=== PATIENT | male | born 1950 | race African-American/Black ===

== ENCOUNTER 2016-03-30 15:48 | Inpatient (IN) | payer MEDICARE, BC ==
[~2016-03-30] VITALS: Ht 175.3 cm; Wt 45.5 kg
[~2016-03-30 15:48] MED LIST: AMLO-145 PO; CLON-429 PO; CLON0.5T4 PO; FURO-110 PO; GABA300C16 PO; IBUP-727 PO; LOSA50TA2 PO; PANT40TA3 PO; QUET25TA26 PO; RISP2TAB93 PO; SULF1TAB7 PO; TAMS-14 PO
[2016-03-30] MEDS ORDERED: SOD CHLORIDE 0.9% 1,000 ML IV STA (15:58)
[2016-03-30 16:58] VITALS: Ht 175.3 cm; Wt 45.5 kg
[2016-03-30] MEDS ORDERED: LORAZEPAM 2 MG INJ IV ONE (17:00)
[2016-03-30 17:07] LABS: HEMATOCRIT 30.4 % (42.0-52.0); HEMOGLOBIN 9.9 g/dl (14.0-18.0); MEAN CORPUSCULAR HEMOGLOBIN 27.6 pg (29.0-33.0); MEAN CORPUSCULAR HGB CONC 32.6 g/dl (32.0-37.0); MEAN CORPUSCULAR VOLUME 84.7 fl (82.0-101.0); MEAN PLATELET VOLUME 8.6 fl (7.4-10.4); PLATELET COUNT 113 10^3/UL (140-440); RED BLOOD COUNT 3.58 10^6/ul (4.70-6.10); RED CELL DISTRIBUTION WIDTH 19.3 % (11.5-14.5); WHITE BLOOD COUNT 6.6 10^3/ul (4.8-10.8)
[2016-03-30 17:13] LABS: ALBUMIN 3.1 g/dl (3.3-4.9); CHLORIDE 97 mmol/L (97-110)
[2016-03-30 17:14] LABS: POTASSIUM 5.1 mmol/L (3.5-5.1); SODIUM 139 mmol/L (135-144)
[2016-03-30 17:15] LABS: INR 1.11; PROTIME 14.3 Sec (12.2-14.2); PT RATIO 1.1
[2016-03-30 17:16] LABS: ALANINE AMINOTRANSFERASE 16 IU/L (13-69); ALBUMIN/GLOBULIN RATIO 0.83; ALKALINE PHOSPHATASE 84 IU/L (42-121); ANION GAP 14 (8-16); ASPARTATE AMINO TRANSFERASE 22 IU/L (15-46); BILIRUBIN,INDIRECT 0.2 mg/dl (0-1.1); BILIRUBIN,TOTAL 0.2 mg/dl (0.2-1.3); BLOOD UREA NITROGEN 24 mg/dl (7-20); CALCIUM 8.9 mg/dl (8.4-10.2); CARBON DIOXIDE 33 mmol/L (21-31); CREATININE 0.42 mg/dl (0.61-1.24); GLUCOSE 74 mg/dl (70-220); TOTAL PROTEIN 6.8 g/dl (6.1-8.1)
[2016-03-30 17:18] LABS: ADD UMIC YES; URINE BILIRUBIN (Dip) NEGATIVE (NEGATIVE); URINE BLOOD (Dip) 1+ (NEGATIVE); URINE COLOR LT. YELLOW (YELLOW); URINE GLUCOSE (Dip) NEGATIVE (NEGATIVE); URINE KETONES (Dip) NEGATIVE (NEGATIVE); URINE LEUKOCYTE ESTERASE (Dip) 3+ (NEGATIVE); URINE NITRITE (Dip) POSITIVE (NEGATIVE); URINE TOTAL PROTEIN (Dip) 1+ (NEGATIVE); URINE UROBILINOGEN (Dip) 4.0 E.U./dL (0.1-1.0)
--- NOTE | 2016-03-30 17:21 | RADRPT ---
PROCEDURE: XR Chest. CLINICAL INDICATION: Abdominal pain. TECHNIQUE: Single frontal view of the chest was obtained COMPARISON: No. FINDINGS: There is atelectasis in the left lower lobe with elevation of the left diaphragm. There is fecal ma terial in the transverse colon which projects to the left heart border. There are infiltrates in th e left hilar area. There is compensatory hyperaeration of the right lung with a tracheostomy tube w ell positioned at T3. The bony elements rarefied with degenerative changes in the thoracic spine. IMPRESSION: 1. There is atelectasis in the lingula and left lower lobe with apparent elevation left diaphragm. Left perihilar infiltrates/atelectasis are also noted. These findings might be associated with a muc ous plug or obstruction due to an obscured mass. Follow-up imaging is recommended to ensure clearin g. 2. Satisfactory positioning of the tracheostomy tube. 3. Osteoarthritis of the thoracic spine. RPTAT:AAJJ Physician Bev Date Time Electronically viewed and signed by Physician Bev on 03/30/2016 17:21 IGOR/
[2016-03-30 17:26] LABS: CONDITION 1; LH ANALYZER COMMENTS 1; SUSPECT 1; UNCORRECTED WBC 7.2 10^3/ul (4.8-10.8)
[2016-03-30 17:29] LABS: TROPONIN-I < 0.012 ng/ml (0.00-0.12)
[2016-03-30 17:34] LABS: BACTERIA,URINE MANY
[2016-03-30 17:36] LABS: SQUAMOUS EPITHELIAL CELL,UR OCCASIONAL
[2016-03-30] MEDS ORDERED: ACET-2047 GTB (17:50)
[2016-03-30] MEDS ORDERED: ACET-141 GTB (17:50)
[2016-03-30] MEDS ORDERED: ASC500 GTB (17:51)
[2016-03-30] MEDS ORDERED: BISA5TAB6 GTB (17:52)
[2016-03-30] MEDS ORDERED: CALC-459 GTB (17:55)
[2016-03-30] MEDS ORDERED: CHLO473M4 MM (17:58)
[2016-03-30] MEDS ORDERED: IPRA3AMP INHALATION (17:59)
[2016-03-30] MEDS ORDERED: CEFEPIME 1GM/50 ML (PMX) 50 ML IVPB ONE (18:00)
[2016-03-30] MEDS ORDERED: LOV30I SC (18:01)
[2016-03-30 18:03] LABS: LYMPHOCYTES # 0.9 10^3/ul (0.8-2.9); MONOCYTE # 0.5 10^3/ul (0.3-0.9); NEUTROPHIL # 5.3 10^3/ul (1.6-7.5)
[2016-03-30] MEDS ORDERED: UDFER GTB (18:03)
[2016-03-30] MEDS ORDERED: FLEETPED PR (18:03)
[2016-03-30 18:04] LABS: ANISOCYTOSIS 2+; HYPOCHROMASIA 1+
[2016-03-30 18:05] LABS: PLATELET ESTIMATE PLT APPEAR ADEQUATE
[2016-03-30] MEDS ORDERED: LACT20SO2 GTB (18:05)
[2016-03-30] MEDS ORDERED: LORA1TAB GTB (18:06)
[2016-03-30] MEDS ORDERED: MULT-105 GTB (18:07)
[2016-03-30] MEDS ORDERED: HYDR-906 GTB (18:09)
[2016-03-30] MEDS ORDERED: AMIN30LI3 GTB (18:10)
[2016-03-30] MEDS ORDERED: PROT946L GTB (18:12)
[2016-03-30] MEDS ORDERED: QUET25TA33 GTB (18:13)
[2016-03-30] MEDS ORDERED: QUET200T27 GTB (18:13)
[2016-03-30] MEDS ORDERED: SENN-53 GTB (18:15)
[2016-03-30] MEDS ORDERED: THIA100T10 GTB (18:15)
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
[2016-03-30 22:25] VITALS: PULSE 79
[2016-03-30] MEDS ORDERED: NA PHOSPHATE/BIPHOS 66.6 ML ENEMA PR PRN (23:30)
[2016-03-30] MEDS ORDERED: HYDROCODONE/APAP (5/325) TAB GTB PRN (23:30)
[2016-03-30] MEDS ORDERED: ACETAMINOPHEN 500 MG TAB PO PRN (23:30)
[2016-03-30] MEDS ORDERED: BISACODYL (EC) 5 MG TAB PO PRN (23:30)
[2016-03-30] MEDS ORDERED: ALBUTEROL/IPRATROPIUM (NEB) 3 ML AMP HHN SCH (23:30)
[2016-03-31] VITALS (13 sets, daily range): BP systolic 91–163; BP diastolic 57–90; PULSE 71–98; RESP 15–25
[2016-03-31] MEDS: CHLORHEXIDINE GLUCONATE 15 ML UD CUP MM SCH ×3 (00:32→21:15)
[2016-03-31] MEDS: FERROUS SULFATE 60 MG/ML 5ML CUP GTB SCH ×3 (00:32→21:15)
[2016-03-31] MEDS: SOD CHLORIDE 0.45% 1,000 ML IV SCH ×2 (00:33→16:10)
[2016-03-31] MEDS: QUETIAPINE 25 MG TAB GTB SCH ×2 (00:33→10:05)
[2016-03-31] MEDS: LORAZEPAM 1 MG TAB GTB SCH ×4 (00:46→17:51)
[2016-03-31] MEDS ORDERED: ALBUTEROL/IPRATROPIUM (NEB) 3 ML AMP HHN PRN (01:30)
[2016-03-31] MEDS: ALBUTEROL/IPRATROPIUM (NEB) 3 ML AMP HHN SCH ×4 (01:48→19:55)
[2016-03-31] MEDS ORDERED: PROTEIN HYDROLYS GTB SCH (09:00)
[2016-03-31] MEDS ORDERED: AMINO ACIDS GTB SCH (09:00)
[2016-03-31] MEDS ORDERED: [UNRECOGNIZED DRUG - OTHER] GTB SCH (09:00)
[2016-03-31] MEDS: LACTULOSE 30ML CUP GTB SCH (10:05)
[2016-03-31] MEDS: ASCORBIC ACID 500 MG TAB GTB SCH (10:05)
[2016-03-31] MEDS: THIAMINE 100 MG TAB GTB SCH (10:05)
[2016-03-31] MEDS: CALCIUM CARBONATE 1.25 GM TAB PO SCH (10:05)
[2016-03-31] MEDS: MULTIVITAMINS/MINERALS TAB PO SCH (10:05)
[2016-03-31] MEDS: ENOXAPARIN 30 MG/0.3 ML SYG SC SCH (10:41)
[2016-03-31] MEDS: CEFEPIME 1GM/50 ML (PMX) 50 ML IVPB SCH (10:47)
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
[2016-03-31] MEDS: ACETAMINOPHEN 325 MG TAB GTB PRN (17:52)
[2016-03-31] MEDS: SENNA TAB GTB SCH (21:15)
[2016-03-31] MEDS: QUETIAPINE 100 MG TAB GTB SCH (21:15)
[2016-04-01] VITALS (12 sets, daily range): BP systolic 83–137; BP diastolic 52–79; PULSE 77–103; RESP 18–24
[2016-04-01] MEDS: LORAZEPAM 1 MG TAB GTB SCH ×4 (00:12→17:50)
[2016-04-01] MEDS: ALBUTEROL/IPRATROPIUM (NEB) 3 ML AMP HHN SCH ×4 (01:28→19:32)
[2016-04-01 06:59] LABS: POTASSIUM 4.1 mmol/L (3.5-5.1)
[2016-04-01 07:02] LABS: CREATININE 0.37 mg/dl (0.61-1.24)
[2016-04-01 07:03] LABS: CALCIUM 8.4 mg/dl (8.4-10.2)
[2016-04-01 07:12] LABS: BASOPHILS % 0.2 % (0.0-2.0); HEMATOCRIT 28.9 % (42.0-52.0); HEMOGLOBIN 9.5 g/dl (14.0-18.0); LYMPHOCYTES # 0.8 10^3/ul (0.8-2.9); LYMPHOCYTES % 12.4 % (15.0-51.0); MEAN CORPUSCULAR HEMOGLOBIN 28.1 pg (29.0-33.0); MEAN CORPUSCULAR HGB CONC 32.9 g/dl (32.0-37.0); MEAN CORPUSCULAR VOLUME 85.5 fl (82.0-101.0); MEAN PLATELET VOLUME 9.3 fl (7.4-10.4); MONOCYTE # 0.7 10^3/ul (0.3-0.9); MONOCYTES % 10.8 % (0.0-11.0); NEUTROPHIL # 5.1 10^3/ul (1.6-7.5); NEUTROPHILS % 76.6 % (39.0-77.0); PLATELET COUNT 243 10^3/UL (140-440); RED BLOOD COUNT 3.38 10^6/ul (4.70-6.10); RED CELL DISTRIBUTION WIDTH 18.5 % (11.5-14.5); UNCORRECTED WBC 6.6 10^3/ul (4.8-10.8); WHITE BLOOD COUNT 6.6 10^3/ul (4.8-10.8)
[2016-04-01 07:23] LABS: CONDITION 1; LH ANALYZER COMMENTS 1
[2016-04-01] MEDS: MULTIVITAMINS/MINERALS TAB PO SCH (09:28)
[2016-04-01] MEDS: LACTULOSE 30ML CUP GTB SCH (09:28)
[2016-04-01] MEDS: QUETIAPINE 25 MG TAB GTB SCH ×2 (09:28→17:50)
[2016-04-01] MEDS: FERROUS SULFATE 60 MG/ML 5ML CUP GTB SCH ×2 (09:28→21:00)
[2016-04-01] MEDS: ASCORBIC ACID 500 MG TAB GTB SCH (09:28)
[2016-04-01] MEDS: CALCIUM CARBONATE 1.25 GM TAB PO SCH (09:28)
[2016-04-01] MEDS: CHLORHEXIDINE GLUCONATE 15 ML UD CUP MM SCH ×2 (09:28→21:00)
[2016-04-01] MEDS: FAMOTIDINE 20 MG TAB PO SCH (09:29)
[2016-04-01] MEDS: THIAMINE 100 MG TAB GTB SCH (09:29)
--- NOTE | 2016-04-01 10:01 | PN ---
Date/Time of Note Date/Time of Note DATE: 04/01/16 TIME: 09:48 Assessment/Plan VTE Prophylaxis VTE Prophylaxis Intervention: LMWH Lines/Catheters IV C[facility]ter Type [facility] Peripheral IV Urinary Cath still in place: No Assessment/Plan Assessment/Plan 1. Urinary tract infection per urinalysis. We will follow up on urine cultures. Obtain blood cultures. Continue the patient on cefepime. Continue IV fluids. 2. Acute encephalopathy secondary to #1. 3. Dehydration. 4. Dislodgement of G-tube, status post insertion of new G-tube. We will restart the feedings, monitor residual. Continue aspiration precautions. 5. Chronic respiratory failure with tracheostomy. Continue tracheostomy care, oxygen and bronchodilators. Continue Lovenox for deep venous thrombosis prophylaxis. Further recommendations based on clinical course. Plan of care discussed with Dr. Colunga. Subjective 24 Hr Interval Summary Free Text/Dictation nad, alert, seems comfortable. dw staff. Eyes: no complaints Respiratory: no complaints Exam/Review of Systems Vital Signs Vitals Vital Signs Date Time Temp Pulse Resp B/P Pulse Ox O2 Delivery O2 Flow Rate FiO2 04/01/16 08:45 98 10.0 60 04/01/16 08:38 93 20 Aerosol T Tube 04/01/16 07:22 98.2 90/52 Intake and Output 03/31/16 03/31/16 04/01/16 15:00 23:00 07:00 Intake Total 900 ml 1100 ml Output Total 200 ml 350 ml Balance 700 ml 750 ml Exam Constitutional: alert, frail Psych: no complaints Eyes: EOMI, PERRL, nl sclera ENMT: nl external ears & nose Neck: non-tender Respiratory: diminished breath sounds Cardiovascular: nl pulses Gastrointestinal: non-tender, soft Musculoskeletal: muscle weakness Neurological: confused Lymph: nontender Results Result Diagram: 04/01/16 0540 04/01/16 0540 Results 24 hrs Laboratory Tests Test 04/01/16 05:40 Anion Gap 12 Basophils # 0.0 Basophils % 0.2 Blood Morphology Comment Blood Urea Nitrogen 19 Calcium Level 8.4 Carbon Dioxide Level 28 Chloride Level 99 Creatinine 0.37 L Eosinophils # 0.0 Eosinophils % 0.0 Glucose Level 165 Hematocrit 28.9 L Hemoglobin 9.5 L Lymphocytes # 0.8 Lymphocytes % 12.4 L Mean Corpuscular Hemoglobin 28.1 L Mean Corpuscular Hemoglobin Concent 32.9 Mean Corpuscular Volume 85.5 Mean Platelet Volume 9.3 Monocytes # 0.7 Monocytes % 10.8 Neutrophils # 5.1 Neutrophils % 76.6 Nucleated Red Blood Cells # 0.0 Nucleated Red Blood Cells % 0.0 Platelet Count 243 # Potassium Level 4.1 Red Blood Count 3.38 L Red Cell Distribution Width 18.5 H Sodium Level 135 White Blood Count 6.6 Medications Medications Current Medications Acetaminophen (Tylenol Tab) 1,000 mg Q8H PRN PO PAIN LEVEL 1-5; Start 03/30/16 at 23:30 Acetaminophen (Tylenol Tab) 650 mg Q6H PRN GTB FEVER >101 Last administered on 03/31/16 17:52; Admin Dose 650 MG; Start 03/30/16 at 23:30 Ascorbic Acid (Vitamin C) 500 mg DAILY GTB Last administered on 03/31/16 10:05 ; Admin Dose 500 MG; Start 03/31/16 at 09:00 Bisacodyl (Dulcolax) 10 mg DAILY PRN PO CONSTIPATION; Start 03/30/16 at 23:30 Chlorhexidine Gluconate (Peridex) 15 ml BID MM Last administered on 03/31/16 21 :15; Admin Dose 15 ML; Start 03/30/16 at 23:30 Enoxaparin Sodium (Lovenox) 30 mg DAILY SC Last administered on 03/31/16 10:41 ; Admin Dose 30 MG; Start 03/31/16 at 09:00 Ferrous Sulfate (Feosol Liquid Cup) 300 mg BID GTB Last administered on 21:15; Admin Dose 300 MG; Start 03/30/16 at 23:30 Acetaminophen/ Hydrocodone Bitart ([place] (5/325)) 3.25 tab Q4 PRN GTB PAIN LEVEL 6-10; Start 03/30/16 at 23:30 Lactulose (Enulose) 20 gm DAILY GTB Last administered on 03/31/16 10:05; Admin Dose 20 GM; Start 03/31/16 at 09:00 Lorazepam (Ativan) 1 mg Q6 GTB Last administered on 04/01/16 05:40; Admin Dose 1 MG; Start 03/31/16 at 00:00 Quetiapine Fumarate (Seroquel) 200 mg HS GTB Last administered on 03/31/16 21: 15; Admin Dose 200 MG; Start 03/31/16 at 21:00 Senna (Senokot) 1 tab QHS GTB Last administered on 03/31/16 21:15; Admin Dose 1 TAB; Start 03/31/16 at 21:00 Sodium Biphosphate/ Sodium Phosphate (Fleet Enema Pediatric) 66.6 ml DAILY PRN [place] CONSTIPATION; Start 03/30/16 at 23:30 Thiamine HCl (Vitamin B1) 100 mg DAILY GTB Last administered on 03/31/16 10:05 ; Admin Dose 100 MG; Start 03/31/16 at 09:00 Calcium Carbonate ([place] Calcium) 1.25 gm DAILY PO Last administered on 03/31/16 10:05; Admin Dose 1.25 GM; Start 03/31/16 at 09:00 Multivitamins/ Minerals 1 tab 1 tab DAILY PO Last administered on 03/31/16 10: 05; Admin Dose 1 TAB; Start 03/31/16 at 09:00 Cefepime HCl 50 ml @ 100 mls/hr DAILY IVPB Last administered on 03/31/16 10:47 ; Admin Dose 100 MLS/HR; Start 03/31/16 at 09:00 Sodium Chloride (1/2 NS) 1,000 ml @ 60 mls/hr [id number] IV Last administered on 03/31/16 16:10; Admin Dose 60 MLS/HR; Start 03/30/16 at 23:30 Albuterol/ Ipratropium (Duoneb) 3 ml Q2H PRN HHN WHEEZING AND SOB; Start at 01:30 Influenza Virus Vaccine (Fluzone) 0.5 ml ONCE ONCE IM* ; Start 04/02/16 at 09:00 ; Stop 04/02/16 at 09:01 Lorazepam (Ativan) 0.5 mg Q6H PRN IV ANXIETY; Start 03/31/16 at 08:00 Famotidine (Pepcid) 20 mg DAILY PO ; Start 04/01/16 at 09:00 Quetiapine Fumarate (Seroquel) 25 mg GTB ; Start 04/01/16 at 09:00 BRENT KENDRICK Apr 01, 2016 09:50
[2016-04-01] MEDS: ENOXAPARIN 30 MG/0.3 ML SYG SC SCH (10:02)
[2016-04-01] MEDS: CEFEPIME 1GM/50 ML (PMX) 50 ML IVPB SCH (10:05)
[2016-04-01] MEDS: ACETAMINOPHEN 325 MG TAB GTB PRN (10:06)
[2016-04-01] MEDS: SOD CHLORIDE 0.45% 1,000 ML IV SCH (10:07)
[2016-04-01] MEDS: SENNA TAB GTB SCH (21:00)
[2016-04-01] MEDS: QUETIAPINE 100 MG TAB GTB SCH (21:00)
[2016-04-02] VITALS (10 sets, daily range): BP systolic 102–194; BP diastolic 67–89; PULSE 86–116; RESP 17–20
[2016-04-02] MEDS: LORAZEPAM 1 MG TAB GTB SCH ×5 (00:13→23:13)
[2016-04-02] MEDS: SOD CHLORIDE 0.45% 1,000 ML IV SCH ×2 (01:30→16:27)
[2016-04-02] MEDS: ALBUTEROL/IPRATROPIUM (NEB) 3 ML AMP HHN SCH ×4 (01:57→20:02)
[2016-04-02] MEDS: LORAZEPAM 2 MG INJ IV PRN (02:46)
[2016-04-02] MEDS ORDERED: INFLUENZA VIRUS VACCINE 0.5 ML (DISPENSING) IM* ONE (09:00)
[2016-04-02] MEDS: FAMOTIDINE 20 MG TAB PO SCH (09:44)
[2016-04-02] MEDS: LACTULOSE 30ML CUP GTB SCH (09:44)
[2016-04-02] MEDS: CHLORHEXIDINE GLUCONATE 15 ML UD CUP MM SCH ×2 (09:44→20:52)
[2016-04-02] MEDS: FERROUS SULFATE 60 MG/ML 5ML CUP GTB SCH ×2 (09:44→20:52)
[2016-04-02] MEDS: MULTIVITAMINS/MINERALS TAB PO SCH (09:45)
[2016-04-02] MEDS: ASCORBIC ACID 500 MG TAB GTB SCH (09:45)
[2016-04-02] MEDS: THIAMINE 100 MG TAB GTB SCH (09:45)
[2016-04-02] MEDS: CEFEPIME 1GM/50 ML (PMX) 50 ML IVPB SCH (09:45)
[2016-04-02] MEDS: CALCIUM CARBONATE 1.25 GM TAB PO SCH (09:45)
[2016-04-02] MEDS: QUETIAPINE 25 MG TAB GTB SCH ×2 (10:00→17:14)
[2016-04-02] MEDS: ENOXAPARIN 30 MG/0.3 ML SYG SC SCH (10:05)
[2016-04-02] MEDS: QUETIAPINE 100 MG TAB GTB SCH ×2 (10:09→20:52)
--- NOTE | 2016-04-02 11:14 | PN ---
Date/Time of Note Date/Time of Note DATE: 04/02/16 TIME: 11:09 Assessment/Plan VTE Prophylaxis VTE Prophylaxis Intervention: SCD's Lines/Catheters IV Catheter Type (from Nrs): Peripheral IV Urinary Cath still in place: Yes Reason Cath still needed: urinary retention Assessment/Plan Chief Complaint/Hosp Course ASSESSMENT AND PLAN: 1. GNR urinary tract infection. Follow up on final urine cultures. Continue the patient on cefepime. Change Rae. If any issues with inserting new Rae arise will ask for urology consult Dr Lauren. 2. Acute encephalopathy secondary to #1, resolved. 3. Dehydration, resolved. 4. Dislodgement of G-tube, status post insertion of new G-tube. We will restart the feedings, monitor residual. Continue aspiration precautions. 5. Chronic respiratory failure with tracheostomy. Continue tracheostomy care, oxygen and bronchodilators. 6. Anemia, check stool for OB. Continue Lovenox for deep venous thrombosis prophylaxis. Further recommendations based on clinical course. Plan of care discussed with Dr. Colunga. Problems: Subjective 24 Hr Interval Summary Free Text/Dictation Patient is comfortable breathing on T-tube with cool aerosol mist via trach, awake, alert, denies pain. Exam/Review of Systems Vital Signs Vitals Vital Signs Date Time Temp Pulse Resp B/P Pulse Ox O2 Delivery O2 Flow Rate FiO2 04/02/16 08:44 105 28 98 Aerosol 12.0 60 04/02/16 07:47 97.9 194/89 Intake and Output 04/01/16 04/01/16 04/02/16 15:00 23:00 07:00 Intake Total 1050 ml 700 ml 700 ml Output Total 250 ml Balance 1050 ml 450 ml 700 ml Exam GENERAL: A well-developed, cachectic male, currently is lethargic but easily arousable, awake, alert to name. HEENT: Head is atraumatic, normocephalic. PERRLA. NECK: Supple. The patient has a tracheostomy at the base of the neck. The patient is currently on tracheostomy to a T-tube with cool aerosol mist. CHEST: The patient's lungs diminished at the bases, scattered rhonchi bilaterally. CARDIOVASCULAR: Normal S1, S2. No murmurs, gallops, clicks, rubs noted. ABDOMEN: Flat, soft, nondistended, nontender. The patient has a G-tube in place. EXTREMITIES: There is no edema, clubbing, cyanosis. Pulses equal bilaterally, 2+. The patient's extremities are contracted. SKIN: The patient has multiple pressure sores present on admission. NEUROLOGIC: The patient is awake, alert and oriented to name and situation. Results Result Diagram: 04/01/1640 04/01/16 0540 Medications Medications Current Medications Acetaminophen (Tylenol Tab) 1,000 mg Q8H PRN PO PAIN LEVEL 1-5; Start 03/30/16 at 23:30 Acetaminophen (Tylenol Tab) 650 mg Q6H PRN GTB FEVER >101 Last administered on 04/01/16 10:06; Admin Dose 650 MG; Start 03/30/16 at 23:30 Ascorbic Acid (Vitamin C) 500 mg DAILY GTB Last administered on 04/02/16 09:45 ; Admin Dose 500 MG; Start 03/31/16 at 09:00 Bisacodyl (Dulcolax) 10 mg DAILY PRN PO CONSTIPATION; Start 03/30/16 at 23:30 Chlorhexidine Gluconate (Peridex) 15 ml BID MM Last administered on 04/02/16 09:44; Admin Dose 15 ML; Start 03/30/16 at 23:30 Enoxaparin Sodium (Lovenox) 30 mg DAILY SC Last administered on 04/02/16 10:05 ; Admin Dose 30 MG; Start 03/31/16 at 09:00 Ferrous Sulfate (Feosol Liquid Cup) 300 mg BID GTB Last administered on 09:44; Admin Dose 300 MG; Start 03/30/16 at 23:30 Acetaminophen/ Hydrocodone Bitart ([place] (5/325)) 3.25 tab Q4 PRN GTB PAIN LEVEL 6-10; Start 03/30/16 at 23:30 Lactulose (Enulose) 20 gm DAILY GTB Last administered on 04/02/16 09:44; Admin Dose 20 GM; Start 03/31/16 at 09:00 Lorazepam (Ativan) 1 mg Q6 GTB Last administered on 04/02/16 05:48; Admin Dose 1 MG; Start 03/31/16 at 00:00 Quetiapine Fumarate (Seroquel) 200 mg HS GTB Last administered on 04/02/16 10: 09; Admin Dose 200 MG; Start 03/31/16 at 21:00 Senna (Senokot) 1 tab QHS GTB Last administered on 04/01/16 21:00; Admin Dose 1 TAB; Start 03/31/16 at 21:00 Sodium Biphosphate/ Sodium Phosphate (Fleet Enema Pediatric) 66.6 ml DAILY PRN [place] CONSTIPATION; Start 03/30/16 at 23:30 Thiamine HCl (Vitamin B1) 100 mg DAILY GTB Last administered on 04/02/16 09:45 ; Admin Dose 100 MG; Start 03/31/16 at 09:00 Calcium Carbonate (Oyster Shell Calcium) 1.25 gm DAILY PO Last administered on 04/02/16 09:45; Admin Dose 1.25 GM; Start 03/31/16 at 09:00 Multivitamins/ Minerals 1 tab 1 tab DAILY PO Last administered on 04/02/16 09: 45; Admin Dose 1 TAB; Start 03/31/16 at 09:00 Cefepime HCl 50 ml @ 100 mls/hr DAILY IVPB Last administered on 04/02/16 09: 45; Admin Dose 100 MLS/HR; Start 03/31/16 at 09:00 Sodium Chloride (1/2 NS) 1,000 ml @ 60 mls/hr [id number] IV Last administered on 04/02/16 01:30; Admin Dose 60 MLS/HR; Start 03/30/16 at 23:30 Albuterol/ Ipratropium (Duoneb) 3 ml Q2H PRN HHN WHEEZING AND SOB; Start at 01:30 Lorazepam (Ativan) 0.5 mg Q6H PRN IV ANXIETY Last administered on 04/02/16 02: 46; Admin Dose 0.5 MG; Start 03/31/16 at 08:00 Famotidine (Pepcid) 20 mg DAILY PO Last administered on 04/02/16 09:44; Admin Dose 20 MG; Start 04/01/16 at 09:00 Quetiapine Fumarate (Seroquel) 25 mg GTB Last administered on 04/02/16 10:00; Admin Dose 25 MG; Start 04/01/16 at 09:00 SHELBY BUNCH Apr 02, 2016 11:14
[2016-04-02] MEDS: SENNA TAB GTB SCH (20:52)
[2016-04-03] VITALS (13 sets, daily range): BP systolic 108–138; BP diastolic 63–85; PULSE 71–120; RESP 15–20
[2016-04-03] MEDS: ALBUTEROL/IPRATROPIUM (NEB) 3 ML AMP HHN SCH ×4 (01:33→20:20)
[2016-04-03] MEDS: LORAZEPAM 1 MG TAB GTB SCH ×3 (05:24→17:18)
[2016-04-03 07:20] LABS: ADD SCAN DIFF NO
[2016-04-03 07:29] LABS: BASOPHILS % 0.6 % (0.0-2.0); EOSINOPHILS # 0.1 10^3/ul (0.0-0.5); EOSINOPHILS % 1.5 % (0.0-7.0); HEMATOCRIT 26.7 % (42.0-52.0); HEMOGLOBIN 8.4 g/dl (14.0-18.0); LYMPHOCYTES # 0.9 10^3/ul (0.8-2.9); LYMPHOCYTES % 23.7 % (15.0-51.0); MEAN CORPUSCULAR HEMOGLOBIN 27.3 pg (29.0-33.0); MEAN CORPUSCULAR HGB CONC 31.5 g/dl (32.0-37.0); MEAN CORPUSCULAR VOLUME 86.9 fl (82.0-101.0); MEAN PLATELET VOLUME 8.9 fl (7.4-10.4); MONOCYTE # 0.4 10^3/ul (0.3-0.9); MONOCYTES % 10.7 % (0.0-11.0); NEUTROPHIL # 2.4 10^3/ul (1.6-7.5); NEUTROPHILS % 63.5 % (39.0-77.0); PLATELET COUNT 207 10^3/UL (140-440); RED BLOOD COUNT 3.07 10^6/ul (4.70-6.10); RED CELL DISTRIBUTION WIDTH 18.8 % (11.5-14.5); WHITE BLOOD COUNT 3.8 10^3/ul (4.8-10.8)
[2016-04-03 07:36] LABS: POTASSIUM 4.4 mmol/L (3.5-5.1)
[2016-04-03 07:38] LABS: CREATININE 0.31 mg/dl (0.61-1.24)
[2016-04-03 07:39] LABS: CALCIUM 8.4 mg/dl (8.4-10.2)
[2016-04-03] MEDS: CALCIUM CARBONATE 1.25 GM TAB PO SCH (08:29)
[2016-04-03] MEDS: FERROUS SULFATE 60 MG/ML 5ML CUP GTB SCH ×2 (08:29→21:29)
[2016-04-03] MEDS: CHLORHEXIDINE GLUCONATE 15 ML UD CUP MM SCH ×2 (08:29→21:29)
[2016-04-03] MEDS: LACTULOSE 30ML CUP GTB SCH (08:29)
[2016-04-03] MEDS: FAMOTIDINE 20 MG TAB PO SCH (08:29)
[2016-04-03] MEDS: ASCORBIC ACID 500 MG TAB GTB SCH (08:29)
[2016-04-03] MEDS: THIAMINE 100 MG TAB GTB SCH (08:29)
[2016-04-03] MEDS: CEFEPIME 1GM/50 ML (PMX) 50 ML IVPB SCH (08:30)
[2016-04-03] MEDS: QUETIAPINE 25 MG TAB GTB SCH ×2 (08:39→17:18)
[2016-04-03] MEDS: ENOXAPARIN 30 MG/0.3 ML SYG SC SCH (08:47)
[2016-04-03] MEDS: MULTIVITAMINS/MINERALS TAB PO SCH (08:51)
[2016-04-03 10:04] LABS: MAGNESIUM 1.8 mg/dl (1.7-2.5)
[2016-04-03 10:48] LABS: THYROID STIMULATING HORMONE 1.52 MIU/L (0.465-4.680)
[2016-04-03] MEDS: SOD CHLORIDE 0.45% 1,000 ML IV SCH (10:50)
--- NOTE | 2016-04-03 12:03 | PN ---
Date/Time of Note Date/Time of Note DATE: 04/03/16 TIME: 12:01 Assessment/Plan VTE Prophylaxis VTE Prophylaxis Intervention: LMWH Lines/Catheters [facility] Peripheral IV Urinary Cath still in place: Yes Assessment/Plan Assessment/Plan 1. Urinary tract infection per urinalysis. We will follow up on urine cultures. Obtain blood cultures. Continue the patient on cefepime. Continue IV fluids. 2. Acute encephalopathy secondary to #1. 3. Dehydration. 4. Dislodgement of G-tube, status post insertion of new G-tube. We will restart the feedings, monitor residual. Continue aspiration precautions. 5. Chronic respiratory failure with tracheostomy. Continue tracheostomy care, oxygen and bronchodilators. 6. Asymptomatic Tachycardia - cardiology consult appreciated- Dr Espitia informed - fu Echo Continue Lovenox for deep venous thrombosis prophylaxis. Further recommendations based on clinical course. Plan of care discussed with Dr. Colunga. Subjective 24 Hr Interval Summary Constitutional: requiring O2 Eyes: no complaints ENT: no complaints Respiratory: no complaints Cardiovascular: no complaints Gastrointestinal: no complaints Genitourinary: no complaints Musculoskeletal: no complaints Skin: no complaints Neurologic: no complaints Endocrine: no complaints Lymphatic: no complaints Psychological: no complaints Immunologic: no complaints Exam/Review of Systems Vital Signs Vitals Vital Signs Date Time Temp Pulse Resp B/P Pulse Ox O2 Delivery O2 Flow Rate FiO2 04/03/16 11:50 97.9 75 18 132/85 100 04/03/16 10:18 Aerosol 8.0 35 Intake and Output 04/02/16 04/02/16 04/03/16 14:59 22:59 06:59 Intake Total 50 ml 700 ml 600 ml Output Total 350 ml 450 ml Balance 50 ml 350 ml 150 ml Exam Constitutional: alert, other Psych: nl mood/affect Eyes: EOMI, PERRL, nl sclera ENMT: nl external ears & nose, other (trach intact) Neck: non-tender Respiratory: clear to auscultation Cardiovascular: nl pulses Gastrointestinal: non-tender, soft Extremities: normal pulses Neurological: other Skin: other Lymph: nontender Results Result Diagram: 04/03/16 0622 04/03/16 0622 Results 24 hrs Laboratory Tests Test 04/03/16 06:22 Anion Gap 8 Basophils # 0.0 Basophils % 0.6 Blood Morphology Comment Blood Urea Nitrogen 12 Calcium Level 8.4 Carbon Dioxide Level 32 H Chloride Level 101 Creatinine 0.31 L Eosinophils # 0.1 Eosinophils % 1.5 Glucose Level 92 Hematocrit 26.7 L Hemoglobin 8.4 L Lymphocytes # 0.9 Lymphocytes % 23.7 Magnesium Level 1.8 Mean Corpuscular Hemoglobin 27.3 L Mean Corpuscular Hemoglobin Concent 31.5 L Mean Corpuscular Volume 86.9 Mean Platelet Volume 8.9 Monocytes # 0.4 Monocytes % 10.7 Neutrophils # 2.4 Neutrophils % 63.5 Nucleated Red Blood Cells # 0.0 Nucleated Red Blood Cells % 0.0 Platelet Count 207 Potassium Level 4.4 Red Blood Count 3.07 L Red Cell Distribution Width 18.8 H Sodium Level 137 Thyroid Stimulating Hormone (TSH) 1.520 White Blood Count 3.8 #L Medications Medications Current Medications Acetaminophen (Tylenol Tab) 1,000 mg Q8H PRN PO PAIN LEVEL 1-5; Start 03/30/16 at 23:30 Acetaminophen (Tylenol Tab) 650 mg Q6H PRN GTB FEVER >101 Last administered on 04/01/16 10:06; Admin Dose 650 MG; Start 03/30/16 at 23:30 Ascorbic Acid (Vitamin C) 500 mg DAILY GTB Last administered on 04/03/16 08:29 ; Admin Dose 500 MG; Start 03/31/16 at 09:00 Bisacodyl (Dulcolax) 10 mg DAILY PRN PO CONSTIPATION; Start 03/30/16 at 23:30 Chlorhexidine Gluconate (Peridex) 15 ml BID MM Last administered on 04/03/16 08:29; Admin Dose 15 ML; Start 03/30/16 at 23:30 Enoxaparin Sodium (Lovenox) 30 mg DAILY SC Last administered on 04/03/16 08:47 ; Admin Dose 30 MG; Start 03/31/16 at 09:00 Ferrous Sulfate (Feosol Liquid Cup) 300 mg BID GTB Last administered on 08:29; Admin Dose 300 MG; Start 03/30/16 at 23:30 Acetaminophen/ Hydrocodone Bitart ([place] (5/325)) 3.25 tab Q4 PRN GTB PAIN LEVEL 6-10; Start 03/30/16 at 23:30 Lactulose (Enulose) 20 gm DAILY GTB Last administered on 04/03/16 08:29; Admin Dose 20 GM; Start 03/31/16 at 09:00 Lorazepam (Ativan) 1 mg Q6 GTB Last administered on 04/03/16 05:24; Admin Dose 1 MG; Start 03/31/16 at 00:00 Quetiapine Fumarate (Seroquel) 200 mg HS GTB Last administered on 04/02/16 20: 52; Admin Dose 200 MG; Start 03/31/16 at 21:00 Senna (Senokot) 1 tab QHS GTB Last administered on 04/02/16 20:52; Admin Dose 1 TAB; Start 03/31/16 at 21:00 Sodium Biphosphate/ Sodium Phosphate (Fleet Enema Pediatric) 66.6 ml DAILY PRN [place] CONSTIPATION; Start 03/30/16 at 23:30 Thiamine HCl (Vitamin B1) 100 mg DAILY GTB Last administered on 04/03/16 08:29 ; Admin Dose 100 MG; Start 03/31/16 at 09:00 Calcium Carbonate (Oyster Shell Calcium) 1.25 gm DAILY PO Last administered on 04/03/16 08:29; Admin Dose 1.25 GM; Start 03/31/16 at 09:00 Multivitamins/ Minerals 1 tab 1 tab DAILY PO Last administered on 04/03/16 08: 51; Admin Dose 1 TAB; Start 03/31/16 at 09:00 Cefepime HCl 50 ml @ 100 mls/hr DAILY IVPB Last administered on 04/03/16 08: 30; Admin Dose 100 MLS/HR; Start 03/31/16 at 09:00 Sodium Chloride (1/2 NS) 1,000 ml @ 60 mls/hr [id number] IV Last administered on 04/02/16 16:27; Admin Dose 60 MLS/HR; Start 03/30/16 at 23:30 Albuterol/ Ipratropium (Duoneb) 3 ml Q2H PRN HHN WHEEZING AND SOB; Start at 01:30 Lorazepam (Ativan) 0.5 mg Q6H PRN IV ANXIETY Last administered on 04/02/16 02: 46; Admin Dose 0.5 MG; Start 03/31/16 at 08:00 Famotidine (Pepcid) 20 mg DAILY PO Last administered on 04/03/16 08:29; Admin Dose 20 MG; Start 04/01/16 at 09:00 Quetiapine Fumarate (Seroquel) 25 mg GTB Last administered on 04/03/16 08:39; Admin Dose 25 MG; Start 04/01/16 at 09:00 BRENT KENDRICK Apr 03, 2016 12:03
[2016-04-03] MEDS: LORAZEPAM 2 MG INJ IV PRN ×2 (14:00→20:08)
[2016-04-03 15:16] LABS: BASOPHILS % 0.2 % (0.0-2.0); EOSINOPHILS # 0.1 10^3/ul (0.0-0.5); EOSINOPHILS % 1.3 % (0.0-7.0); HEMOGLOBIN 10.8 g/dl (14.0-18.0); LYMPHOCYTES # 0.7 10^3/ul (0.8-2.9); LYMPHOCYTES % 16.3 % (15.0-51.0); MEAN CORPUSCULAR HEMOGLOBIN 27.1 pg (29.0-33.0); MEAN CORPUSCULAR HGB CONC 31.7 g/dl (32.0-37.0); MEAN CORPUSCULAR VOLUME 85.4 fl (82.0-101.0); MEAN PLATELET VOLUME 7.8 fl (7.4-10.4); MONOCYTE # 0.4 10^3/ul (0.3-0.9); MONOCYTES % 9.7 % (0.0-11.0); NEUTROPHIL # 3.2 10^3/ul (1.6-7.5); NEUTROPHILS % 72.5 % (39.0-77.0); PLATELET COUNT 264 10^3/UL (140-440); RED BLOOD COUNT 3.98 10^6/ul (4.70-6.10); RED CELL DISTRIBUTION WIDTH 18.8 % (11.5-14.5); UNCORRECTED WBC 4.4 10^3/ul (4.8-10.8); WHITE BLOOD COUNT 4.4 10^3/ul (4.8-10.8)
[2016-04-03 15:36] LABS: CONDITION 1; LH ANALYZER COMMENTS 1
[2016-04-03 15:50] LABS: POTASSIUM 4.8 mmol/L (3.5-5.1)
[2016-04-03 15:52] LABS: CREATININE 0.38 mg/dl (0.61-1.24)
[2016-04-03 15:53] LABS: CALCIUM 9.1 mg/dl (8.4-10.2)
[2016-04-03] MEDS ORDERED: METOPROLOL 25 MG TAB PO SCH (21:00)
[2016-04-03] MEDS: QUETIAPINE 100 MG TAB GTB SCH (21:29)
[2016-04-03] MEDS: SENNA TAB GTB SCH (21:29)
[2016-04-04] VITALS (15 sets, daily range): BP systolic 90–133; BP diastolic 51–69; PULSE 75–110; RESP 15–20
[2016-04-04] MEDS: SOD CHLORIDE 0.45% 1,000 ML IV SCH ×3 (00:52→21:22)
[2016-04-04] MEDS: LORAZEPAM 1 MG TAB GTB SCH ×4 (00:52→17:15)
[2016-04-04] MEDS: ALBUTEROL/IPRATROPIUM (NEB) 3 ML AMP HHN SCH ×4 (01:29→19:45)
[2016-04-04] MEDS: FERROUS SULFATE 60 MG/ML 5ML CUP GTB SCH ×2 (08:59→21:21)
[2016-04-04] MEDS: LACTULOSE 30ML CUP GTB SCH (08:59)
[2016-04-04] MEDS: CHLORHEXIDINE GLUCONATE 15 ML UD CUP MM SCH ×2 (09:00→21:21)
[2016-04-04] MEDS: THIAMINE 100 MG TAB GTB SCH (09:00)
[2016-04-04] MEDS: ASCORBIC ACID 500 MG TAB GTB SCH (09:00)
[2016-04-04] MEDS: CEFEPIME 1GM/50 ML (PMX) 50 ML IVPB SCH (09:00)
[2016-04-04] MEDS: CALCIUM CARBONATE 1.25 GM TAB PO SCH (09:04)
[2016-04-04] MEDS: QUETIAPINE 25 MG TAB GTB SCH ×2 (09:04→17:49)
[2016-04-04] MEDS: MULTIVITAMINS/MINERALS TAB PO SCH (09:06)
[2016-04-04] MEDS: FAMOTIDINE 20 MG TAB PO SCH (09:09)
--- NOTE | 2016-04-04 09:10 | CONS ---
DATE OF ADMISSION: 03/30/2016 DATE OF CONSULTATION: 04/03/2016 REASON FOR CONSULTATION: Wide complex tachycardia. Assess for nonsustained ventricular tachycardia . REQUESTING PHYSICIAN: Vicente Colunga MD HISTORY OF PRESENT ILLNESS: Mr. Ford is a 65-year-old male with history of chronic respiratory fa ilure, status post tracheostomy, dysphagia, status post G-tube, lower extremity paralysis, contracti ons, anxiety, schizoaffective disorder, dementia, hypertension, BPH who initially presented with dis lodgement of the G-tube. Since admit the patient additionally is being evaluated for encephalopathy which is improving, being treated for Gram-negative percy UTI and given IV fluid hydration for dehydr ation. The patient has been monitored on telemetry and today was noted to have a wide complex tachy cardia, regular rate at about 150. At times approximately 10 to 12 beats, self-limited. Given thes e findings, cardiology consult was requested. The patient at this time does not clearly respond to questions pertaining to chest pain or shortness of breath. PAST MEDICAL HISTORY: As above in HPI. MEDICATIONS CURRENTLY IN HOSPITAL: 1. Pepcid 20 mg daily. 2. Seroquel 25 mg p.o. b.i.d. with 200 mg at bedtime. 3. Senna at bedtime. 4. Vitamin C 500 mg daily. 5. Lovenox 30 mg subq daily. 6. Thiamine 100 mg daily. 7. Calcium carbonate 1.25 grams daily. 8. Theragran. 9. Cefepime. 10. Ativan p.r.n. 11. DuoNebs. 12. Tylenol p.r.n. 13. Dulcolax p.r.n. 14. Ferrous sulfate 300 mg b.i.d. 15. Fleet Enema. 16. IV fluid hydration 60 mL/hour. ALLERGIES: CHLORPROMAZINE AND HALDOL. SOCIAL HISTORY: No current tobacco, ETOH or illicit drug use. FAMILY HISTORY: No history of sudden cardiac or early CAD. REVIEW OF SYSTEMS: As above in HPI. CONSTITUTIONAL: No fevers, chills. PULMONARY: Respiratory failure, chronic. GASTROINTESTINAL: Dysphagia, G-tube. GENITOURINARY: No hematuria. MUSCULOSKELETAL: Degenerative joint disease. PSYCHIATRIC: Positive psychiatric history. NEUROLOGIC: Altered mental state. PHYSICAL EXAMINATION: VITAL SIGNS: Temperature 97.9, blood pressure 132/85, pulse 75, respiratory rate 18, saturating 100 %. GENERAL: The patient is alert, awake, appears confused. NECK: Tracheostomy in place. CHEST: Upper airway shows some rhonchorous sounds. HEART: Regular rate and rhythm, normal S1, increased S2, 1/6 systolic murmur, nondisplaced PMI. ABDOMEN: Positive bowel sounds, soft. EXTREMITIES: No pitting edema, contracted, 1+ pulses bilaterally, posterior tibial. LABORATORY DATA: Most recent from today, white count 3.8, hemoglobin 8.4, platelet count 207, sodiu m 137, potassium 4.4, creatinine 0.21, BUN 12, TSH 1.52, INR 1.1. UA positive. IMAGING STUDIES: Chest x-ray from the 03/30/2016 revealing atelectasis, lingular and left lower lob e with apparent elevation of left diaphragm, left perihilar infiltrates. Findings may be associated mucus plug or obstruction due to obscured mass. DJD of the thoracic spine. ELECTROCARDIOGRAM: 03/30/2016: At that time revealed sinus rhythm at 184, normal axis, normal inte rvals, with no significant ST-T abnormalities. IMPRESSION: 1. Wide complex tachycardia. Rule out nonsustained ventricular tachycardia. 2. Abnormal electrocardiogram, assess for acute coronary syndrome. 3. Respiratory failure, chronic. 4. Urinary tract infection. 5. Altered mental state. 6. Anemia. 7. Leukopenia. 8. Dislodgement of gastrostomy tube, status post insertion of new gastrostomy tube. RECOMMENDATIONS: 1. At this time, would maintain the patient on telemetry monitoring to follow rhythm and rate contr ol closely. 2. Would complete a rule out for myocardial infarction to ensure the patient's wide complex tachyca rdia was not in the setting of acute coronary syndrome, concerning for nonsustained ventricular tach ycardia. 3. Initiate patient on low dose beta carl for suppression of further bouts of wide complex tachy cardia. May check a 2D echocardiogram to further assess the patient's ejection fraction, wall motio n, rule any major abnormalities and risk stratify this patient in the setting of wide complex tachyc ardia. 4. Continue the patient's current antibiotics and follow up all culture data and continue to follow the patient's volume status closely and we will additionally check a fasting lipid panel for genera l risk stratification and initiate lipid-lowering medication as necessary. Thank you for allowing me to take part in the care of this patient. I will continue to follow along very closely with you. Further recommendations will be made as the patient progresses through his inpatient hospital clinical course. Dictated By: LILI SORENSEN/DAVID Conf#: [id number] DID#: [id number]
[2016-04-04] MEDS: ENOXAPARIN 30 MG/0.3 ML SYG SC SCH (09:33)
--- NOTE | 2016-04-04 09:44 | RADRPT ---
Vent Rate: 79 bpm RR Interval: 0 msec CA Interval: 140 msec QRS Duration: 90 msec QT Interval: 416 msec QTC Interval: 477 msec P-R-T [place]: 24 - 58 - 79 degrees Normal sinus rhythm Normal ECG Electronically Signed By: Harjinder Simmons [id number]
--- NOTE | 2016-04-04 13:15 | CONS ---
Date/Time of Note Date/Time of Note DATE: 04/04/16 TIME: 13:11 Assessment/Plan Assessment/Plan Chief Complaint/Hosp Course IMPRESSION: 1. Wide complex tachycardia. Rule out nonsustained ventricular tachycardia.- negative troponin x 3/ 2. Abnormal electrocardiogram, assess for acute coronary syndrome. 3. Respiratory failure, chronic. 4. Urinary tract infection. 5. Altered mental state. 6. Anemia. 7. Leukopenia. 8. Dislodgement of gastrostomy tube, status post insertion of new gastrostomy tube. Recc: -Tele -Continue BB -Continue abx's/ F/U cx data Problems: Consultation Date/Type/Reason Admit Date/Time Mar 30, 2016 at 17:54 Initial Consult Date 04/03/2016 Type of Consultation: cardiology Reason for Consultation NSVT Referring Provider: ANNETTA AGUILAR MD Exam/Review of Systems Vital Signs Vitals Vital Signs Date Time Temp Pulse Resp B/P Pulse Ox O2 Delivery O2 Flow Rate FiO2 04/04/16 12:27 79 04/04/16 11:43 97.5 20 90/53 100 04/04/16 08:39 Aerosol 8.0 35 T Tube Intake and Output 04/03/16 04/03/16 04/04/16 15:00 23:00 07:00 Intake Total 1680 ml 1570 ml Output Total 100 ml 1050 ml Balance 1580 ml 520 ml Exam Review of Systems: CONSTITUTIONAL: No fevers, chills. PULMONARY: trached CARDIOVASCULAR: No chest pain/palpitations GASTROINTESTINAL: No nausea/vomiting. GENITOURINARY: No hematuria/dysuria. MUSCULOSKELETAL: No myagias/arthalgias. PSYCHIATRIC: The patient denies depression. NEUROLOGIC: No weakness Constitutional: alert Psych: confusion, no complaints ENMT: other (trached) Neck: jvd (8-9 cm water), supple Respiratory: diminished breath sounds (at bases/B) Cardiovascular: regular rate and rhythm Gastrointestinal: non-tender, soft Musculoskeletal: muscle tone (normal) Extremities: edema (none) Neurological: other (No focal deficits) Results Result Diagram: 04/03/16 1455 04/03/16 1455 Results 24 hrs Laboratory Tests Test 04/03/16 14:55 04/03/16 18:30 04/04/16 00:35 04/04/16 06:10 Anion Gap 12 Basophils # 0.0 Basophils % 0.2 Blood Morphology Comment Blood Urea Nitrogen 13 Calcium Level 9.1 Carbon Dioxide Level 32 H Chloride Level 100 Creatinine 0.38 L Eosinophils # 0.1 Eosinophils % 1.3 Glucose Level 72 Hematocrit 34.0 #L Hemoglobin 10.8 #L Lymphocytes # 0.7 L Lymphocytes % 16.3 Mean Corpuscular Hemoglobin 27.1 L Mean Corpuscular Hemoglobin Concent 31.7 L Mean Corpuscular Volume 85.4 Mean Platelet Volume 7.8 Monocytes # 0.4 Monocytes % 9.7 Neutrophils # 3.2 Neutrophils % 72.5 Nucleated Red Blood Cells # 0.0 Nucleated Red Blood Cells % 0.0 Platelet Count 264 # Potassium Level 4.8 Red Blood Count 3.98 #L Red Cell Distribution Width 18.8 H Sodium Level 139 White Blood Count 4.4 L Troponin I 0.035 0.037 0.012 Medications Medications Current Medications Acetaminophen (Tylenol Tab) 1,000 mg Q8H PRN PO PAIN LEVEL 1-5; Start 03/30/16 at 23:30 Acetaminophen (Tylenol Tab) 650 mg Q6H PRN GTB FEVER >101 Last administered on 04/01/16 10:06; Admin Dose 650 MG; Start 03/30/16 at 23:30 Ascorbic Acid (Vitamin C) 500 mg DAILY GTB Last administered on 04/04/16 09:00 ; Admin Dose 500 MG; Start 03/31/16 at 09:00 Bisacodyl (Dulcolax) 10 mg DAILY PRN PO CONSTIPATION; Start 03/30/16 at 23:30 Chlorhexidine Gluconate (Peridex) 15 ml BID MM Last administered on 04/04/16 09:00; Admin Dose 15 ML; Start 03/30/16 at 23:30 Enoxaparin Sodium (Lovenox) 30 mg DAILY SC Last administered on 04/04/16 09:33 ; Admin Dose 30 MG; Start 03/31/16 at 09:00 Ferrous Sulfate (Feosol Liquid Cup) 300 mg BID GTB Last administered on 08:59; Admin Dose 300 MG; Start 03/30/16 at 23:30 Acetaminophen/ Hydrocodone Bitart ([place] (5/325)) 3.25 tab Q4 PRN GTB PAIN LEVEL 6-10 Last administered on 04/03/16 15:40; Admin Dose 3.25 TAB; Start 03/30 at 23:30 Lactulose (Enulose) 20 gm DAILY GTB Last administered on 04/04/16 08:59; Admin Dose 20 GM; Start 03/31/16 at 09:00 Lorazepam (Ativan) 1 mg Q6 GTB Last administered on 04/04/16 00:52; Admin Dose 1 MG; Start 03/31/16 at 00:00 Quetiapine Fumarate (Seroquel) 200 mg HS GTB Last administered on 04/03/16 21: 29; Admin Dose 200 MG; Start 03/31/16 at 21:00 Senna (Senokot) 1 tab QHS GTB Last administered on 04/03/16 21:29; Admin Dose 1 TAB; Start 03/31/16 at 21:00 Sodium Biphosphate/ Sodium Phosphate (Fleet Enema Pediatric) 66.6 ml DAILY PRN [place] CONSTIPATION; Start 03/30/16 at 23:30 Thiamine HCl (Vitamin B1) 100 mg DAILY GTB Last administered on 04/04/16 09:00 ; Admin Dose 100 MG; Start 03/31/16 at 09:00 Calcium Carbonate (Oyster Shell Calcium) 1.25 gm DAILY PO Last administered on 04/04/16 09:04; Admin Dose 1.25 GM; Start 03/31/16 at 09:00 Multivitamins/ Minerals 1 tab 1 tab DAILY PO Last administered on 04/04/16 09: 06; Admin Dose 1 TAB; Start 03/31/16 at 09:00 Cefepime HCl 50 ml @ 100 mls/hr DAILY IVPB Last administered on 04/04/16 09: 00; Admin Dose 100 MLS/HR; Start 03/31/16 at 09:00 Sodium Chloride (1/2 NS) 1,000 ml @ 60 mls/hr [id number] IV Last administered on 04/04/16 00:52; Admin Dose 60 MLS/HR; Start 03/30/16 at 23:30 Albuterol/ Ipratropium (Duoneb) 3 ml Q2H PRN HHN WHEEZING AND SOB; Start at 01:30 Lorazepam (Ativan) 0.5 mg Q6H PRN IV ANXIETY Last administered on 04/03/16 20: 08; Admin Dose 0.5 MG; Start 03/31/16 at 08:00 Famotidine (Pepcid) 20 mg DAILY PO Last administered on 04/04/16 09:09; Admin Dose 20 MG; Start 04/01/16 at 09:00 Quetiapine Fumarate (Seroquel) 25 mg GTB Last administered on 04/04/16 09:04; Admin Dose 25 MG; Start 04/01/16 at 09:00 Metoprolol Tartrate (Lopressor) 12.5 mg BID PO ; Start 04/04/16 at 21:00 LILI BRADEN Apr 04, 2016 13:15
--- NOTE | 2016-04-04 13:21 | PN ---
Date/Time of Note Date/Time of Note DATE: 04/04/16 TIME: 13:19 Assessment/Plan VTE Prophylaxis VTE Prophylaxis Intervention: SCD's Lines/Catheters IV [facility] (from [facility] Peripheral IV Urinary Cath still in place: Yes Assessment/Plan Assessment/Plan 1. Urinary tract infection per urinalysis. We will follow up on urine cultures. Obtain blood cultures. Continue the patient on cefepime. Continue IV fluids. 2. Acute encephalopathy secondary to #1. 3. Dehydration. 4. Dislodgement of G-tube, status post insertion of new G-tube. We will restart the feedings, monitor residual. Continue aspiration precautions. 5. Chronic respiratory failure with tracheostomy. Continue tracheostomy care, oxygen and bronchodilators. 6. Asymptomatic Tachycardia - cardiology consult appreciated- Dr Espitia informed - fu Echo Continue Lovenox for deep venous thrombosis prophylaxis. Further recommendations based on clinical course. Plan of care discussed with Dr. Colunga. Subjective 24 Hr Interval Summary Free Text/Dictation NAD, Sleeping, calm after ativan given, tolerating diet. no new issues reported by staff. Constitutional: requiring IVF, requiring O2 Exam/Review of Systems Vital Signs Vitals Vital Signs Date Time Temp Pulse Resp B/P Pulse Ox O2 Delivery O2 Flow Rate FiO2 04/04/16 12:27 79 04/04/16 11:43 97.5 20 90/53 100 04/04/16 08:39 Aerosol 8.0 35 T Tube Intake and Output 04/03/16 04/03/16 04/04/16 15:00 23:00 07:00 Intake Total 1680 ml 1570 ml Output Total 100 ml 1050 ml Balance 1580 ml 520 ml Exam Constitutional: alert Psych: no complaints Head: atraumatic Eyes: EOMI, nl sclera ENMT: nl external ears & nose Neck: non-tender Respiratory: diminished breath sounds, other Cardiovascular: nl pulses Gastrointestinal: non-tender, other, soft Musculoskeletal: muscle weakness Extremities: normal pulses Neurological: confused Skin: other Lymph: nontender Results Result Diagram: 04/03/16 1455 04/03/16 1455 Results 24 hrs Laboratory Tests Test 04/03/16 14:55 04/03/16 18:30 04/04/16 00:35 04/04/16 06:10 Anion Gap 12 Basophils # 0.0 Basophils % 0.2 Blood Morphology Comment Blood Urea Nitrogen 13 Calcium Level 9.1 Carbon Dioxide Level 32 H Chloride Level 100 Creatinine 0.38 L Eosinophils # 0.1 Eosinophils % 1.3 Glucose Level 72 Hematocrit 34.0 #L Hemoglobin 10.8 #L Lymphocytes # 0.7 L Lymphocytes % 16.3 Mean Corpuscular Hemoglobin 27.1 L Mean Corpuscular Hemoglobin Concent 31.7 L Mean Corpuscular Volume 85.4 Mean Platelet Volume 7.8 Monocytes # 0.4 Monocytes % 9.7 Neutrophils # 3.2 Neutrophils % 72.5 Nucleated Red Blood Cells # 0.0 Nucleated Red Blood Cells % 0.0 Platelet Count 264 # Potassium Level 4.8 Red Blood Count 3.98 #L Red Cell Distribution Width 18.8 H Sodium Level 139 White Blood Count 4.4 L Troponin I 0.035 0.037 0.012 Medications Medications Current Medications Acetaminophen (Tylenol Tab) 1,000 mg Q8H PRN PO PAIN LEVEL 1-5; Start 03/30/16 at 23:30 Acetaminophen (Tylenol Tab) 650 mg Q6H PRN GTB FEVER >101 Last administered on 04/01/16 10:06; Admin Dose 650 MG; Start 03/30/16 at 23:30 Ascorbic Acid (Vitamin C) 500 mg DAILY GTB Last administered on 04/04/16 09:00 ; Admin Dose 500 MG; Start 03/31/16 at 09:00 Bisacodyl (Dulcolax) 10 mg DAILY PRN PO CONSTIPATION; Start 03/30/16 at 23:30 Chlorhexidine Gluconate (Peridex) 15 ml BID MM Last administered on 04/04/16 09:00; Admin Dose 15 ML; Start 03/30/16 at 23:30 Enoxaparin Sodium (Lovenox) 30 mg DAILY SC Last administered on 04/04/16 09:33 ; Admin Dose 30 MG; Start 03/31/16 at 09:00 Ferrous Sulfate (Feosol Liquid Cup) 300 mg BID GTB Last administered on 08:59; Admin Dose 300 MG; Start 03/30/16 at 23:30 Acetaminophen/ Hydrocodone Bitart ([place] (5/325)) 3.25 tab Q4 PRN GTB PAIN LEVEL 6-10 Last administered on 04/03/16 15:40; Admin Dose 3.25 TAB; Start 03/30 at 23:30 Lactulose (Enulose) 20 gm DAILY GTB Last administered on 04/04/16 08:59; Admin Dose 20 GM; Start 03/31/16 at 09:00 Lorazepam (Ativan) 1 mg Q6 GTB Last administered on 04/04/16 00:52; Admin Dose 1 MG; Start 03/31/16 at 00:00 Quetiapine Fumarate (Seroquel) 200 mg HS GTB Last administered on 04/03/16 21: 29; Admin Dose 200 MG; Start 03/31/16 at 21:00 Senna (Senokot) 1 tab QHS GTB Last administered on 04/03/16 21:29; Admin Dose 1 TAB; Start 03/31/16 at 21:00 Sodium Biphosphate/ Sodium Phosphate (Fleet Enema Pediatric) 66.6 ml DAILY PRN [place] CONSTIPATION; Start 03/30/16 at 23:30 Thiamine HCl (Vitamin B1) 100 mg DAILY GTB Last administered on 04/04/16 09:00 ; Admin Dose 100 MG; Start 03/31/16 at 09:00 Calcium Carbonate (Oyster Shell Calcium) 1.25 gm DAILY PO Last administered on 04/04/16 09:04; Admin Dose 1.25 GM; Start 03/31/16 at 09:00 Multivitamins/ Minerals 1 tab 1 tab DAILY PO Last administered on 04/04/16 09: 06; Admin Dose 1 TAB; Start 03/31/16 at 09:00 Cefepime HCl 50 ml @ 100 mls/hr DAILY IVPB Last administered on 04/04/16 09: 00; Admin Dose 100 MLS/HR; Start 03/31/16 at 09:00 Sodium Chloride (1/2 NS) 1,000 ml @ 60 mls/hr [id number] IV Last administered on 04/04/16 00:52; Admin Dose 60 MLS/HR; Start 03/30/16 at 23:30 Albuterol/ Ipratropium (Duoneb) 3 ml Q2H PRN HHN WHEEZING AND SOB; Start at 01:30 Lorazepam (Ativan) 0.5 mg Q6H PRN IV ANXIETY Last administered on 04/03/16 20: 08; Admin Dose 0.5 MG; Start 03/31/16 at 08:00 Famotidine (Pepcid) 20 mg DAILY PO Last administered on 04/04/16 09:09; Admin Dose 20 MG; Start 04/01/16 at 09:00 Quetiapine Fumarate (Seroquel) 25 mg GTB Last administered on 04/04/16 09:04; Admin Dose 25 MG; Start 04/01/16 at 09:00 Metoprolol Tartrate (Lopressor) 12.5 mg BID PO ; Start 04/04/16 at 21:00 BRENT KENDRICK Apr 04, 2016 13:21
--- NOTE | 2016-04-04 15:32 | RADRPT ---
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 Physician: ANNETTA AGULIAR Quality: Good Procedures: Transthoracic echocardiogram with complete 2D, M-Mode, and doppler examination. Indications: 13 V-Tach. 2D/M Mode Doppler Measurement Value Normal Ranges Measurement Value Normal Ranges LVIDd 2D 3.6 3.5 - 5.6 cm AV Peak Dannie 1.6 m/sec LVIDs 2D 2.5 2.1 - 4.1 cm AV Peak PG 10.0 mmHg FS 2D 32.0 % LVOT Peak Dannie 1.2 m/sec LVPWd 2D 1.5 0.6 - 1.1 cm LVOT Peak PG 6.0 mmHg IVSd 2D 1.5 0.6 - 1.1 cm MV E Peak Dannie 0.6 m/sec IVS/LVPW 2D 1.0 MV A Peak Dannie 0.7 m/sec AoR Diam 2D 3.3 2.0 - 3.7 cm MV E/A 0.8 LA/Ao 2D 1 0 - 1 MV Decel Time 250 msec EDV 2D 47.4 cm3 MV E/A 0.8 ESV 2D 14.9 cm3 LA Dimen 2D 4.7 2.3 - 4.0 cm Findings Left Ventricle: Lower limits of normal systolic function. Mild concentric left ventricular hypertrophy. Ejection fraction is visually estimated at 5055 %. Tissue Doppler/Mitral Doppler indices are consistent with impaired relaxation (Stage I diastolic dysfunction). These segments of the LV are hypokinetic apical septum. Right Ventricle: Normal right ventricular systolic function. Mild enlargement of right ventricle. Left Atrium: There is moderate enlargement of left atrium. Right Atrium: There is mild enlargement of right atrium. Mitral Valve: Mild mitral leaflet calcification. Mild mitral annular calcification. Trace mitral regurgitation. Aortic Valve: Aortic sclerosis without stenosis. Probable trileaflet aortic valve, although not all leaflets are visualized. Tricuspid Valve: Normal appearance and function of the tricuspid valve with trace physiologic regurgitation. Pulmonic Valve: There is trace pulmonic regurgitation. Pericardium: Normal pericardium with no significant pericardial effusion. Aorta: Normal aortic root. IVC: Inferior vena cava with poor respiratory collapse, however, patient on ventilator. Conclusions 1.Lower limits of normal systolic function. Mild concentric left ventricular hypertrophy. Ejection fraction is visually estimated at 50-55 %. Tissue Doppler/Mitral Doppler indices are consistent with impaired relaxation (Stage I diastolic dysfunction). These segments of the LV are hypokinetic apical septum. 2.Normal right ventricular systolic function. Mild enlargement of right ventricle. 3.There is mild enlargement of left atrium. 4.There is mild enlargement of right atrium. 5.Trace mitral regurgitation. 6.Normal appearance and function of the tricuspid valve with trace physiologic regurgitation. 7.There is trace pulmonic regurgitation. Electronically Signed By: Supa Espitia 04-Apr-2016 15:34:16 -0800 [ADDENDUM] Patient Name: AIXA PALOMO Study Date: 04-Apr-2016 [id number]
[2016-04-04] MEDS: QUETIAPINE 100 MG TAB GTB SCH ×2 (17:15→23:17)
[2016-04-04] MEDS: SENNA TAB GTB SCH (21:21)
[2016-04-04] MEDS: LORAZEPAM 2 MG INJ IV PRN (21:21)
[2016-04-04] MEDS: METOPROLOL 25 MG TAB PO SCH (21:22)
[2016-04-05] VITALS (11 sets, daily range): BP systolic 137–198; BP diastolic 77–105; PULSE 70–97; RESP 16–24
[2016-04-05] MEDS: ALBUTEROL/IPRATROPIUM (NEB) 3 ML AMP HHN SCH ×4 (01:03→19:25)
[2016-04-05] MEDS: LORAZEPAM 2 MG INJ IV PRN ×2 (04:40→10:28)
[2016-04-05] MEDS: LORAZEPAM 1 MG TAB GTB SCH ×4 (06:50→17:59)
[2016-04-05] MEDS: FERROUS SULFATE 60 MG/ML 5ML CUP GTB SCH ×2 (08:59→09:00)
[2016-04-05] MEDS: CHLORHEXIDINE GLUCONATE 15 ML UD CUP MM SCH ×2 (08:59→09:00)
[2016-04-05] MEDS: LACTULOSE 30ML CUP GTB SCH ×2 (08:59→09:00)
[2016-04-05] MEDS: THIAMINE 100 MG TAB GTB SCH ×2 (08:59→09:00)
[2016-04-05] MEDS: QUETIAPINE 25 MG TAB GTB SCH ×3 (09:00→16:04)
[2016-04-05] MEDS: MULTIVITAMINS/MINERALS TAB PO SCH (09:00)
[2016-04-05] MEDS: CALCIUM CARBONATE 1.25 GM TAB PO SCH (09:00)
[2016-04-05] MEDS: FAMOTIDINE 20 MG TAB PO SCH (09:00)
[2016-04-05] MEDS: ENOXAPARIN 30 MG/0.3 ML SYG SC SCH ×2 (09:00→09:05)
[2016-04-05] MEDS: METOPROLOL 25 MG TAB PO SCH (09:00)
[2016-04-05] MEDS: ASCORBIC ACID 500 MG TAB GTB SCH (09:00)
[2016-04-05] MEDS: CEFEPIME 1GM/50 ML (PMX) 50 ML IVPB SCH (09:04)
[2016-04-05] MEDS: SOD CHLORIDE 0.45% 1,000 ML IV SCH (11:19)
--- NOTE | 2016-04-05 11:50 | CONS ---
Date/Time of Note Date/Time of Note DATE: 04/05/16 TIME: 11:48 Assessment/Plan Assessment/Plan Chief Complaint/Hosp Course IMPRESSION: 1. Wide complex tachycardia. Rule out nonsustained ventricular tachycardia.- negative troponin x 3/NL EF by echo this admit/no recurrence while on tele 2. Abnormal electrocardiogram, assess for acute coronary syndrome.-negative troponin x 3 3. Respiratory failure, chronic. 4. Urinary tract infection. 5. Altered mental state. 6. Anemia. 7. Leukopenia. 8. Dislodgement of gastrostomy tube, status post insertion of new gastrostomy tube. Recc: -Tele -Continue BB with uptitration ad continue as patient will comply -keep K>4.0 and Mg>2.0 as possible -Continue abx's/ F/U cx data Problems: Consultation Date/Type/Reason Admit Date/Time Mar 30, 2016 at 17:54 Initial Consult Date 04/03/2016 Type of Consultation: cardiology Reason for Consultation [id number] Referring Provider: ANNETTA AGUILAR MD Exam/Review of Systems Vital Signs Vitals Vital Signs Date Time Temp Pulse Resp B/P Pulse Ox O2 Delivery O2 Flow Rate FiO2 04/05/16 09:43 95 04/05/16 08:39 22 97 Aerosol 8.0 35 04/05/16 08:00 97.5 166/77 Intake and Output 04/04/16 04/04/16 04/05/16 15:00 23:00 07:00 Intake Total 50 ml 1890 ml 1060 ml Output Total 1250 ml 900 ml Balance 50 ml 640 ml 160 ml Exam Review of Systems: CONSTITUTIONAL: No fevers, chills. PULMONARY: trached CARDIOVASCULAR: Denies chest pain/palpitations GASTROINTESTINAL: No nausea/vomiting. GENITOURINARY: No hematuria/dysuria. MUSCULOSKELETAL: No myagias/arthalgias. PSYCHIATRIC: The patient denies depression. NEUROLOGIC: Generalized weakness Constitutional: alert, oriented Psych: no complaints Head: normocephalic ENMT: mucosa pink and moist, other (trached) Neck: jvd (9 cm water), supple Respiratory: other (upper airway rhocherous sounds) Cardiovascular: regular rate and rhythm Gastrointestinal: non-tender, soft Musculoskeletal: muscle weakness (generalized) Extremities: edema (none) Neurological: other Results Result Diagram: 04/03/16 1455 04/03/16 1455 Medications Medications Current Medications Acetaminophen (Tylenol Tab) 1,000 mg Q8H PRN PO PAIN LEVEL 1-5; Start 03/30/16 at 23:30 Acetaminophen (Tylenol Tab) 650 mg Q6H PRN GTB FEVER >101 Last administered on 04/01/16 10:06; Admin Dose 650 MG; Start 03/30/16 at 23:30 Ascorbic Acid (Vitamin C) 500 mg DAILY GTB Last administered on 04/04/16 09:00 ; Admin Dose 500 MG; Start 03/31/16 at 09:00 Bisacodyl (Dulcolax) 10 mg DAILY PRN PO CONSTIPATION; Start 03/30/16 at 23:30 Chlorhexidine Gluconate (Peridex) 15 ml BID MM Last administered on 04/04/16 21:21; Admin Dose 15 ML; Start 03/30/16 at 23:30 Enoxaparin Sodium (Lovenox) 30 mg DAILY SC Last administered on 04/04/16 09:33 ; Admin Dose 30 MG; Start 03/31/16 at 09:00 Ferrous Sulfate (Feosol Liquid Cup) 300 mg BID GTB Last administered on 21:21; Admin Dose 300 MG; Start 03/30/16 at 23:30 Acetaminophen/ Hydrocodone Bitart ([place] (5/325)) 3.25 tab Q4 PRN GTB PAIN LEVEL 6-10 Last administered on 04/03/16 15:40; Admin Dose 3.25 TAB; Start 03/30 at 23:30 Lactulose (Enulose) 20 gm DAILY GTB Last administered on 04/04/16 08:59; Admin Dose 20 GM; Start 03/31/16 at 09:00 Lorazepam (Ativan) 1 mg Q6 GTB Last administered on 04/05/16 06:50; Admin Dose 1 MG; Start 03/31/16 at 00:00 Quetiapine Fumarate (Seroquel) 200 mg HS GTB Last administered on 04/04/16 23: 17; Admin Dose 200 MG; Start 03/31/16 at 21:00 Senna (Senokot) 1 tab QHS GTB Last administered on 04/04/16 21:21; Admin Dose 1 TAB; Start 03/31/16 at 21:00 Sodium Biphosphate/ Sodium Phosphate (Fleet Enema Pediatric) 66.6 ml DAILY PRN [place] CONSTIPATION; Start 03/30/16 at 23:30 Thiamine HCl (Vitamin B1) 100 mg DAILY GTB Last administered on 04/04/16 09:00 ; Admin Dose 100 MG; Start 03/31/16 at 09:00 Calcium Carbonate (Oyster Shell Calcium) 1.25 gm DAILY PO Last administered on 04/04/16 09:04; Admin Dose 1.25 GM; Start 03/31/16 at 09:00 Multivitamins/ Minerals 1 tab 1 tab DAILY PO Last administered on 04/04/16 09: 06; Admin Dose 1 TAB; Start 03/31/16 at 09:00 Cefepime HCl 50 ml @ 100 mls/hr DAILY IVPB Last administered on 04/05/16 09: 04; Admin Dose 100 MLS/HR; Start 03/31/16 at 09:00 Sodium Chloride (1/2 NS) 1,000 ml @ 60 mls/hr [id number] IV Last administered on 04/04/16 21:22; Admin Dose 60 MLS/HR; Start 03/30/16 at 23:30 Albuterol/ Ipratropium (Duoneb) 3 ml Q2H PRN HHN WHEEZING AND SOB; Start at 01:30 Lorazepam (Ativan) 0.5 mg Q6H PRN IV ANXIETY Last administered on 04/05/16 10: 28; Admin Dose 0.5 MG; Start 03/31/16 at 08:00 Famotidine (Pepcid) 20 mg DAILY PO Last administered on 04/04/16 09:09; Admin Dose 20 MG; Start 04/01/16 at 09:00 Quetiapine Fumarate (Seroquel) 25 mg GTB Last administered on 04/04/16 17:49; Admin Dose 25 MG; Start 04/01/16 at 09:00 Metoprolol Tartrate (Lopressor) 12.5 mg BID PO Last administered on 04/04/16 21:22; Admin Dose 12.5 MG; Start 04/04/16 at 21:00 LILI BRADEN Apr 05, 2016 11:50
[2016-04-05] MEDS ORDERED: MAGNESIUM SULFATE 1 GM/D5W 100 ML IVPB SCH (13:30)
[2016-04-05] MEDS ORDERED: METOPROLOL 25 MG TAB PO SCH ×2 (16:00→21:00)
--- NOTE | 2016-04-06 10:42 | DS ---
DATE OF ADMISSION: 03/30/2016 DATE OF DISCHARGE: 04/05/2016 FINAL DIAGNOSES: 1. Urinary tract infection, status post treatment. 2. Acute encephalopathy secondary to infection. 3. Dehydration, resolved. 4. Dislodgement of G-tube, status post insertion of G-tube. 5. Chronic respiratory failure with tracheostomy. 6. Anemia. 7. Schizophrenia. BRIEF HISTORY: The patient is a 65-year-old gentleman with chronic respiratory failure with tracheo stomy, bedbound with lower extremity paralysis and contractures, gastrostomy tube, anxiety, schizoaf fective disorder, dementia and hypertension with benign prostatic hyperplasia. The patient was brou ght from [facility] facility for G-tube dislodgement. G-tube was reinserted by ER physician; brittaney montgomery, the patient noted to have a low grade fever and urinalysis was positive for urinary tract in fection. The patient was admitted for further evaluation and management. HOSPITAL COURSE The patient's urine culture grew out proteus. The patient was started on cefepime on admission. The patient also had elevated blood pressure and was evaluated by Dr. Espitia in card iology consultation. The patient was started on beta carl. The patient was receiving G-tube fee ding and tolerated well. Eventually, the patient's condition improved and the patient was discharge d to retirement facility. CONDITION ON DISCHARGE: Hemodynamically stable. ACTIVITY: As patient tolerates. DIET: Continue current G-tube feeding. Monitor residual. DISCHARGE MEDICATIONS: 1. Tylenol p.r.n. for fever and pain. 2. DuoNeb handheld nebulizer q.6h. routine and q.2h. p.r.n. for shortness of breath. 3. Vitamin C 4. Dulcolax p.r.n. for constipation. 5. Calcium carbonate. 6. Peridex swab and suction. 7. Ferrous sulfate. 8. [place] p.r.n. for pain. 9. Lactulose p.r.n. for constipation. 10. Lorazepam 1 mg G-tube q.6h. 11. Lopressor 25 mg p.o. b.i.d. 12. Multivitamin. 13. Seroquel 200 mg G-tube at bedtime. 14. Seroquel 25 mg G-tube b.i.d. 15. Senna p.r.n. 16. Senokot daily at bedtime. 17. Fleet enema p.r.n. for constipation. 18. Thiamine and protein supplement. 19. Keflex 500 mg via G-tube b.i.d. for 3 more days. Monitor postvoid residual. Interdisciplinary plan of care was established for this patient. Plan of care was discussed with Dr Kisha Aguilar. Dictated By: SHELBY BUNCH [employer] for ANNETTA AGUILAR MD SR/NTS Conf#: [id number] DID#: [id number]
== END 2016-04-05 23:35 | DRG 689 ==
LOC: E/R 15:48 → TEL 17:54
PROVIDERS: ADMIT Internal Medicine; ATTEND Internal Medicine
PROC: 3E0F7GC Introduction of Other Therapeutic Substance into Respiratory Tract, Via Natural or Artificial Opening (ICD-10-PCS; principal; 2016-03-30)
DX: N39.0 Urinary tract infection, site not specified (principal); G93.40 Encephalopathy, unspecified; J96.10 Chronic respiratory failure, unspecified whether with hypoxia or hypercapnia; Z93.0 Tracheostomy status; K94.23 Gastrostomy malfunction; F03.90 Unspecified dementia, unspecified severity, without behavioral disturbance, psychotic disturbance, mood disturbance, and anxiety; Z68.1 Body mass index [BMI] 19.9 or less, adult; G83.9 Paralytic syndrome, unspecified; E86.0 Dehydration; D64.9 Anemia, unspecified; F20.9 Schizophrenia, unspecified; I10 Essential (primary) hypertension; N40.0 Benign prostatic hyperplasia without lower urinary tract symptoms
CPT/HCPCS: 71010; 80048; 80053; 81001; 81003; 83690; 83735; 84443; 84484; 85025; 85610; 86850; 86900; 86901; 86920; 87081; 87086; 90686; 93005; 93306; 94640; 94664; J0692; J1650; J2060; J3475; J7030

== ENCOUNTER 2016-04-11 20:52 | Inpatient (IN) | payer MEDICARE, BC ==
[~2016-04-11] VITALS: Ht 175.3 cm; Wt 55.0 kg
[~2016-04-11 20:52] MED LIST changes: +ACET-141 GTB; +ACET-2047 GTB; +AMIN30LI3 GTB; -AMLO-145 PO; +ASC500 GTB; +BISA5TAB6 GTB; +CALC-459 GTB; +CHLO473M4 MM; -CLON-429 PO; -CLON0.5T4 PO; +FLEETPED PR; -FURO-110 PO; -GABA300C16 PO; +HYDR-906 GTB; -IBUP-727 PO; +IPRA3AMP INHALATION; +LACT20SO2 GTB; +LORA1TAB GTB; -LOSA50TA2 PO; +LOV30I SC; +MULT-105 GTB; -PANT40TA3 PO; +PROT946L GTB; +QUET200T27 GTB; -QUET25TA26 PO; +QUET25TA33 GTB; -RISP2TAB93 PO; +SENN-53 GTB; -SULF1TAB7 PO; -TAMS-14 PO; +THIA100T10 GTB; +UDFER GTB
--- NOTE | 2016-04-11 21:32 | RADRPT ---
PROCEDURE: XR Chest. CLINICAL INDICATION: Possible sepsis. TECHNIQUE: Single frontal view of the chest was obtained COMPARISON: Plain film chest dated 03/30/2016. FINDINGS: Further opacification of the left hemithorax, now with near complete opacification. There may be a tiny amount of aeration at the left apex. Nevertheless, aeration of the left apex is decreased over interval. Hyperinflation of the right lung. Cardiomegaly. Elevation of the left hemidiaphragm is again seen. Tracheostomy tube is seen with tip at midline. There is no pleural effusion or pneumothorax. Demineralization limits evaluation of fine osseous detail. Advanced degenerative changes versus seq uela of remote trauma at the left shoulder. IMPRESSION: 1. Near complete opacification of the left lung with hyperinflation of the right lung. 2. Opacification of the left lung is increased over interval RPTAT: [facility] Physician Meño Date Time Electronically viewed and signed by Physician Meño on 04/11/2016 21:32 RS/
[2016-04-11 21:35] LABS: INR 1.21; PROTIME 15.4 Sec (12.2-14.2); PT RATIO 1.2
[2016-04-11 21:36] LABS: PARTIAL THROMBOPLASTIN TIME 38.1 Sec (25.0-35.0)
[2016-04-11 21:37] LABS: ALBUMIN 2.8 g/dl (3.3-4.9); CHLORIDE 90 mmol/L (97-110)
[2016-04-11 21:38] LABS: POTASSIUM 4.2 mmol/L (3.5-5.1); SODIUM 136 mmol/L (135-144)
[2016-04-11 21:39] LABS: BASOPHILS % 0.1 % (0.0-2.0); EOSINOPHILS % 0.1 % (0.0-7.0); HEMATOCRIT 29.9 % (42.0-52.0); HEMOGLOBIN 9.6 g/dl (14.0-18.0); LYMPHOCYTES # 0.6 10^3/ul (0.8-2.9); LYMPHOCYTES % 7.2 % (15.0-51.0); MEAN CORPUSCULAR HEMOGLOBIN 27.3 pg (29.0-33.0); MEAN CORPUSCULAR HGB CONC 32.3 g/dl (32.0-37.0); MEAN CORPUSCULAR VOLUME 84.4 fl (82.0-101.0); MEAN PLATELET VOLUME 9.1 fl (7.4-10.4); MONOCYTE # 0.4 10^3/ul (0.3-0.9); MONOCYTES % 5.8 % (0.0-11.0); NEUTROPHIL # 6.6 10^3/ul (1.6-7.5); NEUTROPHILS % 86.8 % (39.0-77.0); PLATELET COUNT 180 10^3/UL (140-440); RED BLOOD COUNT 3.54 10^6/ul (4.70-6.10); RED CELL DISTRIBUTION WIDTH 17.7 % (11.5-14.5); UNCORRECTED WBC 7.7 10^3/ul (4.8-10.8); WHITE BLOOD COUNT 7.7 10^3/ul (4.8-10.8)
[2016-04-11 21:40] LABS: ALBUMIN/GLOBULIN RATIO 0.87; ASPARTATE AMINO TRANSFERASE 22 IU/L (15-46); BLOOD UREA NITROGEN 21 mg/dl (7-20); CONDITION 1; CREATININE 0.38 mg/dl (0.61-1.24); LH ANALYZER COMMENTS 1
[2016-04-11 21:41] LABS: ALANINE AMINOTRANSFERASE 21 IU/L (13-69); ALKALINE PHOSPHATASE 85 IU/L (42-121); CALCIUM 8.7 mg/dl (8.4-10.2); GLUCOSE 137 mg/dl (70-220)
[2016-04-11 21:48] LABS: ANION GAP 10 (8-16); CARBON DIOXIDE 39 mmol/L (21-31)
[2016-04-11 21:54] LABS: TROPONIN-I < 0.012 ng/ml (0.00-0.12)
[2016-04-11] MEDS ORDERED: SODIUM CHLORIDE 0.9% 1L BAG IV* STA (21:59)
[2016-04-11] MEDS ORDERED: SOD CHLORIDE 0.9% 1,000 ML IV SCH (22:12)
--- NOTE | 2016-04-11 22:12 | ERA ---
ER Documentation Chief Complaint Date/Time DATE: 04/11/16 TIME: 22:06 Chief Complaint sent from snf for low O2 sats; trach to air HPI This is a 65-year-old male who presents to the emergency room after being sent in from his longterm facility for low oxygen saturations. This patient does have a trach which is normally to air however when EMS arrived they stated this patient's oxygen level was 88% on room air. They began to bag this patient and brought the patient to the emergency room for further evaluation. ROS All systems reviewed and are negative except as per history of present illness. Medications Home Meds Reported Medications Thiamine* (Thiamine*) 100 Mg Tablet, 100 MG GTB DAILY, TAB 03/30/16 Sennosides* (Senna Lax*) 8.6 Mg Tablet, 1 TAB GTB QHS for CONSTIPATION, TAB HOLD FOR LBM>2 03/30/16 Quetiapine Fumarate* (Quetiapine Fumarate*) 200 Mg Tablet, 200 MG GTB HS, TAB 03/30/16 Quetiapine Fumarate* (Quetiapine Fumarate*) 25 Mg Tablet, 25 MG GTB BID, TAB 03/30/16 Protein Supplement (Promod) 946 Ml Liquid, 30 ML GTB BID 03/30/16 Amino Acids/Protein Hydrolys (Pro-Stat Profile Liquid) 30 Ml Liquid, 30 ML GTB BID 03/30/16 Hydrocodone/Acetaminophen ([place] 5-325 Tablet) 1 Each Tablet, 1 EACH GTB Q4 Y for PAIN LEVEL 6-10, TAB EVERY DAY SHIFT FOR PRIOR TO WOUND CARE 03/30/16 Multivitamin with Minerals (Multivitamins with Minerals) 1 Each Tablet, 1 EACH GTB DAILY, TAB 03/30/16 Lorazepam* (Lorazepam*) 1 Mg Tablet, 1 MG GTB Q6, #60 TAB 03/30/16 Lactulose* (Lactulose*) 20 Gm/30 Ml Solution, 30 ML GTB DAILY for CONSTIPATION, ML HOLD FOR LBM>2 03/30/16 Sod Phosphate/Sod Biphosphate* (Fleet* Enema Pediatric) 66.6 Ml Soln, 66.6 ML OR DAILY Y for CONSTIPATION, ENEMA 03/30/16 Ferrous Sulfate (Ferrous Sulfate) 300 Mg/5 Ml Liquid, 300 MG GTB BID 03/30/16 Enoxaparin Sodium* (Enoxaparin Sodium*) 30 Mg/0.3 Ml Syringe, 30 MG SC DAILY, SYR 03/30/16 Ipratropium-Albuterol (Ipratropium-Albuterol) 0.5-3 Mg/3 Ml Ampul.neb, 3 ML INHALATION Q2H, #30 VIAL USED Q2H OR Q4H FOR ASTHMA 03/30/16 Chlorhexidine Gluconate (Peridex) 473 Ml Mouthwash, 15 ML MM BID, BOTTLE 03/30/16 Calcium Carbonate (Calcium Carbonate) 500 Mg Tab.chew, 500 MG GTB DAILY, TAB.CHEW 03/30/16 Bisacodyl* (Bisacodyl*) 5 Mg Tablet.dr, 10 MG GTB DAILY Y for CONSTIPATION, TAB 03/30/16 Ascorbic Acid (Vitamin C) 500 Mg Tab, 500 MG GTB DAILY, TAB 03/30/16 Acetaminophen* (Acetaminophen*) 650 Mg Tablet, 650 MG GTB Q6H Y for FEVER >101, #30 TAB 03/30/16 Acetaminophen* (Acetaminophen*) 500 MG Extra Strength Tablet, 1000 MG GTB Q8H Y for PAIN LEVEL 1-5, TAB 03/30/16 Allergies Allergies: Coded Allergies: chlorpromazine (Verified Allergy, Mild, 03/30/16) haloperidol (Verified Allergy, Mild, 03/30/16) PMhx/Soc History of Surgery: No Anesthesia Reaction: No Hx Neurological Disorder: No Hx Respiratory Disorders: Yes (RESPIRATORY FAILURE) Hx Cardiac Disorders: Yes (HTN) Hx Psychiatric Problems: No (SCIZOPRENIA) Hx Miscellaneous Medical Probl: Yes (Schizoaffective disorder, trach, gtube, Bph) Hx Alcohol Use: No Hx Substance Use: No Hx Tobacco Use: Yes Smoking Status: Former smoker Physical Exam Vitals Vital Signs Date Time Temp Pulse Resp B/P Pulse Ox O2 Delivery O2 Flow Rate FiO2 04/11/16 21:00 98.2 99 20 93/63 93 Physical Exam INITIAL VITAL SIGNS: Reviewed by me GENERAL: The patient is a frail-appearing older gentleman, mildly cachectic, mild respiratory distress HEENT: Pupils equal, round, and reactive to light. EOMI. There is no scleral icterus. NECK: Tracheostomy with mild yellow mucus discharge, C-spine is soft and supple , there is no meningismus. There is no cervical lymphadenopathy. LUNGS: Diminished on the left, coarse breath sounds throughout right lung field HEART: Regular rate and rhythm, no murmurs, clicks, rubs or gallops. ABDOMEN: Soft, non-tender, non-distended. There are bowel sounds in all four quadrants. No rebound or guarding. EXTREMITIES: There is no peripheral cyanosis or edema. No focal swelling or erythema. NEUROLOGICAL: The patient moves all four extremities with 5/5 strength. Cranial nerves II - XII are intact. Normal gait. Alert and oriented SKIN: There is no apparent rash or petechiae. HEME/LYMPHATIC: There is no evidence of excessive bruising or lymphedema. PSYCHIATRIC: The patient does not appear anxious or depressed. Result Diagram: 04/11/16210404/11/162104 Results 24 hrs Laboratory Tests Test 04/11/16 21:05 Activated Partial Thromboplast Time 38.1Sec Alanine Aminotransferase (ALT/SGPT) 21IU/L Albumin 2.8g/dl Albumin/Globulin Ratio 0.87 Alkaline Phosphatase 85IU/L Anion Gap 10 Aspartate Amino Transf (AST/SGOT) 22IU/L Basophils # 0.010^3/ul Basophils % 0.1% Blood Morphology Comment Blood Urea Nitrogen 21mg/dl Calcium Level 8.7mg/dl Carbon Dioxide Level 39mmol/L Chloride Level 90mmol/L Creatinine 0.38mg/dl Direct Bilirubin 0.00mg/dl Eosinophils # 0.010^3/ul Eosinophils % 0.1% Globulin 3.20g/dl Glucose Level 137mg/dl Hematocrit 29.9% Hemoglobin 9.6g/dl INR International Normalized Ratio 1.21 Indirect Bilirubin 0.0mg/dl Lactic Acid Level 1.5mmol/L Lymphocytes # 0.610^3/ul Lymphocytes % 7.2% Mean Corpuscular Hemoglobin 27.3pg Mean Corpuscular Hemoglobin Concent 32.3g/dl Mean Corpuscular Volume 84.4fl Mean Platelet Volume 9.1fl Monocytes # 0.410^3/ul Monocytes % 5.8% Neutrophils # 6.610^3/ul Neutrophils % 86.8% Nucleated Red Blood Cells # 0.010^3/ul Nucleated Red Blood Cells % 0.0/100WBC Platelet Count 83285^3/UL Potassium Level 4.2mmol/L Prothrombin Time 15.4Sec Prothrombin Time Ratio 1.2 Red Blood Count 3.5410^6/ul Red Cell Distribution Width 17.7% Sodium Level 136mmol/L Total Bilirubin 0.0mg/dl Total Protein 6.0g/dl Troponin I < 0.012ng/ml White Blood Count 7.710^3/ul Current Medications Medications (Trade) Dose Ordered Sig/Benny Route PRN Reason Start Time Stop Time Status Last Admin Dose Admin Sodium Chloride (NS) 1,710 ml BOLUS OVER 2 HOURS STAT IV* 04/11/16 21:59 04/11/16 22:00 DC Procedures/MDM EKG: Rate/Rhythm: Sinus tachycardia QRS, ST, T-waves: [No changes consistent w/ acute ischemia] Impression: [No evidence of ischemia or arrhythmia] Chest X-ray 1V Interpreted by me: Soft Tissue: Near complete opacification of left lung Bones: No acute abnormalities Mediastinum/Cardiac Silhouette/Lungs: [No acute abnormalities] Chest X-ray 1V Interpreted by me: #2 Soft Tissue: Improved, however near complete opacification of left lung Bones: No acute abnormalities Mediastinum/Cardiac Silhouette/Lungs: [No acute abnormalities] This 65-year-old male presents to the emergency room for evaluation of shortness of breath. When I evaluated him he was tachypnea, tachycardic, and was being assisted with a bag valve mask through his trach. Was not ventilating well. He was placed on a ventilator and did not have good tidal volumes. He did have an 8-0 fenestrated trach which was changed by myself. This patient also had his trach suctioned and after a trach change patient's oxygen saturations 97% on 3 L. Lab work is within normal limits however his x- ray does show more opacification of his left lung than normal. This patient will be placed in for admission at this time under the care of Dr. Mc who is covering Dr. Colunga Critical Care: Excluding all billable procedures Time: 33 minutes Treatments/Evaluations: Emergent and rapid respiratory assessment and management with continuous monitoring. Advanced airway equipment at the ready, while the patient's respiratory symptoms were stabilized, repeat bedside evaluations, tracheostomy change, aggressive fluid administration, coronation of nursing care, lab by interpretation, multiple consultations. Departure Diagnosis: Primary Impression: Acute respiratory failure with hypoxia Additional Impressions: Normocytic anemia Acute prerenal azotemia Condition: Stable LYNDA CHEN DO Apr 11, 2016 22:12
[2016-04-11 22:20] LABS: ADD UMIC YES; URINE BILIRUBIN (Dip) NEGATIVE (NEGATIVE); URINE BLOOD (Dip) 3+ (NEGATIVE); URINE COLOR YELLOW (YELLOW); URINE GLUCOSE (Dip) NEGATIVE (NEGATIVE); URINE KETONES (Dip) NEGATIVE (NEGATIVE); URINE LEUKOCYTE ESTERASE (Dip) 3+ (NEGATIVE); URINE NITRITE (Dip) NEGATIVE (NEGATIVE); URINE TOTAL PROTEIN (Dip) 1+ (NEGATIVE); URINE UROBILINOGEN (Dip) 2.0 E.U./dL (0.1-1.0)
--- NOTE | 2016-04-11 22:25 | RADRPT ---
PROCEDURE: XR Chest. CLINICAL INDICATION: Shortness of breath TECHNIQUE: Single AP portable chest COMPARISON: 04/11/2016 FINDINGS: Slight improved aeration of the left upper lobe with persistent opacification of the left lower lobe and volume loss of the left lung. The right lung is clear. Tracheostomy in place. Chronic elevat ion of left hemidiaphragm. Cardiomegaly. . Delete No pneumothorax. The osseous structures and sof t tissues are unremarkable. IMPRESSION: 1. Slight improved aeration of the left upper lobe otherwise no interval change.. RPTAT:AAJJ Physician Sven Date Time Electronically viewed and signed by Physician Sven on 04/11/2016 22:24 PATRICK/
[2016-04-11] MEDS ORDERED: NA PHOSPHATE/BIPHOS 66.6 ML ENEMA PR PRN (22:30)
[2016-04-11] MEDS ORDERED: HYDROCODONE/APAP (5/325) TAB GTB PRN (22:30)
[2016-04-11] MEDS ORDERED: ACETAMINOPHEN 325 MG TAB PO PRN ×2 (22:30)
[2016-04-11] MEDS ORDERED: NACL 0.9% 3 ML SYG IV SCH (22:30)
[2016-04-11] MEDS ORDERED: ONDANSETRON 4 MG INJ IV PRN (22:30)
[2016-04-11] MEDS ORDERED: BISACODYL (EC) 5 MG TAB PO PRN (22:30)
[2016-04-11 22:47] LABS: BACTERIA,URINE MANY; URINE RBCS 25-50 /HPF (0)
[2016-04-12] MEDS ORDERED: ALBUTEROL/IPRATROPIUM (NEB) 3 ML AMP INH SCH (01:00)
[2016-04-12] MEDS: LORAZEPAM 1 MG TAB GTB SCH ×4 (06:00→20:37)
[2016-04-12] MEDS: LACTULOSE 30ML CUP GTB SCH (09:00)
[2016-04-12] MEDS: MULTIVITAMINS/MINERALS TAB PO SCH (09:00)
[2016-04-12] MEDS ORDERED: AMINO ACIDS GTB SCH (09:00)
[2016-04-12] MEDS: ASCORBIC ACID 500 MG TAB GTB SCH (09:00)
[2016-04-12] MEDS ORDERED: NON-FORMULARY/PATIENT OWN MED (Calcium Carbonate 500 MG) GTB SCH (09:00)
[2016-04-12] MEDS ORDERED: [UNRECOGNIZED DRUG - OTHER] GTB SCH (09:00)
[2016-04-12] MEDS ORDERED: NON-FORMULARY/PATIENT OWN MED (Protein Supplement (Promod) 30 ML) GTB SCH (09:00)
[2016-04-12] MEDS ORDERED: PROTEIN HYDROLYS GTB SCH (09:00)
[2016-04-12] MEDS: THIAMINE 100 MG TAB GTB SCH (10:07)
[2016-04-12] MEDS: QUETIAPINE 25 MG TAB GTB SCH ×2 (10:07→10:11)
[2016-04-12] MEDS: CHLORHEXIDINE GLUCONATE 15 ML UD CUP MM SCH ×2 (10:09→20:37)
[2016-04-12] MEDS: CALCIUM CARBONATE 500 MG CHEW TAB GTB SCH (10:09)
[2016-04-12] MEDS: FERROUS SULFATE 60 MG/ML 5ML CUP GTB SCH ×2 (10:09→20:37)
[2016-04-12] MEDS ORDERED: LORAZEPAM 2 MG INJ ONE (10:33)
[2016-04-12] MEDS ORDERED: LORAZEPAM 2 MG INJ IV ONE ×2 (11:00→15:00)
[2016-04-12] MEDS: FAMOTIDINE 20 MG INJ IV SCH ×2 (13:10→20:37)
[2016-04-12] MEDS: ENOXAPARIN 30 MG/0.3 ML SYG SC SCH (13:11)
[2016-04-12 13:28] LABS: BASOPHILS % 0.1 % (0.0-2.0); HEMATOCRIT 29.3 % (42.0-52.0); HEMOGLOBIN 9.4 g/dl (14.0-18.0); LYMPHOCYTES # 0.4 10^3/ul (0.8-2.9); LYMPHOCYTES % 4.7 % (15.0-51.0); MEAN CORPUSCULAR HEMOGLOBIN 27.3 pg (29.0-33.0); MEAN CORPUSCULAR HGB CONC 32.1 g/dl (32.0-37.0); MEAN CORPUSCULAR VOLUME 85.1 fl (82.0-101.0); MEAN PLATELET VOLUME 8.2 fl (7.4-10.4); MONOCYTE # 0.4 10^3/ul (0.3-0.9); MONOCYTES % 4.6 % (0.0-11.0); NEUTROPHIL # 8.4 10^3/ul (1.6-7.5); NEUTROPHILS % 90.6 % (39.0-77.0); PLATELET COUNT 169 10^3/UL (140-440); RED BLOOD COUNT 3.44 10^6/ul (4.70-6.10); RED CELL DISTRIBUTION WIDTH 18.3 % (11.5-14.5); UNCORRECTED WBC 9.3 10^3/ul (4.8-10.8); WHITE BLOOD COUNT 9.3 10^3/ul (4.8-10.8)
[2016-04-12] MEDS ORDERED: VANCOMYCIN IV PER PHARMACY XX SCH (13:30)
--- NOTE | 2016-04-12 13:30 | CONS ---
Date/Time of Note Date/Time of Note DATE: 04/12/16 TIME: 13:23 Assessment/Plan Assessment/Plan Additional Assessment/Plan Assessment and recommendations; next 1. Patient admitted with hypoxemia due to extensive pneumonia versus atelectasis of left lung possibly from mucous plugging. Next 2. History of paraplegia. Next 3. History of respiratory failure. Patient currently on T-piece. 4. History of hypertension. 5. History of alcohol abuse. 6. History of arthritis. Next Current treatment treatment, add vancomycin to the antibiotic regimen. Once the patient is transferred to ICU he will likely need to have a bronchoscopy performed. Will likely need to be on ventilator for that. Perform deep suctioning through tracheostomy. Consultation Date/Type/Reason Admit Date/Time Date of Consultation: Apr 12, 2016 Type of Consultation: Pulmonary/critical care Reason for Consultation Patient transferred from halfway facility due to hypoxemia. A consultation requested for evaluation of it. History of presenting illness; it is a 62-year-old white male who was transferred over to [facility] from the snf with complaints of hypoxemia going on for the last 1 day. Upon evaluation he had a chest x-ray was done which is showing extensive whiteout of the left lung indicative of extensive pneumonia versus atelectasis of left lung due to mucous plugging. The patient despite being a tracheostomy is able to give somewhat history by himself and is able to talk through. Complains of shortness of breath. Denies any chest pain. Any abdominal pain. Any recent nausea vomiting. Next Past medical history; 1. chronic respiratory failure, status post tracheostomy next 2. History of paraplegia. 3. Status post G-tube placement. 4. History of hypertension. Medications; were reviewed. Next Allergies; chlorpromazine and Haldol. Social history; patient is an ex-smoker. Family history; noncontributory. Patient is single he does not have any children. He is . 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 Review of systems; has any headache, any seizures. Any chest pain. Complains of shortness of breath. Denies any cough. Any sputum production. Any any abdominal pain. Any nausea, vomiting. General examination; elderly male, on T piece via tracheostomy. Appears tachypneic. Social History Smoking Status: Former smoker Exam/Review of Systems Vital Signs Vitals Vital Signs Date Time Temp Pulse Resp B/P Pulse Ox O2 Delivery O2 Flow Rate FiO2 04/12/16 13:00 98.3 97 20 152/74 98 Room Air 04/12/16 10:00 10.0 04/11/16 21:40 100 Exam H EENT examination; supple neck, upper jaw is edentulous. Patient does have fair dentition involving the lower jaw. Pharynx is clear. Tracheostomy in place. Insertion site is clean. Pupils are midsize and reactive to light bilaterally and equally. Extraocular movements are intact. No neck masses. No thyromegaly. No lymphadenopathy. Chest examination; diminished breath sounds left lung. Right lung is clear. S1 -S2 audible, no murmurs. Regular rhythm. Abdomen examination; soft, nondistended. G-tube in place. Bowel sounds audible. Extremity examination; no peripheral edema. Patient does have significant flexion contractures involving both lower extremities. MUSEUM HOST/HOSTESS examination; cranial nerves are intact. Patient has paraplegia. Able to move upper extremities. Results Result Diagram: 04/11/16210404/11/162104 Results 24 hrs Laboratory Tests Test 04/11/16 21:05 04/11/16 21:45 04/11/16 23:15 04/12/16 02:55 Activated Partial Thromboplast Time 38.1 H Alanine Aminotransferase (ALT/SGPT) 21 Albumin 2.8 L Albumin/Globulin Ratio 0.87 Alkaline Phosphatase 85 Anion Gap 10 Aspartate Amino Transf (AST/SGOT) 22 Basophils # 0.0 Basophils % 0.1 Blood Morphology Comment Blood Urea Nitrogen 21 H Calcium Level 8.7 Carbon Dioxide Level 39 H Chloride Level 90 L Creatinine 0.38 L Direct Bilirubin 0.00 Eosinophils # 0.0 Eosinophils % 0.1 Globulin 3.20 Glucose Level 137 Hematocrit 29.9 L Hemoglobin 9.6 L INR International Normalized Ratio 1.21 Indirect Bilirubin 0.0 Lactic Acid Level 1.5 1.1 0.7 Lymphocytes # 0.6 L Lymphocytes % 7.2 L Mean Corpuscular Hemoglobin 27.3 L Mean Corpuscular Hemoglobin Concent 32.3 Mean Corpuscular Volume 84.4 Mean Platelet Volume 9.1 Monocytes # 0.4 Monocytes % 5.8 Neutrophils # 6.6 Neutrophils % 86.8 H Nucleated Red Blood Cells # 0.0 Nucleated Red Blood Cells % 0.0 Platelet Count 180 # Potassium Level 4.2 Prothrombin Time 15.4 H Prothrombin Time Ratio 1.2 Red Blood Count 3.54 L Red Cell Distribution Width 17.7 H Sodium Level 136 Total Bilirubin 0.0 L Total Protein 6.0 L Troponin I < 0.012 White Blood Count 7.7 # Urine Bacteria MANY Urine Bilirubin NEGATIVE Urine Clarity CLOUDY H Urine Color YELLOW Urine Glucose NEGATIVE Urine Hemoglobin 3+ H Urine Ketones NEGATIVE Urine Leukocyte Esterase 3+ H Urine Microscopic RBC 25-50 Urine Microscopic WBC >200 Urine Nitrite NEGATIVE Urine Specific Bolt 1.015 Urine Total Protein 1+ H Urine Urobilinogen 2.0 E.U./dL H Urine pH 8.5 Medications Medications Current Medications Sodium Chloride (NS) 1,000 ml @ 50 mls/hr Q20H IV ; Start 04/11/16 at 22:18 Ondansetron HCl (Zofran Inj) 4 mg Q6H PRN IV NAUSEA AND/OR VOMITING; Start at 22:30 Acetaminophen (Tylenol Tab) 650 mg Q6H PRN PO PAIN LEVEL 1-3 OR FEVER; Start at 22:30 Morphine Sulfate (morphine) 2 mg Q4H PRN IV PAIN LEVEL 7-10; Start 04/11/16 at 22:30 Famotidine (Pepcid Iv) 20 mg Q12 IV Last administered on 04/12/16 13:10; Admin Dose 20 MG; Start 04/12/16 at 09:00 Enoxaparin Sodium (Lovenox) 30 mg DAILY SC Last administered on 04/12/16 13:11 ; Admin Dose 30 MG; Start 04/12/16 at 09:00 Ascorbic Acid (Vitamin C) 500 mg DAILY GTB Last administered on 04/12/16 09:00 ; Admin Dose 500 MG; Start 04/12/16 at 09:00 Bisacodyl (Dulcolax) 10 mg DAILY PRN PO CONSTIPATION; Start 04/11/16 at 22:30 Chlorhexidine Gluconate (Peridex) 15 ml BID MM Last administered on 04/12/16 10:09; Admin Dose 15 ML; Start 04/12/16 at 09:00 Ferrous Sulfate (Feosol Liquid Cup) 300 mg BID GTB Last administered on 10:09; Admin Dose 300 MG; Start 04/12/16 at 09:00 Acetaminophen/ Hydrocodone Bitart ([place] (5/325)) 1 tab Q4 PRN GTB PAIN LEVEL 6 -10; Start 04/11/16 at 22:30 Lactulose (Enulose) 20 gm DAILY GTB ; Start 04/12/16 at 09:00 Lorazepam (Ativan) 1 mg Q6 GTB ; Start 04/12/16 at 00:00 Quetiapine Fumarate (Seroquel) 25 mg BID@ GTB Last administered on 10:11; Admin Dose 25 MG; Start 04/12/16 at 09:00 Quetiapine Fumarate (Seroquel) 200 mg HS GTB ; Start 04/12/16 at 21:00 Senna (Senokot) 1 tab QHS GTB ; Start 04/12/16 at 21:00 Sodium Biphosphate/ Sodium Phosphate (Fleet Enema Pediatric) 66.6 ml DAILY PRN [place] CONSTIPATION; Start 04/11/16 at 22:30 Thiamine HCl (Vitamin B1) 100 mg DAILY GTB Last administered on 04/12/16 10:07 ; Admin Dose 100 MG; Start 04/12/16 at 09:00 Calcium Carbonate (Tums) 500 mg DAILY GTB Last administered on 04/12/16 10:09 ; Admin Dose 500 MG; Start 04/12/16 at 09:00 Multivitamins/ Minerals 1 tab 1 tab DAILY PO Last administered on 04/12/16 09: 00; Admin Dose 1 TAB; Start 04/12/16 at 09:00 Piperacillin Sod/ Tazobactam Sod (Zosyn 3.375gm/ 100 ml (Pmx)) 100 ml @ 200 mls /hr Q8 IVPB ; Start 04/12/16 at 14:00 Metoprolol Tartrate (Lopressor) 12.5 mg BID PO ; Start 04/12/16 at 12:30 Hydralazine HCl (Apresoline) 10 mg Q6H PRN IV SBP>170; Start 04/12/16 at 12:30 KATHERYN LAWTON Apr 12, 2016 13:30
[2016-04-12 13:37] LABS: CONDITION 1; LH ANALYZER COMMENTS 1
[2016-04-12 13:40] LABS: ALBUMIN 2.9 g/dl (3.3-4.9)
[2016-04-12 13:41] LABS: POTASSIUM 4.4 mmol/L (3.5-5.1)
[2016-04-12 13:43] LABS: ALBUMIN/GLOBULIN RATIO 0.85; BILIRUBIN,INDIRECT 0.1 mg/dl (0-1.1); BILIRUBIN,TOTAL 0.1 mg/dl (0.2-1.3); CREATININE 0.38 mg/dl (0.61-1.24); TOTAL PROTEIN 6.3 g/dl (6.1-8.1)
[2016-04-12 13:44] LABS: CALCIUM 8.5 mg/dl (8.4-10.2)
[2016-04-12] MEDS ORDERED: PIPER-TAZO 3.375 GM IV (PMX) 100 ML IVPB SCH (14:00)
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
[2016-04-12] MEDS: VANCOMYCIN 1 GM in NS 250 ML IVPB SCH ×2 (15:22→15:31)
[2016-04-12] MEDS: hydrALAzine 20 MG INJ IV PRN (15:22)
[2016-04-12] MEDS: SOD CHLORIDE 0.9% 1,000 ML IV SCH ×2 (18:18→20:36)
[2016-04-12 18:41] VITALS: TEMP 97.6
[2016-04-12 19:43] VITALS: Ht 175.3 cm; Wt 55.0 kg
[2016-04-12 20:16] VITALS: PULSE 100
[2016-04-12 20:17] VITALS: BP 171/84; RESP 20
[2016-04-12] MEDS: METOPROLOL 25 MG TAB PO SCH ×2 (20:37→20:39)
[2016-04-12] MEDS: QUETIAPINE 100 MG TAB GTB SCH (20:37)
[2016-04-12] MEDS: SENNA TAB GTB SCH (20:38)
[2016-04-12 23:32] VITALS: BP 97/54; RESP 20
[2016-04-13] VITALS (13 sets, daily range): BP systolic 99–215; BP diastolic 58–100; PULSE 57–88; RESP 17–21
[2016-04-13] MEDS: IMIPENEM-CILAST 500MG IV (PMX) 100 ML IVPB SCH ×3 (00:16→12:19)
[2016-04-13] MEDS ORDERED: ALBUTEROL/IPRATROPIUM (NEB) 3 ML AMP ONE (00:47)
[2016-04-13] MEDS: ALBUTEROL/IPRATROPIUM (NEB) 3 ML AMP INH SCH ×4 (01:15→20:00)
[2016-04-13] MEDS: VANCOMYCIN 750 MG in SOD CHLORIDE 0.9% 150 ML IVPB SCH ×2 (04:18→16:45)
[2016-04-13] MEDS: LORAZEPAM 1 MG TAB GTB SCH ×5 (05:04→23:57)
[2016-04-13] MEDS: METOPROLOL 25 MG TAB PO SCH ×2 (09:00→20:18)
[2016-04-13] MEDS: FERROUS SULFATE 60 MG/ML 5ML CUP GTB SCH ×2 (09:13→20:20)
[2016-04-13] MEDS: LACTULOSE 30ML CUP GTB SCH (09:13)
[2016-04-13] MEDS: CHLORHEXIDINE GLUCONATE 15 ML UD CUP MM SCH ×2 (09:13→20:17)
[2016-04-13] MEDS: ASCORBIC ACID 500 MG TAB GTB SCH (09:14)
[2016-04-13] MEDS: MULTIVITAMINS/MINERALS TAB PO SCH (09:14)
[2016-04-13] MEDS: CALCIUM CARBONATE 500 MG CHEW TAB GTB SCH (09:14)
[2016-04-13] MEDS: FAMOTIDINE 20 MG INJ IV SCH ×2 (09:14→20:18)
[2016-04-13] MEDS: THIAMINE 100 MG TAB GTB SCH (09:27)
[2016-04-13] MEDS: QUETIAPINE 25 MG TAB GTB SCH ×2 (09:27→16:48)
[2016-04-13] MEDS: ENOXAPARIN 30 MG/0.3 ML SYG SC SCH (09:41)
--- NOTE | 2016-04-13 10:27 | CONS ---
Date/Time of Note Date/Time of Note DATE: 04/13/16 TIME: 10:24 Assessment/Plan Assessment/Plan Additional Assessment/Plan Assessment and recommendations; 1. Patient with history of chronic respiratory failure maintained on T-piece. 2. Patient admitted with extensive left-sided pneumonia possibly underlying mucous plug. 3. History of alcohol abuse. 4. History of paraplegia. Continue current antibiotics. Obtain follow-up chest x-ray in 24 hours. If the patient has persistent atelectasis then he will need to have a bronchoscopy performed. Consultation Date/Type/Reason Admit Date/Time Apr 11, 2016 at 22:13 Initial Consult Date 04/12/16 Type of Consultation: Pulmonary/critical care 24 HR Interval Summary Free Text/Dictation Patient condition is stable. He is awake, alert and able to talk. General examination; elderly male, currently in no distress awake and alert. On T piece via the colostomy. Exam/Review of Systems Vital Signs Vitals Vital Signs Date Time Temp Pulse Resp B/P Pulse Ox O2 Delivery O2 Flow Rate FiO2 04/13/16 08:27 74 20 98 Aerosol 8.0 35 Aerosol Mask 04/13/16 08:16 97.8 109/68 Exam H EENT examination; supple neck, no JVD. No lymphadenopathy. Tracheostomy in place with clean insertion site. Pupils are midsize and reactive to light. Upper jaw is edentulous. Chest examination; right lung is clear to auscultation with extensive crackles involving the left lung. S1-S2 audible, no murmurs. Regular rhythm. Abdomen examination; soft, nontender. No distention. No organomegaly. G-tube in place. Bowel sounds audible. Extremity examination; no peripheral edema. Patient does have contractures involving lower extremities. 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 Results Result Diagram: 04/12/16 1320 04/12/16 1320 Results 24 hrs Laboratory Tests Test 04/12/16 13:20 Alanine Aminotransferase (ALT/SGPT) 20 Albumin 2.9 L Albumin/Globulin Ratio 0.85 Alkaline Phosphatase 87 Anion Gap 11 Aspartate Amino Transf (AST/SGOT) 21 Basophils # 0.0 Basophils % 0.1 Blood Morphology Comment Blood Urea Nitrogen 16 Calcium Level 8.5 Carbon Dioxide Level 36 H Chloride Level 96 L Creatinine 0.38 L Direct Bilirubin 0.00 Eosinophils # 0.0 Eosinophils % 0.0 Globulin 3.40 H Glucose Level 90 # Hematocrit 29.3 L Hemoglobin 9.4 L Indirect Bilirubin 0.1 Lymphocytes # 0.4 L Lymphocytes % 4.7 L Mean Corpuscular Hemoglobin 27.3 L Mean Corpuscular Hemoglobin Concent 32.1 Mean Corpuscular Volume 85.1 Mean Platelet Volume 8.2 Monocytes # 0.4 Monocytes % 4.6 Neutrophils # 8.4 H Neutrophils % 90.6 H Nucleated Red Blood Cells # 0.0 Nucleated Red Blood Cells % 0.0 Platelet Count 169 Potassium Level 4.4 Red Blood Count 3.44 L Red Cell Distribution Width 18.3 H Sodium Level 139 Total Bilirubin 0.1 L Total Protein 6.3 White Blood Count 9.3 # Medications Medications Current Medications Sodium Chloride (NS) 1,000 ml @ 50 mls/hr Q20H IV Last administered on 20:36; Admin Dose 50 MLS/HR; Start 04/11/16 at 22:18 Ondansetron HCl (Zofran Inj) 4 mg Q6H PRN IV NAUSEA AND/OR VOMITING; Start at 22:30 Acetaminophen (Tylenol Tab) 650 mg Q6H PRN PO PAIN LEVEL 1-3 OR FEVER; Start at 22:30 Morphine Sulfate (morphine) 2 mg Q4H PRN IV PAIN LEVEL 7-10; Start 04/11/16 at 22:30 Famotidine (Pepcid Iv) 20 mg Q12 IV Last administered on 04/13/16 09:14; Admin Dose 20 MG; Start 04/12/16 at 09:00 Enoxaparin Sodium (Lovenox) 30 mg DAILY SC Last administered on 04/13/16 09:41 ; Admin Dose 30 MG; Start 04/12/16 at 09:00 Ascorbic Acid (Vitamin C) 500 mg DAILY GTB Last administered on 04/13/16 09:14 ; Admin Dose 500 MG; Start 04/12/16 at 09:00 Bisacodyl (Dulcolax) 10 mg DAILY PRN PO CONSTIPATION; Start 04/11/16 at 22:30 Chlorhexidine Gluconate (Peridex) 15 ml BID MM Last administered on 04/13/16 09:13; Admin Dose 15 ML; Start 04/12/16 at 09:00 Ferrous Sulfate (Feosol Liquid Cup) 300 mg BID GTB Last administered on 09:13; Admin Dose 300 MG; Start 04/12/16 at 09:00 Acetaminophen/ Hydrocodone Bitart ([place]e (5/325)) 1 tab Q4 PRN GTB PAIN LEVEL 6 -10; Start 04/11/16 at 22:30 Lactulose (Enulose) 20 gm DAILY GTB Last administered on 04/13/16 09:13; Admin Dose 20 GM; Start 04/12/16 at 09:00 Lorazepam (Ativan) 1 mg Q6 GTB Last administered on 04/13/16 05:04; Admin Dose 1 MG; Start 04/12/16 at 00:00 Quetiapine Fumarate (Seroquel) 25 mg BID@ GTB Last administered on 09:27; Admin Dose 25 MG; Start 04/12/16 at 09:00 Quetiapine Fumarate (Seroquel) 200 mg HS GTB Last administered on 04/12/16 20: 37; Admin Dose 200 MG; Start 04/12/16 at 21:00 Senna (Senokot) 1 tab QHS GTB ; Start 04/12/16 at 21:00 Sodium Biphosphate/ Sodium Phosphate (Fleet Enema Pediatric) 66.6 ml DAILY PRN [place] CONSTIPATION; Start 04/11/16 at 22:30 Thiamine HCl (Vitamin B1) 100 mg DAILY GTB Last administered on 04/13/16 09:27 ; Admin Dose 100 MG; Start 04/12/16 at 09:00 Calcium Carbonate (Tums) 500 mg DAILY GTB Last administered on 04/13/16 09:14 ; Admin Dose 500 MG; Start 04/12/16 at 09:00 Multivitamins/ Minerals (Theragran-M) 1 tab DAILY PO Last administered on 09:14; Admin Dose 1 TAB; Start 04/12/16 at 09:00 Metoprolol Tartrate (Lopressor) 12.5 mg BID PO Last administered on 04/12/16 20:37; Admin Dose 12.5 MG; Start 04/12/16 at 12:30 Hydralazine HCl 10 mg 10 mg Q6H PRN IV SBP>170 Last administered on 04/12/16 15:22; Admin Dose 10 MG; Start 04/12/16 at 12:30 Vancomycin HCl 750 mg/Sodium Chloride 150 ml @ 75 mls/hr Q12H IVPB Last administered on 04/13/16 04:18; Admin Dose 75 MLS/HR; Start 04/13/16 at 04:00 Imipenem/ Cilastatin Sodium (Primaxin 500 Mg/ 100 ml (Pmx)) 100 ml @ 100 mls/ hr Q6 IVPB Last administered on 04/13/16 05:04; Admin Dose 100 MLS/HR; Start 04/13/16 at 00:00 KATHERYN LAWTON Apr 13, 2016 10:27
[2016-04-13] MEDS ORDERED: MEROPENEM 500 MG/100 ML (PMX) 100 ML IVPB SCH (13:00)
[2016-04-13] MEDS: SOD CHLORIDE 0.9% 1,000 ML IV SCH (16:51)
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
[2016-04-13 17:53] LABS: BASOPHILS % 0.2 % (0.0-2.0); EOSINOPHILS # 0.1 10^3/ul (0.0-0.5); HEMATOCRIT 28.4 % (42.0-52.0); HEMOGLOBIN 9.1 g/dl (14.0-18.0); LYMPHOCYTES # 0.7 10^3/ul (0.8-2.9); LYMPHOCYTES % 13.4 % (15.0-51.0); MEAN CORPUSCULAR HEMOGLOBIN 26.9 pg (29.0-33.0); MEAN CORPUSCULAR HGB CONC 31.9 g/dl (32.0-37.0); MEAN CORPUSCULAR VOLUME 84.5 fl (82.0-101.0); MEAN PLATELET VOLUME 7.9 fl (7.4-10.4); MONOCYTE # 0.5 10^3/ul (0.3-0.9); MONOCYTES % 9.8 % (0.0-11.0); NEUTROPHIL # 3.7 10^3/ul (1.6-7.5); NEUTROPHILS % 75.6 % (39.0-77.0); PLATELET COUNT 171 10^3/UL (140-440); RED BLOOD COUNT 3.36 10^6/ul (4.70-6.10); RED CELL DISTRIBUTION WIDTH 18.1 % (11.5-14.5); UNCORRECTED WBC 4.9 10^3/ul (4.8-10.8); WHITE BLOOD COUNT 4.9 10^3/ul (4.8-10.8)
[2016-04-13 18:02] LABS: CONDITION 1; LH ANALYZER COMMENTS 1
[2016-04-13 18:07] LABS: POTASSIUM 3.8 mmol/L (3.5-5.1)
[2016-04-13 18:09] LABS: CREATININE 0.37 mg/dl (0.61-1.24)
[2016-04-13 18:10] LABS: CALCIUM 8.3 mg/dl (8.4-10.2)
[2016-04-13] MEDS: LORAZEPAM 2 MG INJ IV PRN (19:00)
--- NOTE | 2016-04-13 19:18 | PN ---
Date/Time of Note Date/Time of Note DATE: 04/13/16 TIME: 19:12 Assessment/Plan VTE Prophylaxis VTE Prophylaxis Intervention: SCD's Lines/Catheters IV Catheter Type (from [place]): Peripheral IV Urinary Cath still in place: No Assessment/Plan Chief Complaint/Hosp Course ASSESSMENT AND PLAN: - Acute hypoxic respiratory failure. Dr. Anderson is following in pulmonology consultation. Continue ventilatory support and bronchodilators. - Possible healthcare-acquired left lower lung pneumonia versus aspiration. Continue antibiotics per ID. Dr. Rojas is following an infection disease consultation. - E. coli ESBL urinary tract infection. Continue meropenem. - Gram-negative rods bacteremia. - Normocytic anemia. - Dysphagia, with G-tube. - History of chronic respiratory failure with tracheostomy. - Benign prostatic hypertrophy. - Schizoaffective disorder. Continue Seroquel and Ativan as needed for agitation. Continue Lovenox for deep venous thrombosis prophylaxis and Pepcid for peptic ulcer disease prophylaxis. Further recommendations based on clinical course. Plan of care discussed with Dr. Colunga. Problems: Subjective 24 Hr Interval Summary Free Text/Dictation Patient continues to have moderate amount of secretions from the trach, awake alert, patient gets agitated at times according to nursing staff. Patient is afebrile. Exam/Review of Systems Vital Signs Vitals Vital Signs Date Time Temp Pulse Resp B/P Pulse Ox O2 Delivery O2 Flow Rate FiO2 04/13/16 16:17 57 04/13/16 15:31 97.5 20 178/90 97 04/13/16 15:26 5.0 35 04/13/16 14:15 Aerosol Aerosol Mask Exam GENERAL: A well-developed, cachectic gentleman, currently is awake, alert, follows immediate commands, otherwise confused. HEENT: Head is atraumatic, normocephalic. Pupils equal, round, reactive to light and accommodation. Oral mucosa is pink and moist. NECK: Supple, with tracheostomy at the base of the neck, with a moderate amount of secretions, no bleeding. LUNGS: Diminished at the bases. Patient has scattered severe rhonchi bilaterally. CARDIOVASCULAR: Normal S1, S2. No murmurs, gallops, clicks, rubs noted. ABDOMEN: Flat, soft, nondistended, nontender. Bowel sounds present. Patient has a G-tube with intact stoma. EXTREMITIES: Contractured. There is no edema, clubbing, cyanosis. Pulses equal bilaterally, 2+. SKIN: There is no rash, petechiae noted. NEUROLOGIC: Patient is awake, alert, and oriented to name and situation Results Result Diagram: 04/13/16 1730 04/13/16 1730 Results 24 hrs Laboratory Tests Test 04/13/16 17:30 Anion Gap 9 Basophils # 0.0 Basophils % 0.2 Blood Morphology Comment Blood Urea Nitrogen 13 Calcium Level 8.3 L Carbon Dioxide Level 36 H Chloride Level 97 Creatinine 0.37 L Eosinophils # 0.1 Eosinophils % 1.0 Glucose Level 85 Hematocrit 28.4 L Hemoglobin 9.1 L Lymphocytes # 0.7 L Lymphocytes % 13.4 L Mean Corpuscular Hemoglobin 26.9 L Mean Corpuscular Hemoglobin Concent 31.9 L Mean Corpuscular Volume 84.5 Mean Platelet Volume 7.9 Monocytes # 0.5 Monocytes % 9.8 Neutrophils # 3.7 Neutrophils % 75.6 Nucleated Red Blood Cells # 0.0 Nucleated Red Blood Cells % 0.0 Platelet Count 171 Potassium Level 3.8 Prealbumin 6.4 L Red Blood Count 3.36 L Red Cell Distribution Width 18.1 H Sodium Level 138 White Blood Count 4.9 # Medications Medications Current Medications Sodium Chloride (NS) 1,000 ml @ 50 mls/hr Q20H IV Last administered on 16:51; Admin Dose 50 MLS/HR; Start 04/11/16 at 22:18 Ondansetron HCl (Zofran Inj) 4 mg Q6H PRN IV NAUSEA AND/OR VOMITING; Start at 22:30 Acetaminophen (Tylenol Tab) 650 mg Q6H PRN PO PAIN LEVEL 1-3 OR FEVER; Start at 22:30 Morphine Sulfate (morphine) 2 mg Q4H PRN IV PAIN LEVEL 7-10; Start 04/11/16 at 22:30 Famotidine (Pepcid Iv) 20 mg Q12 IV Last administered on 04/13/16 09:14; Admin Dose 20 MG; Start 04/12/16 at 09:00 Enoxaparin Sodium (Lovenox) 30 mg DAILY SC Last administered on 04/13/16 09:41 ; Admin Dose 30 MG; Start 04/12/16 at 09:00 Ascorbic Acid (Vitamin C) 500 mg DAILY GTB Last administered on 04/13/16 09:14 ; Admin Dose 500 MG; Start 04/12/16 at 09:00 Bisacodyl (Dulcolax) 10 mg DAILY PRN PO CONSTIPATION; Start 04/11/16 at 22:30 Chlorhexidine Gluconate (Peridex) 15 ml BID MM Last administered on 04/13/16 09:13; Admin Dose 15 ML; Start 04/12/16 at 09:00 Ferrous Sulfate (Feosol Liquid Cup) 300 mg BID GTB Last administered on 09:13; Admin Dose 300 MG; Start 04/12/16 at 09:00 Acetaminophen/ Hydrocodone Bitart ([place] (5/325)) 1 tab Q4 PRN GTB PAIN LEVEL 6 -10; Start 04/11/16 at 22:30 Lactulose (Enulose) 20 gm DAILY GTB Last administered on 04/13/16 09:13; Admin Dose 20 GM; Start 04/12/16 at 09:00 Lorazepam (Ativan) 1 mg Q6 GTB Last administered on 04/13/16 12:10; Admin Dose 1 MG; Start 04/12/16 at 00:00 Quetiapine Fumarate (Seroquel) 25 mg BID@ GTB Last administered on 16:48; Admin Dose 25 MG; Start 04/12/16 at 09:00 Quetiapine Fumarate (Seroquel) 200 mg HS GTB Last administered on 04/12/16 20: 37; Admin Dose 200 MG; Start 04/12/16 at 21:00 Senna (Senokot) 1 tab QHS GTB ; Start 04/12/16 at 21:00 Sodium Biphosphate/ Sodium Phosphate (Fleet Enema Pediatric) 66.6 ml DAILY PRN [place] CONSTIPATION; Start 04/11/16 at 22:30 Thiamine HCl (Vitamin B1) 100 mg DAILY GTB Last administered on 04/13/16 09:27 ; Admin Dose 100 MG; Start 04/12/16 at 09:00 Calcium Carbonate (Tums) 500 mg DAILY GTB Last administered on 04/13/16 09:14 ; Admin Dose 500 MG; Start 04/12/16 at 09:00 Multivitamins/ Minerals (Theragran-M) 1 tab DAILY PO Last administered on 09:14; Admin Dose 1 TAB; Start 04/12/16 at 09:00 Metoprolol Tartrate (Lopressor) 12.5 mg BID PO Last administered on 04/12/16 20:37; Admin Dose 12.5 MG; Start 04/12/16 at 12:30 Hydralazine HCl 10 mg 10 mg Q6H PRN IV SBP>170 Last administered on 04/12/16 15:22; Admin Dose 10 MG; Start 04/12/16 at 12:30 Vancomycin HCl/ Sodium Chloride (Vancocin/NS) 150 ml @ 75 mls/hr Q12H IVPB Last administered on 04/13/16 16:45; Admin Dose 75 MLS/HR; Start 04/13/16 at 04 :00 Miscellaneous Information 1 ONCE ONCE XX ; Start 04/14/16 at 03:00; Stop at 03:01 Ertapenem/Sodium Chloride (Invanz/NS) 100 ml @ 200 mls/hr Q24H IVPB ; Start at 17:00 Lorazepam (Ativan) 1 mg Q6H PRN IV AGITATION/ANXIETY Last administered on 19:00; Admin Dose 1 MG; Start 04/13/16 at 19:00 SHELBY BUNCH Apr 13, 2016 19:18
[2016-04-13] MEDS: QUETIAPINE 100 MG TAB GTB SCH (20:17)
[2016-04-13] MEDS: SENNA TAB GTB SCH (20:18)
[2016-04-13] MEDS: ERTAPENEM SODIUM 1 GM in SOD CHLORIDE 0.9% 100 ML IVPB SCH (20:20)
[2016-04-14] VITALS (15 sets, daily range): BP systolic 93–196; BP diastolic 57–95; PULSE 60–75; RESP 18–22
[2016-04-14] MEDS: ALBUTEROL/IPRATROPIUM (NEB) 3 ML AMP INH SCH ×5 (01:20→20:50)
[2016-04-14 03:35] LABS: BASOPHILS % 0.3 % (0.0-2.0); EOSINOPHILS # 0.1 10^3/ul (0.0-0.5); EOSINOPHILS % 1.8 % (0.0-7.0); HEMATOCRIT 28.9 % (42.0-52.0); HEMOGLOBIN 9.3 g/dl (14.0-18.0); LYMPHOCYTES # 0.7 10^3/ul (0.8-2.9); LYMPHOCYTES % 20.5 % (15.0-51.0); MEAN CORPUSCULAR HEMOGLOBIN 27.2 pg (29.0-33.0); MEAN CORPUSCULAR HGB CONC 32.1 g/dl (32.0-37.0); MEAN CORPUSCULAR VOLUME 84.8 fl (82.0-101.0); MEAN PLATELET VOLUME 7.5 fl (7.4-10.4); MONOCYTE # 0.4 10^3/ul (0.3-0.9); MONOCYTES % 10.1 % (0.0-11.0); NEUTROPHIL # 2.4 10^3/ul (1.6-7.5); NEUTROPHILS % 67.3 % (39.0-77.0); PLATELET COUNT 172 10^3/UL (140-440); RED BLOOD COUNT 3.41 10^6/ul (4.70-6.10); RED CELL DISTRIBUTION WIDTH 18.4 % (11.5-14.5); UNCORRECTED WBC 3.6 10^3/ul (4.8-10.8); WHITE BLOOD COUNT 3.6 10^3/ul (4.8-10.8)
[2016-04-14 03:41] LABS: CONDITION 1; LH ANALYZER COMMENTS 1; POTASSIUM 3.7 mmol/L (3.5-5.1)
[2016-04-14 03:43] LABS: CREATININE 0.36 mg/dl (0.61-1.24)
[2016-04-14 03:44] LABS: CALCIUM 8.3 mg/dl (8.4-10.2)
[2016-04-14] MEDS: VANCOMYCIN 750 MG in SOD CHLORIDE 0.9% 150 ML IVPB SCH (04:16)
[2016-04-14] MEDS: LORAZEPAM 1 MG TAB GTB SCH ×4 (05:47→23:42)
--- NOTE | 2016-04-14 07:32 | RADRPT ---
PROCEDURE: XR Chest. CLINICAL INDICATION: Pneumonia TECHNIQUE: An AP view of the chest was obtained. COMPARISON: Chest x-ray dated 04/11/2016 FINDINGS: A tracheostomy tube is in place. There is prominence of the interstitial markings with bibasilar interstitial opacities and small bi lateral pleural effusions. No pneumothorax is seen. The cardiomediastinal silhouette is mildly e nlarged . Calcifications are seen within the aortic arch. The osseous structures demonstrate senesc ent changes. IMPRESSION: 1. Significant improved aeration of the left lung when compared to the prior examination. Now note d are findings suggestive of pulmonary vascular congestion/interstitial edema. There are small bila teral pleural effusions, increased when compared to the prior examination. 2. Mild cardiomegaly and aortic atherosclerosis. 3. Tracheostomy tube in place. RPTAT: HH .Mar Cummins MD, MD Date Time Electronically viewed and signed by .Mar Cummins MD, on 04/14/2016 07:31 .G/
[2016-04-14] MEDS: CHLORHEXIDINE GLUCONATE 15 ML UD CUP MM SCH ×2 (08:59→21:31)
[2016-04-14] MEDS: LACTULOSE 30ML CUP GTB SCH (08:59)
[2016-04-14] MEDS: FERROUS SULFATE 60 MG/ML 5ML CUP GTB SCH ×2 (08:59→21:29)
[2016-04-14] MEDS: ASCORBIC ACID 500 MG TAB GTB SCH (09:00)
[2016-04-14] MEDS: MULTIVITAMINS/MINERALS TAB PO SCH (09:00)
[2016-04-14] MEDS: METOPROLOL 25 MG TAB PO SCH ×2 (09:00→22:05)
[2016-04-14] MEDS: THIAMINE 100 MG TAB GTB SCH (09:01)
[2016-04-14] MEDS: CALCIUM CARBONATE 500 MG CHEW TAB GTB SCH (09:01)
[2016-04-14] MEDS: QUETIAPINE 25 MG TAB GTB SCH ×2 (09:01→17:52)
[2016-04-14] MEDS: FAMOTIDINE 20 MG INJ IV SCH ×2 (09:01→21:30)
[2016-04-14] MEDS: ENOXAPARIN 30 MG/0.3 ML SYG SC SCH (09:03)
[2016-04-14] MEDS: SOD CHLORIDE 0.9% 1,000 ML IV SCH (10:18)
--- NOTE | 2016-04-14 11:01 | CONS ---
Date/Time of Note Date/Time of Note DATE: 04/14/16 TIME: 10:59 Assessment/Plan Assessment/Plan Additional Assessment/Plan Chest x-ray was reviewed from today which is showing marked improvement in extensive left-sided infiltrate/atelectasis. Assessment recommendations; 1. Patient admitted with extensive left-sided pneumonia as well as atelectasis with marked clinical and neurologic improvement. 2. History of paraplegia. 3. History of alcoholism. Continue current treatment. Consultation Date/Type/Reason Admit Date/Time Apr 11, 2016 at 22:13 Initial Consult Date 04/12/16 Type of Consultation: Pulmonary/critical care 24 HR Interval Summary Free Text/Dictation Patient condition is stable. Denies any shortness of breath. General examination; elderly male, currently in no distress maintained on T piece. Exam/Review of Systems Vital Signs Vitals Vital Signs Date Time Temp Pulse Resp B/P Pulse Ox O2 Delivery O2 Flow Rate FiO2 04/14/16 09:15 100 5.0 28 04/14/16 09:15 66 20 Aerosol T Tube 04/14/16 07:11 97.5 172/90 Intake and Output 04/13/16 04/13/16 04/14/16 15:00 23:00 07:00 Intake Total 680 ml 650 ml Balance 680 ml 650 ml Exam HEENT examination; supple neck, no JVD. No lymphadenopathy. Midline trachea. Tracheostomy in place with clean insertion site. Pupils are midsize and reactive to light. He has only a few remaining teeth present. Chest examination; right lung is clear to auscultation with marked improvement in left-sided breath sounds. S1-S2 audible, no murmurs. Regular rhythm. Abdomen examination; soft, nondistended. No organomegaly. G-tube in place. Bowel sounds audible. Extremity examination; no peripheral edema. Flexion contractions are present in both lower extremities. 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 Results Result Diagram: 04/14/16 0323 04/14/16 0323 Results 24 hrs Laboratory Tests Test 04/13/16 17:30 04/14/16 03:23 Anion Gap 9 10 Basophils # 0.0 0.0 Basophils % 0.2 0.3 Blood Morphology Comment Blood Urea Nitrogen 13 12 Calcium Level 8.3 L 8.3 L Carbon Dioxide Level 36 H 33 H Chloride Level 97 99 Creatinine 0.37 L 0.36 L Eosinophils # 0.1 0.1 Eosinophils % 1.0 1.8 Glucose Level 85 101 Hematocrit 28.4 L 28.9 L Hemoglobin 9.1 L 9.3 L Lymphocytes # 0.7 L 0.7 L Lymphocytes % 13.4 L 20.5 Mean Corpuscular Hemoglobin 26.9 L 27.2 L Mean Corpuscular Hemoglobin Concent 31.9 L 32.1 Mean Corpuscular Volume 84.5 84.8 Mean Platelet Volume 7.9 7.5 Monocytes # 0.5 0.4 Monocytes % 9.8 10.1 Neutrophils # 3.7 2.4 Neutrophils % 75.6 67.3 Nucleated Red Blood Cells # 0.0 0.0 Nucleated Red Blood Cells % 0.0 0.0 Platelet Count 171 172 Potassium Level 3.8 3.7 Prealbumin 6.4 L Red Blood Count 3.36 L 3.41 L Red Cell Distribution Width 18.1 H 18.4 H Sodium Level 138 138 White Blood Count 4.9 # 3.6 #L Vancomycin Level Trough 10.9 Medications Medications Current Medications Sodium Chloride (NS) 1,000 ml @ 50 mls/hr Q20H IV Last administered on 16:51; Admin Dose 50 MLS/HR; Start 04/11/16 at 22:18 Ondansetron HCl (Zofran Inj) 4 mg Q6H PRN IV NAUSEA AND/OR VOMITING; Start at 22:30 Acetaminophen (Tylenol Tab) 650 mg Q6H PRN PO PAIN LEVEL 1-3 OR FEVER; Start at 22:30 Morphine Sulfate (morphine) 2 mg Q4H PRN IV PAIN LEVEL 7-10; Start 04/11/16 at 22:30 Famotidine (Pepcid Iv) 20 mg Q12 IV Last administered on 04/14/16 09:01; Admin Dose 20 MG; Start 04/12/16 at 09:00 Enoxaparin Sodium (Lovenox) 30 mg DAILY SC Last administered on 04/14/16 09:03 ; Admin Dose 30 MG; Start 04/12/16 at 09:00 Ascorbic Acid (Vitamin C) 500 mg DAILY GTB Last administered on 04/14/16 09:00 ; Admin Dose 500 MG; Start 04/12/16 at 09:00 Bisacodyl (Dulcolax) 10 mg DAILY PRN PO CONSTIPATION; Start 04/11/16 at 22:30 Chlorhexidine Gluconate (Peridex) 15 ml BID MM Last administered on 04/14/16 08:59; Admin Dose 15 ML; Start 04/12/16 at 09:00 Ferrous Sulfate (Feosol Liquid Cup) 300 mg BID GTB Last administered on 08:59; Admin Dose 300 MG; Start 04/12/16 at 09:00 Acetaminophen/ Hydrocodone Bitart ([place] (5/325)) 1 tab Q4 PRN GTB PAIN LEVEL 6 -10; Start 04/11/16 at 22:30 Lactulose (Enulose) 20 gm DAILY GTB Last administered on 04/14/16 08:59; Admin Dose 20 GM; Start 04/12/16 at 09:00 Lorazepam (Ativan) 1 mg Q6 GTB Last administered on 04/14/16 05:47; Admin Dose 1 MG; Start 04/12/16 at 00:00 Quetiapine Fumarate (Seroquel) 25 mg BID@ GTB Last administered on 09:01; Admin Dose 25 MG; Start 04/12/16 at 09:00 Quetiapine Fumarate (Seroquel) 200 mg HS GTB Last administered on 04/13/16 20: 17; Admin Dose 200 MG; Start 04/12/16 at 21:00 Senna (Senokot) 1 tab QHS GTB Last administered on 04/13/16 20:18; Admin Dose 1 TAB; Start 04/12/16 at 21:00 Sodium Biphosphate/ Sodium Phosphate (Fleet Enema Pediatric) 66.6 ml DAILY PRN [place] CONSTIPATION; Start 04/11/16 at 22:30 Thiamine HCl (Vitamin B1) 100 mg DAILY GTB Last administered on 04/14/16 09:01 ; Admin Dose 100 MG; Start 04/12/16 at 09:00 Calcium Carbonate (Tums) 500 mg DAILY GTB Last administered on 04/14/16 09:01 ; Admin Dose 500 MG; Start 04/12/16 at 09:00 Multivitamins/ Minerals (Theragran-M) 1 tab DAILY PO Last administered on 09:00; Admin Dose 1 TAB; Start 04/12/16 at 09:00 Metoprolol Tartrate (Lopressor) 12.5 mg BID PO Last administered on 04/14/16 09:00; Admin Dose 12.5 MG; Start 04/12/16 at 12:30 Hydralazine HCl 10 mg 10 mg Q6H PRN IV SBP>170 Last administered on 04/12/16 15:22; Admin Dose 10 MG; Start 04/12/16 at 12:30 Vancomycin HCl 750 mg/Sodium Chloride 150 ml @ 75 mls/hr Q12H IVPB Last administered on 04/14/16 04:16; Admin Dose 75 MLS/HR; Start 04/13/16 at 04:00 Ertapenem/Sodium Chloride (Invanz/NS) 100 ml @ 200 mls/hr Q24H IVPB Last administered on 04/13/16 20:20; Admin Dose 200 MLS/HR; Start 04/13/16 at 17:00 Lorazepam (Ativan) 1 mg Q6H PRN IV AGITATION/ANXIETY Last administered on 19:00; Admin Dose 1 MG; Start 04/13/16 at 19:00 KATHERYN LAWTON Apr 14, 2016 11:01
--- NOTE | 2016-04-14 14:10 | PN ---
Date/Time of Note Date/Time of Note DATE: 04/14/16 TIME: 14:05 Assessment/Plan VTE Prophylaxis VTE Prophylaxis Intervention: SCD's Lines/Catheters IV Catheter Type (from [facility]): Peripheral IV Urinary Cath still in place: Yes Reason Cath still needed: urinary retention Assessment/Plan Chief Complaint/Hosp Course ASSESSMENT AND PLAN: - Acute hypoxic respiratory failure. Dr. Anderson is following in pulmonology consultation. Continue ventilatory support and bronchodilators. - Possible healthcare-acquired left lower lung pneumonia versus aspiration. Continue antibiotics per ID. Dr. Rojas is following an infection disease consultation. - E. coli ESBL urinary tract infection. Continue meropenem. - Sepsis with Ecoli ESBL bacteremia 2 UTI. - Normocytic anemia. - Dysphagia, with G-tube. - History of chronic respiratory failure with tracheostomy. - Benign prostatic hypertrophy. - Schizoaffective disorder. Continue Seroquel and Ativan as needed for agitation. Continue Lovenox for deep venous thrombosis prophylaxis and Pepcid for peptic ulcer disease prophylaxis. Further recommendations based on clinical course. Plan of care discussed with Dr. Colunga. Problems: Subjective 24 Hr Interval Summary Free Text/Dictation Patient is awake alert, remains afebrile, tolerates G-tube feeding well, patient has periods of agitation, pulled out IV per nursing staff. Exam/Review of Systems Vital Signs Vitals Vital Signs Date Time Temp Pulse Resp B/P Pulse Ox O2 Delivery O2 Flow Rate FiO2 04/14/16 11:09 97.9 60 22 178/95 97 04/14/16 09:15 5.0 28 04/14/16 09:15 Aerosol T Tube Intake and Output 04/13/16 04/13/16 04/14/16 15:00 23:00 07:00 Intake Total 680 ml 650 ml Balance 680 ml 650 ml Exam GENERAL: A well-developed, cachectic gentleman, currently is awake, alert, follows immediate commands, otherwise confused. HEENT: Head is atraumatic, normocephalic. LYDIA. NECK: Supple, with tracheostomy at the base of the neck, with a moderate amount of secretions, no bleeding. LUNGS: Diminished at the bases. Patient has scattered severe rhonchi bilaterally. CARDIOVASCULAR: Normal S1, S2. No murmurs, gallops, clicks, rubs noted. ABDOMEN: Flat, soft, nondistended, nontender. Bowel sounds present. Patient has a G-tube with intact stoma. EXTREMITIES: Contractured. There is no edema, clubbing, cyanosis. Pulses equal bilaterally, 2+. SKIN: There is no rash, petechiae noted. NEUROLOGIC: Patient is awake, alert. Results Result Diagram: 04/14/16 0323 04/14/16 0323 Results 24 hrs Laboratory Tests Test 04/13/16 17:30 04/14/16 03:23 Anion Gap 9 10 Basophils # 0.0 0.0 Basophils % 0.2 0.3 Blood Morphology Comment Blood Urea Nitrogen 13 12 Calcium Level 8.3 L 8.3 L Carbon Dioxide Level 36 H 33 H Chloride Level 97 99 Creatinine 0.37 L 0.36 L Eosinophils # 0.1 0.1 Eosinophils % 1.0 1.8 Glucose Level 85 101 Hematocrit 28.4 L 28.9 L Hemoglobin 9.1 L 9.3 L Lymphocytes # 0.7 L 0.7 L Lymphocytes % 13.4 L 20.5 Mean Corpuscular Hemoglobin 26.9 L 27.2 L Mean Corpuscular Hemoglobin Concent 31.9 L 32.1 Mean Corpuscular Volume 84.5 84.8 Mean Platelet Volume 7.9 7.5 Monocytes # 0.5 0.4 Monocytes % 9.8 10.1 Neutrophils # 3.7 2.4 Neutrophils % 75.6 67.3 Nucleated Red Blood Cells # 0.0 0.0 Nucleated Red Blood Cells % 0.0 0.0 Platelet Count 171 172 Potassium Level 3.8 3.7 Prealbumin 6.4 L Red Blood Count 3.36 L 3.41 L Red Cell Distribution Width 18.1 H 18.4 H Sodium Level 138 138 White Blood Count 4.9 # 3.6 #L Vancomycin Level Trough 10.9 Medications Medications Current Medications Sodium Chloride (NS) 1,000 ml @ 50 mls/hr Q20H IV Last administered on t 16:51; Admin Dose 50 MLS/HR; Start 04/11/16 at 22:18 Ondansetron HCl (Zofran Inj) 4 mg Q6H PRN IV NAUSEA AND/OR VOMITING; Start at 22:30 Acetaminophen (Tylenol Tab) 650 mg Q6H PRN PO PAIN LEVEL 1-3 OR FEVER; Start at 22:30 Morphine Sulfate (morphine) 2 mg Q4H PRN IV PAIN LEVEL 7-10; Start 04/11/16 at 22:30 Famotidine (Pepcid Iv) 20 mg Q12 IV Last administered on 04/14/16 09:01; Admin Dose 20 MG; Start 04/12/16 at 09:00 Enoxaparin Sodium (Lovenox) 30 mg DAILY SC Last administered on 04/14/16 09:03 ; Admin Dose 30 MG; Start 04/12/16 at 09:00 Ascorbic Acid (Vitamin C) 500 mg DAILY GTB Last administered on 04/14/16 09:00 ; Admin Dose 500 MG; Start 04/12/16 at 09:00 Bisacodyl (Dulcolax) 10 mg DAILY PRN PO CONSTIPATION; Start 04/11/16 at 22:30 Chlorhexidine Gluconate (Peridex) 15 ml BID MM Last administered on 04/14/16 08:59; Admin Dose 15 ML; Start 04/12/16 at 09:00 Ferrous Sulfate (Feosol Liquid Cup) 300 mg BID GTB Last administered on 08:59; Admin Dose 300 MG; Start 04/12/16 at 09:00 Acetaminophen/ Hydrocodone Bitart ([place] (5/325)) 1 tab Q4 PRN GTB PAIN LEVEL 6 -10; Start 04/11/16 at 22:30 Lactulose (Enulose) 20 gm DAILY GTB Last administered on 04/14/16 08:59; Admin Dose 20 GM; Start 04/12/16 at 09:00 Lorazepam (Ativan) 1 mg Q6 GTB Last administered on 04/14/16 12:29; Admin Dose 1 MG; Start 04/12/16 at 00:00 Quetiapine Fumarate (Seroquel) 25 mg BID@ GTB Last administered on 09:01; Admin Dose 25 MG; Start 04/12/16 at 09:00 Quetiapine Fumarate (Seroquel) 200 mg HS GTB Last administered on 04/13/16 20: 17; Admin Dose 200 MG; Start 04/12/16 at 21:00 Senna (Senokot) 1 tab QHS GTB Last administered on 04/13/16 20:18; Admin Dose 1 TAB; Start 04/12/16 at 21:00 Sodium Biphosphate/ Sodium Phosphate (Fleet Enema Pediatric) 66.6 ml DAILY PRN [place] CONSTIPATION; Start 04/11/16 at 22:30 Thiamine HCl (Vitamin B1) 100 mg DAILY GTB Last administered on 04/14/16 09:01 ; Admin Dose 100 MG; Start 04/12/16 at 09:00 Calcium Carbonate (Tums) 500 mg DAILY GTB Last administered on 04/14/16 09:01 ; Admin Dose 500 MG; Start 04/12/16 at 09:00 Multivitamins/ Minerals (Theragran-M) 1 tab DAILY PO Last administered on 09:00; Admin Dose 1 TAB; Start 04/12/16 at 09:00 Metoprolol Tartrate (Lopressor) 12.5 mg BID PO Last administered on 04/14/16 09:00; Admin Dose 12.5 MG; Start 04/12/16 at 12:30 Hydralazine HCl 10 mg 10 mg Q6H PRN IV SBP>170 Last administered on 04/12/16 15:22; Admin Dose 10 MG; Start 04/12/16 at 12:30 Ertapenem/Sodium Chloride (Invanz/NS) 100 ml @ 200 mls/hr Q24H IVPB Last administered on 04/13/16 20:20; Admin Dose 200 MLS/HR; Start 04/13/16 at 17:00 Lorazepam 1 mg 1 mg Q6H PRN IV AGITATION/ANXIETY Last administered on 19:00; Admin Dose 1 MG; Start 04/13/16 at 19:00 Vancomycin HCl (Vancocin) 250 ml @ 125 mls/hr Q12H IVPB ; Start 04/14/16 at 16: 00 SHELBY BUNCH Apr 14, 2016 14:10
--- NOTE | 2016-04-14 14:32 | PN ---
DATE: 04/14/2016 SUBJECTIVE: No acute events overnight. The patient is awake, lying comfortably in bed. No fevers. LABORATORY DATA: WBC 3.6, no shift, no bands. BUN 12, creatinine 0.36. MICROBIOLOGY: Blood and urine cultures on admission grew E. coli ESBL. Repeat blood cultures negat josey. ANTIMICROBIALS: The patient is on Invanz. INDWELLINGS: Trach, PEG, Rae. PHYSICAL EXAMINATION: GENERAL: Chronically ill-appearing, elderly man who is lying comfortably in bed. HEENT: Head atraumatic, normocephalic. Sclerae anicteric. Buccal mucosa dry. NECK: Supple. Tracheostomy present. CHEST: Rise symmetrical. Breath sounds diminished to bases with scattered crackles. HEART: S1, S2. ABDOMEN: Soft. Bowel sounds present. EXTREMITIES: No cyanosis. ASSESSMENT: 1. Sepsis with Escherichia coli extended-spectrum beta-lactamase bacteremia secondary to #2. 2. Escherichia coli extended-spectrum beta-lactamase urinary tract infection. 3. Healthcare-associated pneumonia. 4. Chronic respiratory failure. 5. History of schizoaffective disorder. 6. Dementia. 7. Benign prostatic hypertrophy. PLAN: The patient remains stable. We will continue him on current antimicrobials. Monitor chest x -ray. Follow pulmonary recommendations. Dictated By: MARK LONG WIRE TWISTING MACHINE OPERATOR for [place] SAMAYOA/DAVID Conf#: [id number] DID#: [id number]
[2016-04-14] MEDS: LORAZEPAM 2 MG INJ IV PRN (14:39)
[2016-04-14] MEDS: SENNA TAB GTB SCH (21:30)
[2016-04-14] MEDS: QUETIAPINE 100 MG TAB GTB SCH (21:59)
[2016-04-14] MEDS: hydrALAzine 20 MG INJ IV PRN (22:04)
[2016-04-14] MEDS: ERTAPENEM SODIUM 1 GM in SOD CHLORIDE 0.9% 100 ML IVPB SCH (22:39)
[2016-04-14] MEDS: VANCOMYCIN 1 GM in NS 250 ML IVPB SCH (23:23)
[2016-04-15] VITALS (14 sets, daily range): BP systolic 100–181; BP diastolic 62–99; PULSE 63–83; RESP 18–20
[2016-04-15] MEDS: ALBUTEROL/IPRATROPIUM (NEB) 3 ML AMP INH SCH ×4 (01:43→19:48)
[2016-04-15] MEDS: VANCOMYCIN 1 GM in NS 250 ML IVPB SCH ×2 (03:58→15:07)
[2016-04-15] MEDS: LORAZEPAM 1 MG TAB GTB SCH ×3 (05:32→17:08)
[2016-04-15] MEDS: SOD CHLORIDE 0.9% 1,000 ML IV SCH ×2 (06:18→22:44)
[2016-04-15] MEDS: METOPROLOL 25 MG TAB PO SCH ×2 (09:00→21:00)
[2016-04-15] MEDS: LACTULOSE 30ML CUP GTB SCH (09:00)
[2016-04-15] MEDS: FERROUS SULFATE 60 MG/ML 5ML CUP GTB SCH ×2 (09:28→21:00)
[2016-04-15] MEDS: CALCIUM CARBONATE 500 MG CHEW TAB GTB SCH (09:29)
[2016-04-15] MEDS: ASCORBIC ACID 500 MG TAB GTB SCH (09:34)
[2016-04-15] MEDS: FAMOTIDINE 20 MG INJ IV SCH ×2 (09:34→22:02)
[2016-04-15] MEDS: CHLORHEXIDINE GLUCONATE 15 ML UD CUP MM SCH ×2 (09:34→22:02)
[2016-04-15] MEDS: THIAMINE 100 MG TAB GTB SCH (09:34)
[2016-04-15] MEDS: MULTIVITAMINS/MINERALS TAB PO SCH (09:40)
[2016-04-15] MEDS: ENOXAPARIN 30 MG/0.3 ML SYG SC SCH (09:40)
[2016-04-15] MEDS: QUETIAPINE 25 MG TAB GTB SCH ×2 (09:40→17:08)
--- NOTE | 2016-04-15 11:54 | CONS ---
Date/Time of Note Date/Time of Note DATE: 04/15/16 TIME: 11:51 Assessment/Plan Assessment/Plan Additional Assessment/Plan Assessment and recommendations; 1. Patient admitted with extensive left-sided pneumonia with marked clinical and radiological improvement. 2. History of paraplegia. 3. History of alcoholism. 4. History of dementia. Continue current treatment. Consultation Date/Type/Reason Admit Date/Time Apr 11, 2016 at 22:13 Initial Consult Date 04/12/16 Type of Consultation: Pulmonary/critical care 24 HR Interval Summary Free Text/Dictation Patient condition is stable. Patient has been transferred out of telemetry unit to the regular medical floor. Awake and alert. Denies any shortness of breath. General examination; elderly male, currently in no distress. Awake and alert. Exam/Review of Systems Vital Signs Vitals Vital Signs Date Time Temp Pulse Resp B/P Pulse Ox O2 Delivery O2 Flow Rate FiO2 04/15/16 10:00 63 18 159/99 100 Trach Collar 04/15/16 08:29 8.0 35 04/15/16 07:30 98.6 Intake and Output 04/14/16 04/14/16 04/15/16 15:00 23:00 07:00 Intake Total 1655 ml Balance 1655 ml Exam H EENT examination; supple neck, no JVD. No lymphadenopathy. Colostomy in place. Attached to T piece. Upper jaw is edentulous. No neck masses. Chest examination; limited decreased breath sounds left lung , right lung is clear to auscultation. S1-S2 audible, no murmurs. Regular rhythm. Abdomen examination soft, nontender. No organomegaly. G-tube in place. Bowel sounds audible. Extremity examination; no peripheral edema. Patient has stable paraplegia. POULTRY PICKER examination; patient is awake but is confused. Which apparently is his baseline mental status. Results Result Diagram: 04/14/16 0323 04/14/16 0323 Medications Medications Current Medications Sodium Chloride (NS) 1,000 ml @ 50 mls/hr Q20H IV Last administered on t 10:18; Admin Dose 50 MLS/HR; Start 04/11/16 at 22:18 Ondansetron HCl (Zofran Inj) 4 mg Q6H PRN IV NAUSEA AND/OR VOMITING; Start at 22:30 Acetaminophen (Tylenol Tab) 650 mg Q6H PRN PO PAIN LEVEL 1-3 OR FEVER; Start at 22:30 Morphine Sulfate (morphine) 2 mg Q4H PRN IV PAIN LEVEL 7-10; Start 04/11/16 at 22:30 Famotidine (Pepcid Iv) 20 mg Q12 IV Last administered on 04/15/16 09:34; Admin Dose 20 MG; Start 04/12/16 at 09:00 Enoxaparin Sodium (Lovenox) 30 mg DAILY SC Last administered on 04/15/16 09:40 ; Admin Dose 30 MG; Start 04/12/16 at 09:00 Ascorbic Acid (Vitamin C) 500 mg DAILY GTB Last administered on 04/15/16 09:34 ; Admin Dose 500 MG; Start 04/12/16 at 09:00 Bisacodyl (Dulcolax) 10 mg DAILY PRN PO CONSTIPATION; Start 04/11/16 at 22:30 Chlorhexidine Gluconate (Peridex) 15 ml BID MM Last administered on 04/15/16 09:34; Admin Dose 15 ML; Start 04/12/16 at 09:00 Ferrous Sulfate (Feosol Liquid Cup) 300 mg BID GTB Last administered on 09:28; Admin Dose 300 MG; Start 04/12/16 at 09:00 Acetaminophen/ Hydrocodone Bitart ([place] (5/325)) 1 tab Q4 PRN GTB PAIN LEVEL 6 -10; Start 04/11/16 at 22:30 Lactulose (Enulose) 20 gm DAILY GTB Last administered on 04/14/16 08:59; Admin Dose 20 GM; Start 04/12/16 at 09:00 Lorazepam (Ativan) 1 mg Q6 GTB Last administered on 04/15/16 05:32; Admin Dose 1 MG; Start 04/12/16 at 00:00 Quetiapine Fumarate (Seroquel) 25 mg BID@ GTB Last administered on 09:40; Admin Dose 25 MG; Start 04/12/16 at 09:00 Quetiapine Fumarate (Seroquel) 200 mg HS GTB Last administered on 04/14/16 21: 59; Admin Dose 200 MG; Start 04/12/16 at 21:00 Senna (Senokot) 1 tab QHS GTB Last administered on 04/14/16 21:30; Admin Dose 1 TAB; Start 04/12/16 at 21:00 Sodium Biphosphate/ Sodium Phosphate (Fleet Enema Pediatric) 66.6 ml DAILY PRN [place] CONSTIPATION; Start 04/11/16 at 22:30 Thiamine HCl (Vitamin B1) 100 mg DAILY GTB Last administered on 04/15/16 09:34 ; Admin Dose 100 MG; Start 04/12/16 at 09:00 Calcium Carbonate (Tums) 500 mg DAILY GTB Last administered on 04/15/16 09:29 ; Admin Dose 500 MG; Start 04/12/16 at 09:00 Multivitamins/ Minerals (Theragran-M) 1 tab DAILY PO Last administered on 09:40; Admin Dose 1 TAB; Start 04/12/16 at 09:00 Metoprolol Tartrate (Lopressor) 12.5 mg BID PO Last administered on 04/14/16 22:05; Admin Dose 12.5 MG; Start 04/12/16 at 12:30 Hydralazine HCl 10 mg 10 mg Q6H PRN IV SBP>170 Last administered on 04/14/16 22:04; Admin Dose 10 MG; Start 04/12/16 at 12:30 Ertapenem/Sodium Chloride (Invanz/NS) 100 ml @ 200 mls/hr Q24H IVPB Last administered on 04/14/16 22:39; Admin Dose 200 MLS/HR; Start 04/13/16 at 17:00 Lorazepam 1 mg 1 mg Q6H PRN IV AGITATION/ANXIETY Last administered on 14:39; Admin Dose 1 MG; Start 04/13/16 at 19:00 Vancomycin HCl (Vancocin) 250 ml @ 125 mls/hr Q12H IVPB Last administered on 03:58; Admin Dose 125 MLS/HR; Start 04/14/16 at 16:00 KATHERYN LAWTON Apr 15, 2016 11:53
--- NOTE | 2016-04-15 13:43 | CONS ---
Date/Time of Note Date/Time of Note DATE: 04/15/16 TIME: 13:41 Assessment/Plan Assessment/Plan Chief Complaint/Hosp Course SUBJECTIVE: No acute events overnight. The patient is awake, lying comfortably in bed. No fevers. MICROBIOLOGY: Blood and urine cultures on admission grew E. coli ESBL. Repeat blood cultures negative. ANTIMICROBIALS: Vanco, Invanz. INDWELLINGS: Trach, PEG, Rae. PHYSICAL EXAMINATION: GENERAL: Chronically ill-appearing, elderly man who is lying comfortably in bed. HEENT: Head atraumatic, normocephalic. Sclerae anicteric. Buccal mucosa dry. NECK: Supple. Tracheostomy present. CHEST: Rise symmetrical. Breath sounds diminished to bases with scattered crackles. HEART: S1, S2. ABDOMEN: Soft. Bowel sounds present. EXTREMITIES: No cyanosis. ASSESSMENT: 1. Sepsis with Escherichia coli extended-spectrum beta-lactamase bacteremia secondary to #2. 2. Escherichia coli extended-spectrum beta-lactamase urinary tract infection. 3. Healthcare-associated pneumonia. 4. Chronic respiratory failure. 5. History of schizoaffective disorder. 6. Dementia. 7. Benign prostatic hypertrophy. PLAN: The patient remains stable. Continue abx, aspiration precautions, follow pulmonary recommendations. Anticipate treating with Invanz for 2 weeks for bacteremia DW staff Problems: Consultation Date/Type/Reason Admit Date/Time Apr 11, 2016 at 22:13 Initial Consult Date 04/12/16 Type of Consultation: ID Exam/Review of Systems Vital Signs Vitals Vital Signs Date Time Temp Pulse Resp B/P Pulse Ox O2 Delivery O2 Flow Rate FiO2 04/15/16 12:00 66 18 145/87 96 Trach Collar 04/15/16 08:29 8.0 35 04/15/16 07:30 98.6 Intake and Output 04/14/16 04/14/16 04/15/16 15:00 23:00 07:00 Intake Total 1655 ml Balance 1655 ml Results Result Diagram: 04/14/16 0323 04/14/16 0323 Medications Medications Current Medications Sodium Chloride (NS) 1,000 ml @ 50 mls/hr Q20H IV Last administered on t 10:18; Admin Dose 50 MLS/HR; Start 04/11/16 at 22:18 Ondansetron HCl (Zofran Inj) 4 mg Q6H PRN IV NAUSEA AND/OR VOMITING; Start at 22:30 Acetaminophen (Tylenol Tab) 650 mg Q6H PRN PO PAIN LEVEL 1-3 OR FEVER; Start at 22:30 Morphine Sulfate (morphine) 2 mg Q4H PRN IV PAIN LEVEL 7-10; Start 04/11/16 at 22:30 Famotidine (Pepcid Iv) 20 mg Q12 IV Last administered on 04/15/16 09:34; Admin Dose 20 MG; Start 04/12/16 at 09:00 Enoxaparin Sodium (Lovenox) 30 mg DAILY SC Last administered on 04/15/16 09:40 ; Admin Dose 30 MG; Start 04/12/16 at 09:00 Ascorbic Acid (Vitamin C) 500 mg DAILY GTB Last administered on 04/15/16 09:34 ; Admin Dose 500 MG; Start 04/12/16 at 09:00 Bisacodyl (Dulcolax) 10 mg DAILY PRN PO CONSTIPATION; Start 04/11/16 at 22:30 Chlorhexidine Gluconate (Peridex) 15 ml BID MM Last administered on 04/15/16 09:34; Admin Dose 15 ML; Start 04/12/16 at 09:00 Ferrous Sulfate (Feosol Liquid Cup) 300 mg BID GTB Last administered on 09:28; Admin Dose 300 MG; Start 04/12/16 at 09:00 Acetaminophen/ Hydrocodone Bitart ([place] (5/325)) 1 tab Q4 PRN GTB PAIN LEVEL 6 -10; Start 04/11/16 at 22:30 Lactulose (Enulose) 20 gm DAILY GTB Last administered on 04/14/16 08:59; Admin Dose 20 GM; Start 04/12/16 at 09:00 Lorazepam (Ativan) 1 mg Q6 GTB Last administered on 04/15/16 12:38; Admin Dose 1 MG; Start 04/12/16 at 00:00 Quetiapine Fumarate (Seroquel) 25 mg BID@ GTB Last administered on 09:40; Admin Dose 25 MG; Start 04/12/16 at 09:00 Quetiapine Fumarate (Seroquel) 200 mg HS GTB Last administered on 04/14/16 21: 59; Admin Dose 200 MG; Start 04/12/16 at 21:00 Senna (Senokot) 1 tab QHS GTB Last administered on 04/14/16 21:30; Admin Dose 1 TAB; Start 04/12/16 at 21:00 Sodium Biphosphate/ Sodium Phosphate (Fleet Enema Pediatric) 66.6 ml DAILY PRN [place] CONSTIPATION; Start 04/11/16 at 22:30 Thiamine HCl (Vitamin B1) 100 mg DAILY GTB Last administered on 04/15/16 09:34 ; Admin Dose 100 MG; Start 04/12/16 at 09:00 Calcium Carbonate (Tums) 500 mg DAILY GTB Last administered on 04/15/16 09:29 ; Admin Dose 500 MG; Start 04/12/16 at 09:00 Multivitamins/ Minerals (Theragran-M) 1 tab DAILY PO Last administered on 09:40; Admin Dose 1 TAB; Start 04/12/16 at 09:00 Metoprolol Tartrate (Lopressor) 12.5 mg BID PO Last administered on 04/14/16 22:05; Admin Dose 12.5 MG; Start 04/12/16 at 12:30 Hydralazine HCl 10 mg 10 mg Q6H PRN IV SBP>170 Last administered on 04/14/16 22:04; Admin Dose 10 MG; Start 04/12/16 at 12:30 Ertapenem/Sodium Chloride (Invanz/NS) 100 ml @ 200 mls/hr Q24H IVPB Last administered on 04/14/16 22:39; Admin Dose 200 MLS/HR; Start 04/13/16 at 17:00 Lorazepam 1 mg 1 mg Q6H PRN IV AGITATION/ANXIETY Last administered on 14:39; Admin Dose 1 MG; Start 04/13/16 at 19:00 Vancomycin HCl (Vancocin) 250 ml @ 125 mls/hr Q12H IVPB Last administered on 03:58; Admin Dose 125 MLS/HR; Start 04/14/16 at 16:00 Miscellaneous Information (*Rx Drug Level Order Reminder*) VANCO TROUGH @ 1, 500 ON... ONCE ONCE XX ; Start 04/16/16 at 15:00; Stop 04/16/16 at 15:01 MARK LONG NP Apr 15, 2016 13:43
[2016-04-15 15:21] LABS: HEMATOCRIT 30.4 % (42.0-52.0); HEMOGLOBIN 9.3 g/dl (14.0-18.0); MEAN CORPUSCULAR HEMOGLOBIN 26.2 pg (29.0-33.0); MEAN CORPUSCULAR HGB CONC 30.6 g/dl (32.0-37.0); MEAN CORPUSCULAR VOLUME 85.6 fl (82.0-101.0); MEAN PLATELET VOLUME 10.3 fl (7.4-10.4); PLATELET COUNT 143 10^3/UL (140-415); RED BLOOD COUNT 3.55 10^6/ul (4.70-6.10); RED CELL DISTRIBUTION WIDTH 16.7 % (11.5-14.5); WHITE BLOOD COUNT 2.3 10^3/ul (4.8-10.8)
[2016-04-15 15:26] LABS: ADD SCAN DIFF NO
[2016-04-15 16:03] LABS: POTASSIUM 3.6 mmol/L (3.5-5.1)
[2016-04-15 16:05] LABS: CREATININE 0.29 mg/dl (0.61-1.24)
[2016-04-15 16:06] LABS: CALCIUM 8.5 mg/dl (8.4-10.2)
[2016-04-15 16:22] LABS: ABNORMAL IP MESSAGE 1
--- NOTE | 2016-04-15 16:58 | PN ---
Date/Time of Note Date/Time of Note DATE: 04/15/16 TIME: 16:58 Assessment/Plan VTE Prophylaxis VTE Prophylaxis Intervention: other Lines/Catheters IV C[facility]ter Type (from [facility] Peripheral IV Urinary Cath still in place: No Assessment/Plan Assessment/Plan - Acute hypoxic respiratory failure. - per Dr. Anderson in pulmonology consultation. Continue ventilatory support and bronchodilators. - Possible healthcare-acquired left lower lung pneumonia versus aspiration. Continue antibiotics per ID. - per Dr. Rojas is following an infection disease consultation. - E. coli ESBL urinary tract infection. Continue meropenem. - Sepsis with Ecoli ESBL bacteremia 2 UTI. - Normocytic anemia. - Dysphagia, with G-tube. - History of chronic respiratory failure with tracheostomy. - Benign prostatic hypertrophy. - Schizoaffective disorder. Continue Seroquel and Ativan as needed for agitation. Continue Lovenox for deep venous thrombosis prophylaxis and Pepcid for peptic ulcer disease prophylaxis. Further recommendations based on clinical course. Plan of care discussed with Dr. Colunga. Subjective 24 Hr Interval Summary Free Text/Dictation aler, follows simple commands, no new issues reported by staff Constitutional: requiring IVF, requiring O2 Eyes: no complaints ENT: no complaints Exam/Review of Systems Vital Signs Vitals Vital Signs Date Time Temp Pulse Resp B/P Pulse Ox O2 Delivery O2 Flow Rate FiO2 04/15/16 14:00 98.4 77 20 142/62 94 04/15/16 13:43 8.0 35 04/15/16 13:43 Aerosol Intake and Output 04/14/16 04/14/16 04/15/16 15:00 23:00 07:00 Intake Total 1655 ml Balance 1655 ml Results Result Diagram: 04/15/16 1500 04/15/16 1500 Results 24 hrs Laboratory Tests Test 04/15/16 15:00 Anion Gap 11 Basophils # 0.0 Basophils % 0.4 Blood Urea Nitrogen 10 Calcium Level 8.5 Carbon Dioxide Level 30 Chloride Level 99 Creatinine 0.29 L Eosinophils # 0.0 Eosinophils % 0.9 Glucose Level 119 Hematocrit 30.4 L Hemoglobin 9.3 L Lymphocytes # Lymphocytes % Mean Corpuscular Hemoglobin 26.2 L Mean Corpuscular Hemoglobin Concent 30.6 L Mean Corpuscular Volume 85.6 Mean Platelet Volume 10.3 # Monocytes # Monocytes % Neutrophils # Neutrophils % Nucleated Red Blood Cells # 0.0 Nucleated Red Blood Cells % 0.0 Platelet Count 143 Potassium Level 3.6 Red Blood Count 3.55 L Red Cell Distribution Width 16.7 H Sodium Level 136 White Blood Count 2.3 #L Medications Medications Current Medications Sodium Chloride (NS) 1,000 ml @ 50 mls/hr Q20H IV Last administered on 10:18; Admin Dose 50 MLS/HR; Start 04/11/16 at 22:18 Ondansetron HCl (Zofran Inj) 4 mg Q6H PRN IV NAUSEA AND/OR VOMITING; Start at 22:30 Acetaminophen (Tylenol Tab) 650 mg Q6H PRN PO PAIN LEVEL 1-3 OR FEVER; Start at 22:30 Morphine Sulfate (morphine) 2 mg Q4H PRN IV PAIN LEVEL 7-10; Start 04/11/16 at 22:30 Famotidine (Pepcid Iv) 20 mg Q12 IV Last administered on 04/15/16 09:34; Admin Dose 20 MG; Start 04/12/16 at 09:00 Enoxaparin Sodium (Lovenox) 30 mg DAILY SC Last administered on 04/15/16 09:40 ; Admin Dose 30 MG; Start 04/12/16 at 09:00 Ascorbic Acid (Vitamin C) 500 mg DAILY GTB Last administered on 04/15/16 09:34 ; Admin Dose 500 MG; Start 04/12/16 at 09:00 Bisacodyl (Dulcolax) 10 mg DAILY PRN PO CONSTIPATION; Start 04/11/16 at 22:30 Chlorhexidine Gluconate (Peridex) 15 ml BID MM Last administered on 04/15/16 09:34; Admin Dose 15 ML; Start 04/12/16 at 09:00 Ferrous Sulfate (Feosol Liquid Cup) 300 mg BID GTB Last administered on 09:28; Admin Dose 300 MG; Start 04/12/16 at 09:00 Acetaminophen/ Hydrocodone Bitart ([place] (5/325)) 1 tab Q4 PRN GTB PAIN LEVEL 6 -10; Start 04/11/16 at 22:30 Lactulose (Enulose) 20 gm DAILY GTB Last administered on 04/14/16 08:59; Admin Dose 20 GM; Start 04/12/16 at 09:00 Lorazepam (Ativan) 1 mg Q6 GTB Last administered on 04/15/16 12:38; Admin Dose 1 MG; Start 04/12/16 at 00:00 Quetiapine Fumarate (Seroquel) 25 mg BID@ GTB Last administered on 09:40; Admin Dose 25 MG; Start 04/12/16 at 09:00 Quetiapine Fumarate (Seroquel) 200 mg HS GTB Last administered on 04/14/16 21: 59; Admin Dose 200 MG; Start 04/12/16 at 21:00 Senna (Senokot) 1 tab QHS GTB Last administered on 04/14/16 21:30; Admin Dose 1 TAB; Start 04/12/16 at 21:00 Sodium Biphosphate/ Sodium Phosphate (Fleet Enema Pediatric) 66.6 ml DAILY PRN [place] CONSTIPATION; Start 04/11/16 at 22:30 Thiamine HCl (Vitamin B1) 100 mg DAILY GTB Last administered on 04/15/16 09:34 ; Admin Dose 100 MG; Start 04/12/16 at 09:00 Calcium Carbonate (Tums) 500 mg DAILY GTB Last administered on 04/15/16 09:29 ; Admin Dose 500 MG; Start 04/12/16 at 09:00 Multivitamins/ Minerals (Theragran-M) 1 tab DAILY PO Last administered on 09:40; Admin Dose 1 TAB; Start 04/12/16 at 09:00 Metoprolol Tartrate (Lopressor) 12.5 mg BID PO Last administered on 04/14/16 22:05; Admin Dose 12.5 MG; Start 04/12/16 at 12:30 Hydralazine HCl 10 mg 10 mg Q6H PRN IV SBP>170 Last administered on 04/14/16 22:04; Admin Dose 10 MG; Start 04/12/16 at 12:30 Ertapenem/Sodium Chloride (Invanz/NS) 100 ml @ 200 mls/hr Q24H IVPB Last administered on 04/14/16 22:39; Admin Dose 200 MLS/HR; Start 04/13/16 at 17:00 Lorazepam 1 mg 1 mg Q6H PRN IV AGITATION/ANXIETY Last administered on 14:39; Admin Dose 1 MG; Start 04/13/16 at 19:00 Vancomycin HCl (Vancocin) 250 ml @ 125 mls/hr Q12H IVPB Last administered on 15:07; Admin Dose 125 MLS/HR; Start 04/14/16 at 16:00 Miscellaneous Information (*Rx Drug Level Order Reminder*) VANCO TROUGH @ 1, 500 ON... ONCE ONCE XX ; Start 04/16/16 at 15:00; Stop 04/16/16 at 15:01 BRENT KENDRICK Apr 15, 2016 16:58
[2016-04-15] MEDS: ERTAPENEM SODIUM 1 GM in SOD CHLORIDE 0.9% 100 ML IVPB SCH (17:08)
[2016-04-15 19:21] LABS: LYMPHOCYTES # 0.5 10^3/ul (0.8-2.9); MONOCYTE # 0.2 10^3/ul (0.3-0.9); NEUTROPHIL # 1.6 10^3/ul (1.6-7.5)
[2016-04-15 20:57] LABS: PLATELET ESTIMATE PLT APPEAR DECREASED
[2016-04-15] MEDS: QUETIAPINE 100 MG TAB GTB SCH (21:00)
[2016-04-15] MEDS: SENNA TAB GTB SCH (21:00)
[2016-04-15] MEDS: hydrALAzine 20 MG INJ IV PRN (22:47)
[2016-04-16] VITALS (14 sets, daily range): BP systolic 123–170; BP diastolic 68–92; PULSE 77–98; RESP 17–20
[2016-04-16] MEDS: ALBUTEROL/IPRATROPIUM (NEB) 3 ML AMP INH SCH ×4 (02:49→20:26)
[2016-04-16] MEDS: VANCOMYCIN 1 GM in NS 250 ML IVPB SCH (03:39)
[2016-04-16] MEDS: LORAZEPAM 1 MG TAB GTB SCH ×5 (06:00→23:58)
[2016-04-16] MEDS: CALCIUM CARBONATE 500 MG CHEW TAB GTB SCH (09:00)
[2016-04-16] MEDS: THIAMINE 100 MG TAB GTB SCH (09:00)
[2016-04-16] MEDS: ASCORBIC ACID 500 MG TAB GTB SCH (09:00)
[2016-04-16] MEDS: FERROUS SULFATE 60 MG/ML 5ML CUP GTB SCH ×2 (09:00→20:54)
[2016-04-16] MEDS: MULTIVITAMINS/MINERALS TAB PO SCH (09:00)
[2016-04-16] MEDS: QUETIAPINE 25 MG TAB GTB SCH ×2 (09:00→17:00)
[2016-04-16] MEDS: FAMOTIDINE 20 MG INJ IV SCH ×2 (09:00→21:01)
[2016-04-16] MEDS: CHLORHEXIDINE GLUCONATE 15 ML UD CUP MM SCH ×2 (09:00→21:00)
[2016-04-16] MEDS: LACTULOSE 30ML CUP GTB SCH (09:00)
[2016-04-16] MEDS: METOPROLOL 25 MG TAB PO SCH ×2 (09:00→20:57)
[2016-04-16] MEDS: ENOXAPARIN 30 MG/0.3 ML SYG SC SCH (09:20)
--- NOTE | 2016-04-16 12:09 | CONS ---
Date/Time of Note Date/Time of Note DATE: 04/16/16 TIME: 12:06 Assessment/Plan Assessment/Plan Additional Assessment/Plan Assessment and recommendations; 1. Patient admitted with severe left-sided pneumonia with marked clinical improvement. 2. 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 3. History of paraplegia. Continue current treatment. Obtain a follow-up chest x-ray. Consultation Date/Type/Reason Admit Date/Time Apr 11, 2016 at 22:13 Initial Consult Date 04/12/16 Type of Consultation: Pulmonary 24 HR Interval Summary Free Text/Dictation Patient condition is stable. Patient however still has to be restrained on account of poor mental status. 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 Next General examination; elderly male, currently in no distress. Awake. And alert Exam/Review of Systems Vital Signs Vitals Vital Signs Date Time Temp Pulse Resp B/P Pulse Ox O2 Delivery O2 Flow Rate FiO2 04/16/16 07:30 98.8 76 18 132/76 96 04/16/16 06:00 Trach Collar 04/16/16 02:49 8.0 35 Intake and Output 04/15/16 04/15/16 04/16/16 15:00 23:00 07:00 Intake Total 1380 ml 750 ml Balance 1380 ml 750 ml Exam H EENT examination; supple neck, no JVD. No lymphadenopathy. Midline trachea. Patient upper jaw is edentulous. Has a few remaining teeth in the lower jaw. Pupils are midsize and reactive to light. Tracheostomy in place with clean insertion site. Chest examination; markedly improved breath sounds involving the left lung. Right lung is clear to auscultation. S1-S2 audible, no murmurs. Regular rhythm. Abdomen examination; soft, nondistended. No organomegaly. Bowel sounds audible. G-tube in place. Extremity examination; no peripheral edema. [employer]MI[employer] AUDITOR examination; patient is stable paraplegia. Results Result Diagram: 04/15/16 1500 04/15/16 1500 Results 24 hrs Laboratory Tests Test 04/15/16 15:00 Anion Gap 11 Basophils # 0.0 Basophils % 0.0 Blood Urea Nitrogen 10 Calcium Level 8.5 Carbon Dioxide Level 30 Chloride Level 99 Creatinine 0.29 L Eosinophils # 0.0 Eosinophils % 0.0 Glucose Level 119 Hematocrit 30.4 L Hemoglobin 9.3 L Lymphocytes # 0.5 L Lymphocytes % 22.0 Mean Corpuscular Hemoglobin 26.2 L Mean Corpuscular Hemoglobin Concent 30.6 L Mean Corpuscular Volume 85.6 Mean Platelet Volume 10.3 # Monocytes # 0.2 L Monocytes % 10.0 Neutrophils # 1.6 Neutrophils % 68.0 Nucleated Red Blood Cells # 0.0 Nucleated Red Blood Cells % 0.0 Platelet Count 143 Platelet Estimate PLT APPEAR DECREASED Potassium Level 3.6 Red Blood Count 3.55 L Red Cell Distribution Width 16.7 H Sodium Level 136 White Blood Count 2.3 #L Medications Medications Current Medications Sodium Chloride (NS) 1,000 ml @ 50 mls/hr Q20H IV Last administered on 22:44; Admin Dose 50 MLS/HR; Start 04/11/16 at 22:18 Ondansetron HCl (Zofran Inj) 4 mg Q6H PRN IV NAUSEA AND/OR VOMITING; Start at 22:30 Acetaminophen (Tylenol Tab) 650 mg Q6H PRN PO PAIN LEVEL 1-3 OR FEVER; Start at 22:30 Morphine Sulfate (morphine) 2 mg Q4H PRN IV PAIN LEVEL 7-10; Start 04/11/16 at 22:30 Famotidine (Pepcid Iv) 20 mg Q12 IV Last administered on 04/15/16 22:02; Admin Dose 20 MG; Start 04/12/16 at 09:00 Enoxaparin Sodium (Lovenox) 30 mg DAILY SC Last administered on 04/16/16 09:20 ; Admin Dose 30 MG; Start 04/12/16 at 09:00 Ascorbic Acid (Vitamin C) 500 mg DAILY GTB Last administered on 04/15/16 09:34 ; Admin Dose 500 MG; Start 04/12/16 at 09:00 Bisacodyl (Dulcolax) 10 mg DAILY PRN PO CONSTIPATION; Start 04/11/16 at 22:30 Chlorhexidine Gluconate (Peridex) 15 ml BID MM Last administered on 04/15/16 22:02; Admin Dose 15 ML; Start 04/12/16 at 09:00 Ferrous Sulfate (Feosol Liquid Cup) 300 mg BID GTB Last administered on 09:28; Admin Dose 300 MG; Start 04/12/16 at 09:00 Acetaminophen/ Hydrocodone Bitart ([place] (5/325)) 1 tab Q4 PRN GTB PAIN LEVEL 6 -10; Start 04/11/16 at 22:30 Lactulose (Enulose) 20 gm DAILY GTB Last administered on 04/14/16 08:59; Admin Dose 20 GM; Start 04/12/16 at 09:00 Lorazepam (Ativan) 1 mg Q6 GTB Last administered on 04/15/16 17:08; Admin Dose 1 MG; Start 04/12/16 at 00:00 Quetiapine Fumarate (Seroquel) 25 mg BID@ GTB Last administered on 17:08; Admin Dose 25 MG; Start 04/12/16 at 09:00 Quetiapine Fumarate (Seroquel) 200 mg HS GTB Last administered on 04/14/16 21: 59; Admin Dose 200 MG; Start 04/12/16 at 21:00 Senna (Senokot) 1 tab QHS GTB Last administered on 04/14/16 21:30; Admin Dose 1 TAB; Start 04/12/16 at 21:00 Sodium Biphosphate/ Sodium Phosphate (Fleet Enema Pediatric) 66.6 ml DAILY PRN [place] CONSTIPATION; Start 04/11/16 at 22:30 Thiamine HCl (Vitamin B1) 100 mg DAILY GTB Last administered on 04/15/16 09:34 ; Admin Dose 100 MG; Start 04/12/16 at 09:00 Calcium Carbonate (Tums) 500 mg DAILY GTB Last administered on 04/15/16 09:29 ; Admin Dose 500 MG; Start 04/12/16 at 09:00 Multivitamins/ Minerals (Theragran-M) 1 tab DAILY PO Last administered on 09:40; Admin Dose 1 TAB; Start 04/12/16 at 09:00 Metoprolol Tartrate (Lopressor) 12.5 mg BID PO Last administered on 04/14/16 22:05; Admin Dose 12.5 MG; Start 04/12/16 at 12:30 Hydralazine HCl 10 mg 10 mg Q6H PRN IV SBP>170 Last administered on 04/15/16 22:47; Admin Dose 10 MG; Start 2/20/17 at 12:30 Ertapenem/Sodium Chloride (Invanz/NS) 100 ml @ 200 mls/hr Q24H IVPB Last administered on 04/15/16 17:08; Admin Dose 200 MLS/HR; Start 04/13/16 at 17:00 Lorazepam 1 mg 1 mg Q6H PRN IV AGITATION/ANXIETY Last administered on 14:39; Admin Dose 1 MG; Start 04/13/16 at 19:00 Vancomycin HCl (Vancocin) 250 ml @ 125 mls/hr Q12H IVPB Last administered on 03:39; Admin Dose 125 MLS/HR; Start 04/14/16 at 16:00 Miscellaneous Information (*Rx Drug Level Order Reminder*) VANCO TROUGH @ 1, 500 ON... ONCE ONCE XX ; Start 04/16/16 at 15:00; Stop 04/16/16 at 15:01 KATHERYN LAWTON Apr 16, 2016 12:09
--- NOTE | 2016-04-16 13:21 | CONS ---
Date/Time of Note Date/Time of Note DATE: 04/16/16 TIME: 13:20 Assessment/Plan Assessment/Plan Chief Complaint/Hosp Course SUBJECTIVE: No acute events overnight. The patient is awake, confused, lying comfortably in bed. No fevers. MICROBIOLOGY: Blood and urine cultures on admission grew E. coli ESBL. Repeat blood cultures negative. ANTIMICROBIALS: Vanco, Invanz. INDWELLINGS: Trach, PEG, Rae. PHYSICAL EXAMINATION: GENERAL: Chronically ill-appearing, elderly man who is lying comfortably in bed. HEENT: Head atraumatic, normocephalic. Sclerae anicteric. Buccal mucosa dry. NECK: Supple. Tracheostomy present. CHEST: Rise symmetrical. Breath sounds diminished to bases with scattered crackles. HEART: S1, S2. ABDOMEN: Soft. Bowel sounds present. EXTREMITIES: No cyanosis. ASSESSMENT: 1. Sepsis with Escherichia coli extended-spectrum beta-lactamase bacteremia secondary to #2. 2. Escherichia coli extended-spectrum beta-lactamase urinary tract infection. 3. Healthcare-associated pneumonia. 4. Chronic respiratory failure. 5. History of schizoaffective disorder. 6. Dementia. 7. Benign prostatic hypertrophy. PLAN: The patient remains stable. Continue abx, aspiration precautions, follow pulmonary recommendations. Anticipate treating with Invanz for 2 weeks for bacteremia DW staff Problems: Consultation Date/Type/Reason Admit Date/Time Apr 11, 2016 at 22:13 Initial Consult Date 04/12/16 Type of Consultation: ID Exam/Review of Systems Vital Signs Vitals Vital Signs Date Time Temp Pulse Resp B/P Pulse Ox O2 Delivery O2 Flow Rate FiO2 04/16/16 08:00 8.0 04/16/16 07:30 98.8 76 18 132/76 96 04/16/16 06:00 Trach Collar 04/16/16 02:49 35 Intake and Output 04/15/16 04/15/16 04/16/16 15:00 23:00 07:00 Intake Total 1380 ml 750 ml Balance 1380 ml 750 ml Results Result Diagram: 04/15/16 1500 04/15/16 1500 Results 24 hrs Laboratory Tests Test 04/15/16 15:00 Anion Gap 11 Basophils # 0.0 Basophils % 0.0 Blood Urea Nitrogen 10 Calcium Level 8.5 Carbon Dioxide Level 30 Chloride Level 99 Creatinine 0.29 L Eosinophils # 0.0 Eosinophils % 0.0 Glucose Level 119 Hematocrit 30.4 L Hemoglobin 9.3 L Lymphocytes # 0.5 L Lymphocytes % 22.0 Mean Corpuscular Hemoglobin 26.2 L Mean Corpuscular Hemoglobin Concent 30.6 L Mean Corpuscular Volume 85.6 Mean Platelet Volume 10.3 # Monocytes # 0.2 L Monocytes % 10.0 Neutrophils # 1.6 Neutrophils % 68.0 Nucleated Red Blood Cells # 0.0 Nucleated Red Blood Cells % 0.0 Platelet Count 143 Platelet Estimate PLT APPEAR DECREASED Potassium Level 3.6 Red Blood Count 3.55 L Red Cell Distribution Width 16.7 H Sodium Level 136 White Blood Count 2.3 #L Medications Medications Current Medications Sodium Chloride (NS) 1,000 ml @ 50 mls/hr Q20H IV Last administered on 22:44; Admin Dose 50 MLS/HR; Start 04/11/16 at 22:18 Ondansetron HCl (Zofran Inj) 4 mg Q6H PRN IV NAUSEA AND/OR VOMITING; Start at 22:30 Acetaminophen (Tylenol Tab) 650 mg Q6H PRN PO PAIN LEVEL 1-3 OR FEVER; Start at 22:30 Morphine Sulfate (morphine) 2 mg Q4H PRN IV PAIN LEVEL 7-10; Start 04/11/16 at 22:30 Famotidine (Pepcid Iv) 20 mg Q12 IV Last administered on 04/15/16 22:02; Admin Dose 20 MG; Start 04/12/16 at 09:00 Enoxaparin Sodium (Lovenox) 30 mg DAILY SC Last administered on 04/16/16 09:20 ; Admin Dose 30 MG; Start 04/12/16 at 09:00 Ascorbic Acid (Vitamin C) 500 mg DAILY GTB Last administered on 04/15/16 09:34 ; Admin Dose 500 MG; Start 04/12/16 at 09:00 Bisacodyl (Dulcolax) 10 mg DAILY PRN PO CONSTIPATION; Start 04/11/16 at 22:30 Chlorhexidine Gluconate (Peridex) 15 ml BID MM Last administered on 04/15/16 22:02; Admin Dose 15 ML; Start 04/12/16 at 09:00 Ferrous Sulfate (Feosol Liquid Cup) 300 mg BID GTB Last administered on 09:28; Admin Dose 300 MG; Start 04/12/16 at 09:00 Acetaminophen/ Hydrocodone Bitart ([place] (5/325)) 1 tab Q4 PRN GTB PAIN LEVEL 6 -10; Start 04/11/16 at 22:30 Lactulose (Enulose) 20 gm DAILY GTB Last administered on 04/14/16 08:59; Admin Dose 20 GM; Start 04/12/16 at 09:00 Lorazepam (Ativan) 1 mg Q6 GTB Last administered on 04/15/16 17:08; Admin Dose 1 MG; Start 04/12/16 at 00:00 Quetiapine Fumarate (Seroquel) 25 mg BID@ GTB Last administered on 17:08; Admin Dose 25 MG; Start 04/12/16 at 09:00 Quetiapine Fumarate (Seroquel) 200 mg HS GTB Last administered on 04/14/16 21: 59; Admin Dose 200 MG; Start 04/12/16 at 21:00 Senna (Senokot) 1 tab QHS GTB Last administered on 04/14/16 21:30; Admin Dose 1 TAB; Start 04/12/16 at 21:00 Sodium Biphosphate/ Sodium Phosphate (Fleet Enema Pediatric) 66.6 ml DAILY PRN [place] CONSTIPATION; Start 04/11/16 at 22:30 Thiamine HCl (Vitamin B1) 100 mg DAILY GTB Last administered on 04/15/16 09:34 ; Admin Dose 100 MG; Start 04/12/16 at 09:00 Calcium Carbonate (Tums) 500 mg DAILY GTB Last administered on 04/15/16 09:29 ; Admin Dose 500 MG; Start 04/12/16 at 09:00 Multivitamins/ Minerals (Theragran-M) 1 tab DAILY PO Last administered on 09:40; Admin Dose 1 TAB; Start 04/12/16 at 09:00 Metoprolol Tartrate (Lopressor) 12.5 mg BID PO Last administered on 04/14/16 22:05; Admin Dose 12.5 MG; Start 04/12/16 at 12:30 Hydralazine HCl 10 mg 10 mg Q6H PRN IV SBP>170 Last administered on 2/23/17at 22:47; Admin Dose 10 MG; Start 04/12/16 at 12:30 Ertapenem/Sodium Chloride (Invanz/NS) 100 ml @ 200 mls/hr Q24H IVPB Last administered on 04/15/16 17:08; Admin Dose 200 MLS/HR; Start 04/13/16 at 17:00 Lorazepam 1 mg 1 mg Q6H PRN IV AGITATION/ANXIETY Last administered on 14:39; Admin Dose 1 MG; Start 04/13/16 at 19:00 Vancomycin HCl (Vancocin) 250 ml @ 125 mls/hr Q12H IVPB Last administered on 03:39; Admin Dose 125 MLS/HR; Start 04/14/16 at 16:00 Miscellaneous Information (*Rx Drug Level Order Reminder*) VANCO TROUGH @ 1, 500 ON... ONCE ONCE XX ; Start 04/16/16 at 15:00; Stop 04/16/16 at 15:01 MARK LONG NP Apr 16, 2016 13:21
[2016-04-16] MEDS: hydrALAzine 20 MG INJ IV PRN (14:15)
[2016-04-16 15:38] LABS: ADD SCAN DIFF NO
[2016-04-16 16:02] LABS: CREATININE 0.4 mg/dl (0.61-1.24)
[2016-04-16 16:03] LABS: CALCIUM 8.8 mg/dl (8.4-10.2)
[2016-04-16 16:04] LABS: HEMOGLOBIN 10.3 g/dl (14.0-18.0); MEAN CORPUSCULAR HEMOGLOBIN 26.3 pg (29.0-33.0); MEAN CORPUSCULAR HGB CONC 31.2 g/dl (32.0-37.0); MEAN CORPUSCULAR VOLUME 84.2 fl (82.0-101.0); PLATELET COUNT 177 10^3/UL (140-415); RED BLOOD COUNT 3.92 10^6/ul (4.70-6.10); RED CELL DISTRIBUTION WIDTH 17.1 % (11.5-14.5); WHITE BLOOD COUNT 2.2 10^3/ul (4.8-10.8)
[2016-04-16 17:31] LABS: ANISOCYTOSIS 1+; HYPOCHROMASIA 1+; LYMPHOCYTES # 0.5 10^3/ul (0.8-2.9); MONOCYTE # 0.2 10^3/ul (0.3-0.9); NEUTROPHIL # 1.5 10^3/ul (1.6-7.5); PLATELET ESTIMATE PLT APPEAR ADEQUATE
[2016-04-16] MEDS: ERTAPENEM SODIUM 1 GM in SOD CHLORIDE 0.9% 100 ML IVPB SCH (17:47)
--- NOTE | 2016-04-16 18:25 | PN ---
Date/Time of Note Date/Time of Note DATE: 04/16/16 TIME: 18:24 Assessment/Plan VTE Prophylaxis VTE Prophylaxis Intervention: SCD's Lines/Catheters IV [facility]): Peripheral IV Central line still needed: Yes Urinary Cath still in place: No Assessment/Plan Chief Complaint/Hosp Course ASSESSMENT AND PLAN: - Acute hypoxic respiratory failure. Dr. Anderson is following in pulmonology consultation. Continue ventilatory support and bronchodilators. - Possible healthcare-acquired left lower lung pneumonia versus aspiration. Continue antibiotics per ID. Dr. Rojas is following an infection disease consultation. - E. coli ESBL urinary tract infection. Continue meropenem. - Sepsis with Ecoli ESBL bacteremia 2 UTI. - Normocytic anemia. - Dysphagia, with G-tube. - History of chronic respiratory failure with tracheostomy. - Benign prostatic hypertrophy. - Schizoaffective disorder. Continue Seroquel and Ativan as needed for agitation. Continue Lovenox for deep venous thrombosis prophylaxis and Pepcid for peptic ulcer disease prophylaxis. Further recommendations based on clinical course. Plan of care discussed with Dr. Colunga. Problems: Subjective 24 Hr Interval Summary Free Text/Dictation Patient was periods of agitation and episode of hypertension, currently stable. Remains afebrile, no nausea vomiting per nursing staff. Exam/Review of Systems Vital Signs Vitals Vital Signs Date Time Temp Pulse Resp B/P Pulse Ox O2 Delivery O2 Flow Rate FiO2 04/16/16 14:34 98.0 80 18 123/75 99 Trach Collar 04/16/16 14:28 8.0 35 Intake and Output 04/15/16 04/15/16 04/16/16 15:00 23:00 07:00 Intake Total 1380 ml 750 ml Balance 1380 ml 750 ml Exam GENERAL: A well-developed, cachectic gentleman, currently is awake, alert, follows immediate commands, otherwise confused. HEENT: Head is atraumatic, normocephalic. LYDIA. NECK: Supple, with tracheostomy at the base of the neck, with a moderate amount of secretions, no bleeding. LUNGS: Diminished at the bases. Patient has scattered severe rhonchi bilaterally. CARDIOVASCULAR: Normal S1, S2. No murmurs, gallops, clicks, rubs noted. ABDOMEN: Flat, soft, nondistended, nontender. Bowel sounds present. Patient has a G-tube with intact stoma. EXTREMITIES: Contractured. There is no edema, clubbing, cyanosis. Pulses equal bilaterally, 2+. SKIN: There is no rash, petechiae noted. NEUROLOGIC: Patient is awake, alert. Results Result Diagram: 04/16/16 1530 04/16/16 1530 Results 24 hrs Laboratory Tests Test 04/16/16 15:30 Anion Gap 14 Anisocytosis 1+ Blood Urea Nitrogen 13 Calcium Level 8.8 Carbon Dioxide Level 29 Chloride Level 101 Creatinine 0.40 L Eosinophils # 0.0 Eosinophils % 2.0 Giant Platelets OCCASIONAL Glucose Level 63 #L Hematocrit 33.0 L Hemoglobin 10.3 L Hypochromasia 1+ Large Platelets FEW Lymphocytes # 0.5 L Lymphocytes % 22.0 Mean Corpuscular Hemoglobin 26.3 L Mean Corpuscular Hemoglobin Concent 31.2 L Mean Corpuscular Volume 84.2 Mean Platelet Volume 10.0 Monocytes # 0.2 L Monocytes % 7.0 Neutrophils # 1.5 L Neutrophils % 69.0 Platelet Count 177 # Platelet Estimate PLT APPEAR ADEQUATE Potassium Level 4.0 Red Blood Count 3.92 L Red Cell Distribution Width 17.1 H Sodium Level 140 Vancomycin Level Trough 21.0 *H White Blood Count 2.2 L Medications Medications Current Medications Sodium Chloride (NS) 1,000 ml @ 50 mls/hr Q20H IV Last administered on 22:44; Admin Dose 50 MLS/HR; Start 04/11/16 at 22:18 Ondansetron HCl (Zofran Inj) 4 mg Q6H PRN IV NAUSEA AND/OR VOMITING; Start at 22:30 Acetaminophen (Tylenol Tab) 650 mg Q6H PRN PO PAIN LEVEL 1-3 OR FEVER; Start at 22:30 Morphine Sulfate (morphine) 2 mg Q4H PRN IV PAIN LEVEL 7-10; Start 04/11/16 at 22:30 Famotidine (Pepcid Iv) 20 mg Q12 IV Last administered on 04/15/16 22:02; Admin Dose 20 MG; Start 04/12/16 at 09:00 Enoxaparin Sodium (Lovenox) 30 mg DAILY SC Last administered on 04/16/16 09:20 ; Admin Dose 30 MG; Start 04/12/16 at 09:00 Ascorbic Acid (Vitamin C) 500 mg DAILY GTB Last administered on 04/15/16 09:34 ; Admin Dose 500 MG; Start 04/12/16 at 09:00 Bisacodyl (Dulcolax) 10 mg DAILY PRN PO CONSTIPATION; Start 04/11/16 at 22:30 Chlorhexidine Gluconate (Peridex) 15 ml BID MM Last administered on 04/15/16 22:02; Admin Dose 15 ML; Start 04/12/16 at 09:00 Ferrous Sulfate (Feosol Liquid Cup) 300 mg BID GTB Last administered on 09:28; Admin Dose 300 MG; Start 04/12/16 at 09:00 Acetaminophen/ Hydrocodone Bitart ([place] (5/325)) 1 tab Q4 PRN GTB PAIN LEVEL 6 -10; Start 04/11/16 at 22:30 Lactulose (Enulose) 20 gm DAILY GTB Last administered on 04/14/16 08:59; Admin Dose 20 GM; Start 04/12/16 at 09:00 Lorazepam (Ativan) 1 mg Q6 GTB Last administered on 04/15/16 17:08; Admin Dose 1 MG; Start 04/12/16 at 00:00 Quetiapine Fumarate (Seroquel) 25 mg BID@ GTB Last administered on 17:08; Admin Dose 25 MG; Start 04/12/16 at 09:00 Quetiapine Fumarate (Seroquel) 200 mg HS GTB Last administered on 04/14/16 21: 59; Admin Dose 200 MG; Start 04/12/16 at 21:00 Senna (Senokot) 1 tab QHS GTB Last administered on 04/14/16 21:30; Admin Dose 1 TAB; Start 04/12/16 at 21:00 Sodium Biphosphate/ Sodium Phosphate (Fleet Enema Pediatric) 66.6 ml DAILY PRN [place] CONSTIPATION; Start 04/11/16 at 22:30 Thiamine HCl (Vitamin B1) 100 mg DAILY GTB Last administered on 04/15/16 09:34 ; Admin Dose 100 MG; Start 04/12/16 at 09:00 Calcium Carbonate (Tums) 500 mg DAILY GTB Last administered on 04/15/16 09:29 ; Admin Dose 500 MG; Start 04/12/16 at 09:00 Multivitamins/ Minerals (Theragran-M) 1 tab DAILY PO Last administered on 09:40; Admin Dose 1 TAB; Start 04/12/16 at 09:00 Metoprolol Tartrate (Lopressor) 12.5 mg BID PO Last administered on 04/14/16 22:05; Admin Dose 12.5 MG; Start 04/12/16 at 12:30 Hydralazine HCl 10 mg 10 mg Q6H PRN IV SBP>170 Last administered on 04/16/16 14:15; Admin Dose 10 MG; Start 04/12/16 at 12:30 Ertapenem/Sodium Chloride (Invanz/NS) 100 ml @ 200 mls/hr Q24H IVPB Last administered on 04/16/16 17:47; Admin Dose 200 MLS/HR; Start 04/13/16 at 17:00 Lorazepam 1 mg 1 mg Q6H PRN IV AGITATION/ANXIETY Last administered on 14:39; Admin Dose 1 MG; Start 04/13/16 at 19:00 Vancomycin HCl/ Sodium Chloride (Vancocin/NS) 150 ml @ 75 mls/hr Q12 IVPB ; Start 04/16/16 at 21:00 SHELBY BUNCH Apr 16, 2016 18:25
[2016-04-16] MEDS: QUETIAPINE 100 MG TAB GTB SCH (20:54)
[2016-04-16] MEDS: SENNA TAB GTB SCH (20:54)
[2016-04-16] MEDS: VANCOMYCIN 750 MG in SOD CHLORIDE 0.9% 150 ML IVPB SCH (21:01)
[2016-04-16] MEDS: SOD CHLORIDE 0.9% 1,000 ML IV SCH (21:35)
[2016-04-17] VITALS (16 sets, daily range): BP systolic 130–189; BP diastolic 70–100; PULSE 76–99; RESP 17–21
[2016-04-17] MEDS: ALBUTEROL/IPRATROPIUM (NEB) 3 ML AMP INH SCH ×4 (02:54→21:38)
[2016-04-17] MEDS: LORAZEPAM 1 MG TAB GTB SCH ×4 (06:00→23:53)
[2016-04-17 06:14] LABS: ADD SCAN DIFF NO
[2016-04-17 06:18] LABS: BASOPHILS % 0.3 % (0.0-2.0); HEMATOCRIT 29.6 % (42.0-52.0); HEMOGLOBIN 9.3 g/dl (14.0-18.0); LYMPHOCYTES # 0.8 10^3/ul (0.8-2.9); LYMPHOCYTES % 24.4 % (15.0-51.0); MEAN CORPUSCULAR HEMOGLOBIN 26.6 pg (29.0-33.0); MEAN CORPUSCULAR HGB CONC 31.4 g/dl (32.0-37.0); MEAN CORPUSCULAR VOLUME 84.6 fl (82.0-101.0); MEAN PLATELET VOLUME 10.1 fl (7.4-10.4); MONOCYTE # 0.3 10^3/ul (0.3-0.9); NEUTROPHIL # 2.3 10^3/ul (1.6-7.5); PLATELET COUNT 201 10^3/UL (140-415); RED CELL DISTRIBUTION WIDTH 17.3 % (11.5-14.5); WHITE BLOOD COUNT 3.4 10^3/ul (4.8-10.8)
[2016-04-17] MEDS: METOPROLOL 25 MG TAB PO SCH ×2 (09:00→21:46)
[2016-04-17] MEDS: CALCIUM CARBONATE 500 MG CHEW TAB GTB SCH (09:00)
[2016-04-17] MEDS: QUETIAPINE 25 MG TAB GTB SCH ×2 (09:00→17:45)
[2016-04-17] MEDS: MULTIVITAMINS/MINERALS TAB PO SCH (09:00)
[2016-04-17] MEDS: LACTULOSE 30ML CUP GTB SCH (09:00)
[2016-04-17] MEDS: FERROUS SULFATE 60 MG/ML 5ML CUP GTB SCH ×2 (09:00→21:45)
[2016-04-17] MEDS: ASCORBIC ACID 500 MG TAB GTB SCH (09:00)
[2016-04-17] MEDS: THIAMINE 100 MG TAB GTB SCH (09:00)
[2016-04-17] MEDS: CHLORHEXIDINE GLUCONATE 15 ML UD CUP MM SCH ×2 (09:05→21:45)
[2016-04-17] MEDS: FAMOTIDINE 20 MG INJ IV SCH ×2 (09:05→22:12)
[2016-04-17] MEDS: ENOXAPARIN 30 MG/0.3 ML SYG SC SCH (09:05)
[2016-04-17] MEDS: VANCOMYCIN 750 MG in SOD CHLORIDE 0.9% 150 ML IVPB SCH (09:09)
[2016-04-17] MEDS: hydrALAzine 20 MG INJ IV PRN (09:10)
--- NOTE | 2016-04-17 09:35 | RADRPT ---
PROCEDURE: XR Chest. CLINICAL INDICATION: Dyspnea TECHNIQUE: Single frontal chest x-ray. COMPARISON: 04/14/2016 FINDINGS: There is borderline cardiomegaly with central pulmonary vascular congestion and interstitial edema. Hazy opacities in the lung bases likely reflecting combination of pleural effusions atelectasis. T racheostomy is in place. There is no pneumothorax. Old fracture deformity of the left proximal hum erus and glenoid are identified. IMPRESSION: 1. Borderline cardiomegaly with central pulmonary congestion and mild interstitial edema. 2. Hazy opacities in the lung bases likely reflecting combination of pleural effusions and associat ed atelectasis. 3. Slight interval improvement of aeration in the left lower lung. 4. Tracheostomy is in place. RPTAT: EE .Kaylie Valles MD, Date Time Electronically viewed and signed by .Kaylie Valles MD, on 04/17/2016 09:35 .O/
[2016-04-17 09:46] LABS: CREATININE 0.56 mg/dl (0.61-1.24)
[2016-04-17 09:47] LABS: CALCIUM 8.8 mg/dl (8.4-10.2)
[2016-04-17 10:05] LABS: ANISOCYTOSIS 1+; HYPOCHROMASIA 1+
[2016-04-17 10:06] LABS: OVALOCYTES OCCASIONAL; POIKILOCYTOSIS 1+; TARGET CELLS OCCASIONAL
[2016-04-17] MEDS: DEXTROSE 5%-0.9% NACL 1,000 ML IV SCH (11:48)
--- NOTE | 2016-04-17 11:48 | CONS ---
Date/Time of Note Date/Time of Note DATE: 04/17/16 TIME: 11:45 Assessment/Plan Assessment/Plan Additional Assessment/Plan Chest x-ray was reviewed from today which is showing bibasilar atelectatic changes. There is continued improvement in aeration of the left lung. Assessment and recommendations; 1. Patient admitted with severe left-sided pneumonia with significant radiological improvement. 2. History of paraplegia. 3. History of respiratory failure patient maintain on T-piece. 4. Severe alcoholic encephalopathy. Continue current treatment. Consultation Date/Type/Reason Admit Date/Time Apr 11, 2016 at 22:13 Initial Consult Date 04/12/16 Type of Consultation: Pulmonary 24 HR Interval Summary Free Text/Dictation Patient condition is stable. Continues to exhibit poor mental status with agitation requiring restraints. Denies any shortness of breath, cough,. General examination; elderly male, currently in no distress on T piece via tracheostomy. Exam/Review of Systems Vital Signs Vitals Vital Signs Date Time Temp Pulse Resp B/P Pulse Ox O2 Delivery O2 Flow Rate FiO2 04/17/16 10:00 98.6 82 20 186/87 96 04/17/16 08:29 Aerosol 8.0 35 T Tube Intake and Output 04/16/16 04/16/16 04/17/16 15:00 23:00 07:00 Intake Total 0 ml 650 ml Output Total 350 ml 600 ml Balance -350 ml 50 ml Exam HEENT examination; supple neck, no JVD. No lymphadenopathy. Midline trachea. Pharynx is clear. Patient has only a few remaining teeth. Tracheostomy in place with clean insertion site. Attached to a T piece. Chest examination; diminished breath on lung bases bilaterally. Upper lobes are clear. S1-S2 audible, no murmurs. Regular rhythm. Abdomen examination; soft, nontender, nondistended. No organomegaly. G-tube in place. Bowel sounds audible. Extremity examination; no peripheral edema. [employer] examination; patient is awake and alert remains confused. Patient has stable paraplegia. Results Result Diagram: 04/17/16 0550 04/17/16 0550 Results 24 hrs Laboratory Tests Test 04/16/16 15:30 04/17/16 05:50 Anion Gap 14 18 H Anisocytosis 1+ 1+ Blood Urea Nitrogen 13 19 Calcium Level 8.8 8.8 Carbon Dioxide Level 29 25 Chloride Level 101 103 Creatinine 0.40 L 0.56 L Eosinophils # 0.0 0.0 Eosinophils % 2.0 0.0 Giant Platelets OCCASIONAL Glucose Level 63 #L 62 L Hematocrit 33.0 L 29.6 L Hemoglobin 10.3 L 9.3 L Hypochromasia 1+ 1+ Large Platelets FEW Lymphocytes # 0.5 L 0.8 Lymphocytes % 22.0 24.4 Mean Corpuscular Hemoglobin 26.3 L 26.6 L Mean Corpuscular Hemoglobin Concent 31.2 L 31.4 L Mean Corpuscular Volume 84.2 84.6 Mean Platelet Volume 10.0 10.1 Monocytes # 0.2 L 0.3 Monocytes % 7.0 9.0 Neutrophils # 1.5 L 2.3 Neutrophils % 69.0 66.0 Platelet Count 177 # 201 Platelet Estimate PLT APPEAR ADEQUATE Potassium Level 4.0 4.0 Red Blood Count 3.92 L 3.50 L Red Cell Distribution Width 17.1 H 17.3 H Sodium Level 140 142 Vancomycin Level Trough 21.0 *H White Blood Count 2.2 L 3.4 #L Basophils # 0.0 Basophils % 0.3 Nucleated Red Blood Cells # 0.0 Nucleated Red Blood Cells % 0.0 Ovalocytes OCCASIONAL Poikilocytosis 1+ Target Cells OCCASIONAL Medications Medications Current Medications Ondansetron HCl (Zofran Inj) 4 mg Q6H PRN IV NAUSEA AND/OR VOMITING; Start at 22:30 Acetaminophen (Tylenol Tab) 650 mg Q6H PRN PO PAIN LEVEL 1-3 OR FEVER; Start at 22:30 Morphine Sulfate (morphine) 2 mg Q4H PRN IV PAIN LEVEL 7-10; Start 04/11/16 at 22:30 Famotidine (Pepcid Iv) 20 mg Q12 IV Last administered on 04/17/16 09:05; Admin Dose 20 MG; Start 04/12/16 at 09:00 Enoxaparin Sodium (Lovenox) 30 mg DAILY SC Last administered on 04/17/16 09:05 ; Admin Dose 30 MG; Start 04/12/16 at 09:00 Ascorbic Acid (Vitamin C) 500 mg DAILY GTB Last administered on 04/15/16 09:34 ; Admin Dose 500 MG; Start 04/12/16 at 09:00 Bisacodyl (Dulcolax) 10 mg DAILY PRN PO CONSTIPATION; Start 04/11/16 at 22:30 Chlorhexidine Gluconate (Peridex) 15 ml BID MM Last administered on 04/17/16 09:05; Admin Dose 15 ML; Start 04/12/16 at 09:00 Ferrous Sulfate (Feosol Liquid Cup) 300 mg BID GTB Last administered on 09:28; Admin Dose 300 MG; Start 04/12/16 at 09:00 Acetaminophen/ Hydrocodone Bitart ([place] (5/325)) 1 tab Q4 PRN GTB PAIN LEVEL 6 -10; Start 04/11/16 at 22:30 Lactulose (Enulose) 20 gm DAILY GTB Last administered on 04/14/16 08:59; Admin Dose 20 GM; Start 04/12/16 at 09:00 Lorazepam (Ativan) 1 mg Q6 GTB Last administered on 04/15/16 17:08; Admin Dose 1 MG; Start 04/12/16 at 00:00 Quetiapine Fumarate (Seroquel) 25 mg BID@ GTB Last administered on 17:08; Admin Dose 25 MG; Start 04/12/16 at 09:00 Quetiapine Fumarate (Seroquel) 200 mg HS GTB Last administered on 04/14/16 21: 59; Admin Dose 200 MG; Start 04/12/16 at 21:00 Senna (Senokot) 1 tab QHS GTB Last administered on 04/14/16 21:30; Admin Dose 1 TAB; Start 04/12/16 at 21:00 Sodium Biphosphate/ Sodium Phosphate (Fleet Enema Pediatric) 66.6 ml DAILY PRN [place] CONSTIPATION; Start 04/11/16 at 22:30 Thiamine HCl (Vitamin B1) 100 mg DAILY GTB Last administered on 04/15/16 09:34 ; Admin Dose 100 MG; Start 04/12/16 at 09:00 Calcium Carbonate (Tums) 500 mg DAILY GTB Last administered on 04/15/16 09:29 ; Admin Dose 500 MG; Start 04/12/16 at 09:00 Multivitamins/ Minerals (Theragran-M) 1 tab DAILY PO Last administered on 09:40; Admin Dose 1 TAB; Start 04/12/16 at 09:00 Metoprolol Tartrate (Lopressor) 12.5 mg BID PO Last administered on 04/14/16 22:05; Admin Dose 12.5 MG; Start 04/12/16 at 12:30 Hydralazine HCl 10 mg 10 mg Q6H PRN IV SBP>170 Last administered on 04/17/16 09:10; Admin Dose 10 MG; Start 04/12/16 at 12:30 Ertapenem/Sodium Chloride (Invanz/NS) 100 ml @ 200 mls/hr Q24H IVPB Last administered on 04/16/16 17:47; Admin Dose 200 MLS/HR; Start 04/13/16 at 17:00 Lorazepam 1 mg 1 mg Q6H PRN IV AGITATION/ANXIETY Last administered on 14:39; Admin Dose 1 MG; Start 04/13/16 at 19:00 Dextrose/Sodium Chloride 1,000 ml @ 75 mls/hr [id number] IV ; Start 04/17/16 at 11 :30 Vancomycin HCl (Vancocin) 250 ml @ 125 mls/hr Q24H IVPB ; Start 04/17/16 at 21: 00 KATHERYN LAWTON Apr 17, 2016 11:48
[2016-04-17] MEDS ORDERED: hydrALAzine 20 MG INJ IV ONE (12:30)
[2016-04-17] MEDS ORDERED: BARIUM SULFATE 135 ML (E-Z HD) PO ONE (12:43)
[2016-04-17] MEDS ORDERED: BARIUM SULFATE 454 GM TUBE (E-Z PASTE) PO ONE (12:44)
--- NOTE | 2016-04-17 14:27 | CONS ---
Date/Time of Note Date/Time of Note DATE: 04/17/16 TIME: 14:27 Assessment/Plan Assessment/Plan Chief Complaint/Hosp Course ID PROGRESS NOTE CURRENT ABX=> Vanco IV + Invanz = DAY #6 24H INTERVAL SUMMARY * Afebrile, VSS, NAD, looks comfortable * Swallow eval noted: There was evidence of penetration with the thinner liquids. No gross aspiration was identified. PHYSICAL EXAMINATION: GENERAL: VSS, NAD HEENT: Unremarkable -- NECK: Supple, trach(+) CHEST: Rise symmetrical, without dyspnea on observation HEART: Pulse RRR ABDOMEN: Soft, benign EXTREMITIES: Warm ID ASSESSMENT 65 yo M admit with PMHx dementia + schizoaffective Dx, trach, peg admit with: 1. Sepsis with Escherichia coli extended-spectrum beta-lactamase bacteremia secondary to #2. 2. Escherichia coli extended-spectrum beta-lactamase urinary tract infection. 3. Healthcare-associated pneumonia = Aspiration Pneumonitis * Swallow Eval: (+)Silent aspiration w/thin liquids (+)backflow into sinuses/ NO Gross Aspiration. 4. Chronic respiratory failure. 5. Benign prostatic hypertrophy. (-)MRSA NARES INVASIVES: PIV ABX ALLERGY: None to ABX known CURRENT ABX: TOTAL ABX DAY #6 => Vanco IV + Invanz ID RECOMMENDATIONS 1.DC Vanco IV 2. Continue Invanz total course # 6 / 14 days to cover concern bacteremia 3. Aspiration precautions = Thickened liquids & follow Speech Tx recommendations 4. Back to SNF on ABX when cleared by primary provider . Problems: Consultation Date/Type/Reason Admit Date/Time Apr 11, 2016 at 22:13 Initial Consult Date 04/12/16 Type of Consultation: ID Exam/Review of Systems Vital Signs Vitals Vital Signs Date Time Temp Pulse Resp B/P Pulse Ox O2 Delivery O2 Flow Rate FiO2 04/17/16 13:00 158/75 04/17/16 12:00 95 18 97 Trach Collar 04/17/16 10:00 98.6 04/17/16 08:29 8.0 35 Intake and Output 04/16/16 04/16/16 04/17/16 15:00 23:00 07:00 Intake Total 0 ml 650 ml Output Total 350 ml 600 ml Balance -350 ml 50 ml Results Result Diagram: 04/17/16 0550 04/17/16 0550 Results 24 hrs Laboratory Tests Test 04/16/16 15:30 04/17/16 05:50 Anion Gap 14 18 H Anisocytosis 1+ 1+ Blood Urea Nitrogen 13 19 Calcium Level 8.8 8.8 Carbon Dioxide Level 29 25 Chloride Level 101 103 Creatinine 0.40 L 0.56 L Eosinophils # 0.0 0.0 Eosinophils % 2.0 0.0 Giant Platelets OCCASIONAL Glucose Level 63 #L 62 L Hematocrit 33.0 L 29.6 L Hemoglobin 10.3 L 9.3 L Hypochromasia 1+ 1+ Large Platelets FEW Lymphocytes # 0.5 L 0.8 Lymphocytes % 22.0 24.4 Mean Corpuscular Hemoglobin 26.3 L 26.6 L Mean Corpuscular Hemoglobin Concent 31.2 L 31.4 L Mean Corpuscular Volume 84.2 84.6 Mean Platelet Volume 10.0 10.1 Monocytes # 0.2 L 0.3 Monocytes % 7.0 9.0 Neutrophils # 1.5 L 2.3 Neutrophils % 69.0 66.0 Platelet Count 177 # 201 Platelet Estimate PLT APPEAR ADEQUATE Potassium Level 4.0 4.0 Red Blood Count 3.92 L 3.50 L Red Cell Distribution Width 17.1 H 17.3 H Sodium Level 140 142 Vancomycin Level Trough 21.0 *H White Blood Count 2.2 L 3.4 #L Basophils # 0.0 Basophils % 0.3 Nucleated Red Blood Cells # 0.0 Nucleated Red Blood Cells % 0.0 Ovalocytes OCCASIONAL Poikilocytosis 1+ Target Cells OCCASIONAL Medications Medications Current Medications Ondansetron HCl (Zofran Inj) 4 mg Q6H PRN IV NAUSEA AND/OR VOMITING; Start at 22:30 Acetaminophen (Tylenol Tab) 650 mg Q6H PRN PO PAIN LEVEL 1-3 OR FEVER; Start at 22:30 Morphine Sulfate (morphine) 2 mg Q4H PRN IV PAIN LEVEL 7-10; Start 04/11/16 at 22:30 Famotidine (Pepcid Iv) 20 mg Q12 IV Last administered on 04/17/16 09:05; Admin Dose 20 MG; Start 04/12/16 at 09:00 Enoxaparin Sodium (Lovenox) 30 mg DAILY SC Last administered on 04/17/16 09:05 ; Admin Dose 30 MG; Start 04/12/16 at 09:00 Ascorbic Acid (Vitamin C) 500 mg DAILY GTB Last administered on 04/15/16 09:34 ; Admin Dose 500 MG; Start 04/12/16 at 09:00 Bisacodyl (Dulcolax) 10 mg DAILY PRN PO CONSTIPATION; Start 04/11/16 at 22:30 Chlorhexidine Gluconate (Peridex) 15 ml BID MM Last administered on 04/17/16 09:05; Admin Dose 15 ML; Start 04/12/16 at 09:00 Ferrous Sulfate (Feosol Liquid Cup) 300 mg BID GTB Last administered on 09:28; Admin Dose 300 MG; Start 04/12/16 at 09:00 Acetaminophen/ Hydrocodone Bitart ([place] (5/325)) 1 tab Q4 PRN GTB PAIN LEVEL 6 -10; Start 04/11/16 at 22:30 Lactulose (Enulose) 20 gm DAILY GTB Last administered on 04/14/16 08:59; Admin Dose 20 GM; Start 04/12/16 at 09:00 Lorazepam (Ativan) 1 mg Q6 GTB Last administered on 04/15/16 17:08; Admin Dose 1 MG; Start 04/12/16 at 00:00 Quetiapine Fumarate (Seroquel) 25 mg BID@ GTB Last administered on 17:08; Admin Dose 25 MG; Start 04/12/16 at 09:00 Quetiapine Fumarate (Seroquel) 200 mg HS GTB Last administered on 04/14/16 21: 59; Admin Dose 200 MG; Start 04/12/16 at 21:00 Senna (Senokot) 1 tab QHS GTB Last administered on 04/14/16 21:30; Admin Dose 1 TAB; Start 04/12/16 at 21:00 Sodium Biphosphate/ Sodium Phosphate (Fleet Enema Pediatric) 66.6 ml DAILY PRN [place] CONSTIPATION; Start 04/11/16 at 22:30 Thiamine HCl (Vitamin B1) 100 mg DAILY GTB Last administered on 04/15/16 09:34 ; Admin Dose 100 MG; Start 04/12/16 at 09:00 Calcium Carbonate (Tums) 500 mg DAILY GTB Last administered on 04/15/16 09:29 ; Admin Dose 500 MG; Start 04/12/16 at 09:00 Multivitamins/ Minerals (Theragran-M) 1 tab DAILY PO Last administered on 09:40; Admin Dose 1 TAB; Start 04/12/16 at 09:00 Metoprolol Tartrate (Lopressor) 12.5 mg BID PO Last administered on 04/14/16 22:05; Admin Dose 12.5 MG; Start 04/12/16 at 12:30 Hydralazine HCl 10 mg 10 mg Q6H PRN IV SBP>170 Last administered on 04/17/16 09:10; Admin Dose 10 MG; Start 04/12/16 at 12:30 Ertapenem/Sodium Chloride (Invanz/NS) 100 ml @ 200 mls/hr Q24H IVPB Last administered on 04/16/16 17:47; Admin Dose 200 MLS/HR; Start 04/13/16 at 17:00 Lorazepam 1 mg 1 mg Q6H PRN IV AGITATION/ANXIETY Last administered on 14:39; Admin Dose 1 MG; Start 04/13/16 at 19:00 Dextrose/Sodium Chloride 1,000 ml @ 75 mls/hr [id number] IV Last administered on 04/17/16 11:48; Admin Dose 75 MLS/HR; Start 04/17/16 at 11:30 Vancomycin HCl (Vancocin) 250 ml @ 125 mls/hr Q24H IVPB ; Start 04/17/16 at 21: 00 CARRIE OLSEN NP Apr 17, 2016 14:27
--- NOTE | 2016-04-17 14:51 | RADRPT ---
PROCEDURE: Barium swallow with speech pathology present CLINICAL INDICATION: Difficulty swallowing, aspiration TECHNIQUE: 2.2 minutes of fluoroscopy time was utilized for barium swallow with thin liquids, thick liquids, nectar and food products. COMPARISON: None FINDINGS: Successful barium swallow was performed with speech pathology present. Please refer to the speech p athology report for full details. There was evidence of penetration with the thinner liquids. No gross aspiration was identified. IMPRESSION: Successful barium swallow with speech pathology present. 2.2 minutes of fluoroscopy time used. For full details, please refer to speech pathology report. RPTAT: EE .Catherine Francois MD, MD Date Time Electronically viewed and signed by .Catherine Francois MD, on 04/17/2016 14:51 .F/
--- NOTE | 2016-04-17 16:05 | PN ---
Date/Time of Note Date/Time of Note DATE: 04/17/16 TIME: 16:00 Assessment/Plan VTE Prophylaxis VTE Prophylaxis Intervention: LMWH Lines/Catheters IV C[facility]ter Type (from [facility] Peripheral IV Urinary Cath still in place: No Assessment/Plan Assessment/Plan - Acute hypoxic respiratory failure. - Dr. Anderson in pulmonology consultation. Continue ventilatory support and bronchodilators. - Possible healthcare-acquired left lower lung pneumonia versus aspiration. Continue antibiotics per ID. - per Dr. Rojas in infection disease consultation. - E. coli ESBL urinary tract infection. Continue meropenem. - Sepsis with Ecoli ESBL bacteremia 2 UTI. - Normocytic anemia. - Dysphagia, with G-tube. - History of chronic respiratory failure with tracheostomy. - Benign prostatic hypertrophy. - Schizoaffective disorder. Continue Seroquel and Ativan as needed for agitation. Continue Lovenox for deep venous thrombosis prophylaxis and Pepcid for peptic ulcer disease prophylaxis. Further recommendations based on clinical course. Plan of care discussed with Dr. Colunga. Subjective 24 Hr Interval Summary Free Text/Dictation NAD, denies pain, passed swallow eval-started on puree, thick nectar diet. dw staff. Constitutional: requiring IVF, requiring O2 Exam/Review of Systems Vital Signs Vitals Vital Signs Date Time Temp Pulse Resp B/P Pulse Ox O2 Delivery O2 Flow Rate FiO2 04/17/16 15:00 8.0 04/17/16 14:42 94 20 98 Aerosol 35 04/17/16 14:00 161/86 04/17/16 10:00 98.6 Intake and Output 04/16/16 04/16/16 04/17/16 15:00 23:00 07:00 Intake Total 0 ml 650 ml Output Total 350 ml 600 ml Balance -350 ml 50 ml Exam Constitutional: alert, frail Psych: nl mood/affect Eyes: EOMI, PERRL, nl sclera ENMT: nl external ears & nose Respiratory: diminished breath sounds, other (trach intact) Cardiovascular: nl pulses Gastrointestinal: non-tender, soft Musculoskeletal: muscle weakness Neurological: other (alert, responsive to name) Lymph: nontender Results Result Diagram: 04/17/16 0550 04/17/16 0550 Results 24 hrs Laboratory Tests Test 04/17/16 05:50 Anion Gap 18 H Anisocytosis 1+ Basophils # 0.0 Basophils % 0.3 Blood Urea Nitrogen 19 Calcium Level 8.8 Carbon Dioxide Level 25 Chloride Level 103 Creatinine 0.56 L Eosinophils # 0.0 Eosinophils % 0.0 Glucose Level 62 L Hematocrit 29.6 L Hemoglobin 9.3 L Hypochromasia 1+ Lymphocytes # 0.8 Lymphocytes % 24.4 Mean Corpuscular Hemoglobin 26.6 L Mean Corpuscular Hemoglobin Concent 31.4 L Mean Corpuscular Volume 84.6 Mean Platelet Volume 10.1 Monocytes # 0.3 Monocytes % 9.0 Neutrophils # 2.3 Neutrophils % 66.0 Nucleated Red Blood Cells # 0.0 Nucleated Red Blood Cells % 0.0 Ovalocytes OCCASIONAL Platelet Count 201 Poikilocytosis 1+ Potassium Level 4.0 Red Blood Count 3.50 L Red Cell Distribution Width 17.3 H Sodium Level 142 Target Cells OCCASIONAL White Blood Count 3.4 #L Medications Medications Current Medications Ondansetron HCl (Zofran Inj) 4 mg Q6H PRN IV NAUSEA AND/OR VOMITING; Start at 22:30 Acetaminophen (Tylenol Tab) 650 mg Q6H PRN PO PAIN LEVEL 1-3 OR FEVER; Start at 22:30 Morphine Sulfate (morphine) 2 mg Q4H PRN IV PAIN LEVEL 7-10; Start 04/11/16 at 22:30 Famotidine (Pepcid Iv) 20 mg Q12 IV Last administered on 04/17/16 09:05; Admin Dose 20 MG; Start 04/12/16 at 09:00 Enoxaparin Sodium (Lovenox) 30 mg DAILY SC Last administered on 04/17/16 09:05 ; Admin Dose 30 MG; Start 04/12/16 at 09:00 Ascorbic Acid (Vitamin C) 500 mg DAILY GTB Last administered on 04/15/16 09:34 ; Admin Dose 500 MG; Start 04/12/16 at 09:00 Bisacodyl (Dulcolax) 10 mg DAILY PRN PO CONSTIPATION; Start 04/11/16 at 22:30 Chlorhexidine Gluconate (Peridex) 15 ml BID MM Last administered on 04/17/16 09:05; Admin Dose 15 ML; Start 04/12/16 at 09:00 Ferrous Sulfate (Feosol Liquid Cup) 300 mg BID GTB Last administered on 09:28; Admin Dose 300 MG; Start 04/12/16 at 09:00 Acetaminophen/ Hydrocodone Bitart ([place] (5/325)) 1 tab Q4 PRN GTB PAIN LEVEL 6 -10; Start 04/11/16 at 22:30 Lactulose (Enulose) 20 gm DAILY GTB Last administered on 04/14/16 08:59; Admin Dose 20 GM; Start 04/12/16 at 09:00 Lorazepam (Ativan) 1 mg Q6 GTB Last administered on 04/15/16 17:08; Admin Dose 1 MG; Start 04/12/16 at 00:00 Quetiapine Fumarate (Seroquel) 25 mg BID@ GTB Last administered on 17:08; Admin Dose 25 MG; Start 04/12/16 at 09:00 Quetiapine Fumarate (Seroquel) 200 mg HS GTB Last administered on 04/14/16 21: 59; Admin Dose 200 MG; Start 04/12/16 at 21:00 Senna (Senokot) 1 tab QHS GTB Last administered on 04/14/16 21:30; Admin Dose 1 TAB; Start 04/12/16 at 21:00 Sodium Biphosphate/ Sodium Phosphate (Fleet Enema Pediatric) 66.6 ml DAILY PRN [place] CONSTIPATION; Start 04/11/16 at 22:30 Thiamine HCl (Vitamin B1) 100 mg DAILY GTB Last administered on 04/15/16 09:34 ; Admin Dose 100 MG; Start 04/12/16 at 09:00 Calcium Carbonate (Tums) 500 mg DAILY GTB Last administered on 04/15/16 09:29 ; Admin Dose 500 MG; Start 04/12/16 at 09:00 Multivitamins/ Minerals (Theragran-M) 1 tab DAILY PO Last administered on 09:40; Admin Dose 1 TAB; Start 04/12/16 at 09:00 Metoprolol Tartrate (Lopressor) 12.5 mg BID PO Last administered on 04/14/16 22:05; Admin Dose 12.5 MG; Start 04/12/16 at 12:30 Hydralazine HCl 10 mg 10 mg Q6H PRN IV SBP>170 Last administered on 04/17/16 09:10; Admin Dose 10 MG; Start 04/12/16 at 12:30 Ertapenem/Sodium Chloride (Invanz/NS) 100 ml @ 200 mls/hr Q24H IVPB Last administered on 04/16/16 17:47; Admin Dose 200 MLS/HR; Start 04/13/16 at 17:00 Lorazepam 1 mg 1 mg Q6H PRN IV AGITATION/ANXIETY Last administered on 14:39; Admin Dose 1 MG; Start 04/13/16 at 19:00 Dextrose/Sodium Chloride 1,000 ml @ 75 mls/hr [id number] IV Last administered on 04/17/16 11:48; Admin Dose 75 MLS/HR; Start 04/17/16 at 11:30 Vancomycin HCl (Vancocin) 250 ml @ 125 mls/hr Q24H IVPB ; Start 04/17/16 at 21: 00 BRENT KENDRICK Apr 17, 2016 16:05
[2016-04-17] MEDS: ERTAPENEM SODIUM 1 GM in SOD CHLORIDE 0.9% 100 ML IVPB SCH (17:46)
[2016-04-17] MEDS ORDERED: VANCOMYCIN 1 GM in NS 250 ML IVPB SCH (21:00)
[2016-04-17] MEDS: QUETIAPINE 100 MG TAB GTB SCH (21:45)
[2016-04-17] MEDS: SENNA TAB GTB SCH (21:45)
[2016-04-18] VITALS (15 sets, daily range): BP systolic 132–196; BP diastolic 70–97; PULSE 56–90; RESP 16–20
[2016-04-18] MEDS: DEXTROSE 5%-0.9% NACL 1,000 ML IV SCH ×3 (00:50→23:34)
[2016-04-18] MEDS: ALBUTEROL/IPRATROPIUM (NEB) 3 ML AMP INH SCH ×4 (03:08→20:00)
[2016-04-18] MEDS: LORAZEPAM 2 MG INJ IV PRN (05:16)
[2016-04-18] MEDS: LORAZEPAM 1 MG TAB GTB SCH ×4 (05:23→23:38)
[2016-04-18] MEDS: FERROUS SULFATE 60 MG/ML 5ML CUP GTB SCH ×2 (10:52→20:07)
[2016-04-18] MEDS: LACTULOSE 30ML CUP GTB SCH (10:52)
[2016-04-18] MEDS: CALCIUM CARBONATE 500 MG CHEW TAB GTB SCH (10:53)
[2016-04-18] MEDS: THIAMINE 100 MG TAB GTB SCH (10:53)
[2016-04-18] MEDS: CHLORHEXIDINE GLUCONATE 15 ML UD CUP MM SCH ×2 (10:53→20:08)
[2016-04-18] MEDS: ASCORBIC ACID 500 MG TAB GTB SCH (10:53)
[2016-04-18] MEDS: FAMOTIDINE 20 MG INJ IV SCH ×2 (10:53→20:07)
[2016-04-18] MEDS: METOPROLOL 25 MG TAB PO SCH ×2 (10:54→20:08)
[2016-04-18] MEDS: ENOXAPARIN 30 MG/0.3 ML SYG SC SCH (10:56)
[2016-04-18] MEDS: QUETIAPINE 25 MG TAB GTB SCH ×2 (11:04→17:36)
[2016-04-18] MEDS: MULTIVITAMINS/MINERALS TAB PO SCH (11:04)
[2016-04-18 11:35] LABS: ADD SCAN DIFF NO
[2016-04-18 11:39] LABS: BASOPHILS % 0.5 % (0.0-2.0); EOSINOPHILS % 0.7 % (0.0-7.0); HEMATOCRIT 28.9 % (42.0-52.0); HEMOGLOBIN 8.8 g/dl (14.0-18.0); LYMPHOCYTES # 1.3 10^3/ul (0.8-2.9); LYMPHOCYTES % 29.1 % (15.0-51.0); MEAN CORPUSCULAR HEMOGLOBIN 26.1 pg (29.0-33.0); MEAN CORPUSCULAR HGB CONC 30.4 g/dl (32.0-37.0); MEAN CORPUSCULAR VOLUME 85.8 fl (82.0-101.0); MEAN PLATELET VOLUME 11.5 fl (7.4-10.4); MONOCYTE # 0.6 10^3/ul (0.3-0.9); MONOCYTES % 13.5 % (0.0-11.0); NEUTROPHIL # 2.4 10^3/ul (1.6-7.5); PLATELET COUNT 214 10^3/UL (140-415); RED BLOOD COUNT 3.37 10^6/ul (4.70-6.10); WHITE BLOOD COUNT 4.4 10^3/ul (4.8-10.8)
[2016-04-18 11:54] LABS: CREATININE 0.55 mg/dl (0.61-1.24)
[2016-04-18 11:55] LABS: CALCIUM 8.5 mg/dl (8.4-10.2)
--- NOTE | 2016-04-18 12:20 | CONS ---
Date/Time of Note Date/Time of Note DATE: 04/18/16 TIME: 12:18 Assessment/Plan Assessment/Plan Additional Assessment/Plan Assessment and recommendations; 1. Patient admitted with severe left-sided pneumonia with marked clinical and radiological improvement. 2. Mild hypokalemia. 3. History of alcoholic encephalopathy. Continue current treatment. Replace potassium. Consultation Date/Type/Reason Admit Date/Time Apr 11, 2016 at 22:13 Initial Consult Date 04/12/16 Type of Consultation: Pulmonary 24 HR Interval Summary Free Text/Dictation Condition stable. Still exhibiting alcoholic encephalopathy . Patient however is more alert and trying to talk. General examination; elderly male, currently in no distress. Awake and alert. Exam/Review of Systems Vital Signs Vitals Vital Signs Date Time Temp Pulse Resp B/P Pulse Ox O2 Delivery O2 Flow Rate FiO2 04/18/16 08:53 98.4 62 20 172/79 95 04/18/16 06:18 Trach Collar 04/18/16 03:21 8.0 35 Intake and Output 04/17/16 04/17/16 04/18/16 15:00 23:00 07:00 Intake Total 450 ml 895 ml 1085 ml Output Total 800 ml 400 ml Balance 450 ml 95 ml 685 ml Exam HEENT examination; supple neck, no JVD. No lymphadenopathy. Midline trachea. Tracheostomy in place. Insertion site is clean. Patient upper jaw is edentulous. Nipples are midsize and reactive to light. Chest examination; diminished but clear breath sounds bilaterally. S1-S2 audible, no murmurs. Regular rhythm. Abdomen examination; soft, nontender. No organomegaly. Bowel sounds audible. Extremity examination; no peripheral edema. Patient does have severe muscle wasting involving all 4 extremities. 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 Results Result Diagram: 04/18/16 1115 04/18/16 1115 Results 24 hrs Laboratory Tests Test 04/18/16 11:15 Anion Gap 10 # Basophils # 0.0 Basophils % 0.5 Blood Urea Nitrogen 14 Calcium Level 8.5 Carbon Dioxide Level 32 H Chloride Level 102 Creatinine 0.55 L Eosinophils # 0.0 Eosinophils % 0.7 Glucose Level 105 # Hematocrit 28.9 L Hemoglobin 8.8 L Lymphocytes # 1.3 Lymphocytes % 29.1 Mean Corpuscular Hemoglobin 26.1 L Mean Corpuscular Hemoglobin Concent 30.4 L Mean Corpuscular Volume 85.8 Mean Platelet Volume 11.5 H Monocytes # 0.6 Monocytes % 13.5 H Neutrophils # 2.4 Neutrophils % 56.0 Nucleated Red Blood Cells # 0.0 Nucleated Red Blood Cells % 0.0 Platelet Count 214 Potassium Level 3.0 L Red Blood Count 3.37 L Red Cell Distribution Width 18.0 H Sodium Level 141 White Blood Count 4.4 #L Medications Medications Current Medications Ondansetron HCl (Zofran Inj) 4 mg Q6H PRN IV NAUSEA AND/OR VOMITING; Start at 22:30 Acetaminophen (Tylenol Tab) 650 mg Q6H PRN PO PAIN LEVEL 1-3 OR FEVER; Start at 22:30 Morphine Sulfate (morphine) 2 mg Q4H PRN IV PAIN LEVEL 7-10; Start 04/11/16 at 22:30 Famotidine (Pepcid Iv) 20 mg Q12 IV Last administered on 04/18/16 10:53; Admin Dose 20 MG; Start 04/12/16 at 09:00 Enoxaparin Sodium (Lovenox) 30 mg DAILY SC Last administered on 04/18/16 10:56 ; Admin Dose 30 MG; Start 04/12/16 at 09:00 Ascorbic Acid (Vitamin C) 500 mg DAILY GTB Last administered on 04/18/16 10:53 ; Admin Dose 500 MG; Start 04/12/16 at 09:00 Bisacodyl (Dulcolax) 10 mg DAILY PRN PO CONSTIPATION; Start 04/11/16 at 22:30 Chlorhexidine Gluconate (Peridex) 15 ml BID MM Last administered on 04/18/16 10:53; Admin Dose 15 ML; Start 04/12/16 at 09:00 Ferrous Sulfate (Feosol Liquid Cup) 300 mg BID GTB Last administered on 10:52; Admin Dose 300 MG; Start 04/12/16 at 09:00 Acetaminophen/ Hydrocodone Bitart ([place] (5/325)) 1 tab Q4 PRN GTB PAIN LEVEL 6 -10; Start 04/11/16 at 22:30 Lactulose (Enulose) 20 gm DAILY GTB Last administered on 04/18/16 10:52; Admin Dose 20 GM; Start 04/12/16 at 09:00 Lorazepam (Ativan) 1 mg Q6 GTB Last administered on 04/17/16 23:53; Admin Dose 1 MG; Start 04/12/16 at 00:00 Quetiapine Fumarate (Seroquel) 25 mg BID@,17 GTB Last administered on 11:04; Admin Dose 25 MG; Start 04/12/16 at 09:00 Quetiapine Fumarate (Seroquel) 200 mg HS GTB Last administered on 04/17/16 21: 45; Admin Dose 200 MG; Start 04/12/16 at 21:00 Senna (Senokot) 1 tab QHS GTB Last administered on 04/17/16 21:45; Admin Dose 1 TAB; Start 04/12/16 at 21:00 Sodium Biphosphate/ Sodium Phosphate (Fleet Enema Pediatric) 66.6 ml DAILY PRN [place] CONSTIPATION; Start 04/11/16 at 22:30 Thiamine HCl (Vitamin B1) 100 mg DAILY GTB Last administered on 04/18/16 10:53 ; Admin Dose 100 MG; Start 04/12/16 at 09:00 Calcium Carbonate (Tums) 500 mg DAILY GTB Last administered on 04/18/16 10:53 ; Admin Dose 500 MG; Start 04/12/16 at 09:00 Multivitamins/ Minerals (Theragran-M) 1 tab DAILY PO Last administered on 11:04; Admin Dose 1 TAB; Start 04/12/16 at 09:00 Metoprolol Tartrate (Lopressor) 12.5 mg BID PO Last administered on 04/18/16 10:54; Admin Dose 12.5 MG; Start 04/12/16 at 12:30 Hydralazine HCl 10 mg 10 mg Q6H PRN IV SBP>170 Last administered on 04/17/16 09:10; Admin Dose 10 MG; Start 04/12/16 at 12:30 Ertapenem/Sodium Chloride (Invanz/NS) 100 ml @ 200 mls/hr Q24H IVPB Last administered on 04/17/16 17:46; Admin Dose 200 MLS/HR; Start 04/13/16 at 17:00 Lorazepam 1 mg 1 mg Q6H PRN IV AGITATION/ANXIETY Last administered on 05:16; Admin Dose 1 MG; Start 04/13/16 at 19:00 Dextrose/Sodium Chloride (D5-NS) 1,000 ml @ 75 mls/hr [id number] IV Last administered on 04/18/16 05:18; Admin Dose 75 MLS/HR; Start 04/17/16 at 11:30 KATHERYN LAWTON Apr 18, 2016 12:20
[2016-04-18] MEDS ORDERED: POTASSIUM CHLORIDE 250 ML IVPB ONE (12:30)
[2016-04-18] MEDS ORDERED: POTASSIUM CHLORIDE 250 ML IVPB SCH (13:30)
[2016-04-18] MEDS: ERTAPENEM SODIUM 1 GM in SOD CHLORIDE 0.9% 100 ML IVPB SCH (17:36)
--- NOTE | 2016-04-18 18:09 | CONS ---
Date/Time of Note Date/Time of Note DATE: 04/18/16 TIME: 18:07 Assessment/Plan Assessment/Plan Chief Complaint/Hosp Course ID PROGRESS NOTE CURRENT ABX=> Invanz = DAY #7 s/p Vanco IV #6 24H INTERVAL SUMMARY * Clinically stable w/slow improvement per notes - refused blood draw in am, subsequently consented later this am * Lethargy on and off -- overall more alert - Afebrile, VSS, NAD, looks comfortable * Swallow eval noted: There was evidence of penetration with the thinner liquids. No gross aspiration was identified. PHYSICAL EXAMINATION: GENERAL: VSS, NAD HEENT: Unremarkable -- NECK: Supple, trach(+) CHEST: Rise symmetrical, without dyspnea on observation HEART: Pulse RRR ABDOMEN: Soft, benign EXTREMITIES: Warm ID ASSESSMENT 65 yo M admit with PMHx dementia + schizoaffective Dx, trach, peg admit with: 1. Sepsis with Escherichia coli extended-spectrum beta-lactamase bacteremia secondary to #2. 2. Escherichia coli extended-spectrum beta-lactamase urinary tract infection. 3. Healthcare-associated pneumonia = Aspiration Pneumonitis * Swallow Eval: (+)Silent aspiration w/thin liquids (+)backflow into sinuses/ NO Gross Aspiration. 4. Chronic respiratory failure. 5. Benign prostatic hypertrophy. (-)MRSA NARES INVASIVES: PIV ABX ALLERGY: None to ABX known CURRENT ABX: TOTAL ABX DAY #7 Invanz s/p => Vanco IV #6 ID RECOMMENDATIONS 1.Continue Invanz total course # 7 / 14 days to cover concern bacteremia 2. Aspiration precautions = Thickened liquids & follow Speech Tx recommendations 3. Back to SNF on ABX when cleared by primary provider . . Problems: Consultation Date/Type/Reason Admit Date/Time Apr 11, 2016 at 22:13 Initial Consult Date 04/12/16 Type of Consultation: ID Exam/Review of Systems Vital Signs Vitals Vital Signs Date Time Temp Pulse Resp B/P Pulse Ox O2 Delivery O2 Flow Rate FiO2 04/18/16 14:32 90 20 98 Aerosol 8.0 35 04/18/16 12:00 98.2 166/83 Intake and Output 04/17/16 04/17/16 04/18/16 14:59 22:59 06:59 Intake Total 450 ml 895 ml 1085 ml Output Total 800 ml 400 ml Balance 450 ml 95 ml 685 ml Results Result Diagram: 04/18/16 1115 04/18/16 1115 Results 24 hrs Laboratory Tests Test 04/18/16 11:15 Anion Gap 10 # Basophils # 0.0 Basophils % 0.5 Blood Urea Nitrogen 14 Calcium Level 8.5 Carbon Dioxide Level 32 H Chloride Level 102 Creatinine 0.55 L Eosinophils # 0.0 Eosinophils % 0.7 Glucose Level 105 # Hematocrit 28.9 L Hemoglobin 8.8 L Lymphocytes # 1.3 Lymphocytes % 29.1 Mean Corpuscular Hemoglobin 26.1 L Mean Corpuscular Hemoglobin Concent 30.4 L Mean Corpuscular Volume 85.8 Mean Platelet Volume 11.5 H Monocytes # 0.6 Monocytes % 13.5 H Neutrophils # 2.4 Neutrophils % 56.0 Nucleated Red Blood Cells # 0.0 Nucleated Red Blood Cells % 0.0 Platelet Count 214 Potassium Level 3.0 L Red Blood Count 3.37 L Red Cell Distribution Width 18.0 H Sodium Level 141 White Blood Count 4.4 #L Medications Medications Current Medications Ondansetron HCl (Zofran Inj) 4 mg Q6H PRN IV NAUSEA AND/OR VOMITING; Start at 22:30 Acetaminophen (Tylenol Tab) 650 mg Q6H PRN PO PAIN LEVEL 1-3 OR FEVER; Start at 22:30 Morphine Sulfate (morphine) 2 mg Q4H PRN IV PAIN LEVEL 7-10; Start 04/11/16 at 22:30 Famotidine (Pepcid Iv) 20 mg Q12 IV Last administered on 04/18/16 10:53; Admin Dose 20 MG; Start 04/12/16 at 09:00 Enoxaparin Sodium (Lovenox) 30 mg DAILY SC Last administered on 04/18/16 10:56 ; Admin Dose 30 MG; Start 04/12/16 at 09:00 Ascorbic Acid (Vitamin C) 500 mg DAILY GTB Last administered on 04/18/16 10:53 ; Admin Dose 500 MG; Start 04/12/16 at 09:00 Bisacodyl (Dulcolax) 10 mg DAILY PRN PO CONSTIPATION; Start 04/11/16 at 22:30 Chlorhexidine Gluconate (Peridex) 15 ml BID MM Last administered on 04/18/16 10:53; Admin Dose 15 ML; Start 04/12/16 at 09:00 Ferrous Sulfate (Feosol Liquid Cup) 300 mg BID GTB Last administered on 10:52; Admin Dose 300 MG; Start 04/12/16 at 09:00 Acetaminophen/ Hydrocodone Bitart ([place] (5/325)) 1 tab Q4 PRN GTB PAIN LEVEL 6 -10; Start 04/11/16 at 22:30 Lactulose (Enulose) 20 gm DAILY GTB Last administered on 04/18/16 10:52; Admin Dose 20 GM; Start 04/12/16 at 09:00 Lorazepam (Ativan) 1 mg Q6 GTB Last administered on 04/18/16 17:37; Admin Dose 1 MG; Start 04/12/16 at 00:00 Quetiapine Fumarate (Seroquel) 25 mg BID@ GTB Last administered on 17:36; Admin Dose 25 MG; Start 04/12/16 at 09:00 Quetiapine Fumarate (Seroquel) 200 mg HS GTB Last administered on 04/17/16 21: 45; Admin Dose 200 MG; Start 04/12/16 at 21:00 Senna (Senokot) 1 tab QHS GTB Last administered on 04/17/16 21:45; Admin Dose 1 TAB; Start 04/12/16 at 21:00 Sodium Biphosphate/ Sodium Phosphate (Fleet Enema Pediatric) 66.6 ml DAILY PRN [place] CONSTIPATION; Start 04/11/16 at 22:30 Thiamine HCl (Vitamin B1) 100 mg DAILY GTB Last administered on 04/18/16 10:53 ; Admin Dose 100 MG; Start 04/12/16 at 09:00 Calcium Carbonate (Tums) 500 mg DAILY GTB Last administered on 04/18/16 10:53 ; Admin Dose 500 MG; Start 04/12/16 at 09:00 Multivitamins/ Minerals (Theragran-M) 1 tab DAILY PO Last administered on 11:04; Admin Dose 1 TAB; Start 04/12/16 at 09:00 Metoprolol Tartrate (Lopressor) 12.5 mg BID PO Last administered on 04/18/16 10:54; Admin Dose 12.5 MG; Start 04/12/16 at 12:30 Hydralazine HCl 10 mg 10 mg Q6H PRN IV SBP>170 Last administered on 04/17/16 09:10; Admin Dose 10 MG; Start 04/12/16 at 12:30 Ertapenem/Sodium Chloride (Invanz/NS) 100 ml @ 200 mls/hr Q24H IVPB Last administered on 04/18/16 17:36; Admin Dose 200 MLS/HR; Start 04/13/16 at 17:00 Lorazepam 1 mg 1 mg Q6H PRN IV AGITATION/ANXIETY Last administered on 05:16; Admin Dose 1 MG; Start 04/13/16 at 19:00 Dextrose/Sodium Chloride (D5-NS) 1,000 ml @ 75 mls/hr [id number] IV Last administered on 04/18/16 05:18; Admin Dose 75 MLS/HR; Start 04/17/16 at 11:30 CARRIE OLSEN NP Apr 18, 2016 18:09
--- NOTE | 2016-04-18 18:50 | PN ---
Date/Time of Note Date/Time of Note DATE: 04/18/16 TIME: 18:50 Assessment/Plan VTE Prophylaxis VTE Prophylaxis Intervention: LMWH, other Lines/Catheters [facility] Peripheral IV Urinary Cath still in place: No Assessment/Plan Assessment/Plan - Acute hypoxic respiratory failure. - Dr. Anderson in pulmonology consultation. Continue ventilatory support and bronchodilators. - Possible healthcare-acquired left lower lung pneumonia versus aspiration. Continue antibiotics per ID. - per Dr. Rojas in infection disease consultation. - E. coli ESBL urinary tract infection. Continue meropenem. - Sepsis with Ecoli ESBL bacteremia 2 UTI. - Normocytic anemia. - Dysphagia, with G-tube. - History of chronic respiratory failure with tracheostomy. - Benign prostatic hypertrophy. - Schizoaffective disorder. Continue Seroquel and Ativan as needed for agitation. Continue Lovenox for deep venous thrombosis prophylaxis and Pepcid for peptic ulcer disease prophylaxis. Further recommendations based on clinical course. Plan of care discussed with Dr. Colunga. Subjective 24 Hr Interval Summary Free Text/Dictation nad, alert, follows simple commands, no new issues reported by staff. dw staff, Constitutional: requiring IVF, requiring O2 Eyes: no complaints ENT: no complaints Respiratory: no complaints Cardiovascular: no complaints Gastrointestinal: no complaints Exam/Review of Systems Vital Signs Vitals Vital Signs Date Time Temp Pulse Resp B/P Pulse Ox O2 Delivery O2 Flow Rate FiO2 04/18/16 14:32 90 20 98 Aerosol 8.0 35 04/18/16 12:00 98.2 166/83 Intake and Output 04/17/16 04/17/16 04/18/16 15:00 23:00 07:00 Intake Total 450 ml 895 ml 1085 ml Output Total 800 ml 400 ml Balance 450 ml 95 ml 685 ml Exam Constitutional: alert, well developed Psych: no complaints Head: atraumatic Eyes: EOMI ENMT: nl external ears & nose Neck: non-tender Respiratory: diminished breath sounds, other (trach tube intact) Cardiovascular: nl pulses Gastrointestinal: non-tender, other (gt intact), soft Musculoskeletal: muscle weakness Extremities: normal pulses Neurological: other (alert, follows simple commands) Skin: nl turgor Lymph: nontender Results Result Diagram: 04/18/16 1115 04/18/16 1115 Results 24 hrs Laboratory Tests Test 04/18/16 11:15 Anion Gap 10 # Basophils # 0.0 Basophils % 0.5 Blood Urea Nitrogen 14 Calcium Level 8.5 Carbon Dioxide Level 32 H Chloride Level 102 Creatinine 0.55 L Eosinophils # 0.0 Eosinophils % 0.7 Glucose Level 105 # Hematocrit 28.9 L Hemoglobin 8.8 L Lymphocytes # 1.3 Lymphocytes % 29.1 Mean Corpuscular Hemoglobin 26.1 L Mean Corpuscular Hemoglobin Concent 30.4 L Mean Corpuscular Volume 85.8 Mean Platelet Volume 11.5 H Monocytes # 0.6 Monocytes % 13.5 H Neutrophils # 2.4 Neutrophils % 56.0 Nucleated Red Blood Cells # 0.0 Nucleated Red Blood Cells % 0.0 Platelet Count 214 Potassium Level 3.0 L Red Blood Count 3.37 L Red Cell Distribution Width 18.0 H Sodium Level 141 White Blood Count 4.4 #L Medications Medications Current Medications Ondansetron HCl (Zofran Inj) 4 mg Q6H PRN IV NAUSEA AND/OR VOMITING; Start at 22:30 Acetaminophen (Tylenol Tab) 650 mg Q6H PRN PO PAIN LEVEL 1-3 OR FEVER; Start at 22:30 Morphine Sulfate (morphine) 2 mg Q4H PRN IV PAIN LEVEL 7-10; Start 04/11/16 at 22:30 Famotidine (Pepcid Iv) 20 mg Q12 IV Last administered on 04/18/16 10:53; Admin Dose 20 MG; Start 04/12/16 at 09:00 Enoxaparin Sodium (Lovenox) 30 mg DAILY SC Last administered on 04/18/16 10:56 ; Admin Dose 30 MG; Start 04/12/16 at 09:00 Ascorbic Acid (Vitamin C) 500 mg DAILY GTB Last administered on 04/18/16 10:53 ; Admin Dose 500 MG; Start 04/12/16 at 09:00 Bisacodyl (Dulcolax) 10 mg DAILY PRN PO CONSTIPATION; Start 04/11/16 at 22:30 Chlorhexidine Gluconate (Peridex) 15 ml BID MM Last administered on 04/18/16 10:53; Admin Dose 15 ML; Start 04/12/16 at 09:00 Ferrous Sulfate (Feosol Liquid Cup) 300 mg BID GTB Last administered on 10:52; Admin Dose 300 MG; Start 04/12/16 at 09:00 Acetaminophen/ Hydrocodone Bitart ([place] (5/325)) 1 tab Q4 PRN GTB PAIN LEVEL 6 -10; Start 04/11/16 at 22:30 Lactulose (Enulose) 20 gm DAILY GTB Last administered on 04/18/16 10:52; Admin Dose 20 GM; Start 04/12/16 at 09:00 Lorazepam (Ativan) 1 mg Q6 GTB Last administered on 04/18/16 17:37; Admin Dose 1 MG; Start 04/12/16 at 00:00 Quetiapine Fumarate (Seroquel) 25 mg BID@ GTB Last administered on 17:36; Admin Dose 25 MG; Start 04/12/16 at 09:00 Quetiapine Fumarate (Seroquel) 200 mg HS GTB Last administered on 04/17/16 21: 45; Admin Dose 200 MG; Start 04/12/16 at 21:00 Senna (Senokot) 1 tab QHS GTB Last administered on 04/17/16 21:45; Admin Dose 1 TAB; Start 04/12/16 at 21:00 Sodium Biphosphate/ Sodium Phosphate (Fleet Enema Pediatric) 66.6 ml DAILY PRN [place] CONSTIPATION; Start 04/11/16 at 22:30 Thiamine HCl (Vitamin B1) 100 mg DAILY GTB Last administered on 04/18/16 10:53 ; Admin Dose 100 MG; Start 04/12/16 at 09:00 Calcium Carbonate (Tums) 500 mg DAILY GTB Last administered on 04/18/16 10:53 ; Admin Dose 500 MG; Start 04/12/16 at 09:00 Multivitamins/ Minerals (Theragran-M) 1 tab DAILY PO Last administered on 11:04; Admin Dose 1 TAB; Start 04/12/16 at 09:00 Metoprolol Tartrate (Lopressor) 12.5 mg BID PO Last administered on 04/18/16 10:54; Admin Dose 12.5 MG; Start 04/12/16 at 12:30 Hydralazine HCl 10 mg 10 mg Q6H PRN IV SBP>170 Last administered on 04/17/16 09:10; Admin Dose 10 MG; Start 04/12/16 at 12:30 Ertapenem/Sodium Chloride (Invanz/NS) 100 ml @ 200 mls/hr Q24H IVPB Last administered on 04/18/16 17:36; Admin Dose 200 MLS/HR; Start 04/13/16 at 17:00 Lorazepam 1 mg 1 mg Q6H PRN IV AGITATION/ANXIETY Last administered on 05:16; Admin Dose 1 MG; Start 04/13/16 at 19:00 Dextrose/Sodium Chloride (D5-NS) 1,000 ml @ 75 mls/hr [id number] IV Last administered on 04/18/16 05:18; Admin Dose 75 MLS/HR; Start 04/17/16 at 11:30 BRENT KENDRICK Apr 18, 2016 18:50
[2016-04-18] MEDS: QUETIAPINE 100 MG TAB GTB SCH (20:07)
[2016-04-18] MEDS: SENNA TAB GTB SCH (20:07)
[2016-04-19] VITALS (16 sets, daily range): BP systolic 137–193; BP diastolic 68–86; PULSE 60–95; RESP 18–19
[2016-04-19] MEDS: ALBUTEROL/IPRATROPIUM (NEB) 3 ML AMP INH SCH ×3 (01:41→20:51)
[2016-04-19] MEDS: hydrALAzine 20 MG INJ IV PRN ×2 (04:56→22:46)
[2016-04-19] MEDS: LORAZEPAM 1 MG TAB GTB SCH ×3 (05:20→18:23)
[2016-04-19] MEDS: CALCIUM CARBONATE 500 MG CHEW TAB GTB SCH (10:15)
[2016-04-19] MEDS: FAMOTIDINE 20 MG INJ IV SCH (10:15)
[2016-04-19] MEDS: MULTIVITAMINS/MINERALS TAB PO SCH (10:15)
[2016-04-19] MEDS: THIAMINE 100 MG TAB GTB SCH (10:15)
[2016-04-19] MEDS: FERROUS SULFATE 60 MG/ML 5ML CUP GTB SCH ×2 (10:15→22:43)
[2016-04-19] MEDS: LACTULOSE 30ML CUP GTB SCH (10:15)
[2016-04-19] MEDS: ASCORBIC ACID 500 MG TAB GTB SCH (10:16)
[2016-04-19] MEDS: METOPROLOL 25 MG TAB PO SCH ×2 (10:16→22:44)
[2016-04-19] MEDS: CHLORHEXIDINE GLUCONATE 15 ML UD CUP MM SCH ×2 (10:16→22:44)
[2016-04-19] MEDS: ENOXAPARIN 30 MG/0.3 ML SYG SC SCH (10:18)
[2016-04-19] MEDS: QUETIAPINE 25 MG TAB GTB SCH ×2 (10:21→18:23)
--- NOTE | 2016-04-19 12:49 | PN ---
Date/Time of Note Date/Time of Note DATE: 04/19/16 TIME: 12:46 Assessment/Plan VTE Prophylaxis VTE Prophylaxis Intervention: SCD's Lines/Catheters [facility] Peripheral IV Urinary Cath still in place: No Assessment/Plan Chief Complaint/Hosp Course ASSESSMENT AND PLAN: - Acute hypoxic respiratory failure. Dr. Anderson is following in pulmonology consultation. Continue ventilatory support and bronchodilators. - Possible healthcare-acquired left lower lung pneumonia versus aspiration. Continue antibiotics per ID. Dr. Rojas is following an infection disease consultation. - E. coli ESBL urinary tract infection. Continue Ertapenem. - Sepsis with Ecoli ESBL bacteremia 2 UTI. - Normocytic anemia. - Dysphagia, with G-tube. - History of chronic respiratory failure with tracheostomy. - Benign prostatic hypertrophy. - Schizoaffective disorder. Continue Seroquel and Ativan as needed for agitation. Continue Lovenox for deep venous thrombosis prophylaxis and Pepcid for peptic ulcer disease prophylaxis. Further recommendations based on clinical course. Plan of care discussed with Dr. Colunga. Problems: Subjective 24 Hr Interval Summary Free Text/Dictation Patient remains afebrile, tolerates Gt feeding well. Exam/Review of Systems Vital Signs Vitals Vital Signs Date Time Temp Pulse Resp B/P Pulse Ox O2 Delivery O2 Flow Rate FiO2 04/19/16 12:00 97.8 18 152/85 99 Trach Collar 04/19/16 11:33 8.0 35 04/19/16 10:00 70 Intake and Output 04/18/16 04/18/16 04/19/16 15:00 23:00 07:00 Intake Total 1505 ml 1230 ml Balance 1505 ml 1230 ml Exam GENERAL: A well-developed, cachectic gentleman, currently is awake, alert, follows immediate commands, otherwise confused. HEENT: Head is atraumatic, normocephalic. LYDIA. NECK: Supple, with tracheostomy at the base of the neck, with a moderate amount of secretions, no bleeding. LUNGS: Diminished at the bases. Patient has scattered severe rhonchi bilaterally. CARDIOVASCULAR: Normal S1, S2. No murmurs, gallops, clicks, rubs noted. ABDOMEN: Flat, soft, nondistended, nontender. Bowel sounds present. Patient has a G-tube with intact stoma. EXTREMITIES: Contractured. There is no edema, clubbing, cyanosis. Pulses equal bilaterally, 2+. SKIN: There is no rash, petechiae noted. NEUROLOGIC: Patient is awake, alert. Results Result Diagram: 04/18/16 1115 04/18/16 1115 Medications Medications Current Medications Ondansetron HCl (Zofran Inj) 4 mg Q6H PRN IV NAUSEA AND/OR VOMITING; Start at 22:30 Acetaminophen (Tylenol Tab) 650 mg Q6H PRN PO PAIN LEVEL 1-3 OR FEVER; Start at 22:30 Morphine Sulfate (morphine) 2 mg Q4H PRN IV PAIN LEVEL 7-10; Start 04/11/16 at 22:30 Famotidine (Pepcid Iv) 20 mg Q12 IV Last administered on 04/19/16 10:15; Admin Dose 20 MG; Start 04/12/16 at 09:00 Enoxaparin Sodium (Lovenox) 30 mg DAILY SC Last administered on 04/19/16 10:18 ; Admin Dose 30 MG; Start 04/12/16 at 09:00 Ascorbic Acid (Vitamin C) 500 mg DAILY GTB Last administered on 04/19/16 10:16 ; Admin Dose 500 MG; Start 04/12/16 at 09:00 Bisacodyl (Dulcolax) 10 mg DAILY PRN PO CONSTIPATION; Start 04/11/16 at 22:30 Chlorhexidine Gluconate (Peridex) 15 ml BID MM Last administered on 04/19/16 10:16; Admin Dose 15 ML; Start 04/12/16 at 09:00 Ferrous Sulfate (Feosol Liquid Cup) 300 mg BID GTB Last administered on 10:15; Admin Dose 300 MG; Start 04/12/16 at 09:00 Acetaminophen/ Hydrocodone Bitart ([place] (5/325)) 1 tab Q4 PRN GTB PAIN LEVEL 6 -10; Start 04/11/16 at 22:30 Lactulose (Enulose) 20 gm DAILY GTB Last administered on 04/19/16 10:15; Admin Dose 20 GM; Start 04/12/16 at 09:00 Lorazepam (Ativan) 1 mg Q6 GTB Last administered on 04/19/16 05:20; Admin Dose 1 MG; Start 04/12/16 at 00:00 Quetiapine Fumarate (Seroquel) 25 mg BID@ GTB Last administered on 10:21; Admin Dose 25 MG; Start 04/12/16 at 09:00 Quetiapine Fumarate (Seroquel) 200 mg HS GTB Last administered on 04/18/16 20: 07; Admin Dose 200 MG; Start 04/12/16 at 21:00 Senna (Senokot) 1 tab QHS GTB Last administered on 04/18/16 20:07; Admin Dose 1 TAB; Start 04/12/16 at 21:00 Sodium Biphosphate/ Sodium Phosphate (Fleet Enema Pediatric) 66.6 ml DAILY PRN [place] CONSTIPATION; Start 04/11/16 at 22:30 Thiamine HCl (Vitamin B1) 100 mg DAILY GTB Last administered on 04/19/16 10:15 ; Admin Dose 100 MG; Start 04/12/16 at 09:00 Calcium Carbonate (Tums) 500 mg DAILY GTB Last administered on 04/19/16 10:15 ; Admin Dose 500 MG; Start 04/12/16 at 09:00 Multivitamins/ Minerals (Theragran-M) 1 tab DAILY PO Last administered on 10:15; Admin Dose 1 TAB; Start 04/12/16 at 09:00 Metoprolol Tartrate (Lopressor) 12.5 mg BID PO Last administered on 04/19/16 10:16; Admin Dose 12.5 MG; Start 04/12/16 at 12:30 Hydralazine HCl 10 mg 10 mg Q6H PRN IV SBP>170 Last administered on 04/19/16 04:56; Admin Dose 10 MG; Start 04/12/16 at 12:30 Ertapenem/Sodium Chloride (Invanz/NS) 100 ml @ 200 mls/hr Q24H IVPB Last administered on 04/18/16 17:36; Admin Dose 200 MLS/HR; Start 04/13/16 at 17:00 Lorazepam 1 mg 1 mg Q6H PRN IV AGITATION/ANXIETY Last administered on 05:16; Admin Dose 1 MG; Start 04/13/16 at 19:00 Dextrose/Sodium Chloride (D5-NS) 1,000 ml @ 75 mls/hr [id number] IV Last administered on 04/18/16t 23:34; Admin Dose 75 MLS/HR; Start 04/17/16 at 11:30 SHELBY BUNCH Apr 19, 2016 12:49
--- NOTE | 2016-04-19 12:57 | CONS ---
Date/Time of Note Date/Time of Note DATE: 04/19/16 TIME: 12:55 Assessment/Plan Assessment/Plan Additional Assessment/Plan Assessment and recommendations; next 1. Patient admitted with severe left-sided pneumonia with significant clinical and radiological improvement. 2. Gram-negative bacteremia. Patient currently on appropriate antibiotic regimen. 3. Alcoholic encephalopathy. 4. History of paraplegia. Continue current treatment. Consultation Date/Type/Reason Admit Date/Time Apr 11, 2016 at 22:13 Initial Consult Date 04/12/16 Type of Consultation: Pulmonary 24 HR Interval Summary Free Text/Dictation Patient condition stable. Still has to be restrained on account of episodes of agitation. Patient is awake, alert. Able to talk, the patient appears confused which is his underlying mental status on account of alcoholic encephalopathy. General examination; elderly male currently in no distress awake and alert. Exam/Review of Systems Vital Signs Vitals Vital Signs Date Time Temp Pulse Resp B/P Pulse Ox O2 Delivery O2 Flow Rate FiO2 04/19/16 12:00 97.8 18 152/85 99 Trach Collar 04/19/16 11:33 8.0 35 04/19/16 10:00 70 Intake and Output 04/18/16 04/18/16 04/19/16 15:00 23:00 07:00 Intake Total 1505 ml 1230 ml Balance 1505 ml 1230 ml Exam HEENT examination; supple neck, no JVD. No lymphadenopathy. Midline trachea. Patient has only a few remaining teeth in the lower jaw. Upper jaw is edentulous. Pupils are midsize and reactive to light. Tracheostomy in place with clean insertion site. Chest examination; diminished but clear breath sounds bilaterally. S1-S2 audible, no murmurs. Regular rhythm. Abdomen examination; soft, G-tube in place. Bowel sounds audible. Abdomen is scaphoid. No organomegaly. Nontender. Extremity examination; no peripheral edema. PHARMACY SALESPERSON examination; patient is stable paraplegia. Results Result Diagram: 04/18/16 1115 04/18/16 1115 Medications Medications Current Medications Ondansetron HCl (Zofran Inj) 4 mg Q6H PRN IV NAUSEA AND/OR VOMITING; Start at 22:30 Acetaminophen (Tylenol Tab) 650 mg Q6H PRN PO PAIN LEVEL 1-3 OR FEVER; Start at 22:30 Morphine Sulfate (morphine) 2 mg Q4H PRN IV PAIN LEVEL 7-10; Start 04/11/16 at 22:30 Famotidine (Pepcid Iv) 20 mg Q12 IV Last administered on 04/19/16 10:15; Admin Dose 20 MG; Start 04/12/16 at 09:00 Enoxaparin Sodium (Lovenox) 30 mg DAILY SC Last administered on 04/19/16 10:18 ; Admin Dose 30 MG; Start 04/12/16 at 09:00 Ascorbic Acid (Vitamin C) 500 mg DAILY GTB Last administered on 04/19/16 10:16 ; Admin Dose 500 MG; Start 04/12/16 at 09:00 Bisacodyl (Dulcolax) 10 mg DAILY PRN PO CONSTIPATION; Start 04/11/16 at 22:30 Chlorhexidine Gluconate (Peridex) 15 ml BID MM Last administered on 04/19/16 10:16; Admin Dose 15 ML; Start 04/12/16 at 09:00 Ferrous Sulfate (Feosol Liquid Cup) 300 mg BID GTB Last administered on 10:15; Admin Dose 300 MG; Start 04/12/16 at 09:00 Acetaminophen/ Hydrocodone Bitart ([place] (5/325)) 1 tab Q4 PRN GTB PAIN LEVEL 6 -10; Start 04/11/16 at 22:30 Lactulose (Enulose) 20 gm DAILY GTB Last administered on 04/19/16 10:15; Admin Dose 20 GM; Start 04/12/16 at 09:00 Lorazepam (Ativan) 1 mg Q6 GTB Last administered on 04/19/16 12:51; Admin Dose 1 MG; Start 04/12/16 at 00:00 Quetiapine Fumarate (Seroquel) 25 mg BID@ GTB Last administered on 10:21; Admin Dose 25 MG; Start 04/12/16 at 09:00 Quetiapine Fumarate (Seroquel) 200 mg HS GTB Last administered on 04/18/16 20: 07; Admin Dose 200 MG; Start 04/12/16 at 21:00 Senna (Senokot) 1 tab QHS GTB Last administered on 04/18/16 20:07; Admin Dose 1 TAB; Start 04/12/16 at 21:00 Sodium Biphosphate/ Sodium Phosphate (Fleet Enema Pediatric) 66.6 ml DAILY PRN [place] CONSTIPATION; Start 04/11/16 at 22:30 Thiamine HCl (Vitamin B1) 100 mg DAILY GTB Last administered on 04/19/16 10:15 ; Admin Dose 100 MG; Start 04/12/16 at 09:00 Calcium Carbonate (Tums) 500 mg DAILY GTB Last administered on 04/19/16 10:15 ; Admin Dose 500 MG; Start 04/12/16 at 09:00 Multivitamins/ Minerals (Theragran-M) 1 tab DAILY PO Last administered on 10:15; Admin Dose 1 TAB; Start 04/12/16 at 09:00 Metoprolol Tartrate (Lopressor) 12.5 mg BID PO Last administered on 04/19/16 10:16; Admin Dose 12.5 MG; Start 04/12/16 at 12:30 Hydralazine HCl 10 mg 10 mg Q6H PRN IV SBP>170 Last administered on 04/19/16 04:56; Admin Dose 10 MG; Start 04/12/16 at 12:30 Ertapenem/Sodium Chloride (Invanz/NS) 100 ml @ 200 mls/hr Q24H IVPB Last administered on 04/18/16 17:36; Admin Dose 200 MLS/HR; Start 04/13/16 at 17:00 Lorazepam 1 mg 1 mg Q6H PRN IV AGITATION/ANXIETY Last administered on 05:16; Admin Dose 1 MG; Start 04/13/16 at 19:00 Dextrose/Sodium Chloride (D5-NS) 1,000 ml @ 75 mls/hr [id number] IV Last administered on 04/18/16 23:34; Admin Dose 75 MLS/HR; Start 04/17/16 at 11:30 KATHERYN LAWTON Apr 19, 2016 12:57
--- NOTE | 2016-04-19 13:45 | CONS ---
Date/Time of Note Date/Time of Note DATE: 04/19/16 TIME: 13:44 Assessment/Plan Assessment/Plan Chief Complaint/Hosp Course SUBJECTIVE: No acute events overnight. The patient is awake, confused, lying comfortably in bed. No fevers. MICROBIOLOGY: Blood and urine cultures on admission grew E. coli ESBL. Repeat blood cultures negative. ANTIMICROBIALS: Vanco, Invanz. INDWELLINGS: Trach, PEG, Rae. PHYSICAL EXAMINATION: GENERAL: Chronically ill-appearing, elderly man who is lying comfortably in bed. HEENT: Head atraumatic, normocephalic. Sclerae anicteric. Buccal mucosa dry. NECK: Supple. Tracheostomy present. CHEST: Rise symmetrical. Breath sounds diminished to bases with scattered crackles. HEART: S1, S2. ABDOMEN: Soft. Bowel sounds present. EXTREMITIES: No cyanosis. ASSESSMENT: 1. Sepsis with Escherichia coli extended-spectrum beta-lactamase bacteremia secondary to #2. 2. Escherichia coli extended-spectrum beta-lactamase urinary tract infection. 3. Healthcare-associated pneumonia. 4. Chronic respiratory failure. 5. History of schizoaffective disorder. 6. Dementia. 7. Benign prostatic hypertrophy. PLAN: The patient remains stable. Continue abx. Anticipate treating with Invanz for 7 more days for bacteremia DW staff Problems: Consultation Date/Type/Reason Admit Date/Time Apr 11, 2016 at 22:13 Initial Consult Date 04/12/16 Type of Consultation: id Exam/Review of Systems Vital Signs Vitals Vital Signs Date Time Temp Pulse Resp B/P Pulse Ox O2 Delivery O2 Flow Rate FiO2 04/19/16 12:00 97.8 18 152/85 99 Trach Collar 04/19/16 11:33 8.0 35 04/19/16 10:00 70 Intake and Output 04/18/16 04/18/16 04/19/16 15:00 23:00 07:00 Intake Total 1505 ml 1230 ml Balance 1505 ml 1230 ml Results Result Diagram: 04/18/16 1115 04/18/16 1115 Medications Medications Current Medications Ondansetron HCl (Zofran Inj) 4 mg Q6H PRN IV NAUSEA AND/OR VOMITING; Start at 22:30 Acetaminophen (Tylenol Tab) 650 mg Q6H PRN PO PAIN LEVEL 1-3 OR FEVER; Start at 22:30 Morphine Sulfate (morphine) 2 mg Q4H PRN IV PAIN LEVEL 7-10; Start 04/11/16 at 22:30 Famotidine (Pepcid Iv) 20 mg Q12 IV Last administered on 04/19/16 10:15; Admin Dose 20 MG; Start 04/12/16 at 09:00 Enoxaparin Sodium (Lovenox) 30 mg DAILY SC Last administered on 04/19/16 10:18 ; Admin Dose 30 MG; Start 04/12/16 at 09:00 Ascorbic Acid (Vitamin C) 500 mg DAILY GTB Last administered on 04/19/16 10:16 ; Admin Dose 500 MG; Start 04/12/16 at 09:00 Bisacodyl (Dulcolax) 10 mg DAILY PRN PO CONSTIPATION; Start 04/11/16 at 22:30 Chlorhexidine Gluconate (Peridex) 15 ml BID MM Last administered on 04/19/16 10:16; Admin Dose 15 ML; Start 04/12/16 at 09:00 Ferrous Sulfate (Feosol Liquid Cup) 300 mg BID GTB Last administered on 10:15; Admin Dose 300 MG; Start 04/12/16 at 09:00 Acetaminophen/ Hydrocodone Bitart ([place] (5/325)) 1 tab Q4 PRN GTB PAIN LEVEL 6 -10; Start 04/11/16 at 22:30 Lactulose (Enulose) 20 gm DAILY GTB Last administered on 04/19/16 10:15; Admin Dose 20 GM; Start 04/12/16 at 09:00 Lorazepam (Ativan) 1 mg Q6 GTB Last administered on 04/19/16 12:51; Admin Dose 1 MG; Start 04/12/16 at 00:00 Quetiapine Fumarate (Seroquel) 25 mg BID@ GTB Last administered on 10:21; Admin Dose 25 MG; Start 04/12/16 at 09:00 Quetiapine Fumarate (Seroquel) 200 mg HS GTB Last administered on 04/18/16 20: 07; Admin Dose 200 MG; Start 04/12/16 at 21:00 Senna (Senokot) 1 tab QHS GTB Last administered on 04/18/16 20:07; Admin Dose 1 TAB; Start 04/12/16 at 21:00 Sodium Biphosphate/ Sodium Phosphate (Fleet Enema Pediatric) 66.6 ml DAILY PRN [place] CONSTIPATION; Start 04/11/16 at 22:30 Thiamine HCl (Vitamin B1) 100 mg DAILY GTB Last administered on 04/19/16 10:15 ; Admin Dose 100 MG; Start 04/12/16 at 09:00 Calcium Carbonate (Tums) 500 mg DAILY GTB Last administered on 04/19/16 10:15 ; Admin Dose 500 MG; Start 04/12/16 at 09:00 Multivitamins/ Minerals (Theragran-M) 1 tab DAILY PO Last administered on 10:15; Admin Dose 1 TAB; Start 04/12/16 at 09:00 Metoprolol Tartrate (Lopressor) 12.5 mg BID PO Last administered on 04/19/16 10:16; Admin Dose 12.5 MG; Start 04/12/16 at 12:30 Hydralazine HCl 10 mg 10 mg Q6H PRN IV SBP>170 Last administered on 04/19/16 04:56; Admin Dose 10 MG; Start 04/12/16 at 12:30 Ertapenem/Sodium Chloride (Invanz/NS) 100 ml @ 200 mls/hr Q24H IVPB Last administered on 04/18/16 17:36; Admin Dose 200 MLS/HR; Start 04/13/16 at 17:00 Lorazepam 1 mg 1 mg Q6H PRN IV AGITATION/ANXIETY Last administered on 05:16; Admin Dose 1 MG; Start 04/13/16 at 19:00 Dextrose/Sodium Chloride (D5-NS) 1,000 ml @ 75 mls/hr [id number] IV Last administered on 04/18/16 23:34; Admin Dose 75 MLS/HR; Start 04/17/16 at 11:30 MARK LONG NP Apr 19, 2016 13:45
[2016-04-19] MEDS: DEXTROSE 5%-0.9% NACL 1,000 ML IV SCH (14:40)
[2016-04-19] MEDS: ERTAPENEM SODIUM 1 GM in SOD CHLORIDE 0.9% 100 ML IVPB SCH (18:23)
[2016-04-19] MEDS: FAMOTIDINE 20 MG TAB GTB SCH (22:43)
[2016-04-19] MEDS: SENNA TAB GTB SCH (22:43)
[2016-04-19] MEDS: QUETIAPINE 100 MG TAB GTB SCH (22:43)
[2016-04-20] VITALS (14 sets, daily range): BP systolic 108–202; BP diastolic 67–112; PULSE 61–89; RESP 16–20
[2016-04-20] MEDS: LORAZEPAM 1 MG TAB GTB SCH ×5 (00:17→23:49)
[2016-04-20] MEDS: ALBUTEROL/IPRATROPIUM (NEB) 3 ML AMP INH SCH ×4 (02:02→20:40)
[2016-04-20 05:47] LABS: ADD SCAN DIFF NO
[2016-04-20 05:53] LABS: BASOPHILS % 0.2 % (0.0-2.0); EOSINOPHILS # 0.1 10^3/ul (0.0-0.5); HEMATOCRIT 29.5 % (42.0-52.0); HEMOGLOBIN 8.8 g/dl (14.0-18.0); LYMPHOCYTES # 1.1 10^3/ul (0.8-2.9); LYMPHOCYTES % 27.5 % (15.0-51.0); MEAN CORPUSCULAR HEMOGLOBIN 26.3 pg (29.0-33.0); MEAN CORPUSCULAR HGB CONC 29.8 g/dl (32.0-37.0); MEAN CORPUSCULAR VOLUME 88.3 fl (82.0-101.0); MEAN PLATELET VOLUME 10.4 fl (7.4-10.4); MONOCYTE # 0.5 10^3/ul (0.3-0.9); MONOCYTES % 11.4 % (0.0-11.0); NEUTROPHIL # 2.4 10^3/ul (1.6-7.5); NEUTROPHILS % 58.7 % (39.0-77.0); PLATELET COUNT 173 10^3/UL (140-415); RED BLOOD COUNT 3.34 10^6/ul (4.70-6.10); RED CELL DISTRIBUTION WIDTH 18.1 % (11.5-14.5)
[2016-04-20 06:13] LABS: POTASSIUM 4.3 mmol/L (3.5-5.1)
[2016-04-20 06:16] LABS: CREATININE 0.48 mg/dl (0.61-1.24)
[2016-04-20 06:17] LABS: CALCIUM 8.3 mg/dl (8.4-10.2)
[2016-04-20] MEDS: DEXTROSE 5%-0.9% NACL 1,000 ML IV SCH ×2 (06:24→19:30)
[2016-04-20] MEDS: LACTULOSE 30ML CUP GTB SCH (09:37)
[2016-04-20] MEDS: CHLORHEXIDINE GLUCONATE 15 ML UD CUP MM SCH ×2 (09:37→20:52)
[2016-04-20] MEDS: MULTIVITAMINS/MINERALS TAB PO SCH (09:37)
[2016-04-20] MEDS: FAMOTIDINE 20 MG TAB GTB SCH ×2 (09:37→20:52)
[2016-04-20] MEDS: ASCORBIC ACID 500 MG TAB GTB SCH (09:37)
[2016-04-20] MEDS: FERROUS SULFATE 60 MG/ML 5ML CUP GTB SCH ×2 (09:37→20:52)
[2016-04-20] MEDS: THIAMINE 100 MG TAB GTB SCH (09:37)
[2016-04-20] MEDS: CALCIUM CARBONATE 500 MG CHEW TAB GTB SCH (09:37)
[2016-04-20] MEDS: METOPROLOL 25 MG TAB PO SCH ×2 (09:38→20:53)
[2016-04-20] MEDS: ENOXAPARIN 30 MG/0.3 ML SYG SC SCH (09:39)
[2016-04-20] MEDS: QUETIAPINE 25 MG TAB GTB SCH ×2 (10:59→17:00)
--- NOTE | 2016-04-20 12:48 | CONS ---
Date/Time of Note Date/Time of Note DATE: 04/20/16 TIME: 12:48 Assessment/Plan Assessment/Plan Chief Complaint/Hosp Course SUBJECTIVE: No acute events overnight. The patient is awake, confused, lying comfortably in bed. No fevers. MICROBIOLOGY: Blood and urine cultures on admission grew E. coli ESBL. Repeat blood cultures negative. ANTIMICROBIALS: Vanco, Invanz. INDWELLINGS: Trach, PEG, Rae. PHYSICAL EXAMINATION: GENERAL: Chronically ill-appearing, elderly man who is lying comfortably in bed. HEENT: Head atraumatic, normocephalic. Sclerae anicteric. Buccal mucosa dry. NECK: Supple. Tracheostomy present. CHEST: Rise symmetrical. Breath sounds diminished to bases with scattered crackles. HEART: S1, S2. ABDOMEN: Soft. Bowel sounds present. EXTREMITIES: No cyanosis. ASSESSMENT: 1. Sepsis with Escherichia coli extended-spectrum beta-lactamase bacteremia secondary to #2. 2. Escherichia coli extended-spectrum beta-lactamase urinary tract infection. 3. Healthcare-associated pneumonia. 4. Chronic respiratory failure. 5. History of schizoaffective disorder. 6. Dementia. 7. Benign prostatic hypertrophy. PLAN: The patient remains stable. Continue abx. Anticipate treating with Invanz for 6 more days for bacteremia DW staff Problems: Consultation Date/Type/Reason Admit Date/Time Apr 11, 2016 at 22:13 Initial Consult Date 04/12/16 Type of Consultation: id Exam/Review of Systems Vital Signs Vitals Vital Signs Date Time Temp Pulse Resp B/P Pulse Ox O2 Delivery O2 Flow Rate FiO2 04/20/16 10:00 97.9 61 18 145/75 99 Trach Collar 04/20/16 08:01 8.0 35 Intake and Output 04/19/16 04/19/16 04/20/16 15:00 23:00 07:00 Intake Total 1060 ml 1000 ml Balance 1060 ml 1000 ml Results Result Diagram: 04/20/16 0520 04/20/16 0520 Results 24 hrs Laboratory Tests Test 04/20/16 05:20 Anion Gap 10 Basophils # 0.0 Basophils % 0.2 Blood Urea Nitrogen 10 Calcium Level 8.3 L Carbon Dioxide Level 30 Chloride Level 102 Creatinine 0.48 L Eosinophils # 0.1 Eosinophils % 2.0 Glucose Level 87 Hematocrit 29.5 L Hemoglobin 8.8 L Lymphocytes # 1.1 Lymphocytes % 27.5 Mean Corpuscular Hemoglobin 26.3 L Mean Corpuscular Hemoglobin Concent 29.8 L Mean Corpuscular Volume 88.3 Mean Platelet Volume 10.4 Monocytes # 0.5 Monocytes % 11.4 H Neutrophils # 2.4 Neutrophils % 58.7 Nucleated Red Blood Cells # 0.0 Nucleated Red Blood Cells % 0.0 Platelet Count 173 Potassium Level 4.3 Red Blood Count 3.34 L Red Cell Distribution Width 18.1 H Sodium Level 138 White Blood Count 4.0 L Medications Medications Current Medications Ondansetron HCl (Zofran Inj) 4 mg Q6H PRN IV NAUSEA AND/OR VOMITING; Start at 22:30 Acetaminophen (Tylenol Tab) 650 mg Q6H PRN PO PAIN LEVEL 1-3 OR FEVER; Start at 22:30 Morphine Sulfate (morphine) 2 mg Q4H PRN IV PAIN LEVEL 7-10; Start 04/11/16 at 22:30 Enoxaparin Sodium (Lovenox) 30 mg DAILY SC Last administered on 04/20/16 09:39 ; Admin Dose 30 MG; Start 04/12/16 at 09:00 Ascorbic Acid (Vitamin C) 500 mg DAILY GTB Last administered on 04/20/16 09:37 ; Admin Dose 500 MG; Start 04/12/16 at 09:00 Bisacodyl (Dulcolax) 10 mg DAILY PRN PO CONSTIPATION; Start 04/11/16 at 22:30 Chlorhexidine Gluconate (Peridex) 15 ml BID MM Last administered on 04/20/16 09:37; Admin Dose 15 ML; Start 04/12/16 at 09:00 Ferrous Sulfate (Feosol Liquid Cup) 300 mg BID GTB Last administered on 09:37; Admin Dose 300 MG; Start 04/12/16 at 09:00 Acetaminophen/ Hydrocodone Bitart ([place] (5/325)) 1 tab Q4 PRN GTB PAIN LEVEL 6 -10; Start 04/11/16 at 22:30 Lactulose (Enulose) 20 gm DAILY GTB Last administered on 04/20/16 09:37; Admin Dose 20 GM; Start 04/12/16 at 09:00 Lorazepam (Ativan) 1 mg Q6 GTB Last administered on 04/20/16 12:11; Admin Dose 1 MG; Start 04/12/16 at 00:00 Quetiapine Fumarate (Seroquel) 25 mg BID@ GTB Last administered on 10:59; Admin Dose 25 MG; Start 04/12/16 at 09:00 Quetiapine Fumarate (Seroquel) 200 mg HS GTB Last administered on 04/19/16 22: 43; Admin Dose 200 MG; Start 04/12/16 at 21:00 Senna (Senokot) 1 tab QHS GTB Last administered on 04/19/16 22:43; Admin Dose 1 TAB; Start 04/12/16 at 21:00 Sodium Biphosphate/ Sodium Phosphate (Fleet Enema Pediatric) 66.6 ml DAILY PRN [place] CONSTIPATION; Start 04/11/16 at 22:30 Thiamine HCl (Vitamin B1) 100 mg DAILY GTB Last administered on 04/20/16 09:37 ; Admin Dose 100 MG; Start 04/12/16 at 09:00 Calcium Carbonate (Tums) 500 mg DAILY GTB Last administered on 04/20/16 09:37 ; Admin Dose 500 MG; Start 04/12/16 at 09:00 Multivitamins/ Minerals (Theragran-M) 1 tab DAILY PO Last administered on 09:37; Admin Dose 1 TAB; Start 04/12/16 at 09:00 Metoprolol Tartrate (Lopressor) 12.5 mg BID PO Last administered on 04/20/16 09:38; Admin Dose 12.5 MG; Start 04/12/16 at 12:30 Hydralazine HCl 10 mg 10 mg Q6H PRN IV SBP>170 Last administered on 04/19/16 22:46; Admin Dose 10 MG; Start 04/12/16 at 12:30 Ertapenem/Sodium Chloride (Invanz/NS) 100 ml @ 200 mls/hr Q24H IVPB Last administered on 04/19/16 18:23; Admin Dose 200 MLS/HR; Start 04/13/16 at 17:00 Lorazepam 1 mg 1 mg Q6H PRN IV AGITATION/ANXIETY Last administered on 05:16; Admin Dose 1 MG; Start 04/13/16 at 19:00 Dextrose/Sodium Chloride (D5-NS) 1,000 ml @ 75 mls/hr [id number] IV Last administered on 04/20/16 06:24; Admin Dose 75 MLS/HR; Start 04/17/16 at 11:30 Famotidine (Pepcid) 20 mg Q12 GTB Last administered on 04/20/16 09:37; Admin Dose 20 MG; Start 04/19/16 at 21:00 MARK LONG NP Apr 20, 2016 12:48
--- NOTE | 2016-04-20 14:17 | CONS ---
Date/Time of Note Date/Time of Note DATE: 04/20/16 TIME: 14:15 Assessment/Plan Assessment/Plan Additional Assessment/Plan Assessment recommendations; next 1. Patient admitted with left-sided pneumonia with marked clinical and radiological improvement. 2. Gram-negative bacteremia. Patient currently on appropriate antibiotic regimen. 3. History of paraplegia. 4. History of alcoholic encephalopathy. Continue current treatment for now. Consultation Date/Type/Reason Admit Date/Time Apr 11, 2016 at 22:13 Initial Consult Date 04/12/16 Type of Consultation: Pulmonary 24 HR Interval Summary Free Text/Dictation Patient condition remains stable. Exhibiting episodes of confusion due to alcoholic encephalopathy. Has remained hemodynamically stable. General examination; elderly male, currently in no distress. On tracheal T- piece. Exam/Review of Systems Vital Signs Vitals Vital Signs Date Time Temp Pulse Resp B/P Pulse Ox O2 Delivery O2 Flow Rate FiO2 04/20/16 13:48 69 20 100 Aerosol 8.0 35 T Tube 04/20/16 10:00 97.9 145/75 Intake and Output 04/19/16 04/19/16 04/20/16 15:00 23:00 07:00 Intake Total 1060 ml 1000 ml Balance 1060 ml 1000 ml Exam H EENT examination; supple neck, tracheostomy in place. Insertion site is clean. No neck masses. No thyromegaly. Patient upper jaw is edentulous with a few remaining teeth in the lower jaw. Pupils are midsize and reactive to light bilaterally. Chest examination; diminished but clear breath sounds bilaterally. S1-S2 audible, no murmurs. Regular rhythm. Abdomen examination; scaphoid, G-tube in place. Nontender. No organomegaly. Extremity examination; no edema. IDEA WORKER examination patient still remains confused off and on has stable paraplegia. Results Result Diagram: 04/20/16 0520 04/20/16 0520 Results 24 hrs Laboratory Tests Test 04/20/16 05:20 Anion Gap 10 Basophils # 0.0 Basophils % 0.2 Blood Urea Nitrogen 10 Calcium Level 8.3 L Carbon Dioxide Level 30 Chloride Level 102 Creatinine 0.48 L Eosinophils # 0.1 Eosinophils % 2.0 Glucose Level 87 Hematocrit 29.5 L Hemoglobin 8.8 L Lymphocytes # 1.1 Lymphocytes % 27.5 Mean Corpuscular Hemoglobin 26.3 L Mean Corpuscular Hemoglobin Concent 29.8 L Mean Corpuscular Volume 88.3 Mean Platelet Volume 10.4 Monocytes # 0.5 Monocytes % 11.4 H Neutrophils # 2.4 Neutrophils % 58.7 Nucleated Red Blood Cells # 0.0 Nucleated Red Blood Cells % 0.0 Platelet Count 173 Potassium Level 4.3 Red Blood Count 3.34 L Red Cell Distribution Width 18.1 H Sodium Level 138 White Blood Count 4.0 L Medications Medications Current Medications Ondansetron HCl (Zofran Inj) 4 mg Q6H PRN IV NAUSEA AND/OR VOMITING; Start at 22:30 Acetaminophen (Tylenol Tab) 650 mg Q6H PRN PO PAIN LEVEL 1-3 OR FEVER; Start at 22:30 Morphine Sulfate (morphine) 2 mg Q4H PRN IV PAIN LEVEL 7-10; Start 04/11/16 at 22:30 Enoxaparin Sodium (Lovenox) 30 mg DAILY SC Last administered on 04/20/16 09:39 ; Admin Dose 30 MG; Start 04/12/16 at 09:00 Ascorbic Acid (Vitamin C) 500 mg DAILY GTB Last administered on 04/20/16 09:37 ; Admin Dose 500 MG; Start 04/12/16 at 09:00 Bisacodyl (Dulcolax) 10 mg DAILY PRN PO CONSTIPATION; Start 04/11/16 at 22:30 Chlorhexidine Gluconate (Peridex) 15 ml BID MM Last administered on 04/20/16 09:37; Admin Dose 15 ML; Start 04/12/16 at 09:00 Ferrous Sulfate (Feosol Liquid Cup) 300 mg BID GTB Last administered on 09:37; Admin Dose 300 MG; Start 04/12/16 at 09:00 Acetaminophen/ Hydrocodone Bitart ([place] (5/325)) 1 tab Q4 PRN GTB PAIN LEVEL 6 -10; Start 04/11/16 at 22:30 Lactulose (Enulose) 20 gm DAILY GTB Last administered on 04/20/16 09:37; Admin Dose 20 GM; Start 04/12/16 at 09:00 Lorazepam (Ativan) 1 mg Q6 GTB Last administered on 04/20/16 12:11; Admin Dose 1 MG; Start 04/12/16 at 00:00 Quetiapine Fumarate (Seroquel) 25 mg BID@ GTB Last administered on 10:59; Admin Dose 25 MG; Start 04/12/16 at 09:00 Quetiapine Fumarate (Seroquel) 200 mg HS GTB Last administered on 04/19/16 22: 43; Admin Dose 200 MG; Start 04/12/16 at 21:00 Senna (Senokot) 1 tab QHS GTB Last administered on 04/19/16 22:43; Admin Dose 1 TAB; Start 04/12/16 at 21:00 Sodium Biphosphate/ Sodium Phosphate (Fleet Enema Pediatric) 66.6 ml DAILY PRN [place] CONSTIPATION; Start 04/11/16 at 22:30 Thiamine HCl (Vitamin B1) 100 mg DAILY GTB Last administered on 04/20/16 09:37 ; Admin Dose 100 MG; Start 04/12/16 at 09:00 Calcium Carbonate (Tums) 500 mg DAILY GTB Last administered on 04/20/16 09:37 ; Admin Dose 500 MG; Start 04/12/16 at 09:00 Multivitamins/ Minerals (Theragran-M) 1 tab DAILY PO Last administered on 09:37; Admin Dose 1 TAB; Start 04/12/16 at 09:00 Metoprolol Tartrate (Lopressor) 12.5 mg BID PO Last administered on 04/20/16 09:38; Admin Dose 12.5 MG; Start 04/12/16 at 12:30 Hydralazine HCl 10 mg 10 mg Q6H PRN IV SBP>170 Last administered on 04/19/16 22:46; Admin Dose 10 MG; Start 04/12/16 at 12:30 Ertapenem/Sodium Chloride (Invanz/NS) 100 ml @ 200 mls/hr Q24H IVPB Last administered on 04/19/16 18:23; Admin Dose 200 MLS/HR; Start 04/13/16 at 17:00 Lorazepam 1 mg 1 mg Q6H PRN IV AGITATION/ANXIETY Last administered on 05:16; Admin Dose 1 MG; Start 04/13/16 at 19:00 Dextrose/Sodium Chloride (D5-NS) 1,000 ml @ 75 mls/hr [id number] IV Last administered on 04/20/16 06:24; Admin Dose 75 MLS/HR; Start 04/17/16 at 11:30 Famotidine (Pepcid) 20 mg Q12 GTB Last administered on 04/20/16 09:37; Admin Dose 20 MG; Start 04/19/16 at 21:00 KATHERYN LAWTON Apr 20, 2016 14:17
[2016-04-20] MEDS: ERTAPENEM SODIUM 1 GM in SOD CHLORIDE 0.9% 100 ML IVPB SCH (17:00)
--- NOTE | 2016-04-20 19:04 | PN ---
Date/Time of Note Date/Time of Note DATE: 04/20/16 TIME: 19:02 Assessment/Plan VTE Prophylaxis VTE Prophylaxis Intervention: SCD's Lines/Catheters IV [facility]ter Type (from [facility]): Peripheral IV Urinary Cath still in place: No Assessment/Plan Chief Complaint/Hosp Course ASSESSMENT AND PLAN: - Acute hypoxic respiratory failure. Dr. Anderson is following in pulmonology consultation. Continue ventilatory support and bronchodilators. - Possible healthcare-acquired left lower lung pneumonia versus aspiration. Continue antibiotics per ID. Dr. Rojas is following an infection disease consultation. - E. coli ESBL urinary tract infection. Continue Ertapenem. - Sepsis with Ecoli ESBL bacteremia 2 UTI. - Normocytic anemia. - Dysphagia, with G-tube. - History of chronic respiratory failure with tracheostomy. - Benign prostatic hypertrophy. - Schizoaffective disorder. Continue Seroquel and Ativan as needed for agitation. Continue Lovenox for deep venous thrombosis prophylaxis and Pepcid for peptic ulcer disease prophylaxis. Further recommendations based on clinical course. Plan of care discussed with Dr. Colunga. Problems: Subjective 24 Hr Interval Summary Free Text/Dictation Patient remains afebrile, comfortable on T-tube. Patient discontinue IV, will start PICC line if unable to reinsert IV. Exam/Review of Systems Vital Signs Vitals Vital Signs Date Time Temp Pulse Resp B/P Pulse Ox O2 Delivery O2 Flow Rate FiO2 04/20/16 16:44 76 22 98 Aerosol 5.0 28 T Tube 04/20/16 16:00 98.0 155/70 Intake and Output 04/19/16 04/19/16 04/20/16 15:00 23:00 07:00 Intake Total 1060 ml 1000 ml Balance 1060 ml 1000 ml Exam GENERAL: A well-developed, cachectic gentleman, currently is awake, alert, follows immediate commands, otherwise confused. HEENT: Head is atraumatic, normocephalic. LYDIA. NECK: Supple, with tracheostomy at the base of the neck, with a moderate amount of secretions, no bleeding. LUNGS: Diminished at the bases. Patient has scattered severe rhonchi bilaterally. CARDIOVASCULAR: Normal S1, S2. No murmurs, gallops, clicks, rubs noted. ABDOMEN: Flat, soft, nondistended, nontender. Bowel sounds present. Patient has a G-tube with intact stoma. EXTREMITIES: Contractured. There is no edema, clubbing, cyanosis. Pulses equal bilaterally, 2+. SKIN: There is no rash, petechiae noted. NEUROLOGIC: Patient is awake, alert. Results Result Diagram: 04/20/16 0520 04/20/16 0520 Results 24 hrs Laboratory Tests Test 04/20/16 05:20 Anion Gap 10 Basophils # 0.0 Basophils % 0.2 Blood Urea Nitrogen 10 Calcium Level 8.3 L Carbon Dioxide Level 30 Chloride Level 102 Creatinine 0.48 L Eosinophils # 0.1 Eosinophils % 2.0 Glucose Level 87 Hematocrit 29.5 L Hemoglobin 8.8 L Lymphocytes # 1.1 Lymphocytes % 27.5 Mean Corpuscular Hemoglobin 26.3 L Mean Corpuscular Hemoglobin Concent 29.8 L Mean Corpuscular Volume 88.3 Mean Platelet Volume 10.4 Monocytes # 0.5 Monocytes % 11.4 H Neutrophils # 2.4 Neutrophils % 58.7 Nucleated Red Blood Cells # 0.0 Nucleated Red Blood Cells % 0.0 Platelet Count 173 Potassium Level 4.3 Red Blood Count 3.34 L Red Cell Distribution Width 18.1 H Sodium Level 138 White Blood Count 4.0 L Medications Medications Current Medications Ondansetron HCl (Zofran Inj) 4 mg Q6H PRN IV NAUSEA AND/OR VOMITING; Start at 22:30 Acetaminophen (Tylenol Tab) 650 mg Q6H PRN PO PAIN LEVEL 1-3 OR FEVER; Start at 22:30 Morphine Sulfate (morphine) 2 mg Q4H PRN IV PAIN LEVEL 7-10; Start 04/11/16 at 22:30 Enoxaparin Sodium (Lovenox) 30 mg DAILY SC Last administered on 04/20/16 09:39 ; Admin Dose 30 MG; Start 04/12/16 at 09:00 Ascorbic Acid (Vitamin C) 500 mg DAILY GTB Last administered on 04/20/16 09:37 ; Admin Dose 500 MG; Start 04/12/16 at 09:00 Bisacodyl (Dulcolax) 10 mg DAILY PRN PO CONSTIPATION; Start 04/11/16 at 22:30 Chlorhexidine Gluconate (Peridex) 15 ml BID MM Last administered on 04/20/16 09:37; Admin Dose 15 ML; Start 04/12/16 at 09:00 Ferrous Sulfate (Feosol Liquid Cup) 300 mg BID GTB Last administered on 09:37; Admin Dose 300 MG; Start 04/12/16 at 09:00 Acetaminophen/ Hydrocodone Bitart ([place] (5/325)) 1 tab Q4 PRN GTB PAIN LEVEL 6 -10; Start 04/11/16 at 22:30 Lactulose (Enulose) 20 gm DAILY GTB Last administered on 04/20/16 09:37; Admin Dose 20 GM; Start 04/12/16 at 09:00 Lorazepam (Ativan) 1 mg Q6 GTB Last administered on 04/20/16 12:11; Admin Dose 1 MG; Start 04/12/16 at 00:00 Quetiapine Fumarate (Seroquel) 25 mg BID@ GTB Last administered on 10:59; Admin Dose 25 MG; Start 04/12/16 at 09:00 Quetiapine Fumarate (Seroquel) 200 mg HS GTB Last administered on 04/19/16 22: 43; Admin Dose 200 MG; Start 04/12/16 at 21:00 Senna (Senokot) 1 tab QHS GTB Last administered on 04/19/16 22:43; Admin Dose 1 TAB; Start 04/12/16 at 21:00 Sodium Biphosphate/ Sodium Phosphate (Fleet Enema Pediatric) 66.6 ml DAILY PRN [place] CONSTIPATION; Start 04/11/16 at 22:30 Thiamine HCl (Vitamin B1) 100 mg DAILY GTB Last administered on 04/20/16 09:37 ; Admin Dose 100 MG; Start 04/12/16 at 09:00 Calcium Carbonate (Tums) 500 mg DAILY GTB Last administered on 04/20/16 09:37 ; Admin Dose 500 MG; Start 04/12/16 at 09:00 Multivitamins/ Minerals (Theragran-M) 1 tab DAILY PO Last administered on 09:37; Admin Dose 1 TAB; Start 04/12/16 at 09:00 Metoprolol Tartrate (Lopressor) 12.5 mg BID PO Last administered on 04/20/16 09:38; Admin Dose 12.5 MG; Start 04/12/16 at 12:30 Hydralazine HCl 10 mg 10 mg Q6H PRN IV SBP>170 Last administered on 04/19/16 22:46; Admin Dose 10 MG; Start 04/12/16 at 12:30 Ertapenem/Sodium Chloride (Invanz/NS) 100 ml @ 200 mls/hr Q24H IVPB Last administered on 04/19/16 18:23; Admin Dose 200 MLS/HR; Start 04/13/16 at 17:00 Lorazepam 1 mg 1 mg Q6H PRN IV AGITATION/ANXIETY Last administered on 05:16; Admin Dose 1 MG; Start 04/13/16 at 19:00 Dextrose/Sodium Chloride (D5-NS) 1,000 ml @ 75 mls/hr [id number] IV Last administered on 04/20/16 06:24; Admin Dose 75 MLS/HR; Start 04/17/16 at 11:30 Famotidine (Pepcid) 20 mg Q12 GTB Last administered on 04/20/16 09:37; Admin Dose 20 MG; Start 04/19/16 at 21:00 SHELBY BUNCH Apr 20, 2016 19:03
[2016-04-20] MEDS: QUETIAPINE 100 MG TAB GTB SCH (20:52)
[2016-04-20] MEDS: SENNA TAB GTB SCH (20:52)
[2016-04-21] VITALS (14 sets, daily range): BP systolic 120–211; BP diastolic 66–120; PULSE 80–145; RESP 16–21
[2016-04-21] MEDS: ALBUTEROL/IPRATROPIUM (NEB) 3 ML AMP INH SCH ×4 (02:36→19:43)
[2016-04-21] MEDS ORDERED: hydrALAzine 20 MG INJ IM ONE (04:00)
[2016-04-21] MEDS: LORAZEPAM 1 MG TAB GTB SCH ×4 (06:37→23:24)
[2016-04-21] MEDS: ENOXAPARIN 30 MG/0.3 ML SYG SC SCH (09:00)
[2016-04-21] MEDS: CHLORHEXIDINE GLUCONATE 15 ML UD CUP MM SCH ×2 (09:12→20:25)
[2016-04-21] MEDS: ASCORBIC ACID 500 MG TAB GTB SCH (09:12)
[2016-04-21] MEDS: FERROUS SULFATE 60 MG/ML 5ML CUP GTB SCH ×2 (09:12→20:23)
[2016-04-21] MEDS: LACTULOSE 30ML CUP GTB SCH (09:12)
[2016-04-21] MEDS: METOPROLOL 25 MG TAB PO SCH ×2 (09:12→20:25)
[2016-04-21] MEDS: CALCIUM CARBONATE 500 MG CHEW TAB GTB SCH (09:12)
[2016-04-21] MEDS: THIAMINE 100 MG TAB GTB SCH (09:12)
[2016-04-21] MEDS: FAMOTIDINE 20 MG TAB GTB SCH ×2 (09:12→20:24)
[2016-04-21] MEDS: MULTIVITAMINS/MINERALS TAB PO SCH (09:12)
[2016-04-21] MEDS: QUETIAPINE 25 MG TAB GTB SCH ×2 (09:15→16:25)
--- NOTE | 2016-04-21 11:27 | PN ---
DATE: 04/21/2016 SUBJECTIVE: Mr. Ford remains stable, states his breathing has improved, continues to remain in res traints because of significant agitation and risk to himself. PHYSICAL EXAMINATION: VITAL SIGNS: Temperature 98, pulse is 88, blood pressure 146/80, O2 saturation 98% on cool aerosol. NECK: Trach site clean and intact. CARDIAC: S1, S2, no added sounds or murmurs. CHEST: Diminished air entry bilaterally. No rales or wheezes. ABDOMEN: Soft, nontender. No guarding or rebound. EXTREMITIES: No cyanosis, clubbing or edema. NEUROLOGIC: Grossly intact. No focal deficits. LABORATORY DATA: White count ____, hemoglobin 8.8, platelets of 173. BUN 10, creatinine 0.48. IMAGING: Chest x-ray was reviewed, shows mild cardiomegaly, small pleural effusions. IMPRESSION AND PLAN: 1. Chronic respiratory failure with tracheostomy. 2. Gram-negative bacteremia. 3. Left lower lobe pneumonia. 4. History of paraplegia. 5. History of psychiatric disorder. 6. History of dysphagia. The patient will require: 1. Continued aspiration precautions. 2. Continue antibiotics. 3. Continue supplemental O2. 4. Tracheostomy care. 5. DVT and GI prophylaxis. Dictated By: MARISOL STEVENS/DAVID Conf#: [id number] DID#: [id number]
[2016-04-21] MEDS ORDERED: LIDOCAINE 1% (MDV) 20 ML INJ SC ONE (12:30)
--- NOTE | 2016-04-21 13:45 | CONS ---
Date/Time of Note Date/Time of Note DATE: 04/21/16 TIME: 13:28 Assessment/Plan Assessment/Plan Chief Complaint/Hosp Course 65 up male with acute hypoxic respiratory failure being admitted for sepsis secondary to ESBL bacteremia. Pt has a worsening normocytic anemia that is likely secondary to his underlying sepsis and antibiotic use. Need to rule out other causes including bone marrow dysfunction, hemolysis, iron deficiency anemia, Vit B12/ Folate deficiency monoclonal gammopathy or low erythropoietin level. -will f/u the following tests: iron studies, ferritin, Vit B12, Folate, Retic count, LDH, haptoglobin, SPEP, erythropoietin level -would transfuse if Hg < 8 -continue treatment of underlying sepsis with current antibiotics -further recommendations will be based on results of above tests Approximately 40 min were spent at patient's bedside and in coordination of his care Problems: Consultation Date/Type/Reason Admit Date/Time Apr 11, 2016 at 22:13 Date of Consultation: Apr 21, 2016 Type of Consultation: Hematology Reason for Consultation anemia Referring Provider: ANNETTA AGUILAR MD Hx of Present Illness 65-year-old gentleman who is a resident of a [facility]dc facility who was transferred to [facility] with low oxygen saturation. Pt has multiple medical problems , including lower extremity paralysis and contractures, gastrostomy tube, schizoaffective disorder, dementia, hypertension, BPH, and history of acute respiratory failure with tracheostomy. A Chest x-ray revealed near complete opacification of the left lung with hyperinflation of the right lung. He is currently being treated for Escherichia coli extended-spectrum beta-lactamase bacteremia, Escherichia coli extended-spectrum beta-lactamase urinary tract infection and healthcare-associated pneumonia and is currently being treated with Ertapenem. Since admission, patient Hg has been stable between 9 and 10 but in the last 2 days it has dropped to 8.8, hence the reason for this consultation. Currently patient states his breathing has improved. Constitutional: requiring IVF, requiring O2 Eyes: no complaints ENT: no complaints Respiratory: shortness of breath Cardiovascular: no complaints Gastrointestinal: no complaints Genitourinary: no complaints Musculoskeletal: no complaints Skin: no complaints Psychological: nl mood/affect Past Medical History lower extremity paralysis and contractures gastrostomy tube schizoaffective disorder dementia hypertension BPH history of acute respiratory failure with tracheostomy recent urinary tract infection Family History Significant Family History: no pertinent family hx Social History Alcohol Use: none Smoking Status: Former smoker Drug Use: none Exam/Review of Systems Vital Signs Vitals Vital Signs Date Time Temp Pulse Resp B/P Pulse Ox O2 Delivery O2 Flow Rate FiO2 04/21/16 10:00 98.2 145 20 145/80 99 Trach Collar 04/21/16 07:35 8.0 35 Intake and Output 04/20/16 04/20/16 04/21/16 15:00 23:00 07:00 Intake Total 240 ml 960 ml 240 ml Balance 240 ml 960 ml 240 ml Exam Constitutional: alert, non-verbal, oriented Psych: anxiety, other (agitated) Eyes: nl conjunctiva ENMT: nl external ears & nose, nl lips & teeth Neck: non-tender, other (trach in place), supple Respiratory: clear to auscultation, normal air movement Cardiovascular: nl pulses, regular rate and rhythm Gastrointestinal: soft Musculoskeletal: nl extremities to inspection, nl gait and stance Extremities: normal pulses Results Result Diagram: 04/20/1651904/20/16 0520 Medications Medications Current Medications Ondansetron HCl (Zofran Inj) 4 mg Q6H PRN IV NAUSEA AND/OR VOMITING; Start at 22:30 Acetaminophen (Tylenol Tab) 650 mg Q6H PRN PO PAIN LEVEL 1-3 OR FEVER; Start at 22:30 Morphine Sulfate (morphine) 2 mg Q4H PRN IV PAIN LEVEL 7-10; Start 04/11/16 at 22:30 Enoxaparin Sodium (Lovenox) 30 mg DAILY SC Last administered on 04/20/16 09:39 ; Admin Dose 30 MG; Start 04/12/16 at 09:00 Ascorbic Acid (Vitamin C) 500 mg DAILY GTB Last administered on 04/21/16 09:12 ; Admin Dose 500 MG; Start 04/12/16 at 09:00 Bisacodyl (Dulcolax) 10 mg DAILY PRN PO CONSTIPATION; Start 04/11/16 at 22:30 Chlorhexidine Gluconate (Peridex) 15 ml BID MM Last administered on 04/21/16 09 :12; Admin Dose 15 ML; Start 04/12/16 at 09:00 Ferrous Sulfate (Feosol Liquid Cup) 300 mg BID GTB Last administered on 09:12; Admin Dose 300 MG; Start 04/12/16 at 09:00 Acetaminophen/ Hydrocodone Bitart ([place] (5/325)) 1 tab Q4 PRN GTB PAIN LEVEL 6 -10; Start 04/11/16 at 22:30 Lactulose (Enulose) 20 gm DAILY GTB Last administered on 04/21/16 09:12; Admin Dose 20 GM; Start 04/12/16 at 09:00 Lorazepam (Ativan) 1 mg Q6 GTB Last administered on 04/21/16 12:27; Admin Dose 1 MG; Start 04/12/16 at 00:00 Quetiapine Fumarate (Seroquel) 25 mg BID@ GTB Last administered on 09:15; Admin Dose 25 MG; Start 04/12/16 at 09:00 Quetiapine Fumarate (Seroquel) 200 mg HS GTB Last administered on 04/19/16 22: 43; Admin Dose 200 MG; Start 04/12/16 at 21:00 Senna (Senokot) 1 tab QHS GTB Last administered on 04/19/16 22:43; Admin Dose 1 TAB; Start 04/12/16 at 21:00 Sodium Biphosphate/ Sodium Phosphate (Fleet Enema Pediatric) 66.6 ml DAILY PRN [place] CONSTIPATION; Start 04/11/16 at 22:30 Thiamine HCl (Vitamin B1) 100 mg DAILY GTB Last administered on 04/21/16 09:12 ; Admin Dose 100 MG; Start 04/12/16 at 09:00 Calcium Carbonate (Tums) 500 mg DAILY GTB Last administered on 04/21/16 09:12; Admin Dose 500 MG; Start 04/12/16 at 09:00 Multivitamins/ Minerals (Theragran-M) 1 tab DAILY PO Last administered on 09:12; Admin Dose 1 TAB; Start 04/12/16 at 09:00 Metoprolol Tartrate (Lopressor) 12.5 mg BID PO Last administered on 04/21/16 09 :12; Admin Dose 12.5 MG; Start 04/12/16 at 12:30 Hydralazine HCl 10 mg 10 mg Q6H PRN IV SBP>170 Last administered on 04/19/16 22:46; Admin Dose 10 MG; Start 04/12/16 at 12:30 Ertapenem/Sodium Chloride (Invanz/NS) 100 ml @ 200 mls/hr Q24H IVPB Last administered on 04/19/16 18:23; Admin Dose 200 MLS/HR; Start 04/13/16 at 17:00 Lorazepam 1 mg 1 mg Q6H PRN IV AGITATION/ANXIETY Last administered on 05:16; Admin Dose 1 MG; Start 04/13/16 at 19:00 Dextrose/Sodium Chloride (D5-NS) 1,000 ml @ 75 mls/hr [id number] IV Last administered on 04/20/16 06:24; Admin Dose 75 MLS/HR; Start 04/17/16 at 11:30 Famotidine (Pepcid) 20 mg Q12 GTB Last administered on 04/21/16 09:12; Admin Dose 20 MG; Start 04/19/16 at 21:00 JESI MONTEMAYOR M.D. Apr 21, 2016 13:40
--- NOTE | 2016-04-21 14:32 | RADRPT ---
PROCEDURE: US guidance for PICC line CLINICAL INDICATION: PICC line placement TECHNIQUE: Multiple real-time images were acquired of the patient's arm utilizing a high resolutio n transducer. This was performed by the PICC line nurse for venous access. COMPARISON: None FINDINGS: Ultrasound guidance for PICC line placement. IMPRESSION: Ultrasound guidance for PICC line placement. RPTAT: AA .Augustin Van MD, MD Date Time Electronically viewed and signed by .Augustin Van MD, on 04/21/2016 14:32 .S/
--- NOTE | 2016-04-21 14:40 | RADRPT ---
PROCEDURE: XR Chest. CLINICAL INDICATION: Check PICC line position. TECHNIQUE: Single frontal view. COMPARISON: 04/17/2016. FINDINGS: There is a left arm PICC line with the tip in the lower superior vena cava. The tracheostomy tube r emains in satisfactory position. There is air space disease bilaterally in the mid and lower lung z ones consistent with pulmonary edema, worse than seen previously. There is elevation of the left he midiaphragm. The heart is mildly enlarged. There are bilateral pleural effusions. There is no pneumothorax. There is chronic deformity of the left shoulder. IMPRESSION: 1. Satisfactory position of left arm PICC line. 2. Worsening pulmonary edema. 3. No other change from 04/17/2016. RPTAT: QQ .Tyler Paula MD, Date Time Electronically viewed and signed by .Tyler Paula MD, MD on 04/21/2016 14:40 .R/
--- NOTE | 2016-04-21 15:24 | CONS ---
Date/Time of Note Date/Time of Note DATE: 04/21/16 TIME: 15:23 Assessment/Plan Assessment/Plan Chief Complaint/Hosp Course SUBJECTIVE: No acute events overnight. The patient is awake, confused, lying comfortably in bed. No fevers. MICROBIOLOGY: Blood and urine cultures on admission grew E. coli ESBL. Repeat blood cultures negative. ANTIMICROBIALS: Vanco, Invanz. INDWELLINGS: Trach, PEG, Rae. PHYSICAL EXAMINATION: GENERAL: Chronically ill-appearing, elderly man who is lying comfortably in bed. HEENT: Head atraumatic, normocephalic. Sclerae anicteric. Buccal mucosa dry. NECK: Supple. Tracheostomy present. CHEST: Rise symmetrical. Breath sounds diminished to bases with scattered crackles. HEART: S1, S2. ABDOMEN: Soft. Bowel sounds present. EXTREMITIES: No cyanosis. ASSESSMENT: 1. Sepsis with Escherichia coli extended-spectrum beta-lactamase bacteremia secondary to #2. 2. Escherichia coli extended-spectrum beta-lactamase urinary tract infection. 3. Healthcare-associated pneumonia. 4. Chronic respiratory failure. 5. History of schizoaffective disorder. 6. Dementia. 7. Benign prostatic hypertrophy. PLAN: The patient remains stable. Continue Invanz for 5 more days for bacteremia, scheduled for PICC 2 to no IV access DW staff Problems: Consultation Date/Type/Reason Admit Date/Time Apr 11, 2016 at 22:13 Initial Consult Date 04/12/16 Type of Consultation: id Referring Provider: ANNETTA AGUILAR MD Exam/Review of Systems Vital Signs Vitals Vital Signs Date Time Temp Pulse Resp B/P Pulse Ox O2 Delivery O2 Flow Rate FiO2 04/21/16 13:57 8.0 04/21/16 12:00 98.3 80 20 135/80 99 Trach Collar 04/21/16 07:35 35 Intake and Output 04/20/16 04/20/16 04/21/16 15:00 23:00 07:00 Intake Total 240 ml 960 ml 240 ml Balance 240 ml 960 ml 240 ml Results Result Diagram: 04/20/16 0520 04/20/16 0520 Medications Medications Current Medications Ondansetron HCl (Zofran Inj) 4 mg Q6H PRN IV NAUSEA AND/OR VOMITING; Start at 22:30 Acetaminophen (Tylenol Tab) 650 mg Q6H PRN PO PAIN LEVEL 1-3 OR FEVER; Start at 22:30 Morphine Sulfate (morphine) 2 mg Q4H PRN IV PAIN LEVEL 7-10; Start 04/11/16 at 22:30 Enoxaparin Sodium (Lovenox) 30 mg DAILY SC Last administered on 04/20/16 09:39 ; Admin Dose 30 MG; Start 04/12/16 at 09:00 Ascorbic Acid (Vitamin C) 500 mg DAILY GTB Last administered on 04/21/16 09:12 ; Admin Dose 500 MG; Start 04/12/16 at 09:00 Bisacodyl (Dulcolax) 10 mg DAILY PRN PO CONSTIPATION; Start 04/11/16 at 22:30 Chlorhexidine Gluconate (Peridex) 15 ml BID MM Last administered on 04/21/16 09 :12; Admin Dose 15 ML; Start 04/12/16 at 09:00 Ferrous Sulfate (Feosol Liquid Cup) 300 mg BID GTB Last administered on 09:12; Admin Dose 300 MG; Start 04/12/16 at 09:00 Acetaminophen/ Hydrocodone Bitart ([place] (5/325)) 1 tab Q4 PRN GTB PAIN LEVEL 6 -10; Start 04/11/16 at 22:30 Lactulose (Enulose) 20 gm DAILY GTB Last administered on 04/21/16 09:12; Admin Dose 20 GM; Start 04/12/16 at 09:00 Lorazepam (Ativan) 1 mg Q6 GTB Last administered on 04/21/16 12:27; Admin Dose 1 MG; Start 04/12/16 at 00:00 Quetiapine Fumarate (Seroquel) 25 mg BID@ GTB Last administered on 09:15; Admin Dose 25 MG; Start 04/12/16 at 09:00 Quetiapine Fumarate (Seroquel) 200 mg HS GTB Last administered on 04/19/16 22: 43; Admin Dose 200 MG; Start 04/12/16 at 21:00 Senna (Senokot) 1 tab QHS GTB Last administered on 04/19/16 22:43; Admin Dose 1 TAB; Start 04/12/16 at 21:00 Sodium Biphosphate/ Sodium Phosphate (Fleet Enema Pediatric) 66.6 ml DAILY PRN [place] CONSTIPATION; Start 04/11/16 at 22:30 Thiamine HCl (Vitamin B1) 100 mg DAILY GTB Last administered on 04/21/16 09:12 ; Admin Dose 100 MG; Start 04/12/16 at 09:00 Calcium Carbonate (Tums) 500 mg DAILY GTB Last administered on 04/21/16 09:12; Admin Dose 500 MG; Start 04/12/16 at 09:00 Multivitamins/ Minerals (Theragran-M) 1 tab DAILY PO Last administered on 09:12; Admin Dose 1 TAB; Start 04/12/16 at 09:00 Metoprolol Tartrate (Lopressor) 12.5 mg BID PO Last administered on 04/21/16 09 :12; Admin Dose 12.5 MG; Start 04/12/16 at 12:30 Hydralazine HCl 10 mg 10 mg Q6H PRN IV SBP>170 Last administered on 04/19/16 22:46; Admin Dose 10 MG; Start 04/12/16 at 12:30 Ertapenem/Sodium Chloride (Invanz/NS) 100 ml @ 200 mls/hr Q24H IVPB Last administered on 04/19/16 18:23; Admin Dose 200 MLS/HR; Start 04/13/16 at 17:00 Lorazepam 1 mg 1 mg Q6H PRN IV AGITATION/ANXIETY Last administered on 05:16; Admin Dose 1 MG; Start 04/13/16 at 19:00 Dextrose/Sodium Chloride (D5-NS) 1,000 ml @ 75 mls/hr [id number] IV Last administered on 04/20/16 06:24; Admin Dose 75 MLS/HR; Start 04/17/16 at 11:30 Famotidine (Pepcid) 20 mg Q12 GTB Last administered on 04/21/16 09:12; Admin Dose 20 MG; Start 04/19/16 at 21:00 MARK LONG NP Apr 21, 2016 15:24
[2016-04-21 16:00] LABS: ADD SCAN DIFF NO
[2016-04-21 16:04] LABS: BASOPHIL # 0.1 10^3/ul (0.0-0.1); BASOPHILS % 1.2 % (0.0-2.0); HEMOGLOBIN 8.6 g/dl (14.0-18.0); LYMPHOCYTES # 0.8 10^3/ul (0.8-2.9); LYMPHOCYTES % 20.2 % (15.0-51.0); MEAN CORPUSCULAR HEMOGLOBIN 26.3 pg (29.0-33.0); MEAN CORPUSCULAR HGB CONC 30.7 g/dl (32.0-37.0); MEAN CORPUSCULAR VOLUME 85.6 fl (82.0-101.0); MEAN PLATELET VOLUME 10.1 fl (7.4-10.4); MONOCYTE # 0.5 10^3/ul (0.3-0.9); MONOCYTES % 12.1 % (0.0-11.0); NEUTROPHIL # 2.6 10^3/ul (1.6-7.5); NEUTROPHILS % 65.3 % (39.0-77.0); PLATELET COUNT 228 10^3/UL (140-415); RED BLOOD COUNT 3.27 10^6/ul (4.70-6.10); RETICULOCYTE COUNT % 0.8 % (0.5-1.5); WHITE BLOOD COUNT 4.1 10^3/ul (4.8-10.8)
[2016-04-21 16:17] LABS: IRON 15 ug/dl (35-150)
[2016-04-21 16:20] LABS: POTASSIUM 4.1 mmol/L (3.5-5.1)
[2016-04-21 16:23] LABS: CALCIUM 8.4 mg/dl (8.4-10.2); CREATININE 0.54 mg/dl (0.61-1.24)
[2016-04-21] MEDS: DEXTROSE 5%-0.9% NACL 1,000 ML IV SCH ×2 (16:25→22:10)
[2016-04-21 16:27] LABS: TOTAL IRON BINDING CAPACITY 187 ug/dl (241-421)
[2016-04-21] MEDS: ERTAPENEM SODIUM 1 GM in SOD CHLORIDE 0.9% 100 ML IVPB SCH (16:28)
[2016-04-21 16:55] LABS: FERRITIN 87.8 ng/ml (11.1-264.0)
--- NOTE | 2016-04-21 19:25 | PN ---
Date/Time of Note Date/Time of Note DATE: 04/21/16 TIME: 19:24 Assessment/Plan VTE Prophylaxis VTE Prophylaxis Intervention: SCD's Lines/Catheters IV C[facility]ter Type (from [facility]): PICC Line Central line still needed: Yes Urinary Cath still in place: No Assessment/Plan Chief Complaint/Hosp Course ASSESSMENT AND PLAN: - Acute hypoxic respiratory failure. Dr. Anderson is following in pulmonology consultation. Continue ventilatory support and bronchodilators. - Possible healthcare-acquired left lower lung pneumonia versus aspiration. Continue antibiotics per ID. Dr. Rojas is following an infection disease consultation. - E. coli ESBL urinary tract infection. Continue Ertapenem. - Sepsis with Ecoli ESBL bacteremia 2 UTI. - Normocytic anemia. Dr Gaona is following in hematology consultation. - Dysphagia, with G-tube. - History of chronic respiratory failure with tracheostomy. - Benign prostatic hypertrophy. - Schizoaffective disorder. Continue Seroquel and Ativan as needed for agitation. Continue Lovenox for deep venous thrombosis prophylaxis and Pepcid for peptic ulcer disease prophylaxis. Further recommendations based on clinical course. Plan of care discussed with Dr. Colunga. Problems: Subjective 24 Hr Interval Summary Free Text/Dictation Patient remains afebrile, no nausea vomiting reported per RN. Exam/Review of Systems Vital Signs Vitals Vital Signs Date Time Temp Pulse Resp B/P Pulse Ox O2 Delivery O2 Flow Rate FiO2 04/21/16 18:00 98.1 20 156/85 99 Trach Collar 04/21/16 17:28 8.0 35 04/21/16 16:00 90 Intake and Output 04/20/16 04/20/16 04/21/16 15:00 23:00 07:00 Intake Total 240 ml 960 ml 240 ml Balance 240 ml 960 ml 240 ml Exam GENERAL: A well-developed, cachectic gentleman, currently is awake, alert, follows immediate commands, otherwise confused. HEENT: Head is atraumatic, normocephalic. LYDIA. NECK: Supple, with tracheostomy at the base of the neck, with a moderate amount of secretions, no bleeding. LUNGS: Diminished at the bases. Patient has scattered severe rhonchi bilaterally. CARDIOVASCULAR: Normal S1, S2. No murmurs, gallops, clicks, rubs noted. ABDOMEN: Flat, soft, nondistended, nontender. Bowel sounds present. Patient has a G-tube with intact stoma. EXTREMITIES: Contractured. There is no edema, clubbing, cyanosis. Pulses equal bilaterally, 2+. SKIN: There is no rash, petechiae noted. NEUROLOGIC: Patient is awake, alert. Results Result Diagram: 04/21/16 1516 04/21/16 1516 Results 24 hrs Laboratory Tests Test 04/21/16 15:16 Absolute Reticulocyte Count 0.026 Anion Gap 11 Basophils # 0.1 Basophils % 1.2 Blood Urea Nitrogen 10 Calcium Level 8.4 Carbon Dioxide Level 34 H Chloride Level 98 Creatinine 0.54 L Eosinophils # 0.0 Eosinophils % 1.0 Erythrocyte Sedimentation Rate 25 H Ferritin 87.8 Glucose Level 104 Hematocrit 28.0 L Hemoglobin 8.6 L Iron Level 15 L Lactate Dehydrogenase 427 Lymphocytes # 0.8 Lymphocytes % 20.2 Mean Corpuscular Hemoglobin 26.3 L Mean Corpuscular Hemoglobin Concent 30.7 L Mean Corpuscular Volume 85.6 Mean Platelet Volume 10.1 Monocytes # 0.5 Monocytes % 12.1 H Neutrophils # 2.6 Neutrophils % 65.3 Nucleated Red Blood Cells # 0.0 Nucleated Red Blood Cells % 0.0 Percent Iron Saturation 8 L Percent Reticulocyte Count 0.8 Platelet Count 228 # Potassium Level 4.1 Red Blood Count 3.27 L Red Cell Distribution Width 18.0 H Sodium Level 139 Total Iron Binding Capacity 187 L Vitamin B12 Level > 1000 H White Blood Count 4.1 L Medications Medications Current Medications Ondansetron HCl (Zofran Inj) 4 mg Q6H PRN IV NAUSEA AND/OR VOMITING; Start at 22:30 Acetaminophen (Tylenol Tab) 650 mg Q6H PRN PO PAIN LEVEL 1-3 OR FEVER; Start at 22:30 Morphine Sulfate (morphine) 2 mg Q4H PRN IV PAIN LEVEL 7-10; Start 04/11/16 at 22:30 Enoxaparin Sodium (Lovenox) 30 mg DAILY SC Last administered on 04/20/16 09:39 ; Admin Dose 30 MG; Start 04/12/16 at 09:00 Ascorbic Acid (Vitamin C) 500 mg DAILY GTB Last administered on 04/21/16 09:12 ; Admin Dose 500 MG; Start 04/12/16 at 09:00 Bisacodyl (Dulcolax) 10 mg DAILY PRN PO CONSTIPATION; Start 04/11/16 at 22:30 Chlorhexidine Gluconate (Peridex) 15 ml BID MM Last administered on 04/21/16 09 :12; Admin Dose 15 ML; Start 04/12/16 at 09:00 Ferrous Sulfate (Feosol Liquid Cup) 300 mg BID GTB Last administered on 09:12; Admin Dose 300 MG; Start 04/12/16 at 09:00 Acetaminophen/ Hydrocodone Bitart ([place] (5/325)) 1 tab Q4 PRN GTB PAIN LEVEL 6 -10; Start 04/11/16 at 22:30 Lactulose (Enulose) 20 gm DAILY GTB Last administered on 04/21/16 09:12; Admin Dose 20 GM; Start 04/12/16 at 09:00 Lorazepam (Ativan) 1 mg Q6 GTB Last administered on 04/21/16 16:27; Admin Dose 1 MG; Start 04/12/16 at 00:00 Quetiapine Fumarate (Seroquel) 25 mg BID@ GTB Last administered on 16:25; Admin Dose 25 MG; Start 04/12/16 at 09:00 Quetiapine Fumarate (Seroquel) 200 mg HS GTB Last administered on 04/19/16 22: 43; Admin Dose 200 MG; Start 04/12/16 at 21:00 Senna (Senokot) 1 tab QHS GTB Last administered on 04/19/16 22:43; Admin Dose 1 TAB; Start 04/12/16 at 21:00 Sodium Biphosphate/ Sodium Phosphate (Fleet Enema Pediatric) 66.6 ml DAILY PRN [place] CONSTIPATION; Start 04/11/16 at 22:30 Thiamine HCl (Vitamin B1) 100 mg DAILY GTB Last administered on 04/21/16 09:12 ; Admin Dose 100 MG; Start 04/12/16 at 09:00 Calcium Carbonate (Tums) 500 mg DAILY GTB Last administered on 04/21/16 09:12; Admin Dose 500 MG; Start 04/12/16 at 09:00 Multivitamins/ Minerals (Theragran-M) 1 tab DAILY PO Last administered on 09:12; Admin Dose 1 TAB; Start 04/12/16 at 09:00 Metoprolol Tartrate (Lopressor) 12.5 mg BID PO Last administered on 04/21/16 09 :12; Admin Dose 12.5 MG; Start 04/12/16 at 12:30 Hydralazine HCl 10 mg 10 mg Q6H PRN IV SBP>170 Last administered on 04/19/16 22:46; Admin Dose 10 MG; Start 04/12/16 at 12:30 Ertapenem/Sodium Chloride (Invanz/NS) 100 ml @ 200 mls/hr Q24H IVPB Last administered on 04/21/16 16:28; Admin Dose 200 MLS/HR; Start 04/13/16 at 17:00 Lorazepam 1 mg 1 mg Q6H PRN IV AGITATION/ANXIETY Last administered on 05:16; Admin Dose 1 MG; Start 04/13/16 at 19:00 Dextrose/Sodium Chloride (D5-NS) 1,000 ml @ 75 mls/hr [id number] IV Last administered on 04/21/16 16:25; Admin Dose 75 MLS/HR; Start 04/17/16 at 11:30 Famotidine (Pepcid) 20 mg Q12 GTB Last administered on 04/21/16 09:12; Admin Dose 20 MG; Start 04/19/16 at 21:00 SHELBY BUNCH Apr 21, 2016 19:25
[2016-04-21] MEDS: SENNA TAB GTB SCH (20:24)
[2016-04-21] MEDS: QUETIAPINE 100 MG TAB GTB SCH (20:27)
[2016-04-22] VITALS (11 sets, daily range): BP systolic 128–197; BP diastolic 54–109; PULSE 20–90; RESP 18–20
[2016-04-22] MEDS: ALBUTEROL/IPRATROPIUM (NEB) 3 ML AMP INH SCH ×4 (01:15→20:16)
[2016-04-22 05:06] LABS: ADD SCAN DIFF NO
[2016-04-22] MEDS: LORAZEPAM 1 MG TAB GTB SCH ×3 (05:22→18:00)
[2016-04-22 05:23] LABS: CREATININE 0.58 mg/dl (0.61-1.24)
[2016-04-22 05:36] LABS: BASOPHILS % 0.2 % (0.0-2.0); EOSINOPHILS % 0.7 % (0.0-7.0); HEMATOCRIT 25.1 % (42.0-52.0); HEMOGLOBIN 7.6 g/dl (14.0-18.0); LYMPHOCYTES # 1.2 10^3/ul (0.8-2.9); LYMPHOCYTES % 26.6 % (15.0-51.0); MEAN CORPUSCULAR HEMOGLOBIN 26.5 pg (29.0-33.0); MEAN CORPUSCULAR HGB CONC 30.3 g/dl (32.0-37.0); MEAN CORPUSCULAR VOLUME 87.5 fl (82.0-101.0); MEAN PLATELET VOLUME 10.7 fl (7.4-10.4); MONOCYTE # 0.7 10^3/ul (0.3-0.9); MONOCYTES % 16.4 % (0.0-11.0); NEUTROPHIL # 2.4 10^3/ul (1.6-7.5); NEUTROPHILS % 55.9 % (39.0-77.0); PLATELET COUNT 188 10^3/UL (140-415); RED BLOOD COUNT 2.87 10^6/ul (4.70-6.10); RED CELL DISTRIBUTION WIDTH 18.2 % (11.5-14.5); WHITE BLOOD COUNT 4.3 10^3/ul (4.8-10.8)
[2016-04-22 06:02] LABS: PROTEIN, TOTAL 5.5 g/dL (6.1-8.1)
[2016-04-22] MEDS: CHLORHEXIDINE GLUCONATE 15 ML UD CUP MM SCH ×2 (09:17→20:43)
[2016-04-22] MEDS: LACTULOSE 30ML CUP GTB SCH (09:17)
[2016-04-22] MEDS: FERROUS SULFATE 60 MG/ML 5ML CUP GTB SCH ×2 (09:17→20:43)
[2016-04-22] MEDS: MULTIVITAMINS/MINERALS TAB PO SCH (09:18)
[2016-04-22] MEDS: FAMOTIDINE 20 MG TAB GTB SCH ×2 (09:18→21:09)
[2016-04-22] MEDS: METOPROLOL 25 MG TAB PO SCH ×2 (09:18→20:45)
[2016-04-22] MEDS: ASCORBIC ACID 500 MG TAB GTB SCH (09:18)
[2016-04-22] MEDS: THIAMINE 100 MG TAB GTB SCH (09:18)
[2016-04-22] MEDS: CALCIUM CARBONATE 500 MG CHEW TAB GTB SCH (09:18)
[2016-04-22] MEDS: ENOXAPARIN 30 MG/0.3 ML SYG SC SCH (09:20)
[2016-04-22] MEDS: QUETIAPINE 25 MG TAB GTB SCH ×2 (09:22→18:00)
[2016-04-22] MEDS: morphine 2 MG INJ IV PRN (09:23)
[2016-04-22] MEDS: SOD FERRIC GLUC COMPLX 125 MG in SOD CHLORIDE 0.9% 100 ML IVPB SCH (10:55)
--- NOTE | 2016-04-22 11:44 | PN ---
Date/Time of Note Date/Time of Note DATE: 04/22/16 TIME: 11:42 Assessment/Plan VTE Prophylaxis VTE Prophylaxis Intervention: LMWH Lines/Catheters IV C[facility]ter Type (from [facility]): PICC Line Central line still needed: Yes Urinary Cath still in place: No Assessment/Plan Assessment/Plan - Acute hypoxic respiratory failure. on Vent now - per Dr. Anderson in pulmonology consultation. - Continue ventilatory support and bronchodilators. - Possible healthcare-acquired left lower lung pneumonia versus aspiration. - Continue antibiotics per ID. - Dr. Rojas is following an infection disease consultation. - E. coli ESBL urinary tract infection. Continue Ertapenem. - Sepsis with Ecoli ESBL bacteremia 2 UTI. - Normocytic anemia. - Dr Gaona is following in hematology consultation. - monitor H/H, bleeding - Dysphagia, with G-tube. - aspiration precautions - History of chronic respiratory failure with tracheostomy. - Benign prostatic hypertrophy. - Schizoaffective disorder. Continue Seroquel and Ativan as needed for agitation. - Lovenox for deep venous thrombosis prophylaxis- - Pepcid for peptic ulcer disease prophylaxis. Further recommendations based on clinical course. Plan of care discussed with Dr. Colunga. Subjective 24 Hr Interval Summary Free Text/Dictation NAD. awake, alert, afebrile, no acute issues reported, staff. Constitutional: requiring IVF Respiratory: shortness of breath Cardiovascular: no complaints Gastrointestinal: no complaints Musculoskeletal: restricted range of motion Exam/Review of Systems Vital Signs Vitals Vital Signs Date Time Temp Pulse Resp B/P Pulse Ox O2 Delivery O2 Flow Rate FiO2 04/22/16 10:00 97.9 81 18 128/84 Trach Collar 04/22/16 09:22 8.0 04/22/16 08:40 96 35 Intake and Output 04/21/16 04/21/16 04/22/16 15:00 23:00 07:00 Intake Total 1025 ml 850 ml Balance 1025 ml 850 ml Exam Constitutional: alert Psych: no complaints Eyes: EOMI, nl sclera ENMT: nl external ears & nose Neck: non-tender Respiratory: diminished breath sounds, other (trach intact) Cardiovascular: nl pulses Gastrointestinal: non-tender, other (GT intact), soft Musculoskeletal: muscle weakness, other (BUE. BLE contractures- Cont PT) Extremities: normal pulses Neurological: other (aawke. alert, follows simple commands) Skin: other Results Result Diagram: 04/22/16 0415 04/22/16 0415 Results 24 hrs Laboratory Tests Test 04/21/16 15:16 04/22/16 04:15 Absolute Reticulocyte Count 0.026 Albumin (PEP) Pending [id number] Pending [id number] Pending Anion Gap 11 10 Basophils # 0.1 0.0 Basophils % 1.2 0.2 Beta Globulins Pending Blood Urea Nitrogen 10 13 Calcium Level 8.4 8.0 L Carbon Dioxide Level 34 H 34 H Chloride Level 98 100 Creatinine 0.54 L 0.58 L Eosinophils # 0.0 0.0 Eosinophils % 1.0 0.7 Erythrocyte Sedimentation Rate 25 H Ferritin 87.8 Gamma Globulins Pending Glucose Level 104 88 Haptoglobin Pending Hematocrit 28.0 L 25.1 L Hemoglobin 8.6 L 7.6 L Iron Level 15 L Lactate Dehydrogenase 427 Lymphocytes # 0.8 1.2 Lymphocytes % 20.2 26.6 Mean Corpuscular Hemoglobin 26.3 L 26.5 L Mean Corpuscular Hemoglobin Concent 30.7 L 30.3 L Mean Corpuscular Volume 85.6 87.5 Mean Platelet Volume 10.1 10.7 H Monocytes # 0.5 0.7 Monocytes % 12.1 H 16.4 H Neutrophils # 2.6 2.4 Neutrophils % 65.3 55.9 Nucleated Red Blood Cells # 0.0 0.0 Nucleated Red Blood Cells % 0.0 0.0 Percent Iron Saturation 8 L Percent Reticulocyte Count 0.8 Platelet Count 228 # 188 Potassium Level 4.1 4.0 Protein Electrophoresis Interpret Pending Red Blood Count 3.27 L 2.87 L Red Cell Distribution Width 18.0 H 18.2 H Sodium Level 139 140 Total Iron Binding Capacity 187 L Total Protein (PEP) 5.5 L Vitamin B12 Level > 1000 H White Blood Count 4.1 L 4.3 L Medications Medications Current Medications Ondansetron HCl (Zofran Inj) 4 mg Q6H PRN IV NAUSEA AND/OR VOMITING; Start at 22:30 Acetaminophen (Tylenol Tab) 650 mg Q6H PRN PO PAIN LEVEL 1-3 OR FEVER; Start at 22:30 Morphine Sulfate (morphine) 2 mg Q4H PRN IV PAIN LEVEL 7-10 Last administered on 04/22/16 09:23; Admin Dose 2 MG; Start 04/11/16 at 22:30 Enoxaparin Sodium (Lovenox) 30 mg DAILY SC Last administered on 04/22/16 09:20 ; Admin Dose 30 MG; Start 04/12/16 at 09:00 Ascorbic Acid (Vitamin C) 500 mg DAILY GTB Last administered on 04/22/16 09:18 ; Admin Dose 500 MG; Start 04/12/16 at 09:00 Bisacodyl (Dulcolax) 10 mg DAILY PRN PO CONSTIPATION; Start 04/11/16 at 22:30 Chlorhexidine Gluconate (Peridex) 15 ml BID MM Last administered on 04/22/16 09 :17; Admin Dose 15 ML; Start 04/12/16 at 09:00 Ferrous Sulfate (Feosol Liquid Cup) 300 mg BID GTB Last administered on 09:17; Admin Dose 300 MG; Start 04/12/16 at 09:00 Acetaminophen/ Hydrocodone Bitart ([place] (5/325)) 1 tab Q4 PRN GTB PAIN LEVEL 6 -10; Start 04/11/16 at 22:30 Lactulose (Enulose) 20 gm DAILY GTB Last administered on 04/22/16 09:17; Admin Dose 20 GM; Start 04/12/16 at 09:00 Lorazepam (Ativan) 1 mg Q6 GTB Last administered on 04/22/16 05:22; Admin Dose 1 MG; Start 04/12/16 at 00:00 Quetiapine Fumarate (Seroquel) 25 mg BID@ GTB Last administered on 09:22; Admin Dose 25 MG; Start 04/12/16 at 09:00 Quetiapine Fumarate (Seroquel) 200 mg HS GTB Last administered on 04/21/16 20: 27; Admin Dose 200 MG; Start 04/12/16 at 21:00 Senna (Senokot) 1 tab QHS GTB Last administered on 04/21/16 20:24; Admin Dose 1 TAB; Start 04/12/16 at 21:00 Sodium Biphosphate/ Sodium Phosphate (Fleet Enema Pediatric) 66.6 ml DAILY PRN [place] CONSTIPATION; Start 04/11/16 at 22:30 Thiamine HCl (Vitamin B1) 100 mg DAILY GTB Last administered on 04/22/16 09:18 ; Admin Dose 100 MG; Start 04/12/16 at 09:00 Calcium Carbonate (Tums) 500 mg DAILY GTB Last administered on 04/22/16 09:18; Admin Dose 500 MG; Start 04/12/16 at 09:00 Multivitamins/ Minerals (Theragran-M) 1 tab DAILY PO Last administered on 09:18; Admin Dose 1 TAB; Start 04/12/16 at 09:00 Metoprolol Tartrate (Lopressor) 12.5 mg BID PO Last administered on 04/22/16 09 :18; Admin Dose 12.5 MG; Start 04/12/16 at 12:30 Hydralazine HCl 10 mg 10 mg Q6H PRN IV SBP>170 Last administered on 04/19/16 22:46; Admin Dose 10 MG; Start 04/12/16 at 12:30 Ertapenem/Sodium Chloride (Invanz/NS) 100 ml @ 200 mls/hr Q24H IVPB Last administered on 04/21/16 16:28; Admin Dose 200 MLS/HR; Start 04/13/16 at 17:00 Lorazepam 1 mg 1 mg Q6H PRN IV AGITATION/ANXIETY Last administered on 05:16; Admin Dose 1 MG; Start 04/13/16 at 19:00 Dextrose/Sodium Chloride (D5-NS) 1,000 ml @ 75 mls/hr [id number] IV Last administered on 04/21/16 16:25; Admin Dose 75 MLS/HR; Start 04/17/16 at 11:30 Famotidine 20 mg 20 mg Q12 GTB Last administered on 04/22/16 09:18; Admin Dose 20 MG; Start 04/19/16 at 21:00 Ferric Sodium Gluconate Complex/ Sodium Chloride (Ferrlecit/NS) 110 ml @ 110 mls/hr Q24H IVPB Last administered on 04/22/16 10:55; Admin Dose 110 MLS/HR; Start 04/22/16 at 10:30; Stop 04/26/16 at 11:29 BRENT KENDRICK Apr 22, 2016 11:44
[2016-04-22] MEDS: DEXTROSE 5%-0.9% NACL 1,000 ML IV SCH (11:53)
--- NOTE | 2016-04-22 12:04 | CONS ---
Date/Time of Note Date/Time of Note DATE: 04/22/16 TIME: 12:03 Assessment/Plan Assessment/Plan Chief Complaint/Hosp Course SUBJECTIVE: No acute events overnight. The patient is awake, confused, lying comfortably in bed. No fevers. MICROBIOLOGY: Blood and urine cultures on admission grew E. coli ESBL. Repeat blood cultures negative. ANTIMICROBIALS: Invanz. INDWELLINGS: Trach, PEG, Rae, PICC PHYSICAL EXAMINATION: GENERAL: Chronically ill-appearing, elderly man who is lying comfortably in bed. HEENT: Head atraumatic, normocephalic. Sclerae anicteric. Buccal mucosa dry. NECK: Supple. Tracheostomy present. CHEST: Rise symmetrical. Breath sounds diminished to bases with scattered crackles. HEART: S1, S2. ABDOMEN: Soft. Bowel sounds present. EXTREMITIES: No cyanosis. ASSESSMENT: 1. S/p sepsis with Escherichia coli extended-spectrum beta-lactamase bacteremia secondary to #2. 2. Escherichia coli extended-spectrum beta-lactamase urinary tract infection. 3. Healthcare-associated pneumonia. 4. Chronic respiratory failure. 5. History of schizoaffective disorder. 6. Dementia. 7. Benign prostatic hypertrophy. PLAN: The patient remains stable. Continue Invanz for 4 more days for bacteremia DW staff Problems: Consultation Date/Type/Reason Admit Date/Time Apr 11, 2016 at 22:13 Initial Consult Date 04/12/16 Type of Consultation: id Referring Provider: ANNETTA AGUILAR MD Exam/Review of Systems Vital Signs Vitals Vital Signs Date Time Temp Pulse Resp B/P Pulse Ox O2 Delivery O2 Flow Rate FiO2 04/22/16 10:00 97.9 81 18 128/84 Trach Collar 04/22/16 09:22 8.0 04/22/16 08:40 96 35 Intake and Output 04/21/16 04/21/16 04/22/16 15:00 23:00 07:00 Intake Total 1025 ml 850 ml Balance 1025 ml 850 ml Results Result Diagram: 04/22/16 0415 04/22/16 0415 Results 24 hrs Laboratory Tests Test 04/21/16 15:16 04/21/16 23:30 04/22/16 04:15 Absolute Reticulocyte Count 0.026 Albumin (PEP) Pending [id number] Pending [id number] Pending Anion Gap 11 10 Basophils # 0.1 0.0 Basophils % 1.2 0.2 Beta Globulins Pending Blood Urea Nitrogen 10 13 Calcium Level 8.4 8.0 L Carbon Dioxide Level 34 H 34 H Chloride Level 98 100 Creatinine 0.54 L 0.58 L Eosinophils # 0.0 0.0 Eosinophils % 1.0 0.7 Erythrocyte Sedimentation Rate 25 H Ferritin 87.8 Gamma Globulins Pending Glucose Level 104 88 Haptoglobin Pending Hematocrit 28.0 L 25.1 L Hemoglobin 8.6 L 7.6 L Iron Level 15 L Lactate Dehydrogenase 427 Lymphocytes # 0.8 1.2 Lymphocytes % 20.2 26.6 Mean Corpuscular Hemoglobin 26.3 L 26.5 L Mean Corpuscular Hemoglobin Concent 30.7 L 30.3 L Mean Corpuscular Volume 85.6 87.5 Mean Platelet Volume 10.1 10.7 H Monocytes # 0.5 0.7 Monocytes % 12.1 H 16.4 H Neutrophils # 2.6 2.4 Neutrophils % 65.3 55.9 Nucleated Red Blood Cells # 0.0 0.0 Nucleated Red Blood Cells % 0.0 0.0 Percent Iron Saturation 8 L Percent Reticulocyte Count 0.8 Platelet Count 228 # 188 Potassium Level 4.1 4.0 Protein Electrophoresis Interpret Pending Red Blood Count 3.27 L 2.87 L Red Cell Distribution Width 18.0 H 18.2 H Sodium Level 139 140 Total Iron Binding Capacity 187 L Total Protein (PEP) 5.5 L Vitamin B12 Level > 1000 H White Blood Count 4.1 L 4.3 L Stool Occult Blood NEGATIVE Medications Medications Current Medications Ondansetron HCl (Zofran Inj) 4 mg Q6H PRN IV NAUSEA AND/OR VOMITING; Start at 22:30 Acetaminophen (Tylenol Tab) 650 mg Q6H PRN PO PAIN LEVEL 1-3 OR FEVER; Start at 22:30 Morphine Sulfate (morphine) 2 mg Q4H PRN IV PAIN LEVEL 7-10 Last administered on 04/22/16 09:23; Admin Dose 2 MG; Start 04/11/16 at 22:30 Ascorbic Acid (Vitamin C) 500 mg DAILY GTB Last administered on 04/22/16 09:18 ; Admin Dose 500 MG; Start 04/12/16 at 09:00 Bisacodyl (Dulcolax) 10 mg DAILY PRN PO CONSTIPATION; Start 04/11/16 at 22:30 Chlorhexidine Gluconate (Peridex) 15 ml BID MM Last administered on 04/22/16 09 :17; Admin Dose 15 ML; Start 04/12/16 at 09:00 Ferrous Sulfate (Feosol Liquid Cup) 300 mg BID GTB Last administered on 09:17; Admin Dose 300 MG; Start 04/12/16 at 09:00 Acetaminophen/ Hydrocodone Bitart ([place] (5/325)) 1 tab Q4 PRN GTB PAIN LEVEL 6 -10; Start 04/11/16 at 22:30 Lactulose (Enulose) 20 gm DAILY GTB Last administered on 04/22/16 09:17; Admin Dose 20 GM; Start 04/12/16 at 09:00 Lorazepam (Ativan) 1 mg Q6 GTB Last administered on 04/22/16 11:49; Admin Dose 1 MG; Start 04/12/16 at 00:00 Quetiapine Fumarate (Seroquel) 25 mg BID@ GTB Last administered on 09:22; Admin Dose 25 MG; Start 04/12/16 at 09:00 Quetiapine Fumarate (Seroquel) 200 mg HS GTB Last administered on 04/21/16 20: 27; Admin Dose 200 MG; Start 04/12/16 at 21:00 Senna (Senokot) 1 tab QHS GTB Last administered on 04/21/16 20:24; Admin Dose 1 TAB; Start 04/12/16 at 21:00 Sodium Biphosphate/ Sodium Phosphate (Fleet Enema Pediatric) 66.[address] CONSTIPATION; Start 04/11/16 at 22:30 Thiamine HCl (Vitamin B1) 100 mg DAILY GTB Last administered on 04/22/16 09:18 ; Admin Dose 100 MG; Start 04/12/16 at 09:00 Calcium Carbonate (Tums) 500 mg DAILY GTB Last administered on 04/22/16 09:18; Admin Dose 500 MG; Start 04/12/16 at 09:00 Multivitamins/ Minerals (Theragran-M) 1 tab DAILY PO Last administered on 09:18; Admin Dose 1 TAB; Start 04/12/16 at 09:00 Metoprolol Tartrate (Lopressor) 12.5 mg BID PO Last administered on 04/22/16 09 :18; Admin Dose 12.5 MG; Start 04/12/16 at 12:30 Hydralazine HCl 10 mg 10 mg Q6H PRN IV SBP>170 Last administered on 04/19/16 22:46; Admin Dose 10 MG; Start 04/12/16 at 12:30 Ertapenem/Sodium Chloride (Invanz/NS) 100 ml @ 200 mls/hr Q24H IVPB Last administered on 04/21/16 16:28; Admin Dose 200 MLS/HR; Start 04/13/16 at 17:00 Lorazepam 1 mg 1 mg Q6H PRN IV AGITATION/ANXIETY Last administered on 05:16; Admin Dose 1 MG; Start 04/13/16 at 19:00 Dextrose/Sodium Chloride (D5-NS) 1,000 ml @ 75 mls/hr [id number] IV Last administered on 04/22/16 11:53; Admin Dose 75 MLS/HR; Start 04/17/16 at 11:30 Famotidine 20 mg 20 mg Q12 GTB Last administered on 04/22/16 09:18; Admin Dose 20 MG; Start 04/19/16 at 21:00 Ferric Sodium Gluconate Complex/ Sodium Chloride (Ferrlecit/NS) 110 ml @ 110 mls/hr Q24H IVPB Last administered on 04/22/16 10:55; Admin Dose 110 MLS/HR; Start 04/22/16 at 10:30; Stop 04/26/16 at 11:29 MARK LONG NP Apr 22, 2016 12:04
--- NOTE | 2016-04-22 12:58 | CONS ---
Date/Time of Note Date/Time of Note DATE: 04/22/16 TIME: 12:51 Assessment/Plan Assessment/Plan Chief Complaint/Hosp Course 65 up male with acute hypoxic respiratory failure being admitted for sepsis secondary to ESBL bacteremia. Pt has a worsening normocytic anemia that is likely secondary to his underlying sepsis and antibiotic use. Anemia panel does also reveal evidence of anemia of chronic inflammation as well as iron deficiency. No evidence of Vit b12 nor folate deficiency. Low retic count does indicate the bone marrow is not appropriately responding likely from the overlying sepsis. Normal LDH makes hemolysis unlikely -will f/u the following tests: haptoglobin, SPEP, erythropoietin level -given Hg is less than 8 will give 1 unit of PRBC today -continue treatment of underlying sepsis with current antibiotics -IV iron started, Ferrlecit for 5 days Approximately 40 min were spent at patient's bedside and in coordination of his care Problems: Consultation Date/Type/Reason Admit Date/Time Apr 11, 2016 at 22:13 Initial Consult Date 04/21/16 Type of Consultation: Hematology Reason for Consultation anemia Referring Provider: ANNETTA AGUILAR MD 24 HR Interval Summary Free Text/Dictation patient continues on antibiotics. no bleeding. Hg did drop Exam/Review of Systems Vital Signs Vitals Vital Signs Date Time Temp Pulse Resp B/P Pulse Ox O2 Delivery O2 Flow Rate FiO2 04/22/16 12:02 97.3 69 151/99 99 Trach Collar 04/22/16 10:00 18 04/22/16 09:22 8.0 04/22/16 08:40 35 Intake and Output 04/21/16 04/21/16 04/22/16 15:00 23:00 07:00 Intake Total 1025 ml 850 ml Balance 1025 ml 850 ml Exam Constitutional: non-verbal Psych: anxiety, confusion Head: normocephalic Eyes: nl conjunctiva ENMT: nl external ears & nose Neck: other (trach in place) Respiratory: clear to auscultation, normal air movement Cardiovascular: nl pulses, regular rate and rhythm Gastrointestinal: soft Musculoskeletal: nl extremities to inspection, nl gait and stance Extremities: normal pulses Results Result Diagram: 04/22/16 0415 04/22/16 0415 Results 24 hrs Laboratory Tests Test 04/21/16 15:16 04/21/16 23:30 04/22/16 04:15 Absolute Reticulocyte Count 0.026 Albumin (PEP) Pending [id number] Pending [id number] Pending Anion Gap 11 10 Basophils # 0.1 0.0 Basophils % 1.2 0.2 Beta Globulins Pending Blood Urea Nitrogen 10 13 Calcium Level 8.4 8.0 L Carbon Dioxide Level 34 H 34 H Chloride Level 98 100 Creatinine 0.54 L 0.58 L Eosinophils # 0.0 0.0 Eosinophils % 1.0 0.7 Erythrocyte Sedimentation Rate 25 H Ferritin 87.8 Gamma Globulins Pending Glucose Level 104 88 Haptoglobin Pending Hematocrit 28.0 L 25.1 L Hemoglobin 8.6 L 7.6 L Iron Level 15 L Lactate Dehydrogenase 427 Lymphocytes # 0.8 1.2 Lymphocytes % 20.2 26.6 Mean Corpuscular Hemoglobin 26.3 L 26.5 L Mean Corpuscular Hemoglobin Concent 30.7 L 30.3 L Mean Corpuscular Volume 85.6 87.5 Mean Platelet Volume 10.1 10.7 H Monocytes # 0.5 0.7 Monocytes % 12.1 H 16.4 H Neutrophils # 2.6 2.4 Neutrophils % 65.3 55.9 Nucleated Red Blood Cells # 0.0 0.0 Nucleated Red Blood Cells % 0.0 0.0 Percent Iron Saturation 8 L Percent Reticulocyte Count 0.8 Platelet Count 228 # 188 Potassium Level 4.1 4.0 Protein Electrophoresis Interpret Pending Red Blood Count 3.27 L 2.87 L Red Cell Distribution Width 18.0 H 18.2 H Sodium Level 139 140 Total Iron Binding Capacity 187 L Total Protein (PEP) 5.5 L Vitamin B12 Level > 1000 H White Blood Count 4.1 L 4.3 L Stool Occult Blood NEGATIVE Medications Medications Current Medications Ondansetron HCl (Zofran Inj) 4 mg Q6H PRN IV NAUSEA AND/OR VOMITING; Start at 22:30 Acetaminophen (Tylenol Tab) 650 mg Q6H PRN PO PAIN LEVEL 1-3 OR FEVER; Start at 22:30 Morphine Sulfate (morphine) 2 mg Q4H PRN IV PAIN LEVEL 7-10 Last administered on 04/22/16 09:23; Admin Dose 2 MG; Start 04/11/16 at 22:30 Ascorbic Acid (Vitamin C) 500 mg DAILY GTB Last administered on 04/22/16 09:18 ; Admin Dose 500 MG; Start 04/12/16 at 09:00 Bisacodyl (Dulcolax) 10 mg DAILY PRN PO CONSTIPATION; Start 04/11/16 at 22:30 Chlorhexidine Gluconate (Peridex) 15 ml BID MM Last administered on 04/22/16 09 :17; Admin Dose 15 ML; Start 04/12/16 at 09:00 Ferrous Sulfate (Feosol Liquid Cup) 300 mg BID GTB Last administered on 09:17; Admin Dose 300 MG; Start 04/12/16 at 09:00 Acetaminophen/ Hydrocodone Bitart ([place] (5/325)) 1 tab Q4 PRN GTB PAIN LEVEL 6 -10; Start 04/11/16 at 22:30 Lactulose (Enulose) 20 gm DAILY GTB Last administered on 04/22/16 09:17; Admin Dose 20 GM; Start 04/12/16 at 09:00 Lorazepam (Ativan) 1 mg Q6 GTB Last administered on 04/22/16 11:49; Admin Dose 1 MG; Start 04/12/16 at 00:00 Quetiapine Fumarate (Seroquel) 25 mg BID@ GTB Last administered on 09:22; Admin Dose 25 MG; Start 04/12/16 at 09:00 Quetiapine Fumarate (Seroquel) 200 mg HS GTB Last administered on 04/21/16 20: 27; Admin Dose 200 MG; Start 04/12/16 at 21:00 Senna (Senokot) 1 tab QHS GTB Last administered on 04/21/16 20:24; Admin Dose 1 TAB; Start 04/12/16 at 21:00 Sodium Biphosphate/ Sodium Phosphate (Fleet Enema Pediatric) 66.6 ml DAILY PRN [place] CONSTIPATION; Start 04/11/16 at 22:30 Thiamine HCl (Vitamin B1) 100 mg DAILY GTB Last administered on 04/22/16 09:18 ; Admin Dose 100 MG; Start 04/12/16 at 09:00 Calcium Carbonate (Tums) 500 mg DAILY GTB Last administered on 04/22/16 09:18; Admin Dose 500 MG; Start 04/12/16 at 09:00 Multivitamins/ Minerals (Theragran-M) 1 tab DAILY PO Last administered on 09:18; Admin Dose 1 TAB; Start 04/12/16 at 09:00 Metoprolol Tartrate (Lopressor) 12.5 mg BID PO Last administered on 04/22/16 09 :18; Admin Dose 12.5 MG; Start 04/12/16 at 12:30 Hydralazine HCl 10 mg 10 mg Q6H PRN IV SBP>170 Last administered on 04/19/16 22:46; Admin Dose 10 MG; Start 04/12/16 at 12:30 Ertapenem/Sodium Chloride (Invanz/NS) 100 ml @ 200 mls/hr Q24H IVPB Last administered on 04/21/16 16:28; Admin Dose 200 MLS/HR; Start 04/13/16 at 17:00 Lorazepam 1 mg 1 mg Q6H PRN IV AGITATION/ANXIETY Last administered on 05:16; Admin Dose 1 MG; Start 04/13/16 at 19:00 Dextrose/Sodium Chloride (D5-NS) 1,000 ml @ 75 mls/hr [id number] IV Last administered on 04/22/16 11:53; Admin Dose 75 MLS/HR; Start 04/17/16 at 11:30 Famotidine 20 mg 20 mg Q12 GTB Last administered on 04/22/16 09:18; Admin Dose 20 MG; Start 04/19/16 at 21:00 Ferric Sodium Gluconate Complex/ Sodium Chloride (Ferrlecit/NS) 110 ml @ 110 mls/hr Q24H IVPB Last administered on 04/22/16 10:55; Admin Dose 110 MLS/HR; Start 04/22/16 at 10:30; Stop 04/26/16 at 11:29 JESI MONTEMAYOR M.D. Apr 22, 2016 12:58
--- NOTE | 2016-04-22 13:34 | PN ---
DATE: 04/22/2016 PHYSICAL EXAMINATION: VITAL SIGNS: Mr. Ford is stable this morning. Temperature 97, pulse 69, blood pressure 151/99, O2 saturation 96% on 8 liters via tracheostomy. NECK: Trach site clean and intact. CARDIAC: S1, S2, no added sounds or murmurs. CHEST: Diminished air entry bilaterally. ABDOMEN: Soft, nontender. No guarding or rebound. EXTREMITIES: No cyanosis, clubbing, edema. NEUROLOGIC: Generalized weakness. LABORATORY DATA: White count 4.3, hemoglobin 7.6, platelets of 188, BUN 13, creatinine 0.58. IMPRESSION AND PLAN: 1. Chronic respiratory failure, tracheostomy stable. 2. Status post ____ bacteria. 3. Left lower lobe pneumonia. 4. Paraplegia. PLAN: 1. Continue antibiotics per ID post-PICC line placement. 2. Continue aspiration precautions. 3. Supplemental O2. 4. Bronchodilators. 5. Discharge planning okay from pulmonary standpoint after transfusion of 1 unit packed red blood cells. Dictated By: MARISOL STEVENS/DAVID Conf#: [id number] DID#: [id number]
[2016-04-22 17:25] LABS: ALBUMIN 2.5 g/dL (3.8-4.8)
[2016-04-22] MEDS ORDERED: SOD CHLORIDE 0.9% 100 ML ONE (17:58)
[2016-04-22] MEDS: ERTAPENEM SODIUM 1 GM in SOD CHLORIDE 0.9% 100 ML IVPB SCH (18:00)
[2016-04-22] MEDS: SENNA TAB GTB SCH (20:43)
[2016-04-22] MEDS: QUETIAPINE 100 MG TAB GTB SCH (20:43)
[2016-04-23] MEDS: LORAZEPAM 0.5 MG TAB GTB SCH ×6 (00:53→18:00)
[2016-04-23] MEDS: ALBUTEROL/IPRATROPIUM (NEB) 3 ML AMP INH SCH ×4 (01:38→19:46)
[2016-04-23] MEDS: DEXTROSE 5%-0.9% NACL 1,000 ML IV SCH ×3 (02:05→16:42)
[2016-04-23 05:58] LABS: ADD SCAN DIFF NO
[2016-04-23 06:01] LABS: BASOPHILS % 0.4 % (0.0-2.0); EOSINOPHILS # 0.1 10^3/ul (0.0-0.5); EOSINOPHILS % 2.3 % (0.0-7.0); HEMATOCRIT 26.2 % (42.0-52.0); HEMOGLOBIN 7.8 g/dl (14.0-18.0); LYMPHOCYTES % 21.3 % (15.0-51.0); MEAN CORPUSCULAR HEMOGLOBIN 26.6 pg (29.0-33.0); MEAN CORPUSCULAR HGB CONC 29.8 g/dl (32.0-37.0); MEAN CORPUSCULAR VOLUME 89.4 fl (82.0-101.0); MEAN PLATELET VOLUME 10.9 fl (7.4-10.4); MONOCYTE # 0.7 10^3/ul (0.3-0.9); NEUTROPHILS % 61.6 % (39.0-77.0); PLATELET COUNT 189 10^3/UL (140-415); RED BLOOD COUNT 2.93 10^6/ul (4.70-6.10); RED CELL DISTRIBUTION WIDTH 18.3 % (11.5-14.5); WHITE BLOOD COUNT 4.8 10^3/ul (4.8-10.8)
[2016-04-23 06:52] LABS: POTASSIUM 3.9 mmol/L (3.5-5.1)
[2016-04-23 06:55] LABS: CREATININE 0.53 mg/dl (0.61-1.24)
[2016-04-23 06:56] LABS: CALCIUM 8.2 mg/dl (8.4-10.2)
[2016-04-23 07:20] VITALS: BP 116/64; RESP 20
[2016-04-23] MEDS: CHLORHEXIDINE GLUCONATE 15 ML UD CUP MM SCH ×2 (10:19→20:38)
[2016-04-23] MEDS: FERROUS SULFATE 60 MG/ML 5ML CUP GTB SCH ×2 (10:19→20:38)
[2016-04-23] MEDS: THIAMINE 100 MG TAB GTB SCH (10:19)
[2016-04-23] MEDS: LACTULOSE 30ML CUP GTB SCH (10:19)
[2016-04-23] MEDS: MULTIVITAMINS/MINERALS TAB PO SCH (10:19)
[2016-04-23] MEDS: ASCORBIC ACID 500 MG TAB GTB SCH (10:20)
[2016-04-23] MEDS: METOPROLOL 25 MG TAB PO SCH ×2 (10:20→20:39)
[2016-04-23] MEDS: CALCIUM CARBONATE 500 MG CHEW TAB GTB SCH (10:20)
[2016-04-23] MEDS: FAMOTIDINE 20 MG TAB GTB SCH ×2 (10:20→20:38)
[2016-04-23] MEDS: QUETIAPINE 25 MG TAB GTB SCH ×3 (10:21→17:40)
[2016-04-23] MEDS: SOD FERRIC GLUC COMPLX 125 MG in SOD CHLORIDE 0.9% 100 ML IVPB SCH (10:21)
--- NOTE | 2016-04-23 10:38 | PN ---
DATE: 04/23/2016 SUBJECTIVE: Mariama Frod remains stable this morning. No new events. PHYSICAL EXAMINATION: VITAL SIGNS: Temperature 98, pulse 70, blood pressure 116/64, O2 saturation 96% on 35% cool aerosol . NECK: Trach site clean and intact. CARDIAC: S1, S2, no added sounds or murmurs. CHEST: Diminished air entry bilaterally. No rales or wheezes. ABDOMEN: Soft, nontender. No guarding or rebound. EXTREMITIES: No cyanosis, clubbing. No edema. NEUROLOGIC: Generalized weakness. LABORATORY DATA: White count 4.8, hemoglobin 7.8, platelets within normal limits. Chemistry within normal limits. IMPRESSION AND PLAN: 1. Chronic respiratory failure, currently stable. 2. Anemia. The patient currently declining transfusion. 3. Status post left lower lobe pneumonia. 4. History of paraplegia. PLAN: 1. Transfuse packed red blood cells if patient agreeable. 2. Speech therapy evaluation for PMV trials. 3. Consider transfer back to nursing home facility again. Dictated By: MARISOL STEVENS/DAVID Conf#: [id number] DID#: [id number]
--- NOTE | 2016-04-23 11:11 | CONS ---
Date/Time of Note Date/Time of Note DATE: 04/23/16 TIME: 11:10 Assessment/Plan Assessment/Plan Chief Complaint/Hosp Course SUBJECTIVE: No acute events overnight. Lying comfortably in bed. No fevers. MICROBIOLOGY: Blood and urine cultures on admission grew E. coli ESBL. Repeat blood cultures negative. ANTIMICROBIALS: Invanz. INDWELLINGS: Trach, PEG, Rae, PICC PHYSICAL EXAMINATION: GENERAL: Chronically ill-appearing, elderly man who is lying comfortably in bed. HEENT: Head atraumatic, normocephalic. Sclerae anicteric. Buccal mucosa dry. NECK: Supple. Tracheostomy present. CHEST: Rise symmetrical. Breath sounds diminished to bases with scattered crackles. HEART: S1, S2. ABDOMEN: Soft. Bowel sounds present. EXTREMITIES: No cyanosis. ASSESSMENT: 1. S/p sepsis with Escherichia coli extended-spectrum beta-lactamase bacteremia secondary to #2. 2. Escherichia coli extended-spectrum beta-lactamase urinary tract infection. 3. Healthcare-associated pneumonia. 4. Chronic respiratory failure. 5. History of schizoaffective disorder. 6. Dementia. 7. Benign prostatic hypertrophy. PLAN: Clinically unchanged. Continue Invanz for 3 more days for bacteremia, hematology/pulmonary rec-s noted, bld products prn [facility] staff Problems: Consultation Date/Type/Reason Admit Date/Time Apr 11, 2016 at 22:13 Initial Consult Date 04/12/16 Type of Consultation: id Referring Provider: ANNETTA AGUILAR MD Exam/Review of Systems Vital Signs Vitals Vital Signs Date Time Temp Pulse Resp B/P Pulse Ox O2 Delivery O2 Flow Rate FiO2 04/23/16 08:09 70 18 98 Aerosol 8.0 35 T Tube 04/23/16 07:20 97.6 116/64 Intake and Output 04/22/16 04/22/16 04/23/16 15:00 23:00 07:00 Intake Total 810 ml 1220 ml 1585 ml Balance 810 ml 1220 ml 1585 ml Results Result Diagram: 04/23/16 0530 04/23/16 0530 Results 24 hrs Laboratory Tests Test 04/23/16 05:30 Anion Gap 8 Basophils # 0.0 Basophils % 0.4 Blood Urea Nitrogen 11 Calcium Level 8.2 L Carbon Dioxide Level 35 H Chloride Level 98 Creatinine 0.53 L Eosinophils # 0.1 Eosinophils % 2.3 Glucose Level 110 Hematocrit 26.2 L Hemoglobin 7.8 L Lymphocytes # 1.0 Lymphocytes % 21.3 Mean Corpuscular Hemoglobin 26.6 L Mean Corpuscular Hemoglobin Concent 29.8 L Mean Corpuscular Volume 89.4 Mean Platelet Volume 10.9 H Monocytes # 0.7 Monocytes % 14.0 H Neutrophils # 3.0 Neutrophils % 61.6 Nucleated Red Blood Cells # 0.0 Nucleated Red Blood Cells % 0.0 Platelet Count 189 Potassium Level 3.9 Red Blood Count 2.93 L Red Cell Distribution Width 18.3 H Sodium Level 137 White Blood Count 4.8 Medications Medications Current Medications Ondansetron HCl (Zofran Inj) 4 mg Q6H PRN IV NAUSEA AND/OR VOMITING; Start at 22:30 Acetaminophen (Tylenol Tab) 650 mg Q6H PRN PO PAIN LEVEL 1-3 OR FEVER; Start at 22:30 Morphine Sulfate (morphine) 2 mg Q4H PRN IV PAIN LEVEL 7-10 Last administered on 04/22/16 09:23; Admin Dose 2 MG; Start 04/11/16 at 22:30 Ascorbic Acid (Vitamin C) 500 mg DAILY GTB Last administered on 04/23/16 10:20 ; Admin Dose 500 MG; Start 04/12/16 at 09:00 Bisacodyl (Dulcolax) 10 mg DAILY PRN PO CONSTIPATION; Start 04/11/16 at 22:30 Chlorhexidine Gluconate (Peridex) 15 ml BID MM Last administered on 04/23/16 10 :19; Admin Dose 15 ML; Start 04/12/16 at 09:00 Ferrous Sulfate (Feosol Liquid Cup) 300 mg BID GTB Last administered on 10:19; Admin Dose 300 MG; Start 04/12/16 at 09:00 Acetaminophen/ Hydrocodone Bitart ([place] (5/325)) 1 tab Q4 PRN GTB PAIN LEVEL 6 -10; Start 04/11/16 at 22:30 Lactulose (Enulose) 20 gm DAILY GTB Last administered on 04/23/16 10:19; Admin Dose 20 GM; Start 04/12/16 at 09:00 Quetiapine Fumarate (Seroquel) 25 mg BID@ GTB Last administered on 10:21; Admin Dose 25 MG; Start 04/12/16 at 09:00 Quetiapine Fumarate (Seroquel) 200 mg HS GTB Last administered on 04/22/16 20: 43; Admin Dose 200 MG; Start 04/12/16 at 21:00 Senna (Senokot) 1 tab QHS GTB Last administered on 04/22/16 20:43; Admin Dose 1 TAB; Start 04/12/16 at 21:00 Sodium Biphosphate/ Sodium Phosphate (Fleet Enema Pediatric) 66.6 ml DAILY PRN [place] CONSTIPATION; Start 04/11/16 at 22:30 Thiamine HCl (Vitamin B1) 100 mg DAILY GTB Last administered on 04/23/16 10:19 ; Admin Dose 100 MG; Start 04/12/16 at 09:00 Calcium Carbonate (Tums) 500 mg DAILY GTB Last administered on 04/23/16 10:20; Admin Dose 500 MG; Start 04/12/16 at 09:00 Multivitamins/ Minerals (Theragran-M) 1 tab DAILY PO Last administered on 10:19; Admin Dose 1 TAB; Start 04/12/16 at 09:00 Metoprolol Tartrate (Lopressor) 12.5 mg BID PO Last administered on 04/23/16 10 :20; Admin Dose 12.5 MG; Start 04/12/16 at 12:30 Hydralazine HCl 10 mg 10 mg Q6H PRN IV SBP>170 Last administered on 04/19/16 22:46; Admin Dose 10 MG; Start 04/12/16 at 12:30 Ertapenem/Sodium Chloride (Invanz/NS) 100 ml @ 200 mls/hr Q24H IVPB Last administered on 04/22/16 18:00; Admin Dose 200 MLS/HR; Start 04/13/16 at 17:00 Lorazepam 1 mg 1 mg Q6H PRN IV AGITATION/ANXIETY Last administered on 05:16; Admin Dose 1 MG; Start 04/13/16 at 19:00 Dextrose/Sodium Chloride (D5-NS) 1,000 ml @ 75 mls/hr [id number] IV Last administered on 04/23/16 02:05; Admin Dose 75 MLS/HR; Start 04/17/16 at 11:30 Famotidine 20 mg 20 mg Q12 GTB Last administered on 04/23/16 10:20; Admin Dose 20 MG; Start 04/19/16 at 21:00 Ferric Sodium Gluconate Complex/ Sodium Chloride (Ferrlecit/NS) 110 ml @ 110 mls/hr Q24H IVPB Last administered on 04/23/16 10:21; Admin Dose 110 MLS/HR; Start 04/22/16 at 10:30; Stop 04/26/16 at 11:29 Lorazepam (Ativan) 1 mg Q6 GTB Last administered on 04/23/16 05:58; Admin Dose 1 MG; Start 04/23/16 at 00:00 MARK LONG NP Apr 23, 2016 11:11
--- NOTE | 2016-04-23 12:12 | CONS ---
Date/Time of Note Date/Time of Note DATE: 04/23/16 TIME: 12:08 Assessment/Plan Assessment/Plan Chief Complaint/Hosp Course 65 up male with acute hypoxic respiratory failure being admitted for sepsis secondary to ESBL bacteremia. Pt has a worsening normocytic anemia that is likely secondary to his underlying sepsis and antibiotic use. Anemia panel does also reveal evidence of anemia of chronic inflammation as well as iron deficiency. No evidence of Vit b12 nor folate deficiency. Low retic count does indicate the bone marrow is not appropriately responding likely from the overlying sepsis. Normal LDH and haptoglobin makes hemolysis unlikely -will f/u erythropoietin level as this will help us determine if patient would benefit from procrit -given Hg is less than 8 will 1 unit of PRBC ordered but patient refused -continue treatment of underlying sepsis with current antibiotics -IV iron started, Ferrlecit for 5 days total Approximately 40 min were spent at patient's bedside and in coordination of his care Problems: Consultation Date/Type/Reason Admit Date/Time Apr 11, 2016 at 22:13 Initial Consult Date 04/21/16 Type of Consultation: Hematology Reason for Consultation anemia Referring Provider: ANNETTA AGUILAR MD 24 HR Interval Summary Free Text/Dictation patient refuse PRBC transfusion Exam/Review of Systems Vital Signs Vitals Vital Signs Date Time Temp Pulse Resp B/P Pulse Ox O2 Delivery O2 Flow Rate FiO2 04/23/16 08:09 70 18 98 Aerosol 8.0 35 T Tube 04/23/16 07:20 97.6 116/64 Intake and Output 04/22/16 04/22/16 04/23/16 15:00 23:00 07:00 Intake Total 810 ml 1220 ml 1585 ml Balance 810 ml 1220 ml 1585 ml Exam Constitutional: alert, oriented Head: atraumatic, normocephalic ENMT: nl external ears & nose Neck: other (trach in place) Respiratory: clear to auscultation, normal air movement Cardiovascular: regular rate and rhythm Gastrointestinal: soft Musculoskeletal: nl extremities to inspection, nl gait and stance Extremities: normal pulses Results Result Diagram: 04/23/16 0530 04/23/16 0530 Results 24 hrs Laboratory Tests Test 04/23/16 05:30 Anion Gap 8 Basophils # 0.0 Basophils % 0.4 Blood Urea Nitrogen 11 Calcium Level 8.2 L Carbon Dioxide Level 35 H Chloride Level 98 Creatinine 0.53 L Eosinophils # 0.1 Eosinophils % 2.3 Glucose Level 110 Hematocrit 26.2 L Hemoglobin 7.8 L Lymphocytes # 1.0 Lymphocytes % 21.3 Mean Corpuscular Hemoglobin 26.6 L Mean Corpuscular Hemoglobin Concent 29.8 L Mean Corpuscular Volume 89.4 Mean Platelet Volume 10.9 H Monocytes # 0.7 Monocytes % 14.0 H Neutrophils # 3.0 Neutrophils % 61.6 Nucleated Red Blood Cells # 0.0 Nucleated Red Blood Cells % 0.0 Platelet Count 189 Potassium Level 3.9 Red Blood Count 2.93 L Red Cell Distribution Width 18.3 H Sodium Level 137 White Blood Count 4.8 Medications Medications Current Medications Ondansetron HCl (Zofran Inj) 4 mg Q6H PRN IV NAUSEA AND/OR VOMITING; Start at 22:30 Acetaminophen (Tylenol Tab) 650 mg Q6H PRN PO PAIN LEVEL 1-3 OR FEVER; Start at 22:30 Morphine Sulfate (morphine) 2 mg Q4H PRN IV PAIN LEVEL 7-10 Last administered on 04/22/16 09:23; Admin Dose 2 MG; Start 04/11/16 at 22:30 Ascorbic Acid (Vitamin C) 500 mg DAILY GTB Last administered on 04/23/16 10:20 ; Admin Dose 500 MG; Start 04/12/16 at 09:00 Bisacodyl (Dulcolax) 10 mg DAILY PRN PO CONSTIPATION; Start 04/11/16 at 22:30 Chlorhexidine Gluconate (Peridex) 15 ml BID MM Last administered on 04/23/16 10 :19; Admin Dose 15 ML; Start 04/12/16 at 09:00 Ferrous Sulfate (Feosol Liquid Cup) 300 mg BID GTB Last administered on 10:19; Admin Dose 300 MG; Start 04/12/16 at 09:00 Acetaminophen/ Hydrocodone Bitart ([place] (5/325)) 1 tab Q4 PRN GTB PAIN LEVEL 6 -10; Start 04/11/16 at 22:30 Lactulose (Enulose) 20 gm DAILY GTB Last administered on 04/23/16 10:19; Admin Dose 20 GM; Start 04/12/16 at 09:00 Quetiapine Fumarate (Seroquel) 25 mg BID@09,17 GTB Last administered on 10:21; Admin Dose 25 MG; Start 04/12/16 at 09:00 Quetiapine Fumarate (Seroquel) 200 mg HS GTB Last administered on 04/22/16 20: 43; Admin Dose 200 MG; Start 04/12/16 at 21:00 Senna (Senokot) 1 tab QHS GTB Last administered on 04/22/16 20:43; Admin Dose 1 TAB; Start 04/12/16 at 21:00 Sodium Biphosphate/ Sodium Phosphate (Fleet Enema Pediatric) 66.6 ml DAILY PRN [place] CONSTIPATION; Start 04/11/16 at 22:30 Thiamine HCl (Vitamin B1) 100 mg DAILY GTB Last administered on 04/23/16 10:19 ; Admin Dose 100 MG; Start 04/12/16 at 09:00 Calcium Carbonate (Tums) 500 mg DAILY GTB Last administered on 04/23/16 10:20; Admin Dose 500 MG; Start 04/12/16 at 09:00 Multivitamins/ Minerals (Theragran-M) 1 tab DAILY PO Last administered on 10:19; Admin Dose 1 TAB; Start 04/12/16 at 09:00 Metoprolol Tartrate (Lopressor) 12.5 mg BID PO Last administered on 04/23/16 10 :20; Admin Dose 12.5 MG; Start 04/12/16 at 12:30 Hydralazine HCl 10 mg 10 mg Q6H PRN IV SBP>170 Last administered on 04/19/16 22:46; Admin Dose 10 MG; Start 04/12/16 at 12:30 Ertapenem/Sodium Chloride (Invanz/NS) 100 ml @ 200 mls/hr Q24H IVPB Last administered on 04/22/16 18:00; Admin Dose 200 MLS/HR; Start 04/13/16 at 17:00 Lorazepam 1 mg 1 mg Q6H PRN IV AGITATION/ANXIETY Last administered on 05:16; Admin Dose 1 MG; Start 04/13/16 at 19:00 Dextrose/Sodium Chloride (D5-NS) 1,000 ml @ 75 mls/hr [id number] IV Last administered on 04/23/16 02:05; Admin Dose 75 MLS/HR; Start 04/17/16 at 11:30 Famotidine 20 mg 20 mg Q12 GTB Last administered on 04/23/16 10:20; Admin Dose 20 MG; Start 04/19/16 at 21:00 Ferric Sodium Gluconate Complex/ Sodium Chloride (Ferrlecit/NS) 110 ml @ 110 mls/hr Q24H IVPB Last administered on 04/23/16 10:21; Admin Dose 110 MLS/HR; Start 04/22/16 at 10:30; Stop 04/26/16 at 11:29 Lorazepam (Ativan) 1 mg Q6 GTB Last administered on 04/23/16 05:58; Admin Dose 1 MG; Start 04/23/16 at 00:00 JESI MONTEMAYOR M.D. Apr 23, 2016 12:11
[2016-04-23] MEDS: ONDANSETRON 4 MG INJ IV PRN (12:31)
[2016-04-23] MEDS: ERTAPENEM SODIUM 1 GM in SOD CHLORIDE 0.9% 100 ML IVPB SCH (17:40)
--- NOTE | 2016-04-23 18:06 | PN ---
Date/Time of Note Date/Time of Note DATE: 04/23/16 TIME: 18:03 Assessment/Plan VTE Prophylaxis VTE Prophylaxis Intervention: SCD's Lines/Catheters IV Catheter Type (from [facility]): PICC Line Central line still needed: Yes Urinary Cath still in place: No Assessment/Plan Chief Complaint/Hosp Course ASSESSMENT AND PLAN: - Acute hypoxic respiratory failure. Dr. Anderson is following in pulmonology consultation. Continue ventilatory support and bronchodilators. - Possible healthcare-acquired left lower lung pneumonia versus aspiration. Continue antibiotics per ID. Dr. Rojas is following an infection disease consultation. - E. coli ESBL urinary tract infection. Continue Ertapenem. - Sepsis with Ecoli ESBL bacteremia 2 UTI. - Normocytic anemia. Dr Gaona is following in hematology consultation. - Dysphagia, with G-tube. - History of chronic respiratory failure with tracheostomy. - Benign prostatic hypertrophy. - Schizoaffective disorder. Continue Seroquel and Ativan as needed for agitation. Continue Lovenox for deep venous thrombosis prophylaxis and Pepcid for peptic ulcer disease prophylaxis. Further recommendations based on clinical course. Plan of care discussed with Dr. Colunga. Problems: Subjective 24 Hr Interval Summary Free Text/Dictation Patient is comfortable on cool aerosol mist via tracheostomy, refused blood transfusion, tolerates G-tube feeding well. Exam/Review of Systems Vital Signs Vitals Vital Signs Date Time Temp Pulse Resp B/P Pulse Ox O2 Delivery O2 Flow Rate FiO2 04/23/16 13:37 77 18 99 Aerosol 8.0 35 T Tube 04/23/16 07:20 97.6 116/64 Intake and Output 04/22/16 04/22/16 04/23/16 14:59 22:59 06:59 Intake Total 810 ml 1220 ml 1585 ml Balance 810 ml 1220 ml 1585 ml Exam GENERAL: A well-developed, cachectic gentleman, currently is awake, alert, follows immediate commands, otherwise confused. HEENT: Head is atraumatic, normocephalic. LYDIA. NECK: Supple, with tracheostomy at the base of the neck, with a moderate amount of secretions, no bleeding. LUNGS: Diminished at the bases. Patient has scattered severe rhonchi bilaterally. CARDIOVASCULAR: Normal S1, S2. No murmurs, gallops, clicks, rubs noted. ABDOMEN: Flat, soft, nondistended, nontender. Bowel sounds present. Patient has a G-tube with intact stoma. EXTREMITIES: Contractured. There is no edema, clubbing, cyanosis. Pulses equal bilaterally, 2+. SKIN: There is no rash, petechiae noted. NEUROLOGIC: Patient is awake, alert. Results Result Diagram: 04/23/16 0530 04/23/16 0530 Results 24 hrs Laboratory Tests Test 04/23/16 05:30 Anion Gap 8 Basophils # 0.0 Basophils % 0.4 Blood Urea Nitrogen 11 Calcium Level 8.2 L Carbon Dioxide Level 35 H Chloride Level 98 Creatinine 0.53 L Eosinophils # 0.1 Eosinophils % 2.3 Glucose Level 110 Hematocrit 26.2 L Hemoglobin 7.8 L Lymphocytes # 1.0 Lymphocytes % 21.3 Mean Corpuscular Hemoglobin 26.6 L Mean Corpuscular Hemoglobin Concent 29.8 L Mean Corpuscular Volume 89.4 Mean Platelet Volume 10.9 H Monocytes # 0.7 Monocytes % 14.0 H Neutrophils # 3.0 Neutrophils % 61.6 Nucleated Red Blood Cells # 0.0 Nucleated Red Blood Cells % 0.0 Platelet Count 189 Potassium Level 3.9 Red Blood Count 2.93 L Red Cell Distribution Width 18.3 H Sodium Level 137 White Blood Count 4.8 Medications Medications Current Medications Ondansetron HCl (Zofran Inj) 4 mg Q6H PRN IV NAUSEA AND/OR VOMITING Last administered on 04/23/16 12:31; Admin Dose 4 MG; Start 04/11/16 at 22:30 Acetaminophen (Tylenol Tab) 650 mg Q6H PRN PO PAIN LEVEL 1-3 OR FEVER; Start at 22:30 Morphine Sulfate (morphine) 2 mg Q4H PRN IV PAIN LEVEL 7-10 Last administered on 04/22/16 09:23; Admin Dose 2 MG; Start 04/11/16 at 22:30 Ascorbic Acid (Vitamin C) 500 mg DAILY GTB Last administered on 04/23/16 10:20 ; Admin Dose 500 MG; Start 04/12/16 at 09:00 Bisacodyl (Dulcolax) 10 mg DAILY PRN PO CONSTIPATION; Start 04/11/16 at 22:30 Chlorhexidine Gluconate (Peridex) 15 ml BID MM Last administered on 04/23/16 10 :19; Admin Dose 15 ML; Start 04/12/16 at 09:00 Ferrous Sulfate (Feosol Liquid Cup) 300 mg BID GTB Last administered on 10:19; Admin Dose 300 MG; Start 04/12/16 at 09:00 Acetaminophen/ Hydrocodone Bitart ([place] (5/325)) 1 tab Q4 PRN GTB PAIN LEVEL 6 -10; Start 04/11/16 at 22:30 Lactulose (Enulose) 20 gm DAILY GTB Last administered on 04/23/16 10:19; Admin Dose 20 GM; Start 04/12/16 at 09:00 Quetiapine Fumarate (Seroquel) 25 mg BID@ GTB Last administered on 17:40; Admin Dose 25 MG; Start 04/12/16 at 09:00 Quetiapine Fumarate (Seroquel) 200 mg HS GTB Last administered on 04/22/16 20: 43; Admin Dose 200 MG; Start 04/12/16 at 21:00 Senna (Senokot) 1 tab QHS GTB Last administered on 04/22/16 20:43; Admin Dose 1 TAB; Start 04/12/16 at 21:00 Sodium Biphosphate/ Sodium Phosphate (Fleet Enema Pediatric) 66.6 ml DAILY PRN [place] CONSTIPATION; Start 04/11/16 at 22:30 Thiamine HCl (Vitamin B1) 100 mg DAILY GTB Last administered on 04/23/16 10:19 ; Admin Dose 100 MG; Start 04/12/16 at 09:00 Calcium Carbonate (Tums) 500 mg DAILY GTB Last administered on 04/23/16 10:20; Admin Dose 500 MG; Start 04/12/16 at 09:00 Multivitamins/ Minerals (Theragran-M) 1 tab DAILY PO Last administered on 10:19; Admin Dose 1 TAB; Start 04/12/16 at 09:00 Metoprolol Tartrate (Lopressor) 12.5 mg BID PO Last administered on 04/23/16 10 :20; Admin Dose 12.5 MG; Start 04/12/16 at 12:30 Hydralazine HCl 10 mg 10 mg Q6H PRN IV SBP>170 Last administered on 04/19/16 22:46; Admin Dose 10 MG; Start 04/12/16 at 12:30 Ertapenem/Sodium Chloride (Invanz/NS) 100 ml @ 200 mls/hr Q24H IVPB Last administered on 04/23/16 17:40; Admin Dose 200 MLS/HR; Start 04/13/16 at 17:00 Lorazepam 1 mg 1 mg Q6H PRN IV AGITATION/ANXIETY Last administered on 05:16; Admin Dose 1 MG; Start 04/13/16 at 19:00 Dextrose/Sodium Chloride (D5-NS) 1,000 ml @ 75 mls/hr [id number] IV Last administered on 04/23/16 16:42; Admin Dose 75 MLS/HR; Start 04/17/16 at 11:30 Famotidine 20 mg 20 mg Q12 GTB Last administered on 04/23/16 10:20; Admin Dose 20 MG; Start 04/19/16 at 21:00 Ferric Sodium Gluconate Complex/ Sodium Chloride (Ferrlecit/NS) 110 ml @ 110 mls/hr Q24H IVPB Last administered on 04/23/16 10:21; Admin Dose 110 MLS/HR; Start 04/22/16 at 10:30; Stop 04/26/16 at 11:29 Lorazepam (Ativan) 1 mg Q6 GTB Last administered on 04/23/16 17:40; Admin Dose 1 MG; Start 04/23/16 at 00:00 SHELBY BUNCH Apr 23, 2016 18:06
[2016-04-23] MEDS: LORAZEPAM 2 MG INJ IV PRN (18:16)
[2016-04-23] MEDS: QUETIAPINE 100 MG TAB GTB SCH (20:39)
[2016-04-23] MEDS: SENNA TAB GTB SCH (20:39)
[2016-04-23 20:42] VITALS: BP 141/79; RESP 18
[2016-04-24] VITALS (7 sets, daily range): BP systolic 98–210; BP diastolic 61–102; PULSE 89–107; RESP 16–20
[2016-04-24] MEDS: ALBUTEROL/IPRATROPIUM (NEB) 3 ML AMP INH SCH ×4 (02:02→20:00)
[2016-04-24] MEDS: DEXTROSE 5%-0.9% NACL 1,000 ML IV SCH ×2 (04:43→09:42)
[2016-04-24] MEDS: LORAZEPAM 0.5 MG TAB GTB SCH ×4 (05:07→17:53)
[2016-04-24] MEDS: METOPROLOL 25 MG TAB PO SCH ×2 (09:00→21:09)
[2016-04-24] MEDS: LACTULOSE 30ML CUP GTB SCH (09:12)
[2016-04-24] MEDS: FERROUS SULFATE 60 MG/ML 5ML CUP GTB SCH ×2 (09:14→21:08)
[2016-04-24] MEDS: ASCORBIC ACID 500 MG TAB GTB SCH (09:15)
[2016-04-24] MEDS: THIAMINE 100 MG TAB GTB SCH (09:15)
[2016-04-24] MEDS: CALCIUM CARBONATE 500 MG CHEW TAB GTB SCH (09:15)
[2016-04-24] MEDS: FAMOTIDINE 20 MG TAB GTB SCH ×2 (09:15→21:25)
[2016-04-24] MEDS: CHLORHEXIDINE GLUCONATE 15 ML UD CUP MM SCH ×2 (09:16→21:09)
[2016-04-24] MEDS: QUETIAPINE 25 MG TAB GTB SCH ×2 (09:19→17:52)
[2016-04-24] MEDS: MULTIVITAMINS/MINERALS TAB PO SCH (09:19)
[2016-04-24] MEDS: SOD FERRIC GLUC COMPLX 125 MG in SOD CHLORIDE 0.9% 100 ML IVPB SCH (09:31)
[2016-04-24 10:53] LABS: ADD SCAN DIFF NO
[2016-04-24 10:58] LABS: BASOPHILS % 0.4 % (0.0-2.0); EOSINOPHILS # 0.1 10^3/ul (0.0-0.5); EOSINOPHILS % 4.9 % (0.0-7.0); HEMATOCRIT 24.9 % (42.0-52.0); HEMOGLOBIN 7.4 g/dl (14.0-18.0); LYMPHOCYTES # 0.9 10^3/ul (0.8-2.9); MEAN CORPUSCULAR HEMOGLOBIN 27.1 pg (29.0-33.0); MEAN CORPUSCULAR HGB CONC 29.7 g/dl (32.0-37.0); MEAN CORPUSCULAR VOLUME 91.2 fl (82.0-101.0); MEAN PLATELET VOLUME 10.3 fl (7.4-10.4); MONOCYTE # 0.4 10^3/ul (0.3-0.9); NEUTROPHIL # 1.2 10^3/ul (1.6-7.5); NEUTROPHILS % 46.3 % (39.0-77.0); PLATELET COUNT 155 10^3/UL (140-415); RED BLOOD COUNT 2.73 10^6/ul (4.70-6.10); WHITE BLOOD COUNT 2.7 10^3/ul (4.8-10.8)
[2016-04-24 11:07] LABS: CREATININE 0.35 mg/dl (0.61-1.24)
[2016-04-24 11:08] LABS: CALCIUM 6.8 mg/dl (8.4-10.2)
--- NOTE | 2016-04-24 11:43 | PN ---
Date/Time of Note Date/Time of Note DATE: 04/24/16 TIME: 11:42 Assessment/Plan VTE Prophylaxis VTE Prophylaxis Intervention: other Lines/Catheters IV C[facility]ter Type (from [facility]): PICC Line Central line still needed: Yes Urinary Cath still in place: No Assessment/Plan Chief Complaint/Hosp Course - Acute hypoxic respiratory failure. Dr. Anderson is following in pulmonology consultation. Continue ventilatory support and bronchodilators. - Possible healthcare-acquired left lower lung pneumonia versus aspiration. Continue antibiotics per ID. Dr. Rojas is following an infection disease consultation. - E. coli ESBL urinary tract infection. Continue Ertapenem. - Sepsis with Ecoli ESBL bacteremia 2 UTI. - Normocytic anemia. Dr Gaona is following in hematology consultation. - Dysphagia, with G-tube. - History of chronic respiratory failure with tracheostomy. - Benign prostatic hypertrophy. - Schizoaffective disorder. Continue Seroquel and Ativan as needed for agitation. Problems: Subjective 24 Hr Interval Summary Free Text/Dictation Patient has no complaints Exam/Review of Systems Vital Signs Vitals Vital Signs Date Time Temp Pulse Resp B/P Pulse Ox O2 Delivery O2 Flow Rate FiO2 04/24/16 08:23 64 18 98 Aerosol 8.0 35 04/24/16 08:05 98.4 98/61 Intake and Output 04/23/16 04/23/16 04/24/16 15:00 23:00 07:00 Intake Total 110 ml 1375 ml 1955 ml Balance 110 ml 1375 ml 1955 ml Exam Constitutional: well developed Head: atraumatic, normocephalic Neck: supple Respiratory: clear to auscultation Cardiovascular: regular rate and rhythm Gastrointestinal: non-tender, soft Results Result Diagram: 04/24/16 1026 04/24/16 1026 Results 24 hrs Laboratory Tests Test 04/24/16 10:26 Anion Gap 9 Basophils # 0.0 Basophils % 0.4 Blood Urea Nitrogen 7 Calcium Level 6.8 L Carbon Dioxide Level 30 Chloride Level 103 Creatinine 0.35 L Eosinophils # 0.1 Eosinophils % 4.9 Glucose Level 93 Hematocrit 24.9 L Hemoglobin 7.4 L Lymphocytes # 0.9 Lymphocytes % 34.0 Mean Corpuscular Hemoglobin 27.1 L Mean Corpuscular Hemoglobin Concent 29.7 L Mean Corpuscular Volume 91.2 Mean Platelet Volume 10.3 Monocytes # 0.4 Monocytes % 14.0 H Neutrophils # 1.2 L Neutrophils % 46.3 Nucleated Red Blood Cells # 0.0 Nucleated Red Blood Cells % 0.0 Platelet Count 155 Potassium Level 3.0 L Red Blood Count 2.73 L Red Cell Distribution Width 18.0 H Sodium Level 139 White Blood Count 2.7 #L Medications Medications Current Medications Ondansetron HCl (Zofran Inj) 4 mg Q6H PRN IV NAUSEA AND/OR VOMITING Last administered on 04/23/16 12:31; Admin Dose 4 MG; Start 04/11/16 at 22:30 Acetaminophen (Tylenol Tab) 650 mg Q6H PRN PO PAIN LEVEL 1-3 OR FEVER; Start at 22:30 Morphine Sulfate (morphine) 2 mg Q4H PRN IV PAIN LEVEL 7-10 Last administered on 04/22/16 09:23; Admin Dose 2 MG; Start 04/11/16 at 22:30 Ascorbic Acid (Vitamin C) 500 mg DAILY GTB Last administered on 04/24/16 09:15 ; Admin Dose 500 MG; Start 04/12/16 at 09:00 Bisacodyl (Dulcolax) 10 mg DAILY PRN PO CONSTIPATION; Start 04/11/16 at 22:30 Chlorhexidine Gluconate (Peridex) 15 ml BID MM Last administered on 04/24/16 09 :16; Admin Dose 15 ML; Start 04/12/16 at 09:00 Ferrous Sulfate (Feosol Liquid Cup) 300 mg BID GTB Last administered on 09:14; Admin Dose 300 MG; Start 04/12/16 at 09:00 Acetaminophen/ Hydrocodone Bitart ([place] (5/325)) 1 tab Q4 PRN GTB PAIN LEVEL 6 -10; Start 04/11/16 at 22:30 Lactulose (Enulose) 20 gm DAILY GTB Last administered on 04/24/16 09:12; Admin Dose 20 GM; Start 04/12/16 at 09:00 Quetiapine Fumarate (Seroquel) 25 mg BID@ GTB Last administered on 09:19; Admin Dose 25 MG; Start 04/12/16 at 09:00 Quetiapine Fumarate (Seroquel) 200 mg HS GTB Last administered on 04/23/16 20: 39; Admin Dose 200 MG; Start 04/12/16 at 21:00 Senna (Senokot) 1 tab QHS GTB Last administered on 04/23/16 20:39; Admin Dose 1 TAB; Start 04/12/16 at 21:00 Sodium Biphosphate/ Sodium Phosphate (Fleet Enema Pediatric) 66.6 ml DAILY PRN [place] CONSTIPATION; Start 04/11/16 at 22:30 Thiamine HCl (Vitamin B1) 100 mg DAILY GTB Last administered on 04/24/16 09:15 ; Admin Dose 100 MG; Start 04/12/16 at 09:00 Calcium Carbonate (Tums) 500 mg DAILY GTB Last administered on 04/24/16 09:15; Admin Dose 500 MG; Start 04/12/16 at 09:00 Multivitamins/ Minerals (Theragran-M) 1 tab DAILY PO Last administered on 09:19; Admin Dose 1 TAB; Start 04/12/16 at 09:00 Metoprolol Tartrate (Lopressor) 12.5 mg BID PO Last administered on 04/23/16 20 :39; Admin Dose 12.5 MG; Start 04/12/16 at 12:30 Hydralazine HCl 10 mg 10 mg Q6H PRN IV SBP>170 Last administered on 04/19/16 22:46; Admin Dose 10 MG; Start 04/12/16 at 12:30 Ertapenem/Sodium Chloride (Invanz/NS) 100 ml @ 200 mls/hr Q24H IVPB Last administered on 04/23/16 17:40; Admin Dose 200 MLS/HR; Start 04/13/16 at 17:00 Lorazepam 1 mg 1 mg Q6H PRN IV AGITATION/ANXIETY Last administered on 04/23/16 18:16; Admin Dose 1 MG; Start 04/13/16 at 19:00 Dextrose/Sodium Chloride (D5-NS) 1,000 ml @ 75 mls/hr [id number] IV Last administered on 04/24/16 09:42; Admin Dose 75 MLS/HR; Start 04/17/16 at 11:30 Famotidine 20 mg 20 mg Q12 GTB Last administered on 04/24/16 09:15; Admin Dose 20 MG; Start 04/19/16 at 21:00 Ferric Sodium Gluconate Complex/ Sodium Chloride (Ferrlecit/NS) 110 ml @ 110 mls/hr Q24H IVPB Last administered on 04/24/16 09:31; Admin Dose 110 MLS/HR; Start 04/22/16 at 10:30; Stop 04/26/16 at 11:29 Lorazepam (Ativan) 1 mg Q6 GTB Last administered on 04/23/16 05:58; Admin Dose 1 MG; Start 04/23/16 at 00:00 NEELAM RIBERA Apr 24, 2016 11:43
[2016-04-24] MEDS ORDERED: D5-NS + KCL 40 MEQ 1,000 ML IV SCH (12:00)
[2016-04-24] MEDS: D5-NS + KCL 40 MEQ 1,000 ML IV SCH (14:30)
--- NOTE | 2016-04-24 17:09 | CONS ---
Date/Time of Note Date/Time of Note DATE: 04/24/16 TIME: 17:08 Consult Date/Type/Reason Admit Date/Time Apr 11, 2016 at 22:13 Initial Consult Date 04/21/16 Type of Consultation: Pulm Ordering Provider: ANNETTA AGUILAR MD Subjective Remains on trach collar. No events. Objective Vital Signs Date Time Temp Pulse Resp B/P Pulse Ox O2 Delivery O2 Flow Rate FiO2 04/24/16 16:56 8.0 35 04/24/16 14:56 74 22 94 Aerosol 04/24/16 08:05 98.4 98/61 Intake and Output 04/23/16 04/23/16 04/24/16 15:00 23:00 07:00 Intake Total 110 ml 1375 ml 1955 ml Balance 110 ml 1375 ml 1955 ml HEENT: Neck supple; no JVD; no LAD CVS: RRR, S1 and S2 CHEST: Decreaaed BS at bases ABD: Soft, NT, + BS EXT: No c/c/e Results/Medications Result Diagram: 04/24/16 1026 04/24/16 1026 Results 24 hrs Laboratory Tests Test 04/24/16 10:26 Anion Gap 9 Basophils # 0.0 Basophils % 0.4 Blood Urea Nitrogen 7 Calcium Level 6.8 L Carbon Dioxide Level 30 Chloride Level 103 Creatinine 0.35 L Eosinophils # 0.1 Eosinophils % 4.9 Glucose Level 93 Hematocrit 24.9 L Hemoglobin 7.4 L Lymphocytes # 0.9 Lymphocytes % 34.0 Mean Corpuscular Hemoglobin 27.1 L Mean Corpuscular Hemoglobin Concent 29.7 L Mean Corpuscular Volume 91.2 Mean Platelet Volume 10.3 Monocytes # 0.4 Monocytes % 14.0 H Neutrophils # 1.2 L Neutrophils % 46.3 Nucleated Red Blood Cells # 0.0 Nucleated Red Blood Cells % 0.0 Platelet Count 155 Potassium Level 3.0 L Red Blood Count 2.73 L Red Cell Distribution Width 18.0 H Sodium Level 139 White Blood Count 2.7 #L Medications Current Medications Ondansetron HCl (Zofran Inj) 4 mg Q6H PRN IV NAUSEA AND/OR VOMITING Last administered on 04/23/16t 12:31; Admin Dose 4 MG; Start 04/11/16 at 22:30 Acetaminophen (Tylenol Tab) 650 mg Q6H PRN PO PAIN LEVEL 1-3 OR FEVER; Start at 22:30 Morphine Sulfate (morphine) 2 mg Q4H PRN IV PAIN LEVEL 7-10 Last administered on 04/22/16 09:23; Admin Dose 2 MG; Start 04/11/16 at 22:30 Ascorbic Acid (Vitamin C) 500 mg DAILY GTB Last administered on 04/24/16 09:15 ; Admin Dose 500 MG; Start 04/12/16 at 09:00 Bisacodyl (Dulcolax) 10 mg DAILY PRN PO CONSTIPATION; Start 04/11/16 at 22:30 Chlorhexidine Gluconate (Peridex) 15 ml BID MM Last administered on 04/24/16 09 :16; Admin Dose 15 ML; Start 04/12/16 at 09:00 Ferrous Sulfate (Feosol Liquid Cup) 300 mg BID GTB Last administered on 09:14; Admin Dose 300 MG; Start 04/12/16 at 09:00 Acetaminophen/ Hydrocodone Bitart ([place] (5/325)) 1 tab Q4 PRN GTB PAIN LEVEL 6 -10; Start 04/11/16 at 22:30 Lactulose (Enulose) 20 gm DAILY GTB Last administered on 04/24/16 09:12; Admin Dose 20 GM; Start 04/12/16 at 09:00 Quetiapine Fumarate (Seroquel) 25 mg BID@ GTB Last administered on 09:19; Admin Dose 25 MG; Start 04/12/16 at 09:00 Quetiapine Fumarate (Seroquel) 200 mg HS GTB Last administered on 04/23/16 20: 39; Admin Dose 200 MG; Start 04/12/16 at 21:00 Senna (Senokot) 1 tab QHS GTB Last administered on 04/23/16 20:39; Admin Dose 1 TAB; Start 04/12/16 at 21:00 Sodium Biphosphate/ Sodium Phosphate (Fleet Enema Pediatric) 66.6 ml DAILY PRN [place] CONSTIPATION; Start 04/11/16 at 22:30 Thiamine HCl (Vitamin B1) 100 mg DAILY GTB Last administered on 04/24/16 09:15 ; Admin Dose 100 MG; Start 04/12/16 at 09:00 Calcium Carbonate (Tums) 500 mg DAILY GTB Last administered on 04/24/16 09:15; Admin Dose 500 MG; Start 04/12/16 at 09:00 Multivitamins/ Minerals (Theragran-M) 1 tab DAILY PO Last administered on 09:19; Admin Dose 1 TAB; Start 04/12/16 at 09:00 Metoprolol Tartrate (Lopressor) 12.5 mg BID PO Last administered on 04/23/16 20 :39; Admin Dose 12.5 MG; Start 04/12/16 at 12:30 Hydralazine HCl 10 mg 10 mg Q6H PRN IV SBP>170 Last administered on 04/19/16 22:46; Admin Dose 10 MG; Start 04/12/16 at 12:30 Ertapenem/Sodium Chloride (Invanz/NS) 100 ml @ 200 mls/hr Q24H IVPB Last administered on 04/23/16 17:40; Admin Dose 200 MLS/HR; Start 04/13/16 at 17:00 Lorazepam (Ativan) 1 mg Q6H PRN IV AGITATION/ANXIETY Last administered on 18:16; Admin Dose 1 MG; Start 04/13/16 at 19:00 Famotidine 20 mg 20 mg Q12 GTB Last administered on 04/24/16 09:15; Admin Dose 20 MG; Start 04/19/16 at 21:00 Ferric Sodium Gluconate Complex/ Sodium Chloride (Ferrlecit/NS) 110 ml @ 110 mls/hr Q24H IVPB Last administered on 04/24/16 09:31; Admin Dose 110 MLS/HR; Start 04/22/16 at 10:30; Stop 04/26/16 at 11:29 Lorazepam 1 mg 1 mg Q6 GTB Last administered on 04/23/16 05:58; Admin Dose 1 MG ; Start 04/23/16 at 00:00 Potassium Chloride/Dextrose/ Sod Cl (D5-NS + KCl 40 Meq) 1,000 ml @ 75 mls/hr [id number] IV Last administered on 04/24/16 14:30; Admin Dose 75 MLS/HR; Start 04/24/16 at 12:54 Assessment/Plan Additional Assessment/Plan IMPRESSION: 1. Chronic respiratory failure s/p trach 2. Anemia 3. Status post left lower lobe pneumonia. 4. History of paraplegia. PLAN: 1. BD's/CPT 2. Speech therapy evaluation for PMV trials. 3. Am CXR JOSE CRUZ CIFUENTES MD Apr 24, 2016 17:09
[2016-04-24] MEDS: ERTAPENEM SODIUM 1 GM in SOD CHLORIDE 0.9% 100 ML IVPB SCH (17:53)
[2016-04-24] MEDS: hydrALAzine 20 MG INJ IV PRN (19:21)
[2016-04-24] MEDS: LORAZEPAM 2 MG INJ IV PRN (20:58)
[2016-04-24] MEDS: ONDANSETRON 4 MG INJ IV PRN (21:00)
[2016-04-24] MEDS: QUETIAPINE 100 MG TAB GTB SCH (21:08)
[2016-04-24] MEDS: SENNA TAB GTB SCH (21:09)
[2016-04-25] VITALS (11 sets, daily range): BP systolic 134–175; BP diastolic 72–96; PULSE 66–97; RESP 17–18
[2016-04-25] MEDS: ALBUTEROL/IPRATROPIUM (NEB) 3 ML AMP INH SCH ×6 (01:25→20:07)
[2016-04-25] MEDS: LORAZEPAM 0.5 MG TAB GTB SCH ×4 (05:31→17:08)
[2016-04-25] MEDS: D5-NS + KCL 40 MEQ 1,000 ML IV SCH (07:39)
--- NOTE | 2016-04-25 10:03 | RADRPT ---
PROCEDURE: XR Chest. CLINICAL INDICATION: Shortness of breath. TECHNIQUE: Single frontal view. COMPARISON: 04/21/2016. FINDINGS: The tracheostomy tube and left arm PICC line are in satisfactory position. There is consolidation t hroughout the right mid and lower lung zones, worse than seen previously. There is complete opacifi cation of the left hemithorax, new when compared with the prior study. There is elevation of the le ft hemidiaphragm. The heart size is indeterminate. There are bilateral pleural effusions. There is no pneumothorax. There is chronic deformity of the left shoulder. IMPRESSION: 1. Tracheostomy tube and left arm PICC line in satisfactory position. 2. Worse appearance of the right mid and lower lung zones. 3. Complete opacification of the left hemithorax, new when compared with the prior study. 4. Bilateral pleural effusions. 5. Chronic deformity of the left shoulder. RPTAT: QQ .Tyler Paula MD, MD Date Time Electronically viewed and signed by .Tyler Paula MD, MD on 04/25/2016 10:03 .R/
[2016-04-25] MEDS: hydrALAzine 20 MG INJ IV PRN ×3 (10:08→21:57)
[2016-04-25] MEDS: SOD FERRIC GLUC COMPLX 125 MG in SOD CHLORIDE 0.9% 100 ML IVPB SCH ×2 (10:30→12:55)
[2016-04-25] MEDS: FERROUS SULFATE 60 MG/ML 5ML CUP GTB SCH ×2 (11:04→21:00)
[2016-04-25] MEDS: LACTULOSE 30ML CUP GTB SCH (11:04)
[2016-04-25] MEDS: QUETIAPINE 25 MG TAB GTB SCH ×2 (11:05→16:53)
[2016-04-25] MEDS: FAMOTIDINE 20 MG TAB GTB SCH ×2 (11:05→21:00)
[2016-04-25] MEDS: ASCORBIC ACID 500 MG TAB GTB SCH (11:05)
[2016-04-25] MEDS: CALCIUM CARBONATE 500 MG CHEW TAB GTB SCH (11:05)
[2016-04-25] MEDS: THIAMINE 100 MG TAB GTB SCH (11:05)
[2016-04-25] MEDS: CHLORHEXIDINE GLUCONATE 15 ML UD CUP MM SCH ×2 (11:05→21:57)
[2016-04-25] MEDS: MULTIVITAMINS/MINERALS TAB PO SCH (11:06)
[2016-04-25] MEDS: METOPROLOL 25 MG TAB PO SCH ×2 (11:06→21:00)
[2016-04-25] MEDS: LORAZEPAM 2 MG INJ IV PRN ×3 (11:37→21:57)
[2016-04-25] MEDS: morphine 2 MG INJ IV PRN ×2 (12:56→17:04)
--- NOTE | 2016-04-25 13:06 | PN ---
Date/Time of Note Date/Time of Note DATE: 04/25/16 TIME: 13:06 Assessment/Plan VTE Prophylaxis VTE Prophylaxis Intervention: other Lines/Catheters IV Catheter Type (from [facility]): PICC Line Central line still needed: Yes Urinary Cath still in place: No Assessment/Plan Chief Complaint/Hosp Course - Acute hypoxic respiratory failure. Dr. Anderson is following in pulmonology consultation. Continue ventilatory support and bronchodilators. - Possible healthcare-acquired left lower lung pneumonia versus aspiration. Continue antibiotics per ID. Dr. Rojas is following an infection disease consultation. - E. coli ESBL urinary tract infection. Continue Ertapenem. - Sepsis with Ecoli ESBL bacteremia 2 UTI. - Normocytic anemia. Dr Gaona is following in hematology consultation. - Dysphagia, with G-tube. - History of chronic respiratory failure with tracheostomy. - Benign prostatic hypertrophy. - Schizoaffective disorder. Continue Seroquel and Ativan as needed for agitation. Problems: Subjective 24 Hr Interval Summary Free Text/Dictation Patient opens eye but nonverbal because of trach Exam/Review of Systems Vital Signs Vitals Vital Signs Date Time Temp Pulse Resp B/P Pulse Ox O2 Delivery O2 Flow Rate FiO2 04/25/16 12:00 96 28 94 Aerosol 10.0 40 T Tube 04/25/16 08:05 96.7 171/87 Intake and Output 04/24/16 04/24/16 04/25/16 15:00 23:00 07:00 Intake Total 625 ml 1165 ml 600 ml Balance 625 ml 1165 ml 600 ml Exam Constitutional: well developed Head: atraumatic, normocephalic Neck: supple Respiratory: diminished breath sounds Cardiovascular: regular rate and rhythm Gastrointestinal: non-tender, soft Results Result Diagram: 04/24/16 1026 04/24/16 1026 Medications Medications Current Medications Ondansetron HCl (Zofran Inj) 4 mg Q6H PRN IV NAUSEA AND/OR VOMITING Last administered on 04/24/16 21:00; Admin Dose 4 MG; Start 04/11/16 at 22:30 Acetaminophen (Tylenol Tab) 650 mg Q6H PRN PO PAIN LEVEL 1-3 OR FEVER; Start at 22:30 Morphine Sulfate (morphine) 2 mg Q4H PRN IV PAIN LEVEL 7-10 Last administered on 04/25/16 12:56; Admin Dose 2 MG; Start 04/11/16 at 22:30 Ascorbic Acid (Vitamin C) 500 mg DAILY GTB Last administered on 04/24/16 09:15 ; Admin Dose 500 MG; Start 04/12/16 at 09:00 Bisacodyl (Dulcolax) 10 mg DAILY PRN PO CONSTIPATION; Start 04/11/16 at 22:30 Chlorhexidine Gluconate (Peridex) 15 ml BID MM Last administered on 04/24/16 21 :09; Admin Dose 15 ML; Start 04/12/16 at 09:00 Ferrous Sulfate (Feosol Liquid Cup) 300 mg BID GTB Last administered on 21:08; Admin Dose 300 MG; Start 04/12/16 at 09:00 Acetaminophen/ Hydrocodone Bitart ([place] (5/325)) 1 tab Q4 PRN GTB PAIN LEVEL 6 -10; Start 04/11/16 at 22:30 Lactulose (Enulose) 20 gm DAILY GTB Last administered on 04/24/16 09:12; Admin Dose 20 GM; Start 04/12/16 at 09:00 Quetiapine Fumarate (Seroquel) 25 mg BID@ GTB Last administered on 17:52; Admin Dose 25 MG; Start 04/12/16 at 09:00 Quetiapine Fumarate (Seroquel) 200 mg HS GTB Last administered on 04/24/16 21: 08; Admin Dose 200 MG; Start 04/12/16 at 21:00 Senna (Senokot) 1 tab QHS GTB Last administered on 04/24/16 21:09; Admin Dose 1 TAB; Start 04/12/16 at 21:00 Sodium Biphosphate/ Sodium Phosphate (Fleet Enema Pediatric) 66.6 ml DAILY PRN [place] CONSTIPATION; Start 04/11/16 at 22:30 Thiamine HCl (Vitamin B1) 100 mg DAILY GTB Last administered on 04/24/16 09:15 ; Admin Dose 100 MG; Start 04/12/16 at 09:00 Calcium Carbonate (Tums) 500 mg DAILY GTB Last administered on 04/24/16 09:15; Admin Dose 500 MG; Start 04/12/16 at 09:00 Multivitamins/ Minerals (Theragran-M) 1 tab DAILY PO Last administered on 09:19; Admin Dose 1 TAB; Start 04/12/16 at 09:00 Metoprolol Tartrate (Lopressor) 12.5 mg BID PO Last administered on 04/24/16 21 :09; Admin Dose 12.5 MG; Start 04/12/16 at 12:30 Hydralazine HCl 10 mg 10 mg Q6H PRN IV SBP>170 Last administered on 04/25/16 10 :08; Admin Dose 10 MG; Start 04/12/16 at 12:30 Ertapenem/Sodium Chloride (Invanz/NS) 100 ml @ 200 mls/hr Q24H IVPB Last administered on 04/24/16 17:53; Admin Dose 200 MLS/HR; Start 04/13/16 at 17:00 Famotidine 20 mg 20 mg Q12 GTB Last administered on 04/24/16 21:25; Admin Dose 20 MG; Start 04/19/16 at 21:00 Ferric Sodium Gluconate Complex/ Sodium Chloride (Ferrlecit/NS) 110 ml @ 110 mls/hr Q24H IVPB Last administered on 04/25/16 12:55; Admin Dose 110 MLS/HR; Start 04/22/16 at 10:30; Stop 04/26/16 at 11:29 Lorazepam 1 mg 1 mg Q6 GTB Last administered on 04/25/16 05:31; Admin Dose 1 MG ; Start 04/23/16 at 00:00 Potassium Chloride/Dextrose/ Sod Cl (D5-NS + KCl 40 Meq) 1,000 ml @ 75 mls/hr [id number] IV Last administered on 04/24/16 14:30; Admin Dose 75 MLS/HR; Start 04/24/16 at 12:54 Lorazepam (Ativan) 1 mg Q4 PRN IV AGITATION/ANXIETY Last administered on 11:37; Admin Dose 1 MG; Start 04/24/16 at 21:00 Clonidine (Catapres) 0.1 mg Q6H PRN PO ELEVATED BLOOD PRESSURE; Start 04/24/16 at 23:30 NEELAM RIBERA 5, 2017 13:06
[2016-04-25 13:17] LABS: ADD SCAN DIFF NO
[2016-04-25 13:27] LABS: BASOPHILS % 0.4 % (0.0-2.0); EOSINOPHILS # 0.1 10^3/ul (0.0-0.5); EOSINOPHILS % 1.7 % (0.0-7.0); HEMATOCRIT 33.7 % (42.0-52.0); HEMOGLOBIN 10.3 g/dl (14.0-18.0); LYMPHOCYTES # 0.7 10^3/ul (0.8-2.9); MEAN CORPUSCULAR HEMOGLOBIN 27.2 pg (29.0-33.0); MEAN CORPUSCULAR HGB CONC 30.6 g/dl (32.0-37.0); MEAN CORPUSCULAR VOLUME 89.2 fl (82.0-101.0); MEAN PLATELET VOLUME 9.4 fl (7.4-10.4); MONOCYTE # 0.3 10^3/ul (0.3-0.9); MONOCYTES % 6.5 % (0.0-11.0); NEUTROPHIL # 3.7 10^3/ul (1.6-7.5); NEUTROPHILS % 76.6 % (39.0-77.0); PLATELET COUNT 180 10^3/UL (140-415); RED BLOOD COUNT 3.78 10^6/ul (4.70-6.10); RED CELL DISTRIBUTION WIDTH 17.2 % (11.5-14.5); WHITE BLOOD COUNT 4.8 10^3/ul (4.8-10.8)
[2016-04-25 13:29] LABS: ALBUMIN 2.5 g/dl (3.3-4.9); POTASSIUM 4.5 mmol/L (3.5-5.1)
[2016-04-25 13:31] LABS: CREATININE 0.42 mg/dl (0.61-1.24)
[2016-04-25 13:32] LABS: ALBUMIN/GLOBULIN RATIO 0.78; BILIRUBIN,INDIRECT 0.1 mg/dl (0-1.1); BILIRUBIN,TOTAL 0.1 mg/dl (0.2-1.3); CALCIUM 8.7 mg/dl (8.4-10.2); TOTAL PROTEIN 5.7 g/dl (6.1-8.1)
--- NOTE | 2016-04-25 15:01 | CONS ---
Date/Time of Note Date/Time of Note DATE: 04/25/16 TIME: 14:56 Consult Date/Type/Reason Admit Date/Time Apr 11, 2016 at 22:13 Initial Consult Date 04/21/16 Type of Consultation: Pulm Ordering Provider: ANNETTA AGUILAR MD Subjective Worsening dyspnea noted. CXR with complete left hemithorax opacification without mediastinal shift, c/w atelectasis (+/- component of pleural effusion) Objective Vital Signs Date Time Temp Pulse Resp B/P Pulse Ox O2 Delivery O2 Flow Rate FiO2 04/25/16 12:00 96 28 94 Aerosol 10.0 40 T Tube 04/25/16 10:00 157/75 04/25/16 08:05 96.7 Intake and Output 04/24/16 04/24/16 04/25/16 15:00 23:00 07:00 Intake Total 625 ml 1165 ml 600 ml Balance 625 ml 1165 ml 600 ml HEENT: Neck supple; no JVD; no LAD CVS: RRR, S1 and S2 CHEST: Absent left sided BS ABD: Soft, NT, + BS EXT: No c/c/e Results/Medications Result Diagram: 04/25/16 1310 04/25/16 1310 Results 24 hrs Laboratory Tests Test 04/25/16 13:10 Alanine Aminotransferase (ALT/SGPT) 23 Albumin 2.5 L Albumin/Globulin Ratio 0.78 Alkaline Phosphatase 82 Anion Gap 10 Aspartate Amino Transf (AST/SGOT) 16 Basophils # 0.0 Basophils % 0.4 Blood Urea Nitrogen 8 Calcium Level 8.7 Carbon Dioxide Level 35 H Chloride Level 97 Creatinine 0.42 L Direct Bilirubin 0.00 Eosinophils # 0.1 Eosinophils % 1.7 Globulin 3.20 Glucose Level 85 Hematocrit 33.7 #L Hemoglobin 10.3 #L Indirect Bilirubin 0.1 Lymphocytes # 0.7 L Lymphocytes % 14.0 L Mean Corpuscular Hemoglobin 27.2 L Mean Corpuscular Hemoglobin Concent 30.6 L Mean Corpuscular Volume 89.2 Mean Platelet Volume 9.4 Monocytes # 0.3 Monocytes % 6.5 Neutrophils # 3.7 Neutrophils % 76.6 Nucleated Red Blood Cells # 0.0 Nucleated Red Blood Cells % 0.0 Platelet Count 180 Potassium Level 4.5 Red Blood Count 3.78 #L Red Cell Distribution Width 17.2 H Sodium Level 137 Total Bilirubin 0.1 L Total Protein 5.7 L White Blood Count 4.8 # Medications Current Medications Ondansetron HCl (Zofran Inj) 4 mg Q6H PRN IV NAUSEA AND/OR VOMITING Last administered on 04/24/16 21:00; Admin Dose 4 MG; Start 04/11/16 at 22:30 Acetaminophen (Tylenol Tab) 650 mg Q6H PRN PO PAIN LEVEL 1-3 OR FEVER; Start at 22:30 Morphine Sulfate (morphine) 2 mg Q4H PRN IV PAIN LEVEL 7-10 Last administered on 04/25/16 12:56; Admin Dose 2 MG; Start 04/11/16 at 22:30 Ascorbic Acid (Vitamin C) 500 mg DAILY GTB Last administered on 04/24/16 09:15 ; Admin Dose 500 MG; Start 04/12/16 at 09:00 Bisacodyl (Dulcolax) 10 mg DAILY PRN PO CONSTIPATION; Start 04/11/16 at 22:30 Chlorhexidine Gluconate (Peridex) 15 ml BID MM Last administered on 04/24/16 21 :09; Admin Dose 15 ML; Start 04/12/16 at 09:00 Ferrous Sulfate (Feosol Liquid Cup) 300 mg BID GTB Last administered on 21:08; Admin Dose 300 MG; Start 04/12/16 at 09:00 Acetaminophen/ Hydrocodone Bitart ([place] (5/325)) 1 tab Q4 PRN GTB PAIN LEVEL 6 -10; Start 04/11/16 at 22:30 Lactulose (Enulose) 20 gm DAILY GTB Last administered on 04/24/16 09:12; Admin Dose 20 GM; Start 04/12/16 at 09:00 Quetiapine Fumarate (Seroquel) 25 mg BID@ GTB Last administered on 17:52; Admin Dose 25 MG; Start 04/12/16 at 09:00 Quetiapine Fumarate (Seroquel) 200 mg HS GTB Last administered on 04/24/16 21: 08; Admin Dose 200 MG; Start 04/12/16 at 21:00 Senna (Senokot) 1 tab QHS GTB Last administered on 04/24/16 21:09; Admin Dose 1 TAB; Start 04/12/16 at 21:00 Sodium Biphosphate/ Sodium Phosphate (Fleet Enema Pediatric) 66.6 ml DAILY PRN [place] CONSTIPATION; Start 04/11/16 at 22:30 Thiamine HCl (Vitamin B1) 100 mg DAILY GTB Last administered on 04/24/16 09:15 ; Admin Dose 100 MG; Start 04/12/16 at 09:00 Calcium Carbonate (Tums) 500 mg DAILY GTB Last administered on 04/24/16 09:15; Admin Dose 500 MG; Start 04/12/16 at 09:00 Multivitamins/ Minerals (Theragran-M) 1 tab DAILY PO Last administered on 09:19; Admin Dose 1 TAB; Start 04/12/16 at 09:00 Metoprolol Tartrate (Lopressor) 12.5 mg BID PO Last administered on 04/24/16 21 :09; Admin Dose 12.5 MG; Start 04/12/16 at 12:30 Hydralazine HCl 10 mg 10 mg Q6H PRN IV SBP>170 Last administered on 04/25/16 10 :08; Admin Dose 10 MG; Start 04/12/16 at 12:30 Ertapenem/Sodium Chloride (Invanz/NS) 100 ml @ 200 mls/hr Q24H IVPB Last administered on 04/24/16 17:53; Admin Dose 200 MLS/HR; Start 04/13/16 at 17:00 Famotidine 20 mg 20 mg Q12 GTB Last administered on 04/24/16 21:25; Admin Dose 20 MG; Start 04/19/16 at 21:00 Ferric Sodium Gluconate Complex/ Sodium Chloride (Ferrlecit/NS) 110 ml @ 110 mls/hr Q24H IVPB Last administered on 04/25/16 12:55; Admin Dose 110 MLS/HR; Start 04/22/16 at 10:30; Stop 04/26/16 at 11:29 Lorazepam 1 mg 1 mg Q6 GTB Last administered on 04/25/16 05:31; Admin Dose 1 MG ; Start 04/23/16 at 00:00 Potassium Chloride/Dextrose/ Sod Cl (D5-NS + KCl 40 Meq) 1,000 ml @ 75 mls/hr [id number] IV Last administered on 04/24/16 14:30; Admin Dose 75 MLS/HR; Start 04/24/16 at 12:54 Lorazepam (Ativan) 1 mg Q4 PRN IV AGITATION/ANXIETY Last administered on 11:37; Admin Dose 1 MG; Start 04/24/16 at 21:00 Clonidine (Catapres) 0.1 mg Q6H PRN PO ELEVATED BLOOD PRESSURE; Start 04/24/16 at 23:30 Assessment/Plan Additional Assessment/Plan IMPRESSION: 1. Chronic respiratory failure s/p trach 2. Complete left hemithorax opacification without mediastinal shift, c/w atelectasis (+/- component of pleural effusion) 3. Quadraplegia RECS: 1. Aggressive CPT suctioning/BD's q4 2. Am CXR 3. Diuresis JOSE CRUZ CIFUENTES MD Apr 25, 2016 15:00
[2016-04-25] MEDS: FUROSEMIDE 20 MG INJ IV SCH (15:34)
[2016-04-25] MEDS: ERTAPENEM SODIUM 1 GM in SOD CHLORIDE 0.9% 100 ML IVPB SCH (16:58)
[2016-04-25] MEDS: SENNA TAB GTB SCH (21:00)
[2016-04-25] MEDS: QUETIAPINE 100 MG TAB GTB SCH (21:00)
[2016-04-26] MEDS: ALBUTEROL/IPRATROPIUM (NEB) 3 ML AMP INH SCH ×6 (00:04→20:33)
[2016-04-26] MEDS: LORAZEPAM 2 MG INJ IV PRN ×4 (02:47→20:04)
[2016-04-26 05:17] LABS: ADD SCAN DIFF NO
[2016-04-26] MEDS: LORAZEPAM 0.5 MG TAB GTB SCH ×5 (05:31→23:19)
[2016-04-26 05:34] LABS: POTASSIUM 3.9 mmol/L (3.5-5.1)
[2016-04-26 05:36] LABS: CREATININE 0.38 mg/dl (0.61-1.24)
[2016-04-26 05:37] LABS: CALCIUM 8.8 mg/dl (8.4-10.2)
[2016-04-26 05:41] LABS: BASOPHILS % 0.9 % (0.0-2.0); EOSINOPHILS # 0.1 10^3/ul (0.0-0.5); EOSINOPHILS % 1.2 % (0.0-7.0); HEMATOCRIT 32.2 % (42.0-52.0); LYMPHOCYTES # 0.8 10^3/ul (0.8-2.9); LYMPHOCYTES % 19.5 % (15.0-51.0); MEAN CORPUSCULAR HEMOGLOBIN 27.4 pg (29.0-33.0); MEAN CORPUSCULAR HGB CONC 31.1 g/dl (32.0-37.0); MEAN CORPUSCULAR VOLUME 88.2 fl (82.0-101.0); MEAN PLATELET VOLUME 10.6 fl (7.4-10.4); MONOCYTE # 0.5 10^3/ul (0.3-0.9); MONOCYTES % 11.4 % (0.0-11.0); NEUTROPHIL # 2.9 10^3/ul (1.6-7.5); NEUTROPHILS % 66.8 % (39.0-77.0); PLATELET COUNT 194 10^3/UL (140-415); RED BLOOD COUNT 3.65 10^6/ul (4.70-6.10); RED CELL DISTRIBUTION WIDTH 17.2 % (11.5-14.5); WHITE BLOOD COUNT 4.3 10^3/ul (4.8-10.8)
[2016-04-26] MEDS: THIAMINE 100 MG TAB GTB SCH (08:29)
[2016-04-26] MEDS: QUETIAPINE 25 MG TAB GTB SCH ×2 (08:29→17:00)
[2016-04-26] MEDS: FAMOTIDINE 20 MG TAB GTB SCH ×2 (08:29→20:06)
[2016-04-26] MEDS: FERROUS SULFATE 60 MG/ML 5ML CUP GTB SCH ×2 (08:29→20:05)
[2016-04-26] MEDS: LACTULOSE 30ML CUP GTB SCH (08:29)
[2016-04-26] MEDS: CALCIUM CARBONATE 500 MG CHEW TAB GTB SCH (08:29)
[2016-04-26] MEDS: METOPROLOL 25 MG TAB PO SCH ×2 (08:30→20:06)
[2016-04-26] MEDS: ASCORBIC ACID 500 MG TAB GTB SCH (08:30)
[2016-04-26] MEDS: CHLORHEXIDINE GLUCONATE 15 ML UD CUP MM SCH ×2 (08:30→20:07)
[2016-04-26] MEDS: MULTIVITAMINS/MINERALS TAB PO SCH (08:31)
[2016-04-26 08:59] VITALS: BP 135/89; RESP 20
--- NOTE | 2016-04-26 09:08 | RADRPT ---
PROCEDURE: XR, Chest. CLINICAL INDICATION: Follow up for respiratory distress. TECHNIQUE: AP chest. COMPARISON: Chest, 04/25/2016. FINDINGS: The heart remains enlarged with pulmonary venous congestion/interstitial pulmonary edema. There has been re-expansion of the left upper lobe collapse. There is large right pleural effusion with comp ressive atelectasis of the right lower lobe, unchanged. There is mild left pleural effusion. There is chronic elevation of the left hemidiaphragm. The left PICC line and tracheostomy tube remain in good position. IMPRESSION: 1. Cardiomegaly with pulmonary venous congestion/interstitial pulmonary edema. 2. Re-expansion of the left upper lobe collapse. 3. Large right pleural effusion with compressive atelectasis of the right lower lobe, unchanged. 4. Chronic elevation of the left hemidiaphragm. Mild left pleural effusion. RPTAT: GG .Aiden Ordaz MD, Date Time Electronically viewed and signed by .Aiden Ordaz MD, on 04/26/2016 09:07 .Y/
[2016-04-26] MEDS: FUROSEMIDE 20 MG INJ IV SCH (09:16)
[2016-04-26] MEDS: SOD FERRIC GLUC COMPLX 125 MG in SOD CHLORIDE 0.9% 100 ML IVPB SCH (10:33)
[2016-04-26] MEDS: DEXTROSE 5%-0.45% NACL 1,000 ML IV SCH (11:45)
--- NOTE | 2016-04-26 13:30 | CONS ---
Date/Time of Note Date/Time of Note DATE: 04/26/16 TIME: 13:26 Assessment/Plan Assessment/Plan Chief Complaint/Hosp Course 65 up male with acute hypoxic respiratory failure being admitted for sepsis secondary to ESBL bacteremia. Pt has a worsening normocytic anemia that is likely secondary to his underlying sepsis and antibiotic use. Anemia panel does also reveal evidence of anemia of chronic inflammation as well as iron deficiency. No evidence of Vit b12 nor folate deficiency. Low retic count does indicate the bone marrow is not appropriately responding likely from the overlying sepsis. Normal LDH and haptoglobin makes hemolysis unlikely. Anemia is likely -Hg has responded to blood transfusion. will continue to monitor Hg -continue treatment of underlying sepsis and pneumonia. continue ertapenem. -s/p 5 days of V iron. now on po iron Approximately 40 min were spent at patient's bedside and in coordination of his care Problems: Consultation Date/Type/Reason Admit Date/Time Apr 11, 2016 at 22:13 Initial Consult Date 04/21/16 Type of Consultation: Hematology Reason for Consultation anemia Referring Provider: ANNETTA AGUILAR MD 24 HR Interval Summary Free Text/Dictation pt's breathing remains stable. received 1 unit of PRBCs yesterday. continues on Ertapenem Exam/Review of Systems Vital Signs Vitals Vital Signs Date Time Temp Pulse Resp B/P Pulse Ox O2 Delivery O2 Flow Rate FiO2 04/26/16 08:59 98.4 95 20 135/89 95 04/26/16 08:52 Aerosol 10.0 40 T Tube Intake and Output 04/25/16 04/25/16 04/26/16 15:00 23:00 07:00 Intake Total 260 ml 0 ml Balance 260 ml 0 ml Exam Constitutional: alert, oriented Psych: no complaints Head: atraumatic, normocephalic Eyes: nl conjunctiva ENMT: nl external ears & nose Neck: other (trach in place) Respiratory: crackles/rales, diminished breath sounds Cardiovascular: regular rate and rhythm Gastrointestinal: soft Musculoskeletal: nl extremities to inspection Extremities: normal pulses Results Result Diagram: 04/26/16 0420 04/26/16 0420 Results 24 hrs Laboratory Tests Test 04/26/16 04:20 Anion Gap 9 Basophils # 0.0 Basophils % 0.9 Blood Urea Nitrogen 9 Calcium Level 8.8 Carbon Dioxide Level 39 H Chloride Level 94 L Creatinine 0.38 L Eosinophils # 0.1 Eosinophils % 1.2 Glucose Level 77 Hematocrit 32.2 L Hemoglobin 10.0 L Lymphocytes # 0.8 Lymphocytes % 19.5 Mean Corpuscular Hemoglobin 27.4 L Mean Corpuscular Hemoglobin Concent 31.1 L Mean Corpuscular Volume 88.2 Mean Platelet Volume 10.6 H Monocytes # 0.5 Monocytes % 11.4 H Neutrophils # 2.9 Neutrophils % 66.8 Nucleated Red Blood Cells # 0.0 Nucleated Red Blood Cells % 0.0 Platelet Count 194 Potassium Level 3.9 Red Blood Count 3.65 L Red Cell Distribution Width 17.2 H Sodium Level 138 White Blood Count 4.3 L Medications Medications Current Medications Ondansetron HCl (Zofran Inj) 4 mg Q6H PRN IV NAUSEA AND/OR VOMITING Last administered on 04/24/16 21:00; Admin Dose 4 MG; Start 04/11/16 at 22:30 Acetaminophen (Tylenol Tab) 650 mg Q6H PRN PO PAIN LEVEL 1-3 OR FEVER; Start at 22:30 Morphine Sulfate (morphine) 2 mg Q4H PRN IV PAIN LEVEL 7-10 Last administered on 04/25/16 17:04; Admin Dose 2 MG; Start 04/11/16 at 22:30 Ascorbic Acid (Vitamin C) 500 mg DAILY GTB Last administered on 04/24/16 09:15 ; Admin Dose 500 MG; Start 04/12/16 at 09:00 Bisacodyl (Dulcolax) 10 mg DAILY PRN PO CONSTIPATION; Start 04/11/16 at 22:30 Chlorhexidine Gluconate (Peridex) 15 ml BID MM Last administered on 04/25/16 21 :57; Admin Dose 15 ML; Start 04/12/16 at 09:00 Ferrous Sulfate (Feosol Liquid Cup) 300 mg BID GTB Last administered on 21:08; Admin Dose 300 MG; Start 04/12/16 at 09:00 Acetaminophen/ Hydrocodone Bitart ([place] (5/325)) 1 tab Q4 PRN GTB PAIN LEVEL 6 -10; Start 04/11/16 at 22:30 Lactulose (Enulose) 20 gm DAILY GTB Last administered on 04/24/16 09:12; Admin Dose 20 GM; Start 04/12/16 at 09:00 Quetiapine Fumarate (Seroquel) 25 mg BID@ GTB Last administered on 17:52; Admin Dose 25 MG; Start 04/12/16 at 09:00 Quetiapine Fumarate (Seroquel) 200 mg HS GTB Last administered on 04/24/16 21: 08; Admin Dose 200 MG; Start 04/12/16 at 21:00 Senna (Senokot) 1 tab QHS GTB Last administered on 04/24/16 21:09; Admin Dose 1 TAB; Start 04/12/16 at 21:00 Sodium Biphosphate/ Sodium Phosphate (Fleet Enema Pediatric) 66.6 ml DAILY PRN [place] CONSTIPATION; Start 04/11/16 at 22:30 Thiamine HCl (Vitamin B1) 100 mg DAILY GTB Last administered on 04/24/16 09:15 ; Admin Dose 100 MG; Start 04/12/16 at 09:00 Calcium Carbonate (Tums) 500 mg DAILY GTB Last administered on 04/24/16 09:15; Admin Dose 500 MG; Start 04/12/16 at 09:00 Multivitamins/ Minerals (Theragran-M) 1 tab DAILY PO Last administered on 09:19; Admin Dose 1 TAB; Start 04/12/16 at 09:00 Metoprolol Tartrate (Lopressor) 12.5 mg BID PO Last administered on 04/24/16 21 :09; Admin Dose 12.5 MG; Start 04/12/16 at 12:30 Hydralazine HCl 10 mg 10 mg Q6H PRN IV SBP>170 Last administered on 04/25/16 21 :57; Admin Dose 10 MG; Start 04/12/16 at 12:30 Ertapenem/Sodium Chloride (Invanz/NS) 100 ml @ 200 mls/hr Q24H IVPB Last administered on 04/25/16 16:58; Admin Dose 200 MLS/HR; Start 04/13/16 at 17:00 Famotidine (Pepcid) 20 mg Q12 GTB Last administered on 04/24/16 21:25; Admin Dose 20 MG; Start 04/19/16 at 21:00 Lorazepam (Ativan) 1 mg Q6 GTB Last administered on 04/25/16 05:31; Admin Dose 1 MG; Start 04/23/16 at 00:00 Lorazepam (Ativan) 1 mg Q4 PRN IV AGITATION/ANXIETY Last administered on 09:16; Admin Dose 1 MG; Start 04/24/16 at 21:00 Clonidine (Catapres) 0.1 mg Q6H PRN PO ELEVATED BLOOD PRESSURE; Start 04/24/16 at 23:30 Furosemide 20 mg 20 mg DAILY IV Last administered on 04/26/16 09:16; Admin Dose 20 MG; Start 04/25/16 at 15:30 Dextrose/Sodium Chloride (D5-1/2ns) 1,000 ml @ 60 mls/hr [id number] IV Last administered on 04/26/16 11:45; Admin Dose 60 MLS/HR; Start 04/26/16 at 11:30 JESI MONTEMAYOR M.D. Apr 26, 2016 13:30
--- NOTE | 2016-04-26 16:53 | PN ---
DATE: 04/26/2016 SUBJECTIVE: The patient, Mr. Ford, remains relatively stable, still somewhat agitated and intermit tently confused. PHYSICAL EXAMINATION: Confused. VITAL SIGNS: Temperature 98, pulse 95, blood pressure 135/89, O2 saturation 96% on 40% FIO2. NECK: Supple, no JVD or lymphadenopathy. CARDIAC: S1, S2, no added sounds or murmurs. CHEST: Diminished air entry bilaterally. ABDOMEN: Soft, nontender. No guarding or rebound. EXTREMITIES: No cyanosis, clubbing, edema. NEUROLOGIC: Generalized weakness. LABORATORY DATA: White count 4.3, hemoglobin 10, platelets of 194. BUN 9, creatinine 0.38. IMPRESSION AND PLAN: 1. Bilateral pleural effusions. 2. Healthcare-associated pneumonia. 3. Chronic respiratory failure with tracheostomy. 4. Underlying psychiatric disorder. Patient will require: 1. Thoracentesis with pleural fluid studies of the right lung and then followed by thoracentesis of left lung. 2. Antibiotics. 3. Vent support. 4. DVT and GI prophylaxis. Dictated By: MARISOL STEVENS/DAVID Conf#: [id number] DID#: [id number]
[2016-04-26] MEDS: ERTAPENEM SODIUM 1 GM in SOD CHLORIDE 0.9% 100 ML IVPB SCH (18:14)
--- NOTE | 2016-04-26 18:15 | PN ---
Date/Time of Note Date/Time of Note DATE: 04/26/16 TIME: 18:13 Assessment/Plan VTE Prophylaxis VTE Prophylaxis Intervention: SCD's Lines/Catheters IV C[facility] Type [facility] PICC Line Central line still needed: Yes Urinary Cath still in place: No Assessment/Plan Chief Complaint/Hosp Course ASSESSMENT AND PLAN: - Bilateral pleural effusions, pending thoracentesis. - Acute hypoxic respiratory failure. Dr. Anderson is following in pulmonology consultation. Continue ventilatory support and bronchodilators. - Possible healthcare-acquired left lower lung pneumonia versus aspiration. Continue antibiotics per ID. Dr. Rojas is following an infection disease consultation. - E. coli ESBL urinary tract infection. Continue Ertapenem. - Sepsis with Ecoli ESBL bacteremia 2 UTI. - Normocytic anemia. Dr Gaona is following in hematology consultation. - Dysphagia, with G-tube. - History of chronic respiratory failure with tracheostomy. - Benign prostatic hypertrophy. - Schizoaffective disorder. Continue Seroquel and Ativan as needed for agitation. Continue Lovenox for deep venous thrombosis prophylaxis and Pepcid for peptic ulcer disease prophylaxis. Further recommendations based on clinical course. Plan of care discussed with Dr. Colunga. Problems: Subjective 24 Hr Interval Summary Free Text/Dictation Patient is awake alert, afebrile, with bilateral pleural effusions requires higher level of oxygen. Exam/Review of Systems Vital Signs Vitals Vital Signs Date Time Temp Pulse Resp B/P Pulse Ox O2 Delivery O2 Flow Rate FiO2 04/26/16 17:54 94 10.0 40 04/26/16 17:54 84 22 Aerosol T Tube 04/26/16 08:59 98.4 135/89 Intake and Output 04/25/16 04/25/16 04/26/16 15:00 23:00 07:00 Intake Total 260 ml 0 ml Balance 260 ml 0 ml Exam GENERAL: A well-developed, cachectic gentleman, currently is awake, alert, follows immediate commands, otherwise confused. HEENT: Head is atraumatic, normocephalic. LYDIA. NECK: Supple, with tracheostomy at the base of the neck, with a moderate amount of secretions, no bleeding. LUNGS: Diminished at the bases. Patient has scattered severe rhonchi bilaterally. CARDIOVASCULAR: Normal S1, S2. No murmurs, gallops, clicks, rubs noted. ABDOMEN: Flat, soft, nondistended, nontender. Bowel sounds present. Patient has a G-tube with intact stoma. EXTREMITIES: Contractured. There is no edema, clubbing, cyanosis. Pulses equal bilaterally, 2+. SKIN: There is no rash, petechiae noted. NEUROLOGIC: Patient is awake, alert. Results Result Diagram: 04/26/16 0420 04/26/16 0420 Results 24 hrs Laboratory Tests Test 04/26/16 04:20 Anion Gap 9 Basophils # 0.0 Basophils % 0.9 Blood Urea Nitrogen 9 Calcium Level 8.8 Carbon Dioxide Level 39 H Chloride Level 94 L Creatinine 0.38 L Eosinophils # 0.1 Eosinophils % 1.2 Glucose Level 77 Hematocrit 32.2 L Hemoglobin 10.0 L Lymphocytes # 0.8 Lymphocytes % 19.5 Mean Corpuscular Hemoglobin 27.4 L Mean Corpuscular Hemoglobin Concent 31.1 L Mean Corpuscular Volume 88.2 Mean Platelet Volume 10.6 H Monocytes # 0.5 Monocytes % 11.4 H Neutrophils # 2.9 Neutrophils % 66.8 Nucleated Red Blood Cells # 0.0 Nucleated Red Blood Cells % 0.0 Platelet Count 194 Potassium Level 3.9 Red Blood Count 3.65 L Red Cell Distribution Width 17.2 H Sodium Level 138 White Blood Count 4.3 L Medications Medications Current Medications Ondansetron HCl (Zofran Inj) 4 mg Q6H PRN IV NAUSEA AND/OR VOMITING Last administered on 04/24/16 21:00; Admin Dose 4 MG; Start 04/11/16 at 22:30 Acetaminophen (Tylenol Tab) 650 mg Q6H PRN PO PAIN LEVEL 1-3 OR FEVER; Start at 22:30 Morphine Sulfate (morphine) 2 mg Q4H PRN IV PAIN LEVEL 7-10 Last administered on 04/25/16 17:04; Admin Dose 2 MG; Start 04/11/16 at 22:30 Ascorbic Acid (Vitamin C) 500 mg DAILY GTB Last administered on 04/24/16 09:15 ; Admin Dose 500 MG; Start 04/12/16 at 09:00 Bisacodyl (Dulcolax) 10 mg DAILY PRN PO CONSTIPATION; Start 04/11/16 at 22:30 Chlorhexidine Gluconate (Peridex) 15 ml BID MM Last administered on 04/25/16 21 :57; Admin Dose 15 ML; Start 04/12/16 at 09:00 Ferrous Sulfate (Feosol Liquid Cup) 300 mg BID GTB Last administered on 21:08; Admin Dose 300 MG; Start 04/12/16 at 09:00 Acetaminophen/ Hydrocodone Bitart ([place] (5/325)) 1 tab Q4 PRN GTB PAIN LEVEL 6 -10; Start 04/11/16 at 22:30 Lactulose (Enulose) 20 gm DAILY GTB Last administered on 04/24/16 09:12; Admin Dose 20 GM; Start 04/12/16 at 09:00 Quetiapine Fumarate (Seroquel) 25 mg BID@ GTB Last administered on 17:52; Admin Dose 25 MG; Start 04/12/16 at 09:00 Quetiapine Fumarate (Seroquel) 200 mg HS GTB Last administered on 04/24/16 21: 08; Admin Dose 200 MG; Start 04/12/16 at 21:00 Senna (Senokot) 1 tab QHS GTB Last administered on 04/24/16 21:09; Admin Dose 1 TAB; Start 04/12/16 at 21:00 Sodium Biphosphate/ Sodium Phosphate (Fleet Enema Pediatric) 66.6 ml DAILY PRN [place] CONSTIPATION; Start 04/11/16 at 22:30 Thiamine HCl (Vitamin B1) 100 mg DAILY GTB Last administered on 04/24/16 09:15 ; Admin Dose 100 MG; Start 04/12/16 at 09:00 Calcium Carbonate (Tums) 500 mg DAILY GTB Last administered on 04/24/16 09:15; Admin Dose 500 MG; Start 04/12/16 at 09:00 Multivitamins/ Minerals (Theragran-M) 1 tab DAILY PO Last administered on 09:19; Admin Dose 1 TAB; Start 04/12/16 at 09:00 Metoprolol Tartrate (Lopressor) 12.5 mg BID PO Last administered on 04/24/16 21 :09; Admin Dose 12.5 MG; Start 04/12/16 at 12:30 Hydralazine HCl 10 mg 10 mg Q6H PRN IV SBP>170 Last administered on 04/25/16 21 :57; Admin Dose 10 MG; Start 04/12/16 at 12:30 Ertapenem/Sodium Chloride (Invanz/NS) 100 ml @ 200 mls/hr Q24H IVPB Last administered on 04/25/16 16:58; Admin Dose 200 MLS/HR; Start 04/13/16 at 17:00 Famotidine (Pepcid) 20 mg Q12 GTB Last administered on 04/24/16 21:25; Admin Dose 20 MG; Start 04/19/16 at 21:00 Lorazepam (Ativan) 1 mg Q6 GTB Last administered on 04/25/16 05:31; Admin Dose 1 MG; Start 04/23/16 at 00:00 Lorazepam (Ativan) 1 mg Q4 PRN IV AGITATION/ANXIETY Last administered on 14:55; Admin Dose 1 MG; Start 04/24/16 at 21:00 Clonidine (Catapres) 0.1 mg Q6H PRN PO ELEVATED BLOOD PRESSURE; Start 04/24/16 at 23:30 Furosemide 20 mg 20 mg DAILY IV Last administered on 04/26/16 09:16; Admin Dose 20 MG; Start 04/25/16 at 15:30 Dextrose/Sodium Chloride (D5-1/2ns) 1,000 ml @ 60 mls/hr [id number] IV Last administered on 04/26/16 11:45; Admin Dose 60 MLS/HR; Start 04/26/16 at 11:30 SHELBY BUNCH Apr 26, 2016 18:15
[2016-04-26 20:05] VITALS: BP 174/91; RESP 18
[2016-04-26] MEDS: SENNA TAB GTB SCH (20:06)
[2016-04-26] MEDS: QUETIAPINE 100 MG TAB GTB SCH (20:06)
[2016-04-26] MEDS: hydrALAzine 20 MG INJ IV PRN (20:28)
[2016-04-26 22:15] VITALS: BP 153/87
[2016-04-27] MEDS: ALBUTEROL/IPRATROPIUM (NEB) 3 ML AMP INH SCH ×5 (00:26→16:19)
[2016-04-27] MEDS: DEXTROSE 5%-0.45% NACL 1,000 ML IV SCH ×2 (03:33→20:08)
[2016-04-27] MEDS: LORAZEPAM 0.5 MG TAB GTB SCH ×3 (05:13→17:14)
[2016-04-27 07:49] VITALS: BP 173/91; RESP 18
[2016-04-27 08:00] VITALS: BP 173/91
[2016-04-27 08:30] VITALS: BP 139/68
[2016-04-27] MEDS: hydrALAzine 20 MG INJ IV PRN (08:38)
[2016-04-27] MEDS: LACTULOSE 30ML CUP GTB SCH (08:38)
[2016-04-27] MEDS: FERROUS SULFATE 60 MG/ML 5ML CUP GTB SCH ×2 (08:38→21:00)
[2016-04-27] MEDS: FUROSEMIDE 20 MG INJ IV SCH (08:38)
[2016-04-27] MEDS: CALCIUM CARBONATE 500 MG CHEW TAB GTB SCH (08:39)
[2016-04-27] MEDS: FAMOTIDINE 20 MG TAB GTB SCH ×2 (08:39→21:00)
[2016-04-27] MEDS: CHLORHEXIDINE GLUCONATE 15 ML UD CUP MM SCH ×2 (08:39→23:09)
[2016-04-27] MEDS: QUETIAPINE 25 MG TAB GTB SCH ×2 (08:39→17:00)
[2016-04-27] MEDS: ASCORBIC ACID 500 MG TAB GTB SCH (08:39)
[2016-04-27] MEDS: MULTIVITAMINS/MINERALS TAB PO SCH (08:39)
[2016-04-27] MEDS: METOPROLOL 25 MG TAB PO SCH ×2 (08:39→21:00)
[2016-04-27] MEDS: THIAMINE 100 MG TAB GTB SCH (09:00)
--- NOTE | 2016-04-27 09:20 | RADRPT ---
PROCEDURE: Chest Radiograph. CLINICAL INDICATION: Pneumonia. CHF. TECHNIQUE: Single frontal chest radiograph. COMPARISON: Chest radiograph 04/26/2016 FINDINGS: A tracheostomy tube and left upper extremity PICC remain in place. There is persistent moderate card iomegaly and moderate central vascular congestion. There are slightly decreased interstitial and ai rspace opacities throughout the bilateral lung valdivia consistent with slightly improving pulmonary e kell. Dense bibasilar opacifications likely related to pleural effusions with adjacent atelectasis/i nfiltrate. There is slight improved aeration of the lung bases.. The bones are intact. IMPRESSION: 1. Slight improved aeration of the bilateral lung valdivia likely related to improving pulmonary suzanne a. 2. Otherwise stable radiographic appearance of the chest compared to 04/26/2016. RPTAT: KK .Dedrick Casarez MD, Date Time Electronically viewed and signed by .Dedrick Casarez MD, on 04/27/2016 09:20 .B/
[2016-04-27] MEDS ORDERED: LIDOCAINE 1% (MPF) 5 ML VIAL ONE (09:45)
--- NOTE | 2016-04-27 10:43 | RADRPT ---
PROCEDURE: US guided right thoracentesis. CLINICAL INDICATION: Shortness of breath. Right pleural effusion. TECHNIQUE: Prior to the procedure, informed consent was obtained. The risks, benefits, and alternatives were e xplained to the patient or the patient's family, including but not limited to bleeding, infection, p ain, visceral or vascular damage, shock, pneumothorax, chest tube placement, air embolism, and . The patient or the patient's family understood the risks and the alternatives and wished to proce ed with the study. Informed written consent was obtained. A procedural pause was performed. The patient's name, date of , and procedure to be performed were verified. Ultrasound of the right hemithorax was performed in the axial and sagittal planes. A right pleural e ffusion is noted. Utilizing ultrasound guidance, optimal location for entry to the pleural cavity wa s ascertained. The overlying skin was prepped and draped in the usual sterile fashion. Approximate ly 10 ml of 1% Xylocaine was injected locally for pain control. Using ultrasound guidance, a 5-Fren ch Yueh catheter was introduced into the right pleural space without difficulty. Fluid was aspirated . COMPARISON: None. FINDINGS: Initial ultrasound demonstrates fluid in the right pleural space. Approximately 0.350 liters of ser ous fluid was aspirated and sent to the laboratory. IMPRESSION: 1. Satisfactory ultrasound-guided right thoracentesis. RPTAT: QQ .Tyler Paula MD, Date Time Electronically viewed and signed by .Tyler Paula MD, on 04/27/2016 10:43 .R/
--- NOTE | 2016-04-27 10:44 | RADRPT ---
PROCEDURE: XR Chest. CLINICAL INDICATION: Status post thoracentesis. TECHNIQUE: Single frontal view of the chest was obtained COMPARISON: Chest x-ray 04/27/2016 06:56 a.m. FINDINGS: The soft tissues are normal. There are degenerative osteophytes in the thoracic spine. The heart i s enlarged. The cardiomediastinal silhouette, pulmonary vasculature and hilar structures are normal . There is a left-sided aorta. The perihilar interstitial pulmonary edema seen on the prior study holden s improved. There are infiltrates in the lingula and left lower lobe with bibasilar atelectasis. T he pulmonary vasculature is equilibrated. The costophrenic angles are normal. There is fecal mate rial in the splenic flexure. IMPRESSION: 1. Asymmetric interstitial pulmonary edema which has improved as compared to 04/27/2016. 2. Bibasilar atelectasis with elevation of the diaphragms. 3. Cardiomegaly. 4. Satisfactory position of the tracheostomy tube at T3-4. 5. 3 mm calcified granuloma in the right upper lobe. 6. There is a large amount of fecal material in the splenic flexure. RPTAT:AAJJ Physician Bev Date Time Electronically viewed and signed by Physician Bev on 04/27/2016 10:44 IGOR/
[2016-04-27 11:37] LABS: FLUID GLUCOSE 81 mg/dl; FLUID TYPE THORACENTESIS FLUID
[2016-04-27 11:38] LABS: FLUID TOTAL PROTEIN < 2.0 g/dl
[2016-04-27 11:49] LABS: FLUID APPEARANCE HAZY; FLUID TYPE THORACENTHESIS
[2016-04-27 11:50] LABS: FLUID LYMPHOCYTES 74 %; FLUID MONOCYTES 14 %; FLUID NEUTROPHILS 10 %; FLUID RBC EST 2+; FLUID WBC'S 50 /cmm
[2016-04-27 11:51] LABS: FLUID BASOPHIL 0 %; FLUID EOSINOPHIL 2 %
[2016-04-27] MEDS: LORAZEPAM 2 MG INJ IV PRN (18:15)
--- NOTE | 2016-04-27 18:48 | PN ---
DATE: 04/27/2016 SUBJECTIVE: Patient Logan remains stable, status post thoracentesis of right lung today with 0.35 l iters removed. He remains stable with no evidence of respiratory distress. Still has moderate left pleural effusion also. OBJECTIVE: Vital signs remain within normal limits. IMPRESSION AND PLAN: Bilateral pleural effusions status post thoracentesis, right lung. Pending th oracentesis, left lung. Continue supplemental O2. Continue aspiration precautions. Anticipate dis charge after thoracentesis. Dictated By: MARISOL EDDY MD SV/NTS Conf#: [id number] DID#: [id number] CC: NEELAM RIBERA MD;*EndCC*
[2016-04-27] MEDS: ALBUTEROL/IPRATROPIUM (NEB) 3 ML AMP HHN SCH (19:12)
--- NOTE | 2016-04-27 19:32 | PN ---
Date/Time of Note Date/Time of Note DATE: 04/27/16 TIME: 19:30 Assessment/Plan VTE Prophylaxis VTE Prophylaxis Intervention: SCD's Lines/Catheters IV Catheter Type (from [facility]): PICC Line Central line still needed: Yes Urinary Cath still in place: No Assessment/Plan Chief Complaint/Hosp Course ASSESSMENT AND PLAN: - Bilateral pleural effusions, status post right sided thoracentesis, pending thoracentesis of the left side. - Acute hypoxic respiratory failure. Dr. Anderson is following in pulmonology consultation. Continue ventilatory support and bronchodilators. - Possible healthcare-acquired left lower lung pneumonia versus aspiration. Continue antibiotics per ID. Dr. Rojas is following an infection disease consultation. - E. coli ESBL urinary tract infection. Continue Ertapenem. - Sepsis with Ecoli ESBL bacteremia 2 UTI. - Normocytic anemia. Dr Gaona is following in hematology consultation. - Dysphagia, with G-tube. Status post G-tube removal by patient. Patient passed swallow eval and was started on pured diet. Will reevaluate patient for swallow. - History of chronic respiratory failure with tracheostomy. - Benign prostatic hypertrophy. - Schizoaffective disorder. Continue Seroquel and Ativan as needed for agitation. Continue Lovenox for deep venous thrombosis prophylaxis and Pepcid for peptic ulcer disease prophylaxis. Further recommendations based on clinical course. Plan of care discussed with Dr. Colunga. Problems: Subjective 24 Hr Interval Summary Free Text/Dictation Patient is awake alert, status post right chest thoracentesis, pain is well controlled. Exam/Review of Systems Vital Signs Vitals Vital Signs Date Time Temp Pulse Resp B/P Pulse Ox O2 Delivery O2 Flow Rate FiO2 04/27/16 19:21 99 8.0 35 04/27/16 19:12 104 24 Aerosol T Tube 04/27/16 08:30 139/68 04/27/16 08:00 99.2 Intake and Output 04/26/16 04/26/16 04/27/16 15:00 23:00 07:00 Intake Total 110 ml 460 ml 760 ml Output Total 3700 ml 1500 ml Balance 110 ml -3240 ml -740 ml Exam GENERAL: A well-developed, cachectic gentleman, currently is awake, alert, follows immediate commands, otherwise confused. HEENT: Head is atraumatic, normocephalic. LYDIA. NECK: Supple, with tracheostomy at the base of the neck, with a moderate amount of secretions, no bleeding. LUNGS: Diminished at the bases. Patient has scattered severe rhonchi bilaterally. CARDIOVASCULAR: Normal S1, S2. No murmurs, gallops, clicks, rubs noted. ABDOMEN: Flat, soft, nondistended, nontender. Bowel sounds present. Patient has a G-tube with intact stoma. EXTREMITIES: Contractured. There is no edema, clubbing, cyanosis. Pulses equal bilaterally, 2+. SKIN: There is no rash, petechiae noted. NEUROLOGIC: Patient is awake, alert. Results Result Diagram: 04/26/16 04204/26/16419 Results 24 hrs Laboratory Tests Test 04/27/16 09:40 Body Fluid Appearance HAZY Body Fluid Basophils % 0 Body Fluid Color YELLOW Body Fluid Eosinophils % 2 Body Fluid Glucose 81 Body Fluid Lactate Dehydrogenase Body Fluid Lymphocytes (%) 74 Body Fluid Monocytes % 14 Body Fluid Neutrophils % 10 Body Fluid Other Cells (%) Body Fluid RBC 2+ Body Fluid Total Protein < 2.0 Body Fluid Type THORACENTESIS FLUID Body Fluid Volume 350.0 Body Fluid WBC 50 Medications Medications Current Medications Ondansetron HCl (Zofran Inj) 4 mg Q6H PRN IV NAUSEA AND/OR VOMITING Last administered on 04/24/16 21:00; Admin Dose 4 MG; Start 04/11/16 at 22:30 Acetaminophen (Tylenol Tab) 650 mg Q6H PRN PO PAIN LEVEL 1-3 OR FEVER; Start at 22:30 Morphine Sulfate (morphine) 2 mg Q4H PRN IV PAIN LEVEL 7-10 Last administered on 04/25/16 17:04; Admin Dose 2 MG; Start 04/11/16 at 22:30 Ascorbic Acid (Vitamin C) 500 mg DAILY GTB Last administered on 04/24/16 09:15 ; Admin Dose 500 MG; Start 04/12/16 at 09:00 Bisacodyl (Dulcolax) 10 mg DAILY PRN PO CONSTIPATION; Start 04/11/16 at 22:30 Chlorhexidine Gluconate (Peridex) 15 ml BID MM Last administered on 04/25/16 21 :57; Admin Dose 15 ML; Start 04/12/16 at 09:00 Ferrous Sulfate (Feosol Liquid Cup) 300 mg BID GTB Last administered on 21:08; Admin Dose 300 MG; Start 04/12/16 at 09:00 Acetaminophen/ Hydrocodone Bitart ([place] (5/325)) 1 tab Q4 PRN GTB PAIN LEVEL 6 -10; Start 04/11/16 at 22:30 Lactulose (Enulose) 20 gm DAILY GTB Last administered on 04/24/16 09:12; Admin Dose 20 GM; Start 04/12/16 at 09:00 Quetiapine Fumarate (Seroquel) 25 mg BID@ GTB Last administered on 17:52; Admin Dose 25 MG; Start 04/12/16 at 09:00 Quetiapine Fumarate (Seroquel) 200 mg HS GTB Last administered on 04/24/16 21: 08; Admin Dose 200 MG; Start 04/12/16 at 21:00 Senna (Senokot) 1 tab QHS GTB Last administered on 04/24/16 21:09; Admin Dose 1 TAB; Start 04/12/16 at 21:00 Sodium Biphosphate/ Sodium Phosphate (Fleet Enema Pediatric) 66.6 ml DAILY PRN [place] CONSTIPATION; Start 04/11/16 at 22:30 Thiamine HCl (Vitamin B1) 100 mg DAILY GTB Last administered on 04/24/16 09:15 ; Admin Dose 100 MG; Start 04/12/16 at 09:00 Calcium Carbonate (Tums) 500 mg DAILY GTB Last administered on 04/24/16 09:15; Admin Dose 500 MG; Start 04/12/16 at 09:00 Multivitamins/ Minerals (Theragran-M) 1 tab DAILY PO Last administered on 09:19; Admin Dose 1 TAB; Start 04/12/16 at 09:00 Metoprolol Tartrate (Lopressor) 12.5 mg BID PO Last administered on 04/24/16 21 :09; Admin Dose 12.5 MG; Start 04/12/16 at 12:30 Hydralazine HCl (Apresoline) 10 mg Q6H PRN IV SBP>170 Last administered on 08:38; Admin Dose 10 MG; Start 04/12/16 at 12:30 Famotidine (Pepcid) 20 mg Q12 GTB Last administered on 04/24/16 21:25; Admin Dose 20 MG; Start 04/19/16 at 21:00 Lorazepam (Ativan) 1 mg Q6 GTB Last administered on 04/25/16 05:31; Admin Dose 1 MG; Start 04/23/16 at 00:00 Lorazepam (Ativan) 1 mg Q4 PRN IV AGITATION/ANXIETY Last administered on 18:15; Admin Dose 1 MG; Start 04/24/16 at 21:00 Clonidine (Catapres) 0.1 mg Q6H PRN PO ELEVATED BLOOD PRESSURE; Start 04/24/16 at 23:30 Furosemide 20 mg 20 mg DAILY IV Last administered on 04/27/16 08:38; Admin Dose 20 MG; Start 04/25/16 at 15:30 Dextrose/Sodium Chloride (D5-1/2ns) 1,000 ml @ 60 mls/hr [id number] IV Last administered on 04/27/16 03:33; Admin Dose 60 MLS/HR; Start 04/26/16 at 11:30 SHELBY BUNCH Apr 27, 2016 19:32
[2016-04-27] MEDS: morphine 2 MG INJ IV PRN (20:02)
[2016-04-27] MEDS ORDERED: SOD CHLORIDE 0.9% 1,000 ML IV ONE (21:00)
[2016-04-27] MEDS: QUETIAPINE 100 MG TAB GTB SCH (21:00)
[2016-04-27] MEDS: SENNA TAB GTB SCH (21:00)
[2016-04-27 21:19] VITALS: PULSE 165
[2016-04-27 21:30] VITALS: BP 105/58
[2016-04-27] MEDS ORDERED: DILTIAZEM-D5W 125MG/125ML DRIP 125 ML IV SCH (22:00)
[2016-04-27 23:35] VITALS: PULSE 111
--- NOTE | 2016-04-27 23:37 | EN ---
Date/Time of Note Date/Time of Note DATE: 04/27/16 TIME: 23:31 ER Progress Note RAPID RESPONSE: Earlier this evening I was called to evaluate patient. He was found by RN to be hypotensive. He was placed in Trendelenburg and was in that position when I arrived. Patient is trached and on a ventilation for chronic respiratory failure. He was alert and able to communicate some. No chest pain. No nausea. Says he "can't breathe". His lungs were clear and heart regular. Rate of his IV was increased to a bolus, and his pressure started to climb to 87/51. The rest of his vitals were unremarkable. His RN spoke with his PCP and the patient will be transferred to Telemetry for closer monitoring. THUAN URBAN DO Apr 27, 2016 23:37
[2016-04-28] VITALS (13 sets, daily range): BP systolic 96–150; BP diastolic 67–92; PULSE 73–150; RESP 18–22
[2016-04-28] MEDS: morphine 2 MG INJ IV PRN (01:30)
[2016-04-28] MEDS: ALBUTEROL/IPRATROPIUM (NEB) 3 ML AMP HHN SCH ×4 (02:42→20:18)
[2016-04-28] MEDS: LORAZEPAM 0.5 MG TAB GTB SCH ×4 (05:38→17:28)
[2016-04-28 07:24] LABS: ADD SCAN DIFF NO
[2016-04-28 07:40] LABS: CREATININE 0.67 mg/dl (0.61-1.24); POTASSIUM 2.8 mmol/L (3.5-5.1)
[2016-04-28 07:41] LABS: CALCIUM 8.2 mg/dl (8.4-10.2)
[2016-04-28 07:56] LABS: BASOPHILS % 0.8 % (0.0-2.0); EOSINOPHILS % 0.2 % (0.0-7.0); HEMATOCRIT 30.4 % (42.0-52.0); HEMOGLOBIN 9.6 g/dl (14.0-18.0); LYMPHOCYTES # 1.2 10^3/ul (0.8-2.9); LYMPHOCYTES % 24.8 % (15.0-51.0); MEAN CORPUSCULAR HEMOGLOBIN 27.7 pg (29.0-33.0); MEAN CORPUSCULAR HGB CONC 31.6 g/dl (32.0-37.0); MEAN CORPUSCULAR VOLUME 87.9 fl (82.0-101.0); MEAN PLATELET VOLUME 10.5 fl (7.4-10.4); MONOCYTE # 0.6 10^3/ul (0.3-0.9); MONOCYTES % 12.6 % (0.0-11.0); NEUTROPHIL # 3.1 10^3/ul (1.6-7.5); NEUTROPHILS % 61.2 % (39.0-77.0); PLATELET COUNT 183 10^3/UL (140-415); RED BLOOD COUNT 3.46 10^6/ul (4.70-6.10); RED CELL DISTRIBUTION WIDTH 17.2 % (11.5-14.5)
[2016-04-28] MEDS: CALCIUM CARBONATE 500 MG CHEW TAB GTB SCH (09:00)
[2016-04-28] MEDS: MULTIVITAMINS/MINERALS TAB PO SCH (09:00)
[2016-04-28] MEDS: ASCORBIC ACID 500 MG TAB GTB SCH (09:00)
[2016-04-28] MEDS: FERROUS SULFATE 60 MG/ML 5ML CUP GTB SCH ×2 (09:00→21:06)
[2016-04-28] MEDS: FAMOTIDINE 20 MG TAB GTB SCH ×2 (09:00→21:06)
[2016-04-28] MEDS: QUETIAPINE 25 MG TAB GTB SCH ×2 (09:00→17:28)
[2016-04-28] MEDS: METOPROLOL 25 MG TAB PO SCH ×2 (09:00→21:10)
[2016-04-28] MEDS: LACTULOSE 30ML CUP GTB SCH (09:00)
[2016-04-28] MEDS: THIAMINE 100 MG TAB GTB SCH (09:00)
[2016-04-28] MEDS: FUROSEMIDE 20 MG INJ IV SCH (10:06)
[2016-04-28] MEDS: CHLORHEXIDINE GLUCONATE 15 ML UD CUP MM SCH ×2 (10:06→21:05)
[2016-04-28] MEDS: POTASSIUM CHLORIDE 250 ML IVPB SCH ×2 (10:27→12:30)
[2016-04-28] MEDS ORDERED: METOPROLOL 5 MG INJ IV ONE (11:00)
[2016-04-28] MEDS ORDERED: METOPROLOL 5 MG INJ IV PRN (13:30)
[2016-04-28] MEDS: DEXTROSE 5%-0.45% NACL 1,000 ML IV SCH (13:30)
--- NOTE | 2016-04-28 13:49 | CONS ---
Date/Time of Note Date/Time of Note DATE: 04/28/16 TIME: 13:47 Assessment/Plan Assessment/Plan Additional Assessment/Plan Recommendations; 1. Patient admitted for left lower lobe pneumonia from atelectasis with significant clinical improvement. Off antibiotics now. 2. History of paraplegia. 3. History of alcoholic encephalopathy. 4. Gram-negative bacteremia. Continue current treatment. Will obtain a follow-up chest x-ray. Consultation Date/Type/Reason Admit Date/Time Apr 11, 2016 at 22:13 Initial Consult Date 04/12/16 Type of Consultation: Pulmonary Reason for Consultation Patient condition stable. Remains awake and alert. Denies any shortness of breath. Has remained hemodynamically stable. General exam; elderly male, currently in no distress awake. Referring Provider: ANNETTA AGUILAR MD Exam/Review of Systems Vital Signs Vitals Vital Signs Date Time Temp Pulse Resp B/P Pulse Ox O2 Delivery O2 Flow Rate FiO2 04/28/16 12:32 75 04/28/16 11:33 97.6 18 123/82 98 04/28/16 08:42 Aerosol 8.0 35 T Tube Intake and Output 04/27/16 04/27/16 04/28/16 15:00 23:00 07:00 Intake Total 620 ml 450 ml Output Total 2000 ml 500 ml Balance -1380 ml -50 ml Exam HEENT examination; supple neck, no JVD. No lymphadenopathy. Midline trachea. Tracheostomy in place. With clean insertion site. Patient has few remaining teeth. Chest examination minimally decreased breath sounds left lower lobe otherwise clear. S1-S2 audible, no murmurs. Regular rhythm. Abdomen examination; soft, nontender. No organomegaly. G-tube in place. Bowel sounds audible. Extremity examination; no peripheral edema. Next BLADE GROOVER examination; patient has stable paraplegia. Results Result Diagram: 04/28/16 0650 04/28/16 0650 Results 24 hrs Laboratory Tests Test 04/27/16 20:23 04/28/16 06:50 Bedside Glucose 98 Anion Gap 9 Basophils # 0.0 Basophils % 0.8 Blood Urea Nitrogen 15 Calcium Level 8.2 L Carbon Dioxide Level 39 H Chloride Level 92 L Creatinine 0.67 Eosinophils # 0.0 Eosinophils % 0.2 Glucose Level 84 Hematocrit 30.4 L Hemoglobin 9.6 L Lymphocytes # 1.2 Lymphocytes % 24.8 Mean Corpuscular Hemoglobin 27.7 L Mean Corpuscular Hemoglobin Concent 31.6 L Mean Corpuscular Volume 87.9 Mean Platelet Volume 10.5 H Monocytes # 0.6 Monocytes % 12.6 H Neutrophils # 3.1 Neutrophils % 61.2 Nucleated Red Blood Cells # 0.0 Nucleated Red Blood Cells % 0.0 Platelet Count 183 Potassium Level 2.8 *L Red Blood Count 3.46 L Red Cell Distribution Width 17.2 H Sodium Level 137 White Blood Count 5.0 Medications Medications Current Medications Ondansetron HCl (Zofran Inj) 4 mg Q6H PRN IV NAUSEA AND/OR VOMITING Last administered on 04/24/16 21:00; Admin Dose 4 MG; Start 04/11/16 at 22:30 Acetaminophen (Tylenol Tab) 650 mg Q6H PRN PO PAIN LEVEL 1-3 OR FEVER; Start at 22:30 Morphine Sulfate (morphine) 2 mg Q4H PRN IV PAIN LEVEL 7-10 Last administered on 04/28/16 01:30; Admin Dose 2 MG; Start 04/11/16 at 22:30 Ascorbic Acid (Vitamin C) 500 mg DAILY GTB Last administered on 04/24/16 09:15 ; Admin Dose 500 MG; Start 04/12/16 at 09:00 Bisacodyl (Dulcolax) 10 mg DAILY PRN PO CONSTIPATION; Start 04/11/16 at 22:30 Chlorhexidine Gluconate (Peridex) 15 ml BID MM Last administered on 04/28/16 10 :06; Admin Dose 15 ML; Start 04/12/16 at 09:00 Ferrous Sulfate (Feosol Liquid Cup) 300 mg BID GTB Last administered on 21:08; Admin Dose 300 MG; Start 04/12/16 at 09:00 Acetaminophen/ Hydrocodone Bitart ([place] (5/325)) 1 tab Q4 PRN GTB PAIN LEVEL 6 -10; Start 04/11/16 at 22:30 Lactulose (Enulose) 20 gm DAILY GTB Last administered on 04/24/16 09:12; Admin Dose 20 GM; Start 04/12/16 at 09:00 Quetiapine Fumarate (Seroquel) 25 mg BID@ GTB Last administered on 17:52; Admin Dose 25 MG; Start 04/12/16 at 09:00 Quetiapine Fumarate (Seroquel) 200 mg HS GTB Last administered on 04/24/16 21: 08; Admin Dose 200 MG; Start 04/12/16 at 21:00 Senna (Senokot) 1 tab QHS GTB Last administered on 04/24/16 21:09; Admin Dose 1 TAB; Start 04/12/16 at 21:00 Sodium Biphosphate/ Sodium Phosphate (Fleet Enema Pediatric) 66.6 ml DAILY PRN [place] CONSTIPATION; Start 04/11/16 at 22:30 Thiamine HCl (Vitamin B1) 100 mg DAILY GTB Last administered on 04/24/16 09:15 ; Admin Dose 100 MG; Start 04/12/16 at 09:00 Calcium Carbonate (Tums) 500 mg DAILY GTB Last administered on 04/24/16 09:15; Admin Dose 500 MG; Start 04/12/16 at 09:00 Multivitamins/ Minerals (Theragran-M) 1 tab DAILY PO Last administered on 09:19; Admin Dose 1 TAB; Start 04/12/16 at 09:00 Metoprolol Tartrate (Lopressor) 12.5 mg BID PO Last administered on 04/24/16 21 :09; Admin Dose 12.5 MG; Start 04/12/16 at 12:30 Hydralazine HCl (Apresoline) 10 mg Q6H PRN IV SBP>170 Last administered on 08:38; Admin Dose 10 MG; Start 04/12/16 at 12:30 Famotidine (Pepcid) 20 mg Q12 GTB Last administered on 04/24/16 21:25; Admin Dose 20 MG; Start 04/19/16 at 21:00 Lorazepam (Ativan) 1 mg Q6 GTB Last administered on 04/28/16 12:59; Admin Dose 1 MG; Start 04/23/16 at 00:00 Lorazepam (Ativan) 1 mg Q4 PRN IV AGITATION/ANXIETY Last administered on 18:15; Admin Dose 1 MG; Start 04/24/16 at 21:00 Clonidine (Catapres) 0.1 mg Q6H PRN PO ELEVATED BLOOD PRESSURE; Start 04/24/16 at 23:30 Furosemide 20 mg 20 mg DAILY IV Last administered on 04/28/16 10:06; Admin Dose 20 MG; Start 04/25/16 at 15:30 Dextrose/Sodium Chloride 1,000 ml @ 60 mls/hr [id number] IV Last administered on 04/27/16 20:08; Admin Dose 60 MLS/HR; Start 04/26/16 at 11:30 Diltiazem HCl 125 ml @ 5 mls/hr TITRATE IV Last administered on 04/27/16 22:28 ; Admin Dose 5 MLS/HR; Start 04/27/16 at 22:00 Potassium Chloride (KCl 40 MEQ/250 ML NS) 250 ml @ 62.5 mls/hr Q4H IVPB Last administered on 04/28/16 10:27; Admin Dose 62.5 MLS/HR; Start 04/28/16 at 08:30; Stop 04/28/16 at 16:29 Metoprolol Tartrate (Lopressor) 5 mg Q4H PRN IV PRN HR>110 Hold SBP<100; Start 04/28/16 at 13:30 KATHERYN LAWTON Apr 28, 2016 13:49
--- NOTE | 2016-04-28 14:06 | CONS ---
DATE OF ADMISSION: 04/11/2016 DATE OF CONSULTATION: 04/28/2016 REASON FOR CONSULTATION: Chest pain, assess for wide complex tachycardia, rule out NSVT. REQUESTING PHYSICIAN: Annetta Colunga MD HISTORY OF PRESENT ILLNESS: Mr. Ford is a 65-year-old male with a history of chronic respiratory f ailure, status post tracheostomy, dysphagia, status post G-tube, lower extremity paralysis contracti ons, anxiety, schizoaffective disorder, dementia, hypertension, BPH, recent admit for dislodgment of G-tube which was replaced, preserved EF by echo 04/04/2016, who represents with respiratory distres s. Initially upon arrival on 04/11/2016, temperature 98.2, blood pressure 93/63, pulse 90, respirat ory rate 20, saturating 92%. The patient's labs notable for white count 7.7, hemoglobin 9.6, platel et count 180. Sodium of 136, potassium 4.2, creatinine 0.3, BUN 21. Troponin negative. INR 1.21. The patient underwent chest x-ray revealing near complete opacification of left lung with hyperinfl ation of the right lung. The patient was admitted, placed on telemetry where he has remained since that time. By telemetry today, the patient was noted to have a possible wide complex tachycardia an d cardiology consult requested. The patient at this time denies chest pain, states he has mild shor tness of breath. PAST MEDICAL HISTORY: As above in HPI. MEDICATIONS CURRENTLY IN HOSPITAL: 1. Potassium chloride. 2. Lasix 20 mg IV daily. 3. Clonidine. 4. Ativan. 5. Pepcid 20 mg q.12h. 6. Seroquel. 7. Metoprolol 12.5 mg p.o. b.i.d. nothing by mouth at this time. 8. Lactulose p.r.n. 9. Seroquel 25 mg b.i.d. 10. Thiamine 100 mg daily. 11. Calcium carbonate. 12. Multivitamin with minerals. 13. Zofran p.r.n. 14. Morphine. 15. Diltiazem drip. ALLERGIES: 1. CHLORPROMAZINE. 2. HALDOL. SOCIAL HISTORY: No tobacco, ETOH or illicit drug use. FAMILY HISTORY: No history of sudden cardiac or early CAD. REVIEW OF SYSTEMS: As above in HPI. CONSTITUTIONAL: No fevers, chills. PULMONARY: Chronic respiratory failure, status post tracheostomy. GASTROINTESTINAL: Dysphagia, status post G-tube. GENITOURINARY: No hematuria. MUSCULOSKELETAL: Degenerative joint disease. PSYCHIATRIC: Positive psychiatric history. NEUROLOGIC: No documented history of CVA. ENDOCRINE: No documented history of diabetes mellitus. PHYSICAL EXAMINATION: VITAL SIGNS: Temperature 97.6, blood pressure 123/82, pulse 74, respiratory rate 18, saturating 98% . GENERAL: The patient is alert, awake, somewhat anxious. NECK: Tracheostomy in place. CHEST: Upper airway sounds, rhonchorous sounds. HEART: Regular rate and rhythm. Normal S1, increased S2, I/ systolic murmur, nondisplaced PMI. ABDOMEN: Positive bowel sounds, soft. EXTREMITIES: No pitting edema. Contracted, 1+ pulses bilaterally, posterior tibial. LABORATORY DATA: As above in HPI, with most recent from today, sodium 137, potassium 2.8, creatinin e 0.67, BUN of 15. White blood cell count 3.6, hemoglobin 9.3, platelet count of 172. UA positive from 04/11/2016. IMAGING STUDIES: Chest x-ray most recent from 04/27/2016 revealing asymmetric ____ pulmonary edema. Shows improved bibasilar atelectasis. Large amount of fecal material in the splenic flexure. IMPRESSION: 1. Wide complex tachycardia, cardiac arrhythmia. Rule out nonsustained ventricular tachycardia. 2. Abnormal electrocardiogram, assess for acute coronary syndrome. 3. Congestive heart failure by chest x-ray, diastolic by most recent echo acute on chronic. 4. Hypertension with episodes of borderline hypotension requiring IV fluid bolus now improved. 5. Respiratory failure, chronic, status post tracheostomy. 6. Dysphagia, status post G-tube. 7. Psychiatric disorder. 8. Urinary tract infection. 9. Hypokalemia. 10. Anemia. 11. Leukopenia. RECOMMENDATIONS: 1. At this time, would repeat the patient's potassium as you are doing and maintain patient on low- dose beta carl as tolerated and able to take and I agree with using p.r.n. IV push beta carl a s necessary for recurrent bouts of wide complex tachycardia. We will additionally complete the patie nt's rule out for myocardial infarction to ensure the patient's wide complex tachycardia is not due to possible cardiac ischemia or acute coronary syndrome and will check the patient's magnesium in ad dition to potassium to ensure that the patient does not require magnesium repletion lending to wide complex tachyarrhythmia or possible nonsustained ventricular tachycardia. 2. Patient undergoing a swallow eval at this time and we will follow the patient's volume status cl osely with ongoing treatment of psychiatric illness. Thank you for allowing me to take part in the care of this patient. I will continue to follow very closely with you with further recommendations to be made as the patient progresses through his [facility] clinical course. Dictated By: LILI SORENSEN/DAVID Conf#: [id number] DID#: [id number] CC: ANNETTA COLUNGA MD;*End*
[2016-04-28 16:40] LABS: MAGNESIUM 1.5 mg/dl (1.7-2.5)
[2016-04-28] MEDS ORDERED: POTASSIUM CHLORIDE 250 ML IVPB SCH (17:30)
--- NOTE | 2016-04-28 18:38 | PN ---
Date/Time of Note Date/Time of Note DATE: 04/28/16 TIME: 18:33 Assessment/Plan VTE Prophylaxis VTE Prophylaxis Intervention: SCD's Lines/Catheters IV Catheter Type (from [place]): PICC Line Central line still needed: Yes Urinary Cath still in place: No Assessment/Plan Chief Complaint/Hosp Course ASSESSMENT AND PLAN: - Atrial fibrillation with rapid ventricular response. Dr. Espitia is following patient in cardiology consultation. Continue metoprolol. Continue telemetry monitoring. - Bilateral pleural effusions, status post right sided thoracentesis, pending thoracentesis of the left side. - Acute hypoxic respiratory failure. Dr. Anderson is following in pulmonology consultation. Continue ventilatory support and bronchodilators. - Possible healthcare-acquired left lower lung pneumonia versus aspiration. Continue antibiotics per ID. Dr. Rojas is following an infection disease consultation. - E. coli ESBL urinary tract infection, status post treatment. - Sepsis with Ecoli ESBL bacteremia 2 UTI, resolved. - Normocytic anemia. Dr Gaona is following in hematology consultation. - Dysphagia, with G-tube. Status post G-tube removal by patient. Patient passed swallow eval and was started on pured diet. Patient tolerates pured diet well. - History of chronic respiratory failure with tracheostomy. - Benign prostatic hypertrophy. - Schizoaffective disorder. Continue Seroquel and Ativan as needed for agitation. -Hypo-kalemia, potassium replaced, continue to monitor electrolytes. Continue Lovenox for deep venous thrombosis prophylaxis and Pepcid for peptic ulcer disease prophylaxis. Further recommendations based on clinical course. Plan of care discussed with Dr. Colunga. Problems: Subjective 24 Hr Interval Summary Free Text/Dictation Patient had episode of atrial fibrillation with rapid ventricular response and was transferred to telemetry converted to to sinus rhythm overnight, nurse called me in the morning that patient back to A. fib with rapid ventricular response at 145 rate, converted to sinus rhythm after IV metoprolol. Patient is awake alert denies any chest pain. Currently in sinus rhythm at a rate of 70. Potassium was replaced. Exam/Review of Systems Vital Signs Vitals Vital Signs Date Time Temp Pulse Resp B/P Pulse Ox O2 Delivery O2 Flow Rate FiO2 04/28/16 16:56 73 04/28/16 16:14 8.0 35 04/28/16 15:25 97.8 20 146/92 100 04/28/16 14:30 Aerosol T Tube Intake and Output 04/27/16 04/27/16 04/28/16 15:00 23:00 07:00 Intake Total 620 ml 450 ml Output Total 2000 ml 500 ml Balance -1380 ml -50 ml Exam GENERAL: A well-developed, cachectic gentleman, currently is awake, alert, follows immediate commands, otherwise confused. HEENT: Head is atraumatic, normocephalic. LYDIA. NECK: Supple, with tracheostomy at the base of the neck, with a moderate amount of secretions, no bleeding. LUNGS: Diminished at the bases. Patient has scattered severe rhonchi bilaterally. CARDIOVASCULAR: Normal S1, S2. No murmurs, gallops, clicks, rubs noted. ABDOMEN: Flat, soft, nondistended, nontender. Bowel sounds present. Patient has a G-tube with intact stoma. EXTREMITIES: Contractured. There is no edema, clubbing, cyanosis. Pulses equal bilaterally, 2+. SKIN: There is no rash, petechiae noted. NEUROLOGIC: Patient is awake, alert. Results Result Diagram: 04/28/16 0650 04/28/16 0650 Results 24 hrs Laboratory Tests Test 04/27/16 20:23 04/28/16 06:50 04/28/16 16:15 Bedside Glucose 98 Anion Gap 9 Basophils # 0.0 Basophils % 0.8 Blood Urea Nitrogen 15 Calcium Level 8.2 L Carbon Dioxide Level 39 H Chloride Level 92 L Creatinine 0.67 Eosinophils # 0.0 Eosinophils % 0.2 Glucose Level 84 Hematocrit 30.4 L Hemoglobin 9.6 L Lymphocytes # 1.2 Lymphocytes % 24.8 Mean Corpuscular Hemoglobin 27.7 L Mean Corpuscular Hemoglobin Concent 31.6 L Mean Corpuscular Volume 87.9 Mean Platelet Volume 10.5 H Monocytes # 0.6 Monocytes % 12.6 H Neutrophils # 3.1 Neutrophils % 61.2 Nucleated Red Blood Cells # 0.0 Nucleated Red Blood Cells % 0.0 Platelet Count 183 Potassium Level 2.8 *L Red Blood Count 3.46 L Red Cell Distribution Width 17.2 H Sodium Level 137 White Blood Count 5.0 B-Type Natriuretic Peptide 2310 H Magnesium Level 1.5 L Thyroid Stimulating Hormone (TSH) 3.000 Medications Medications Current Medications Ondansetron HCl (Zofran Inj) 4 mg Q6H PRN IV NAUSEA AND/OR VOMITING Last administered on 04/24/16 21:00; Admin Dose 4 MG; Start 04/11/16 at 22:30 Acetaminophen (Tylenol Tab) 650 mg Q6H PRN PO PAIN LEVEL 1-3 OR FEVER; Start at 22:30 Morphine Sulfate (morphine) 2 mg Q4H PRN IV PAIN LEVEL 7-10 Last administered on 04/28/16 01:30; Admin Dose 2 MG; Start 04/11/16 at 22:30 Ascorbic Acid (Vitamin C) 500 mg DAILY GTB Last administered on 04/24/16 09:15 ; Admin Dose 500 MG; Start 04/12/16 at 09:00 Bisacodyl (Dulcolax) 10 mg DAILY PRN PO CONSTIPATION; Start 04/11/16 at 22:30 Chlorhexidine Gluconate (Peridex) 15 ml BID MM Last administered on 04/28/16 10 :06; Admin Dose 15 ML; Start 04/12/16 at 09:00 Ferrous Sulfate (Feosol Liquid Cup) 300 mg BID GTB Last administered on 21:08; Admin Dose 300 MG; Start 04/12/16 at 09:00 Acetaminophen/ Hydrocodone Bitart ([place] (5/325)) 1 tab Q4 PRN GTB PAIN LEVEL 6 -10; Start 04/11/16 at 22:30 Lactulose (Enulose) 20 gm DAILY GTB Last administered on 04/24/16 09:12; Admin Dose 20 GM; Start 04/12/16 at 09:00 Quetiapine Fumarate (Seroquel) 25 mg BID@ GTB Last administered on 17:28; Admin Dose 25 MG; Start 04/12/16 at 09:00 Quetiapine Fumarate (Seroquel) 200 mg HS GTB Last administered on 04/24/16 21: 08; Admin Dose 200 MG; Start 04/12/16 at 21:00 Senna (Senokot) 1 tab QHS GTB Last administered on 04/24/16 21:09; Admin Dose 1 TAB; Start 04/12/16 at 21:00 Sodium Biphosphate/ Sodium Phosphate (Fleet Enema Pediatric) 66.6 ml DAILY PRN [place] CONSTIPATION; Start 04/11/16 at 22:30 Thiamine HCl (Vitamin B1) 100 mg DAILY GTB Last administered on 04/24/16 09:15 ; Admin Dose 100 MG; Start 04/12/16 at 09:00 Calcium Carbonate (Tums) 500 mg DAILY GTB Last administered on 04/24/16 09:15; Admin Dose 500 MG; Start 04/12/16 at 09:00 Multivitamins/ Minerals (Theragran-M) 1 tab DAILY PO Last administered on 09:19; Admin Dose 1 TAB; Start 04/12/16 at 09:00 Metoprolol Tartrate (Lopressor) 12.5 mg BID PO Last administered on 04/24/16 21 :09; Admin Dose 12.5 MG; Start 04/12/16 at 12:30 Hydralazine HCl (Apresoline) 10 mg Q6H PRN IV SBP>170 Last administered on 08:38; Admin Dose 10 MG; Start 04/12/16 at 12:30 Famotidine (Pepcid) 20 mg Q12 GTB Last administered on 04/24/16 21:25; Admin Dose 20 MG; Start 04/19/16 at 21:00 Lorazepam (Ativan) 1 mg Q6 GTB Last administered on 04/28/16 17:28; Admin Dose 1 MG; Start 04/23/16 at 00:00 Lorazepam (Ativan) 1 mg Q4 PRN IV AGITATION/ANXIETY Last administered on 18:15; Admin Dose 1 MG; Start 04/24/16 at 21:00 Clonidine (Catapres) 0.1 mg Q6H PRN PO ELEVATED BLOOD PRESSURE; Start 04/24/16 at 23:30 Furosemide 20 mg 20 mg DAILY IV Last administered on 04/28/16 10:06; Admin Dose 20 MG; Start 04/25/16 at 15:30 Dextrose/Sodium Chloride 1,000 ml @ 60 mls/hr [id number] IV Last administered on 04/27/16 20:08; Admin Dose 60 MLS/HR; Start 04/26/16 at 11:30 Diltiazem HCl (Cardizem-D5W 125 Mg/125 ml Drip) 125 ml @ 5 mls/hr TITRATE IV Last administered on 04/27/16 22:28; Admin Dose 5 MLS/HR; Start 04/27/16 at 22:00 Metoprolol Tartrate 5 mg 5 mg Q4H PRN IV PRN HR>110 Hold SBP<100; Start at 13:30 Potassium Chloride (KCl 40 MEQ/250 ML NS) 250 ml @ 60 mls/hr 1730 IVPB Last administered on 04/28/16 18:09; Admin Dose 60 MLS/HR; Start 04/28/16 at 17:30; Stop 04/28/16 at 21:30 SHELBY BUNCH Apr 28, 2016 18:37
[2016-04-28 18:50] LABS: CK-MB 11.4 ng/ml (0.0-2.4)
[2016-04-28 19:17] LABS: TROPONIN-I 5.83 ng/ml (0.00-0.12)
[2016-04-28] MEDS: QUETIAPINE 100 MG TAB GTB SCH (21:06)
[2016-04-28] MEDS: SENNA TAB GTB SCH (21:06)
[2016-04-29] VITALS (14 sets, daily range): BP systolic 99–159; BP diastolic 62–103; PULSE 49–85; RESP 16–20
[2016-04-29] MEDS: LORAZEPAM 2 MG INJ IV PRN (00:32)
[2016-04-29] MEDS: ALBUTEROL/IPRATROPIUM (NEB) 3 ML AMP HHN SCH ×4 (01:33→20:45)
[2016-04-29 03:27] LABS: CK-MB 8.6 ng/ml (0.0-2.4); TROPONIN-I 5.95 ng/ml (0.00-0.12)
[2016-04-29] MEDS: LORAZEPAM 0.5 MG TAB GTB SCH ×5 (05:29→23:55)
[2016-04-29] MEDS: DEXTROSE 5%-0.45% NACL 1,000 ML IV SCH ×2 (05:49→22:44)
--- NOTE | 2016-04-29 06:57 | RADRPT ---
PROCEDURE: XR Chest. CLINICAL INDICATION: pneumonia TECHNIQUE: Portable single view of the chest COMPARISON: 04/27 FINDINGS: Tracheostomy tube remains in place. Cardiomegaly. Left lung infiltrate is similar to prior while t here has been increase in alveolar infiltrate or edema in the right mid to lower lung zone. Pulmona ry vascular congestion and reduced lung volumes again seen. IMPRESSION: Increasing right lung infiltrate or edema. RPTAT: [facility] Rachelle Kuhn Physician Date Time Electronically viewed and signed by Rachelle Kuhn, Physician on 04/29/2016 06:56 LE/
[2016-04-29 08:02] LABS: ADD SCAN DIFF NO
[2016-04-29 08:04] LABS: BASOPHILS % 0.7 % (0.0-2.0); EOSINOPHILS # 0.1 10^3/ul (0.0-0.5); EOSINOPHILS % 2.5 % (0.0-7.0); HEMATOCRIT 32.1 % (42.0-52.0); HEMOGLOBIN 9.6 g/dl (14.0-18.0); LYMPHOCYTES # 1.2 10^3/ul (0.8-2.9); LYMPHOCYTES % 43.3 % (15.0-51.0); MEAN CORPUSCULAR HEMOGLOBIN 27.7 pg (29.0-33.0); MEAN CORPUSCULAR HGB CONC 29.9 g/dl (32.0-37.0); MEAN CORPUSCULAR VOLUME 92.8 fl (82.0-101.0); MEAN PLATELET VOLUME 10.2 fl (7.4-10.4); MONOCYTE # 0.4 10^3/ul (0.3-0.9); MONOCYTES % 12.8 % (0.0-11.0); NEUTROPHIL # 1.1 10^3/ul (1.6-7.5); NEUTROPHILS % 40.3 % (39.0-77.0); PLATELET COUNT 120 10^3/UL (140-415); RED BLOOD COUNT 3.46 10^6/ul (4.70-6.10); RED CELL DISTRIBUTION WIDTH 17.3 % (11.5-14.5); WHITE BLOOD COUNT 2.8 10^3/ul (4.8-10.8)
[2016-04-29 08:29] LABS: POTASSIUM 4.7 mmol/L (3.5-5.1)
[2016-04-29 08:32] LABS: CREATININE 0.43 mg/dl (0.61-1.24)
[2016-04-29 08:33] LABS: CALCIUM 8.4 mg/dl (8.4-10.2); MAGNESIUM 1.6 mg/dl (1.7-2.5)
[2016-04-29] MEDS: THIAMINE 100 MG TAB GTB SCH (09:00)
[2016-04-29] MEDS: FAMOTIDINE 20 MG TAB GTB SCH ×2 (09:00→21:23)
[2016-04-29] MEDS: CHLORHEXIDINE GLUCONATE 15 ML UD CUP MM SCH ×2 (09:00→21:24)
[2016-04-29] MEDS: FERROUS SULFATE 60 MG/ML 5ML CUP GTB SCH ×2 (09:00→21:23)
[2016-04-29] MEDS: MULTIVITAMINS/MINERALS TAB PO SCH (09:00)
[2016-04-29] MEDS: LACTULOSE 30ML CUP GTB SCH (09:00)
[2016-04-29] MEDS: ASCORBIC ACID 500 MG TAB GTB SCH (09:00)
[2016-04-29] MEDS: FUROSEMIDE 20 MG INJ IV SCH (09:01)
[2016-04-29] MEDS: CALCIUM CARBONATE 500 MG CHEW TAB GTB SCH (09:01)
[2016-04-29] MEDS: METOPROLOL 25 MG TAB PO SCH ×2 (09:01→21:29)
[2016-04-29 09:26] LABS: CHOL/HDL RATIO 2.5 RATIO
[2016-04-29] MEDS: QUETIAPINE 25 MG TAB GTB SCH ×2 (09:48→16:57)
--- NOTE | 2016-04-29 11:39 | CONS ---
Date/Time of Note Date/Time of Note DATE: 04/29/16 TIME: 11:36 Assessment/Plan Assessment/Plan Additional Assessment/Plan Chest x-ray was reviewed from today which is showing bilateral pleural effusions and changes of congestive heart failure. Assessment recommendations; 1. Patient admitted for extensive left-sided pneumonia due to underlying mucous plug with interval resolution however chest x-ray from today showing increasing bilateral pleural effusions which are consistent with congestive heart failure pattern. 2. History of alcoholism with alcoholic encephalopathy. 3. History of paraplegia. Continue current treatment. Add Lasix 40 mg IV daily. Will obtain follow-up chest x-ray in 48 hours. Consultation Date/Type/Reason Admit Date/Time Apr 11, 2016 at 22:13 Initial Consult Date 04/12/16 Type of Consultation: Pulmonary Referring Provider: ANNETTA AGUILAR MD 24 HR Interval Summary Free Text/Dictation Patient condition remained stable. Still exhibiting effects of alcoholic encephalopathy. However it is quite awake and alert. General exam; elderly male, currently in no distress. Restrained by soft wrist restraints. Exam/Review of Systems Vital Signs Vitals Vital Signs Date Time Temp Pulse Resp B/P Pulse Ox O2 Delivery O2 Flow Rate FiO2 04/29/16 08:33 68 20 98 Aerosol 8.0 35 T Tube 04/29/16 07:37 97.0 132/83 Intake and Output 04/28/16 04/28/16 04/29/16 15:00 23:00 07:00 Intake Total 320 ml 1130 ml Output Total 600 ml 800 ml Balance -280 ml 330 ml Exam HEENT examination; supple neck, positive JVD. No lymphadenopathy. Midline trachea. Pharynx is clear. Patient has a few remaining teeth. Pupils are midsize and reactive to light. Chest examination; diminished breath the lung bases bilaterally. S1-S2 audible , no murmurs. Regular rhythm. There is a tracheostomy in place. Abdomen examination; soft, nondistended. No organomegaly. G-tube in place. Extremity examination; no peripheral edema. [employer] examination; patient is stable paraplegia. Results Result Diagram: 04/29/16 0655 04/29/16 0655 Results 24 hrs Laboratory Tests Test 04/28/16 16:15 04/28/16 18:15 04/29/16 02:00 04/29/16 06:55 B-Type Natriuretic Peptide 2310 H Magnesium Level 1.5 L 1.6 L Thyroid Stimulating Hormone (TSH) 3.000 Creatine Kinase 173 128 Creatine Kinase Index 6.6 6.7 Creatinine Kinase MB (Mass) 11.40 H 8.60 H Troponin I 5.830 *H 5.950 *H Anion Gap 9 Basophils # 0.0 Basophils % 0.7 Blood Urea Nitrogen 15 Calcium Level 8.4 Carbon Dioxide Level 36 H Chloride Level 97 Cholesterol Level 88 L Cholesterol/HDL Ratio 2.5 Creatinine 0.43 L Eosinophils # 0.1 Eosinophils % 2.5 Glucose Level 80 HDL Cholesterol 34 Hematocrit 32.1 L Hemoglobin 9.6 L LDL Cholesterol, Calculated 47 Lymphocytes # 1.2 Lymphocytes % 43.3 Mean Corpuscular Hemoglobin 27.7 L Mean Corpuscular Hemoglobin Concent 29.9 L Mean Corpuscular Volume 92.8 Mean Platelet Volume 10.2 Monocytes # 0.4 Monocytes % 12.8 H Neutrophils # 1.1 L Neutrophils % 40.3 Nucleated Red Blood Cells # 0.0 Nucleated Red Blood Cells % 0.0 Platelet Count 120 #L Potassium Level 4.7 Red Blood Count 3.46 L Red Cell Distribution Width 17.3 H Sodium Level 137 Triglycerides Level 34 White Blood Count 2.8 #L Medications Medications Current Medications Ondansetron HCl (Zofran Inj) 4 mg Q6H PRN IV NAUSEA AND/OR VOMITING Last administered on 04/24/16 21:00; Admin Dose 4 MG; Start 04/11/16 at 22:30 Acetaminophen (Tylenol Tab) 650 mg Q6H PRN PO PAIN LEVEL 1-3 OR FEVER; Start at 22:30 Morphine Sulfate (morphine) 2 mg Q4H PRN IV PAIN LEVEL 7-10 Last administered on 04/28/16 01:30; Admin Dose 2 MG; Start 04/11/16 at 22:30 Ascorbic Acid (Vitamin C) 500 mg DAILY GTB Last administered on 04/29/16 09:00 ; Admin Dose 500 MG; Start 04/12/16 at 09:00 Bisacodyl (Dulcolax) 10 mg DAILY PRN PO CONSTIPATION; Start 04/11/16 at 22:30 Chlorhexidine Gluconate (Peridex) 15 ml BID MM Last administered on 04/29/16 09 :00; Admin Dose 15 ML; Start 04/12/16 at 09:00 Ferrous Sulfate (Feosol Liquid Cup) 300 mg BID GTB Last administered on 09:00; Admin Dose 300 MG; Start 04/12/16 at 09:00 Acetaminophen/ Hydrocodone Bitart ([place] (5/325)) 1 tab Q4 PRN GTB PAIN LEVEL 6 -10; Start 04/11/16 at 22:30 Lactulose (Enulose) 20 gm DAILY GTB Last administered on 04/29/16 09:00; Admin Dose 20 GM; Start 04/12/16 at 09:00 Quetiapine Fumarate (Seroquel) 25 mg BID@ GTB Last administered on 09:48; Admin Dose 25 MG; Start 04/12/16 at 09:00 Quetiapine Fumarate (Seroquel) 200 mg HS GTB Last administered on 04/28/16 21: 06; Admin Dose 200 MG; Start 04/12/16 at 21:00 Senna (Senokot) 1 tab QHS GTB Last administered on 04/28/16 21:06; Admin Dose 1 TAB; Start 04/12/16 at 21:00 Sodium Biphosphate/ Sodium Phosphate (Fleet Enema Pediatric) 66.6 ml DAILY PRN MD CONSTIPATION; Start 04/11/16 at 22:30 Thiamine HCl (Vitamin B1) 100 mg DAILY GTB Last administered on 04/29/16 09:00 ; Admin Dose 100 MG; Start 04/12/16 at 09:00 Calcium Carbonate (Tums) 500 mg DAILY GTB Last administered on 04/29/16 09:01; Admin Dose 500 MG; Start 04/12/16 at 09:00 Multivitamins/ Minerals (Theragran-M) 1 tab DAILY PO Last administered on 09:00; Admin Dose 1 TAB; Start 04/12/16 at 09:00 Metoprolol Tartrate (Lopressor) 12.5 mg BID PO Last administered on 04/29/16 09 :01; Admin Dose 12.5 MG; Start 04/12/16 at 12:30 Hydralazine HCl (Apresoline) 10 mg Q6H PRN IV SBP>170 Last administered on 08:38; Admin Dose 10 MG; Start 04/12/16 at 12:30 Famotidine (Pepcid) 20 mg Q12 GTB Last administered on 04/29/16 09:00; Admin Dose 20 MG; Start 04/19/16 at 21:00 Lorazepam (Ativan) 1 mg Q6 GTB Last administered on 04/28/16 17:28; Admin Dose 1 MG; Start 04/23/16 at 00:00 Lorazepam (Ativan) 1 mg Q4 PRN IV AGITATION/ANXIETY Last administered on 00:32; Admin Dose 1 MG; Start 04/24/16 at 21:00 Clonidine (Catapres) 0.1 mg Q6H PRN PO ELEVATED BLOOD PRESSURE; Start 04/24/16 at 23:30 Furosemide 20 mg 20 mg DAILY IV Last administered on 04/29/16 09:01; Admin Dose 20 MG; Start 04/25/16 at 15:30 Dextrose/Sodium Chloride 1,000 ml @ 60 mls/hr [id number] IV Last administered on 04/29/16 05:49; Admin Dose 60 MLS/HR; Start 04/26/16 at 11:30 Diltiazem HCl (Cardizem-D5W 125 Mg/125 ml Drip) 125 ml @ 5 mls/hr TITRATE IV Last administered on 04/27/16 22:28; Admin Dose 5 MLS/HR; Start 04/27/16 at 22:00 Metoprolol Tartrate (Lopressor) 5 mg Q4H PRN IV PRN HR>110 Hold SBP<100; Start 04/28/16 at 13:30 Enoxaparin Sodium (Lovenox) 55 mg Q12 SC ; Start 04/29/16 at 21:00 KATHERYN LAWTON Apr 29, 2016 11:38
[2016-04-29] MEDS ORDERED: FUROSEMIDE 20 MG INJ IV SCH (12:00)
[2016-04-29] MEDS ORDERED: FUROSEMIDE 40 MG INJ IV SCH (12:00)
--- NOTE | 2016-04-29 13:11 | CONS ---
Date/Time of Note Date/Time of Note DATE: 04/29/16 TIME: 13:04 Assessment/Plan Assessment/Plan Chief Complaint/Hosp Course IMPRESSION: 1. Wide complex tachycardia, cardiac arrhythmia. Rule out nonsustained ventricular tachycardia.-likely c/w abberant AF 2. Abnormal electrocardiogram, assess for acute coronary syndrome. 3. Congestive heart failure by chest x-ray, diastolic by most recent echo acute on chronic. 4. Hypertension with episodes of borderline hypotension requiring IV fluid bolus now improved. 5. Respiratory failure, chronic, status post tracheostomy. 6. Dysphagia, status post G-tube. 7. Psychiatric disorder. 8. Urinary tract infection. 9. Hypokalemia-improved 10. Anemia. 11. Leukopenia. 12.Nstemi-no current chest pain Recc: -Tele -Continue BB with slight increase -start asa given nstemi and continue lovenox -Continue lasix diuresis -Trend cardiac enzymes -Consider [facility] and will discuss with patient Problems: Consultation Date/Type/Reason Admit Date/Time Apr 11, 2016 at 22:13 Initial Consult Date 04/21/16 Type of Consultation: Cardiology Reason for Consultation WCT/Nstemi Referring Provider: ANNETTA AGUILAR MD Exam/Review of Systems Vital Signs Vitals Vital Signs Date Time Temp Pulse Resp B/P Pulse Ox O2 Delivery O2 Flow Rate FiO2 04/29/16 12:30 73 04/29/16 11:43 99.0 20 141/62 99 04/29/16 08:33 Aerosol 8.0 35 T Tube Intake and Output 04/28/16 04/28/16 04/29/16 15:00 23:00 07:00 Intake Total 320 ml 1130 ml Output Total 600 ml 800 ml Balance -280 ml 330 ml Exam Review of Systems: CONSTITUTIONAL: No fevers, chills. PULMONARY: trached CARDIOVASCULAR: No chest pain/palpitations GASTROINTESTINAL: No nausea/vomiting. GENITOURINARY: No hematuria/dysuria. MUSCULOSKELETAL: No myagias/arthalgias. PSYCHIATRIC: The patient denies depression. NEUROLOGIC: No weakness Constitutional: alert Psych: no complaints Head: normocephalic ENMT: mucosa pink and moist Neck: jvd (9cm water), supple Respiratory: other (upper airway rhocherous sounds) Cardiovascular: regular rate and rhythm Gastrointestinal: non-tender, soft Musculoskeletal: muscle weakness (generalized) Extremities: edema (none) Neurological: other (No focal deficits) Results Result Diagram: 04/29/16 0655 04/29/16 0655 Results 24 hrs Laboratory Tests Test 04/28/16 16:15 04/28/16 18:15 04/29/16 02:00 04/29/16 06:55 B-Type Natriuretic Peptide 2310 H Magnesium Level 1.5 L 1.6 L Thyroid Stimulating Hormone (TSH) 3.000 Creatine Kinase 173 128 Creatine Kinase Index 6.6 6.7 Creatinine Kinase MB (Mass) 11.40 H 8.60 H Troponin I 5.830 *H 5.950 *H Anion Gap 9 Basophils # 0.0 Basophils % 0.7 Blood Urea Nitrogen 15 Calcium Level 8.4 Carbon Dioxide Level 36 H Chloride Level 97 Cholesterol Level 88 L Cholesterol/HDL Ratio 2.5 Creatinine 0.43 L Eosinophils # 0.1 Eosinophils % 2.5 Glucose Level 80 HDL Cholesterol 34 Hematocrit 32.1 L Hemoglobin 9.6 L LDL Cholesterol, Calculated 47 Lymphocytes # 1.2 Lymphocytes % 43.3 Mean Corpuscular Hemoglobin 27.7 L Mean Corpuscular Hemoglobin Concent 29.9 L Mean Corpuscular Volume 92.8 Mean Platelet Volume 10.2 Monocytes # 0.4 Monocytes % 12.8 H Neutrophils # 1.1 L Neutrophils % 40.3 Nucleated Red Blood Cells # 0.0 Nucleated Red Blood Cells % 0.0 Platelet Count 120 #L Potassium Level 4.7 Red Blood Count 3.46 L Red Cell Distribution Width 17.3 H Sodium Level 137 Triglycerides Level 34 White Blood Count 2.8 #L Medications Medications Current Medications Ondansetron HCl (Zofran Inj) 4 mg Q6H PRN IV NAUSEA AND/OR VOMITING Last administered on 04/24/16 21:00; Admin Dose 4 MG; Start 04/11/16 at 22:30 Acetaminophen (Tylenol Tab) 650 mg Q6H PRN PO PAIN LEVEL 1-3 OR FEVER; Start at 22:30 Morphine Sulfate (morphine) 2 mg Q4H PRN IV PAIN LEVEL 7-10 Last administered on 04/28/16 01:30; Admin Dose 2 MG; Start 04/11/16 at 22:30 Ascorbic Acid (Vitamin C) 500 mg DAILY GTB Last administered on 04/29/16 09:00 ; Admin Dose 500 MG; Start 04/12/16 at 09:00 Bisacodyl (Dulcolax) 10 mg DAILY PRN PO CONSTIPATION; Start 04/11/16 at 22:30 Chlorhexidine Gluconate (Peridex) 15 ml BID MM Last administered on 04/29/16 09 :00; Admin Dose 15 ML; Start 04/12/16 at 09:00 Ferrous Sulfate (Feosol Liquid Cup) 300 mg BID GTB Last administered on 09:00; Admin Dose 300 MG; Start 04/12/16 at 09:00 Acetaminophen/ Hydrocodone Bitart ([place] (5/325)) 1 tab Q4 PRN GTB PAIN LEVEL 6 -10; Start 04/11/16 at 22:30 Lactulose (Enulose) 20 gm DAILY GTB Last administered on 04/29/16 09:00; Admin Dose 20 GM; Start 04/12/16 at 09:00 Quetiapine Fumarate (Seroquel) 25 mg BID@ GTB Last administered on 09:48; Admin Dose 25 MG; Start 04/12/16 at 09:00 Quetiapine Fumarate (Seroquel) 200 mg HS GTB Last administered on 04/28/16 21: 06; Admin Dose 200 MG; Start 04/12/16 at 21:00 Senna (Senokot) 1 tab QHS GTB Last administered on 04/28/16 21:06; Admin Dose 1 TAB; Start 04/12/16 at 21:00 Sodium Biphosphate/ Sodium Phosphate (Fleet Enema Pediatric) 66.6 ml DAILY PRN [place] CONSTIPATION; Start 04/11/16 at 22:30 Thiamine HCl (Vitamin B1) 100 mg DAILY GTB Last administered on 04/29/16 09:00 ; Admin Dose 100 MG; Start 04/12/16 at 09:00 Calcium Carbonate (Tums) 500 mg DAILY GTB Last administered on 04/29/16 09:01; Admin Dose 500 MG; Start 04/12/16 at 09:00 Multivitamins/ Minerals (Theragran-M) 1 tab DAILY PO Last administered on 09:00; Admin Dose 1 TAB; Start 04/12/16 at 09:00 Metoprolol Tartrate (Lopressor) 12.5 mg BID PO Last administered on 04/29/16 09 :01; Admin Dose 12.5 MG; Start 04/12/16 at 12:30 Hydralazine HCl (Apresoline) 10 mg Q6H PRN IV SBP>170 Last administered on 08:38; Admin Dose 10 MG; Start 04/12/16 at 12:30 Famotidine (Pepcid) 20 mg Q12 GTB Last administered on 04/29/16 09:00; Admin Dose 20 MG; Start 04/19/16 at 21:00 Lorazepam (Ativan) 1 mg Q6 GTB Last administered on 04/29/16 12:13; Admin Dose 1 MG; Start 04/23/16 at 00:00 Lorazepam (Ativan) 1 mg Q4 PRN IV AGITATION/ANXIETY Last administered on 00:32; Admin Dose 1 MG; Start 04/24/16 at 21:00 Clonidine 0.1 mg 0.1 mg Q6H PRN PO ELEVATED BLOOD PRESSURE; Start 04/24/16 at 23 :30 Dextrose/Sodium Chloride 1,000 ml @ 60 mls/hr [id number] IV Last administered on 04/29/16 05:49; Admin Dose 60 MLS/HR; Start 04/26/16 at 11:30 Diltiazem HCl (Cardizem-D5W 125 Mg/125 ml Drip) 125 ml @ 5 mls/hr TITRATE IV Last administered on 04/27/16 22:28; Admin Dose 5 MLS/HR; Start 04/27/16 at 22:00 Metoprolol Tartrate (Lopressor) 5 mg Q4H PRN IV PRN HR>110 Hold SBP<100; Start 04/28/16 at 13:30 Enoxaparin Sodium (Lovenox) 55 mg Q12 SC ; Start 04/29/16 at 21:00 Furosemide (Lasix) 20 mg ONCE IV Last administered on 04/29/16 12:13; Admin Dose 20 MG; Start 04/29/16 at 12:00; Stop 04/29/16 at 23:00 Furosemide (Lasix) 40 mg DAILY IV ; Start 04/30/16 at 09:00 LILI BRADEN Apr 29, 2016 13:11
[2016-04-29 15:49] LABS: CK-MB 7.84 ng/ml (0.0-2.4)
[2016-04-29 15:53] LABS: TROPONIN-I 5.19 ng/ml (0.00-0.12)
--- NOTE | 2016-04-29 16:01 | PN ---
Date/Time of Note Date/Time of Note DATE: 04/29/16 TIME: 16:00 Assessment/Plan VTE Prophylaxis VTE Prophylaxis Intervention: other Lines/Catheters IV C[facility]ter Type (from [facility] PICC Line Central line still needed: Yes Urinary Cath still in place: Yes Reason Cath still needed: urinary retention Assessment/Plan Assessment/Plan - Atrial fibrillation with rapid ventricular response. - per Dr. Espitia in cardiology consultation. Continue metoprolol. Continue telemetry monitoring. - Bilateral pleural effusions, status post right sided thoracentesis, pending thoracentesis of the left side. - Acute hypoxic respiratory failure. on Vent now - per Dr. Anderson in pulmonology consultation. - Continue ventilatory support and bronchodilators. - Possible healthcare-acquired left lower lung pneumonia versus aspiration. - Continue antibiotics per ID. - Dr. Rojas is following an infection disease consultation. - E. coli ESBL urinary tract infection. Continue Ertapenem. - Sepsis with Ecoli ESBL bacteremia 2 UTI. - Normocytic anemia. - Dr Gaona is following in hematology consultation. - monitor H/H, bleeding - Dysphagia, with G-tube. - aspiration precautions - History of chronic respiratory failure with tracheostomy. - Benign prostatic hypertrophy. - Schizoaffective disorder. Continue Seroquel and Ativan as needed for agitation. - Lovenox for deep venous thrombosis prophylaxis- - Pepcid for peptic ulcer disease prophylaxis. Further recommendations based on clinical course. Plan of care discussed with Dr. Colunga. Subjective 24 Hr Interval Summary Constitutional: requiring O2 Respiratory: shortness of breath Exam/Review of Systems Vital Signs Vitals Vital Signs Date Time Temp Pulse Resp B/P Pulse Ox O2 Delivery O2 Flow Rate FiO2 04/29/16 15:42 98.0 73 18 137/85 98 04/29/16 13:17 6.0 04/29/16 08:33 Aerosol 35 T Tube Intake and Output 04/28/16 04/28/16 04/29/16 15:00 23:00 07:00 Intake Total 320 ml 1130 ml Output Total 600 ml 800 ml Balance -280 ml 330 ml Exam Constitutional: alert, frail, oriented (x1 to name ) Psych: nl mood/affect Head: atraumatic Eyes: EOMI, nl sclera ENMT: nl external ears & nose Neck: non-tender Respiratory: diminished breath sounds, other (trach intact) Cardiovascular: nl pulses Gastrointestinal: other, soft Musculoskeletal: muscle weakness (BUE. BLE contractures- Cont PT), other Extremities: normal pulses Neurological: other Skin: other Lymph: nontender Results Result Diagram: 04/29/16 0655 04/29/16 0655 Results 24 hrs Laboratory Tests Test 04/28/16 16:15 04/28/16 18:15 04/29/16 02:00 04/29/16 06:55 B-Type Natriuretic Peptide 2310 H Magnesium Level 1.5 L 1.6 L Thyroid Stimulating Hormone (TSH) 3.000 Creatine Kinase 173 128 Creatine Kinase Index 6.6 6.7 Creatinine Kinase MB (Mass) 11.40 H 8.60 H Troponin I 5.830 *H 5.950 *H Anion Gap 9 Basophils # 0.0 Basophils % 0.7 Blood Urea Nitrogen 15 Calcium Level 8.4 Carbon Dioxide Level 36 H Chloride Level 97 Cholesterol Level 88 L Cholesterol/HDL Ratio 2.5 Creatinine 0.43 L Eosinophils # 0.1 Eosinophils % 2.5 Glucose Level 80 HDL Cholesterol 34 Hematocrit 32.1 L Hemoglobin 9.6 L LDL Cholesterol, Calculated 47 Lymphocytes # 1.2 Lymphocytes % 43.3 Mean Corpuscular Hemoglobin 27.7 L Mean Corpuscular Hemoglobin Concent 29.9 L Mean Corpuscular Volume 92.8 Mean Platelet Volume 10.2 Monocytes # 0.4 Monocytes % 12.8 H Neutrophils # 1.1 L Neutrophils % 40.3 Nucleated Red Blood Cells # 0.0 Nucleated Red Blood Cells % 0.0 Platelet Count 120 #L Potassium Level 4.7 Red Blood Count 3.46 L Red Cell Distribution Width 17.3 H Sodium Level 137 Triglycerides Level 34 White Blood Count 2.8 #L Test 04/29/16 15:00 Creatine Kinase 88 Creatine Kinase Index 8.9 Creatinine Kinase MB (Mass) 7.84 H Troponin I 5.190 *H Medications Medications Current Medications Ondansetron HCl (Zofran Inj) 4 mg Q6H PRN IV NAUSEA AND/OR VOMITING Last administered on 04/24/16 21:00; Admin Dose 4 MG; Start 04/11/16 at 22:30 Acetaminophen (Tylenol Tab) 650 mg Q6H PRN PO PAIN LEVEL 1-3 OR FEVER; Start at 22:30 Morphine Sulfate (morphine) 2 mg Q4H PRN IV PAIN LEVEL 7-10 Last administered on 04/28/16 01:30; Admin Dose 2 MG; Start 04/11/16 at 22:30 Ascorbic Acid (Vitamin C) 500 mg DAILY GTB Last administered on 04/29/16 09:00 ; Admin Dose 500 MG; Start 04/12/16 at 09:00 Bisacodyl (Dulcolax) 10 mg DAILY PRN PO CONSTIPATION; Start 04/11/16 at 22:30 Chlorhexidine Gluconate (Peridex) 15 ml BID MM Last administered on 04/29/16 09 :00; Admin Dose 15 ML; Start 04/12/16 at 09:00 Ferrous Sulfate (Feosol Liquid Cup) 300 mg BID GTB Last administered on 09:00; Admin Dose 300 MG; Start 04/12/16 at 09:00 Acetaminophen/ Hydrocodone Bitart ([place] (5/325)) 1 tab Q4 PRN GTB PAIN LEVEL 6 -10; Start 04/11/16 at 22:30 Lactulose (Enulose) 20 gm DAILY GTB Last administered on 04/29/16 09:00; Admin Dose 20 GM; Start 04/12/16 at 09:00 Quetiapine Fumarate (Seroquel) 25 mg BID@ GTB Last administered on 09:48; Admin Dose 25 MG; Start 04/12/16 at 09:00 Quetiapine Fumarate (Seroquel) 200 mg HS GTB Last administered on 04/28/16 21: 06; Admin Dose 200 MG; Start 04/12/16 at 21:00 Senna (Senokot) 1 tab QHS GTB Last administered on 04/28/16 21:06; Admin Dose 1 TAB; Start 04/12/16 at 21:00 Sodium Biphosphate/ Sodium Phosphate (Fleet Enema Pediatric) 66.6 ml DAILY PRN [place] CONSTIPATION; Start 04/11/16 at 22:30 Thiamine HCl (Vitamin B1) 100 mg DAILY GTB Last administered on 04/29/16 09:00 ; Admin Dose 100 MG; Start 04/12/16 at 09:00 Calcium Carbonate (Tums) 500 mg DAILY GTB Last administered on 04/29/16 09:01; Admin Dose 500 MG; Start 04/12/16 at 09:00 Multivitamins/ Minerals (Theragran-M) 1 tab DAILY PO Last administered on 09:00; Admin Dose 1 TAB; Start 04/12/16 at 09:00 Hydralazine HCl (Apresoline) 10 mg Q6H PRN IV SBP>170 Last administered on 08:38; Admin Dose 10 MG; Start 04/12/16 at 12:30 Famotidine (Pepcid) 20 mg Q12 GTB Last administered on 04/29/16 09:00; Admin Dose 20 MG; Start 04/19/16 at 21:00 Lorazepam (Ativan) 1 mg Q6 GTB Last administered on 04/29/16 12:13; Admin Dose 1 MG; Start 04/23/16 at 00:00 Lorazepam (Ativan) 1 mg Q4 PRN IV AGITATION/ANXIETY Last administered on 00:32; Admin Dose 1 MG; Start 04/24/16 at 21:00 Clonidine 0.1 mg 0.1 mg Q6H PRN PO ELEVATED BLOOD PRESSURE; Start 04/24/16 at 23 :30 Dextrose/Sodium Chloride 1,000 ml @ 60 mls/hr [id number] IV Last administered on 04/29/16 05:49; Admin Dose 60 MLS/HR; Start 04/26/16 at 11:30 Diltiazem HCl (Cardizem-D5W 125 Mg/125 ml Drip) 125 ml @ 5 mls/hr TITRATE IV Last administered on 04/27/16 22:28; Admin Dose 5 MLS/HR; Start 04/27/16 at 22:00 Metoprolol Tartrate (Lopressor) 5 mg Q4H PRN IV PRN HR>110 Hold SBP<100; Start 04/28/16 at 13:30 Enoxaparin Sodium (Lovenox) 55 mg Q12 SC ; Start 04/29/16 at 21:00 Furosemide (Lasix) 20 mg ONCE IV Last administered on 04/29/16 12:13; Admin Dose 20 MG; Start 04/29/16 at 12:00; Stop 04/29/16 at 23:00 Furosemide (Lasix) 40 mg DAILY IV ; Start 04/30/16 at 09:00 Metoprolol Tartrate (Lopressor) 25 mg BID PO ; Start 04/29/16 at 21:00 BRENT KENDRICK Apr 29, 2016 16:01
[2016-04-29] MEDS: QUETIAPINE 100 MG TAB GTB SCH (21:23)
[2016-04-29] MEDS: SENNA TAB GTB SCH (21:23)
[2016-04-29] MEDS: ENOXAPARIN 100 MG/ML SYG SC SCH (21:27)
[2016-04-30] VITALS (13 sets, daily range): BP systolic 101–166; BP diastolic 67–96; PULSE 44–62; RESP 17–22
[2016-04-30] MEDS: ALBUTEROL/IPRATROPIUM (NEB) 3 ML AMP HHN SCH ×4 (01:35→20:44)
[2016-04-30] MEDS: LORAZEPAM 0.5 MG TAB GTB SCH ×3 (06:00→18:01)
[2016-04-30 06:54] LABS: ADD SCAN DIFF NO
[2016-04-30 07:01] LABS: ABNORMAL IP MESSAGE 1; BASOPHILS % 0.9 % (0.0-2.0); EOSINOPHILS # 0.1 10^3/ul (0.0-0.5); EOSINOPHILS % 4.6 % (0.0-7.0); HEMOGLOBIN 9.4 g/dl (14.0-18.0); LYMPHOCYTES # 0.8 10^3/ul (0.8-2.9); LYMPHOCYTES % 38.5 % (15.0-51.0); MEAN CORPUSCULAR HEMOGLOBIN 27.3 pg (29.0-33.0); MEAN CORPUSCULAR HGB CONC 30.3 g/dl (32.0-37.0); MEAN CORPUSCULAR VOLUME 90.1 fl (82.0-101.0); MONOCYTE # 0.3 10^3/ul (0.3-0.9); MONOCYTES % 11.5 % (0.0-11.0); NEUTROPHILS % 44.5 % (39.0-77.0); PLATELET COUNT 122 10^3/UL (140-415); RED BLOOD COUNT 3.44 10^6/ul (4.70-6.10); RED CELL DISTRIBUTION WIDTH 16.6 % (11.5-14.5); WHITE BLOOD COUNT 2.2 10^3/ul (4.8-10.8)
[2016-04-30 07:20] LABS: POTASSIUM 3.3 mmol/L (3.5-5.1)
[2016-04-30 07:22] LABS: CREATININE 0.38 mg/dl (0.61-1.24)
[2016-04-30 07:24] LABS: CALCIUM 8.1 mg/dl (8.4-10.2)
[2016-04-30 07:27] LABS: TROPONIN-I 3.09 ng/ml (0.00-0.12)
[2016-04-30] MEDS: CHLORHEXIDINE GLUCONATE 15 ML UD CUP MM SCH ×2 (08:14→21:28)
[2016-04-30] MEDS: LACTULOSE 30ML CUP GTB SCH (08:14)
[2016-04-30] MEDS: THIAMINE 100 MG TAB GTB SCH (08:15)
[2016-04-30] MEDS: FAMOTIDINE 20 MG TAB GTB SCH ×2 (08:15→21:29)
[2016-04-30] MEDS: CALCIUM CARBONATE 500 MG CHEW TAB GTB SCH (08:15)
[2016-04-30] MEDS: FERROUS SULFATE 60 MG/ML 5ML CUP GTB SCH ×2 (08:15→21:28)
[2016-04-30] MEDS: MULTIVITAMINS/MINERALS TAB PO SCH (08:15)
[2016-04-30] MEDS: ASCORBIC ACID 500 MG TAB GTB SCH (08:15)
[2016-04-30] MEDS: FUROSEMIDE 40 MG INJ IV SCH (08:16)
[2016-04-30] MEDS: ENOXAPARIN 100 MG/ML SYG SC SCH ×2 (08:17→21:40)
[2016-04-30] MEDS: METOPROLOL 25 MG TAB PO SCH (08:17)
[2016-04-30] MEDS: QUETIAPINE 25 MG TAB GTB SCH ×2 (08:40→18:05)
[2016-04-30] MEDS ORDERED: FUROSEMIDE 40 MG INJ IV SCH (09:00)
--- NOTE | 2016-04-30 11:20 | CONS ---
Date/Time of Note Date/Time of Note DATE: 04/30/16 TIME: 11:15 Assessment/Plan Assessment/Plan Chief Complaint/Hosp Course 65 up male with acute hypoxic respiratory failure being admitted for sepsis secondary to ESBL bacteremia. Pt had a worsening normocytic anemia that was likely secondary to his underlying sepsis and antibiotic use. Anemia panel does also reveal evidence of anemia of chronic inflammation as well as iron deficiency. No evidence of Vit b12 nor folate deficiency. Low retic count does indicate the bone marrow is not appropriately responding likely from the overlying sepsis. Normal LDH and haptoglobin makes hemolysis unlikely. Pt is now off antibiotic and Hg has remained stable -continue to monitor Hg -continue treatment of underlying CHF -s/p 5 days of V iron. now on po iron Approximately 40 min were spent at patient's bedside and in coordination of his care Approximately 40 min were spent at patient's bedside and in coordination of his care Problems: Consultation Date/Type/Reason Admit Date/Time Apr 11, 2016 at 22:13 Initial Consult Date 04/21/16 Type of Consultation: Hematology Reason for Consultation anemia Referring Provider: ANNETTA AGUILAR MD 24 HR Interval Summary Free Text/Dictation no acute overnight events. no bleeding. remains on antibiotic and diuretics Exam/Review of Systems Vital Signs Vitals Vital Signs Date Time Temp Pulse Resp B/P Pulse Ox O2 Delivery O2 Flow Rate FiO2 04/30/16 11:08 98.7 46 18 154/93 97 04/30/16 08:30 8.0 04/30/16 07:42 35 04/30/16 01:39 Aerosol Intake and Output 04/29/16 04/29/16 04/30/16 15:00 23:00 07:00 Intake Total 920 ml Output Total 3000 ml 1001 ml Balance -3000 ml -81 ml Exam Constitutional: alert, oriented Head: atraumatic Eyes: nl conjunctiva ENMT: other (trach in place) Respiratory: crackles/rales Cardiovascular: regular rate and rhythm Gastrointestinal: soft Musculoskeletal: nl extremities to inspection, nl gait and stance Results Result Diagram: 04/30/16 0600 04/30/16 0600 Results 24 hrs Laboratory Tests Test 04/29/16 15:00 04/30/16 06:00 04/30/16 06:15 Creatine Kinase 88 62 Creatine Kinase Index 8.9 11.3 Creatinine Kinase MB (Mass) 7.84 H 7.00 H Troponin I 5.190 *H 3.090 *H Anion Gap 8 Basophils # 0.0 Basophils % 0.9 Blood Urea Nitrogen 12 Calcium Level 8.1 L Carbon Dioxide Level 38 H Chloride Level 94 L Creatinine 0.38 L Eosinophils # 0.1 Eosinophils % 4.6 Glucose Level 99 Hematocrit 31.0 L Hemoglobin 9.4 L Lymphocytes # 0.8 Lymphocytes % 38.5 Mean Corpuscular Hemoglobin 27.3 L Mean Corpuscular Hemoglobin Concent 30.3 L Mean Corpuscular Volume 90.1 Mean Platelet Volume 10.0 Monocytes # 0.3 Monocytes % 11.5 H Neutrophils # 1.0 L Neutrophils % 44.5 Nucleated Red Blood Cells # 0.0 Nucleated Red Blood Cells % 0.0 Platelet Count 122 L Potassium Level 3.3 L Red Blood Count 3.44 L Red Cell Distribution Width 16.6 H Sodium Level 137 White Blood Count 2.2 #L Medications Medications Current Medications Ondansetron HCl (Zofran Inj) 4 mg Q6H PRN IV NAUSEA AND/OR VOMITING Last administered on 04/24/16 21:00; Admin Dose 4 MG; Start 04/11/16 at 22:30 Acetaminophen (Tylenol Tab) 650 mg Q6H PRN PO PAIN LEVEL 1-3 OR FEVER; Start at 22:30 Morphine Sulfate (morphine) 2 mg Q4H PRN IV PAIN LEVEL 7-10 Last administered on 04/28/16 01:30; Admin Dose 2 MG; Start 04/11/16 at 22:30 Ascorbic Acid (Vitamin C) 500 mg DAILY GTB Last administered on 04/30/16 08:15 ; Admin Dose 500 MG; Start 04/12/16 at 09:00 Bisacodyl (Dulcolax) 10 mg DAILY PRN PO CONSTIPATION; Start 04/11/16 at 22:30 Chlorhexidine Gluconate (Peridex) 15 ml BID MM Last administered on 04/30/16 08:14; Admin Dose 15 ML; Start 04/12/16 at 09:00 Ferrous Sulfate (Feosol Liquid Cup) 300 mg BID GTB Last administered on 08:15; Admin Dose 300 MG; Start 04/12/16 at 09:00 Acetaminophen/ Hydrocodone Bitart ([place] (5/325)) 1 tab Q4 PRN GTB PAIN LEVEL 6 -10; Start 04/11/16 at 22:30 Lactulose (Enulose) 20 gm DAILY GTB Last administered on 04/30/16 08:14; Admin Dose 20 GM; Start 04/12/16 at 09:00 Quetiapine Fumarate (Seroquel) 25 mg BID@ GTB Last administered on 08:40; Admin Dose 25 MG; Start 04/12/16 at 09:00 Quetiapine Fumarate (Seroquel) 200 mg HS GTB Last administered on 04/29/16 21: 23; Admin Dose 200 MG; Start 04/12/16 at 21:00 Senna (Senokot) 1 tab QHS GTB Last administered on 04/29/16 21:23; Admin Dose 1 TAB; Start 04/12/16 at 21:00 Sodium Biphosphate/ Sodium Phosphate (Fleet Enema Pediatric) 66.6 ml DAILY PRN [place] CONSTIPATION; Start 04/11/16 at 22:30 Thiamine HCl (Vitamin B1) 100 mg DAILY GTB Last administered on 04/30/16 08:15 ; Admin Dose 100 MG; Start 04/12/16 at 09:00 Calcium Carbonate (Tums) 500 mg DAILY GTB Last administered on 04/30/16 08:15 ; Admin Dose 500 MG; Start 04/12/16 at 09:00 Multivitamins/ Minerals (Theragran-M) 1 tab DAILY PO Last administered on 08:15; Admin Dose 1 TAB; Start 04/12/16 at 09:00 Hydralazine HCl (Apresoline) 10 mg Q6H PRN IV SBP>170 Last administered on 08:38; Admin Dose 10 MG; Start 04/12/16 at 12:30 Famotidine (Pepcid) 20 mg Q12 GTB Last administered on 04/30/16 08:15; Admin Dose 20 MG; Start 04/19/16 at 21:00 Lorazepam (Ativan) 1 mg Q6 GTB Last administered on 04/29/16 23:55; Admin Dose 1 MG; Start 04/23/16 at 00:00 Lorazepam (Ativan) 1 mg Q4 PRN IV AGITATION/ANXIETY Last administered on 00:32; Admin Dose 1 MG; Start 04/24/16 at 21:00 Clonidine 0.1 mg 0.1 mg Q6H PRN PO ELEVATED BLOOD PRESSURE; Start 04/24/16 at 23 :30 Dextrose/Sodium Chloride 1,000 ml @ 60 mls/hr [id number] IV Last administered on 04/29/16 22:44; Admin Dose 60 MLS/HR; Start 04/26/16 at 11:30 Diltiazem HCl (Cardizem-D5W 125 Mg/125 ml Drip) 125 ml @ 5 mls/hr TITRATE IV Last administered on 04/27/16 22:28; Admin Dose 5 MLS/HR; Start 04/27/16 at 22:00 Metoprolol Tartrate (Lopressor) 5 mg Q4H PRN IV PRN HR>110 Hold SBP<100; Start 04/28/16 at 13:30 Enoxaparin Sodium (Lovenox) 55 mg Q12 SC Last administered on 04/30/16 08:17; Admin Dose 55 MG; Start 04/29/16 at 21:00 Furosemide (Lasix) 40 mg DAILY IV Last administered on 04/30/16 08:16; Admin Dose 40 MG; Start 04/30/16 at 09:00 Metoprolol Tartrate (Lopressor) 25 mg BID PO Last administered on 04/29/16 21: 29; Admin Dose 25 MG; Start 04/29/16 at 21:00 JSEI MONTEMAYOR M.D. Apr 30, 2016 11:20
--- NOTE | 2016-04-30 12:10 | CONS ---
Date/Time of Note Date/Time of Note DATE: 04/30/16 TIME: 12:06 Assessment/Plan Assessment/Plan Chief Complaint/Hosp Course IMPRESSION: 1. Wide complex tachycardia, cardiac arrhythmia. Rule out nonsustained ventricular tachycardia.-likely c/w abberant AF 2. Abnormal electrocardiogram, assess for acute coronary syndrome. 3. Congestive heart failure by chest x-ray, diastolic by most recent echo acute on chronic. 4. Hypertension with episodes of borderline hypotension requiring IV fluid bolus now improved. 5. Respiratory failure, chronic, status post tracheostomy. 6. Dysphagia, status post G-tube. 7. Psychiatric disorder. 8. Urinary tract infection. 9. Hypokalemia-improved 10. Anemia. 11. Leukopenia. 12.Nstemi-no current chest pain/decreasing enzymes 14. Bradycardia Recc: -Tele -Hold BB given bradycardia -start asa given nstemi and continue lovenox -Continue lasix diuresis -Trend cardiac enzymes which are downtrending -C discussed with patient but patient does not have clear understanding and would like to wait Problems: Consultation Date/Type/Reason Admit Date/Time Apr 11, 2016 at 22:13 Initial Consult Date 04/21/16 Type of Consultation: Cardiology Reason for Consultation Nstemi/WCT Referring Provider: ANNETTA AGUILAR MD Exam/Review of Systems Vital Signs Vitals Vital Signs Date Time Temp Pulse Resp B/P Pulse Ox O2 Delivery O2 Flow Rate FiO2 04/30/16 11:08 98.7 46 18 154/93 97 04/30/16 08:30 8.0 04/30/16 07:42 35 04/30/16 01:39 Aerosol Intake and Output 04/29/16 04/29/16 04/30/16 15:00 23:00 07:00 Intake Total 920 ml Output Total 3000 ml 1001 ml Balance -3000 ml -81 ml Exam Review of Systems: CONSTITUTIONAL: No fevers, chills. PULMONARY: No sob CARDIOVASCULAR: No chest pain/palpitations GASTROINTESTINAL: No nausea/vomiting. GENITOURINARY: No hematuria/dysuria. MUSCULOSKELETAL: No myagias/arthalgias. PSYCHIATRIC: The patient denies depression. NEUROLOGIC: lethargic Psych: no complaints Head: normocephalic ENMT: mucosa pink and moist Neck: jvd (9 cm water), other (trached), supple Respiratory: diminished breath sounds (at bases/B) Cardiovascular: regular rate and rhythm Gastrointestinal: non-tender, soft Musculoskeletal: muscle tone (normal) Extremities: edema (none) Neurological: other (No focal deficits) Results Result Diagram: 04/30/16 0600 04/30/16 0600 Results 24 hrs Laboratory Tests Test 04/29/16 15:00 04/30/16 06:00 04/30/16 06:15 Creatine Kinase 88 62 Creatine Kinase Index 8.9 11.3 Creatinine Kinase MB (Mass) 7.84 H 7.00 H Troponin I 5.190 *H 3.090 *H Anion Gap 8 Basophils # 0.0 Basophils % 0.9 Blood Urea Nitrogen 12 Calcium Level 8.1 L Carbon Dioxide Level 38 H Chloride Level 94 L Creatinine 0.38 L Eosinophils # 0.1 Eosinophils % 4.6 Glucose Level 99 Hematocrit 31.0 L Hemoglobin 9.4 L Lymphocytes # 0.8 Lymphocytes % 38.5 Mean Corpuscular Hemoglobin 27.3 L Mean Corpuscular Hemoglobin Concent 30.3 L Mean Corpuscular Volume 90.1 Mean Platelet Volume 10.0 Monocytes # 0.3 Monocytes % 11.5 H Neutrophils # 1.0 L Neutrophils % 44.5 Nucleated Red Blood Cells # 0.0 Nucleated Red Blood Cells % 0.0 Platelet Count 122 L Potassium Level 3.3 L Red Blood Count 3.44 L Red Cell Distribution Width 16.6 H Sodium Level 137 White Blood Count 2.2 #L Medications Medications Current Medications Ondansetron HCl (Zofran Inj) 4 mg Q6H PRN IV NAUSEA AND/OR VOMITING Last administered on 04/24/16 21:00; Admin Dose 4 MG; Start 04/11/16 at 22:30 Acetaminophen (Tylenol Tab) 650 mg Q6H PRN PO PAIN LEVEL 1-3 OR FEVER; Start at 22:30 Morphine Sulfate (morphine) 2 mg Q4H PRN IV PAIN LEVEL 7-10 Last administered on 04/28/16 01:30; Admin Dose 2 MG; Start 04/11/16 at 22:30 Ascorbic Acid (Vitamin C) 500 mg DAILY GTB Last administered on 04/30/16 08:15 ; Admin Dose 500 MG; Start 04/12/16 at 09:00 Bisacodyl (Dulcolax) 10 mg DAILY PRN PO CONSTIPATION; Start 04/11/16 at 22:30 Chlorhexidine Gluconate (Peridex) 15 ml BID MM Last administered on 04/30/16 08:14; Admin Dose 15 ML; Start 04/12/16 at 09:00 Ferrous Sulfate (Feosol Liquid Cup) 300 mg BID GTB Last administered on 08:15; Admin Dose 300 MG; Start 04/12/16 at 09:00 Acetaminophen/ Hydrocodone Bitart ([place] (5/325)) 1 tab Q4 PRN GTB PAIN LEVEL 6 -10; Start 04/11/16 at 22:30 Lactulose (Enulose) 20 gm DAILY GTB Last administered on 04/30/16 08:14; Admin Dose 20 GM; Start 04/12/16 at 09:00 Quetiapine Fumarate (Seroquel) 25 mg BID@ GTB Last administered on 08:40; Admin Dose 25 MG; Start 04/12/16 at 09:00 Quetiapine Fumarate (Seroquel) 200 mg HS GTB Last administered on 04/29/16 21: 23; Admin Dose 200 MG; Start 04/12/16 at 21:00 Senna (Senokot) 1 tab QHS GTB Last administered on 04/29/16 21:23; Admin Dose 1 TAB; Start 04/12/16 at 21:00 Sodium Biphosphate/ Sodium Phosphate (Fleet Enema Pediatric) 66.6 ml DAILY PRN [place] CONSTIPATION; Start 04/11/16 at 22:30 Thiamine HCl (Vitamin B1) 100 mg DAILY GTB Last administered on 04/30/16 08:15 ; Admin Dose 100 MG; Start 04/12/16 at 09:00 Calcium Carbonate (Tums) 500 mg DAILY GTB Last administered on 04/30/16 08:15 ; Admin Dose 500 MG; Start 04/12/16 at 09:00 Multivitamins/ Minerals (Theragran-M) 1 tab DAILY PO Last administered on 08:15; Admin Dose 1 TAB; Start 04/12/16 at 09:00 Hydralazine HCl (Apresoline) 10 mg Q6H PRN IV SBP>170 Last administered on 08:38; Admin Dose 10 MG; Start 04/12/16 at 12:30 Famotidine (Pepcid) 20 mg Q12 GTB Last administered on 04/30/16 08:15; Admin Dose 20 MG; Start 04/19/16 at 21:00 Lorazepam (Ativan) 1 mg Q6 GTB Last administered on 04/29/16 23:55; Admin Dose 1 MG; Start 04/23/16 at 00:00 Lorazepam (Ativan) 1 mg Q4 PRN IV AGITATION/ANXIETY Last administered on 00:32; Admin Dose 1 MG; Start 04/24/16 at 21:00 Clonidine 0.1 mg 0.1 mg Q6H PRN PO ELEVATED BLOOD PRESSURE; Start 04/24/16 at 23 :30 Dextrose/Sodium Chloride 1,000 ml @ 60 mls/hr [id number] IV Last administered on 04/29/16 22:44; Admin Dose 60 MLS/HR; Start 04/26/16 at 11:30 Diltiazem HCl (Cardizem-D5W 125 Mg/125 ml Drip) 125 ml @ 5 mls/hr TITRATE IV Last administered on 04/27/16 22:28; Admin Dose 5 MLS/HR; Start 04/27/16 at 22:00 Metoprolol Tartrate (Lopressor) 5 mg Q4H PRN IV PRN HR>110 Hold SBP<100; Start 04/28/16 at 13:30 Enoxaparin Sodium (Lovenox) 55 mg Q12 SC Last administered on 04/30/16 08:17; Admin Dose 55 MG; Start 04/29/16 at 21:00 Furosemide (Lasix) 40 mg DAILY IV Last administered on 04/30/16 08:16; Admin Dose 40 MG; Start 04/30/16 at 09:00 Metoprolol Tartrate (Lopressor) 25 mg BID PO Last administered on 04/29/16 21: 29; Admin Dose 25 MG; Start 04/29/16 at 21:00 LILI BRADEN Apr 30, 2016 12:10
--- NOTE | 2016-04-30 12:18 | CONS ---
Date/Time of Note Date/Time of Note DATE: 04/30/16 TIME: 12:13 Assessment/Plan Assessment/Plan Additional Assessment/Plan Assessment and recommendations; 1. Patient admitted for left-sided pneumonia due to mucous plugging with interval improvement. 2. Development of congestive heart failure with bilateral pleural effusions. Started on intravenous Lasix yesterday. 3. History of paraplegia. 4. History of respiratory failure patient currently maintained on tracheostomy. 5. History of dysphagia. Status post G-tube placement. 6. Alcoholic encephalopathy. Continue current treatment. We will plan on follow-up chest x-ray in 48 hours. Consultation Date/Type/Reason Admit Date/Time Apr 11, 2016 at 22:13 Initial Consult Date 04/12/16 Type of Consultation: Pulmonary Referring Provider: ANNETTA AGUILAR MD 24 HR Interval Summary Free Text/Dictation Patient condition stable. Has remained hemodynamically stable. Next General exam; elderly male, currently in no distress. Awake and alert. Patient still has soft restraints applied going to long-standing history of alcoholic encephalopathy with episodes of agitation. Exam/Review of Systems Vital Signs Vitals Vital Signs Date Time Temp Pulse Resp B/P Pulse Ox O2 Delivery O2 Flow Rate FiO2 04/30/16 11:08 98.7 46 18 154/93 97 04/30/16 08:30 8.0 04/30/16 07:42 35 04/30/16 01:39 Aerosol Intake and Output 04/29/16 04/29/16 04/30/16 15:00 23:00 07:00 Intake Total 920 ml Output Total 3000 ml 1001 ml Balance -3000 ml -81 ml Exam H EENT examination; supple neck, no JVD. No lymphadenopathy. Midline trachea. No thyromegaly. Patient is mostly edentulous has few remaining teeth in the lower jaw. Tracheostomy in place. Incision site is clean. Attached to T piece. Next Chest examination; diminished breath sounds in lung bases bilaterally, upper lobes are clear. S1-S2 audible, no murmurs. Regular rhythm. Abdomen examination; soft, nondistended. G-tube in place. Bowel sounds audible. Next Extremity exam is; no peripheral edema. 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 Results Result Diagram: 04/30/16 0600 04/30/16 0600 Results 24 hrs Laboratory Tests Test 04/29/16 15:00 04/30/16 06:00 04/30/16 06:15 Creatine Kinase 88 62 Creatine Kinase Index 8.9 11.3 Creatinine Kinase MB (Mass) 7.84 H 7.00 H Troponin I 5.190 *H 3.090 *H Anion Gap 8 Basophils # 0.0 Basophils % 0.9 Blood Urea Nitrogen 12 Calcium Level 8.1 L Carbon Dioxide Level 38 H Chloride Level 94 L Creatinine 0.38 L Eosinophils # 0.1 Eosinophils % 4.6 Glucose Level 99 Hematocrit 31.0 L Hemoglobin 9.4 L Lymphocytes # 0.8 Lymphocytes % 38.5 Mean Corpuscular Hemoglobin 27.3 L Mean Corpuscular Hemoglobin Concent 30.3 L Mean Corpuscular Volume 90.1 Mean Platelet Volume 10.0 Monocytes # 0.3 Monocytes % 11.5 H Neutrophils # 1.0 L Neutrophils % 44.5 Nucleated Red Blood Cells # 0.0 Nucleated Red Blood Cells % 0.0 Platelet Count 122 L Potassium Level 3.3 L Red Blood Count 3.44 L Red Cell Distribution Width 16.6 H Sodium Level 137 White Blood Count 2.2 #L Medications Medications Current Medications Ondansetron HCl (Zofran Inj) 4 mg Q6H PRN IV NAUSEA AND/OR VOMITING Last administered on 04/24/16 21:00; Admin Dose 4 MG; Start 04/11/16 at 22:30 Acetaminophen (Tylenol Tab) 650 mg Q6H PRN PO PAIN LEVEL 1-3 OR FEVER; Start at 22:30 Morphine Sulfate (morphine) 2 mg Q4H PRN IV PAIN LEVEL 7-10 Last administered on 04/28/16 01:30; Admin Dose 2 MG; Start 04/11/16 at 22:30 Ascorbic Acid (Vitamin C) 500 mg DAILY GTB Last administered on 04/30/16 08:15 ; Admin Dose 500 MG; Start 04/12/16 at 09:00 Bisacodyl (Dulcolax) 10 mg DAILY PRN PO CONSTIPATION; Start 04/11/16 at 22:30 Chlorhexidine Gluconate (Peridex) 15 ml BID MM Last administered on 04/30/16 08:14; Admin Dose 15 ML; Start 04/12/16 at 09:00 Ferrous Sulfate (Feosol Liquid Cup) 300 mg BID GTB Last administered on 08:15; Admin Dose 300 MG; Start 04/12/16 at 09:00 Acetaminophen/ Hydrocodone Bitart ([place] (5/325)) 1 tab Q4 PRN GTB PAIN LEVEL 6 -10; Start 04/11/16 at 22:30 Lactulose (Enulose) 20 gm DAILY GTB Last administered on 04/30/16 08:14; Admin Dose 20 GM; Start 04/12/16 at 09:00 Quetiapine Fumarate (Seroquel) 25 mg BID@ GTB Last administered on 08:40; Admin Dose 25 MG; Start 04/12/16 at 09:00 Quetiapine Fumarate (Seroquel) 200 mg HS GTB Last administered on 04/29/16 21: 23; Admin Dose 200 MG; Start 04/12/16 at 21:00 Senna (Senokot) 1 tab QHS GTB Last administered on 04/29/16 21:23; Admin Dose 1 TAB; Start 04/12/16 at 21:00 Sodium Biphosphate/ Sodium Phosphate (Fleet Enema Pediatric) 66.6 ml DAILY PRN [place] CONSTIPATION; Start 04/11/16 at 22:30 Thiamine HCl (Vitamin B1) 100 mg DAILY GTB Last administered on 04/30/16 08:15 ; Admin Dose 100 MG; Start 04/12/16 at 09:00 Calcium Carbonate (Tums) 500 mg DAILY GTB Last administered on 04/30/16 08:15 ; Admin Dose 500 MG; Start 04/12/16 at 09:00 Multivitamins/ Minerals (Theragran-M) 1 tab DAILY PO Last administered on 08:15; Admin Dose 1 TAB; Start 04/12/16 at 09:00 Hydralazine HCl (Apresoline) 10 mg Q6H PRN IV SBP>170 Last administered on 08:38; Admin Dose 10 MG; Start 04/12/16 at 12:30 Famotidine (Pepcid) 20 mg Q12 GTB Last administered on 04/30/16 08:15; Admin Dose 20 MG; Start 04/19/16 at 21:00 Lorazepam (Ativan) 1 mg Q6 GTB Last administered on 04/29/16 23:55; Admin Dose 1 MG; Start 04/23/16 at 00:00 Lorazepam (Ativan) 1 mg Q4 PRN IV AGITATION/ANXIETY Last administered on 00:32; Admin Dose 1 MG; Start 04/24/16 at 21:00 Clonidine 0.1 mg 0.1 mg Q6H PRN PO ELEVATED BLOOD PRESSURE; Start 04/24/16 at 23 :30 Dextrose/Sodium Chloride 1,000 ml @ 60 mls/hr [id number] IV Last administered on 04/29/16 22:44; Admin Dose 60 MLS/HR; Start 04/26/16 at 11:30 Diltiazem HCl (Cardizem-D5W 125 Mg/125 ml Drip) 125 ml @ 5 mls/hr TITRATE IV Last administered on 04/27/16 22:28; Admin Dose 5 MLS/HR; Start 04/27/16 at 22:00 Metoprolol Tartrate (Lopressor) 5 mg Q4H PRN IV PRN HR>110 Hold SBP<100; Start 04/28/16 at 13:30 Enoxaparin Sodium (Lovenox) 55 mg Q12 SC Last administered on 04/30/16 08:17; Admin Dose 55 MG; Start 04/29/16 at 21:00 Furosemide (Lasix) 40 mg DAILY IV Last administered on 04/30/16 08:16; Admin Dose 40 MG; Start 04/30/16 at 09:00 Metoprolol Tartrate (Lopressor) 25 mg BID PO Last administered on 04/29/16 21: 29; Admin Dose 25 MG; Start 04/29/16 at 21:00; Status Future Hold Aspirin (Ecotrin) 325 mg ONCE ONCE PO ; Start 04/30/16 at 12:30; Stop 04/30/16 at 12:31; Status KATHERYN OLIVERA Apr 30, 2016 12:18
[2016-04-30] MEDS ORDERED: POTASSIUM CHLORIDE 250 ML IVPB ONE (12:30)
[2016-04-30] MEDS ORDERED: ASPIRIN (EC) 325 MG TAB PO ONE (12:30)
--- NOTE | 2016-04-30 15:06 | PN ---
Date/Time of Note Date/Time of Note DATE: 04/30/16 TIME: 14:58 Assessment/Plan VTE Prophylaxis VTE Prophylaxis Intervention: SCD's Lines/Catheters IV Catheter Type (from [facility]): PICC Line Central line still needed: Yes Urinary Cath still in place: Yes Reason Cath still needed: urinary retention Assessment/Plan Chief Complaint/Hosp Course ASSESSMENT AND PLAN: - NSTEMI, continue aspirin and Lovenox. Dr. Espitia is following patient in cardiology consultation. - Atrial fibrillation with rapid ventricular response. Continue metoprolol. Continue telemetry monitoring. - Bilateral pleural effusions, status post right sided thoracentesis, pending thoracentesis of the left side. - Acute hypoxic respiratory failure. Dr. Anderson is following in pulmonology consultation. Continue ventilatory support and bronchodilators. - Possible healthcare-acquired left lower lung pneumonia versus aspiration. Continue antibiotics per ID. Dr. Rojas is following an infection disease consultation. - E. coli ESBL urinary tract infection, status post treatment. - Sepsis with Ecoli ESBL bacteremia 2 UTI, resolved. - Normocytic anemia. Dr Gaona is following in hematology consultation. - Dysphagia, with G-tube. Status post G-tube removal by patient. Patient passed swallow eval and was started on pured diet. Patient tolerates pured diet well. - History of chronic respiratory failure with tracheostomy. - Benign prostatic hypertrophy. - Schizoaffective disorder. Continue Seroquel and Ativan as needed for agitation. Continue Lovenox for deep venous thrombosis prophylaxis and Pepcid for peptic ulcer disease prophylaxis. Further recommendations based on clinical course. Plan of care discussed with Dr. Colunga. Problems: Subjective 24 Hr Interval Summary Free Text/Dictation Patient is awake alert breathing comfortably on trach with via T-tube with cool aerosol mist at 35%, patient denies chest pain. Exam/Review of Systems Vital Signs Vitals Vital Signs Date Time Temp Pulse Resp B/P Pulse Ox O2 Delivery O2 Flow Rate FiO2 04/30/16 14:13 8.0 35 04/30/16 14:13 72 18 96 Aerosol 04/30/16 11:08 98.7 154/93 Intake and Output 04/29/16 04/29/16 04/30/16 15:00 23:00 07:00 Intake Total 920 ml Output Total 3000 ml 1001 ml Balance -3000 ml -81 ml Exam GENERAL: A well-developed, cachectic gentleman, currently is awake, alert, follows immediate commands, otherwise confused. HEENT: Head is atraumatic, normocephalic. LYDIA. NECK: Supple, with tracheostomy at the base of the neck, with a moderate amount of secretions, no bleeding. LUNGS: Diminished at the bases. Patient has scattered severe rhonchi bilaterally. CARDIOVASCULAR: Normal S1, S2. No murmurs, gallops, clicks, rubs noted. ABDOMEN: Flat, soft, nondistended, nontender. Bowel sounds present. Patient has a G-tube with intact stoma. EXTREMITIES: Contractured. There is no edema, clubbing, cyanosis. Pulses equal bilaterally, 2+. SKIN: There is no rash, petechiae noted. NEUROLOGIC: Patient is awake, alert. Results Result Diagram: 04/30/16 0600 04/30/16 0600 Results 24 hrs Laboratory Tests Test 04/29/16 15:00 04/30/16 06:00 04/30/16 06:15 Creatine Kinase 88 62 Creatine Kinase Index 8.9 11.3 Creatinine Kinase MB (Mass) 7.84 H 7.00 H Troponin I 5.190 *H 3.090 *H Anion Gap 8 Basophils # 0.0 Basophils % 0.9 Blood Urea Nitrogen 12 Calcium Level 8.1 L Carbon Dioxide Level 38 H Chloride Level 94 L Creatinine 0.38 L Eosinophils # 0.1 Eosinophils % 4.6 Glucose Level 99 Hematocrit 31.0 L Hemoglobin 9.4 L Lymphocytes # 0.8 Lymphocytes % 38.5 Mean Corpuscular Hemoglobin 27.3 L Mean Corpuscular Hemoglobin Concent 30.3 L Mean Corpuscular Volume 90.1 Mean Platelet Volume 10.0 Monocytes # 0.3 Monocytes % 11.5 H Neutrophils # 1.0 L Neutrophils % 44.5 Nucleated Red Blood Cells # 0.0 Nucleated Red Blood Cells % 0.0 Platelet Count 122 L Potassium Level 3.3 L Red Blood Count 3.44 L Red Cell Distribution Width 16.6 H Sodium Level 137 White Blood Count 2.2 #L Medications Medications Current Medications Ondansetron HCl (Zofran Inj) 4 mg Q6H PRN IV NAUSEA AND/OR VOMITING Last administered on 04/24/16t 21:00; Admin Dose 4 MG; Start 04/11/16 at 22:30 Acetaminophen (Tylenol Tab) 650 mg Q6H PRN PO PAIN LEVEL 1-3 OR FEVER; Start at 22:30 Morphine Sulfate (morphine) 2 mg Q4H PRN IV PAIN LEVEL 7-10 Last administered on 04/28/16 01:30; Admin Dose 2 MG; Start 04/11/16 at 22:30 Ascorbic Acid (Vitamin C) 500 mg DAILY GTB Last administered on 04/30/16 08:15 ; Admin Dose 500 MG; Start 04/12/16 at 09:00 Bisacodyl (Dulcolax) 10 mg DAILY PRN PO CONSTIPATION; Start 04/11/16 at 22:30 Chlorhexidine Gluconate (Peridex) 15 ml BID MM Last administered on 04/30/16 08:14; Admin Dose 15 ML; Start 04/12/16 at 09:00 Ferrous Sulfate (Feosol Liquid Cup) 300 mg BID GTB Last administered on 08:15; Admin Dose 300 MG; Start 04/12/16 at 09:00 Acetaminophen/ Hydrocodone Bitart ([place] (5/325)) 1 tab Q4 PRN GTB PAIN LEVEL 6 -10; Start 04/11/16 at 22:30 Lactulose (Enulose) 20 gm DAILY GTB Last administered on 04/30/16 08:14; Admin Dose 20 GM; Start 04/12/16 at 09:00 Quetiapine Fumarate (Seroquel) 25 mg BID@ GTB Last administered on 08:40; Admin Dose 25 MG; Start 04/12/16 at 09:00 Quetiapine Fumarate (Seroquel) 200 mg HS GTB Last administered on 04/29/16 21: 23; Admin Dose 200 MG; Start 04/12/16 at 21:00 Senna (Senokot) 1 tab QHS GTB Last administered on 04/29/16 21:23; Admin Dose 1 TAB; Start 04/12/16 at 21:00 Sodium Biphosphate/ Sodium Phosphate (Fleet Enema Pediatric) 66.6 ml DAILY PRN [place] CONSTIPATION; Start 04/11/16 at 22:30 Thiamine HCl (Vitamin B1) 100 mg DAILY GTB Last administered on 04/30/16 08:15 ; Admin Dose 100 MG; Start 04/12/16 at 09:00 Calcium Carbonate (Tums) 500 mg DAILY GTB Last administered on 04/30/16 08:15 ; Admin Dose 500 MG; Start 04/12/16 at 09:00 Multivitamins/ Minerals (Theragran-M) 1 tab DAILY PO Last administered on 08:15; Admin Dose 1 TAB; Start 04/12/16 at 09:00 Hydralazine HCl (Apresoline) 10 mg Q6H PRN IV SBP>170 Last administered on 08:38; Admin Dose 10 MG; Start 04/12/16 at 12:30 Famotidine (Pepcid) 20 mg Q12 GTB Last administered on 04/30/16 08:15; Admin Dose 20 MG; Start 04/19/16 at 21:00 Lorazepam (Ativan) 1 mg Q6 GTB Last administered on 04/30/16 13:06; Admin Dose 1 MG; Start 04/23/16 at 00:00 Lorazepam (Ativan) 1 mg Q4 PRN IV AGITATION/ANXIETY Last administered on 00:32; Admin Dose 1 MG; Start 04/24/16 at 21:00 Clonidine 0.1 mg 0.1 mg Q6H PRN PO ELEVATED BLOOD PRESSURE; Start 04/24/16 at 23 :30 Dextrose/Sodium Chloride 1,000 ml @ 60 mls/hr [id number] IV Last administered on 04/29/16 22:44; Admin Dose 60 MLS/HR; Start 04/26/16 at 11:30 Diltiazem HCl (Cardizem-D5W 125 Mg/125 ml Drip) 125 ml @ 5 mls/hr TITRATE IV Last administered on 04/27/16 22:28; Admin Dose 5 MLS/HR; Start 04/27/16 at 22:00 Metoprolol Tartrate (Lopressor) 5 mg Q4H PRN IV PRN HR>110 Hold SBP<100; Start 04/28/16 at 13:30 Enoxaparin Sodium (Lovenox) 55 mg Q12 SC Last administered on 04/30/16 08:17; Admin Dose 55 MG; Start 04/29/16 at 21:00 Furosemide (Lasix) 40 mg DAILY IV Last administered on 04/30/16 08:16; Admin Dose 40 MG; Start 04/30/16 at 09:00 Metoprolol Tartrate 25 mg 25 mg BID PO Last administered on 04/29/16 21:29; Admin Dose 25 MG; Start 04/29/16 at 21:00; Status Future Hold Potassium Chloride (KCl 40 MEQ/250 ML NS) 250 ml @ 62.5 mls/hr ONCE ONCE IVPB ; Start 04/30/16 at 12:30; Stop 04/30/16 at 16:29 SHELBY BUNCH Apr 30, 2016 15:06
[2016-04-30] MEDS: DEXTROSE 5%-0.45% NACL 1,000 ML IV SCH (15:52)
[2016-04-30] MEDS: SENNA TAB GTB SCH (21:29)
[2016-04-30] MEDS: QUETIAPINE 100 MG TAB GTB SCH (21:29)
[2016-05-01] VITALS (12 sets, daily range): BP systolic 115–164; BP diastolic 75–92; PULSE 55–71; RESP 18–23
[2016-05-01] MEDS: ALBUTEROL/IPRATROPIUM (NEB) 3 ML AMP HHN SCH ×4 (01:51→22:00)
[2016-05-01 06:13] LABS: ADD SCAN DIFF NO
[2016-05-01 06:28] LABS: BASOPHILS % 0.3 % (0.0-2.0); EOSINOPHILS % 1.4 % (0.0-7.0); HEMATOCRIT 29.4 % (42.0-52.0); HEMOGLOBIN 9.1 g/dl (14.0-18.0); LYMPHOCYTES # 0.7 10^3/ul (0.8-2.9); LYMPHOCYTES % 23.5 % (15.0-51.0); MEAN CORPUSCULAR VOLUME 90.5 fl (82.0-101.0); MEAN PLATELET VOLUME 11.6 fl (7.4-10.4); MONOCYTE # 0.3 10^3/ul (0.3-0.9); MONOCYTES % 8.7 % (0.0-11.0); NEUTROPHIL # 1.9 10^3/ul (1.6-7.5); NEUTROPHILS % 66.1 % (39.0-77.0); PLATELET COUNT 156 10^3/UL (140-415); RED BLOOD COUNT 3.25 10^6/ul (4.70-6.10); RED CELL DISTRIBUTION WIDTH 16.6 % (11.5-14.5); WHITE BLOOD COUNT 2.9 10^3/ul (4.8-10.8)
[2016-05-01 06:29] LABS: POTASSIUM 3.8 mmol/L (3.5-5.1)
[2016-05-01 06:31] LABS: CREATININE 0.46 mg/dl (0.61-1.24)
[2016-05-01 06:32] LABS: CALCIUM 8.1 mg/dl (8.4-10.2)
[2016-05-01] MEDS: LORAZEPAM 0.5 MG TAB GTB SCH ×4 (06:35→17:21)
[2016-05-01 06:54] LABS: CK-MB 5.82 ng/ml (0.0-2.4); TROPONIN-I 2.43 ng/ml (0.00-0.12)
[2016-05-01] MEDS: DEXTROSE 5%-0.45% NACL 1,000 ML IV SCH ×2 (08:10→12:52)
[2016-05-01] MEDS: MULTIVITAMINS/MINERALS TAB PO SCH (09:32)
[2016-05-01] MEDS: FAMOTIDINE 20 MG TAB GTB SCH ×2 (09:32→21:35)
[2016-05-01] MEDS: CALCIUM CARBONATE 500 MG CHEW TAB GTB SCH (09:32)
[2016-05-01] MEDS: CHLORHEXIDINE GLUCONATE 15 ML UD CUP MM SCH ×2 (09:32→21:38)
[2016-05-01] MEDS: THIAMINE 100 MG TAB GTB SCH (09:32)
[2016-05-01] MEDS: LACTULOSE 30ML CUP GTB SCH (09:32)
[2016-05-01] MEDS: ASCORBIC ACID 500 MG TAB GTB SCH (09:32)
[2016-05-01] MEDS: FERROUS SULFATE 60 MG/ML 5ML CUP GTB SCH ×2 (09:32→21:34)
[2016-05-01] MEDS: FUROSEMIDE 40 MG INJ IV SCH (09:33)
[2016-05-01] MEDS: ENOXAPARIN 100 MG/ML SYG SC SCH ×2 (09:34→21:45)
[2016-05-01] MEDS: QUETIAPINE 25 MG TAB GTB SCH ×2 (09:39→17:21)
--- NOTE | 2016-05-01 12:35 | CONS ---
Date/Time of Note Date/Time of Note DATE: 05/01/16 TIME: 12:33 Assessment/Plan Assessment/Plan Additional Assessment/Plan Assessment and recommendations; 1. Patient admitted for severe left-sided pneumonia due to underlying mucous plug with marked clinical improvement. 2. Advanced alcoholic encephalopathy. 3. History of paraplegia. 4. Status post tracheostomy and G-tube placement. Patient maintained on T- piece. 5. Congestive heart failure. Bilateral pleural effusions. Patient started on Lasix intravenously. Continue current treatment. Obtain follow-up chest x-ray tomorrow morning. Consultation Date/Type/Reason Admit Date/Time Apr 11, 2016 at 22:13 Initial Consult Date 04/12/16 Type of Consultation: Pulmonary Referring Provider: ANNETTA AGUILAR MD 24 HR Interval Summary Free Text/Dictation Patient condition stable. Still exhibiting signs of alcoholic encephalopathy. Patient has to be soft wrist restrainted. General exam; middle-aged man, currently in no distress. Awake and alert. Exam/Review of Systems Vital Signs Vitals Vital Signs Date Time Temp Pulse Resp B/P Pulse Ox O2 Delivery O2 Flow Rate FiO2 05/01/16 11:48 97.8 65 18 136/86 99 05/01/16 08:32 8.0 35 05/01/16 08:32 Aerosol T Tube Intake and Output 04/30/16 04/30/16 05/01/16 15:00 23:00 07:00 Intake Total 600 ml 175 ml Output Total 1000 ml 200 ml Balance -400 ml -25 ml Exam HEENT exam; supple neck, positive JVD. No lymphadenopathy. Midline trachea. Pharynx is clear. Patient a few remaining teeth. No thyromegaly. Chest examination; diminished breath on lung bases bilaterally. Upper lobes are clear to auscultation. S1-S2 audible, no murmurs. Regular rhythm. Abdomen examination; soft, G-tube in place. Nondistended. No organomegaly. Bowel sounds audible. Extremity examination; no peripheral edema. 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 Results Result Diagram: 05/01/16 0542 05/01/16 0542 Results 24 hrs Laboratory Tests Test 05/01/16 05:42 Anion Gap 8 Basophils # 0.0 Basophils % 0.3 Blood Urea Nitrogen 15 Calcium Level 8.1 L Carbon Dioxide Level 40 H Chloride Level 94 L Creatine Kinase 33 Creatine Kinase Index 17.6 Creatinine 0.46 L Creatinine Kinase MB (Mass) 5.82 H Eosinophils # 0.0 Eosinophils % 1.4 Glucose Level 95 Hematocrit 29.4 L Hemoglobin 9.1 L Lymphocytes # 0.7 L Lymphocytes % 23.5 Mean Corpuscular Hemoglobin 28.0 L Mean Corpuscular Hemoglobin Concent 31.0 L Mean Corpuscular Volume 90.5 Mean Platelet Volume 11.6 H Monocytes # 0.3 Monocytes % 8.7 Neutrophils # 1.9 Neutrophils % 66.1 Nucleated Red Blood Cells # 0.0 Nucleated Red Blood Cells % 0.0 Platelet Count 156 # Potassium Level 3.8 Red Blood Count 3.25 L Red Cell Distribution Width 16.6 H Sodium Level 138 Troponin I 2.430 *H White Blood Count 2.9 #L Medications Medications Current Medications Ondansetron HCl (Zofran Inj) 4 mg Q6H PRN IV NAUSEA AND/OR VOMITING Last administered on 04/24/16 21:00; Admin Dose 4 MG; Start 04/11/16 at 22:30 Acetaminophen (Tylenol Tab) 650 mg Q6H PRN PO PAIN LEVEL 1-3 OR FEVER; Start at 22:30 Morphine Sulfate (morphine) 2 mg Q4H PRN IV PAIN LEVEL 7-10 Last administered on 04/28/16 01:30; Admin Dose 2 MG; Start 04/11/16 at 22:30 Ascorbic Acid (Vitamin C) 500 mg DAILY GTB Last administered on 05/01/16 09:32 ; Admin Dose 500 MG; Start 04/12/16 at 09:00 Bisacodyl (Dulcolax) 10 mg DAILY PRN PO CONSTIPATION; Start 04/11/16 at 22:30 Chlorhexidine Gluconate (Peridex) 15 ml BID MM Last administered on 05/01/16 09:32; Admin Dose 15 ML; Start 04/12/16 at 09:00 Ferrous Sulfate (Feosol Liquid Cup) 300 mg BID GTB Last administered on 09:32; Admin Dose 300 MG; Start 04/12/16 at 09:00 Acetaminophen/ Hydrocodone Bitart ([place] (5/325)) 1 tab Q4 PRN GTB PAIN LEVEL 6 -10; Start 04/11/16 at 22:30 Lactulose (Enulose) 20 gm DAILY GTB Last administered on 05/01/16 09:32; Admin Dose 20 GM; Start 04/12/16 at 09:00 Quetiapine Fumarate (Seroquel) 25 mg BID@ GTB Last administered on 09:39; Admin Dose 25 MG; Start 04/12/16 at 09:00 Quetiapine Fumarate (Seroquel) 200 mg HS GTB Last administered on 04/30/16 21: 29; Admin Dose 200 MG; Start 04/12/16 at 21:00 Senna (Senokot) 1 tab QHS GTB Last administered on 04/30/16 21:29; Admin Dose 1 TAB; Start 04/12/16 at 21:00 Sodium Biphosphate/ Sodium Phosphate (Fleet Enema Pediatric) 66.6 ml DAILY PRN [place] CONSTIPATION; Start 04/11/16 at 22:30 Thiamine HCl (Vitamin B1) 100 mg DAILY GTB Last administered on 05/01/16 09:32 ; Admin Dose 100 MG; Start 04/12/16 at 09:00 Calcium Carbonate (Tums) 500 mg DAILY GTB Last administered on 05/01/16 09:32 ; Admin Dose 500 MG; Start 04/12/16 at 09:00 Multivitamins/ Minerals (Theragran-M) 1 tab DAILY PO Last administered on 09:32; Admin Dose 1 TAB; Start 04/12/16 at 09:00 Hydralazine HCl (Apresoline) 10 mg Q6H PRN IV SBP>170 Last administered on 08:38; Admin Dose 10 MG; Start 04/12/16 at 12:30 Famotidine (Pepcid) 20 mg Q12 GTB Last administered on 05/01/16 09:32; Admin Dose 20 MG; Start 04/19/16 at 21:00 Lorazepam (Ativan) 1 mg Q6 GTB Last administered on 05/01/16 06:35; Admin Dose 1 MG; Start 04/23/16 at 00:00 Lorazepam (Ativan) 1 mg Q4 PRN IV AGITATION/ANXIETY Last administered on 00:32; Admin Dose 1 MG; Start 04/24/16 at 21:00 Clonidine 0.1 mg 0.1 mg Q6H PRN PO ELEVATED BLOOD PRESSURE; Start 04/24/16 at 23 :30 Dextrose/Sodium Chloride 1,000 ml @ 60 mls/hr [id number] IV Last administered on 04/30/16 15:52; Admin Dose 60 MLS/HR; Start 04/26/16 at 11:30 Diltiazem HCl (Cardizem-D5W 125 Mg/125 ml Drip) 125 ml @ 5 mls/hr TITRATE IV Last administered on 04/27/16 22:28; Admin Dose 5 MLS/HR; Start 04/27/16 at 22:00 Metoprolol Tartrate (Lopressor) 5 mg Q4H PRN IV PRN HR>110 Hold SBP<100; Start 04/28/16 at 13:30 Enoxaparin Sodium (Lovenox) 55 mg Q12 SC Last administered on 05/01/16 09:34; Admin Dose 55 MG; Start 04/29/16 at 21:00 Furosemide (Lasix) 40 mg DAILY IV Last administered on 05/01/16 09:33; Admin Dose 40 MG; Start 04/30/16 at 09:00 Metoprolol Tartrate (Lopressor) 25 mg BID PO Last administered on 04/29/16 21: 29; Admin Dose 25 MG; Start 04/29/16 at 21:00; Status Future Hold KATHERYN LAWTON May 01, 2016 12:35
--- NOTE | 2016-05-01 13:34 | PN ---
Date/Time of Note Date/Time of Note DATE: 05/01/16 TIME: 13:32 Assessment/Plan VTE Prophylaxis VTE Prophylaxis Intervention: LMWH Lines/Catheters IV [facility] (from [facility] PICC Line Central line still needed: Yes Urinary Cath still in place: Yes Reason Cath still needed: urinary retention Assessment/Plan Assessment/Plan - NSTEMI, continue aspirin and Lovenox. - per Dr. Espitia is in cardiology consultation. - Atrial fibrillation with rapid ventricular response. - per Dr. Espitia in cardiology consultation. Continue metoprolol. Continue telemetry monitoring. - Bilateral pleural effusions, status post right sided thoracentesis, pending thoracentesis of the left side. - Acute hypoxic respiratory failure. on Vent now - per Dr. Anderson in pulmonology consultation. - Continue ventilatory support and bronchodilators. - Possible healthcare-acquired left lower lung pneumonia versus aspiration. - Continue antibiotics per ID. - Dr. Rojas is following an infection disease consultation. - E. coli ESBL urinary tract infection. Continue Ertapenem. - Sepsis with Ecoli ESBL bacteremia 2 UTI. - Normocytic anemia. - Dr Gaona is following in hematology consultation. - monitor H/H, bleeding - Dysphagia, with G-tube. - aspiration precautions - History of chronic respiratory failure with tracheostomy. - Benign prostatic hypertrophy. - Schizoaffective disorder. Continue Seroquel and Ativan as needed for agitation. - Lovenox for deep venous thrombosis prophylaxis- - Pepcid for peptic ulcer disease prophylaxis. Further recommendations based on clinical course. Plan of care discussed with Dr. Colunga. Subjective 24 Hr Interval Summary Constitutional: requiring IVF, requiring O2 ENT: no complaints Respiratory: shortness of breath Cardiovascular: no complaints Gastrointestinal: no complaints Genitourinary: no complaints Musculoskeletal: no complaints Skin: no complaints Neurologic: no complaints Endocrine: no complaints Psychological: no complaints Immunologic: no complaints Exam/Review of Systems Vital Signs Vitals Vital Signs Date Time Temp Pulse Resp B/P Pulse Ox O2 Delivery O2 Flow Rate FiO2 05/01/16 13:21 96 8.0 35 05/01/16 13:21 60 20 Aerosol Mask 05/01/16 11:48 97.8 136/86 Intake and Output 04/30/16 04/30/16 05/01/16 15:00 23:00 07:00 Intake Total 600 ml 175 ml Output Total 1000 ml 200 ml Balance -400 ml -25 ml Exam Constitutional: alert, oriented (x1 name only) Eyes: nl sclera ENMT: nl external ears & nose Neck: non-tender Respiratory: diminished breath sounds Cardiovascular: nl pulses Gastrointestinal: non-tender, soft Musculoskeletal: muscle weakness (BUE. BLE contractures- Cont PT), other (BUE/ BLE contractures.) Extremities: other (contractures BUE, BLE) Neurological: other (alert, awake, follows simple commands) Skin: other Lymph: nontender Results Result Diagram: 05/01/1654105/01/16541 Results 24 hrs Laboratory Tests Test 05/01/16 05:42 Anion Gap 8 Basophils # 0.0 Basophils % 0.3 Blood Urea Nitrogen 15 Calcium Level 8.1 L Carbon Dioxide Level 40 H Chloride Level 94 L Creatine Kinase 33 Creatine Kinase Index 17.6 Creatinine 0.46 L Creatinine Kinase MB (Mass) 5.82 H Eosinophils # 0.0 Eosinophils % 1.4 Glucose Level 95 Hematocrit 29.4 L Hemoglobin 9.1 L Lymphocytes # 0.7 L Lymphocytes % 23.5 Mean Corpuscular Hemoglobin 28.0 L Mean Corpuscular Hemoglobin Concent 31.0 L Mean Corpuscular Volume 90.5 Mean Platelet Volume 11.6 H Monocytes # 0.3 Monocytes % 8.7 Neutrophils # 1.9 Neutrophils % 66.1 Nucleated Red Blood Cells # 0.0 Nucleated Red Blood Cells % 0.0 Platelet Count 156 # Potassium Level 3.8 Red Blood Count 3.25 L Red Cell Distribution Width 16.6 H Sodium Level 138 Troponin I 2.430 *H White Blood Count 2.9 #L Medications Medications Current Medications Ondansetron HCl (Zofran Inj) 4 mg Q6H PRN IV NAUSEA AND/OR VOMITING Last administered on 04/24/16 21:00; Admin Dose 4 MG; Start 04/11/16 at 22:30 Acetaminophen (Tylenol Tab) 650 mg Q6H PRN PO PAIN LEVEL 1-3 OR FEVER; Start at 22:30 Morphine Sulfate (morphine) 2 mg Q4H PRN IV PAIN LEVEL 7-10 Last administered on 04/28/16 01:30; Admin Dose 2 MG; Start 04/11/16 at 22:30 Ascorbic Acid (Vitamin C) 500 mg DAILY GTB Last administered on 05/01/16 09:32 ; Admin Dose 500 MG; Start 04/12/16 at 09:00 Bisacodyl (Dulcolax) 10 mg DAILY PRN PO CONSTIPATION; Start 04/11/16 at 22:30 Chlorhexidine Gluconate (Peridex) 15 ml BID MM Last administered on 05/01/16 09:32; Admin Dose 15 ML; Start 04/12/16 at 09:00 Ferrous Sulfate (Feosol Liquid Cup) 300 mg BID GTB Last administered on 09:32; Admin Dose 300 MG; Start 04/12/16 at 09:00 Acetaminophen/ Hydrocodone Bitart ([place] (5/325)) 1 tab Q4 PRN GTB PAIN LEVEL 6 -10; Start 04/11/16 at 22:30 Lactulose (Enulose) 20 gm DAILY GTB Last administered on 05/01/16 09:32; Admin Dose 20 GM; Start 04/12/16 at 09:00 Quetiapine Fumarate (Seroquel) 25 mg BID@ GTB Last administered on 09:39; Admin Dose 25 MG; Start 04/12/16 at 09:00 Quetiapine Fumarate (Seroquel) 200 mg HS GTB Last administered on 04/30/16 21: 29; Admin Dose 200 MG; Start 04/12/16 at 21:00 Senna (Senokot) 1 tab QHS GTB Last administered on 04/30/16 21:29; Admin Dose 1 TAB; Start 04/12/16 at 21:00 Sodium Biphosphate/ Sodium Phosphate (Fleet Enema Pediatric) 66.6 ml DAILY PRN [place] CONSTIPATION; Start 04/11/16 at 22:30 Thiamine HCl (Vitamin B1) 100 mg DAILY GTB Last administered on 05/01/16 09:32 ; Admin Dose 100 MG; Start 04/12/16 at 09:00 Calcium Carbonate (Tums) 500 mg DAILY GTB Last administered on 05/01/16 09:32 ; Admin Dose 500 MG; Start 04/12/16 at 09:00 Multivitamins/ Minerals (Theragran-M) 1 tab DAILY PO Last administered on 09:32; Admin Dose 1 TAB; Start 04/12/16 at 09:00 Hydralazine HCl (Apresoline) 10 mg Q6H PRN IV SBP>170 Last administered on 08:38; Admin Dose 10 MG; Start 04/12/16 at 12:30 Famotidine (Pepcid) 20 mg Q12 GTB Last administered on 05/01/16 09:32; Admin Dose 20 MG; Start 04/19/16 at 21:00 Lorazepam (Ativan) 1 mg Q6 GTB Last administered on 05/01/16 12:48; Admin Dose 1 MG; Start 04/23/16 at 00:00 Lorazepam (Ativan) 1 mg Q4 PRN IV AGITATION/ANXIETY Last administered on 00:32; Admin Dose 1 MG; Start 04/24/16 at 21:00 Clonidine 0.1 mg 0.1 mg Q6H PRN PO ELEVATED BLOOD PRESSURE; Start 04/24/16 at 23 :30 Dextrose/Sodium Chloride 1,000 ml @ 60 mls/hr [id number] IV Last administered on 05/01/16 12:52; Admin Dose 60 MLS/HR; Start 04/26/16 at 11:30 Diltiazem HCl (Cardizem-D5W 125 Mg/125 ml Drip) 125 ml @ 5 mls/hr TITRATE IV Last administered on 04/27/16 22:28; Admin Dose 5 MLS/HR; Start 04/27/16 at 22:00 Metoprolol Tartrate (Lopressor) 5 mg Q4H PRN IV PRN HR>110 Hold SBP<100; Start 04/28/16 at 13:30 Enoxaparin Sodium (Lovenox) 55 mg Q12 SC Last administered on 05/01/16 09:34; Admin Dose 55 MG; Start 04/29/16 at 21:00 Furosemide (Lasix) 40 mg DAILY IV Last administered on 05/01/16 09:33; Admin Dose 40 MG; Start 04/30/16 at 09:00 Metoprolol Tartrate (Lopressor) 25 mg BID PO Last administered on 04/29/16 21: 29; Admin Dose 25 MG; Start 04/29/16 at 21:00; Status Future Hold BRENT KENDRICK May 01, 2016 13:34
--- NOTE | 2016-05-01 14:40 | CONS ---
Date/Time of Note Date/Time of Note DATE: 05/01/16 TIME: 14:37 Assessment/Plan Assessment/Plan Chief Complaint/Hosp Course IMPRESSION: 1. Wide complex tachycardia, cardiac arrhythmia. Rule out nonsustained ventricular tachycardia.-likely c/w abberant AF 2. Abnormal electrocardiogram, assess for acute coronary syndrome. 3. Congestive heart failure by chest x-ray, diastolic by most recent echo acute on chronic. 4. Hypertension with episodes of borderline hypotension requiring IV fluid bolus now improved. 5. Respiratory failure, chronic, status post tracheostomy. 6. Dysphagia, status post G-tube. 7. Psychiatric disorder. 8. Urinary tract infection. 9. Hypokalemia-improved 10. Anemia. 11. Leukopenia. 12.Nstemi-no current chest pain/decreasing enzymes 14. Bradycardia Recc: -Tele -Hold BB given bradycardia -Continue lovenox/asa medaical therapy for nstemi with cvurrently decreasing cardiac enzymes -Hold lasix and check CXR -Trend cardiac enzymes which are downtrending -[facility] discussed with patient but patient does not have clear understanding and would like to wait Problems: Consultation Date/Type/Reason Admit Date/Time Apr 11, 2016 at 22:13 Initial Consult Date 04/21/16 Type of Consultation: Cardiology Reason for Consultation NSVT/Nstemi Referring Provider: ANNETTA AGUILAR MD Exam/Review of Systems Vital Signs Vitals Vital Signs Date Time Temp Pulse Resp B/P Pulse Ox O2 Delivery O2 Flow Rate FiO2 05/01/16 13:21 96 8.0 35 05/01/16 13:21 60 20 Aerosol Mask 05/01/16 11:48 97.8 136/86 Intake and Output 04/30/16 04/30/16 05/01/16 15:00 23:00 07:00 Intake Total 600 ml 175 ml Output Total 1000 ml 200 ml Balance -400 ml -25 ml Exam Review of Systems: CONSTITUTIONAL: No fevers, chills. PULMONARY: trached CARDIOVASCULAR: No chest pain/palpitations GASTROINTESTINAL: No nausea/vomiting. GENITOURINARY: No hematuria/dysuria. MUSCULOSKELETAL: No myagias/arthalgias. PSYCHIATRIC: The patient denies depression. NEUROLOGIC: generalized weakness Constitutional: alert Psych: no complaints Head: normocephalic Neck: other (trach in place) Respiratory: diminished breath sounds (at bases/B) Cardiovascular: regular rate and rhythm Gastrointestinal: non-tender, soft Musculoskeletal: muscle tone (normal) Extremities: edema (none), other (contracted) Neurological: other (Nofocal deficits) Results Result Diagram: 05/01/16 0542 05/01/16 0542 Results 24 hrs Laboratory Tests Test 05/01/16 05:42 Anion Gap 8 Basophils # 0.0 Basophils % 0.3 Blood Urea Nitrogen 15 Calcium Level 8.1 L Carbon Dioxide Level 40 H Chloride Level 94 L Creatine Kinase 33 Creatine Kinase Index 17.6 Creatinine 0.46 L Creatinine Kinase MB (Mass) 5.82 H Eosinophils # 0.0 Eosinophils % 1.4 Glucose Level 95 Hematocrit 29.4 L Hemoglobin 9.1 L Lymphocytes # 0.7 L Lymphocytes % 23.5 Mean Corpuscular Hemoglobin 28.0 L Mean Corpuscular Hemoglobin Concent 31.0 L Mean Corpuscular Volume 90.5 Mean Platelet Volume 11.6 H Monocytes # 0.3 Monocytes % 8.7 Neutrophils # 1.9 Neutrophils % 66.1 Nucleated Red Blood Cells # 0.0 Nucleated Red Blood Cells % 0.0 Platelet Count 156 # Potassium Level 3.8 Red Blood Count 3.25 L Red Cell Distribution Width 16.6 H Sodium Level 138 Troponin I 2.430 *H White Blood Count 2.9 #L Medications Medications Current Medications Ondansetron HCl (Zofran Inj) 4 mg Q6H PRN IV NAUSEA AND/OR VOMITING Last administered on 04/24/16 21:00; Admin Dose 4 MG; Start 04/11/16 at 22:30 Acetaminophen (Tylenol Tab) 650 mg Q6H PRN PO PAIN LEVEL 1-3 OR FEVER; Start at 22:30 Morphine Sulfate (morphine) 2 mg Q4H PRN IV PAIN LEVEL 7-10 Last administered on 04/28/16 01:30; Admin Dose 2 MG; Start 04/11/16 at 22:30 Ascorbic Acid (Vitamin C) 500 mg DAILY GTB Last administered on 05/01/16 09:32 ; Admin Dose 500 MG; Start 04/12/16 at 09:00 Bisacodyl (Dulcolax) 10 mg DAILY PRN PO CONSTIPATION; Start 04/11/16 at 22:30 Chlorhexidine Gluconate (Peridex) 15 ml BID MM Last administered on 05/01/16 09:32; Admin Dose 15 ML; Start 04/12/16 at 09:00 Ferrous Sulfate (Feosol Liquid Cup) 300 mg BID GTB Last administered on 09:32; Admin Dose 300 MG; Start 04/12/16 at 09:00 Acetaminophen/ Hydrocodone Bitart ([place] (5/325)) 1 tab Q4 PRN GTB PAIN LEVEL 6 -10; Start 04/11/16 at 22:30 Lactulose (Enulose) 20 gm DAILY GTB Last administered on 05/01/16 09:32; Admin Dose 20 GM; Start 04/12/16 at 09:00 Quetiapine Fumarate (Seroquel) 25 mg BID@ GTB Last administered on 09:39; Admin Dose 25 MG; Start 04/12/16 at 09:00 Quetiapine Fumarate (Seroquel) 200 mg HS GTB Last administered on 04/30/16 21: 29; Admin Dose 200 MG; Start 04/12/16 at 21:00 Senna (Senokot) 1 tab QHS GTB Last administered on 04/30/16 21:29; Admin Dose 1 TAB; Start 04/12/16 at 21:00 Sodium Biphosphate/ Sodium Phosphate (Fleet Enema Pediatric) 66.6 ml DAILY PRN [place] CONSTIPATION; Start 04/11/16 at 22:30 Thiamine HCl (Vitamin B1) 100 mg DAILY GTB Last administered on 05/01/16 09:32 ; Admin Dose 100 MG; Start 04/12/16 at 09:00 Calcium Carbonate (Tums) 500 mg DAILY GTB Last administered on 05/01/16 09:32 ; Admin Dose 500 MG; Start 04/12/16 at 09:00 Multivitamins/ Minerals (Theragran-M) 1 tab DAILY PO Last administered on 09:32; Admin Dose 1 TAB; Start 04/12/16 at 09:00 Hydralazine HCl (Apresoline) 10 mg Q6H PRN IV SBP>170 Last administered on 08:38; Admin Dose 10 MG; Start 04/12/16 at 12:30 Famotidine (Pepcid) 20 mg Q12 GTB Last administered on 05/01/16 09:32; Admin Dose 20 MG; Start 04/19/16 at 21:00 Lorazepam (Ativan) 1 mg Q6 GTB Last administered on 05/01/16 12:48; Admin Dose 1 MG; Start 04/23/16 at 00:00 Lorazepam (Ativan) 1 mg Q4 PRN IV AGITATION/ANXIETY Last administered on 00:32; Admin Dose 1 MG; Start 04/24/16 at 21:00 Clonidine 0.1 mg 0.1 mg Q6H PRN PO ELEVATED BLOOD PRESSURE; Start 04/24/16 at 23 :30 Dextrose/Sodium Chloride 1,000 ml @ 60 mls/hr [id number] IV Last administered on 05/01/16 12:52; Admin Dose 60 MLS/HR; Start 04/26/16 at 11:30 Diltiazem HCl (Cardizem-D5W 125 Mg/125 ml Drip) 125 ml @ 5 mls/hr TITRATE IV Last administered on 04/27/16 22:28; Admin Dose 5 MLS/HR; Start 04/27/16 at 22:00 Metoprolol Tartrate (Lopressor) 5 mg Q4H PRN IV PRN HR>110 Hold SBP<100; Start 04/28/16 at 13:30 Enoxaparin Sodium (Lovenox) 55 mg Q12 SC Last administered on 05/01/16 09:34; Admin Dose 55 MG; Start 04/29/16 at 21:00 Furosemide (Lasix) 40 mg DAILY IV Last administered on 05/01/16 09:33; Admin Dose 40 MG; Start 04/30/16 at 09:00 Metoprolol Tartrate (Lopressor) 25 mg BID PO Last administered on 04/29/16 21: 29; Admin Dose 25 MG; Start 04/29/16 at 21:00; Status Future Hold LILI BRADEN May 01, 2016 14:40
[2016-05-01] MEDS: QUETIAPINE 100 MG TAB GTB SCH (21:34)
[2016-05-01] MEDS: SENNA TAB GTB SCH (21:35)
[2016-05-01] MEDS: LORAZEPAM 2 MG INJ IV PRN (21:52)
[2016-05-02] VITALS (33 sets, daily range): BP systolic 111–168; BP diastolic 68–110; PULSE 45–88; RESP 12–20
[2016-05-02] MEDS: ALBUTEROL/IPRATROPIUM (NEB) 3 ML AMP HHN SCH ×4 (01:41→20:00)
[2016-05-02 05:58] LABS: ADD SCAN DIFF NO
[2016-05-02] MEDS: LORAZEPAM 1 MG TAB GTB SCH ×5 (06:00→23:23)
[2016-05-02 06:10] LABS: BASOPHILS % 0.5 % (0.0-2.0); EOSINOPHILS % 1.4 % (0.0-7.0); HEMATOCRIT 32.3 % (42.0-52.0); HEMOGLOBIN 9.7 g/dl (14.0-18.0); LYMPHOCYTES # 0.6 10^3/ul (0.8-2.9); LYMPHOCYTES % 28.6 % (15.0-51.0); MEAN CORPUSCULAR HEMOGLOBIN 27.2 pg (29.0-33.0); MEAN CORPUSCULAR VOLUME 90.7 fl (82.0-101.0); MEAN PLATELET VOLUME 9.9 fl (7.4-10.4); MONOCYTE # 0.2 10^3/ul (0.3-0.9); MONOCYTES % 9.5 % (0.0-11.0); NEUTROPHIL # 1.3 10^3/ul (1.6-7.5); NEUTROPHILS % 59.5 % (39.0-77.0); PLATELET COUNT 104 10^3/UL (140-415); RED BLOOD COUNT 3.56 10^6/ul (4.70-6.10); RED CELL DISTRIBUTION WIDTH 16.8 % (11.5-14.5); WHITE BLOOD COUNT 2.2 10^3/ul (4.8-10.8)
[2016-05-02 06:24] LABS: POTASSIUM 3.7 mmol/L (3.5-5.1)
[2016-05-02 06:26] LABS: CREATININE 0.43 mg/dl (0.61-1.24)
[2016-05-02 06:27] LABS: CALCIUM 7.9 mg/dl (8.4-10.2)
[2016-05-02] MEDS: DEXTROSE 5%-0.45% NACL 1,000 ML IV SCH (06:35)
[2016-05-02] MEDS: LORAZEPAM 2 MG INJ IV PRN ×3 (06:35→22:31)
[2016-05-02] MEDS: CHLORHEXIDINE GLUCONATE 15 ML UD CUP MM SCH ×2 (10:08→20:46)
[2016-05-02] MEDS: FERROUS SULFATE 60 MG/ML 5ML CUP GTB SCH ×2 (10:08→20:45)
[2016-05-02] MEDS: LACTULOSE 30ML CUP GTB SCH (10:08)
[2016-05-02] MEDS: THIAMINE 100 MG TAB GTB SCH (10:09)
[2016-05-02] MEDS: FAMOTIDINE 20 MG TAB GTB SCH ×2 (10:09→20:45)
[2016-05-02] MEDS: CALCIUM CARBONATE 500 MG CHEW TAB GTB SCH (10:09)
[2016-05-02] MEDS: ASCORBIC ACID 500 MG TAB GTB SCH (10:09)
[2016-05-02] MEDS: MULTIVITAMINS/MINERALS TAB PO SCH (10:09)
[2016-05-02] MEDS: ENOXAPARIN 100 MG/ML SYG SC SCH (10:12)
[2016-05-02] MEDS: QUETIAPINE 25 MG TAB GTB SCH ×2 (10:15→17:00)
--- NOTE | 2016-05-02 11:39 | RADRPT ---
PROCEDURE: XR Chest. CLINICAL INDICATION: Shortness of breath. TECHNIQUE: Single frontal view. COMPARISON: 04/29/2016. FINDINGS: The tracheostomy tube and left arm PICC line remain in satisfactory position. There is air space di sease bilaterally in the mid and lower lung zones with left worse than right, unchanged. The heart is enlarged. There is calcification in the aorta consistent with atherosclerosis. There is a small right pleural effusion and moderate left pleural effusion, larger than seen previou sly. There is no pneumothorax. IMPRESSION: 1. Larger left pleural effusion. 2. No other change from 04/29/2016. RPTAT: QQ .Tyler Paula MD, MD Date Time Electronically viewed and signed by .Tyler Paula MD, MD on 05/02/2016 11:39 .R/
--- NOTE | 2016-05-02 14:04 | CONS ---
Date/Time of Note Date/Time of Note DATE: 05/02/16 TIME: 14:00 Assessment/Plan Assessment/Plan Chief Complaint/Hosp Course IMPRESSION: 1. Wide complex tachycardia, cardiac arrhythmia. Rule out nonsustained ventricular tachycardia.-likely c/w abberant AF-no recurrence 2. Abnormal electrocardiogram, assess for acute coronary syndrome. 3. Congestive heart failure by chest x-ray, diastolic by most recent echo acute on chronic. 4. Hypertension with episodes of borderline hypotension requiring IV fluid bolus now improved. 5. Respiratory failure, chronic, status post tracheostomy. 6. Dysphagia, status post G-tube. 7. Psychiatric disorder. 8. Urinary tract infection. 9. Hypokalemia-improved 10. Anemia. 11. Leukopenia. 12.Nstemi-no current chest pain/decreasing enzymes 14. Bradycardia-improved with holding BB Recc: -Tele -Continue to hold BB given bradycardia -Continue lovenox/asa medical therapy for nstemi with cvurrently decreasing cardiac enzymes -Trend cardiac enzymes which are downtrending -resume daily alsix diuresis/? need for thoracentesis given Large L pleural effusion -[facility] discussed with patient but patient does not have clear understanding and would like to wait Problems: Consultation Date/Type/Reason Admit Date/Time Apr 11, 2016 at 22:13 Initial Consult Date 04/21/16 Type of Consultation: Cardiology Reason for Consultation Nstemi Referring Provider: ANNETTA AGUILAR MD Exam/Review of Systems Vital Signs Vitals Vital Signs Date Time Temp Pulse Resp B/P Pulse Ox O2 Delivery O2 Flow Rate FiO2 05/02/16 13:11 69 20 8.0 35 05/02/16 11:19 98.0 138/93 97 05/01/16 13:21 Aerosol Mask Intake and Output 05/01/16 05/01/16 05/02/16 15:00 23:00 07:00 Intake Total 740 ml 200 ml Output Total 2100 ml 700 ml Balance -1360 ml -500 ml Exam Review of Systems: CONSTITUTIONAL: No fevers, chills. PULMONARY: mild sob CARDIOVASCULAR: No chest pain/palpitations GASTROINTESTINAL: No nausea/vomiting. GENITOURINARY: No hematuria/dysuria. MUSCULOSKELETAL: No myagias/arthalgias. PSYCHIATRIC: The patient denies depression. NEUROLOGIC: No weakness Constitutional: alert Psych: no complaints Head: normocephalic ENMT: mucosa pink and moist Neck: jvd, supple Respiratory: diminished breath sounds Cardiovascular: regular rate and rhythm Gastrointestinal: non-tender, soft Musculoskeletal: muscle weakness (generalized) Extremities: edema (none) Neurological: other (No focal deficits) Results Result Diagram: 05/02/16 0530 05/02/16 0530 Results 24 hrs Laboratory Tests Test 05/02/16 05:30 05/02/16 11:14 Anion Gap 12 Basophils # 0.0 Basophils % 0.5 Blood Urea Nitrogen 14 Calcium Level 7.9 L Carbon Dioxide Level 38 H Chloride Level 93 L Creatinine 0.43 L Eosinophils # 0.0 Eosinophils % 1.4 Glucose Level 80 Hematocrit 32.3 L Hemoglobin 9.7 L Lymphocytes # 0.6 L Lymphocytes % 28.6 Mean Corpuscular Hemoglobin 27.2 L Mean Corpuscular Hemoglobin Concent 30.0 L Mean Corpuscular Volume 90.7 Mean Platelet Volume 9.9 Monocytes # 0.2 L Monocytes % 9.5 Neutrophils # 1.3 L Neutrophils % 59.5 Nucleated Red Blood Cells # 0.0 Nucleated Red Blood Cells % 0.0 Platelet Count 104 #L Potassium Level 3.7 Red Blood Count 3.56 L Red Cell Distribution Width 16.8 H Sodium Level 139 White Blood Count 2.2 #L Lab Scanned Report REFERENCE LAB Medications Medications Current Medications Ondansetron HCl (Zofran Inj) 4 mg Q6H PRN IV NAUSEA AND/OR VOMITING Last administered on 04/24/16 21:00; Admin Dose 4 MG; Start 04/11/16 at 22:30 Acetaminophen (Tylenol Tab) 650 mg Q6H PRN PO PAIN LEVEL 1-3 OR FEVER; Start at 22:30 Morphine Sulfate (morphine) 2 mg Q4H PRN IV PAIN LEVEL 7-10 Last administered on 04/28/16 01:30; Admin Dose 2 MG; Start 04/11/16 at 22:30 Ascorbic Acid (Vitamin C) 500 mg DAILY GTB Last administered on 05/02/16 10:09 ; Admin Dose 500 MG; Start 04/12/16 at 09:00 Bisacodyl (Dulcolax) 10 mg DAILY PRN PO CONSTIPATION; Start 04/11/16 at 22:30 Chlorhexidine Gluconate (Peridex) 15 ml BID MM Last administered on 05/02/16 10:08; Admin Dose 15 ML; Start 04/12/16 at 09:00 Ferrous Sulfate (Feosol Liquid Cup) 300 mg BID GTB Last administered on 10:08; Admin Dose 300 MG; Start 04/12/16 at 09:00 Acetaminophen/ Hydrocodone Bitart ([place] (5/325)) 1 tab Q4 PRN GTB PAIN LEVEL 6 -10; Start 04/11/16 at 22:30 Lactulose (Enulose) 20 gm DAILY GTB Last administered on 05/02/16 10:08; Admin Dose 20 GM; Start 04/12/16 at 09:00 Quetiapine Fumarate (Seroquel) 25 mg BID@ GTB Last administered on 10:15; Admin Dose 25 MG; Start 04/12/16 at 09:00 Quetiapine Fumarate (Seroquel) 200 mg HS GTB Last administered on 05/01/16 21: 34; Admin Dose 200 MG; Start 04/12/16 at 21:00 Senna (Senokot) 1 tab QHS GTB Last administered on 05/01/16 21:35; Admin Dose 1 TAB; Start 04/12/16 at 21:00 Sodium Biphosphate/ Sodium Phosphate (Fleet Enema Pediatric) 66.6 ml DAILY PRN [place] CONSTIPATION; Start 04/11/16 at 22:30 Thiamine HCl (Vitamin B1) 100 mg DAILY GTB Last administered on 05/02/16 10:09 ; Admin Dose 100 MG; Start 04/12/16 at 09:00 Calcium Carbonate (Tums) 500 mg DAILY GTB Last administered on 05/02/16 10:09 ; Admin Dose 500 MG; Start 04/12/16 at 09:00 Multivitamins/ Minerals (Theragran-M) 1 tab DAILY PO Last administered on 10:09; Admin Dose 1 TAB; Start 04/12/16 at 09:00 Hydralazine HCl (Apresoline) 10 mg Q6H PRN IV SBP>170 Last administered on 08:38; Admin Dose 10 MG; Start 04/12/16 at 12:30 Famotidine (Pepcid) 20 mg Q12 GTB Last administered on 05/02/16 10:09; Admin Dose 20 MG; Start 04/19/16 at 21:00 Lorazepam (Ativan) 1 mg Q4 PRN IV AGITATION/ANXIETY Last administered on 06:35; Admin Dose 1 MG; Start 04/24/16 at 21:00 Clonidine 0.1 mg 0.1 mg Q6H PRN PO ELEVATED BLOOD PRESSURE; Start 04/24/16 at 23 :30 Dextrose/Sodium Chloride 1,000 ml @ 60 mls/hr [id number] IV Last administered on 05/02/16 06:35; Admin Dose 60 MLS/HR; Start 04/26/16 at 11:30 Diltiazem HCl (Cardizem-D5W 125 Mg/125 ml Drip) 125 ml @ 5 mls/hr TITRATE IV Last administered on 04/27/16 22:28; Admin Dose 5 MLS/HR; Start 04/27/16 at 22:00 Metoprolol Tartrate (Lopressor) 5 mg Q4H PRN IV PRN HR>110 Hold SBP<100; Start 04/28/16 at 13:30 Enoxaparin Sodium (Lovenox) 55 mg Q12 SC Last administered on 05/02/16 10:12; Admin Dose 55 MG; Start 04/29/16 at 21:00 Furosemide (Lasix) 40 mg DAILY IV Last administered on 05/01/16 09:33; Admin Dose 40 MG; Start 04/30/16 at 09:00; Status Future Hold Metoprolol Tartrate (Lopressor) 25 mg BID PO Last administered on 04/29/16 21: 29; Admin Dose 25 MG; Start 04/29/16 at 21:00; Status Future Hold Lorazepam (Ativan) 1 mg Q6 GTB Last administered on 05/02/16 12:59; Admin Dose 1 MG; Start 05/02/16 at 00:00 LILI BRADEN May 02, 2016 14:04
[2016-05-02] MEDS: ASPIRIN 81 MG TAB PO SCH (14:30)
--- NOTE | 2016-05-02 15:03 | PN ---
Date/Time of Note Date/Time of Note DATE: 05/02/16 TIME: 15:01 Assessment/Plan VTE Prophylaxis VTE Prophylaxis Intervention: LMWH Lines/Catheters IV [facility]ter Type (from [facility]): PICC Line Central line still needed: Yes Urinary Cath still in place: Yes Reason Cath still needed: urinary retention Assessment/Plan Assessment/Plan - NSTEMI, continue aspirin and Lovenox. - per Dr. Espitia is in cardiology consultation. - Atrial fibrillation with rapid ventricular response. - per Dr. Espitia in cardiology consultation. Continue metoprolol. Continue telemetry monitoring. - Bilateral pleural effusions, status post right sided thoracentesis, pending thoracentesis of the left side. - Acute hypoxic respiratory failure. on Vent now - per Dr. Anderson in pulmonology consultation. - Continue ventilatory support and bronchodilators. - Possible healthcare-acquired left lower lung pneumonia versus aspiration. - Continue antibiotics per ID. - Dr. Rojas is following an infection disease consultation. - E. coli ESBL urinary tract infection. Continue Ertapenem. - Sepsis with Ecoli ESBL bacteremia 2 UTI. - Normocytic anemia. - Dr Gaona is following in hematology consultation. - monitor H/H, bleeding - Dysphagia, with G-tube. - aspiration precautions - History of chronic respiratory failure with tracheostomy. - Benign prostatic hypertrophy. - Schizoaffective disorder. Continue Seroquel and Ativan as needed for agitation. - Lovenox for deep venous thrombosis prophylaxis- - Pepcid for peptic ulcer disease prophylaxis. Further recommendations based on clinical course. Plan of care discussed with Dr. Colunga. Subjective 24 Hr Interval Summary Constitutional: requiring O2 Respiratory: shortness of breath Cardiovascular: no complaints Gastrointestinal: no complaints Exam/Review of Systems Vital Signs Vitals Vital Signs Date Time Temp Pulse Resp B/P Pulse Ox O2 Delivery O2 Flow Rate FiO2 05/02/16 13:11 69 20 8.0 35 05/02/16 11:19 98.0 138/93 97 05/01/16 13:21 Aerosol Mask Intake and Output 05/01/16 05/01/16 05/02/16 15:00 23:00 07:00 Intake Total 740 ml 200 ml Output Total 2100 ml 700 ml Balance -1360 ml -500 ml Exam Constitutional: alert Psych: no complaints Head: atraumatic Eyes: EOMI ENMT: nl external ears & nose Respiratory: clear to auscultation, other (trach intact) Cardiovascular: nl pulses Gastrointestinal: non-tender, other (gt intact), soft Musculoskeletal: muscle weakness (BUE. BLE contractures- Cont PT) Skin: other Lymph: nontender Results Result Diagram: 05/02/16 0530 05/02/16 0530 Results 24 hrs Laboratory Tests Test 05/02/16 05:30 05/02/16 11:14 Anion Gap 12 Basophils # 0.0 Basophils % 0.5 Blood Urea Nitrogen 14 Calcium Level 7.9 L Carbon Dioxide Level 38 H Chloride Level 93 L Creatinine 0.43 L Eosinophils # 0.0 Eosinophils % 1.4 Glucose Level 80 Hematocrit 32.3 L Hemoglobin 9.7 L Lymphocytes # 0.6 L Lymphocytes % 28.6 Mean Corpuscular Hemoglobin 27.2 L Mean Corpuscular Hemoglobin Concent 30.0 L Mean Corpuscular Volume 90.7 Mean Platelet Volume 9.9 Monocytes # 0.2 L Monocytes % 9.5 Neutrophils # 1.3 L Neutrophils % 59.5 Nucleated Red Blood Cells # 0.0 Nucleated Red Blood Cells % 0.0 Platelet Count 104 #L Potassium Level 3.7 Red Blood Count 3.56 L Red Cell Distribution Width 16.8 H Sodium Level 139 White Blood Count 2.2 #L Lab Scanned Report REFERENCE LAB Medications Medications Current Medications Ondansetron HCl (Zofran Inj) 4 mg Q6H PRN IV NAUSEA AND/OR VOMITING Last administered on 04/24/16 21:00; Admin Dose 4 MG; Start 04/11/16 at 22:30 Acetaminophen (Tylenol Tab) 650 mg Q6H PRN PO PAIN LEVEL 1-3 OR FEVER; Start at 22:30 Morphine Sulfate (morphine) 2 mg Q4H PRN IV PAIN LEVEL 7-10 Last administered on 04/28/16 01:30; Admin Dose 2 MG; Start 04/11/16 at 22:30 Ascorbic Acid (Vitamin C) 500 mg DAILY GTB Last administered on 05/02/16 10:09 ; Admin Dose 500 MG; Start 04/12/16 at 09:00 Bisacodyl (Dulcolax) 10 mg DAILY PRN PO CONSTIPATION; Start 04/11/16 at 22:30 Chlorhexidine Gluconate (Peridex) 15 ml BID MM Last administered on 05/02/16 10:08; Admin Dose 15 ML; Start 04/12/16 at 09:00 Ferrous Sulfate (Feosol Liquid Cup) 300 mg BID GTB Last administered on 10:08; Admin Dose 300 MG; Start 04/12/16 at 09:00 Acetaminophen/ Hydrocodone Bitart ([place] (5/325)) 1 tab Q4 PRN GTB PAIN LEVEL 6 -10; Start 04/11/16 at 22:30 Lactulose (Enulose) 20 gm DAILY GTB Last administered on 05/02/16 10:08; Admin Dose 20 GM; Start 04/12/16 at 09:00 Quetiapine Fumarate (Seroquel) 25 mg BID@ GTB Last administered on 10:15; Admin Dose 25 MG; Start 04/12/16 at 09:00 Quetiapine Fumarate (Seroquel) 200 mg HS GTB Last administered on 05/01/16 21: 34; Admin Dose 200 MG; Start 04/12/16 at 21:00 Senna (Senokot) 1 tab QHS GTB Last administered on 05/01/16 21:35; Admin Dose 1 TAB; Start 04/12/16 at 21:00 Sodium Biphosphate/ Sodium Phosphate (Fleet Enema Pediatric) 66.6 ml DAILY PRN [place] CONSTIPATION; Start 04/11/16 at 22:30 Thiamine HCl (Vitamin B1) 100 mg DAILY GTB Last administered on 05/02/16 10:09 ; Admin Dose 100 MG; Start 04/12/16 at 09:00 Calcium Carbonate (Tums) 500 mg DAILY GTB Last administered on 05/02/16 10:09 ; Admin Dose 500 MG; Start 04/12/16 at 09:00 Multivitamins/ Minerals (Theragran-M) 1 tab DAILY PO Last administered on 10:09; Admin Dose 1 TAB; Start 04/12/16 at 09:00 Hydralazine HCl (Apresoline) 10 mg Q6H PRN IV SBP>170 Last administered on 08:38; Admin Dose 10 MG; Start 04/12/16 at 12:30 Famotidine (Pepcid) 20 mg Q12 GTB Last administered on 05/02/16 10:09; Admin Dose 20 MG; Start 04/19/16 at 21:00 Lorazepam (Ativan) 1 mg Q4 PRN IV AGITATION/ANXIETY Last administered on 06:35; Admin Dose 1 MG; Start 04/24/16 at 21:00 Clonidine 0.1 mg 0.1 mg Q6H PRN PO ELEVATED BLOOD PRESSURE; Start 04/24/16 at 23 :30 Dextrose/Sodium Chloride 1,000 ml @ 60 mls/hr [id number] IV Last administered on 05/02/16 06:35; Admin Dose 60 MLS/HR; Start 04/26/16 at 11:30 Diltiazem HCl (Cardizem-D5W 125 Mg/125 ml Drip) 125 ml @ 5 mls/hr TITRATE IV Last administered on 04/27/16 22:28; Admin Dose 5 MLS/HR; Start 04/27/16 at 22:00 Metoprolol Tartrate (Lopressor) 5 mg Q4H PRN IV PRN HR>110 Hold SBP<100; Start 04/28/16 at 13:30 Enoxaparin Sodium (Lovenox) 55 mg Q12 SC Last administered on 05/02/16 10:12; Admin Dose 55 MG; Start 04/29/16 at 21:00 Furosemide (Lasix) 40 mg DAILY IV Last administered on 05/01/16 09:33; Admin Dose 40 MG; Start 04/30/16 at 09:00; Status Future Hold Metoprolol Tartrate (Lopressor) 25 mg BID PO Last administered on 04/29/16 21: 29; Admin Dose 25 MG; Start 04/29/16 at 21:00; Status Future Hold Lorazepam (Ativan) 1 mg Q6 GTB Last administered on 05/02/16 12:59; Admin Dose 1 MG; Start 05/02/16 at 00:00 Aspirin (Aspirin) 81 mg DAILY PO ; Start 05/02/16 at 14:30 Furosemide (Lasix) 20 mg DAILY IV ; Start 05/03/16 at 09:00 BRENT KENDRICK May 02, 2016 15:02
[2016-05-02 16:06] LABS: ADD SCAN DIFF NO
[2016-05-02 16:20] LABS: BASOPHILS % 0.4 % (0.0-2.0); EOSINOPHILS % 0.8 % (0.0-7.0); HEMATOCRIT 30.5 % (42.0-52.0); HEMOGLOBIN 9.4 g/dl (14.0-18.0); LYMPHOCYTES # 0.7 10^3/ul (0.8-2.9); LYMPHOCYTES % 27.6 % (15.0-51.0); MEAN CORPUSCULAR HEMOGLOBIN 28.1 pg (29.0-33.0); MEAN CORPUSCULAR HGB CONC 30.8 g/dl (32.0-37.0); MEAN PLATELET VOLUME 10.4 fl (7.4-10.4); MONOCYTE # 0.2 10^3/ul (0.3-0.9); MONOCYTES % 7.6 % (0.0-11.0); NEUTROPHIL # 1.6 10^3/ul (1.6-7.5); NEUTROPHILS % 63.6 % (39.0-77.0); PLATELET COUNT 102 10^3/UL (140-415); RED BLOOD COUNT 3.35 10^6/ul (4.70-6.10); RED CELL DISTRIBUTION WIDTH 16.6 % (11.5-14.5); WHITE BLOOD COUNT 2.5 10^3/ul (4.8-10.8)
[2016-05-02 16:21] LABS: INR 1.29; PROTIME 16.2 Sec (12.2-14.2); PT RATIO 1.3
[2016-05-02 16:41] LABS: AADO2 Arterial 160.7 mmHg (7.0-24.0); Allen Test ACCEPTAB; Arterial Base Excess 14.3 mmol/L (-3.0-3); Arterial COHb 0.3 % (0.0-3.0); Arterial Fraction of Oxyhgb 94.5 % (93.0-99.0); Arterial HCO3 44.8 mmol/L (22.0-26.0); Arterial MetHb 0.2 % (0.0-1.5); Arterial Total Hemglobin 10.9 g/dl (12.0-18.0); MODE TRACH COLLAR
--- NOTE | 2016-05-02 16:44 | RADRPT ---
PROCEDURE: XR Chest. CLINICAL INDICATION: Pleural effusion. TECHNIQUE: Chest x-ray, single view. COMPARISON: 05/02/2016. FINDINGS: The cardiac silhouette is magnified and unchanged in size. Markedly low lung volumes are present. The diaphragm is obscured suggesting the presence of pleural effusion, atelectasis and / or airspace disease. slight decrease in left pleural effusion is observed. A tracheostomy tube is in place. Chronic deformity of the left shoulder is present. IMPRESSION: Markedly low lung volumes with obscuration of the diaphragm suggesting pleural effusion, atelectasis and / or airspace disease. RPTAT: QQ .Kelly Deshpande MD, MD Date Time Electronically viewed and signed by .Kelly Deshpande MD, on 05/02/2016 16:44 .T/
[2016-05-02] MEDS: SENNA TAB GTB SCH (20:45)
[2016-05-02] MEDS: QUETIAPINE 100 MG TAB GTB SCH (20:45)
[2016-05-02] MEDS: hydrALAzine 20 MG INJ IV PRN (21:48)
[2016-05-02] MEDS: morphine 2 MG INJ IV PRN (21:49)
[2016-05-03] VITALS (42 sets, daily range): BP systolic 109–165; BP diastolic 71–115; PULSE 56–104; RESP 12–26
[2016-05-03] MEDS: ALBUTEROL HFA 8 GM INHALER INH SCH ×4 (01:09→20:08)
[2016-05-03] MEDS: IPRATROPIUM (HFA) 12.9 GM INHALER INH SCH ×4 (01:09→20:08)
[2016-05-03] MEDS: LORAZEPAM 2 MG INJ IV PRN ×3 (02:17→13:55)
[2016-05-03] MEDS: DEXTROSE 5%-0.45% NACL 1,000 ML IV SCH (02:17)
[2016-05-03 04:42] LABS: ADD SCAN DIFF NO
[2016-05-03 04:52] LABS: BASOPHILS % 0.2 % (0.0-2.0); EOSINOPHILS % 0.2 % (0.0-7.0); HEMATOCRIT 29.9 % (42.0-52.0); LYMPHOCYTES # 0.6 10^3/ul (0.8-2.9); LYMPHOCYTES % 12.9 % (15.0-51.0); MEAN CORPUSCULAR HGB CONC 30.1 g/dl (32.0-37.0); MEAN CORPUSCULAR VOLUME 89.8 fl (82.0-101.0); MEAN PLATELET VOLUME 10.9 fl (7.4-10.4); MONOCYTE # 0.3 10^3/ul (0.3-0.9); MONOCYTES % 5.2 % (0.0-11.0); NEUTROPHIL # 3.9 10^3/ul (1.6-7.5); NEUTROPHILS % 81.3 % (39.0-77.0); PLATELET COUNT 118 10^3/UL (140-415); RED BLOOD COUNT 3.33 10^6/ul (4.70-6.10); RED CELL DISTRIBUTION WIDTH 17.2 % (11.5-14.5); WHITE BLOOD COUNT 4.8 10^3/ul (4.8-10.8)
[2016-05-03 05:09] LABS: POTASSIUM 3.9 mmol/L (3.5-5.1)
[2016-05-03 05:11] LABS: CREATININE 0.43 mg/dl (0.61-1.24)
[2016-05-03 05:12] LABS: CALCIUM 8.2 mg/dl (8.4-10.2)
[2016-05-03] MEDS: LORAZEPAM 1 MG TAB GTB SCH ×3 (05:27→18:00)
[2016-05-03 05:39] LABS: CK-MB 3.49 ng/ml (0.0-2.4); TROPONIN-I 1.58 ng/ml (0.00-0.12)
[2016-05-03] MEDS: ASPIRIN 81 MG TAB PO SCH (09:00)
[2016-05-03] MEDS: ASCORBIC ACID 500 MG TAB GTB SCH (09:00)
[2016-05-03] MEDS: CALCIUM CARBONATE 500 MG CHEW TAB GTB SCH (09:00)
[2016-05-03] MEDS: FAMOTIDINE 20 MG TAB GTB SCH ×2 (09:00→21:00)
[2016-05-03] MEDS: CHLORHEXIDINE GLUCONATE 15 ML UD CUP MM SCH ×2 (09:00→21:58)
[2016-05-03] MEDS: QUETIAPINE 25 MG TAB GTB SCH ×2 (09:00→17:00)
[2016-05-03] MEDS: LACTULOSE 30ML CUP GTB SCH (09:00)
[2016-05-03] MEDS: THIAMINE 100 MG TAB GTB SCH (09:00)
[2016-05-03] MEDS: FUROSEMIDE 20 MG INJ IV SCH (09:00)
[2016-05-03] MEDS: MULTIVITAMINS/MINERALS TAB PO SCH (09:00)
[2016-05-03] MEDS: FERROUS SULFATE 60 MG/ML 5ML CUP GTB SCH ×2 (09:00→21:00)
--- NOTE | 2016-05-03 09:47 | CONS ---
Date/Time of Note Date/Time of Note DATE: 05/03/16 TIME: 09:44 Assessment/Plan Assessment/Plan Chief Complaint/Hosp Course 65 up male with acute hypoxic respiratory failure being admitted for sepsis secondary to ESBL bacteremia. Pt had a worsening normocytic anemia that was likely secondary to his underlying sepsis and antibiotic use. Anemia panel does also reveal evidence of anemia of chronic inflammation as well as iron deficiency. No evidence of Vit b12 nor folate deficiency. Low retic count does indicate the bone marrow is not appropriately responding likely from the overlying sepsis. Normal LDH and haptoglobin makes hemolysis unlikely. Pt is now off antibiotic and Hg has remained stable. Pt now has a bleeding trach site. PTT found to be elevated to 85. SQ Vitamin K 10mg given -recheck PTT at this time -continue to monitor Hg -continue treatment of underlying CHF -s/p 5 days of V iron. now on po iron Approximately 40 min were spent at patient's bedside and in coordination of his care Problems: Consultation Date/Type/Reason Admit Date/Time Apr 11, 2016 at 22:13 Initial Consult Date 04/21/16 Type of Consultation: Hematology Reason for Consultation anemia Referring Provider: ANNETTA AGUILAR MD 24 HR Interval Summary Free Text/Dictation patient was transferred to ICU after SCHEDULING ASSISTANT called. Pt pulled trach. now bleeding from trach site which has been changed multiple times Exam/Review of Systems Vital Signs Vitals Vital Signs Date Time Temp Pulse Resp B/P Pulse Ox O2 Delivery O2 Flow Rate FiO2 05/03/16 08:00 85 05/03/16 05:30 19 109/96 99 Mechanical Ventilator 05/03/16 05:05 40 05/03/16 04:00 97.7 05/02/16 16:20 10.0 Intake and Output 05/02/16 05/02/16 05/03/16 15:00 23:00 07:00 Intake Total 0 ml Output Total 500 ml Balance -500 ml Exam Constitutional: alert, oriented Psych: no complaints Head: normocephalic Eyes: nl conjunctiva ENMT: nl external ears & nose Neck: other (trach in place) Respiratory: clear to auscultation, normal air movement Cardiovascular: regular rate and rhythm Gastrointestinal: soft Musculoskeletal: nl extremities to inspection, nl gait and stance Extremities: normal pulses Results Result Diagram: 05/03/16 0345 05/03/16 0345 Results 24 hrs Laboratory Tests Test 05/02/16 11:14 05/02/16 15:21 05/02/16 15:40 05/03/16 03:45 Lab Scanned Report REFERENCE LAB Arterial Blood HCO3 44.8 *H Arterial Blood Base Excess 14.3 H Arterial Blood Oxygen Saturation 95.0 Vishal Test ACCEPTAB Arterial Blood Gas Puncture Site Right Radial Arterial Blood Carboxyhemoglobin 0.3 Arterial Blood Date Drawn 05/02/2016 3:33:00 PM Arterial Blood Methemoglobin 0.2 Arterial Blood pCO2 (Temp correct) 99.7 *H Arterial Blood pH (Temp corrected) 7.270 *L Arterial Blood pO2 (Temp corrected) 83.6 Blood Gas A-a O2 Differential 160.7 H Blood Gas Critical Value Read Back UNI,BLUEPRINTING MACHINE OPERATOR Blood Gas Modality TRACH [facility] Blood Gas Notified Time 05/02/2016 3:45:00 PM Blood Gas Notified Whom DHOLT Blood Gas Specimen Source Blood arterial Blood Gas Temperature 37.0 FiO2 50.0 Oxyhemoglobin Percent 94.5 Total Hemoglobin 10.9 L Activated Partial Thromboplast Time 85.0 *H Basophils # 0.0 0.0 Basophils % 0.4 0.2 Eosinophils # 0.0 0.0 Eosinophils % 0.8 0.2 Hematocrit 30.5 L 29.9 L Hemoglobin 9.4 L 9.0 L INR International Normalized Ratio 1.29 Lymphocytes # 0.7 L 0.6 L Lymphocytes % 27.6 12.9 L Mean Corpuscular Hemoglobin 28.1 L 27.0 L Mean Corpuscular Hemoglobin Concent 30.8 L 30.1 L Mean Corpuscular Volume 91.0 89.8 Mean Platelet Volume 10.4 10.9 H Monocytes # 0.2 L 0.3 Monocytes % 7.6 5.2 Neutrophils # 1.6 3.9 Neutrophils % 63.6 81.3 H Nucleated Red Blood Cells # 0.0 0.0 Nucleated Red Blood Cells % 0.0 0.0 Platelet Count 102 L 118 L Prothrombin Time 16.2 H Prothrombin Time Ratio 1.3 Red Blood Count 3.35 L 3.33 L Red Cell Distribution Width 16.6 H 17.2 H White Blood Count 2.5 L 4.8 # Anion Gap 9 Blood Urea Nitrogen 12 Calcium Level 8.2 L Carbon Dioxide Level 41 *H Chloride Level 93 L Creatine Kinase 27 Creatine Kinase Index 12.9 Creatinine 0.43 L Creatinine Kinase MB (Mass) 3.49 H Glucose Level 59 #L Potassium Level 3.9 Sodium Level 139 Troponin I 1.580 *H Test 05/03/16 05:20 Bedside Glucose 80 Medications Medications Current Medications Ondansetron HCl (Zofran Inj) 4 mg Q6H PRN IV NAUSEA AND/OR VOMITING Last administered on 04/24/16 21:00; Admin Dose 4 MG; Start 04/11/16 at 22:30 Acetaminophen (Tylenol Tab) 650 mg Q6H PRN PO PAIN LEVEL 1-3 OR FEVER; Start at 22:30 Morphine Sulfate (morphine) 2 mg Q4H PRN IV PAIN LEVEL 7-10 Last administered on 05/02/16 21:49; Admin Dose 2 MG; Start 04/11/16 at 22:30 Ascorbic Acid (Vitamin C) 500 mg DAILY GTB Last administered on 05/02/16 10:09 ; Admin Dose 500 MG; Start 04/12/16 at 09:00 Bisacodyl (Dulcolax) 10 mg DAILY PRN PO CONSTIPATION; Start 04/11/16 at 22:30 Chlorhexidine Gluconate (Peridex) 15 ml BID MM Last administered on 05/02/16 10:08; Admin Dose 15 ML; Start 04/12/16 at 09:00 Ferrous Sulfate (Feosol Liquid Cup) 300 mg BID GTB Last administered on 10:08; Admin Dose 300 MG; Start 04/12/16 at 09:00 Acetaminophen/ Hydrocodone Bitart ([place] (5/325)) 1 tab Q4 PRN GTB PAIN LEVEL 6 -10; Start 04/11/16 at 22:30 Lactulose (Enulose) 20 gm DAILY GTB Last administered on 05/02/16 10:08; Admin Dose 20 GM; Start 04/12/16 at 09:00 Quetiapine Fumarate (Seroquel) 25 mg BID@ GTB Last administered on 10:15; Admin Dose 25 MG; Start 04/12/16 at 09:00 Quetiapine Fumarate (Seroquel) 200 mg HS GTB Last administered on 05/01/16 21: 34; Admin Dose 200 MG; Start 04/12/16 at 21:00 Senna (Senokot) 1 tab QHS GTB Last administered on 05/01/16 21:35; Admin Dose 1 TAB; Start 04/12/16 at 21:00 Sodium Biphosphate/ Sodium Phosphate (Fleet Enema Pediatric) 66.6 ml DAILY PRN ME CONSTIPATION; Start 04/11/16 at 22:30 Thiamine HCl (Vitamin B1) 100 mg DAILY GTB Last administered on 05/02/16 10:09 ; Admin Dose 100 MG; Start 04/12/16 at 09:00 Calcium Carbonate (Tums) 500 mg DAILY GTB Last administered on 05/02/16 10:09 ; Admin Dose 500 MG; Start 04/12/16 at 09:00 Multivitamins/ Minerals (Theragran-M) 1 tab DAILY PO Last administered on 10:09; Admin Dose 1 TAB; Start 04/12/16 at 09:00 Hydralazine HCl (Apresoline) 10 mg Q6H PRN IV SBP>170 Last administered on 05/02 21:48; Admin Dose 10 MG; Start 04/12/16 at 12:30 Famotidine (Pepcid) 20 mg Q12 GTB Last administered on 05/02/16 10:09; Admin Dose 20 MG; Start 04/19/16 at 21:00 Lorazepam (Ativan) 1 mg Q4 PRN IV AGITATION/ANXIETY Last administered on 06:31; Admin Dose 1 MG; Start 04/24/16 at 21:00 Clonidine 0.1 mg 0.1 mg Q6H PRN PO ELEVATED BLOOD PRESSURE; Start 04/24/16 at 23 :30 Dextrose/Sodium Chloride 1,000 ml @ 60 mls/hr [id number] IV Last administered on 05/03/16 02:17; Admin Dose 60 MLS/HR; Start 04/26/16 at 11:30 Diltiazem HCl (Cardizem-D5W 125 Mg/125 ml Drip) 125 ml @ 5 mls/hr TITRATE IV Last administered on 04/27/16 22:28; Admin Dose 5 MLS/HR; Start 04/27/16 at 22:00 Metoprolol Tartrate (Lopressor) 5 mg Q4H PRN IV PRN HR>110 Hold SBP<100; Start 04/28/16 at 13:30 Furosemide (Lasix) 40 mg DAILY IV Last administered on 05/01/16 09:33; Admin Dose 40 MG; Start 04/30/16 at 09:00; Status Future Hold Metoprolol Tartrate (Lopressor) 25 mg BID PO Last administered on 04/29/16 21: 29; Admin Dose 25 MG; Start 04/29/16 at 21:00; Status Future Hold Lorazepam (Ativan) 1 mg Q6 GTB Last administered on 05/02/16 12:59; Admin Dose 1 MG; Start 05/02/16 at 00:00 Aspirin (Aspirin) 81 mg DAILY PO ; Start 05/02/16 at 14:30 Furosemide 20 mg 20 mg DAILY IV ; Start 05/03/16 at 09:00 Cefepime HCl (Maxipime 1gm/50 ml (Pmx)) 50 ml @ 100 mls/hr Q12 IVPB ; Start at 10:00 JESI MONTEMAYOR M.D. May 03, 2016 09:47
--- NOTE | 2016-05-03 09:48 | CONS ---
Date/Time of Note Date/Time of Note DATE: 05/03/16 TIME: 09:44 Assessment/Plan Assessment/Plan Additional Assessment/Plan Ventilator settings; AC of 12, tidal volume 450, PEEP of 5, 40% FiO2. Chest x-ray was reviewed from yesterday which were diffuse bilateral lower lobe infiltrative changes. Next Assessment recommendations; 1. Patient initially admitted with left lower lobe pneumonia with marked interval improvement however the patient decompensated yesterday with acute CO2 narcosis. Requiring invasive mechanical ventilation. Next 2. History of alcoholic encephalopathy. Next 3. History of tracheostomy and G-tube placement. 4. History of paraplegia. Next 5. Elevated pro time i likely on account of underlying cirrhosis of liver. 6. Tracheal bleed. Patient already received FFP.. Add vancomycin and cefepime. Give subcutaneous vitamin K 10 mg 1. We will obtain an ENT consult. Continue current supportive measures. Overall prognosis remains very poor. Consultation Date/Type/Reason Admit Date/Time Apr 11, 2016 at 22:13 Initial Consult Date 04/12/16 Type of Consultation: Pulmonary/critical care Referring Provider: ANNETTA AGUILAR MD 24 HR Interval Summary Free Text/Dictation Patient condition is tenuous at best. Patient was offered to ICU after he became lethargic ABG was done on the floor that showed severe acute respiratory acidosis. Patient was hooked to mechanical ventilator via tracheostomy. Patient is awake. Currently in no distress. Exam/Review of Systems Vital Signs Vitals Vital Signs Date Time Temp Pulse Resp B/P Pulse Ox O2 Delivery O2 Flow Rate FiO2 05/03/16 08:00 85 05/03/16 05:30 19 109/96 99 Mechanical Ventilator 05/03/16 05:05 40 05/03/16 04:00 97.7 05/02/16 16:20 10.0 Intake and Output 05/02/16 05/02/16 05/03/16 14:59 22:59 06:59 Intake Total 0 ml Output Total 500 ml Balance -500 ml Exam H EENT exam is; supple neck, patient is having mikal tracheal bleed. Mostly edentulous. No neck masses. Supple neck. Tracheostomy in place. Chest examination: Diminished breath on lung bases bilaterally. With crackles. Upper lobes are clear. S1-S2 audible, no murmurs. Regular rhythm. Abdomen examination of Evelio soft, scaphoid. G-tube in place. Bowel sounds audible. Extremity exam is; no peripheral edema. FOURDRINIER MACHINE TENDER examination patient is stable paraplegia. Results Result Diagram: 05/03/16 0345 05/03/16 0345 Results 24 hrs Laboratory Tests Test 05/02/16 11:14 05/02/16 15:21 05/02/16 15:40 05/03/16 03:45 Lab Scanned Report REFERENCE LAB Arterial Blood HCO3 44.8 *H Arterial Blood Base Excess 14.3 H Arterial Blood Oxygen Saturation 95.0 Vishal Test ACCEPTAB Arterial Blood Gas Puncture Site Right Radial Arterial Blood Carboxyhemoglobin 0.3 Arterial Blood Date Drawn 05/02/2016 3:33:00 PM Arterial Blood Methemoglobin 0.2 Arterial Blood pCO2 (Temp correct) 99.7 *H Arterial Blood pH (Temp corrected) 7.270 *L Arterial Blood pO2 (Temp corrected) 83.6 Blood Gas A-a O2 Differential 160.7 H Blood Gas Critical Value Read Back UNI,MUD ANALYSIS WELL LOGGING OPERATOR Blood Gas Modality TRACH COLLAR Blood Gas Notified Time 05/02/2016 3:45:00 PM Blood Gas Notified Whom DHOLT Blood Gas Specimen Source Blood arterial Blood Gas Temperature 37.0 FiO2 50.0 Oxyhemoglobin Percent 94.5 Total Hemoglobin 10.9 L Activated Partial Thromboplast Time 85.0 *H Basophils # 0.0 0.0 Basophils % 0.4 0.2 Eosinophils # 0.0 0.0 Eosinophils % 0.8 0.2 Hematocrit 30.5 L 29.9 L Hemoglobin 9.4 L 9.0 L INR International Normalized Ratio 1.29 Lymphocytes # 0.7 L 0.6 L Lymphocytes % 27.6 12.9 L Mean Corpuscular Hemoglobin 28.1 L 27.0 L Mean Corpuscular Hemoglobin Concent 30.8 L 30.1 L Mean Corpuscular Volume 91.0 89.8 Mean Platelet Volume 10.4 10.9 H Monocytes # 0.2 L 0.3 Monocytes % 7.6 5.2 Neutrophils # 1.6 3.9 Neutrophils % 63.6 81.3 H Nucleated Red Blood Cells # 0.0 0.0 Nucleated Red Blood Cells % 0.0 0.0 Platelet Count 102 L 118 L Prothrombin Time 16.2 H Prothrombin Time Ratio 1.3 Red Blood Count 3.35 L 3.33 L Red Cell Distribution Width 16.6 H 17.2 H White Blood Count 2.5 L 4.8 # Anion Gap 9 Blood Urea Nitrogen 12 Calcium Level 8.2 L Carbon Dioxide Level 41 *H Chloride Level 93 L Creatine Kinase 27 Creatine Kinase Index 12.9 Creatinine 0.43 L Creatinine Kinase MB (Mass) 3.49 H Glucose Level 59 #L Potassium Level 3.9 Sodium Level 139 Troponin I 1.580 *H Test 05/03/16 05:20 Bedside Glucose 80 Medications Medications Current Medications Ondansetron HCl (Zofran Inj) 4 mg Q6H PRN IV NAUSEA AND/OR VOMITING Last administered on 04/24/16 21:00; Admin Dose 4 MG; Start 04/11/16 at 22:30 Acetaminophen (Tylenol Tab) 650 mg Q6H PRN PO PAIN LEVEL 1-3 OR FEVER; Start at 22:30 Morphine Sulfate (morphine) 2 mg Q4H PRN IV PAIN LEVEL 7-10 Last administered on 05/02/16 21:49; Admin Dose 2 MG; Start 04/11/16 at 22:30 Ascorbic Acid (Vitamin C) 500 mg DAILY GTB Last administered on 05/02/16 10:09 ; Admin Dose 500 MG; Start 04/12/16 at 09:00 Bisacodyl (Dulcolax) 10 mg DAILY PRN PO CONSTIPATION; Start 04/11/16 at 22:30 Chlorhexidine Gluconate (Peridex) 15 ml BID MM Last administered on 05/02/16 10:08; Admin Dose 15 ML; Start 04/12/16 at 09:00 Ferrous Sulfate (Feosol Liquid Cup) 300 mg BID GTB Last administered on 10:08; Admin Dose 300 MG; Start 04/12/16 at 09:00 Acetaminophen/ Hydrocodone Bitart ([place] (5/325)) 1 tab Q4 PRN GTB PAIN LEVEL 6 -10; Start 04/11/16 at 22:30 Lactulose (Enulose) 20 gm DAILY GTB Last administered on 05/02/16 10:08; Admin Dose 20 GM; Start 04/12/16 at 09:00 Quetiapine Fumarate (Seroquel) 25 mg BID@ GTB Last administered on 10:15; Admin Dose 25 MG; Start 04/12/16 at 09:00 Quetiapine Fumarate (Seroquel) 200 mg HS GTB Last administered on 05/01/16 21: 34; Admin Dose 200 MG; Start 04/12/16 at 21:00 Senna (Senokot) 1 tab QHS GTB Last administered on 05/01/16 21:35; Admin Dose 1 TAB; Start 04/12/16 at 21:00 Sodium Biphosphate/ Sodium Phosphate (Fleet Enema Pediatric) 66.6 ml DAILY PRN [place] CONSTIPATION; Start 04/11/16 at 22:30 Thiamine HCl (Vitamin B1) 100 mg DAILY GTB Last administered on 05/02/16 10:09 ; Admin Dose 100 MG; Start 04/12/16 at 09:00 Calcium Carbonate (Tums) 500 mg DAILY GTB Last administered on 05/02/16 10:09 ; Admin Dose 500 MG; Start 04/12/16 at 09:00 Multivitamins/ Minerals (Theragran-M) 1 tab DAILY PO Last administered on 10:09; Admin Dose 1 TAB; Start 04/12/16 at 09:00 Hydralazine HCl (Apresoline) 10 mg Q6H PRN IV SBP>170 Last administered on 05/02 21:48; Admin Dose 10 MG; Start 04/12/16 at 12:30 Famotidine (Pepcid) 20 mg Q12 GTB Last administered on 05/02/16 10:09; Admin Dose 20 MG; Start 04/19/16 at 21:00 Lorazepam (Ativan) 1 mg Q4 PRN IV AGITATION/ANXIETY Last administered on 06:31; Admin Dose 1 MG; Start 04/24/16 at 21:00 Clonidine 0.1 mg 0.1 mg Q6H PRN PO ELEVATED BLOOD PRESSURE; Start 04/24/16 at 23 :30 Dextrose/Sodium Chloride 1,000 ml @ 60 mls/hr [id number] IV Last administered on 05/03/16 02:17; Admin Dose 60 MLS/HR; Start 04/26/16 at 11:30 Diltiazem HCl (Cardizem-D5W 125 Mg/125 ml Drip) 125 ml @ 5 mls/hr TITRATE IV Last administered on 04/27/16 22:28; Admin Dose 5 MLS/HR; Start 04/27/16 at 22:00 Metoprolol Tartrate (Lopressor) 5 mg Q4H PRN IV PRN HR>110 Hold SBP<100; Start 04/28/16 at 13:30 Furosemide (Lasix) 40 mg DAILY IV Last administered on 05/01/16 09:33; Admin Dose 40 MG; Start 04/30/16 at 09:00; Status Future Hold Metoprolol Tartrate (Lopressor) 25 mg BID PO Last administered on 04/29/16 21: 29; Admin Dose 25 MG; Start 04/29/16 at 21:00; Status Future Hold Lorazepam (Ativan) 1 mg Q6 GTB Last administered on 05/02/16 12:59; Admin Dose 1 MG; Start 05/02/16 at 00:00 Aspirin (Aspirin) 81 mg DAILY PO ; Start 05/02/16 at 14:30 Furosemide 20 mg 20 mg DAILY IV ; Start 05/03/16 at 09:00 Cefepime HCl (Maxipime 1gm/50 ml (Pmx)) 50 ml @ 100 mls/hr Q12 IVPB ; Start at 10:00; Status KATHERYN OLIVERA May 03, 2016 09:47
[2016-05-03] MEDS ORDERED: PHYTONADIONE 10 MG/ML INJ SC ONE (10:00)
[2016-05-03] MEDS ORDERED: VANCOMYCIN IV PER PHARMACY XX SCH (10:00)
[2016-05-03] MEDS: CEFEPIME 1GM/50 ML (PMX) 50 ML IVPB SCH ×2 (10:31→21:58)
[2016-05-03] MEDS ORDERED: VANCOMYCIN 1.25 GM in SOD CHLORIDE 0.9% 250 ML IVPB SCH (11:00)
--- NOTE | 2016-05-03 11:24 | PN ---
DATE: 05/03/2016 SUBJECTIVE: Patient is lying comfortably in bed. He has bleeding from his tracheostomy. He is in no distress. No fevers. VITAL SIGNS: Temperature 97.9, pulse 84, respirations 13, blood pressure 119/80, saturation 99% on vent. LABORATORY: WBC 4.8, H and H 9 and 29.9, platelets 118, neutrophils 81.3, BUN 12, creatinine 0.43. INDWELLINGS: Trach, PEG, PICC line placed on 04/21/2016. ANTIMICROBIALS: The patient is on: 1. Cefepime. 2. Vancomycin restarted today. PHYSICAL EXAMINATION: GENERAL: Fragile, elderly man who is lying comfortably in bed. HEENT: Head atraumatic, normocephalic. Sclerae anicteric. Buccal mucosa dry. NECK: Supple. Tracheostomy present. CHEST: Rise symmetrical. Breath sounds with scattered rhonchi. HEART: S1, S2. ABDOMEN: Soft. Bowel tones present. EXTREMITIES: Without cyanosis. ASSESSMENT: 1. Tracheal bleeding, pending ENT evaluation. 2. Healthcare-associated pneumonia. 3. Status post Escherichia coli extended-spectrum beta-lactamase urinary tract infection with bacte remia. 4. Chronic respiratory failure. 5. Benign prostatic hypertrophy. 6. History of schizoaffective disorder. PLAN: The patient remains hemodynamically stable on appropriate antimicrobials for healthcare-assoc iated pneumonia. He is being followed by pulmonary. He is being followed by cardiology and hematol ogy, pending ENT evaluation. Monitor H and H and transfuse p.r.n. Dictated By: MARK LONG CLEANER for ORLANDO SAMAYOA/DAVID Conf#: [id number] DID#: [id number]
--- NOTE | 2016-05-03 14:15 | CONS ---
Date/Time of Note Date/Time of Note DATE: 05/03/16 TIME: 14:10 Assessment/Plan Assessment/Plan Chief Complaint/Hosp Course IMPRESSION: 1. Wide complex tachycardia, cardiac arrhythmia. Rule out nonsustained ventricular tachycardia.-likely c/w abberant AF-no recurrence 2. Abnormal electrocardiogram, assess for acute coronary syndrome. 3. Congestive heart failure by chest x-ray, diastolic by most recent echo acute on chronic. 4. Hypertension with episodes of borderline hypotension requiring IV fluid bolus now improved. 5. Respiratory failure, chronic, status post tracheostomy with desat now transferred to ICU 6. Dysphagia, status post G-tube. 7. Psychiatric disorder. 8. Urinary tract infection. 9. Hypokalemia-improved 10. Anemia. 11. Leukopenia. 12.Nstemi-no current chest pain/decreasing enzymes 14. Bradycardia-improved with holding BB Recc: -Tele -Continue to hold BB given prior bradycardia -Continue lovenox/asa medical therapy for nstemi with currently decreasing cardiac enzymes -Trend cardiac enzymes which are downtrending -Continue daily alsix diuresis? need for thoracentesis given Large L pleural effusion -[facility] discussed with patient but patient does not have clear understanding and would like to wait -Follow O2 sats closely on vent now Problems: Consultation Date/Type/Reason Admit Date/Time Apr 11, 2016 at 22:13 Initial Consult Date 04/21/16 Type of Consultation: Cardiology Reason for Consultation NSVT/NSTEMI Referring Provider: ANNETTA AGUILAR MD Exam/Review of Systems Vital Signs Vitals Vital Signs Date Time Temp Pulse Resp B/P Pulse Ox O2 Delivery O2 Flow Rate FiO2 05/03/16 13:00 76 12 134/90 100 Mechanical Ventilator 05/03/16 12:00 98.0 05/03/16 12:00 40 05/02/16 16:20 10.0 Intake and Output 05/02/16 05/02/16 05/03/16 15:00 23:00 07:00 Intake Total 0 ml Output Total 500 ml Balance -500 ml Exam Review of Systems: CONSTITUTIONAL: No fevers, chills. PULMONARY: mild sob CARDIOVASCULAR: No chest pain/palpitations GASTROINTESTINAL: No nausea/vomiting. GENITOURINARY: No hematuria/dysuria. MUSCULOSKELETAL: No myagias/arthalgias. PSYCHIATRIC: The patient denies depression. NEUROLOGIC: No weakness Constitutional: alert, oriented Psych: no complaints Head: normocephalic ENMT: mucosa pink and moist Respiratory: diminished breath sounds Cardiovascular: regular rate and rhythm Gastrointestinal: non-tender, soft Musculoskeletal: muscle tone Extremities: edema (none) Neurological: other (No focal deficits) Results Result Diagram: 05/03/16 0345 05/03/16 0345 Results 24 hrs Laboratory Tests Test 05/02/16 15:21 05/02/16 15:40 05/03/16 03:45 05/03/16 05:20 Arterial Blood HCO3 44.8 *H Arterial Blood Base Excess 14.3 H Arterial Blood Oxygen Saturation 95.0 Vishal Test ACCEPTAB Arterial Blood Gas Puncture Site Right Radial Arterial Blood Carboxyhemoglobin 0.3 Arterial Blood Date Drawn 05/02/2016 3:33:00 PM Arterial Blood Methemoglobin 0.2 Arterial Blood pCO2 (Temp correct) 99.7 *H Arterial Blood pH (Temp corrected) 7.270 *L Arterial Blood pO2 (Temp corrected) 83.6 Blood Gas A-a O2 Differential 160.7 H Blood Gas Critical Value Read Back UNI,FACULTY NEUROPSYCHOLOGIST Blood Gas Modality [facility] Blood Gas Notified Time 05/02/2016 3:45:00 PM Blood Gas Notified Whom DHOLT Blood Gas Specimen Source Blood arterial Blood Gas Temperature 37.0 FiO2 50.0 Oxyhemoglobin Percent 94.5 Total Hemoglobin 10.9 L Activated Partial Thromboplast Time 85.0 *H Basophils # 0.0 0.0 Basophils % 0.4 0.2 Eosinophils # 0.0 0.0 Eosinophils % 0.8 0.2 Hematocrit 30.5 L 29.9 L Hemoglobin 9.4 L 9.0 L INR International Normalized Ratio 1.29 Lymphocytes # 0.7 L 0.6 L Lymphocytes % 27.6 12.9 L Mean Corpuscular Hemoglobin 28.1 L 27.0 L Mean Corpuscular Hemoglobin Concent 30.8 L 30.1 L Mean Corpuscular Volume 91.0 89.8 Mean Platelet Volume 10.4 10.9 H Monocytes # 0.2 L 0.3 Monocytes % 7.6 5.2 Neutrophils # 1.6 3.9 Neutrophils % 63.6 81.3 H Nucleated Red Blood Cells # 0.0 0.0 Nucleated Red Blood Cells % 0.0 0.0 Platelet Count 102 L 118 L Prothrombin Time 16.2 H Prothrombin Time Ratio 1.3 Red Blood Count 3.35 L 3.33 L Red Cell Distribution Width 16.6 H 17.2 H White Blood Count 2.5 L 4.8 # Anion Gap 9 Blood Urea Nitrogen 12 Calcium Level 8.2 L Carbon Dioxide Level 41 *H Chloride Level 93 L Creatine Kinase 27 Creatine Kinase Index 12.9 Creatinine 0.43 L Creatinine Kinase MB (Mass) 3.49 H Glucose Level 59 #L Potassium Level 3.9 Sodium Level 139 Troponin I 1.580 *H Bedside Glucose 80 Medications Medications Current Medications Ondansetron HCl (Zofran Inj) 4 mg Q6H PRN IV NAUSEA AND/OR VOMITING Last administered on 04/24/16 21:00; Admin Dose 4 MG; Start 04/11/16 at 22:30 Acetaminophen (Tylenol Tab) 650 mg Q6H PRN PO PAIN LEVEL 1-3 OR FEVER; Start at 22:30 Morphine Sulfate (morphine) 2 mg Q4H PRN IV PAIN LEVEL 7-10 Last administered on 05/02/16 21:49; Admin Dose 2 MG; Start 04/11/16 at 22:30 Ascorbic Acid (Vitamin C) 500 mg DAILY GTB Last administered on 05/02/16 10:09 ; Admin Dose 500 MG; Start 04/12/16 at 09:00 Bisacodyl (Dulcolax) 10 mg DAILY PRN PO CONSTIPATION; Start 04/11/16 at 22:30 Chlorhexidine Gluconate (Peridex) 15 ml BID MM Last administered on 05/03/16 09:00; Admin Dose 15 ML; Start 04/12/16 at 09:00 Ferrous Sulfate (Feosol Liquid Cup) 300 mg BID GTB Last administered on 10:08; Admin Dose 300 MG; Start 04/12/16 at 09:00 Acetaminophen/ Hydrocodone Bitart ([place] (5/325)) 1 tab Q4 PRN GTB PAIN LEVEL 6 -10; Start 04/11/16 at 22:30 Lactulose (Enulose) 20 gm DAILY GTB Last administered on 05/02/16 10:08; Admin Dose 20 GM; Start 04/12/16 at 09:00 Quetiapine Fumarate (Seroquel) 25 mg BID@09,17 GTB Last administered on 10:15; Admin Dose 25 MG; Start 04/12/16 at 09:00 Quetiapine Fumarate (Seroquel) 200 mg HS GTB Last administered on 05/01/16 21: 34; Admin Dose 200 MG; Start 04/12/16 at 21:00 Senna (Senokot) 1 tab QHS GTB Last administered on 05/01/16 21:35; Admin Dose 1 TAB; Start 04/12/16 at 21:00 Sodium Biphosphate/ Sodium Phosphate (Fleet Enema Pediatric) 66.6 ml DAILY PRN [place] CONSTIPATION; Start 04/11/16 at 22:30 Thiamine HCl (Vitamin B1) 100 mg DAILY GTB Last administered on 05/02/16 10:09 ; Admin Dose 100 MG; Start 04/12/16 at 09:00 Calcium Carbonate (Tums) 500 mg DAILY GTB Last administered on 05/02/16 10:09 ; Admin Dose 500 MG; Start 04/12/16 at 09:00 Multivitamins/ Minerals (Theragran-M) 1 tab DAILY PO Last administered on 10:09; Admin Dose 1 TAB; Start 04/12/16 at 09:00 Hydralazine HCl (Apresoline) 10 mg Q6H PRN IV SBP>170 Last administered on 05/02 21:48; Admin Dose 10 MG; Start 04/12/16 at 12:30 Famotidine (Pepcid) 20 mg Q12 GTB Last administered on 05/02/16 10:09; Admin Dose 20 MG; Start 04/19/16 at 21:00 Lorazepam (Ativan) 1 mg Q4 PRN IV AGITATION/ANXIETY Last administered on 13:55; Admin Dose 1 MG; Start 04/24/16 at 21:00 Clonidine 0.1 mg 0.1 mg Q6H PRN PO ELEVATED BLOOD PRESSURE; Start 04/24/16 at 23 :30 Dextrose/Sodium Chloride 1,000 ml @ 60 mls/hr [id number] IV Last administered on 05/03/16 02:17; Admin Dose 60 MLS/HR; Start 04/26/16 at 11:30 Diltiazem HCl (Cardizem-D5W 125 Mg/125 ml Drip) 125 ml @ 5 mls/hr TITRATE IV Last administered on 04/27/16 22:28; Admin Dose 5 MLS/HR; Start 04/27/16 at 22:00 Metoprolol Tartrate (Lopressor) 5 mg Q4H PRN IV PRN HR>110 Hold SBP<100; Start 04/28/16 at 13:30 Furosemide (Lasix) 40 mg DAILY IV Last administered on 05/01/16 09:33; Admin Dose 40 MG; Start 04/30/16 at 09:00; Status Future Hold Metoprolol Tartrate (Lopressor) 25 mg BID PO Last administered on 04/29/16 21: 29; Admin Dose 25 MG; Start 04/29/16 at 21:00; Status Future Hold Lorazepam (Ativan) 1 mg Q6 GTB Last administered on 05/02/16 12:59; Admin Dose 1 MG; Start 05/02/16 at 00:00 Aspirin (Aspirin) 81 mg DAILY PO ; Start 05/02/16 at 14:30 Furosemide 20 mg 20 mg DAILY IV Last administered on 05/03/16 09:00; Admin Dose 20 MG; Start 05/03/16 at 09:00 Cefepime HCl 50 ml @ 100 mls/hr Q12 IVPB Last administered on 05/03/16 10:31 ; Admin Dose 100 MLS/HR; Start 05/03/16 at 10:00 Vancomycin HCl 1.25 gm/Sodium Chloride 250 ml @ 83.333 mls/ hr 11 IVPB Last administered on 05/03/16 11:25; Admin Dose 83.333 MLS/HR; Start 05/03/16 at 11: 00; Stop 05/03/16 at 22:00 Vancomycin HCl/ Sodium Chloride (Vancocin/NS) 150 ml @ 75 mls/hr Q12H IVPB ; Start 05/03/16 at 23:00 LILI BRADEN 13, 2017 14:14
[2016-05-03] MEDS ORDERED: PROPOFOL 100 ML ONE (16:38)
[2016-05-03] MEDS: PROPOFOL 100 ML IV SCH (16:57)
--- NOTE | 2016-05-03 18:08 | PN ---
Date/Time of Note Date/Time of Note DATE: 05/03/16 TIME: 18:03 Assessment/Plan VTE Prophylaxis VTE Prophylaxis Intervention: SCD's Lines/Catheters IV Catheter Type (from [facility]): PICC Line Central line still needed: Yes Urinary Cath still in place: Yes Reason Cath still needed: urinary retention Assessment/Plan Chief Complaint/Hosp Course ASSESSMENT AND PLAN: -Bleeding from tracheostomy site, pending ENT consult. -Pancytopenia. Dr Gaona is following in hematology consultation. -Coagulopathy, status post vitamin K, Lovenox is held - NSTEMI, continue aspirin and Lovenox. Dr. Espitia is following patient in cardiology consultation. - Atrial fibrillation with rapid ventricular response. Continue metoprolol. Continue telemetry monitoring. - Bilateral pleural effusions, status post right sided thoracentesis, pending thoracentesis of the left side. - Acute hypoxic respiratory failure. Dr. Anderson is following in pulmonology consultation. Continue ventilatory support and bronchodilators. - Possible healthcare-acquired left lower lung pneumonia versus aspiration. Continue antibiotics per ID. Dr. Rojas is following an infection disease consultation. - E. coli ESBL urinary tract infection, status post treatment. - Sepsis with Ecoli ESBL bacteremia 2 UTI, resolved. - Dysphagia, with G-tube. Status post G-tube removal by patient. Patient passed swallow eval and was started on pured diet. Patient tolerates pured diet well. - History of chronic respiratory failure with tracheostomy. - Benign prostatic hypertrophy. - Schizoaffective disorder. Continue Seroquel and Ativan as needed for agitation. Continue Lovenox for deep venous thrombosis prophylaxis and Pepcid for peptic ulcer disease prophylaxis. Further recommendations based on clinical course. Plan of care discussed with Dr. Colunga. Problems: Subjective 24 Hr Interval Summary Free Text/Dictation Patient was transferred to ICU due to bleeding from tracheostomy site, continues to be on ventilator support. Exam/Review of Systems Vital Signs Vitals Vital Signs Date Time Temp Pulse Resp B/P Pulse Ox O2 Delivery O2 Flow Rate FiO2 05/03/16 17:38 66 12 98 40 05/03/16 16:00 97.8 136/113 Mechanical Ventilator 05/02/16 16:20 10.0 Intake and Output 05/02/16 05/02/16 05/03/16 15:00 23:00 07:00 Intake Total 0 ml Output Total 500 ml Balance -500 ml Exam GENERAL: A well-developed, cachectic gentleman, currently is awake, alert, follows immediate commands, otherwise confused. HEENT: Head is atraumatic, normocephalic. LYDIA. NECK: Supple, with tracheostomy at the base of the neck, with bloody secretions. LUNGS: Diminished at the bases. Patient has scattered severe rhonchi bilaterally. CARDIOVASCULAR: Normal S1, S2. No murmurs, gallops, clicks, rubs noted. ABDOMEN: Flat, soft, nondistended, nontender. Bowel sounds present. Patient has a G-tube with intact stoma. EXTREMITIES: Contractured. There is no edema, clubbing, cyanosis. Pulses equal bilaterally, 2+. SKIN: There is no rash, petechiae noted. NEUROLOGIC: Patient is awake, alert. Results Result Diagram: 05/03/16 0345 05/03/16 0345 Results 24 hrs Laboratory Tests Test 05/03/16 03:45 05/03/16 05:20 05/03/16 14:10 Anion Gap 9 Basophils # 0.0 Basophils % 0.2 Blood Urea Nitrogen 12 Calcium Level 8.2 L Carbon Dioxide Level 41 *H Chloride Level 93 L Creatine Kinase 27 Creatine Kinase Index 12.9 Creatinine 0.43 L Creatinine Kinase MB (Mass) 3.49 H Eosinophils # 0.0 Eosinophils % 0.2 Glucose Level 59 #L Hematocrit 29.9 L Hemoglobin 9.0 L Lymphocytes # 0.6 L Lymphocytes % 12.9 L Mean Corpuscular Hemoglobin 27.0 L Mean Corpuscular Hemoglobin Concent 30.1 L Mean Corpuscular Volume 89.8 Mean Platelet Volume 10.9 H Monocytes # 0.3 Monocytes % 5.2 Neutrophils # 3.9 Neutrophils % 81.3 H Nucleated Red Blood Cells # 0.0 Nucleated Red Blood Cells % 0.0 Platelet Count 118 L Potassium Level 3.9 Red Blood Count 3.33 L Red Cell Distribution Width 17.2 H Sodium Level 139 Troponin I 1.580 *H White Blood Count 4.8 # Bedside Glucose 80 Activated Partial Thromboplast Time 58.1 H Medications Medications Current Medications Ondansetron HCl (Zofran Inj) 4 mg Q6H PRN IV NAUSEA AND/OR VOMITING Last administered on 04/24/16 21:00; Admin Dose 4 MG; Start 04/11/16 at 22:30 Acetaminophen (Tylenol Tab) 650 mg Q6H PRN PO PAIN LEVEL 1-3 OR FEVER; Start at 22:30 Morphine Sulfate (morphine) 2 mg Q4H PRN IV PAIN LEVEL 7-10 Last administered on 05/02/16 21:49; Admin Dose 2 MG; Start 04/11/16 at 22:30 Ascorbic Acid (Vitamin C) 500 mg DAILY GTB Last administered on 05/02/16 10:09 ; Admin Dose 500 MG; Start 04/12/16 at 09:00 Bisacodyl (Dulcolax) 10 mg DAILY PRN PO CONSTIPATION; Start 04/11/16 at 22:30 Chlorhexidine Gluconate (Peridex) 15 ml BID MM Last administered on 05/03/16 09:00; Admin Dose 15 ML; Start 04/12/16 at 09:00 Ferrous Sulfate (Feosol Liquid Cup) 300 mg BID GTB Last administered on 10:08; Admin Dose 300 MG; Start 04/12/16 at 09:00 Acetaminophen/ Hydrocodone Bitart ([place] (5/325)) 1 tab Q4 PRN GTB PAIN LEVEL 6 -10; Start 04/11/16 at 22:30 Lactulose (Enulose) 20 gm DAILY GTB Last administered on 05/02/16 10:08; Admin Dose 20 GM; Start 04/12/16 at 09:00 Quetiapine Fumarate (Seroquel) 25 mg BID@ GTB Last administered on 10:15; Admin Dose 25 MG; Start 04/12/16 at 09:00 Quetiapine Fumarate (Seroquel) 200 mg HS GTB Last administered on 05/01/16 21: 34; Admin Dose 200 MG; Start 04/12/16 at 21:00 Senna (Senokot) 1 tab QHS GTB Last administered on 05/01/16 21:35; Admin Dose 1 TAB; Start 04/12/16 at 21:00 Sodium Biphosphate/ Sodium Phosphate (Fleet Enema Pediatric) 66.6 ml DAILY PRN [place] CONSTIPATION; Start 04/11/16 at 22:30 Thiamine HCl (Vitamin B1) 100 mg DAILY GTB Last administered on 05/02/16 10:09 ; Admin Dose 100 MG; Start 04/12/16 at 09:00 Calcium Carbonate (Tums) 500 mg DAILY GTB Last administered on 05/02/16 10:09 ; Admin Dose 500 MG; Start 04/12/16 at 09:00 Multivitamins/ Minerals (Theragran-M) 1 tab DAILY PO Last administered on 10:09; Admin Dose 1 TAB; Start 04/12/16 at 09:00 Hydralazine HCl (Apresoline) 10 mg Q6H PRN IV SBP>170 Last administered on 05/02 21:48; Admin Dose 10 MG; Start 04/12/16 at 12:30 Famotidine (Pepcid) 20 mg Q12 GTB Last administered on 05/02/16 10:09; Admin Dose 20 MG; Start 04/19/16 at 21:00 Lorazepam (Ativan) 1 mg Q4 PRN IV AGITATION/ANXIETY Last administered on 13:55; Admin Dose 1 MG; Start 04/24/16 at 21:00 Clonidine 0.1 mg 0.1 mg Q6H PRN PO ELEVATED BLOOD PRESSURE; Start 04/24/16 at 23 :30 Dextrose/Sodium Chloride 1,000 ml @ 60 mls/hr [id number] IV Last administered on 05/03/16 02:17; Admin Dose 60 MLS/HR; Start 04/26/16 at 11:30 Diltiazem HCl (Cardizem-D5W 125 Mg/125 ml Drip) 125 ml @ 5 mls/hr TITRATE IV Last administered on 04/27/16 22:28; Admin Dose 5 MLS/HR; Start 04/27/16 at 22:00 Metoprolol Tartrate (Lopressor) 5 mg Q4H PRN IV PRN HR>110 Hold SBP<100; Start 04/28/16 at 13:30 Furosemide (Lasix) 40 mg DAILY IV Last administered on 05/01/16 09:33; Admin Dose 40 MG; Start 04/30/16 at 09:00; Status Future Hold Metoprolol Tartrate (Lopressor) 25 mg BID PO Last administered on 04/29/16 21: 29; Admin Dose 25 MG; Start 04/29/16 at 21:00; Status Future Hold Lorazepam (Ativan) 1 mg Q6 GTB Last administered on 05/02/16 12:59; Admin Dose 1 MG; Start 05/02/16 at 00:00 Aspirin (Aspirin) 81 mg DAILY PO ; Start 05/02/16 at 14:30 Furosemide 20 mg 20 mg DAILY IV Last administered on 05/03/16 09:00; Admin Dose 20 MG; Start 05/03/16 at 09:00 Cefepime HCl 50 ml @ 100 mls/hr Q12 IVPB Last administered on 05/03/16 10:31 ; Admin Dose 100 MLS/HR; Start 05/03/16 at 10:00 Vancomycin HCl 750 mg/Sodium Chloride 150 ml @ 75 mls/hr Q12H IVPB ; Start at 23:00 Propofol (Diprivan) 100 ml @ 1.65 mls/hr Q12H IV Last administered on 16:57; Admin Dose 1.65 MLS/HR; Start 05/03/16 at 17:00 SHELBY BUNCH May 03, 2016 18:08
[2016-05-03] MEDS: QUETIAPINE 100 MG TAB GTB SCH (21:00)
[2016-05-03] MEDS: SENNA TAB GTB SCH (21:00)
[2016-05-03] MEDS: VANCOMYCIN 750 MG in SOD CHLORIDE 0.9% 150 ML IVPB SCH (23:50)
[2016-05-04] VITALS (67 sets, daily range): BP systolic 113–198; BP diastolic 68–122; PULSE 43–84; RESP 11–22
[2016-05-04] MEDS: IPRATROPIUM (HFA) 12.9 GM INHALER INH SCH ×4 (01:17→19:47)
[2016-05-04] MEDS: ALBUTEROL HFA 8 GM INHALER INH SCH ×4 (01:17→19:47)
[2016-05-04] MEDS: DEXTROSE 5%-0.45% NACL 1,000 ML IV SCH ×4 (02:50→20:02)
[2016-05-04] MEDS: morphine 2 MG INJ IV PRN (03:01)
[2016-05-04] MEDS: PROPOFOL 100 ML IV SCH (03:55)
[2016-05-04] MEDS: LORAZEPAM 1 MG TAB GTB SCH ×4 (05:41→18:00)
[2016-05-04 05:50] LABS: ADD SCAN DIFF NO
[2016-05-04 06:05] LABS: POTASSIUM 3.3 mmol/L (3.5-5.1)
[2016-05-04 06:08] LABS: CREATININE 0.51 mg/dl (0.61-1.24)
[2016-05-04 06:09] LABS: CALCIUM 8.2 mg/dl (8.4-10.2)
[2016-05-04 06:12] LABS: BASOPHILS % 0.4 % (0.0-2.0); EOSINOPHILS # 0.1 10^3/ul (0.0-0.5); EOSINOPHILS % 1.2 % (0.0-7.0); HEMATOCRIT 26.7 % (42.0-52.0); HEMOGLOBIN 8.5 g/dl (14.0-18.0); LYMPHOCYTES # 1.2 10^3/ul (0.8-2.9); LYMPHOCYTES % 22.5 % (15.0-51.0); MEAN CORPUSCULAR HEMOGLOBIN 28.2 pg (29.0-33.0); MEAN CORPUSCULAR HGB CONC 31.8 g/dl (32.0-37.0); MEAN CORPUSCULAR VOLUME 88.7 fl (82.0-101.0); MEAN PLATELET VOLUME 11.5 fl (7.4-10.4); MONOCYTE # 0.4 10^3/ul (0.3-0.9); MONOCYTES % 7.7 % (0.0-11.0); NEUTROPHIL # 3.5 10^3/ul (1.6-7.5); PLATELET COUNT 105 10^3/UL (140-415); RED BLOOD COUNT 3.01 10^6/ul (4.70-6.10); RED CELL DISTRIBUTION WIDTH 17.7 % (11.5-14.5); WHITE BLOOD COUNT 5.2 10^3/ul (4.8-10.8)
[2016-05-04] MEDS: hydrALAzine 20 MG INJ IV PRN ×2 (06:21→17:44)
--- NOTE | 2016-05-04 07:38 | CONS ---
Date/Time of Note Date/Time of Note DATE: 05/04/16 TIME: 07:34 Assessment/Plan Assessment/Plan Additional Assessment/Plan Ventilator settings; AC of 14, tidal volume 450, PEEP of 5, 40% FiO2. Next Assessment recommendations; 1. Patient admitted for left lower lobe pneumonia with interval improvement however now has recurrent bilateral pneumonia possibly aspiration causing respiratory failure. 2. Severe hypoventilation, not requiring ventilator support. 3. Prior history of tracheostomy. 4. History of paraplegia. 5. CHF. 6. Alcoholic encephalopathy. 7. Continued requirement for restraints. Continue current ventilator settings. Will obtain a chest x-ray. Continue current antibiotics. Patient is on Lasix daily. Pass an NG tube and start tube feeding. Patient likely would need to have a G-tube placed. Meanwhile I would recommend stopping propofol and switching the patient to Versed for sedation as well as starting Librium 10 mg 3 times daily. The chest x-ray is done I will review and make further recommendations. Prognosis is guarded. Consultation Date/Type/Reason Admit Date/Time Apr 11, 2016 at 22:13 Initial Consult Date 04/12/16 Type of Consultation: Pulmonary/critical care Referring Provider: ANNETTA AGUILAR MD 24 HR Interval Summary Free Text/Dictation Patient condition remains critical. Not requiring full ventilator support due to hypercapnic respiratory failure. Patient is currently sedated with propofol drip. Requiring soft restraints because of agitation which has been an ongoing issue since admission owing to long-term alcoholic encephalopathy. General exam; elderly male, on ventilator via tracheostomy currently sedated. No distress noted. Exam/Review of Systems Vital Signs Vitals Vital Signs Date Time Temp Pulse Resp B/P Pulse Ox O2 Delivery O2 Flow Rate FiO2 05/04/16 05:31 45 12 100 40 05/04/16 04:11 97.1 05/04/16 04:00 161/108 05/03/16 22:00 Mechanical Ventilator 05/02/16 16:20 10.0 Intake and Output 05/03/16 05/03/16 05/04/16 15:00 23:00 07:00 Intake Total 300.00 ml 724.95 ml 0 ml Output Total 1505 ml 310 ml Balance 300.00 ml -780.05 ml -310 ml Exam H EENT examination; supple neck, no JVD. No lymphadenopathy. Midline trachea. Tracheostomy in place. No further tracheal bleed noted. Patient has few remaining teeth. Pupils are midsize and reactive to light. Chest examination a micro diminished breath on lung bases bilaterally upper lobes are clear. S1-S2 audible, no murmurs. Regular rhythm. Abdomen examination of Evelio scaphoid, no organomegaly. Bowel sounds audible. Extremity exam; no peripheral edema. [employer] examination; patient is sedated. Results Result Diagram: 05/04/16 0500 05/04/16 0500 Results 24 hrs Laboratory Tests Test 05/03/16 14:10 05/03/16 21:48 05/04/16 05:00 05/04/16 06:00 Activated Partial Thromboplast Time 58.1 H 56.9 H Bedside Glucose 80 Anion Gap 8 Basophils # 0.0 Basophils % 0.4 Blood Urea Nitrogen 12 Calcium Level 8.2 L Carbon Dioxide Level 39 H Chloride Level 94 L Creatinine 0.51 L Eosinophils # 0.1 Eosinophils % 1.2 Glucose Level 70 Hematocrit 26.7 L Hemoglobin 8.5 L Lymphocytes # 1.2 Lymphocytes % 22.5 Mean Corpuscular Hemoglobin 28.2 L Mean Corpuscular Hemoglobin Concent 31.8 L Mean Corpuscular Volume 88.7 Mean Platelet Volume 11.5 H Monocytes # 0.4 Monocytes % 7.7 Neutrophils # 3.5 Neutrophils % 68.0 Nucleated Red Blood Cells # 0.0 Nucleated Red Blood Cells % 0.0 Platelet Count 105 L Potassium Level 3.3 L Red Blood Count 3.01 L Red Cell Distribution Width 17.7 H Sodium Level 138 White Blood Count 5.2 Medications Medications Current Medications Ondansetron HCl (Zofran Inj) 4 mg Q6H PRN IV NAUSEA AND/OR VOMITING Last administered on 04/24/16 21:00; Admin Dose 4 MG; Start 04/11/16 at 22:30 Acetaminophen (Tylenol Tab) 650 mg Q6H PRN PO PAIN LEVEL 1-3 OR FEVER; Start at 22:30 Morphine Sulfate (morphine) 2 mg Q4H PRN IV PAIN LEVEL 7-10 Last administered on 05/04/16 03:01; Admin Dose 2 MG; Start 04/11/16 at 22:30 Ascorbic Acid (Vitamin C) 500 mg DAILY GTB Last administered on 05/02/16 10:09 ; Admin Dose 500 MG; Start 04/12/16 at 09:00 Bisacodyl (Dulcolax) 10 mg DAILY PRN PO CONSTIPATION; Start 04/11/16 at 22:30 Chlorhexidine Gluconate (Peridex) 15 ml BID MM Last administered on 05/03/16 21:58; Admin Dose 15 ML; Start 04/12/16 at 09:00 Ferrous Sulfate (Feosol Liquid Cup) 300 mg BID GTB Last administered on 10:08; Admin Dose 300 MG; Start 04/12/16 at 09:00 Acetaminophen/ Hydrocodone Bitart ([place] (5/325)) 1 tab Q4 PRN GTB PAIN LEVEL 6 -10; Start 04/11/16 at 22:30 Lactulose (Enulose) 20 gm DAILY GTB Last administered on 05/02/16 10:08; Admin Dose 20 GM; Start 04/12/16 at 09:00 Quetiapine Fumarate (Seroquel) 25 mg BID@ GTB Last administered on 10:15; Admin Dose 25 MG; Start 04/12/16 at 09:00 Quetiapine Fumarate (Seroquel) 200 mg HS GTB Last administered on 05/01/16 21: 34; Admin Dose 200 MG; Start 04/12/16 at 21:00 Senna (Senokot) 1 tab QHS GTB Last administered on 05/01/16 21:35; Admin Dose 1 TAB; Start 04/12/16 at 21:00 Sodium Biphosphate/ Sodium Phosphate (Fleet Enema Pediatric) 66.6 ml DAILY PRN [place] CONSTIPATION; Start 04/11/16 at 22:30 Thiamine HCl (Vitamin B1) 100 mg DAILY GTB Last administered on 05/02/16 10:09 ; Admin Dose 100 MG; Start 04/12/16 at 09:00 Calcium Carbonate (Tums) 500 mg DAILY GTB Last administered on 05/02/16 10:09 ; Admin Dose 500 MG; Start 04/12/16 at 09:00 Multivitamins/ Minerals (Theragran-M) 1 tab DAILY PO Last administered on 10:09; Admin Dose 1 TAB; Start 04/12/16 at 09:00 Hydralazine HCl (Apresoline) 10 mg Q6H PRN IV SBP >160 Last administered on 06:21; Admin Dose 10 MG; Start 04/12/16 at 12:30 Famotidine (Pepcid) 20 mg Q12 GTB Last administered on 05/02/16 10:09; Admin Dose 20 MG; Start 04/19/16 at 21:00 Lorazepam (Ativan) 1 mg Q4 PRN IV AGITATION/ANXIETY Last administered on 13:55; Admin Dose 1 MG; Start 04/24/16 at 21:00 Clonidine 0.1 mg 0.1 mg Q6H PRN PO ELEVATED BLOOD PRESSURE; Start 04/24/16 at 23 :30 Dextrose/Sodium Chloride 1,000 ml @ 60 mls/hr [id number] IV Last administered on 05/04/16 02:50; Admin Dose 60 MLS/HR; Start 04/26/16 at 11:30 Diltiazem HCl (Cardizem-D5W 125 Mg/125 ml Drip) 125 ml @ 5 mls/hr TITRATE IV Last administered on 04/27/16 22:28; Admin Dose 5 MLS/HR; Start 04/27/16 at 22:00 Metoprolol Tartrate (Lopressor) 5 mg Q4H PRN IV PRN HR>110 Hold SBP<100; Start 04/28/16 at 13:30 Furosemide (Lasix) 40 mg DAILY IV Last administered on 05/01/16 09:33; Admin Dose 40 MG; Start 04/30/16 at 09:00; Status Future Hold Metoprolol Tartrate (Lopressor) 25 mg BID PO Last administered on 04/29/16 21: 29; Admin Dose 25 MG; Start 04/29/16 at 21:00; Status Future Hold Lorazepam (Ativan) 1 mg Q6 GTB Last administered on 05/02/16 12:59; Admin Dose 1 MG; Start 05/02/16 at 00:00 Aspirin (Aspirin) 81 mg DAILY PO ; Start 05/02/16 at 14:30 Furosemide 20 mg 20 mg DAILY IV Last administered on 05/03/16 09:00; Admin Dose 20 MG; Start 05/03/16 at 09:00 Cefepime HCl 50 ml @ 100 mls/hr Q12 IVPB Last administered on 05/03/16 21:58 ; Admin Dose 100 MLS/HR; Start 05/03/16 at 10:00 Vancomycin HCl/ Sodium Chloride (Vancocin/NS) 150 ml @ 75 mls/hr Q12H IVPB Last administered on 05/03/16 23:50; Admin Dose 75 MLS/HR; Start 05/03/16 at 23 :00 Chlordiazepoxide (Librium) 10 mg TID PO ; Start 05/04/16 at 09:00; Status KAHTERYN OLIVERA May 04, 2016 07:38
[2016-05-04] MEDS ORDERED: POTASSIUM CHLORIDE 250 ML IVPB ONE (08:00)
[2016-05-04 08:25] LABS: AADO2 Arterial 107.7 mmHg (7.0-24.0); Allen Test ACCEPTAB; Arterial Base Excess 11.6 mmol/L (-3.0-3); Arterial COHb 0.3 % (0.0-3.0); Arterial Fraction of Oxyhgb 97.2 % (93.0-99.0); Arterial HCO3 37.8 mmol/L (22.0-26.0); Arterial MetHb 0.3 % (0.0-1.5); Arterial Total Hemglobin 9.6 g/dl (12.0-18.0); MODE VENT - AC
[2016-05-04] MEDS: QUETIAPINE 25 MG TAB GTB SCH ×2 (09:00→17:22)
--- NOTE | 2016-05-04 10:01 | RADRPT ---
PROCEDURE: XR Chest. CLINICAL INDICATION: Shortness of breath. TECHNIQUE: Single frontal view. COMPARISON: 05/02/2016. FINDINGS: The tracheostomy tube is in satisfactory position. The left arm PICC line is kinked in the mid supe rior vena cava and should be repositioned. There is bilateral pulmonary air space disease consisten t with pulmonary edema, unchanged. The heart is enlarged. There are moderate bilateral pleural effusions. There is no pneumothorax. IMPRESSION: 1. The left arm PICC line should be repositioned. 2. No other change from 05/02/2016. RPTAT: QQ .Tyler Paula MD, MD Date Time Electronically viewed and signed by .Tyler Paula MD, MD on 05/04/2016 10:01 .R/
[2016-05-04] MEDS ORDERED: LIDOCAINE 1% (MDV) 20 ML INJ SC ONE (11:00)
--- NOTE | 2016-05-04 12:12 | PN ---
Date/Time of Note Date/Time of Note DATE: 05/04/16 TIME: 12:05 Assessment/Plan VTE Prophylaxis VTE Prophylaxis Intervention: SCD's Lines/Catheters IV [facility]from [facility] PICC Line Central line still needed: Yes Urinary Cath still in place: Yes Reason Cath still needed: urinary retention Assessment/Plan Chief Complaint/Hosp Course ASSESSMENT AND PLAN: -Bleeding from tracheostomy site, resolving, pending ENT consult. Dr. Brooks group called today, I spoke with Charu from the office, aware of the ENT consult pending. -Pancytopenia. Dr Gaona is following in hematology consultation. -Coagulopathy, status post vitamin K, Lovenox is held - NSTEMI, continue aspirin and Lovenox. Dr. Espitia is following patient in cardiology consultation. - Atrial fibrillation with rapid ventricular response. Continue metoprolol. Continue telemetry monitoring. - Bilateral pleural effusions, status post right sided thoracentesis, pending thoracentesis of the left side. - Acute hypoxic respiratory failure. Dr. Anderson is following in pulmonology consultation. Continue ventilatory support and bronchodilators. - Possible healthcare-acquired left lower lung pneumonia versus aspiration. Continue antibiotics per ID. Dr. Rojas is following an infection disease consultation. - E. coli ESBL urinary tract infection, status post treatment. - Sepsis with Ecoli ESBL bacteremia 2 UTI, resolved. - Dysphagia, with G-tube. Status post G-tube removal by patient. Patient passed swallow eval and was started on pured diet. Patient tolerates pured diet well. - History of chronic respiratory failure with tracheostomy. - Benign prostatic hypertrophy. - Schizoaffective disorder. Continue Seroquel and Ativan as needed for agitation. Continue Lovenox for deep venous thrombosis prophylaxis and Pepcid for peptic ulcer disease prophylaxis. Further recommendations based on clinical course. Plan of care discussed with Dr. Colunga. Problems: Subjective 24 Hr Interval Summary Free Text/Dictation Patient continues on ventilatory support, tracheal bleeding resolving per nursing staff, patient is sedated. No fever nausea vomiting per RN. Exam/Review of Systems Vital Signs Vitals Vital Signs Date Time Temp Pulse Resp B/P Pulse Ox O2 Delivery O2 Flow Rate FiO2 05/04/16 09:21 55 13 98 40 05/04/16 06:45 136/81 05/04/16 04:30 Mechanical Ventilator 05/04/16 04:11 97.1 05/02/16 16:20 10.0 Intake and Output 05/03/16 05/03/16 05/04/16 15:00 23:00 07:00 Intake Total 300.00 ml 724.95 ml 0 ml Output Total 1505 ml 370 ml Balance 300.00 ml -780.05 ml -370 ml Exam GENERAL: A well-developed, cachectic gentleman, currently is awake, alert, follows immediate commands, otherwise confused. HEENT: Head is atraumatic, normocephalic. LYDIA. NECK: Supple, with tracheostomy at the base of the neck. LUNGS: Diminished at the bases. Patient has scattered severe rhonchi bilaterally. CARDIOVASCULAR: Normal S1, S2. No murmurs, gallops, clicks, rubs noted. ABDOMEN: Flat, soft, nondistended, nontender. Bowel sounds present. Patient has a G-tube with intact stoma. EXTREMITIES: Contractured. There is no edema, clubbing, cyanosis. Pulses equal bilaterally, 2+. SKIN: There is no rash, petechiae noted. NEUROLOGIC: Patient is awake, alert. Results Result Diagram: 05/04/16 0500 05/04/16 0500 Results 24 hrs Laboratory Tests Test 05/03/16 14:10 05/03/16 21:48 05/04/16 05:00 05/04/16 06:00 Activated Partial Thromboplast Time 58.1 H 56.9 H Bedside Glucose 80 Anion Gap 8 Basophils # 0.0 Basophils % 0.4 Blood Urea Nitrogen 12 Calcium Level 8.2 L Carbon Dioxide Level 39 H Chloride Level 94 L Creatinine 0.51 L Eosinophils # 0.1 Eosinophils % 1.2 Glucose Level 70 Hematocrit 26.7 L Hemoglobin 8.5 L Lymphocytes # 1.2 Lymphocytes % 22.5 Mean Corpuscular Hemoglobin 28.2 L Mean Corpuscular Hemoglobin Concent 31.8 L Mean Corpuscular Volume 88.7 Mean Platelet Volume 11.5 H Monocytes # 0.4 Monocytes % 7.7 Neutrophils # 3.5 Neutrophils % 68.0 Nucleated Red Blood Cells # 0.0 Nucleated Red Blood Cells % 0.0 Platelet Count 105 L Potassium Level 3.3 L Red Blood Count 3.01 L Red Cell Distribution Width 17.7 H Sodium Level 138 White Blood Count 5.2 Test 05/04/16 08:00 Arterial Blood HCO3 37.8 H Arterial Blood Base Excess 11.6 H Arterial Blood Oxygen Saturation 97.8 Vishal Test ACCEPTAB Arterial Blood Gas Puncture Site Right Radial Arterial Blood Carboxyhemoglobin 0.3 Arterial Blood Date Drawn 05/04/2016 7:50:12 AM Arterial Blood Methemoglobin 0.3 Arterial Blood pCO2 (Temp correct) 60.2 H Arterial Blood pH (Temp corrected) 7.416 Arterial Blood pO2 (Temp corrected) 108.3 H Blood Gas A-a O2 Differential 107.7 H Blood Gas Actual Respiration Rate 17 Blood Gas Low PEEP Setting 5.0 Blood Gas Modality VENT - AC Blood Gas Notified Time 05/04/2016 8:24:59 AM Blood Gas Notified Whom JLD Blood Gas Respiration Rate 12.0 Blood Gas Specimen Source Blood arterial Blood Gas Temperature 37.0 Blood Gas Tidal Volume 450.0 FiO2 40.0 Oxyhemoglobin Percent 97.2 Total Hemoglobin 9.6 L Medications Medications Current Medications Ondansetron HCl (Zofran Inj) 4 mg Q6H PRN IV NAUSEA AND/OR VOMITING Last administered on 04/24/16 21:00; Admin Dose 4 MG; Start 04/11/16 at 22:30 Acetaminophen (Tylenol Tab) 650 mg Q6H PRN PO PAIN LEVEL 1-3 OR FEVER; Start at 22:30 Morphine Sulfate (morphine) 2 mg Q4H PRN IV PAIN LEVEL 7-10 Last administered on 05/04/16 03:01; Admin Dose 2 MG; Start 04/11/16 at 22:30 Ascorbic Acid (Vitamin C) 500 mg DAILY GTB Last administered on 05/02/16 10:09 ; Admin Dose 500 MG; Start 04/12/16 at 09:00 Bisacodyl (Dulcolax) 10 mg DAILY PRN PO CONSTIPATION; Start 04/11/16 at 22:30 Chlorhexidine Gluconate (Peridex) 15 ml BID MM Last administered on 05/03/16 21:58; Admin Dose 15 ML; Start 04/12/16 at 09:00 Ferrous Sulfate (Feosol Liquid Cup) 300 mg BID GTB Last administered on 10:08; Admin Dose 300 MG; Start 04/12/16 at 09:00 Acetaminophen/ Hydrocodone Bitart ([place] (5/325)) 1 tab Q4 PRN GTB PAIN LEVEL 6 -10; Start 04/11/16 at 22:30 Lactulose (Enulose) 20 gm DAILY GTB Last administered on 05/02/16 10:08; Admin Dose 20 GM; Start 04/12/16 at 09:00 Quetiapine Fumarate (Seroquel) 25 mg BID@ GTB Last administered on 10:15; Admin Dose 25 MG; Start 04/12/16 at 09:00 Quetiapine Fumarate (Seroquel) 200 mg HS GTB Last administered on 05/01/16 21: 34; Admin Dose 200 MG; Start 04/12/16 at 21:00 Senna (Senokot) 1 tab QHS GTB Last administered on 05/01/16 21:35; Admin Dose 1 TAB; Start 04/12/16 at 21:00 Sodium Biphosphate/ Sodium Phosphate (Fleet Enema Pediatric) 66.6 ml DAILY PRN [place] CONSTIPATION; Start 04/11/16 at 22:30 Thiamine HCl (Vitamin B1) 100 mg DAILY GTB Last administered on 05/02/16 10:09 ; Admin Dose 100 MG; Start 04/12/16 at 09:00 Calcium Carbonate (Tums) 500 mg DAILY GTB Last administered on 05/02/16 10:09 ; Admin Dose 500 MG; Start 04/12/16 at 09:00 Multivitamins/ Minerals (Theragran-M) 1 tab DAILY PO Last administered on 10:09; Admin Dose 1 TAB; Start 04/12/16 at 09:00 Hydralazine HCl (Apresoline) 10 mg Q6H PRN IV SBP >160 Last administered on 06:21; Admin Dose 10 MG; Start 04/12/16 at 12:30 Famotidine (Pepcid) 20 mg Q12 GTB Last administered on 05/02/16 10:09; Admin Dose 20 MG; Start 04/19/16 at 21:00 Lorazepam (Ativan) 1 mg Q4 PRN IV AGITATION/ANXIETY Last administered on 13:55; Admin Dose 1 MG; Start 04/24/16 at 21:00 Clonidine 0.1 mg 0.1 mg Q6H PRN PO ELEVATED BLOOD PRESSURE; Start 04/24/16 at 23 :30 Dextrose/Sodium Chloride 1,000 ml @ 60 mls/hr [id number] IV Last administered on 05/04/16 02:50; Admin Dose 60 MLS/HR; Start 04/26/16 at 11:30 Diltiazem HCl (Cardizem-D5W 125 Mg/125 ml Drip) 125 ml @ 5 mls/hr TITRATE IV Last administered on 04/27/16 22:28; Admin Dose 5 MLS/HR; Start 04/27/16 at 22:00 Metoprolol Tartrate (Lopressor) 5 mg Q4H PRN IV PRN HR>110 Hold SBP<100; Start 04/28/16 at 13:30 Furosemide (Lasix) 40 mg DAILY IV Last administered on 05/01/16 09:33; Admin Dose 40 MG; Start 04/30/16 at 09:00; Status Future Hold Metoprolol Tartrate (Lopressor) 25 mg BID PO Last administered on 04/29/16 21: 29; Admin Dose 25 MG; Start 04/29/16 at 21:00; Status Future Hold Lorazepam (Ativan) 1 mg Q6 GTB Last administered on 05/02/16 12:59; Admin Dose 1 MG; Start 05/02/16 at 00:00 Aspirin (Aspirin) 81 mg DAILY PO ; Start 05/02/16 at 14:30 Furosemide 20 mg 20 mg DAILY IV Last administered on 05/03/16 09:00; Admin Dose 20 MG; Start 05/03/16 at 09:00 Cefepime HCl 50 ml @ 100 mls/hr Q12 IVPB Last administered on 05/03/16 21:58 ; Admin Dose 100 MLS/HR; Start 05/03/16 at 10:00 Vancomycin HCl/ Sodium Chloride (Vancocin/NS) 150 ml @ 75 mls/hr Q12H IVPB Last administered on 05/03/16 23:50; Admin Dose 75 MLS/HR; Start 05/03/16 at 23 :00 Chlordiazepoxide (Librium) 10 mg TID PO ; Start 05/04/16 at 09:00 Miscellaneous Information 1 ONCE ONCE XX ; Start 05/04/16 at 22:00; Stop at 22:01 Midazolam HCl (Versed) 50 ml @ 1 mls/hr TITRATE IV ; Start 05/04/16 at 11:00 SHELBY BUNCH May 04, 2016 12:12
--- NOTE | 2016-05-04 12:23 | CONS ---
Date/Time of Note Date/Time of Note DATE: 05/04/16 TIME: 12:20 Assessment/Plan Assessment/Plan Additional Assessment/Plan 1. Wide complex tachycardia, cardiac arrhythmia. Rule out nonsustained ventricular tachycardia.-likely c/w abberant AF-no recurrence - IN SINUS NOW, h/ o CURT in the past 2. Abnormal electrocardiogram, assess for acute coronary syndrome. 3. Congestive heart failure by chest x-ray, diastolic by most recent echo acute on chronic- CXR with congestion, con't gentle diuresis. 4. Hypertension with episodes of borderline hypotension requiring IV fluid bolus now improved. s/p BUSINESS ANALYSIS ANALYST - will adjus therapy as needed. 5. Respiratory failure, chronic, status post tracheostomy with desat now transferred to ICU 6. Dysphagia, status post G-tube- good fxn. 7. Psychiatric disorder. 8. Urinary tract infection- on anti-bx, con't med rx. 9. Hypokalemia-improved 10. Anemia. 11. Leukopenia. 12.Nstemi-no current chest pain/decreasing enzymes 14. Bradycardia-improved with holding BB - no class I indication for pacer ( especially given chronic debilitated state) Consultation Date/Type/Reason Admit Date/Time Apr 11, 2016 at 22:13 Initial Consult Date 04/21/16 Type of Consultation: Pulmonary/critical care Referring Provider: ANNETTA AGUILAR MD 24 HR Interval Summary Free Text/Dictation s/p BUSINESS ANALYSIS ANALYST today on am - likely mucous plug - better now - in ICU. CXR with pulm congestion - on IV lasix now - will follow with gentle diuresis. ROS: No fever, no chills, no nausea, no vomiting, no diarrhea/constipation No recent weight changes No chest pain, no PND, no orthopnea No dizziness, blurred vision No thirst, no heat or cold intolerance (per nurse) Exam/Review of Systems Vital Signs Vitals Vital Signs Date Time Temp Pulse Resp B/P Pulse Ox O2 Delivery O2 Flow Rate FiO2 05/04/16 09:21 55 13 98 40 05/04/16 06:45 136/81 05/04/16 04:30 Mechanical Ventilator 05/04/16 04:11 97.1 05/02/16 16:20 10.0 Intake and Output 05/03/16 05/03/16 05/04/16 15:00 23:00 07:00 Intake Total 300.00 ml 724.95 ml 0 ml Output Total 1505 ml 370 ml Balance 300.00 ml -780.05 ml -370 ml Exam General: WN/WD/NAD, AOx 0 HEENT: Unicetric/atraumatic/EOMI (does not follow commands) NECK: JVD elevated, no thyromegaly, trach Lymph: no lymphadenopathy HEART: regular with no S3, II/ systolic murmur at apex LUNGS: Coarse sounds ABD: soft, NT, ND, +BS, pEG : Intact Neuro: non focal SKIN: chronic changes EXT: trace edema Results Result Diagram: 05/04/16 0500 05/04/16 0500 Results 24 hrs Laboratory Tests Test 05/03/16 14:10 05/03/16 21:48 05/04/16 05:00 05/04/16 06:00 Activated Partial Thromboplast Time 58.1 H 56.9 H Bedside Glucose 80 Anion Gap 8 Basophils # 0.0 Basophils % 0.4 Blood Urea Nitrogen 12 Calcium Level 8.2 L Carbon Dioxide Level 39 H Chloride Level 94 L Creatinine 0.51 L Eosinophils # 0.1 Eosinophils % 1.2 Glucose Level 70 Hematocrit 26.7 L Hemoglobin 8.5 L Lymphocytes # 1.2 Lymphocytes % 22.5 Mean Corpuscular Hemoglobin 28.2 L Mean Corpuscular Hemoglobin Concent 31.8 L Mean Corpuscular Volume 88.7 Mean Platelet Volume 11.5 H Monocytes # 0.4 Monocytes % 7.7 Neutrophils # 3.5 Neutrophils % 68.0 Nucleated Red Blood Cells # 0.0 Nucleated Red Blood Cells % 0.0 Platelet Count 105 L Potassium Level 3.3 L Red Blood Count 3.01 L Red Cell Distribution Width 17.7 H Sodium Level 138 White Blood Count 5.2 Test 05/04/16 08:00 Arterial Blood HCO3 37.8 H Arterial Blood Base Excess 11.6 H Arterial Blood Oxygen Saturation 97.8 Vishal Test ACCEPTAB Arterial Blood Gas Puncture Site Right Radial Arterial Blood Carboxyhemoglobin 0.3 Arterial Blood Date Drawn 05/04/2016 7:50:12 AM Arterial Blood Methemoglobin 0.3 Arterial Blood pCO2 (Temp correct) 60.2 H Arterial Blood pH (Temp corrected) 7.416 Arterial Blood pO2 (Temp corrected) 108.3 H Blood Gas A-a O2 Differential 107.7 H Blood Gas Actual Respiration Rate 17 Blood Gas Low PEEP Setting 5.0 Blood Gas Modality VENT - AC Blood Gas Notified Time 05/04/2016 8:24:59 AM Blood Gas Notified Whom JLD Blood Gas Respiration Rate 12.0 Blood Gas Specimen Source Blood arterial Blood Gas Temperature 37.0 Blood Gas Tidal Volume 450.0 FiO2 40.0 Oxyhemoglobin Percent 97.2 Total Hemoglobin 9.6 L Medications Medications Current Medications Ondansetron HCl (Zofran Inj) 4 mg Q6H PRN IV NAUSEA AND/OR VOMITING Last administered on 04/24/16 21:00; Admin Dose 4 MG; Start 04/11/16 at 22:30 Acetaminophen (Tylenol Tab) 650 mg Q6H PRN PO PAIN LEVEL 1-3 OR FEVER; Start at 22:30 Morphine Sulfate (morphine) 2 mg Q4H PRN IV PAIN LEVEL 7-10 Last administered on 05/04/16 03:01; Admin Dose 2 MG; Start 04/11/16 at 22:30 Ascorbic Acid (Vitamin C) 500 mg DAILY GTB Last administered on 05/02/16 10:09 ; Admin Dose 500 MG; Start 04/12/16 at 09:00 Bisacodyl (Dulcolax) 10 mg DAILY PRN PO CONSTIPATION; Start 04/11/16 at 22:30 Chlorhexidine Gluconate (Peridex) 15 ml BID MM Last administered on 05/03/16 21:58; Admin Dose 15 ML; Start 04/12/16 at 09:00 Ferrous Sulfate (Feosol Liquid Cup) 300 mg BID GTB Last administered on 10:08; Admin Dose 300 MG; Start 04/12/16 at 09:00 Acetaminophen/ Hydrocodone Bitart ([place] (5/325)) 1 tab Q4 PRN GTB PAIN LEVEL 6 -10; Start 04/11/16 at 22:30 Lactulose (Enulose) 20 gm DAILY GTB Last administered on 05/02/16 10:08; Admin Dose 20 GM; Start 04/12/16 at 09:00 Quetiapine Fumarate (Seroquel) 25 mg BID@ GTB Last administered on 10:15; Admin Dose 25 MG; Start 04/12/16 at 09:00 Quetiapine Fumarate (Seroquel) 200 mg HS GTB Last administered on 05/01/16 21: 34; Admin Dose 200 MG; Start 04/12/16 at 21:00 Senna (Senokot) 1 tab QHS GTB Last administered on 05/01/16 21:35; Admin Dose 1 TAB; Start 04/12/16 at 21:00 Sodium Biphosphate/ Sodium Phosphate (Fleet Enema Pediatric) 66.6 ml DAILY PRN [place] CONSTIPATION; Start 04/11/16 at 22:30 Thiamine HCl (Vitamin B1) 100 mg DAILY GTB Last administered on 05/02/16 10:09 ; Admin Dose 100 MG; Start 04/12/16 at 09:00 Calcium Carbonate (Tums) 500 mg DAILY GTB Last administered on 05/02/16 10:09 ; Admin Dose 500 MG; Start 04/12/16 at 09:00 Multivitamins/ Minerals (Theragran-M) 1 tab DAILY PO Last administered on 10:09; Admin Dose 1 TAB; Start 04/12/16 at 09:00 Hydralazine HCl (Apresoline) 10 mg Q6H PRN IV SBP >160 Last administered on 06:21; Admin Dose 10 MG; Start 04/12/16 at 12:30 Famotidine (Pepcid) 20 mg Q12 GTB Last administered on 05/02/16 10:09; Admin Dose 20 MG; Start 04/19/16 at 21:00 Lorazepam (Ativan) 1 mg Q4 PRN IV AGITATION/ANXIETY Last administered on 13:55; Admin Dose 1 MG; Start 04/24/16 at 21:00 Clonidine 0.1 mg 0.1 mg Q6H PRN PO ELEVATED BLOOD PRESSURE; Start 04/24/16 at 23 :30 Dextrose/Sodium Chloride 1,000 ml @ 60 mls/hr [id number] IV Last administered on 05/04/16 02:50; Admin Dose 60 MLS/HR; Start 04/26/16 at 11:30 Diltiazem HCl (Cardizem-D5W 125 Mg/125 ml Drip) 125 ml @ 5 mls/hr TITRATE IV Last administered on 04/27/16 22:28; Admin Dose 5 MLS/HR; Start 04/27/16 at 22:00 Metoprolol Tartrate (Lopressor) 5 mg Q4H PRN IV PRN HR>110 Hold SBP<100; Start 04/28/16 at 13:30 Furosemide (Lasix) 40 mg DAILY IV Last administered on 05/01/16 09:33; Admin Dose 40 MG; Start 04/30/16 at 09:00; Status Future Hold Metoprolol Tartrate (Lopressor) 25 mg BID PO Last administered on 04/29/16 21: 29; Admin Dose 25 MG; Start 04/29/16 at 21:00; Status Future Hold Lorazepam (Ativan) 1 mg Q6 GTB Last administered on 05/02/16 12:59; Admin Dose 1 MG; Start 05/02/16 at 00:00 Aspirin (Aspirin) 81 mg DAILY PO ; Start 05/02/16 at 14:30 Furosemide 20 mg 20 mg DAILY IV Last administered on 05/03/16 09:00; Admin Dose 20 MG; Start 05/03/16 at 09:00 Cefepime HCl 50 ml @ 100 mls/hr Q12 IVPB Last administered on 05/03/16 21:58 ; Admin Dose 100 MLS/HR; Start 05/03/16 at 10:00 Vancomycin HCl/ Sodium Chloride (Vancocin/NS) 150 ml @ 75 mls/hr Q12H IVPB Last administered on 05/03/16 23:50; Admin Dose 75 MLS/HR; Start 05/03/16 at 23 :00 Chlordiazepoxide (Librium) 10 mg TID PO ; Start 05/04/16 at 09:00 Miscellaneous Information 1 ONCE ONCE XX ; Start 05/04/16 at 22:00; Stop at 22:01 Midazolam HCl (Versed) 50 ml @ 1 mls/hr TITRATE IV ; Start 05/04/16 at 11:00 MOSHE GARCÍA MD May 04, 2016 12:23
[2016-05-04] MEDS: FERROUS SULFATE 60 MG/ML 5ML CUP GTB SCH ×2 (12:26→22:00)
[2016-05-04] MEDS: LACTULOSE 30ML CUP GTB SCH (12:26)
[2016-05-04] MEDS: FAMOTIDINE 20 MG TAB GTB SCH ×2 (12:41→22:00)
[2016-05-04] MEDS: FUROSEMIDE 20 MG INJ IV SCH (12:42)
[2016-05-04] MEDS: THIAMINE 100 MG TAB GTB SCH (12:42)
[2016-05-04] MEDS: ASCORBIC ACID 500 MG TAB GTB SCH (12:42)
[2016-05-04] MEDS: CALCIUM CARBONATE 500 MG CHEW TAB GTB SCH (12:42)
[2016-05-04] MEDS: CEFEPIME 1GM/50 ML (PMX) 50 ML IVPB SCH ×3 (12:43→20:28)
[2016-05-04] MEDS: ASPIRIN 81 MG TAB PO SCH (12:43)
[2016-05-04] MEDS: CHLORHEXIDINE GLUCONATE 15 ML UD CUP MM SCH ×2 (12:43→20:29)
[2016-05-04] MEDS: CHLORDIAZEPOXIDE 5 MG CAP PO SCH ×3 (12:44→22:00)
[2016-05-04] MEDS: MULTIVITAMINS/MINERALS TAB PO SCH (12:44)
--- NOTE | 2016-05-04 14:48 | PN ---
DATE: 05/04/2016 SUBJECTIVE: No acute changes. The patient is awake, looks comfortable. Bleeding from the tracheos neil resolved. WBC today 5.2, no shift, no bands, H and H 8.5 and 26.7. BUN 12, creatinine 0.51. VITAL SIGNS: Temperature 97.1, pulse 60, respirations 14, blood pressure 136/81, saturation 98 on 4 0 FIO2. INDWELLINGS: Trach, PEG, left upper extremity PICC line, Rae. ANTIMICROBIALS: 1. Vancomycin. 2. Cefepime. PHYSICAL EXAMINATION: GENERAL: Chronically ill-appearing elderly man who is lying comfortably in bed. HEENT: Head atraumatic, normocephalic. Sclerae anicteric. Buccal mucosa dry. NECK: Supple. Tracheostomy present. CHEST: Rise symmetrical. Breath sounds diminished to bases. HEART: S1, S2. ABDOMEN: Soft. Bowel tones present. EXTREMITIES: Without cyanosis. ASSESSMENT: 1. Status post endotracheal bleeding. 2. Healthcare-associated pneumonia, recurrent. 3. Status post Escherichia coli extended-spectrum beta-lactamase urinary tract infection with bacte remia. 4. History of schizoaffective disorder. 5. Benign prostatic hypertrophy. PLAN: The patient remains stable. Continue present care, antibiotics. Follow chest x-ray. Pulmon trish, cardiology recommendations. Pending ENT evaluation. Dictated By: MARK LONG SWISS TYPE SCREW MACHINE OPERATOR for [place] SAMAYOA/DAVID Conf#: [id number] DID#: [id number]
--- NOTE | 2016-05-04 14:57 | RADRPT ---
PROCEDURE: XR Chest. CLINICAL INDICATION: Check PICC line position. TECHNIQUE: Single frontal view. COMPARISON: Prior study done earlier the same day which demonstrated the PICC line tip in the supe rior vena cava. FINDINGS: There is a left arm PICC line with the tip in the lower superior vena cava. The tracheostomy tube a nd nasogastric tube remain in satisfactory position. There is bilateral air space disease consisten t with pulmonary edema, unchanged. The heart is enlarged. There are moderate bilateral pleural effusions. There is no pneumothorax. There are severe degenerative changes of the left glenohumeral joint. IMPRESSION: 1. Satisfactory position of left arm PICC line. 2. No other change from the prior study done earlier the same day. RPTAT: QQ .Tyler Paula MD, Date Time Electronically viewed and signed by .Tyler Paula MD, on 05/04/2016 14:57 .R/
[2016-05-04] MEDS: VANCOMYCIN 750 MG in SOD CHLORIDE 0.9% 150 ML IVPB SCH (17:46)
[2016-05-04] MEDS: MIDAZOLAM (DRIP) 50 mg/50 mL 50 ML IV SCH (20:53)
[2016-05-04] MEDS: QUETIAPINE 100 MG TAB GTB SCH (22:00)
[2016-05-04] MEDS: SENNA TAB GTB SCH (22:00)
[2016-05-05] VITALS (56 sets, daily range): BP systolic 75–173; BP diastolic 52–122; PULSE 53–79; RESP 12–27
--- NOTE | 2016-05-05 00:24 | RADRPT ---
PROCEDURE: Portable chest x-ray. CLINICAL INDICATION: Nasogastric tube placement. TECHNIQUE: Portable AP view of the chest. COMPARISON: 05/04/2016 at 02:14 p.m.. FINDINGS: A nasogastric tube terminates in the stomach. There is a tracheostomy tube in place. A left upper e xtremity PICC terminates in the superior cavoatrial junction. There is vascular congestion and pulmo nary edema, not significantly changed. Bilateral pleural effusions are not significantly changed. Th e cardiac silhouette is magnified. There is no pneumothorax. IMPRESSION: 1. Nasogastric tube tip in the stomach. 2. Vascular congestion, pulmonary edema, and bilateral pleural effusions, not significantly changed . RPTAT: HTAR .Juan Francisco Henao MD, Date Time Electronically viewed and signed by .Juan Francisco Henao MD, on 05/05/2016 00:23 .R/
[2016-05-05] MEDS: hydrALAzine 20 MG INJ IV PRN (00:49)
[2016-05-05] MEDS: LORAZEPAM 1 MG TAB GTB SCH ×4 (01:01→18:55)
[2016-05-05] MEDS: IPRATROPIUM (HFA) 12.9 GM INHALER INH SCH ×4 (01:27→19:26)
[2016-05-05] MEDS: ALBUTEROL HFA 8 GM INHALER INH SCH ×4 (01:27→19:26)
[2016-05-05] MEDS: MIDAZOLAM (DRIP) 50 mg/50 mL 50 ML IV SCH ×3 (01:59→14:22)
[2016-05-05 04:44] LABS: ADD SCAN DIFF NO
[2016-05-05 04:49] LABS: BASOPHILS % 0.4 % (0.0-2.0); EOSINOPHILS % 0.9 % (0.0-7.0); HEMATOCRIT 31.6 % (42.0-52.0); LYMPHOCYTES # 0.7 10^3/ul (0.8-2.9); LYMPHOCYTES % 15.1 % (15.0-51.0); MEAN CORPUSCULAR HEMOGLOBIN 27.6 pg (29.0-33.0); MEAN CORPUSCULAR HGB CONC 31.6 g/dl (32.0-37.0); MEAN CORPUSCULAR VOLUME 87.3 fl (82.0-101.0); MONOCYTE # 0.4 10^3/ul (0.3-0.9); MONOCYTES % 7.8 % (0.0-11.0); NEUTROPHIL # 3.4 10^3/ul (1.6-7.5); NEUTROPHILS % 75.6 % (39.0-77.0); PLATELET COUNT 107 10^3/UL (140-415); RED BLOOD COUNT 3.62 10^6/ul (4.70-6.10); RED CELL DISTRIBUTION WIDTH 17.2 % (11.5-14.5); WHITE BLOOD COUNT 4.5 10^3/ul (4.8-10.8)
[2016-05-05 05:28] LABS: POTASSIUM 3.3 mmol/L (3.5-5.1)
[2016-05-05 05:31] LABS: CALCIUM 8.6 mg/dl (8.4-10.2); CREATININE 0.42 mg/dl (0.61-1.24)
[2016-05-05] MEDS: VANCOMYCIN 750 MG in SOD CHLORIDE 0.9% 150 ML IVPB SCH ×2 (05:44→18:00)
[2016-05-05] MEDS: THIAMINE 100 MG TAB GTB SCH (09:37)
[2016-05-05] MEDS: FERROUS SULFATE 60 MG/ML 5ML CUP GTB SCH ×2 (09:37→21:20)
[2016-05-05] MEDS: LACTULOSE 30ML CUP GTB SCH (09:37)
[2016-05-05] MEDS: MULTIVITAMINS/MINERALS TAB PO SCH (09:37)
[2016-05-05] MEDS: ASPIRIN 81 MG TAB PO SCH (09:37)
[2016-05-05] MEDS: ASCORBIC ACID 500 MG TAB GTB SCH (09:37)
[2016-05-05] MEDS: CHLORHEXIDINE GLUCONATE 15 ML UD CUP MM SCH ×2 (09:37→21:20)
[2016-05-05] MEDS: FAMOTIDINE 20 MG TAB GTB SCH ×2 (09:37→21:21)
[2016-05-05] MEDS: FUROSEMIDE 20 MG INJ IV SCH (09:38)
[2016-05-05] MEDS: CHLORDIAZEPOXIDE 5 MG CAP PO SCH ×3 (09:50→21:21)
[2016-05-05] MEDS: CEFEPIME 1GM/50 ML (PMX) 50 ML IVPB SCH ×2 (09:50→21:18)
[2016-05-05] MEDS: CALCIUM CARBONATE 500 MG CHEW TAB GTB SCH (09:53)
[2016-05-05] MEDS: QUETIAPINE 25 MG TAB GTB SCH ×2 (10:00→17:00)
[2016-05-05] MEDS: LORAZEPAM 2 MG INJ IV PRN (10:00)
[2016-05-05] MEDS ORDERED: POTASSIUM CHLORIDE (SR) 20 MEQ TAB PO STA (12:03)
[2016-05-05] MEDS: DEXTROSE 5%-0.45% NACL 1,000 ML IV SCH ×2 (12:10→17:00)
--- NOTE | 2016-05-05 12:13 | CONS ---
Date/Time of Note Date/Time of Note DATE: 05/05/16 TIME: 12:09 Assessment/Plan Assessment/Plan Chief Complaint/Hosp Course 65 up male with acute hypoxic respiratory failure being admitted for sepsis secondary to ESBL bacteremia. Pt had a worsening normocytic anemia that was likely secondary to his underlying sepsis and antibiotic use. Pt is now off antibiotic and Hg has remained stable. PT had a bleeding trach site and found with and elevated PTT to 85. Pt was given SQ Vitamin K. He is no longer bleeding and PTT has decreased to 50's -continue to monitor Hg -continue treatment of underlying CHF -s/p 5 days of V iron. now on po iron -continue antibiotics. pt now on vanc and cefepime Approximately 40 min were spent at patient's bedside and in coordination of his care Problems: Consultation Date/Type/Reason Admit Date/Time Apr 11, 2016 at 22:13 Initial Consult Date 04/21/16 Type of Consultation: Hematology Reason for Consultation anemia Referring Provider: ANNETTA AGUILAR MD 24 HR Interval Summary Free Text/Dictation no longer bleeding from trach site. trying to wean off versed Exam/Review of Systems Vital Signs Vitals Vital Signs Date Time Temp Pulse Resp B/P Pulse Ox O2 Delivery O2 Flow Rate FiO2 05/05/16 11:30 75 12 80/59 100 Mechanical Ventilator 05/05/16 08:30 97.8 05/05/16 05:10 40 05/02/16 16:20 10.0 Intake and Output 05/04/16 05/04/16 05/05/16 15:00 23:00 07:00 Intake Total 388 ml 579 ml Output Total 2340 ml 210 ml Balance -1952 ml 369 ml Exam Constitutional: alert, oriented Psych: anxiety, depression Head: normocephalic Eyes: nl conjunctiva ENMT: nl external ears & nose Neck: other (trach in place) Respiratory: clear to auscultation, normal air movement Cardiovascular: regular rate and rhythm Gastrointestinal: soft Results Result Diagram: 05/05/16 0415 05/05/16 0415 Results 24 hrs Laboratory Tests Test 05/05/16 04:15 Activated Partial Thromboplast Time 51.2 H Anion Gap 7 L Basophils # 0.0 Basophils % 0.4 Blood Urea Nitrogen 10 Calcium Level 8.6 Carbon Dioxide Level 38 H Chloride Level 96 L Creatinine 0.42 L Eosinophils # 0.0 Eosinophils % 0.9 Glucose Level 90 Hematocrit 31.6 L Hemoglobin 10.0 L Lymphocytes # 0.7 L Lymphocytes % 15.1 Mean Corpuscular Hemoglobin 27.6 L Mean Corpuscular Hemoglobin Concent 31.6 L Mean Corpuscular Volume 87.3 Mean Platelet Volume 11.0 H Monocytes # 0.4 Monocytes % 7.8 Neutrophils # 3.4 Neutrophils % 75.6 Nucleated Red Blood Cells # 0.0 Nucleated Red Blood Cells % 0.0 Platelet Count 107 L Potassium Level 3.3 L Red Blood Count 3.62 #L Red Cell Distribution Width 17.2 H Sodium Level 138 White Blood Count 4.5 L Medications Medications Current Medications Ondansetron HCl (Zofran Inj) 4 mg Q6H PRN IV NAUSEA AND/OR VOMITING Last administered on 04/24/16 21:00; Admin Dose 4 MG; Start 04/11/16 at 22:30 Acetaminophen (Tylenol Tab) 650 mg Q6H PRN PO PAIN LEVEL 1-3 OR FEVER; Start at 22:30 Morphine Sulfate (morphine) 2 mg Q4H PRN IV PAIN LEVEL 7-10 Last administered on 05/04/16 03:01; Admin Dose 2 MG; Start 04/11/16 at 22:30 Ascorbic Acid (Vitamin C) 500 mg DAILY GTB Last administered on 05/05/16 09:37 ; Admin Dose 500 MG; Start 04/12/16 at 09:00 Bisacodyl (Dulcolax) 10 mg DAILY PRN PO CONSTIPATION; Start 04/11/16 at 22:30 Chlorhexidine Gluconate (Peridex) 15 ml BID MM Last administered on 05/05/16 09:37; Admin Dose 15 ML; Start 04/12/16 at 09:00 Ferrous Sulfate (Feosol Liquid Cup) 300 mg BID GTB Last administered on 09:37; Admin Dose 300 MG; Start 04/12/16 at 09:00 Acetaminophen/ Hydrocodone Bitart ([place] (5/325)) 1 tab Q4 PRN GTB PAIN LEVEL 6 -10; Start 04/11/16 at 22:30 Lactulose (Enulose) 20 gm DAILY GTB Last administered on 05/05/16 09:37; Admin Dose 20 GM; Start 04/12/16 at 09:00 Quetiapine Fumarate (Seroquel) 25 mg BID@ GTB Last administered on 10:00; Admin Dose 25 MG; Start 04/12/16 at 09:00 Quetiapine Fumarate (Seroquel) 200 mg HS GTB Last administered on 05/01/16 21: 34; Admin Dose 200 MG; Start 04/12/16 at 21:00 Senna (Senokot) 1 tab QHS GTB Last administered on 05/01/16 21:35; Admin Dose 1 TAB; Start 04/12/16 at 21:00 Sodium Biphosphate/ Sodium Phosphate (Fleet Enema Pediatric) 66.6 ml DAILY PRN [place] CONSTIPATION; Start 04/11/16 at 22:30 Thiamine HCl (Vitamin B1) 100 mg DAILY GTB Last administered on 05/05/16 09:37 ; Admin Dose 100 MG; Start 04/12/16 at 09:00 Calcium Carbonate (Tums) 500 mg DAILY GTB Last administered on 05/05/16 09:53 ; Admin Dose 500 MG; Start 04/12/16 at 09:00 Multivitamins/ Minerals (Theragran-M) 1 tab DAILY PO Last administered on 09:37; Admin Dose 1 TAB; Start 04/12/16 at 09:00 Hydralazine HCl (Apresoline) 10 mg Q6H PRN IV SBP >160 Last administered on 00:49; Admin Dose 10 MG; Start 04/12/16 at 12:30 Famotidine (Pepcid) 20 mg Q12 GTB Last administered on 05/05/16 09:37; Admin Dose 20 MG; Start 04/19/16 at 21:00 Lorazepam (Ativan) 1 mg Q4 PRN IV AGITATION/ANXIETY Last administered on 10:00; Admin Dose 1 MG; Start 04/24/16 at 21:00 Clonidine 0.1 mg 0.1 mg Q6H PRN PO ELEVATED BLOOD PRESSURE; Start 04/24/16 at 23 :30 Dextrose/Sodium Chloride 1,000 ml @ 60 mls/hr [id number] IV Last administered on 05/04/16 20:02; Admin Dose 60 MLS/HR; Start 04/26/16 at 11:30 Diltiazem HCl (Cardizem-D5W 125 Mg/125 ml Drip) 125 ml @ 5 mls/hr TITRATE IV Last administered on 04/27/16 22:28; Admin Dose 5 MLS/HR; Start 04/27/16 at 22:00 Metoprolol Tartrate (Lopressor) 5 mg Q4H PRN IV PRN HR>110 Hold SBP<100; Start 04/28/16 at 13:30 Furosemide (Lasix) 40 mg DAILY IV Last administered on 05/01/16 09:33; Admin Dose 40 MG; Start 04/30/16 at 09:00; Status Future Hold Metoprolol Tartrate (Lopressor) 25 mg BID PO Last administered on 04/29/16 21: 29; Admin Dose 25 MG; Start 04/29/16 at 21:00; Status Future Hold Lorazepam (Ativan) 1 mg Q6 GTB Last administered on 05/05/16 05:44; Admin Dose 1 MG; Start 05/02/16 at 00:00 Aspirin (Aspirin) 81 mg DAILY PO Last administered on 05/05/16 09:37; Admin Dose 81 MG; Start 05/02/16 at 14:30 Furosemide 20 mg 20 mg DAILY IV Last administered on 05/05/16 09:38; Admin Dose 20 MG; Start 05/03/16 at 09:00 Cefepime HCl (Maxipime 1gm/50 ml (Pmx)) 50 ml @ 100 mls/hr Q12 IVPB Last administered on 05/05/16 09:50; Admin Dose 100 MLS/HR; Start 05/03/16 at 10:00 Chlordiazepoxide 10 mg 10 mg TID PO Last administered on 05/05/16 09:50; Admin Dose 10 MG; Start 05/04/16 at 09:00 Midazolam HCl 50 ml @ 1 mls/hr TITRATE IV Last administered on 05/05/16 07:39 ; Admin Dose 10 MLS/HR; Start 05/04/16 at 11:00 Vancomycin HCl/ Sodium Chloride (Vancocin/NS) 150 ml @ 75 mls/hr Q12H IVPB Last administered on 05/05/16 05:44; Admin Dose 75 MLS/HR; Start 05/05/16 at 05 :00 JESI MONTEMAYOR M.D. May 05, 2016 12:12
--- NOTE | 2016-05-05 12:14 | CONS ---
Date/Time of Note Date/Time of Note DATE: 05/05/16 TIME: 12:13 Assessment/Plan Assessment/Plan Chief Complaint/Hosp Course SUBJECTIVE: No acute changes. The patient is awake, looks comfortable. INDWELLINGS: Trach, NGT, left upper extremity PICC line, Rae. ANTIMICROBIALS: 1. Vancomycin. 2. Cefepime. PHYSICAL EXAMINATION: GENERAL: Chronically ill-appearing elderly man who is lying comfortably in bed. HEENT: Head atraumatic, normocephalic. Sclerae anicteric. Buccal mucosa dry. NECK: Supple. Tracheostomy present. CHEST: Rise symmetrical. Breath sounds diminished to bases. HEART: S1, S2. ABDOMEN: Soft. Bowel tones present. EXTREMITIES: Without cyanosis. ASSESSMENT: 1. Status post endotracheal bleeding. 2. Healthcare-associated pneumonia, recurrent. 3. Status post Escherichia coli extended-spectrum beta-lactamase urinary tract infection with bacteremia. 4. History of schizoaffective disorder. 5. Benign prostatic hypertrophy. PLAN: The patient remains stable. Continue present care, antibiotics. Follow chest x-ray. Pulmonary, cardiology recommendations. DW staff Problems: Consultation Date/Type/Reason Admit Date/Time Apr 11, 2016 at 22:13 Initial Consult Date 04/12/16 Type of Consultation: ID Referring Provider: ANNETTA AGUILAR MD Exam/Review of Systems Vital Signs Vitals Vital Signs Date Time Temp Pulse Resp B/P Pulse Ox O2 Delivery O2 Flow Rate FiO2 05/05/16 11:30 75 12 80/59 100 Mechanical Ventilator 05/05/16 08:30 97.8 05/05/16 05:10 40 05/02/16 16:20 10.0 Intake and Output 05/04/16 05/04/16 05/05/16 15:00 23:00 07:00 Intake Total 388 ml 579 ml Output Total 2340 ml 210 ml Balance -1952 ml 369 ml Results Result Diagram: 05/05/16 0415 05/05/16 0415 Results 24 hrs Laboratory Tests Test 05/05/16 04:15 Activated Partial Thromboplast Time 51.2 H Anion Gap 7 L Basophils # 0.0 Basophils % 0.4 Blood Urea Nitrogen 10 Calcium Level 8.6 Carbon Dioxide Level 38 H Chloride Level 96 L Creatinine 0.42 L Eosinophils # 0.0 Eosinophils % 0.9 Glucose Level 90 Hematocrit 31.6 L Hemoglobin 10.0 L Lymphocytes # 0.7 L Lymphocytes % 15.1 Mean Corpuscular Hemoglobin 27.6 L Mean Corpuscular Hemoglobin Concent 31.6 L Mean Corpuscular Volume 87.3 Mean Platelet Volume 11.0 H Monocytes # 0.4 Monocytes % 7.8 Neutrophils # 3.4 Neutrophils % 75.6 Nucleated Red Blood Cells # 0.0 Nucleated Red Blood Cells % 0.0 Platelet Count 107 L Potassium Level 3.3 L Red Blood Count 3.62 #L Red Cell Distribution Width 17.2 H Sodium Level 138 White Blood Count 4.5 L Medications Medications Current Medications Ondansetron HCl (Zofran Inj) 4 mg Q6H PRN IV NAUSEA AND/OR VOMITING Last administered on 04/24/16 21:00; Admin Dose 4 MG; Start 04/11/16 at 22:30 Acetaminophen (Tylenol Tab) 650 mg Q6H PRN PO PAIN LEVEL 1-3 OR FEVER; Start at 22:30 Morphine Sulfate (morphine) 2 mg Q4H PRN IV PAIN LEVEL 7-10 Last administered on 05/04/16 03:01; Admin Dose 2 MG; Start 04/11/16 at 22:30 Ascorbic Acid (Vitamin C) 500 mg DAILY GTB Last administered on 05/05/16 09:37 ; Admin Dose 500 MG; Start 04/12/16 at 09:00 Bisacodyl (Dulcolax) 10 mg DAILY PRN PO CONSTIPATION; Start 04/11/16 at 22:30 Chlorhexidine Gluconate (Peridex) 15 ml BID MM Last administered on 05/05/16 09:37; Admin Dose 15 ML; Start 04/12/16 at 09:00 Ferrous Sulfate (Feosol Liquid Cup) 300 mg BID GTB Last administered on 09:37; Admin Dose 300 MG; Start 04/12/16 at 09:00 Acetaminophen/ Hydrocodone Bitart ([place] (5/325)) 1 tab Q4 PRN GTB PAIN LEVEL 6 -10; Start 04/11/16 at 22:30 Lactulose (Enulose) 20 gm DAILY GTB Last administered on 05/05/16 09:37; Admin Dose 20 GM; Start 04/12/16 at 09:00 Quetiapine Fumarate (Seroquel) 25 mg BID@ GTB Last administered on 10:00; Admin Dose 25 MG; Start 04/12/16 at 09:00 Quetiapine Fumarate (Seroquel) 200 mg HS GTB Last administered on 05/01/16 21: 34; Admin Dose 200 MG; Start 04/12/16 at 21:00 Senna (Senokot) 1 tab QHS GTB Last administered on 05/01/16 21:35; Admin Dose 1 TAB; Start 04/12/16 at 21:00 Sodium Biphosphate/ Sodium Phosphate (Fleet Enema Pediatric) 66.6 ml DAILY PRN [place] CONSTIPATION; Start 04/11/16 at 22:30 Thiamine HCl (Vitamin B1) 100 mg DAILY GTB Last administered on 05/05/16 09:37 ; Admin Dose 100 MG; Start 04/12/16 at 09:00 Calcium Carbonate (Tums) 500 mg DAILY GTB Last administered on 05/05/16 09:53 ; Admin Dose 500 MG; Start 04/12/16 at 09:00 Multivitamins/ Minerals (Theragran-M) 1 tab DAILY PO Last administered on 09:37; Admin Dose 1 TAB; Start 04/12/16 at 09:00 Hydralazine HCl (Apresoline) 10 mg Q6H PRN IV SBP >160 Last administered on 00:49; Admin Dose 10 MG; Start 04/12/16 at 12:30 Famotidine (Pepcid) 20 mg Q12 GTB Last administered on 05/05/16 09:37; Admin Dose 20 MG; Start 04/19/16 at 21:00 Lorazepam (Ativan) 1 mg Q4 PRN IV AGITATION/ANXIETY Last administered on 10:00; Admin Dose 1 MG; Start 04/24/16 at 21:00 Clonidine 0.1 mg 0.1 mg Q6H PRN PO ELEVATED BLOOD PRESSURE; Start 04/24/16 at 23 :30 Dextrose/Sodium Chloride 1,000 ml @ 60 mls/hr [id number] IV Last administered on 05/04/16 20:02; Admin Dose 60 MLS/HR; Start 04/26/16 at 11:30 Diltiazem HCl (Cardizem-D5W 125 Mg/125 ml Drip) 125 ml @ 5 mls/hr TITRATE IV Last administered on 04/27/16 22:28; Admin Dose 5 MLS/HR; Start 04/27/16 at 22:00 Metoprolol Tartrate (Lopressor) 5 mg Q4H PRN IV PRN HR>110 Hold SBP<100; Start 04/28/16 at 13:30 Furosemide (Lasix) 40 mg DAILY IV Last administered on 05/01/16 09:33; Admin Dose 40 MG; Start 04/30/16 at 09:00; Status Future Hold Metoprolol Tartrate (Lopressor) 25 mg BID PO Last administered on 04/29/16 21: 29; Admin Dose 25 MG; Start 04/29/16 at 21:00; Status Future Hold Lorazepam (Ativan) 1 mg Q6 GTB Last administered on 05/05/16 05:44; Admin Dose 1 MG; Start 05/02/16 at 00:00 Aspirin (Aspirin) 81 mg DAILY PO Last administered on 05/05/16 09:37; Admin Dose 81 MG; Start 05/02/16 at 14:30 Furosemide 20 mg 20 mg DAILY IV Last administered on 05/05/16 09:38; Admin Dose 20 MG; Start 05/03/16 at 09:00 Cefepime HCl (Maxipime 1gm/50 ml (Pmx)) 50 ml @ 100 mls/hr Q12 IVPB Last administered on 05/05/16 09:50; Admin Dose 100 MLS/HR; Start 05/03/16 at 10:00 Chlordiazepoxide 10 mg 10 mg TID PO Last administered on 05/05/16 09:50; Admin Dose 10 MG; Start 05/04/16 at 09:00 Midazolam HCl 50 ml @ 1 mls/hr TITRATE IV Last administered on 05/05/16 07:39 ; Admin Dose 10 MLS/HR; Start 05/04/16 at 11:00 Vancomycin HCl/ Sodium Chloride (Vancocin/NS) 150 ml @ 75 mls/hr Q12H IVPB Last administered on 05/05/16 05:44; Admin Dose 75 MLS/HR; Start 05/05/16 at 05 :00 MARK LONG NP May 05, 2016 12:13
--- NOTE | 2016-05-05 13:40 | CONS ---
Date/Time of Note Date/Time of Note DATE: 05/05/16 TIME: 13:35 Assessment/Plan Assessment/Plan Chief Complaint/Hosp Course IMPRESSION: 1. Wide complex tachycardia, cardiac arrhythmia. Rule out nonsustained ventricular tachycardia.-likely c/w abberant AF-no recurrence 2. Abnormal electrocardiogram, assess for acute coronary syndrome. 3. Congestive heart failure by chest x-ray, diastolic by most recent echo acute on chronic. 4. Hypertension with current borderline HOtn s/p IVP hydralazine 5. Respiratory failure, chronic, status post tracheostomy with desat now transferred to ICU 6. Dysphagia, status post G-tube. 7. Psychiatric disorder. 8. Urinary tract infection. 9. Hypokalemia-improved 10. Anemia. 11. Leukopenia. 12.Nstemi-no current chest pain/decreasing enzymes 14. Bradycardia-improved with holding BB Recc: -Tele -Continue to hold BB given prior bradycardia -Continue asa medical therapy for nstemi with currently decreasing cardiac enzymes -Trend cardiac enzymes which are downtrending -Continue daily lasix diuresis but increase dose to improve diuresis -[facility] discussed with patient but patient does not have clear understanding and would like to wait -LOvenox held due top trach site bleeding Problems: Consultation Date/Type/Reason Admit Date/Time Apr 11, 2016 at 22:13 Initial Consult Date 04/21/16 Type of Consultation: Cardiology Reason for Consultation Nstemi Referring Provider: ANNETTA AGUILAR MD Exam/Review of Systems Vital Signs Vitals Vital Signs Date Time Temp Pulse Resp B/P Pulse Ox O2 Delivery O2 Flow Rate FiO2 05/05/16 11:55 73 13 100 40 05/05/16 11:30 80/59 Mechanical Ventilator 05/05/16 08:30 97.8 05/02/16 16:20 10.0 Intake and Output 05/04/16 05/04/16 05/05/16 15:00 23:00 07:00 Intake Total 388 ml 579 ml Output Total 2340 ml 210 ml Balance -1952 ml 369 ml Exam Review of Systems: CONSTITUTIONAL: No fevers, chills. PULMONARY: trached CARDIOVASCULAR: No chest pain/palpitations GASTROINTESTINAL: No nausea/vomiting. GENITOURINARY: No hematuria/dysuria. MUSCULOSKELETAL: No myagias/arthalgias. PSYCHIATRIC: The patient denies depression. NEUROLOGIC: confused/sedated Constitutional: other (sleeping) Psych: no complaints ENMT: other (trached) Neck: jvd (9 cm water) Respiratory: diminished breath sounds Cardiovascular: regular rate and rhythm Gastrointestinal: soft Musculoskeletal: muscle tone (normal) Extremities: edema (none) Neurological: other (No focal deficits/contracted) Results Result Diagram: 05/05/16 0415 05/05/16 0415 Results 24 hrs Laboratory Tests Test 05/05/16 04:15 Activated Partial Thromboplast Time 51.2 H Anion Gap 7 L Basophils # 0.0 Basophils % 0.4 Blood Urea Nitrogen 10 Calcium Level 8.6 Carbon Dioxide Level 38 H Chloride Level 96 L Creatinine 0.42 L Eosinophils # 0.0 Eosinophils % 0.9 Glucose Level 90 Hematocrit 31.6 L Hemoglobin 10.0 L Lymphocytes # 0.7 L Lymphocytes % 15.1 Mean Corpuscular Hemoglobin 27.6 L Mean Corpuscular Hemoglobin Concent 31.6 L Mean Corpuscular Volume 87.3 Mean Platelet Volume 11.0 H Monocytes # 0.4 Monocytes % 7.8 Neutrophils # 3.4 Neutrophils % 75.6 Nucleated Red Blood Cells # 0.0 Nucleated Red Blood Cells % 0.0 Platelet Count 107 L Potassium Level 3.3 L Red Blood Count 3.62 #L Red Cell Distribution Width 17.2 H Sodium Level 138 White Blood Count 4.5 L Medications Medications Current Medications Ondansetron HCl (Zofran Inj) 4 mg Q6H PRN IV NAUSEA AND/OR VOMITING Last administered on 04/24/16 21:00; Admin Dose 4 MG; Start 04/11/16 at 22:30 Acetaminophen (Tylenol Tab) 650 mg Q6H PRN PO PAIN LEVEL 1-3 OR FEVER; Start at 22:30 Morphine Sulfate (morphine) 2 mg Q4H PRN IV PAIN LEVEL 7-10 Last administered on 05/04/16 03:01; Admin Dose 2 MG; Start 04/11/16 at 22:30 Ascorbic Acid (Vitamin C) 500 mg DAILY GTB Last administered on 05/05/16 09:37 ; Admin Dose 500 MG; Start 04/12/16 at 09:00 Bisacodyl (Dulcolax) 10 mg DAILY PRN PO CONSTIPATION; Start 04/11/16 at 22:30 Chlorhexidine Gluconate (Peridex) 15 ml BID MM Last administered on 05/05/16 09:37; Admin Dose 15 ML; Start 04/12/16 at 09:00 Ferrous Sulfate (Feosol Liquid Cup) 300 mg BID GTB Last administered on 09:37; Admin Dose 300 MG; Start 04/12/16 at 09:00 Acetaminophen/ Hydrocodone Bitart ([place] (5/325)) 1 tab Q4 PRN GTB PAIN LEVEL 6 -10; Start 04/11/16 at 22:30 Lactulose (Enulose) 20 gm DAILY GTB Last administered on 05/05/16 09:37; Admin Dose 20 GM; Start 04/12/16 at 09:00 Quetiapine Fumarate (Seroquel) 25 mg BID@ GTB Last administered on 10:00; Admin Dose 25 MG; Start 04/12/16 at 09:00 Quetiapine Fumarate (Seroquel) 200 mg HS GTB Last administered on 05/01/16 21: 34; Admin Dose 200 MG; Start 04/12/16 at 21:00 Senna (Senokot) 1 tab QHS GTB Last administered on 05/01/16 21:35; Admin Dose 1 TAB; Start 04/12/16 at 21:00 Sodium Biphosphate/ Sodium Phosphate (Fleet Enema Pediatric) 66.6 ml DAILY PRN [place] CONSTIPATION; Start 04/11/16 at 22:30 Thiamine HCl (Vitamin B1) 100 mg DAILY GTB Last administered on 05/05/16 09:37 ; Admin Dose 100 MG; Start 04/12/16 at 09:00 Calcium Carbonate (Tums) 500 mg DAILY GTB Last administered on 05/05/16 09:53 ; Admin Dose 500 MG; Start 04/12/16 at 09:00 Multivitamins/ Minerals (Theragran-M) 1 tab DAILY PO Last administered on 09:37; Admin Dose 1 TAB; Start 04/12/16 at 09:00 Hydralazine HCl (Apresoline) 10 mg Q6H PRN IV SBP >160 Last administered on 00:49; Admin Dose 10 MG; Start 04/12/16 at 12:30 Famotidine (Pepcid) 20 mg Q12 GTB Last administered on 05/05/16 09:37; Admin Dose 20 MG; Start 04/19/16 at 21:00 Lorazepam (Ativan) 1 mg Q4 PRN IV AGITATION/ANXIETY Last administered on 10:00; Admin Dose 1 MG; Start 04/24/16 at 21:00 Clonidine 0.1 mg 0.1 mg Q6H PRN PO ELEVATED BLOOD PRESSURE; Start 04/24/16 at 23 :30 Dextrose/Sodium Chloride 1,000 ml @ 60 mls/hr [id number] IV Last administered on 05/04/16 20:02; Admin Dose 60 MLS/HR; Start 04/26/16 at 11:30 Diltiazem HCl (Cardizem-D5W 125 Mg/125 ml Drip) 125 ml @ 5 mls/hr TITRATE IV Last administered on 04/27/16 22:28; Admin Dose 5 MLS/HR; Start 04/27/16 at 22:00 Metoprolol Tartrate (Lopressor) 5 mg Q4H PRN IV PRN HR>110 Hold SBP<100; Start 04/28/16 at 13:30 Furosemide (Lasix) 40 mg DAILY IV Last administered on 05/01/16 09:33; Admin Dose 40 MG; Start 04/30/16 at 09:00; Status Future Hold Metoprolol Tartrate (Lopressor) 25 mg BID PO Last administered on 04/29/16 21: 29; Admin Dose 25 MG; Start 04/29/16 at 21:00; Status Future Hold Lorazepam (Ativan) 1 mg Q6 GTB Last administered on 05/05/16 12:29; Admin Dose 1 MG; Start 05/02/16 at 00:00 Aspirin (Aspirin) 81 mg DAILY PO Last administered on 05/05/16 09:37; Admin Dose 81 MG; Start 05/02/16 at 14:30 Furosemide 20 mg 20 mg DAILY IV Last administered on 05/05/16 09:38; Admin Dose 20 MG; Start 05/03/16 at 09:00 Cefepime HCl (Maxipime 1gm/50 ml (Pmx)) 50 ml @ 100 mls/hr Q12 IVPB Last administered on 05/05/16 09:50; Admin Dose 100 MLS/HR; Start 05/03/16 at 10:00 Chlordiazepoxide 10 mg 10 mg TID PO Last administered on 05/05/16 09:50; Admin Dose 10 MG; Start 05/04/16 at 09:00 Midazolam HCl 50 ml @ 1 mls/hr TITRATE IV Last administered on 05/05/16 07:39 ; Admin Dose 10 MLS/HR; Start 05/04/16 at 11:00 Vancomycin HCl/ Sodium Chloride (Vancocin/NS) 150 ml @ 75 mls/hr Q12H IVPB Last administered on 05/05/16 05:44; Admin Dose 75 MLS/HR; Start 05/05/16 at 05 :00 LILI BRADEN May 05, 2016 13:40
--- NOTE | 2016-05-05 14:34 | CONS ---
Date/Time of Note Date/Time of Note DATE: 05/05/16 TIME: 14:32 Consultation Date/Type/Reason Admit Date/Time Apr 11, 2016 at 22:13 Initial Consult Date 04/12/16 Type of Consultation: Pulmonary/critical care Referring Provider: ANNETTA AGUILAR MD 24 HR Interval Summary Free Text/Dictation Patient condition remains stable. Is awake and alert. Still has to be restrained on account of history of chronic alcoholic encephalopathy causing frequent agitation patient tries to pull various lines and catheters. Abdomen exam; elderly male, currently in no distress. Awake and alert. On ventilator via tracheostomy. Exam/Review of Systems Vital Signs Vitals Vital Signs Date Time Temp Pulse Resp B/P Pulse Ox O2 Delivery O2 Flow Rate FiO2 05/05/16 11:55 73 13 100 40 05/05/16 11:30 80/59 Mechanical Ventilator 05/05/16 08:30 97.8 05/02/16 16:20 10.0 Intake and Output 05/04/16 05/04/16 05/05/16 15:00 23:00 07:00 Intake Total 388 ml 579 ml Output Total 2340 ml 210 ml Balance -1952 ml 369 ml Exam H EENT examination: Supple neck, positive JVD. No lymphadenopathy. Midline trachea. No thyromegaly. Patient has edentulous upper jaw. Pupils are midsize reactive to light bilaterally. Tracheostomy in place with clean insertion site. Chest examination; diminished breath on lung bases bilaterally. S1-S2 audible, no murmurs. Regular rhythm. Abdomen examination; soft, nondistended. No organomegaly. Bowel is audible. Extremity examination; no peripheral edema. Next [employer] examination; patient is awake alert has stable paraplegia. Results Result Diagram: 05/05/16 0415 05/05/16 0415 Results 24 hrs Laboratory Tests Test 05/05/16 04:15 Activated Partial Thromboplast Time 51.2 H Anion Gap 7 L Basophils # 0.0 Basophils % 0.4 Blood Urea Nitrogen 10 Calcium Level 8.6 Carbon Dioxide Level 38 H Chloride Level 96 L Creatinine 0.42 L Eosinophils # 0.0 Eosinophils % 0.9 Glucose Level 90 Hematocrit 31.6 L Hemoglobin 10.0 L Lymphocytes # 0.7 L Lymphocytes % 15.1 Mean Corpuscular Hemoglobin 27.6 L Mean Corpuscular Hemoglobin Concent 31.6 L Mean Corpuscular Volume 87.3 Mean Platelet Volume 11.0 H Monocytes # 0.4 Monocytes % 7.8 Neutrophils # 3.4 Neutrophils % 75.6 Nucleated Red Blood Cells # 0.0 Nucleated Red Blood Cells % 0.0 Platelet Count 107 L Potassium Level 3.3 L Red Blood Count 3.62 #L Red Cell Distribution Width 17.2 H Sodium Level 138 White Blood Count 4.5 L Medications Medications Current Medications Ondansetron HCl (Zofran Inj) 4 mg Q6H PRN IV NAUSEA AND/OR VOMITING Last administered on 04/24/16 21:00; Admin Dose 4 MG; Start 04/11/16 at 22:30 Acetaminophen (Tylenol Tab) 650 mg Q6H PRN PO PAIN LEVEL 1-3 OR FEVER; Start at 22:30 Morphine Sulfate (morphine) 2 mg Q4H PRN IV PAIN LEVEL 7-10 Last administered on 05/04/16 03:01; Admin Dose 2 MG; Start 04/11/16 at 22:30 Ascorbic Acid (Vitamin C) 500 mg DAILY GTB Last administered on 05/05/16 09:37 ; Admin Dose 500 MG; Start 04/12/16 at 09:00 Bisacodyl (Dulcolax) 10 mg DAILY PRN PO CONSTIPATION; Start 04/11/16 at 22:30 Chlorhexidine Gluconate (Peridex) 15 ml BID MM Last administered on 05/05/16 09:37; Admin Dose 15 ML; Start 04/12/16 at 09:00 Ferrous Sulfate (Feosol Liquid Cup) 300 mg BID GTB Last administered on 09:37; Admin Dose 300 MG; Start 04/12/16 at 09:00 Acetaminophen/ Hydrocodone Bitart ([place] (5/325)) 1 tab Q4 PRN GTB PAIN LEVEL 6 -10; Start 04/11/16 at 22:30 Lactulose (Enulose) 20 gm DAILY GTB Last administered on 05/05/16 09:37; Admin Dose 20 GM; Start 04/12/16 at 09:00 Quetiapine Fumarate (Seroquel) 25 mg BID@ GTB Last administered on 10:00; Admin Dose 25 MG; Start 04/12/16 at 09:00 Quetiapine Fumarate (Seroquel) 200 mg HS GTB Last administered on 05/01/16 21: 34; Admin Dose 200 MG; Start 04/12/16 at 21:00 Senna (Senokot) 1 tab QHS GTB Last administered on 05/01/16 21:35; Admin Dose 1 TAB; Start 04/12/16 at 21:00 Sodium Biphosphate/ Sodium Phosphate (Fleet Enema Pediatric) 66.6 ml DAILY PRN [place] CONSTIPATION; Start 04/11/16 at 22:30 Thiamine HCl (Vitamin B1) 100 mg DAILY GTB Last administered on 05/05/16 09:37 ; Admin Dose 100 MG; Start 04/12/16 at 09:00 Calcium Carbonate (Tums) 500 mg DAILY GTB Last administered on 05/05/16 09:53 ; Admin Dose 500 MG; Start 04/12/16 at 09:00 Multivitamins/ Minerals (Theragran-M) 1 tab DAILY PO Last administered on 09:37; Admin Dose 1 TAB; Start 04/12/16 at 09:00 Hydralazine HCl (Apresoline) 10 mg Q6H PRN IV SBP >160 Last administered on 00:49; Admin Dose 10 MG; Start 04/12/16 at 12:30 Famotidine (Pepcid) 20 mg Q12 GTB Last administered on 05/05/16 09:37; Admin Dose 20 MG; Start 04/19/16 at 21:00 Lorazepam (Ativan) 1 mg Q4 PRN IV AGITATION/ANXIETY Last administered on 10:00; Admin Dose 1 MG; Start 04/24/16 at 21:00 Clonidine 0.1 mg 0.1 mg Q6H PRN PO ELEVATED BLOOD PRESSURE; Start 04/24/16 at 23 :30 Dextrose/Sodium Chloride 1,000 ml @ 60 mls/hr [id number] IV Last administered on 05/04/16 20:02; Admin Dose 60 MLS/HR; Start 04/26/16 at 11:30 Diltiazem HCl (Cardizem-D5W 125 Mg/125 ml Drip) 125 ml @ 5 mls/hr TITRATE IV Last administered on 04/27/16 22:28; Admin Dose 5 MLS/HR; Start 04/27/16 at 22:00 Metoprolol Tartrate (Lopressor) 5 mg Q4H PRN IV PRN HR>110 Hold SBP<100; Start 04/28/16 at 13:30 Furosemide (Lasix) 40 mg DAILY IV Last administered on 05/01/16 09:33; Admin Dose 40 MG; Start 04/30/16 at 09:00; Status Future Hold Metoprolol Tartrate (Lopressor) 25 mg BID PO Last administered on 04/29/16 21: 29; Admin Dose 25 MG; Start 04/29/16 at 21:00; Status Future Hold Lorazepam (Ativan) 1 mg Q6 GTB Last administered on 05/05/16 12:29; Admin Dose 1 MG; Start 05/02/16 at 00:00 Aspirin (Aspirin) 81 mg DAILY PO Last administered on 05/05/16 09:37; Admin Dose 81 MG; Start 05/02/16 at 14:30 Furosemide 20 mg 20 mg DAILY IV Last administered on 05/05/16 09:38; Admin Dose 20 MG; Start 05/03/16 at 09:00 Cefepime HCl (Maxipime 1gm/50 ml (Pmx)) 50 ml @ 100 mls/hr Q12 IVPB Last administered on 05/05/16 09:50; Admin Dose 100 MLS/HR; Start 05/03/16 at 10:00 Chlordiazepoxide 10 mg 10 mg TID PO Last administered on 05/05/16 14:22; Admin Dose 10 MG; Start 05/04/16 at 09:00 Midazolam HCl 50 ml @ 1 mls/hr TITRATE IV Last administered on 05/05/16 14:22 ; Admin Dose 8 MLS/HR; Start 05/04/16 at 11:00 Vancomycin HCl/ Sodium Chloride (Vancocin/NS) 150 ml @ 75 mls/hr Q12H IVPB Last administered on 05/05/16 05:44; Admin Dose 75 MLS/HR; Start 05/05/16 at 05 :00 KATHERYN LAWTON 15, 2017 14:34
--- NOTE | 2016-05-05 14:35 | CONS ---
Date/Time of Note Date/Time of Note DATE: 05/05/16 TIME: 14:34 Assessment/Plan Assessment/Plan Additional Assessment/Plan Ventilator settings; AC of 12, tidal volume 450, PEEP of 5, 40% FiO2. Next Assessment recommendations; next 1. Patient with chronic respiratory failure admitted for extensive left-sided pneumonia patient did well but then developed bilateral pneumonia causing respiratory failure with severe hypercapnia now currently requiring full ventilator support. 2. CHF. 3. History of paraplegia. 4. History of tracheostomy. 5. History of alcoholic encephalopathy. Continue current treatment. Will obtain a follow-up chest x-ray. Prognosis remains poor. Consultation Date/Type/Reason Admit Date/Time Apr 11, 2016 at 22:13 Initial Consult Date 04/12/16 Type of Consultation: Pulmonary/critical care Referring Provider: ANNETTA AGUILAR MD Exam/Review of Systems Vital Signs Vitals Vital Signs Date Time Temp Pulse Resp B/P Pulse Ox O2 Delivery O2 Flow Rate FiO2 05/05/16 11:55 73 13 100 40 05/05/16 11:30 80/59 Mechanical Ventilator 05/05/16 08:30 97.8 05/02/16 16:20 10.0 Intake and Output 05/04/16 05/04/16 05/05/16 15:00 23:00 07:00 Intake Total 388 ml 579 ml Output Total 2340 ml 210 ml Balance -1952 ml 369 ml Results Result Diagram: 05/05/16 0415 05/05/16 0415 Results 24 hrs Laboratory Tests Test 05/05/16 04:15 Activated Partial Thromboplast Time 51.2 H Anion Gap 7 L Basophils # 0.0 Basophils % 0.4 Blood Urea Nitrogen 10 Calcium Level 8.6 Carbon Dioxide Level 38 H Chloride Level 96 L Creatinine 0.42 L Eosinophils # 0.0 Eosinophils % 0.9 Glucose Level 90 Hematocrit 31.6 L Hemoglobin 10.0 L Lymphocytes # 0.7 L Lymphocytes % 15.1 Mean Corpuscular Hemoglobin 27.6 L Mean Corpuscular Hemoglobin Concent 31.6 L Mean Corpuscular Volume 87.3 Mean Platelet Volume 11.0 H Monocytes # 0.4 Monocytes % 7.8 Neutrophils # 3.4 Neutrophils % 75.6 Nucleated Red Blood Cells # 0.0 Nucleated Red Blood Cells % 0.0 Platelet Count 107 L Potassium Level 3.3 L Red Blood Count 3.62 #L Red Cell Distribution Width 17.2 H Sodium Level 138 White Blood Count 4.5 L Medications Medications Current Medications Ondansetron HCl (Zofran Inj) 4 mg Q6H PRN IV NAUSEA AND/OR VOMITING Last administered on 04/24/16 21:00; Admin Dose 4 MG; Start 04/11/16 at 22:30 Acetaminophen (Tylenol Tab) 650 mg Q6H PRN PO PAIN LEVEL 1-3 OR FEVER; Start at 22:30 Morphine Sulfate (morphine) 2 mg Q4H PRN IV PAIN LEVEL 7-10 Last administered on 05/04/16 03:01; Admin Dose 2 MG; Start 04/11/16 at 22:30 Ascorbic Acid (Vitamin C) 500 mg DAILY GTB Last administered on 05/05/16 09:37 ; Admin Dose 500 MG; Start 04/12/16 at 09:00 Bisacodyl (Dulcolax) 10 mg DAILY PRN PO CONSTIPATION; Start 04/11/16 at 22:30 Chlorhexidine Gluconate (Peridex) 15 ml BID MM Last administered on 05/05/16 09:37; Admin Dose 15 ML; Start 04/12/16 at 09:00 Ferrous Sulfate (Feosol Liquid Cup) 300 mg BID GTB Last administered on 09:37; Admin Dose 300 MG; Start 04/12/16 at 09:00 Acetaminophen/ Hydrocodone Bitart ([place] (5/325)) 1 tab Q4 PRN GTB PAIN LEVEL 6 -10; Start 04/11/16 at 22:30 Lactulose (Enulose) 20 gm DAILY GTB Last administered on 05/05/16 09:37; Admin Dose 20 GM; Start 04/12/16 at 09:00 Quetiapine Fumarate (Seroquel) 25 mg BID@ GTB Last administered on 10:00; Admin Dose 25 MG; Start 04/12/16 at 09:00 Quetiapine Fumarate (Seroquel) 200 mg HS GTB Last administered on 05/01/16 21: 34; Admin Dose 200 MG; Start 04/12/16 at 21:00 Senna (Senokot) 1 tab QHS GTB Last administered on 05/01/16 21:35; Admin Dose 1 TAB; Start 04/12/16 at 21:00 Sodium Biphosphate/ Sodium Phosphate (Fleet Enema Pediatric) 66.6 ml DAILY PRN [place] CONSTIPATION; Start 04/11/16 at 22:30 Thiamine HCl (Vitamin B1) 100 mg DAILY GTB Last administered on 05/05/16 09:37 ; Admin Dose 100 MG; Start 04/12/16 at 09:00 Calcium Carbonate (Tums) 500 mg DAILY GTB Last administered on 05/05/16 09:53 ; Admin Dose 500 MG; Start 04/12/16 at 09:00 Multivitamins/ Minerals (Theragran-M) 1 tab DAILY PO Last administered on 09:37; Admin Dose 1 TAB; Start 04/12/16 at 09:00 Hydralazine HCl (Apresoline) 10 mg Q6H PRN IV SBP >160 Last administered on 00:49; Admin Dose 10 MG; Start 04/12/16 at 12:30 Famotidine (Pepcid) 20 mg Q12 GTB Last administered on 05/05/16 09:37; Admin Dose 20 MG; Start 04/19/16 at 21:00 Lorazepam (Ativan) 1 mg Q4 PRN IV AGITATION/ANXIETY Last administered on 10:00; Admin Dose 1 MG; Start 04/24/16 at 21:00 Clonidine 0.1 mg 0.1 mg Q6H PRN PO ELEVATED BLOOD PRESSURE; Start 04/24/16 at 23 :30 Dextrose/Sodium Chloride 1,000 ml @ 60 mls/hr [id number] IV Last administered on 05/04/16 20:02; Admin Dose 60 MLS/HR; Start 04/26/16 at 11:30 Diltiazem HCl (Cardizem-D5W 125 Mg/125 ml Drip) 125 ml @ 5 mls/hr TITRATE IV Last administered on 04/27/16 22:28; Admin Dose 5 MLS/HR; Start 04/27/16 at 22:00 Metoprolol Tartrate (Lopressor) 5 mg Q4H PRN IV PRN HR>110 Hold SBP<100; Start 04/28/16 at 13:30 Furosemide (Lasix) 40 mg DAILY IV Last administered on 05/01/16 09:33; Admin Dose 40 MG; Start 04/30/16 at 09:00; Status Future Hold Metoprolol Tartrate (Lopressor) 25 mg BID PO Last administered on 04/29/16 21: 29; Admin Dose 25 MG; Start 04/29/16 at 21:00; Status Future Hold Lorazepam (Ativan) 1 mg Q6 GTB Last administered on 05/05/16 12:29; Admin Dose 1 MG; Start 05/02/16 at 00:00 Aspirin (Aspirin) 81 mg DAILY PO Last administered on 05/05/16 09:37; Admin Dose 81 MG; Start 05/02/16 at 14:30 Furosemide 20 mg 20 mg DAILY IV Last administered on 05/05/16 09:38; Admin Dose 20 MG; Start 05/03/16 at 09:00 Cefepime HCl (Maxipime 1gm/50 ml (Pmx)) 50 ml @ 100 mls/hr Q12 IVPB Last administered on 05/05/16 09:50; Admin Dose 100 MLS/HR; Start 05/03/16 at 10:00 Chlordiazepoxide 10 mg 10 mg TID PO Last administered on 05/05/16 14:22; Admin Dose 10 MG; Start 05/04/16 at 09:00 Midazolam HCl 50 ml @ 1 mls/hr TITRATE IV Last administered on 05/05/16 14:22 ; Admin Dose 8 MLS/HR; Start 05/04/16 at 11:00 Vancomycin HCl/ Sodium Chloride (Vancocin/NS) 150 ml @ 75 mls/hr Q12H IVPB Last administered on 05/05/16 05:44; Admin Dose 75 MLS/HR; Start 05/05/16 at 05 :00 KATHERYN LAWTON 15, 2017 14:35
--- NOTE | 2016-05-05 14:42 | PN ---
Date/Time of Note Date/Time of Note DATE: 05/05/16 TIME: 14:40 Assessment/Plan VTE Prophylaxis VTE Prophylaxis Intervention: SCD's Lines/Catheters [facility] PICC Line Central line still needed: Yes Urinary Cath still in place: No Assessment/Plan Chief Complaint/Hosp Course ASSESSMENT AND PLAN: -Bleeding from tracheostomy site, resolving, pending ENT consult. Dr. Cecilia esquivel is aware. -Pancytopenia. Dr Gaona is following in hematology consultation. -Coagulopathy, status post vitamin K, Lovenox is held - NSTEMI, continue aspirin and Lovenox. Dr. Espitia is following patient in cardiology consultation. - Atrial fibrillation with rapid ventricular response. Continue metoprolol. Continue telemetry monitoring. - Bilateral pleural effusions, status post right sided thoracentesis, pending thoracentesis of the left side. - Acute hypoxic respiratory failure. Dr. Anderson is following in pulmonology consultation. Continue ventilatory support and bronchodilators. - Possible healthcare-acquired left lower lung pneumonia versus aspiration. Continue antibiotics per ID. Dr. Rojas is following an infection disease consultation. - E. coli ESBL urinary tract infection, status post treatment. - Sepsis with Ecoli ESBL bacteremia 2 UTI, resolved. - Dysphagia, with G-tube. Status post G-tube removal by patient. Patient passed swallow eval and was started on pured diet. Patient tolerates pured diet well. - History of chronic respiratory failure with tracheostomy. - Benign prostatic hypertrophy. - Schizoaffective disorder. Continue Seroquel and Ativan as needed for agitation. Continue Lovenox for deep venous thrombosis prophylaxis and Pepcid for peptic ulcer disease prophylaxis. Further recommendations based on clinical course. Plan of care discussed with Dr. Colunga. Problems: Subjective 24 Hr Interval Summary Free Text/Dictation Patient is currently on vent support via tracheostomy, sedated on Versed drip, tracheostomy site and bleeding decreased. Exam/Review of Systems Vital Signs Vitals Vital Signs Date Time Temp Pulse Resp B/P Pulse Ox O2 Delivery O2 Flow Rate FiO2 05/05/16 11:55 73 13 100 40 05/05/16 11:30 80/59 Mechanical Ventilator 05/05/16 08:30 97.8 05/02/16 16:20 10.0 Intake and Output 05/04/16 05/04/16 05/05/16 15:00 23:00 07:00 Intake Total 388 ml 579 ml Output Total 2340 ml 210 ml Balance -1952 ml 369 ml Exam GENERAL: A well-developed, cachectic gentleman, sedated HEENT: Head is atraumatic, normocephalic. LYDIA. NECK: Supple, with tracheostomy at the base of the neck. LUNGS: Diminished at the bases. Patient has scattered severe rhonchi bilaterally. CARDIOVASCULAR: Normal S1, S2. No murmurs, gallops, clicks, rubs noted. ABDOMEN: Flat, soft, nondistended, nontender. Bowel sounds present. Patient has a G-tube with intact stoma. EXTREMITIES: Contractured. There is no edema, clubbing, cyanosis. Pulses equal bilaterally, 2+. SKIN: There is no rash, petechiae noted. NEUROLOGIC: Sedated Results Result Diagram: 05/05/16 0415 05/05/16 0415 Results 24 hrs Laboratory Tests Test 05/05/16 04:15 Activated Partial Thromboplast Time 51.2 H Anion Gap 7 L Basophils # 0.0 Basophils % 0.4 Blood Urea Nitrogen 10 Calcium Level 8.6 Carbon Dioxide Level 38 H Chloride Level 96 L Creatinine 0.42 L Eosinophils # 0.0 Eosinophils % 0.9 Glucose Level 90 Hematocrit 31.6 L Hemoglobin 10.0 L Lymphocytes # 0.7 L Lymphocytes % 15.1 Mean Corpuscular Hemoglobin 27.6 L Mean Corpuscular Hemoglobin Concent 31.6 L Mean Corpuscular Volume 87.3 Mean Platelet Volume 11.0 H Monocytes # 0.4 Monocytes % 7.8 Neutrophils # 3.4 Neutrophils % 75.6 Nucleated Red Blood Cells # 0.0 Nucleated Red Blood Cells % 0.0 Platelet Count 107 L Potassium Level 3.3 L Red Blood Count 3.62 #L Red Cell Distribution Width 17.2 H Sodium Level 138 White Blood Count 4.5 L Medications Medications Current Medications Ondansetron HCl (Zofran Inj) 4 mg Q6H PRN IV NAUSEA AND/OR VOMITING Last administered on 04/24/16 21:00; Admin Dose 4 MG; Start 04/11/16 at 22:30 Acetaminophen (Tylenol Tab) 650 mg Q6H PRN PO PAIN LEVEL 1-3 OR FEVER; Start at 22:30 Morphine Sulfate (morphine) 2 mg Q4H PRN IV PAIN LEVEL 7-10 Last administered on 05/04/16 03:01; Admin Dose 2 MG; Start 04/11/16 at 22:30 Ascorbic Acid (Vitamin C) 500 mg DAILY GTB Last administered on 05/05/16 09:37 ; Admin Dose 500 MG; Start 04/12/16 at 09:00 Bisacodyl (Dulcolax) 10 mg DAILY PRN PO CONSTIPATION; Start 04/11/16 at 22:30 Chlorhexidine Gluconate (Peridex) 15 ml BID MM Last administered on 05/05/16 09:37; Admin Dose 15 ML; Start 04/12/16 at 09:00 Ferrous Sulfate (Feosol Liquid Cup) 300 mg BID GTB Last administered on 09:37; Admin Dose 300 MG; Start 04/12/16 at 09:00 Acetaminophen/ Hydrocodone Bitart ([place] (5/325)) 1 tab Q4 PRN GTB PAIN LEVEL 6 -10; Start 04/11/16 at 22:30 Lactulose (Enulose) 20 gm DAILY GTB Last administered on 05/05/16 09:37; Admin Dose 20 GM; Start 04/12/16 at 09:00 Quetiapine Fumarate (Seroquel) 25 mg BID@ GTB Last administered on 10:00; Admin Dose 25 MG; Start 04/12/16 at 09:00 Quetiapine Fumarate (Seroquel) 200 mg HS GTB Last administered on 05/01/16 21: 34; Admin Dose 200 MG; Start 04/12/16 at 21:00 Senna (Senokot) 1 tab QHS GTB Last administered on 05/01/16 21:35; Admin Dose 1 TAB; Start 04/12/16 at 21:00 Sodium Biphosphate/ Sodium Phosphate (Fleet Enema Pediatric) 66.6 ml DAILY PRN [place] CONSTIPATION; Start 04/11/16 at 22:30 Thiamine HCl (Vitamin B1) 100 mg DAILY GTB Last administered on 05/05/16 09:37 ; Admin Dose 100 MG; Start 04/12/16 at 09:00 Calcium Carbonate (Tums) 500 mg DAILY GTB Last administered on 05/05/16 09:53 ; Admin Dose 500 MG; Start 04/12/16 at 09:00 Multivitamins/ Minerals (Theragran-M) 1 tab DAILY PO Last administered on 09:37; Admin Dose 1 TAB; Start 04/12/16 at 09:00 Hydralazine HCl (Apresoline) 10 mg Q6H PRN IV SBP >160 Last administered on 00:49; Admin Dose 10 MG; Start 04/12/16 at 12:30 Famotidine (Pepcid) 20 mg Q12 GTB Last administered on 05/05/16 09:37; Admin Dose 20 MG; Start 04/19/16 at 21:00 Lorazepam (Ativan) 1 mg Q4 PRN IV AGITATION/ANXIETY Last administered on 10:00; Admin Dose 1 MG; Start 04/24/16 at 21:00 Clonidine 0.1 mg 0.1 mg Q6H PRN PO ELEVATED BLOOD PRESSURE; Start 04/24/16 at 23 :30 Dextrose/Sodium Chloride 1,000 ml @ 60 mls/hr [id number] IV Last administered on 05/04/16 20:02; Admin Dose 60 MLS/HR; Start 04/26/16 at 11:30 Diltiazem HCl (Cardizem-D5W 125 Mg/125 ml Drip) 125 ml @ 5 mls/hr TITRATE IV Last administered on 04/27/16 22:28; Admin Dose 5 MLS/HR; Start 04/27/16 at 22:00 Metoprolol Tartrate (Lopressor) 5 mg Q4H PRN IV PRN HR>110 Hold SBP<100; Start 04/28/16 at 13:30 Furosemide (Lasix) 40 mg DAILY IV Last administered on 05/01/16 09:33; Admin Dose 40 MG; Start 04/30/16 at 09:00; Status Future Hold Metoprolol Tartrate (Lopressor) 25 mg BID PO Last administered on 04/29/16 21: 29; Admin Dose 25 MG; Start 04/29/16 at 21:00; Status Future Hold Lorazepam (Ativan) 1 mg Q6 GTB Last administered on 05/05/16 12:29; Admin Dose 1 MG; Start 05/02/16 at 00:00 Aspirin (Aspirin) 81 mg DAILY PO Last administered on 05/05/16 09:37; Admin Dose 81 MG; Start 05/02/16 at 14:30 Furosemide 20 mg 20 mg DAILY IV Last administered on 05/05/16 09:38; Admin Dose 20 MG; Start 05/03/16 at 09:00 Cefepime HCl (Maxipime 1gm/50 ml (Pmx)) 50 ml @ 100 mls/hr Q12 IVPB Last administered on 05/05/16 09:50; Admin Dose 100 MLS/HR; Start 05/03/16 at 10:00 Chlordiazepoxide 10 mg 10 mg TID PO Last administered on 05/05/16 14:22; Admin Dose 10 MG; Start 05/04/16 at 09:00 Midazolam HCl 50 ml @ 1 mls/hr TITRATE IV Last administered on 05/05/16 14:22 ; Admin Dose 8 MLS/HR; Start 05/04/16 at 11:00 Vancomycin HCl/ Sodium Chloride (Vancocin/NS) 150 ml @ 75 mls/hr Q12H IVPB Last administered on 05/05/16 05:44; Admin Dose 75 MLS/HR; Start 05/05/16 at 05 :00 SHELBY BUNCH May 05, 2016 14:42
--- NOTE | 2016-05-05 15:30 | RADRPT ---
PROCEDURE: XR Chest. CLINICAL INDICATION: Shortness of breath. TECHNIQUE: Single frontal view. COMPARISON: 05/04/2016. FINDINGS: The tracheostomy tube and nasogastric tube remain in satisfactory position. The left arm PICC line tip is in the cavoatrial junction region. Pulmonary edema is unchanged. The heart is mildly enlarged. There are moderate bilateral pleural effusions. There is no pneumothorax. IMPRESSION: 1. No change from 05/04/2016. RPTAT: QQ .Tyler Paula MD, Date Time Electronically viewed and signed by .Tyler Paula MD, MD on 05/05/2016 15:30 .R/
--- NOTE | 2016-05-05 19:06 | RADRPT ---
Vent Rate: 108 bpm RR Interval: 0 msec ME Interval: 152 msec QRS Duration: 90 msec QT Interval: 334 msec QTC Interval: 447 msec P-R-T Pollock: 40 - 74 - 83 degrees Sinus tachycardia Otherwise normal ECG Electronically Signed By: Jayden Carrion [id number]
[2016-05-05] MEDS: QUETIAPINE 100 MG TAB GTB SCH (21:20)
[2016-05-05] MEDS: SENNA TAB GTB SCH (21:20)
[2016-05-06] VITALS (39 sets, daily range): BP systolic 85–191; BP diastolic 63–107; PULSE 45–80; RESP 11–23
[2016-05-06] MEDS: IPRATROPIUM (HFA) 12.9 GM INHALER INH SCH ×4 (01:10→19:52)
[2016-05-06] MEDS: ALBUTEROL HFA 8 GM INHALER INH SCH ×4 (01:10→19:52)
[2016-05-06 05:17] LABS: ADD SCAN DIFF NO
[2016-05-06 05:25] LABS: ABNORMAL IP MESSAGE 1; BASOPHILS % 0.3 % (0.0-2.0); EOSINOPHILS # 0.1 10^3/ul (0.0-0.5); EOSINOPHILS % 1.7 % (0.0-7.0); HEMATOCRIT 28.5 % (42.0-52.0); HEMOGLOBIN 8.9 g/dl (14.0-18.0); LYMPHOCYTES # 0.8 10^3/ul (0.8-2.9); LYMPHOCYTES % 23.5 % (15.0-51.0); MEAN CORPUSCULAR HEMOGLOBIN 27.6 pg (29.0-33.0); MEAN CORPUSCULAR HGB CONC 31.2 g/dl (32.0-37.0); MEAN CORPUSCULAR VOLUME 88.5 fl (82.0-101.0); MEAN PLATELET VOLUME 10.8 fl (7.4-10.4); MONOCYTE # 0.3 10^3/ul (0.3-0.9); MONOCYTES % 8.9 % (0.0-11.0); NEUTROPHIL # 2.3 10^3/ul (1.6-7.5); NEUTROPHILS % 65.3 % (39.0-77.0); PLATELET COUNT 89 10^3/UL (140-415); RED BLOOD COUNT 3.22 10^6/ul (4.70-6.10); RED CELL DISTRIBUTION WIDTH 17.7 % (11.5-14.5); WHITE BLOOD COUNT 3.6 10^3/ul (4.8-10.8)
[2016-05-06 05:56] LABS: POTASSIUM 3.6 mmol/L (3.5-5.1)
[2016-05-06 05:59] LABS: CREATININE 0.48 mg/dl (0.61-1.24)
[2016-05-06 06:00] LABS: CALCIUM 8.3 mg/dl (8.4-10.2)
[2016-05-06] MEDS: LORAZEPAM 1 MG TAB GTB SCH ×5 (06:00→22:28)
[2016-05-06] MEDS: VANCOMYCIN 750 MG in SOD CHLORIDE 0.9% 150 ML IVPB SCH (06:36)
--- NOTE | 2016-05-06 08:32 | CONS ---
Date/Time of Note Date/Time of Note DATE: 05/06/16 TIME: 08:29 Assessment/Plan Assessment/Plan Additional Assessment/Plan Ventilator settings; AC of 12, tidal volume 450, PEEP of 5, 40% FiO2. Chest x-ray was reviewed from yesterday afternoon which is showing improvement in bibasilar pneumonia. Next Assessment and recommendations; 1. Patient admitted for a left-sided pneumonia with interval improvement but then developed bilateral pneumonia possibly from aspiration. 2. History of chronic respiratory failure patient was maintained on tracheostomy but then decompensated with hypercapnic respiratory failure now requiring invasive mechanical ventilation. 3. History of alcoholic encephalopathy. 4. History of hypertension. Continue supportive care. Patient will need to have a G-tube placed. Overall prognosis remains guarded. Consultation Date/Type/Reason Admit Date/Time Apr 11, 2016 at 22:13 Initial Consult Date 04/12/16 Type of Consultation: Pulmonary/critical care Referring Provider: ANNETTA AGUILAR MD 24 HR Interval Summary Free Text/Dictation Patient condition remains stable. Remains awake. Remains ventilator dependent. Patient has remained hemodynamically stable. No untoward events reported. General exam; elderly male, on ventilator via tracheostomy currently in no distress. Exam/Review of Systems Vital Signs Vitals Vital Signs Date Time Temp Pulse Resp B/P Pulse Ox O2 Delivery O2 Flow Rate FiO2 05/06/16 06:00 54 12 144/86 100 05/06/16 05:26 35 05/06/16 04:00 97.3 05/05/16 19:00 Mechanical Ventilator 05/02/16 16:20 10.0 Intake and Output 05/05/16 05/05/16 05/06/16 15:00 23:00 07:00 Intake Total 462 ml 1503 ml 220 ml Output Total 500 ml 465 ml 625 ml Balance -38 ml 1038 ml -405 ml Exam HEENT exam; supple neck, positive JVD. No lymphadenopathy. Tracheostomy in place with clean insertion site. Patient upper jaw is edentulous. Pupils are midsize reactive to light. Next Chest examination; diminished breath on lung bases, upper lobes are clear. S1- S2 audible, no murmurs. Regular rhythm. Abdomen examination; soft, no organomegaly bowel sounds audible. Extremity examination; no peripheral edema. [employer] examination patient is stable paraplegia. Results Result Diagram: 05/06/16 0445 05/06/16 0445 Results 24 hrs Laboratory Tests Test 05/06/16 04:45 Anion Gap 7 L Basophils # 0.0 Basophils % 0.3 Blood Urea Nitrogen 10 Calcium Level 8.3 L Carbon Dioxide Level 39 H Chloride Level 98 Creatinine 0.48 L Eosinophils # 0.1 Eosinophils % 1.7 Glucose Level 80 Hematocrit 28.5 L Hemoglobin 8.9 L Lymphocytes # 0.8 Lymphocytes % 23.5 Mean Corpuscular Hemoglobin 27.6 L Mean Corpuscular Hemoglobin Concent 31.2 L Mean Corpuscular Volume 88.5 Mean Platelet Volume 10.8 H Monocytes # 0.3 Monocytes % 8.9 Neutrophils # 2.3 Neutrophils % 65.3 Nucleated Red Blood Cells # 0.0 Nucleated Red Blood Cells % 0.0 Platelet Count 89 L Potassium Level 3.6 Red Blood Count 3.22 L Red Cell Distribution Width 17.7 H Sodium Level 140 Vancomycin Level Trough 17.4 White Blood Count 3.6 L Medications Medications Current Medications Ondansetron HCl (Zofran Inj) 4 mg Q6H PRN IV NAUSEA AND/OR VOMITING Last administered on 04/24/16 21:00; Admin Dose 4 MG; Start 04/11/16 at 22:30 Acetaminophen (Tylenol Tab) 650 mg Q6H PRN PO PAIN LEVEL 1-3 OR FEVER; Start at 22:30 Morphine Sulfate (morphine) 2 mg Q4H PRN IV PAIN LEVEL 7-10 Last administered on 05/04/16 03:01; Admin Dose 2 MG; Start 04/11/16 at 22:30 Ascorbic Acid (Vitamin C) 500 mg DAILY GTB Last administered on 05/05/16 09:37 ; Admin Dose 500 MG; Start 04/12/16 at 09:00 Bisacodyl (Dulcolax) 10 mg DAILY PRN PO CONSTIPATION; Start 04/11/16 at 22:30 Chlorhexidine Gluconate (Peridex) 15 ml BID MM Last administered on 05/05/16 21:20; Admin Dose 15 ML; Start 04/12/16 at 09:00 Ferrous Sulfate (Feosol Liquid Cup) 300 mg BID GTB Last administered on 21:20; Admin Dose 300 MG; Start 04/12/16 at 09:00 Acetaminophen/ Hydrocodone Bitart ([place] (5/325)) 1 tab Q4 PRN GTB PAIN LEVEL 6 -10; Start 04/11/16 at 22:30 Lactulose (Enulose) 20 gm DAILY GTB Last administered on 05/05/16 09:37; Admin Dose 20 GM; Start 04/12/16 at 09:00 Quetiapine Fumarate (Seroquel) 25 mg BID@ GTB Last administered on 10:00; Admin Dose 25 MG; Start 04/12/16 at 09:00 Quetiapine Fumarate (Seroquel) 200 mg HS GTB Last administered on 05/05/16 21: 20; Admin Dose 200 MG; Start 04/12/16 at 21:00 Senna (Senokot) 1 tab QHS GTB Last administered on 05/05/16 21:20; Admin Dose 1 TAB; Start 04/12/16 at 21:00 Sodium Biphosphate/ Sodium Phosphate (Fleet Enema Pediatric) 66.6 ml DAILY PRN [place] CONSTIPATION; Start 04/11/16 at 22:30 Thiamine HCl (Vitamin B1) 100 mg DAILY GTB Last administered on 05/05/16 09:37 ; Admin Dose 100 MG; Start 04/12/16 at 09:00 Calcium Carbonate (Tums) 500 mg DAILY GTB Last administered on 05/05/16 09:53 ; Admin Dose 500 MG; Start 04/12/16 at 09:00 Multivitamins/ Minerals (Theragran-M) 1 tab DAILY PO Last administered on 09:37; Admin Dose 1 TAB; Start 04/12/16 at 09:00 Hydralazine HCl (Apresoline) 10 mg Q6H PRN IV SBP >160 Last administered on 00:49; Admin Dose 10 MG; Start 04/12/16 at 12:30 Famotidine (Pepcid) 20 mg Q12 GTB Last administered on 05/05/16 21:21; Admin Dose 20 MG; Start 04/19/16 at 21:00 Lorazepam (Ativan) 1 mg Q4 PRN IV AGITATION/ANXIETY Last administered on 10:00; Admin Dose 1 MG; Start 04/24/16 at 21:00 Clonidine 0.1 mg 0.1 mg Q6H PRN PO ELEVATED BLOOD PRESSURE; Start 04/24/16 at 23 :30 Dextrose/Sodium Chloride 1,000 ml @ 60 mls/hr [id number] IV Last administered on 05/05/16 17:00; Admin Dose 60 MLS/HR; Start 04/26/16 at 11:30 Diltiazem HCl (Cardizem-D5W 125 Mg/125 ml Drip) 125 ml @ 5 mls/hr TITRATE IV Last administered on 04/27/16 22:28; Admin Dose 5 MLS/HR; Start 04/27/16 at 22:00 Metoprolol Tartrate (Lopressor) 5 mg Q4H PRN IV PRN HR>110 Hold SBP<100; Start 04/28/16 at 13:30 Furosemide (Lasix) 40 mg DAILY IV Last administered on 05/01/16 09:33; Admin Dose 40 MG; Start 04/30/16 at 09:00; Status Future Hold Metoprolol Tartrate (Lopressor) 25 mg BID PO Last administered on 04/29/16 21: 29; Admin Dose 25 MG; Start 04/29/16 at 21:00; Status Future Hold Lorazepam (Ativan) 1 mg Q6 GTB Last administered on 05/05/16 18:55; Admin Dose 1 MG; Start 05/02/16 at 00:00 Aspirin (Aspirin) 81 mg DAILY PO Last administered on 05/05/16 09:37; Admin Dose 81 MG; Start 05/02/16 at 14:30 Furosemide 20 mg 20 mg DAILY IV Last administered on 05/05/16 09:38; Admin Dose 20 MG; Start 05/03/16 at 09:00 Cefepime HCl (Maxipime 1gm/50 ml (Pmx)) 50 ml @ 100 mls/hr Q12 IVPB Last administered on 05/05/16 21:18; Admin Dose 100 MLS/HR; Start 05/03/16 at 10:00 Chlordiazepoxide 10 mg 10 mg TID PO Last administered on 05/05/16 21:21; Admin Dose 10 MG; Start 05/04/16 at 09:00 Midazolam HCl 50 ml @ 1 mls/hr TITRATE IV Last administered on 05/05/16 14:22 ; Admin Dose 8 MLS/HR; Start 05/04/16 at 11:00 Vancomycin HCl (Vancocin) 100 ml @ 100 mls/hr Q12H IVPB ; Start 05/06/16 at 20: 00 KATHERYN LAWTON 16, 2017 08:32
[2016-05-06] MEDS: FERROUS SULFATE 60 MG/ML 5ML CUP GTB SCH ×2 (09:00→20:49)
[2016-05-06] MEDS: QUETIAPINE 25 MG TAB GTB SCH ×2 (09:00→17:00)
[2016-05-06] MEDS: CHLORDIAZEPOXIDE 5 MG CAP PO SCH ×3 (09:00→20:49)
[2016-05-06] MEDS: FAMOTIDINE 20 MG TAB GTB SCH ×2 (09:00→20:49)
[2016-05-06] MEDS: ASPIRIN 81 MG TAB PO SCH (09:00)
[2016-05-06] MEDS: THIAMINE 100 MG TAB GTB SCH (09:00)
[2016-05-06] MEDS: MULTIVITAMINS/MINERALS TAB PO SCH (09:00)
[2016-05-06] MEDS: LACTULOSE 30ML CUP GTB SCH (09:00)
[2016-05-06] MEDS: ASCORBIC ACID 500 MG TAB GTB SCH (09:00)
[2016-05-06] MEDS: CALCIUM CARBONATE 500 MG CHEW TAB GTB SCH (09:00)
[2016-05-06] MEDS: CHLORHEXIDINE GLUCONATE 15 ML UD CUP MM SCH ×2 (09:14→20:49)
[2016-05-06] MEDS: CEFEPIME 1GM/50 ML (PMX) 50 ML IVPB SCH ×2 (09:14→21:03)
[2016-05-06] MEDS: FUROSEMIDE 20 MG INJ IV SCH ×2 (09:14→21:03)
--- NOTE | 2016-05-06 09:34 | PN ---
Date/Time of Note Date/Time of Note DATE: 05/06/16 TIME: 09:12 Assessment/Plan VTE Prophylaxis VTE Prophylaxis Intervention: LMWH Lines/Catheters IV Catheter Type (from [facility]): PICC Line Central line still needed: Yes Urinary Cath still in place: No Assessment/Plan Assessment/Plan -Bleeding from tracheostomy site, resolving, pending ENT consult. Dr. Cecilia esquivel is aware. -Pancytopenia. Dr Gaona is following in hematology consultation. -Coagulopathy, status post vitamin K, Lovenox is held - NSTEMI, continue aspirin and Lovenox. - per Dr. Espitia is in cardiology consultation. - Atrial fibrillation with rapid ventricular response. - per Dr. Espitia in cardiology consultation. Continue metoprolol. Continue telemetry monitoring. - Bilateral pleural effusions, status post right sided thoracentesis, pending thoracentesis of the left side. - Acute hypoxic respiratory failure. on Vent now - per Dr. Anderson in pulmonology consultation. - Continue ventilatory support and bronchodilators. - Possible healthcare-acquired left lower lung pneumonia versus aspiration. - Continue antibiotics per ID. - Dr. Rojas is following an infection disease consultation. - E. coli ESBL urinary tract infection. Continue Ertapenem. - Sepsis with Ecoli ESBL bacteremia 2 UTI. - Normocytic anemia. - Dr Gaona is following in hematology consultation. - monitor H/H, bleeding - Dysphagia, with G-tube. - aspiration precautions - History of chronic respiratory failure with tracheostomy. - Benign prostatic hypertrophy. - Schizoaffective disorder. Continue Seroquel and Ativan as needed for agitation. - Lovenox for deep venous thrombosis prophylaxis - Pepcid for peptic ulcer disease prophylaxis. Further recommendations based on clinical course. Total critical care time spent 35 mins. Plan of care discussed with Dr. Colunga. Subjective 24 Hr Interval Summary Free Text/Dictation nad, remains in ICU, on vent management, afebrile, no NGT a present, dw staff. Constitutional: requiring O2 Exam/Review of Systems Vital Signs Vitals Vital Signs Date Time Temp Pulse Resp B/P Pulse Ox O2 Delivery O2 Flow Rate FiO2 05/06/16 08:00 46 05/06/16 08:00 98.2 11 145/88 100 Mechanical Ventilator 05/06/16 05:26 35 05/02/16 16:20 10.0 Intake and Output 3/15/17 3/15/17 3/16/17 15:00 23:00 07:00 Intake Total 462 ml 1503 ml 220 ml Output Total 500 ml 465 ml 625 ml Balance -38 ml 1038 ml -405 ml Exam Constitutional: other (REPONSIVE TO TOUCH) ENMT: nl external ears & nose Neck: non-tender Cardiovascular: nl pulses Gastrointestinal: non-tender, soft Musculoskeletal: muscle weakness, other (BUE, BLE contractures) Neurological: lethargic Skin: other Lymph: nontender Results Result Diagram: 05/06/165 05/06/16444 Results 24 hrs Laboratory Tests Test 05/06/16 04:45 Anion Gap 7 L Basophils # 0.0 Basophils % 0.3 Blood Urea Nitrogen 10 Calcium Level 8.3 L Carbon Dioxide Level 39 H Chloride Level 98 Creatinine 0.48 L Eosinophils # 0.1 Eosinophils % 1.7 Glucose Level 80 Hematocrit 28.5 L Hemoglobin 8.9 L Lymphocytes # 0.8 Lymphocytes % 23.5 Mean Corpuscular Hemoglobin 27.6 L Mean Corpuscular Hemoglobin Concent 31.2 L Mean Corpuscular Volume 88.5 Mean Platelet Volume 10.8 H Monocytes # 0.3 Monocytes % 8.9 Neutrophils # 2.3 Neutrophils % 65.3 Nucleated Red Blood Cells # 0.0 Nucleated Red Blood Cells % 0.0 Platelet Count 89 L Potassium Level 3.6 Red Blood Count 3.22 L Red Cell Distribution Width 17.7 H Sodium Level 140 Vancomycin Level Trough 17.4 White Blood Count 3.6 L Medications Medications Current Medications Ondansetron HCl (Zofran Inj) 4 mg Q6H PRN IV NAUSEA AND/OR VOMITING Last administered on 04/24/16 21:00; Admin Dose 4 MG; Start 04/11/16 at 22:30 Acetaminophen (Tylenol Tab) 650 mg Q6H PRN PO PAIN LEVEL 1-3 OR FEVER; Start at 22:30 Morphine Sulfate (morphine) 2 mg Q4H PRN IV PAIN LEVEL 7-10 Last administered on 05/04/16 03:01; Admin Dose 2 MG; Start 04/11/16 at 22:30 Ascorbic Acid (Vitamin C) 500 mg DAILY GTB Last administered on 05/05/16 09:37 ; Admin Dose 500 MG; Start 04/12/16 at 09:00 Bisacodyl (Dulcolax) 10 mg DAILY PRN PO CONSTIPATION; Start 04/11/16 at 22:30 Chlorhexidine Gluconate (Peridex) 15 ml BID MM Last administered on 05/05/16 21:20; Admin Dose 15 ML; Start 04/12/16 at 09:00 Ferrous Sulfate (Feosol Liquid Cup) 300 mg BID GTB Last administered on 21:20; Admin Dose 300 MG; Start 04/12/16 at 09:00 Acetaminophen/ Hydrocodone Bitart ([place] (5/325)) 1 tab Q4 PRN GTB PAIN LEVEL 6 -10; Start 04/11/16 at 22:30 Lactulose (Enulose) 20 gm DAILY GTB Last administered on 05/05/16 09:37; Admin Dose 20 GM; Start 04/12/16 at 09:00 Quetiapine Fumarate (Seroquel) 25 mg BID@ GTB Last administered on 10:00; Admin Dose 25 MG; Start 04/12/16 at 09:00 Quetiapine Fumarate (Seroquel) 200 mg HS GTB Last administered on 05/05/16 21: 20; Admin Dose 200 MG; Start 04/12/16 at 21:00 Senna (Senokot) 1 tab QHS GTB Last administered on 05/05/16 21:20; Admin Dose 1 TAB; Start 04/12/16 at 21:00 Sodium Biphosphate/ Sodium Phosphate (Fleet Enema Pediatric) 66.6 ml DAILY PRN [place] CONSTIPATION; Start 04/11/16 at 22:30 Thiamine HCl (Vitamin B1) 100 mg DAILY GTB Last administered on 05/05/16 09:37 ; Admin Dose 100 MG; Start 04/12/16 at 09:00 Calcium Carbonate (Tums) 500 mg DAILY GTB Last administered on 05/05/16 09:53 ; Admin Dose 500 MG; Start 04/12/16 at 09:00 Multivitamins/ Minerals (Theragran-M) 1 tab DAILY PO Last administered on 09:37; Admin Dose 1 TAB; Start 04/12/16 at 09:00 Hydralazine HCl (Apresoline) 10 mg Q6H PRN IV SBP >160 Last administered on 00:49; Admin Dose 10 MG; Start 04/12/16 at 12:30 Famotidine (Pepcid) 20 mg Q12 GTB Last administered on 05/05/16 21:21; Admin Dose 20 MG; Start 04/19/16 at 21:00 Lorazepam (Ativan) 1 mg Q4 PRN IV AGITATION/ANXIETY Last administered on 10:00; Admin Dose 1 MG; Start 04/24/16 at 21:00 Clonidine 0.1 mg 0.1 mg Q6H PRN PO ELEVATED BLOOD PRESSURE; Start 04/24/16 at 23 :30 Dextrose/Sodium Chloride 1,000 ml @ 60 mls/hr [id number] IV Last administered on 05/05/16 17:00; Admin Dose 60 MLS/HR; Start 04/26/16 at 11:30 Diltiazem HCl (Cardizem-D5W 125 Mg/125 ml Drip) 125 ml @ 5 mls/hr TITRATE IV Last administered on 04/27/16 22:28; Admin Dose 5 MLS/HR; Start 04/27/16 at 22:00 Metoprolol Tartrate (Lopressor) 5 mg Q4H PRN IV PRN HR>110 Hold SBP<100; Start 04/28/16 at 13:30 Furosemide (Lasix) 40 mg DAILY IV Last administered on 05/01/16 09:33; Admin Dose 40 MG; Start 04/30/16 at 09:00; Status Future Hold Metoprolol Tartrate (Lopressor) 25 mg BID PO Last administered on 04/29/16 21: 29; Admin Dose 25 MG; Start 04/29/16 at 21:00; Status Future Hold Lorazepam (Ativan) 1 mg Q6 GTB Last administered on 05/05/16 18:55; Admin Dose 1 MG; Start 05/02/16 at 00:00 Aspirin (Aspirin) 81 mg DAILY PO Last administered on 05/05/16 09:37; Admin Dose 81 MG; Start 05/02/16 at 14:30 Furosemide 20 mg 20 mg DAILY IV Last administered on 05/05/16 09:38; Admin Dose 20 MG; Start 05/03/16 at 09:00 Cefepime HCl (Maxipime 1gm/50 ml (Pmx)) 50 ml @ 100 mls/hr Q12 IVPB Last administered on 05/05/16 21:18; Admin Dose 100 MLS/HR; Start 05/03/16 at 10:00 Chlordiazepoxide 10 mg 10 mg TID PO Last administered on 05/05/16 21:21; Admin Dose 10 MG; Start 05/04/16 at 09:00 Midazolam HCl 50 ml @ 1 mls/hr TITRATE IV Last administered on 05/05/16 14:22 ; Admin Dose 8 MLS/HR; Start 05/04/16 at 11:00 Vancomycin HCl (Vancocin) 100 ml @ 100 mls/hr Q12H IVPB ; Start 05/06/16 at 20: 00 BRENT KENDRICK May 06, 2016 09:22
--- NOTE | 2016-05-06 09:39 | RADRPT ---
PROCEDURE: XR Chest. CLINICAL INDICATION: Shortness of breath. TECHNIQUE: Single frontal view. COMPARISON: 05/05/2016. FINDINGS: The tracheostomy tube and left arm PICC line remain in satisfactory position. The nasogastric tube has been removed. Pulmonary edema is slightly improved. The lungs are otherwise clear. The heart is enlarged. There are moderate bilateral pleural effusions, unchanged. There is no pneumothorax. IMPRESSION: 1. Slightly improved pulmonary edema. 2. Nasogastric tube removed. 3. No other change from 05/05/2016. RPTAT: QQ .Tyler Paula MD, Date Time Electronically viewed and signed by .Tyler Paula MD, MD on 05/06/2016 09:39 .R/
--- NOTE | 2016-05-06 11:13 | CONS ---
Date/Time of Note Date/Time of Note DATE: 05/06/16 TIME: 11:09 Assessment/Plan Assessment/Plan Chief Complaint/Hosp Course IMPRESSION: 1. Wide complex tachycardia, cardiac arrhythmia. Rule out nonsustained ventricular tachycardia.-likely c/w abberant AF-no recurrence 2. Abnormal electrocardiogram, assess for acute coronary syndrome. 3. Congestive heart failure by chest x-ray, diastolic by most recent echo acute on chronic. 4. Hypertension with current borderline HOtn s/p IVP hydralazine 5. Respiratory failure, chronic, status post tracheostomy with desat now transferred to ICU 6. Dysphagia, status post G-tube. 7. Psychiatric disorder. 8. Urinary tract infection. 9. Hypokalemia-improved 10. Anemia. 11. Leukopenia. 12.Nstemi-no current chest pain/decreasing enzymes 14. Bradycardia-ongoing stable Recc: -Tele -Continue to hold BB given prior bradycardia -Continue asa medical therapy for nstemi with currently decreasing cardiac enzymes -Trend cardiac enzymes which are downtrending -Continue lasix diuresis and consider increase dose to improve diuresis -[facility] discussed with patient but patient does not have clear understanding and would like to wait -LOvenox held due to trach site bleeding Problems: Consultation Date/Type/Reason Admit Date/Time Apr 11, 2016 at 22:13 Initial Consult Date 04/21/16 Type of Consultation: Cardiology Reason for Consultation Review of Systems: CONSTITUTIONAL: No fevers, chills. PULMONARY: trached CARDIOVASCULAR: No chest pain/palpitations GASTROINTESTINAL: No nausea/vomiting. GENITOURINARY: No hematuria/dysuria. MUSCULOSKELETAL: No myagias/arthalgias. PSYCHIATRIC: The patient denies depression. NEUROLOGIC: lethargic Referring Provider: ANNETTA AGUILAR MD Exam/Review of Systems Vital Signs Vitals Vital Signs Date Time Temp Pulse Resp B/P Pulse Ox O2 Delivery O2 Flow Rate FiO2 05/06/16 10:00 49 12 133/83 100 Mechanical Ventilator 05/06/16 09:20 35 05/06/16 08:00 98.2 05/02/16 16:20 10.0 Intake and Output 05/05/16 05/05/16 05/06/16 15:00 23:00 07:00 Intake Total 462 ml 1503 ml 220 ml Output Total 500 ml 465 ml 625 ml Balance -38 ml 1038 ml -405 ml Exam Review of Systems: CONSTITUTIONAL: No fevers, chills. PULMONARY: trached CARDIOVASCULAR: No chest pain/palpitations GASTROINTESTINAL: No nausea/vomiting. GENITOURINARY: No hematuria/dysuria. MUSCULOSKELETAL: No myagias/arthalgias. PSYCHIATRIC: The patient denies depression. NEUROLOGIC: lethargic Constitutional: other (sleeping) Psych: no complaints Head: normocephalic ENMT: mucosa pink and moist Neck: jvd (9 cm water), supple Respiratory: diminished breath sounds (at bases/B) Cardiovascular: regular rate and rhythm Gastrointestinal: non-tender, soft Musculoskeletal: muscle tone (normal) Extremities: edema (trace/contracted) Neurological: other (No focal deficits) Results Result Diagram: 05/06/1644405/06/16444 Results 24 hrs Laboratory Tests Test 05/06/16 04:45 Anion Gap 7 L Basophils # 0.0 Basophils % 0.3 Blood Urea Nitrogen 10 Calcium Level 8.3 L Carbon Dioxide Level 39 H Chloride Level 98 Creatinine 0.48 L Eosinophils # 0.1 Eosinophils % 1.7 Glucose Level 80 Hematocrit 28.5 L Hemoglobin 8.9 L Lymphocytes # 0.8 Lymphocytes % 23.5 Mean Corpuscular Hemoglobin 27.6 L Mean Corpuscular Hemoglobin Concent 31.2 L Mean Corpuscular Volume 88.5 Mean Platelet Volume 10.8 H Monocytes # 0.3 Monocytes % 8.9 Neutrophils # 2.3 Neutrophils % 65.3 Nucleated Red Blood Cells # 0.0 Nucleated Red Blood Cells % 0.0 Platelet Count 89 L Potassium Level 3.6 Red Blood Count 3.22 L Red Cell Distribution Width 17.7 H Sodium Level 140 Vancomycin Level Trough 17.4 White Blood Count 3.6 L Medications Medications Current Medications Ondansetron HCl (Zofran Inj) 4 mg Q6H PRN IV NAUSEA AND/OR VOMITING Last administered on 04/24/16 21:00; Admin Dose 4 MG; Start 04/11/16 at 22:30 Acetaminophen (Tylenol Tab) 650 mg Q6H PRN PO PAIN LEVEL 1-3 OR FEVER; Start at 22:30 Morphine Sulfate (morphine) 2 mg Q4H PRN IV PAIN LEVEL 7-10 Last administered on 05/04/16 03:01; Admin Dose 2 MG; Start 04/11/16 at 22:30 Ascorbic Acid (Vitamin C) 500 mg DAILY GTB Last administered on 05/05/16 09:37 ; Admin Dose 500 MG; Start 04/12/16 at 09:00 Bisacodyl (Dulcolax) 10 mg DAILY PRN PO CONSTIPATION; Start 04/11/16 at 22:30 Chlorhexidine Gluconate (Peridex) 15 ml BID MM Last administered on 05/06/16 09:14; Admin Dose 15 ML; Start 04/12/16 at 09:00 Ferrous Sulfate (Feosol Liquid Cup) 300 mg BID GTB Last administered on 21:20; Admin Dose 300 MG; Start 04/12/16 at 09:00 Acetaminophen/ Hydrocodone Bitart ([place] (5/325)) 1 tab Q4 PRN GTB PAIN LEVEL 6 -10; Start 04/11/16 at 22:30 Lactulose (Enulose) 20 gm DAILY GTB Last administered on 05/05/16 09:37; Admin Dose 20 GM; Start 04/12/16 at 09:00 Quetiapine Fumarate (Seroquel) 25 mg BID@ GTB Last administered on 10:00; Admin Dose 25 MG; Start 04/12/16 at 09:00 Quetiapine Fumarate (Seroquel) 200 mg HS GTB Last administered on 05/05/16 21: 20; Admin Dose 200 MG; Start 04/12/16 at 21:00 Senna (Senokot) 1 tab QHS GTB Last administered on 05/05/16 21:20; Admin Dose 1 TAB; Start 04/12/16 at 21:00 Sodium Biphosphate/ Sodium Phosphate (Fleet Enema Pediatric) 66.6 ml DAILY PRN [place] CONSTIPATION; Start 04/11/16 at 22:30 Thiamine HCl (Vitamin B1) 100 mg DAILY GTB Last administered on 05/05/16 09:37 ; Admin Dose 100 MG; Start 04/12/16 at 09:00 Calcium Carbonate (Tums) 500 mg DAILY GTB Last administered on 05/05/16 09:53 ; Admin Dose 500 MG; Start 04/12/16 at 09:00 Multivitamins/ Minerals (Theragran-M) 1 tab DAILY PO Last administered on 09:37; Admin Dose 1 TAB; Start 04/12/16 at 09:00 Hydralazine HCl (Apresoline) 10 mg Q6H PRN IV SBP >160 Last administered on 00:49; Admin Dose 10 MG; Start 04/12/16 at 12:30 Famotidine (Pepcid) 20 mg Q12 GTB Last administered on 05/05/16 21:21; Admin Dose 20 MG; Start 04/19/16 at 21:00 Lorazepam (Ativan) 1 mg Q4 PRN IV AGITATION/ANXIETY Last administered on 10:00; Admin Dose 1 MG; Start 04/24/16 at 21:00 Clonidine 0.1 mg 0.1 mg Q6H PRN PO ELEVATED BLOOD PRESSURE; Start 04/24/16 at 23 :30 Dextrose/Sodium Chloride (D5-1/2ns) 1,000 ml @ 60 mls/hr [id number] IV Last administered on 05/05/16 17:00; Admin Dose 60 MLS/HR; Start 04/26/16 at 11:30 Metoprolol Tartrate (Lopressor) 5 mg Q4H PRN IV PRN HR>110 Hold SBP<100; Start 04/28/16 at 13:30 Furosemide (Lasix) 40 mg DAILY IV Last administered on 05/01/16 09:33; Admin Dose 40 MG; Start 04/30/16 at 09:00; Status Future Hold Metoprolol Tartrate (Lopressor) 25 mg BID PO Last administered on 04/29/16 21: 29; Admin Dose 25 MG; Start 04/29/16 at 21:00; Status Future Hold Lorazepam (Ativan) 1 mg Q6 GTB Last administered on 05/05/16 18:55; Admin Dose 1 MG; Start 05/02/16 at 00:00 Aspirin (Aspirin) 81 mg DAILY PO Last administered on 05/05/16 09:37; Admin Dose 81 MG; Start 05/02/16 at 14:30 Furosemide 20 mg 20 mg DAILY IV Last administered on 05/06/16 09:14; Admin Dose 20 MG; Start 05/03/16 at 09:00 Cefepime HCl (Maxipime 1gm/50 ml (Pmx)) 50 ml @ 100 mls/hr Q12 IVPB Last administered on 05/06/16 09:14; Admin Dose 100 MLS/HR; Start 05/03/16 at 10:00 Chlordiazepoxide 10 mg 10 mg TID PO Last administered on 05/05/16 21:21; Admin Dose 10 MG; Start 05/04/16 at 09:00 Vancomycin HCl (Vancocin) 100 ml @ 100 mls/hr Q12H IVPB ; Start 05/06/16 at 20: 00 Acetaminophen (Tylenol Liquid) 650 mg Q6H PRN GTB FEVER >101; Start 05/06/16 at 11:30 Enoxaparin Sodium (Lovenox) 30 mg DAILY SC ; Start 05/07/16 at 09:00 LILI BRADEN May 06, 2016 11:13
--- NOTE | 2016-05-06 11:29 | CONS ---
Date/Time of Note Date/Time of Note DATE: 05/06/16 TIME: 11:26 Assessment/Plan Assessment/Plan Chief Complaint/Hosp Course 65 up male with acute hypoxic respiratory failure being admitted for sepsis secondary to ESBL bacteremia. Pt had a worsening normocytic anemia that was likely secondary to his underlying sepsis and antibiotic use. Pt is now off antibiotic and Hg has remained stable. PT had a bleeding trach site and found with and elevated PTT to 85. Pt was given SQ Vitamin K. He is no longer bleeding and PTT has decreased to 50's -continue to monitor Hg. if < 8 will consider transfusion -ENT has been consulted for trach care -continue treatment of underlying CHF -s/p 5 days of V iron. now on po iron -continue antibiotics. pt now on vanc and cefepime Approximately 40 min were spent at patient's bedside and in coordination of his care Problems: Consultation Date/Type/Reason Admit Date/Time Apr 11, 2016 at 22:13 Initial Consult Date 04/21/16 Type of Consultation: Hematology Reason for Consultation anemia Referring Provider: ANNETTA AGUILAR MD 24 HR Interval Summary Free Text/Dictation bleeding from trach site has subsided Exam/Review of Systems Vital Signs Vitals Vital Signs Date Time Temp Pulse Resp B/P Pulse Ox O2 Delivery O2 Flow Rate FiO2 05/06/16 10:00 49 12 133/83 100 Mechanical Ventilator 05/06/16 09:20 35 05/06/16 08:00 98.2 05/02/16 16:20 10.0 Intake and Output 05/05/16 05/05/16 05/06/16 15:00 23:00 07:00 Intake Total 462 ml 1503 ml 220 ml Output Total 500 ml 465 ml 625 ml Balance -38 ml 1038 ml -405 ml Exam Constitutional: oriented Psych: no complaints Head: normocephalic Eyes: nl conjunctiva Neck: other (trach in place) Respiratory: clear to auscultation, normal air movement Cardiovascular: regular rate and rhythm Gastrointestinal: soft Musculoskeletal: nl extremities to inspection, nl gait and stance Results Result Diagram: 05/06/16 0445 05/06/165 Results 24 hrs Laboratory Tests Test 05/06/16 04:45 Anion Gap 7 L Basophils # 0.0 Basophils % 0.3 Blood Urea Nitrogen 10 Calcium Level 8.3 L Carbon Dioxide Level 39 H Chloride Level 98 Creatinine 0.48 L Eosinophils # 0.1 Eosinophils % 1.7 Glucose Level 80 Hematocrit 28.5 L Hemoglobin 8.9 L Lymphocytes # 0.8 Lymphocytes % 23.5 Mean Corpuscular Hemoglobin 27.6 L Mean Corpuscular Hemoglobin Concent 31.2 L Mean Corpuscular Volume 88.5 Mean Platelet Volume 10.8 H Monocytes # 0.3 Monocytes % 8.9 Neutrophils # 2.3 Neutrophils % 65.3 Nucleated Red Blood Cells # 0.0 Nucleated Red Blood Cells % 0.0 Platelet Count 89 L Potassium Level 3.6 Red Blood Count 3.22 L Red Cell Distribution Width 17.7 H Sodium Level 140 Vancomycin Level Trough 17.4 White Blood Count 3.6 L Medications Medications Current Medications Ondansetron HCl (Zofran Inj) 4 mg Q6H PRN IV NAUSEA AND/OR VOMITING Last administered on 04/24/16 21:00; Admin Dose 4 MG; Start 04/11/16 at 22:30 Acetaminophen (Tylenol Tab) 650 mg Q6H PRN PO PAIN LEVEL 1-3 OR FEVER; Start at 22:30 Morphine Sulfate (morphine) 2 mg Q4H PRN IV PAIN LEVEL 7-10 Last administered on 05/04/16 03:01; Admin Dose 2 MG; Start 04/11/16 at 22:30 Ascorbic Acid (Vitamin C) 500 mg DAILY GTB Last administered on 05/05/16 09:37 ; Admin Dose 500 MG; Start 04/12/16 at 09:00 Bisacodyl (Dulcolax) 10 mg DAILY PRN PO CONSTIPATION; Start 04/11/16 at 22:30 Chlorhexidine Gluconate (Peridex) 15 ml BID MM Last administered on 05/06/16 09:14; Admin Dose 15 ML; Start 04/12/16 at 09:00 Ferrous Sulfate (Feosol Liquid Cup) 300 mg BID GTB Last administered on 21:20; Admin Dose 300 MG; Start 04/12/16 at 09:00 Acetaminophen/ Hydrocodone Bitart ([place] (5/325)) 1 tab Q4 PRN GTB PAIN LEVEL 6 -10; Start 04/11/16 at 22:30 Lactulose (Enulose) 20 gm DAILY GTB Last administered on 05/05/16 09:37; Admin Dose 20 GM; Start 04/12/16 at 09:00 Quetiapine Fumarate (Seroquel) 25 mg BID@, GTB Last administered on 10:00; Admin Dose 25 MG; Start 04/12/16 at 09:00 Quetiapine Fumarate (Seroquel) 200 mg HS GTB Last administered on 05/05/16 21: 20; Admin Dose 200 MG; Start 04/12/16 at 21:00 Senna (Senokot) 1 tab QHS GTB Last administered on 05/05/16 21:20; Admin Dose 1 TAB; Start 04/12/16 at 21:00 Sodium Biphosphate/ Sodium Phosphate (Fleet Enema Pediatric) 66.6 ml DAILY PRN [place] CONSTIPATION; Start 04/11/16 at 22:30 Thiamine HCl (Vitamin B1) 100 mg DAILY GTB Last administered on 05/05/16 09:37 ; Admin Dose 100 MG; Start 04/12/16 at 09:00 Calcium Carbonate (Tums) 500 mg DAILY GTB Last administered on 05/05/16 09:53 ; Admin Dose 500 MG; Start 04/12/16 at 09:00 Multivitamins/ Minerals (Theragran-M) 1 tab DAILY PO Last administered on 09:37; Admin Dose 1 TAB; Start 04/12/16 at 09:00 Hydralazine HCl (Apresoline) 10 mg Q6H PRN IV SBP >160 Last administered on 00:49; Admin Dose 10 MG; Start 04/12/16 at 12:30 Famotidine (Pepcid) 20 mg Q12 GTB Last administered on 05/05/16 21:21; Admin Dose 20 MG; Start 04/19/16 at 21:00 Lorazepam (Ativan) 1 mg Q4 PRN IV AGITATION/ANXIETY Last administered on 10:00; Admin Dose 1 MG; Start 04/24/16 at 21:00 Clonidine 0.1 mg 0.1 mg Q6H PRN PO ELEVATED BLOOD PRESSURE; Start 04/24/16 at 23 :30 Dextrose/Sodium Chloride (D5-1/2ns) 1,000 ml @ 60 mls/hr [id number] IV Last administered on 05/05/16 17:00; Admin Dose 60 MLS/HR; Start 04/26/16 at 11:30 Metoprolol Tartrate (Lopressor) 5 mg Q4H PRN IV PRN HR>110 Hold SBP<100; Start 04/28/16 at 13:30 Furosemide (Lasix) 40 mg DAILY IV Last administered on 05/01/16 09:33; Admin Dose 40 MG; Start 04/30/16 at 09:00; Status Future Hold Metoprolol Tartrate (Lopressor) 25 mg BID PO Last administered on 04/29/16 21: 29; Admin Dose 25 MG; Start 04/29/16 at 21:00; Status Future Hold Lorazepam (Ativan) 1 mg Q6 GTB Last administered on 05/05/16 18:55; Admin Dose 1 MG; Start 05/02/16 at 00:00 Aspirin 81 mg 81 mg DAILY PO Last administered on 05/05/16 09:37; Admin Dose 81 MG; Start 05/02/16 at 14:30 Cefepime HCl (Maxipime 1gm/50 ml (Pmx)) 50 ml @ 100 mls/hr Q12 IVPB Last administered on 05/06/16 09:14; Admin Dose 100 MLS/HR; Start 05/03/16 at 10:00 Chlordiazepoxide 10 mg 10 mg TID PO Last administered on 05/05/16 21:21; Admin Dose 10 MG; Start 05/04/16 at 09:00 Vancomycin HCl (Vancocin) 100 ml @ 100 mls/hr Q12H IVPB ; Start 05/06/16 at 20: 00 Acetaminophen (Tylenol Liquid) 650 mg Q6H PRN GTB FEVER >101; Start 05/06/16 at 11:30 Furosemide (Lasix) 20 mg BID IV ; Start 05/06/16 at 21:00; Status JESI LEAHY M.D. May 06, 2016 11:28
[2016-05-06] MEDS ORDERED: ACETAMINOPHEN 650MG/20.3ML CUP GTB PRN (11:30)
--- NOTE | 2016-05-06 15:18 | CONS ---
Date/Time of Note Date/Time of Note DATE: 05/06/16 TIME: 15:17 Assessment/Plan Assessment/Plan Chief Complaint/Hosp Course SUBJECTIVE: Tx to tele. The patient is awake, looks comfortable. INDWELLINGS: Trach, left upper extremity PICC line, Rae. ANTIMICROBIALS: 1. Vancomycin. 2. Cefepime. PHYSICAL EXAMINATION: GENERAL: Chronically ill-appearing elderly man who is lying comfortably in bed. HEENT: Head atraumatic, normocephalic. Sclerae anicteric. Buccal mucosa dry. NECK: Supple. Tracheostomy present. CHEST: Rise symmetrical. Breath sounds diminished to bases. HEART: S1, S2. ABDOMEN: Soft. Bowel tones present. EXTREMITIES: Without cyanosis. ASSESSMENT: 1. Status post endotracheal bleeding. 2. Healthcare-associated pneumonia, recurrent. 3. Status post Escherichia coli extended-spectrum beta-lactamase urinary tract infection with bacteremia. 4. History of schizoaffective disorder. 5. Benign prostatic hypertrophy. PLAN: The patient remains stable. Continue present care, antibiotics. Follow Pulmonary, cardiology recommendations. DW staff Problems: Consultation Date/Type/Reason Admit Date/Time Apr 11, 2016 at 22:13 Initial Consult Date 04/12/16 Type of Consultation: ID Referring Provider: ANNETTA AGUILAR MD Exam/Review of Systems Vital Signs Vitals Vital Signs Date Time Temp Pulse Resp B/P Pulse Ox O2 Delivery O2 Flow Rate FiO2 05/06/16 14:33 48 22 100 35 05/06/16 10:00 133/83 Mechanical Ventilator 05/06/16 08:00 98.2 05/02/16 16:20 10.0 Intake and Output 05/05/16 05/05/16 05/06/16 15:00 23:00 07:00 Intake Total 462 ml 1503 ml 220 ml Output Total 500 ml 465 ml 625 ml Balance -38 ml 1038 ml -405 ml Results Result Diagram: 05/06/16 0445 05/06/16 0445 Results 24 hrs Laboratory Tests Test 05/06/16 04:45 Anion Gap 7 L Basophils # 0.0 Basophils % 0.3 Blood Urea Nitrogen 10 Calcium Level 8.3 L Carbon Dioxide Level 39 H Chloride Level 98 Creatinine 0.48 L Eosinophils # 0.1 Eosinophils % 1.7 Glucose Level 80 Hematocrit 28.5 L Hemoglobin 8.9 L Lymphocytes # 0.8 Lymphocytes % 23.5 Mean Corpuscular Hemoglobin 27.6 L Mean Corpuscular Hemoglobin Concent 31.2 L Mean Corpuscular Volume 88.5 Mean Platelet Volume 10.8 H Monocytes # 0.3 Monocytes % 8.9 Neutrophils # 2.3 Neutrophils % 65.3 Nucleated Red Blood Cells # 0.0 Nucleated Red Blood Cells % 0.0 Platelet Count 89 L Potassium Level 3.6 Red Blood Count 3.22 L Red Cell Distribution Width 17.7 H Sodium Level 140 Vancomycin Level Trough 17.4 White Blood Count 3.6 L Medications Medications Current Medications Ondansetron HCl (Zofran Inj) 4 mg Q6H PRN IV NAUSEA AND/OR VOMITING Last administered on 04/24/16 21:00; Admin Dose 4 MG; Start 04/11/16 at 22:30 Acetaminophen (Tylenol Tab) 650 mg Q6H PRN PO PAIN LEVEL 1-3 OR FEVER; Start at 22:30 Morphine Sulfate (morphine) 2 mg Q4H PRN IV PAIN LEVEL 7-10 Last administered on 05/04/16 03:01; Admin Dose 2 MG; Start 04/11/16 at 22:30 Ascorbic Acid (Vitamin C) 500 mg DAILY GTB Last administered on 05/05/16 09:37 ; Admin Dose 500 MG; Start 04/12/16 at 09:00 Bisacodyl (Dulcolax) 10 mg DAILY PRN PO CONSTIPATION; Start 04/11/16 at 22:30 Chlorhexidine Gluconate (Peridex) 15 ml BID MM Last administered on 05/06/16 09:14; Admin Dose 15 ML; Start 04/12/16 at 09:00 Ferrous Sulfate (Feosol Liquid Cup) 300 mg BID GTB Last administered on 21:20; Admin Dose 300 MG; Start 04/12/16 at 09:00 Acetaminophen/ Hydrocodone Bitart ([place] (5/325)) 1 tab Q4 PRN GTB PAIN LEVEL 6 -10; Start 04/11/16 at 22:30 Lactulose (Enulose) 20 gm DAILY GTB Last administered on 05/05/16 09:37; Admin Dose 20 GM; Start 04/12/16 at 09:00 Quetiapine Fumarate (Seroquel) 25 mg BID@09,17 GTB Last administered on 10:00; Admin Dose 25 MG; Start 04/12/16 at 09:00 Quetiapine Fumarate (Seroquel) 200 mg HS GTB Last administered on 05/05/16 21: 20; Admin Dose 200 MG; Start 04/12/16 at 21:00 Senna (Senokot) 1 tab QHS GTB Last administered on 05/05/16 21:20; Admin Dose 1 TAB; Start 04/12/16 at 21:00 Sodium Biphosphate/ Sodium Phosphate (Fleet Enema Pediatric) 66.6 ml DAILY PRN [place] CONSTIPATION; Start 04/11/16 at 22:30 Thiamine HCl (Vitamin B1) 100 mg DAILY GTB Last administered on 05/05/16 09:37 ; Admin Dose 100 MG; Start 04/12/16 at 09:00 Calcium Carbonate (Tums) 500 mg DAILY GTB Last administered on 05/05/16 09:53 ; Admin Dose 500 MG; Start 04/12/16 at 09:00 Multivitamins/ Minerals (Theragran-M) 1 tab DAILY PO Last administered on 09:37; Admin Dose 1 TAB; Start 04/12/16 at 09:00 Hydralazine HCl (Apresoline) 10 mg Q6H PRN IV SBP >160 Last administered on 00:49; Admin Dose 10 MG; Start 04/12/16 at 12:30 Famotidine (Pepcid) 20 mg Q12 GTB Last administered on 05/05/16 21:21; Admin Dose 20 MG; Start 04/19/16 at 21:00 Lorazepam (Ativan) 1 mg Q4 PRN IV AGITATION/ANXIETY Last administered on 10:00; Admin Dose 1 MG; Start 04/24/16 at 21:00 Clonidine 0.1 mg 0.1 mg Q6H PRN PO ELEVATED BLOOD PRESSURE; Start 04/24/16 at 23 :30 Dextrose/Sodium Chloride (D5-1/2ns) 1,000 ml @ 60 mls/hr [id number] IV Last administered on 05/05/16 17:00; Admin Dose 60 MLS/HR; Start 04/26/16 at 11:30 Metoprolol Tartrate (Lopressor) 5 mg Q4H PRN IV PRN HR>110 Hold SBP<100; Start 04/28/16 at 13:30 Metoprolol Tartrate (Lopressor) 25 mg BID PO Last administered on 04/29/16 21: 29; Admin Dose 25 MG; Start 04/29/16 at 21:00; Status Future Hold Lorazepam (Ativan) 1 mg Q6 GTB Last administered on 05/05/16 18:55; Admin Dose 1 MG; Start 05/02/16 at 00:00 Aspirin 81 mg 81 mg DAILY PO Last administered on 05/05/16 09:37; Admin Dose 81 MG; Start 05/02/16 at 14:30 Cefepime HCl (Maxipime 1gm/50 ml (Pmx)) 50 ml @ 100 mls/hr Q12 IVPB Last administered on 05/06/16 09:14; Admin Dose 100 MLS/HR; Start 05/03/16 at 10:00 Chlordiazepoxide 10 mg 10 mg TID PO Last administered on 05/05/16 21:21; Admin Dose 10 MG; Start 05/04/16 at 09:00 Vancomycin HCl (Vancocin) 100 ml @ 100 mls/hr Q12H IVPB ; Start 05/06/16 at 20: 00 Acetaminophen (Tylenol Liquid) 650 mg Q6H PRN GTB FEVER >101; Start 05/06/16 at 11:30 Furosemide (Lasix) 20 mg BID IV ; Start 05/06/16 at 21:00 MARK LONG NP May 06, 2016 15:18
[2016-05-06] MEDS: QUETIAPINE 100 MG TAB GTB SCH (20:49)
[2016-05-06] MEDS: SENNA TAB GTB SCH (20:49)
[2016-05-06] MEDS: LORAZEPAM 2 MG INJ IV PRN (21:03)
[2016-05-06] MEDS: DEXTROSE 5%-0.45% NACL 1,000 ML IV SCH (21:15)
[2016-05-06] MEDS: VANCOMYCIN 500MG/NS (PMX) 100 ML IVPB SCH (23:16)
[2016-05-07] VITALS (28 sets, daily range): BP systolic 124–179; BP diastolic 75–98; PULSE 56–81; RESP 14–22
[2016-05-07] MEDS: LORAZEPAM 2 MG INJ IV PRN ×3 (00:52→20:27)
[2016-05-07] MEDS: IPRATROPIUM (HFA) 12.9 GM INHALER INH SCH ×4 (02:00→17:03)
[2016-05-07] MEDS: ALBUTEROL HFA 8 GM INHALER INH SCH ×4 (02:00→17:04)
[2016-05-07 07:12] LABS: ADD SCAN DIFF NO
[2016-05-07 07:19] LABS: BASOPHILS % 0.8 % (0.0-2.0); EOSINOPHILS # 0.1 10^3/ul (0.0-0.5); EOSINOPHILS % 1.9 % (0.0-7.0); HEMATOCRIT 31.2 % (42.0-52.0); LYMPHOCYTES # 0.9 10^3/ul (0.8-2.9); LYMPHOCYTES % 24.1 % (15.0-51.0); MEAN CORPUSCULAR HEMOGLOBIN 27.7 pg (29.0-33.0); MEAN CORPUSCULAR HGB CONC 32.1 g/dl (32.0-37.0); MEAN CORPUSCULAR VOLUME 86.4 fl (82.0-101.0); MEAN PLATELET VOLUME 12.1 fl (7.4-10.4); MONOCYTE # 0.4 10^3/ul (0.3-0.9); MONOCYTES % 11.7 % (0.0-11.0); NEUTROPHIL # 2.3 10^3/ul (1.6-7.5); NEUTROPHILS % 61.5 % (39.0-77.0); PLATELET COUNT 111 10^3/UL (140-415); RED BLOOD COUNT 3.61 10^6/ul (4.70-6.10); RED CELL DISTRIBUTION WIDTH 17.2 % (11.5-14.5); WHITE BLOOD COUNT 3.7 10^3/ul (4.8-10.8)
[2016-05-07] MEDS: MULTIVITAMINS/MINERALS TAB PO SCH (09:00)
[2016-05-07] MEDS: ASPIRIN 81 MG TAB PO SCH (09:00)
[2016-05-07] MEDS: CALCIUM CARBONATE 500 MG CHEW TAB GTB SCH (09:00)
[2016-05-07] MEDS: FAMOTIDINE 20 MG TAB GTB SCH ×2 (09:00→19:47)
[2016-05-07] MEDS: CHLORDIAZEPOXIDE 5 MG CAP PO SCH ×3 (09:00→19:49)
[2016-05-07] MEDS: QUETIAPINE 25 MG TAB GTB SCH ×2 (09:00→17:00)
[2016-05-07] MEDS: ASCORBIC ACID 500 MG TAB GTB SCH (09:00)
[2016-05-07] MEDS: FERROUS SULFATE 60 MG/ML 5ML CUP GTB SCH ×2 (09:00→19:46)
[2016-05-07] MEDS: THIAMINE 100 MG TAB GTB SCH (09:00)
[2016-05-07] MEDS ORDERED: ENOXAPARIN 30 MG/0.3 ML SYG SC SCH (09:00)
[2016-05-07] MEDS: LACTULOSE 30ML CUP GTB SCH (09:00)
--- NOTE | 2016-05-07 09:11 | CONS ---
Date/Time of Note Date/Time of Note DATE: 05/07/16 TIME: 09:07 Assessment/Plan Assessment/Plan Additional Assessment/Plan Chest x-ray was reviewed from yesterday after a visually marked improvement in bilateral lower lobe infiltrates as well as pleural effusions. Next Continue to settings; AC of 12, tidal volume 450, PEEP of 5, 35% FiO2. Next Assessment recommendations; 1. Patient admitted for left-sided pneumonia good initially improved and then had significant bilateral pneumonia possibly aspiration with again significant radiological and clinically improvement . 2. History of alcoholic encephalopathy. 3. Patient now developing hypercapnic respiratory failure requiring full ventilator support. 4. CHF. Clinically improved as well. Continue current treatment for now patient responding well to current treatment regimen. Overall prognosis however remains poor. Consultation Date/Type/Reason Admit Date/Time Apr 11, 2016 at 22:13 Initial Consult Date 04/12/16 Type of Consultation: Pulmonary Referring Provider: ANNETTA AGUILAR MD 24 HR Interval Summary Free Text/Dictation Patient condition is stable. Had been transferred to telemetry unit. Remains awake. Follows very simple commands. Next General exam; elderly male, on ventilator via tracheostomy currently in no distress. Awake and alert. Exam/Review of Systems Vital Signs Vitals Vital Signs Date Time Temp Pulse Resp B/P Pulse Ox O2 Delivery O2 Flow Rate FiO2 05/07/16 08:59 61 05/07/16 07:52 98.2 19 164/86 98 05/07/16 07:35 35 05/07/16 06:04 Mechanical Ventilator Intake and Output 05/06/16 05/06/16 05/07/16 15:00 23:00 07:00 Intake Total 1050 ml 700 ml Output Total 600 ml 800 ml 800 ml Balance -600 ml 250 ml -100 ml Exam H EENT examination; supple neck, positive JVD. No lymphadenopathy. Midline trachea. Tracheostomy in place with clean insertion site. Pupils are midsize and reactive to light. Patient upper jaw is edentulous. Chest examination; diminished but clear breath sounds bilaterally. S1-S2 audible, no murmurs. Regular rhythm. Abdomen examination; soft, scaphoid, no organomegaly, nontender. Bowel sounds audible. Extremity exam; no peripheral edema. [employer] exam is; patient is stable paraplegia. Results Result Diagram: 05/07/16 0640 05/06/16 0445 Results 24 hrs Laboratory Tests Test 05/07/16 06:40 Basophils # 0.0 Basophils % 0.8 Eosinophils # 0.1 Eosinophils % 1.9 Hematocrit 31.2 L Hemoglobin 10.0 L Lymphocytes # 0.9 Lymphocytes % 24.1 Mean Corpuscular Hemoglobin 27.7 L Mean Corpuscular Hemoglobin Concent 32.1 Mean Corpuscular Volume 86.4 Mean Platelet Volume 12.1 H Monocytes # 0.4 Monocytes % 11.7 H Neutrophils # 2.3 Neutrophils % 61.5 Nucleated Red Blood Cells # 0.0 Nucleated Red Blood Cells % 0.0 Platelet Count 111 #L Red Blood Count 3.61 L Red Cell Distribution Width 17.2 H White Blood Count 3.7 L Medications Medications Current Medications Ondansetron HCl (Zofran Inj) 4 mg Q6H PRN IV NAUSEA AND/OR VOMITING Last administered on 04/24/16 21:00; Admin Dose 4 MG; Start 04/11/16 at 22:30 Acetaminophen (Tylenol Tab) 650 mg Q6H PRN PO PAIN LEVEL 1-3 OR FEVER; Start at 22:30 Morphine Sulfate (morphine) 2 mg Q4H PRN IV PAIN LEVEL 7-10 Last administered on 05/04/16 03:01; Admin Dose 2 MG; Start 04/11/16 at 22:30 Ascorbic Acid (Vitamin C) 500 mg DAILY GTB Last administered on 05/05/16 09:37 ; Admin Dose 500 MG; Start 04/12/16 at 09:00 Bisacodyl (Dulcolax) 10 mg DAILY PRN PO CONSTIPATION; Start 04/11/16 at 22:30 Chlorhexidine Gluconate (Peridex) 15 ml BID MM Last administered on 05/06/16 09:14; Admin Dose 15 ML; Start 04/12/16 at 09:00 Ferrous Sulfate (Feosol Liquid Cup) 300 mg BID GTB Last administered on 21:20; Admin Dose 300 MG; Start 04/12/16 at 09:00 Acetaminophen/ Hydrocodone Bitart ([place] (5/325)) 1 tab Q4 PRN GTB PAIN LEVEL 6 -10; Start 04/11/16 at 22:30 Lactulose (Enulose) 20 gm DAILY GTB Last administered on 05/05/16 09:37; Admin Dose 20 GM; Start 04/12/16 at 09:00 Quetiapine Fumarate (Seroquel) 25 mg BID@17 GTB Last administered on 10:00; Admin Dose 25 MG; Start 04/12/16 at 09:00 Quetiapine Fumarate (Seroquel) 200 mg HS GTB Last administered on 05/05/16 21: 20; Admin Dose 200 MG; Start 04/12/16 at 21:00 Senna (Senokot) 1 tab QHS GTB Last administered on 05/05/16 21:20; Admin Dose 1 TAB; Start 04/12/16 at 21:00 Sodium Biphosphate/ Sodium Phosphate (Fleet Enema Pediatric) 66.6 ml DAILY PRN [place] CONSTIPATION; Start 04/11/16 at 22:30 Thiamine HCl (Vitamin B1) 100 mg DAILY GTB Last administered on 05/05/16 09:37 ; Admin Dose 100 MG; Start 04/12/16 at 09:00 Calcium Carbonate (Tums) 500 mg DAILY GTB Last administered on 05/05/16 09:53 ; Admin Dose 500 MG; Start 04/12/16 at 09:00 Multivitamins/ Minerals (Theragran-M) 1 tab DAILY PO Last administered on 09:37; Admin Dose 1 TAB; Start 04/12/16 at 09:00 Hydralazine HCl (Apresoline) 10 mg Q6H PRN IV SBP >160 Last administered on 00:49; Admin Dose 10 MG; Start 04/12/16 at 12:30 Famotidine (Pepcid) 20 mg Q12 GTB Last administered on 05/05/16 21:21; Admin Dose 20 MG; Start 04/19/16 at 21:00 Lorazepam (Ativan) 1 mg Q4 PRN IV AGITATION/ANXIETY Last administered on 04:54; Admin Dose 1 MG; Start 04/24/16 at 21:00 Clonidine 0.1 mg 0.1 mg Q6H PRN PO ELEVATED BLOOD PRESSURE; Start 04/24/16 at 23 :30 Dextrose/Sodium Chloride (D5-1/2ns) 1,000 ml @ 60 mls/hr [id number] IV Last administered on 05/06/16 21:15; Admin Dose 60 MLS/HR; Start 04/26/16 at 11:30 Metoprolol Tartrate (Lopressor) 5 mg Q4H PRN IV PRN HR>110 Hold SBP<100; Start 04/28/16 at 13:30 Metoprolol Tartrate (Lopressor) 25 mg BID PO Last administered on 04/29/16 21: 29; Admin Dose 25 MG; Start 04/29/16 at 21:00; Status Future Hold Lorazepam (Ativan) 1 mg Q6 GTB Last administered on 05/05/16 18:55; Admin Dose 1 MG; Start 05/02/16 at 00:00 Aspirin 81 mg 81 mg DAILY PO Last administered on 05/05/16 09:37; Admin Dose 81 MG; Start 05/02/16 at 14:30 Cefepime HCl (Maxipime 1gm/50 ml (Pmx)) 50 ml @ 100 mls/hr Q12 IVPB Last administered on 05/06/16 21:03; Admin Dose 100 MLS/HR; Start 05/03/16 at 10:00 Chlordiazepoxide 10 mg 10 mg TID PO Last administered on 05/05/16 21:21; Admin Dose 10 MG; Start 05/04/16 at 09:00 Vancomycin HCl (Vancocin) 100 ml @ 100 mls/hr Q12H IVPB Last administered on 23:16; Admin Dose 100 MLS/HR; Start 05/06/16 at 20:00 Acetaminophen (Tylenol Liquid) 650 mg Q6H PRN GTB FEVER >101; Start 05/06/16 at 11:30 Furosemide (Lasix) 20 mg BID IV Last administered on 05/06/16 21:03; Admin Dose 20 MG; Start 05/06/16 at 21:00 Miscellaneous Information (*Rx Drug Level Order Reminder*) VANCO TROUGH @ 0, 700 ON... ONCE ONCE XX ; Start 05/08/16 at 07:00; Stop 05/08/16 at 07:01 KATHERYN LAWTON 17, 2017 09:10
[2016-05-07] MEDS: CHLORHEXIDINE GLUCONATE 15 ML UD CUP MM SCH ×2 (09:33→20:27)
[2016-05-07] MEDS: FUROSEMIDE 20 MG INJ IV SCH ×2 (09:38→20:27)
[2016-05-07] MEDS: CEFEPIME 1GM/50 ML (PMX) 50 ML IVPB SCH ×2 (09:58→20:27)
[2016-05-07] MEDS: LORAZEPAM 1 MG TAB GTB SCH ×3 (12:00→19:49)
[2016-05-07] MEDS: VANCOMYCIN 500MG/NS (PMX) 100 ML IVPB SCH (12:20)
[2016-05-07] MEDS: DEXTROSE 5%-0.45% NACL 1,000 ML IV SCH (14:10)
--- NOTE | 2016-05-07 14:29 | CONS ---
Date/Time of Note Date/Time of Note DATE: 05/07/16 TIME: 14:27 Assessment/Plan Assessment/Plan Chief Complaint/Hosp Course 65 up male with acute hypoxic respiratory failure being admitted for sepsis secondary to ESBL bacteremia. Pt had a worsening normocytic anemia that was likely secondary to his underlying sepsis and antibiotic use. Pt is now off antibiotic and Hg has remained stable. PT had a bleeding trach site and found with and elevated PTT to 85. Pt was given SQ Vitamin K. He is no longer bleeding and PTT has decreased to 50's -continue to monitor Hg. if < 8 will consider transfusion. CBC is improving -ENT has been consulted for trach care -continue treatment of underlying CHF -s/p 5 days of V iron. now on po iron -continue antibiotics. pt now on vanc and cefepime Approximately 40 min were spent at patient's bedside and in coordination of his care Problems: Consultation Date/Type/Reason Admit Date/Time Apr 11, 2016 at 22:13 Initial Consult Date 04/21/16 Type of Consultation: Hematology Reason for Consultation anemia Referring Provider: ANNETTA AGUILAR MD 24 HR Interval Summary Free Text/Dictation no bleeding from trach site Exam/Review of Systems Vital Signs Vitals Vital Signs Date Time Temp Pulse Resp B/P Pulse Ox O2 Delivery O2 Flow Rate FiO2 05/07/16 13:30 75 15 98 35 05/07/16 11:58 98.2 124/89 05/07/16 06:04 Mechanical Ventilator Intake and Output 05/06/16 05/06/16 05/07/16 15:00 23:00 07:00 Intake Total 1050 ml 700 ml Output Total 600 ml 800 ml 800 ml Balance -600 ml 250 ml -100 ml Exam Constitutional: alert, oriented Psych: no complaints Head: normocephalic Eyes: nl conjunctiva ENMT: nl external ears & nose Neck: other (trach in place) Respiratory: clear to auscultation, normal air movement Cardiovascular: regular rate and rhythm Gastrointestinal: soft Musculoskeletal: nl extremities to inspection, nl gait and stance Results Result Diagram: 05/07/16 0640 05/06/16 0445 Results 24 hrs Laboratory Tests Test 05/07/16 06:40 Basophils # 0.0 Basophils % 0.8 Eosinophils # 0.1 Eosinophils % 1.9 Hematocrit 31.2 L Hemoglobin 10.0 L Lymphocytes # 0.9 Lymphocytes % 24.1 Mean Corpuscular Hemoglobin 27.7 L Mean Corpuscular Hemoglobin Concent 32.1 Mean Corpuscular Volume 86.4 Mean Platelet Volume 12.1 H Monocytes # 0.4 Monocytes % 11.7 H Neutrophils # 2.3 Neutrophils % 61.5 Nucleated Red Blood Cells # 0.0 Nucleated Red Blood Cells % 0.0 Platelet Count 111 #L Red Blood Count 3.61 L Red Cell Distribution Width 17.2 H White Blood Count 3.7 L Medications Medications Current Medications Ondansetron HCl (Zofran Inj) 4 mg Q6H PRN IV NAUSEA AND/OR VOMITING Last administered on 04/24/16 21:00; Admin Dose 4 MG; Start 04/11/16 at 22:30 Acetaminophen (Tylenol Tab) 650 mg Q6H PRN PO PAIN LEVEL 1-3 OR FEVER; Start at 22:30 Morphine Sulfate (morphine) 2 mg Q4H PRN IV PAIN LEVEL 7-10 Last administered on 05/04/16 03:01; Admin Dose 2 MG; Start 04/11/16 at 22:30 Ascorbic Acid (Vitamin C) 500 mg DAILY GTB Last administered on 05/05/16 09:37 ; Admin Dose 500 MG; Start 04/12/16 at 09:00 Bisacodyl (Dulcolax) 10 mg DAILY PRN PO CONSTIPATION; Start 04/11/16 at 22:30 Chlorhexidine Gluconate (Peridex) 15 ml BID MM Last administered on 05/07/16 09:33; Admin Dose 15 ML; Start 04/12/16 at 09:00 Ferrous Sulfate (Feosol Liquid Cup) 300 mg BID GTB Last administered on 21:20; Admin Dose 300 MG; Start 04/12/16 at 09:00 Acetaminophen/ Hydrocodone Bitart ([place] (5/325)) 1 tab Q4 PRN GTB PAIN LEVEL 6 -10; Start 04/11/16 at 22:30 Lactulose (Enulose) 20 gm DAILY GTB Last administered on 05/05/16 09:37; Admin Dose 20 GM; Start 04/12/16 at 09:00 Quetiapine Fumarate (Seroquel) 25 mg BID@ GTB Last administered on 10:00; Admin Dose 25 MG; Start 04/12/16 at 09:00 Quetiapine Fumarate (Seroquel) 200 mg HS GTB Last administered on 05/05/16 21: 20; Admin Dose 200 MG; Start 04/12/16 at 21:00 Senna (Senokot) 1 tab QHS GTB Last administered on 05/05/16 21:20; Admin Dose 1 TAB; Start 04/12/16 at 21:00 Sodium Biphosphate/ Sodium Phosphate (Fleet Enema Pediatric) 66.6 ml DAILY PRN [place] CONSTIPATION; Start 04/11/16 at 22:30 Thiamine HCl (Vitamin B1) 100 mg DAILY GTB Last administered on 05/05/16 09:37 ; Admin Dose 100 MG; Start 04/12/16 at 09:00 Calcium Carbonate (Tums) 500 mg DAILY GTB Last administered on 05/05/16 09:53 ; Admin Dose 500 MG; Start 04/12/16 at 09:00 Multivitamins/ Minerals (Theragran-M) 1 tab DAILY PO Last administered on 09:37; Admin Dose 1 TAB; Start 04/12/16 at 09:00 Hydralazine HCl (Apresoline) 10 mg Q6H PRN IV SBP >160 Last administered on 00:49; Admin Dose 10 MG; Start 04/12/16 at 12:30 Famotidine (Pepcid) 20 mg Q12 GTB Last administered on 05/05/16 21:21; Admin Dose 20 MG; Start 04/19/16 at 21:00 Lorazepam (Ativan) 1 mg Q4 PRN IV AGITATION/ANXIETY Last administered on 04:54; Admin Dose 1 MG; Start 04/24/16 at 21:00 Clonidine 0.1 mg 0.1 mg Q6H PRN PO ELEVATED BLOOD PRESSURE; Start 04/24/16 at 23 :30 Dextrose/Sodium Chloride (D5-1/2ns) 1,000 ml @ 60 mls/hr [id number] IV Last administered on 05/06/16 21:15; Admin Dose 60 MLS/HR; Start 04/26/16 at 11:30 Metoprolol Tartrate (Lopressor) 5 mg Q4H PRN IV PRN HR>110 Hold SBP<100; Start 04/28/16 at 13:30 Metoprolol Tartrate (Lopressor) 25 mg BID PO Last administered on 04/29/16 21: 29; Admin Dose 25 MG; Start 04/29/16 at 21:00; Status Future Hold Lorazepam (Ativan) 1 mg Q6 GTB Last administered on 05/05/16 18:55; Admin Dose 1 MG; Start 05/02/16 at 00:00 Aspirin 81 mg 81 mg DAILY PO Last administered on 05/05/16 09:37; Admin Dose 81 MG; Start 05/02/16 at 14:30 Cefepime HCl (Maxipime 1gm/50 ml (Pmx)) 50 ml @ 100 mls/hr Q12 IVPB Last administered on 05/07/16 09:58; Admin Dose 100 MLS/HR; Start 05/03/16 at 10:00 Chlordiazepoxide 10 mg 10 mg TID PO Last administered on 05/05/16 21:21; Admin Dose 10 MG; Start 05/04/16 at 09:00 Vancomycin HCl (Vancocin) 100 ml @ 100 mls/hr Q12H IVPB Last administered on 12:20; Admin Dose 100 MLS/HR; Start 05/06/16 at 20:00 Acetaminophen (Tylenol Liquid) 650 mg Q6H PRN GTB FEVER >101; Start 05/06/16 at 11:30 Furosemide (Lasix) 20 mg BID IV Last administered on 05/07/16 09:38; Admin Dose 20 MG; Start 05/06/16 at 21:00 Miscellaneous Information (*Rx Drug Level Order Reminder*) VANCO TROUGH @ 0, 700 ON... ONCE ONCE XX ; Start 05/08/16 at 07:00; Stop 05/08/16 at 07:01 JESI MONTEMAYOR M.D. May 07, 2016 14:29
--- NOTE | 2016-05-07 15:36 | CONS ---
Date/Time of Note Date/Time of Note DATE: 05/07/16 TIME: 15:35 Assessment/Plan Assessment/Plan Chief Complaint/Hosp Course SUBJECTIVE: No events. The patient is awake, looks comfortable. INDWELLINGS: Trach, left upper extremity PICC line, Rae. ANTIMICROBIALS: 1. Vancomycin. 2. Cefepime. PHYSICAL EXAMINATION: GENERAL: Chronically ill-appearing elderly man who is lying comfortably in bed. HEENT: Head atraumatic, normocephalic. Sclerae anicteric. Buccal mucosa dry. NECK: Supple. Tracheostomy present. CHEST: Rise symmetrical. Breath sounds diminished to bases. HEART: S1, S2. ABDOMEN: Soft. Bowel tones present. EXTREMITIES: Without cyanosis. ASSESSMENT: 1. Status post endotracheal bleeding. 2. Healthcare-associated pneumonia, recurrent. 3. Status post Escherichia coli extended-spectrum beta-lactamase urinary tract infection with bacteremia. 4. History of schizoaffective disorder. 5. Benign prostatic hypertrophy. PLAN: The patient remains stable. Continue present care, antibiotics. DW staff Problems: Consultation Date/Type/Reason Admit Date/Time Apr 11, 2016 at 22:13 Initial Consult Date 04/12/16 Type of Consultation: id Referring Provider: ANNETTA AGUILAR MD Exam/Review of Systems Vital Signs Vitals Vital Signs Date Time Temp Pulse Resp B/P Pulse Ox O2 Delivery O2 Flow Rate FiO2 05/07/16 15:00 64 18 96 35 05/07/16 11:58 98.2 124/89 05/07/16 06:04 Mechanical Ventilator Intake and Output 05/06/16 05/06/16 05/07/16 15:00 23:00 07:00 Intake Total 1050 ml 700 ml Output Total 600 ml 800 ml 800 ml Balance -600 ml 250 ml -100 ml Results Result Diagram: 05/07/16 0640 05/06/16 0445 Results 24 hrs Laboratory Tests Test 05/07/16 06:40 Basophils # 0.0 Basophils % 0.8 Eosinophils # 0.1 Eosinophils % 1.9 Hematocrit 31.2 L Hemoglobin 10.0 L Lymphocytes # 0.9 Lymphocytes % 24.1 Mean Corpuscular Hemoglobin 27.7 L Mean Corpuscular Hemoglobin Concent 32.1 Mean Corpuscular Volume 86.4 Mean Platelet Volume 12.1 H Monocytes # 0.4 Monocytes % 11.7 H Neutrophils # 2.3 Neutrophils % 61.5 Nucleated Red Blood Cells # 0.0 Nucleated Red Blood Cells % 0.0 Platelet Count 111 #L Red Blood Count 3.61 L Red Cell Distribution Width 17.2 H White Blood Count 3.7 L Medications Medications Current Medications Ondansetron HCl (Zofran Inj) 4 mg Q6H PRN IV NAUSEA AND/OR VOMITING Last administered on 04/24/16 21:00; Admin Dose 4 MG; Start 04/11/16 at 22:30 Acetaminophen (Tylenol Tab) 650 mg Q6H PRN PO PAIN LEVEL 1-3 OR FEVER; Start at 22:30 Morphine Sulfate (morphine) 2 mg Q4H PRN IV PAIN LEVEL 7-10 Last administered on 05/04/16 03:01; Admin Dose 2 MG; Start 04/11/16 at 22:30 Ascorbic Acid (Vitamin C) 500 mg DAILY GTB Last administered on 05/05/16 09:37 ; Admin Dose 500 MG; Start 04/12/16 at 09:00 Bisacodyl (Dulcolax) 10 mg DAILY PRN PO CONSTIPATION; Start 04/11/16 at 22:30 Chlorhexidine Gluconate (Peridex) 15 ml BID MM Last administered on 05/07/16 09:33; Admin Dose 15 ML; Start 04/12/16 at 09:00 Ferrous Sulfate (Feosol Liquid Cup) 300 mg BID GTB Last administered on 21:20; Admin Dose 300 MG; Start 04/12/16 at 09:00 Acetaminophen/ Hydrocodone Bitart ([place] (5/325)) 1 tab Q4 PRN GTB PAIN LEVEL 6 -10; Start 04/11/16 at 22:30 Lactulose (Enulose) 20 gm DAILY GTB Last administered on 05/05/16 09:37; Admin Dose 20 GM; Start 04/12/16 at 09:00 Quetiapine Fumarate (Seroquel) 25 mg BID@ GTB Last administered on 10:00; Admin Dose 25 MG; Start 04/12/16 at 09:00 Quetiapine Fumarate (Seroquel) 200 mg HS GTB Last administered on 05/05/16 21: 20; Admin Dose 200 MG; Start 04/12/16 at 21:00 Senna (Senokot) 1 tab QHS GTB Last administered on 05/05/16 21:20; Admin Dose 1 TAB; Start 04/12/16 at 21:00 Sodium Biphosphate/ Sodium Phosphate (Fleet Enema Pediatric) 66.6 ml DAILY PRN [place] CONSTIPATION; Start 04/11/16 at 22:30 Thiamine HCl (Vitamin B1) 100 mg DAILY GTB Last administered on 05/05/16 09:37 ; Admin Dose 100 MG; Start 04/12/16 at 09:00 Calcium Carbonate (Tums) 500 mg DAILY GTB Last administered on 05/05/16 09:53 ; Admin Dose 500 MG; Start 04/12/16 at 09:00 Multivitamins/ Minerals (Theragran-M) 1 tab DAILY PO Last administered on 09:37; Admin Dose 1 TAB; Start 04/12/16 at 09:00 Hydralazine HCl (Apresoline) 10 mg Q6H PRN IV SBP >160 Last administered on 00:49; Admin Dose 10 MG; Start 04/12/16 at 12:30 Famotidine (Pepcid) 20 mg Q12 GTB Last administered on 05/05/16 21:21; Admin Dose 20 MG; Start 04/19/16 at 21:00 Lorazepam (Ativan) 1 mg Q4 PRN IV AGITATION/ANXIETY Last administered on 04:54; Admin Dose 1 MG; Start 04/24/16 at 21:00 Clonidine 0.1 mg 0.1 mg Q6H PRN PO ELEVATED BLOOD PRESSURE; Start 04/24/16 at 23 :30 Dextrose/Sodium Chloride (D5-1/2ns) 1,000 ml @ 60 mls/hr [id number] IV Last administered on 05/06/16 21:15; Admin Dose 60 MLS/HR; Start 04/26/16 at 11:30 Metoprolol Tartrate (Lopressor) 5 mg Q4H PRN IV PRN HR>110 Hold SBP<100; Start 04/28/16 at 13:30 Metoprolol Tartrate (Lopressor) 25 mg BID PO Last administered on 04/29/16 21: 29; Admin Dose 25 MG; Start 04/29/16 at 21:00; Status Future Hold Lorazepam (Ativan) 1 mg Q6 GTB Last administered on 05/05/16 18:55; Admin Dose 1 MG; Start 05/02/16 at 00:00 Aspirin 81 mg 81 mg DAILY PO Last administered on 05/05/16 09:37; Admin Dose 81 MG; Start 05/02/16 at 14:30 Cefepime HCl (Maxipime 1gm/50 ml (Pmx)) 50 ml @ 100 mls/hr Q12 IVPB Last administered on 05/07/16 09:58; Admin Dose 100 MLS/HR; Start 05/03/16 at 10:00 Chlordiazepoxide 10 mg 10 mg TID PO Last administered on 05/05/16 21:21; Admin Dose 10 MG; Start 05/04/16 at 09:00 Vancomycin HCl (Vancocin) 100 ml @ 100 mls/hr Q12H IVPB Last administered on 12:20; Admin Dose 100 MLS/HR; Start 05/06/16 at 20:00 Acetaminophen (Tylenol Liquid) 650 mg Q6H PRN GTB FEVER >101; Start 05/06/16 at 11:30 Furosemide (Lasix) 20 mg BID IV Last administered on 05/07/16 09:38; Admin Dose 20 MG; Start 05/06/16 at 21:00 Miscellaneous Information (*Rx Drug Level Order Reminder*) VANCO TROUGH @ 0, 700 ON... ONCE ONCE XX ; Start 05/08/16 at 07:00; Stop 05/08/16 at 07:01 MARK LONG NP May 07, 2016 15:35
--- NOTE | 2016-05-07 17:36 | CONS ---
Date/Time of Note Date/Time of Note DATE: 05/07/16 TIME: 17:33 Assessment/Plan Assessment/Plan Chief Complaint/Hosp Course IMPRESSION: 1. Wide complex tachycardia, cardiac arrhythmia. Rule out nonsustained ventricular tachycardia.-likely c/w abberant AF-no recurrence 2. Abnormal electrocardiogram, assess for acute coronary syndrome. 3. Congestive heart failure by chest x-ray, diastolic by most recent echo acute on chronic. 4. Hypertension with current borderline HOtn s/p IVP hydralazine 5. Respiratory failure, chronic, status post tracheostomy with desat now transferred to ICU 6. Dysphagia, status post G-tube. 7. Psychiatric disorder. 8. Urinary tract infection. 9. Hypokalemia-improved 10. Anemia. 11. Leukopenia. 12.Nstemi-no current chest pain/decreased enzymes 14. Bradycardia-improved Recc: -Tele -Continue to hold BB given prior bradycardia -Continue asa medical therapy for nstemi with currently decreased cardiac enzymes/NO cp -Continue lasix diuresis and consider increase dose to improve diuresis -C discussed with patient but patient does not have clear understanding and would like to wait -LOvenox held due to trach site bleeding Problems: Consultation Date/Type/Reason Admit Date/Time Apr 11, 2016 at 22:13 Initial Consult Date 04/21/16 Type of Consultation: Cardiology Reason for Consultation Nstemi Referring Provider: ANNETTA AGUILAR MD Exam/Review of Systems Vital Signs Vitals Vital Signs Date Time Temp Pulse Resp B/P Pulse Ox O2 Delivery O2 Flow Rate FiO2 05/07/16 16:19 98.6 79 19 168/80 98 05/07/16 15:00 35 05/07/16 06:04 Mechanical Ventilator Intake and Output 05/06/16 05/06/16 05/07/16 14:59 22:59 06:59 Intake Total 1050 ml 700 ml Output Total 600 ml 800 ml 800 ml Balance -600 ml 250 ml -100 ml Exam Review of Systems: CONSTITUTIONAL: No fevers, chills. PULMONARY: trached CARDIOVASCULAR: No chest pain/palpitations GASTROINTESTINAL: No nausea/vomiting. GENITOURINARY: No hematuria/dysuria. MUSCULOSKELETAL: No myagias/arthalgias. PSYCHIATRIC: The patient denies depression. NEUROLOGIC: No weakness Constitutional: alert Psych: confusion Head: normocephalic Neck: other (trached) Respiratory: other (upper airway rhochi) Cardiovascular: regular rate and rhythm Gastrointestinal: non-tender, soft Musculoskeletal: muscle tone (normal) Extremities: edema (none), other (contracted) Neurological: other (NO focal deficits) Results Result Diagram: 05/07/16 0640 05/06/16 0445 Results 24 hrs Laboratory Tests Test 05/07/16 06:40 Basophils # 0.0 Basophils % 0.8 Eosinophils # 0.1 Eosinophils % 1.9 Hematocrit 31.2 L Hemoglobin 10.0 L Lymphocytes # 0.9 Lymphocytes % 24.1 Mean Corpuscular Hemoglobin 27.7 L Mean Corpuscular Hemoglobin Concent 32.1 Mean Corpuscular Volume 86.4 Mean Platelet Volume 12.1 H Monocytes # 0.4 Monocytes % 11.7 H Neutrophils # 2.3 Neutrophils % 61.5 Nucleated Red Blood Cells # 0.0 Nucleated Red Blood Cells % 0.0 Platelet Count 111 #L Red Blood Count 3.61 L Red Cell Distribution Width 17.2 H White Blood Count 3.7 L Medications Medications Current Medications Ondansetron HCl (Zofran Inj) 4 mg Q6H PRN IV NAUSEA AND/OR VOMITING Last administered on 04/24/16 21:00; Admin Dose 4 MG; Start 04/11/16 at 22:30 Acetaminophen (Tylenol Tab) 650 mg Q6H PRN PO PAIN LEVEL 1-3 OR FEVER; Start at 22:30 Morphine Sulfate (morphine) 2 mg Q4H PRN IV PAIN LEVEL 7-10 Last administered on 05/04/16 03:01; Admin Dose 2 MG; Start 04/11/16 at 22:30 Ascorbic Acid (Vitamin C) 500 mg DAILY GTB Last administered on 05/05/16 09:37 ; Admin Dose 500 MG; Start 04/12/16 at 09:00 Bisacodyl (Dulcolax) 10 mg DAILY PRN PO CONSTIPATION; Start 04/11/16 at 22:30 Chlorhexidine Gluconate (Peridex) 15 ml BID MM Last administered on 05/07/16 09:33; Admin Dose 15 ML; Start 04/12/16 at 09:00 Ferrous Sulfate (Feosol Liquid Cup) 300 mg BID GTB Last administered on 21:20; Admin Dose 300 MG; Start 04/12/16 at 09:00 Acetaminophen/ Hydrocodone Bitart ([place] (5/325)) 1 tab Q4 PRN GTB PAIN LEVEL 6 -10; Start 04/11/16 at 22:30 Lactulose (Enulose) 20 gm DAILY GTB Last administered on 05/05/16 09:37; Admin Dose 20 GM; Start 04/12/16 at 09:00 Quetiapine Fumarate (Seroquel) 25 mg BID@ GTB Last administered on 10:00; Admin Dose 25 MG; Start 04/12/16 at 09:00 Quetiapine Fumarate (Seroquel) 200 mg HS GTB Last administered on 05/05/16 21: 20; Admin Dose 200 MG; Start 04/12/16 at 21:00 Senna (Senokot) 1 tab QHS GTB Last administered on 05/05/16 21:20; Admin Dose 1 TAB; Start 04/12/16 at 21:00 Sodium Biphosphate/ Sodium Phosphate (Fleet Enema Pediatric) 66.6 ml DAILY PRN [place] CONSTIPATION; Start 04/11/16 at 22:30 Thiamine HCl (Vitamin B1) 100 mg DAILY GTB Last administered on 05/05/16 09:37 ; Admin Dose 100 MG; Start 04/12/16 at 09:00 Calcium Carbonate (Tums) 500 mg DAILY GTB Last administered on 05/05/16 09:53 ; Admin Dose 500 MG; Start 04/12/16 at 09:00 Multivitamins/ Minerals (Theragran-M) 1 tab DAILY PO Last administered on 09:37; Admin Dose 1 TAB; Start 04/12/16 at 09:00 Hydralazine HCl (Apresoline) 10 mg Q6H PRN IV SBP >160 Last administered on 00:49; Admin Dose 10 MG; Start 04/12/16 at 12:30 Famotidine (Pepcid) 20 mg Q12 GTB Last administered on 05/05/16 21:21; Admin Dose 20 MG; Start 04/19/16 at 21:00 Lorazepam (Ativan) 1 mg Q4 PRN IV AGITATION/ANXIETY Last administered on 04:54; Admin Dose 1 MG; Start 04/24/16 at 21:00 Clonidine 0.1 mg 0.1 mg Q6H PRN PO ELEVATED BLOOD PRESSURE; Start 04/24/16 at 23 :30 Dextrose/Sodium Chloride (D5-1/2ns) 1,000 ml @ 60 mls/hr [id number] IV Last administered on 05/06/16 21:15; Admin Dose 60 MLS/HR; Start 04/26/16 at 11:30 Metoprolol Tartrate (Lopressor) 5 mg Q4H PRN IV PRN HR>110 Hold SBP<100; Start 04/28/16 at 13:30 Metoprolol Tartrate (Lopressor) 25 mg BID PO Last administered on 04/29/16 21: 29; Admin Dose 25 MG; Start 04/29/16 at 21:00; Status Future Hold Lorazepam (Ativan) 1 mg Q6 GTB Last administered on 05/05/16 18:55; Admin Dose 1 MG; Start 05/02/16 at 00:00 Aspirin 81 mg 81 mg DAILY PO Last administered on 05/05/16 09:37; Admin Dose 81 MG; Start 05/02/16 at 14:30 Cefepime HCl (Maxipime 1gm/50 ml (Pmx)) 50 ml @ 100 mls/hr Q12 IVPB Last administered on 05/07/16 09:58; Admin Dose 100 MLS/HR; Start 05/03/16 at 10:00 Chlordiazepoxide (Librium) 10 mg TID PO Last administered on 05/05/16 21:21; Admin Dose 10 MG; Start 05/04/16 at 09:00 Acetaminophen (Tylenol Liquid) 650 mg Q6H PRN GTB FEVER >101; Start 05/06/16 at 11:30 Furosemide (Lasix) 20 mg BID IV Last administered on 05/07/16 09:38; Admin Dose 20 MG; Start 05/06/16 at 21:00 Miscellaneous Information VANCO TROUGH @ 1,100 ON... ONCE ONCE XX ; Start at 11:00; Stop 05/08/16 at 11:01 Vancomycin HCl (Vancocin) 100 ml @ 100 mls/hr Q12H IVPB ; Start 05/08/16 at 00: 00 LILI BRADEN 17, 2017 17:36
--- NOTE | 2016-05-07 18:44 | PN ---
Date/Time of Note Date/Time of Note DATE: 05/07/16 TIME: 18:41 Assessment/Plan VTE Prophylaxis VTE Prophylaxis Intervention: SCD's Lines/Catheters IV [facility] Type [facility] PICC Line Central line still needed: Yes Urinary Cath still in place: Yes Reason Cath still needed: urinary retention Assessment/Plan Chief Complaint/Hosp Course ASSESSMENT AND PLAN: -Bleeding from tracheostomy site, resolving, pending ENT consult. Dr. Cecilia esquivel is aware. -Pancytopenia. Dr Gaona is following in hematology consultation. -Coagulopathy, status post vitamin K, Lovenox is held - NSTEMI, continue aspirin and Lovenox. Dr. Espitia is following patient in cardiology consultation. - Atrial fibrillation with rapid ventricular response. Continue metoprolol. Continue telemetry monitoring. - Bilateral pleural effusions, status post right sided thoracentesis, pending thoracentesis of the left side. - Acute hypoxic respiratory failure. Dr. Anderson is following in pulmonology consultation. Continue ventilatory support and bronchodilators. - Possible healthcare-acquired left lower lung pneumonia versus aspiration. Continue antibiotics per ID. Dr. Rojas is following an infection disease consultation. - E. coli ESBL urinary tract infection, status post treatment. - Sepsis with Ecoli ESBL bacteremia 2 UTI, resolved. - Dysphagia, with G-tube. Status post G-tube removal by patient. Patient passed swallow eval and was started on pured diet. Patient tolerates pured diet well. - History of chronic respiratory failure with tracheostomy. - Benign prostatic hypertrophy. - Schizoaffective disorder. Continue Seroquel and Ativan as needed for agitation. Continue Lovenox for deep venous thrombosis prophylaxis and Pepcid for peptic ulcer disease prophylaxis. Further recommendations based on clinical course. Plan of care discussed with Dr. Colunga. Problems: Subjective 24 Hr Interval Summary Free Text/Dictation Patient's continues on supplemental oxygen via tracheostomy, no fever, patient' s pulled out NG tube earlier, continue IV fluids, Dr Vegas is contacted for possible G-tube placement Exam/Review of Systems Vital Signs Vitals Vital Signs Date Time Temp Pulse Resp B/P Pulse Ox O2 Delivery O2 Flow Rate FiO2 05/07/16 17:05 65 14 98 35 05/07/16 16:19 98.6 168/80 05/07/16 06:04 Mechanical Ventilator Intake and Output 05/06/16 05/06/16 05/07/16 15:00 23:00 07:00 Intake Total 1050 ml 700 ml Output Total 600 ml 800 ml 800 ml Balance -600 ml 250 ml -100 ml Exam GENERAL: A well-developed, cachectic gentleman, on ventilatory support via tracheostomy. HEENT: Head is atraumatic, normocephalic. LYDIA. NECK: Supple, with tracheostomy at the base of the neck. LUNGS: Diminished at the bases. Patient has scattered severe rhonchi bilaterally. CARDIOVASCULAR: Normal S1, S2. No murmurs, gallops, clicks, rubs noted. ABDOMEN: Flat, soft, nondistended, nontender. Bowel sounds present. Patient has a G-tube with intact stoma. EXTREMITIES: Contractured. There is no edema, clubbing, cyanosis. Pulses equal bilaterally, 2+. SKIN: There is no rash, petechiae noted. NEUROLOGIC: Awake alert, with intermittent periods of confusion Results Result Diagram: 05/07/16 0640 05/06/16 0445 Results 24 hrs Laboratory Tests Test 05/07/16 06:40 Basophils # 0.0 Basophils % 0.8 Eosinophils # 0.1 Eosinophils % 1.9 Hematocrit 31.2 L Hemoglobin 10.0 L Lymphocytes # 0.9 Lymphocytes % 24.1 Mean Corpuscular Hemoglobin 27.7 L Mean Corpuscular Hemoglobin Concent 32.1 Mean Corpuscular Volume 86.4 Mean Platelet Volume 12.1 H Monocytes # 0.4 Monocytes % 11.7 H Neutrophils # 2.3 Neutrophils % 61.5 Nucleated Red Blood Cells # 0.0 Nucleated Red Blood Cells % 0.0 Platelet Count 111 #L Red Blood Count 3.61 L Red Cell Distribution Width 17.2 H White Blood Count 3.7 L Medications Medications Current Medications Ondansetron HCl (Zofran Inj) 4 mg Q6H PRN IV NAUSEA AND/OR VOMITING Last administered on 04/24/16 21:00; Admin Dose 4 MG; Start 04/11/16 at 22:30 Acetaminophen (Tylenol Tab) 650 mg Q6H PRN PO PAIN LEVEL 1-3 OR FEVER; Start at 22:30 Morphine Sulfate (morphine) 2 mg Q4H PRN IV PAIN LEVEL 7-10 Last administered on 05/04/16 03:01; Admin Dose 2 MG; Start 04/11/16 at 22:30 Ascorbic Acid (Vitamin C) 500 mg DAILY GTB Last administered on 05/05/16 09:37 ; Admin Dose 500 MG; Start 04/12/16 at 09:00 Bisacodyl (Dulcolax) 10 mg DAILY PRN PO CONSTIPATION; Start 04/11/16 at 22:30 Chlorhexidine Gluconate (Peridex) 15 ml BID MM Last administered on 05/07/16 09:33; Admin Dose 15 ML; Start 04/12/16 at 09:00 Ferrous Sulfate (Feosol Liquid Cup) 300 mg BID GTB Last administered on 21:20; Admin Dose 300 MG; Start 04/12/16 at 09:00 Acetaminophen/ Hydrocodone Bitart ([place] (5/325)) 1 tab Q4 PRN GTB PAIN LEVEL 6 -10; Start 04/11/16 at 22:30 Lactulose (Enulose) 20 gm DAILY GTB Last administered on 05/05/16 09:37; Admin Dose 20 GM; Start 04/12/16 at 09:00 Quetiapine Fumarate (Seroquel) 25 mg BID@ GTB Last administered on 10:00; Admin Dose 25 MG; Start 04/12/16 at 09:00 Quetiapine Fumarate (Seroquel) 200 mg HS GTB Last administered on 05/05/16 21: 20; Admin Dose 200 MG; Start 04/12/16 at 21:00 Senna (Senokot) 1 tab QHS GTB Last administered on 05/05/16 21:20; Admin Dose 1 TAB; Start 04/12/16 at 21:00 Sodium Biphosphate/ Sodium Phosphate (Fleet Enema Pediatric) 66.6 ml DAILY PRN [place] CONSTIPATION; Start 04/11/16 at 22:30 Thiamine HCl (Vitamin B1) 100 mg DAILY GTB Last administered on 05/05/16 09:37 ; Admin Dose 100 MG; Start 04/12/16 at 09:00 Calcium Carbonate (Tums) 500 mg DAILY GTB Last administered on 05/05/16 09:53 ; Admin Dose 500 MG; Start 04/12/16 at 09:00 Multivitamins/ Minerals (Theragran-M) 1 tab DAILY PO Last administered on 09:37; Admin Dose 1 TAB; Start 04/12/16 at 09:00 Hydralazine HCl (Apresoline) 10 mg Q6H PRN IV SBP >160 Last administered on 00:49; Admin Dose 10 MG; Start 04/12/16 at 12:30 Famotidine (Pepcid) 20 mg Q12 GTB Last administered on 05/05/16 21:21; Admin Dose 20 MG; Start 04/19/16 at 21:00 Lorazepam (Ativan) 1 mg Q4 PRN IV AGITATION/ANXIETY Last administered on 04:54; Admin Dose 1 MG; Start 04/24/16 at 21:00 Clonidine 0.1 mg 0.1 mg Q6H PRN PO ELEVATED BLOOD PRESSURE; Start 04/24/16 at 23 :30 Dextrose/Sodium Chloride (D5-1/2ns) 1,000 ml @ 60 mls/hr Q10T14L IV Last administered on 05/06/16 21:15; Admin Dose 60 MLS/HR; Start 04/26/16 at 11:30 Metoprolol Tartrate (Lopressor) 5 mg Q4H PRN IV PRN HR>110 Hold SBP<100; Start 04/28/16 at 13:30 Metoprolol Tartrate (Lopressor) 25 mg BID PO Last administered on 04/29/16 21: 29; Admin Dose 25 MG; Start 04/29/16 at 21:00; Status Future Hold Lorazepam (Ativan) 1 mg Q6 GTB Last administered on 05/05/16 18:55; Admin Dose 1 MG; Start 05/02/16 at 00:00 Aspirin 81 mg 81 mg DAILY PO Last administered on 05/05/16 09:37; Admin Dose 81 MG; Start 05/02/16 at 14:30 Cefepime HCl (Maxipime 1gm/50 ml (Pmx)) 50 ml @ 100 mls/hr Q12 IVPB Last administered on 05/07/16 09:58; Admin Dose 100 MLS/HR; Start 05/03/16 at 10:00 Chlordiazepoxide (Librium) 10 mg TID PO Last administered on 05/05/16 21:21; Admin Dose 10 MG; Start 05/04/16 at 09:00 Acetaminophen (Tylenol Liquid) 650 mg Q6H PRN GTB FEVER >101; Start 05/06/16 at 11:30 Furosemide (Lasix) 20 mg BID IV Last administered on 05/07/16t 09:38; Admin Dose 20 MG; Start 05/06/16 at 21:00 Miscellaneous Information VANCO TROUGH @ 1,100 ON... ONCE ONCE XX ; Start at 11:00; Stop 05/08/16 at 11:01 Vancomycin HCl (Vancocin) 100 ml @ 100 mls/hr Q12H IVPB ; Start 05/08/16 at 00: 00 SHELBY BUNCH May 07, 2016 18:44
[2016-05-07] MEDS: SENNA TAB GTB SCH (19:47)
[2016-05-07] MEDS: QUETIAPINE 100 MG TAB GTB SCH (19:47)
[2016-05-07] MEDS: morphine 2 MG INJ IV PRN (20:33)
[2016-05-08] VITALS (26 sets, daily range): BP systolic 116–186; BP diastolic 50–98; PULSE 60–81; RESP 14–26
[2016-05-08] MEDS: VANCOMYCIN 500MG/NS (PMX) 100 ML IVPB SCH ×2 (00:23→12:09)
[2016-05-08] MEDS: LORAZEPAM 2 MG INJ IV PRN (00:24)
[2016-05-08] MEDS: IPRATROPIUM (HFA) 12.9 GM INHALER INH SCH ×4 (01:03→21:08)
[2016-05-08] MEDS: ALBUTEROL HFA 8 GM INHALER INH SCH ×4 (01:03→21:08)
[2016-05-08] MEDS: DEXTROSE 5%-0.45% NACL 1,000 ML IV SCH ×2 (04:56→23:07)
[2016-05-08 06:27] LABS: ADD SCAN DIFF NO
[2016-05-08 06:55] LABS: BASOPHILS % 0.7 % (0.0-2.0); EOSINOPHILS # 0.1 10^3/ul (0.0-0.5); EOSINOPHILS % 1.5 % (0.0-7.0); HEMATOCRIT 31.9 % (42.0-52.0); HEMOGLOBIN 10.3 g/dl (14.0-18.0); LYMPHOCYTES % 25.6 % (15.0-51.0); MEAN CORPUSCULAR HEMOGLOBIN 27.5 pg (29.0-33.0); MEAN CORPUSCULAR HGB CONC 32.3 g/dl (32.0-37.0); MEAN CORPUSCULAR VOLUME 85.3 fl (82.0-101.0); MEAN PLATELET VOLUME 11.3 fl (7.4-10.4); MONOCYTE # 0.5 10^3/ul (0.3-0.9); MONOCYTES % 12.9 % (0.0-11.0); NEUTROPHIL # 2.4 10^3/ul (1.6-7.5); NEUTROPHILS % 59.1 % (39.0-77.0); PLATELET COUNT 110 10^3/UL (140-415); RED BLOOD COUNT 3.74 10^6/ul (4.70-6.10); RED CELL DISTRIBUTION WIDTH 17.3 % (11.5-14.5)
[2016-05-08 07:01] LABS: POTASSIUM 3.1 mmol/L (3.5-5.1)
[2016-05-08 07:04] LABS: CREATININE 0.5 mg/dl (0.61-1.24)
[2016-05-08 07:05] LABS: CALCIUM 8.3 mg/dl (8.4-10.2)
[2016-05-08] MEDS: LACTULOSE 30ML CUP GTB SCH (08:53)
[2016-05-08] MEDS: FERROUS SULFATE 60 MG/ML 5ML CUP GTB SCH ×2 (08:53→20:53)
[2016-05-08] MEDS: ASCORBIC ACID 500 MG TAB GTB SCH (08:54)
[2016-05-08] MEDS: QUETIAPINE 25 MG TAB GTB SCH ×2 (08:54→16:41)
[2016-05-08] MEDS: CALCIUM CARBONATE 500 MG CHEW TAB GTB SCH (08:54)
[2016-05-08] MEDS: THIAMINE 100 MG TAB GTB SCH (08:54)
[2016-05-08] MEDS: FAMOTIDINE 20 MG TAB GTB SCH ×2 (08:54→20:53)
[2016-05-08] MEDS: MULTIVITAMINS/MINERALS TAB PO SCH (08:54)
[2016-05-08] MEDS: CHLORDIAZEPOXIDE 5 MG CAP PO SCH ×3 (08:54→20:53)
[2016-05-08] MEDS: ASPIRIN 81 MG TAB PO SCH (08:54)
[2016-05-08] MEDS: CEFEPIME 1GM/50 ML (PMX) 50 ML IVPB SCH ×2 (10:00→20:21)
[2016-05-08] MEDS: FUROSEMIDE 20 MG INJ IV SCH ×2 (10:00→20:22)
[2016-05-08] MEDS: CHLORHEXIDINE GLUCONATE 15 ML UD CUP MM SCH ×2 (10:00→20:52)
[2016-05-08] MEDS: LORAZEPAM 1 MG TAB GTB SCH ×2 (12:00→17:05)
--- NOTE | 2016-05-08 12:05 | PN ---
Date/Time of Note Date/Time of Note DATE: 05/08/16 TIME: 12:04 Assessment/Plan VTE Prophylaxis VTE Prophylaxis Intervention: other Lines/Catheters IV Catheter Type (from Nrs): PICC Line Central line still needed: Yes Urinary Cath still in place: Yes Reason Cath still needed: skin wounds contaminated by urine Assessment/Plan Chief Complaint/Hosp Course - Bleeding from tracheostomy site, resolving, pending ENT consult. Dr. Cecilia esquivel is aware. - Pancytopenia. Dr Gaona is following in hematology consultation. - Coagulopathy, status post vitamin K, Lovenox is held - NSTEMI, continue aspirin and Lovenox. Dr. Espitia is following patient in cardiology consultation. - Atrial fibrillation with rapid ventricular response. Continue metoprolol. Continue telemetry monitoring. - Bilateral pleural effusions, status post right sided thoracentesis, pending thoracentesis of the left side. - Acute hypoxic respiratory failure. Dr. Anderson is following in pulmonology consultation. Continue ventilatory support and bronchodilators. - Possible healthcare-acquired left lower lung pneumonia versus aspiration. Continue antibiotics per ID. Dr. Rojas is following an infection disease consultation. - E. coli ESBL urinary tract infection, status post treatment. - Sepsis with Ecoli ESBL bacteremia 2 UTI, resolved. - Dysphagia, with G-tube. Status post G-tube removal by patient. Patient passed swallow eval and was started on pured diet. Patient tolerates pured diet well. - History of chronic respiratory failure with tracheostomy. - Benign prostatic hypertrophy. - Schizoaffective disorder. Continue Seroquel and Ativan as needed for agitation. Problems: Subjective 24 Hr Interval Summary Free Text/Dictation Patient is doing well, unable to verbalize secondary to trach Exam/Review of Systems Vital Signs Vitals Vital Signs Date Time Temp Pulse Resp B/P Pulse Ox O2 Delivery O2 Flow Rate FiO2 05/08/16 11:56 98.3 66 18 186/95 96 05/08/16 11:06 35 05/08/16 02:14 Mechanical Ventilator Intake and Output 05/07/16 05/07/16 05/08/16 15:00 23:00 07:00 Intake Total 720 ml 1270 ml Output Total 1800 ml Balance -1080 ml 1270 ml Exam Constitutional: frail Head: atraumatic, normocephalic Neck: supple Respiratory: diminished breath sounds Cardiovascular: regular rate and rhythm Gastrointestinal: non-tender, soft Extremities: normal pulses Results Result Diagram: 05/08/16 0543 05/08/16 0543 Results 24 hrs Laboratory Tests Test 05/08/16 05:43 05/08/16 11:05 Anion Gap 12 Basophils # 0.0 Basophils % 0.7 Blood Urea Nitrogen 13 Calcium Level 8.3 L Carbon Dioxide Level 36 H Chloride Level 94 L Creatinine 0.50 L Eosinophils # 0.1 Eosinophils % 1.5 Glucose Level 68 L Hematocrit 31.9 L Hemoglobin 10.3 L Lymphocytes # 1.0 Lymphocytes % 25.6 Mean Corpuscular Hemoglobin 27.5 L Mean Corpuscular Hemoglobin Concent 32.3 Mean Corpuscular Volume 85.3 Mean Platelet Volume 11.3 H Monocytes # 0.5 Monocytes % 12.9 H Neutrophils # 2.4 Neutrophils % 59.1 Nucleated Red Blood Cells # 0.0 Nucleated Red Blood Cells % 0.0 Platelet Count 110 L Potassium Level 3.1 L Red Blood Count 3.74 L Red Cell Distribution Width 17.3 H Sodium Level 139 White Blood Count 4.0 L Vancomycin Level Trough 16.0 Medications Medications Current Medications Ondansetron HCl (Zofran Inj) 4 mg Q6H PRN IV NAUSEA AND/OR VOMITING Last administered on 04/24/16 21:00; Admin Dose 4 MG; Start 04/11/16 at 22:30 Acetaminophen (Tylenol Tab) 650 mg Q6H PRN PO PAIN LEVEL 1-3 OR FEVER; Start at 22:30 Morphine Sulfate (morphine) 2 mg Q4H PRN IV PAIN LEVEL 7-10 Last administered on 05/07/16 20:33; Admin Dose 2 MG; Start 04/11/16 at 22:30 Ascorbic Acid (Vitamin C) 500 mg DAILY GTB Last administered on 05/05/16 09:37 ; Admin Dose 500 MG; Start 04/12/16 at 09:00 Bisacodyl (Dulcolax) 10 mg DAILY PRN PO CONSTIPATION; Start 04/11/16 at 22:30 Chlorhexidine Gluconate (Peridex) 15 ml BID MM Last administered on 05/08/16 10:00; Admin Dose 15 ML; Start 04/12/16 at 09:00 Ferrous Sulfate (Feosol Liquid Cup) 300 mg BID GTB Last administered on 21:20; Admin Dose 300 MG; Start 04/12/16 at 09:00 Acetaminophen/ Hydrocodone Bitart ([place] (5/325)) 1 tab Q4 PRN GTB PAIN LEVEL 6 -10; Start 04/11/16 at 22:30 Lactulose (Enulose) 20 gm DAILY GTB Last administered on 05/05/16 09:37; Admin Dose 20 GM; Start 04/12/16 at 09:00 Quetiapine Fumarate (Seroquel) 25 mg BID@ GTB Last administered on 10:00; Admin Dose 25 MG; Start 04/12/16 at 09:00 Quetiapine Fumarate (Seroquel) 200 mg HS GTB Last administered on 05/05/16 21: 20; Admin Dose 200 MG; Start 04/12/16 at 21:00 Senna (Senokot) 1 tab QHS GTB Last administered on 05/05/16 21:20; Admin Dose 1 TAB; Start 04/12/16 at 21:00 Sodium Biphosphate/ Sodium Phosphate (Fleet Enema Pediatric) 66.6 ml DAILY PRN [place] CONSTIPATION; Start 04/11/16 at 22:30 Thiamine HCl (Vitamin B1) 100 mg DAILY GTB Last administered on 05/05/16 09:37 ; Admin Dose 100 MG; Start 04/12/16 at 09:00 Calcium Carbonate (Tums) 500 mg DAILY GTB Last administered on 05/05/16 09:53 ; Admin Dose 500 MG; Start 04/12/16 at 09:00 Multivitamins/ Minerals (Theragran-M) 1 tab DAILY PO Last administered on 09:37; Admin Dose 1 TAB; Start 04/12/16 at 09:00 Hydralazine HCl (Apresoline) 10 mg Q6H PRN IV SBP >160 Last administered on 00:49; Admin Dose 10 MG; Start 04/12/16 at 12:30 Famotidine (Pepcid) 20 mg Q12 GTB Last administered on 05/05/16 21:21; Admin Dose 20 MG; Start 04/19/16 at 21:00 Lorazepam (Ativan) 1 mg Q4 PRN IV AGITATION/ANXIETY Last administered on 00:24; Admin Dose 1 MG; Start 04/24/16 at 21:00 Clonidine 0.1 mg 0.1 mg Q6H PRN PO ELEVATED BLOOD PRESSURE; Start 04/24/16 at 23 :30 Dextrose/Sodium Chloride (D5-1/2ns) 1,000 ml @ 60 mls/hr [id number] IV Last administered on 05/08/16 04:56; Admin Dose 60 MLS/HR; Start 04/26/16 at 11:30 Metoprolol Tartrate (Lopressor) 5 mg Q4H PRN IV PRN HR>110 Hold SBP<100; Start 04/28/16 at 13:30 Metoprolol Tartrate (Lopressor) 25 mg BID PO Last administered on 04/29/16 21: 29; Admin Dose 25 MG; Start 04/29/16 at 21:00; Status Future Hold Lorazepam (Ativan) 1 mg Q6 GTB Last administered on 05/05/16 18:55; Admin Dose 1 MG; Start 05/02/16 at 00:00 Aspirin 81 mg 81 mg DAILY PO Last administered on 05/05/16 09:37; Admin Dose 81 MG; Start 05/02/16 at 14:30 Cefepime HCl (Maxipime 1gm/50 ml (Pmx)) 50 ml @ 100 mls/hr Q12 IVPB Last administered on 05/08/16 10:00; Admin Dose 100 MLS/HR; Start 05/03/16 at 10:00 Chlordiazepoxide (Librium) 10 mg TID PO Last administered on 05/05/16 21:21; Admin Dose 10 MG; Start 05/04/16 at 09:00 Acetaminophen (Tylenol Liquid) 650 mg Q6H PRN GTB FEVER >101; Start 05/06/16 at 11:30 Furosemide 20 mg 20 mg BID IV Last administered on 05/08/16 10:00; Admin Dose 20 MG; Start 05/06/16 at 21:00 Vancomycin HCl (Vancocin) 100 ml @ 100 mls/hr Q12H IVPB Last administered on 00:23; Admin Dose 100 MLS/HR; Start 05/08/16 at 00:00 NEELAM RIBERA 18, 2017 12:05
[2016-05-08] MEDS: hydrALAzine 20 MG INJ IV PRN (12:06)
--- NOTE | 2016-05-08 13:26 | CONS ---
Date/Time of Note Date/Time of Note DATE: 05/08/16 TIME: 13:24 Assessment/Plan Assessment/Plan Additional Assessment/Plan 1. Wide complex tachycardia, cardiac arrhythmia. Rule out nonsustained ventricular tachycardia.-likely c/w abberant AF-no recurrence - IN SINUS NOW 2. Abnormal electrocardiogram, assess for acute coronary syndrome- no intervention planned 3. Congestive heart failure by chest x-ray, diastolic by most recent echo acute on chronic. 4. Hypertension - BP high now - will adjust Rx as needed 5. Respiratory failure, chronic, status post tracheostomy with recurrent desats 6. Dysphagia, status post G-tube. 7. Psychiatric disorder. 8. Urinary tract infection- on anti-bx 9. Hypokalemia-improved 10. Anemia. 11. Leukopenia. 12.Nstemi-no current chest pain/decreased enzymes 14. Bradycardia-improved Consultation Date/Type/Reason Admit Date/Time Apr 11, 2016 at 22:13 Initial Consult Date 04/21/16 Type of Consultation: Cardiology Referring Provider: ANNETTA AGUILAR MD 24 HR Interval Summary Free Text/Dictation No acute events - stable o2 sat - in sinus - con't resp Rx ROS: No fever, no chills, no nausea, no vomiting, no diarrhea/constipation No recent weight changes No chest pain, no PND, no orthopnea No dizziness, blurred vision No thirst, no heat or cold intolerance (per nurse) Exam/Review of Systems Vital Signs Vitals Vital Signs Date Time Temp Pulse Resp B/P Pulse Ox O2 Delivery O2 Flow Rate FiO2 05/08/16 12:50 60 05/08/16 11:56 98.3 18 186/95 96 05/08/16 11:06 35 05/08/16 02:14 Mechanical Ventilator Intake and Output 05/07/16 05/07/16 05/08/16 15:00 23:00 07:00 Intake Total 720 ml 1270 ml Output Total 1800 ml Balance -1080 ml 1270 ml Exam General: WN/WD/NAD, AOx 0 HEENT: Unicetric/atraumatic/EOMI (does not follow commands) NECK: JVD elevated, no thyromegaly, trach Lymph: no lymphadenopathy HEART: regular with no S3, II/ systolic murmur at apex LUNGS: Coarse sounds ABD: soft, NT, ND, +BS : Intact Neuro: non focal SKIN: chronic changes EXT: trace edema Results Result Diagram: 05/08/16 0543 05/08/16 0543 Results 24 hrs Laboratory Tests Test 05/08/16 05:43 05/08/16 11:05 Anion Gap 12 Basophils # 0.0 Basophils % 0.7 Blood Urea Nitrogen 13 Calcium Level 8.3 L Carbon Dioxide Level 36 H Chloride Level 94 L Creatinine 0.50 L Eosinophils # 0.1 Eosinophils % 1.5 Glucose Level 68 L Hematocrit 31.9 L Hemoglobin 10.3 L Lymphocytes # 1.0 Lymphocytes % 25.6 Mean Corpuscular Hemoglobin 27.5 L Mean Corpuscular Hemoglobin Concent 32.3 Mean Corpuscular Volume 85.3 Mean Platelet Volume 11.3 H Monocytes # 0.5 Monocytes % 12.9 H Neutrophils # 2.4 Neutrophils % 59.1 Nucleated Red Blood Cells # 0.0 Nucleated Red Blood Cells % 0.0 Platelet Count 110 L Potassium Level 3.1 L Red Blood Count 3.74 L Red Cell Distribution Width 17.3 H Sodium Level 139 White Blood Count 4.0 L Vancomycin Level Trough 16.0 Medications Medications Current Medications Ondansetron HCl (Zofran Inj) 4 mg Q6H PRN IV NAUSEA AND/OR VOMITING Last administered on 04/24/16 21:00; Admin Dose 4 MG; Start 04/11/16 at 22:30 Acetaminophen (Tylenol Tab) 650 mg Q6H PRN PO PAIN LEVEL 1-3 OR FEVER; Start at 22:30 Morphine Sulfate (morphine) 2 mg Q4H PRN IV PAIN LEVEL 7-10 Last administered on 05/07/16 20:33; Admin Dose 2 MG; Start 04/11/16 at 22:30 Ascorbic Acid (Vitamin C) 500 mg DAILY GTB Last administered on 05/05/16 09:37 ; Admin Dose 500 MG; Start 04/12/16 at 09:00 Bisacodyl (Dulcolax) 10 mg DAILY PRN PO CONSTIPATION; Start 04/11/16 at 22:30 Chlorhexidine Gluconate (Peridex) 15 ml BID MM Last administered on 05/08/16 10:00; Admin Dose 15 ML; Start 04/12/16 at 09:00 Ferrous Sulfate (Feosol Liquid Cup) 300 mg BID GTB Last administered on 21:20; Admin Dose 300 MG; Start 04/12/16 at 09:00 Acetaminophen/ Hydrocodone Bitart ([place] (5/325)) 1 tab Q4 PRN GTB PAIN LEVEL 6 -10; Start 04/11/16 at 22:30 Lactulose (Enulose) 20 gm DAILY GTB Last administered on 05/05/16 09:37; Admin Dose 20 GM; Start 04/12/16 at 09:00 Quetiapine Fumarate (Seroquel) 25 mg BID@ GTB Last administered on 10:00; Admin Dose 25 MG; Start 04/12/16 at 09:00 Quetiapine Fumarate (Seroquel) 200 mg HS GTB Last administered on 05/05/16 21: 20; Admin Dose 200 MG; Start 04/12/16 at 21:00 Senna (Senokot) 1 tab QHS GTB Last administered on 05/05/16 21:20; Admin Dose 1 TAB; Start 04/12/16 at 21:00 Sodium Biphosphate/ Sodium Phosphate (Fleet Enema Pediatric) 66.6 ml DAILY PRN [place] CONSTIPATION; Start 04/11/16 at 22:30 Thiamine HCl (Vitamin B1) 100 mg DAILY GTB Last administered on 05/05/16 09:37 ; Admin Dose 100 MG; Start 04/12/16 at 09:00 Calcium Carbonate (Tums) 500 mg DAILY GTB Last administered on 05/05/16 09:53 ; Admin Dose 500 MG; Start 04/12/16 at 09:00 Multivitamins/ Minerals (Theragran-M) 1 tab DAILY PO Last administered on 09:37; Admin Dose 1 TAB; Start 04/12/16 at 09:00 Hydralazine HCl (Apresoline) 10 mg Q6H PRN IV SBP >160 Last administered on 12:06; Admin Dose 10 MG; Start 04/12/16 at 12:30 Famotidine (Pepcid) 20 mg Q12 GTB Last administered on 05/05/16 21:21; Admin Dose 20 MG; Start 04/19/16 at 21:00 Lorazepam (Ativan) 1 mg Q4 PRN IV AGITATION/ANXIETY Last administered on 00:24; Admin Dose 1 MG; Start 04/24/16 at 21:00 Clonidine 0.1 mg 0.1 mg Q6H PRN PO ELEVATED BLOOD PRESSURE; Start 04/24/16 at 23 :30 Dextrose/Sodium Chloride (D5-1/2ns) 1,000 ml @ 60 mls/hr [id number] IV Last administered on 05/08/16 04:56; Admin Dose 60 MLS/HR; Start 04/26/16 at 11:30 Metoprolol Tartrate (Lopressor) 5 mg Q4H PRN IV PRN HR>110 Hold SBP<100; Start 04/28/16 at 13:30 Metoprolol Tartrate (Lopressor) 25 mg BID PO Last administered on 04/29/16 21: 29; Admin Dose 25 MG; Start 04/29/16 at 21:00; Status Future Hold Lorazepam (Ativan) 1 mg Q6 GTB Last administered on 05/05/16 18:55; Admin Dose 1 MG; Start 05/02/16 at 00:00 Aspirin 81 mg 81 mg DAILY PO Last administered on 05/05/16 09:37; Admin Dose 81 MG; Start 05/02/16 at 14:30 Cefepime HCl (Maxipime 1gm/50 ml (Pmx)) 50 ml @ 100 mls/hr Q12 IVPB Last administered on 05/08/16 10:00; Admin Dose 100 MLS/HR; Start 05/03/16 at 10:00 Chlordiazepoxide (Librium) 10 mg TID PO Last administered on 05/05/16 21:21; Admin Dose 10 MG; Start 05/04/16 at 09:00 Acetaminophen (Tylenol Liquid) 650 mg Q6H PRN GTB FEVER >101; Start 05/06/16 at 11:30 Furosemide 20 mg 20 mg BID IV Last administered on 05/08/16 10:00; Admin Dose 20 MG; Start 05/06/16 at 21:00 Vancomycin HCl (Vancocin) 100 ml @ 100 mls/hr Q12H IVPB Last administered on 12:09; Admin Dose 100 MLS/HR; Start 05/08/16 at 00:00 MOSHE GARCÍA MD May 08, 2016 13:26
--- NOTE | 2016-05-08 13:57 | PN ---
DATE: 05/08/2016 PULMONARY FOLLOWUP SUBJECTIVE: Mariama Ford is relatively stable this morning. VITAL SIGNS: Temperature 98, pulse is 60, blood pressure 186/95, O2 saturation 95% on 35% FIO2. NECK: Trach site clean and intact. CARDIAC: S1, S2, no added sounds or murmurs. CHEST: Diminished air entry bilaterally. ABDOMEN: Soft, nontender. No guarding or rebound. EXTREMITIES: No cyanosis, clubbing, 1+ edema. NEUROLOGIC: Generalized weakness. LABORATORY DATA: White count 4, hemoglobin 10.3, platelets of 110. BUN 15, creatinine 0.5. PTT 51 . IMPRESSION: 1. Chronic hypoxemic respiratory failure. 2. Trach site bleeding. 3. Escherichia coli urinary tract infection. 4. Ongoing bilateral pleural effusions secondary to low albumin state. 5. Schizoaffective disorder. PLAN: 1. Continue wound care. 2. Continue tube feeding. 3. Aspiration precautions. 4. Fall precautions. 5. Consider palliative care consultation. Dictated By: MARISOL STEVENS/DAVID Conf#: [id number] DID#: [id number]
--- NOTE | 2016-05-08 14:57 | CONS ---
Date/Time of Note Date/Time of Note DATE: 05/08/16 TIME: 14:52 Assessment/Plan Assessment/Plan Chief Complaint/Hosp Course plan peg Problems: Additional Assessment/Plan a] dysphagia malnutrition Consultation Date/Type/Reason Admit Date/Time Apr 11, 2016 at 22:13 Hx of Present Illness as above peg requested h/o dysphagia peg requested pulled out g tube \cannot be reinserted has bresp mfailurev has trach and vent Constitutional: requiring O2 Eyes: no complaints ENT: no complaints Respiratory: shortness of breath Cardiovascular: no complaints Gastrointestinal: no complaints Genitourinary: no complaints Musculoskeletal: no complaints Skin: no complaints Neurologic: no complaints Endocrine: no complaints Psychological: confusion Immunologic: no complaints Additional Comments pe pt alert s/p trach and vent heart nsr v lungs clear abd soft old g t site noted Social History Alcohol Use: none Smoking Status: Former smoker Drug Use: none Exam/Review of Systems Vital Signs Vitals Vital Signs Date Time Temp Pulse Resp B/P Pulse Ox O2 Delivery O2 Flow Rate FiO2 05/08/16 13:30 76 14 97 35 05/08/16 11:56 98.3 186/95 05/08/16 02:14 Mechanical Ventilator Intake and Output 05/07/16 05/07/16 05/08/16 15:00 23:00 07:00 Intake Total 720 ml 1270 ml Output Total 1800 ml Balance -1080 ml 1270 ml Exam Constitutional: alert, oriented, well developed Psych: nl mood/affect, no complaints Head: atraumatic, normocephalic Eyes: EOMI, PERRL, nl conjunctiva, nl lids, nl sclera ENMT: nl external ears & nose, nl lips & teeth, nl nasal mucosa & septum Neck: non-tender, supple Respiratory: clear to auscultation, normal air movement Cardiovascular: nl pulses, regular rate and rhythm Gastrointestinal: nl liver, spleen, non-tender, soft Musculoskeletal: nl extremities to inspection, nl gait and stance Extremities: normal pulses Neurological: 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 intact, nl mental status, nl speech, nl strength Skin: nl turgor, No rash or lesions Lymph: nl lymph nodes Results pe see my notes Result Diagram: 05/08/16 0543 05/08/16 0543 Results 24 hrs Laboratory Tests Test 05/08/16 05:43 05/08/16 11:05 Anion Gap 12 Basophils # 0.0 Basophils % 0.7 Blood Urea Nitrogen 13 Calcium Level 8.3 L Carbon Dioxide Level 36 H Chloride Level 94 L Creatinine 0.50 L Eosinophils # 0.1 Eosinophils % 1.5 Glucose Level 68 L Hematocrit 31.9 L Hemoglobin 10.3 L Lymphocytes # 1.0 Lymphocytes % 25.6 Mean Corpuscular Hemoglobin 27.5 L Mean Corpuscular Hemoglobin Concent 32.3 Mean Corpuscular Volume 85.3 Mean Platelet Volume 11.3 H Monocytes # 0.5 Monocytes % 12.9 H Neutrophils # 2.4 Neutrophils % 59.1 Nucleated Red Blood Cells # 0.0 Nucleated Red Blood Cells % 0.0 Platelet Count 110 L Potassium Level 3.1 L Red Blood Count 3.74 L Red Cell Distribution Width 17.3 H Sodium Level 139 White Blood Count 4.0 L Vancomycin Level Trough 16.0 Medications Medications Current Medications Ondansetron HCl (Zofran Inj) 4 mg Q6H PRN IV NAUSEA AND/OR VOMITING Last administered on 04/24/16 21:00; Admin Dose 4 MG; Start 04/11/16 at 22:30 Acetaminophen (Tylenol Tab) 650 mg Q6H PRN PO PAIN LEVEL 1-3 OR FEVER; Start at 22:30 Morphine Sulfate (morphine) 2 mg Q4H PRN IV PAIN LEVEL 7-10 Last administered on 05/07/16 20:33; Admin Dose 2 MG; Start 04/11/16 at 22:30 Ascorbic Acid (Vitamin C) 500 mg DAILY GTB Last administered on 05/05/16 09:37 ; Admin Dose 500 MG; Start 04/12/16 at 09:00 Bisacodyl (Dulcolax) 10 mg DAILY PRN PO CONSTIPATION; Start 04/11/16 at 22:30 Chlorhexidine Gluconate (Peridex) 15 ml BID MM Last administered on 05/08/16 10:00; Admin Dose 15 ML; Start 04/12/16 at 09:00 Ferrous Sulfate (Feosol Liquid Cup) 300 mg BID GTB Last administered on 21:20; Admin Dose 300 MG; Start 04/12/16 at 09:00 Acetaminophen/ Hydrocodone Bitart ([place] (5/325)) 1 tab Q4 PRN GTB PAIN LEVEL 6 -10; Start 04/11/16 at 22:30 Lactulose (Enulose) 20 gm DAILY GTB Last administered on 05/05/16 09:37; Admin Dose 20 GM; Start 04/12/16 at 09:00 Quetiapine Fumarate (Seroquel) 25 mg BID@ GTB Last administered on 10:00; Admin Dose 25 MG; Start 04/12/16 at 09:00 Quetiapine Fumarate (Seroquel) 200 mg HS GTB Last administered on 05/05/16 21: 20; Admin Dose 200 MG; Start 04/12/16 at 21:00 Senna (Senokot) 1 tab QHS GTB Last administered on 05/05/16 21:20; Admin Dose 1 TAB; Start 04/12/16 at 21:00 Sodium Biphosphate/ Sodium Phosphate (Fleet Enema Pediatric) 66.6 ml DAILY PRN [place] CONSTIPATION; Start 04/11/16 at 22:30 Thiamine HCl (Vitamin B1) 100 mg DAILY GTB Last administered on 05/05/16 09:37 ; Admin Dose 100 MG; Start 04/12/16 at 09:00 Calcium Carbonate (Tums) 500 mg DAILY GTB Last administered on 05/05/16 09:53 ; Admin Dose 500 MG; Start 04/12/16 at 09:00 Multivitamins/ Minerals (Theragran-M) 1 tab DAILY PO Last administered on 09:37; Admin Dose 1 TAB; Start 04/12/16 at 09:00 Hydralazine HCl (Apresoline) 10 mg Q6H PRN IV SBP >160 Last administered on 12:06; Admin Dose 10 MG; Start 04/12/16 at 12:30 Famotidine (Pepcid) 20 mg Q12 GTB Last administered on 05/05/16 21:21; Admin Dose 20 MG; Start 04/19/16 at 21:00 Lorazepam (Ativan) 1 mg Q4 PRN IV AGITATION/ANXIETY Last administered on 00:24; Admin Dose 1 MG; Start 04/24/16 at 21:00 Clonidine 0.1 mg 0.1 mg Q6H PRN PO ELEVATED BLOOD PRESSURE; Start 04/24/16 at 23 :30 Dextrose/Sodium Chloride (D5-1/2ns) 1,000 ml @ 60 mls/hr [id number] IV Last administered on 05/08/16 04:56; Admin Dose 60 MLS/HR; Start 04/26/16 at 11:30 Metoprolol Tartrate (Lopressor) 5 mg Q4H PRN IV PRN HR>110 Hold SBP<100; Start 04/28/16 at 13:30 Metoprolol Tartrate (Lopressor) 25 mg BID PO Last administered on 04/29/16 21: 29; Admin Dose 25 MG; Start 04/29/16 at 21:00; Status Future Hold Lorazepam (Ativan) 1 mg Q6 GTB Last administered on 05/05/16 18:55; Admin Dose 1 MG; Start 05/02/16 at 00:00 Aspirin 81 mg 81 mg DAILY PO Last administered on 05/05/16 09:37; Admin Dose 81 MG; Start 05/02/16 at 14:30 Cefepime HCl (Maxipime 1gm/50 ml (Pmx)) 50 ml @ 100 mls/hr Q12 IVPB Last administered on 05/08/16 10:00; Admin Dose 100 MLS/HR; Start 05/03/16 at 10:00 Chlordiazepoxide (Librium) 10 mg TID PO Last administered on 05/05/16 21:21; Admin Dose 10 MG; Start 05/04/16 at 09:00 Acetaminophen (Tylenol Liquid) 650 mg Q6H PRN GTB FEVER >101; Start 05/06/16 at 11:30 Furosemide 20 mg 20 mg BID IV Last administered on 05/08/16 10:00; Admin Dose 20 MG; Start 05/06/16 at 21:00 Vancomycin HCl (Vancocin) 100 ml @ 100 mls/hr Q12H IVPB Last administered on 12:09; Admin Dose 100 MLS/HR; Start 05/08/16 at 00:00 CICI CALIX MD May 08, 2016 14:57
--- NOTE | 2016-05-08 16:57 | CONS ---
Date/Time of Note Date/Time of Note DATE: 05/08/16 TIME: 16:56 Assessment/Plan Assessment/Plan Chief Complaint/Hosp Course SUBJECTIVE: No events. The patient is awake, looks comfortable. INDWELLINGS: Trach, left upper extremity PICC line, Rae. ANTIMICROBIALS: 1. Vancomycin. 2. Cefepime. PHYSICAL EXAMINATION: GENERAL: Chronically ill-appearing elderly man who is lying comfortably in bed. HEENT: Head atraumatic, normocephalic. Sclerae anicteric. Buccal mucosa dry. NECK: Supple. Tracheostomy present. CHEST: Rise symmetrical. Breath sounds diminished to bases. HEART: S1, S2. ABDOMEN: Soft. Bowel tones present. EXTREMITIES: Without cyanosis. ASSESSMENT: 1. Status post endotracheal bleeding. 2. Healthcare-associated pneumonia, recurrent. 3. Status post Escherichia coli extended-spectrum beta-lactamase urinary tract infection with bacteremia. 4. History of schizoaffective disorder. 5. Benign prostatic hypertrophy. PLAN: The patient remains stable. Continue present care, antibiotics, pending PEG. DW staff Problems: Consultation Date/Type/Reason Admit Date/Time Apr 11, 2016 at 22:13 Initial Consult Date 04/12/16 Type of Consultation: ID Referring Provider: ANNETTA AGUILAR MD Exam/Review of Systems Vital Signs Vitals Vital Signs Date Time Temp Pulse Resp B/P Pulse Ox O2 Delivery O2 Flow Rate FiO2 05/08/16 16:26 81 05/08/16 15:51 98.1 18 135/83 96 05/08/16 13:30 35 05/08/16 02:14 Mechanical Ventilator Intake and Output 05/07/16 05/07/16 05/08/16 15:00 23:00 07:00 Intake Total 720 ml 1270 ml Output Total 1800 ml Balance -1080 ml 1270 ml Results Result Diagram: 05/08/16 0543 05/08/16 0543 Results 24 hrs Laboratory Tests Test 05/08/16 05:43 05/08/16 11:05 Anion Gap 12 Basophils # 0.0 Basophils % 0.7 Blood Urea Nitrogen 13 Calcium Level 8.3 L Carbon Dioxide Level 36 H Chloride Level 94 L Creatinine 0.50 L Eosinophils # 0.1 Eosinophils % 1.5 Glucose Level 68 L Hematocrit 31.9 L Hemoglobin 10.3 L Lymphocytes # 1.0 Lymphocytes % 25.6 Mean Corpuscular Hemoglobin 27.5 L Mean Corpuscular Hemoglobin Concent 32.3 Mean Corpuscular Volume 85.3 Mean Platelet Volume 11.3 H Monocytes # 0.5 Monocytes % 12.9 H Neutrophils # 2.4 Neutrophils % 59.1 Nucleated Red Blood Cells # 0.0 Nucleated Red Blood Cells % 0.0 Platelet Count 110 L Potassium Level 3.1 L Red Blood Count 3.74 L Red Cell Distribution Width 17.3 H Sodium Level 139 White Blood Count 4.0 L Vancomycin Level Trough 16.0 Medications Medications Current Medications Ondansetron HCl (Zofran Inj) 4 mg Q6H PRN IV NAUSEA AND/OR VOMITING Last administered on 04/24/16 21:00; Admin Dose 4 MG; Start 04/11/16 at 22:30 Acetaminophen (Tylenol Tab) 650 mg Q6H PRN PO PAIN LEVEL 1-3 OR FEVER; Start at 22:30 Morphine Sulfate (morphine) 2 mg Q4H PRN IV PAIN LEVEL 7-10 Last administered on 05/07/16 20:33; Admin Dose 2 MG; Start 04/11/16 at 22:30 Ascorbic Acid (Vitamin C) 500 mg DAILY GTB Last administered on 05/05/16 09:37 ; Admin Dose 500 MG; Start 04/12/16 at 09:00 Bisacodyl (Dulcolax) 10 mg DAILY PRN PO CONSTIPATION; Start 04/11/16 at 22:30 Chlorhexidine Gluconate (Peridex) 15 ml BID MM Last administered on 05/08/16 10:00; Admin Dose 15 ML; Start 04/12/16 at 09:00 Ferrous Sulfate (Feosol Liquid Cup) 300 mg BID GTB Last administered on 21:20; Admin Dose 300 MG; Start 04/12/16 at 09:00 Acetaminophen/ Hydrocodone Bitart ([place] (5/325)) 1 tab Q4 PRN GTB PAIN LEVEL 6 -10; Start 04/11/16 at 22:30 Lactulose (Enulose) 20 gm DAILY GTB Last administered on 05/05/16 09:37; Admin Dose 20 GM; Start 04/12/16 at 09:00 Quetiapine Fumarate (Seroquel) 25 mg BID@ GTB Last administered on 10:00; Admin Dose 25 MG; Start 04/12/16 at 09:00 Quetiapine Fumarate (Seroquel) 200 mg HS GTB Last administered on 05/05/16 21: 20; Admin Dose 200 MG; Start 04/12/16 at 21:00 Senna (Senokot) 1 tab QHS GTB Last administered on 05/05/16 21:20; Admin Dose 1 TAB; Start 04/12/16 at 21:00 Sodium Biphosphate/ Sodium Phosphate (Fleet Enema Pediatric) 66.6 ml DAILY PRN [place] CONSTIPATION; Start 04/11/16 at 22:30 Thiamine HCl (Vitamin B1) 100 mg DAILY GTB Last administered on 05/05/16 09:37 ; Admin Dose 100 MG; Start 04/12/16 at 09:00 Calcium Carbonate (Tums) 500 mg DAILY GTB Last administered on 05/05/16 09:53 ; Admin Dose 500 MG; Start 04/12/16 at 09:00 Multivitamins/ Minerals (Theragran-M) 1 tab DAILY PO Last administered on 09:37; Admin Dose 1 TAB; Start 04/12/16 at 09:00 Hydralazine HCl (Apresoline) 10 mg Q6H PRN IV SBP >160 Last administered on 12:06; Admin Dose 10 MG; Start 04/12/16 at 12:30 Famotidine (Pepcid) 20 mg Q12 GTB Last administered on 05/05/16 21:21; Admin Dose 20 MG; Start 04/19/16 at 21:00 Lorazepam (Ativan) 1 mg Q4 PRN IV AGITATION/ANXIETY Last administered on 00:24; Admin Dose 1 MG; Start 04/24/16 at 21:00 Clonidine 0.1 mg 0.1 mg Q6H PRN PO ELEVATED BLOOD PRESSURE; Start 04/24/16 at 23 :30 Dextrose/Sodium Chloride (D5-1/2ns) 1,000 ml @ 60 mls/hr [id number] IV Last administered on 05/08/16 04:56; Admin Dose 60 MLS/HR; Start 04/26/16 at 11:30 Metoprolol Tartrate (Lopressor) 5 mg Q4H PRN IV PRN HR>110 Hold SBP<100; Start 04/28/16 at 13:30 Metoprolol Tartrate (Lopressor) 25 mg BID PO Last administered on 04/29/16 21: 29; Admin Dose 25 MG; Start 04/29/16 at 21:00; Status Future Hold Lorazepam (Ativan) 1 mg Q6 GTB Last administered on 05/05/16 18:55; Admin Dose 1 MG; Start 05/02/16 at 00:00 Aspirin 81 mg 81 mg DAILY PO Last administered on 05/05/16 09:37; Admin Dose 81 MG; Start 05/02/16 at 14:30 Cefepime HCl (Maxipime 1gm/50 ml (Pmx)) 50 ml @ 100 mls/hr Q12 IVPB Last administered on 05/08/16 10:00; Admin Dose 100 MLS/HR; Start 05/03/16 at 10:00 Chlordiazepoxide (Librium) 10 mg TID PO Last administered on 05/05/16 21:21; Admin Dose 10 MG; Start 05/04/16 at 09:00 Acetaminophen (Tylenol Liquid) 650 mg Q6H PRN GTB FEVER >101; Start 05/06/16 at 11:30 Furosemide 20 mg 20 mg BID IV Last administered on 05/08/16 10:00; Admin Dose 20 MG; Start 05/06/16 at 21:00 Vancomycin HCl (Vancocin) 100 ml @ 100 mls/hr Q12H IVPB Last administered on 12:09; Admin Dose 100 MLS/HR; Start 05/08/16 at 00:00 MARK LONG NP May 08, 2016 16:57
[2016-05-08] MEDS: QUETIAPINE 100 MG TAB GTB SCH (20:53)
[2016-05-08] MEDS: SENNA TAB GTB SCH (20:53)
[2016-05-09] VITALS (26 sets, daily range): BP systolic 122–187; BP diastolic 69–94; PULSE 67–82; RESP 17–27
[2016-05-09] MEDS: VANCOMYCIN 500MG/NS (PMX) 100 ML IVPB SCH ×2 (00:17→13:25)
[2016-05-09] MEDS: IPRATROPIUM (HFA) 12.9 GM INHALER INH SCH ×4 (01:38→19:39)
[2016-05-09] MEDS: ALBUTEROL HFA 8 GM INHALER INH SCH ×4 (01:39→19:39)
[2016-05-09] MEDS: hydrALAzine 20 MG INJ IV PRN ×2 (04:55→16:38)
[2016-05-09 05:26] LABS: PLATELET COUNT 113 10^3/UL (140-415)
[2016-05-09 05:41] LABS: PROTIME 15.3 Sec (12.2-14.2); PT RATIO 1.2
[2016-05-09 05:42] LABS: THROMBIN TIME 16.7 SEC (13.8-19.1)
[2016-05-09 05:56] LABS: D-DIMER 1126.51 ng/ml (<460)
[2016-05-09] MEDS: LORAZEPAM 1 MG TAB GTB SCH ×4 (06:00→17:01)
[2016-05-09 06:05] LABS: FIBRIN SPLIT PRODUCT <10 ug/ml (<10)
--- NOTE | 2016-05-09 06:59 | PN ---
DATE: 05/08/2016 HEMATOLOGY PROGRESS NOTE HISTORY OF PRESENT ILLNESS: Mr. Ford is a 65-year-old gentleman with multiple medical problems inc luding chronic respiratory failure, bacteremic sepsis, improved, and also has prolonged PTT. The tangela melton also has pancytopenia. His cytopenia panel was unremarkable. The patient is basically bedrid den. He is not eating well and is going to have a PEG placed. PAST HISTORY AND REVIEW OF SYSTEMS: See the consult. PHYSICAL EXAMINATION: GENERAL: Shows a thinly built male who is alert. He has a tracheostomy and is unable to talk. NECK: Supple without any abnormal masses except for the tracheostomy. CHEST: Symmetrical. LUNGS: Show distant breath sounds. HEART: Sounds normal. ABDOMEN: Soft. No masses. EXTERNAL GENITALIA: Normal. EXTREMITIES: The patient has contractures of both legs. CENTRAL NERVOUS SYSTEM: He appears to be alert but probably slightly confused. He has contractures of both lower extremities. LABORATORY DATA: CBC shows WBC 3500 to 4000 with about 60% neutrophils, hemoglobin 10.3 with MCV 85 and platelets 110,000. His cytopenia panel is unremarkable. His liver function tests and creatini ne are normal, and also LDH is normal. The patient is on aspirin and ferrous sulfate p.o. He also has prolonged PTT with a normal protime. IMPRESSION: 1. Pancytopenia with unremarkable cytopenia panel. Rule out bone marrow pathology like dysplasia. Rule out hypersplenism, probably unlikely. Rule out secondary to medications. 2. Prolonged PTT. Rule out factor 8, iron deficiency, rule out lupus anticoagulant, rule out Von W illebrand disease. 3. History of chronic respiratory failure. PLAN AND DISCUSSION: The patient hematologically seems to be stable. He has no bleeding, but his p rolonged PTT is probably caused by one of the differential diagnoses mentioned above. It is unlikel y to be vitamin K since his PT is normal and LFTs are normal. I would order a brief workup with PT, PTT, fibrinogen, factor 8 levels, and lupus anticoagulant. If the factor 8 level is low, he will n eed further workup to rule out Von Willebrand disease. Dictated By: NORAH PINO/DAVID Conf#: [id number] DID#: [id number]
[2016-05-09 07:25] LABS: ADD SCAN DIFF NO
[2016-05-09 07:27] LABS: ABNORMAL IP MESSAGE 1; BASOPHILS % 0.5 % (0.0-2.0); EOSINOPHILS # 0.1 10^3/ul (0.0-0.5); EOSINOPHILS % 1.4 % (0.0-7.0); HEMATOCRIT 33.2 % (42.0-52.0); HEMOGLOBIN 10.8 g/dl (14.0-18.0); LYMPHOCYTES # 0.9 10^3/ul (0.8-2.9); LYMPHOCYTES % 23.3 % (15.0-51.0); MEAN CORPUSCULAR HEMOGLOBIN 27.8 pg (29.0-33.0); MEAN CORPUSCULAR HGB CONC 32.5 g/dl (32.0-37.0); MEAN CORPUSCULAR VOLUME 85.3 fl (82.0-101.0); MEAN PLATELET VOLUME 10.7 fl (7.4-10.4); MONOCYTE # 0.5 10^3/ul (0.3-0.9); MONOCYTES % 12.6 % (0.0-11.0); NEUTROPHIL # 2.3 10^3/ul (1.6-7.5); NEUTROPHILS % 61.9 % (39.0-77.0); PLATELET COUNT 99 10^3/UL (140-415); RED BLOOD COUNT 3.89 10^6/ul (4.70-6.10); RED CELL DISTRIBUTION WIDTH 17.2 % (11.5-14.5); WHITE BLOOD COUNT 3.7 10^3/ul (4.8-10.8)
[2016-05-09 07:34] LABS: CREATININE 0.46 mg/dl (0.61-1.24)
[2016-05-09 07:35] LABS: CALCIUM 8.7 mg/dl (8.4-10.2)
[2016-05-09 08:02] LABS: POTASSIUM 2.7 mmol/L (3.5-5.1)
[2016-05-09] MEDS: LACTULOSE 30ML CUP GTB SCH (08:14)
[2016-05-09] MEDS: CALCIUM CARBONATE 500 MG CHEW TAB GTB SCH (08:14)
[2016-05-09] MEDS: FERROUS SULFATE 60 MG/ML 5ML CUP GTB SCH ×2 (08:14→21:00)
[2016-05-09] MEDS: QUETIAPINE 25 MG TAB GTB SCH ×2 (08:14→16:26)
[2016-05-09] MEDS: FAMOTIDINE 20 MG TAB GTB SCH ×2 (08:14→21:00)
[2016-05-09] MEDS: THIAMINE 100 MG TAB GTB SCH (08:14)
[2016-05-09] MEDS: CHLORDIAZEPOXIDE 5 MG CAP PO SCH ×3 (08:15→21:00)
[2016-05-09] MEDS: ASCORBIC ACID 500 MG TAB GTB SCH (08:15)
[2016-05-09] MEDS: MULTIVITAMINS/MINERALS TAB PO SCH (08:15)
[2016-05-09] MEDS: ASPIRIN 81 MG TAB PO SCH (08:15)
[2016-05-09] MEDS: CEFEPIME 1GM/50 ML (PMX) 50 ML IVPB SCH ×2 (08:18→21:10)
[2016-05-09] MEDS ORDERED: POTASSIUM CHLORIDE 250 ML IVPB ONE (08:30)
--- NOTE | 2016-05-09 11:49 | PN ---
Date/Time of Note Date/Time of Note DATE: 05/09/16 TIME: 11:48 Assessment/Plan VTE Prophylaxis VTE Prophylaxis Intervention: other Lines/Catheters IV [facility] Type [facility] PICC Line Central line still needed: Yes Urinary Cath still in place: No Assessment/Plan Chief Complaint/Hosp Course - Bleeding from tracheostomy site, resolving, pending ENT consult. Dr. Cecilia esquivel is aware. - Pancytopenia. Dr Gaona is following in hematology consultation. - Coagulopathy, status post vitamin K, Lovenox is held - NSTEMI, continue aspirin and Lovenox. Dr. Espitia is following patient in cardiology consultation. - Atrial fibrillation with rapid ventricular response. Continue metoprolol. Continue telemetry monitoring. - Bilateral pleural effusions, status post right sided thoracentesis, pending thoracentesis of the left side. - Acute hypoxic respiratory failure. Dr. Anderson is following in pulmonology consultation. Continue ventilatory support and bronchodilators. - Possible healthcare-acquired left lower lung pneumonia versus aspiration. Continue antibiotics per ID. Dr. Rojas is following an infection disease consultation. - E. coli ESBL urinary tract infection, status post treatment. - Sepsis with Ecoli ESBL bacteremia 2 UTI, resolved. - Dysphagia, with G-tube. Status post G-tube removal by patient. Patient passed swallow eval and was started on pured diet. Patient tolerates pured diet well. - History of chronic respiratory failure with tracheostomy. - Benign prostatic hypertrophy. - Schizoaffective disorder. Continue Seroquel and Ativan as needed for agitation. Problems: Subjective 24 Hr Interval Summary Free Text/Dictation Patient remain on vent via trach Exam/Review of Systems Vital Signs Vitals Vital Signs Date Time Temp Pulse Resp B/P Pulse Ox O2 Delivery O2 Flow Rate FiO2 05/09/16 11:35 68 22 96 30 05/09/16 08:22 98.1 146/77 05/08/16 02:14 Mechanical Ventilator Intake and Output 05/08/16 05/08/16 05/09/16 15:00 23:00 07:00 Intake Total 50 ml 990 ml 810 ml Output Total 1300 ml 1250 ml Balance 50 ml -310 ml -440 ml Exam Constitutional: well developed Head: atraumatic, normocephalic Neck: supple Respiratory: diminished breath sounds Cardiovascular: regular rate and rhythm Gastrointestinal: non-tender, soft Extremities: normal pulses Results Result Diagram: 05/09/16 0500 05/09/16 0500 Results 24 hrs Laboratory Tests Test 05/09/16 05:00 Activated Partial Thromboplast Time 48.0 H Anion Gap 12 Basophils # 0.0 Basophils % 0.5 Blood Urea Nitrogen 12 Calcium Level 8.7 Carbon Dioxide Level 36 H Chloride Level 94 L Creatinine 0.46 L D-Dimer 1126.51 H D-Dimer Comment Eosinophils # 0.1 Eosinophils % 1.4 Fibrinogen 343.0 Glucose Level 82 Hematocrit 33.2 L Hemoglobin 10.8 L INR International Normalized Ratio 1.20 Lymphocytes # 0.9 Lymphocytes % 23.3 Mean Corpuscular Hemoglobin 27.8 L Mean Corpuscular Hemoglobin Concent 32.5 Mean Corpuscular Volume 85.3 Mean Platelet Volume 10.7 H Monocytes # 0.5 Monocytes % 12.6 H Neutrophils # 2.3 Neutrophils % 61.9 Nucleated Red Blood Cells # 0.0 Nucleated Red Blood Cells % 0.0 Plasma Fibrin Degradation Products <10 Platelet Count 99 L Potassium Level 2.7 *L Prothrombin Time 15.3 H Prothrombin Time Ratio 1.2 Red Blood Count 3.89 L Red Cell Distribution Width 17.2 H Sodium Level 139 Thrombin Time 16.7 White Blood Count 3.7 L Medications Medications Current Medications Ondansetron HCl (Zofran Inj) 4 mg Q6H PRN IV NAUSEA AND/OR VOMITING Last administered on 04/24/16 21:00; Admin Dose 4 MG; Start 04/11/16 at 22:30 Acetaminophen (Tylenol Tab) 650 mg Q6H PRN PO PAIN LEVEL 1-3 OR FEVER; Start at 22:30 Morphine Sulfate (morphine) 2 mg Q4H PRN IV PAIN LEVEL 7-10 Last administered on 05/07/16 20:33; Admin Dose 2 MG; Start 04/11/16 at 22:30 Ascorbic Acid (Vitamin C) 500 mg DAILY GTB Last administered on 05/05/16 09:37 ; Admin Dose 500 MG; Start 04/12/16 at 09:00 Bisacodyl (Dulcolax) 10 mg DAILY PRN PO CONSTIPATION; Start 04/11/16 at 22:30 Chlorhexidine Gluconate (Peridex) 15 ml BID MM Last administered on 05/08/16 20:52; Admin Dose 15 ML; Start 04/12/16 at 09:00 Ferrous Sulfate (Feosol Liquid Cup) 300 mg BID GTB Last administered on 21:20; Admin Dose 300 MG; Start 04/12/16 at 09:00 Acetaminophen/ Hydrocodone Bitart ([place] (5/325)) 1 tab Q4 PRN GTB PAIN LEVEL 6 -10; Start 04/11/16 at 22:30 Lactulose (Enulose) 20 gm DAILY GTB Last administered on 05/05/16 09:37; Admin Dose 20 GM; Start 04/12/16 at 09:00 Quetiapine Fumarate (Seroquel) 25 mg BID@ GTB Last administered on 10:00; Admin Dose 25 MG; Start 04/12/16 at 09:00 Quetiapine Fumarate (Seroquel) 200 mg HS GTB Last administered on 05/05/16 21: 20; Admin Dose 200 MG; Start 04/12/16 at 21:00 Senna (Senokot) 1 tab QHS GTB Last administered on 05/05/16 21:20; Admin Dose 1 TAB; Start 04/12/16 at 21:00 Sodium Biphosphate/ Sodium Phosphate (Fleet Enema Pediatric) 66.6 ml DAILY PRN [place] CONSTIPATION; Start 04/11/16 at 22:30 Thiamine HCl (Vitamin B1) 100 mg DAILY GTB Last administered on 05/05/16 09:37 ; Admin Dose 100 MG; Start 04/12/16 at 09:00 Calcium Carbonate (Tums) 500 mg DAILY GTB Last administered on 05/05/16 09:53 ; Admin Dose 500 MG; Start 04/12/16 at 09:00 Multivitamins/ Minerals (Theragran-M) 1 tab DAILY PO Last administered on 09:37; Admin Dose 1 TAB; Start 04/12/16 at 09:00 Hydralazine HCl (Apresoline) 10 mg Q6H PRN IV SBP >160 Last administered on 04:55; Admin Dose 10 MG; Start 04/12/16 at 12:30 Famotidine (Pepcid) 20 mg Q12 GTB Last administered on 05/05/16 21:21; Admin Dose 20 MG; Start 04/19/16 at 21:00 Lorazepam (Ativan) 1 mg Q4 PRN IV AGITATION/ANXIETY Last administered on 00:24; Admin Dose 1 MG; Start 04/24/16 at 21:00 Clonidine 0.1 mg 0.1 mg Q6H PRN PO ELEVATED BLOOD PRESSURE; Start 04/24/16 at 23 :30 Dextrose/Sodium Chloride (D5-1/2ns) 1,000 ml @ 60 mls/hr [id number] IV Last administered on 05/08/16 23:07; Admin Dose 60 MLS/HR; Start 04/26/16 at 11:30 Metoprolol Tartrate (Lopressor) 5 mg Q4H PRN IV PRN HR>110 Hold SBP<100; Start 04/28/16 at 13:30 Metoprolol Tartrate (Lopressor) 25 mg BID PO Last administered on 04/29/16 21: 29; Admin Dose 25 MG; Start 04/29/16 at 21:00; Status Future Hold Lorazepam (Ativan) 1 mg Q6 GTB Last administered on 05/05/16 18:55; Admin Dose 1 MG; Start 05/02/16 at 00:00 Aspirin 81 mg 81 mg DAILY PO Last administered on 05/05/16 09:37; Admin Dose 81 MG; Start 05/02/16 at 14:30 Cefepime HCl (Maxipime 1gm/50 ml (Pmx)) 50 ml @ 100 mls/hr Q12 IVPB Last administered on 05/09/16 08:18; Admin Dose 100 MLS/HR; Start 05/03/16 at 10:00 Chlordiazepoxide (Librium) 10 mg TID PO Last administered on 05/05/16 21:21; Admin Dose 10 MG; Start 05/04/16 at 09:00 Acetaminophen (Tylenol Liquid) 650 mg Q6H PRN GTB FEVER >101; Start 05/06/16 at 11:30 Furosemide 20 mg 20 mg BID IV Last administered on 05/08/16 20:22; Admin Dose 20 MG; Start 05/06/16 at 21:00 Vancomycin HCl 100 ml @ 100 mls/hr Q12H IVPB Last administered on 05/09/16 00 :17; Admin Dose 100 MLS/HR; Start 05/08/16 at 00:00 Potassium Chloride (KCl 40 MEQ/250 ML NS) 250 ml @ 62.5 mls/hr ONCE ONCE IVPB Last administered on 05/09/16t 09:04; Admin Dose 62.5 MLS/HR; Start 05/09/16 at 08:30; Stop 05/09/16 at 12:29 NEELAM RIBERA May 09, 2016 11:49
[2016-05-09] MEDS: FUROSEMIDE 20 MG INJ IV SCH ×2 (12:09→21:13)
[2016-05-09] MEDS: CHLORHEXIDINE GLUCONATE 15 ML UD CUP MM SCH ×2 (12:09→21:10)
--- NOTE | 2016-05-09 15:51 | CONS ---
Date/Time of Note Date/Time of Note DATE: 05/09/16 TIME: 15:50 Assessment/Plan Assessment/Plan Chief Complaint/Hosp Course SUBJECTIVE: No events. The patient is awake, looks comfortable. INDWELLINGS: Trach, left upper extremity PICC line, Rae. ANTIMICROBIALS: 1. Vancomycin. 2. Cefepime. PHYSICAL EXAMINATION: GENERAL: Chronically ill-appearing elderly man who is lying comfortably in bed. HEENT: Head atraumatic, normocephalic. Sclerae anicteric. Buccal mucosa dry. NECK: Supple. Tracheostomy present. CHEST: Rise symmetrical. Breath sounds diminished to bases. HEART: S1, S2. ABDOMEN: Soft. Bowel tones present. EXTREMITIES: Without cyanosis. ASSESSMENT: 1. Status post endotracheal bleeding. 2. Healthcare-associated pneumonia, recurrent. 3. Status post Escherichia coli extended-spectrum beta-lactamase urinary tract infection with bacteremia. 4. History of schizoaffective disorder. 5. Benign prostatic hypertrophy. PLAN: The patient remains stable. He is on abx day #7. Continue present care, hematology/pulmonary rec-s, pending PEG. DW staff Problems: Consultation Date/Type/Reason Admit Date/Time Apr 11, 2016 at 22:13 Initial Consult Date 04/12/16 Type of Consultation: ID Referring Provider: ANNETTA AGUILAR MD Exam/Review of Systems Vital Signs Vitals Vital Signs Date Time Temp Pulse Resp B/P Pulse Ox O2 Delivery O2 Flow Rate FiO2 05/09/16 13:28 72 24 95 30 05/09/16 11:57 98.6 149/78 05/08/16 02:14 Mechanical Ventilator Intake and Output 05/08/16 05/08/16 05/09/16 15:00 23:00 07:00 Intake Total 50 ml 990 ml 810 ml Output Total 1300 ml 1250 ml Balance 50 ml -310 ml -440 ml Results Result Diagram: 05/09/16 0500 05/09/16 0500 Results 24 hrs Laboratory Tests Test 05/09/16 05:00 Activated Partial Thromboplast Time 48.0 H Anion Gap 12 Basophils # 0.0 Basophils % 0.5 Blood Urea Nitrogen 12 Calcium Level 8.7 Carbon Dioxide Level 36 H Chloride Level 94 L Creatinine 0.46 L D-Dimer 1126.51 H D-Dimer Comment Eosinophils # 0.1 Eosinophils % 1.4 Fibrinogen 343.0 Glucose Level 82 Hematocrit 33.2 L Hemoglobin 10.8 L INR International Normalized Ratio 1.20 Lymphocytes # 0.9 Lymphocytes % 23.3 Mean Corpuscular Hemoglobin 27.8 L Mean Corpuscular Hemoglobin Concent 32.5 Mean Corpuscular Volume 85.3 Mean Platelet Volume 10.7 H Monocytes # 0.5 Monocytes % 12.6 H Neutrophils # 2.3 Neutrophils % 61.9 Nucleated Red Blood Cells # 0.0 Nucleated Red Blood Cells % 0.0 Plasma Fibrin Degradation Products <10 Platelet Count 99 L Potassium Level 2.7 *L Prothrombin Time 15.3 H Prothrombin Time Ratio 1.2 Red Blood Count 3.89 L Red Cell Distribution Width 17.2 H Sodium Level 139 Thrombin Time 16.7 White Blood Count 3.7 L Medications Medications Current Medications Ondansetron HCl (Zofran Inj) 4 mg Q6H PRN IV NAUSEA AND/OR VOMITING Last administered on 04/24/16 21:00; Admin Dose 4 MG; Start 04/11/16 at 22:30 Acetaminophen (Tylenol Tab) 650 mg Q6H PRN PO PAIN LEVEL 1-3 OR FEVER; Start at 22:30 Morphine Sulfate (morphine) 2 mg Q4H PRN IV PAIN LEVEL 7-10 Last administered on 05/07/16 20:33; Admin Dose 2 MG; Start 04/11/16 at 22:30 Ascorbic Acid (Vitamin C) 500 mg DAILY GTB Last administered on 05/05/16 09:37 ; Admin Dose 500 MG; Start 04/12/16 at 09:00 Bisacodyl (Dulcolax) 10 mg DAILY PRN PO CONSTIPATION; Start 04/11/16 at 22:30 Chlorhexidine Gluconate (Peridex) 15 ml BID MM Last administered on 05/09/16 12:09; Admin Dose 15 ML; Start 04/12/16 at 09:00 Ferrous Sulfate (Feosol Liquid Cup) 300 mg BID GTB Last administered on 21:20; Admin Dose 300 MG; Start 04/12/16 at 09:00 Acetaminophen/ Hydrocodone Bitart ([place] (5/325)) 1 tab Q4 PRN GTB PAIN LEVEL 6 -10; Start 04/11/16 at 22:30 Lactulose (Enulose) 20 gm DAILY GTB Last administered on 05/05/16 09:37; Admin Dose 20 GM; Start 04/12/16 at 09:00 Quetiapine Fumarate (Seroquel) 25 mg BID@ GTB Last administered on 10:00; Admin Dose 25 MG; Start 04/12/16 at 09:00 Quetiapine Fumarate (Seroquel) 200 mg HS GTB Last administered on 05/05/16 21: 20; Admin Dose 200 MG; Start 04/12/16 at 21:00 Senna (Senokot) 1 tab QHS GTB Last administered on 05/05/16 21:20; Admin Dose 1 TAB; Start 04/12/16 at 21:00 Sodium Biphosphate/ Sodium Phosphate (Fleet Enema Pediatric) 66.6 ml DAILY PRN [place] CONSTIPATION; Start 04/11/16 at 22:30 Thiamine HCl (Vitamin B1) 100 mg DAILY GTB Last administered on 05/05/16 09:37 ; Admin Dose 100 MG; Start 04/12/16 at 09:00 Calcium Carbonate (Tums) 500 mg DAILY GTB Last administered on 05/05/16 09:53 ; Admin Dose 500 MG; Start 04/12/16 at 09:00 Multivitamins/ Minerals (Theragran-M) 1 tab DAILY PO Last administered on 09:37; Admin Dose 1 TAB; Start 04/12/16 at 09:00 Hydralazine HCl (Apresoline) 10 mg Q6H PRN IV SBP >160 Last administered on 04:55; Admin Dose 10 MG; Start 04/12/16 at 12:30 Famotidine (Pepcid) 20 mg Q12 GTB Last administered on 05/05/16 21:21; Admin Dose 20 MG; Start 04/19/16 at 21:00 Lorazepam (Ativan) 1 mg Q4 PRN IV AGITATION/ANXIETY Last administered on 00:24; Admin Dose 1 MG; Start 04/24/16 at 21:00 Clonidine 0.1 mg 0.1 mg Q6H PRN PO ELEVATED BLOOD PRESSURE; Start 04/24/16 at 23 :30 Dextrose/Sodium Chloride (D5-1/2ns) 1,000 ml @ 60 mls/hr [id number] IV Last administered on 05/08/16 23:07; Admin Dose 60 MLS/HR; Start 04/26/16 at 11:30 Metoprolol Tartrate (Lopressor) 5 mg Q4H PRN IV PRN HR>110 Hold SBP<100; Start 04/28/16 at 13:30 Metoprolol Tartrate (Lopressor) 25 mg BID PO Last administered on 04/29/16 21: 29; Admin Dose 25 MG; Start 04/29/16 at 21:00; Status Future Hold Lorazepam (Ativan) 1 mg Q6 GTB Last administered on 05/05/16 18:55; Admin Dose 1 MG; Start 05/02/16 at 00:00 Aspirin 81 mg 81 mg DAILY PO Last administered on 05/05/16 09:37; Admin Dose 81 MG; Start 05/02/16 at 14:30 Cefepime HCl (Maxipime 1gm/50 ml (Pmx)) 50 ml @ 100 mls/hr Q12 IVPB Last administered on 05/09/16 08:18; Admin Dose 100 MLS/HR; Start 05/03/16 at 10:00 Chlordiazepoxide (Librium) 10 mg TID PO Last administered on 05/05/16 21:21; Admin Dose 10 MG; Start 05/04/16 at 09:00 Acetaminophen (Tylenol Liquid) 650 mg Q6H PRN GTB FEVER >101; Start 05/06/16 at 11:30 Furosemide 20 mg 20 mg BID IV Last administered on 05/09/16 12:09; Admin Dose 20 MG; Start 05/06/16 at 21:00 Vancomycin HCl (Vancocin) 100 ml @ 100 mls/hr Q12H IVPB Last administered on 13:25; Admin Dose 100 MLS/HR; Start 05/08/16 at 00:00 MARK LONG NP May 09, 2016 15:51
[2016-05-09] MEDS: DEXTROSE 5%-0.45% NACL 1,000 ML IV SCH (16:10)
--- NOTE | 2016-05-09 17:18 | PN ---
DATE: 05/09/2016 SUBJECTIVE: Mariama Ford is stable this morning. Appears less agitated. PHYSICAL EXAMINATION: VITAL SIGNS: Temperature 98, pulse 74, blood pressure 149/78, O2 saturation 96% on 30% FIO2. NECK: Supple. Trach site clean and intact. CARDIAC: S1, S2, no added sounds or murmurs. CHEST: Diminished air entry bilaterally, few rales right base. ABDOMEN: Soft, nontender, no guarding or rebound. EXTREMITIES: No cyanosis, clubbing, edema. NEUROLOGIC: Generalized weakness. LABORATORY DATA: White count 3.7, hemoglobin 10.8, platelets of 99. Potassium 2.7. INR 1.2. IMPRESSION AND PLAN: 1. Vent dependent respiratory failure. 2. History of psychiatric disorder. 3. Recent non-ST elevation myocardial infarction. 4. Pancytopenia. 5. Escherichia coli urinary tract infection. PLAN: 1. Continue antibiotics. 2. Pulmonary toilet. 3. Vent support. 4. Replace electrolytes. 5. DVT and GI prophylaxis. 6. Consider transfer back to long term facility. Dictated By: MARISOL STEVENS/DAVID Conf#: [id number] DID#: [id number]
--- NOTE | 2016-05-09 18:19 | CONS ---
Date/Time of Note Date/Time of Note DATE: 05/09/16 TIME: 18:17 Assessment/Plan Assessment/Plan Additional Assessment/Plan 1. Wide complex tachycardia, cardiac arrhythmia. Rule out nonsustained ventricular tachycardia.-likely c/w abberant AF-no recurrence - IN SINUS NOW - hr well controlled 2. Abnormal electrocardiogram, assess for acute coronary syndrome- no intervention planned - BP stable 3. Congestive heart failure by chest x-ray, diastolic by most recent echo acute on chronic. 4. Hypertension - BP high now - will adjust Rx as needed 5. Respiratory failure, chronic, status post tracheostomy with recurrent desats - con't resp Rx 6. Dysphagia, status post G-tube. 7. Psychiatric disorder- no agitation now 8. Urinary tract infection- on anti-bx 9. Hypokalemia-improved 10. Anemia. 11. Leukopenia. 12.Nstemi-no current chest pain/decreased enzymes 14. Bradycardia-improved Consultation Date/Type/Reason Admit Date/Time Apr 11, 2016 at 22:13 Initial Consult Date 04/21/16 Type of Consultation: ID Referring Provider: ANNETTA AGUILAR MD 24 HR Interval Summary Free Text/Dictation No acute events - BP stable - con't resp Rx. ROS: No fever, no chills, no nausea, no vomiting, no diarrhea/constipation No recent weight changes No chest pain, no PND, no orthopnea No dizziness, blurred vision No thirst, no heat or cold intolerance (per nurse) Exam/Review of Systems Vital Signs Vitals Vital Signs Date Time Temp Pulse Resp B/P Pulse Ox O2 Delivery O2 Flow Rate FiO2 05/09/16 18:00 98.1 82 18 122/69 97 Mechanical Ventilator 05/09/16 17:21 30 Intake and Output 05/08/16 05/08/16 05/09/16 15:00 23:00 07:00 Intake Total 50 ml 990 ml 810 ml Output Total 1300 ml 1250 ml Balance 50 ml -310 ml -440 ml Exam General: WN/WD/NAD, AOx 1-2 HEENT: Unicetric/atraumatic/EOMI (does not follow commands) NECK: JVD elevated, no thyromegaly Lymph: no lymphadenopathy HEART: regular with no S3, II/ systolic murmur at apex LUNGS: Coarse sounds ABD: soft, NT, ND, +BS : Intact Neuro: non focal SKIN: chronic changes EXT: trace edema Results Result Diagram: 05/09/16 0500 05/09/16 0500 Results 24 hrs Laboratory Tests Test 05/09/16 05:00 Activated Partial Thromboplast Time 48.0 H Anion Gap 12 Basophils # 0.0 Basophils % 0.5 Blood Urea Nitrogen 12 Calcium Level 8.7 Carbon Dioxide Level 36 H Chloride Level 94 L Creatinine 0.46 L D-Dimer 1126.51 H D-Dimer Comment Eosinophils # 0.1 Eosinophils % 1.4 Fibrinogen 343.0 Glucose Level 82 Hematocrit 33.2 L Hemoglobin 10.8 L INR International Normalized Ratio 1.20 Lymphocytes # 0.9 Lymphocytes % 23.3 Mean Corpuscular Hemoglobin 27.8 L Mean Corpuscular Hemoglobin Concent 32.5 Mean Corpuscular Volume 85.3 Mean Platelet Volume 10.7 H Monocytes # 0.5 Monocytes % 12.6 H Neutrophils # 2.3 Neutrophils % 61.9 Nucleated Red Blood Cells # 0.0 Nucleated Red Blood Cells % 0.0 Plasma Fibrin Degradation Products <10 Platelet Count 99 L Potassium Level 2.7 *L Prothrombin Time 15.3 H Prothrombin Time Ratio 1.2 Red Blood Count 3.89 L Red Cell Distribution Width 17.2 H Sodium Level 139 Thrombin Time 16.7 White Blood Count 3.7 L Medications Medications Current Medications Ondansetron HCl (Zofran Inj) 4 mg Q6H PRN IV NAUSEA AND/OR VOMITING Last administered on 04/24/16 21:00; Admin Dose 4 MG; Start 04/11/16 at 22:30 Acetaminophen (Tylenol Tab) 650 mg Q6H PRN PO PAIN LEVEL 1-3 OR FEVER; Start at 22:30 Morphine Sulfate (morphine) 2 mg Q4H PRN IV PAIN LEVEL 7-10 Last administered on 05/07/16 20:33; Admin Dose 2 MG; Start 04/11/16 at 22:30 Ascorbic Acid (Vitamin C) 500 mg DAILY GTB Last administered on 05/05/16 09:37 ; Admin Dose 500 MG; Start 04/12/16 at 09:00 Bisacodyl (Dulcolax) 10 mg DAILY PRN PO CONSTIPATION; Start 04/11/16 at 22:30 Chlorhexidine Gluconate (Peridex) 15 ml BID MM Last administered on 05/09/16 12:09; Admin Dose 15 ML; Start 04/12/16 at 09:00 Ferrous Sulfate (Feosol Liquid Cup) 300 mg BID GTB Last administered on 21:20; Admin Dose 300 MG; Start 04/12/16 at 09:00 Acetaminophen/ Hydrocodone Bitart ([place] (5/325)) 1 tab Q4 PRN GTB PAIN LEVEL 6 -10; Start 04/11/16 at 22:30 Lactulose (Enulose) 20 gm DAILY GTB Last administered on 05/05/16 09:37; Admin Dose 20 GM; Start 04/12/16 at 09:00 Quetiapine Fumarate (Seroquel) 25 mg BID@ GTB Last administered on 10:00; Admin Dose 25 MG; Start 04/12/16 at 09:00 Quetiapine Fumarate (Seroquel) 200 mg HS GTB Last administered on 05/05/16 21: 20; Admin Dose 200 MG; Start 04/12/16 at 21:00 Senna (Senokot) 1 tab QHS GTB Last administered on 05/05/16 21:20; Admin Dose 1 TAB; Start 04/12/16 at 21:00 Sodium Biphosphate/ Sodium Phosphate (Fleet Enema Pediatric) 66.6 ml DAILY PRN [place] CONSTIPATION; Start 04/11/16 at 22:30 Thiamine HCl (Vitamin B1) 100 mg DAILY GTB Last administered on 05/05/16 09:37 ; Admin Dose 100 MG; Start 04/12/16 at 09:00 Calcium Carbonate (Tums) 500 mg DAILY GTB Last administered on 05/05/16 09:53 ; Admin Dose 500 MG; Start 04/12/16 at 09:00 Multivitamins/ Minerals (Theragran-M) 1 tab DAILY PO Last administered on 09:37; Admin Dose 1 TAB; Start 04/12/16 at 09:00 Hydralazine HCl (Apresoline) 10 mg Q6H PRN IV SBP >160 Last administered on 16:38; Admin Dose 10 MG; Start 04/12/16 at 12:30 Famotidine (Pepcid) 20 mg Q12 GTB Last administered on 05/05/16 21:21; Admin Dose 20 MG; Start 04/19/16 at 21:00 Lorazepam (Ativan) 1 mg Q4 PRN IV AGITATION/ANXIETY Last administered on 00:24; Admin Dose 1 MG; Start 04/24/16 at 21:00 Clonidine 0.1 mg 0.1 mg Q6H PRN PO ELEVATED BLOOD PRESSURE; Start 04/24/16 at 23 :30 Dextrose/Sodium Chloride (D5-1/2ns) 1,000 ml @ 60 mls/hr [id number] IV Last administered on 05/08/16 23:07; Admin Dose 60 MLS/HR; Start 04/26/16 at 11:30 Metoprolol Tartrate (Lopressor) 5 mg Q4H PRN IV PRN HR>110 Hold SBP<100; Start 04/28/16 at 13:30 Metoprolol Tartrate (Lopressor) 25 mg BID PO Last administered on 04/29/16 21: 29; Admin Dose 25 MG; Start 04/29/16 at 21:00; Status Future Hold Lorazepam (Ativan) 1 mg Q6 GTB Last administered on 05/05/16 18:55; Admin Dose 1 MG; Start 05/02/16 at 00:00 Aspirin 81 mg 81 mg DAILY PO Last administered on 05/05/16 09:37; Admin Dose 81 MG; Start 05/02/16 at 14:30 Cefepime HCl (Maxipime 1gm/50 ml (Pmx)) 50 ml @ 100 mls/hr Q12 IVPB Last administered on 05/09/16 08:18; Admin Dose 100 MLS/HR; Start 05/03/16 at 10:00 Chlordiazepoxide (Librium) 10 mg TID PO Last administered on 05/05/16 21:21; Admin Dose 10 MG; Start 05/04/16 at 09:00 Acetaminophen (Tylenol Liquid) 650 mg Q6H PRN GTB FEVER >101; Start 05/06/16 at 11:30 Furosemide 20 mg 20 mg BID IV Last administered on 05/09/16 12:09; Admin Dose 20 MG; Start 05/06/16 at 21:00 Vancomycin HCl (Vancocin) 100 ml @ 100 mls/hr Q12H IVPB Last administered on t 13:25; Admin Dose 100 MLS/HR; Start 05/08/16 at 00:00 MOSHE GARCÍA MD May 09, 2016 18:19
--- NOTE | 2016-05-09 19:19 | PN ---
DATE: 05/09/2016 HISTORY OF PRESENT ILLNESS: This is a patient with multiple medical problems including chronic respi ratory failure and bacteremia has improved. He also has pancytopenia and prolonged PTT. His cytope ralph panel was unremarkable. He is going to have a PET placed soon. PHYSICAL EXAMINATION GENERAL: Shows a thinly built male who is more alert now. He is unable to talk because of the trac heostomy. NECK: Supple, no lymphadenopathy in the neck. CHEST: Symmetrical. LUNGS: Show distant breath sounds. CARDIOVASCULAR: Heart sounds normal, regular sinus rhythm. GASTROINTESTINAL: Abdomen soft, no masses. EXTERNAL GENITALIA: Normal. EXTREMITIES: Has muscle wasting and some contractures in both knees. Lymph nodes: No peripheral l ymphadenopathy. LABORATORY DATA: His CBC today shows WBC 3700 with 62% neutrophils, hemoglobin 10.2 and platelets 99 ,000. His creatinine is normal at 0.46, potassium is down to 2.7. His PT INR is normal at 1.2, PTT is still high at 48. Fibrinogen is normal. His lupus anticoagulant and factor 8 are still pending . IMPRESSION: 1. Pancytopenia with normal cytopenia panel. We need to rule out bone marrow pathology like dyspla angela. Medications or infection also possible. If the cytopenia persists, he might need a bone marrow . 2. Prolonged PTT. This could be from lupus anticoagulant. Deficiency of factor 8 or 9 and also __ ___ disease also a possibility. The tests are pending. 3. History of chronic respiratory failure. PLAN: We will be as discussed above. Dictated By: NORAH NAZARIO MD PC/NTS Conf#: [id number] DID#: [id number]
[2016-05-09] MEDS: SENNA TAB GTB SCH (21:00)
[2016-05-09] MEDS: QUETIAPINE 100 MG TAB GTB SCH (21:00)
[2016-05-10] VITALS (25 sets, daily range): BP systolic 118–173; BP diastolic 73–94; PULSE 40–102; RESP 12–29
[2016-05-10] MEDS: VANCOMYCIN 500MG/NS (PMX) 100 ML IVPB SCH ×2 (00:15→12:56)
[2016-05-10] MEDS: IPRATROPIUM (HFA) 12.9 GM INHALER INH SCH ×4 (01:11→16:54)
[2016-05-10] MEDS: ALBUTEROL HFA 8 GM INHALER INH SCH ×4 (01:11→16:55)
[2016-05-10] MEDS: LORAZEPAM 2 MG INJ IV PRN (02:52)
[2016-05-10] MEDS: morphine 2 MG INJ IV PRN (05:37)
[2016-05-10] MEDS: DEXTROSE 5%-0.45% NACL 1,000 ML IV SCH (05:50)
[2016-05-10 05:53] LABS: ADD SCAN DIFF NO
[2016-05-10 05:55] LABS: BASOPHILS % 0.4 % (0.0-2.0); EOSINOPHILS # 0.1 10^3/ul (0.0-0.5); HEMATOCRIT 34.9 % (42.0-52.0); HEMOGLOBIN 11.1 g/dl (14.0-18.0); LYMPHOCYTES # 0.9 10^3/ul (0.8-2.9); LYMPHOCYTES % 18.5 % (15.0-51.0); MEAN CORPUSCULAR HEMOGLOBIN 27.3 pg (29.0-33.0); MEAN CORPUSCULAR HGB CONC 31.8 g/dl (32.0-37.0); MEAN CORPUSCULAR VOLUME 85.7 fl (82.0-101.0); MEAN PLATELET VOLUME 11.3 fl (7.4-10.4); MONOCYTE # 0.7 10^3/ul (0.3-0.9); MONOCYTES % 13.8 % (0.0-11.0); NEUTROPHIL # 3.4 10^3/ul (1.6-7.5); NEUTROPHILS % 66.1 % (39.0-77.0); PLATELET COUNT 118 10^3/UL (140-415); RED BLOOD COUNT 4.07 10^6/ul (4.70-6.10); RED CELL DISTRIBUTION WIDTH 17.3 % (11.5-14.5); WHITE BLOOD COUNT 5.1 10^3/ul (4.8-10.8)
[2016-05-10] MEDS: LORAZEPAM 1 MG TAB GTB SCH ×4 (06:00→18:00)
[2016-05-10 06:15] LABS: CREATININE 0.54 mg/dl (0.61-1.24)
[2016-05-10 06:16] LABS: CALCIUM 8.8 mg/dl (8.4-10.2)
[2016-05-10] MEDS: LACTULOSE 30ML CUP GTB SCH (08:22)
[2016-05-10] MEDS: FERROUS SULFATE 60 MG/ML 5ML CUP GTB SCH ×2 (08:23→21:29)
[2016-05-10] MEDS: FAMOTIDINE 20 MG TAB GTB SCH ×2 (08:23→21:27)
[2016-05-10] MEDS: QUETIAPINE 25 MG TAB GTB SCH ×2 (08:24→17:00)
[2016-05-10] MEDS: ASCORBIC ACID 500 MG TAB GTB SCH (08:24)
[2016-05-10] MEDS: THIAMINE 100 MG TAB GTB SCH (08:24)
[2016-05-10] MEDS: CALCIUM CARBONATE 500 MG CHEW TAB GTB SCH (08:24)
[2016-05-10] MEDS: ASPIRIN 81 MG TAB PO SCH (08:25)
[2016-05-10] MEDS: CHLORDIAZEPOXIDE 5 MG CAP PO SCH ×3 (08:27→21:27)
[2016-05-10] MEDS: MULTIVITAMINS/MINERALS TAB PO SCH (08:28)
[2016-05-10] MEDS: CHLORHEXIDINE GLUCONATE 15 ML UD CUP MM SCH ×2 (09:00→21:28)
[2016-05-10] MEDS: CEFEPIME 1GM/50 ML (PMX) 50 ML IVPB SCH ×2 (09:58→21:25)
[2016-05-10] MEDS: FUROSEMIDE 20 MG INJ IV SCH ×2 (09:59→22:55)
[2016-05-10] MEDS ORDERED: CEFAZOLIN 1 GM/50 ML (PMX) 50 ML IVPB ONE (10:31)
[2016-05-10] MEDS ORDERED: PROPOFOL 20 ML ONE (11:49)
[2016-05-10] MEDS ORDERED: FENTAnyl 50 MCG/ML VIAL ONE (11:49)
--- NOTE | 2016-05-10 12:19 | CONS ---
Date/Time of Note Date/Time of Note DATE: 05/10/16 TIME: 12:13 Assessment/Plan Assessment/Plan Additional Assessment/Plan Ventilator settings; AC of 12, tidal volume 450, PEEP of 5, 35% FiO2. Assessment recommendations; 1. Patient admitted for right lower lobe pneumonia with initial improvement with subsequent recurrence of pneumonia possibly from aspiration. It has improved clinically. 2. History of alcoholic encephalopathy, exhibiting signs of occasional agitation requiring constant wrist restraints. Neck 3. Respiratory failure due to severe hypercapnia due to hypoventilation. Now requiring full continuous ventilator support. 4. Stable paraplegia. 6. History of hypertension. 7. Cardiomyopathy. Continue current treatment. Obtain a follow-up chest x-ray. Consultation Date/Type/Reason Admit Date/Time Apr 11, 2016 at 22:13 Initial Consult Date 04/12/16 Type of Consultation: Pulmonary Referring Provider: ANNETTA AGUILAR MD 24 HR Interval Summary Free Text/Dictation Patient condition is tenuous at best. Still requiring full ventilator support due to hypoventilation. Patient required intermittent sedation for episodes of agitation. General exam; elderly male, on ventilator via tracheostomy. Patient has soft wrist restraints applied. Which he is requiring almost continuously throughout his stay in the hospital because of attempts to pull various lines and catheters. Exam/Review of Systems Vital Signs Vitals Vital Signs Date Time Temp Pulse Resp B/P Pulse Ox O2 Delivery O2 Flow Rate FiO2 05/10/16 11:06 102 21 96 35 05/10/16 07:13 98.7 146/92 05/09/16 18:00 Mechanical Ventilator Intake and Output 05/09/16 05/09/16 05/10/16 15:00 23:00 07:00 Intake Total 300 ml 510 ml 830 ml Output Total 900 ml 1200 ml Balance 300 ml -390 ml -370 ml Exam HEENT exam; supple neck, no JVD. No lymphadenopathy. Midline trachea. No thyromegaly. Tracheostomy in place. Pupils are midsize and reactive to light. Patient's upper jaw is edentulous. Chest examination; diminished but clear breath sounds in upper lobes but diminished breath sounds in lung bases bilaterally. S1-S2 audible, no murmurs. Regular rhythm. Abdomen examination; soft, nondistended. No organomegaly. Bowel are audible. Extremity examination; no peripheral edema. VAMP PRESSER examination; patient is stable paraplegia. Results Result Diagram: 3/20/17 0543 05/10/16 0543 Results 24 hrs Laboratory Tests Test 05/10/16 05:43 Anion Gap 13 Basophils # 0.0 Basophils % 0.4 Blood Urea Nitrogen 11 Calcium Level 8.8 Carbon Dioxide Level 33 H Chloride Level 97 Creatinine 0.54 L Eosinophils # 0.1 Eosinophils % 1.0 Glucose Level 83 Hematocrit 34.9 L Hemoglobin 11.1 L Lymphocytes # 0.9 Lymphocytes % 18.5 Mean Corpuscular Hemoglobin 27.3 L Mean Corpuscular Hemoglobin Concent 31.8 L Mean Corpuscular Volume 85.7 Mean Platelet Volume 11.3 H Monocytes # 0.7 Monocytes % 13.8 H Neutrophils # 3.4 Neutrophils % 66.1 Nucleated Red Blood Cells # 0.0 Nucleated Red Blood Cells % 0.0 Platelet Count 118 L Potassium Level 3.0 L Red Blood Count 4.07 L Red Cell Distribution Width 17.3 H Sodium Level 140 White Blood Count 5.1 # Medications Medications Current Medications Ondansetron HCl (Zofran Inj) 4 mg Q6H PRN IV NAUSEA AND/OR VOMITING Last administered on 04/24/16 21:00; Admin Dose 4 MG; Start 04/11/16 at 22:30 Acetaminophen (Tylenol Tab) 650 mg Q6H PRN PO PAIN LEVEL 1-3 OR FEVER; Start at 22:30 Morphine Sulfate (morphine) 2 mg Q4H PRN IV PAIN LEVEL 7-10 Last administered on 05/10/16 05:37; Admin Dose 2 MG; Start 04/11/16 at 22:30 Ascorbic Acid (Vitamin C) 500 mg DAILY GTB Last administered on 05/05/16 09:37 ; Admin Dose 500 MG; Start 04/12/16 at 09:00 Bisacodyl (Dulcolax) 10 mg DAILY PRN PO CONSTIPATION; Start 04/11/16 at 22:30 Chlorhexidine Gluconate (Peridex) 15 ml BID MM Last administered on 05/09/16 21:10; Admin Dose 15 ML; Start 04/12/16 at 09:00 Ferrous Sulfate (Feosol Liquid Cup) 300 mg BID GTB Last administered on 21:20; Admin Dose 300 MG; Start 04/12/16 at 09:00 Acetaminophen/ Hydrocodone Bitart ([place] (5/325)) 1 tab Q4 PRN GTB PAIN LEVEL 6 -10; Start 04/11/16 at 22:30 Lactulose (Enulose) 20 gm DAILY GTB Last administered on 05/05/16 09:37; Admin Dose 20 GM; Start 04/12/16 at 09:00 Quetiapine Fumarate (Seroquel) 25 mg BID@ GTB Last administered on 10:00; Admin Dose 25 MG; Start 04/12/16 at 09:00 Quetiapine Fumarate (Seroquel) 200 mg HS GTB Last administered on 05/05/16 21: 20; Admin Dose 200 MG; Start 04/12/16 at 21:00 Senna (Senokot) 1 tab QHS GTB Last administered on 05/05/16 21:20; Admin Dose 1 TAB; Start 04/12/16 at 21:00 Sodium Biphosphate/ Sodium Phosphate (Fleet Enema Pediatric) 66.[address] CONSTIPATION; Start 04/11/16 at 22:30 Thiamine HCl (Vitamin B1) 100 mg DAILY GTB Last administered on 05/05/16 09:37 ; Admin Dose 100 MG; Start 04/12/16 at 09:00 Calcium Carbonate (Tums) 500 mg DAILY GTB Last administered on 05/05/16 09:53 ; Admin Dose 500 MG; Start 04/12/16 at 09:00 Multivitamins/ Minerals (Theragran-M) 1 tab DAILY PO Last administered on 09:37; Admin Dose 1 TAB; Start 04/12/16 at 09:00 Hydralazine HCl (Apresoline) 10 mg Q6H PRN IV SBP >160 Last administered on 16:38; Admin Dose 10 MG; Start 04/12/16 at 12:30 Famotidine (Pepcid) 20 mg Q12 GTB Last administered on 05/05/16 21:21; Admin Dose 20 MG; Start 04/19/16 at 21:00 Lorazepam (Ativan) 1 mg Q4 PRN IV AGITATION/ANXIETY Last administered on 02:52; Admin Dose 1 MG; Start 04/24/16 at 21:00 Clonidine 0.1 mg 0.1 mg Q6H PRN PO ELEVATED BLOOD PRESSURE; Start 04/24/16 at 23 :30 Dextrose/Sodium Chloride (D5-1/2ns) 1,000 ml @ 60 mls/hr [id number] IV Last administered on 05/10/16 05:50; Admin Dose 60 MLS/HR; Start 04/26/16 at 11:30 Metoprolol Tartrate (Lopressor) 5 mg Q4H PRN IV PRN HR>110 Hold SBP<100; Start 04/28/16 at 13:30 Metoprolol Tartrate (Lopressor) 25 mg BID PO Last administered on 04/29/16 21: 29; Admin Dose 25 MG; Start 04/29/16 at 21:00; Status Future Hold Lorazepam (Ativan) 1 mg Q6 GTB Last administered on 05/05/16 18:55; Admin Dose 1 MG; Start 05/02/16 at 00:00 Aspirin 81 mg 81 mg DAILY PO Last administered on 05/05/16 09:37; Admin Dose 81 MG; Start 05/02/16 at 14:30 Cefepime HCl (Maxipime 1gm/50 ml (Pmx)) 50 ml @ 100 mls/hr Q12 IVPB Last administered on 05/09/16 21:10; Admin Dose 100 MLS/HR; Start 05/03/16 at 10:00 Chlordiazepoxide (Librium) 10 mg TID PO Last administered on 05/05/16 21:21; Admin Dose 10 MG; Start 05/04/16 at 09:00 Acetaminophen (Tylenol Liquid) 650 mg Q6H PRN GTB FEVER >101; Start 05/06/16 at 11:30 Furosemide 20 mg 20 mg BID IV Last administered on 05/10/16 09:59; Admin Dose 20 MG; Start 05/06/16 at 21:00 Vancomycin HCl (Vancocin) 100 ml @ 100 mls/hr Q12H IVPB Last administered on 00:15; Admin Dose 100 MLS/HR; Start 05/08/16 at 00:00 Miscellaneous Information (*Rx Drug Level Order Reminder*) 1 ONCE ONCE XX ; Start 05/10/16 at 23:00; Stop 05/10/16 at 23:01 KATHERYN LAWTON May 10, 2016 12:19
--- NOTE | 2016-05-10 13:27 | CONS ---
Date/Time of Note Date/Time of Note DATE: 05/10/16 TIME: 13:22 Assessment/Plan Assessment/Plan Chief Complaint/Hosp Course IMPRESSION: 1. Wide complex tachycardia, cardiac arrhythmia. Rule out nonsustained ventricular tachycardia.-likely c/w abberant AF-no recurrence 2. Abnormal electrocardiogram, assess for acute coronary syndrome. 3. Congestive heart failure by chest x-ray, diastolic by most recent echo acute on chronic. 4. Hypertension with current borderline HOtn s/p IVP hydralazine 5. Respiratory failure, chronic, status post tracheostomy with desat now transferred to ICU 6. Dysphagia, status post G-tube. 7. Psychiatric disorder. 8. Urinary tract infection. 9. Hypokalemia-improved 10. Anemia. 11. Leukopenia. 12.Nstemi-no current chest pain/decreased enzymes 14. Bradycardia-improved Recc: -Tele -Continue to hold BB given prior bradycardia -Continue asa medical therapy for nstemi with currently decreased cardiac enzymes/NO cp -Continue lasix diuresis and consider increase dose to improve diuresis -C discussed with patient but patient does not have clear understanding and would like to wait -LOvenox held due to trach site bleeding -Start ACEI Problems: Consultation Date/Type/Reason Admit Date/Time Apr 11, 2016 at 22:13 Initial Consult Date 04/21/16 Type of Consultation: Cardiology Reason for Consultation NSVT Referring Provider: ANNETTA AGUILAR MD Exam/Review of Systems Vital Signs Vitals Vital Signs Date Time Temp Pulse Resp B/P Pulse Ox O2 Delivery O2 Flow Rate FiO2 05/10/16 11:06 102 21 96 35 05/10/16 07:13 98.7 146/92 05/09/16 18:00 Mechanical Ventilator Intake and Output 05/09/16 05/09/16 05/10/16 15:00 23:00 07:00 Intake Total 300 ml 510 ml 830 ml Output Total 900 ml 1200 ml Balance 300 ml -390 ml -370 ml Exam Review of Systems: CONSTITUTIONAL: No fevers, chills. PULMONARY: No sob CARDIOVASCULAR: No chest pain/palpitations GASTROINTESTINAL: No nausea/vomiting. GENITOURINARY: No hematuria/dysuria. MUSCULOSKELETAL: No myagias/arthalgias. PSYCHIATRIC: The patient denies depression. NEUROLOGIC: No weakness Constitutional: alert Psych: no complaints Head: normocephalic ENMT: mucosa pink and moist Neck: jvd (9cm water), supple Respiratory: diminished breath sounds (at bases/B) Cardiovascular: regular rate and rhythm Gastrointestinal: non-tender, soft Musculoskeletal: muscle tone (normal) Extremities: edema (none) Neurological: other (No focal deficits) Results Result Diagram: 05/10/16 0543 05/10/16 0543 Results 24 hrs Laboratory Tests Test 05/10/16 05:43 Anion Gap 13 Basophils # 0.0 Basophils % 0.4 Blood Urea Nitrogen 11 Calcium Level 8.8 Carbon Dioxide Level 33 H Chloride Level 97 Creatinine 0.54 L Eosinophils # 0.1 Eosinophils % 1.0 Glucose Level 83 Hematocrit 34.9 L Hemoglobin 11.1 L Lymphocytes # 0.9 Lymphocytes % 18.5 Mean Corpuscular Hemoglobin 27.3 L Mean Corpuscular Hemoglobin Concent 31.8 L Mean Corpuscular Volume 85.7 Mean Platelet Volume 11.3 H Monocytes # 0.7 Monocytes % 13.8 H Neutrophils # 3.4 Neutrophils % 66.1 Nucleated Red Blood Cells # 0.0 Nucleated Red Blood Cells % 0.0 Platelet Count 118 L Potassium Level 3.0 L Red Blood Count 4.07 L Red Cell Distribution Width 17.3 H Sodium Level 140 White Blood Count 5.1 # Medications Medications Current Medications Ondansetron HCl (Zofran Inj) 4 mg Q6H PRN IV NAUSEA AND/OR VOMITING Last administered on 04/24/16 21:00; Admin Dose 4 MG; Start 04/11/16 at 22:30 Acetaminophen (Tylenol Tab) 650 mg Q6H PRN PO PAIN LEVEL 1-3 OR FEVER; Start at 22:30 Morphine Sulfate (morphine) 2 mg Q4H PRN IV PAIN LEVEL 7-10 Last administered on 05/10/16 05:37; Admin Dose 2 MG; Start 04/11/16 at 22:30 Ascorbic Acid (Vitamin C) 500 mg DAILY GTB Last administered on 05/05/16 09:37 ; Admin Dose 500 MG; Start 04/12/16 at 09:00 Bisacodyl (Dulcolax) 10 mg DAILY PRN PO CONSTIPATION; Start 04/11/16 at 22:30 Chlorhexidine Gluconate (Peridex) 15 ml BID MM Last administered on 05/10/16 09:00; Admin Dose 15 ML; Start 04/12/16 at 09:00 Ferrous Sulfate (Feosol Liquid Cup) 300 mg BID GTB Last administered on 21:20; Admin Dose 300 MG; Start 04/12/16 at 09:00 Acetaminophen/ Hydrocodone Bitart ([place] (5/325)) 1 tab Q4 PRN GTB PAIN LEVEL 6 -10; Start 04/11/16 at 22:30 Lactulose (Enulose) 20 gm DAILY GTB Last administered on 05/05/16 09:37; Admin Dose 20 GM; Start 04/12/16 at 09:00 Quetiapine Fumarate (Seroquel) 25 mg BID@ GTB Last administered on 10:00; Admin Dose 25 MG; Start 04/12/16 at 09:00 Quetiapine Fumarate (Seroquel) 200 mg HS GTB Last administered on 05/05/16 21: 20; Admin Dose 200 MG; Start 04/12/16 at 21:00 Senna (Senokot) 1 tab QHS GTB Last administered on 05/05/16 21:20; Admin Dose 1 TAB; Start 04/12/16 at 21:00 Sodium Biphosphate/ Sodium Phosphate (Fleet Enema Pediatric) 66.6 ml DAILY PRN [place] CONSTIPATION; Start 04/11/16 at 22:30 Thiamine HCl (Vitamin B1) 100 mg DAILY GTB Last administered on 05/05/16 09:37 ; Admin Dose 100 MG; Start 04/12/16 at 09:00 Calcium Carbonate (Tums) 500 mg DAILY GTB Last administered on 05/05/16 09:53 ; Admin Dose 500 MG; Start 04/12/16 at 09:00 Multivitamins/ Minerals (Theragran-M) 1 tab DAILY PO Last administered on 09:37; Admin Dose 1 TAB; Start 04/12/16 at 09:00 Hydralazine HCl (Apresoline) 10 mg Q6H PRN IV SBP >160 Last administered on 16:38; Admin Dose 10 MG; Start 04/12/16 at 12:30 Famotidine (Pepcid) 20 mg Q12 GTB Last administered on 05/05/16 21:21; Admin Dose 20 MG; Start 04/19/16 at 21:00 Lorazepam (Ativan) 1 mg Q4 PRN IV AGITATION/ANXIETY Last administered on 02:52; Admin Dose 1 MG; Start 04/24/16 at 21:00 Clonidine 0.1 mg 0.1 mg Q6H PRN PO ELEVATED BLOOD PRESSURE; Start 04/24/16 at 23 :30 Dextrose/Sodium Chloride (D5-1/2ns) 1,000 ml @ 60 mls/hr [id number] IV Last administered on 05/10/16 05:50; Admin Dose 60 MLS/HR; Start 04/26/16 at 11:30 Metoprolol Tartrate (Lopressor) 5 mg Q4H PRN IV PRN HR>110 Hold SBP<100; Start 04/28/16 at 13:30 Metoprolol Tartrate (Lopressor) 25 mg BID PO Last administered on 04/29/16 21: 29; Admin Dose 25 MG; Start 04/29/16 at 21:00; Status Future Hold Lorazepam (Ativan) 1 mg Q6 GTB Last administered on 05/05/16 18:55; Admin Dose 1 MG; Start 05/02/16 at 00:00 Aspirin 81 mg 81 mg DAILY PO Last administered on 05/05/16 09:37; Admin Dose 81 MG; Start 05/02/16 at 14:30 Cefepime HCl (Maxipime 1gm/50 ml (Pmx)) 50 ml @ 100 mls/hr Q12 IVPB Last administered on 05/09/16 21:10; Admin Dose 100 MLS/HR; Start 05/03/16 at 10:00 Chlordiazepoxide (Librium) 10 mg TID PO Last administered on 05/05/16 21:21; Admin Dose 10 MG; Start 05/04/16 at 09:00 Acetaminophen (Tylenol Liquid) 650 mg Q6H PRN GTB FEVER >101; Start 05/06/16 at 11:30 Furosemide 20 mg 20 mg BID IV Last administered on 05/10/16 09:59; Admin Dose 20 MG; Start 05/06/16 at 21:00 Vancomycin HCl (Vancocin) 100 ml @ 100 mls/hr Q12H IVPB Last administered on 3 /20/17at 12:56; Admin Dose 100 MLS/HR; Start 05/08/16 at 00:00 Miscellaneous Information (*Rx Drug Level Order Reminder*) 1 ONCE ONCE XX ; Start 05/10/16 at 23:00; Stop 05/10/16 at 23:01 LILI BRADEN May 10, 2016 13:27
--- NOTE | 2016-05-10 14:46 | CONS ---
Date/Time of Note Date/Time of Note DATE: 05/10/16 TIME: 14:45 Assessment/Plan Assessment/Plan Chief Complaint/Hosp Course SUBJECTIVE: No events. The patient is awake, looks comfortable. INDWELLINGS: Trach, left upper extremity PICC line, Rae, PEG. ANTIMICROBIALS: 1. Vancomycin. 2. Cefepime. PHYSICAL EXAMINATION: GENERAL: Chronically ill-appearing elderly man who is lying comfortably in bed. HEENT: Head atraumatic, normocephalic. Sclerae anicteric. Buccal mucosa dry. NECK: Supple. Tracheostomy present. CHEST: Rise symmetrical. Breath sounds diminished to bases. HEART: S1, S2. ABDOMEN: Soft. Bowel tones present. EXTREMITIES: Without cyanosis. ASSESSMENT: 1. Status post endotracheal bleeding. 2. Healthcare-associated pneumonia, recurrent. 3. Status post Escherichia coli extended-spectrum beta-lactamase urinary tract infection with bacteremia. 4. History of schizoaffective disorder. 5. Benign prostatic hypertrophy. PLAN: The patient remains stable. Continue present care, dc abx in am, f/u hematology/pulmonary/GI rec-s [facility] staff Problems: Consultation Date/Type/Reason Admit Date/Time Apr 11, 2016 at 22:13 Initial Consult Date 04/12/16 Type of Consultation: id Referring Provider: ANNETTA AGUILAR MD Exam/Review of Systems Vital Signs Vitals Vital Signs Date Time Temp Pulse Resp B/P Pulse Ox O2 Delivery O2 Flow Rate FiO2 05/10/16 13:10 78 17 96 35 05/10/16 07:13 98.7 146/92 05/09/16 18:00 Mechanical Ventilator Intake and Output 05/09/16 05/09/16 05/10/16 15:00 23:00 07:00 Intake Total 300 ml 510 ml 830 ml Output Total 900 ml 1200 ml Balance 300 ml -390 ml -370 ml Results Result Diagram: 05/10/16 0543 05/10/16 0543 Results 24 hrs Laboratory Tests Test 05/10/16 05:43 Anion Gap 13 Basophils # 0.0 Basophils % 0.4 Blood Urea Nitrogen 11 Calcium Level 8.8 Carbon Dioxide Level 33 H Chloride Level 97 Creatinine 0.54 L Eosinophils # 0.1 Eosinophils % 1.0 Glucose Level 83 Hematocrit 34.9 L Hemoglobin 11.1 L Lymphocytes # 0.9 Lymphocytes % 18.5 Mean Corpuscular Hemoglobin 27.3 L Mean Corpuscular Hemoglobin Concent 31.8 L Mean Corpuscular Volume 85.7 Mean Platelet Volume 11.3 H Monocytes # 0.7 Monocytes % 13.8 H Neutrophils # 3.4 Neutrophils % 66.1 Nucleated Red Blood Cells # 0.0 Nucleated Red Blood Cells % 0.0 Platelet Count 118 L Potassium Level 3.0 L Red Blood Count 4.07 L Red Cell Distribution Width 17.3 H Sodium Level 140 White Blood Count 5.1 # Medications Medications Current Medications Ondansetron HCl (Zofran Inj) 4 mg Q6H PRN IV NAUSEA AND/OR VOMITING Last administered on 04/24/16 21:00; Admin Dose 4 MG; Start 04/11/16 at 22:30 Acetaminophen (Tylenol Tab) 650 mg Q6H PRN PO PAIN LEVEL 1-3 OR FEVER; Start at 22:30 Morphine Sulfate (morphine) 2 mg Q4H PRN IV PAIN LEVEL 7-10 Last administered on 05/10/16 05:37; Admin Dose 2 MG; Start 04/11/16 at 22:30 Ascorbic Acid (Vitamin C) 500 mg DAILY GTB Last administered on 05/05/16 09:37 ; Admin Dose 500 MG; Start 04/12/16 at 09:00 Bisacodyl (Dulcolax) 10 mg DAILY PRN PO CONSTIPATION; Start 04/11/16 at 22:30 Chlorhexidine Gluconate (Peridex) 15 ml BID MM Last administered on 05/10/16 09:00; Admin Dose 15 ML; Start 04/12/16 at 09:00 Ferrous Sulfate (Feosol Liquid Cup) 300 mg BID GTB Last administered on 21:20; Admin Dose 300 MG; Start 04/12/16 at 09:00 Acetaminophen/ Hydrocodone Bitart ([place] (5/325)) 1 tab Q4 PRN GTB PAIN LEVEL 6 -10; Start 04/11/16 at 22:30 Lactulose (Enulose) 20 gm DAILY GTB Last administered on 05/05/16 09:37; Admin Dose 20 GM; Start 04/12/16 at 09:00 Quetiapine Fumarate (Seroquel) 25 mg BID@ GTB Last administered on 10:00; Admin Dose 25 MG; Start 04/12/16 at 09:00 Quetiapine Fumarate (Seroquel) 200 mg HS GTB Last administered on 05/05/16 21: 20; Admin Dose 200 MG; Start 04/12/16 at 21:00 Senna (Senokot) 1 tab QHS GTB Last administered on 05/05/16 21:20; Admin Dose 1 TAB; Start 04/12/16 at 21:00 Sodium Biphosphate/ Sodium Phosphate (Fleet Enema Pediatric) 66.6 ml DAILY PRN [place] CONSTIPATION; Start 04/11/16 at 22:30 Thiamine HCl (Vitamin B1) 100 mg DAILY GTB Last administered on 05/05/16 09:37 ; Admin Dose 100 MG; Start 04/12/16 at 09:00 Calcium Carbonate (Tums) 500 mg DAILY GTB Last administered on 05/05/16 09:53 ; Admin Dose 500 MG; Start 04/12/16 at 09:00 Multivitamins/ Minerals (Theragran-M) 1 tab DAILY PO Last administered on 09:37; Admin Dose 1 TAB; Start 04/12/16 at 09:00 Hydralazine HCl (Apresoline) 10 mg Q6H PRN IV SBP >160 Last administered on 16:38; Admin Dose 10 MG; Start 04/12/16 at 12:30 Famotidine (Pepcid) 20 mg Q12 GTB Last administered on 05/05/16 21:21; Admin Dose 20 MG; Start 04/19/16 at 21:00 Lorazepam (Ativan) 1 mg Q4 PRN IV AGITATION/ANXIETY Last administered on 02:52; Admin Dose 1 MG; Start 04/24/16 at 21:00 Clonidine 0.1 mg 0.1 mg Q6H PRN PO ELEVATED BLOOD PRESSURE; Start 04/24/16 at 23 :30 Dextrose/Sodium Chloride (D5-1/2ns) 1,000 ml @ 60 mls/hr [id number] IV Last administered on 05/10/16 05:50; Admin Dose 60 MLS/HR; Start 04/26/16 at 11:30 Metoprolol Tartrate (Lopressor) 5 mg Q4H PRN IV PRN HR>110 Hold SBP<100; Start 04/28/16 at 13:30 Metoprolol Tartrate (Lopressor) 25 mg BID PO Last administered on 04/29/16 21: 29; Admin Dose 25 MG; Start 04/29/16 at 21:00; Status Future Hold Lorazepam (Ativan) 1 mg Q6 GTB Last administered on 05/05/16 18:55; Admin Dose 1 MG; Start 05/02/16 at 00:00 Aspirin 81 mg 81 mg DAILY PO Last administered on 05/05/16 09:37; Admin Dose 81 MG; Start 05/02/16 at 14:30 Cefepime HCl (Maxipime 1gm/50 ml (Pmx)) 50 ml @ 100 mls/hr Q12 IVPB Last administered on 05/09/16 21:10; Admin Dose 100 MLS/HR; Start 05/03/16 at 10:00 Chlordiazepoxide (Librium) 10 mg TID PO Last administered on 05/05/16 21:21; Admin Dose 10 MG; Start 05/04/16 at 09:00 Acetaminophen (Tylenol Liquid) 650 mg Q6H PRN GTB FEVER >101; Start 05/06/16 at 11:30 Furosemide 20 mg 20 mg BID IV Last administered on 05/10/16 09:59; Admin Dose 20 MG; Start 05/06/16 at 21:00 Vancomycin HCl (Vancocin) 100 ml @ 100 mls/hr Q12H IVPB Last administered on 12:56; Admin Dose 100 MLS/HR; Start 05/08/16 at 00:00 Miscellaneous Information (*Rx Drug Level Order Reminder*) 1 ONCE ONCE XX ; Start 05/10/16 at 23:00; Stop 05/10/16 at 23:01 MARK LONG NP May 10, 2016 14:45
--- NOTE | 2016-05-10 18:48 | PN ---
Date/Time of Note Date/Time of Note DATE: 05/10/16 TIME: 18:45 Assessment/Plan VTE Prophylaxis VTE Prophylaxis Intervention: SCD's Lines/Catheters IV C[facility]ter Type [facility]from [facility] PICC Line Central line still needed: Yes Urinary Cath still in place: No Assessment/Plan Chief Complaint/Hosp Course ASSESSMENT AND PLAN: -Bleeding from tracheostomy site, resolved. -Pancytopenia. Dr Gaona is following in hematology consultation. -Coagulopathy, status post vitamin K, Lovenox is held - NSTEMI, continue aspirin and Lovenox. Dr. Espitia is following patient in cardiology consultation. - Atrial fibrillation with rapid ventricular response. Continue metoprolol. Continue telemetry monitoring. - Bilateral pleural effusions, status post right sided thoracentesis. - Acute hypoxic respiratory failure. Dr. Anderson is following in pulmonology consultation. Continue ventilatory support and bronchodilators. - Possible healthcare-acquired left lower lung pneumonia versus aspiration. Continue antibiotics per ID. Dr. Rojas is following an infection disease consultation. - E. coli ESBL urinary tract infection, status post treatment. - Sepsis with Ecoli ESBL bacteremia 2 UTI, resolved. - Dysphagia, with G-tube. Status post G-tube removal by patient. Status post G-tube placement by Dr. Vegas 05/10. - History of chronic respiratory failure with tracheostomy. - Benign prostatic hypertrophy. - Schizoaffective disorder. Continue Seroquel and Ativan as needed for agitation. Continue Lovenox for deep venous thrombosis prophylaxis and Pepcid for peptic ulcer disease prophylaxis. Further recommendations based on clinical course. Plan of care discussed with Dr. Colunga. Problems: Subjective 24 Hr Interval Summary Free Text/Dictation Patient status post G-tube placement today, pain is well controlled, patient is comfortable on ventilator. Exam/Review of Systems Vital Signs Vitals Vital Signs Date Time Temp Pulse Resp B/P Pulse Ox O2 Delivery O2 Flow Rate FiO2 05/10/16 17:10 60 12 98 35 05/10/16 15:13 98.2 127/84 05/09/16 18:00 Mechanical Ventilator Intake and Output 05/09/16 05/09/16 05/10/16 15:00 23:00 07:00 Intake Total 300 ml 510 ml 830 ml Output Total 900 ml 1200 ml Balance 300 ml -390 ml -370 ml Exam GENERAL: A well-developed, cachectic gentleman, on ventilatory support via tracheostomy. HEENT: Head is atraumatic, normocephalic. LYDIA. NECK: Supple, with tracheostomy at the base of the neck. LUNGS: Diminished at the bases. Patient has scattered severe rhonchi bilaterally. CARDIOVASCULAR: Normal S1, S2. No murmurs, gallops, clicks, rubs noted. ABDOMEN: Flat, soft, nondistended, nontender. Bowel sounds present. G-tube with intact stoma. EXTREMITIES: Contractured. There is no edema, clubbing, cyanosis. Pulses equal bilaterally, 2+. SKIN: There is no rash, petechiae noted. NEUROLOGIC: Awake alert, with intermittent periods of confusion Results Result Diagram: 05/10/1654205/10/16542 Results 24 hrs Laboratory Tests Test 05/10/16 05:43 Anion Gap 13 Basophils # 0.0 Basophils % 0.4 Blood Urea Nitrogen 11 Calcium Level 8.8 Carbon Dioxide Level 33 H Chloride Level 97 Creatinine 0.54 L Eosinophils # 0.1 Eosinophils % 1.0 Glucose Level 83 Hematocrit 34.9 L Hemoglobin 11.1 L Lymphocytes # 0.9 Lymphocytes % 18.5 Mean Corpuscular Hemoglobin 27.3 L Mean Corpuscular Hemoglobin Concent 31.8 L Mean Corpuscular Volume 85.7 Mean Platelet Volume 11.3 H Monocytes # 0.7 Monocytes % 13.8 H Neutrophils # 3.4 Neutrophils % 66.1 Nucleated Red Blood Cells # 0.0 Nucleated Red Blood Cells % 0.0 Platelet Count 118 L Potassium Level 3.0 L Red Blood Count 4.07 L Red Cell Distribution Width 17.3 H Sodium Level 140 White Blood Count 5.1 # Medications Medications Current Medications Ondansetron HCl (Zofran Inj) 4 mg Q6H PRN IV NAUSEA AND/OR VOMITING Last administered on 04/24/16 21:00; Admin Dose 4 MG; Start 04/11/16 at 22:30 Acetaminophen (Tylenol Tab) 650 mg Q6H PRN PO PAIN LEVEL 1-3 OR FEVER; Start at 22:30 Morphine Sulfate (morphine) 2 mg Q4H PRN IV PAIN LEVEL 7-10 Last administered on 05/10/16 05:37; Admin Dose 2 MG; Start 04/11/16 at 22:30 Ascorbic Acid (Vitamin C) 500 mg DAILY GTB Last administered on 05/05/16 09:37 ; Admin Dose 500 MG; Start 04/12/16 at 09:00 Bisacodyl (Dulcolax) 10 mg DAILY PRN PO CONSTIPATION; Start 04/11/16 at 22:30 Chlorhexidine Gluconate (Peridex) 15 ml BID MM Last administered on 05/10/16 09:00; Admin Dose 15 ML; Start 04/12/16 at 09:00 Ferrous Sulfate (Feosol Liquid Cup) 300 mg BID GTB Last administered on 21:20; Admin Dose 300 MG; Start 04/12/16 at 09:00 Acetaminophen/ Hydrocodone Bitart ([place] (5/325)) 1 tab Q4 PRN GTB PAIN LEVEL 6 -10; Start 04/11/16 at 22:30 Lactulose (Enulose) 20 gm DAILY GTB Last administered on 05/05/16 09:37; Admin Dose 20 GM; Start 04/12/16 at 09:00 Quetiapine Fumarate (Seroquel) 25 mg BID@ GTB Last administered on 10:00; Admin Dose 25 MG; Start 04/12/16 at 09:00 Quetiapine Fumarate (Seroquel) 200 mg HS GTB Last administered on 05/05/16 21: 20; Admin Dose 200 MG; Start 04/12/16 at 21:00 Senna (Senokot) 1 tab QHS GTB Last administered on 05/05/16 21:20; Admin Dose 1 TAB; Start 04/12/16 at 21:00 Sodium Biphosphate/ Sodium Phosphate (Fleet Enema Pediatric) 66.6 ml DAILY PRN OR CONSTIPATION; Start 04/11/16 at 22:30 Thiamine HCl (Vitamin B1) 100 mg DAILY GTB Last administered on 05/05/16 09:37 ; Admin Dose 100 MG; Start 04/12/16 at 09:00 Calcium Carbonate (Tums) 500 mg DAILY GTB Last administered on 05/05/16 09:53 ; Admin Dose 500 MG; Start 04/12/16 at 09:00 Multivitamins/ Minerals (Theragran-M) 1 tab DAILY PO Last administered on 09:37; Admin Dose 1 TAB; Start 04/12/16 at 09:00 Hydralazine HCl (Apresoline) 10 mg Q6H PRN IV SBP >160 Last administered on 16:38; Admin Dose 10 MG; Start 04/12/16 at 12:30 Famotidine (Pepcid) 20 mg Q12 GTB Last administered on 05/05/16 21:21; Admin Dose 20 MG; Start 04/19/16 at 21:00 Lorazepam (Ativan) 1 mg Q4 PRN IV AGITATION/ANXIETY Last administered on 02:52; Admin Dose 1 MG; Start 04/24/16 at 21:00 Clonidine 0.1 mg 0.1 mg Q6H PRN PO ELEVATED BLOOD PRESSURE; Start 04/24/16 at 23 :30 Dextrose/Sodium Chloride (D5-1/2ns) 1,000 ml @ 60 mls/hr [id number] IV Last administered on 05/10/16 05:50; Admin Dose 60 MLS/HR; Start 04/26/16 at 11:30 Metoprolol Tartrate (Lopressor) 5 mg Q4H PRN IV PRN HR>110 Hold SBP<100; Start 04/28/16 at 13:30 Metoprolol Tartrate (Lopressor) 25 mg BID PO Last administered on 04/29/16 21: 29; Admin Dose 25 MG; Start 04/29/16 at 21:00; Status Future Hold Lorazepam (Ativan) 1 mg Q6 GTB Last administered on 05/05/16 18:55; Admin Dose 1 MG; Start 05/02/16 at 00:00 Aspirin 81 mg 81 mg DAILY PO Last administered on 05/05/16 09:37; Admin Dose 81 MG; Start 05/02/16 at 14:30 Cefepime HCl (Maxipime 1gm/50 ml (Pmx)) 50 ml @ 100 mls/hr Q12 IVPB Last administered on 05/09/16 21:10; Admin Dose 100 MLS/HR; Start 05/03/16 at 10:00 Chlordiazepoxide (Librium) 10 mg TID PO Last administered on 05/05/16 21:21; Admin Dose 10 MG; Start 05/04/16 at 09:00 Acetaminophen (Tylenol Liquid) 650 mg Q6H PRN GTB FEVER >101; Start 05/06/16 at 11:30 Furosemide 20 mg 20 mg BID IV Last administered on 05/10/16 09:59; Admin Dose 20 MG; Start 05/06/16 at 21:00 Vancomycin HCl (Vancocin) 100 ml @ 100 mls/hr Q12H IVPB Last administered on 12:56; Admin Dose 100 MLS/HR; Start 05/08/16 at 00:00 Miscellaneous Information (*Rx Drug Level Order Reminder*) 1 ONCE ONCE XX ; Start 05/10/16 at 23:00; Stop 05/10/16 at 23:01 SHELBY BUNCH May 10, 2016 18:48
[2016-05-10] MEDS ORDERED: POTASSIUM CHLORIDE 250 ML IVPB ONE (19:00)
[2016-05-10] MEDS: SENNA TAB GTB SCH (21:27)
[2016-05-10] MEDS: QUETIAPINE 100 MG TAB GTB SCH (21:28)
[2016-05-11] VITALS (30 sets, daily range): BP systolic 89–158; BP diastolic 57–84; PULSE 48–74; RESP 12–23
[2016-05-11] MEDS: VANCOMYCIN 500MG/NS (PMX) 100 ML IVPB SCH (00:21)
[2016-05-11] MEDS: DEXTROSE 5%-0.45% NACL 1,000 ML IV SCH (00:36)
[2016-05-11] MEDS: IPRATROPIUM (HFA) 12.9 GM INHALER INH SCH ×4 (01:39→14:04)
[2016-05-11] MEDS: ALBUTEROL HFA 8 GM INHALER INH SCH ×4 (01:39→22:40)
[2016-05-11] MEDS: LORAZEPAM 1 MG TAB GTB SCH ×4 (06:00→17:33)
[2016-05-11 06:50] LABS: ADD SCAN DIFF NO
[2016-05-11 06:52] LABS: ABNORMAL IP MESSAGE 1; BASOPHILS % 0.8 % (0.0-2.0); EOSINOPHILS # 0.2 10^3/ul (0.0-0.5); EOSINOPHILS % 4.1 % (0.0-7.0); HEMATOCRIT 31.7 % (42.0-52.0); LYMPHOCYTES # 1.1 10^3/ul (0.8-2.9); LYMPHOCYTES % 30.6 % (15.0-51.0); MEAN CORPUSCULAR HEMOGLOBIN 27.5 pg (29.0-33.0); MEAN CORPUSCULAR HGB CONC 31.5 g/dl (32.0-37.0); MEAN CORPUSCULAR VOLUME 87.1 fl (82.0-101.0); MEAN PLATELET VOLUME 11.4 fl (7.4-10.4); MONOCYTE # 0.5 10^3/ul (0.3-0.9); MONOCYTES % 13.8 % (0.0-11.0); NEUTROPHIL # 1.9 10^3/ul (1.6-7.5); NEUTROPHILS % 50.7 % (39.0-77.0); PLATELET COUNT 88 10^3/UL (140-415); RED BLOOD COUNT 3.64 10^6/ul (4.70-6.10); RED CELL DISTRIBUTION WIDTH 17.5 % (11.5-14.5); WHITE BLOOD COUNT 3.7 10^3/ul (4.8-10.8)
[2016-05-11 07:06] LABS: POTASSIUM 3.1 mmol/L (3.5-5.1)
[2016-05-11 07:08] LABS: CREATININE 0.49 mg/dl (0.61-1.24)
[2016-05-11 07:09] LABS: CALCIUM 8.4 mg/dl (8.4-10.2)
--- NOTE | 2016-05-11 08:04 | GILP ---
DATE OF PROCEDURE: 05/10/2016 NAME OF PROCEDURE: Esophagogastroduodenoscopy and percutaneous endoscopic gastrostomy tube placemen t. PREOPERATIVE DIAGNOSIS: Patient presenting with history of difficulty in swallowing. He has a trac heostomy and on ventilator. He is unable to swallow, history of malnutrition and had a G-tube in pl iqra which was pulled out. Hence, he needs a new G-tube. POSTOPERATIVE DIAGNOSES: Patient presenting with history of difficulty in swallowing. He has a tra cheostomy and on ventilator. He is unable to swallow, history of malnutrition and had a G-tube in p lace which was pulled out. Hence, he needs a new G-tube. DESCRIPTION OF PROCEDURE: After informed written consent was obtained, the patient was asked to lie in the supine position. Intravenous anesthesia was given by anesthesiologist, Dr. Hankins. Whe n the patient became somnolent, the Olympus video upper endoscope was introduced into the oropharynx , then into the esophagus. Esophagus appeared normal except minimal reflux esophagitis. Scope at t his time was advanced into the stomach. There is evidence of old gastrostomy site noted. Stomach a ppeared normal. Duodenum appeared normal except superficial erosions. At this time, scope was with drawn to the level of the gastric cavity. The anterior abdominal wall was prepared with Betadine an d alcohol and by using the same old gastrostomy site, trocar was inserted through this gastrostomy i nto the stomach and after removing the stylet, the guidewire was inserted into the stomach and the g uidewire was grabbed with a polypectomy snare and the guidewire was brought out through the mouth al jennifer with the endoscope. To this end of the guidewire, a #20 Microvasive G-tube was tied in a loop f ilda and then it was brought out through the abdominal wall incision. Retention bumper was placed over the G-tube close to the skin. Tapered end of the gastrostomy tube was cut and the procedure w as terminated. PLAN: Recommend starting G-tube feeding this evening. Dictated By: CICI ALEJANDRA/DAVID Conf#: [id number] DID#: [id number] CC: ANNETTA AGUILAR MD;*EndCC*
--- NOTE | 2016-05-11 08:57 | RADRPT ---
PROCEDURE: XR Chest. CLINICAL INDICATION: Pneumonia TECHNIQUE: A single AP view of the chest was obtained. COMPARISON: Chest x-ray dated 05/06/2016 FINDINGS: A tracheostomy tube is in place. There is a left upper extremity PICC line with tip near the cavoatr ial junction. There is very mild prominence of the interstitial markings. There is a small right pleural effusion and elevation of the right diaphragm. No pneumothorax is seen. The cardiomediastinal silhouette i s mildly enlarged. Calcifications are seen within the aortic arch. The osseous structures demonstr ate senescent changes. There is an old fracture deformity of the left proximal humerus. IMPRESSION: 1. Interval radiographic resolution of interstitial edema. 2. Elevation of the right diaphragm with small right pleural effusion, increased when compared to t he prior examination. 3. Mild cardiomegaly and aortic atherosclerosis. 4. Tubes and lines, as described above. RPTAT: .Mar Cummins MD, MD Date Time Electronically viewed and signed by .Mar Cummins MD, on 05/11/2016 08:57 .G/
[2016-05-11] MEDS: CHLORHEXIDINE GLUCONATE 15 ML UD CUP MM SCH ×2 (09:12→22:09)
[2016-05-11] MEDS: LACTULOSE 30ML CUP GTB SCH (09:12)
[2016-05-11] MEDS: CEFEPIME 1GM/50 ML (PMX) 50 ML IVPB SCH (09:12)
[2016-05-11] MEDS: FERROUS SULFATE 60 MG/ML 5ML CUP GTB SCH ×2 (09:12→22:09)
[2016-05-11] MEDS: ASCORBIC ACID 500 MG TAB GTB SCH (09:13)
[2016-05-11] MEDS: THIAMINE 100 MG TAB GTB SCH (09:13)
[2016-05-11] MEDS: ASPIRIN 81 MG TAB PO SCH (09:13)
[2016-05-11] MEDS: CALCIUM CARBONATE 500 MG CHEW TAB GTB SCH (09:13)
[2016-05-11] MEDS: MULTIVITAMINS/MINERALS TAB PO SCH (09:13)
[2016-05-11] MEDS: FUROSEMIDE 20 MG INJ IV SCH ×2 (09:13→22:10)
[2016-05-11] MEDS: FAMOTIDINE 20 MG TAB GTB SCH ×2 (09:13→22:09)
[2016-05-11] MEDS: CHLORDIAZEPOXIDE 5 MG CAP PO SCH ×3 (09:14→22:09)
[2016-05-11] MEDS: QUETIAPINE 25 MG TAB GTB SCH ×2 (09:14→17:33)
--- NOTE | 2016-05-11 11:06 | CONS ---
Date/Time of Note Date/Time of Note DATE: 05/11/16 TIME: 11:04 Assessment/Plan Assessment/Plan Additional Assessment/Plan 1. Wide complex tachycardia, cardiac arrhythmia. Rule out nonsustained ventricular tachycardia.-likely c/w abberant AF-no recurrence - IN SINUS NOW - hr well controlled - no new episodes now, med Rx advised 2. Abnormal electrocardiogram, assess for acute coronary syndrome- no intervention planned - BP stable 3. Congestive heart failure by chest x-ray, diastolic by most recent echo acute on chronic- better fluid satus, con't RX 4. Hypertension - BP high now - will adjust Rx as needed 5. Respiratory failure, chronic, status post tracheostomy with recurrent desats - con't resp Rx 6. Dysphagia, status post G-tube. 7. Psychiatric disorder- no agitation now 8. Urinary tract infection- on anti-bx 9. Hypokalemia-improved 10. Anemia. 11. Leukopenia. 12.Nstemi-no current chest pain/decreased enzymes 14. Bradycardia-improved Consultation Date/Type/Reason Admit Date/Time Apr 11, 2016 at 22:13 Initial Consult Date 04/21/16 Type of Consultation: id Referring Provider: ANNETTA AGUILAR MD 24 HR Interval Summary Free Text/Dictation No new arrhythmia episodes. BP stable - con't resp rate. ROS: No fever, no chills, no nausea, no vomiting, no diarrhea/constipation No recent weight changes No chest pain, no PND, no orthopnea + SOB No dizziness, blurred vision No thirst, no heat or cold intolerance Exam/Review of Systems Vital Signs Vitals Vital Signs Date Time Temp Pulse Resp B/P Pulse Ox O2 Delivery O2 Flow Rate FiO2 05/11/16 09:30 54 23 96 50 05/11/16 07:34 98.8 137/69 05/11/16 06:00 Mechanical Ventilator Intake and Output 05/10/16 05/10/16 05/11/16 15:00 23:00 07:00 Intake Total 100 ml 90 ml 1300 ml Output Total 750 ml Balance 100 ml -660 ml 1300 ml Exam General: WN/WD/NAD, AOx 1-2 HEENT: Unicetric/atraumatic/EOMI (does not follow commands) NECK: JVD elevated, no thyromegaly Lymph: no lymphadenopathy HEART: regular with no S3, II/ systolic murmur at apex LUNGS: Coarse sounds ABD: soft, NT, ND, +BS : Intact Neuro: non focal SKIN: chronic changes EXT: trace edema Results Result Diagram: 05/11/16 0626 05/11/16 0626 Results 24 hrs Laboratory Tests Test 05/10/16 23:05 05/11/16 06:26 Vancomycin Level Trough 14.4 Anion Gap 9 Basophils # 0.0 Basophils % 0.8 Blood Urea Nitrogen 11 Calcium Level 8.4 Carbon Dioxide Level 35 H Chloride Level 99 Creatinine 0.49 L Eosinophils # 0.2 Eosinophils % 4.1 Glucose Level 98 Hematocrit 31.7 L Hemoglobin 10.0 L Lymphocytes # 1.1 Lymphocytes % 30.6 Mean Corpuscular Hemoglobin 27.5 L Mean Corpuscular Hemoglobin Concent 31.5 L Mean Corpuscular Volume 87.1 Mean Platelet Volume 11.4 H Monocytes # 0.5 Monocytes % 13.8 H Neutrophils # 1.9 Neutrophils % 50.7 Nucleated Red Blood Cells # 0.0 Nucleated Red Blood Cells % 0.0 Platelet Count 88 #L Potassium Level 3.1 L Red Blood Count 3.64 L Red Cell Distribution Width 17.5 H Sodium Level 140 White Blood Count 3.7 #L Medications Medications Current Medications Ondansetron HCl (Zofran Inj) 4 mg Q6H PRN IV NAUSEA AND/OR VOMITING Last administered on 04/24/16 21:00; Admin Dose 4 MG; Start 04/11/16 at 22:30 Acetaminophen (Tylenol Tab) 650 mg Q6H PRN PO PAIN LEVEL 1-3 OR FEVER; Start at 22:30 Morphine Sulfate (morphine) 2 mg Q4H PRN IV PAIN LEVEL 7-10 Last administered on 05/10/16 05:37; Admin Dose 2 MG; Start 04/11/16 at 22:30 Ascorbic Acid (Vitamin C) 500 mg DAILY GTB Last administered on 05/11/16 09:13 ; Admin Dose 500 MG; Start 04/12/16 at 09:00 Bisacodyl (Dulcolax) 10 mg DAILY PRN PO CONSTIPATION; Start 04/11/16 at 22:30 Chlorhexidine Gluconate (Peridex) 15 ml BID MM Last administered on 05/11/16 09:12; Admin Dose 15 ML; Start 04/12/16 at 09:00 Ferrous Sulfate (Feosol Liquid Cup) 300 mg BID GTB Last administered on 09:12; Admin Dose 300 MG; Start 04/12/16 at 09:00 Acetaminophen/ Hydrocodone Bitart ([place] (5/325)) 1 tab Q4 PRN GTB PAIN LEVEL 6 -10; Start 04/11/16 at 22:30 Lactulose (Enulose) 20 gm DAILY GTB Last administered on 05/11/16 09:12; Admin Dose 20 GM; Start 04/12/16 at 09:00 Quetiapine Fumarate (Seroquel) 25 mg BID@ GTB Last administered on 09:14; Admin Dose 25 MG; Start 04/12/16 at 09:00 Quetiapine Fumarate (Seroquel) 200 mg HS GTB Last administered on 05/10/16 21: 28; Admin Dose 200 MG; Start 04/12/16 at 21:00 Senna (Senokot) 1 tab QHS GTB Last administered on 05/10/16 21:27; Admin Dose 1 TAB; Start 04/12/16 at 21:00 Sodium Biphosphate/ Sodium Phosphate (Fleet Enema Pediatric) 66.6 ml DAILY PRN [place] CONSTIPATION; Start 04/11/16 at 22:30 Thiamine HCl (Vitamin B1) 100 mg DAILY GTB Last administered on 05/11/16 09:13 ; Admin Dose 100 MG; Start 04/12/16 at 09:00 Calcium Carbonate (Tums) 500 mg DAILY GTB Last administered on 05/11/16 09:13 ; Admin Dose 500 MG; Start 04/12/16 at 09:00 Multivitamins/ Minerals (Theragran-M) 1 tab DAILY PO Last administered on 09:13; Admin Dose 1 TAB; Start 04/12/16 at 09:00 Hydralazine HCl (Apresoline) 10 mg Q6H PRN IV SBP >160 Last administered on 16:38; Admin Dose 10 MG; Start 04/12/16 at 12:30 Famotidine (Pepcid) 20 mg Q12 GTB Last administered on 05/11/16 09:13; Admin Dose 20 MG; Start 04/19/16 at 21:00 Lorazepam (Ativan) 1 mg Q4 PRN IV AGITATION/ANXIETY Last administered on 02:52; Admin Dose 1 MG; Start 04/24/16 at 21:00 Clonidine 0.1 mg 0.1 mg Q6H PRN PO ELEVATED BLOOD PRESSURE; Start 04/24/16 at 23 :30 Dextrose/Sodium Chloride (D5-1/2ns) 1,000 ml @ 60 mls/hr [id number] IV Last administered on 05/11/16 00:36; Admin Dose 60 MLS/HR; Start 04/26/16 at 11:30 Metoprolol Tartrate (Lopressor) 5 mg Q4H PRN IV PRN HR>110 Hold SBP<100; Start 04/28/16 at 13:30 Metoprolol Tartrate (Lopressor) 25 mg BID PO Last administered on 04/29/16 21: 29; Admin Dose 25 MG; Start 04/29/16 at 21:00; Status Future Hold Lorazepam (Ativan) 1 mg Q6 GTB Last administered on 05/05/16 18:55; Admin Dose 1 MG; Start 05/02/16 at 00:00 Aspirin (Aspirin) 81 mg DAILY PO Last administered on 05/11/16 09:13; Admin Dose 81 MG; Start 05/02/16 at 14:30 Chlordiazepoxide (Librium) 10 mg TID PO Last administered on 05/11/16 09:14; Admin Dose 10 MG; Start 05/04/16 at 09:00 Acetaminophen (Tylenol Liquid) 650 mg Q6H PRN GTB FEVER >101; Start 05/06/16 at 11:30 Furosemide (Lasix) 20 mg BID IV Last administered on 05/11/16 09:13; Admin Dose 20 MG; Start 05/06/16 at 21:00 MOSHE GARCÍA MD May 11, 2016 11:06
--- NOTE | 2016-05-11 11:13 | CONS ---
Date/Time of Note Date/Time of Note DATE: 05/11/16 TIME: 11:10 Assessment/Plan Assessment/Plan Additional Assessment/Plan Chest x-ray was reviewed from today which is markedly improved. And is now essentially clear. Neck Ventilator settings; AC of 12, tidal volume 450, PEEP of 5, 35% FiO2. Next Assessment recommendations; next 1. Patient admitted for severe right-sided pneumonia with initial improvement but then patient developed severe bilateral pneumonia with marked clinical and radiological improvement now again. 2. History of chronic respiratory failure, patient developing hypercapnia no requiring invasive mechanical ventilation. 3. History of paraplegia. 4. History of alcoholic encephalopathy. 5. CHF. Continue current treatment. Patient is off antibiotics. He can be transferred to a rehab center. Consultation Date/Type/Reason Admit Date/Time Apr 11, 2016 at 22:13 Initial Consult Date 04/12/16 Type of Consultation: Pulmonary Referring Provider: ANNETTA AGUILAR MD 24 HR Interval Summary Free Text/Dictation Patient condition is stable. Remains awake and alert. Still has episodes of confusion and the patient has still to be on soft wrist restraints as he tries to pull various lines and catheters. Next regular exam; elderly male, on ventilator via tracheostomy currently in no distress. Exam/Review of Systems Vital Signs Vitals Vital Signs Date Time Temp Pulse Resp B/P Pulse Ox O2 Delivery O2 Flow Rate FiO2 05/11/16 09:30 54 23 96 50 05/11/16 07:34 98.8 137/69 05/11/16 06:00 Mechanical Ventilator Intake and Output 05/10/16 05/10/16 05/11/16 15:00 23:00 07:00 Intake Total 100 ml 90 ml 1300 ml Output Total 750 ml Balance 100 ml -660 ml 1300 ml Exam H EENT exam; supple neck, no JVD. No lymphadenopathy. Midline trachea. No thyromegaly. Tracheostomy in place. Patient upper jaw is edentulous. Pupils are midsize reactive to light. No neck masses. No thyromegaly. Chest examination; minimally decreased breath on lung bases otherwise clear. S1 -S2 audible, no murmurs. Regular rhythm. Abdomen examination; soft, nondistended. No organomegaly. Bowel is audible. Extremity exam is; no peripheral edema. [employer]INE[employer] examination; patient stable paraplegia. Results Result Diagram: 05/11/16 0626 05/11/16 0626 Results 24 hrs Laboratory Tests Test 05/10/16 23:05 05/11/16 06:26 Vancomycin Level Trough 14.4 Anion Gap 9 Basophils # 0.0 Basophils % 0.8 Blood Urea Nitrogen 11 Calcium Level 8.4 Carbon Dioxide Level 35 H Chloride Level 99 Creatinine 0.49 L Eosinophils # 0.2 Eosinophils % 4.1 Glucose Level 98 Hematocrit 31.7 L Hemoglobin 10.0 L Lymphocytes # 1.1 Lymphocytes % 30.6 Mean Corpuscular Hemoglobin 27.5 L Mean Corpuscular Hemoglobin Concent 31.5 L Mean Corpuscular Volume 87.1 Mean Platelet Volume 11.4 H Monocytes # 0.5 Monocytes % 13.8 H Neutrophils # 1.9 Neutrophils % 50.7 Nucleated Red Blood Cells # 0.0 Nucleated Red Blood Cells % 0.0 Platelet Count 88 #L Potassium Level 3.1 L Red Blood Count 3.64 L Red Cell Distribution Width 17.5 H Sodium Level 140 White Blood Count 3.7 #L Medications Medications Current Medications Ondansetron HCl (Zofran Inj) 4 mg Q6H PRN IV NAUSEA AND/OR VOMITING Last administered on 04/24/16 21:00; Admin Dose 4 MG; Start 04/11/16 at 22:30 Acetaminophen (Tylenol Tab) 650 mg Q6H PRN PO PAIN LEVEL 1-3 OR FEVER; Start at 22:30 Morphine Sulfate (morphine) 2 mg Q4H PRN IV PAIN LEVEL 7-10 Last administered on 05/10/16 05:37; Admin Dose 2 MG; Start 04/11/16 at 22:30 Ascorbic Acid (Vitamin C) 500 mg DAILY GTB Last administered on 05/11/16 09:13 ; Admin Dose 500 MG; Start 04/12/16 at 09:00 Bisacodyl (Dulcolax) 10 mg DAILY PRN PO CONSTIPATION; Start 04/11/16 at 22:30 Chlorhexidine Gluconate (Peridex) 15 ml BID MM Last administered on 05/11/16 09:12; Admin Dose 15 ML; Start 04/12/16 at 09:00 Ferrous Sulfate (Feosol Liquid Cup) 300 mg BID GTB Last administered on 09:12; Admin Dose 300 MG; Start 04/12/16 at 09:00 Acetaminophen/ Hydrocodone Bitart ([place] (5/325)) 1 tab Q4 PRN GTB PAIN LEVEL 6 -10; Start 04/11/16 at 22:30 Lactulose (Enulose) 20 gm DAILY GTB Last administered on 05/11/16 09:12; Admin Dose 20 GM; Start 04/12/16 at 09:00 Quetiapine Fumarate (Seroquel) 25 mg BID@ GTB Last administered on 09:14; Admin Dose 25 MG; Start 04/12/16 at 09:00 Quetiapine Fumarate (Seroquel) 200 mg HS GTB Last administered on 05/10/16 21: 28; Admin Dose 200 MG; Start 04/12/16 at 21:00 Senna (Senokot) 1 tab QHS GTB Last administered on 05/10/16 21:27; Admin Dose 1 TAB; Start 04/12/16 at 21:00 Sodium Biphosphate/ Sodium Phosphate (Fleet Enema Pediatric) 66.6 ml DAILY PRN [place] CONSTIPATION; Start 04/11/16 at 22:30 Thiamine HCl (Vitamin B1) 100 mg DAILY GTB Last administered on 05/11/16 09:13 ; Admin Dose 100 MG; Start 04/12/16 at 09:00 Calcium Carbonate (Tums) 500 mg DAILY GTB Last administered on 05/11/16 09:13 ; Admin Dose 500 MG; Start 04/12/16 at 09:00 Multivitamins/ Minerals (Theragran-M) 1 tab DAILY PO Last administered on 09:13; Admin Dose 1 TAB; Start 04/12/16 at 09:00 Hydralazine HCl (Apresoline) 10 mg Q6H PRN IV SBP >160 Last administered on 16:38; Admin Dose 10 MG; Start 04/12/16 at 12:30 Famotidine (Pepcid) 20 mg Q12 GTB Last administered on 05/11/16 09:13; Admin Dose 20 MG; Start 04/19/16 at 21:00 Lorazepam (Ativan) 1 mg Q4 PRN IV AGITATION/ANXIETY Last administered on 02:52; Admin Dose 1 MG; Start 04/24/16 at 21:00 Clonidine 0.1 mg 0.1 mg Q6H PRN PO ELEVATED BLOOD PRESSURE; Start 04/24/16 at 23 :30 Dextrose/Sodium Chloride (D5-1/2ns) 1,000 ml @ 60 mls/hr [id number] IV Last administered on 05/11/16 00:36; Admin Dose 60 MLS/HR; Start 04/26/16 at 11:30 Metoprolol Tartrate (Lopressor) 5 mg Q4H PRN IV PRN HR>110 Hold SBP<100; Start 04/28/16 at 13:30 Metoprolol Tartrate (Lopressor) 25 mg BID PO Last administered on 04/29/16 21: 29; Admin Dose 25 MG; Start 04/29/16 at 21:00; Status Future Hold Lorazepam (Ativan) 1 mg Q6 GTB Last administered on 05/05/16 18:55; Admin Dose 1 MG; Start 05/02/16 at 00:00 Aspirin (Aspirin) 81 mg DAILY PO Last administered on 05/11/16 09:13; Admin Dose 81 MG; Start 05/02/16 at 14:30 Chlordiazepoxide (Librium) 10 mg TID PO Last administered on 05/11/16 09:14; Admin Dose 10 MG; Start 05/04/16 at 09:00 Acetaminophen (Tylenol Liquid) 650 mg Q6H PRN GTB FEVER >101; Start 05/06/16 at 11:30 Furosemide (Lasix) 20 mg BID IV Last administered on 05/11/16 09:13; Admin Dose 20 MG; Start 05/06/16 at 21:00 KATHERYN LAWTON May 11, 2016 11:13
--- NOTE | 2016-05-11 14:12 | CONS ---
Date/Time of Note Date/Time of Note DATE: 05/11/16 TIME: 14:08 Assessment/Plan Assessment/Plan Chief Complaint/Hosp Course 65 up male with acute hypoxic respiratory failure being admitted for sepsis secondary to ESBL bacteremia. Pt had a worsening normocytic anemia that was likely secondary to his underlying sepsis and antibiotic use. Pt is now off antibiotic and Hg has remained stable. PT had a bleeding trach site and found with and elevated PTT to 85. Pt was given SQ Vitamin K. He is no longer bleeding and PTT has decreased to 50's # Anemia -slight drop in Hg likely post procedural -continue to monitor Hg. if < 8 will consider transfusion. CBC is improving -s/p 5 days of V iron. now on po iron # Bleeding trach -resolved -not coagulopathic. PTT ok #Pneumonia -continue antibiotics Approximately 40 min were spent at patient's bedside and in coordination of his care Problems: (1) Pneumonia Status: Chronic (2) Bleeding Status: Resolved (3) Normocytic anemia Status: Acute (4) Acute respiratory failure with hypoxia Status: Acute Consultation Date/Type/Reason Admit Date/Time Apr 11, 2016 at 22:13 Initial Consult Date 04/21/16 Type of Consultation: hematology Reason for Consultation anemia Referring Provider: ANNETTA AGUILAR MD 24 HR Interval Summary Free Text/Dictation no acute overnight events. pt is not bleeding from trach site. pt is s/p egd with g tube placement. continues on vancomycin and ceftriaxone Exam/Review of Systems Vital Signs Vitals Vital Signs Date Time Temp Pulse Resp B/P Pulse Ox O2 Delivery O2 Flow Rate FiO2 05/11/16 12:17 60 05/11/16 11:47 30 05/11/16 11:32 98.0 18 119/70 100 05/11/16 10:00 Mechanical Ventilator Intake and Output 05/10/16 05/10/16 05/11/16 15:00 23:00 07:00 Intake Total 100 ml 90 ml 1300 ml Output Total 750 ml Balance 100 ml -660 ml 1300 ml Exam Constitutional: alert, oriented Head: normocephalic Eyes: nl conjunctiva ENMT: other (trach in place) Respiratory: clear to auscultation Cardiovascular: regular rate and rhythm Gastrointestinal: soft Musculoskeletal: nl extremities to inspection, nl gait and stance Results Result Diagram: 05/11/1662505/11/16625 Results 24 hrs Laboratory Tests Test 05/10/16 23:05 05/11/16 06:26 Vancomycin Level Trough 14.4 Anion Gap 9 Basophils # 0.0 Basophils % 0.8 Blood Urea Nitrogen 11 Calcium Level 8.4 Carbon Dioxide Level 35 H Chloride Level 99 Creatinine 0.49 L Eosinophils # 0.2 Eosinophils % 4.1 Glucose Level 98 Hematocrit 31.7 L Hemoglobin 10.0 L Lymphocytes # 1.1 Lymphocytes % 30.6 Mean Corpuscular Hemoglobin 27.5 L Mean Corpuscular Hemoglobin Concent 31.5 L Mean Corpuscular Volume 87.1 Mean Platelet Volume 11.4 H Monocytes # 0.5 Monocytes % 13.8 H Neutrophils # 1.9 Neutrophils % 50.7 Nucleated Red Blood Cells # 0.0 Nucleated Red Blood Cells % 0.0 Platelet Count 88 #L Potassium Level 3.1 L Red Blood Count 3.64 L Red Cell Distribution Width 17.5 H Sodium Level 140 White Blood Count 3.7 #L Medications Medications Current Medications Ondansetron HCl (Zofran Inj) 4 mg Q6H PRN IV NAUSEA AND/OR VOMITING Last administered on 04/24/16 21:00; Admin Dose 4 MG; Start 04/11/16 at 22:30 Acetaminophen (Tylenol Tab) 650 mg Q6H PRN PO PAIN LEVEL 1-3 OR FEVER; Start at 22:30 Morphine Sulfate (morphine) 2 mg Q4H PRN IV PAIN LEVEL 7-10 Last administered on 05/10/16 05:37; Admin Dose 2 MG; Start 04/11/16 at 22:30 Ascorbic Acid (Vitamin C) 500 mg DAILY GTB Last administered on 05/11/16 09:13 ; Admin Dose 500 MG; Start 04/12/16 at 09:00 Bisacodyl (Dulcolax) 10 mg DAILY PRN PO CONSTIPATION; Start 04/11/16 at 22:30 Chlorhexidine Gluconate (Peridex) 15 ml BID MM Last administered on 05/11/16 09:12; Admin Dose 15 ML; Start 04/12/16 at 09:00 Ferrous Sulfate (Feosol Liquid Cup) 300 mg BID GTB Last administered on 09:12; Admin Dose 300 MG; Start 04/12/16 at 09:00 Acetaminophen/ Hydrocodone Bitart ([place] (5/325)) 1 tab Q4 PRN GTB PAIN LEVEL 6 -10; Start 04/11/16 at 22:30 Lactulose (Enulose) 20 gm DAILY GTB Last administered on 05/11/16 09:12; Admin Dose 20 GM; Start 04/12/16 at 09:00 Quetiapine Fumarate (Seroquel) 25 mg BID@ GTB Last administered on 09:14; Admin Dose 25 MG; Start 04/12/16 at 09:00 Quetiapine Fumarate (Seroquel) 200 mg HS GTB Last administered on 05/10/16 21: 28; Admin Dose 200 MG; Start 04/12/16 at 21:00 Senna (Senokot) 1 tab QHS GTB Last administered on 05/10/16 21:27; Admin Dose 1 TAB; Start 04/12/16 at 21:00 Sodium Biphosphate/ Sodium Phosphate (Fleet Enema Pediatric) 66.6 ml DAILY PRN [place] CONSTIPATION; Start 04/11/16 at 22:30 Thiamine HCl (Vitamin B1) 100 mg DAILY GTB Last administered on 05/11/16 09:13 ; Admin Dose 100 MG; Start 04/12/16 at 09:00 Calcium Carbonate (Tums) 500 mg DAILY GTB Last administered on 05/11/16 09:13 ; Admin Dose 500 MG; Start 04/12/16 at 09:00 Multivitamins/ Minerals (Theragran-M) 1 tab DAILY PO Last administered on 09:13; Admin Dose 1 TAB; Start 04/12/16 at 09:00 Hydralazine HCl (Apresoline) 10 mg Q6H PRN IV SBP >160 Last administered on 16:38; Admin Dose 10 MG; Start 04/12/16 at 12:30 Famotidine (Pepcid) 20 mg Q12 GTB Last administered on 05/11/16 09:13; Admin Dose 20 MG; Start 04/19/16 at 21:00 Lorazepam (Ativan) 1 mg Q4 PRN IV AGITATION/ANXIETY Last administered on 02:52; Admin Dose 1 MG; Start 04/24/16 at 21:00 Clonidine 0.1 mg 0.1 mg Q6H PRN PO ELEVATED BLOOD PRESSURE; Start 04/24/16 at 23 :30 Dextrose/Sodium Chloride (D5-1/2ns) 1,000 ml @ 60 mls/hr [id number] IV Last administered on 05/11/16 00:36; Admin Dose 60 MLS/HR; Start 04/26/16 at 11:30 Metoprolol Tartrate (Lopressor) 5 mg Q4H PRN IV PRN HR>110 Hold SBP<100; Start 04/28/16 at 13:30 Metoprolol Tartrate (Lopressor) 25 mg BID PO Last administered on 04/29/16 21: 29; Admin Dose 25 MG; Start 04/29/16 at 21:00; Status Future Hold Lorazepam (Ativan) 1 mg Q6 GTB Last administered on 05/11/16 12:03; Admin Dose 1 MG; Start 05/02/16 at 00:00 Aspirin (Aspirin) 81 mg DAILY PO Last administered on 05/11/16 09:13; Admin Dose 81 MG; Start 05/02/16 at 14:30 Chlordiazepoxide (Librium) 10 mg TID PO Last administered on 05/11/16 12:03; Admin Dose 10 MG; Start 05/04/16 at 09:00 Acetaminophen (Tylenol Liquid) 650 mg Q6H PRN GTB FEVER >101; Start 05/06/16 at 11:30 Furosemide (Lasix) 20 mg BID IV Last administered on 05/11/16 09:13; Admin Dose 20 MG; Start 05/06/16 at 21:00 JESI MONTEMAYOR M.D. May 11, 2016 14:12
--- NOTE | 2016-05-11 15:06 | CONS ---
Date/Time of Note Date/Time of Note DATE: 05/11/16 TIME: 15:05 Assessment/Plan Assessment/Plan Chief Complaint/Hosp Course SUBJECTIVE: No events. The patient is awake, looks comfortable. INDWELLINGS: Trach, left upper extremity PICC line, Rae, PEG. ANTIMICROBIALS: 1. Vancomycin. 2. Cefepime. PHYSICAL EXAMINATION: GENERAL: Chronically ill-appearing elderly man who is lying comfortably in bed. HEENT: Head atraumatic, normocephalic. Sclerae anicteric. Buccal mucosa dry. NECK: Supple. Tracheostomy present. CHEST: Rise symmetrical. Breath sounds diminished to bases. HEART: S1, S2. ABDOMEN: Soft. Bowel tones present. EXTREMITIES: Without cyanosis. ASSESSMENT: 1. Status post endotracheal bleeding. 2. Healthcare-associated pneumonia, recurrent. 3. Status post Escherichia coli extended-spectrum beta-lactamase urinary tract infection with bacteremia. 4. History of schizoaffective disorder. 5. Benign prostatic hypertrophy. PLAN: The patient remains stable. Dc abx, potter cx prn DW staff Problems: Consultation Date/Type/Reason Admit Date/Time Apr 11, 2016 at 22:13 Initial Consult Date 04/12/16 Type of Consultation: id Referring Provider: ANNETTA AGUILAR MD Exam/Review of Systems Vital Signs Vitals Vital Signs Date Time Temp Pulse Resp B/P Pulse Ox O2 Delivery O2 Flow Rate FiO2 05/11/16 14:00 98.1 49 20 118/80 100 Mechanical Ventilator 05/11/16 13:10 40 Intake and Output 05/10/16 05/10/16 05/11/16 14:59 22:59 06:59 Intake Total 100 ml 90 ml 1300 ml Output Total 750 ml Balance 100 ml -660 ml 1300 ml Results Result Diagram: 05/11/16 0626 05/11/16 0626 Results 24 hrs Laboratory Tests Test 05/10/16 23:05 05/11/16 06:26 Vancomycin Level Trough 14.4 Anion Gap 9 Basophils # 0.0 Basophils % 0.8 Blood Urea Nitrogen 11 Calcium Level 8.4 Carbon Dioxide Level 35 H Chloride Level 99 Creatinine 0.49 L Eosinophils # 0.2 Eosinophils % 4.1 Glucose Level 98 Hematocrit 31.7 L Hemoglobin 10.0 L Lymphocytes # 1.1 Lymphocytes % 30.6 Mean Corpuscular Hemoglobin 27.5 L Mean Corpuscular Hemoglobin Concent 31.5 L Mean Corpuscular Volume 87.1 Mean Platelet Volume 11.4 H Monocytes # 0.5 Monocytes % 13.8 H Neutrophils # 1.9 Neutrophils % 50.7 Nucleated Red Blood Cells # 0.0 Nucleated Red Blood Cells % 0.0 Platelet Count 88 #L Potassium Level 3.1 L Red Blood Count 3.64 L Red Cell Distribution Width 17.5 H Sodium Level 140 White Blood Count 3.7 #L Medications Medications Current Medications Ondansetron HCl (Zofran Inj) 4 mg Q6H PRN IV NAUSEA AND/OR VOMITING Last administered on 04/24/16 21:00; Admin Dose 4 MG; Start 04/11/16 at 22:30 Acetaminophen (Tylenol Tab) 650 mg Q6H PRN PO PAIN LEVEL 1-3 OR FEVER; Start at 22:30 Morphine Sulfate (morphine) 2 mg Q4H PRN IV PAIN LEVEL 7-10 Last administered on 05/10/16 05:37; Admin Dose 2 MG; Start 04/11/16 at 22:30 Ascorbic Acid (Vitamin C) 500 mg DAILY GTB Last administered on 05/11/16 09:13 ; Admin Dose 500 MG; Start 04/12/16 at 09:00 Bisacodyl (Dulcolax) 10 mg DAILY PRN PO CONSTIPATION; Start 04/11/16 at 22:30 Chlorhexidine Gluconate (Peridex) 15 ml BID MM Last administered on 05/11/16 09:12; Admin Dose 15 ML; Start 04/12/16 at 09:00 Ferrous Sulfate (Feosol Liquid Cup) 300 mg BID GTB Last administered on 09:12; Admin Dose 300 MG; Start 04/12/16 at 09:00 Acetaminophen/ Hydrocodone Bitart ([place] (5/325)) 1 tab Q4 PRN GTB PAIN LEVEL 6 -10; Start 04/11/16 at 22:30 Lactulose (Enulose) 20 gm DAILY GTB Last administered on 05/11/16 09:12; Admin Dose 20 GM; Start 04/12/16 at 09:00 Quetiapine Fumarate (Seroquel) 25 mg BID@ GTB Last administered on 09:14; Admin Dose 25 MG; Start 04/12/16 at 09:00 Quetiapine Fumarate (Seroquel) 200 mg HS GTB Last administered on 05/10/16 21: 28; Admin Dose 200 MG; Start 04/12/16 at 21:00 Senna (Senokot) 1 tab QHS GTB Last administered on 05/10/16 21:27; Admin Dose 1 TAB; Start 04/12/16 at 21:00 Sodium Biphosphate/ Sodium Phosphate (Fleet Enema Pediatric) 66.6 ml DAILY PRN [place] CONSTIPATION; Start 04/11/16 at 22:30 Thiamine HCl (Vitamin B1) 100 mg DAILY GTB Last administered on 05/11/16 09:13 ; Admin Dose 100 MG; Start 04/12/16 at 09:00 Calcium Carbonate (Tums) 500 mg DAILY GTB Last administered on 05/11/16 09:13 ; Admin Dose 500 MG; Start 04/12/16 at 09:00 Multivitamins/ Minerals (Theragran-M) 1 tab DAILY PO Last administered on 09:13; Admin Dose 1 TAB; Start 04/12/16 at 09:00 Hydralazine HCl (Apresoline) 10 mg Q6H PRN IV SBP >160 Last administered on 16:38; Admin Dose 10 MG; Start 04/12/16 at 12:30 Famotidine (Pepcid) 20 mg Q12 GTB Last administered on 05/11/16 09:13; Admin Dose 20 MG; Start 04/19/16 at 21:00 Lorazepam (Ativan) 1 mg Q4 PRN IV AGITATION/ANXIETY Last administered on 02:52; Admin Dose 1 MG; Start 04/24/16 at 21:00 Clonidine 0.1 mg 0.1 mg Q6H PRN PO ELEVATED BLOOD PRESSURE; Start 04/24/16 at 23 :30 Dextrose/Sodium Chloride (D5-1/2ns) 1,000 ml @ 60 mls/hr [id number] IV Last administered on 05/11/16 00:36; Admin Dose 60 MLS/HR; Start 04/26/16 at 11:30 Metoprolol Tartrate (Lopressor) 5 mg Q4H PRN IV PRN HR>110 Hold SBP<100; Start 04/28/16 at 13:30 Metoprolol Tartrate (Lopressor) 25 mg BID PO Last administered on 04/29/16 21: 29; Admin Dose 25 MG; Start 04/29/16 at 21:00; Status Future Hold Lorazepam (Ativan) 1 mg Q6 GTB Last administered on 05/11/16 12:03; Admin Dose 1 MG; Start 05/02/16 at 00:00 Aspirin (Aspirin) 81 mg DAILY PO Last administered on 05/11/16 09:13; Admin Dose 81 MG; Start 05/02/16 at 14:30 Chlordiazepoxide (Librium) 10 mg TID PO Last administered on 05/11/16 12:03; Admin Dose 10 MG; Start 05/04/16 at 09:00 Acetaminophen (Tylenol Liquid) 650 mg Q6H PRN GTB FEVER >101; Start 05/06/16 at 11:30 Furosemide (Lasix) 20 mg BID IV Last administered on 05/11/16 09:13; Admin Dose 20 MG; Start 05/06/16 at 21:00 MARK LONG NP May 11, 2016 15:06
--- NOTE | 2016-05-11 16:26 | PN ---
Date/Time of Note Date/Time of Note DATE: 05/11/16 TIME: 16:24 Assessment/Plan VTE Prophylaxis VTE Prophylaxis Intervention: SCD's Lines/Catheters IV Catheter Type (from [facility]): PICC Line Central line still needed: Yes Urinary Cath still in place: No Assessment/Plan Chief Complaint/Hosp Course ASSESSMENT AND PLAN: -Bleeding from tracheostomy site, resolved. -Pancytopenia. Dr Gaona is following in hematology consultation. -Coagulopathy, status post vitamin K, Lovenox is held - NSTEMI, continue aspirin and Lovenox. Dr. Espitia is following patient in cardiology consultation. - Atrial fibrillation with rapid ventricular response. Continue metoprolol. Continue telemetry monitoring. - Bilateral pleural effusions, status post right sided thoracentesis. - Acute hypoxic respiratory failure. Dr. Anderson is following in pulmonology consultation. Continue ventilatory support and bronchodilators. - Possible healthcare-acquired left lower lung pneumonia versus aspiration. Continue antibiotics per ID. Dr. Rojas is following an infection disease consultation. - E. coli ESBL urinary tract infection, status post treatment. - Sepsis with Ecoli ESBL bacteremia 2 UTI, resolved. - Dysphagia, with G-tube. Status post G-tube removal by patient. Status post G-tube placement by Dr. Vegas 05/10. - History of chronic respiratory failure with tracheostomy. - Benign prostatic hypertrophy. - Schizoaffective disorder. Continue Seroquel and Ativan as needed for agitation. Continue Lovenox for deep venous thrombosis prophylaxis and Pepcid for peptic ulcer disease prophylaxis. Further recommendations based on clinical course. Plan of care discussed with Dr. Colunga. Problems: Subjective 24 Hr Interval Summary Free Text/Dictation Patient tolerates G-tube feeding at the rate of 25, will increase G-tube feeding according to gastroenterology recommendations, continue to monitor residual. Patient remains afebrile. Exam/Review of Systems Vital Signs Vitals Vital Signs Date Time Temp Pulse Resp B/P Pulse Ox O2 Delivery O2 Flow Rate FiO2 05/11/16 15:30 97.4 57 20 143/84 100 05/11/16 15:05 40 05/11/16 14:00 Mechanical Ventilator Intake and Output 05/10/16 05/10/16 05/11/16 15:00 23:00 07:00 Intake Total 100 ml 90 ml 1300 ml Output Total 750 ml Balance 100 ml -660 ml 1300 ml Exam GENERAL: A well-developed, cachectic gentleman, on ventilatory support via tracheostomy. HEENT: Head is atraumatic, normocephalic. LYDIA. NECK: Supple, with tracheostomy at the base of the neck. LUNGS: Diminished at the bases. Patient has scattered severe rhonchi bilaterally. CARDIOVASCULAR: Normal S1, S2. No murmurs, gallops, clicks, rubs noted. ABDOMEN: Flat, soft, nondistended, nontender. Bowel sounds present. G-tube with intact stoma. EXTREMITIES: Contractured. There is no edema, clubbing, cyanosis. Pulses equal bilaterally, 2+. SKIN: There is no rash, petechiae noted. NEUROLOGIC: Awake alert, with intermittent periods of confusion Results Result Diagram: 05/11/1662505/11/16 06 Results 24 hrs Laboratory Tests Test 05/10/16 23:05 05/11/16 06:26 Vancomycin Level Trough 14.4 Anion Gap 9 Basophils # 0.0 Basophils % 0.8 Blood Urea Nitrogen 11 Calcium Level 8.4 Carbon Dioxide Level 35 H Chloride Level 99 Creatinine 0.49 L Eosinophils # 0.2 Eosinophils % 4.1 Glucose Level 98 Hematocrit 31.7 L Hemoglobin 10.0 L Lymphocytes # 1.1 Lymphocytes % 30.6 Mean Corpuscular Hemoglobin 27.5 L Mean Corpuscular Hemoglobin Concent 31.5 L Mean Corpuscular Volume 87.1 Mean Platelet Volume 11.4 H Monocytes # 0.5 Monocytes % 13.8 H Neutrophils # 1.9 Neutrophils % 50.7 Nucleated Red Blood Cells # 0.0 Nucleated Red Blood Cells % 0.0 Platelet Count 88 #L Potassium Level 3.1 L Red Blood Count 3.64 L Red Cell Distribution Width 17.5 H Sodium Level 140 White Blood Count 3.7 #L Medications Medications Current Medications Ondansetron HCl (Zofran Inj) 4 mg Q6H PRN IV NAUSEA AND/OR VOMITING Last administered on 04/24/16t 21:00; Admin Dose 4 MG; Start 04/11/16 at 22:30 Acetaminophen (Tylenol Tab) 650 mg Q6H PRN PO PAIN LEVEL 1-3 OR FEVER; Start at 22:30 Morphine Sulfate (morphine) 2 mg Q4H PRN IV PAIN LEVEL 7-10 Last administered on 05/10/16 05:37; Admin Dose 2 MG; Start 04/11/16 at 22:30 Ascorbic Acid (Vitamin C) 500 mg DAILY GTB Last administered on 05/11/16 09:13 ; Admin Dose 500 MG; Start 04/12/16 at 09:00 Bisacodyl (Dulcolax) 10 mg DAILY PRN PO CONSTIPATION; Start 04/11/16 at 22:30 Chlorhexidine Gluconate (Peridex) 15 ml BID MM Last administered on 05/11/16 09:12; Admin Dose 15 ML; Start 04/12/16 at 09:00 Ferrous Sulfate (Feosol Liquid Cup) 300 mg BID GTB Last administered on 09:12; Admin Dose 300 MG; Start 04/12/16 at 09:00 Acetaminophen/ Hydrocodone Bitart ([place] (5/325)) 1 tab Q4 PRN GTB PAIN LEVEL 6 -10; Start 04/11/16 at 22:30 Lactulose (Enulose) 20 gm DAILY GTB Last administered on 05/11/16 09:12; Admin Dose 20 GM; Start 04/12/16 at 09:00 Quetiapine Fumarate (Seroquel) 25 mg BID@ GTB Last administered on 09:14; Admin Dose 25 MG; Start 04/12/16 at 09:00 Quetiapine Fumarate (Seroquel) 200 mg HS GTB Last administered on 05/10/16 21: 28; Admin Dose 200 MG; Start 04/12/16 at 21:00 Senna (Senokot) 1 tab QHS GTB Last administered on 05/10/16 21:27; Admin Dose 1 TAB; Start 04/12/16 at 21:00 Sodium Biphosphate/ Sodium Phosphate (Fleet Enema Pediatric) 66.6 ml DAILY PRN [place] CONSTIPATION; Start 04/11/16 at 22:30 Thiamine HCl (Vitamin B1) 100 mg DAILY GTB Last administered on 05/11/16 09:13 ; Admin Dose 100 MG; Start 04/12/16 at 09:00 Calcium Carbonate (Tums) 500 mg DAILY GTB Last administered on 05/11/16 09:13 ; Admin Dose 500 MG; Start 04/12/16 at 09:00 Multivitamins/ Minerals (Theragran-M) 1 tab DAILY PO Last administered on 09:13; Admin Dose 1 TAB; Start 04/12/16 at 09:00 Hydralazine HCl (Apresoline) 10 mg Q6H PRN IV SBP >160 Last administered on 16:38; Admin Dose 10 MG; Start 04/12/16 at 12:30 Famotidine (Pepcid) 20 mg Q12 GTB Last administered on 05/11/16 09:13; Admin Dose 20 MG; Start 04/19/16 at 21:00 Lorazepam (Ativan) 1 mg Q4 PRN IV AGITATION/ANXIETY Last administered on 02:52; Admin Dose 1 MG; Start 04/24/16 at 21:00 Clonidine 0.1 mg 0.1 mg Q6H PRN PO ELEVATED BLOOD PRESSURE; Start 04/24/16 at 23 :30 Dextrose/Sodium Chloride (D5-1/2ns) 1,000 ml @ 60 mls/hr [id number] IV Last administered on 05/11/16 00:36; Admin Dose 60 MLS/HR; Start 04/26/16 at 11:30 Metoprolol Tartrate (Lopressor) 5 mg Q4H PRN IV PRN HR>110 Hold SBP<100; Start 04/28/16 at 13:30 Metoprolol Tartrate (Lopressor) 25 mg BID PO Last administered on 04/29/16 21: 29; Admin Dose 25 MG; Start 04/29/16 at 21:00; Status Future Hold Lorazepam (Ativan) 1 mg Q6 GTB Last administered on 05/11/16 12:03; Admin Dose 1 MG; Start 05/02/16 at 00:00 Aspirin (Aspirin) 81 mg DAILY PO Last administered on 05/11/16 09:13; Admin Dose 81 MG; Start 05/02/16 at 14:30 Chlordiazepoxide (Librium) 10 mg TID PO Last administered on 05/11/16 12:03; Admin Dose 10 MG; Start 05/04/16 at 09:00 Acetaminophen (Tylenol Liquid) 650 mg Q6H PRN GTB FEVER >101; Start 05/06/16 at 11:30 Furosemide (Lasix) 20 mg BID IV Last administered on 05/11/16t 09:13; Admin Dose 20 MG; Start 05/06/16 at 21:00 SHELBY BUNCH May 11, 2016 16:26
[2016-05-11] MEDS ORDERED: POTASSIUM CHLORIDE 20 MEQ POWDER FOR ORAL SOLN GTB ONE (16:30)
[2016-05-11] MEDS ORDERED: POTASSIUM CHLORIDE 30 MEQ in SOD CHLORIDE 0.9% 150 ML IVPB ONE (17:30)
[2016-05-11] MEDS: 1/2 NS + KCL 20 MEQ 1,000 ML IV SCH (17:34)
[2016-05-11] MEDS: QUETIAPINE 100 MG TAB GTB SCH (22:09)
[2016-05-11] MEDS: SENNA TAB GTB SCH (22:09)
[2016-05-12] VITALS (28 sets, daily range): BP systolic 133–160; BP diastolic 67–100; PULSE 53–85; RESP 12–20
[2016-05-12] MEDS: ALBUTEROL HFA 8 GM INHALER INH SCH ×4 (01:44→19:35)
[2016-05-12] MEDS: IPRATROPIUM (HFA) 12.9 GM INHALER INH SCH ×4 (01:44→19:34)
[2016-05-12] MEDS: LORAZEPAM 1 MG TAB GTB SCH ×4 (03:11→17:02)
[2016-05-12 07:26] LABS: ADD SCAN DIFF NO
[2016-05-12 07:33] LABS: BASOPHILS % 0.5 % (0.0-2.0); EOSINOPHILS # 0.2 10^3/ul (0.0-0.5); HEMATOCRIT 32.7 % (42.0-52.0); HEMOGLOBIN 10.5 g/dl (14.0-18.0); MEAN CORPUSCULAR HEMOGLOBIN 28.1 pg (29.0-33.0); MEAN CORPUSCULAR HGB CONC 32.1 g/dl (32.0-37.0); MEAN CORPUSCULAR VOLUME 87.4 fl (82.0-101.0); MEAN PLATELET VOLUME 10.9 fl (7.4-10.4); MONOCYTE # 0.6 10^3/ul (0.3-0.9); MONOCYTES % 12.8 % (0.0-11.0); NEUTROPHIL # 2.5 10^3/ul (1.6-7.5); NEUTROPHILS % 58.5 % (39.0-77.0); PLATELET COUNT 111 10^3/UL (140-415); RED BLOOD COUNT 3.74 10^6/ul (4.70-6.10); RED CELL DISTRIBUTION WIDTH 17.2 % (11.5-14.5); WHITE BLOOD COUNT 4.3 10^3/ul (4.8-10.8)
[2016-05-12 07:54] LABS: CREATININE 0.47 mg/dl (0.61-1.24)
[2016-05-12 07:56] LABS: CALCIUM 8.7 mg/dl (8.4-10.2); MAGNESIUM 1.5 mg/dl (1.7-2.5)
[2016-05-12] MEDS: FUROSEMIDE 20 MG INJ IV SCH ×2 (08:56→22:45)
[2016-05-12] MEDS: FAMOTIDINE 20 MG TAB GTB SCH ×2 (08:56→21:00)
[2016-05-12] MEDS: LACTULOSE 30ML CUP GTB SCH (08:56)
[2016-05-12] MEDS: FERROUS SULFATE 60 MG/ML 5ML CUP GTB SCH ×2 (08:56→21:00)
[2016-05-12] MEDS: CHLORDIAZEPOXIDE 5 MG CAP PO SCH ×3 (08:57→21:00)
[2016-05-12] MEDS: CALCIUM CARBONATE 500 MG CHEW TAB GTB SCH (08:57)
[2016-05-12] MEDS: QUETIAPINE 25 MG TAB GTB SCH ×2 (08:57→17:00)
[2016-05-12] MEDS: THIAMINE 100 MG TAB GTB SCH (08:57)
[2016-05-12] MEDS: ASCORBIC ACID 500 MG TAB GTB SCH (08:57)
[2016-05-12] MEDS: ASPIRIN 81 MG TAB PO SCH (08:57)
[2016-05-12] MEDS: CHLORHEXIDINE GLUCONATE 15 ML UD CUP MM SCH ×2 (08:57→22:45)
[2016-05-12] MEDS: MULTIVITAMINS/MINERALS TAB PO SCH (08:58)
--- NOTE | 2016-05-12 10:13 | CONS ---
Date/Time of Note Date/Time of Note DATE: 05/12/16 TIME: 10:11 Assessment/Plan Assessment/Plan Chief Complaint/Hosp Course 65 up male with acute hypoxic respiratory failure being admitted for sepsis secondary to ESBL bacteremia. Pt had a worsening normocytic anemia that was likely secondary to his underlying sepsis and antibiotic use. Pt is now off antibiotic and Hg has remained stable. PT had a bleeding trach site and found with and elevated PTT to 85. Pt was given SQ Vitamin K. He is no longer bleeding and PTT has decreased to 50's # Anemia -HG stable > 10 -continue to monitor Hg. if < 8 will consider transfusion. CBC is improving -s/p 5 days of V iron. now on po iron # Thrombocytopenia -likely secondary to sepsis and antibiotics. platelets are slowly improving # Bleeding trach -resolved -not coagulopathic. PTT ok #Pneumonia -continue antibiotics Approximately 40 min were spent at patient's bedside and in coordination of his care Problems: Consultation Date/Type/Reason Admit Date/Time Apr 11, 2016 at 22:13 Initial Consult Date 04/21/16 Type of Consultation: Hematology Reason for Consultation anemia Referring Provider: ANNETTA AGUILAR MD 24 HR Interval Summary Free Text/Dictation patient pulled his g tube out yesterday very agitated Exam/Review of Systems Vital Signs Vitals Vital Signs Date Time Temp Pulse Resp B/P Pulse Ox O2 Delivery O2 Flow Rate FiO2 05/12/16 08:29 73 05/12/16 08:19 16 97 40 05/12/16 07:23 97.8 133/88 05/11/16 18:04 Mechanical Ventilator Intake and Output 05/11/16 05/11/16 05/12/16 15:00 23:00 07:00 Intake Total 237 ml 530 ml 947 ml Output Total 600 ml 700 ml 1200 ml Balance -363 ml -170 ml -253 ml Exam Constitutional: distress, frail Psych: anxiety, confusion Head: normocephalic Eyes: nl conjunctiva ENMT: nl external ears & nose Neck: other (trach in place) Respiratory: clear to auscultation, normal air movement Cardiovascular: regular rate and rhythm Gastrointestinal: other (g tube in place) Musculoskeletal: nl extremities to inspection Extremities: normal pulses Results Result Diagram: 05/12/16 0642 05/12/16 0642 Results 24 hrs Laboratory Tests Test 05/12/16 06:42 White Blood Count 4.3 L Red Blood Count 3.74 L Hemoglobin 10.5 L Hematocrit 32.7 L Mean Corpuscular Volume 87.4 Mean Corpuscular Hemoglobin 28.1 L Mean Corpuscular Hemoglobin Concent 32.1 Red Cell Distribution Width 17.2 H Platelet Count 111 #L Mean Platelet Volume 10.9 H Neutrophils % 58.5 Lymphocytes % 24.0 Monocytes % 12.8 H Eosinophils % 4.0 Basophils % 0.5 Nucleated Red Blood Cells % 0.0 Neutrophils # 2.5 Lymphocytes # 1.0 Monocytes # 0.6 Eosinophils # 0.2 Basophils # 0.0 Nucleated Red Blood Cells # 0.0 Sodium Level 139 Potassium Level 4.0 Chloride Level 98 Carbon Dioxide Level 35 H Anion Gap 10 Blood Urea Nitrogen 10 Creatinine 0.47 L Glucose Level 63 #L Calcium Level 8.7 Magnesium Level 1.5 L Medications Medications Current Medications Ondansetron HCl (Zofran Inj) 4 mg Q6H PRN IV NAUSEA AND/OR VOMITING Last administered on 04/24/16 21:00; Admin Dose 4 MG; Start 04/11/16 at 22:30 Acetaminophen (Tylenol Tab) 650 mg Q6H PRN PO PAIN LEVEL 1-3 OR FEVER; Start at 22:30 Morphine Sulfate (morphine) 2 mg Q4H PRN IV PAIN LEVEL 7-10 Last administered on 05/10/16 05:37; Admin Dose 2 MG; Start 04/11/16 at 22:30 Ascorbic Acid (Vitamin C) 500 mg DAILY GTB Last administered on 05/11/16 09:13 ; Admin Dose 500 MG; Start 04/12/16 at 09:00 Bisacodyl (Dulcolax) 10 mg DAILY PRN PO CONSTIPATION; Start 04/11/16 at 22:30 Chlorhexidine Gluconate (Peridex) 15 ml BID MM Last administered on 05/12/16 08:57; Admin Dose 15 ML; Start 04/12/16 at 09:00 Ferrous Sulfate (Feosol Liquid Cup) 300 mg BID GTB Last administered on 22:09; Admin Dose 300 MG; Start 04/12/16 at 09:00 Acetaminophen/ Hydrocodone Bitart ([place] (5/325)) 1 tab Q4 PRN GTB PAIN LEVEL 6 -10; Start 04/11/16 at 22:30 Lactulose (Enulose) 20 gm DAILY GTB Last administered on 05/11/16 09:12; Admin Dose 20 GM; Start 04/12/16 at 09:00 Quetiapine Fumarate (Seroquel) 25 mg BID@ GTB Last administered on 17:33; Admin Dose 25 MG; Start 04/12/16 at 09:00 Quetiapine Fumarate (Seroquel) 200 mg HS GTB Last administered on 05/10/16 21: 28; Admin Dose 200 MG; Start 04/12/16 at 21:00 Senna (Senokot) 1 tab QHS GTB Last administered on 05/11/16 22:09; Admin Dose 1 TAB; Start 04/12/16 at 21:00 Sodium Biphosphate/ Sodium Phosphate (Fleet Enema Pediatric) 66.6 ml DAILY PRN [place] CONSTIPATION; Start 04/11/16 at 22:30 Thiamine HCl (Vitamin B1) 100 mg DAILY GTB Last administered on 05/11/16 09:13 ; Admin Dose 100 MG; Start 04/12/16 at 09:00 Calcium Carbonate (Tums) 500 mg DAILY GTB Last administered on 05/11/16 09:13 ; Admin Dose 500 MG; Start 04/12/16 at 09:00 Multivitamins/ Minerals (Theragran-M) 1 tab DAILY PO Last administered on 09:13; Admin Dose 1 TAB; Start 04/12/16 at 09:00 Hydralazine HCl (Apresoline) 10 mg Q6H PRN IV SBP >160 Last administered on 16:38; Admin Dose 10 MG; Start 04/12/16 at 12:30 Famotidine (Pepcid) 20 mg Q12 GTB Last administered on 05/11/16 22:09; Admin Dose 20 MG; Start 04/19/16 at 21:00 Lorazepam (Ativan) 1 mg Q4 PRN IV AGITATION/ANXIETY Last administered on 02:52; Admin Dose 1 MG; Start 04/24/16 at 21:00 Clonidine (Catapres) 0.1 mg Q6H PRN PO ELEVATED BLOOD PRESSURE; Start 04/24/16 at 23:30 Metoprolol Tartrate (Lopressor) 5 mg Q4H PRN IV PRN HR>110 Hold SBP<100; Start 04/28/16 at 13:30 Metoprolol Tartrate (Lopressor) 25 mg BID PO Last administered on 04/29/16 21: 29; Admin Dose 25 MG; Start 04/29/16 at 21:00; Status Future Hold Lorazepam (Ativan) 1 mg Q6 GTB Last administered on 05/12/16 03:11; Admin Dose 1 MG; Start 05/02/16 at 00:00 Aspirin (Aspirin) 81 mg DAILY PO Last administered on 05/11/16 09:13; Admin Dose 81 MG; Start 05/02/16 at 14:30 Chlordiazepoxide (Librium) 10 mg TID PO Last administered on 05/11/16 12:03; Admin Dose 10 MG; Start 05/04/16 at 09:00 Acetaminophen (Tylenol Liquid) 650 mg Q6H PRN GTB FEVER >101; Start 05/06/16 at 11:30 Furosemide 20 mg 20 mg BID IV Last administered on 05/12/16 08:56; Admin Dose 20 MG; Start 05/06/16 at 21:00 Potassium Chloride/Sodium Chloride (1/2 NS + KCl 20 Meq) 1,000 ml @ 50 mls/hr Q20H IV Last administered on 05/11/16 17:34; Admin Dose 50 MLS/HR; Start 05/11 at 16:30 JESI MONTEMAYOR M.D. May 12, 2016 10:13
--- NOTE | 2016-05-12 10:47 | CONS ---
Date/Time of Note Date/Time of Note DATE: 05/12/16 TIME: 10:45 Assessment/Plan Assessment/Plan Chief Complaint/Hosp Course IMPRESSION: 1. Wide complex tachycardia, cardiac arrhythmia. Rule out nonsustained ventricular tachycardia.-likely c/w abberant AF-no recurrence 2. Abnormal electrocardiogram, assess for acute coronary syndrome. 3. Congestive heart failure by chest x-ray, diastolic by most recent echo acute on chronic. 4. Hypertension with current borderline HOtn s/p IVP hydralazine 5. Respiratory failure, chronic, status post tracheostomy with desat now transferred to ICU 6. Dysphagia, status post G-tube. 7. Psychiatric disorder. 8. Urinary tract infection. 9. Hypokalemia-improved 10. Anemia. 11. Leukopenia. 12.Nstemi-no current chest pain/decreased enzymes 14. Bradycardia-improved Recc: -Tele -Continue to hold BB given prior bradycardia -Continue asa medical therapy for nstemi with currently decreased cardiac enzymes/NO cp -Continue lasix diuresis and consider increase dose to improve diuresis -C discussed with patient but patient does not have clear understanding and would like to wait -LOvenox held due to trach site bleeding -Continue ACEI Problems: Consultation Date/Type/Reason Admit Date/Time Apr 11, 2016 at 22:13 Initial Consult Date 04/21/16 Type of Consultation: Cardiology Reason for Consultation Cristine Referring Provider: ANNETTA AGUILAR MD Exam/Review of Systems Vital Signs Vitals Vital Signs Date Time Temp Pulse Resp B/P Pulse Ox O2 Delivery O2 Flow Rate FiO2 05/12/16 08:29 73 05/12/16 08:19 16 97 40 05/12/16 07:23 97.8 133/88 05/11/16 18:04 Mechanical Ventilator Intake and Output 05/11/16 05/11/16 05/12/16 15:00 23:00 07:00 Intake Total 237 ml 530 ml 947 ml Output Total 600 ml 700 ml 1200 ml Balance -363 ml -170 ml -253 ml Exam Review of Systems: CONSTITUTIONAL: No fevers, chills. PULMONARY: trached CARDIOVASCULAR: No chest pain/palpitations GASTROINTESTINAL: No nausea/vomiting. GENITOURINARY: No hematuria/dysuria. MUSCULOSKELETAL: No myagias/arthalgias. PSYCHIATRIC: The patient denies depression. NEUROLOGIC: No weakness Constitutional: alert Psych: no complaints Head: normocephalic ENMT: other (trached) Neck: jvd (9 cm water) Respiratory: diminished breath sounds (at bases/B) Cardiovascular: regular rate and rhythm Gastrointestinal: non-tender, soft Musculoskeletal: muscle weakness (generalized) Extremities: edema (none), other (contracted) Neurological: other (No focal deficits) Results Result Diagram: 05/12/16 0642 05/12/16 0642 Results 24 hrs Laboratory Tests Test 05/12/16 06:42 Anion Gap 10 Basophils # 0.0 Basophils % 0.5 Blood Urea Nitrogen 10 Calcium Level 8.7 Carbon Dioxide Level 35 H Chloride Level 98 Creatinine 0.47 L Eosinophils # 0.2 Eosinophils % 4.0 Glucose Level 63 #L Hematocrit 32.7 L Hemoglobin 10.5 L Lymphocytes # 1.0 Lymphocytes % 24.0 Magnesium Level 1.5 L Mean Corpuscular Hemoglobin 28.1 L Mean Corpuscular Hemoglobin Concent 32.1 Mean Corpuscular Volume 87.4 Mean Platelet Volume 10.9 H Monocytes # 0.6 Monocytes % 12.8 H Neutrophils # 2.5 Neutrophils % 58.5 Nucleated Red Blood Cells # 0.0 Nucleated Red Blood Cells % 0.0 Platelet Count 111 #L Potassium Level 4.0 Red Blood Count 3.74 L Red Cell Distribution Width 17.2 H Sodium Level 139 White Blood Count 4.3 L Medications Medications Current Medications Ondansetron HCl (Zofran Inj) 4 mg Q6H PRN IV NAUSEA AND/OR VOMITING Last administered on 04/24/16 21:00; Admin Dose 4 MG; Start 04/11/16 at 22:30 Acetaminophen (Tylenol Tab) 650 mg Q6H PRN PO PAIN LEVEL 1-3 OR FEVER; Start at 22:30 Morphine Sulfate (morphine) 2 mg Q4H PRN IV PAIN LEVEL 7-10 Last administered on 05/10/16 05:37; Admin Dose 2 MG; Start 04/11/16 at 22:30 Ascorbic Acid (Vitamin C) 500 mg DAILY GTB Last administered on 05/11/16 09:13 ; Admin Dose 500 MG; Start 04/12/16 at 09:00 Bisacodyl (Dulcolax) 10 mg DAILY PRN PO CONSTIPATION; Start 04/11/16 at 22:30 Chlorhexidine Gluconate (Peridex) 15 ml BID MM Last administered on 05/12/16 08:57; Admin Dose 15 ML; Start 04/12/16 at 09:00 Ferrous Sulfate (Feosol Liquid Cup) 300 mg BID GTB Last administered on 22:09; Admin Dose 300 MG; Start 04/12/16 at 09:00 Acetaminophen/ Hydrocodone Bitart ([place] (5/325)) 1 tab Q4 PRN GTB PAIN LEVEL 6 -10; Start 04/11/16 at 22:30 Lactulose (Enulose) 20 gm DAILY GTB Last administered on 05/11/16 09:12; Admin Dose 20 GM; Start 04/12/16 at 09:00 Quetiapine Fumarate (Seroquel) 25 mg BID@17 GTB Last administered on 17:33; Admin Dose 25 MG; Start 04/12/16 at 09:00 Quetiapine Fumarate (Seroquel) 200 mg HS GTB Last administered on 05/10/16 21: 28; Admin Dose 200 MG; Start 04/12/16 at 21:00 Senna (Senokot) 1 tab QHS GTB Last administered on 05/11/16 22:09; Admin Dose 1 TAB; Start 04/12/16 at 21:00 Sodium Biphosphate/ Sodium Phosphate (Fleet Enema Pediatric) 66.6 ml DAILY PRN [place] CONSTIPATION; Start 04/11/16 at 22:30 Thiamine HCl (Vitamin B1) 100 mg DAILY GTB Last administered on 05/11/16 09:13 ; Admin Dose 100 MG; Start 04/12/16 at 09:00 Calcium Carbonate (Tums) 500 mg DAILY GTB Last administered on 05/11/16 09:13 ; Admin Dose 500 MG; Start 04/12/16 at 09:00 Multivitamins/ Minerals (Theragran-M) 1 tab DAILY PO Last administered on 09:13; Admin Dose 1 TAB; Start 04/12/16 at 09:00 Hydralazine HCl (Apresoline) 10 mg Q6H PRN IV SBP >160 Last administered on 16:38; Admin Dose 10 MG; Start 04/12/16 at 12:30 Famotidine (Pepcid) 20 mg Q12 GTB Last administered on 05/11/16 22:09; Admin Dose 20 MG; Start 04/19/16 at 21:00 Lorazepam (Ativan) 1 mg Q4 PRN IV AGITATION/ANXIETY Last administered on 02:52; Admin Dose 1 MG; Start 04/24/16 at 21:00 Clonidine (Catapres) 0.1 mg Q6H PRN PO ELEVATED BLOOD PRESSURE; Start 04/24/16 at 23:30 Metoprolol Tartrate (Lopressor) 5 mg Q4H PRN IV PRN HR>110 Hold SBP<100; Start 04/28/16 at 13:30 Metoprolol Tartrate (Lopressor) 25 mg BID PO Last administered on 04/29/16 21: 29; Admin Dose 25 MG; Start 04/29/16 at 21:00; Status Future Hold Lorazepam (Ativan) 1 mg Q6 GTB Last administered on 05/12/16 03:11; Admin Dose 1 MG; Start 05/02/16 at 00:00 Aspirin (Aspirin) 81 mg DAILY PO Last administered on 05/11/16 09:13; Admin Dose 81 MG; Start 05/02/16 at 14:30 Chlordiazepoxide (Librium) 10 mg TID PO Last administered on 05/11/16 12:03; Admin Dose 10 MG; Start 05/04/16 at 09:00 Acetaminophen (Tylenol Liquid) 650 mg Q6H PRN GTB FEVER >101; Start 05/06/16 at 11:30 Furosemide 20 mg 20 mg BID IV Last administered on 05/12/16 08:56; Admin Dose 20 MG; Start 05/06/16 at 21:00 Potassium Chloride/Sodium Chloride (1/2 NS + KCl 20 Meq) 1,000 ml @ 50 mls/hr Q20H IV Last administered on 05/11/16 17:34; Admin Dose 50 MLS/HR; Start 05/11 at 16:30 LILI BRADEN May 12, 2016 10:47
--- NOTE | 2016-05-12 11:20 | CONS ---
Date/Time of Note Date/Time of Note DATE: 05/12/16 TIME: 11:17 Assessment/Plan Assessment/Plan Additional Assessment/Plan Ventilator settings; AC of 1 12, tidal volume 450, PEEP of 5, 35% FiO2. Assessment recommendations; 1. Patient admitted for severe right-sided pneumonia had initial improvement and patient developed severe bilateral pneumonia possibly from aspiration also developed hypercapnic respiratory failure not requiring invasive mechanical ventilation. 2. Marked clinical and radiological improvement now patient off antibiotics. 3. Paraplegia. 4. Alcoholic encephalopathy. Continue current treatment. Patient can be discharged to [facility]. Consultation Date/Type/Reason Admit Date/Time Apr 11, 2016 at 22:13 Initial Consult Date 04/12/16 Type of Consultation: Pulmonary Referring Provider: ANNETTA AGUILAR MD 24 HR Interval Summary Free Text/Dictation Patient condition stable. Remains awake and alert. Still has episodes of confusion off and on. Has remained hemodynamically stable. General exam; elderly male, on ventilator via tracheostomy currently in no distress. Exam/Review of Systems Vital Signs Vitals Vital Signs Date Time Temp Pulse Resp B/P Pulse Ox O2 Delivery O2 Flow Rate FiO2 05/12/16 08:29 73 05/12/16 08:19 16 97 40 05/12/16 07:23 97.8 133/88 05/11/16 18:04 Mechanical Ventilator Intake and Output 05/11/16 05/11/16 05/12/16 15:00 23:00 07:00 Intake Total 237 ml 530 ml 947 ml Output Total 600 ml 700 ml 1200 ml Balance -363 ml -170 ml -253 ml Exam HEENT exam; supple neck, no JVD. No lymphadenopathy. Midline trachea. Tracheostomy in place. Patient upper jaw is edentulous. Pupils are midsize reactive to light. No neck masses. No thyromegaly. Chest examination : diminished but clear breath sounds bilaterally. S1-S2 audible, no murmurs. Regular rhythm. Abdomen examination; soft, no organomegaly, nondistended. Bowel sounds audible. Next Extremity exam is; no peripheral edema. 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 Results Result Diagram: 05/12/16 0642 05/12/16 0642 Results 24 hrs Laboratory Tests Test 05/12/16 06:42 White Blood Count 4.3 L Red Blood Count 3.74 L Hemoglobin 10.5 L Hematocrit 32.7 L Mean Corpuscular Volume 87.4 Mean Corpuscular Hemoglobin 28.1 L Mean Corpuscular Hemoglobin Concent 32.1 Red Cell Distribution Width 17.2 H Platelet Count 111 #L Mean Platelet Volume 10.9 H Neutrophils % 58.5 Lymphocytes % 24.0 Monocytes % 12.8 H Eosinophils % 4.0 Basophils % 0.5 Nucleated Red Blood Cells % 0.0 Neutrophils # 2.5 Lymphocytes # 1.0 Monocytes # 0.6 Eosinophils # 0.2 Basophils # 0.0 Nucleated Red Blood Cells # 0.0 Sodium Level 139 Potassium Level 4.0 Chloride Level 98 Carbon Dioxide Level 35 H Anion Gap 10 Blood Urea Nitrogen 10 Creatinine 0.47 L Glucose Level 63 #L Calcium Level 8.7 Magnesium Level 1.5 L Medications Medications Current Medications Ondansetron HCl (Zofran Inj) 4 mg Q6H PRN IV NAUSEA AND/OR VOMITING Last administered on 04/24/16 21:00; Admin Dose 4 MG; Start 04/11/16 at 22:30 Acetaminophen (Tylenol Tab) 650 mg Q6H PRN PO PAIN LEVEL 1-3 OR FEVER; Start at 22:30 Morphine Sulfate (morphine) 2 mg Q4H PRN IV PAIN LEVEL 7-10 Last administered on 05/10/16 05:37; Admin Dose 2 MG; Start 04/11/16 at 22:30 Ascorbic Acid (Vitamin C) 500 mg DAILY GTB Last administered on 05/11/16 09:13 ; Admin Dose 500 MG; Start 04/12/16 at 09:00 Bisacodyl (Dulcolax) 10 mg DAILY PRN PO CONSTIPATION; Start 04/11/16 at 22:30 Chlorhexidine Gluconate (Peridex) 15 ml BID MM Last administered on 05/12/16 08:57; Admin Dose 15 ML; Start 04/12/16 at 09:00 Ferrous Sulfate (Feosol Liquid Cup) 300 mg BID GTB Last administered on 22:09; Admin Dose 300 MG; Start 04/12/16 at 09:00 Acetaminophen/ Hydrocodone Bitart ([place] (5/325)) 1 tab Q4 PRN GTB PAIN LEVEL 6 -10; Start 04/11/16 at 22:30 Lactulose (Enulose) 20 gm DAILY GTB Last administered on 05/11/16 09:12; Admin Dose 20 GM; Start 04/12/16 at 09:00 Quetiapine Fumarate (Seroquel) 25 mg BID@ GTB Last administered on 17:33; Admin Dose 25 MG; Start 04/12/16 at 09:00 Quetiapine Fumarate (Seroquel) 200 mg HS GTB Last administered on 05/10/16 21: 28; Admin Dose 200 MG; Start 04/12/16 at 21:00 Senna (Senokot) 1 tab QHS GTB Last administered on 05/11/16 22:09; Admin Dose 1 TAB; Start 04/12/16 at 21:00 Sodium Biphosphate/ Sodium Phosphate (Fleet Enema Pediatric) 66.6 ml DAILY PRN [place] CONSTIPATION; Start 04/11/16 at 22:30 Thiamine HCl (Vitamin B1) 100 mg DAILY GTB Last administered on 05/11/16 09:13 ; Admin Dose 100 MG; Start 04/12/16 at 09:00 Calcium Carbonate (Tums) 500 mg DAILY GTB Last administered on 05/11/16 09:13 ; Admin Dose 500 MG; Start 04/12/16 at 09:00 Multivitamins/ Minerals (Theragran-M) 1 tab DAILY PO Last administered on 09:13; Admin Dose 1 TAB; Start 04/12/16 at 09:00 Hydralazine HCl (Apresoline) 10 mg Q6H PRN IV SBP >160 Last administered on 16:38; Admin Dose 10 MG; Start 04/12/16 at 12:30 Famotidine (Pepcid) 20 mg Q12 GTB Last administered on 05/11/16 22:09; Admin Dose 20 MG; Start 04/19/16 at 21:00 Lorazepam (Ativan) 1 mg Q4 PRN IV AGITATION/ANXIETY Last administered on 02:52; Admin Dose 1 MG; Start 04/24/16 at 21:00 Clonidine (Catapres) 0.1 mg Q6H PRN PO ELEVATED BLOOD PRESSURE; Start 04/24/16 at 23:30 Metoprolol Tartrate (Lopressor) 5 mg Q4H PRN IV PRN HR>110 Hold SBP<100; Start 04/28/16 at 13:30 Metoprolol Tartrate (Lopressor) 25 mg BID PO Last administered on 04/29/16 21: 29; Admin Dose 25 MG; Start 04/29/16 at 21:00; Status Future Hold Lorazepam (Ativan) 1 mg Q6 GTB Last administered on 05/12/16 03:11; Admin Dose 1 MG; Start 05/02/16 at 00:00 Aspirin (Aspirin) 81 mg DAILY PO Last administered on 05/11/16 09:13; Admin Dose 81 MG; Start 05/02/16 at 14:30 Chlordiazepoxide (Librium) 10 mg TID PO Last administered on 05/11/16 12:03; Admin Dose 10 MG; Start 05/04/16 at 09:00 Acetaminophen (Tylenol Liquid) 650 mg Q6H PRN GTB FEVER >101; Start 05/06/16 at 11:30 Furosemide 20 mg 20 mg BID IV Last administered on 05/12/16 08:56; Admin Dose 20 MG; Start 05/06/16 at 21:00 Potassium Chloride/Sodium Chloride (1/2 NS + KCl 20 Meq) 1,000 ml @ 50 mls/hr Q20H IV Last administered on 05/11/16 17:34; Admin Dose 50 MLS/HR; Start 05/11 at 16:30 Benazepril HCl (Lotensin) 10 mg DAILY PO ; Start 05/13/16 at 09:00 KATHERYN LAWTON May 12, 2016 11:20
[2016-05-12] MEDS: 1/2 NS + KCL 20 MEQ 1,000 ML IV SCH (11:52)
--- NOTE | 2016-05-12 18:56 | PN ---
Date/Time of Note Date/Time of Note DATE: 05/12/16 TIME: 18:55 Assessment/Plan VTE Prophylaxis VTE Prophylaxis Intervention: SCD's Lines/Catheters IV [facility]ter Type (from [facility]): PICC Line Central line still needed: Yes Urinary Cath still in place: No Assessment/Plan Chief Complaint/Hosp Course ASSESSMENT AND PLAN: -Bleeding from tracheostomy site, resolved. -Pancytopenia. Dr Gaona is following in hematology consultation. -Coagulopathy, status post vitamin K, Lovenox is held - NSTEMI, continue aspirin and Lovenox. Dr. Espitia is following patient in cardiology consultation. - Atrial fibrillation with rapid ventricular response. Continue metoprolol. Continue telemetry monitoring. - Bilateral pleural effusions, status post right sided thoracentesis. - Acute hypoxic respiratory failure. Dr. Anderson is following in pulmonology consultation. Continue ventilatory support and bronchodilators. - Possible healthcare-acquired left lower lung pneumonia versus aspiration. Continue antibiotics per ID. Dr. Rojas is following an infection disease consultation. - E. coli ESBL urinary tract infection, status post treatment. - Sepsis with Ecoli ESBL bacteremia 2 UTI, resolved. - Dysphagia, with G-tube. Status post G-tube removal by patient. Status post G-tube placement by Dr. Vegas 05/10, currently DC'd by patient. - History of chronic respiratory failure with tracheostomy. - Benign prostatic hypertrophy. - Schizoaffective disorder. Continue Seroquel and Ativan as needed for agitation. Continue Lovenox for deep venous thrombosis prophylaxis and Pepcid for peptic ulcer disease prophylaxis. Further recommendations based on clinical course. Plan of care discussed with Dr. Colunga. Problems: Subjective 24 Hr Interval Summary Free Text/Dictation Patient pulled out NG tube, will start patient on IV fluids, continues on vent, no acute distress. Exam/Review of Systems Vital Signs Vitals Vital Signs Date Time Temp Pulse Resp B/P Pulse Ox O2 Delivery O2 Flow Rate FiO2 05/12/16 18:00 97.3 70 20 139/89 100 Mechanical Ventilator 05/12/16 17:58 40 Intake and Output 05/11/16 05/11/16 05/12/16 15:00 23:00 07:00 Intake Total 237 ml 530 ml 947 ml Output Total 600 ml 700 ml 1200 ml Balance -363 ml -170 ml -253 ml Exam GENERAL: A well-developed, cachectic gentleman, on ventilatory support via tracheostomy. HEENT: Head is atraumatic, normocephalic. LYDIA. NECK: Supple, with tracheostomy at the base of the neck. LUNGS: Diminished at the bases. Patient has scattered severe rhonchi bilaterally. CARDIOVASCULAR: Normal S1, S2. No murmurs, gallops, clicks, rubs noted. ABDOMEN: Flat, soft, nondistended, nontender. Bowel sounds present. EXTREMITIES: Contractured. There is no edema, clubbing, cyanosis. Pulses equal bilaterally, 2+. SKIN: There is no rash, petechiae noted. NEUROLOGIC: Awake alert, with intermittent periods of confusion Results Result Diagram: 05/12/16 0642 05/12/16 0642 Results 24 hrs Laboratory Tests Test 05/12/16 06:42 White Blood Count 4.3 L Red Blood Count 3.74 L Hemoglobin 10.5 L Hematocrit 32.7 L Mean Corpuscular Volume 87.4 Mean Corpuscular Hemoglobin 28.1 L Mean Corpuscular Hemoglobin Concent 32.1 Red Cell Distribution Width 17.2 H Platelet Count 111 #L Mean Platelet Volume 10.9 H Neutrophils % 58.5 Lymphocytes % 24.0 Monocytes % 12.8 H Eosinophils % 4.0 Basophils % 0.5 Nucleated Red Blood Cells % 0.0 Neutrophils # 2.5 Lymphocytes # 1.0 Monocytes # 0.6 Eosinophils # 0.2 Basophils # 0.0 Nucleated Red Blood Cells # 0.0 Sodium Level 139 Potassium Level 4.0 Chloride Level 98 Carbon Dioxide Level 35 H Anion Gap 10 Blood Urea Nitrogen 10 Creatinine 0.47 L Glucose Level 63 #L Calcium Level 8.7 Magnesium Level 1.5 L Medications Medications Current Medications Ondansetron HCl (Zofran Inj) 4 mg Q6H PRN IV NAUSEA AND/OR VOMITING Last administered on 04/24/16 21:00; Admin Dose 4 MG; Start 04/11/16 at 22:30 Acetaminophen (Tylenol Tab) 650 mg Q6H PRN PO PAIN LEVEL 1-3 OR FEVER; Start at 22:30 Morphine Sulfate (morphine) 2 mg Q4H PRN IV PAIN LEVEL 7-10 Last administered on 05/10/16 05:37; Admin Dose 2 MG; Start 04/11/16 at 22:30 Ascorbic Acid (Vitamin C) 500 mg DAILY GTB Last administered on 05/11/16 09:13 ; Admin Dose 500 MG; Start 04/12/16 at 09:00 Bisacodyl (Dulcolax) 10 mg DAILY PRN PO CONSTIPATION; Start 04/11/16 at 22:30 Chlorhexidine Gluconate (Peridex) 15 ml BID MM Last administered on 05/12/16 08:57; Admin Dose 15 ML; Start 04/12/16 at 09:00 Ferrous Sulfate (Feosol Liquid Cup) 300 mg BID GTB Last administered on 22:09; Admin Dose 300 MG; Start 04/12/16 at 09:00 Acetaminophen/ Hydrocodone Bitart ([place] (5/325)) 1 tab Q4 PRN GTB PAIN LEVEL 6 -10; Start 04/11/16 at 22:30 Lactulose (Enulose) 20 gm DAILY GTB Last administered on 05/11/16 09:12; Admin Dose 20 GM; Start 04/12/16 at 09:00 Quetiapine Fumarate (Seroquel) 25 mg BID@ GTB Last administered on 17:33; Admin Dose 25 MG; Start 04/12/16 at 09:00 Quetiapine Fumarate (Seroquel) 200 mg HS GTB Last administered on 05/10/16 21: 28; Admin Dose 200 MG; Start 04/12/16 at 21:00 Senna (Senokot) 1 tab QHS GTB Last administered on 05/11/16 22:09; Admin Dose 1 TAB; Start 04/12/16 at 21:00 Sodium Biphosphate/ Sodium Phosphate (Fleet Enema Pediatric) 66.6 ml DAILY PRN [place] CONSTIPATION; Start 04/11/16 at 22:30 Thiamine HCl (Vitamin B1) 100 mg DAILY GTB Last administered on 05/11/16 09:13 ; Admin Dose 100 MG; Start 04/12/16 at 09:00 Calcium Carbonate (Tums) 500 mg DAILY GTB Last administered on 05/11/16 09:13 ; Admin Dose 500 MG; Start 04/12/16 at 09:00 Multivitamins/ Minerals (Theragran-M) 1 tab DAILY PO Last administered on 09:13; Admin Dose 1 TAB; Start 2/20/17 at 09:00 Hydralazine HCl (Apresoline) 10 mg Q6H PRN IV SBP >160 Last administered on 16:38; Admin Dose 10 MG; Start 04/12/16 at 12:30 Famotidine (Pepcid) 20 mg Q12 GTB Last administered on 05/11/16 22:09; Admin Dose 20 MG; Start 04/19/16 at 21:00 Lorazepam (Ativan) 1 mg Q4 PRN IV AGITATION/ANXIETY Last administered on 02:52; Admin Dose 1 MG; Start 04/24/16 at 21:00 Clonidine (Catapres) 0.1 mg Q6H PRN PO ELEVATED BLOOD PRESSURE; Start 04/24/16 at 23:30 Metoprolol Tartrate (Lopressor) 5 mg Q4H PRN IV PRN HR>110 Hold SBP<100; Start 04/28/16 at 13:30 Metoprolol Tartrate (Lopressor) 25 mg BID PO Last administered on 04/29/16 21: 29; Admin Dose 25 MG; Start 04/29/16 at 21:00; Status Future Hold Lorazepam (Ativan) 1 mg Q6 GTB Last administered on 05/12/16 03:11; Admin Dose 1 MG; Start 05/02/16 at 00:00 Aspirin (Aspirin) 81 mg DAILY PO Last administered on 05/11/16 09:13; Admin Dose 81 MG; Start 05/02/16 at 14:30 Chlordiazepoxide (Librium) 10 mg TID PO Last administered on 05/11/16 12:03; Admin Dose 10 MG; Start 05/04/16 at 09:00 Acetaminophen (Tylenol Liquid) 650 mg Q6H PRN GTB FEVER >101; Start 05/06/16 at 11:30 Furosemide 20 mg 20 mg BID IV Last administered on 05/12/16 08:56; Admin Dose 20 MG; Start 05/06/16 at 21:00 Potassium Chloride/Sodium Chloride (1/2 NS + KCl 20 Meq) 1,000 ml @ 50 mls/hr Q20H IV Last administered on 05/12/16 11:52; Admin Dose 50 MLS/HR; Start 05/11 at 16:30 Benazepril HCl (Lotensin) 10 mg DAILY PO ; Start 05/13/16 at 09:00 SHELBY BUNCH May 12, 2016 18:56
[2016-05-12] MEDS: QUETIAPINE 100 MG TAB GTB SCH (21:00)
[2016-05-12] MEDS: SENNA TAB GTB SCH (21:00)
[2016-05-12] MEDS: D5W-0.45 NACL + KCL 20 MEQ 1,000 ML IV SCH (22:45)
[2016-05-13] VITALS (25 sets, daily range): BP systolic 129–175; BP diastolic 67–95; PULSE 50–83; RESP 12–22
[2016-05-13] MEDS: ALBUTEROL HFA 8 GM INHALER INH SCH ×4 (01:17→19:55)
[2016-05-13] MEDS: IPRATROPIUM (HFA) 12.9 GM INHALER INH SCH ×4 (01:17→19:56)
[2016-05-13] MEDS: LORAZEPAM 1 MG TAB GTB SCH ×4 (06:00→15:32)
[2016-05-13 06:54] LABS: ADD SCAN DIFF NO
[2016-05-13 07:00] LABS: BASOPHILS % 0.5 % (0.0-2.0); EOSINOPHILS # 0.1 10^3/ul (0.0-0.5); EOSINOPHILS % 0.8 % (0.0-7.0); HEMATOCRIT 33.7 % (42.0-52.0); HEMOGLOBIN 10.6 g/dl (14.0-18.0); LYMPHOCYTES % 14.5 % (15.0-51.0); MEAN CORPUSCULAR HEMOGLOBIN 27.2 pg (29.0-33.0); MEAN CORPUSCULAR HGB CONC 31.5 g/dl (32.0-37.0); MEAN CORPUSCULAR VOLUME 86.6 fl (82.0-101.0); MEAN PLATELET VOLUME 11.4 fl (7.4-10.4); MONOCYTE # 0.4 10^3/ul (0.3-0.9); MONOCYTES % 5.9 % (0.0-11.0); NEUTROPHIL # 5.2 10^3/ul (1.6-7.5); NEUTROPHILS % 78.1 % (39.0-77.0); PLATELET COUNT 127 10^3/UL (140-415); RED BLOOD COUNT 3.89 10^6/ul (4.70-6.10); RED CELL DISTRIBUTION WIDTH 17.2 % (11.5-14.5); WHITE BLOOD COUNT 6.6 10^3/ul (4.8-10.8)
[2016-05-13 07:10] LABS: POTASSIUM 3.6 mmol/L (3.5-5.1)
[2016-05-13 07:13] LABS: CALCIUM 8.7 mg/dl (8.4-10.2); CREATININE 0.56 mg/dl (0.61-1.24)
[2016-05-13] MEDS: QUETIAPINE 25 MG TAB GTB SCH ×2 (08:04→15:32)
[2016-05-13] MEDS: FERROUS SULFATE 60 MG/ML 5ML CUP GTB SCH ×2 (08:04→21:00)
[2016-05-13] MEDS: LACTULOSE 30ML CUP GTB SCH (08:04)
[2016-05-13] MEDS: THIAMINE 100 MG TAB GTB SCH (08:04)
[2016-05-13] MEDS: ASCORBIC ACID 500 MG TAB GTB SCH (08:04)
[2016-05-13] MEDS: CALCIUM CARBONATE 500 MG CHEW TAB GTB SCH (08:04)
[2016-05-13] MEDS: FAMOTIDINE 20 MG TAB GTB SCH ×2 (08:04→21:00)
[2016-05-13] MEDS: CHLORDIAZEPOXIDE 5 MG CAP PO SCH ×3 (08:05→21:00)
[2016-05-13] MEDS: MULTIVITAMINS/MINERALS TAB PO SCH (08:05)
[2016-05-13] MEDS: BENAZEPRIL 10 MG TAB PO SCH (08:05)
[2016-05-13] MEDS: ASPIRIN 81 MG TAB PO SCH (08:05)
[2016-05-13] MEDS: CHLORHEXIDINE GLUCONATE 15 ML UD CUP MM SCH ×2 (09:34→22:15)
[2016-05-13] MEDS: FUROSEMIDE 20 MG INJ IV SCH ×2 (09:34→22:14)
--- NOTE | 2016-05-13 11:39 | CONS ---
Date/Time of Note Date/Time of Note DATE: 05/13/16 TIME: 11:36 Assessment/Plan Assessment/Plan Additional Assessment/Plan Ventilator settings; AC of 12, tidal volume 450, PEEP of 5, 30% FiO2. Assessment recommendations; 1. Patient admitted for right lower lobe pneumonia with initial improvement but then developed severe bilateral pneumonia possibly from aspiration. Also developed hypercapnic respiratory failure now requiring continuous invasive mechanical ventilation. 2. History of paraplegia. 3. Mild CHF. 4. Alcoholic encephalopathy. Continue current treatment. Patient awaiting discharge to [facility]. Consultation Date/Type/Reason Admit Date/Time Apr 11, 2016 at 22:13 Initial Consult Date 04/12/16 Type of Consultation: Pulmonary Referring Provider: ANNETTA AGUILAR MD 24 HR Interval Summary Free Text/Dictation Patient condition remains stable. Remains awake and alert. Still on full ventilator support. Patient has remained hemodynamically stable. General exam; elderly male, on ventilator via tracheostomy currently in no distress. Exam/Review of Systems Vital Signs Vitals Vital Signs Date Time Temp Pulse Resp B/P Pulse Ox O2 Delivery O2 Flow Rate FiO2 05/13/16 09:00 40 05/13/16 08:05 98.0 59 18 143/92 100 05/12/16 18:00 Mechanical Ventilator Intake and Output 05/12/16 05/12/16 05/13/16 15:00 23:00 07:00 Output Total 3 ml Balance -3 ml Exam HEENT exam; supple neck, no JVD. No lymphadenopathy. Midline trachea. No thyromegaly. Tracheostomy in place with clean insertion site. Patient upper jaw is edentulous. Pupils are midsize and reactive to light. Chest examination; clear to auscultation bilaterally. S1-S2 audible, no murmurs. Regular rhythm. Abdomen examination; soft, nondistended. No organomegaly. Bowel sounds audible. Extremity exam is; no peripheral edema. 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 Results Result Diagram: 05/13/16 0615 05/13/16 0615 Results 24 hrs Laboratory Tests Test 05/13/16 06:15 05/13/16 08:55 White Blood Count 6.6 # Red Blood Count 3.89 L Hemoglobin 10.6 L Hematocrit 33.7 L Mean Corpuscular Volume 86.6 Mean Corpuscular Hemoglobin 27.2 L Mean Corpuscular Hemoglobin Concent 31.5 L Red Cell Distribution Width 17.2 H Platelet Count 127 L Mean Platelet Volume 11.4 H Neutrophils % 78.1 H Lymphocytes % 14.5 L Monocytes % 5.9 Eosinophils % 0.8 Basophils % 0.5 Nucleated Red Blood Cells % 0.0 Neutrophils # 5.2 Lymphocytes # 1.0 Monocytes # 0.4 Eosinophils # 0.1 Basophils # 0.0 Nucleated Red Blood Cells # 0.0 Sodium Level 139 Potassium Level 3.6 Chloride Level 95 L Carbon Dioxide Level 35 H Anion Gap 13 Blood Urea Nitrogen 13 Creatinine 0.56 L Glucose Level 79 Calcium Level 8.7 Lab Scanned Report REFERENCE LAB Medications Medications Current Medications Ondansetron HCl (Zofran Inj) 4 mg Q6H PRN IV NAUSEA AND/OR VOMITING Last administered on 04/24/16 21:00; Admin Dose 4 MG; Start 04/11/16 at 22:30 Acetaminophen (Tylenol Tab) 650 mg Q6H PRN PO PAIN LEVEL 1-3 OR FEVER; Start at 22:30 Morphine Sulfate (morphine) 2 mg Q4H PRN IV PAIN LEVEL 7-10 Last administered on 05/10/16 05:37; Admin Dose 2 MG; Start 04/11/16 at 22:30 Ascorbic Acid (Vitamin C) 500 mg DAILY GTB Last administered on 05/11/16 09:13 ; Admin Dose 500 MG; Start 04/12/16 at 09:00 Bisacodyl (Dulcolax) 10 mg DAILY PRN PO CONSTIPATION; Start 04/11/16 at 22:30 Chlorhexidine Gluconate (Peridex) 15 ml BID MM Last administered on 05/13/16 09:34; Admin Dose 15 ML; Start 04/12/16 at 09:00 Ferrous Sulfate (Feosol Liquid Cup) 300 mg BID GTB Last administered on 22:09; Admin Dose 300 MG; Start 04/12/16 at 09:00 Acetaminophen/ Hydrocodone Bitart ([place] (5/325)) 1 tab Q4 PRN GTB PAIN LEVEL 6 -10; Start 04/11/16 at 22:30 Lactulose (Enulose) 20 gm DAILY GTB Last administered on 05/11/16 09:12; Admin Dose 20 GM; Start 04/12/16 at 09:00 Quetiapine Fumarate (Seroquel) 25 mg BID@ GTB Last administered on 17:33; Admin Dose 25 MG; Start 04/12/16 at 09:00 Quetiapine Fumarate (Seroquel) 200 mg HS GTB Last administered on 05/10/16 21: 28; Admin Dose 200 MG; Start 04/12/16 at 21:00 Senna (Senokot) 1 tab QHS GTB Last administered on 05/11/16 22:09; Admin Dose 1 TAB; Start 04/12/16 at 21:00 Sodium Biphosphate/ Sodium Phosphate (Fleet Enema Pediatric) 66.6 ml DAILY PRN [place] CONSTIPATION; Start 04/11/16 at 22:30 Thiamine HCl (Vitamin B1) 100 mg DAILY GTB Last administered on 05/11/16 09:13 ; Admin Dose 100 MG; Start 04/12/16 at 09:00 Calcium Carbonate (Tums) 500 mg DAILY GTB Last administered on 05/11/16 09:13 ; Admin Dose 500 MG; Start 04/12/16 at 09:00 Multivitamins/ Minerals (Theragran-M) 1 tab DAILY PO Last administered on 09:13; Admin Dose 1 TAB; Start 04/12/16 at 09:00 Hydralazine HCl (Apresoline) 10 mg Q6H PRN IV SBP >160 Last administered on 16:38; Admin Dose 10 MG; Start 04/12/16 at 12:30 Famotidine (Pepcid) 20 mg Q12 GTB Last administered on 05/11/16 22:09; Admin Dose 20 MG; Start 04/19/16 at 21:00 Lorazepam (Ativan) 1 mg Q4 PRN IV AGITATION/ANXIETY Last administered on 02:52; Admin Dose 1 MG; Start 04/24/16 at 21:00 Clonidine (Catapres) 0.1 mg Q6H PRN PO ELEVATED BLOOD PRESSURE; Start 04/24/16 at 23:30 Metoprolol Tartrate (Lopressor) 5 mg Q4H PRN IV PRN HR>110 Hold SBP<100; Start 04/28/16 at 13:30 Metoprolol Tartrate (Lopressor) 25 mg BID PO Last administered on 04/29/16 21: 29; Admin Dose 25 MG; Start 04/29/16 at 21:00; Status Future Hold Lorazepam (Ativan) 1 mg Q6 GTB Last administered on 05/12/16 03:11; Admin Dose 1 MG; Start 05/02/16 at 00:00 Aspirin (Aspirin) 81 mg DAILY PO Last administered on 05/11/16 09:13; Admin Dose 81 MG; Start 05/02/16 at 14:30 Chlordiazepoxide (Librium) 10 mg TID PO Last administered on 05/11/16 12:03; Admin Dose 10 MG; Start 05/04/16 at 09:00 Acetaminophen (Tylenol Liquid) 650 mg Q6H PRN GTB FEVER >101; Start 05/06/16 at 11:30 Furosemide (Lasix) 20 mg BID IV Last administered on 05/13/16 09:34; Admin Dose 20 MG; Start 05/06/16 at 21:00 Benazepril HCl 10 mg 10 mg DAILY PO ; Start 05/13/16 at 09:00 Potassium Chloride/Dextrose/ Sod Cl (D5-1/2ns + KCl 20 Meq) 1,000 ml @ 70 mls/ hr [id number] IV Last administered on 05/12/16 22:45; Admin Dose 70 MLS/HR; Start 05/12/16 at 19:00 KATHERYN LAWTON May 13, 2016 11:39
[2016-05-13] MEDS: D5W-0.45 NACL + KCL 20 MEQ 1,000 ML IV SCH ×2 (12:42→23:36)
--- NOTE | 2016-05-13 12:58 | CONS ---
Date/Time of Note Date/Time of Note DATE: 05/13/16 TIME: 12:55 Assessment/Plan Assessment/Plan Chief Complaint/Hosp Course IMPRESSION: 1. Wide complex tachycardia, cardiac arrhythmia. Rule out nonsustained ventricular tachycardia.-likely c/w abberant AF-no recurrence 2. Abnormal electrocardiogram, assess for acute coronary syndrome. 3. Congestive heart failure by chest x-ray, diastolic by most recent echo acute on chronic. 4. Hypertension with current borderline HOtn s/p IVP hydralazine 5. Respiratory failure, chronic, status post tracheostomy with desat now transferred to ICU 6. Dysphagia, status post G-tube which patient pulled out/self d/c'd 7. Psychiatric disorder. 8. Urinary tract infection. 9. Hypokalemia-improved 10. Anemia. 11. Leukopenia. 12.Nstemi-no current chest pain/decreased enzymes 14. Bradycardia-improved Recc: -Tele -Continue to hold BB given prior bradycardia -Continue asa medical therapy for nstemi with currently decreased cardiac enzymes/NO cp as able given no po access -Continue lasix diuresis and consider increase dose to improve diuresis -C discussed with patient but patient does not have clear understanding and would like to wait -LOvenox held due to trach site bleeding -Continue ACEI which has been held due to no PO access -start clonidine TTS to assure good BP control Problems: Consultation Date/Type/Reason Admit Date/Time Apr 11, 2016 at 22:13 Initial Consult Date 04/21/16 Type of Consultation: Cardiology Reason for Consultation NSVT/HTN Referring Provider: ANNETTA AGUILAR MD Exam/Review of Systems Vital Signs Vitals Vital Signs Date Time Temp Pulse Resp B/P Pulse Ox O2 Delivery O2 Flow Rate FiO2 05/13/16 12:11 59 05/13/16 12:00 98.0 18 137/87 98 05/13/16 09:00 40 05/12/16 18:00 Mechanical Ventilator Intake and Output 05/12/16 05/12/16 05/13/16 15:00 23:00 07:00 Output Total 3 ml Balance -3 ml Exam Review of Systems: CONSTITUTIONAL: No fevers, chills. PULMONARY: No sob CARDIOVASCULAR: No chest pain/palpitations GASTROINTESTINAL: No nausea/vomiting. GENITOURINARY: No hematuria/dysuria. MUSCULOSKELETAL: No myagias/arthalgias. PSYCHIATRIC: The patient denies depression. NEUROLOGIC: No weakness Constitutional: alert, oriented Psych: no complaints Head: normocephalic ENMT: mucosa pink and moist Neck: jvd (9 cm water), supple Respiratory: diminished breath sounds (at bases/B) Cardiovascular: regular rate and rhythm Gastrointestinal: non-tender, soft Musculoskeletal: muscle tone (normal) Extremities: edema (none), other (contracted) Neurological: other (No focal deficits) Results Result Diagram: 05/13/1615 05/13/16 0615 Results 24 hrs Laboratory Tests Test 05/13/16 06:15 05/13/16 08:55 White Blood Count 6.6 # Red Blood Count 3.89 L Hemoglobin 10.6 L Hematocrit 33.7 L Mean Corpuscular Volume 86.6 Mean Corpuscular Hemoglobin 27.2 L Mean Corpuscular Hemoglobin Concent 31.5 L Red Cell Distribution Width 17.2 H Platelet Count 127 L Mean Platelet Volume 11.4 H Neutrophils % 78.1 H Lymphocytes % 14.5 L Monocytes % 5.9 Eosinophils % 0.8 Basophils % 0.5 Nucleated Red Blood Cells % 0.0 Neutrophils # 5.2 Lymphocytes # 1.0 Monocytes # 0.4 Eosinophils # 0.1 Basophils # 0.0 Nucleated Red Blood Cells # 0.0 Sodium Level 139 Potassium Level 3.6 Chloride Level 95 L Carbon Dioxide Level 35 H Anion Gap 13 Blood Urea Nitrogen 13 Creatinine 0.56 L Glucose Level 79 Calcium Level 8.7 Lab Scanned Report REFERENCE LAB Medications Medications Current Medications Ondansetron HCl (Zofran Inj) 4 mg Q6H PRN IV NAUSEA AND/OR VOMITING Last administered on 04/24/16 21:00; Admin Dose 4 MG; Start 04/11/16 at 22:30 Acetaminophen (Tylenol Tab) 650 mg Q6H PRN PO PAIN LEVEL 1-3 OR FEVER; Start at 22:30 Morphine Sulfate (morphine) 2 mg Q4H PRN IV PAIN LEVEL 7-10 Last administered on 05/10/16 05:37; Admin Dose 2 MG; Start 04/11/16 at 22:30 Ascorbic Acid (Vitamin C) 500 mg DAILY GTB Last administered on 05/11/16 09:13 ; Admin Dose 500 MG; Start 04/12/16 at 09:00 Bisacodyl (Dulcolax) 10 mg DAILY PRN PO CONSTIPATION; Start 04/11/16 at 22:30 Chlorhexidine Gluconate (Peridex) 15 ml BID MM Last administered on 05/13/16 09:34; Admin Dose 15 ML; Start 04/12/16 at 09:00 Ferrous Sulfate (Feosol Liquid Cup) 300 mg BID GTB Last administered on 22:09; Admin Dose 300 MG; Start 04/12/16 at 09:00 Acetaminophen/ Hydrocodone Bitart ([place] (5/325)) 1 tab Q4 PRN GTB PAIN LEVEL 6 -10; Start 04/11/16 at 22:30 Lactulose (Enulose) 20 gm DAILY GTB Last administered on 05/11/16 09:12; Admin Dose 20 GM; Start 04/12/16 at 09:00 Quetiapine Fumarate (Seroquel) 25 mg BID@ GTB Last administered on 17:33; Admin Dose 25 MG; Start 04/12/16 at 09:00 Quetiapine Fumarate (Seroquel) 200 mg HS GTB Last administered on 05/10/16 21: 28; Admin Dose 200 MG; Start 04/12/16 at 21:00 Senna (Senokot) 1 tab QHS GTB Last administered on 05/11/16 22:09; Admin Dose 1 TAB; Start 04/12/16 at 21:00 Sodium Biphosphate/ Sodium Phosphate (Fleet Enema Pediatric) 66.6 ml DAILY PRN [place] CONSTIPATION; Start 04/11/16 at 22:30 Thiamine HCl (Vitamin B1) 100 mg DAILY GTB Last administered on 05/11/16 09:13 ; Admin Dose 100 MG; Start 04/12/16 at 09:00 Calcium Carbonate (Tums) 500 mg DAILY GTB Last administered on 05/11/16 09:13 ; Admin Dose 500 MG; Start 04/12/16 at 09:00 Multivitamins/ Minerals (Theragran-M) 1 tab DAILY PO Last administered on 09:13; Admin Dose 1 TAB; Start 04/12/16 at 09:00 Hydralazine HCl (Apresoline) 10 mg Q6H PRN IV SBP >160 Last administered on 16:38; Admin Dose 10 MG; Start 04/12/16 at 12:30 Famotidine (Pepcid) 20 mg Q12 GTB Last administered on 05/11/16 22:09; Admin Dose 20 MG; Start 04/19/16 at 21:00 Lorazepam (Ativan) 1 mg Q4 PRN IV AGITATION/ANXIETY Last administered on 02:52; Admin Dose 1 MG; Start 04/24/16 at 21:00 Clonidine (Catapres) 0.1 mg Q6H PRN PO ELEVATED BLOOD PRESSURE; Start 04/24/16 at 23:30 Metoprolol Tartrate (Lopressor) 5 mg Q4H PRN IV PRN HR>110 Hold SBP<100; Start 04/28/16 at 13:30 Metoprolol Tartrate (Lopressor) 25 mg BID PO Last administered on 04/29/16 21: 29; Admin Dose 25 MG; Start 04/29/16 at 21:00; Status Future Hold Lorazepam (Ativan) 1 mg Q6 GTB Last administered on 05/12/16 03:11; Admin Dose 1 MG; Start 05/02/16 at 00:00 Aspirin (Aspirin) 81 mg DAILY PO Last administered on 05/11/16 09:13; Admin Dose 81 MG; Start 05/02/16 at 14:30 Chlordiazepoxide (Librium) 10 mg TID PO Last administered on 05/11/16 12:03; Admin Dose 10 MG; Start 05/04/16 at 09:00 Acetaminophen (Tylenol Liquid) 650 mg Q6H PRN GTB FEVER >101; Start 05/06/16 at 11:30 Furosemide (Lasix) 20 mg BID IV Last administered on 05/13/16 09:34; Admin Dose 20 MG; Start 05/06/16 at 21:00 Benazepril HCl 10 mg 10 mg DAILY PO ; Start 05/13/16 at 09:00 Potassium Chloride/Dextrose/ Sod Cl (D5-1/2ns + KCl 20 Meq) 1,000 ml @ 70 mls/ hr [id number] IV Last administered on 05/13/16 12:42; Admin Dose 70 MLS/HR; Start 05/12/16 at 19:00 LILI BRADEN 23, 2017 12:58
[2016-05-13] MEDS ORDERED: hydrALAzine 20 MG INJ IV PRN (13:00)
[2016-05-13] MEDS: CLONIDINE 0.1 MG/24 HR PATCH TRANSDERM SCH (15:28)
[2016-05-13] MEDS: morphine 2 MG INJ IV PRN (17:35)
--- NOTE | 2016-05-13 18:32 | PN ---
Date/Time of Note Date/Time of Note DATE: 05/13/16 TIME: 18:31 Assessment/Plan VTE Prophylaxis VTE Prophylaxis Intervention: LMWH Lines/Catheters IV [facility] Type (from [facility]): PICC Line Central line still needed: Yes Urinary Cath still in place: No Assessment/Plan Assessment/Plan -Bleeding from tracheostomy site, resolving, pending ENT consult. Dr. Cecilia esquivel is aware. -Pancytopenia. Dr Gaona is following in hematology consultation. -Coagulopathy, status post vitamin K, Lovenox is held - NSTEMI, continue aspirin and Lovenox. - per Dr. Espitia is in cardiology consultation. - Atrial fibrillation with rapid ventricular response. - per Dr. Espitia in cardiology consultation. Continue metoprolol. Continue telemetry monitoring. - Bilateral pleural effusions, status post right sided thoracentesis, pending thoracentesis of the left side. - Acute hypoxic respiratory failure. on Vent now - per Dr. Anderson in pulmonology consultation. - Continue ventilatory support and bronchodilators. - Possible healthcare-acquired left lower lung pneumonia versus aspiration. - Continue antibiotics per ID. - Dr. Rojas is following an infection disease consultation. - E. coli ESBL urinary tract infection. Continue Ertapenem. - Sepsis with Ecoli ESBL bacteremia 2 UTI.resolved. - Normocytic anemia. - Dr Gaona is following in hematology consultation. - monitor H/H, bleeding - Dysphagia, with G-tube. Status post G-tube removal by patient. Status post G-tube placement by Dr. Vegas 05/10, currently DC'd by patient. - aspiration precautions - History of chronic respiratory failure with tracheostomy. - Benign prostatic hypertrophy. - Schizoaffective disorder. Continue Seroquel and Ativan as needed for agitation. - Lovenox for deep venous thrombosis prophylaxis - Pepcid for peptic ulcer disease prophylaxis. Further recommendations based on clinical course. Total critical care time spent 35 mins. Plan of care discussed with Dr. Colunga. Subjective 24 Hr Interval Summary Constitutional: requiring IVF, requiring O2 Exam/Review of Systems Vital Signs Vitals Vital Signs Date Time Temp Pulse Resp B/P Pulse Ox O2 Delivery O2 Flow Rate FiO2 05/13/16 17:18 52 20 99 40 05/13/16 15:52 98.6 131/67 05/12/16 18:00 Mechanical Ventilator Intake and Output 05/12/16 05/12/16 05/13/16 15:00 23:00 07:00 Output Total 3 ml Balance -3 ml Exam Constitutional: alert, frail Psych: nl mood/affect Eyes: EOMI, nl sclera ENMT: nl external ears & nose Neck: supple Respiratory: diminished breath sounds Cardiovascular: nl pulses Gastrointestinal: non-tender, other, soft Musculoskeletal: muscle weakness Extremities: normal pulses Neurological: confused, other Lymph: nontender Results Result Diagram: 05/13/16 0615 05/13/16 0615 Results 24 hrs Laboratory Tests Test 05/13/16 06:15 05/13/16 08:55 White Blood Count 6.6 # Red Blood Count 3.89 L Hemoglobin 10.6 L Hematocrit 33.7 L Mean Corpuscular Volume 86.6 Mean Corpuscular Hemoglobin 27.2 L Mean Corpuscular Hemoglobin Concent 31.5 L Red Cell Distribution Width 17.2 H Platelet Count 127 L Mean Platelet Volume 11.4 H Neutrophils % 78.1 H Lymphocytes % 14.5 L Monocytes % 5.9 Eosinophils % 0.8 Basophils % 0.5 Nucleated Red Blood Cells % 0.0 Neutrophils # 5.2 Lymphocytes # 1.0 Monocytes # 0.4 Eosinophils # 0.1 Basophils # 0.0 Nucleated Red Blood Cells # 0.0 Sodium Level 139 Potassium Level 3.6 Chloride Level 95 L Carbon Dioxide Level 35 H Anion Gap 13 Blood Urea Nitrogen 13 Creatinine 0.56 L Glucose Level 79 Calcium Level 8.7 Lab Scanned Report REFERENCE LAB Medications Medications Current Medications Ondansetron HCl (Zofran Inj) 4 mg Q6H PRN IV NAUSEA AND/OR VOMITING Last administered on 04/24/16 21:00; Admin Dose 4 MG; Start 04/11/16 at 22:30 Acetaminophen (Tylenol Tab) 650 mg Q6H PRN PO PAIN LEVEL 1-3 OR FEVER; Start at 22:30 Morphine Sulfate (morphine) 2 mg Q4H PRN IV PAIN LEVEL 7-10 Last administered on 05/13/16 17:35; Admin Dose 2 MG; Start 04/11/16 at 22:30 Ascorbic Acid (Vitamin C) 500 mg DAILY GTB Last administered on 05/11/16 09:13 ; Admin Dose 500 MG; Start 04/12/16 at 09:00 Bisacodyl (Dulcolax) 10 mg DAILY PRN PO CONSTIPATION; Start 04/11/16 at 22:30 Chlorhexidine Gluconate (Peridex) 15 ml BID MM Last administered on 05/13/16 09:34; Admin Dose 15 ML; Start 04/12/16 at 09:00 Ferrous Sulfate (Feosol Liquid Cup) 300 mg BID GTB Last administered on 22:09; Admin Dose 300 MG; Start 04/12/16 at 09:00 Acetaminophen/ Hydrocodone Bitart ([place] (5/325)) 1 tab Q4 PRN GTB PAIN LEVEL 6 -10; Start 04/11/16 at 22:30 Lactulose (Enulose) 20 gm DAILY GTB Last administered on 05/11/16 09:12; Admin Dose 20 GM; Start 04/12/16 at 09:00 Quetiapine Fumarate (Seroquel) 25 mg BID@ GTB Last administered on 17:33; Admin Dose 25 MG; Start 04/12/16 at 09:00 Quetiapine Fumarate (Seroquel) 200 mg HS GTB Last administered on 05/10/16 21: 28; Admin Dose 200 MG; Start 04/12/16 at 21:00 Senna (Senokot) 1 tab QHS GTB Last administered on 05/11/16 22:09; Admin Dose 1 TAB; Start 04/12/16 at 21:00 Sodium Biphosphate/ Sodium Phosphate (Fleet Enema Pediatric) 66.6 ml DAILY PRN [place] CONSTIPATION; Start 04/11/16 at 22:30 Thiamine HCl (Vitamin B1) 100 mg DAILY GTB Last administered on 05/11/16 09:13 ; Admin Dose 100 MG; Start 04/12/16 at 09:00 Calcium Carbonate (Tums) 500 mg DAILY GTB Last administered on 05/11/16 09:13 ; Admin Dose 500 MG; Start 04/12/16 at 09:00 Multivitamins/ Minerals (Theragran-M) 1 tab DAILY PO Last administered on 09:13; Admin Dose 1 TAB; Start 04/12/16 at 09:00 Hydralazine HCl (Apresoline) 10 mg Q6H PRN IV SBP >160 Last administered on 16:38; Admin Dose 10 MG; Start 04/12/16 at 12:30 Famotidine (Pepcid) 20 mg Q12 GTB Last administered on 05/11/16 22:09; Admin Dose 20 MG; Start 04/19/16 at 21:00 Lorazepam (Ativan) 1 mg Q4 PRN IV AGITATION/ANXIETY Last administered on 02:52; Admin Dose 1 MG; Start 04/24/16 at 21:00 Clonidine (Catapres) 0.1 mg Q6H PRN PO ELEVATED BLOOD PRESSURE; Start 04/24/16 at 23:30 Metoprolol Tartrate (Lopressor) 5 mg Q4H PRN IV PRN HR>110 Hold SBP<100; Start 04/28/16 at 13:30 Metoprolol Tartrate (Lopressor) 25 mg BID PO Last administered on 04/29/16 21: 29; Admin Dose 25 MG; Start 04/29/16 at 21:00; Status Future Hold Lorazepam (Ativan) 1 mg Q6 GTB Last administered on 05/12/16 03:11; Admin Dose 1 MG; Start 05/02/16 at 00:00 Aspirin (Aspirin) 81 mg DAILY PO Last administered on 05/11/16 09:13; Admin Dose 81 MG; Start 05/02/16 at 14:30 Chlordiazepoxide (Librium) 10 mg TID PO Last administered on 05/11/16 12:03; Admin Dose 10 MG; Start 05/04/16 at 09:00 Acetaminophen (Tylenol Liquid) 650 mg Q6H PRN GTB FEVER >101; Start 05/06/16 at 11:30 Furosemide (Lasix) 20 mg BID IV Last administered on 05/13/16 09:34; Admin Dose 20 MG; Start 05/06/16 at 21:00 Benazepril HCl 10 mg 10 mg DAILY PO ; Start 05/13/16 at 09:00 Potassium Chloride/Dextrose/ Sod Cl (D5-1/2ns + KCl 20 Meq) 1,000 ml @ 70 mls/ hr [id number] IV Last administered on 05/13/16 12:42; Admin Dose 70 MLS/HR; Start 05/12/16 at 19:00 Clonidine HCl (Catapres-Tts 1 Patch) 1 patch Q7D TRANSDERM Last administered on 05/13/16t 15:28; Admin Dose 1 PATCH; Start 05/13/16 at 13:00 Hydralazine HCl (Apresoline) 10 mg Q6H PRN IV SBP>170; Start 05/13/16 at 13:00 BRENT KENDRICK May 13, 2016 18:32
[2016-05-13] MEDS: SENNA TAB GTB SCH (21:00)
[2016-05-13] MEDS: QUETIAPINE 100 MG TAB GTB SCH (21:00)
[2016-05-14] VITALS (27 sets, daily range): BP systolic 135–161; BP diastolic 78–108; PULSE 65–92; RESP 19–28
[2016-05-14] MEDS: LORAZEPAM 2 MG INJ IV PRN ×3 (00:18→19:52)
[2016-05-14] MEDS: IPRATROPIUM (HFA) 12.9 GM INHALER INH SCH ×4 (01:00→20:09)
[2016-05-14] MEDS: ALBUTEROL HFA 8 GM INHALER INH SCH ×4 (01:00→20:09)
[2016-05-14] MEDS: LORAZEPAM 1 MG TAB GTB SCH ×4 (06:00→17:09)
[2016-05-14] MEDS: D5W-0.45 NACL + KCL 20 MEQ 1,000 ML IV SCH (06:02)
[2016-05-14 06:14] LABS: ADD SCAN DIFF NO
[2016-05-14 06:56] LABS: BASOPHILS % 0.5 % (0.0-2.0); EOSINOPHILS % 0.5 % (0.0-7.0); HEMATOCRIT 31.3 % (42.0-52.0); HEMOGLOBIN 9.9 g/dl (14.0-18.0); LYMPHOCYTES # 0.8 10^3/ul (0.8-2.9); LYMPHOCYTES % 11.4 % (15.0-51.0); MEAN CORPUSCULAR HEMOGLOBIN 27.3 pg (29.0-33.0); MEAN CORPUSCULAR HGB CONC 31.6 g/dl (32.0-37.0); MEAN CORPUSCULAR VOLUME 86.5 fl (82.0-101.0); MEAN PLATELET VOLUME 11.8 fl (7.4-10.4); MONOCYTE # 0.6 10^3/ul (0.3-0.9); MONOCYTES % 7.5 % (0.0-11.0); NEUTROPHIL # 5.8 10^3/ul (1.6-7.5); NEUTROPHILS % 79.8 % (39.0-77.0); PLATELET COUNT 147 10^3/UL (140-415); POTASSIUM 3.9 mmol/L (3.5-5.1); RED BLOOD COUNT 3.62 10^6/ul (4.70-6.10); RED CELL DISTRIBUTION WIDTH 17.1 % (11.5-14.5); WHITE BLOOD COUNT 7.3 10^3/ul (4.8-10.8)
[2016-05-14 06:59] LABS: CALCIUM 8.8 mg/dl (8.4-10.2); CREATININE 0.55 mg/dl (0.61-1.24)
[2016-05-14 07:00] LABS: MAGNESIUM 1.5 mg/dl (1.7-2.5)
[2016-05-14] MEDS: QUETIAPINE 25 MG TAB GTB SCH ×2 (09:00→17:00)
[2016-05-14] MEDS: ASCORBIC ACID 500 MG TAB GTB SCH (09:00)
[2016-05-14] MEDS: BENAZEPRIL 10 MG TAB PO SCH (09:00)
[2016-05-14] MEDS: FAMOTIDINE 20 MG TAB GTB SCH ×2 (09:00→21:00)
[2016-05-14] MEDS: LACTULOSE 30ML CUP GTB SCH (09:00)
[2016-05-14] MEDS: ASPIRIN 81 MG TAB PO SCH (09:00)
[2016-05-14] MEDS: CALCIUM CARBONATE 500 MG CHEW TAB GTB SCH (09:00)
[2016-05-14] MEDS: MULTIVITAMINS/MINERALS TAB PO SCH (09:00)
[2016-05-14] MEDS: FERROUS SULFATE 60 MG/ML 5ML CUP GTB SCH ×3 (09:00→21:00)
[2016-05-14] MEDS: THIAMINE 100 MG TAB GTB SCH (09:00)
[2016-05-14] MEDS: CHLORDIAZEPOXIDE 5 MG CAP PO SCH ×3 (09:00→21:00)
[2016-05-14] MEDS: CHLORHEXIDINE GLUCONATE 15 ML UD CUP MM SCH ×2 (11:09→21:00)
[2016-05-14] MEDS: FUROSEMIDE 20 MG INJ IV SCH ×2 (11:09→21:37)
--- NOTE | 2016-05-14 11:54 | CONS ---
Date/Time of Note Date/Time of Note DATE: 05/14/16 TIME: 11:51 Assessment/Plan Assessment/Plan Additional Assessment/Plan Ventilator settings; AC of 12, tidal volume 450, PEEP of 5, 30% FiO2. Assessment recommendations; next 1. Patient admitted for severe right-sided pneumonia with interval improvement but then developed recurrent bilateral pneumonia likely from aspiration. With again marked clinical and radiological resolution. 2. Hypercapnic respiratory failure patient not requiring invasive mechanical ventilation. 3. History of paraplegia. 4. History of alcoholic encephalopathy 5. Episodes of occasional agitation patient pulled out his G-tube. Continue current treatment. Patient prognosis remains poor. Consultation Date/Type/Reason Admit Date/Time Apr 11, 2016 at 22:13 Initial Consult Date 04/12/16 Type of Consultation: Pulmonary/critical care Referring Provider: ANNETTA AGUILAR MD 24 HR Interval Summary Free Text/Dictation Patient condition remains stable. Remains awake and alert. Has remained hemodynamically stable. Remains ventilator dependent. General exam; elderly male, on ventilator via tracheostomy currently in no distress. Exam/Review of Systems Vital Signs Vitals Vital Signs Date Time Temp Pulse Resp B/P Pulse Ox O2 Delivery O2 Flow Rate FiO2 05/14/16 11:40 78 21 96 30 05/14/16 11:15 98.7 138/87 05/14/16 02:00 Mechanical Ventilator Trach Collar Intake and Output 05/13/16 05/13/16 05/14/16 15:00 23:00 07:00 Intake Total 420 ml 200 ml Output Total 1000 ml 300 ml Balance 420 ml -800 ml -300 ml Exam HEENT examination; supple neck, no JVD. No lymphadenopathy. Midline trachea. No thyromegaly. Tracheostomy in place with clean insertion site. Upper jaw is edentulous. Chest examination; clear to auscultation. S1-S2 audible, no murmurs. Regular rhythm. Abdomen examination; soft, nondistended. No organomegaly. Bowel sounds are audible. There is a dressing applied over the previous G-tube site. Extremity examination; no peripheral edema. [employer] examination; patient stable paraplegia. Results Result Diagram: 05/14/16 0535 05/14/16 0535 Results 24 hrs Laboratory Tests Test 05/13/16 18:55 05/14/16 05:35 Magnesium Level 1.4 L 1.5 L White Blood Count 7.3 Red Blood Count 3.62 L Hemoglobin 9.9 L Hematocrit 31.3 L Mean Corpuscular Volume 86.5 Mean Corpuscular Hemoglobin 27.3 L Mean Corpuscular Hemoglobin Concent 31.6 L Red Cell Distribution Width 17.1 H Platelet Count 147 Mean Platelet Volume 11.8 H Neutrophils % 79.8 H Lymphocytes % 11.4 L Monocytes % 7.5 Eosinophils % 0.5 Basophils % 0.5 Nucleated Red Blood Cells % 0.0 Neutrophils # 5.8 Lymphocytes # 0.8 Monocytes # 0.6 Eosinophils # 0.0 Basophils # 0.0 Nucleated Red Blood Cells # 0.0 Sodium Level 141 Potassium Level 3.9 Chloride Level 99 Carbon Dioxide Level 31 Anion Gap 15 Blood Urea Nitrogen 12 Creatinine 0.55 L Glucose Level 76 Calcium Level 8.8 Medications Medications Current Medications Ondansetron HCl (Zofran Inj) 4 mg Q6H PRN IV NAUSEA AND/OR VOMITING Last administered on 04/24/16 21:00; Admin Dose 4 MG; Start 04/11/16 at 22:30 Acetaminophen (Tylenol Tab) 650 mg Q6H PRN PO PAIN LEVEL 1-3 OR FEVER; Start at 22:30 Morphine Sulfate (morphine) 2 mg Q4H PRN IV PAIN LEVEL 7-10 Last administered on 05/13/16 17:35; Admin Dose 2 MG; Start 04/11/16 at 22:30 Ascorbic Acid (Vitamin C) 500 mg DAILY GTB Last administered on 05/11/16 09:13 ; Admin Dose 500 MG; Start 04/12/16 at 09:00 Bisacodyl (Dulcolax) 10 mg DAILY PRN PO CONSTIPATION; Start 04/11/16 at 22:30 Chlorhexidine Gluconate (Peridex) 15 ml BID MM Last administered on 05/14/16 11:09; Admin Dose 15 ML; Start 04/12/16 at 09:00 Ferrous Sulfate (Feosol Liquid Cup) 300 mg BID GTB Last administered on 22:09; Admin Dose 300 MG; Start 04/12/16 at 09:00 Acetaminophen/ Hydrocodone Bitart ([place] (5/325)) 1 tab Q4 PRN GTB PAIN LEVEL 6 -10; Start 04/11/16 at 22:30 Lactulose (Enulose) 20 gm DAILY GTB Last administered on 05/11/16 09:12; Admin Dose 20 GM; Start 04/12/16 at 09:00 Quetiapine Fumarate (Seroquel) 25 mg BID@ GTB Last administered on 17:33; Admin Dose 25 MG; Start 04/12/16 at 09:00 Quetiapine Fumarate (Seroquel) 200 mg HS GTB Last administered on 05/10/16 21: 28; Admin Dose 200 MG; Start 04/12/16 at 21:00 Senna (Senokot) 1 tab QHS GTB Last administered on 05/11/16 22:09; Admin Dose 1 TAB; Start 04/12/16 at 21:00 Sodium Biphosphate/ Sodium Phosphate (Fleet Enema Pediatric) 66.6 ml DAILY PRN [place] CONSTIPATION; Start 04/11/16 at 22:30 Thiamine HCl (Vitamin B1) 100 mg DAILY GTB Last administered on 05/11/16 09:13 ; Admin Dose 100 MG; Start 04/12/16 at 09:00 Calcium Carbonate (Tums) 500 mg DAILY GTB Last administered on 05/11/16 09:13 ; Admin Dose 500 MG; Start 04/12/16 at 09:00 Multivitamins/ Minerals (Theragran-M) 1 tab DAILY PO Last administered on 09:13; Admin Dose 1 TAB; Start 04/12/16 at 09:00 Hydralazine HCl (Apresoline) 10 mg Q6H PRN IV SBP >160 Last administered on 16:38; Admin Dose 10 MG; Start 04/12/16 at 12:30 Famotidine (Pepcid) 20 mg Q12 GTB Last administered on 05/11/16 22:09; Admin Dose 20 MG; Start 04/19/16 at 21:00 Lorazepam (Ativan) 1 mg Q4 PRN IV AGITATION/ANXIETY Last administered on 00:18; Admin Dose 1 MG; Start 04/24/16 at 21:00 Clonidine (Catapres) 0.1 mg Q6H PRN PO ELEVATED BLOOD PRESSURE; Start 04/24/16 at 23:30 Metoprolol Tartrate (Lopressor) 5 mg Q4H PRN IV PRN HR>110 Hold SBP<100; Start 04/28/16 at 13:30 Metoprolol Tartrate (Lopressor) 25 mg BID PO Last administered on 04/29/16 21: 29; Admin Dose 25 MG; Start 04/29/16 at 21:00; Status Future Hold Lorazepam (Ativan) 1 mg Q6 GTB Last administered on 05/12/16 03:11; Admin Dose 1 MG; Start 05/02/16 at 00:00 Aspirin (Aspirin) 81 mg DAILY PO Last administered on 05/11/16 09:13; Admin Dose 81 MG; Start 05/02/16 at 14:30 Chlordiazepoxide (Librium) 10 mg TID PO Last administered on 05/11/16 12:03; Admin Dose 10 MG; Start 05/04/16 at 09:00 Acetaminophen (Tylenol Liquid) 650 mg Q6H PRN GTB FEVER >101; Start 05/06/16 at 11:30 Furosemide (Lasix) 20 mg BID IV Last administered on 05/14/16 11:09; Admin Dose 20 MG; Start 05/06/16 at 21:00 Benazepril HCl 10 mg 10 mg DAILY PO ; Start 05/13/16 at 09:00 Potassium Chloride/Dextrose/ Sod Cl (D5-1/2ns + KCl 20 Meq) 1,000 ml @ 70 mls/ hr [id number] IV Last administered on 05/14/16 06:02; Admin Dose 70 MLS/HR; Start 05/12/16 at 19:00 Clonidine HCl (Catapres-Tts 1 Patch) 1 patch Q7D TRANSDERM Last administered on 05/13/16 15:28; Admin Dose 1 PATCH; Start 05/13/16 at 13:00 Hydralazine HCl (Apresoline) 10 mg Q6H PRN IV SBP>170; Start 05/13/16 at 13:00 KATHERYN LAWTON May 14, 2016 11:54
--- NOTE | 2016-05-14 15:03 | CONS ---
Date/Time of Note Date/Time of Note DATE: 05/14/16 TIME: 14:55 Assessment/Plan Assessment/Plan Chief Complaint/Hosp Course 65 up male with acute hypoxic respiratory failure being admitted for sepsis secondary to ESBL bacteremia. Pt had a worsening normocytic anemia that was likely secondary to his underlying sepsis and antibiotic use. Pt is now off antibiotic and Hg has remained stable. PT had a bleeding trach site and found with and elevated PTT to 85. Pt was given SQ Vitamin K. He is no longer bleeding and PTT has decreased to 50's # Anemia -HG stable ~ 10 -continue to monitor Hg. If < 8 will consider transfusion. CBC is improving -s/p 5 days of IV iron. Now on po iron # Thrombocytopenia -likely secondary to sepsis and antibiotics. platelets are slowly improving, thrombocytopenia resolved # Bleeding trach -resolved -Lupus anticoagulant noted to be detected with screening LA and hexagonal phase confirm, ordered due to elevated PTT, though lupus anticoagulant would predispose to clotting, not bleeding. Will re-check lupus anticoagulant, along with beta2 glycoprotein and anticardiolipin Ab. #Pneumonia -continue antibiotics Problems: Consultation Date/Type/Reason Admit Date/Time Apr 11, 2016 at 22:13 Initial Consult Date 04/21/16 Type of Consultation: Hematology Referring Provider: ANNETTA AGUILAR MD 24 HR Interval Summary Free Text/Dictation Patient states that he wants to go home. per RN, pulled out PEG 05/12/16. No bleeding at this time. Exam/Review of Systems Vital Signs Vitals Vital Signs Date Time Temp Pulse Resp B/P Pulse Ox O2 Delivery O2 Flow Rate FiO2 05/14/16 13:10 72 20 96 30 05/14/16 11:15 98.7 138/87 05/14/16 02:00 Mechanical Ventilator Trach Collar Intake and Output 05/13/16 05/13/16 05/14/16 15:00 23:00 07:00 Intake Total 420 ml 200 ml Output Total 1000 ml 300 ml Balance 420 ml -800 ml -300 ml Exam Constitutional: distress, frail Psych: anxiety, confusion Head: normocephalic Eyes: nl conjunctiva ENMT: nl external ears & nose Neck: other (trach in place) Respiratory: clear to auscultation, normal air movement Cardiovascular: regular rate and rhythm Gastrointestinal: other (g tube in place) Musculoskeletal: nl extremities to inspection Extremities: normal pulses Results Result Diagram: 05/14/16 0535 05/14/16 0535 Results 24 hrs Laboratory Tests Test 05/13/16 18:55 05/14/16 05:35 Magnesium Level 1.4 L 1.5 L White Blood Count 7.3 Red Blood Count 3.62 L Hemoglobin 9.9 L Hematocrit 31.3 L Mean Corpuscular Volume 86.5 Mean Corpuscular Hemoglobin 27.3 L Mean Corpuscular Hemoglobin Concent 31.6 L Red Cell Distribution Width 17.1 H Platelet Count 147 Mean Platelet Volume 11.8 H Neutrophils % 79.8 H Lymphocytes % 11.4 L Monocytes % 7.5 Eosinophils % 0.5 Basophils % 0.5 Nucleated Red Blood Cells % 0.0 Neutrophils # 5.8 Lymphocytes # 0.8 Monocytes # 0.6 Eosinophils # 0.0 Basophils # 0.0 Nucleated Red Blood Cells # 0.0 Sodium Level 141 Potassium Level 3.9 Chloride Level 99 Carbon Dioxide Level 31 Anion Gap 15 Blood Urea Nitrogen 12 Creatinine 0.55 L Glucose Level 76 Calcium Level 8.8 Medications Medications Current Medications Ondansetron HCl (Zofran Inj) 4 mg Q6H PRN IV NAUSEA AND/OR VOMITING Last administered on 04/24/16 21:00; Admin Dose 4 MG; Start 04/11/16 at 22:30 Acetaminophen (Tylenol Tab) 650 mg Q6H PRN PO PAIN LEVEL 1-3 OR FEVER; Start at 22:30 Morphine Sulfate (morphine) 2 mg Q4H PRN IV PAIN LEVEL 7-10 Last administered on 05/13/16 17:35; Admin Dose 2 MG; Start 04/11/16 at 22:30 Ascorbic Acid (Vitamin C) 500 mg DAILY GTB Last administered on 05/11/16 09:13 ; Admin Dose 500 MG; Start 04/12/16 at 09:00 Bisacodyl (Dulcolax) 10 mg DAILY PRN PO CONSTIPATION; Start 04/11/16 at 22:30 Chlorhexidine Gluconate (Peridex) 15 ml BID MM Last administered on 05/14/16 11:09; Admin Dose 15 ML; Start 04/12/16 at 09:00 Ferrous Sulfate (Feosol Liquid Cup) 300 mg BID GTB Last administered on 22:09; Admin Dose 300 MG; Start 04/12/16 at 09:00 Acetaminophen/ Hydrocodone Bitart ([place] (5/325)) 1 tab Q4 PRN GTB PAIN LEVEL 6 -10; Start 04/11/16 at 22:30 Lactulose (Enulose) 20 gm DAILY GTB Last administered on 05/11/16 09:12; Admin Dose 20 GM; Start 04/12/16 at 09:00 Quetiapine Fumarate (Seroquel) 25 mg BID@ GTB Last administered on 17:33; Admin Dose 25 MG; Start 04/12/16 at 09:00 Quetiapine Fumarate (Seroquel) 200 mg HS GTB Last administered on 05/10/16 21: 28; Admin Dose 200 MG; Start 04/12/16 at 21:00 Senna (Senokot) 1 tab QHS GTB Last administered on 05/11/16 22:09; Admin Dose 1 TAB; Start 04/12/16 at 21:00 Sodium Biphosphate/ Sodium Phosphate (Fleet Enema Pediatric) 66.6 ml DAILY PRN [place] CONSTIPATION; Start 04/11/16 at 22:30 Thiamine HCl (Vitamin B1) 100 mg DAILY GTB Last administered on 05/11/16 09:13 ; Admin Dose 100 MG; Start 04/12/16 at 09:00 Calcium Carbonate (Tums) 500 mg DAILY GTB Last administered on 05/11/16 09:13 ; Admin Dose 500 MG; Start 04/12/16 at 09:00 Multivitamins/ Minerals (Theragran-M) 1 tab DAILY PO Last administered on 09:13; Admin Dose 1 TAB; Start 04/12/16 at 09:00 Hydralazine HCl (Apresoline) 10 mg Q6H PRN IV SBP >160 Last administered on 16:38; Admin Dose 10 MG; Start 04/12/16 at 12:30 Famotidine (Pepcid) 20 mg Q12 GTB Last administered on 05/11/16 22:09; Admin Dose 20 MG; Start 04/19/16 at 21:00 Lorazepam (Ativan) 1 mg Q4 PRN IV AGITATION/ANXIETY Last administered on 13:37; Admin Dose 1 MG; Start 04/24/16 at 21:00 Clonidine (Catapres) 0.1 mg Q6H PRN PO ELEVATED BLOOD PRESSURE; Start 04/24/16 at 23:30 Metoprolol Tartrate (Lopressor) 5 mg Q4H PRN IV PRN HR>110 Hold SBP<100; Start 04/28/16 at 13:30 Metoprolol Tartrate (Lopressor) 25 mg BID PO Last administered on 04/29/16 21: 29; Admin Dose 25 MG; Start 04/29/16 at 21:00; Status Future Hold Lorazepam (Ativan) 1 mg Q6 GTB Last administered on 05/12/16 03:11; Admin Dose 1 MG; Start 05/02/16 at 00:00 Aspirin (Aspirin) 81 mg DAILY PO Last administered on 05/11/16 09:13; Admin Dose 81 MG; Start 05/02/16 at 14:30 Chlordiazepoxide (Librium) 10 mg TID PO Last administered on 05/11/16 12:03; Admin Dose 10 MG; Start 05/04/16 at 09:00 Acetaminophen (Tylenol Liquid) 650 mg Q6H PRN GTB FEVER >101; Start 05/06/16 at 11:30 Furosemide (Lasix) 20 mg BID IV Last administered on 05/14/16 11:09; Admin Dose 20 MG; Start 05/06/16 at 21:00 Benazepril HCl 10 mg 10 mg DAILY PO ; Start 05/13/16 at 09:00 Potassium Chloride/Dextrose/ Sod Cl (D5-1/2ns + KCl 20 Meq) 1,000 ml @ 70 mls/ hr [id number] IV Last administered on 05/14/16 06:02; Admin Dose 70 MLS/HR; Start 05/12/16 at 19:00 Clonidine HCl (Catapres-Tts 1 Patch) 1 patch Q7D TRANSDERM Last administered on 05/13/16 15:28; Admin Dose 1 PATCH; Start 05/13/16 at 13:00 Hydralazine HCl (Apresoline) 10 mg Q6H PRN IV SBP>170; Start 05/13/16 at 13:00 SHERYL TSAI MD May 14, 2016 15:03
--- NOTE | 2016-05-14 15:51 | CONS ---
Date/Time of Note Date/Time of Note DATE: 05/14/16 TIME: 15:49 Assessment/Plan Assessment/Plan Chief Complaint/Hosp Course IMPRESSION: 1. Wide complex tachycardia, cardiac arrhythmia. Rule out nonsustained ventricular tachycardia.-likely c/w abberant AF-no recurrence 2. Abnormal electrocardiogram, assess for acute coronary syndrome. 3. Congestive heart failure by chest x-ray, diastolic by most recent echo acute on chronic. 4. Hypertension with current borderline HOtn s/p IVP hydralazine 5. Respiratory failure, chronic, status post tracheostomy with desat now transferred to ICU 6. Dysphagia, status post G-tube which patient pulled out/self d/c'd 7. Psychiatric disorder. 8. Urinary tract infection. 9. Hypokalemia-improved 10. Anemia. 11. Leukopenia. 12.Nstemi-no current chest pain/decreased enzymes 14. Bradycardia-improved Recc: -Tele -Continue to hold BB given prior bradycardia -Continue asa medical therapy for nstemi with currently decreased cardiac enzymes/NO cp as able given no po access -Continue lasix diuresis and consider increase dose to improve diuresis -LHC discussed with patient but patient does not have clear understanding and would like to wait -LOvenox held due to trach site bleeding -Continue ACEI/clonidine TTS Problems: Consultation Date/Type/Reason Admit Date/Time Apr 11, 2016 at 22:13 Initial Consult Date 04/21/16 Type of Consultation: Cardiology Reason for Consultation Nstemi Referring Provider: ANNETTA AGUILAR MD Exam/Review of Systems Vital Signs Vitals Vital Signs Date Time Temp Pulse Resp B/P Pulse Ox O2 Delivery O2 Flow Rate FiO2 05/14/16 13:10 72 20 96 30 05/14/16 11:15 98.7 138/87 05/14/16 02:00 Mechanical Ventilator Trach Collar Intake and Output 05/13/16 05/13/16 05/14/16 15:00 23:00 07:00 Intake Total 420 ml 200 ml Output Total 1000 ml 300 ml Balance 420 ml -800 ml -300 ml Exam Review of Systems: CONSTITUTIONAL: No fevers, chills. PULMONARY: trach/sob CARDIOVASCULAR: No chest pain/palpitations GASTROINTESTINAL: No nausea/vomiting. GENITOURINARY: No hematuria/dysuria. MUSCULOSKELETAL: No myagias/arthalgias. PSYCHIATRIC: The patient denies depression. NEUROLOGIC: generalized weakness Constitutional: alert Head: normocephalic ENMT: other (trach) Neck: jvd (9 cm water), supple Respiratory: other (upper airway rhochi) Cardiovascular: regular rate and rhythm Gastrointestinal: non-tender, soft Musculoskeletal: muscle tone (normal) Extremities: edema (none), other (contracted) Neurological: lethargic Results Result Diagram: 05/14/16 0535 05/14/16 0535 Results 24 hrs Laboratory Tests Test 05/13/16 18:55 05/14/16 05:35 Magnesium Level 1.4 L 1.5 L White Blood Count 7.3 Red Blood Count 3.62 L Hemoglobin 9.9 L Hematocrit 31.3 L Mean Corpuscular Volume 86.5 Mean Corpuscular Hemoglobin 27.3 L Mean Corpuscular Hemoglobin Concent 31.6 L Red Cell Distribution Width 17.1 H Platelet Count 147 Mean Platelet Volume 11.8 H Neutrophils % 79.8 H Lymphocytes % 11.4 L Monocytes % 7.5 Eosinophils % 0.5 Basophils % 0.5 Nucleated Red Blood Cells % 0.0 Neutrophils # 5.8 Lymphocytes # 0.8 Monocytes # 0.6 Eosinophils # 0.0 Basophils # 0.0 Nucleated Red Blood Cells # 0.0 Sodium Level 141 Potassium Level 3.9 Chloride Level 99 Carbon Dioxide Level 31 Anion Gap 15 Blood Urea Nitrogen 12 Creatinine 0.55 L Glucose Level 76 Calcium Level 8.8 Medications Medications Current Medications Ondansetron HCl (Zofran Inj) 4 mg Q6H PRN IV NAUSEA AND/OR VOMITING Last administered on 04/24/16 21:00; Admin Dose 4 MG; Start 04/11/16 at 22:30 Acetaminophen (Tylenol Tab) 650 mg Q6H PRN PO PAIN LEVEL 1-3 OR FEVER; Start at 22:30 Morphine Sulfate (morphine) 2 mg Q4H PRN IV PAIN LEVEL 7-10 Last administered on 05/13/16 17:35; Admin Dose 2 MG; Start 04/11/16 at 22:30 Ascorbic Acid (Vitamin C) 500 mg DAILY GTB Last administered on 05/11/16 09:13 ; Admin Dose 500 MG; Start 04/12/16 at 09:00 Bisacodyl (Dulcolax) 10 mg DAILY PRN PO CONSTIPATION; Start 04/11/16 at 22:30 Chlorhexidine Gluconate (Peridex) 15 ml BID MM Last administered on 05/14/16 11:09; Admin Dose 15 ML; Start 04/12/16 at 09:00 Ferrous Sulfate (Feosol Liquid Cup) 300 mg BID GTB Last administered on 22:09; Admin Dose 300 MG; Start 04/12/16 at 09:00 Acetaminophen/ Hydrocodone Bitart ([place] (5/325)) 1 tab Q4 PRN GTB PAIN LEVEL 6 -10; Start 04/11/16 at 22:30 Lactulose (Enulose) 20 gm DAILY GTB Last administered on 05/11/16 09:12; Admin Dose 20 GM; Start 04/12/16 at 09:00 Quetiapine Fumarate (Seroquel) 25 mg BID@ GTB Last administered on 17:33; Admin Dose 25 MG; Start 04/12/16 at 09:00 Quetiapine Fumarate (Seroquel) 200 mg HS GTB Last administered on 05/10/16 21: 28; Admin Dose 200 MG; Start 04/12/16 at 21:00 Senna (Senokot) 1 tab QHS GTB Last administered on 05/11/16 22:09; Admin Dose 1 TAB; Start 04/12/16 at 21:00 Sodium Biphosphate/ Sodium Phosphate (Fleet Enema Pediatric) 66.6 ml DAILY PRN [place] CONSTIPATION; Start 04/11/16 at 22:30 Thiamine HCl (Vitamin B1) 100 mg DAILY GTB Last administered on 05/11/16 09:13 ; Admin Dose 100 MG; Start 04/12/16 at 09:00 Calcium Carbonate (Tums) 500 mg DAILY GTB Last administered on 05/11/16 09:13 ; Admin Dose 500 MG; Start 04/12/16 at 09:00 Multivitamins/ Minerals (Theragran-M) 1 tab DAILY PO Last administered on 09:13; Admin Dose 1 TAB; Start 04/12/16 at 09:00 Hydralazine HCl (Apresoline) 10 mg Q6H PRN IV SBP >160 Last administered on 16:38; Admin Dose 10 MG; Start 04/12/16 at 12:30 Famotidine (Pepcid) 20 mg Q12 GTB Last administered on 05/11/16 22:09; Admin Dose 20 MG; Start 04/19/16 at 21:00 Lorazepam (Ativan) 1 mg Q4 PRN IV AGITATION/ANXIETY Last administered on 13:37; Admin Dose 1 MG; Start 04/24/16 at 21:00 Clonidine (Catapres) 0.1 mg Q6H PRN PO ELEVATED BLOOD PRESSURE; Start 04/24/16 at 23:30 Metoprolol Tartrate (Lopressor) 5 mg Q4H PRN IV PRN HR>110 Hold SBP<100; Start 04/28/16 at 13:30 Metoprolol Tartrate (Lopressor) 25 mg BID PO Last administered on 04/29/16 21: 29; Admin Dose 25 MG; Start 04/29/16 at 21:00; Status Future Hold Lorazepam (Ativan) 1 mg Q6 GTB Last administered on 05/12/16 03:11; Admin Dose 1 MG; Start 05/02/16 at 00:00 Aspirin (Aspirin) 81 mg DAILY PO Last administered on 05/11/16 09:13; Admin Dose 81 MG; Start 05/02/16 at 14:30 Chlordiazepoxide (Librium) 10 mg TID PO Last administered on 05/11/16 12:03; Admin Dose 10 MG; Start 05/04/16 at 09:00 Acetaminophen (Tylenol Liquid) 650 mg Q6H PRN GTB FEVER >101; Start 05/06/16 at 11:30 Furosemide (Lasix) 20 mg BID IV Last administered on 05/14/16 11:09; Admin Dose 20 MG; Start 05/06/16 at 21:00 Benazepril HCl 10 mg 10 mg DAILY PO ; Start 05/13/16 at 09:00 Potassium Chloride/Dextrose/ Sod Cl (D5-1/2ns + KCl 20 Meq) 1,000 ml @ 70 mls/ hr [id number] IV Last administered on 05/14/16 06:02; Admin Dose 70 MLS/HR; Start 05/12/16 at 19:00 Clonidine HCl (Catapres-Tts 1 Patch) 1 patch Q7D TRANSDERM Last administered on 3/23/17at 15:28; Admin Dose 1 PATCH; Start 05/13/16 at 13:00 Hydralazine HCl (Apresoline) 10 mg Q6H PRN IV SBP>170; Start 05/13/16 at 13:00 LILI BRADEN May 14, 2016 15:51
--- NOTE | 2016-05-14 16:28 | PN ---
Date/Time of Note Date/Time of Note DATE: 05/14/16 TIME: 16:26 Assessment/Plan VTE Prophylaxis VTE Prophylaxis Intervention: SCD's Lines/Catheters IV [facility] PICC Line Central line still needed: Yes Urinary Cath still in place: Yes ([facility] CATH) Reason Cath still needed: urinary retention Assessment/Plan Chief Complaint/Hosp Course ASSESSMENT AND PLAN: -Bleeding from tracheostomy site, resolved. -Pancytopenia. Dr Gaona is following in hematology consultation. -Coagulopathy, status post vitamin K, Lovenox is held - NSTEMI, continue aspirin and Lovenox. Dr. Espitia is following patient in cardiology consultation. - Atrial fibrillation with rapid ventricular response. Continue metoprolol. Continue telemetry monitoring. - Bilateral pleural effusions, status post right sided thoracentesis. - Acute hypoxic respiratory failure. Dr. Anderson is following in pulmonology consultation. Continue ventilatory support and bronchodilators. - Possible healthcare-acquired left lower lung pneumonia versus aspiration. Continue antibiotics per ID. Dr. Rojas is following an infection disease consultation. - E. coli ESBL urinary tract infection, status post treatment. - Sepsis with Ecoli ESBL bacteremia 2 UTI, resolved. - Dysphagia, with G-tube. Status post G-tube removal by patient. Status post G-tube placement by Dr. Marcus 05/10, currently DC'd by patient. - History of chronic respiratory failure with tracheostomy. - Benign prostatic hypertrophy. - Schizoaffective disorder. Continue Seroquel and Ativan as needed for agitation. Continue Pepcid for peptic ulcer disease prophylaxis. Further recommendations based on clinical course. Plan of care discussed with Dr. Colunga. Problems: Subjective 24 Hr Interval Summary Free Text/Dictation No acute events overnight, pending G-tube placement. Exam/Review of Systems Vital Signs Vitals Vital Signs Date Time Temp Pulse Resp B/P Pulse Ox O2 Delivery O2 Flow Rate FiO2 05/14/16 16:02 98.0 94 20 147/83 95 05/14/16 15:15 30 05/14/16 02:00 Mechanical Ventilator Trach Collar Intake and Output 05/13/16 05/13/16 05/14/16 15:00 23:00 07:00 Intake Total 420 ml 200 ml Output Total 1000 ml 300 ml Balance 420 ml -800 ml -300 ml Exam GENERAL: A well-developed, cachectic gentleman, on ventilatory support via tracheostomy. HEENT: Head is atraumatic, normocephalic. LYDIA. NECK: Supple, with tracheostomy at the base of the neck. LUNGS: Diminished at the bases. Patient has scattered severe rhonchi bilaterally. CARDIOVASCULAR: Normal S1, S2. No murmurs, gallops, clicks, rubs noted. ABDOMEN: Flat, soft, nondistended, nontender. Bowel sounds present. EXTREMITIES: Contractured. There is no edema, clubbing, cyanosis. Pulses equal bilaterally, 2+. SKIN: There is no rash, petechiae noted. NEUROLOGIC: Awake alert, with intermittent periods of confusion Results Result Diagram: 05/14/16 0535 05/14/16 0535 Results 24 hrs Laboratory Tests Test 05/13/16 18:55 05/14/16 05:35 Magnesium Level 1.4 L 1.5 L White Blood Count 7.3 Red Blood Count 3.62 L Hemoglobin 9.9 L Hematocrit 31.3 L Mean Corpuscular Volume 86.5 Mean Corpuscular Hemoglobin 27.3 L Mean Corpuscular Hemoglobin Concent 31.6 L Red Cell Distribution Width 17.1 H Platelet Count 147 Mean Platelet Volume 11.8 H Neutrophils % 79.8 H Lymphocytes % 11.4 L Monocytes % 7.5 Eosinophils % 0.5 Basophils % 0.5 Nucleated Red Blood Cells % 0.0 Neutrophils # 5.8 Lymphocytes # 0.8 Monocytes # 0.6 Eosinophils # 0.0 Basophils # 0.0 Nucleated Red Blood Cells # 0.0 Sodium Level 141 Potassium Level 3.9 Chloride Level 99 Carbon Dioxide Level 31 Anion Gap 15 Blood Urea Nitrogen 12 Creatinine 0.55 L Glucose Level 76 Calcium Level 8.8 Medications Medications Current Medications Ondansetron HCl (Zofran Inj) 4 mg Q6H PRN IV NAUSEA AND/OR VOMITING Last administered on 04/24/16 21:00; Admin Dose 4 MG; Start 04/11/16 at 22:30 Acetaminophen (Tylenol Tab) 650 mg Q6H PRN PO PAIN LEVEL 1-3 OR FEVER; Start at 22:30 Morphine Sulfate (morphine) 2 mg Q4H PRN IV PAIN LEVEL 7-10 Last administered on 05/13/16 17:35; Admin Dose 2 MG; Start 04/11/16 at 22:30 Ascorbic Acid (Vitamin C) 500 mg DAILY GTB Last administered on 05/11/16 09:13 ; Admin Dose 500 MG; Start 04/12/16 at 09:00 Bisacodyl (Dulcolax) 10 mg DAILY PRN PO CONSTIPATION; Start 04/11/16 at 22:30 Chlorhexidine Gluconate (Peridex) 15 ml BID MM Last administered on 05/14/16 11:09; Admin Dose 15 ML; Start 04/12/16 at 09:00 Ferrous Sulfate (Feosol Liquid Cup) 300 mg BID GTB Last administered on 22:09; Admin Dose 300 MG; Start 04/12/16 at 09:00 Acetaminophen/ Hydrocodone Bitart ([place] (5/325)) 1 tab Q4 PRN GTB PAIN LEVEL 6 -10; Start 04/11/16 at 22:30 Lactulose (Enulose) 20 gm DAILY GTB Last administered on 05/11/16 09:12; Admin Dose 20 GM; Start 04/12/16 at 09:00 Quetiapine Fumarate (Seroquel) 25 mg BID@ GTB Last administered on 17:33; Admin Dose 25 MG; Start 04/12/16 at 09:00 Quetiapine Fumarate (Seroquel) 200 mg HS GTB Last administered on 05/10/16 21: 28; Admin Dose 200 MG; Start 04/12/16 at 21:00 Senna (Senokot) 1 tab QHS GTB Last administered on 05/11/16 22:09; Admin Dose 1 TAB; Start 04/12/16 at 21:00 Sodium Biphosphate/ Sodium Phosphate (Fleet Enema Pediatric) 66.6 ml DAILY PRN [place] CONSTIPATION; Start 04/11/16 at 22:30 Thiamine HCl (Vitamin B1) 100 mg DAILY GTB Last administered on 05/11/16 09:13 ; Admin Dose 100 MG; Start 04/12/16 at 09:00 Calcium Carbonate (Tums) 500 mg DAILY GTB Last administered on 05/11/16 09:13 ; Admin Dose 500 MG; Start 04/12/16 at 09:00 Multivitamins/ Minerals (Theragran-M) 1 tab DAILY PO Last administered on 09:13; Admin Dose 1 TAB; Start 04/12/16 at 09:00 Hydralazine HCl (Apresoline) 10 mg Q6H PRN IV SBP >160 Last administered on 16:38; Admin Dose 10 MG; Start 04/12/16 at 12:30 Famotidine (Pepcid) 20 mg Q12 GTB Last administered on 05/11/16 22:09; Admin Dose 20 MG; Start 04/19/16 at 21:00 Lorazepam (Ativan) 1 mg Q4 PRN IV AGITATION/ANXIETY Last administered on 13:37; Admin Dose 1 MG; Start 04/24/16 at 21:00 Clonidine (Catapres) 0.1 mg Q6H PRN PO ELEVATED BLOOD PRESSURE; Start 04/24/16 at 23:30 Metoprolol Tartrate (Lopressor) 5 mg Q4H PRN IV PRN HR>110 Hold SBP<100; Start 04/28/16 at 13:30 Metoprolol Tartrate (Lopressor) 25 mg BID PO Last administered on 04/29/16 21: 29; Admin Dose 25 MG; Start 04/29/16 at 21:00; Status Future Hold Lorazepam (Ativan) 1 mg Q6 GTB Last administered on 05/12/16 03:11; Admin Dose 1 MG; Start 05/02/16 at 00:00 Aspirin (Aspirin) 81 mg DAILY PO Last administered on 05/11/16 09:13; Admin Dose 81 MG; Start 05/02/16 at 14:30 Chlordiazepoxide (Librium) 10 mg TID PO Last administered on 05/11/16 12:03; Admin Dose 10 MG; Start 05/04/16 at 09:00 Acetaminophen (Tylenol Liquid) 650 mg Q6H PRN GTB FEVER >101; Start 05/06/16 at 11:30 Furosemide (Lasix) 20 mg BID IV Last administered on 05/14/16 11:09; Admin Dose 20 MG; Start 05/06/16 at 21:00 Benazepril HCl 10 mg 10 mg DAILY PO ; Start 05/13/16 at 09:00 Potassium Chloride/Dextrose/ Sod Cl (D5-1/2ns + KCl 20 Meq) 1,000 ml @ 70 mls/ hr [id number] IV Last administered on 05/14/16 06:02; Admin Dose 70 MLS/HR; Start 05/12/16 at 19:00 Clonidine HCl (Catapres-Tts 1 Patch) 1 patch Q7D TRANSDERM Last administered on 05/13/16 15:28; Admin Dose 1 PATCH; Start 05/13/16 at 13:00 Hydralazine HCl (Apresoline) 10 mg Q6H PRN IV SBP>170; Start 05/13/16 at 13:00 SHELBY BUNCH May 14, 2016 16:28
[2016-05-14] MEDS: QUETIAPINE 100 MG TAB GTB SCH (21:00)
[2016-05-14] MEDS: SENNA TAB GTB SCH (21:00)
[2016-05-14] MEDS: morphine 2 MG INJ IV PRN (21:37)
--- NOTE | 2016-05-14 22:15 | PN ---
DATE: 05/13/2016 The patient had a G-tube in place, which apparently the patient pulled it out. Patient is very unco operative, very combative. He does have a tracheostomy. He is alert, but he is combative, and he i s restless. I discussed the problem with Dr. Colunga for placement of a repeat percutaneous endosc opic gastrostomy. However, the patient would have subsequently put the G-tube out. Hence, at this time placing a percutaneous endoscopic gastrostomy tube is kept on hold. Once again, doctor, thank you for this consultation. Dictated By: CICI ALEJANDRA/DAVID Conf#: [id number] DID#: [id number]
[2016-05-15] VITALS (26 sets, daily range): BP systolic 111–152; BP diastolic 72–93; PULSE 57–98; RESP 12–29
[2016-05-15] MEDS: LORAZEPAM 2 MG INJ IV PRN ×3 (00:41→19:48)
[2016-05-15] MEDS: IPRATROPIUM (HFA) 12.9 GM INHALER INH SCH ×4 (00:53→21:05)
[2016-05-15] MEDS: ALBUTEROL HFA 8 GM INHALER INH SCH ×4 (00:53→21:05)
[2016-05-15] MEDS: morphine 2 MG INJ IV PRN (02:11)
[2016-05-15] MEDS: D5W-0.45 NACL + KCL 20 MEQ 1,000 ML IV SCH ×2 (04:44→14:26)
[2016-05-15] MEDS: LORAZEPAM 1 MG TAB GTB SCH ×5 (06:00→22:10)
[2016-05-15 07:41] LABS: ADD SCAN DIFF NO
[2016-05-15 07:42] LABS: BASOPHILS % 0.8 % (0.0-2.0); EOSINOPHILS # 0.1 10^3/ul (0.0-0.5); EOSINOPHILS % 1.4 % (0.0-7.0); HEMATOCRIT 32.6 % (42.0-52.0); HEMOGLOBIN 10.4 g/dl (14.0-18.0); LYMPHOCYTES # 1.2 10^3/ul (0.8-2.9); LYMPHOCYTES % 23.6 % (15.0-51.0); MEAN CORPUSCULAR HEMOGLOBIN 27.7 pg (29.0-33.0); MEAN CORPUSCULAR HGB CONC 31.9 g/dl (32.0-37.0); MEAN CORPUSCULAR VOLUME 86.9 fl (82.0-101.0); MEAN PLATELET VOLUME 11.9 fl (7.4-10.4); MONOCYTE # 0.5 10^3/ul (0.3-0.9); MONOCYTES % 10.4 % (0.0-11.0); NEUTROPHIL # 3.2 10^3/ul (1.6-7.5); NEUTROPHILS % 63.6 % (39.0-77.0); PLATELET COUNT 136 10^3/UL (140-415); RED BLOOD COUNT 3.75 10^6/ul (4.70-6.10); RED CELL DISTRIBUTION WIDTH 17.1 % (11.5-14.5); WHITE BLOOD COUNT 5.1 10^3/ul (4.8-10.8)
[2016-05-15 07:48] LABS: POTASSIUM 3.4 mmol/L (3.5-5.1)
[2016-05-15 07:51] LABS: CREATININE 0.53 mg/dl (0.61-1.24)
[2016-05-15 07:52] LABS: CALCIUM 8.9 mg/dl (8.4-10.2)
[2016-05-15] MEDS: ASCORBIC ACID 500 MG TAB GTB SCH (09:00)
[2016-05-15] MEDS: MULTIVITAMINS/MINERALS TAB PO SCH (09:00)
[2016-05-15] MEDS: THIAMINE 100 MG TAB GTB SCH (09:00)
[2016-05-15] MEDS: CHLORDIAZEPOXIDE 5 MG CAP PO SCH ×3 (09:00→21:00)
[2016-05-15] MEDS: ASPIRIN 81 MG TAB PO SCH (09:00)
[2016-05-15] MEDS: CALCIUM CARBONATE 500 MG CHEW TAB GTB SCH (09:00)
[2016-05-15] MEDS: FERROUS SULFATE 60 MG/ML 5ML CUP GTB SCH ×2 (09:00→21:00)
[2016-05-15] MEDS: FAMOTIDINE 20 MG TAB GTB SCH ×2 (09:00→21:00)
[2016-05-15] MEDS: BENAZEPRIL 10 MG TAB PO SCH (09:00)
[2016-05-15] MEDS: LACTULOSE 30ML CUP GTB SCH (09:00)
[2016-05-15] MEDS: QUETIAPINE 25 MG TAB GTB SCH ×2 (09:00→17:00)
[2016-05-15] MEDS: CHLORHEXIDINE GLUCONATE 15 ML UD CUP MM SCH ×2 (10:33→21:00)
[2016-05-15] MEDS: FUROSEMIDE 20 MG INJ IV SCH ×2 (10:33→22:33)
--- NOTE | 2016-05-15 12:01 | PN ---
Date/Time of Note Date/Time of Note DATE: 05/15/16 TIME: 11:54 Assessment/Plan VTE Prophylaxis VTE Prophylaxis Intervention: other Lines/Catheters IV Catheter Type (from [facility]): PICC Line Central line still needed: Yes Urinary Cath still in place: Yes (CONDOM CATHETER) Reason Cath still needed: urinary retention Assessment/Plan Assessment/Plan -Bleeding from tracheostomy site, resolving, pending ENT consult. Dr. Cecilia esquivel is aware. -Pancytopenia. Dr Gaona is following in hematology consultation. -Coagulopathy, status post vitamin K, Lovenox is held - NSTEMI, continue aspirin and Lovenox. - per Dr. Espitia is in cardiology consultation. - Atrial fibrillation with rapid ventricular response. - per Dr. Espitia in cardiology consultation. Continue metoprolol. Continue telemetry monitoring. - Bilateral pleural effusions, status post right sided thoracentesis, pending thoracentesis of the left side. - Acute hypoxic respiratory failure. on Vent now - per Dr. Anderson in pulmonology consultation. - Continue ventilatory support and bronchodilators. - Possible healthcare-acquired left lower lung pneumonia versus aspiration. - Continue antibiotics per ID. - Dr. Rojas is following an infection disease consultation. - E. coli ESBL urinary tract infection. Continue Ertapenem. - Sepsis with Ecoli ESBL bacteremia 2 UTI.resolved. - Normocytic anemia. - Dr Gaona is following in hematology consultation. - monitor H/H, bleeding - Dysphagia, with G-tube. Status post G-tube removal by patient. Status post G-tube placement by Dr. Vegas 05/10, currently DC'd by patient. - aspiration precautions - Coagulopathy, status post vitamin K, Lovenox is held. - History of chronic respiratory failure with tracheostomy. - Benign prostatic hypertrophy. - Schizoaffective disorder. Continue Seroquel and Ativan as needed for agitation. - Hypokalemia- replet K, am labs. - Hypomagnesium as 0f 05/14/2016- will do stat Mag level, replace if needed - Continue Pepcid for peptic ulcer disease prophylaxis. Further recommendations based on clinical course. Total critical care time spent 35 mins. Plan of care discussed with Dr. Colunga. Subjective 24 Hr Interval Summary Free Text/Dictation NAD, resting, seems comfortable, dw staff Constitutional: requiring IVF, requiring O2 Eyes: no complaints ENT: no complaints Respiratory: no complaints Cardiovascular: no complaints Gastrointestinal: no complaints Genitourinary: no complaints Musculoskeletal: no complaints Skin: no complaints Exam/Review of Systems Vital Signs Vitals Vital Signs Date Time Temp Pulse Resp B/P Pulse Ox O2 Delivery O2 Flow Rate FiO2 05/15/16 11:20 55 18 96 30 05/15/16 07:58 98.0 120/80 05/15/16 02:14 Mechanical Ventilator Trach Collar Intake and Output 05/14/16 05/14/16 05/15/16 14:59 22:59 06:59 Intake Total 1000 ml Balance 1000 ml Exam Constitutional: alert Psych: no complaints Eyes: EOMI, nl sclera ENMT: nl external ears & nose Respiratory: diminished breath sounds (bilateraal at bases), other (trach intact) Cardiovascular: nl pulses Gastrointestinal: non-tender, soft Musculoskeletal: muscle weakness, other Neurological: other (alert/awake, seems comfortable.) Skin: other Lymph: nontender Results Result Diagram: 05/15/16 0510 05/15/16 0510 Results 24 hrs Laboratory Tests Test 05/15/16 05:10 White Blood Count 5.1 # Red Blood Count 3.75 L Hemoglobin 10.4 L Hematocrit 32.6 L Mean Corpuscular Volume 86.9 Mean Corpuscular Hemoglobin 27.7 L Mean Corpuscular Hemoglobin Concent 31.9 L Red Cell Distribution Width 17.1 H Platelet Count 136 L Mean Platelet Volume 11.9 H Neutrophils % 63.6 Lymphocytes % 23.6 Monocytes % 10.4 Eosinophils % 1.4 Basophils % 0.8 Nucleated Red Blood Cells % 0.0 Neutrophils # 3.2 Lymphocytes # 1.2 Monocytes # 0.5 Eosinophils # 0.1 Basophils # 0.0 Nucleated Red Blood Cells # 0.0 Sodium Level 137 Potassium Level 3.4 L Chloride Level 97 Carbon Dioxide Level 35 H Anion Gap 8 Blood Urea Nitrogen 11 Creatinine 0.53 L Glucose Level 82 Calcium Level 8.9 Medications Medications Current Medications Ondansetron HCl (Zofran Inj) 4 mg Q6H PRN IV NAUSEA AND/OR VOMITING Last administered on 04/24/16 21:00; Admin Dose 4 MG; Start 04/11/16 at 22:30 Acetaminophen (Tylenol Tab) 650 mg Q6H PRN PO PAIN LEVEL 1-3 OR FEVER; Start at 22:30 Morphine Sulfate (morphine) 2 mg Q4H PRN IV PAIN LEVEL 7-10 Last administered on 05/15/16 02:11; Admin Dose 2 MG; Start 04/11/16 at 22:30 Ascorbic Acid (Vitamin C) 500 mg DAILY GTB Last administered on 05/11/16 09:13 ; Admin Dose 500 MG; Start 04/12/16 at 09:00 Bisacodyl (Dulcolax) 10 mg DAILY PRN PO CONSTIPATION; Start 04/11/16 at 22:30 Chlorhexidine Gluconate (Peridex) 15 ml BID MM Last administered on 05/15/16 10:33; Admin Dose 15 ML; Start 04/12/16 at 09:00 Ferrous Sulfate (Feosol Liquid Cup) 300 mg BID GTB Last administered on 22:09; Admin Dose 300 MG; Start 04/12/16 at 09:00 Acetaminophen/ Hydrocodone Bitart ([place] (5/325)) 1 tab Q4 PRN GTB PAIN LEVEL 6 -10; Start 04/11/16 at 22:30 Lactulose (Enulose) 20 gm DAILY GTB Last administered on 05/11/16 09:12; Admin Dose 20 GM; Start 04/12/16 at 09:00 Quetiapine Fumarate (Seroquel) 25 mg BID@17 GTB Last administered on 17:33; Admin Dose 25 MG; Start 04/12/16 at 09:00 Quetiapine Fumarate (Seroquel) 200 mg HS GTB Last administered on 05/10/16 21: 28; Admin Dose 200 MG; Start 04/12/16 at 21:00 Senna (Senokot) 1 tab QHS GTB Last administered on 05/11/16 22:09; Admin Dose 1 TAB; Start 04/12/16 at 21:00 Sodium Biphosphate/ Sodium Phosphate (Fleet Enema Pediatric) 66.6 ml DAILY PRN [place] CONSTIPATION; Start 04/11/16 at 22:30 Thiamine HCl (Vitamin B1) 100 mg DAILY GTB Last administered on 05/11/16 09:13 ; Admin Dose 100 MG; Start 04/12/16 at 09:00 Calcium Carbonate (Tums) 500 mg DAILY GTB Last administered on 05/11/16 09:13 ; Admin Dose 500 MG; Start 04/12/16 at 09:00 Multivitamins/ Minerals (Theragran-M) 1 tab DAILY PO Last administered on 09:13; Admin Dose 1 TAB; Start 04/12/16 at 09:00 Hydralazine HCl (Apresoline) 10 mg Q6H PRN IV SBP >160 Last administered on 16:38; Admin Dose 10 MG; Start 04/12/16 at 12:30 Famotidine (Pepcid) 20 mg Q12 GTB Last administered on 05/11/16 22:09; Admin Dose 20 MG; Start 04/19/16 at 21:00 Lorazepam (Ativan) 1 mg Q4 PRN IV AGITATION/ANXIETY Last administered on 05:05; Admin Dose 1 MG; Start 04/24/16 at 21:00 Clonidine (Catapres) 0.1 mg Q6H PRN PO ELEVATED BLOOD PRESSURE; Start 04/24/16 at 23:30 Metoprolol Tartrate (Lopressor) 5 mg Q4H PRN IV PRN HR>110 Hold SBP<100; Start 04/28/16 at 13:30 Metoprolol Tartrate (Lopressor) 25 mg BID PO Last administered on 04/29/16 21: 29; Admin Dose 25 MG; Start 04/29/16 at 21:00; Status Future Hold Lorazepam (Ativan) 1 mg Q6 GTB Last administered on 05/12/16 03:11; Admin Dose 1 MG; Start 05/02/16 at 00:00 Aspirin (Aspirin) 81 mg DAILY PO Last administered on 05/11/16 09:13; Admin Dose 81 MG; Start 05/02/16 at 14:30 Chlordiazepoxide (Librium) 10 mg TID PO Last administered on 05/11/16 12:03; Admin Dose 10 MG; Start 05/04/16 at 09:00 Acetaminophen (Tylenol Liquid) 650 mg Q6H PRN GTB FEVER >101; Start 05/06/16 at 11:30 Furosemide (Lasix) 20 mg BID IV Last administered on 05/15/16 10:33; Admin Dose 20 MG; Start 05/06/16 at 21:00 Benazepril HCl 10 mg 10 mg DAILY PO ; Start 05/13/16 at 09:00 Potassium Chloride/Dextrose/ Sod Cl (D5-1/2ns + KCl 20 Meq) 1,000 ml @ 70 mls/ hr [id number] IV Last administered on 05/15/16 04:44; Admin Dose 70 MLS/HR; Start 05/12/16 at 19:00 Clonidine HCl (Catapres-Tts 1 Patch) 1 patch Q7D TRANSDERM Last administered on 05/13/16 15:28; Admin Dose 1 PATCH; Start 05/13/16 at 13:00 Hydralazine HCl (Apresoline) 10 mg Q6H PRN IV SBP>170; Start 05/13/16 at 13:00 BRENT KENDRICK May 15, 2016 12:01
--- NOTE | 2016-05-15 12:14 | PN ---
Date/Time of Note Date/Time of Note DATE: 05/15/16 TIME: 12:11 Assessment/Plan VTE Prophylaxis VTE Prophylaxis Intervention: LMWH Lines/Catheters IV Catheter Type (from Nrs): PICC Line Central line still needed: Yes Urinary Cath still in place: Yes (CONDOM CATHETER) Reason Cath still needed: urinary retention Assessment/Plan Assessment/Plan 65 up male with acute hypoxic respiratory failure being admitted for sepsis secondary to ESBL bacteremia. Pt had a worsening normocytic anemia that was likely secondary to his underlying sepsis and antibiotic use. - Pt is now off antibiotic and Hg has remained stable. PT had a bleeding trach site and found with and elevated PTT to 85 and workup done. Pt was given SQ Vitamin K. He is no longer bleeding and PTT has decreased to 50's # Anemia -HG stable ~ 10 -continue to monitor Hg. If < 8 will consider transfusion. CBC is improving -s/p 5 days of IV iron. Now on po iron # Thrombocytopenia -likely secondary to sepsis and antibiotics. platelets are slowly improving, thrombocytopenia still with low normal # # Bleeding trach -resolved -Lupus anticoagulant noted to be detected with screening LA and hexagonal phase confirm, ordered due to elevated PTT, though lupus anticoagulant would predispose to clotting, not bleeding. Will re-check lupus anticoagulant once more stable. #Pneumonia Subjective 24 Hr Interval Summary Free Text/Dictation limited exam as nursing staff was helping patient. Exam/Review of Systems Vital Signs Vitals Vital Signs Date Time Temp Pulse Resp B/P Pulse Ox O2 Delivery O2 Flow Rate FiO2 05/15/16 11:59 98.6 80 18 111/76 94 05/15/16 11:20 30 05/15/16 02:14 Mechanical Ventilator Trach Collar Intake and Output 05/14/16 05/14/16 05/15/16 15:00 23:00 07:00 Intake Total 1000 ml Balance 1000 ml Exam Constitutional: distress, frail Results Result Diagram: 05/15/16 0510 05/15/16 0510 Results 24 hrs Laboratory Tests Test 05/15/16 05:10 White Blood Count 5.1 # Red Blood Count 3.75 L Hemoglobin 10.4 L Hematocrit 32.6 L Mean Corpuscular Volume 86.9 Mean Corpuscular Hemoglobin 27.7 L Mean Corpuscular Hemoglobin Concent 31.9 L Red Cell Distribution Width 17.1 H Platelet Count 136 L Mean Platelet Volume 11.9 H Neutrophils % 63.6 Lymphocytes % 23.6 Monocytes % 10.4 Eosinophils % 1.4 Basophils % 0.8 Nucleated Red Blood Cells % 0.0 Neutrophils # 3.2 Lymphocytes # 1.2 Monocytes # 0.5 Eosinophils # 0.1 Basophils # 0.0 Nucleated Red Blood Cells # 0.0 Sodium Level 137 Potassium Level 3.4 L Chloride Level 97 Carbon Dioxide Level 35 H Anion Gap 8 Blood Urea Nitrogen 11 Creatinine 0.53 L Glucose Level 82 Calcium Level 8.9 Medications Medications Current Medications Ondansetron HCl (Zofran Inj) 4 mg Q6H PRN IV NAUSEA AND/OR VOMITING Last administered on 04/24/16 21:00; Admin Dose 4 MG; Start 04/11/16 at 22:30 Acetaminophen (Tylenol Tab) 650 mg Q6H PRN PO PAIN LEVEL 1-3 OR FEVER; Start at 22:30 Morphine Sulfate (morphine) 2 mg Q4H PRN IV PAIN LEVEL 7-10 Last administered on 05/15/16 02:11; Admin Dose 2 MG; Start 04/11/16 at 22:30 Ascorbic Acid (Vitamin C) 500 mg DAILY GTB Last administered on 05/11/16 09:13 ; Admin Dose 500 MG; Start 04/12/16 at 09:00 Bisacodyl (Dulcolax) 10 mg DAILY PRN PO CONSTIPATION; Start 04/11/16 at 22:30 Chlorhexidine Gluconate (Peridex) 15 ml BID MM Last administered on 05/15/16 10:33; Admin Dose 15 ML; Start 04/12/16 at 09:00 Ferrous Sulfate (Feosol Liquid Cup) 300 mg BID GTB Last administered on 22:09; Admin Dose 300 MG; Start 04/12/16 at 09:00 Acetaminophen/ Hydrocodone Bitart ([place] (5/325)) 1 tab Q4 PRN GTB PAIN LEVEL 6 -10; Start 04/11/16 at 22:30 Lactulose (Enulose) 20 gm DAILY GTB Last administered on 05/11/16 09:12; Admin Dose 20 GM; Start 04/12/16 at 09:00 Quetiapine Fumarate (Seroquel) 25 mg BID@ GTB Last administered on 17:33; Admin Dose 25 MG; Start 04/12/16 at 09:00 Quetiapine Fumarate (Seroquel) 200 mg HS GTB Last administered on 05/10/16 21: 28; Admin Dose 200 MG; Start 04/12/16 at 21:00 Senna (Senokot) 1 tab QHS GTB Last administered on 05/11/16 22:09; Admin Dose 1 TAB; Start 04/12/16 at 21:00 Sodium Biphosphate/ Sodium Phosphate (Fleet Enema Pediatric) 66.6 ml DAILY PRN [place] CONSTIPATION; Start 04/11/16 at 22:30 Thiamine HCl (Vitamin B1) 100 mg DAILY GTB Last administered on 05/11/16 09:13 ; Admin Dose 100 MG; Start 04/12/16 at 09:00 Calcium Carbonate (Tums) 500 mg DAILY GTB Last administered on 05/11/16 09:13 ; Admin Dose 500 MG; Start 04/12/16 at 09:00 Multivitamins/ Minerals (Theragran-M) 1 tab DAILY PO Last administered on 09:13; Admin Dose 1 TAB; Start 04/12/16 at 09:00 Hydralazine HCl (Apresoline) 10 mg Q6H PRN IV SBP >160 Last administered on 16:38; Admin Dose 10 MG; Start 04/12/16 at 12:30 Famotidine (Pepcid) 20 mg Q12 GTB Last administered on 05/11/16 22:09; Admin Dose 20 MG; Start 04/19/16 at 21:00 Lorazepam (Ativan) 1 mg Q4 PRN IV AGITATION/ANXIETY Last administered on 05:05; Admin Dose 1 MG; Start 04/24/16 at 21:00 Clonidine (Catapres) 0.1 mg Q6H PRN PO ELEVATED BLOOD PRESSURE; Start 04/24/16 at 23:30 Metoprolol Tartrate (Lopressor) 5 mg Q4H PRN IV PRN HR>110 Hold SBP<100; Start 04/28/16 at 13:30 Metoprolol Tartrate (Lopressor) 25 mg BID PO Last administered on 04/29/16 21: 29; Admin Dose 25 MG; Start 04/29/16 at 21:00; Status Future Hold Lorazepam (Ativan) 1 mg Q6 GTB Last administered on 05/12/16 03:11; Admin Dose 1 MG; Start 05/02/16 at 00:00 Aspirin (Aspirin) 81 mg DAILY PO Last administered on 05/11/16 09:13; Admin Dose 81 MG; Start 05/02/16 at 14:30 Chlordiazepoxide (Librium) 10 mg TID PO Last administered on 05/11/16 12:03; Admin Dose 10 MG; Start 05/04/16 at 09:00 Acetaminophen (Tylenol Liquid) 650 mg Q6H PRN GTB FEVER >101; Start 05/06/16 at 11:30 Furosemide (Lasix) 20 mg BID IV Last administered on 05/15/16 10:33; Admin Dose 20 MG; Start 05/06/16 at 21:00 Benazepril HCl 10 mg 10 mg DAILY PO ; Start 05/13/16 at 09:00 Potassium Chloride/Dextrose/ Sod Cl (D5-1/2ns + KCl 20 Meq) 1,000 ml @ 70 mls/ hr [id number] IV Last administered on 05/15/16 04:44; Admin Dose 70 MLS/HR; Start 05/12/16 at 19:00 Clonidine HCl (Catapres-Tts 1 Patch) 1 patch Q7D TRANSDERM Last administered on 05/13/16 15:28; Admin Dose 1 PATCH; Start 05/13/16 at 13:00 Hydralazine HCl 10 mg 10 mg Q6H PRN IV SBP>170; Start 05/13/16 at 13:00 Potassium Chloride/Sodium Chloride (KCl/NS) 110 ml @ 55 mls/hr ONCE ONCE IVPB ; Start 05/15/16 at 14:00; Stop 05/15/16 at 15:59 BAMBI MOORE MD May 15, 2016 12:14
[2016-05-15] MEDS ORDERED: POTASSIUM CHLORIDE 20 MEQ in SOD CHLORIDE 0.9% 100 ML IVPB ONE (14:00)
[2016-05-15] MEDS ORDERED: MAGNESIUM SULFATE 1 GM/D5W 100 ML IVPB ONE (15:30)
--- NOTE | 2016-05-15 15:58 | CONS ---
Date/Time of Note Date/Time of Note DATE: 05/15/16 TIME: 15:57 Consultation Date/Type/Reason Admit Date/Time Apr 11, 2016 at 22:13 Initial Consult Date 04/12/16 Type of Consultation: Pulmonary Referring Provider: ANNETTA AGUILAR MD 24 HR Interval Summary Free Text/Dictation Patient condition remains stable. 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 Patient has remained hemodynamically stable. General exam; elderly male, on ventilator via tracheostomy currently in no distress. Awake. Exam/Review of Systems Vital Signs Vitals Vital Signs Date Time Temp Pulse Resp B/P Pulse Ox O2 Delivery O2 Flow Rate FiO2 05/15/16 15:52 96.3 60 18 124/82 97 05/15/16 15:00 30 05/15/16 02:14 Mechanical Ventilator Trach Collar Intake and Output 05/14/16 05/14/16 05/15/16 15:00 23:00 07:00 Intake Total 1000 ml Balance 1000 ml Exam HEENT exam is; supple neck, no JVD. No lymphadenopathy. Midline trachea. No thyromegaly. Tracheostomy in place. Patient upper jaw is edentulous. Chest examination; diminished but clear breath sounds bilaterally. S1-S2 audible, no murmurs. Regular rhythm. Abdomen examination; soft, nondistended. Dressing applied over prior G-tube site. Bowel sounds audible. Extremity exam is; no peripheral edema. [employer] examination; patient has stable paraplegia. Results Result Diagram: 05/15/16 0510 05/15/16 0510 Results 24 hrs Laboratory Tests Test 05/15/16 05:10 White Blood Count 5.1 # Red Blood Count 3.75 L Hemoglobin 10.4 L Hematocrit 32.6 L Mean Corpuscular Volume 86.9 Mean Corpuscular Hemoglobin 27.7 L Mean Corpuscular Hemoglobin Concent 31.9 L Red Cell Distribution Width 17.1 H Platelet Count 136 L Mean Platelet Volume 11.9 H Neutrophils % 63.6 Lymphocytes % 23.6 Monocytes % 10.4 Eosinophils % 1.4 Basophils % 0.8 Nucleated Red Blood Cells % 0.0 Neutrophils # 3.2 Lymphocytes # 1.2 Monocytes # 0.5 Eosinophils # 0.1 Basophils # 0.0 Nucleated Red Blood Cells # 0.0 Sodium Level 137 Potassium Level 3.4 L Chloride Level 97 Carbon Dioxide Level 35 H Anion Gap 8 Blood Urea Nitrogen 11 Creatinine 0.53 L Glucose Level 82 Calcium Level 8.9 Magnesium Level 1.5 L Medications Medications Current Medications Ondansetron HCl (Zofran Inj) 4 mg Q6H PRN IV NAUSEA AND/OR VOMITING Last administered on 04/24/16 21:00; Admin Dose 4 MG; Start 04/11/16 at 22:30 Acetaminophen (Tylenol Tab) 650 mg Q6H PRN PO PAIN LEVEL 1-3 OR FEVER; Start at 22:30 Morphine Sulfate (morphine) 2 mg Q4H PRN IV PAIN LEVEL 7-10 Last administered on 05/15/16 02:11; Admin Dose 2 MG; Start 04/11/16 at 22:30 Ascorbic Acid (Vitamin C) 500 mg DAILY GTB Last administered on 05/11/16 09:13 ; Admin Dose 500 MG; Start 04/12/16 at 09:00 Bisacodyl (Dulcolax) 10 mg DAILY PRN PO CONSTIPATION; Start 04/11/16 at 22:30 Chlorhexidine Gluconate (Peridex) 15 ml BID MM Last administered on 05/15/16 10:33; Admin Dose 15 ML; Start 04/12/16 at 09:00 Ferrous Sulfate (Feosol Liquid Cup) 300 mg BID GTB Last administered on 22:09; Admin Dose 300 MG; Start 04/12/16 at 09:00 Acetaminophen/ Hydrocodone Bitart ([place] (5/325)) 1 tab Q4 PRN GTB PAIN LEVEL 6 -10; Start 04/11/16 at 22:30 Lactulose (Enulose) 20 gm DAILY GTB Last administered on 05/11/16 09:12; Admin Dose 20 GM; Start 04/12/16 at 09:00 Quetiapine Fumarate (Seroquel) 25 mg BID@ GTB Last administered on 17:33; Admin Dose 25 MG; Start 04/12/16 at 09:00 Quetiapine Fumarate (Seroquel) 200 mg HS GTB Last administered on 05/10/16 21: 28; Admin Dose 200 MG; Start 04/12/16 at 21:00 Senna (Senokot) 1 tab QHS GTB Last administered on 05/11/16 22:09; Admin Dose 1 TAB; Start 04/12/16 at 21:00 Sodium Biphosphate/ Sodium Phosphate (Fleet Enema Pediatric) 66.6 ml DAILY PRN [place] CONSTIPATION; Start 04/11/16 at 22:30 Thiamine HCl (Vitamin B1) 100 mg DAILY GTB Last administered on 05/11/16 09:13 ; Admin Dose 100 MG; Start 04/12/16 at 09:00 Calcium Carbonate (Tums) 500 mg DAILY GTB Last administered on 05/11/16 09:13 ; Admin Dose 500 MG; Start 04/12/16 at 09:00 Multivitamins/ Minerals (Theragran-M) 1 tab DAILY PO Last administered on 09:13; Admin Dose 1 TAB; Start 04/12/16 at 09:00 Hydralazine HCl (Apresoline) 10 mg Q6H PRN IV SBP >160 Last administered on 16:38; Admin Dose 10 MG; Start 04/12/16 at 12:30 Famotidine (Pepcid) 20 mg Q12 GTB Last administered on 05/11/16 22:09; Admin Dose 20 MG; Start 04/19/16 at 21:00 Lorazepam (Ativan) 1 mg Q4 PRN IV AGITATION/ANXIETY Last administered on 05:05; Admin Dose 1 MG; Start 04/24/16 at 21:00 Clonidine (Catapres) 0.1 mg Q6H PRN PO ELEVATED BLOOD PRESSURE; Start 04/24/16 at 23:30 Metoprolol Tartrate (Lopressor) 5 mg Q4H PRN IV PRN HR>110 Hold SBP<100; Start 04/28/16 at 13:30 Metoprolol Tartrate (Lopressor) 25 mg BID PO Last administered on 04/29/16 21: 29; Admin Dose 25 MG; Start 04/29/16 at 21:00; Status Future Hold Lorazepam (Ativan) 1 mg Q6 GTB Last administered on 05/12/16 03:11; Admin Dose 1 MG; Start 05/02/16 at 00:00 Aspirin (Aspirin) 81 mg DAILY PO Last administered on 05/11/16 09:13; Admin Dose 81 MG; Start 05/02/16 at 14:30 Chlordiazepoxide (Librium) 10 mg TID PO Last administered on 05/11/16 12:03; Admin Dose 10 MG; Start 05/04/16 at 09:00 Acetaminophen (Tylenol Liquid) 650 mg Q6H PRN GTB FEVER >101; Start 05/06/16 at 11:30 Furosemide (Lasix) 20 mg BID IV Last administered on 05/15/16 10:33; Admin Dose 20 MG; Start 05/06/16 at 21:00 Benazepril HCl 10 mg 10 mg DAILY PO ; Start 05/13/16 at 09:00 Potassium Chloride/Dextrose/ Sod Cl (D5-1/2ns + KCl 20 Meq) 1,000 ml @ 70 mls/ hr [id number] IV Last administered on 05/15/16 14:26; Admin Dose 70 MLS/HR; Start 05/12/16 at 19:00 Clonidine HCl (Catapres-Tts 1 Patch) 1 patch Q7D TRANSDERM Last administered on 05/13/16 15:28; Admin Dose 1 PATCH; Start 05/13/16 at 13:00 Hydralazine HCl 10 mg 10 mg Q6H PRN IV SBP>170; Start 05/13/16 at 13:00 Potassium Chloride 20 meq/ Sodium Chloride 110 ml @ 55 mls/hr ONCE ONCE IVPB Last administered on 05/15/16 14:34; Admin Dose 55 MLS/HR; Start 05/15/16 at 14 :00; Stop 05/15/16 at 15:59 Magnesium Sulfate/ Dextrose (Magnesium Sulfate 1 Gm/D5W) 100 ml @ 100 mls/hr ONCE ONCE IVPB ; Start 05/15/16 at 15:30; Stop 05/15/16 at 16:29 KATHERYN LAWTON May 15, 2016 15:58
--- NOTE | 2016-05-15 18:03 | PN ---
DATE: 05/08/2016 CARDIOLOGY FOLLOWUP SUBJECTIVE: On questioning, the patient has no complaints. Sitting comfortably in his bed. PHYSICAL EXAMINATION: GENERAL: The patient has a tracheostomy tube in place and is on the ventilator, but otherwise alert , oriented and comfortable. VITAL SIGNS: Blood pressure is 111/76. He is afebrile. Heart rate is 56. HEENT: Head is normocephalic. NECK: There is a tracheostomy in place. CHEST: Bilaterally symmetrical and nontender. HEART: PMI localized in the fourth intercostal space. S1 and S2 are regular. A I to II/ systoli c murmur is heard at the apex. LUNGS: Clear to percussion and auscultation anteriorly and in the intra-axillary regions. Posterio r chest could not be auscultated. ABDOMEN: Soft and nontender belly without any organomegaly. Bowel sounds present. No palpab le. EXTREMITIES: No pedal edema. No clubbing, no cyanosis. LABORATORY DATA: So far reveals that his white count is slightly low at 5.1, hemoglobin is better t duong yesterday at 10.4, slightly increased. Platelet count is slightly low at 136,000. Last potassi um was 3.4 earlier today. Otherwise, the rest of the chemistries are essentially unremarkable. IMPRESSION: 1. Status post wide complex tachycardia. The patient is now in sinus rhythm. 2. Congestive heart failure by chest x-ray, which is again better clinically, which was apparently diastolic with acute on chronic feature. 3. High blood pressure is under control at this stage. 4. Respiratory failure. 5. Slightly hypokalemia. 6. Non-ST elevation myocardial infarction. 7. Bradycardia, which is improved. RECOMMENDATIONS: We will continue the same treatment and the patient has already been given some po tassium supplement for the hypokalemia. We will continue the same treatment cardiologically. Dictated By: LORENA ANNE MD, RA/DAVID Conf#: [id number] DID#: [id number]
[2016-05-15] MEDS: QUETIAPINE 100 MG TAB GTB SCH (21:00)
[2016-05-15] MEDS: SENNA TAB GTB SCH (21:00)
[2016-05-16] VITALS (27 sets, daily range): BP systolic 117–158; BP diastolic 70–95; PULSE 63–101; RESP 12–23
[2016-05-16] MEDS: LORAZEPAM 2 MG INJ IV PRN ×3 (02:32→20:02)
[2016-05-16] MEDS: ALBUTEROL HFA 8 GM INHALER INH SCH ×4 (03:22→20:56)
[2016-05-16] MEDS: IPRATROPIUM (HFA) 12.9 GM INHALER INH SCH ×4 (03:22→20:55)
[2016-05-16] MEDS: LORAZEPAM 1 MG TAB GTB SCH ×3 (06:00→18:00)
[2016-05-16 07:09] LABS: ADD SCAN DIFF NO
[2016-05-16 07:18] LABS: BASOPHILS % 0.6 % (0.0-2.0); EOSINOPHILS # 0.1 10^3/ul (0.0-0.5); EOSINOPHILS % 1.2 % (0.0-7.0); HEMATOCRIT 33.1 % (42.0-52.0); HEMOGLOBIN 10.4 g/dl (14.0-18.0); LYMPHOCYTES # 0.9 10^3/ul (0.8-2.9); LYMPHOCYTES % 13.2 % (15.0-51.0); MEAN CORPUSCULAR HEMOGLOBIN 27.4 pg (29.0-33.0); MEAN CORPUSCULAR HGB CONC 31.4 g/dl (32.0-37.0); MEAN CORPUSCULAR VOLUME 87.3 fl (82.0-101.0); MEAN PLATELET VOLUME 12.5 fl (7.4-10.4); MONOCYTE # 0.5 10^3/ul (0.3-0.9); MONOCYTES % 7.4 % (0.0-11.0); NEUTROPHILS % 77.4 % (39.0-77.0); PLATELET COUNT 154 10^3/UL (140-415); RED BLOOD COUNT 3.79 10^6/ul (4.70-6.10); RED CELL DISTRIBUTION WIDTH 17.2 % (11.5-14.5); WHITE BLOOD COUNT 6.5 10^3/ul (4.8-10.8)
[2016-05-16 07:35] LABS: POTASSIUM 3.7 mmol/L (3.5-5.1)
[2016-05-16 07:38] LABS: CALCIUM 8.8 mg/dl (8.4-10.2); CREATININE 0.49 mg/dl (0.61-1.24)
[2016-05-16] MEDS: D5W-0.45 NACL + KCL 20 MEQ 1,000 ML IV SCH ×2 (08:48→13:02)
[2016-05-16] MEDS: ASPIRIN 81 MG TAB PO SCH (09:00)
[2016-05-16] MEDS: CHLORDIAZEPOXIDE 5 MG CAP PO SCH ×3 (09:00→21:00)
[2016-05-16] MEDS: LACTULOSE 30ML CUP GTB SCH (09:00)
[2016-05-16] MEDS: FERROUS SULFATE 60 MG/ML 5ML CUP GTB SCH ×2 (09:00→21:00)
[2016-05-16] MEDS: THIAMINE 100 MG TAB GTB SCH (09:00)
[2016-05-16] MEDS: BENAZEPRIL 10 MG TAB PO SCH (09:00)
[2016-05-16] MEDS: MULTIVITAMINS/MINERALS TAB PO SCH (09:00)
[2016-05-16] MEDS: ASCORBIC ACID 500 MG TAB GTB SCH (09:00)
[2016-05-16] MEDS: FAMOTIDINE 20 MG TAB GTB SCH ×2 (09:00→21:00)
[2016-05-16] MEDS: CALCIUM CARBONATE 500 MG CHEW TAB GTB SCH (09:00)
[2016-05-16] MEDS: QUETIAPINE 25 MG TAB GTB SCH ×2 (09:00→17:00)
[2016-05-16] MEDS: CHLORHEXIDINE GLUCONATE 15 ML UD CUP MM SCH ×2 (10:09→21:42)
[2016-05-16] MEDS: FUROSEMIDE 20 MG INJ IV SCH ×2 (10:10→21:49)
--- NOTE | 2016-05-16 11:19 | CONS ---
Date/Time of Note Date/Time of Note DATE: 05/16/16 TIME: 11:17 Assessment/Plan Assessment/Plan Additional Assessment/Plan Ventilator settings; AC of 12, tidal volume 450, PEEP of 5, 30% FiO2. Assessment recommendations; 1. Patient admitted for severe pneumonia did well but then had likely bilateral aspiration pneumonia with again marked clinical and radiological improvement. Patient off antibiotics now. 2. Hypercapnic respiratory failure not requiring invasive mechanical ventilation. 3. History of paraplegia. 4. History of alcoholic encephalopathy. Continue current treatment. Patient can be discharged to the [facility]. Consultation Date/Type/Reason Admit Date/Time Apr 11, 2016 at 22:13 Initial Consult Date 04/12/16 Type of Consultation: Pulmonary Referring Provider: ANNETTA AGULIAR MD 24 HR Interval Summary Free Text/Dictation Patient condition is stable. Remains awake and alert. Has remained hemodynamically stable. Exam; elderly male, on ventilator via tracheostomy currently in no distress. Exam/Review of Systems Vital Signs Vitals Vital Signs Date Time Temp Pulse Resp B/P Pulse Ox O2 Delivery O2 Flow Rate FiO2 05/16/16 09:15 76 22 96 30 05/16/16 08:05 97.8 156/80 05/16/16 06:00 Mechanical Ventilator Intake and Output 05/15/16 05/15/16 05/16/16 15:00 23:00 07:00 Intake Total 1000 ml 490 ml Output Total 900 ml Balance 1000 ml -410 ml Exam HEENT exam; supple neck, no JVD. No lymphadenopathy. Midline trachea. No thyromegaly. Tracheostomy in place. Patient upper jaw is edentulous. Pupils are midsize and reactive to light. Chest examination; clear to auscultation. S1-S2 audible, no murmurs. Regular rhythm. Abdomen examination; soft, no organomegaly. Bowel sounds audible. Nondistended. There is a dressing applied with the previous G-tube site. Extremity exam; no peripheral edema. METAL CUTTER examination; patient is awake alert has stable paraplegia. Results Result Diagram: 05/16/16 0550 05/16/16 0550 Results 24 hrs Laboratory Tests Test 05/16/16 05:50 White Blood Count 6.5 # Red Blood Count 3.79 L Hemoglobin 10.4 L Hematocrit 33.1 L Mean Corpuscular Volume 87.3 Mean Corpuscular Hemoglobin 27.4 L Mean Corpuscular Hemoglobin Concent 31.4 L Red Cell Distribution Width 17.2 H Platelet Count 154 Mean Platelet Volume 12.5 H Neutrophils % 77.4 H Lymphocytes % 13.2 L Monocytes % 7.4 Eosinophils % 1.2 Basophils % 0.6 Nucleated Red Blood Cells % 0.0 Neutrophils # 5.0 Lymphocytes # 0.9 Monocytes # 0.5 Eosinophils # 0.1 Basophils # 0.0 Nucleated Red Blood Cells # 0.0 Sodium Level 137 Potassium Level 3.7 Chloride Level 97 Carbon Dioxide Level 33 H Anion Gap 11 Blood Urea Nitrogen 9 Creatinine 0.49 L Glucose Level 86 Calcium Level 8.8 Magnesium Level 1.6 L Medications Medications Current Medications Ondansetron HCl (Zofran Inj) 4 mg Q6H PRN IV NAUSEA AND/OR VOMITING Last administered on 04/24/16 21:00; Admin Dose 4 MG; Start 04/11/16 at 22:30 Acetaminophen (Tylenol Tab) 650 mg Q6H PRN PO PAIN LEVEL 1-3 OR FEVER; Start at 22:30 Morphine Sulfate (morphine) 2 mg Q4H PRN IV PAIN LEVEL 7-10 Last administered on 05/15/16 02:11; Admin Dose 2 MG; Start 04/11/16 at 22:30 Ascorbic Acid (Vitamin C) 500 mg DAILY GTB Last administered on 05/11/16 09:13 ; Admin Dose 500 MG; Start 04/12/16 at 09:00 Bisacodyl (Dulcolax) 10 mg DAILY PRN PO CONSTIPATION; Start 04/11/16 at 22:30 Chlorhexidine Gluconate (Peridex) 15 ml BID MM Last administered on 05/16/16 10:09; Admin Dose 15 ML; Start 04/12/16 at 09:00 Ferrous Sulfate (Feosol Liquid Cup) 300 mg BID GTB Last administered on 22:09; Admin Dose 300 MG; Start 04/12/16 at 09:00 Acetaminophen/ Hydrocodone Bitart ([place] (5/325)) 1 tab Q4 PRN GTB PAIN LEVEL 6 -10; Start 04/11/16 at 22:30 Lactulose (Enulose) 20 gm DAILY GTB Last administered on 05/11/16 09:12; Admin Dose 20 GM; Start 04/12/16 at 09:00 Quetiapine Fumarate (Seroquel) 25 mg BID@ GTB Last administered on 17:33; Admin Dose 25 MG; Start 04/12/16 at 09:00 Quetiapine Fumarate (Seroquel) 200 mg HS GTB Last administered on 05/10/16 21: 28; Admin Dose 200 MG; Start 04/12/16 at 21:00 Senna (Senokot) 1 tab QHS GTB Last administered on 05/11/16 22:09; Admin Dose 1 TAB; Start 04/12/16 at 21:00 Sodium Biphosphate/ Sodium Phosphate (Fleet Enema Pediatric) 66.6 ml DAILY PRN [place] CONSTIPATION; Start 04/11/16 at 22:30 Thiamine HCl (Vitamin B1) 100 mg DAILY GTB Last administered on 05/11/16 09:13 ; Admin Dose 100 MG; Start 04/12/16 at 09:00 Calcium Carbonate (Tums) 500 mg DAILY GTB Last administered on 05/11/16 09:13 ; Admin Dose 500 MG; Start 04/12/16 at 09:00 Multivitamins/ Minerals (Theragran-M) 1 tab DAILY PO Last administered on 09:13; Admin Dose 1 TAB; Start 04/12/16 at 09:00 Hydralazine HCl (Apresoline) 10 mg Q6H PRN IV SBP >160 Last administered on 16:38; Admin Dose 10 MG; Start 04/12/16 at 12:30 Famotidine (Pepcid) 20 mg Q12 GTB Last administered on 05/11/16 22:09; Admin Dose 20 MG; Start 04/19/16 at 21:00 Lorazepam (Ativan) 1 mg Q4 PRN IV AGITATION/ANXIETY Last administered on 02:32; Admin Dose 1 MG; Start 04/24/16 at 21:00 Clonidine (Catapres) 0.1 mg Q6H PRN PO ELEVATED BLOOD PRESSURE; Start 04/24/16 at 23:30 Metoprolol Tartrate (Lopressor) 5 mg Q4H PRN IV PRN HR>110 Hold SBP<100; Start 04/28/16 at 13:30 Metoprolol Tartrate (Lopressor) 25 mg BID PO Last administered on 04/29/16 21: 29; Admin Dose 25 MG; Start 04/29/16 at 21:00; Status Future Hold Lorazepam (Ativan) 1 mg Q6 GTB Last administered on 05/12/16 03:11; Admin Dose 1 MG; Start 05/02/16 at 00:00 Aspirin (Aspirin) 81 mg DAILY PO Last administered on 05/11/16 09:13; Admin Dose 81 MG; Start 05/02/16 at 14:30 Chlordiazepoxide (Librium) 10 mg TID PO Last administered on 05/11/16 12:03; Admin Dose 10 MG; Start 05/04/16 at 09:00 Acetaminophen (Tylenol Liquid) 650 mg Q6H PRN GTB FEVER >101; Start 05/06/16 at 11:30 Furosemide (Lasix) 20 mg BID IV Last administered on 05/16/16 10:10; Admin Dose 20 MG; Start 05/06/16 at 21:00 Benazepril HCl 10 mg 10 mg DAILY PO ; Start 05/13/16 at 09:00 Potassium Chloride/Dextrose/ Sod Cl (D5-1/2ns + KCl 20 Meq) 1,000 ml @ 70 mls/ hr [id number] IV Last administered on 05/15/16 14:26; Admin Dose 70 MLS/HR; Start 05/12/16 at 19:00 Clonidine HCl (Catapres-Tts 1 Patch) 1 patch Q7D TRANSDERM Last administered on 05/13/16 15:28; Admin Dose 1 PATCH; Start 05/13/16 at 13:00 Hydralazine HCl (Apresoline) 10 mg Q6H PRN IV SBP>170; Start 05/13/16 at 13:00 KATHERYN LAWTON May 16, 2016 11:19
--- NOTE | 2016-05-16 12:54 | PN ---
Date/Time of Note Date/Time of Note DATE: 05/16/16 TIME: 12:52 Assessment/Plan VTE Prophylaxis VTE Prophylaxis Intervention: ambulation Lines/Catheters IV Catheter Type (from Nrs): PICC Line Central line still needed: Yes Urinary Cath still in place: No (Condom catheter) Assessment/Plan Assessment/Plan 65 up male with acute hypoxic respiratory failure being admitted for sepsis secondary to ESBL bacteremia. Pt had a worsening normocytic anemia that was likely secondary to his underlying sepsis and antibiotic use. - Pt is now off antibiotic and Hg has remained stable. PT had a bleeding trach site and found with an elevated PTT to 85 and workup done. Pt was given SQ Vitamin K. He is no longer bleeding and PTT has decreased to 50's but has lupus anticoagulant on test results, on asa. # Anemia -HG stable ~ 10.4 -continue to monitor Hg. If < 8 will consider transfusion. CBC is improving -s/p 5 days of IV iron. Now on po iron # Thrombocytopenia -likely secondary to sepsis and antibiotics. platelets are slowly improving, thrombocytopenia still with low normal # 154 today,. # Bleeding trach -resolved -Lupus anticoagulant noted to be detected with screening LA and hexagonal phase confirm, ordered due to elevated PTT, though lupus anticoagulant would predispose to clotting, not bleeding. Will re-check lupus anticoagulant once more stable. #Pneumonia Subjective 24 Hr Interval Summary Subjective hx not possible: pt critical Psychological: anxiety Exam/Review of Systems Vital Signs Vitals Vital Signs Date Time Temp Pulse Resp B/P Pulse Ox O2 Delivery O2 Flow Rate FiO2 05/16/16 11:05 63 12 99 30 05/16/16 08:05 97.8 156/80 05/16/16 06:00 Mechanical Ventilator Intake and Output 05/15/16 05/15/16 05/16/16 15:00 23:00 07:00 Intake Total 1000 ml 490 ml Output Total 900 ml Balance 1000 ml -410 ml Exam Constitutional: frail, non-verbal Psych: anxiety Respiratory: normal air movement Gastrointestinal: soft Results Result Diagram: 05/16/16 0550 05/16/16 0550 Results 24 hrs Laboratory Tests Test 05/16/16 05:50 White Blood Count 6.5 # Red Blood Count 3.79 L Hemoglobin 10.4 L Hematocrit 33.1 L Mean Corpuscular Volume 87.3 Mean Corpuscular Hemoglobin 27.4 L Mean Corpuscular Hemoglobin Concent 31.4 L Red Cell Distribution Width 17.2 H Platelet Count 154 Mean Platelet Volume 12.5 H Neutrophils % 77.4 H Lymphocytes % 13.2 L Monocytes % 7.4 Eosinophils % 1.2 Basophils % 0.6 Nucleated Red Blood Cells % 0.0 Neutrophils # 5.0 Lymphocytes # 0.9 Monocytes # 0.5 Eosinophils # 0.1 Basophils # 0.0 Nucleated Red Blood Cells # 0.0 Sodium Level 137 Potassium Level 3.7 Chloride Level 97 Carbon Dioxide Level 33 H Anion Gap 11 Blood Urea Nitrogen 9 Creatinine 0.49 L Glucose Level 86 Calcium Level 8.8 Magnesium Level 1.6 L Medications Medications Current Medications Ondansetron HCl (Zofran Inj) 4 mg Q6H PRN IV NAUSEA AND/OR VOMITING Last administered on 04/24/16 21:00; Admin Dose 4 MG; Start 04/11/16 at 22:30 Acetaminophen (Tylenol Tab) 650 mg Q6H PRN PO PAIN LEVEL 1-3 OR FEVER; Start at 22:30 Morphine Sulfate (morphine) 2 mg Q4H PRN IV PAIN LEVEL 7-10 Last administered on 05/15/16 02:11; Admin Dose 2 MG; Start 04/11/16 at 22:30 Ascorbic Acid (Vitamin C) 500 mg DAILY GTB Last administered on 05/11/16 09:13 ; Admin Dose 500 MG; Start 04/12/16 at 09:00 Bisacodyl (Dulcolax) 10 mg DAILY PRN PO CONSTIPATION; Start 04/11/16 at 22:30 Chlorhexidine Gluconate (Peridex) 15 ml BID MM Last administered on 05/16/16 10:09; Admin Dose 15 ML; Start 04/12/16 at 09:00 Ferrous Sulfate (Feosol Liquid Cup) 300 mg BID GTB Last administered on 22:09; Admin Dose 300 MG; Start 04/12/16 at 09:00 Acetaminophen/ Hydrocodone Bitart ([place] (5/325)) 1 tab Q4 PRN GTB PAIN LEVEL 6 -10; Start 04/11/16 at 22:30 Lactulose (Enulose) 20 gm DAILY GTB Last administered on 05/11/16 09:12; Admin Dose 20 GM; Start 04/12/16 at 09:00 Quetiapine Fumarate (Seroquel) 25 mg BID@ GTB Last administered on 17:33; Admin Dose 25 MG; Start 04/12/16 at 09:00 Quetiapine Fumarate (Seroquel) 200 mg HS GTB Last administered on 05/10/16 21: 28; Admin Dose 200 MG; Start 04/12/16 at 21:00 Senna (Senokot) 1 tab QHS GTB Last administered on 05/11/16 22:09; Admin Dose 1 TAB; Start 04/12/16 at 21:00 Sodium Biphosphate/ Sodium Phosphate (Fleet Enema Pediatric) 66.6 ml DAILY PRN [place] CONSTIPATION; Start 04/11/16 at 22:30 Thiamine HCl (Vitamin B1) 100 mg DAILY GTB Last administered on 05/11/16 09:13 ; Admin Dose 100 MG; Start 04/12/16 at 09:00 Calcium Carbonate (Tums) 500 mg DAILY GTB Last administered on 05/11/16 09:13 ; Admin Dose 500 MG; Start 04/12/16 at 09:00 Multivitamins/ Minerals (Theragran-M) 1 tab DAILY PO Last administered on 09:13; Admin Dose 1 TAB; Start 04/12/16 at 09:00 Hydralazine HCl (Apresoline) 10 mg Q6H PRN IV SBP >160 Last administered on 16:38; Admin Dose 10 MG; Start 04/12/16 at 12:30 Famotidine (Pepcid) 20 mg Q12 GTB Last administered on 05/11/16 22:09; Admin Dose 20 MG; Start 04/19/16 at 21:00 Lorazepam (Ativan) 1 mg Q4 PRN IV AGITATION/ANXIETY Last administered on 12:45; Admin Dose 1 MG; Start 04/24/16 at 21:00 Clonidine (Catapres) 0.1 mg Q6H PRN PO ELEVATED BLOOD PRESSURE; Start 04/24/16 at 23:30 Metoprolol Tartrate (Lopressor) 5 mg Q4H PRN IV PRN HR>110 Hold SBP<100; Start 04/28/16 at 13:30 Metoprolol Tartrate (Lopressor) 25 mg BID PO Last administered on 04/29/16 21: 29; Admin Dose 25 MG; Start 04/29/16 at 21:00; Status Future Hold Lorazepam (Ativan) 1 mg Q6 GTB Last administered on 05/12/16 03:11; Admin Dose 1 MG; Start 05/02/16 at 00:00 Aspirin (Aspirin) 81 mg DAILY PO Last administered on 05/11/16 09:13; Admin Dose 81 MG; Start 05/02/16 at 14:30 Chlordiazepoxide (Librium) 10 mg TID PO Last administered on 05/11/16 12:03; Admin Dose 10 MG; Start 05/04/16 at 09:00 Acetaminophen (Tylenol Liquid) 650 mg Q6H PRN GTB FEVER >101; Start 05/06/16 at 11:30 Furosemide (Lasix) 20 mg BID IV Last administered on 05/16/16 10:10; Admin Dose 20 MG; Start 05/06/16 at 21:00 Benazepril HCl 10 mg 10 mg DAILY PO ; Start 05/13/16 at 09:00 Potassium Chloride/Dextrose/ Sod Cl (D5-1/2ns + KCl 20 Meq) 1,000 ml @ 70 mls/ hr [id number] IV Last administered on 05/15/16 14:26; Admin Dose 70 MLS/HR; Start 05/12/16 at 19:00 Clonidine HCl (Catapres-Tts 1 Patch) 1 patch Q7D TRANSDERM Last administered on 05/13/16 15:28; Admin Dose 1 PATCH; Start 05/13/16 at 13:00 Hydralazine HCl (Apresoline) 10 mg Q6H PRN IV SBP>170; Start 05/13/16 at 13:00 BAMBI MOORE MD May 16, 2016 12:54
[2016-05-16] MEDS: morphine 2 MG INJ IV PRN ×2 (13:13→23:00)
--- NOTE | 2016-05-16 13:38 | PN ---
Date/Time of Note Date/Time of Note DATE: 05/16/16 TIME: 13:37 Assessment/Plan VTE Prophylaxis VTE Prophylaxis Intervention: other Lines/Catheters IV Catheter Type (from [facility]): PICC Line Central line still needed: Yes Urinary Cath still in place: No (Condom catheter) Assessment/Plan Assessment/Plan - Bleeding from tracheostomy site, resolved. - Pancytopenia. Dr Gaona is following in hematology consultation. -Coagulopathy, status post vitamin K, Lovenox is held - NSTEMI, continue aspirin and Lovenox. Dr. Espitia is following patient in cardiology consultation. - Atrial fibrillation with rapid ventricular response. Continue metoprolol. Continue telemetry monitoring. - Bilateral pleural effusions, status post right sided thoracentesis. - Acute hypoxic respiratory failure. Dr. Anderson is following in pulmonology consultation. Continue ventilatory support and bronchodilators. - Possible healthcare-acquired left lower lung pneumonia versus aspiration. Continue antibiotics per ID. Dr. Rojas is following an infection disease consultation. - E. coli ESBL urinary tract infection, status post treatment. - Sepsis with Ecoli ESBL bacteremia 2 UTI, resolved. - Dysphagia, with G-tube. Status post G-tube removal by patient. Status post G-tube placement by Dr. Marcus 05/10, currently DC'd by patient. - History of chronic respiratory failure with tracheostomy. - Benign prostatic hypertrophy. - Schizoaffective disorder. Continue Seroquel and Ativan as needed for agitation. - Hypokalemia- replet K, am labs. - Hypomagnesium as 0f 05/14/2016- will do stat Mag level, replace if needed Continue Pepcid for peptic ulcer disease prophylaxis. Further recommendations based on clinical course. Plan of care discussed with Dr. Colunga. Subjective 24 Hr Interval Summary Free Text/Dictation nad, alert, eyes open, dw staff. afebrile, no obvious bleeding around trach noted. Constitutional: requiring IVF, requiring O2 Exam/Review of Systems Vital Signs Vitals Vital Signs Date Time Temp Pulse Resp B/P Pulse Ox O2 Delivery O2 Flow Rate FiO2 05/16/16 12:00 101 05/16/16 11:05 12 99 30 05/16/16 08:05 97.8 156/80 05/16/16 06:00 Mechanical Ventilator Intake and Output 05/15/16 05/15/16 05/16/16 15:00 23:00 07:00 Intake Total 1000 ml 490 ml Output Total 900 ml Balance 1000 ml -410 ml Exam Constitutional: alert, frail Psych: no complaints Head: normocephalic, other Eyes: EOMI ENMT: nl external ears & nose Neck: non-tender Respiratory: clear to auscultation, diminished breath sounds Cardiovascular: nl pulses Gastrointestinal: non-tender, soft Results Result Diagram: 05/16/16 0550 05/16/16 0550 Results 24 hrs Laboratory Tests Test 05/16/16 05:50 White Blood Count 6.5 # Red Blood Count 3.79 L Hemoglobin 10.4 L Hematocrit 33.1 L Mean Corpuscular Volume 87.3 Mean Corpuscular Hemoglobin 27.4 L Mean Corpuscular Hemoglobin Concent 31.4 L Red Cell Distribution Width 17.2 H Platelet Count 154 Mean Platelet Volume 12.5 H Neutrophils % 77.4 H Lymphocytes % 13.2 L Monocytes % 7.4 Eosinophils % 1.2 Basophils % 0.6 Nucleated Red Blood Cells % 0.0 Neutrophils # 5.0 Lymphocytes # 0.9 Monocytes # 0.5 Eosinophils # 0.1 Basophils # 0.0 Nucleated Red Blood Cells # 0.0 Sodium Level 137 Potassium Level 3.7 Chloride Level 97 Carbon Dioxide Level 33 H Anion Gap 11 Blood Urea Nitrogen 9 Creatinine 0.49 L Glucose Level 86 Calcium Level 8.8 Magnesium Level 1.6 L Medications Medications Current Medications Ondansetron HCl (Zofran Inj) 4 mg Q6H PRN IV NAUSEA AND/OR VOMITING Last administered on 04/24/16 21:00; Admin Dose 4 MG; Start 04/11/16 at 22:30 Acetaminophen (Tylenol Tab) 650 mg Q6H PRN PO PAIN LEVEL 1-3 OR FEVER; Start at 22:30 Morphine Sulfate (morphine) 2 mg Q4H PRN IV PAIN LEVEL 7-10 Last administered on 05/16/16 13:13; Admin Dose 2 MG; Start 04/11/16 at 22:30 Ascorbic Acid (Vitamin C) 500 mg DAILY GTB Last administered on 05/11/16 09:13 ; Admin Dose 500 MG; Start 04/12/16 at 09:00 Bisacodyl (Dulcolax) 10 mg DAILY PRN PO CONSTIPATION; Start 04/11/16 at 22:30 Chlorhexidine Gluconate (Peridex) 15 ml BID MM Last administered on 05/16/16 10:09; Admin Dose 15 ML; Start 04/12/16 at 09:00 Ferrous Sulfate (Feosol Liquid Cup) 300 mg BID GTB Last administered on 22:09; Admin Dose 300 MG; Start 04/12/16 at 09:00 Acetaminophen/ Hydrocodone Bitart ([place] (5/325)) 1 tab Q4 PRN GTB PAIN LEVEL 6 -10; Start 04/11/16 at 22:30 Lactulose (Enulose) 20 gm DAILY GTB Last administered on 05/11/16 09:12; Admin Dose 20 GM; Start 04/12/16 at 09:00 Quetiapine Fumarate (Seroquel) 25 mg BID@17 GTB Last administered on 17:33; Admin Dose 25 MG; Start 04/12/16 at 09:00 Quetiapine Fumarate (Seroquel) 200 mg HS GTB Last administered on 05/10/16 21: 28; Admin Dose 200 MG; Start 04/12/16 at 21:00 Senna (Senokot) 1 tab QHS GTB Last administered on 05/11/16 22:09; Admin Dose 1 TAB; Start 04/12/16 at 21:00 Sodium Biphosphate/ Sodium Phosphate (Fleet Enema Pediatric) 66.6 ml DAILY PRN [place] CONSTIPATION; Start 04/11/16 at 22:30 Thiamine HCl (Vitamin B1) 100 mg DAILY GTB Last administered on 05/11/16 09:13 ; Admin Dose 100 MG; Start 04/12/16 at 09:00 Calcium Carbonate (Tums) 500 mg DAILY GTB Last administered on 05/11/16 09:13 ; Admin Dose 500 MG; Start 04/12/16 at 09:00 Multivitamins/ Minerals (Theragran-M) 1 tab DAILY PO Last administered on 09:13; Admin Dose 1 TAB; Start 04/12/16 at 09:00 Hydralazine HCl (Apresoline) 10 mg Q6H PRN IV SBP >160 Last administered on 16:38; Admin Dose 10 MG; Start 04/12/16 at 12:30 Famotidine (Pepcid) 20 mg Q12 GTB Last administered on 05/11/16 22:09; Admin Dose 20 MG; Start 04/19/16 at 21:00 Lorazepam (Ativan) 1 mg Q4 PRN IV AGITATION/ANXIETY Last administered on 12:45; Admin Dose 1 MG; Start 04/24/16 at 21:00 Clonidine (Catapres) 0.1 mg Q6H PRN PO ELEVATED BLOOD PRESSURE; Start 04/24/16 at 23:30 Metoprolol Tartrate (Lopressor) 5 mg Q4H PRN IV PRN HR>110 Hold SBP<100; Start 04/28/16 at 13:30 Metoprolol Tartrate (Lopressor) 25 mg BID PO Last administered on 04/29/16 21: 29; Admin Dose 25 MG; Start 04/29/16 at 21:00; Status Future Hold Lorazepam (Ativan) 1 mg Q6 GTB Last administered on 05/12/16 03:11; Admin Dose 1 MG; Start 05/02/16 at 00:00 Aspirin (Aspirin) 81 mg DAILY PO Last administered on 05/11/16 09:13; Admin Dose 81 MG; Start 05/02/16 at 14:30 Chlordiazepoxide (Librium) 10 mg TID PO Last administered on 05/11/16 12:03; Admin Dose 10 MG; Start 05/04/16 at 09:00 Acetaminophen (Tylenol Liquid) 650 mg Q6H PRN GTB FEVER >101; Start 05/06/16 at 11:30 Furosemide (Lasix) 20 mg BID IV Last administered on 05/16/16 10:10; Admin Dose 20 MG; Start 05/06/16 at 21:00 Benazepril HCl 10 mg 10 mg DAILY PO ; Start 05/13/16 at 09:00 Potassium Chloride/Dextrose/ Sod Cl (D5-1/2ns + KCl 20 Meq) 1,000 ml @ 70 mls/ hr [id number] IV Last administered on 05/16/16 13:02; Admin Dose 70 MLS/HR; Start 05/12/16 at 19:00 Clonidine HCl (Catapres-Tts 1 Patch) 1 patch Q7D TRANSDERM Last administered on 05/13/16 15:28; Admin Dose 1 PATCH; Start 05/13/16 at 13:00 Hydralazine HCl (Apresoline) 10 mg Q6H PRN IV SBP>170; Start 05/13/16 at 13:00 BRENT KENDRICK May 16, 2016 13:38
--- NOTE | 2016-05-16 14:14 | PN ---
DATE: 05/16/2016 On questioning, the patient is not able to communicate because he has a tracheostomy tube in place, but by nodding, he was able to deny any chest pain, shortness of breath or any other symptoms. PHYSICAL EXAMINATION: VITAL SIGNS: Blood pressure is 158/95 was the highest blood pressure yesterday and the last blood p ressure we have is 111/76, heart rate of 90, temperature 98.7. NECK: JVP is not raised. There is a tracheostomy in place. CHEST: Bilaterally symmetrical. PMI localized in the fourth intercostal space and S1 and S2 are re gular; a I-II- systolic murmur is heard at the apex. LUNGS: A few scattered rare scattered rhonchi. ABDOMEN: Soft, nontender belly. EXTREMITIES: No pedal edema. Good pedal pulses. LABORATORY DATA: His white count is 6.5, hemoglobin is 10.4, and the platelet count is 154,000. Ch emistries reveal that his BUN and creatinine are 9 and 0.49 respectively. There are no new imaging studies. IMPRESSION: 1. Status post wide complex tachycardia, now in sinus rhythm. 2. Congestive heart failure by chest x-ray, which is better clinically. 3. Hypertension which is under control. 4. Respiratory insufficiency. 5. [id number] myocardial infarction. RECOMMENDATIONS: Continue same treatment. Dictated By: LORENA ANNE MD, RA/DAVID Conf#: [id number] DID#: [id number]
[2016-05-16] MEDS: QUETIAPINE 100 MG TAB GTB SCH (21:00)
[2016-05-16] MEDS: SENNA TAB GTB SCH (21:00)
[2016-05-17] VITALS (28 sets, daily range): BP systolic 99–133; BP diastolic 65–79; PULSE 63–89; RESP 12–25
[2016-05-17] MEDS: ALBUTEROL HFA 8 GM INHALER INH SCH ×4 (01:35→20:42)
[2016-05-17] MEDS: IPRATROPIUM (HFA) 12.9 GM INHALER INH SCH ×4 (01:35→20:42)
[2016-05-17] MEDS: morphine 2 MG INJ IV PRN ×3 (03:22→18:08)
[2016-05-17] MEDS: D5W-0.45 NACL + KCL 20 MEQ 1,000 ML IV SCH ×2 (03:23→18:08)
[2016-05-17] MEDS: LORAZEPAM 1 MG TAB GTB SCH ×4 (06:00→17:12)
[2016-05-17 07:19] LABS: ADD SCAN DIFF NO
[2016-05-17 07:25] LABS: BASOPHILS % 0.4 % (0.0-2.0); EOSINOPHILS # 0.1 10^3/ul (0.0-0.5); EOSINOPHILS % 1.3 % (0.0-7.0); HEMATOCRIT 32.4 % (42.0-52.0); HEMOGLOBIN 10.4 g/dl (14.0-18.0); LYMPHOCYTES # 0.9 10^3/ul (0.8-2.9); MEAN CORPUSCULAR HGB CONC 32.1 g/dl (32.0-37.0); MEAN CORPUSCULAR VOLUME 87.1 fl (82.0-101.0); MEAN PLATELET VOLUME 10.8 fl (7.4-10.4); MONOCYTE # 0.6 10^3/ul (0.3-0.9); MONOCYTES % 7.5 % (0.0-11.0); NEUTROPHIL # 6.2 10^3/ul (1.6-7.5); NEUTROPHILS % 79.5 % (39.0-77.0); PLATELET COUNT 158 10^3/UL (140-415); RED BLOOD COUNT 3.72 10^6/ul (4.70-6.10); RED CELL DISTRIBUTION WIDTH 16.7 % (11.5-14.5); WHITE BLOOD COUNT 7.8 10^3/ul (4.8-10.8)
[2016-05-17 07:44] LABS: POTASSIUM 3.7 mmol/L (3.5-5.1)
[2016-05-17 07:46] LABS: CREATININE 0.48 mg/dl (0.61-1.24)
[2016-05-17 07:47] LABS: CALCIUM 8.6 mg/dl (8.4-10.2)
[2016-05-17] MEDS: LORAZEPAM 2 MG INJ IV PRN ×2 (07:55→11:19)
--- NOTE | 2016-05-17 08:28 | CONS ---
Date/Time of Note Date/Time of Note DATE: 05/17/16 TIME: 08:25 Assessment/Plan Assessment/Plan Chief Complaint/Hosp Course 65 up male with acute hypoxic respiratory failure being admitted for sepsis secondary to ESBL bacteremia. Pt had a worsening normocytic anemia that was likely secondary to his underlying sepsis and antibiotic use. Pt is now off antibiotic and Hg has remained stable. PT had a bleeding trach site and found with and elevated PTT to 85. Pt was given SQ Vitamin K. He is no longer bleeding and PTT has decreased to 50's # Anemia -HG stable > 10 -continue to monitor Hg. if < 8 will consider transfusion. CBC is improving -s/p 5 days of V iron. now on po iron # Thrombocytopenia -likely secondary to sepsis and antibiotics. platelets are slowly improving # Bleeding trach -resolved -not coagulopathic. PTT still elevated but patient is positive for a lupus anticoagulant #Pneumonia -currently off antibiotics Approximately 40 min were spent at patient's bedside and in coordination of his care Problems: Consultation Date/Type/Reason Admit Date/Time Apr 11, 2016 at 22:13 Initial Consult Date 04/21/16 Type of Consultation: Hematology Reason for Consultation anemia Referring Provider: ANNETTA AGUILAR MD 24 HR Interval Summary Free Text/Dictation no acute overnight events Subjective hx not possible: pt non-verbal Exam/Review of Systems Vital Signs Vitals Vital Signs Date Time Temp Pulse Resp B/P Pulse Ox O2 Delivery O2 Flow Rate FiO2 05/17/16 07:51 97.3 68 20 121/75 100 05/17/16 06:37 Mechanical Ventilator 05/17/16 05:31 30 Intake and Output 05/16/16 05/16/16 05/17/16 15:00 23:00 07:00 Intake Total 840 ml 1240 ml Output Total 1300 ml 900 ml 1100 ml Balance -1300 ml -60 ml 140 ml Exam Constitutional: alert, frail Psych: no complaints Head: normocephalic Eyes: nl conjunctiva ENMT: nl external ears & nose Neck: other (trach in place.not bleeding) Respiratory: clear to auscultation Cardiovascular: regular rate and rhythm Gastrointestinal: soft Musculoskeletal: nl extremities to inspection, nl gait and stance Extremities: normal pulses Results Result Diagram: 05/17/16 0655 05/17/16 0635 Results 24 hrs Laboratory Tests Test 05/17/16 06:35 05/17/16 06:55 Sodium Level 134 L Potassium Level 3.7 Chloride Level 96 L Carbon Dioxide Level 34 H Anion Gap 8 Blood Urea Nitrogen 9 Creatinine 0.48 L Glucose Level 101 Calcium Level 8.6 White Blood Count 7.8 Red Blood Count 3.72 L Hemoglobin 10.4 L Hematocrit 32.4 L Mean Corpuscular Volume 87.1 Mean Corpuscular Hemoglobin 28.0 L Mean Corpuscular Hemoglobin Concent 32.1 Red Cell Distribution Width 16.7 H Platelet Count 158 Mean Platelet Volume 10.8 H Neutrophils % 79.5 H Lymphocytes % 11.0 L Monocytes % 7.5 Eosinophils % 1.3 Basophils % 0.4 Nucleated Red Blood Cells % 0.0 Neutrophils # 6.2 Lymphocytes # 0.9 Monocytes # 0.6 Eosinophils # 0.1 Basophils # 0.0 Nucleated Red Blood Cells # 0.0 Medications Medications Current Medications Ondansetron HCl (Zofran Inj) 4 mg Q6H PRN IV NAUSEA AND/OR VOMITING Last administered on 04/24/16 21:00; Admin Dose 4 MG; Start 04/11/16 at 22:30 Acetaminophen (Tylenol Tab) 650 mg Q6H PRN PO PAIN LEVEL 1-3 OR FEVER; Start at 22:30 Morphine Sulfate (morphine) 2 mg Q4H PRN IV PAIN LEVEL 7-10 Last administered on 05/17/16 03:22; Admin Dose 2 MG; Start 04/11/16 at 22:30 Ascorbic Acid (Vitamin C) 500 mg DAILY GTB Last administered on 05/11/16 09:13 ; Admin Dose 500 MG; Start 04/12/16 at 09:00 Bisacodyl (Dulcolax) 10 mg DAILY PRN PO CONSTIPATION; Start 04/11/16 at 22:30 Chlorhexidine Gluconate (Peridex) 15 ml BID MM Last administered on 05/16/16 21:42; Admin Dose 15 ML; Start 04/12/16 at 09:00 Ferrous Sulfate (Feosol Liquid Cup) 300 mg BID GTB Last administered on 22:09; Admin Dose 300 MG; Start 04/12/16 at 09:00 Acetaminophen/ Hydrocodone Bitart ([place] (5/325)) 1 tab Q4 PRN GTB PAIN LEVEL 6 -10; Start 04/11/16 at 22:30 Lactulose (Enulose) 20 gm DAILY GTB Last administered on 05/11/16 09:12; Admin Dose 20 GM; Start 04/12/16 at 09:00 Quetiapine Fumarate (Seroquel) 25 mg BID@ GTB Last administered on 17:33; Admin Dose 25 MG; Start 04/12/16 at 09:00 Quetiapine Fumarate (Seroquel) 200 mg HS GTB Last administered on 05/10/16 21: 28; Admin Dose 200 MG; Start 04/12/16 at 21:00 Senna (Senokot) 1 tab QHS GTB Last administered on 05/11/16 22:09; Admin Dose 1 TAB; Start 04/12/16 at 21:00 Sodium Biphosphate/ Sodium Phosphate (Fleet Enema Pediatric) 66.6 ml DAILY PRN [place] CONSTIPATION; Start 04/11/16 at 22:30 Thiamine HCl (Vitamin B1) 100 mg DAILY GTB Last administered on 05/11/16 09:13 ; Admin Dose 100 MG; Start 04/12/16 at 09:00 Calcium Carbonate (Tums) 500 mg DAILY GTB Last administered on 05/11/16 09:13 ; Admin Dose 500 MG; Start 04/12/16 at 09:00 Multivitamins/ Minerals (Theragran-M) 1 tab DAILY PO Last administered on 09:13; Admin Dose 1 TAB; Start 04/12/16 at 09:00 Hydralazine HCl (Apresoline) 10 mg Q6H PRN IV SBP >160 Last administered on 16:38; Admin Dose 10 MG; Start 04/12/16 at 12:30 Famotidine (Pepcid) 20 mg Q12 GTB Last administered on 05/11/16 22:09; Admin Dose 20 MG; Start 04/19/16 at 21:00 Clonidine (Catapres) 0.1 mg Q6H PRN PO ELEVATED BLOOD PRESSURE; Start 04/24/16 at 23:30 Metoprolol Tartrate (Lopressor) 5 mg Q4H PRN IV PRN HR>110 Hold SBP<100; Start 04/28/16 at 13:30 Metoprolol Tartrate (Lopressor) 25 mg BID PO Last administered on 04/29/16 21: 29; Admin Dose 25 MG; Start 04/29/16 at 21:00; Status Future Hold Lorazepam (Ativan) 1 mg Q6 GTB Last administered on 05/12/16 03:11; Admin Dose 1 MG; Start 05/02/16 at 00:00 Aspirin (Aspirin) 81 mg DAILY PO Last administered on 05/11/16 09:13; Admin Dose 81 MG; Start 05/02/16 at 14:30 Chlordiazepoxide (Librium) 10 mg TID PO Last administered on 05/11/16 12:03; Admin Dose 10 MG; Start 05/04/16 at 09:00 Acetaminophen (Tylenol Liquid) 650 mg Q6H PRN GTB FEVER >101; Start 05/06/16 at 11:30 Furosemide (Lasix) 20 mg BID IV Last administered on 05/16/16 21:49; Admin Dose 20 MG; Start 05/06/16 at 21:00 Benazepril HCl 10 mg 10 mg DAILY PO ; Start 05/13/16 at 09:00 Potassium Chloride/Dextrose/ Sod Cl (D5-1/2ns + KCl 20 Meq) 1,000 ml @ 70 mls/ hr [id number] IV Last administered on 05/17/16 03:23; Admin Dose 70 MLS/HR; Start 05/12/16 at 19:00 Clonidine HCl (Catapres-Tts 1 Patch) 1 patch Q7D TRANSDERM Last administered on 05/13/16 15:28; Admin Dose 1 PATCH; Start 05/13/16 at 13:00 Hydralazine HCl (Apresoline) 10 mg Q6H PRN IV SBP>170; Start 05/13/16 at 13:00 Lorazepam (Ativan) 2 mg Q4 PRN IV AGITATION Last administered on 05/17/16 07: 55; Admin Dose 2 MG; Start 05/16/16 at 16:00 JESI MONTEMAYOR M.D. May 17, 2016 08:28
[2016-05-17] MEDS: ASCORBIC ACID 500 MG TAB GTB SCH ×2 (09:00→10:08)
[2016-05-17] MEDS: ASPIRIN 81 MG TAB PO SCH ×2 (09:00→10:10)
[2016-05-17] MEDS: QUETIAPINE 25 MG TAB GTB SCH ×3 (09:00→17:00)
[2016-05-17] MEDS: LACTULOSE 30ML CUP GTB SCH ×2 (09:00→10:07)
[2016-05-17] MEDS: CALCIUM CARBONATE 500 MG CHEW TAB GTB SCH ×2 (09:00→10:08)
[2016-05-17] MEDS: BENAZEPRIL 10 MG TAB PO SCH ×2 (09:00→10:10)
[2016-05-17] MEDS: MULTIVITAMINS/MINERALS TAB PO SCH ×2 (09:00→10:10)
[2016-05-17] MEDS: THIAMINE 100 MG TAB GTB SCH ×2 (09:00→10:08)
[2016-05-17] MEDS: FAMOTIDINE 20 MG TAB GTB SCH ×3 (09:00→20:11)
[2016-05-17] MEDS: FERROUS SULFATE 60 MG/ML 5ML CUP GTB SCH ×3 (09:00→20:11)
[2016-05-17] MEDS: CHLORHEXIDINE GLUCONATE 15 ML UD CUP MM SCH ×2 (10:07→22:54)
[2016-05-17] MEDS: FUROSEMIDE 20 MG INJ IV SCH ×2 (10:08→22:54)
[2016-05-17] MEDS: CHLORDIAZEPOXIDE 5 MG CAP PO SCH ×3 (10:11→20:13)
[2016-05-17] MEDS: ONDANSETRON 4 MG INJ IV PRN (11:19)
--- NOTE | 2016-05-17 12:14 | CONS ---
Date/Time of Note Date/Time of Note DATE: 05/17/16 TIME: 12:11 Assessment/Plan Assessment/Plan Chief Complaint/Hosp Course IMPRESSION: 1. Wide complex tachycardia, cardiac arrhythmia. Rule out nonsustained ventricular tachycardia.-likely c/w abberant AF-no recurrence 2. Abnormal electrocardiogram, assess for acute coronary syndrome. 3. Congestive heart failure by chest x-ray, diastolic by most recent echo acute on chronic. 4. Hypertension with current borderline HOtn s/p IVP hydralazine 5. Respiratory failure, chronic, status post tracheostomy with desat now transferred to ICU 6. Dysphagia, status post G-tube which patient pulled out/self d/c'd 7. Psychiatric disorder. 8. Urinary tract infection. 9. Hypokalemia-improved 10. Anemia. 11. Leukopenia. 12.Nstemi-no current chest pain/decreased enzymes 14. Bradycardia-improved Recc: -Tele -Continue to hold BB given prior bradycardia -Continue asa medical therapy for nstemi with currently decreased cardiac enzymes/NO cp as able given no po access -Continue lasix diuresis and consider increase dose to improve diuresis -LHC discussed with patient but patient does not have clear understanding and would like to wait -LOvenox held due to trach site bleeding -Continue ACEI/clonidine TTS and follow labile BP Problems: Consultation Date/Type/Reason Admit Date/Time Apr 11, 2016 at 22:13 Initial Consult Date 04/21/16 Type of Consultation: Cardiology Reason for Consultation NSVT Referring Provider: ANNETTA AGUILAR MD Exam/Review of Systems Vital Signs Vitals Vital Signs Date Time Temp Pulse Resp B/P Pulse Ox O2 Delivery O2 Flow Rate FiO2 05/17/16 11:48 98.0 70 24 99/68 94 05/17/16 09:00 40 05/17/16 06:37 Mechanical Ventilator Intake and Output 05/16/16 05/16/16 05/17/16 15:00 23:00 07:00 Intake Total 840 ml 1240 ml Output Total 1300 ml 900 ml 1100 ml Balance -1300 ml -60 ml 140 ml Exam Review of Systems: CONSTITUTIONAL: No fevers, chills. PULMONARY: Trached CARDIOVASCULAR: No obvioua chest pain/palpitations GASTROINTESTINAL: No nausea/vomiting. GENITOURINARY: No hematuria/dysuria. MUSCULOSKELETAL: No obvioua myagias/arthalgias. PSYCHIATRIC: The patient denies depression. NEUROLOGIC: No weakness Constitutional: alert, oriented Psych: no complaints Head: normocephalic ENMT: mucosa pink and moist Neck: jvd, supple Respiratory: diminished breath sounds Cardiovascular: regular rate and rhythm Gastrointestinal: non-tender, soft Musculoskeletal: muscle tone (normal;) Extremities: edema (none) Neurological: other (No focal deficits) Results Result Diagram: 05/17/16 0655 05/17/16 0635 Results 24 hrs Laboratory Tests Test 05/17/16 06:35 05/17/16 06:55 Sodium Level 134 L Potassium Level 3.7 Chloride Level 96 L Carbon Dioxide Level 34 H Anion Gap 8 Blood Urea Nitrogen 9 Creatinine 0.48 L Glucose Level 101 Calcium Level 8.6 White Blood Count 7.8 Red Blood Count 3.72 L Hemoglobin 10.4 L Hematocrit 32.4 L Mean Corpuscular Volume 87.1 Mean Corpuscular Hemoglobin 28.0 L Mean Corpuscular Hemoglobin Concent 32.1 Red Cell Distribution Width 16.7 H Platelet Count 158 Mean Platelet Volume 10.8 H Neutrophils % 79.5 H Lymphocytes % 11.0 L Monocytes % 7.5 Eosinophils % 1.3 Basophils % 0.4 Nucleated Red Blood Cells % 0.0 Neutrophils # 6.2 Lymphocytes # 0.9 Monocytes # 0.6 Eosinophils # 0.1 Basophils # 0.0 Nucleated Red Blood Cells # 0.0 Medications Medications Current Medications Ondansetron HCl (Zofran Inj) 4 mg Q6H PRN IV NAUSEA AND/OR VOMITING Last administered on 05/17/16 11:19; Admin Dose 4 MG; Start 04/11/16 at 22:30 Acetaminophen (Tylenol Tab) 650 mg Q6H PRN PO PAIN LEVEL 1-3 OR FEVER; Start at 22:30 Morphine Sulfate (morphine) 2 mg Q4H PRN IV PAIN LEVEL 7-10 Last administered on 05/17/16 10:07; Admin Dose 2 MG; Start 04/11/16 at 22:30 Ascorbic Acid (Vitamin C) 500 mg DAILY GTB Last administered on 05/11/16 09:13 ; Admin Dose 500 MG; Start 04/12/16 at 09:00 Bisacodyl (Dulcolax) 10 mg DAILY PRN PO CONSTIPATION; Start 04/11/16 at 22:30 Chlorhexidine Gluconate (Peridex) 15 ml BID MM Last administered on 05/17/16 10:07; Admin Dose 15 ML; Start 04/12/16 at 09:00 Ferrous Sulfate (Feosol Liquid Cup) 300 mg BID GTB Last administered on 22:09; Admin Dose 300 MG; Start 04/12/16 at 09:00 Acetaminophen/ Hydrocodone Bitart ([place] (5/325)) 1 tab Q4 PRN GTB PAIN LEVEL 6 -10; Start 04/11/16 at 22:30 Lactulose (Enulose) 20 gm DAILY GTB Last administered on 05/11/16 09:12; Admin Dose 20 GM; Start 04/12/16 at 09:00 Quetiapine Fumarate (Seroquel) 25 mg BID@ GTB Last administered on 17:33; Admin Dose 25 MG; Start 04/12/16 at 09:00 Quetiapine Fumarate (Seroquel) 200 mg HS GTB Last administered on 05/10/16 21: 28; Admin Dose 200 MG; Start 04/12/16 at 21:00 Senna (Senokot) 1 tab QHS GTB Last administered on 05/11/16 22:09; Admin Dose 1 TAB; Start 04/12/16 at 21:00 Sodium Biphosphate/ Sodium Phosphate (Fleet Enema Pediatric) 66.6 ml DAILY PRN [place] CONSTIPATION; Start 04/11/16 at 22:30 Thiamine HCl (Vitamin B1) 100 mg DAILY GTB Last administered on 05/11/16 09:13 ; Admin Dose 100 MG; Start 04/12/16 at 09:00 Calcium Carbonate (Tums) 500 mg DAILY GTB Last administered on 05/11/16 09:13 ; Admin Dose 500 MG; Start 04/12/16 at 09:00 Multivitamins/ Minerals (Theragran-M) 1 tab DAILY PO Last administered on 09:13; Admin Dose 1 TAB; Start 04/12/16 at 09:00 Hydralazine HCl (Apresoline) 10 mg Q6H PRN IV SBP >160 Last administered on 16:38; Admin Dose 10 MG; Start 04/12/16 at 12:30 Famotidine (Pepcid) 20 mg Q12 GTB Last administered on 05/11/16 22:09; Admin Dose 20 MG; Start 04/19/16 at 21:00 Clonidine (Catapres) 0.1 mg Q6H PRN PO ELEVATED BLOOD PRESSURE; Start 04/24/16 at 23:30 Metoprolol Tartrate (Lopressor) 5 mg Q4H PRN IV PRN HR>110 Hold SBP<100; Start 04/28/16 at 13:30 Metoprolol Tartrate (Lopressor) 25 mg BID PO Last administered on 04/29/16 21: 29; Admin Dose 25 MG; Start 04/29/16 at 21:00; Status Future Hold Lorazepam (Ativan) 1 mg Q6 GTB Last administered on 05/12/16 03:11; Admin Dose 1 MG; Start 05/02/16 at 00:00 Aspirin (Aspirin) 81 mg DAILY PO Last administered on 05/11/16 09:13; Admin Dose 81 MG; Start 05/02/16 at 14:30 Chlordiazepoxide (Librium) 10 mg TID PO Last administered on 05/17/16 10:11; Admin Dose 10 MG; Start 05/04/16 at 09:00 Acetaminophen (Tylenol Liquid) 650 mg Q6H PRN GTB FEVER >101; Start 05/06/16 at 11:30 Furosemide (Lasix) 20 mg BID IV Last administered on 05/17/16 10:08; Admin Dose 20 MG; Start 05/06/16 at 21:00 Benazepril HCl 10 mg 10 mg DAILY PO ; Start 05/13/16 at 09:00 Potassium Chloride/Dextrose/ Sod Cl (D5-1/2ns + KCl 20 Meq) 1,000 ml @ 70 mls/ hr [id number] IV Last administered on 05/17/16 03:23; Admin Dose 70 MLS/HR; Start 05/12/16 at 19:00 Clonidine HCl (Catapres-Tts 1 Patch) 1 patch Q7D TRANSDERM Last administered on 05/13/16 15:28; Admin Dose 1 PATCH; Start 05/13/16 at 13:00 Hydralazine HCl (Apresoline) 10 mg Q6H PRN IV SBP>170; Start 05/13/16 at 13:00 Lorazepam (Ativan) 2 mg Q4 PRN IV AGITATION Last administered on 05/17/16t 11: 19; Admin Dose 2 MG; Start 05/16/16 at 16:00 LILI BRADEN May 17, 2016 12:14
--- NOTE | 2016-05-17 16:51 | CONS ---
Date/Time of Note Date/Time of Note DATE: 05/17/16 TIME: 16:49 Consult Date/Type/Reason Admit Date/Time Apr 11, 2016 at 22:13 Initial Consult Date 04/21/16 Type of Consultation: pulmonary Ordering Provider: ANNETTA AGUILAR MD Subjective Patient continues mechanical ventilation no new events Remains somnolent Objective Vital Signs Date Time Temp Pulse Resp B/P Pulse Ox O2 Delivery O2 Flow Rate FiO2 05/17/16 16:40 63 05/17/16 15:51 98.3 25 116/71 97 05/17/16 14:42 30 05/17/16 06:37 Mechanical Ventilator Intake and Output 05/16/16 05/16/16 05/17/16 15:00 23:00 07:00 Intake Total 840 ml 1240 ml Output Total 1300 ml 900 ml 1100 ml Balance -1300 ml -60 ml 140 ml Exam PHYSICAL EXAMINATION GENERAL: Elderly gentleman, chronically ill-appearing on mechanical ventilation VITAL SIGNS: see below. HEENT: Pupils equal, round, and reactive to light. Tracheostomy site clean and intact. CARDIAC: S1, S2, no added sounds or murmurs CHEST: Diminished air entry bilaterally. ABDOMEN: Mildly distended. Diminished bowel sounds EXTREMITIES: No cyanosis, clubbing edema +1 NEUROLOGIC: Generalized weakness Results/Medications Result Diagram: 05/17/16 0655 05/17/16 0635 Results 24 hrs Laboratory Tests Test 05/17/16 06:35 05/17/16 06:55 Sodium Level 134 L Potassium Level 3.7 Chloride Level 96 L Carbon Dioxide Level 34 H Anion Gap 8 Blood Urea Nitrogen 9 Creatinine 0.48 L Glucose Level 101 Calcium Level 8.6 White Blood Count 7.8 Red Blood Count 3.72 L Hemoglobin 10.4 L Hematocrit 32.4 L Mean Corpuscular Volume 87.1 Mean Corpuscular Hemoglobin 28.0 L Mean Corpuscular Hemoglobin Concent 32.1 Red Cell Distribution Width 16.7 H Platelet Count 158 Mean Platelet Volume 10.8 H Neutrophils % 79.5 H Lymphocytes % 11.0 L Monocytes % 7.5 Eosinophils % 1.3 Basophils % 0.4 Nucleated Red Blood Cells % 0.0 Neutrophils # 6.2 Lymphocytes # 0.9 Monocytes # 0.6 Eosinophils # 0.1 Basophils # 0.0 Nucleated Red Blood Cells # 0.0 Medications Current Medications Ondansetron HCl (Zofran Inj) 4 mg Q6H PRN IV NAUSEA AND/OR VOMITING Last administered on 05/17/16 11:19; Admin Dose 4 MG; Start 04/11/16 at 22:30 Acetaminophen (Tylenol Tab) 650 mg Q6H PRN PO PAIN LEVEL 1-3 OR FEVER; Start at 22:30 Morphine Sulfate (morphine) 2 mg Q4H PRN IV PAIN LEVEL 7-10 Last administered on 05/17/16 10:07; Admin Dose 2 MG; Start 04/11/16 at 22:30 Ascorbic Acid (Vitamin C) 500 mg DAILY GTB Last administered on 05/11/16 09:13 ; Admin Dose 500 MG; Start 04/12/16 at 09:00 Bisacodyl (Dulcolax) 10 mg DAILY PRN PO CONSTIPATION; Start 04/11/16 at 22:30 Chlorhexidine Gluconate (Peridex) 15 ml BID MM Last administered on 05/17/16 10:07; Admin Dose 15 ML; Start 04/12/16 at 09:00 Ferrous Sulfate (Feosol Liquid Cup) 300 mg BID GTB Last administered on 22:09; Admin Dose 300 MG; Start 04/12/16 at 09:00 Acetaminophen/ Hydrocodone Bitart ([place] (5/325)) 1 tab Q4 PRN GTB PAIN LEVEL 6 -10; Start 04/11/16 at 22:30 Lactulose (Enulose) 20 gm DAILY GTB Last administered on 05/11/16 09:12; Admin Dose 20 GM; Start 04/12/16 at 09:00 Quetiapine Fumarate (Seroquel) 25 mg BID@ GTB Last administered on 17:33; Admin Dose 25 MG; Start 04/12/16 at 09:00 Quetiapine Fumarate (Seroquel) 200 mg HS GTB Last administered on 05/10/16 21: 28; Admin Dose 200 MG; Start 04/12/16 at 21:00 Senna (Senokot) 1 tab QHS GTB Last administered on 05/11/16 22:09; Admin Dose 1 TAB; Start 04/12/16 at 21:00 Sodium Biphosphate/ Sodium Phosphate (Fleet Enema Pediatric) 66.6 ml DAILY PRN [place] CONSTIPATION; Start 04/11/16 at 22:30 Thiamine HCl (Vitamin B1) 100 mg DAILY GTB Last administered on 05/11/16 09:13 ; Admin Dose 100 MG; Start 04/12/16 at 09:00 Calcium Carbonate (Tums) 500 mg DAILY GTB Last administered on 05/11/16 09:13 ; Admin Dose 500 MG; Start 04/12/16 at 09:00 Multivitamins/ Minerals (Theragran-M) 1 tab DAILY PO Last administered on 09:13; Admin Dose 1 TAB; Start 04/12/16 at 09:00 Hydralazine HCl (Apresoline) 10 mg Q6H PRN IV SBP >160 Last administered on 16:38; Admin Dose 10 MG; Start 04/12/16 at 12:30 Famotidine (Pepcid) 20 mg Q12 GTB Last administered on 05/11/16 22:09; Admin Dose 20 MG; Start 04/19/16 at 21:00 Clonidine (Catapres) 0.1 mg Q6H PRN PO ELEVATED BLOOD PRESSURE; Start 04/24/16 at 23:30 Metoprolol Tartrate (Lopressor) 5 mg Q4H PRN IV PRN HR>110 Hold SBP<100; Start 04/28/16 at 13:30 Metoprolol Tartrate (Lopressor) 25 mg BID PO Last administered on 04/29/16 21: 29; Admin Dose 25 MG; Start 04/29/16 at 21:00; Status Future Hold Lorazepam (Ativan) 1 mg Q6 GTB Last administered on 05/12/16 03:11; Admin Dose 1 MG; Start 05/02/16 at 00:00 Aspirin (Aspirin) 81 mg DAILY PO Last administered on 05/11/16 09:13; Admin Dose 81 MG; Start 05/02/16 at 14:30 Chlordiazepoxide (Librium) 10 mg TID PO Last administered on 05/17/16 10:11; Admin Dose 10 MG; Start 05/04/16 at 09:00 Acetaminophen (Tylenol Liquid) 650 mg Q6H PRN GTB FEVER >101; Start 05/06/16 at 11:30 Furosemide (Lasix) 20 mg BID IV Last administered on 05/17/16 10:08; Admin Dose 20 MG; Start 05/06/16 at 21:00 Benazepril HCl 10 mg 10 mg DAILY PO ; Start 05/13/16 at 09:00 Potassium Chloride/Dextrose/ Sod Cl (D5-1/2ns + KCl 20 Meq) 1,000 ml @ 70 mls/ hr [id number] IV Last administered on 05/17/16 03:23; Admin Dose 70 MLS/HR; Start 05/12/16 at 19:00 Clonidine HCl (Catapres-Tts 1 Patch) 1 patch Q7D TRANSDERM Last administered on 05/13/16 15:28; Admin Dose 1 PATCH; Start 05/13/16 at 13:00 Hydralazine HCl (Apresoline) 10 mg Q6H PRN IV SBP>170; Start 05/13/16 at 13:00 Lorazepam (Ativan) 2 mg Q4 PRN IV AGITATION Last administered on 05/17/16 11: 19; Admin Dose 2 MG; Start 05/16/16 at 16:00 Assessment/Plan Chief Complaint/Hosp Course Assessment 1. Vent dependent respiratory failure 2. Dysphagia with G-tube 3. History of psychiatric disorder 4. Marked cachexia 5. Resolved thrombocytopenia 6. History of non-ST elevation [place] Plan 1. Continue mechanical ventilation 2. Continue tube feeding and aspiration precautions 3. Continue DVT GI prophylaxis 4. Continue cardiac recommendations Disposition Consider discharge planning if placement available Problems: MARISOL EDDY MD, [facility] May 17, 2016 16:51
--- NOTE | 2016-05-17 17:02 | PN ---
Date/Time of Note Date/Time of Note DATE: 05/17/16 TIME: 17:00 Assessment/Plan VTE Prophylaxis VTE Prophylaxis Intervention: SCD's Lines/Catheters IV Catheter Type (from [facility]): PICC Line Central line still needed: Yes Urinary Cath still in place: Yes (Condom catheter) Reason Cath still needed: urinary retention Assessment/Plan Chief Complaint/Hosp Course ASSESSMENT AND PLAN: -Bleeding from tracheostomy site, resolved. -Pancytopenia. Dr Gaona is following in hematology consultation. -Coagulopathy, status post vitamin K, Lovenox is held - NSTEMI, continue aspirin and Lovenox. Dr. Espitia is following patient in cardiology consultation. - Atrial fibrillation with rapid ventricular response. Continue metoprolol. Continue telemetry monitoring. - Bilateral pleural effusions, status post right sided thoracentesis. - Acute hypoxic respiratory failure. Dr. Anderson is following in pulmonology consultation. Continue ventilatory support and bronchodilators. - Possible healthcare-acquired left lower lung pneumonia versus aspiration. Continue antibiotics per ID. Dr. Rojas is following an infection disease consultation. - E. coli ESBL urinary tract infection, status post treatment. - Sepsis with Ecoli ESBL bacteremia 2 UTI, resolved. - Dysphagia, with G-tube. Status post G-tube removal by patient. Status post G-tube placement by Dr. Marcus 05/10, currently DC'd by patient. - History of chronic respiratory failure with tracheostomy. - Benign prostatic hypertrophy. - Schizoaffective disorder. Continue Seroquel and Ativan as needed for agitation. Continue Pepcid for peptic ulcer disease prophylaxis. Further recommendations based on clinical course. Plan of care discussed with Dr. Colunga. Problems: Subjective 24 Hr Interval Summary Free Text/Dictation Patient is pending G-tube placement, remains afebrile, continued on IV fluids and ventilator support. Patient was periods of agitation, currently calm. Exam/Review of Systems Vital Signs Vitals Vital Signs Date Time Temp Pulse Resp B/P Pulse Ox O2 Delivery O2 Flow Rate FiO2 05/17/16 16:40 63 05/17/16 15:51 98.3 25 116/71 97 05/17/16 14:42 30 05/17/16 06:37 Mechanical Ventilator Intake and Output 05/16/16 05/16/16 05/17/16 15:00 23:00 07:00 Intake Total 840 ml 1240 ml Output Total 1300 ml 900 ml 1100 ml Balance -1300 ml -60 ml 140 ml Exam GENERAL: A well-developed, cachectic gentleman, on ventilatory support via tracheostomy. HEENT: Head is atraumatic, normocephalic. LYDIA. NECK: Supple, with tracheostomy at the base of the neck. LUNGS: Diminished at the bases. Patient has scattered severe rhonchi bilaterally. CARDIOVASCULAR: Normal S1, S2. No murmurs, gallops, clicks, rubs noted. ABDOMEN: Flat, soft, nondistended, nontender. Bowel sounds present. EXTREMITIES: Contractured. There is no edema, clubbing, cyanosis. Pulses equal bilaterally, 2+. SKIN: There is no rash, petechiae noted. NEUROLOGIC: Awake alert, with intermittent periods of confusion Results Result Diagram: 05/17/16 0655 05/17/16 0635 Results 24 hrs Laboratory Tests Test 05/17/16 06:35 05/17/16 06:55 Sodium Level 134 L Potassium Level 3.7 Chloride Level 96 L Carbon Dioxide Level 34 H Anion Gap 8 Blood Urea Nitrogen 9 Creatinine 0.48 L Glucose Level 101 Calcium Level 8.6 White Blood Count 7.8 Red Blood Count 3.72 L Hemoglobin 10.4 L Hematocrit 32.4 L Mean Corpuscular Volume 87.1 Mean Corpuscular Hemoglobin 28.0 L Mean Corpuscular Hemoglobin Concent 32.1 Red Cell Distribution Width 16.7 H Platelet Count 158 Mean Platelet Volume 10.8 H Neutrophils % 79.5 H Lymphocytes % 11.0 L Monocytes % 7.5 Eosinophils % 1.3 Basophils % 0.4 Nucleated Red Blood Cells % 0.0 Neutrophils # 6.2 Lymphocytes # 0.9 Monocytes # 0.6 Eosinophils # 0.1 Basophils # 0.0 Nucleated Red Blood Cells # 0.0 Medications Medications Current Medications Ondansetron HCl (Zofran Inj) 4 mg Q6H PRN IV NAUSEA AND/OR VOMITING Last administered on 05/17/16t 11:19; Admin Dose 4 MG; Start 04/11/16 at 22:30 Acetaminophen (Tylenol Tab) 650 mg Q6H PRN PO PAIN LEVEL 1-3 OR FEVER; Start at 22:30 Morphine Sulfate (morphine) 2 mg Q4H PRN IV PAIN LEVEL 7-10 Last administered on 05/17/16 10:07; Admin Dose 2 MG; Start 04/11/16 at 22:30 Ascorbic Acid (Vitamin C) 500 mg DAILY GTB Last administered on 05/11/16 09:13 ; Admin Dose 500 MG; Start 04/12/16 at 09:00 Bisacodyl (Dulcolax) 10 mg DAILY PRN PO CONSTIPATION; Start 04/11/16 at 22:30 Chlorhexidine Gluconate (Peridex) 15 ml BID MM Last administered on 05/17/16 10:07; Admin Dose 15 ML; Start 04/12/16 at 09:00 Ferrous Sulfate (Feosol Liquid Cup) 300 mg BID GTB Last administered on 22:09; Admin Dose 300 MG; Start 04/12/16 at 09:00 Acetaminophen/ Hydrocodone Bitart ([place] (5/325)) 1 tab Q4 PRN GTB PAIN LEVEL 6 -10; Start 04/11/16 at 22:30 Lactulose (Enulose) 20 gm DAILY GTB Last administered on 05/11/16 09:12; Admin Dose 20 GM; Start 04/12/16 at 09:00 Quetiapine Fumarate (Seroquel) 25 mg BID@ GTB Last administered on 17:33; Admin Dose 25 MG; Start 04/12/16 at 09:00 Quetiapine Fumarate (Seroquel) 200 mg HS GTB Last administered on 05/10/16 21: 28; Admin Dose 200 MG; Start 04/12/16 at 21:00 Senna (Senokot) 1 tab QHS GTB Last administered on 05/11/16 22:09; Admin Dose 1 TAB; Start 04/12/16 at 21:00 Sodium Biphosphate/ Sodium Phosphate (Fleet Enema Pediatric) 66.6 ml DAILY PRN [place] CONSTIPATION; Start 04/11/16 at 22:30 Thiamine HCl (Vitamin B1) 100 mg DAILY GTB Last administered on 05/11/16 09:13 ; Admin Dose 100 MG; Start 04/12/16 at 09:00 Calcium Carbonate (Tums) 500 mg DAILY GTB Last administered on 05/11/16 09:13 ; Admin Dose 500 MG; Start 04/12/16 at 09:00 Multivitamins/ Minerals (Theragran-M) 1 tab DAILY PO Last administered on 09:13; Admin Dose 1 TAB; Start 04/12/16 at 09:00 Hydralazine HCl (Apresoline) 10 mg Q6H PRN IV SBP >160 Last administered on 16:38; Admin Dose 10 MG; Start 04/12/16 at 12:30 Famotidine (Pepcid) 20 mg Q12 GTB Last administered on 05/11/16 22:09; Admin Dose 20 MG; Start 04/19/16 at 21:00 Clonidine (Catapres) 0.1 mg Q6H PRN PO ELEVATED BLOOD PRESSURE; Start 04/24/16 at 23:30 Metoprolol Tartrate (Lopressor) 5 mg Q4H PRN IV PRN HR>110 Hold SBP<100; Start 04/28/16 at 13:30 Metoprolol Tartrate (Lopressor) 25 mg BID PO Last administered on 04/29/16 21: 29; Admin Dose 25 MG; Start 04/29/16 at 21:00; Status Future Hold Lorazepam (Ativan) 1 mg Q6 GTB Last administered on 05/12/16 03:11; Admin Dose 1 MG; Start 05/02/16 at 00:00 Aspirin (Aspirin) 81 mg DAILY PO Last administered on 05/11/16 09:13; Admin Dose 81 MG; Start 05/02/16 at 14:30 Chlordiazepoxide (Librium) 10 mg TID PO Last administered on 05/17/16 10:11; Admin Dose 10 MG; Start 05/04/16 at 09:00 Acetaminophen (Tylenol Liquid) 650 mg Q6H PRN GTB FEVER >101; Start 05/06/16 at 11:30 Furosemide (Lasix) 20 mg BID IV Last administered on 05/17/16 10:08; Admin Dose 20 MG; Start 05/06/16 at 21:00 Benazepril HCl 10 mg 10 mg DAILY PO ; Start 05/13/16 at 09:00 Potassium Chloride/Dextrose/ Sod Cl (D5-1/2ns + KCl 20 Meq) 1,000 ml @ 70 mls/ hr [id number] IV Last administered on 05/17/16 03:23; Admin Dose 70 MLS/HR; Start 05/12/16 at 19:00 Clonidine HCl (Catapres-Tts 1 Patch) 1 patch Q7D TRANSDERM Last administered on 05/13/16 15:28; Admin Dose 1 PATCH; Start 05/13/16 at 13:00 Hydralazine HCl (Apresoline) 10 mg Q6H PRN IV SBP>170; Start 05/13/16 at 13:00 Lorazepam (Ativan) 2 mg Q4 PRN IV AGITATION Last administered on 05/17/16 11: 19; Admin Dose 2 MG; Start 05/16/16 at 16:00 SHELBY BUNCH May 17, 2016 17:02
[2016-05-17] MEDS: SENNA TAB GTB SCH (20:12)
[2016-05-17] MEDS: QUETIAPINE 100 MG TAB GTB SCH (20:12)
[2016-05-18] VITALS (34 sets, daily range): BP systolic 118–147; BP diastolic 55–85; PULSE 52–88; RESP 12–22
[2016-05-18] MEDS: ALBUTEROL HFA 8 GM INHALER INH SCH ×4 (01:20→21:08)
[2016-05-18] MEDS: IPRATROPIUM (HFA) 12.9 GM INHALER INH SCH ×4 (01:20→21:08)
[2016-05-18] MEDS: LORAZEPAM 2 MG INJ IV PRN (03:42)
[2016-05-18] MEDS: LORAZEPAM 1 MG TAB GTB SCH ×4 (06:00→17:35)
[2016-05-18] MEDS: morphine 2 MG INJ IV PRN ×2 (06:42→11:34)
[2016-05-18 06:55] LABS: ADD SCAN DIFF NO
[2016-05-18 07:00] LABS: BASOPHILS % 0.3 % (0.0-2.0); EOSINOPHILS # 0.1 10^3/ul (0.0-0.5); EOSINOPHILS % 0.6 % (0.0-7.0); HEMATOCRIT 31.6 % (42.0-52.0); HEMOGLOBIN 10.2 g/dl (14.0-18.0); LYMPHOCYTES # 0.9 10^3/ul (0.8-2.9); LYMPHOCYTES % 8.5 % (15.0-51.0); MEAN CORPUSCULAR HEMOGLOBIN 28.1 pg (29.0-33.0); MEAN CORPUSCULAR HGB CONC 32.3 g/dl (32.0-37.0); MEAN CORPUSCULAR VOLUME 87.1 fl (82.0-101.0); MEAN PLATELET VOLUME 11.5 fl (7.4-10.4); MONOCYTE # 0.6 10^3/ul (0.3-0.9); MONOCYTES % 5.7 % (0.0-11.0); NEUTROPHIL # 8.8 10^3/ul (1.6-7.5); NEUTROPHILS % 84.4 % (39.0-77.0); PLATELET COUNT 164 10^3/UL (140-415); RED BLOOD COUNT 3.63 10^6/ul (4.70-6.10); RED CELL DISTRIBUTION WIDTH 16.5 % (11.5-14.5); WHITE BLOOD COUNT 10.4 10^3/ul (4.8-10.8)
[2016-05-18 07:46] LABS: POTASSIUM 3.9 mmol/L (3.5-5.1)
[2016-05-18 07:48] LABS: CREATININE 0.5 mg/dl (0.61-1.24)
[2016-05-18 07:49] LABS: CALCIUM 8.7 mg/dl (8.4-10.2)
[2016-05-18] MEDS: LACTULOSE 30ML CUP GTB SCH (08:10)
[2016-05-18] MEDS: FAMOTIDINE 20 MG TAB GTB SCH ×2 (08:10→21:00)
[2016-05-18] MEDS: FERROUS SULFATE 60 MG/ML 5ML CUP GTB SCH ×2 (08:10→21:00)
[2016-05-18] MEDS: QUETIAPINE 25 MG TAB GTB SCH ×2 (08:10→16:21)
[2016-05-18] MEDS: THIAMINE 100 MG TAB GTB SCH (08:11)
[2016-05-18] MEDS: CALCIUM CARBONATE 500 MG CHEW TAB GTB SCH (08:11)
[2016-05-18] MEDS: CHLORDIAZEPOXIDE 5 MG CAP PO SCH ×3 (08:12→21:00)
[2016-05-18] MEDS: ASPIRIN 81 MG TAB PO SCH (08:12)
[2016-05-18] MEDS: ASCORBIC ACID 500 MG TAB GTB SCH (08:12)
[2016-05-18] MEDS: BENAZEPRIL 10 MG TAB PO SCH (08:12)
[2016-05-18] MEDS: MULTIVITAMINS/MINERALS TAB PO SCH (08:13)
--- NOTE | 2016-05-18 09:19 | CONS ---
Date/Time of Note Date/Time of Note DATE: 05/18/16 TIME: 09:17 Assessment/Plan Assessment/Plan Additional Assessment/Plan 1. Wide complex tachycardia, cardiac arrhythmia. Rule out nonsustained ventricular tachycardia.-likely c/w abberant AF-no recurrence - no new episodes now 2. Abnormal electrocardiogram, assess for acute coronary syndrome- con't med rx 3. Congestive heart failure by chest x-ray, diastolic by most recent echo acute on chronic- con't to keep euvolemic. 4. Hypertension with current borderline HOtn s/p IVP hydralazine 5. Respiratory failure, chronic, status post tracheostomy - now on TELE 6. Dysphagia, status post G-tube which patient pulled out/self d/c'd 7. Psychiatric disorder. 8. Urinary tract infection- on anti-Bx, con't to monitor 9. Hypokalemia-improved 10. Anemia- H/H stable - no bleeding now 11. Leukopenia. 12.Nstemi-no current chest pain/decreased enzymes 14. Bradycardia-improved Consultation Date/Type/Reason Admit Date/Time Apr 11, 2016 at 22:13 Initial Consult Date 04/21/16 Type of Consultation: pulmonary Referring Provider: ANNETTA AGUILAR MD 24 HR Interval Summary Free Text/Dictation NO acute change - BP stable - con't to keep euvolemic. ROS: No fever, no chills, no nausea, no vomiting, no diarrhea/constipation No recent weight changes No chest pain, no PND, no orthopnea No dizziness, blurred vision No thirst, no heat or cold intolerance (per nurse) Exam/Review of Systems Vital Signs Vitals Vital Signs Date Time Temp Pulse Resp B/P Pulse Ox O2 Delivery O2 Flow Rate FiO2 05/18/16 08:26 75 05/18/16 07:24 98.0 18 130/78 97 05/18/16 06:00 Mechanical Ventilator 05/18/16 05:43 30 Intake and Output 05/17/16 05/17/16 05/18/16 14:59 22:59 06:59 Intake Total 490 ml 280 ml 840 ml Output Total 800 ml 400 ml Balance 490 ml -520 ml 440 ml Exam General: WN/WD/NAD, AOx 0 HEENT: Unicetric/atraumatic/EOMI (does not follow commands) NECK: trach , no thyromegaly Lymph: no lymphadenopathy HEART: regular with no S3, II/ systolic murmur at apex LUNGS: Coarse sounds ABD: soft, NT, ND, +BS : Intact Neuro: non focal SKIN: chronic changes EXT: trace edema Results Result Diagram: 05/18/16 0555 05/18/16 0555 Results 24 hrs Laboratory Tests Test 05/18/16 05:55 White Blood Count 10.4 # Red Blood Count 3.63 L Hemoglobin 10.2 L Hematocrit 31.6 L Mean Corpuscular Volume 87.1 Mean Corpuscular Hemoglobin 28.1 L Mean Corpuscular Hemoglobin Concent 32.3 Red Cell Distribution Width 16.5 H Platelet Count 164 Mean Platelet Volume 11.5 H Neutrophils % 84.4 H Lymphocytes % 8.5 L Monocytes % 5.7 Eosinophils % 0.6 Basophils % 0.3 Nucleated Red Blood Cells % 0.0 Neutrophils # 8.8 H Lymphocytes # 0.9 Monocytes # 0.6 Eosinophils # 0.1 Basophils # 0.0 Nucleated Red Blood Cells # 0.0 Sodium Level 131 L Potassium Level 3.9 Chloride Level 95 L Carbon Dioxide Level 31 Anion Gap 9 Blood Urea Nitrogen 10 Creatinine 0.50 L Glucose Level 98 Calcium Level 8.7 Medications Medications Current Medications Ondansetron HCl (Zofran Inj) 4 mg Q6H PRN IV NAUSEA AND/OR VOMITING Last administered on 05/17/16 11:19; Admin Dose 4 MG; Start 04/11/16 at 22:30 Acetaminophen (Tylenol Tab) 650 mg Q6H PRN PO PAIN LEVEL 1-3 OR FEVER; Start at 22:30 Morphine Sulfate (morphine) 2 mg Q4H PRN IV PAIN LEVEL 7-10 Last administered on 05/18/16 06:42; Admin Dose 2 MG; Start 04/11/16 at 22:30 Ascorbic Acid (Vitamin C) 500 mg DAILY GTB Last administered on 05/11/16 09:13 ; Admin Dose 500 MG; Start 04/12/16 at 09:00 Bisacodyl (Dulcolax) 10 mg DAILY PRN PO CONSTIPATION; Start 04/11/16 at 22:30 Chlorhexidine Gluconate (Peridex) 15 ml BID MM Last administered on 05/17/16 22:54; Admin Dose 15 ML; Start 04/12/16 at 09:00 Ferrous Sulfate (Feosol Liquid Cup) 300 mg BID GTB Last administered on 22:09; Admin Dose 300 MG; Start 04/12/16 at 09:00 Acetaminophen/ Hydrocodone Bitart ([place] (5/325)) 1 tab Q4 PRN GTB PAIN LEVEL 6 -10; Start 04/11/16 at 22:30 Lactulose (Enulose) 20 gm DAILY GTB Last administered on 05/11/16 09:12; Admin Dose 20 GM; Start 04/12/16 at 09:00 Quetiapine Fumarate (Seroquel) 25 mg BID@ GTB Last administered on 17:33; Admin Dose 25 MG; Start 04/12/16 at 09:00 Quetiapine Fumarate (Seroquel) 200 mg HS GTB Last administered on 05/10/16 21: 28; Admin Dose 200 MG; Start 04/12/16 at 21:00 Senna (Senokot) 1 tab QHS GTB Last administered on 05/11/16 22:09; Admin Dose 1 TAB; Start 04/12/16 at 21:00 Sodium Biphosphate/ Sodium Phosphate (Fleet Enema Pediatric) 66.6 ml DAILY PRN [place] CONSTIPATION; Start 04/11/16 at 22:30 Thiamine HCl (Vitamin B1) 100 mg DAILY GTB Last administered on 05/11/16 09:13 ; Admin Dose 100 MG; Start 04/12/16 at 09:00 Calcium Carbonate (Tums) 500 mg DAILY GTB Last administered on 05/11/16 09:13 ; Admin Dose 500 MG; Start 04/12/16 at 09:00 Multivitamins/ Minerals (Theragran-M) 1 tab DAILY PO Last administered on 09:13; Admin Dose 1 TAB; Start 04/12/16 at 09:00 Hydralazine HCl (Apresoline) 10 mg Q6H PRN IV SBP >160 Last administered on 16:38; Admin Dose 10 MG; Start 04/12/16 at 12:30 Famotidine (Pepcid) 20 mg Q12 GTB Last administered on 05/11/16 22:09; Admin Dose 20 MG; Start 04/19/16 at 21:00 Clonidine (Catapres) 0.1 mg Q6H PRN PO ELEVATED BLOOD PRESSURE; Start 04/24/16 at 23:30 Metoprolol Tartrate (Lopressor) 5 mg Q4H PRN IV PRN HR>110 Hold SBP<100; Start 04/28/16 at 13:30 Metoprolol Tartrate (Lopressor) 25 mg BID PO Last administered on 04/29/16 21: 29; Admin Dose 25 MG; Start 04/29/16 at 21:00; Status Future Hold Lorazepam (Ativan) 1 mg Q6 GTB Last administered on 05/12/16 03:11; Admin Dose 1 MG; Start 05/02/16 at 00:00 Aspirin (Aspirin) 81 mg DAILY PO Last administered on 05/11/16 09:13; Admin Dose 81 MG; Start 05/02/16 at 14:30 Chlordiazepoxide (Librium) 10 mg TID PO Last administered on 05/17/16 10:11; Admin Dose 10 MG; Start 05/04/16 at 09:00 Acetaminophen (Tylenol Liquid) 650 mg Q6H PRN GTB FEVER >101; Start 05/06/16 at 11:30 Furosemide (Lasix) 20 mg BID IV Last administered on 05/17/16 22:54; Admin Dose 20 MG; Start 05/06/16 at 21:00 Benazepril HCl 10 mg 10 mg DAILY PO ; Start 05/13/16 at 09:00 Potassium Chloride/Dextrose/ Sod Cl (D5-1/2ns + KCl 20 Meq) 1,000 ml @ 70 mls/ hr [id number] IV Last administered on 05/17/16 18:08; Admin Dose 70 MLS/HR; Start 05/12/16 at 19:00 Clonidine HCl (Catapres-Tts 1 Patch) 1 patch Q7D TRANSDERM Last administered on 05/13/16 15:28; Admin Dose 1 PATCH; Start 05/13/16 at 13:00 Hydralazine HCl (Apresoline) 10 mg Q6H PRN IV SBP>170; Start 05/13/16 at 13:00 Lorazepam (Ativan) 2 mg Q4 PRN IV AGITATION Last administered on 05/18/16 03: 42; Admin Dose 2 MG; Start 05/16/16 at 16:00 MOSHE GARCÍA MD May 18, 2016 09:19
[2016-05-18] MEDS: D5W-0.45 NACL + KCL 20 MEQ 1,000 ML IV SCH (09:48)
[2016-05-18] MEDS: CHLORHEXIDINE GLUCONATE 15 ML UD CUP MM SCH ×2 (09:50→22:06)
[2016-05-18] MEDS: FUROSEMIDE 20 MG INJ IV SCH ×2 (09:50→22:06)
--- NOTE | 2016-05-18 11:00 | CONS ---
Date/Time of Note Date/Time of Note DATE: 05/18/16 TIME: 10:57 Assessment/Plan Assessment/Plan Additional Assessment/Plan Ventilator settings; AC of 12, tidal volume 450, PEEP of 5, 30% FiO2. Assessment recommendations; 1. Patient admitted for pneumonia initially improved but then patient developed bilateral aspiration pneumonia with again significant clinical and radiological improvement. Patient off antibiotics now. 2. Hypercapnic respiratory failure, not requiring invasive mechanical ventilation. 3. Paraplegia. 4. Alcoholic encephalopathy. Continue current treatment. [facility] awaiting [facility] Consultation Date/Type/Reason Admit Date/Time Apr 11, 2016 at 22:13 Initial Consult Date 04/12/16 Type of Consultation: pulmonary Referring Provider: ANNETTA AGUILAR MD 24 HR Interval Summary Free Text/Dictation Patient condition is stable. Remains awake and alert. Still exhibiting signs of alcoholic encephalopathy requiring wrist restraints. Has remained hemodynamically stable. Exam; elderly male, on ventilator via tracheostomy currently in no distress. Exam/Review of Systems Vital Signs Vitals Vital Signs Date Time Temp Pulse Resp B/P Pulse Ox O2 Delivery O2 Flow Rate FiO2 05/18/16 10:00 97.5 82 20 122/55 95 Mechanical Ventilator 05/18/16 05:43 30 Intake and Output 05/17/16 05/17/16 05/18/16 15:00 23:00 07:00 Intake Total 490 ml 280 ml 840 ml Output Total 800 ml 400 ml Balance 490 ml -520 ml 440 ml Exam HEENT examination; supple neck, no JVD. No lymphadenopathy. Midline trachea. No thyromegaly. Tracheostomy in place. Patient upper jaw is edentulous. Pupils are midsize reactive to light. Chest examination; clear to auscultation. S1-S2 audible, no murmurs. Regular rhythm. Abdomen examination; soft, no organomegaly. Nontender. Bowel sounds audible. There is a dressing applied over epigastric area. Extremity examination; no peripheral edema. PER DIEM CLERK examination; patient is awake, alert. Follows simple commands. Has stable paraplegia. Results Result Diagram: 05/18/16 0555 05/18/16 0555 Results 24 hrs Laboratory Tests Test 05/18/16 05:55 White Blood Count 10.4 # Red Blood Count 3.63 L Hemoglobin 10.2 L Hematocrit 31.6 L Mean Corpuscular Volume 87.1 Mean Corpuscular Hemoglobin 28.1 L Mean Corpuscular Hemoglobin Concent 32.3 Red Cell Distribution Width 16.5 H Platelet Count 164 Mean Platelet Volume 11.5 H Neutrophils % 84.4 H Lymphocytes % 8.5 L Monocytes % 5.7 Eosinophils % 0.6 Basophils % 0.3 Nucleated Red Blood Cells % 0.0 Neutrophils # 8.8 H Lymphocytes # 0.9 Monocytes # 0.6 Eosinophils # 0.1 Basophils # 0.0 Nucleated Red Blood Cells # 0.0 Sodium Level 131 L Potassium Level 3.9 Chloride Level 95 L Carbon Dioxide Level 31 Anion Gap 9 Blood Urea Nitrogen 10 Creatinine 0.50 L Glucose Level 98 Calcium Level 8.7 Medications Medications Current Medications Ondansetron HCl (Zofran Inj) 4 mg Q6H PRN IV NAUSEA AND/OR VOMITING Last administered on 05/17/16 11:19; Admin Dose 4 MG; Start 04/11/16 at 22:30 Acetaminophen (Tylenol Tab) 650 mg Q6H PRN PO PAIN LEVEL 1-3 OR FEVER; Start at 22:30 Morphine Sulfate (morphine) 2 mg Q4H PRN IV PAIN LEVEL 7-10 Last administered on 05/18/16 06:42; Admin Dose 2 MG; Start 04/11/16 at 22:30 Ascorbic Acid (Vitamin C) 500 mg DAILY GTB Last administered on 05/11/16 09:13 ; Admin Dose 500 MG; Start 04/12/16 at 09:00 Bisacodyl (Dulcolax) 10 mg DAILY PRN PO CONSTIPATION; Start 04/11/16 at 22:30 Chlorhexidine Gluconate (Peridex) 15 ml BID MM Last administered on 05/18/16 09:50; Admin Dose 15 ML; Start 04/12/16 at 09:00 Ferrous Sulfate (Feosol Liquid Cup) 300 mg BID GTB Last administered on 22:09; Admin Dose 300 MG; Start 04/12/16 at 09:00 Acetaminophen/ Hydrocodone Bitart ([place] (5/325)) 1 tab Q4 PRN GTB PAIN LEVEL 6 -10; Start 04/11/16 at 22:30 Lactulose (Enulose) 20 gm DAILY GTB Last administered on 05/11/16 09:12; Admin Dose 20 GM; Start 04/12/16 at 09:00 Quetiapine Fumarate (Seroquel) 25 mg BID@ GTB Last administered on 17:33; Admin Dose 25 MG; Start 04/12/16 at 09:00 Quetiapine Fumarate (Seroquel) 200 mg HS GTB Last administered on 05/10/16 21: 28; Admin Dose 200 MG; Start 04/12/16 at 21:00 Senna (Senokot) 1 tab QHS GTB Last administered on 05/11/16 22:09; Admin Dose 1 TAB; Start 04/12/16 at 21:00 Sodium Biphosphate/ Sodium Phosphate (Fleet Enema Pediatric) 66.6 ml DAILY PRN [place] CONSTIPATION; Start 04/11/16 at 22:30 Thiamine HCl (Vitamin B1) 100 mg DAILY GTB Last administered on 05/11/16 09:13 ; Admin Dose 100 MG; Start 04/12/16 at 09:00 Calcium Carbonate (Tums) 500 mg DAILY GTB Last administered on 05/11/16 09:13 ; Admin Dose 500 MG; Start 04/12/16 at 09:00 Multivitamins/ Minerals (Theragran-M) 1 tab DAILY PO Last administered on 09:13; Admin Dose 1 TAB; Start 04/12/16 at 09:00 Hydralazine HCl (Apresoline) 10 mg Q6H PRN IV SBP >160 Last administered on 16:38; Admin Dose 10 MG; Start 04/12/16 at 12:30 Famotidine (Pepcid) 20 mg Q12 GTB Last administered on 05/11/16 22:09; Admin Dose 20 MG; Start 04/19/16 at 21:00 Clonidine (Catapres) 0.1 mg Q6H PRN PO ELEVATED BLOOD PRESSURE; Start 04/24/16 at 23:30 Metoprolol Tartrate (Lopressor) 5 mg Q4H PRN IV PRN HR>110 Hold SBP<100; Start 04/28/16 at 13:30 Metoprolol Tartrate (Lopressor) 25 mg BID PO Last administered on 04/29/16 21: 29; Admin Dose 25 MG; Start 04/29/16 at 21:00; Status Future Hold Lorazepam (Ativan) 1 mg Q6 GTB Last administered on 05/12/16 03:11; Admin Dose 1 MG; Start 05/02/16 at 00:00 Aspirin (Aspirin) 81 mg DAILY PO Last administered on 05/11/16 09:13; Admin Dose 81 MG; Start 05/02/16 at 14:30 Chlordiazepoxide (Librium) 10 mg TID PO Last administered on 05/17/16 10:11; Admin Dose 10 MG; Start 05/04/16 at 09:00 Acetaminophen (Tylenol Liquid) 650 mg Q6H PRN GTB FEVER >101; Start 05/06/16 at 11:30 Furosemide (Lasix) 20 mg BID IV Last administered on 05/18/16 09:50; Admin Dose 20 MG; Start 05/06/16 at 21:00 Benazepril HCl 10 mg 10 mg DAILY PO ; Start 05/13/16 at 09:00 Potassium Chloride/Dextrose/ Sod Cl (D5-1/2ns + KCl 20 Meq) 1,000 ml @ 70 mls/ hr [id number] IV Last administered on 05/18/16 09:48; Admin Dose 70 MLS/HR; Start 05/12/16 at 19:00 Clonidine HCl (Catapres-Tts 1 Patch) 1 patch Q7D TRANSDERM Last administered on 05/13/16 15:28; Admin Dose 1 PATCH; Start 05/13/16 at 13:00 Hydralazine HCl (Apresoline) 10 mg Q6H PRN IV SBP>170; Start 05/13/16 at 13:00 Lorazepam (Ativan) 2 mg Q4 PRN IV AGITATION Last administered on 05/18/16 03: 42; Admin Dose 2 MG; Start 05/16/16 at 16:00 KATHERYN LAWTON May 18, 2016 11:00
[2016-05-18 12:15] LABS: AADO2 Arterial 48.4 mmHg (7.0-24.0); Allen Test ACCEPTAB; Arterial Base Excess 3.7 mmol/L (-3.0-3); Arterial COHb 0 % (0.0-3.0); Arterial Fraction of Oxyhgb 77.5 % (93.0-99.0); Arterial HCO3 29.3 mmol/L (22.0-26.0); Arterial MetHb 0.5 % (0.0-1.5); Arterial Total Hemglobin 11.7 g/dl (12.0-18.0); MODE ROOM AIR
--- NOTE | 2016-05-18 18:32 | PN ---
Date/Time of Note Date/Time of Note DATE: 05/18/16 TIME: 18:30 Assessment/Plan VTE Prophylaxis VTE Prophylaxis Intervention: SCD's Lines/Catheters IV Catheter Type (from [facility]): PICC Line Central line still needed: Yes Urinary Cath still in place: Yes (Condom catheter) Reason Cath still needed: urinary retention Assessment/Plan Chief Complaint/Hosp Course ASSESSMENT AND PLAN: -Bleeding from tracheostomy site, resolved. -Pancytopenia. Dr Gaona is following in hematology consultation. -Coagulopathy, status post vitamin K, Lovenox is held - NSTEMI, continue aspirin and Lovenox. Dr. Espitia is following patient in cardiology consultation. - Atrial fibrillation with rapid ventricular response. Continue metoprolol. Continue telemetry monitoring. - Bilateral pleural effusions, status post right sided thoracentesis. - Acute hypoxic respiratory failure. Dr. Anderson is following in pulmonology consultation. Continue ventilatory support and bronchodilators. - Possible healthcare-acquired left lower lung pneumonia versus aspiration. Continue antibiotics per ID. Dr. Rojas is following an infection disease consultation. - E. coli ESBL urinary tract infection, status post treatment. - Sepsis with Ecoli ESBL bacteremia 2 UTI, resolved. - Dysphagia, with G-tube. Status post G-tube removal by patient. Status post G-tube placement by Dr. Marcus 05/10, currently DC'd by patient. - History of chronic respiratory failure with tracheostomy. - Benign prostatic hypertrophy. - Schizoaffective disorder. Continue Seroquel and Ativan as needed for agitation. Continue Pepcid for peptic ulcer disease prophylaxis. Further recommendations based on clinical course. Plan of care discussed with Dr. Colunga. Problems: Subjective 24 Hr Interval Summary Free Text/Dictation Patient status post speech therapy evaluation, considered high risk for diet, patient remains hemodynamically stable. Exam/Review of Systems Vital Signs Vitals Vital Signs Date Time Temp Pulse Resp B/P Pulse Ox O2 Delivery O2 Flow Rate FiO2 05/18/16 17:19 71 19 99 30 05/18/16 15:39 98.0 144/75 05/18/16 14:00 Mechanical Ventilator Intake and Output 05/17/16 05/17/16 05/18/16 15:00 23:00 07:00 Intake Total 490 ml 280 ml 840 ml Output Total 800 ml 400 ml Balance 490 ml -520 ml 440 ml Exam GENERAL: A well-developed, cachectic gentleman, on ventilatory support via tracheostomy. HEENT: Head is atraumatic, normocephalic. LYDIA. NECK: Supple, with tracheostomy at the base of the neck. LUNGS: Diminished at the bases. Patient has scattered severe rhonchi bilaterally. CARDIOVASCULAR: Normal S1, S2. No murmurs, gallops, clicks, rubs noted. ABDOMEN: Flat, soft, nondistended, nontender. Bowel sounds present. EXTREMITIES: Contractured. There is no edema, clubbing, cyanosis. Pulses equal bilaterally, 2+. SKIN: There is no rash, petechiae noted. NEUROLOGIC: Awake alert, with intermittent periods of confusion Results Result Diagram: 05/18/16 0555 05/18/16 0555 Results 24 hrs Laboratory Tests Test 05/18/16 05:55 05/18/16 12:02 White Blood Count 10.4 # Red Blood Count 3.63 L Hemoglobin 10.2 L Hematocrit 31.6 L Mean Corpuscular Volume 87.1 Mean Corpuscular Hemoglobin 28.1 L Mean Corpuscular Hemoglobin Concent 32.3 Red Cell Distribution Width 16.5 H Platelet Count 164 Mean Platelet Volume 11.5 H Neutrophils % 84.4 H Lymphocytes % 8.5 L Monocytes % 5.7 Eosinophils % 0.6 Basophils % 0.3 Nucleated Red Blood Cells % 0.0 Neutrophils # 8.8 H Lymphocytes # 0.9 Monocytes # 0.6 Eosinophils # 0.1 Basophils # 0.0 Nucleated Red Blood Cells # 0.0 Sodium Level 131 L Potassium Level 3.9 Chloride Level 95 L Carbon Dioxide Level 31 Anion Gap 9 Blood Urea Nitrogen 10 Creatinine 0.50 L Glucose Level 98 Calcium Level 8.7 Blood Gas Specimen Source Blood arterial Arterial Blood Date Drawn 05/18/2016 12:02:58 PM Arterial Blood pH (Temp corrected) 7.398 Arterial Blood pCO2 (Temp correct) 48.6 H Arterial Blood pO2 (Temp corrected) 43.1 *L Arterial Blood HCO3 29.3 H Arterial Blood Base Excess 3.7 H Arterial Blood Oxygen Saturation 77.9 L Vishal Test ACCEPTAB Arterial Blood Gas Puncture Site Right Radial Arterial Blood Carboxyhemoglobin 0 Arterial Blood Methemoglobin 0.5 Blood Gas A-a O2 Differential 48.4 H Oxyhemoglobin Percent 77.5 L Total Hemoglobin 11.7 L Blood Gas Temperature 37.0 Blood Gas Modality ROOM AIR FiO2 21.0 Blood Gas Critical Value Read Back Cb WATSON RN Blood Gas Notified Whom JLD Blood Gas Notified Time 05/18/2016 12:14:35 PM Medications Medications Current Medications Ondansetron HCl (Zofran Inj) 4 mg Q6H PRN IV NAUSEA AND/OR VOMITING Last administered on 05/17/16 11:19; Admin Dose 4 MG; Start 04/11/16 at 22:30 Acetaminophen (Tylenol Tab) 650 mg Q6H PRN PO PAIN LEVEL 1-3 OR FEVER; Start at 22:30 Morphine Sulfate (morphine) 2 mg Q4H PRN IV PAIN LEVEL 7-10 Last administered on 05/18/16 11:34; Admin Dose 2 MG; Start 04/11/16 at 22:30 Ascorbic Acid (Vitamin C) 500 mg DAILY GTB Last administered on 05/11/16 09:13 ; Admin Dose 500 MG; Start 04/12/16 at 09:00 Bisacodyl (Dulcolax) 10 mg DAILY PRN PO CONSTIPATION; Start 04/11/16 at 22:30 Chlorhexidine Gluconate (Peridex) 15 ml BID MM Last administered on 05/18/16 09:50; Admin Dose 15 ML; Start 04/12/16 at 09:00 Ferrous Sulfate (Feosol Liquid Cup) 300 mg BID GTB Last administered on 22:09; Admin Dose 300 MG; Start 04/12/16 at 09:00 Acetaminophen/ Hydrocodone Bitart ([place] (5/325)) 1 tab Q4 PRN GTB PAIN LEVEL 6 -10; Start 04/11/16 at 22:30 Lactulose (Enulose) 20 gm DAILY GTB Last administered on 05/11/16 09:12; Admin Dose 20 GM; Start 04/12/16 at 09:00 Quetiapine Fumarate (Seroquel) 25 mg BID@ GTB Last administered on 17:33; Admin Dose 25 MG; Start 04/12/16 at 09:00 Quetiapine Fumarate (Seroquel) 200 mg HS GTB Last administered on 05/10/16 21: 28; Admin Dose 200 MG; Start 04/12/16 at 21:00 Senna (Senokot) 1 tab QHS GTB Last administered on 05/11/16 22:09; Admin Dose 1 TAB; Start 04/12/16 at 21:00 Sodium Biphosphate/ Sodium Phosphate (Fleet Enema Pediatric) 66.6 ml DAILY PRN [place] CONSTIPATION; Start 04/11/16 at 22:30 Thiamine HCl (Vitamin B1) 100 mg DAILY GTB Last administered on 05/11/16 09:13 ; Admin Dose 100 MG; Start 04/12/16 at 09:00 Calcium Carbonate (Tums) 500 mg DAILY GTB Last administered on 05/11/16 09:13 ; Admin Dose 500 MG; Start 04/12/16 at 09:00 Multivitamins/ Minerals (Theragran-M) 1 tab DAILY PO Last administered on 09:13; Admin Dose 1 TAB; Start 04/12/16 at 09:00 Hydralazine HCl (Apresoline) 10 mg Q6H PRN IV SBP >160 Last administered on 16:38; Admin Dose 10 MG; Start 04/12/16 at 12:30 Famotidine (Pepcid) 20 mg Q12 GTB Last administered on 05/11/16 22:09; Admin Dose 20 MG; Start 04/19/16 at 21:00 Clonidine (Catapres) 0.1 mg Q6H PRN PO ELEVATED BLOOD PRESSURE; Start 04/24/16 at 23:30 Metoprolol Tartrate (Lopressor) 5 mg Q4H PRN IV PRN HR>110 Hold SBP<100; Start 04/28/16 at 13:30 Metoprolol Tartrate (Lopressor) 25 mg BID PO Last administered on 04/29/16 21: 29; Admin Dose 25 MG; Start 04/29/16 at 21:00; Status Future Hold Lorazepam (Ativan) 1 mg Q6 GTB Last administered on 05/12/16 03:11; Admin Dose 1 MG; Start 05/02/16 at 00:00 Aspirin (Aspirin) 81 mg DAILY PO Last administered on 05/11/16 09:13; Admin Dose 81 MG; Start 05/02/16 at 14:30 Chlordiazepoxide (Librium) 10 mg TID PO Last administered on 3/27/17at 10:11; Admin Dose 10 MG; Start 05/04/16 at 09:00 Acetaminophen (Tylenol Liquid) 650 mg Q6H PRN GTB FEVER >101; Start 05/06/16 at 11:30 Furosemide (Lasix) 20 mg BID IV Last administered on 05/18/16 09:50; Admin Dose 20 MG; Start 05/06/16 at 21:00 Benazepril HCl 10 mg 10 mg DAILY PO ; Start 05/13/16 at 09:00 Potassium Chloride/Dextrose/ Sod Cl (D5-1/2ns + KCl 20 Meq) 1,000 ml @ 70 mls/ hr [id number] IV Last administered on 05/18/16 09:48; Admin Dose 70 MLS/HR; Start 05/12/16 at 19:00 Clonidine HCl (Catapres-Tts 1 Patch) 1 patch Q7D TRANSDERM Last administered on 05/13/16 15:28; Admin Dose 1 PATCH; Start 05/13/16 at 13:00 Hydralazine HCl (Apresoline) 10 mg Q6H PRN IV SBP>170; Start 05/13/16 at 13:00 Lorazepam (Ativan) 2 mg Q4 PRN IV AGITATION Last administered on 05/18/16 03: 42; Admin Dose 2 MG; Start 05/16/16 at 16:00 SHELBY BUNCH May 18, 2016 18:32
[2016-05-18] MEDS: QUETIAPINE 100 MG TAB GTB SCH (21:00)
[2016-05-18] MEDS: SENNA TAB GTB SCH (21:00)
[2016-05-18 21:53] LABS: B2 GLYCOPROTEIN I AB (IGA) <9 SAU (< OR = 20); B2 GLYCOPROTEIN I AB (IGG) <9 SGU (< OR = 20); B2 GLYCOPROTEIN I AB (IGM) <9 SMU (< OR = 20)
[2016-05-18] MEDS: D5-NS + KCL 20 MEQ 1,000 ML IV SCH (22:05)
[2016-05-19] VITALS (35 sets, daily range): BP systolic 115–162; BP diastolic 65–105; PULSE 35–88; RESP 12–24
[2016-05-19] MEDS: ALBUTEROL HFA 8 GM INHALER INH SCH ×4 (01:26→20:01)
[2016-05-19] MEDS: IPRATROPIUM (HFA) 12.9 GM INHALER INH SCH ×4 (01:26→20:01)
[2016-05-19] MEDS: morphine 2 MG INJ IV PRN ×2 (02:53→13:42)
[2016-05-19] MEDS: LORAZEPAM 1 MG TAB GTB SCH ×4 (05:21→18:00)
[2016-05-19 06:47] LABS: ADD SCAN DIFF NO
[2016-05-19 06:58] LABS: BASOPHILS % 0.3 % (0.0-2.0); EOSINOPHILS % 0.5 % (0.0-7.0); HEMATOCRIT 30.2 % (42.0-52.0); HEMOGLOBIN 9.7 g/dl (14.0-18.0); LYMPHOCYTES # 0.9 10^3/ul (0.8-2.9); MEAN CORPUSCULAR HEMOGLOBIN 27.6 pg (29.0-33.0); MEAN CORPUSCULAR HGB CONC 32.1 g/dl (32.0-37.0); MEAN CORPUSCULAR VOLUME 85.8 fl (82.0-101.0); MONOCYTE # 0.5 10^3/ul (0.3-0.9); MONOCYTES % 8.7 % (0.0-11.0); NEUTROPHIL # 4.3 10^3/ul (1.6-7.5); NEUTROPHILS % 74.2 % (39.0-77.0); PLATELET COUNT 166 10^3/UL (140-415); RED BLOOD COUNT 3.52 10^6/ul (4.70-6.10); RED CELL DISTRIBUTION WIDTH 16.8 % (11.5-14.5); WHITE BLOOD COUNT 5.7 10^3/ul (4.8-10.8)
[2016-05-19 07:23] LABS: CREATININE 0.55 mg/dl (0.61-1.24); POTASSIUM 4.1 mmol/L (3.5-5.1)
[2016-05-19 07:24] LABS: CALCIUM 8.9 mg/dl (8.4-10.2)
[2016-05-19] MEDS: CHLORDIAZEPOXIDE 5 MG CAP PO SCH ×3 (09:00→21:00)
[2016-05-19] MEDS: CHLORHEXIDINE GLUCONATE 15 ML UD CUP MM SCH ×2 (09:00→21:06)
[2016-05-19] MEDS: FERROUS SULFATE 60 MG/ML 5ML CUP GTB SCH ×2 (09:00→21:00)
[2016-05-19] MEDS: BENAZEPRIL 10 MG TAB PO SCH (09:00)
[2016-05-19] MEDS: LACTULOSE 30ML CUP GTB SCH (09:00)
[2016-05-19] MEDS: ASPIRIN 81 MG TAB PO SCH (09:00)
[2016-05-19] MEDS: ASCORBIC ACID 500 MG TAB GTB SCH (09:00)
[2016-05-19] MEDS: FAMOTIDINE 20 MG TAB GTB SCH ×2 (09:00→21:00)
[2016-05-19] MEDS: QUETIAPINE 25 MG TAB GTB SCH ×2 (09:00→17:00)
[2016-05-19] MEDS: FUROSEMIDE 20 MG INJ IV SCH ×2 (09:00→21:07)
[2016-05-19] MEDS: MULTIVITAMINS/MINERALS TAB PO SCH (09:00)
[2016-05-19] MEDS: THIAMINE 100 MG TAB GTB SCH (09:00)
[2016-05-19] MEDS: CALCIUM CARBONATE 500 MG CHEW TAB GTB SCH (09:00)
[2016-05-19] MEDS: D5-NS + KCL 20 MEQ 1,000 ML IV SCH ×2 (09:18→15:10)
--- NOTE | 2016-05-19 11:17 | CONS ---
Date/Time of Note Date/Time of Note DATE: 05/19/16 TIME: 11:16 Assessment/Plan Assessment/Plan Chief Complaint/Hosp Course 65 up male with acute hypoxic respiratory failure being admitted for sepsis secondary to ESBL bacteremia. Pt had a worsening normocytic anemia that was likely secondary to his underlying sepsis and antibiotic use. Pt is now off antibiotic and Hg has remained stable. PT had a bleeding trach site and found with and elevated PTT to 85. Pt was given SQ Vitamin K. He is no longer bleeding and PTT has decreased to 50's # Anemia -HG stable > 10 -continue to monitor Hg. if < 8 will consider transfusion. CBC is stable -s/p 5 days of V iron. now on po iron # Thrombocytopenia -likely secondary to sepsis and antibiotics. platelets are slowly improving # Bleeding trach -resolved -not coagulopathic. PTT still elevated but patient is positive for a lupus anticoagulant #Pneumonia -currently off antibiotics Approximately 40 min were spent at patient's bedside and in coordination of his care Problems: Consultation Date/Type/Reason Admit Date/Time Apr 11, 2016 at 22:13 Initial Consult Date 04/21/16 Type of Consultation: hematology Reason for Consultation anemia Referring Provider: ANNETTA AGUILAR MD 24 HR Interval Summary Free Text/Dictation Hg stable around 10. no signs of bleeding Exam/Review of Systems Vital Signs Vitals Vital Signs Date Time Temp Pulse Resp B/P Pulse Ox O2 Delivery O2 Flow Rate FiO2 05/19/16 09:22 80 12 98 30 05/19/16 07:27 97.8 150/91 05/19/16 02:00 Mechanical Ventilator Intake and Output 05/18/16 05/18/16 05/19/16 15:00 23:00 07:00 Intake Total 750 ml Output Total 400 ml 350 ml Balance -400 ml 400 ml Exam Constitutional: alert, frail, oriented Head: atraumatic, normocephalic Eyes: nl conjunctiva ENMT: nl external ears & nose, other (trach in place) Neck: supple Respiratory: clear to auscultation Cardiovascular: regular rate and rhythm Gastrointestinal: soft Musculoskeletal: nl extremities to inspection, nl gait and stance Results Result Diagram: 05/19/16 0635 05/19/16 0635 Results 24 hrs Laboratory Tests Test 05/18/16 12:02 05/19/16 06:35 Blood Gas Specimen Source Blood arterial Arterial Blood Date Drawn 05/18/2016 12:02:58 PM Arterial Blood pH (Temp corrected) 7.398 Arterial Blood pCO2 (Temp correct) 48.6 H Arterial Blood pO2 (Temp corrected) 43.1 *L Arterial Blood HCO3 29.3 H Arterial Blood Base Excess 3.7 H Arterial Blood Oxygen Saturation 77.9 L Vishal Test ACCEPTAB Arterial Blood Gas Puncture Site Right Radial Arterial Blood Carboxyhemoglobin 0 Arterial Blood Methemoglobin 0.5 Blood Gas A-a O2 Differential 48.4 H Oxyhemoglobin Percent 77.5 L Total Hemoglobin 11.7 L Blood Gas Temperature 37.0 Blood Gas Modality ROOM AIR FiO2 21.0 Blood Gas Critical Value Read Back S SHIRLEY RN Blood Gas Notified Whom JLD Blood Gas Notified Time 05/18/2016 12:14:35 PM White Blood Count 5.7 # Red Blood Count 3.52 L Hemoglobin 9.7 L Hematocrit 30.2 L Mean Corpuscular Volume 85.8 Mean Corpuscular Hemoglobin 27.6 L Mean Corpuscular Hemoglobin Concent 32.1 Red Cell Distribution Width 16.8 H Platelet Count 166 Mean Platelet Volume 11.0 H Neutrophils % 74.2 Lymphocytes % 16.0 Monocytes % 8.7 Eosinophils % 0.5 Basophils % 0.3 Nucleated Red Blood Cells % 0.0 Neutrophils # 4.3 Lymphocytes # 0.9 Monocytes # 0.5 Eosinophils # 0.0 Basophils # 0.0 Nucleated Red Blood Cells # 0.0 Sodium Level 135 Potassium Level 4.1 Chloride Level 98 Carbon Dioxide Level 32 H Anion Gap 9 Blood Urea Nitrogen 9 Creatinine 0.55 L Glucose Level 80 Calcium Level 8.9 Medications Medications Current Medications Ondansetron HCl (Zofran Inj) 4 mg Q6H PRN IV NAUSEA AND/OR VOMITING Last administered on 05/17/16 11:19; Admin Dose 4 MG; Start 04/11/16 at 22:30 Acetaminophen (Tylenol Tab) 650 mg Q6H PRN PO PAIN LEVEL 1-3 OR FEVER; Start at 22:30 Morphine Sulfate (morphine) 2 mg Q4H PRN IV PAIN LEVEL 7-10 Last administered on 05/19/16 02:53; Admin Dose 2 MG; Start 04/11/16 at 22:30 Ascorbic Acid (Vitamin C) 500 mg DAILY GTB Last administered on 05/11/16 09:13 ; Admin Dose 500 MG; Start 04/12/16 at 09:00 Bisacodyl (Dulcolax) 10 mg DAILY PRN PO CONSTIPATION; Start 04/11/16 at 22:30 Chlorhexidine Gluconate (Peridex) 15 ml BID MM Last administered on 05/18/16 22:06; Admin Dose 15 ML; Start 04/12/16 at 09:00 Ferrous Sulfate (Feosol Liquid Cup) 300 mg BID GTB Last administered on 22:09; Admin Dose 300 MG; Start 04/12/16 at 09:00 Acetaminophen/ Hydrocodone Bitart ([place] (5/325)) 1 tab Q4 PRN GTB PAIN LEVEL 6 -10; Start 04/11/16 at 22:30 Lactulose (Enulose) 20 gm DAILY GTB Last administered on 05/11/16 09:12; Admin Dose 20 GM; Start 04/12/16 at 09:00 Quetiapine Fumarate (Seroquel) 25 mg BID@ GTB Last administered on 17:33; Admin Dose 25 MG; Start 04/12/16 at 09:00 Quetiapine Fumarate (Seroquel) 200 mg HS GTB Last administered on 05/10/16 21: 28; Admin Dose 200 MG; Start 04/12/16 at 21:00 Senna (Senokot) 1 tab QHS GTB Last administered on 05/11/16 22:09; Admin Dose 1 TAB; Start 04/12/16 at 21:00 Sodium Biphosphate/ Sodium Phosphate (Fleet Enema Pediatric) 66.[address] CONSTIPATION; Start 04/11/16 at 22:30 Thiamine HCl (Vitamin B1) 100 mg DAILY GTB Last administered on 05/11/16 09:13 ; Admin Dose 100 MG; Start 04/12/16 at 09:00 Calcium Carbonate (Tums) 500 mg DAILY GTB Last administered on 05/11/16 09:13 ; Admin Dose 500 MG; Start 04/12/16 at 09:00 Multivitamins/ Minerals (Theragran-M) 1 tab DAILY PO Last administered on 09:13; Admin Dose 1 TAB; Start 04/12/16 at 09:00 Hydralazine HCl (Apresoline) 10 mg Q6H PRN IV SBP >160 Last administered on 16:38; Admin Dose 10 MG; Start 04/12/16 at 12:30 Famotidine (Pepcid) 20 mg Q12 GTB Last administered on 05/11/16 22:09; Admin Dose 20 MG; Start 04/19/16 at 21:00 Clonidine (Catapres) 0.1 mg Q6H PRN PO ELEVATED BLOOD PRESSURE; Start 04/24/16 at 23:30 Metoprolol Tartrate (Lopressor) 5 mg Q4H PRN IV PRN HR>110 Hold SBP<100; Start 04/28/16 at 13:30 Metoprolol Tartrate (Lopressor) 25 mg BID PO Last administered on 04/29/16 21: 29; Admin Dose 25 MG; Start 04/29/16 at 21:00; Status Future Hold Lorazepam (Ativan) 1 mg Q6 GTB Last administered on 05/12/16 03:11; Admin Dose 1 MG; Start 05/02/16 at 00:00 Aspirin (Aspirin) 81 mg DAILY PO Last administered on 05/11/16 09:13; Admin Dose 81 MG; Start 05/02/16 at 14:30 Chlordiazepoxide (Librium) 10 mg TID PO Last administered on 05/17/16 10:11; Admin Dose 10 MG; Start 05/04/16 at 09:00 Acetaminophen (Tylenol Liquid) 650 mg Q6H PRN GTB FEVER >101; Start 05/06/16 at 11:30 Furosemide (Lasix) 20 mg BID IV Last administered on 05/18/16 22:06; Admin Dose 20 MG; Start 05/06/16 at 21:00 Benazepril HCl (Lotensin) 10 mg DAILY PO ; Start 05/13/16 at 09:00 Clonidine HCl (Catapres-Tts 1 Patch) 1 patch Q7D TRANSDERM Last administered on 05/13/16 15:28; Admin Dose 1 PATCH; Start 05/13/16 at 13:00 Hydralazine HCl (Apresoline) 10 mg Q6H PRN IV SBP>170; Start 05/13/16 at 13:00 Lorazepam 2 mg 2 mg Q4 PRN IV AGITATION Last administered on 05/18/16 03:42; Admin Dose 2 MG; Start 05/16/16 at 16:00 Potassium Chloride/Dextrose/ Sod Cl (D5-NS + KCl 20 Meq) 1,000 ml @ 70 mls/hr [id number] IV Last administered on 05/18/16 22:05; Admin Dose 70 MLS/HR; Start at 19:00 JESI MONTEMAYOR M.D. May 19, 2016 11:17
--- NOTE | 2016-05-19 12:01 | CONS ---
Date/Time of Note Date/Time of Note DATE: 05/19/16 TIME: 11:59 Assessment/Plan Assessment/Plan Additional Assessment/Plan Ventilator settings; AC of 12, tidal volume 450, PEEP of 5, 30% FiO2. Assessment recommendations; 1. Patient admitted for right-sided pneumonia with interval improvement but then developed aspiration pneumonia bilaterally with again marked clinical and radiological improvement. Off antibiotics now. 2. Chronic respiratory failure not requiring invasive mechanical ventilation due to hypercapnia. 3. Paraplegia. 4. History of alcoholic encephalopathy. Continue current treatment. Patient awaiting transfer to long-term. Consultation Date/Type/Reason Admit Date/Time Apr 11, 2016 at 22:13 Initial Consult Date 04/12/16 Type of Consultation: Pulmonary Referring Provider: ANNETTA AGUILAR MD 24 HR Interval Summary Free Text/Dictation Patient condition stable. Patient had refused mechanical ventilation yesterday however later on he agreed to it. Patient has remained hemodynamically stable. General exam; elderly male, currently in no distress awake and alert. Still exhibiting signs of alcoholic encephalopathy requiring soft restraints. He does exhibit episodes of agitation off and on. Exam/Review of Systems Vital Signs Vitals Vital Signs Date Time Temp Pulse Resp B/P Pulse Ox O2 Delivery O2 Flow Rate FiO2 05/19/16 11:29 97.8 78 18 121/80 98 05/19/16 11:22 30 05/19/16 02:00 Mechanical Ventilator Intake and Output 05/18/16 05/18/16 05/19/16 15:00 23:00 07:00 Intake Total 750 ml Output Total 400 ml 350 ml Balance -400 ml 400 ml Exam HEENT exam; supple neck, no JVD. No lymphadenopathy. Midline trachea. No thyromegaly. Trachea ostomy in place. Patient upper jaw is edentulous. Chest examination; diminished but clear breath sounds bilaterally. S1-S2 audible, no murmurs. Regular rhythm. Abdomen examination; soft, nontender. Bowel sounds audible. Extremity examination; no peripheral edema. 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 Remains awake and alert. Results Result Diagram: 05/19/16 0635 05/19/16 0635 Results 24 hrs Laboratory Tests Test 05/18/16 12:02 05/19/16 06:35 Blood Gas Specimen Source Blood arterial Arterial Blood Date Drawn 05/18/2016 12:02:58 PM Arterial Blood pH (Temp corrected) 7.398 Arterial Blood pCO2 (Temp correct) 48.6 H Arterial Blood pO2 (Temp corrected) 43.1 *L Arterial Blood HCO3 29.3 H Arterial Blood Base Excess 3.7 H Arterial Blood Oxygen Saturation 77.9 L Vishal Test ACCEPTAB Arterial Blood Gas Puncture Site Right Radial Arterial Blood Carboxyhemoglobin 0 Arterial Blood Methemoglobin 0.5 Blood Gas A-a O2 Differential 48.4 H Oxyhemoglobin Percent 77.5 L Total Hemoglobin 11.7 L Blood Gas Temperature 37.0 Blood Gas Modality ROOM AIR FiO2 21.0 Blood Gas Critical Value Read Back Cb WATSON RN Blood Gas Notified Whom JLD Blood Gas Notified Time 05/18/2016 12:14:35 PM White Blood Count 5.7 # Red Blood Count 3.52 L Hemoglobin 9.7 L Hematocrit 30.2 L Mean Corpuscular Volume 85.8 Mean Corpuscular Hemoglobin 27.6 L Mean Corpuscular Hemoglobin Concent 32.1 Red Cell Distribution Width 16.8 H Platelet Count 166 Mean Platelet Volume 11.0 H Neutrophils % 74.2 Lymphocytes % 16.0 Monocytes % 8.7 Eosinophils % 0.5 Basophils % 0.3 Nucleated Red Blood Cells % 0.0 Neutrophils # 4.3 Lymphocytes # 0.9 Monocytes # 0.5 Eosinophils # 0.0 Basophils # 0.0 Nucleated Red Blood Cells # 0.0 Sodium Level 135 Potassium Level 4.1 Chloride Level 98 Carbon Dioxide Level 32 H Anion Gap 9 Blood Urea Nitrogen 9 Creatinine 0.55 L Glucose Level 80 Calcium Level 8.9 Medications Medications Current Medications Ondansetron HCl (Zofran Inj) 4 mg Q6H PRN IV NAUSEA AND/OR VOMITING Last administered on 05/17/16 11:19; Admin Dose 4 MG; Start 04/11/16 at 22:30 Acetaminophen (Tylenol Tab) 650 mg Q6H PRN PO PAIN LEVEL 1-3 OR FEVER; Start at 22:30 Morphine Sulfate (morphine) 2 mg Q4H PRN IV PAIN LEVEL 7-10 Last administered on 05/19/16 02:53; Admin Dose 2 MG; Start 04/11/16 at 22:30 Ascorbic Acid (Vitamin C) 500 mg DAILY GTB Last administered on 05/11/16 09:13 ; Admin Dose 500 MG; Start 04/12/16 at 09:00 Bisacodyl (Dulcolax) 10 mg DAILY PRN PO CONSTIPATION; Start 04/11/16 at 22:30 Chlorhexidine Gluconate (Peridex) 15 ml BID MM Last administered on 05/18/16 22:06; Admin Dose 15 ML; Start 04/12/16 at 09:00 Ferrous Sulfate (Feosol Liquid Cup) 300 mg BID GTB Last administered on 22:09; Admin Dose 300 MG; Start 04/12/16 at 09:00 Acetaminophen/ Hydrocodone Bitart ([place] (5/325)) 1 tab Q4 PRN GTB PAIN LEVEL 6 -10; Start 04/11/16 at 22:30 Lactulose (Enulose) 20 gm DAILY GTB Last administered on 05/11/16 09:12; Admin Dose 20 GM; Start 04/12/16 at 09:00 Quetiapine Fumarate (Seroquel) 25 mg BID@ GTB Last administered on 17:33; Admin Dose 25 MG; Start 04/12/16 at 09:00 Quetiapine Fumarate (Seroquel) 200 mg HS GTB Last administered on 05/10/16 21: 28; Admin Dose 200 MG; Start 04/12/16 at 21:00 Senna (Senokot) 1 tab QHS GTB Last administered on 05/11/16 22:09; Admin Dose 1 TAB; Start 04/12/16 at 21:00 Sodium Biphosphate/ Sodium Phosphate (Fleet Enema Pediatric) 66.6 ml DAILY PRN [place] CONSTIPATION; Start 04/11/16 at 22:30 Thiamine HCl (Vitamin B1) 100 mg DAILY GTB Last administered on 05/11/16 09:13 ; Admin Dose 100 MG; Start 04/12/16 at 09:00 Calcium Carbonate (Tums) 500 mg DAILY GTB Last administered on 05/11/16 09:13 ; Admin Dose 500 MG; Start 04/12/16 at 09:00 Multivitamins/ Minerals (Theragran-M) 1 tab DAILY PO Last administered on 09:13; Admin Dose 1 TAB; Start 04/12/16 at 09:00 Hydralazine HCl (Apresoline) 10 mg Q6H PRN IV SBP >160 Last administered on 16:38; Admin Dose 10 MG; Start 04/12/16 at 12:30 Famotidine (Pepcid) 20 mg Q12 GTB Last administered on 05/11/16 22:09; Admin Dose 20 MG; Start 04/19/16 at 21:00 Clonidine (Catapres) 0.1 mg Q6H PRN PO ELEVATED BLOOD PRESSURE; Start 04/24/16 at 23:30 Metoprolol Tartrate (Lopressor) 5 mg Q4H PRN IV PRN HR>110 Hold SBP<100; Start 04/28/16 at 13:30 Metoprolol Tartrate (Lopressor) 25 mg BID PO Last administered on 04/29/16 21: 29; Admin Dose 25 MG; Start 04/29/16 at 21:00; Status Future Hold Lorazepam (Ativan) 1 mg Q6 GTB Last administered on 05/12/16 03:11; Admin Dose 1 MG; Start 05/02/16 at 00:00 Aspirin (Aspirin) 81 mg DAILY PO Last administered on 05/11/16 09:13; Admin Dose 81 MG; Start 05/02/16 at 14:30 Chlordiazepoxide (Librium) 10 mg TID PO Last administered on 05/17/16 10:11; Admin Dose 10 MG; Start 05/04/16 at 09:00 Acetaminophen (Tylenol Liquid) 650 mg Q6H PRN GTB FEVER >101; Start 05/06/16 at 11:30 Furosemide (Lasix) 20 mg BID IV Last administered on 05/18/16 22:06; Admin Dose 20 MG; Start 05/06/16 at 21:00 Benazepril HCl (Lotensin) 10 mg DAILY PO ; Start 05/13/16 at 09:00 Clonidine HCl (Catapres-Tts 1 Patch) 1 patch Q7D TRANSDERM Last administered on 05/13/16 15:28; Admin Dose 1 PATCH; Start 05/13/16 at 13:00 Hydralazine HCl (Apresoline) 10 mg Q6H PRN IV SBP>170; Start 05/13/16 at 13:00 Lorazepam 2 mg 2 mg Q4 PRN IV AGITATION Last administered on 05/18/16 03:42; Admin Dose 2 MG; Start 05/16/16 at 16:00 Potassium Chloride/Dextrose/ Sod Cl (D5-NS + KCl 20 Meq) 1,000 ml @ 70 mls/hr [id number] IV Last administered on 05/18/16t 22:05; Admin Dose 70 MLS/HR; Start at 19:00 KATHERYN LAWTON May 19, 2016 12:01
--- NOTE | 2016-05-19 13:36 | PN ---
Date/Time of Note Date/Time of Note DATE: 05/19/16 TIME: 13:30 Assessment/Plan VTE Prophylaxis VTE Prophylaxis Intervention: SCD's Lines/Catheters IV Catheter Type (from [facility]): PICC Line Central line still needed: Yes Urinary Cath still in place: Yes (Condom catheter) Reason Cath still needed: urinary retention Assessment/Plan Chief Complaint/Hosp Course ASSESSMENT AND PLAN: - Bleeding from tracheostomy site, resolved. - Pancytopenia. Dr Gaona is following in hematology consultation. - Coagulopathy, status post vitamin K, Lovenox is held - NSTEMI, continue aspirin and Lovenox. Dr. Espitia is following patient in cardiology consultation. - Atrial fibrillation with rapid ventricular response. Continue metoprolol. Continue telemetry monitoring. - Bilateral pleural effusions, status post right sided thoracentesis. - Acute hypoxic respiratory failure. Dr. Anderson is following in pulmonology consultation. Continue ventilatory support and bronchodilators. - Possible healthcare-acquired left lower lung pneumonia versus aspiration. Continue antibiotics per ID. Dr. Rojas is following an infection disease consultation. - E. coli ESBL urinary tract infection, status post treatment. - Sepsis with Ecoli ESBL bacteremia 2 UTI, resolved. - Dysphagia, with G-tube. Status post G-tube removal by patient. Status post G-tube placement by Dr. Marcus 05/10, currently DC'd by patient. - History of chronic respiratory failure with tracheostomy. - Benign prostatic hypertrophy. - Schizoaffective disorder. Continue Seroquel and Ativan as needed for agitation. Continue Pepcid for peptic ulcer disease prophylaxis. Further recommendations based on clinical course. Plan of care discussed with Dr. Colunga. Problems: Subjective 24 Hr Interval Summary Free Text/Dictation Patient remains afebrile, continued on IV fluids, no acute events overnight. Exam/Review of Systems Vital Signs Vitals Vital Signs Date Time Temp Pulse Resp B/P Pulse Ox O2 Delivery O2 Flow Rate FiO2 05/19/16 13:23 89 18 98 30 05/19/16 12:00 97.8 121/80 Mechanical Ventilator Intake and Output 05/18/16 05/18/16 05/19/16 15:00 23:00 07:00 Intake Total 750 ml Output Total 400 ml 350 ml Balance -400 ml 400 ml Exam GENERAL: A well-developed, cachectic gentleman, on ventilatory support via tracheostomy. HEENT: Head is atraumatic, normocephalic. LYDIA. NECK: Supple, with tracheostomy at the base of the neck. LUNGS: Diminished at the bases. Patient has scattered severe rhonchi bilaterally. CARDIOVASCULAR: Normal S1, S2. No murmurs, gallops, clicks, rubs noted. ABDOMEN: Flat, soft, nondistended, nontender. Bowel sounds present. EXTREMITIES: Contractured. There is no edema, clubbing, cyanosis. Pulses equal bilaterally, 2+. SKIN: There is no rash, petechiae noted. NEUROLOGIC: Awake alert, with intermittent periods of confusion Results Result Diagram: 05/19/16 0635 05/19/16 0635 Results 24 hrs Laboratory Tests Test 05/19/16 06:35 White Blood Count 5.7 # Red Blood Count 3.52 L Hemoglobin 9.7 L Hematocrit 30.2 L Mean Corpuscular Volume 85.8 Mean Corpuscular Hemoglobin 27.6 L Mean Corpuscular Hemoglobin Concent 32.1 Red Cell Distribution Width 16.8 H Platelet Count 166 Mean Platelet Volume 11.0 H Neutrophils % 74.2 Lymphocytes % 16.0 Monocytes % 8.7 Eosinophils % 0.5 Basophils % 0.3 Nucleated Red Blood Cells % 0.0 Neutrophils # 4.3 Lymphocytes # 0.9 Monocytes # 0.5 Eosinophils # 0.0 Basophils # 0.0 Nucleated Red Blood Cells # 0.0 Sodium Level 135 Potassium Level 4.1 Chloride Level 98 Carbon Dioxide Level 32 H Anion Gap 9 Blood Urea Nitrogen 9 Creatinine 0.55 L Glucose Level 80 Calcium Level 8.9 Medications Medications Current Medications Ondansetron HCl (Zofran Inj) 4 mg Q6H PRN IV NAUSEA AND/OR VOMITING Last administered on 05/17/16 11:19; Admin Dose 4 MG; Start 04/11/16 at 22:30 Acetaminophen (Tylenol Tab) 650 mg Q6H PRN PO PAIN LEVEL 1-3 OR FEVER; Start at 22:30 Morphine Sulfate (morphine) 2 mg Q4H PRN IV PAIN LEVEL 7-10 Last administered on 05/19/16 02:53; Admin Dose 2 MG; Start 04/11/16 at 22:30 Ascorbic Acid (Vitamin C) 500 mg DAILY GTB Last administered on 05/11/16 09:13 ; Admin Dose 500 MG; Start 04/12/16 at 09:00 Bisacodyl (Dulcolax) 10 mg DAILY PRN PO CONSTIPATION; Start 04/11/16 at 22:30 Chlorhexidine Gluconate (Peridex) 15 ml BID MM Last administered on 05/18/16 22:06; Admin Dose 15 ML; Start 04/12/16 at 09:00 Ferrous Sulfate (Feosol Liquid Cup) 300 mg BID GTB Last administered on 22:09; Admin Dose 300 MG; Start 04/12/16 at 09:00 Acetaminophen/ Hydrocodone Bitart ([place] (5/325)) 1 tab Q4 PRN GTB PAIN LEVEL 6 -10; Start 04/11/16 at 22:30 Lactulose (Enulose) 20 gm DAILY GTB Last administered on 05/11/16 09:12; Admin Dose 20 GM; Start 04/12/16 at 09:00 Quetiapine Fumarate (Seroquel) 25 mg BID@ GTB Last administered on 17:33; Admin Dose 25 MG; Start 04/12/16 at 09:00 Quetiapine Fumarate (Seroquel) 200 mg HS GTB Last administered on 05/10/16 21: 28; Admin Dose 200 MG; Start 04/12/16 at 21:00 Senna (Senokot) 1 tab QHS GTB Last administered on 05/11/16 22:09; Admin Dose 1 TAB; Start 04/12/16 at 21:00 Sodium Biphosphate/ Sodium Phosphate (Fleet Enema Pediatric) 66.6 ml DAILY PRN [place] CONSTIPATION; Start 04/11/16 at 22:30 Thiamine HCl (Vitamin B1) 100 mg DAILY GTB Last administered on 05/11/16 09:13 ; Admin Dose 100 MG; Start 04/12/16 at 09:00 Calcium Carbonate (Tums) 500 mg DAILY GTB Last administered on 05/11/16 09:13 ; Admin Dose 500 MG; Start 04/12/16 at 09:00 Multivitamins/ Minerals (Theragran-M) 1 tab DAILY PO Last administered on 09:13; Admin Dose 1 TAB; Start 04/12/16 at 09:00 Hydralazine HCl (Apresoline) 10 mg Q6H PRN IV SBP >160 Last administered on 16:38; Admin Dose 10 MG; Start 04/12/16 at 12:30 Famotidine (Pepcid) 20 mg Q12 GTB Last administered on 05/11/16 22:09; Admin Dose 20 MG; Start 04/19/16 at 21:00 Clonidine (Catapres) 0.1 mg Q6H PRN PO ELEVATED BLOOD PRESSURE; Start 04/24/16 at 23:30 Metoprolol Tartrate (Lopressor) 5 mg Q4H PRN IV PRN HR>110 Hold SBP<100; Start 04/28/16 at 13:30 Metoprolol Tartrate (Lopressor) 25 mg BID PO Last administered on 04/29/16 21: 29; Admin Dose 25 MG; Start 04/29/16 at 21:00; Status Future Hold Lorazepam (Ativan) 1 mg Q6 GTB Last administered on 05/12/16 03:11; Admin Dose 1 MG; Start 05/02/16 at 00:00 Aspirin (Aspirin) 81 mg DAILY PO Last administered on 05/11/16 09:13; Admin Dose 81 MG; Start 05/02/16 at 14:30 Chlordiazepoxide (Librium) 10 mg TID PO Last administered on 05/17/16 10:11; Admin Dose 10 MG; Start 05/04/16 at 09:00 Acetaminophen (Tylenol Liquid) 650 mg Q6H PRN GTB FEVER >101; Start 05/06/16 at 11:30 Furosemide (Lasix) 20 mg BID IV Last administered on 05/18/16 22:06; Admin Dose 20 MG; Start 05/06/16 at 21:00 Benazepril HCl (Lotensin) 10 mg DAILY PO ; Start 05/13/16 at 09:00 Clonidine HCl (Catapres-Tts 1 Patch) 1 patch Q7D TRANSDERM Last administered on 05/13/16 15:28; Admin Dose 1 PATCH; Start 05/13/16 at 13:00 Hydralazine HCl (Apresoline) 10 mg Q6H PRN IV SBP>170; Start 05/13/16 at 13:00 Lorazepam 2 mg 2 mg Q4 PRN IV AGITATION Last administered on 05/18/16 03:42; Admin Dose 2 MG; Start 05/16/16 at 16:00 Potassium Chloride/Dextrose/ Sod Cl (D5-NS + KCl 20 Meq) 1,000 ml @ 70 mls/hr [id number] IV Last administered on 05/18/16 22:05; Admin Dose 70 MLS/HR; Start at 19:00 SHELBY BUNCH May 19, 2016 13:36
--- NOTE | 2016-05-19 13:49 | CONS ---
Date/Time of Note Date/Time of Note DATE: 05/19/16 TIME: 13:46 Assessment/Plan Assessment/Plan Chief Complaint/Hosp Course IMPRESSION: 1. Wide complex tachycardia, cardiac arrhythmia. Rule out nonsustained ventricular tachycardia.-likely c/w abberant AF-no recurrence 2. Abnormal electrocardiogram, assess for acute coronary syndrome. 3. Congestive heart failure by chest x-ray, diastolic by most recent echo acute on chronic. 4. Hypertension with current borderline Hotn s/p IVP hydralazine 5. Respiratory failure, chronic, status post tracheostomy with desat now transferred to ICU 6. Dysphagia, status post G-tube which patient pulled out/self d/c'd 7. Psychiatric disorder. 8. Urinary tract infection. 9. Hypokalemia-improved 10. Anemia. 11. Leukopenia. 12.Nstemi-no current chest pain/decreased enzymes 14. Bradycardia-improved Recc: -Tele -Continue to hold BB given prior bradycardia -Continue asa medical therapy for nstemi with currently decreased cardiac enzymes -Continue lasix diuresis and consider increase dose to improve diuresis -C discussed with patient but patient does not have clear understanding and would like to wait -LOvenox held due to trach site bleeding -Continue ACEI/clonidine TTS and follow labile BP Problems: Consultation Date/Type/Reason Admit Date/Time Apr 11, 2016 at 22:13 Initial Consult Date 04/21/16 Type of Consultation: Cardiology Reason for Consultation NSVT Referring Provider: ANNETTA AGUILAR MD Exam/Review of Systems Vital Signs Vitals Vital Signs Date Time Temp Pulse Resp B/P Pulse Ox O2 Delivery O2 Flow Rate FiO2 05/19/16 13:23 89 18 98 30 05/19/16 12:00 97.8 121/80 Mechanical Ventilator Intake and Output 05/18/16 05/18/16 05/19/16 14:59 22:59 06:59 Intake Total 750 ml Output Total 400 ml 350 ml Balance -400 ml 400 ml Exam Review of Systems: CONSTITUTIONAL: No fevers, chills. PULMONARY: trached CARDIOVASCULAR: No chest pain/palpitations GASTROINTESTINAL: No nausea/vomiting. GENITOURINARY: No hematuria/dysuria. MUSCULOSKELETAL: No myagias/arthalgias. PSYCHIATRIC: The patient denies depression. NEUROLOGIC: lethargic Constitutional: alert Psych: confusion, no complaints Head: normocephalic ENMT: mucosa pink and moist Neck: jvd (9 cm water), supple Respiratory: diminished breath sounds (at bases/B) Cardiovascular: regular rate and rhythm Gastrointestinal: non-tender, soft Musculoskeletal: muscle tone (normal) Extremities: edema (none) Neurological: other (No focal deficits) Results Result Diagram: 05/19/16 0635 05/19/16 0635 Results 24 hrs Laboratory Tests Test 05/19/16 06:35 White Blood Count 5.7 # Red Blood Count 3.52 L Hemoglobin 9.7 L Hematocrit 30.2 L Mean Corpuscular Volume 85.8 Mean Corpuscular Hemoglobin 27.6 L Mean Corpuscular Hemoglobin Concent 32.1 Red Cell Distribution Width 16.8 H Platelet Count 166 Mean Platelet Volume 11.0 H Neutrophils % 74.2 Lymphocytes % 16.0 Monocytes % 8.7 Eosinophils % 0.5 Basophils % 0.3 Nucleated Red Blood Cells % 0.0 Neutrophils # 4.3 Lymphocytes # 0.9 Monocytes # 0.5 Eosinophils # 0.0 Basophils # 0.0 Nucleated Red Blood Cells # 0.0 Sodium Level 135 Potassium Level 4.1 Chloride Level 98 Carbon Dioxide Level 32 H Anion Gap 9 Blood Urea Nitrogen 9 Creatinine 0.55 L Glucose Level 80 Calcium Level 8.9 Medications Medications Current Medications Ondansetron HCl (Zofran Inj) 4 mg Q6H PRN IV NAUSEA AND/OR VOMITING Last administered on 05/17/16 11:19; Admin Dose 4 MG; Start 04/11/16 at 22:30 Acetaminophen (Tylenol Tab) 650 mg Q6H PRN PO PAIN LEVEL 1-3 OR FEVER; Start at 22:30 Morphine Sulfate (morphine) 2 mg Q4H PRN IV PAIN LEVEL 7-10 Last administered on 05/19/16 13:42; Admin Dose 2 MG; Start 04/11/16 at 22:30 Ascorbic Acid (Vitamin C) 500 mg DAILY GTB Last administered on 05/11/16 09:13 ; Admin Dose 500 MG; Start 04/12/16 at 09:00 Bisacodyl (Dulcolax) 10 mg DAILY PRN PO CONSTIPATION; Start 04/11/16 at 22:30 Chlorhexidine Gluconate (Peridex) 15 ml BID MM Last administered on 05/18/16 22:06; Admin Dose 15 ML; Start 04/12/16 at 09:00 Ferrous Sulfate (Feosol Liquid Cup) 300 mg BID GTB Last administered on 22:09; Admin Dose 300 MG; Start 04/12/16 at 09:00 Acetaminophen/ Hydrocodone Bitart ([place] (5/325)) 1 tab Q4 PRN GTB PAIN LEVEL 6 -10; Start 04/11/16 at 22:30 Lactulose (Enulose) 20 gm DAILY GTB Last administered on 05/11/16 09:12; Admin Dose 20 GM; Start 04/12/16 at 09:00 Quetiapine Fumarate (Seroquel) 25 mg BID@ GTB Last administered on 17:33; Admin Dose 25 MG; Start 04/12/16 at 09:00 Quetiapine Fumarate (Seroquel) 200 mg HS GTB Last administered on 05/10/16 21: 28; Admin Dose 200 MG; Start 04/12/16 at 21:00 Senna (Senokot) 1 tab QHS GTB Last administered on 05/11/16 22:09; Admin Dose 1 TAB; Start 04/12/16 at 21:00 Sodium Biphosphate/ Sodium Phosphate (Fleet Enema Pediatric) 66.6 ml DAILY PRN [place] CONSTIPATION; Start 04/11/16 at 22:30 Thiamine HCl (Vitamin B1) 100 mg DAILY GTB Last administered on 05/11/16 09:13 ; Admin Dose 100 MG; Start 04/12/16 at 09:00 Calcium Carbonate (Tums) 500 mg DAILY GTB Last administered on 05/11/16 09:13 ; Admin Dose 500 MG; Start 04/12/16 at 09:00 Multivitamins/ Minerals (Theragran-M) 1 tab DAILY PO Last administered on 09:13; Admin Dose 1 TAB; Start 04/12/16 at 09:00 Hydralazine HCl (Apresoline) 10 mg Q6H PRN IV SBP >160 Last administered on 16:38; Admin Dose 10 MG; Start 04/12/16 at 12:30 Famotidine (Pepcid) 20 mg Q12 GTB Last administered on 05/11/16 22:09; Admin Dose 20 MG; Start 04/19/16 at 21:00 Clonidine (Catapres) 0.1 mg Q6H PRN PO ELEVATED BLOOD PRESSURE; Start 04/24/16 at 23:30 Metoprolol Tartrate (Lopressor) 5 mg Q4H PRN IV PRN HR>110 Hold SBP<100; Start 04/28/16 at 13:30 Metoprolol Tartrate (Lopressor) 25 mg BID PO Last administered on 04/29/16 21: 29; Admin Dose 25 MG; Start 04/29/16 at 21:00; Status Future Hold Lorazepam (Ativan) 1 mg Q6 GTB Last administered on 05/12/16 03:11; Admin Dose 1 MG; Start 05/02/16 at 00:00 Aspirin (Aspirin) 81 mg DAILY PO Last administered on 05/11/16 09:13; Admin Dose 81 MG; Start 05/02/16 at 14:30 Chlordiazepoxide (Librium) 10 mg TID PO Last administered on 05/17/16 10:11; Admin Dose 10 MG; Start 05/04/16 at 09:00 Acetaminophen (Tylenol Liquid) 650 mg Q6H PRN GTB FEVER >101; Start 05/06/16 at 11:30 Furosemide (Lasix) 20 mg BID IV Last administered on 05/18/16 22:06; Admin Dose 20 MG; Start 05/06/16 at 21:00 Benazepril HCl (Lotensin) 10 mg DAILY PO ; Start 05/13/16 at 09:00 Clonidine HCl (Catapres-Tts 1 Patch) 1 patch Q7D TRANSDERM Last administered on 05/13/16 15:28; Admin Dose 1 PATCH; Start 05/13/16 at 13:00 Hydralazine HCl (Apresoline) 10 mg Q6H PRN IV SBP>170; Start 05/13/16 at 13:00 Lorazepam 2 mg 2 mg Q4 PRN IV AGITATION Last administered on 05/18/16 03:42; Admin Dose 2 MG; Start 05/16/16 at 16:00 Potassium Chloride/Dextrose/ Sod Cl (D5-NS + KCl 20 Meq) 1,000 ml @ 70 mls/hr [id number] IV Last administered on 05/18/16 22:05; Admin Dose 70 MLS/HR; Start at 19:00 LILI BRADEN May 19, 2016 13:49
[2016-05-19] MEDS: SENNA TAB GTB SCH (21:00)
[2016-05-19] MEDS: QUETIAPINE 100 MG TAB GTB SCH (21:00)
[2016-05-20] VITALS (29 sets, daily range): BP systolic 127–158; BP diastolic 74–94; PULSE 72–102; RESP 14–33
[2016-05-20] MEDS: morphine 2 MG INJ IV PRN (00:54)
[2016-05-20] MEDS: ALBUTEROL HFA 8 GM INHALER INH SCH ×4 (01:19→19:28)
[2016-05-20] MEDS: IPRATROPIUM (HFA) 12.9 GM INHALER INH SCH ×4 (01:20→19:28)
[2016-05-20] MEDS: D5-NS + KCL 20 MEQ 1,000 ML IV SCH ×2 (05:35→19:59)
[2016-05-20] MEDS: LORAZEPAM 1 MG TAB GTB SCH ×4 (05:35→18:00)
[2016-05-20 07:06] LABS: ADD SCAN DIFF NO
[2016-05-20 07:08] LABS: BASOPHILS % 0.5 % (0.0-2.0); EOSINOPHILS % 0.2 % (0.0-7.0); HEMATOCRIT 30.4 % (42.0-52.0); HEMOGLOBIN 9.6 g/dl (14.0-18.0); LYMPHOCYTES # 0.7 10^3/ul (0.8-2.9); LYMPHOCYTES % 11.4 % (15.0-51.0); MEAN CORPUSCULAR HEMOGLOBIN 27.4 pg (29.0-33.0); MEAN CORPUSCULAR HGB CONC 31.6 g/dl (32.0-37.0); MEAN CORPUSCULAR VOLUME 86.9 fl (82.0-101.0); MEAN PLATELET VOLUME 11.9 fl (7.4-10.4); MONOCYTE # 0.5 10^3/ul (0.3-0.9); MONOCYTES % 7.4 % (0.0-11.0); NEUTROPHIL # 5.2 10^3/ul (1.6-7.5); NEUTROPHILS % 80.2 % (39.0-77.0); PLATELET COUNT 186 10^3/UL (140-415); RED CELL DISTRIBUTION WIDTH 17.1 % (11.5-14.5); WHITE BLOOD COUNT 6.5 10^3/ul (4.8-10.8)
[2016-05-20 07:19] LABS: POTASSIUM 5.1 mmol/L (3.5-5.1)
[2016-05-20 07:22] LABS: CREATININE 0.51 mg/dl (0.61-1.24)
[2016-05-20] MEDS: BENAZEPRIL 10 MG TAB PO SCH (09:00)
[2016-05-20] MEDS: FAMOTIDINE 20 MG TAB GTB SCH ×2 (09:00→21:00)
[2016-05-20] MEDS: THIAMINE 100 MG TAB GTB SCH (09:00)
[2016-05-20] MEDS: FERROUS SULFATE 60 MG/ML 5ML CUP GTB SCH ×2 (09:00→21:00)
[2016-05-20] MEDS: QUETIAPINE 25 MG TAB GTB SCH ×2 (09:00→17:00)
[2016-05-20] MEDS: MULTIVITAMINS/MINERALS TAB PO SCH (09:00)
[2016-05-20] MEDS: CHLORHEXIDINE GLUCONATE 15 ML UD CUP MM SCH ×2 (09:00→20:03)
[2016-05-20] MEDS: ASCORBIC ACID 500 MG TAB GTB SCH (09:00)
[2016-05-20] MEDS: LACTULOSE 30ML CUP GTB SCH (09:00)
[2016-05-20] MEDS: FUROSEMIDE 20 MG INJ IV SCH ×2 (09:00→20:08)
[2016-05-20] MEDS: ASPIRIN 81 MG TAB PO SCH (09:00)
[2016-05-20] MEDS: CHLORDIAZEPOXIDE 5 MG CAP PO SCH ×3 (09:00→21:00)
[2016-05-20] MEDS: CALCIUM CARBONATE 500 MG CHEW TAB GTB SCH (09:00)
--- NOTE | 2016-05-20 11:13 | CONS ---
Date/Time of Note Date/Time of Note DATE: 05/20/16 TIME: 11:12 Consult Date/Type/Reason Admit Date/Time Apr 11, 2016 at 22:13 Initial Consult Date 04/21/16 Type of Consultation: pulmonary Ordering Provider: ANNETTA AGUILAR MD Subjective Patient remains agitated continues mechanical ventilation Objective Vital Signs Date Time Temp Pulse Resp B/P Pulse Ox O2 Delivery O2 Flow Rate FiO2 05/20/16 09:10 102 25 96 30 05/20/16 07:58 98.3 156/79 05/20/16 06:00 Mechanical Ventilator Intake and Output 05/19/16 05/19/16 05/20/16 15:00 23:00 07:00 Intake Total 770 ml 700 ml Output Total 500 ml 1200 ml Balance 270 ml -500 ml Exam PHYSICAL EXAMINATION GENERAL: Elderly gentleman, chronically ill-appearing on mechanical ventilation VITAL SIGNS: see below. HEENT: Pupils equal, round, and reactive to light. Tracheostomy site clean and intact. CARDIAC: S1, S2, no added sounds or murmurs CHEST: Diminished air entry bilaterally. ABDOMEN: Mildly distended. Diminished bowel sounds EXTREMITIES: No cyanosis, clubbing edema +1 NEUROLOGIC: Generalized weakness Results/Medications Result Diagram: 05/20/16 0640 05/20/16 0640 Results 24 hrs Laboratory Tests Test 05/20/16 06:40 White Blood Count 6.5 Red Blood Count 3.50 L Hemoglobin 9.6 L Hematocrit 30.4 L Mean Corpuscular Volume 86.9 Mean Corpuscular Hemoglobin 27.4 L Mean Corpuscular Hemoglobin Concent 31.6 L Red Cell Distribution Width 17.1 H Platelet Count 186 Mean Platelet Volume 11.9 H Neutrophils % 80.2 H Lymphocytes % 11.4 L Monocytes % 7.4 Eosinophils % 0.2 Basophils % 0.5 Nucleated Red Blood Cells % 0.0 Neutrophils # 5.2 Lymphocytes # 0.7 L Monocytes # 0.5 Eosinophils # 0.0 Basophils # 0.0 Nucleated Red Blood Cells # 0.0 Sodium Level 138 Potassium Level 5.1 Chloride Level 104 Carbon Dioxide Level 28 Anion Gap 11 Blood Urea Nitrogen 8 Creatinine 0.51 L Glucose Level 358 #H Calcium Level 8.0 L Medications Current Medications Ondansetron HCl (Zofran Inj) 4 mg Q6H PRN IV NAUSEA AND/OR VOMITING Last administered on 05/17/16 11:19; Admin Dose 4 MG; Start 04/11/16 at 22:30 Acetaminophen (Tylenol Tab) 650 mg Q6H PRN PO PAIN LEVEL 1-3 OR FEVER; Start at 22:30 Morphine Sulfate (morphine) 2 mg Q4H PRN IV PAIN LEVEL 7-10 Last administered on 05/20/16 00:54; Admin Dose 2 MG; Start 04/11/16 at 22:30 Ascorbic Acid (Vitamin C) 500 mg DAILY GTB Last administered on 05/11/16 09:13 ; Admin Dose 500 MG; Start 04/12/16 at 09:00 Bisacodyl (Dulcolax) 10 mg DAILY PRN PO CONSTIPATION; Start 04/11/16 at 22:30 Chlorhexidine Gluconate (Peridex) 15 ml BID MM Last administered on 05/19/16 21:06; Admin Dose 15 ML; Start 04/12/16 at 09:00 Ferrous Sulfate (Feosol Liquid Cup) 300 mg BID GTB Last administered on 22:09; Admin Dose 300 MG; Start 04/12/16 at 09:00 Acetaminophen/ Hydrocodone Bitart ([place] (5/325)) 1 tab Q4 PRN GTB PAIN LEVEL 6 -10; Start 04/11/16 at 22:30 Lactulose (Enulose) 20 gm DAILY GTB Last administered on 05/11/16 09:12; Admin Dose 20 GM; Start 04/12/16 at 09:00 Quetiapine Fumarate (Seroquel) 25 mg BID@ GTB Last administered on 17:33; Admin Dose 25 MG; Start 04/12/16 at 09:00 Quetiapine Fumarate (Seroquel) 200 mg HS GTB Last administered on 05/10/16 21: 28; Admin Dose 200 MG; Start 04/12/16 at 21:00 Senna (Senokot) 1 tab QHS GTB Last administered on 05/11/16 22:09; Admin Dose 1 TAB; Start 04/12/16 at 21:00 Sodium Biphosphate/ Sodium Phosphate (Fleet Enema Pediatric) 66.6 ml DAILY PRN [place] CONSTIPATION; Start 04/11/16 at 22:30 Thiamine HCl (Vitamin B1) 100 mg DAILY GTB Last administered on 05/11/16 09:13 ; Admin Dose 100 MG; Start 04/12/16 at 09:00 Calcium Carbonate (Tums) 500 mg DAILY GTB Last administered on 05/11/16 09:13 ; Admin Dose 500 MG; Start 04/12/16 at 09:00 Multivitamins/ Minerals (Theragran-M) 1 tab DAILY PO Last administered on 09:13; Admin Dose 1 TAB; Start 04/12/16 at 09:00 Hydralazine HCl (Apresoline) 10 mg Q6H PRN IV SBP >160 Last administered on 16:38; Admin Dose 10 MG; Start 04/12/16 at 12:30 Famotidine (Pepcid) 20 mg Q12 GTB Last administered on 05/11/16 22:09; Admin Dose 20 MG; Start 04/19/16 at 21:00 Clonidine (Catapres) 0.1 mg Q6H PRN PO ELEVATED BLOOD PRESSURE; Start 04/24/16 at 23:30 Metoprolol Tartrate (Lopressor) 5 mg Q4H PRN IV PRN HR>110 Hold SBP<100; Start 04/28/16 at 13:30 Metoprolol Tartrate (Lopressor) 25 mg BID PO Last administered on 04/29/16 21: 29; Admin Dose 25 MG; Start 04/29/16 at 21:00; Status Future Hold Lorazepam (Ativan) 1 mg Q6 GTB Last administered on 05/12/16 03:11; Admin Dose 1 MG; Start 05/02/16 at 00:00 Aspirin (Aspirin) 81 mg DAILY PO Last administered on 05/11/16 09:13; Admin Dose 81 MG; Start 05/02/16 at 14:30 Chlordiazepoxide (Librium) 10 mg TID PO Last administered on 05/17/16 10:11; Admin Dose 10 MG; Start 05/04/16 at 09:00 Acetaminophen (Tylenol Liquid) 650 mg Q6H PRN GTB FEVER >101; Start 05/06/16 at 11:30 Furosemide (Lasix) 20 mg BID IV Last administered on 05/19/16 21:07; Admin Dose 20 MG; Start 05/06/16 at 21:00 Benazepril HCl (Lotensin) 10 mg DAILY PO ; Start 05/13/16 at 09:00 Clonidine HCl (Catapres-Tts 1 Patch) 1 patch Q7D TRANSDERM Last administered on 05/13/16 15:28; Admin Dose 1 PATCH; Start 05/13/16 at 13:00 Hydralazine HCl (Apresoline) 10 mg Q6H PRN IV SBP>170; Start 05/13/16 at 13:00 Lorazepam 2 mg 2 mg Q4 PRN IV AGITATION Last administered on 05/18/16 03:42; Admin Dose 2 MG; Start 05/16/16 at 16:00 Potassium Chloride/Dextrose/ Sod Cl (D5-NS + KCl 20 Meq) 1,000 ml @ 70 mls/hr [id number] IV Last administered on 05/20/16 05:35; Admin Dose 70 MLS/HR; Start at 19:00 Assessment/Plan Chief Complaint/Hosp Course Assessment 1. Vent dependent respiratory failure 2. Dysphagia with G-tube 3. History of psychiatric disorder 4. Marked cachexia 5. Resolved thrombocytopenia 6. History of non-ST elevation [place] Plan 1. Continue mechanical ventilation. Trial of CPAP, if stable will place on cool aerosol 2. Continue tube feeding and aspiration precautions, consider advancing to puree diet as tolerated 3. Continue DVT GI prophylaxis 4. Continue cardiac recommendations Disposition Consider discharge planning if placement available Problems: MARISOL EDDY MD, [facility] May 20, 2016 11:13
--- NOTE | 2016-05-20 13:57 | PN ---
Date/Time of Note Date/Time of Note DATE: 05/20/16 TIME: 13:54 Assessment/Plan VTE Prophylaxis VTE Prophylaxis Intervention: other (per pmd) Lines/Catheters IV Catheter Type (from Nrsg): PICC Line Central line still needed: Yes Urinary Cath still in place: Yes (Condom catheter) Reason Cath still needed: other (indicate) (per pmd) Assessment/Plan Chief Complaint/Hosp Course plan peg Problems: Assessment/Plan pt not eating well has pulled out peg he will cont t5o do that hence peg is on hold Subjective 24 Hr Interval Summary Free Text/Dictation pt has no sp complaints not eating failed swallow eval Exam/Review of Systems Vital Signs Vitals Vital Signs Date Time Temp Pulse Resp B/P Pulse Ox O2 Delivery O2 Flow Rate FiO2 05/20/16 12:39 102 05/20/16 11:05 25 97 30 05/20/16 10:00 98.3 132/84 05/20/16 06:00 Mechanical Ventilator Intake and Output 05/19/16 05/19/16 05/20/16 15:00 23:00 07:00 Intake Total 770 ml 700 ml Output Total 500 ml 1200 ml Balance 270 ml -500 ml Exam no change heart nsr v lungs clear abd neg pt combative Results Result Diagram: 05/20/16 0640 05/20/16 0640 Results 24 hrs Laboratory Tests Test 05/20/16 06:40 White Blood Count 6.5 Red Blood Count 3.50 L Hemoglobin 9.6 L Hematocrit 30.4 L Mean Corpuscular Volume 86.9 Mean Corpuscular Hemoglobin 27.4 L Mean Corpuscular Hemoglobin Concent 31.6 L Red Cell Distribution Width 17.1 H Platelet Count 186 Mean Platelet Volume 11.9 H Neutrophils % 80.2 H Lymphocytes % 11.4 L Monocytes % 7.4 Eosinophils % 0.2 Basophils % 0.5 Nucleated Red Blood Cells % 0.0 Neutrophils # 5.2 Lymphocytes # 0.7 L Monocytes # 0.5 Eosinophils # 0.0 Basophils # 0.0 Nucleated Red Blood Cells # 0.0 Sodium Level 138 Potassium Level 5.1 Chloride Level 104 Carbon Dioxide Level 28 Anion Gap 11 Blood Urea Nitrogen 8 Creatinine 0.51 L Glucose Level 358 #H Calcium Level 8.0 L Medications Medications Current Medications Ondansetron HCl (Zofran Inj) 4 mg Q6H PRN IV NAUSEA AND/OR VOMITING Last administered on 05/17/16 11:19; Admin Dose 4 MG; Start 04/11/16 at 22:30 Acetaminophen (Tylenol Tab) 650 mg Q6H PRN PO PAIN LEVEL 1-3 OR FEVER; Start at 22:30 Morphine Sulfate (morphine) 2 mg Q4H PRN IV PAIN LEVEL 7-10 Last administered on 05/20/16 00:54; Admin Dose 2 MG; Start 04/11/16 at 22:30 Ascorbic Acid (Vitamin C) 500 mg DAILY GTB Last administered on 05/11/16 09:13 ; Admin Dose 500 MG; Start 04/12/16 at 09:00 Bisacodyl (Dulcolax) 10 mg DAILY PRN PO CONSTIPATION; Start 04/11/16 at 22:30 Chlorhexidine Gluconate (Peridex) 15 ml BID MM Last administered on 05/19/16 21:06; Admin Dose 15 ML; Start 04/12/16 at 09:00 Ferrous Sulfate (Feosol Liquid Cup) 300 mg BID GTB Last administered on 22:09; Admin Dose 300 MG; Start 04/12/16 at 09:00 Acetaminophen/ Hydrocodone Bitart ([place] (5/325)) 1 tab Q4 PRN GTB PAIN LEVEL 6 -10; Start 04/11/16 at 22:30 Lactulose (Enulose) 20 gm DAILY GTB Last administered on 05/11/16 09:12; Admin Dose 20 GM; Start 04/12/16 at 09:00 Quetiapine Fumarate (Seroquel) 25 mg BID@ GTB Last administered on 17:33; Admin Dose 25 MG; Start 04/12/16 at 09:00 Quetiapine Fumarate (Seroquel) 200 mg HS GTB Last administered on 05/10/16 21: 28; Admin Dose 200 MG; Start 04/12/16 at 21:00 Senna (Senokot) 1 tab QHS GTB Last administered on 05/11/16 22:09; Admin Dose 1 TAB; Start 04/12/16 at 21:00 Sodium Biphosphate/ Sodium Phosphate (Fleet Enema Pediatric) 66.6 ml DAILY PRN [place] CONSTIPATION; Start 04/11/16 at 22:30 Thiamine HCl (Vitamin B1) 100 mg DAILY GTB Last administered on 05/11/16 09:13 ; Admin Dose 100 MG; Start 04/12/16 at 09:00 Calcium Carbonate (Tums) 500 mg DAILY GTB Last administered on 05/11/16 09:13 ; Admin Dose 500 MG; Start 04/12/16 at 09:00 Multivitamins/ Minerals (Theragran-M) 1 tab DAILY PO Last administered on 09:13; Admin Dose 1 TAB; Start 04/12/16 at 09:00 Hydralazine HCl (Apresoline) 10 mg Q6H PRN IV SBP >160 Last administered on 16:38; Admin Dose 10 MG; Start 04/12/16 at 12:30 Famotidine (Pepcid) 20 mg Q12 GTB Last administered on 05/11/16 22:09; Admin Dose 20 MG; Start 04/19/16 at 21:00 Clonidine (Catapres) 0.1 mg Q6H PRN PO ELEVATED BLOOD PRESSURE; Start 04/24/16 at 23:30 Metoprolol Tartrate (Lopressor) 5 mg Q4H PRN IV PRN HR>110 Hold SBP<100; Start 04/28/16 at 13:30 Metoprolol Tartrate (Lopressor) 25 mg BID PO Last administered on 04/29/16 21: 29; Admin Dose 25 MG; Start 04/29/16 at 21:00; Status Future Hold Lorazepam (Ativan) 1 mg Q6 GTB Last administered on 05/12/16 03:11; Admin Dose 1 MG; Start 05/02/16 at 00:00 Aspirin (Aspirin) 81 mg DAILY PO Last administered on 05/11/16 09:13; Admin Dose 81 MG; Start 05/02/16 at 14:30 Chlordiazepoxide (Librium) 10 mg TID PO Last administered on 05/17/16 10:11; Admin Dose 10 MG; Start 05/04/16 at 09:00 Acetaminophen (Tylenol Liquid) 650 mg Q6H PRN GTB FEVER >101; Start 05/06/16 at 11:30 Furosemide (Lasix) 20 mg BID IV Last administered on 05/19/16 21:07; Admin Dose 20 MG; Start 05/06/16 at 21:00 Benazepril HCl (Lotensin) 10 mg DAILY PO ; Start 05/13/16 at 09:00 Clonidine HCl (Catapres-Tts 1 Patch) 1 patch Q7D TRANSDERM Last administered on 05/13/16 15:28; Admin Dose 1 PATCH; Start 05/13/16 at 13:00 Hydralazine HCl (Apresoline) 10 mg Q6H PRN IV SBP>170; Start 05/13/16 at 13:00 Lorazepam 2 mg 2 mg Q4 PRN IV AGITATION Last administered on 05/18/16 03:42; Admin Dose 2 MG; Start 05/16/16 at 16:00 Potassium Chloride/Dextrose/ Sod Cl (D5-NS + KCl 20 Meq) 1,000 ml @ 70 mls/hr [id number] IV Last administered on 05/20/16 05:35; Admin Dose 70 MLS/HR; Start at 19:00 CICI CALIX MD May 20, 2016 13:57
[2016-05-20] MEDS: CLONIDINE 0.1 MG/24 HR PATCH TRANSDERM SCH (14:02)
--- NOTE | 2016-05-20 18:47 | PN ---
Date/Time of Note Date/Time of Note DATE: 05/20/16 TIME: 18:46 Assessment/Plan VTE Prophylaxis VTE Prophylaxis Intervention: other Lines/Catheters [facility] P[facility] Line Urinary Cath still in place: Yes (Condom catheter) Assessment/Plan Assessment/Plan - Bleeding from tracheostomy site, resolved. - Pancytopenia. Dr Gaona is following in hematology consultation. - Coagulopathy, status post vitamin K, Lovenox is held - NSTEMI, continue aspirin and Lovenox. Dr. Espitia is following patient in cardiology consultation. - Atrial fibrillation with rapid ventricular response. Continue metoprolol. Continue telemetry monitoring. - Bilateral pleural effusions, status post right sided thoracentesis. - Acute hypoxic respiratory failure. Dr. Anderson is following in pulmonology consultation. Continue ventilatory support and bronchodilators. - Possible healthcare-acquired left lower lung pneumonia versus aspiration. Continue antibiotics per ID. Dr. Rojas is following an infection disease consultation. - E. coli ESBL urinary tract infection, status post treatment. - Sepsis with Ecoli ESBL bacteremia 2 UTI, resolved. - Dysphagia, with G-tube. Status post G-tube removal by patient. Status post G-tube placement by Dr. Marcus 05/10, currently DC'd by patient. - History of chronic respiratory failure with tracheostomy. - Benign prostatic hypertrophy. - Schizoaffective disorder. Continue Seroquel and Ativan as needed for agitation. Continue Pepcid for peptic ulcer disease prophylaxis. Further recommendations based on clinical course. Plan of care discussed with Dr. Colunga. Subjective 24 Hr Interval Summary Free Text/Dictation NAD, awake, alert, on restraints. dw staff. stat mag level- fu. Exam/Review of Systems Vital Signs Vitals Vital Signs Date Time Temp Pulse Resp B/P Pulse Ox O2 Delivery O2 Flow Rate FiO2 05/20/16 17:15 74 24 96 30 05/20/16 16:04 98.5 135/85 05/20/16 14:00 Mechanical Ventilator Intake and Output 05/19/16 05/19/16 05/20/16 15:00 23:00 07:00 Intake Total 770 ml 700 ml Output Total 500 ml 1200 ml Balance 270 ml -500 ml Results Result Diagram: 05/20/16 0640 05/20/16 0640 Results 24 hrs Laboratory Tests Test 05/20/16 06:40 White Blood Count 6.5 Red Blood Count 3.50 L Hemoglobin 9.6 L Hematocrit 30.4 L Mean Corpuscular Volume 86.9 Mean Corpuscular Hemoglobin 27.4 L Mean Corpuscular Hemoglobin Concent 31.6 L Red Cell Distribution Width 17.1 H Platelet Count 186 Mean Platelet Volume 11.9 H Neutrophils % 80.2 H Lymphocytes % 11.4 L Monocytes % 7.4 Eosinophils % 0.2 Basophils % 0.5 Nucleated Red Blood Cells % 0.0 Neutrophils # 5.2 Lymphocytes # 0.7 L Monocytes # 0.5 Eosinophils # 0.0 Basophils # 0.0 Nucleated Red Blood Cells # 0.0 Sodium Level 138 Potassium Level 5.1 Chloride Level 104 Carbon Dioxide Level 28 Anion Gap 11 Blood Urea Nitrogen 8 Creatinine 0.51 L Glucose Level 358 #H Calcium Level 8.0 L Medications Medications Current Medications Ondansetron HCl (Zofran Inj) 4 mg Q6H PRN IV NAUSEA AND/OR VOMITING Last administered on 05/17/16 11:19; Admin Dose 4 MG; Start 04/11/16 at 22:30 Acetaminophen (Tylenol Tab) 650 mg Q6H PRN PO PAIN LEVEL 1-3 OR FEVER; Start at 22:30 Morphine Sulfate (morphine) 2 mg Q4H PRN IV PAIN LEVEL 7-10 Last administered on 05/20/16 00:54; Admin Dose 2 MG; Start 04/11/16 at 22:30 Ascorbic Acid (Vitamin C) 500 mg DAILY GTB Last administered on 05/11/16 09:13 ; Admin Dose 500 MG; Start 04/12/16 at 09:00 Bisacodyl (Dulcolax) 10 mg DAILY PRN PO CONSTIPATION; Start 04/11/16 at 22:30 Chlorhexidine Gluconate (Peridex) 15 ml BID MM Last administered on 05/19/16 21:06; Admin Dose 15 ML; Start 04/12/16 at 09:00 Ferrous Sulfate (Feosol Liquid Cup) 300 mg BID GTB Last administered on 22:09; Admin Dose 300 MG; Start 04/12/16 at 09:00 Acetaminophen/ Hydrocodone Bitart ([place] (5/325)) 1 tab Q4 PRN GTB PAIN LEVEL 6 -10; Start 04/11/16 at 22:30 Lactulose (Enulose) 20 gm DAILY GTB Last administered on 05/11/16 09:12; Admin Dose 20 GM; Start 04/12/16 at 09:00 Quetiapine Fumarate (Seroquel) 25 mg BID@ GTB Last administered on 17:33; Admin Dose 25 MG; Start 04/12/16 at 09:00 Quetiapine Fumarate (Seroquel) 200 mg HS GTB Last administered on 05/10/16 21: 28; Admin Dose 200 MG; Start 04/12/16 at 21:00 Senna (Senokot) 1 tab QHS GTB Last administered on 05/11/16 22:09; Admin Dose 1 TAB; Start 04/12/16 at 21:00 Sodium Biphosphate/ Sodium Phosphate (Fleet Enema Pediatric) 66.6 ml DAILY PRN [place] CONSTIPATION; Start 04/11/16 at 22:30 Thiamine HCl (Vitamin B1) 100 mg DAILY GTB Last administered on 05/11/16 09:13 ; Admin Dose 100 MG; Start 04/12/16 at 09:00 Calcium Carbonate (Tums) 500 mg DAILY GTB Last administered on 05/11/16 09:13 ; Admin Dose 500 MG; Start 04/12/16 at 09:00 Multivitamins/ Minerals (Theragran-M) 1 tab DAILY PO Last administered on 09:13; Admin Dose 1 TAB; Start 04/12/16 at 09:00 Hydralazine HCl (Apresoline) 10 mg Q6H PRN IV SBP >160 Last administered on 16:38; Admin Dose 10 MG; Start 04/12/16 at 12:30 Famotidine (Pepcid) 20 mg Q12 GTB Last administered on 05/11/16 22:09; Admin Dose 20 MG; Start 04/19/16 at 21:00 Clonidine (Catapres) 0.1 mg Q6H PRN PO ELEVATED BLOOD PRESSURE; Start 04/24/16 at 23:30 Metoprolol Tartrate (Lopressor) 5 mg Q4H PRN IV PRN HR>110 Hold SBP<100; Start 04/28/16 at 13:30 Metoprolol Tartrate (Lopressor) 25 mg BID PO Last administered on 04/29/16 21: 29; Admin Dose 25 MG; Start 04/29/16 at 21:00; Status Future Hold Lorazepam (Ativan) 1 mg Q6 GTB Last administered on 05/12/16 03:11; Admin Dose 1 MG; Start 05/02/16 at 00:00 Aspirin (Aspirin) 81 mg DAILY PO Last administered on 05/11/16 09:13; Admin Dose 81 MG; Start 05/02/16 at 14:30 Chlordiazepoxide (Librium) 10 mg TID PO Last administered on 05/17/16 10:11; Admin Dose 10 MG; Start 05/04/16 at 09:00 Acetaminophen (Tylenol Liquid) 650 mg Q6H PRN GTB FEVER >101; Start 05/06/16 at 11:30 Furosemide (Lasix) 20 mg BID IV Last administered on 05/19/16 21:07; Admin Dose 20 MG; Start 05/06/16 at 21:00 Benazepril HCl (Lotensin) 10 mg DAILY PO ; Start 05/13/16 at 09:00 Clonidine HCl (Catapres-Tts 1 Patch) 1 patch Q7D TRANSDERM Last administered on 05/20/16 14:02; Admin Dose 1 PATCH; Start 05/13/16 at 13:00 Hydralazine HCl (Apresoline) 10 mg Q6H PRN IV SBP>170; Start 05/13/16 at 13:00 Lorazepam 2 mg 2 mg Q4 PRN IV AGITATION Last administered on 05/18/16 03:42; Admin Dose 2 MG; Start 05/16/16 at 16:00 Potassium Chloride/Dextrose/ Sod Cl (D5-NS + KCl 20 Meq) 1,000 ml @ 70 mls/hr [id number] IV Last administered on 05/20/16 05:35; Admin Dose 70 MLS/HR; Start at 19:00 BRENT KENDRICK May 20, 2016 18:47
[2016-05-20] MEDS: QUETIAPINE 100 MG TAB GTB SCH (21:00)
[2016-05-20] MEDS: SENNA TAB GTB SCH (21:00)
--- NOTE | 2016-05-20 21:02 | CONS ---
Date/Time of Note Date/Time of Note DATE: 05/20/16 TIME: 20:59 Assessment/Plan Assessment/Plan Chief Complaint/Hosp Course IMPRESSION: 1. Wide complex tachycardia, cardiac arrhythmia. Rule out nonsustained ventricular tachycardia.-likely c/w abberant AF-no recurrence 2. Abnormal electrocardiogram, assess for acute coronary syndrome. 3. Congestive heart failure by chest x-ray, diastolic by most recent echo acute on chronic. 4. Hypertension with current borderline Hotn s/p IVP hydralazine 5. Respiratory failure, chronic, status post tracheostomy with desat now transferred to ICU 6. Dysphagia, status post G-tube which patient pulled out/self d/c'd 7. Psychiatric disorder. 8. Urinary tract infection. 9. Hypokalemia-improved 10. Anemia. 11. Leukopenia. 12.Nstemi-no current chest pain/decreased enzymes 14. Bradycardia-improved Recc: -Tele -Continue to hold BB given prior bradycardia -Continue asa medical therapy for nstemi with currently decreased cardiac enzymes when able to take PO's -Resume ACEI when able to take PO's again -Continue lasix diuresis and consider increase dose to improve diuresis -C discussed with patient but patient does not have clear understanding and would like to wait -LOvenox held due to trach site bleeding -clonidine TTS and follow labile BP Problems: Consultation Date/Type/Reason Admit Date/Time Apr 11, 2016 at 22:13 Initial Consult Date 04/21/16 Type of Consultation: Cardiology Reason for Consultation NSVT Referring Provider: ANNETTA AGUILAR MD Exam/Review of Systems Vital Signs Vitals Vital Signs Date Time Temp Pulse Resp B/P Pulse Ox O2 Delivery O2 Flow Rate FiO2 05/20/16 20:16 99.7 76 21 158/91 93 05/20/16 19:40 30 05/20/16 18:00 Mechanical Ventilator Intake and Output 05/19/16 05/19/16 05/20/16 15:00 23:00 07:00 Intake Total 770 ml 700 ml Output Total 500 ml 1200 ml Balance 270 ml -500 ml Exam Review of Systems: CONSTITUTIONAL: No fevers, chills. PULMONARY: No sob CARDIOVASCULAR: No chest pain/palpitations GASTROINTESTINAL: No nausea/vomiting. GENITOURINARY: No hematuria/dysuria. MUSCULOSKELETAL: No myagias/arthalgias. PSYCHIATRIC: The patient denies depression. NEUROLOGIC: No weakness Constitutional: alert Psych: no complaints Head: normocephalic ENMT: mucosa pink and moist Neck: jvd (8 cm water), other (trached), supple Respiratory: other (upper airway rhoncherous sounds) Cardiovascular: regular rate and rhythm Gastrointestinal: non-tender, soft Musculoskeletal: muscle weakness (generalized) Extremities: edema (none), other (contracted) Neurological: other (No focal deficits) Results Result Diagram: 05/20/16 0640 05/20/16 0640 Results 24 hrs Laboratory Tests Test 05/20/16 06:40 05/20/16 19:20 White Blood Count 6.5 Red Blood Count 3.50 L Hemoglobin 9.6 L Hematocrit 30.4 L Mean Corpuscular Volume 86.9 Mean Corpuscular Hemoglobin 27.4 L Mean Corpuscular Hemoglobin Concent 31.6 L Red Cell Distribution Width 17.1 H Platelet Count 186 Mean Platelet Volume 11.9 H Neutrophils % 80.2 H Lymphocytes % 11.4 L Monocytes % 7.4 Eosinophils % 0.2 Basophils % 0.5 Nucleated Red Blood Cells % 0.0 Neutrophils # 5.2 Lymphocytes # 0.7 L Monocytes # 0.5 Eosinophils # 0.0 Basophils # 0.0 Nucleated Red Blood Cells # 0.0 Sodium Level 138 Potassium Level 5.1 Chloride Level 104 Carbon Dioxide Level 28 Anion Gap 11 Blood Urea Nitrogen 8 Creatinine 0.51 L Glucose Level 358 #H Calcium Level 8.0 L Magnesium Level 1.3 L Medications Medications Current Medications Ondansetron HCl (Zofran Inj) 4 mg Q6H PRN IV NAUSEA AND/OR VOMITING Last administered on 05/17/16 11:19; Admin Dose 4 MG; Start 04/11/16 at 22:30 Acetaminophen (Tylenol Tab) 650 mg Q6H PRN PO PAIN LEVEL 1-3 OR FEVER; Start at 22:30 Morphine Sulfate (morphine) 2 mg Q4H PRN IV PAIN LEVEL 7-10 Last administered on 05/20/16 00:54; Admin Dose 2 MG; Start 04/11/16 at 22:30 Ascorbic Acid (Vitamin C) 500 mg DAILY GTB Last administered on 05/11/16 09:13 ; Admin Dose 500 MG; Start 04/12/16 at 09:00 Bisacodyl (Dulcolax) 10 mg DAILY PRN PO CONSTIPATION; Start 04/11/16 at 22:30 Chlorhexidine Gluconate (Peridex) 15 ml BID MM Last administered on 05/20/16 20:03; Admin Dose 15 ML; Start 04/12/16 at 09:00 Ferrous Sulfate (Feosol Liquid Cup) 300 mg BID GTB Last administered on 22:09; Admin Dose 300 MG; Start 04/12/16 at 09:00 Acetaminophen/ Hydrocodone Bitart ([place] (5/325)) 1 tab Q4 PRN GTB PAIN LEVEL 6 -10; Start 04/11/16 at 22:30 Lactulose (Enulose) 20 gm DAILY GTB Last administered on 05/11/16 09:12; Admin Dose 20 GM; Start 04/12/16 at 09:00 Quetiapine Fumarate (Seroquel) 25 mg BID@ GTB Last administered on 17:33; Admin Dose 25 MG; Start 04/12/16 at 09:00 Quetiapine Fumarate (Seroquel) 200 mg HS GTB Last administered on 05/10/16 21: 28; Admin Dose 200 MG; Start 04/12/16 at 21:00 Senna (Senokot) 1 tab QHS GTB Last administered on 05/11/16 22:09; Admin Dose 1 TAB; Start 04/12/16 at 21:00 Sodium Biphosphate/ Sodium Phosphate (Fleet Enema Pediatric) 66.6 ml DAILY PRN [place] CONSTIPATION; Start 04/11/16 at 22:30 Thiamine HCl (Vitamin B1) 100 mg DAILY GTB Last administered on 05/11/16 09:13 ; Admin Dose 100 MG; Start 04/12/16 at 09:00 Calcium Carbonate (Tums) 500 mg DAILY GTB Last administered on 05/11/16 09:13 ; Admin Dose 500 MG; Start 04/12/16 at 09:00 Multivitamins/ Minerals (Theragran-M) 1 tab DAILY PO Last administered on 09:13; Admin Dose 1 TAB; Start 04/12/16 at 09:00 Hydralazine HCl (Apresoline) 10 mg Q6H PRN IV SBP >160 Last administered on 16:38; Admin Dose 10 MG; Start 04/12/16 at 12:30 Famotidine (Pepcid) 20 mg Q12 GTB Last administered on 05/11/16 22:09; Admin Dose 20 MG; Start 04/19/16 at 21:00 Clonidine (Catapres) 0.1 mg Q6H PRN PO ELEVATED BLOOD PRESSURE; Start 04/24/16 at 23:30 Metoprolol Tartrate (Lopressor) 5 mg Q4H PRN IV PRN HR>110 Hold SBP<100; Start 04/28/16 at 13:30 Metoprolol Tartrate (Lopressor) 25 mg BID PO Last administered on 04/29/16 21: 29; Admin Dose 25 MG; Start 04/29/16 at 21:00; Status Future Hold Lorazepam (Ativan) 1 mg Q6 GTB Last administered on 05/12/16 03:11; Admin Dose 1 MG; Start 05/02/16 at 00:00 Aspirin (Aspirin) 81 mg DAILY PO Last administered on 05/11/16 09:13; Admin Dose 81 MG; Start 05/02/16 at 14:30 Chlordiazepoxide (Librium) 10 mg TID PO Last administered on 05/17/16 10:11; Admin Dose 10 MG; Start 05/04/16 at 09:00 Acetaminophen (Tylenol Liquid) 650 mg Q6H PRN GTB FEVER >101; Start 05/06/16 at 11:30 Furosemide (Lasix) 20 mg BID IV Last administered on 05/20/16 20:08; Admin Dose 20 MG; Start 05/06/16 at 21:00 Benazepril HCl (Lotensin) 10 mg DAILY PO ; Start 05/13/16 at 09:00 Clonidine HCl (Catapres-Tts 1 Patch) 1 patch Q7D TRANSDERM Last administered on 05/20/16 14:02; Admin Dose 1 PATCH; Start 05/13/16 at 13:00 Hydralazine HCl (Apresoline) 10 mg Q6H PRN IV SBP>170; Start 05/13/16 at 13:00 Lorazepam 2 mg 2 mg Q4 PRN IV AGITATION Last administered on 05/18/16 03:42; Admin Dose 2 MG; Start 05/16/16 at 16:00 Potassium Chloride/Dextrose/ Sod Cl (D5-NS + KCl 20 Meq) 1,000 ml @ 70 mls/hr [id number] IV Last administered on 05/20/16t 19:59; Admin Dose 70 MLS/HR; Start at 19:00 LILI BRADEN May 20, 2016 21:02
[2016-05-21] VITALS (25 sets, daily range): BP systolic 137–155; BP diastolic 67–90; PULSE 40–101; RESP 13–31
[2016-05-21] MEDS: ALBUTEROL HFA 8 GM INHALER INH SCH ×4 (01:20→19:23)
[2016-05-21] MEDS: IPRATROPIUM (HFA) 12.9 GM INHALER INH SCH ×4 (01:20→19:23)
[2016-05-21] MEDS: LORAZEPAM 1 MG TAB GTB SCH ×4 (06:00→18:00)
[2016-05-21] MEDS: LORAZEPAM 2 MG INJ IV PRN (07:42)
[2016-05-21 08:06] LABS: ADD SCAN DIFF NO
[2016-05-21 08:14] LABS: BASOPHILS % 0.5 % (0.0-2.0); HEMATOCRIT 23.9 % (42.0-52.0); HEMOGLOBIN 7.6 g/dl (14.0-18.0); LYMPHOCYTES # 0.7 10^3/ul (0.8-2.9); LYMPHOCYTES % 11.3 % (15.0-51.0); MEAN CORPUSCULAR HEMOGLOBIN 27.3 pg (29.0-33.0); MEAN CORPUSCULAR HGB CONC 31.8 g/dl (32.0-37.0); MEAN PLATELET VOLUME 11.9 fl (7.4-10.4); MONOCYTE # 0.7 10^3/ul (0.3-0.9); MONOCYTES % 10.5 % (0.0-11.0); NEUTROPHIL # 4.9 10^3/ul (1.6-7.5); NEUTROPHILS % 77.5 % (39.0-77.0); PLATELET COUNT 213 10^3/UL (140-415); RED BLOOD COUNT 2.78 10^6/ul (4.70-6.10); RED CELL DISTRIBUTION WIDTH 17.2 % (11.5-14.5); WHITE BLOOD COUNT 6.3 10^3/ul (4.8-10.8)
[2016-05-21 08:26] LABS: POTASSIUM 3.3 mmol/L (3.5-5.1)
[2016-05-21 08:29] LABS: CREATININE 0.57 mg/dl (0.61-1.24)
[2016-05-21 08:30] LABS: CALCIUM 8.6 mg/dl (8.4-10.2)
[2016-05-21] MEDS: ASPIRIN 81 MG TAB PO SCH (09:00)
[2016-05-21] MEDS: THIAMINE 100 MG TAB GTB SCH (09:00)
[2016-05-21] MEDS: MULTIVITAMINS/MINERALS TAB PO SCH (09:00)
[2016-05-21] MEDS: CHLORHEXIDINE GLUCONATE 15 ML UD CUP MM SCH ×2 (09:00→20:43)
[2016-05-21] MEDS: ASCORBIC ACID 500 MG TAB GTB SCH (09:00)
[2016-05-21] MEDS: FAMOTIDINE 20 MG TAB GTB SCH ×2 (09:00→21:00)
[2016-05-21] MEDS: CALCIUM CARBONATE 500 MG CHEW TAB GTB SCH (09:00)
[2016-05-21] MEDS: LACTULOSE 30ML CUP GTB SCH (09:00)
[2016-05-21] MEDS: QUETIAPINE 25 MG TAB GTB SCH ×2 (09:00→17:00)
[2016-05-21] MEDS: FERROUS SULFATE 60 MG/ML 5ML CUP GTB SCH ×2 (09:00→21:00)
[2016-05-21] MEDS: FUROSEMIDE 20 MG INJ IV SCH ×2 (09:00→20:44)
[2016-05-21] MEDS: CHLORDIAZEPOXIDE 5 MG CAP PO SCH ×3 (09:00→21:00)
[2016-05-21] MEDS: BENAZEPRIL 10 MG TAB PO SCH (09:00)
[2016-05-21] MEDS ORDERED: FENTAnyl 50 MCG/ML VIAL ONE (12:00)
[2016-05-21] MEDS ORDERED: MIDAZOLAM 1 MG/ML 2 ML INJ ONE (12:00)
--- NOTE | 2016-05-21 12:33 | CONS ---
Date/Time of Note Date/Time of Note DATE: 05/21/16 TIME: 12:26 Assessment/Plan Assessment/Plan Chief Complaint/Hosp Course IMPRESSION: 1. Wide complex tachycardia, cardiac arrhythmia. Rule out nonsustained ventricular tachycardia.-likely c/w abberant AF-no recurrence 2. Abnormal electrocardiogram, assess for acute coronary syndrome. 3. Congestive heart failure by chest x-ray, diastolic by most recent echo acute on chronic.-improved volume status 4. Hypertension with current borderline Hotn s/p IVP hydralazine 5. Respiratory failure, chronic, status post tracheostomy with desat now transferred to ICU 6. Dysphagia, status post G-tube which patient pulled out/self d/c'd 7. Psychiatric disorder. 8. Urinary tract infection. 9. Hypokalemia-improved 10. Anemia. 11. Leukopenia. 12.Nstemi-no current chest pain/decreased enzymes 14. Bradycardia-improved Recc: -Tele -Continue to hold BB given prior bradycardia -Continue asa medical therapy for nstemi with currently decreased cardiac enzymes when able to take PO's -Resume ACEI when able to take PO's again -Continue lasix diuresis and consider increase dose to improve diuresis -LHC discussed with patient but patient does not have clear understanding and would like to wait -LOvenox held due to trach site bleeding -clonidine TTS and follow labile BP and will make slight increase to improve BP control Problems: Consultation Date/Type/Reason Admit Date/Time Apr 11, 2016 at 22:13 Initial Consult Date 04/21/16 Type of Consultation: Cardiology Reason for Consultation NSVT Referring Provider: ANNETTA AGUILAR MD Exam/Review of Systems Vital Signs Vitals Vital Signs Date Time Temp Pulse Resp B/P Pulse Ox O2 Delivery O2 Flow Rate FiO2 05/21/16 12:17 101 05/21/16 11:05 29 96 30 05/21/16 07:59 98.2 155/90 05/21/16 06:40 Mechanical Ventilator Intake and Output 05/20/16 05/20/16 05/21/16 15:00 23:00 07:00 Intake Total 1000 ml Output Total 600 ml 800 ml Balance 400 ml -800 ml Exam Review of Systems: CONSTITUTIONAL: No fevers, chills. PULMONARY: No sob CARDIOVASCULAR: No chest pain/palpitations GASTROINTESTINAL: No nausea/vomiting. GENITOURINARY: No hematuria/dysuria. MUSCULOSKELETAL: No myagias/arthalgias. PSYCHIATRIC: The patient denies depression. NEUROLOGIC: No weakness Constitutional: alert Psych: confusion, no complaints Head: normocephalic ENMT: mucosa pink and moist Neck: jvd, supple Respiratory: other (upper airway rhoncherous sounds) Cardiovascular: regular rate and rhythm Gastrointestinal: non-tender, soft Musculoskeletal: muscle weakness (generalized) Results Result Diagram: 05/21/1658 05/21/1658 Results 24 hrs Laboratory Tests Test 05/20/16 19:20 05/21/16 06:50 05/21/16 06:58 05/21/16 10:31 Magnesium Level 1.3 L 1.3 L White Blood Count 6.3 Red Blood Count 2.78 #L Hemoglobin 7.6 #L Hematocrit 23.9 #L Mean Corpuscular Volume 86.0 Mean Corpuscular Hemoglobin 27.3 L Mean Corpuscular Hemoglobin Concent 31.8 L Red Cell Distribution Width 17.2 H Platelet Count 213 Mean Platelet Volume 11.9 H Neutrophils % 77.5 H Lymphocytes % 11.3 L Monocytes % 10.5 Eosinophils % 0.0 Basophils % 0.5 Nucleated Red Blood Cells % 0.0 Neutrophils # 4.9 Lymphocytes # 0.7 L Monocytes # 0.7 Eosinophils # 0.0 Basophils # 0.0 Nucleated Red Blood Cells # 0.0 Sodium Level 140 Potassium Level 3.3 L Chloride Level 104 Carbon Dioxide Level 29 Anion Gap 10 Blood Urea Nitrogen 10 Creatinine 0.57 L Glucose Level 119 # Calcium Level 8.6 Lab Scanned Report REFERENCE LAB Medications Medications Current Medications Ondansetron HCl (Zofran Inj) 4 mg Q6H PRN IV NAUSEA AND/OR VOMITING Last administered on 05/17/16 11:19; Admin Dose 4 MG; Start 04/11/16 at 22:30 Acetaminophen (Tylenol Tab) 650 mg Q6H PRN PO PAIN LEVEL 1-3 OR FEVER; Start at 22:30 Morphine Sulfate (morphine) 2 mg Q4H PRN IV PAIN LEVEL 7-10 Last administered on 05/20/16 00:54; Admin Dose 2 MG; Start 04/11/16 at 22:30 Ascorbic Acid (Vitamin C) 500 mg DAILY GTB Last administered on 05/11/16 09:13 ; Admin Dose 500 MG; Start 04/12/16 at 09:00 Bisacodyl (Dulcolax) 10 mg DAILY PRN PO CONSTIPATION; Start 04/11/16 at 22:30 Chlorhexidine Gluconate (Peridex) 15 ml BID MM Last administered on 05/20/16 20:03; Admin Dose 15 ML; Start 04/12/16 at 09:00 Ferrous Sulfate (Feosol Liquid Cup) 300 mg BID GTB Last administered on 22:09; Admin Dose 300 MG; Start 04/12/16 at 09:00 Acetaminophen/ Hydrocodone Bitart ([place] (5/325)) 1 tab Q4 PRN GTB PAIN LEVEL 6 -10; Start 04/11/16 at 22:30 Lactulose (Enulose) 20 gm DAILY GTB Last administered on 05/11/16 09:12; Admin Dose 20 GM; Start 04/12/16 at 09:00 Quetiapine Fumarate (Seroquel) 25 mg BID@ GTB Last administered on 17:33; Admin Dose 25 MG; Start 04/12/16 at 09:00 Quetiapine Fumarate (Seroquel) 200 mg HS GTB Last administered on 05/10/16 21: 28; Admin Dose 200 MG; Start 04/12/16 at 21:00 Senna (Senokot) 1 tab QHS GTB Last administered on 05/11/16 22:09; Admin Dose 1 TAB; Start 04/12/16 at 21:00 Sodium Biphosphate/ Sodium Phosphate (Fleet Enema Pediatric) 66.6 ml DAILY PRN [place] CONSTIPATION; Start 04/11/16 at 22:30 Thiamine HCl (Vitamin B1) 100 mg DAILY GTB Last administered on 05/11/16 09:13 ; Admin Dose 100 MG; Start 04/12/16 at 09:00 Calcium Carbonate (Tums) 500 mg DAILY GTB Last administered on 05/11/16 09:13 ; Admin Dose 500 MG; Start 04/12/16 at 09:00 Multivitamins/ Minerals (Theragran-M) 1 tab DAILY PO Last administered on 09:13; Admin Dose 1 TAB; Start 04/12/16 at 09:00 Hydralazine HCl (Apresoline) 10 mg Q6H PRN IV SBP >160 Last administered on 16:38; Admin Dose 10 MG; Start 04/12/16 at 12:30 Famotidine (Pepcid) 20 mg Q12 GTB Last administered on 05/11/16 22:09; Admin Dose 20 MG; Start 04/19/16 at 21:00 Clonidine (Catapres) 0.1 mg Q6H PRN PO ELEVATED BLOOD PRESSURE; Start 04/24/16 at 23:30 Metoprolol Tartrate (Lopressor) 5 mg Q4H PRN IV PRN HR>110 Hold SBP<100; Start 04/28/16 at 13:30 Metoprolol Tartrate (Lopressor) 25 mg BID PO Last administered on 04/29/16 21: 29; Admin Dose 25 MG; Start 04/29/16 at 21:00; Status Future Hold Lorazepam (Ativan) 1 mg Q6 GTB Last administered on 05/12/16 03:11; Admin Dose 1 MG; Start 05/02/16 at 00:00 Aspirin (Aspirin) 81 mg DAILY PO Last administered on 05/11/16 09:13; Admin Dose 81 MG; Start 05/02/16 at 14:30 Chlordiazepoxide (Librium) 10 mg TID PO Last administered on 05/17/16 10:11; Admin Dose 10 MG; Start 05/04/16 at 09:00 Acetaminophen (Tylenol Liquid) 650 mg Q6H PRN GTB FEVER >101; Start 05/06/16 at 11:30 Furosemide (Lasix) 20 mg BID IV Last administered on 05/20/16 20:08; Admin Dose 20 MG; Start 05/06/16 at 21:00 Benazepril HCl (Lotensin) 10 mg DAILY PO ; Start 05/13/16 at 09:00 Clonidine HCl (Catapres-Tts 1 Patch) 1 patch Q7D TRANSDERM Last administered on 05/20/16 14:02; Admin Dose 1 PATCH; Start 05/13/16 at 13:00 Hydralazine HCl (Apresoline) 10 mg Q6H PRN IV SBP>170; Start 05/13/16 at 13:00 Lorazepam 2 mg 2 mg Q4 PRN IV AGITATION Last administered on 05/21/16 07:42; Admin Dose 2 MG; Start 05/16/16 at 16:00 Potassium Chloride/Dextrose/ Sod Cl (D5-NS + KCl 20 Meq) 1,000 ml @ 70 mls/hr [id number] IV Last administered on 05/20/16 19:59; Admin Dose 70 MLS/HR; Start at 19:00 LILI BRADEN May 21, 2016 12:33
--- NOTE | 2016-05-21 13:46 | CONS ---
Date/Time of Note Date/Time of Note DATE: 05/21/16 TIME: 13:37 Assessment/Plan Assessment/Plan Chief Complaint/Hosp Course 65 up male with acute hypoxic respiratory failure being admitted for sepsis secondary to ESBL bacteremia. Pt had a worsening normocytic anemia that was likely secondary to his underlying sepsis and antibiotic use. Pt is now off antibiotic and Hg has remained stable. PT had a bleeding trach site and found with and elevated PTT to 85. Pt was given SQ Vitamin K. He is no longer bleeding and PTT has decreased to 50's. Overnight Hg did drop by 2 units without any obvious source of bleed # Anemia -HG dropped to 7.6. will check state H/H. if Hg < 8 will transfuse 2 units of PRBC. check stool ob -s/p 5 days of V iron. now on po iron # Thrombocytopenia -likely secondary to sepsis and antibiotics. now resolved # Bleeding trach -resolved -not coagulopathic. PTT still elevated but patient is positive for a lupus anticoagulant #Pneumonia -currently off antibiotics #Nutrition -pt to have PEG replaced today Approximately 40 min were spent at patient's bedside and in coordination of his care Problems: Consultation Date/Type/Reason Admit Date/Time Apr 11, 2016 at 22:13 Initial Consult Date 04/21/16 Type of Consultation: Hematology Reason for Consultation anemia Referring Provider: ANNETTA AGUILAR MD 24 HR Interval Summary Free Text/Dictation pt pulled out peg tube and is scheduled for repeat peg placement today Exam/Review of Systems Vital Signs Vitals Vital Signs Date Time Temp Pulse Resp B/P Pulse Ox O2 Delivery O2 Flow Rate FiO2 05/21/16 12:17 101 05/21/16 11:05 29 96 30 05/21/16 07:59 98.2 155/90 05/21/16 06:40 Mechanical Ventilator Intake and Output 05/20/16 05/20/16 05/21/16 15:00 23:00 07:00 Intake Total 1000 ml Output Total 600 ml 800 ml Balance 400 ml -800 ml Exam Constitutional: alert, oriented Psych: no complaints Eyes: nl conjunctiva Neck: other (trach in place) Respiratory: clear to auscultation, normal air movement Cardiovascular: regular rate and rhythm Gastrointestinal: soft Musculoskeletal: nl extremities to inspection, nl gait and stance Results Result Diagram: 05/21/16 0658 05/21/16 0658 Results 24 hrs Laboratory Tests Test 3/30/17 19:20 05/21/16 06:50 05/21/16 06:58 05/21/16 10:31 Magnesium Level 1.3 L 1.3 L White Blood Count 6.3 Red Blood Count 2.78 #L Hemoglobin 7.6 #L Hematocrit 23.9 #L Mean Corpuscular Volume 86.0 Mean Corpuscular Hemoglobin 27.3 L Mean Corpuscular Hemoglobin Concent 31.8 L Red Cell Distribution Width 17.2 H Platelet Count 213 Mean Platelet Volume 11.9 H Neutrophils % 77.5 H Lymphocytes % 11.3 L Monocytes % 10.5 Eosinophils % 0.0 Basophils % 0.5 Nucleated Red Blood Cells % 0.0 Neutrophils # 4.9 Lymphocytes # 0.7 L Monocytes # 0.7 Eosinophils # 0.0 Basophils # 0.0 Nucleated Red Blood Cells # 0.0 Sodium Level 140 Potassium Level 3.3 L Chloride Level 104 Carbon Dioxide Level 29 Anion Gap 10 Blood Urea Nitrogen 10 Creatinine 0.57 L Glucose Level 119 # Calcium Level 8.6 Lab Scanned Report REFERENCE LAB Medications Medications Current Medications Ondansetron HCl (Zofran Inj) 4 mg Q6H PRN IV NAUSEA AND/OR VOMITING Last administered on 05/17/16 11:19; Admin Dose 4 MG; Start 04/11/16 at 22:30 Acetaminophen (Tylenol Tab) 650 mg Q6H PRN PO PAIN LEVEL 1-3 OR FEVER; Start at 22:30 Morphine Sulfate (morphine) 2 mg Q4H PRN IV PAIN LEVEL 7-10 Last administered on 05/20/16 00:54; Admin Dose 2 MG; Start 04/11/16 at 22:30 Ascorbic Acid (Vitamin C) 500 mg DAILY GTB Last administered on 05/11/16 09:13 ; Admin Dose 500 MG; Start 04/12/16 at 09:00 Bisacodyl (Dulcolax) 10 mg DAILY PRN PO CONSTIPATION; Start 04/11/16 at 22:30 Chlorhexidine Gluconate (Peridex) 15 ml BID MM Last administered on 05/20/16 20:03; Admin Dose 15 ML; Start 04/12/16 at 09:00 Ferrous Sulfate (Feosol Liquid Cup) 300 mg BID GTB Last administered on 22:09; Admin Dose 300 MG; Start 04/12/16 at 09:00 Acetaminophen/ Hydrocodone Bitart ([place] (5/325)) 1 tab Q4 PRN GTB PAIN LEVEL 6 -10; Start 04/11/16 at 22:30 Lactulose (Enulose) 20 gm DAILY GTB Last administered on 05/11/16 09:12; Admin Dose 20 GM; Start 04/12/16 at 09:00 Quetiapine Fumarate (Seroquel) 25 mg BID@ GTB Last administered on 17:33; Admin Dose 25 MG; Start 04/12/16 at 09:00 Quetiapine Fumarate (Seroquel) 200 mg HS GTB Last administered on 05/10/16 21: 28; Admin Dose 200 MG; Start 04/12/16 at 21:00 Senna (Senokot) 1 tab QHS GTB Last administered on 05/11/16 22:09; Admin Dose 1 TAB; Start 04/12/16 at 21:00 Sodium Biphosphate/ Sodium Phosphate (Fleet Enema Pediatric) 66.6 ml DAILY PRN [place] CONSTIPATION; Start 04/11/16 at 22:30 Thiamine HCl (Vitamin B1) 100 mg DAILY GTB Last administered on 05/11/16 09:13 ; Admin Dose 100 MG; Start 04/12/16 at 09:00 Calcium Carbonate (Tums) 500 mg DAILY GTB Last administered on 05/11/16 09:13 ; Admin Dose 500 MG; Start 04/12/16 at 09:00 Multivitamins/ Minerals (Theragran-M) 1 tab DAILY PO Last administered on 09:13; Admin Dose 1 TAB; Start 04/12/16 at 09:00 Hydralazine HCl (Apresoline) 10 mg Q6H PRN IV SBP >160 Last administered on 16:38; Admin Dose 10 MG; Start 04/12/16 at 12:30 Famotidine (Pepcid) 20 mg Q12 GTB Last administered on 05/11/16 22:09; Admin Dose 20 MG; Start 04/19/16 at 21:00 Clonidine (Catapres) 0.1 mg Q6H PRN PO ELEVATED BLOOD PRESSURE; Start 04/24/16 at 23:30 Metoprolol Tartrate (Lopressor) 5 mg Q4H PRN IV PRN HR>110 Hold SBP<100; Start 04/28/16 at 13:30 Metoprolol Tartrate (Lopressor) 25 mg BID PO Last administered on 04/29/16 21: 29; Admin Dose 25 MG; Start 04/29/16 at 21:00; Status Future Hold Lorazepam (Ativan) 1 mg Q6 GTB Last administered on 05/12/16 03:11; Admin Dose 1 MG; Start 05/02/16 at 00:00 Aspirin (Aspirin) 81 mg DAILY PO Last administered on 05/11/16 09:13; Admin Dose 81 MG; Start 05/02/16 at 14:30 Chlordiazepoxide (Librium) 10 mg TID PO Last administered on 05/17/16 10:11; Admin Dose 10 MG; Start 05/04/16 at 09:00 Acetaminophen (Tylenol Liquid) 650 mg Q6H PRN GTB FEVER >101; Start 05/06/16 at 11:30 Furosemide (Lasix) 20 mg BID IV Last administered on 05/20/16 20:08; Admin Dose 20 MG; Start 05/06/16 at 21:00 Benazepril HCl (Lotensin) 10 mg DAILY PO ; Start 05/13/16 at 09:00 Hydralazine HCl (Apresoline) 10 mg Q6H PRN IV SBP>170; Start 05/13/16 at 13:00 Lorazepam 2 mg 2 mg Q4 PRN IV AGITATION Last administered on 05/21/16 07:42; Admin Dose 2 MG; Start 05/16/16 at 16:00 Potassium Chloride/Dextrose/ Sod Cl (D5-NS + KCl 20 Meq) 1,000 ml @ 70 mls/hr [id number] IV Last administered on 05/20/16 19:59; Admin Dose 70 MLS/HR; Start at 19:00 Clonidine HCl (Catapres-Tts 2 Patch) 1 patch Q7D TRANSDERM ; Start 05/21/16 at 14:00 JESI MONTEMAYOR M.D. May 21, 2016 13:46
--- NOTE | 2016-05-21 13:56 | CONS ---
Date/Time of Note Date/Time of Note DATE: 05/21/16 TIME: 13:55 Consult Date/Type/Reason Admit Date/Time Apr 11, 2016 at 22:13 Initial Consult Date 04/21/16 Type of Consultation: pulmonary Ordering Provider: ANNETTA AGUILAR MD Subjective Patient remains stable no new events Objective Vital Signs Date Time Temp Pulse Resp B/P Pulse Ox O2 Delivery O2 Flow Rate FiO2 05/21/16 12:17 101 05/21/16 11:05 29 96 30 05/21/16 07:59 98.2 155/90 05/21/16 06:40 Mechanical Ventilator Intake and Output 05/20/16 05/20/16 05/21/16 15:00 23:00 07:00 Intake Total 1000 ml Output Total 600 ml 800 ml Balance 400 ml -800 ml Exam PHYSICAL EXAMINATION GENERAL: Elderly gentleman, chronically ill-appearing on mechanical ventilation VITAL SIGNS: see below. HEENT: Pupils equal, round, and reactive to light. Tracheostomy site clean and intact. CARDIAC: S1, S2, no added sounds or murmurs CHEST: Diminished air entry bilaterally. ABDOMEN: Mildly distended. Diminished bowel sounds EXTREMITIES: No cyanosis, clubbing edema +1 NEUROLOGIC: Generalized weakness Results/Medications Result Diagram: 05/21/16 0658 05/21/16 0658 Results 24 hrs Laboratory Tests Test 05/20/16 19:20 05/21/16 06:50 05/21/16 06:58 05/21/16 10:31 Magnesium Level 1.3 L 1.3 L White Blood Count 6.3 Red Blood Count 2.78 #L Hemoglobin 7.6 #L Hematocrit 23.9 #L Mean Corpuscular Volume 86.0 Mean Corpuscular Hemoglobin 27.3 L Mean Corpuscular Hemoglobin Concent 31.8 L Red Cell Distribution Width 17.2 H Platelet Count 213 Mean Platelet Volume 11.9 H Neutrophils % 77.5 H Lymphocytes % 11.3 L Monocytes % 10.5 Eosinophils % 0.0 Basophils % 0.5 Nucleated Red Blood Cells % 0.0 Neutrophils # 4.9 Lymphocytes # 0.7 L Monocytes # 0.7 Eosinophils # 0.0 Basophils # 0.0 Nucleated Red Blood Cells # 0.0 Sodium Level 140 Potassium Level 3.3 L Chloride Level 104 Carbon Dioxide Level 29 Anion Gap 10 Blood Urea Nitrogen 10 Creatinine 0.57 L Glucose Level 119 # Calcium Level 8.6 Lab Scanned Report REFERENCE LAB Medications Current Medications Ondansetron HCl (Zofran Inj) 4 mg Q6H PRN IV NAUSEA AND/OR VOMITING Last administered on 05/17/16 11:19; Admin Dose 4 MG; Start 04/11/16 at 22:30 Acetaminophen (Tylenol Tab) 650 mg Q6H PRN PO PAIN LEVEL 1-3 OR FEVER; Start at 22:30 Morphine Sulfate (morphine) 2 mg Q4H PRN IV PAIN LEVEL 7-10 Last administered on 05/20/16 00:54; Admin Dose 2 MG; Start 04/11/16 at 22:30 Ascorbic Acid (Vitamin C) 500 mg DAILY GTB Last administered on 05/11/16 09:13 ; Admin Dose 500 MG; Start 04/12/16 at 09:00 Bisacodyl (Dulcolax) 10 mg DAILY PRN PO CONSTIPATION; Start 04/11/16 at 22:30 Chlorhexidine Gluconate (Peridex) 15 ml BID MM Last administered on 05/20/16 20:03; Admin Dose 15 ML; Start 04/12/16 at 09:00 Ferrous Sulfate (Feosol Liquid Cup) 300 mg BID GTB Last administered on 22:09; Admin Dose 300 MG; Start 04/12/16 at 09:00 Acetaminophen/ Hydrocodone Bitart ([place] (5/325)) 1 tab Q4 PRN GTB PAIN LEVEL 6 -10; Start 04/11/16 at 22:30 Lactulose (Enulose) 20 gm DAILY GTB Last administered on 05/11/16 09:12; Admin Dose 20 GM; Start 04/12/16 at 09:00 Quetiapine Fumarate (Seroquel) 25 mg BID@ GTB Last administered on 17:33; Admin Dose 25 MG; Start 04/12/16 at 09:00 Quetiapine Fumarate (Seroquel) 200 mg HS GTB Last administered on 05/10/16 21: 28; Admin Dose 200 MG; Start 04/12/16 at 21:00 Senna (Senokot) 1 tab QHS GTB Last administered on 05/11/16 22:09; Admin Dose 1 TAB; Start 04/12/16 at 21:00 Sodium Biphosphate/ Sodium Phosphate (Fleet Enema Pediatric) 66.6 ml DAILY PRN [place] CONSTIPATION; Start 04/11/16 at 22:30 Thiamine HCl (Vitamin B1) 100 mg DAILY GTB Last administered on 05/11/16 09:13 ; Admin Dose 100 MG; Start 04/12/16 at 09:00 Calcium Carbonate (Tums) 500 mg DAILY GTB Last administered on 05/11/16 09:13 ; Admin Dose 500 MG; Start 04/12/16 at 09:00 Multivitamins/ Minerals (Theragran-M) 1 tab DAILY PO Last administered on 09:13; Admin Dose 1 TAB; Start 04/12/16 at 09:00 Hydralazine HCl (Apresoline) 10 mg Q6H PRN IV SBP >160 Last administered on 16:38; Admin Dose 10 MG; Start 04/12/16 at 12:30 Famotidine (Pepcid) 20 mg Q12 GTB Last administered on 05/11/16 22:09; Admin Dose 20 MG; Start 04/19/16 at 21:00 Clonidine (Catapres) 0.1 mg Q6H PRN PO ELEVATED BLOOD PRESSURE; Start 04/24/16 at 23:30 Metoprolol Tartrate (Lopressor) 5 mg Q4H PRN IV PRN HR>110 Hold SBP<100; Start 04/28/16 at 13:30 Metoprolol Tartrate (Lopressor) 25 mg BID PO Last administered on 04/29/16 21: 29; Admin Dose 25 MG; Start 04/29/16 at 21:00; Status Future Hold Lorazepam (Ativan) 1 mg Q6 GTB Last administered on 05/12/16 03:11; Admin Dose 1 MG; Start 05/02/16 at 00:00 Aspirin (Aspirin) 81 mg DAILY PO Last administered on 05/11/16 09:13; Admin Dose 81 MG; Start 05/02/16 at 14:30 Chlordiazepoxide (Librium) 10 mg TID PO Last administered on 05/17/16 10:11; Admin Dose 10 MG; Start 05/04/16 at 09:00 Acetaminophen (Tylenol Liquid) 650 mg Q6H PRN GTB FEVER >101; Start 05/06/16 at 11:30 Furosemide (Lasix) 20 mg BID IV Last administered on 05/20/16 20:08; Admin Dose 20 MG; Start 05/06/16 at 21:00 Benazepril HCl (Lotensin) 10 mg DAILY PO ; Start 05/13/16 at 09:00 Hydralazine HCl (Apresoline) 10 mg Q6H PRN IV SBP>170; Start 05/13/16 at 13:00 Lorazepam 2 mg 2 mg Q4 PRN IV AGITATION Last administered on 05/21/16 07:42; Admin Dose 2 MG; Start 05/16/16 at 16:00 Potassium Chloride/Dextrose/ Sod Cl (D5-NS + KCl 20 Meq) 1,000 ml @ 70 mls/hr [id number] IV Last administered on 05/20/16 19:59; Admin Dose 70 MLS/HR; Start at 19:00 Clonidine HCl (Catapres-Tts 2 Patch) 1 patch Q7D TRANSDERM ; Start 05/21/16 at 14:00 Assessment/Plan Chief Complaint/Hosp Course Assessment 1. Vent dependent respiratory failure 2. Dysphagia with G-tube 3. History of psychiatric disorder 4. Marked cachexia 5. Resolved thrombocytopenia 6. History of non-ST elevation RI Plan 1. Continue mechanical ventilation. Trial of CPAP, if stable will place on cool aerosol 2. Pending replacement of PEG tube 3. Continue DVT GI prophylaxis 4. Continue cardiac recommendations 5. Consider transfusion 1 unit packed red blood cells Disposition Consider discharge planning once PEG placed Problems: MARISOL EDDY MD, [facility] May 21, 2016 13:56
[2016-05-21] MEDS ORDERED: CLONIDINE 0.2 MG/24 HR PATCH TRANSDERM SCH (14:00)
[2016-05-21 15:23] LABS: HEMATOCRIT 30.7 % (42.0-52.0); HEMOGLOBIN 9.5 g/dl (14.0-18.0)
--- NOTE | 2016-05-21 17:28 | PN ---
Date/Time of Note Date/Time of Note DATE: 05/21/16 TIME: 17:23 Assessment/Plan VTE Prophylaxis VTE Prophylaxis Intervention: SCD's Lines/Catheters [facility] Type ([facility] PICC Line Central line still needed: Yes Urinary Cath still in place: Yes (Condom catheter) Reason Cath still needed: urinary retention Assessment/Plan Chief Complaint/Hosp Course ASSESSMENT AND PLAN: - Dysphagia, with G-tube. Status post G-tube removal by patient. Status post G-tube placement by Dr. Marcus 05/10, currently DC'd by patient. Pending G-tube placement today. - Bleeding from tracheostomy site, resolved. - Pancytopenia. Dr Gaona is following in hematology consultation. - Coagulopathy, resolved status post vitamin K. - NSTEMI, continue aspirin and Lovenox. Dr. Espitia is following patient in cardiology consultation. - Atrial fibrillation with rapid ventricular response. Continue metoprolol. Continue telemetry monitoring. - Bilateral pleural effusions, status post right sided thoracentesis. - Acute hypoxic respiratory failure. Dr. Anderson is following in pulmonology consultation. Continue ventilatory support and bronchodilators. - Possible healthcare-acquired left lower lung pneumonia versus aspiration. Continue antibiotics per ID. Dr. Rojas is following an infection disease consultation. - E. coli ESBL urinary tract infection, status post treatment. - Sepsis with Ecoli ESBL bacteremia 2 UTI, resolved. - History of chronic respiratory failure with tracheostomy. - Benign prostatic hypertrophy. - Schizoaffective disorder. Continue Seroquel and Ativan as needed for agitation. Discussed patient's condition and plan of care with patient's son who makes decision for his dad, he wants continue patient on vent support and G-tube feeding, discussed with patient other option of hospice, he said he thought about it but for right now he wants continue patient on G-tube feeding and ventilatory support. Continue Pepcid for peptic ulcer disease prophylaxis. Further recommendations based on clinical course. Plan of care discussed with Dr. Colunga. Problems: Subjective 24 Hr Interval Summary Free Text/Dictation Patient is awake alert, pending G-tube placement today. Patient with drop in hemoglobin today status post blood transfusion. Exam/Review of Systems Vital Signs Vitals Vital Signs Date Time Temp Pulse Resp B/P Pulse Ox O2 Delivery O2 Flow Rate FiO2 05/21/16 16:26 99 05/21/16 16:05 97.6 20 137/77 99 05/21/16 15:05 30 05/21/16 06:40 Mechanical Ventilator Intake and Output 05/20/16 05/20/16 05/21/16 14:59 22:59 06:59 Intake Total 1000 ml Output Total 600 ml 800 ml Balance 400 ml -800 ml Exam GENERAL: A well-developed, cachectic gentleman, on ventilatory support via tracheostomy. HEENT: Head is atraumatic, normocephalic. LYDIA. NECK: Supple, with tracheostomy at the base of the neck. LUNGS: Diminished at the bases. Patient has scattered severe rhonchi bilaterally. CARDIOVASCULAR: Normal S1, S2. No murmurs, gallops, clicks, rubs noted. ABDOMEN: Flat, soft, nondistended, nontender. Bowel sounds present. EXTREMITIES: Contractured. There is no edema, clubbing, cyanosis. Pulses equal bilaterally, 2+. SKIN: There is no rash, petechiae noted. NEUROLOGIC: Awake alert, with intermittent periods of confusion Results Result Diagram: 05/21/16 1450 05/21/16 0658 Results 24 hrs Laboratory Tests Test 05/20/16 19:20 05/21/16 06:50 05/21/16 06:58 05/21/16 10:31 Magnesium Level 1.3 L 1.3 L White Blood Count 6.3 Red Blood Count 2.78 #L Hemoglobin 7.6 #L Hematocrit 23.9 #L Mean Corpuscular Volume 86.0 Mean Corpuscular Hemoglobin 27.3 L Mean Corpuscular Hemoglobin Concent 31.8 L Red Cell Distribution Width 17.2 H Platelet Count 213 Mean Platelet Volume 11.9 H Neutrophils % 77.5 H Lymphocytes % 11.3 L Monocytes % 10.5 Eosinophils % 0.0 Basophils % 0.5 Nucleated Red Blood Cells % 0.0 Neutrophils # 4.9 Lymphocytes # 0.7 L Monocytes # 0.7 Eosinophils # 0.0 Basophils # 0.0 Nucleated Red Blood Cells # 0.0 Sodium Level 140 Potassium Level 3.3 L Chloride Level 104 Carbon Dioxide Level 29 Anion Gap 10 Blood Urea Nitrogen 10 Creatinine 0.57 L Glucose Level 119 # Calcium Level 8.6 Lab Scanned Report REFERENCE LAB Test 05/21/16 14:50 Hemoglobin 9.5 #L Hematocrit 30.7 #L Medications Medications Current Medications Ondansetron HCl (Zofran Inj) 4 mg Q6H PRN IV NAUSEA AND/OR VOMITING Last administered on 05/17/16 11:19; Admin Dose 4 MG; Start 04/11/16 at 22:30 Acetaminophen (Tylenol Tab) 650 mg Q6H PRN PO PAIN LEVEL 1-3 OR FEVER; Start at 22:30 Morphine Sulfate (morphine) 2 mg Q4H PRN IV PAIN LEVEL 7-10 Last administered on 05/20/16 00:54; Admin Dose 2 MG; Start 04/11/16 at 22:30 Ascorbic Acid (Vitamin C) 500 mg DAILY GTB Last administered on 05/11/16 09:13 ; Admin Dose 500 MG; Start 04/12/16 at 09:00 Bisacodyl (Dulcolax) 10 mg DAILY PRN PO CONSTIPATION; Start 04/11/16 at 22:30 Chlorhexidine Gluconate (Peridex) 15 ml BID MM Last administered on 05/20/16 20:03; Admin Dose 15 ML; Start 04/12/16 at 09:00 Ferrous Sulfate (Feosol Liquid Cup) 300 mg BID GTB Last administered on 22:09; Admin Dose 300 MG; Start 04/12/16 at 09:00 Acetaminophen/ Hydrocodone Bitart ([place] (5/325)) 1 tab Q4 PRN GTB PAIN LEVEL 6 -10; Start 04/11/16 at 22:30 Lactulose (Enulose) 20 gm DAILY GTB Last administered on 05/11/16 09:12; Admin Dose 20 GM; Start 04/12/16 at 09:00 Quetiapine Fumarate (Seroquel) 25 mg BID@ GTB Last administered on 17:33; Admin Dose 25 MG; Start 04/12/16 at 09:00 Quetiapine Fumarate (Seroquel) 200 mg HS GTB Last administered on 05/10/16 21: 28; Admin Dose 200 MG; Start 04/12/16 at 21:00 Senna (Senokot) 1 tab QHS GTB Last administered on 05/11/16 22:09; Admin Dose 1 TAB; Start 04/12/16 at 21:00 Sodium Biphosphate/ Sodium Phosphate (Fleet Enema Pediatric) 66.6 ml DAILY PRN [place] CONSTIPATION; Start 04/11/16 at 22:30 Thiamine HCl (Vitamin B1) 100 mg DAILY GTB Last administered on 05/11/16 09:13 ; Admin Dose 100 MG; Start 04/12/16 at 09:00 Calcium Carbonate (Tums) 500 mg DAILY GTB Last administered on 05/11/16 09:13 ; Admin Dose 500 MG; Start 04/12/16 at 09:00 Multivitamins/ Minerals (Theragran-M) 1 tab DAILY PO Last administered on 09:13; Admin Dose 1 TAB; Start 04/12/16 at 09:00 Hydralazine HCl (Apresoline) 10 mg Q6H PRN IV SBP >160 Last administered on 16:38; Admin Dose 10 MG; Start 04/12/16 at 12:30 Famotidine (Pepcid) 20 mg Q12 GTB Last administered on 05/11/16 22:09; Admin Dose 20 MG; Start 04/19/16 at 21:00 Clonidine (Catapres) 0.1 mg Q6H PRN PO ELEVATED BLOOD PRESSURE; Start 04/24/16 at 23:30 Metoprolol Tartrate (Lopressor) 5 mg Q4H PRN IV PRN HR>110 Hold SBP<100; Start 04/28/16 at 13:30 Metoprolol Tartrate (Lopressor) 25 mg BID PO Last administered on 04/29/16 21: 29; Admin Dose 25 MG; Start 04/29/16 at 21:00; Status Future Hold Lorazepam (Ativan) 1 mg Q6 GTB Last administered on 05/12/16 03:11; Admin Dose 1 MG; Start 05/02/16 at 00:00 Aspirin (Aspirin) 81 mg DAILY PO Last administered on 05/11/16 09:13; Admin Dose 81 MG; Start 05/02/16 at 14:30 Chlordiazepoxide (Librium) 10 mg TID PO Last administered on 05/17/16 10:11; Admin Dose 10 MG; Start 05/04/16 at 09:00 Acetaminophen (Tylenol Liquid) 650 mg Q6H PRN GTB FEVER >101; Start 05/06/16 at 11:30 Furosemide (Lasix) 20 mg BID IV Last administered on 05/20/16 20:08; Admin Dose 20 MG; Start 05/06/16 at 21:00 Benazepril HCl (Lotensin) 10 mg DAILY PO ; Start 05/13/16 at 09:00 Hydralazine HCl (Apresoline) 10 mg Q6H PRN IV SBP>170; Start 05/13/16 at 13:00 Lorazepam 2 mg 2 mg Q4 PRN IV AGITATION Last administered on 05/21/16 07:42; Admin Dose 2 MG; Start 05/16/16 at 16:00 Potassium Chloride/Dextrose/ Sod Cl (D5-NS + KCl 20 Meq) 1,000 ml @ 70 mls/hr [id number] IV Last administered on 05/20/16 19:59; Admin Dose 70 MLS/HR; Start at 19:00 Clonidine HCl (Catapres-Tts 2 Patch) 1 patch Q7D TRANSDERM Last administered on 05/21/16 15:11; Admin Dose 1 PATCH; Start 05/21/16 at 14:00 SHELBY BUNCH May 21, 2016 17:27
[2016-05-21] MEDS ORDERED: POTASSIUM CHLORIDE 20 MEQ in SOD CHLORIDE 0.9% 100 ML IVPB ONE (18:30)
[2016-05-21] MEDS: D5-NS + KCL 20 MEQ 1,000 ML IV SCH (19:01)
[2016-05-21] MEDS: SENNA TAB GTB SCH (21:00)
[2016-05-21] MEDS: QUETIAPINE 100 MG TAB GTB SCH (21:00)
[2016-05-22] VITALS (34 sets, daily range): BP systolic 102–171; BP diastolic 56–87; PULSE 23–93; RESP 12–23
[2016-05-22] MEDS: ALBUTEROL HFA 8 GM INHALER INH SCH ×4 (03:35→21:35)
[2016-05-22] MEDS: IPRATROPIUM (HFA) 12.9 GM INHALER INH SCH ×4 (03:35→21:35)
[2016-05-22] MEDS: LORAZEPAM 1 MG TAB GTB SCH ×5 (06:00→23:22)
--- NOTE | 2016-05-22 07:09 | GILP ---
DATE OF PROCEDURE: NAME OF PROCEDURE: Esophagogastroduodenoscopy with percutaneous endoscopic gastrostomy tube placeme nt. PREOPERATIVE DIAGNOSIS: The patient has a history of dysphagia, status post tracheostomy. The nick ent failed a swallowing evaluation. Because of this, patient needs a percutaneous endoscopic gastro stomy tube. POSTOPERATIVE DIAGNOSES: The patient has a history of dysphagia, status post tracheostomy. The pat ient failed a swallowing evaluation. Because of this, patient needs a percutaneous endoscopic gastr ostomy tube. DESCRIPTION OF PROCEDURE: After the informed written consent was obtained, the patient was asked to lie in the supine position. Intravenous anesthesia was given by anesthesiologist, Dr. Crespo. Whe n the patient became somnolent, the Olympus video upper endoscope was introduced into the oropharynx , then into the esophagus. Esophagus, stomach and duodenum appeared normal. Old gastrostomy site i s noted. The anterior abdominal wall was prepared with Betadine and alcohol, 2 mL of 2% Xylocaine w as infiltrated at the old gastrostomy site. Through this area, a trocar was inserted into the stomac h and the stylet was removed. Through the trocar, a guidewire was inserted into the stomach and the guidewire was grabbed with a polypectomy snare and then it was brought out through the mouth along with the endoscope. To this end of the guidewire, a #20 Microvasive G-tube was tied in a loop fashi on and then brought out through the abdominal wall incision. Retention bumper was placed over the G -tube close to the skin. Tapered end of the gastrostomy tube was cut, and the adapter was placed an d the procedure was terminated. PLAN: Recommend starting G-tube feeding in a.m. Dictated By: CICI CALIX MD NC/NTS Conf#: [id number] DID#: [id number] CC: ANNETTA AGUILAR MD;*EndCC*
[2016-05-22 07:33] LABS: ADD SCAN DIFF NO
[2016-05-22 07:36] LABS: BASOPHILS % 0.3 % (0.0-2.0); HEMATOCRIT 29.9 % (42.0-52.0); HEMOGLOBIN 9.2 g/dl (14.0-18.0); LYMPHOCYTES # 0.7 10^3/ul (0.8-2.9); LYMPHOCYTES % 10.2 % (15.0-51.0); MEAN CORPUSCULAR HEMOGLOBIN 27.7 pg (29.0-33.0); MEAN CORPUSCULAR HGB CONC 30.8 g/dl (32.0-37.0); MEAN CORPUSCULAR VOLUME 90.1 fl (82.0-101.0); MEAN PLATELET VOLUME 11.4 fl (7.4-10.4); MONOCYTE # 0.5 10^3/ul (0.3-0.9); MONOCYTES % 8.2 % (0.0-11.0); NEUTROPHIL # 5.3 10^3/ul (1.6-7.5); NEUTROPHILS % 81.1 % (39.0-77.0); PLATELET COUNT 183 10^3/UL (140-415); RED BLOOD COUNT 3.32 10^6/ul (4.70-6.10); RED CELL DISTRIBUTION WIDTH 17.3 % (11.5-14.5); WHITE BLOOD COUNT 6.5 10^3/ul (4.8-10.8)
[2016-05-22 08:55] LABS: POTASSIUM 3.7 mmol/L (3.5-5.1)
[2016-05-22 08:58] LABS: CREATININE 0.66 mg/dl (0.61-1.24)
[2016-05-22 08:59] LABS: CALCIUM 8.9 mg/dl (8.4-10.2)
[2016-05-22] MEDS: LACTULOSE 30ML CUP GTB SCH (09:03)
[2016-05-22] MEDS: FERROUS SULFATE 60 MG/ML 5ML CUP GTB SCH ×2 (09:03→20:29)
[2016-05-22] MEDS: CHLORHEXIDINE GLUCONATE 15 ML UD CUP MM SCH ×2 (09:03→20:29)
[2016-05-22] MEDS: BENAZEPRIL 10 MG TAB PO SCH (09:04)
[2016-05-22] MEDS: FAMOTIDINE 20 MG TAB GTB SCH ×2 (09:04→20:29)
[2016-05-22] MEDS: CALCIUM CARBONATE 500 MG CHEW TAB GTB SCH (09:04)
[2016-05-22] MEDS: ASPIRIN 81 MG TAB PO SCH (09:04)
[2016-05-22] MEDS: MULTIVITAMINS/MINERALS TAB PO SCH (09:04)
[2016-05-22] MEDS: FUROSEMIDE 20 MG INJ IV SCH ×2 (09:04→20:35)
[2016-05-22] MEDS: THIAMINE 100 MG TAB GTB SCH (09:04)
[2016-05-22] MEDS: ASCORBIC ACID 500 MG TAB GTB SCH (09:04)
[2016-05-22] MEDS: CHLORDIAZEPOXIDE 5 MG CAP PO SCH ×3 (09:11→20:29)
[2016-05-22] MEDS: QUETIAPINE 25 MG TAB GTB SCH ×2 (10:00→18:08)
--- NOTE | 2016-05-22 12:08 | CONS ---
Date/Time of Note Date/Time of Note DATE: 05/22/16 TIME: 12:01 Assessment/Plan Assessment/Plan Additional Assessment/Plan Wide Complex Tachycardia with episodes of PACs and Bradycardia ACS Respiratory failure s/p Trach CHF Hypertension Dysphagia s/p PEG UTI Anemia Electrolyte abnormality Continue Vent support and pulmonary toiletry Continue Benazepril and clonidine patch Continue Librium Continue Lactulose Continue GI prophylaxis Continue Multi Vitamins Monitor on Telemetry Consultation Date/Type/Reason Admit Date/Time Apr 11, 2016 at 22:13 Constitutional: requiring IVF, requiring O2 Eyes: no complaints ENT: no complaints Respiratory: no complaints Cardiovascular: no complaints Gastrointestinal: no complaints Genitourinary: no complaints Musculoskeletal: no complaints Skin: no complaints Neurologic: no complaints Endocrine: no complaints Psychological: no complaints Immunologic: no complaints Social History Alcohol Use: none Smoking Status: Former smoker Drug Use: none Exam/Review of Systems Vital Signs Vitals Vital Signs Date Time Temp Pulse Resp B/P Pulse Ox O2 Delivery O2 Flow Rate FiO2 05/22/16 11:40 98.3 88 17 139/87 95 05/22/16 11:06 30 05/22/16 10:32 Mechanical Ventilator Intake and Output 05/21/16 05/21/16 05/22/16 15:00 23:00 07:00 Output Total 250 ml 800 ml Balance -250 ml -800 ml Exam Constitutional: non-verbal Head: atraumatic, normocephalic Neck: other (Trach on ventilator) Respiratory: other (mechanical breath sounds heard bilaterally) Cardiovascular: regular rate and rhythm Gastrointestinal: nl liver, spleen, non-tender, soft Extremities: normal pulses Results Result Diagram: 05/22/16 0640 05/22/16 0640 Results 24 hrs Laboratory Tests Test 05/21/16 14:50 05/22/16 06:40 Hemoglobin 9.5 #L 9.2 L Hematocrit 30.7 #L 29.9 L White Blood Count 6.5 Red Blood Count 3.32 L Mean Corpuscular Volume 90.1 Mean Corpuscular Hemoglobin 27.7 L Mean Corpuscular Hemoglobin Concent 30.8 L Red Cell Distribution Width 17.3 H Platelet Count 183 Mean Platelet Volume 11.4 H Neutrophils % 81.1 H Lymphocytes % 10.2 L Monocytes % 8.2 Eosinophils % 0.0 Basophils % 0.3 Nucleated Red Blood Cells % 0.0 Neutrophils # 5.3 Lymphocytes # 0.7 L Monocytes # 0.5 Eosinophils # 0.0 Basophils # 0.0 Nucleated Red Blood Cells # 0.0 Sodium Level 145 H Potassium Level 3.7 Chloride Level 111 H Carbon Dioxide Level 28 Anion Gap 10 Blood Urea Nitrogen 17 Creatinine 0.66 Glucose Level 83 Calcium Level 8.9 Medications Medications Current Medications Ondansetron HCl (Zofran Inj) 4 mg Q6H PRN IV NAUSEA AND/OR VOMITING Last administered on 05/17/16 11:19; Admin Dose 4 MG; Start 04/11/16 at 22:30 Acetaminophen (Tylenol Tab) 650 mg Q6H PRN PO PAIN LEVEL 1-3 OR FEVER; Start at 22:30 Morphine Sulfate (morphine) 2 mg Q4H PRN IV PAIN LEVEL 7-10 Last administered on 05/20/16 00:54; Admin Dose 2 MG; Start 04/11/16 at 22:30 Ascorbic Acid (Vitamin C) 500 mg DAILY GTB Last administered on 05/22/16 09:04 ; Admin Dose 500 MG; Start 04/12/16 at 09:00 Bisacodyl (Dulcolax) 10 mg DAILY PRN PO CONSTIPATION; Start 04/11/16 at 22:30 Chlorhexidine Gluconate (Peridex) 15 ml BID MM Last administered on 05/22/16 09 :03; Admin Dose 15 ML; Start 04/12/16 at 09:00 Ferrous Sulfate (Feosol Liquid Cup) 300 mg BID GTB Last administered on 09:03; Admin Dose 300 MG; Start 04/12/16 at 09:00 Acetaminophen/ Hydrocodone Bitart ([place] (5/325)) 1 tab Q4 PRN GTB PAIN LEVEL 6 -10; Start 04/11/16 at 22:30 Lactulose (Enulose) 20 gm DAILY GTB Last administered on 05/22/16 09:03; Admin Dose 20 GM; Start 04/12/16 at 09:00 Quetiapine Fumarate (Seroquel) 25 mg BID@ GTB Last administered on 10:00; Admin Dose 25 MG; Start 04/12/16 at 09:00 Quetiapine Fumarate (Seroquel) 200 mg HS GTB Last administered on 05/10/16 21: 28; Admin Dose 200 MG; Start 04/12/16 at 21:00 Senna (Senokot) 1 tab QHS GTB Last administered on 05/11/16 22:09; Admin Dose 1 TAB; Start 04/12/16 at 21:00 Sodium Biphosphate/ Sodium Phosphate (Fleet Enema Pediatric) 66.6 ml DAILY PRN [place] CONSTIPATION; Start 04/11/16 at 22:30 Thiamine HCl (Vitamin B1) 100 mg DAILY GTB Last administered on 05/22/16 09:04 ; Admin Dose 100 MG; Start 04/12/16 at 09:00 Calcium Carbonate (Tums) 500 mg DAILY GTB Last administered on 05/22/16 09:04; Admin Dose 500 MG; Start 04/12/16 at 09:00 Multivitamins/ Minerals (Theragran-M) 1 tab DAILY PO Last administered on 09:04; Admin Dose 1 TAB; Start 04/12/16 at 09:00 Hydralazine HCl (Apresoline) 10 mg Q6H PRN IV SBP >160 Last administered on 16:38; Admin Dose 10 MG; Start 04/12/16 at 12:30 Famotidine (Pepcid) 20 mg Q12 GTB Last administered on 05/22/16 09:04; Admin Dose 20 MG; Start 04/19/16 at 21:00 Clonidine (Catapres) 0.1 mg Q6H PRN PO ELEVATED BLOOD PRESSURE; Start 04/24/16 at 23:30 Metoprolol Tartrate (Lopressor) 5 mg Q4H PRN IV PRN HR>110 Hold SBP<100; Start 04/28/16 at 13:30 Metoprolol Tartrate (Lopressor) 25 mg BID PO Last administered on 04/29/16 21: 29; Admin Dose 25 MG; Start 04/29/16 at 21:00; Status Future Hold Lorazepam (Ativan) 1 mg Q6 GTB Last administered on 05/22/16 11:13; Admin Dose 1 MG; Start 05/02/16 at 00:00 Aspirin (Aspirin) 81 mg DAILY PO Last administered on 05/22/16 09:04; Admin Dose 81 MG; Start 05/02/16 at 14:30 Chlordiazepoxide (Librium) 10 mg TID PO Last administered on 05/22/16 09:11; Admin Dose 10 MG; Start 05/04/16 at 09:00 Acetaminophen (Tylenol Liquid) 650 mg Q6H PRN GTB FEVER >101; Start 05/06/16 at 11:30 Furosemide (Lasix) 20 mg BID IV Last administered on 05/22/16 09:04; Admin Dose 20 MG; Start 05/06/16 at 21:00 Benazepril HCl (Lotensin) 10 mg DAILY PO Last administered on 05/22/16 09:04; Admin Dose 10 MG; Start 05/13/16 at 09:00 Hydralazine HCl (Apresoline) 10 mg Q6H PRN IV SBP>170; Start 05/13/16 at 13:00 Lorazepam (Ativan) 2 mg Q4 PRN IV AGITATION Last administered on 05/21/16 07: 42; Admin Dose 2 MG; Start 05/16/16 at 16:00 Clonidine HCl (Catapres-Tts 2 Patch) 1 patch Q7D TRANSDERM Last administered on 05/21/16 15:11; Admin Dose 1 PATCH; Start 05/21/16 at 14:00 MYRIAM JIMENEZ M.D. May 22, 2016 12:08
--- NOTE | 2016-05-22 12:24 | PN ---
Date/Time of Note Date/Time of Note DATE: 05/22/16 TIME: 12:23 Assessment/Plan VTE Prophylaxis VTE Prophylaxis Intervention: other Lines/Catheters IV Catheter Type (from [facility]): PICC Line Central line still needed: Yes Urinary Cath still in place: Yes (Condom catheter) Reason Cath still needed: skin wounds contaminated by urine Assessment/Plan Chief Complaint/Hosp Course - Dysphagia, with G-tube. Status post G-tube removal by patient. Status post G -tube placement by Dr. Marcus 05/10, currently DC'd by patient. Pending G-tube placement today. - Bleeding from tracheostomy site, resolved. - Pancytopenia. Dr Gaona is following in hematology consultation. - Coagulopathy, resolved status post vitamin K. - NSTEMI, continue aspirin and Lovenox. Dr. Espitia is following patient in cardiology consultation. - Atrial fibrillation with rapid ventricular response. Continue metoprolol. Continue telemetry monitoring. - Bilateral pleural effusions, status post right sided thoracentesis. - Acute hypoxic respiratory failure. Dr. Anderson is following in pulmonology consultation. Continue ventilatory support and bronchodilators. - Possible healthcare-acquired left lower lung pneumonia versus aspiration. Continue antibiotics per ID. Dr. Rojas is following an infection disease consultation. - E. coli ESBL urinary tract infection, status post treatment. - Sepsis with Ecoli ESBL bacteremia 2 UTI, resolved. - History of chronic respiratory failure with tracheostomy. - Benign prostatic hypertrophy. - Schizoaffective disorder. Continue Seroquel and Ativan as needed for agitation. Problems: Subjective 24 Hr Interval Summary Free Text/Dictation Patient asleep, on ventilator via trach Exam/Review of Systems Vital Signs Vitals Vital Signs Date Time Temp Pulse Resp B/P Pulse Ox O2 Delivery O2 Flow Rate FiO2 05/22/16 12:21 85 05/22/16 11:40 98.3 17 139/87 95 05/22/16 11:06 30 05/22/16 10:32 Mechanical Ventilator Intake and Output 05/21/16 05/21/16 05/22/16 15:00 23:00 07:00 Output Total 250 ml 800 ml Balance -250 ml -800 ml Exam Constitutional: well developed Head: atraumatic, normocephalic Neck: supple Respiratory: diminished breath sounds Cardiovascular: regular rate and rhythm Gastrointestinal: non-tender, soft Extremities: normal pulses Results Result Diagram: 05/22/16 0640 05/22/16 0640 Results 24 hrs Laboratory Tests Test 05/21/16 14:50 05/22/16 06:40 Hemoglobin 9.5 #L 9.2 L Hematocrit 30.7 #L 29.9 L White Blood Count 6.5 Red Blood Count 3.32 L Mean Corpuscular Volume 90.1 Mean Corpuscular Hemoglobin 27.7 L Mean Corpuscular Hemoglobin Concent 30.8 L Red Cell Distribution Width 17.3 H Platelet Count 183 Mean Platelet Volume 11.4 H Neutrophils % 81.1 H Lymphocytes % 10.2 L Monocytes % 8.2 Eosinophils % 0.0 Basophils % 0.3 Nucleated Red Blood Cells % 0.0 Neutrophils # 5.3 Lymphocytes # 0.7 L Monocytes # 0.5 Eosinophils # 0.0 Basophils # 0.0 Nucleated Red Blood Cells # 0.0 Sodium Level 145 H Potassium Level 3.7 Chloride Level 111 H Carbon Dioxide Level 28 Anion Gap 10 Blood Urea Nitrogen 17 Creatinine 0.66 Glucose Level 83 Calcium Level 8.9 Medications Medications Current Medications Ondansetron HCl (Zofran Inj) 4 mg Q6H PRN IV NAUSEA AND/OR VOMITING Last administered on 05/17/16 11:19; Admin Dose 4 MG; Start 04/11/16 at 22:30 Acetaminophen (Tylenol Tab) 650 mg Q6H PRN PO PAIN LEVEL 1-3 OR FEVER; Start at 22:30 Morphine Sulfate (morphine) 2 mg Q4H PRN IV PAIN LEVEL 7-10 Last administered on 05/20/16 00:54; Admin Dose 2 MG; Start 04/11/16 at 22:30 Ascorbic Acid (Vitamin C) 500 mg DAILY GTB Last administered on 05/22/16 09:04 ; Admin Dose 500 MG; Start 04/12/16 at 09:00 Bisacodyl (Dulcolax) 10 mg DAILY PRN PO CONSTIPATION; Start 04/11/16 at 22:30 Chlorhexidine Gluconate (Peridex) 15 ml BID MM Last administered on 05/22/16 09 :03; Admin Dose 15 ML; Start 04/12/16 at 09:00 Ferrous Sulfate (Feosol Liquid Cup) 300 mg BID GTB Last administered on 09:03; Admin Dose 300 MG; Start 04/12/16 at 09:00 Acetaminophen/ Hydrocodone Bitart ([place] (5/325)) 1 tab Q4 PRN GTB PAIN LEVEL 6 -10; Start 04/11/16 at 22:30 Lactulose (Enulose) 20 gm DAILY GTB Last administered on 05/22/16 09:03; Admin Dose 20 GM; Start 04/12/16 at 09:00 Quetiapine Fumarate (Seroquel) 25 mg BID@ GTB Last administered on 10:00; Admin Dose 25 MG; Start 04/12/16 at 09:00 Quetiapine Fumarate (Seroquel) 200 mg HS GTB Last administered on 05/10/16 21: 28; Admin Dose 200 MG; Start 04/12/16 at 21:00 Senna (Senokot) 1 tab QHS GTB Last administered on 05/11/16 22:09; Admin Dose 1 TAB; Start 04/12/16 at 21:00 Sodium Biphosphate/ Sodium Phosphate (Fleet Enema Pediatric) 66.6 ml DAILY PRN [place] CONSTIPATION; Start 04/11/16 at 22:30 Thiamine HCl (Vitamin B1) 100 mg DAILY GTB Last administered on 05/22/16 09:04 ; Admin Dose 100 MG; Start 04/12/16 at 09:00 Calcium Carbonate (Tums) 500 mg DAILY GTB Last administered on 05/22/16 09:04; Admin Dose 500 MG; Start 04/12/16 at 09:00 Multivitamins/ Minerals (Theragran-M) 1 tab DAILY PO Last administered on 09:04; Admin Dose 1 TAB; Start 04/12/16 at 09:00 Hydralazine HCl (Apresoline) 10 mg Q6H PRN IV SBP >160 Last administered on 16:38; Admin Dose 10 MG; Start 04/12/16 at 12:30 Famotidine (Pepcid) 20 mg Q12 GTB Last administered on 05/22/16 09:04; Admin Dose 20 MG; Start 04/19/16 at 21:00 Clonidine (Catapres) 0.1 mg Q6H PRN PO ELEVATED BLOOD PRESSURE; Start 04/24/16 at 23:30 Metoprolol Tartrate (Lopressor) 5 mg Q4H PRN IV PRN HR>110 Hold SBP<100; Start 04/28/16 at 13:30 Metoprolol Tartrate (Lopressor) 25 mg BID PO Last administered on 04/29/16 21: 29; Admin Dose 25 MG; Start 04/29/16 at 21:00; Status Future Hold Lorazepam (Ativan) 1 mg Q6 GTB Last administered on 05/22/16 11:13; Admin Dose 1 MG; Start 05/02/16 at 00:00 Aspirin (Aspirin) 81 mg DAILY PO Last administered on 05/22/16 09:04; Admin Dose 81 MG; Start 05/02/16 at 14:30 Chlordiazepoxide (Librium) 10 mg TID PO Last administered on 05/22/16 09:11; Admin Dose 10 MG; Start 05/04/16 at 09:00 Acetaminophen (Tylenol Liquid) 650 mg Q6H PRN GTB FEVER >101; Start 05/06/16 at 11:30 Furosemide (Lasix) 20 mg BID IV Last administered on 05/22/16 09:04; Admin Dose 20 MG; Start 05/06/16 at 21:00 Benazepril HCl (Lotensin) 10 mg DAILY PO Last administered on 05/22/16 09:04; Admin Dose 10 MG; Start 05/13/16 at 09:00 Hydralazine HCl (Apresoline) 10 mg Q6H PRN IV SBP>170; Start 05/13/16 at 13:00 Lorazepam (Ativan) 2 mg Q4 PRN IV AGITATION Last administered on 05/21/16 07: 42; Admin Dose 2 MG; Start 05/16/16 at 16:00 Clonidine HCl (Catapres-Tts 2 Patch) 1 patch Q7D TRANSDERM Last administered on 05/21/16 15:11; Admin Dose 1 PATCH; Start 05/21/16 at 14:00 NEELAM RIBERA May 22, 2016 12:24
--- NOTE | 2016-05-22 19:15 | CONS ---
Date/Time of Note Date/Time of Note DATE: 05/22/16 TIME: 19:14 Consult Date/Type/Reason Admit Date/Time Apr 11, 2016 at 22:13 Initial Consult Date 04/21/16 Type of Consultation: pulmonary Ordering Provider: ANNETTA AGUILAR MD Subjective On vent. No events. Objective Vital Signs Date Time Temp Pulse Resp B/P Pulse Ox O2 Delivery O2 Flow Rate FiO2 05/22/16 18:00 99.0 62 18 137/78 98 Mechanical Ventilator 05/22/16 17:17 30 Intake and Output 05/21/16 05/21/16 05/22/16 15:00 23:00 07:00 Output Total 250 ml 800 ml Balance -250 ml -800 ml Exam IMP: 1. Vent dependent respiratory failure 2. Dysphagia with G-tube 3. History of psychiatric disorder 4. Marked cachexia 5. Resolved thrombocytopenia 6. History of non-ST elevation [place] RECS: 1. Continue mechanical ventilation. 2. Pending replacement of PEG tube 3. Continue DVT GI prophylaxis 4. Continue cardiac recommendations 5. CXR and am labs Results/Medications Result Diagram: 05/22/16 0640 05/22/16 0640 Results 24 hrs Laboratory Tests Test 05/22/16 06:40 White Blood Count 6.5 Red Blood Count 3.32 L Hemoglobin 9.2 L Hematocrit 29.9 L Mean Corpuscular Volume 90.1 Mean Corpuscular Hemoglobin 27.7 L Mean Corpuscular Hemoglobin Concent 30.8 L Red Cell Distribution Width 17.3 H Platelet Count 183 Mean Platelet Volume 11.4 H Neutrophils % 81.1 H Lymphocytes % 10.2 L Monocytes % 8.2 Eosinophils % 0.0 Basophils % 0.3 Nucleated Red Blood Cells % 0.0 Neutrophils # 5.3 Lymphocytes # 0.7 L Monocytes # 0.5 Eosinophils # 0.0 Basophils # 0.0 Nucleated Red Blood Cells # 0.0 Sodium Level 145 H Potassium Level 3.7 Chloride Level 111 H Carbon Dioxide Level 28 Anion Gap 10 Blood Urea Nitrogen 17 Creatinine 0.66 Glucose Level 83 Calcium Level 8.9 Medications Current Medications Ondansetron HCl (Zofran Inj) 4 mg Q6H PRN IV NAUSEA AND/OR VOMITING Last administered on 05/17/16t 11:19; Admin Dose 4 MG; Start 04/11/16 at 22:30 Acetaminophen (Tylenol Tab) 650 mg Q6H PRN PO PAIN LEVEL 1-3 OR FEVER; Start at 22:30 Morphine Sulfate (morphine) 2 mg Q4H PRN IV PAIN LEVEL 7-10 Last administered on 05/20/16 00:54; Admin Dose 2 MG; Start 04/11/16 at 22:30 Ascorbic Acid (Vitamin C) 500 mg DAILY GTB Last administered on 05/22/16 09:04 ; Admin Dose 500 MG; Start 04/12/16 at 09:00 Bisacodyl (Dulcolax) 10 mg DAILY PRN PO CONSTIPATION; Start 04/11/16 at 22:30 Chlorhexidine Gluconate (Peridex) 15 ml BID MM Last administered on 05/22/16 09 :03; Admin Dose 15 ML; Start 04/12/16 at 09:00 Ferrous Sulfate (Feosol Liquid Cup) 300 mg BID GTB Last administered on 09:03; Admin Dose 300 MG; Start 04/12/16 at 09:00 Acetaminophen/ Hydrocodone Bitart ([place] (5/325)) 1 tab Q4 PRN GTB PAIN LEVEL 6 -10; Start 04/11/16 at 22:30 Lactulose (Enulose) 20 gm DAILY GTB Last administered on 05/22/16 09:03; Admin Dose 20 GM; Start 04/12/16 at 09:00 Quetiapine Fumarate (Seroquel) 25 mg BID@ GTB Last administered on 18:08; Admin Dose 25 MG; Start 04/12/16 at 09:00 Quetiapine Fumarate (Seroquel) 200 mg HS GTB Last administered on 05/10/16 21: 28; Admin Dose 200 MG; Start 04/12/16 at 21:00 Senna (Senokot) 1 tab QHS GTB Last administered on 05/11/16 22:09; Admin Dose 1 TAB; Start 04/12/16 at 21:00 Sodium Biphosphate/ Sodium Phosphate (Fleet Enema Pediatric) 66.6 ml DAILY PRN [place] CONSTIPATION; Start 04/11/16 at 22:30 Thiamine HCl (Vitamin B1) 100 mg DAILY GTB Last administered on 05/22/16 09:04 ; Admin Dose 100 MG; Start 04/12/16 at 09:00 Calcium Carbonate (Tums) 500 mg DAILY GTB Last administered on 05/22/16 09:04; Admin Dose 500 MG; Start 04/12/16 at 09:00 Multivitamins/ Minerals (Theragran-M) 1 tab DAILY PO Last administered on 09:04; Admin Dose 1 TAB; Start 04/12/16 at 09:00 Hydralazine HCl (Apresoline) 10 mg Q6H PRN IV SBP >160 Last administered on 16:38; Admin Dose 10 MG; Start 04/12/16 at 12:30 Famotidine (Pepcid) 20 mg Q12 GTB Last administered on 05/22/16 09:04; Admin Dose 20 MG; Start 04/19/16 at 21:00 Clonidine (Catapres) 0.1 mg Q6H PRN PO ELEVATED BLOOD PRESSURE; Start 04/24/16 at 23:30 Metoprolol Tartrate (Lopressor) 5 mg Q4H PRN IV PRN HR>110 Hold SBP<100; Start 04/28/16 at 13:30 Metoprolol Tartrate (Lopressor) 25 mg BID PO Last administered on 04/29/16 21: 29; Admin Dose 25 MG; Start 04/29/16 at 21:00; Status Future Hold Lorazepam (Ativan) 1 mg Q6 GTB Last administered on 05/22/16 18:08; Admin Dose 1 MG; Start 05/02/16 at 00:00 Aspirin (Aspirin) 81 mg DAILY PO Last administered on 05/22/16 09:04; Admin Dose 81 MG; Start 05/02/16 at 14:30 Chlordiazepoxide (Librium) 10 mg TID PO Last administered on 05/22/16 13:18; Admin Dose 10 MG; Start 05/04/16 at 09:00 Acetaminophen (Tylenol Liquid) 650 mg Q6H PRN GTB FEVER >101; Start 05/06/16 at 11:30 Furosemide (Lasix) 20 mg BID IV Last administered on 05/22/16 09:04; Admin Dose 20 MG; Start 05/06/16 at 21:00 Benazepril HCl (Lotensin) 10 mg DAILY PO Last administered on 05/22/16 09:04; Admin Dose 10 MG; Start 05/13/16 at 09:00 Hydralazine HCl (Apresoline) 10 mg Q6H PRN IV SBP>170; Start 05/13/16 at 13:00 Lorazepam (Ativan) 2 mg Q4 PRN IV AGITATION Last administered on 05/21/16 07: 42; Admin Dose 2 MG; Start 05/16/16 at 16:00 Clonidine HCl (Catapres-Tts 2 Patch) 1 patch Q7D TRANSDERM Last administered on 05/21/16 15:11; Admin Dose 1 PATCH; Start 05/21/16 at 14:00 JOSE CRUZ CIFUENTES MD May 22, 2016 19:15
[2016-05-22] MEDS: SENNA TAB GTB SCH (20:29)
[2016-05-22] MEDS: QUETIAPINE 100 MG TAB GTB SCH (20:29)
[2016-05-23] VITALS (29 sets, daily range): BP systolic 76–103; BP diastolic 50–82; PULSE 67–113; RESP 12–20
[2016-05-23] MEDS: ALBUTEROL HFA 8 GM INHALER INH SCH ×4 (03:55→19:54)
[2016-05-23] MEDS: IPRATROPIUM (HFA) 12.9 GM INHALER INH SCH ×4 (03:55→19:55)
[2016-05-23] MEDS: LORAZEPAM 1 MG TAB GTB SCH ×4 (06:20→18:43)
[2016-05-23 06:35] LABS: ADD SCAN DIFF NO
[2016-05-23 07:01] LABS: BASOPHILS % 0.2 % (0.0-2.0); HEMATOCRIT 29.5 % (42.0-52.0); LYMPHOCYTES # 0.6 10^3/ul (0.8-2.9); LYMPHOCYTES % 11.9 % (15.0-51.0); MEAN CORPUSCULAR HEMOGLOBIN 27.6 pg (29.0-33.0); MEAN CORPUSCULAR HGB CONC 30.5 g/dl (32.0-37.0); MEAN CORPUSCULAR VOLUME 90.5 fl (82.0-101.0); MEAN PLATELET VOLUME 11.4 fl (7.4-10.4); MONOCYTE # 0.5 10^3/ul (0.3-0.9); MONOCYTES % 9.8 % (0.0-11.0); NEUTROPHILS % 77.9 % (39.0-77.0); PLATELET COUNT 185 10^3/UL (140-415); RED BLOOD COUNT 3.26 10^6/ul (4.70-6.10); RED CELL DISTRIBUTION WIDTH 16.8 % (11.5-14.5); WHITE BLOOD COUNT 5.2 10^3/ul (4.8-10.8)
[2016-05-23 07:08] LABS: POTASSIUM 3.1 mmol/L (3.5-5.1)
[2016-05-23 07:10] LABS: CREATININE 0.65 mg/dl (0.61-1.24)
[2016-05-23 07:11] LABS: CALCIUM 8.4 mg/dl (8.4-10.2)
[2016-05-23 09:02] LABS: AADO2 Arterial 277.5 mmHg (7.0-24.0); Allen Test ACCEPTAB; Arterial Base Excess 4.1 mmol/L (-3.0-3); Arterial COHb 0.3 % (0.0-3.0); Arterial Fraction of Oxyhgb 95.9 % (93.0-99.0); Arterial HCO3 30.6 mmol/L (22.0-26.0); Arterial MetHb 0.3 % (0.0-1.5); Arterial Total Hemglobin 11.5 g/dl (12.0-18.0); MODE VENT - AC
[2016-05-23] MEDS: MULTIVITAMINS/MINERALS TAB PO SCH (09:16)
[2016-05-23] MEDS: CALCIUM CARBONATE 500 MG CHEW TAB GTB SCH (09:16)
[2016-05-23] MEDS: THIAMINE 100 MG TAB GTB SCH (09:16)
[2016-05-23] MEDS: ASPIRIN 81 MG TAB PO SCH (09:16)
[2016-05-23] MEDS: ASCORBIC ACID 500 MG TAB GTB SCH (09:16)
[2016-05-23] MEDS: CHLORHEXIDINE GLUCONATE 15 ML UD CUP MM SCH ×2 (09:16→23:14)
[2016-05-23] MEDS: FERROUS SULFATE 60 MG/ML 5ML CUP GTB SCH ×2 (09:16→23:14)
[2016-05-23] MEDS: FAMOTIDINE 20 MG TAB GTB SCH ×2 (09:16→23:14)
[2016-05-23] MEDS: LACTULOSE 30ML CUP GTB SCH (09:16)
[2016-05-23] MEDS: FUROSEMIDE 20 MG INJ IV SCH ×2 (09:31→21:00)
[2016-05-23] MEDS: BENAZEPRIL 10 MG TAB PO SCH (09:31)
[2016-05-23] MEDS: QUETIAPINE 25 MG TAB GTB SCH ×2 (09:32→18:43)
[2016-05-23] MEDS: CHLORDIAZEPOXIDE 5 MG CAP PO SCH ×3 (09:32→21:00)
--- NOTE | 2016-05-23 11:42 | PN ---
Date/Time of Note Date/Time of Note DATE: 05/23/16 TIME: 11:41 Assessment/Plan VTE Prophylaxis VTE Prophylaxis Intervention: other Lines/Catheters IV [facility] Type [facility] PICC Line Central line still needed: Yes Urinary Cath still in place: No ([facility] CATH) Assessment/Plan Chief Complaint/Hosp Course - Dysphagia, with G-tube. Status post G-tube removal by patient. Status post G -tube placement by Dr. Marcus 05/10, currently DC'd by patient. Pending G-tube placement today. - Bleeding from tracheostomy site, resolved. - Pancytopenia. Dr Gaona is following in hematology consultation. - Coagulopathy, resolved status post vitamin K. - NSTEMI, continue aspirin and Lovenox. Dr. Espitia is following patient in cardiology consultation. - Atrial fibrillation with rapid ventricular response. Continue metoprolol. Continue telemetry monitoring. - Bilateral pleural effusions, status post right sided thoracentesis. - Acute hypoxic respiratory failure. Dr. Anderson is following in pulmonology consultation. Continue ventilatory support and bronchodilators. - Possible healthcare-acquired left lower lung pneumonia versus aspiration. Continue antibiotics per ID. Dr. Rojas is following an infection disease consultation. - E. coli ESBL urinary tract infection, status post treatment. - Sepsis with Ecoli ESBL bacteremia 2 UTI, resolved. - History of chronic respiratory failure with tracheostomy. - Benign prostatic hypertrophy. - Schizoaffective disorder. Continue Seroquel and Ativan as needed for agitation. Problems: Subjective 24 Hr Interval Summary Free Text/Dictation Patient sedated, on ventilator Exam/Review of Systems Vital Signs Vitals Vital Signs Date Time Temp Pulse Resp B/P Pulse Ox O2 Delivery O2 Flow Rate FiO2 05/23/16 09:15 72 16 94 60 05/23/16 08:11 98.3 100/58 05/23/16 04:00 Mechanical Ventilator Intake and Output 05/22/16 05/22/16 05/23/16 15:00 23:00 07:00 Output Total 2000 ml Balance -2000 ml Exam Constitutional: well developed Head: atraumatic, normocephalic Neck: supple Respiratory: diminished breath sounds Cardiovascular: regular rate and rhythm Gastrointestinal: non-tender, soft Extremities: normal pulses Results Result Diagram: 05/23/16 0615 05/23/16 0615 Results 24 hrs Laboratory Tests Test 05/23/16 06:15 05/23/16 06:48 05/23/16 06:49 White Blood Count 5.2 Red Blood Count 3.26 L Hemoglobin 9.0 L Hematocrit 29.5 L Mean Corpuscular Volume 90.5 Mean Corpuscular Hemoglobin 27.6 L Mean Corpuscular Hemoglobin Concent 30.5 L Red Cell Distribution Width 16.8 H Platelet Count 185 Mean Platelet Volume 11.4 H Neutrophils % 77.9 H Lymphocytes % 11.9 L Monocytes % 9.8 Eosinophils % 0.0 Basophils % 0.2 Nucleated Red Blood Cells % 0.0 Neutrophils # 4.0 Lymphocytes # 0.6 L Monocytes # 0.5 Eosinophils # 0.0 Basophils # 0.0 Nucleated Red Blood Cells # 0.0 Sodium Level 140 Potassium Level 3.1 L Chloride Level 105 Carbon Dioxide Level 30 Anion Gap 8 Blood Urea Nitrogen 25 H Creatinine 0.65 Glucose Level 159 Calcium Level 8.4 Bedside Glucose 145 Blood Gas Specimen Source Blood arterial Arterial Blood Date Drawn 05/23/2016 8:34:14 AM Arterial Blood pH (Temp corrected) 7.363 Arterial Blood pCO2 (Temp correct) 55.0 H Arterial Blood pO2 (Temp corrected) 89.8 Arterial Blood HCO3 30.6 H Arterial Blood Base Excess 4.1 H Arterial Blood Oxygen Saturation 96.5 Vishal Test ACCEPTAB Arterial Blood Gas Puncture Site Right Radial Arterial Blood Carboxyhemoglobin 0.3 Arterial Blood Methemoglobin 0.3 Blood Gas A-a O2 Differential 277.5 H Oxyhemoglobin Percent 95.9 Total Hemoglobin 11.5 L Blood Gas Temperature 37.0 Blood Gas Respiration Rate 12.0 Blood Gas Actual Respiration Rate 26 Blood Gas Modality VENT - AC FiO2 60.0 Blood Gas Tidal Volume 450.0 Blood Gas Low PEEP Setting 10.0 Blood Gas Notified Whom Mikayla THACKER Blood Gas Notified Time 05/23/2016 9:02:32 AM Medications Medications Current Medications Ondansetron HCl (Zofran Inj) 4 mg Q6H PRN IV NAUSEA AND/OR VOMITING Last administered on 05/17/16t 11:19; Admin Dose 4 MG; Start 04/11/16 at 22:30 Acetaminophen (Tylenol Tab) 650 mg Q6H PRN PO PAIN LEVEL 1-3 OR FEVER; Start at 22:30 Morphine Sulfate (morphine) 2 mg Q4H PRN IV PAIN LEVEL 7-10 Last administered on 05/20/16 00:54; Admin Dose 2 MG; Start 04/11/16 at 22:30 Ascorbic Acid (Vitamin C) 500 mg DAILY GTB Last administered on 05/23/16 09:16 ; Admin Dose 500 MG; Start 04/12/16 at 09:00 Bisacodyl (Dulcolax) 10 mg DAILY PRN PO CONSTIPATION; Start 04/11/16 at 22:30 Chlorhexidine Gluconate (Peridex) 15 ml BID MM Last administered on 05/23/16 09 :16; Admin Dose 15 ML; Start 04/12/16 at 09:00 Ferrous Sulfate (Feosol Liquid Cup) 300 mg BID GTB Last administered on 09:16; Admin Dose 300 MG; Start 04/12/16 at 09:00 Acetaminophen/ Hydrocodone Bitart ([place] (5/325)) 1 tab Q4 PRN GTB PAIN LEVEL 6 -10; Start 04/11/16 at 22:30 Lactulose (Enulose) 20 gm DAILY GTB Last administered on 05/23/16 09:16; Admin Dose 20 GM; Start 04/12/16 at 09:00 Quetiapine Fumarate (Seroquel) 25 mg BID@ GTB Last administered on 09:32; Admin Dose 25 MG; Start 04/12/16 at 09:00 Quetiapine Fumarate (Seroquel) 200 mg HS GTB Last administered on 05/22/16 20: 29; Admin Dose 200 MG; Start 04/12/16 at 21:00 Senna (Senokot) 1 tab QHS GTB Last administered on 05/22/16 20:29; Admin Dose 1 TAB; Start 04/12/16 at 21:00 Sodium Biphosphate/ Sodium Phosphate (Fleet Enema Pediatric) 66.6 ml DAILY PRN [place] CONSTIPATION; Start 04/11/16 at 22:30 Thiamine HCl (Vitamin B1) 100 mg DAILY GTB Last administered on 05/23/16 09:16 ; Admin Dose 100 MG; Start 04/12/16 at 09:00 Calcium Carbonate (Tums) 500 mg DAILY GTB Last administered on 05/23/16 09:16; Admin Dose 500 MG; Start 04/12/16 at 09:00 Multivitamins/ Minerals (Theragran-M) 1 tab DAILY PO Last administered on 09:16; Admin Dose 1 TAB; Start 04/12/16 at 09:00 Hydralazine HCl (Apresoline) 10 mg Q6H PRN IV SBP >160 Last administered on 16:38; Admin Dose 10 MG; Start 04/12/16 at 12:30 Famotidine (Pepcid) 20 mg Q12 GTB Last administered on 05/23/16 09:16; Admin Dose 20 MG; Start 04/19/16 at 21:00 Clonidine (Catapres) 0.1 mg Q6H PRN PO ELEVATED BLOOD PRESSURE; Start 04/24/16 at 23:30 Metoprolol Tartrate (Lopressor) 5 mg Q4H PRN IV PRN HR>110 Hold SBP<100; Start 04/28/16 at 13:30 Metoprolol Tartrate (Lopressor) 25 mg BID PO Last administered on 04/29/16 21: 29; Admin Dose 25 MG; Start 04/29/16 at 21:00; Status Future Hold Lorazepam (Ativan) 1 mg Q6 GTB Last administered on 05/22/16 23:22; Admin Dose 1 MG; Start 05/02/16 at 00:00 Aspirin (Aspirin) 81 mg DAILY PO Last administered on 05/23/16 09:16; Admin Dose 81 MG; Start 05/02/16 at 14:30 Chlordiazepoxide (Librium) 10 mg TID PO Last administered on 05/23/16 09:32; Admin Dose 10 MG; Start 05/04/16 at 09:00 Acetaminophen (Tylenol Liquid) 650 mg Q6H PRN GTB FEVER >101; Start 05/06/16 at 11:30 Furosemide (Lasix) 20 mg BID IV Last administered on 05/23/16 09:31; Admin Dose 20 MG; Start 05/06/16 at 21:00 Benazepril HCl (Lotensin) 10 mg DAILY PO Last administered on 05/23/16 09:31; Admin Dose 10 MG; Start 05/13/16 at 09:00 Hydralazine HCl (Apresoline) 10 mg Q6H PRN IV SBP>170; Start 05/13/16 at 13:00 Lorazepam (Ativan) 2 mg Q4 PRN IV AGITATION Last administered on 05/21/16 07: 42; Admin Dose 2 MG; Start 05/16/16 at 16:00 Clonidine HCl (Catapres-Tts 2 Patch) 1 patch Q7D TRANSDERM Last administered on 05/21/16 15:11; Admin Dose 1 PATCH; Start 05/21/16 at 14:00 NEELAM RIBERA May 23, 2016 11:42
--- NOTE | 2016-05-23 14:40 | RADRPT ---
PROCEDURE: XR Chest. CLINICAL INDICATION: Shortness of breath TECHNIQUE: Single view of the chest COMPARISON: Chest radiograph May 11, 2016 FINDINGS: There is a tracheostomy tube. There is a left-sided PICC with its tip at the mid SVC. Cardiac silhouette is mildly enlarged and there is mild vascular congestion. Cannot exclude bibasil ar air space disease. There are likely small bilateral pleural effusions. There is no pneumothorax. There is a chronic deformity of the left proximal humerus. There is no definite acute osseous abnor mality. IMPRESSION: 1. Mild pulmonary vascular congestion with likely small bilateral pleural effusions, slightly more prominent than previous study. Cannot exclude superimposed bibasilar airspace disease. 2. Lines and tubes as above. RPTAT: UU .Keshav Mock MD, Date Time Electronically viewed and signed by .Keshav Mock MD, on 05/23/2016 14:40 .K/
--- NOTE | 2016-05-23 15:16 | CONS ---
Date/Time of Note Date/Time of Note DATE: 05/23/16 TIME: 15:15 Assessment/Plan Assessment/Plan Additional Assessment/Plan Wide Complex Tachycardia with episodes of PACs and Bradycardia ACS Respiratory failure s/p Trach CHF Hypertension Dysphagia s/p PEG UTI Anemia Electrolyte abnormality Continue Vent support and pulmonary toiletry Continue Benazepril and clonidine patch Continue Librium Continue Lactulose Continue GI prophylaxis Continue Multi Vitamins Monitor on Telemetry Consultation Date/Type/Reason Admit Date/Time Apr 11, 2016 at 22:13 Initial Consult Date 04/21/16 Type of Consultation: pulmonary Referring Provider: ANNETTA AGUILAR MD Exam/Review of Systems Vital Signs Vitals Vital Signs Date Time Temp Pulse Resp B/P Pulse Ox O2 Delivery O2 Flow Rate FiO2 05/23/16 13:26 75 16 95 60 05/23/16 11:54 98.1 87/51 05/23/16 04:00 Mechanical Ventilator Intake and Output 05/22/16 05/22/16 05/23/16 15:00 23:00 07:00 Output Total 2000 ml Balance -2000 ml Exam Constitutional: non-verbal Head: atraumatic, normocephalic Neck: other (Trach on ventilator) Respiratory: other (mechanical breath sounds heard bilaterally) Cardiovascular: regular rate and rhythm Gastrointestinal: nl liver, spleen, non-tender, soft Extremities: normal pulses Results Result Diagram: 05/23/1615 05/23/16 0615 Results 24 hrs Laboratory Tests Test 05/23/16 06:15 05/23/16 06:48 05/23/16 06:49 White Blood Count 5.2 Red Blood Count 3.26 L Hemoglobin 9.0 L Hematocrit 29.5 L Mean Corpuscular Volume 90.5 Mean Corpuscular Hemoglobin 27.6 L Mean Corpuscular Hemoglobin Concent 30.5 L Red Cell Distribution Width 16.8 H Platelet Count 185 Mean Platelet Volume 11.4 H Neutrophils % 77.9 H Lymphocytes % 11.9 L Monocytes % 9.8 Eosinophils % 0.0 Basophils % 0.2 Nucleated Red Blood Cells % 0.0 Neutrophils # 4.0 Lymphocytes # 0.6 L Monocytes # 0.5 Eosinophils # 0.0 Basophils # 0.0 Nucleated Red Blood Cells # 0.0 Sodium Level 140 Potassium Level 3.1 L Chloride Level 105 Carbon Dioxide Level 30 Anion Gap 8 Blood Urea Nitrogen 25 H Creatinine 0.65 Glucose Level 159 Calcium Level 8.4 Bedside Glucose 145 Blood Gas Specimen Source Blood arterial Arterial Blood Date Drawn 05/23/2016 8:34:14 AM Arterial Blood pH (Temp corrected) 7.363 Arterial Blood pCO2 (Temp correct) 55.0 H Arterial Blood pO2 (Temp corrected) 89.8 Arterial Blood HCO3 30.6 H Arterial Blood Base Excess 4.1 H Arterial Blood Oxygen Saturation 96.5 Vishal Test ACCEPTAB Arterial Blood Gas Puncture Site Right Radial Arterial Blood Carboxyhemoglobin 0.3 Arterial Blood Methemoglobin 0.3 Blood Gas A-a O2 Differential 277.5 H Oxyhemoglobin Percent 95.9 Total Hemoglobin 11.5 L Blood Gas Temperature 37.0 Blood Gas Respiration Rate 12.0 Blood Gas Actual Respiration Rate 26 Blood Gas Modality VENT - AC FiO2 60.0 Blood Gas Tidal Volume 450.0 Blood Gas Low PEEP Setting 10.0 Blood Gas Notified Whom Mikayla THACKER Blood Gas Notified Time 05/23/2016 9:02:32 AM Medications Medications Current Medications Ondansetron HCl (Zofran Inj) 4 mg Q6H PRN IV NAUSEA AND/OR VOMITING Last administered on 05/17/16 11:19; Admin Dose 4 MG; Start 04/11/16 at 22:30 Acetaminophen (Tylenol Tab) 650 mg Q6H PRN PO PAIN LEVEL 1-3 OR FEVER; Start at 22:30 Morphine Sulfate (morphine) 2 mg Q4H PRN IV PAIN LEVEL 7-10 Last administered on 05/20/16 00:54; Admin Dose 2 MG; Start 04/11/16 at 22:30 Ascorbic Acid (Vitamin C) 500 mg DAILY GTB Last administered on 05/23/16 09:16 ; Admin Dose 500 MG; Start 04/12/16 at 09:00 Bisacodyl (Dulcolax) 10 mg DAILY PRN PO CONSTIPATION; Start 04/11/16 at 22:30 Chlorhexidine Gluconate (Peridex) 15 ml BID MM Last administered on 05/23/16 09 :16; Admin Dose 15 ML; Start 04/12/16 at 09:00 Ferrous Sulfate (Feosol Liquid Cup) 300 mg BID GTB Last administered on 09:16; Admin Dose 300 MG; Start 04/12/16 at 09:00 Acetaminophen/ Hydrocodone Bitart ([place] (5/325)) 1 tab Q4 PRN GTB PAIN LEVEL 6 -10; Start 04/11/16 at 22:30 Lactulose (Enulose) 20 gm DAILY GTB Last administered on 05/23/16 09:16; Admin Dose 20 GM; Start 04/12/16 at 09:00 Quetiapine Fumarate (Seroquel) 25 mg BID@ GTB Last administered on 09:32; Admin Dose 25 MG; Start 04/12/16 at 09:00 Quetiapine Fumarate (Seroquel) 200 mg HS GTB Last administered on 05/22/16 20: 29; Admin Dose 200 MG; Start 04/12/16 at 21:00 Senna (Senokot) 1 tab QHS GTB Last administered on 05/22/16 20:29; Admin Dose 1 TAB; Start 04/12/16 at 21:00 Sodium Biphosphate/ Sodium Phosphate (Fleet Enema Pediatric) 66.6 ml DAILY PRN [place] CONSTIPATION; Start 04/11/16 at 22:30 Thiamine HCl (Vitamin B1) 100 mg DAILY GTB Last administered on 05/23/16 09:16 ; Admin Dose 100 MG; Start 04/12/16 at 09:00 Calcium Carbonate (Tums) 500 mg DAILY GTB Last administered on 05/23/16 09:16; Admin Dose 500 MG; Start 04/12/16 at 09:00 Multivitamins/ Minerals (Theragran-M) 1 tab DAILY PO Last administered on 09:16; Admin Dose 1 TAB; Start 04/12/16 at 09:00 Hydralazine HCl (Apresoline) 10 mg Q6H PRN IV SBP >160 Last administered on 16:38; Admin Dose 10 MG; Start 04/12/16 at 12:30 Famotidine (Pepcid) 20 mg Q12 GTB Last administered on 05/23/16 09:16; Admin Dose 20 MG; Start 04/19/16 at 21:00 Clonidine (Catapres) 0.1 mg Q6H PRN PO ELEVATED BLOOD PRESSURE; Start 04/24/16 at 23:30 Metoprolol Tartrate (Lopressor) 5 mg Q4H PRN IV PRN HR>110 Hold SBP<100; Start 04/28/16 at 13:30 Metoprolol Tartrate (Lopressor) 25 mg BID PO Last administered on 04/29/16 21: 29; Admin Dose 25 MG; Start 04/29/16 at 21:00; Status Future Hold Lorazepam (Ativan) 1 mg Q6 GTB Last administered on 05/23/16 12:26; Admin Dose 1 MG; Start 05/02/16 at 00:00 Aspirin (Aspirin) 81 mg DAILY PO Last administered on 05/23/16 09:16; Admin Dose 81 MG; Start 05/02/16 at 14:30 Chlordiazepoxide (Librium) 10 mg TID PO Last administered on 05/23/16 13:57; Admin Dose 10 MG; Start 05/04/16 at 09:00 Acetaminophen (Tylenol Liquid) 650 mg Q6H PRN GTB FEVER >101; Start 05/06/16 at 11:30 Furosemide (Lasix) 20 mg BID IV Last administered on 05/23/16 09:31; Admin Dose 20 MG; Start 05/06/16 at 21:00 Benazepril HCl (Lotensin) 10 mg DAILY PO Last administered on 05/23/16 09:31; Admin Dose 10 MG; Start 05/13/16 at 09:00 Hydralazine HCl (Apresoline) 10 mg Q6H PRN IV SBP>170; Start 05/13/16 at 13:00 Lorazepam (Ativan) 2 mg Q4 PRN IV AGITATION Last administered on 05/21/16 07: 42; Admin Dose 2 MG; Start 05/16/16 at 16:00 Clonidine HCl (Catapres-Tts 2 Patch) 1 patch Q7D TRANSDERM Last administered on 05/21/16 15:11; Admin Dose 1 PATCH; Start 05/21/16 at 14:00 MYRIAM JIMENEZ M.D. May 23, 2016 15:16
[2016-05-23] MEDS ORDERED: SOD CHLORIDE 0.9% 250 ML IV ONE (15:30)
--- NOTE | 2016-05-23 16:45 | CONS ---
Date/Time of Note Date/Time of Note DATE: 05/23/16 TIME: 16:44 Consult Date/Type/Reason Admit Date/Time Apr 11, 2016 at 22:13 Initial Consult Date 04/21/16 Type of Consultation: pulmonary Ordering Provider: ANNETTA AGUILAR MD Subjective no events. Objective Vital Signs Date Time Temp Pulse Resp B/P Pulse Ox O2 Delivery O2 Flow Rate FiO2 05/23/16 16:21 73 05/23/16 15:45 18 94 60 05/23/16 15:37 97.7 86/53 05/23/16 15:32 Mechanical Ventilator Intake and Output 05/22/16 05/22/16 05/23/16 15:00 23:00 07:00 Output Total 2000 ml Balance -2000 ml Exam HEENT: Neck supple; no JVD; no LAD; trach CVS: RRR, S1 and S2 CHEST: Clear ABD: Soft, NT, + BS EXT: No c/c/e Results/Medications Result Diagram: 05/23/16 0615 05/23/16 0615 Results 24 hrs Laboratory Tests Test 05/23/16 06:15 05/23/16 06:48 05/23/16 06:49 White Blood Count 5.2 Red Blood Count 3.26 L Hemoglobin 9.0 L Hematocrit 29.5 L Mean Corpuscular Volume 90.5 Mean Corpuscular Hemoglobin 27.6 L Mean Corpuscular Hemoglobin Concent 30.5 L Red Cell Distribution Width 16.8 H Platelet Count 185 Mean Platelet Volume 11.4 H Neutrophils % 77.9 H Lymphocytes % 11.9 L Monocytes % 9.8 Eosinophils % 0.0 Basophils % 0.2 Nucleated Red Blood Cells % 0.0 Neutrophils # 4.0 Lymphocytes # 0.6 L Monocytes # 0.5 Eosinophils # 0.0 Basophils # 0.0 Nucleated Red Blood Cells # 0.0 Sodium Level 140 Potassium Level 3.1 L Chloride Level 105 Carbon Dioxide Level 30 Anion Gap 8 Blood Urea Nitrogen 25 H Creatinine 0.65 Glucose Level 159 Calcium Level 8.4 Bedside Glucose 145 Blood Gas Specimen Source Blood arterial Arterial Blood Date Drawn 05/23/2016 8:34:14 AM Arterial Blood pH (Temp corrected) 7.363 Arterial Blood pCO2 (Temp correct) 55.0 H Arterial Blood pO2 (Temp corrected) 89.8 Arterial Blood HCO3 30.6 H Arterial Blood Base Excess 4.1 H Arterial Blood Oxygen Saturation 96.5 Vishal Test ACCEPTAB Arterial Blood Gas Puncture Site Right Radial Arterial Blood Carboxyhemoglobin 0.3 Arterial Blood Methemoglobin 0.3 Blood Gas A-a O2 Differential 277.5 H Oxyhemoglobin Percent 95.9 Total Hemoglobin 11.5 L Blood Gas Temperature 37.0 Blood Gas Respiration Rate 12.0 Blood Gas Actual Respiration Rate 26 Blood Gas Modality VENT - AC FiO2 60.0 Blood Gas Tidal Volume 450.0 Blood Gas Low PEEP Setting 10.0 Blood Gas Notified Whom Mikayla THACKER Blood Gas Notified Time 05/23/2016 9:02:32 AM Medications Current Medications Ondansetron HCl (Zofran Inj) 4 mg Q6H PRN IV NAUSEA AND/OR VOMITING Last administered on 05/17/16 11:19; Admin Dose 4 MG; Start 04/11/16 at 22:30 Acetaminophen (Tylenol Tab) 650 mg Q6H PRN PO PAIN LEVEL 1-3 OR FEVER; Start at 22:30 Morphine Sulfate (morphine) 2 mg Q4H PRN IV PAIN LEVEL 7-10 Last administered on 05/20/16 00:54; Admin Dose 2 MG; Start 04/11/16 at 22:30 Ascorbic Acid (Vitamin C) 500 mg DAILY GTB Last administered on 05/23/16 09:16 ; Admin Dose 500 MG; Start 04/12/16 at 09:00 Bisacodyl (Dulcolax) 10 mg DAILY PRN PO CONSTIPATION; Start 04/11/16 at 22:30 Chlorhexidine Gluconate (Peridex) 15 ml BID MM Last administered on 05/23/16 09 :16; Admin Dose 15 ML; Start 04/12/16 at 09:00 Ferrous Sulfate (Feosol Liquid Cup) 300 mg BID GTB Last administered on 09:16; Admin Dose 300 MG; Start 04/12/16 at 09:00 Acetaminophen/ Hydrocodone Bitart ([place] (5/325)) 1 tab Q4 PRN GTB PAIN LEVEL 6 -10; Start 04/11/16 at 22:30 Lactulose (Enulose) 20 gm DAILY GTB Last administered on 05/23/16 09:16; Admin Dose 20 GM; Start 04/12/16 at 09:00 Quetiapine Fumarate (Seroquel) 25 mg BID@ GTB Last administered on 09:32; Admin Dose 25 MG; Start 04/12/16 at 09:00 Quetiapine Fumarate (Seroquel) 200 mg HS GTB Last administered on 05/22/16 20: 29; Admin Dose 200 MG; Start 04/12/16 at 21:00 Senna (Senokot) 1 tab QHS GTB Last administered on 05/22/16 20:29; Admin Dose 1 TAB; Start 04/12/16 at 21:00 Sodium Biphosphate/ Sodium Phosphate (Fleet Enema Pediatric) 66.6 ml DAILY PRN [place] CONSTIPATION; Start 04/11/16 at 22:30 Thiamine HCl (Vitamin B1) 100 mg DAILY GTB Last administered on 05/23/16 09:16 ; Admin Dose 100 MG; Start 04/12/16 at 09:00 Calcium Carbonate (Tums) 500 mg DAILY GTB Last administered on 05/23/16 09:16; Admin Dose 500 MG; Start 04/12/16 at 09:00 Multivitamins/ Minerals (Theragran-M) 1 tab DAILY PO Last administered on 09:16; Admin Dose 1 TAB; Start 04/12/16 at 09:00 Hydralazine HCl (Apresoline) 10 mg Q6H PRN IV SBP >160 Last administered on 16:38; Admin Dose 10 MG; Start 04/12/16 at 12:30 Famotidine (Pepcid) 20 mg Q12 GTB Last administered on 05/23/16 09:16; Admin Dose 20 MG; Start 04/19/16 at 21:00 Clonidine (Catapres) 0.1 mg Q6H PRN PO ELEVATED BLOOD PRESSURE; Start 04/24/16 at 23:30 Metoprolol Tartrate (Lopressor) 5 mg Q4H PRN IV PRN HR>110 Hold SBP<100; Start 04/28/16 at 13:30 Metoprolol Tartrate (Lopressor) 25 mg BID PO Last administered on 04/29/16 21: 29; Admin Dose 25 MG; Start 04/29/16 at 21:00; Status Future Hold Lorazepam (Ativan) 1 mg Q6 GTB Last administered on 05/23/16 12:26; Admin Dose 1 MG; Start 05/02/16 at 00:00 Aspirin (Aspirin) 81 mg DAILY PO Last administered on 05/23/16 09:16; Admin Dose 81 MG; Start 05/02/16 at 14:30 Chlordiazepoxide (Librium) 10 mg TID PO Last administered on 05/23/16 13:57; Admin Dose 10 MG; Start 05/04/16 at 09:00 Acetaminophen (Tylenol Liquid) 650 mg Q6H PRN GTB FEVER >101; Start 05/06/16 at 11:30 Furosemide (Lasix) 20 mg BID IV Last administered on 05/23/16 09:31; Admin Dose 20 MG; Start 05/06/16 at 21:00 Benazepril HCl (Lotensin) 10 mg DAILY PO Last administered on 05/23/16 09:31; Admin Dose 10 MG; Start 05/13/16 at 09:00 Hydralazine HCl (Apresoline) 10 mg Q6H PRN IV SBP>170; Start 05/13/16 at 13:00 Lorazepam (Ativan) 2 mg Q4 PRN IV AGITATION Last administered on 05/21/16 07: 42; Admin Dose 2 MG; Start 05/16/16 at 16:00 Clonidine HCl (Catapres-Tts 2 Patch) 1 patch Q7D TRANSDERM Last administered on 05/21/16 15:11; Admin Dose 1 PATCH; Start 05/21/16 at 14:00 Assessment/Plan Additional Assessment/Plan IMP: 1. Vent dependent respiratory failure 2. Dysphagia with G-tube 3. History of psychiatric disorder 4. Marked cachexia 5. Resolved thrombocytopenia 6. History of non-ST elevation MD RECS: 1. Continue mechanical ventilation. 2. TF/Free H20 3. Continue DVT GI prophylaxis 4. Am labs JOSE CRUZ CIFUENTES MD May 23, 2016 16:45
[2016-05-23] MEDS: QUETIAPINE 100 MG TAB GTB SCH (21:00)
[2016-05-23] MEDS: SENNA TAB GTB SCH (23:14)
[2016-05-23] MEDS: SOD CHLORIDE 0.9% 1,000 ML IV SCH (23:15)
[2016-05-24] VITALS (19 sets, daily range): BP systolic 82–136; BP diastolic 49–74; PULSE 74–97; RESP 16–27
[2016-05-24] MEDS: LORAZEPAM 1 MG TAB GTB SCH ×4 (00:29→18:09)
[2016-05-24] MEDS: IPRATROPIUM (HFA) 12.9 GM INHALER INH SCH ×3 (01:33→13:09)
[2016-05-24] MEDS: ALBUTEROL HFA 8 GM INHALER INH SCH ×3 (01:33→13:09)
[2016-05-24 07:09] LABS: ADD SCAN DIFF NO
[2016-05-24 07:16] LABS: ABNORMAL IP MESSAGE 1; BASOPHILS % 0.2 % (0.0-2.0); EOSINOPHILS % 0.4 % (0.0-7.0); HEMATOCRIT 28.1 % (42.0-52.0); HEMOGLOBIN 8.4 g/dl (14.0-18.0); LYMPHOCYTES # 0.5 10^3/ul (0.8-2.9); LYMPHOCYTES % 8.7 % (15.0-51.0); MEAN CORPUSCULAR HEMOGLOBIN 26.9 pg (29.0-33.0); MEAN CORPUSCULAR HGB CONC 29.9 g/dl (32.0-37.0); MEAN CORPUSCULAR VOLUME 90.1 fl (82.0-101.0); MEAN PLATELET VOLUME 11.5 fl (7.4-10.4); MONOCYTE # 0.4 10^3/ul (0.3-0.9); NEUTROPHIL # 4.6 10^3/ul (1.6-7.5); NEUTROPHILS % 83.5 % (39.0-77.0); PLATELET COUNT 151 10^3/UL (140-415); RED BLOOD COUNT 3.12 10^6/ul (4.70-6.10); RED CELL DISTRIBUTION WIDTH 16.9 % (11.5-14.5); WHITE BLOOD COUNT 5.5 10^3/ul (4.8-10.8)
[2016-05-24 07:39] LABS: POTASSIUM 3.6 mmol/L (3.5-5.1)
[2016-05-24 07:41] LABS: CREATININE 0.67 mg/dl (0.61-1.24)
[2016-05-24 07:42] LABS: CALCIUM 8.2 mg/dl (8.4-10.2)
[2016-05-24] MEDS: BENAZEPRIL 10 MG TAB PO SCH (09:00)
[2016-05-24] MEDS: FUROSEMIDE 20 MG INJ IV SCH (09:00)
[2016-05-24] MEDS: SOD CHLORIDE 0.9% 1,000 ML IV SCH ×2 (09:31→18:30)
[2016-05-24] MEDS: ASPIRIN 81 MG TAB PO SCH (09:35)
[2016-05-24] MEDS: CALCIUM CARBONATE 500 MG CHEW TAB GTB SCH (09:35)
[2016-05-24] MEDS: THIAMINE 100 MG TAB GTB SCH (09:35)
[2016-05-24] MEDS: MULTIVITAMINS/MINERALS TAB PO SCH (09:35)
[2016-05-24] MEDS: CHLORHEXIDINE GLUCONATE 15 ML UD CUP MM SCH (09:40)
[2016-05-24] MEDS: LACTULOSE 30ML CUP GTB SCH (09:40)
[2016-05-24] MEDS: ASCORBIC ACID 500 MG TAB GTB SCH (09:40)
[2016-05-24] MEDS: FERROUS SULFATE 60 MG/ML 5ML CUP GTB SCH (09:40)
[2016-05-24] MEDS: FAMOTIDINE 20 MG TAB GTB SCH (09:40)
[2016-05-24] MEDS: CHLORDIAZEPOXIDE 5 MG CAP PO SCH ×2 (09:44→13:43)
[2016-05-24] MEDS: QUETIAPINE 25 MG TAB GTB SCH ×2 (09:44→18:08)
--- NOTE | 2016-05-24 11:33 | CONS ---
Date/Time of Note Date/Time of Note DATE: 05/24/16 TIME: 11:32 Consult Date/Type/Reason Admit Date/Time Apr 11, 2016 at 22:13 Initial Consult Date 04/21/16 Type of Consultation: pulmonary Ordering Provider: ANNETTA AGUILAR MD Subjective Mild agitation otherwise stable, awake alert Objective Vital Signs Date Time Temp Pulse Resp B/P Pulse Ox O2 Delivery O2 Flow Rate FiO2 05/24/16 11:00 60 05/24/16 09:27 91 05/24/16 09:20 26 97 05/24/16 07:58 136/54 05/24/16 07:40 98.7 05/23/16 18:08 Mechanical Ventilator Intake and Output 05/23/16 05/23/16 05/24/16 15:00 23:00 07:00 Intake Total 600 ml 1450 ml Output Total 200 ml 350 ml Balance 400 ml 1100 ml Exam PHYSICAL EXAMINATION GENERAL: Elderly gentleman, on mechanical ventilation via tracheostomy VITAL SIGNS: see below. HEENT: Pupils equal, round, and reactive to light. Tracheostomy site clean and intact. CARDIAC: S1, S2, no added sounds or murmurs CHEST: Diminished air entry bilaterally. ABDOMEN: Mildly distended. No bowel sounds. EXTREMITIES: No cyanosis, clubbing or edema. NEUROLOGIC: No focal deficits. Results/Medications Result Diagram: 05/24/16 0642 05/24/16 0642 Results 24 hrs Laboratory Tests Test 05/24/16 06:42 White Blood Count 5.5 Red Blood Count 3.12 L Hemoglobin 8.4 L Hematocrit 28.1 L Mean Corpuscular Volume 90.1 Mean Corpuscular Hemoglobin 26.9 L Mean Corpuscular Hemoglobin Concent 29.9 L Red Cell Distribution Width 16.9 H Platelet Count 151 Mean Platelet Volume 11.5 H Neutrophils % 83.5 H Lymphocytes % 8.7 L Monocytes % 7.0 Eosinophils % 0.4 Basophils % 0.2 Nucleated Red Blood Cells % 0.0 Neutrophils # 4.6 Lymphocytes # 0.5 L Monocytes # 0.4 Eosinophils # 0.0 Basophils # 0.0 Nucleated Red Blood Cells # 0.0 Sodium Level 137 Potassium Level 3.6 Chloride Level 103 Carbon Dioxide Level 30 Anion Gap 8 Blood Urea Nitrogen 30 H Creatinine 0.67 Glucose Level 115 # Calcium Level 8.2 L Medications Current Medications Ondansetron HCl (Zofran Inj) 4 mg Q6H PRN IV NAUSEA AND/OR VOMITING Last administered on 05/17/16 11:19; Admin Dose 4 MG; Start 04/11/16 at 22:30 Acetaminophen (Tylenol Tab) 650 mg Q6H PRN PO PAIN LEVEL 1-3 OR FEVER; Start at 22:30 Morphine Sulfate (morphine) 2 mg Q4H PRN IV PAIN LEVEL 7-10 Last administered on 05/20/16 00:54; Admin Dose 2 MG; Start 04/11/16 at 22:30 Ascorbic Acid (Vitamin C) 500 mg DAILY GTB Last administered on 05/24/16 09:40 ; Admin Dose 500 MG; Start 04/12/16 at 09:00 Bisacodyl (Dulcolax) 10 mg DAILY PRN PO CONSTIPATION; Start 04/11/16 at 22:30 Chlorhexidine Gluconate (Peridex) 15 ml BID MM Last administered on 05/24/16 09 :40; Admin Dose 15 ML; Start 04/12/16 at 09:00 Ferrous Sulfate (Feosol Liquid Cup) 300 mg BID GTB Last administered on 09:40; Admin Dose 300 MG; Start 04/12/16 at 09:00 Acetaminophen/ Hydrocodone Bitart ([place] (5/325)) 1 tab Q4 PRN GTB PAIN LEVEL 6 -10; Start 04/11/16 at 22:30 Lactulose (Enulose) 20 gm DAILY GTB Last administered on 05/24/16 09:40; Admin Dose 20 GM; Start 04/12/16 at 09:00 Quetiapine Fumarate (Seroquel) 25 mg BID@ GTB Last administered on 09:44; Admin Dose 25 MG; Start 04/12/16 at 09:00 Quetiapine Fumarate (Seroquel) 200 mg HS GTB Last administered on 05/22/16 20: 29; Admin Dose 200 MG; Start 04/12/16 at 21:00 Senna (Senokot) 1 tab QHS GTB Last administered on 05/23/16 23:14; Admin Dose 1 TAB; Start 04/12/16 at 21:00 Sodium Biphosphate/ Sodium Phosphate (Fleet Enema Pediatric) 66.6 ml DAILY PRN [place] CONSTIPATION; Start 04/11/16 at 22:30 Thiamine HCl (Vitamin B1) 100 mg DAILY GTB Last administered on 05/24/16 09:35 ; Admin Dose 100 MG; Start 04/12/16 at 09:00 Calcium Carbonate (Tums) 500 mg DAILY GTB Last administered on 05/24/16 09:35; Admin Dose 500 MG; Start 04/12/16 at 09:00 Multivitamins/ Minerals (Theragran-M) 1 tab DAILY PO Last administered on 09:35; Admin Dose 1 TAB; Start 04/12/16 at 09:00 Hydralazine HCl (Apresoline) 10 mg Q6H PRN IV SBP >160 Last administered on 16:38; Admin Dose 10 MG; Start 04/12/16 at 12:30 Famotidine (Pepcid) 20 mg Q12 GTB Last administered on 05/24/16 09:40; Admin Dose 20 MG; Start 04/19/16 at 21:00 Clonidine (Catapres) 0.1 mg Q6H PRN PO ELEVATED BLOOD PRESSURE; Start 04/24/16 at 23:30 Metoprolol Tartrate (Lopressor) 5 mg Q4H PRN IV PRN HR>110 Hold SBP<100; Start 04/28/16 at 13:30 Metoprolol Tartrate (Lopressor) 25 mg BID PO Last administered on 04/29/16 21: 29; Admin Dose 25 MG; Start 04/29/16 at 21:00; Status Future Hold Lorazepam (Ativan) 1 mg Q6 GTB Last administered on 05/24/16 00:29; Admin Dose 1 MG; Start 05/02/16 at 00:00 Aspirin (Aspirin) 81 mg DAILY PO Last administered on 05/24/16 09:35; Admin Dose 81 MG; Start 05/02/16 at 14:30 Chlordiazepoxide (Librium) 10 mg TID PO Last administered on 05/24/16 09:44; Admin Dose 10 MG; Start 05/04/16 at 09:00 Acetaminophen (Tylenol Liquid) 650 mg Q6H PRN GTB FEVER >101; Start 05/06/16 at 11:30 Furosemide (Lasix) 20 mg BID IV Last administered on 05/23/16 09:31; Admin Dose 20 MG; Start 05/06/16 at 21:00 Benazepril HCl (Lotensin) 10 mg DAILY PO Last administered on 05/23/16 09:31; Admin Dose 10 MG; Start 05/13/16 at 09:00 Hydralazine HCl (Apresoline) 10 mg Q6H PRN IV SBP>170; Start 05/13/16 at 13:00 Lorazepam (Ativan) 2 mg Q4 PRN IV AGITATION Last administered on 05/21/16 07: 42; Admin Dose 2 MG; Start 05/16/16 at 16:00 Clonidine HCl 1 patch 1 patch Q7D TRANSDERM Last administered on 05/21/16 15: 11; Admin Dose 1 PATCH; Start 05/21/16 at 14:00 Sodium Chloride (NS) 1,000 ml @ 100 mls/hr Q10H IV Last administered on 09:31; Admin Dose 100 MLS/HR; Start 05/23/16 at 22:30 Assessment/Plan Chief Complaint/Hosp Course Assessment 1. Vent dependent respiratory failure 2. Dysphagia with G-tube 3. History of psychiatric disorder 4. Marked cachexia 5. Resolved thrombocytopenia 6. History of non-ST elevation [place] Plan 1. Continue mechanical ventilation. 2. Pending replacement of PEG tube 3. Continue DVT GI prophylaxis 4. Continue cardiac recommendations 5. Monitor H&H Disposition Discharge planning per primary team Problems: MARISOL EDDY MD, [facility] May 24, 2016 11:33
--- NOTE | 2016-05-24 12:03 | CONS ---
Date/Time of Note Date/Time of Note DATE: 05/24/16 TIME: 12:01 Assessment/Plan Assessment/Plan Chief Complaint/Hosp Course 65 up male with acute hypoxic respiratory failure being admitted for sepsis secondary to ESBL bacteremia. Pt had a worsening normocytic anemia that was likely secondary to his underlying sepsis and antibiotic use. Pt is now off antibiotic and Hg has remained stable. PT had a bleeding trach site and found with and elevated PTT to 85. Pt was given SQ Vitamin K. He is no longer bleeding and PTT has decreased to 50's. # Anemia -HG recheck was > 9. no evidence of bleed -s/p 5 days of V iron. now on po iron # Thrombocytopenia -likely secondary to sepsis and antibiotics. now resolved # Bleeding trach -resolved -not coagulopathic. PTT still elevated but patient is positive for a lupus anticoagulant #Pneumonia -currently off antibiotics #Nutrition -pt to have PEG replaced today Approximately 40 min were spent at patient's bedside and in coordination of his care Problems: Consultation Date/Type/Reason Admit Date/Time Apr 11, 2016 at 22:13 Initial Consult Date 04/21/16 Type of Consultation: Hematology Reason for Consultation anemia Referring Provider: ANNETTA AGUILAR MD 24 HR Interval Summary Free Text/Dictation G tube in place. no bleeding around G tube Exam/Review of Systems Vital Signs Vitals Vital Signs Date Time Temp Pulse Resp B/P Pulse Ox O2 Delivery O2 Flow Rate FiO2 05/24/16 11:40 97.6 85 20 125/74 98 05/24/16 11:30 30 05/23/16 18:08 Mechanical Ventilator Intake and Output 05/23/16 05/23/16 05/24/16 15:00 23:00 07:00 Intake Total 600 ml 1450 ml Output Total 200 ml 350 ml Balance 400 ml 1100 ml Exam Constitutional: alert, frail Head: normocephalic Eyes: nl conjunctiva ENMT: nl external ears & nose, nl lips & teeth Neck: other (trach in place) Respiratory: clear to auscultation Cardiovascular: regular rate and rhythm Gastrointestinal: other ( g tube in place with abdominal binder) Musculoskeletal: nl extremities to inspection Results Result Diagram: 05/24/16 0642 05/24/16 0642 Results 24 hrs Laboratory Tests Test 05/24/16 06:42 White Blood Count 5.5 Red Blood Count 3.12 L Hemoglobin 8.4 L Hematocrit 28.1 L Mean Corpuscular Volume 90.1 Mean Corpuscular Hemoglobin 26.9 L Mean Corpuscular Hemoglobin Concent 29.9 L Red Cell Distribution Width 16.9 H Platelet Count 151 Mean Platelet Volume 11.5 H Neutrophils % 83.5 H Lymphocytes % 8.7 L Monocytes % 7.0 Eosinophils % 0.4 Basophils % 0.2 Nucleated Red Blood Cells % 0.0 Neutrophils # 4.6 Lymphocytes # 0.5 L Monocytes # 0.4 Eosinophils # 0.0 Basophils # 0.0 Nucleated Red Blood Cells # 0.0 Sodium Level 137 Potassium Level 3.6 Chloride Level 103 Carbon Dioxide Level 30 Anion Gap 8 Blood Urea Nitrogen 30 H Creatinine 0.67 Glucose Level 115 # Calcium Level 8.2 L Medications Medications Current Medications Ondansetron HCl (Zofran Inj) 4 mg Q6H PRN IV NAUSEA AND/OR VOMITING Last administered on 05/17/16 11:19; Admin Dose 4 MG; Start 04/11/16 at 22:30 Acetaminophen (Tylenol Tab) 650 mg Q6H PRN PO PAIN LEVEL 1-3 OR FEVER; Start at 22:30 Morphine Sulfate (morphine) 2 mg Q4H PRN IV PAIN LEVEL 7-10 Last administered on 05/20/16 00:54; Admin Dose 2 MG; Start 04/11/16 at 22:30 Ascorbic Acid (Vitamin C) 500 mg DAILY GTB Last administered on 05/24/16 09:40 ; Admin Dose 500 MG; Start 04/12/16 at 09:00 Bisacodyl (Dulcolax) 10 mg DAILY PRN PO CONSTIPATION; Start 04/11/16 at 22:30 Chlorhexidine Gluconate (Peridex) 15 ml BID MM Last administered on 05/24/16 09 :40; Admin Dose 15 ML; Start 04/12/16 at 09:00 Ferrous Sulfate (Feosol Liquid Cup) 300 mg BID GTB Last administered on 09:40; Admin Dose 300 MG; Start 04/12/16 at 09:00 Acetaminophen/ Hydrocodone Bitart ([place] (5/325)) 1 tab Q4 PRN GTB PAIN LEVEL 6 -10; Start 04/11/16 at 22:30 Lactulose (Enulose) 20 gm DAILY GTB Last administered on 05/24/16 09:40; Admin Dose 20 GM; Start 04/12/16 at 09:00 Quetiapine Fumarate (Seroquel) 25 mg BID@ GTB Last administered on 09:44; Admin Dose 25 MG; Start 04/12/16 at 09:00 Quetiapine Fumarate (Seroquel) 200 mg HS GTB Last administered on 05/22/16 20: 29; Admin Dose 200 MG; Start 04/12/16 at 21:00 Senna (Senokot) 1 tab QHS GTB Last administered on 05/23/16 23:14; Admin Dose 1 TAB; Start 04/12/16 at 21:00 Sodium Biphosphate/ Sodium Phosphate (Fleet Enema Pediatric) 66.[address] CONSTIPATION; Start 04/11/16 at 22:30 Thiamine HCl (Vitamin B1) 100 mg DAILY GTB Last administered on 05/24/16 09:35 ; Admin Dose 100 MG; Start 04/12/16 at 09:00 Calcium Carbonate (Tums) 500 mg DAILY GTB Last administered on 05/24/16 09:35; Admin Dose 500 MG; Start 04/12/16 at 09:00 Multivitamins/ Minerals (Theragran-M) 1 tab DAILY PO Last administered on 09:35; Admin Dose 1 TAB; Start 04/12/16 at 09:00 Hydralazine HCl (Apresoline) 10 mg Q6H PRN IV SBP >160 Last administered on 16:38; Admin Dose 10 MG; Start 04/12/16 at 12:30 Famotidine (Pepcid) 20 mg Q12 GTB Last administered on 05/24/16 09:40; Admin Dose 20 MG; Start 04/19/16 at 21:00 Clonidine (Catapres) 0.1 mg Q6H PRN PO ELEVATED BLOOD PRESSURE; Start 04/24/16 at 23:30 Metoprolol Tartrate (Lopressor) 5 mg Q4H PRN IV PRN HR>110 Hold SBP<100; Start 04/28/16 at 13:30 Metoprolol Tartrate (Lopressor) 25 mg BID PO Last administered on 04/29/16 21: 29; Admin Dose 25 MG; Start 04/29/16 at 21:00; Status Future Hold Lorazepam (Ativan) 1 mg Q6 GTB Last administered on 05/24/16 00:29; Admin Dose 1 MG; Start 05/02/16 at 00:00 Aspirin (Aspirin) 81 mg DAILY PO Last administered on 05/24/16 09:35; Admin Dose 81 MG; Start 05/02/16 at 14:30 Chlordiazepoxide (Librium) 10 mg TID PO Last administered on 05/24/16 09:44; Admin Dose 10 MG; Start 05/04/16 at 09:00 Acetaminophen (Tylenol Liquid) 650 mg Q6H PRN GTB FEVER >101; Start 05/06/16 at 11:30 Furosemide (Lasix) 20 mg BID IV Last administered on 05/23/16 09:31; Admin Dose 20 MG; Start 05/06/16 at 21:00 Benazepril HCl (Lotensin) 10 mg DAILY PO Last administered on 05/23/16 09:31; Admin Dose 10 MG; Start 05/13/16 at 09:00 Hydralazine HCl (Apresoline) 10 mg Q6H PRN IV SBP>170; Start 05/13/16 at 13:00 Lorazepam (Ativan) 2 mg Q4 PRN IV AGITATION Last administered on 05/21/16 07: 42; Admin Dose 2 MG; Start 05/16/16 at 16:00 Clonidine HCl 1 patch 1 patch Q7D TRANSDERM Last administered on 05/21/16 15: 11; Admin Dose 1 PATCH; Start 05/21/16 at 14:00 Sodium Chloride (NS) 1,000 ml @ 100 mls/hr Q10H IV Last administered on 09:31; Admin Dose 100 MLS/HR; Start 05/23/16 at 22:30 JESI MONTEMAYOR M.D. May 24, 2016 12:03
--- NOTE | 2016-05-24 13:30 | CONS ---
Date/Time of Note Date/Time of Note DATE: 05/24/16 TIME: 13:26 Assessment/Plan Assessment/Plan Chief Complaint/Hosp Course IMPRESSION: 1. Wide complex tachycardia, cardiac arrhythmia. Rule out nonsustained ventricular tachycardia.-likely c/w abberant AF-no recurrence 2. Abnormal electrocardiogram, assess for acute coronary syndrome. 3. Congestive heart failure by chest x-ray, diastolic by most recent echo acute on chronic.-improved volume status 4. Hypertension with current borderline Hotn s/p IVP hydralazine 5. Respiratory failure, chronic, status post tracheostomy with desat now transferred to ICU 6. Dysphagia, status post G-tube which patient pulled out/self d/c'd 7. Psychiatric disorder. 8. Urinary tract infection. 9. Hypokalemia-improved 10. Anemia. 11. Leukopenia. 12.Nstemi-no current chest pain/decreased enzymes 14. Bradycardia-improved Recc: -Tele -Continue to hold BB given prior bradycardia -Continue asa medical therapy for nstemi -Continue acei as tolerated and follow BP closely -Continue lasix diuresis as toilerated -[facility] discussed with patient but patient does not have clear understanding and would like to wait -Continue clonidine TTS for now but follow labile BP closely Problems: Consultation Date/Type/Reason Admit Date/Time Apr 11, 2016 at 22:13 Initial Consult Date 04/21/16 Type of Consultation: Cardiology Reason for Consultation NSTEMI Referring Provider: ANNETTA AGUILAR MD Exam/Review of Systems Vital Signs Vitals Vital Signs Date Time Temp Pulse Resp B/P Pulse Ox O2 Delivery O2 Flow Rate FiO2 05/24/16 12:37 97 05/24/16 11:40 97.6 20 125/74 98 05/24/16 11:30 30 05/23/16 18:08 Mechanical Ventilator Intake and Output 05/23/16 05/23/16 05/24/16 15:00 23:00 07:00 Intake Total 600 ml 1450 ml Output Total 200 ml 350 ml Balance 400 ml 1100 ml Exam Review of Systems: CONSTITUTIONAL: No fevers, chills. PULMONARY: trached CARDIOVASCULAR: No chest pain/palpitations GASTROINTESTINAL: No nausea/vomiting. GENITOURINARY: No hematuria/dysuria. MUSCULOSKELETAL: No myagias/arthalgias. PSYCHIATRIC: The patient denies depression. NEUROLOGIC: lethargic Constitutional: alert Psych: confusion, no complaints Head: normocephalic ENMT: mucosa pink and moist Neck: jvd (9 cm water), supple Cardiovascular: regular rate and rhythm Gastrointestinal: non-tender, soft Musculoskeletal: muscle weakness (generalized) Extremities: edema (none), other (contracted) Neurological: lethargic Results Result Diagram: 05/24/16 0642 05/24/16 0642 Results 24 hrs Laboratory Tests Test 05/24/16 06:42 White Blood Count 5.5 Red Blood Count 3.12 L Hemoglobin 8.4 L Hematocrit 28.1 L Mean Corpuscular Volume 90.1 Mean Corpuscular Hemoglobin 26.9 L Mean Corpuscular Hemoglobin Concent 29.9 L Red Cell Distribution Width 16.9 H Platelet Count 151 Mean Platelet Volume 11.5 H Neutrophils % 83.5 H Lymphocytes % 8.7 L Monocytes % 7.0 Eosinophils % 0.4 Basophils % 0.2 Nucleated Red Blood Cells % 0.0 Neutrophils # 4.6 Lymphocytes # 0.5 L Monocytes # 0.4 Eosinophils # 0.0 Basophils # 0.0 Nucleated Red Blood Cells # 0.0 Sodium Level 137 Potassium Level 3.6 Chloride Level 103 Carbon Dioxide Level 30 Anion Gap 8 Blood Urea Nitrogen 30 H Creatinine 0.67 Glucose Level 115 # Calcium Level 8.2 L Medications Medications Current Medications Ondansetron HCl (Zofran Inj) 4 mg Q6H PRN IV NAUSEA AND/OR VOMITING Last administered on 05/17/16 11:19; Admin Dose 4 MG; Start 04/11/16 at 22:30 Acetaminophen (Tylenol Tab) 650 mg Q6H PRN PO PAIN LEVEL 1-3 OR FEVER; Start at 22:30 Morphine Sulfate (morphine) 2 mg Q4H PRN IV PAIN LEVEL 7-10 Last administered on 05/20/16 00:54; Admin Dose 2 MG; Start 04/11/16 at 22:30 Ascorbic Acid (Vitamin C) 500 mg DAILY GTB Last administered on 05/24/16 09:40 ; Admin Dose 500 MG; Start 04/12/16 at 09:00 Bisacodyl (Dulcolax) 10 mg DAILY PRN PO CONSTIPATION; Start 04/11/16 at 22:30 Chlorhexidine Gluconate (Peridex) 15 ml BID MM Last administered on 05/24/16 09 :40; Admin Dose 15 ML; Start 04/12/16 at 09:00 Ferrous Sulfate (Feosol Liquid Cup) 300 mg BID GTB Last administered on 09:40; Admin Dose 300 MG; Start 04/12/16 at 09:00 Acetaminophen/ Hydrocodone Bitart ([place] (5/325)) 1 tab Q4 PRN GTB PAIN LEVEL 6 -10; Start 04/11/16 at 22:30 Lactulose (Enulose) 20 gm DAILY GTB Last administered on 05/24/16 09:40; Admin Dose 20 GM; Start 04/12/16 at 09:00 Quetiapine Fumarate (Seroquel) 25 mg BID@ GTB Last administered on 09:44; Admin Dose 25 MG; Start 04/12/16 at 09:00 Quetiapine Fumarate (Seroquel) 200 mg HS GTB Last administered on 05/22/16 20: 29; Admin Dose 200 MG; Start 04/12/16 at 21:00 Senna (Senokot) 1 tab QHS GTB Last administered on 05/23/16 23:14; Admin Dose 1 TAB; Start 04/12/16 at 21:00 Sodium Biphosphate/ Sodium Phosphate (Fleet Enema Pediatric) 66.6 ml DAILY PRN [place] CONSTIPATION; Start 04/11/16 at 22:30 Thiamine HCl (Vitamin B1) 100 mg DAILY GTB Last administered on 05/24/16 09:35 ; Admin Dose 100 MG; Start 04/12/16 at 09:00 Calcium Carbonate (Tums) 500 mg DAILY GTB Last administered on 05/24/16 09:35; Admin Dose 500 MG; Start 04/12/16 at 09:00 Multivitamins/ Minerals (Theragran-M) 1 tab DAILY PO Last administered on 09:35; Admin Dose 1 TAB; Start 04/12/16 at 09:00 Hydralazine HCl (Apresoline) 10 mg Q6H PRN IV SBP >160 Last administered on 16:38; Admin Dose 10 MG; Start 04/12/16 at 12:30 Famotidine (Pepcid) 20 mg Q12 GTB Last administered on 05/24/16 09:40; Admin Dose 20 MG; Start 04/19/16 at 21:00 Clonidine (Catapres) 0.1 mg Q6H PRN PO ELEVATED BLOOD PRESSURE; Start 04/24/16 at 23:30 Metoprolol Tartrate (Lopressor) 5 mg Q4H PRN IV PRN HR>110 Hold SBP<100; Start 04/28/16 at 13:30 Metoprolol Tartrate (Lopressor) 25 mg BID PO Last administered on 04/29/16 21: 29; Admin Dose 25 MG; Start 04/29/16 at 21:00; Status Future Hold Lorazepam (Ativan) 1 mg Q6 GTB Last administered on 05/24/16 00:29; Admin Dose 1 MG; Start 05/02/16 at 00:00 Aspirin (Aspirin) 81 mg DAILY PO Last administered on 05/24/16 09:35; Admin Dose 81 MG; Start 05/02/16 at 14:30 Chlordiazepoxide (Librium) 10 mg TID PO Last administered on 05/24/16 09:44; Admin Dose 10 MG; Start 05/04/16 at 09:00 Acetaminophen (Tylenol Liquid) 650 mg Q6H PRN GTB FEVER >101; Start 05/06/16 at 11:30 Furosemide (Lasix) 20 mg BID IV Last administered on 05/23/16 09:31; Admin Dose 20 MG; Start 05/06/16 at 21:00 Benazepril HCl (Lotensin) 10 mg DAILY PO Last administered on 05/23/16 09:31; Admin Dose 10 MG; Start 05/13/16 at 09:00 Hydralazine HCl (Apresoline) 10 mg Q6H PRN IV SBP>170; Start 05/13/16 at 13:00 Lorazepam (Ativan) 2 mg Q4 PRN IV AGITATION Last administered on 05/21/16 07: 42; Admin Dose 2 MG; Start 05/16/16 at 16:00 Clonidine HCl 1 patch 1 patch Q7D TRANSDERM Last administered on 05/21/16 15: 11; Admin Dose 1 PATCH; Start 05/21/16 at 14:00 Sodium Chloride (NS) 1,000 ml @ 100 mls/hr Q10H IV Last administered on 09:31; Admin Dose 100 MLS/HR; Start 05/23/16 at 22:30 LILI BRADEN May 24, 2016 13:30
--- NOTE | 2016-05-25 06:12 | DS ---
DATE OF ADMISSION: 04/11/2016 DATE OF DISCHARGE: 05/24/2016 FINAL DIAGNOSES: 1. Bleeding from tracheostomy site, resolved. 2. Pancytopenia, resolved. 3. Coagulopathy, status post vitamin K, resolved. 4. Non-ST elevation myocardial infarction. 5. Atrial fibrillation with rapid ventricular response. 6. Bilateral pleural effusion, status post right-sided thoracentesis. 7. Acute hypoxic respiratory failure, resolved. 8. Possible healthcare-acquired left lower lung pneumonia versus aspiration, status post treatment with antibiotics. 9. Escherichia coli extended-spectrum beta-lactamase urinary tract infection status post treatment. 10. Sepsis with Escherichia coli extended-spectrum beta-lactamase bacteremia secondary to urinary t ract infection, resolved. 11. Dysphagia with G-tube, status post self-removal of G-tube and status post placement. 12. History of chronic respiratory failure. 13. Benign prostatic hypertrophy. 14. Schizoaffective disorder. BRIEF HISTORY: The patient is a 65-year-old gentleman who is bed bound with lower extremity paralys is and contractions, gastrostomy tube, schizoaffective disorder, dementia, hypertension, BPH, and hi story of acute respiratory failure with tracheostomy. The patient was [facility] from [facility] facility for low oxygen saturation. The patient was also noted to be tachypneic and tachycardic on admission to the emergency room. Chest x-ray revealed near complete opacification of the left lung with hyperinflation of the right lung. The patient was admitted for further evaluation and managem ent. HOSPITAL COURSE: The patient was evaluated by Dr. Rojas in infectious disease consultation, and th e patient was given antibiotics for healthcare-acquired pneumonia. The patient was also noted to holden ve E. coli extended-spectrum beta-lactamase bacteremia and urinary tract infection. He also complet ed the treatment with antibiotics. The patient also has schizoaffective disorder and attempted to r emove tracheostomy and had bleeding from the tracheostomy site. The patient was also noted to have coagulopathy. The patient was transferred from ICU and was closely monitored. The patient was also evaluated by Dr. Gaona for normocytic anemia. The patient received blood transfusion and also german min K for coagulopathy. Eventually the patient's condition improved and the patient's bleeding subs ided. The patient was given Seroquel and Ativan for schizoaffective disorder and was on restraints; however, the patient managed to discontinue G-tube which was subsequently reinserted by Dr. Marcus. The patient also had an elevated troponin with non-ST elevation myocardial infarction and was eval uated and followed by Dr. Espitia in cardiology consultation, continued on aspirin and Lovenox on ad mission; however, due to patient's bleeding, that was held. The patient also had atrial fibrillatio n with rapid ventricular response and was continued on metoprolol. The patient was closely monitore d on telemetry floor and remained in sinus rhythm. The patient was evaluated by Dr. Hernadez's group in pulmonology consultation. Continue on ventilatory support and bronchodilators. The patient's c ondition improved. The patient also received IV iron supplements for low iron. The patient's hemog lobin is currently stable with no signs of bleeding. The patient will be discharged to skilled nurs ing facility today. CONDITION ON DISCHARGE: Hemodynamically stable. ACTIVITY: As patient tolerates. DIET: Continue patient n.p.o. The patient failed swallow evaluation with recommendation to continu e with G-tube feeding. DISCHARGE MEDICATIONS: 1. Tylenol p.r.n. 2. Albuterol. 3. Ascorbic acid. 4. Aspirin. 5. Benazepril. 6. Dulcolax. 7. Calcium. 8. Librium. 9. Peridex. 10. Clonidine patch. 11. Clonidine p.r.n. for systolic blood pressure above 170. 12. Pepcid. 13. Ferrous sulfate b.i.d. 14. Lasix 20 mg G-tube b.i.d. 15. [place] or p.r.n. for pain. 16. Atrovent 4 puffs q. 6 hours. 17. Lactulose 20 G-tube daily. 18. Ativan 1 mg G-tube q. 6 hours p.r.n. for agitation. 19. Metoprolol 25 mg p.o. b.i.d. 20. Multivitamins. 21. Seroquel 25 mg G-tube at 9:00 a.m. and 5:00 p.m. 22. Seroquel 200 mg at bedtime. 23. Senna daily at bedtime. 24. Fleet's enema p.r.n. 25. Protein supplement. Interdisciplinary plan of care was established for this patient. Plan of care was discussed with Dr Kisha Aguilar. Dictated By: SHELBY BUNCH REFRACTIVE SURGEON for ANNETTA AGUILAR MD SR/NTS Conf#: [id number] DID#: [id number]
[2016-05-25] MEDS ORDERED: BENAZEPRIL 10 MG TAB PO SCH (09:00)
== END 2016-05-24 20:10 | DRG 870 ==
LOC: E/R 20:52 → TEL 22:13 → PP2 04-14 13:10 → TEL 04-27 21:12 → ICU 05-02 16:40 → TEL 05-06 11:59 → ICU 05-06 12:04 → TEL 05-06 12:10
PROVIDERS: ADMIT Internal Medicine; ATTEND Internal Medicine
PROC: 0B21XFZ Change Tracheostomy Device in Trachea, External Approach (ICD-10-PCS; 2016-04-11)
PROC: 02HV33Z Insertion of Infusion Device into Superior Vena Cava, Percutaneous Approach (ICD-10-PCS; 2016-04-21)
PROC: 30233N1 Transfusion of Nonautologous Red Blood Cells into Peripheral Vein, Percutaneous Approach (ICD-10-PCS; 2016-04-24)
PROC: 0W993ZZ Drainage of Right Pleural Cavity, Percutaneous Approach (ICD-10-PCS; 2016-04-27)
PROC: 5A1955Z Respiratory Ventilation, Greater than 96 Consecutive Hours (ICD-10-PCS; principal; 2016-05-02)
PROC: 30233K1 Transfusion of Nonautologous Frozen Plasma into Peripheral Vein, Percutaneous Approach (ICD-10-PCS; 2016-05-02)
PROC: 30233R1 Transfusion of Nonautologous Platelets into Peripheral Vein, Percutaneous Approach (ICD-10-PCS; 2016-05-02)
PROC: 0DH63UZ Insertion of Feeding Device into Stomach, Percutaneous Approach (ICD-10-PCS; 2016-05-10)
PROC: 0DH63UZ Insertion of Feeding Device into Stomach, Percutaneous Approach (ICD-10-PCS; 2016-05-21)
DX: A41.51 Sepsis due to Escherichia coli [E. coli] (principal); I21.4 Non-ST elevation (NSTEMI) myocardial infarction; J96.21 Acute and chronic respiratory failure with hypoxia; J69.0 Pneumonitis due to inhalation of food and vomit; I50.33 Acute on chronic diastolic (congestive) heart failure; L89.154 Pressure ulcer of sacral region, stage 4; J18.9 Pneumonia, unspecified organism; J90 Pleural effusion, not elsewhere classified; R64 Cachexia; D61.818 Other pancytopenia; N39.0 Urinary tract infection, site not specified; G82.20 Paraplegia, unspecified; Z68.1 Body mass index [BMI] 19.9 or less, adult; E51.2 Wernicke's encephalopathy; E87.2 Acidosis; D68.9 Coagulation defect, unspecified; Z43.1 Encounter for attention to gastrostomy; Z93.0 Tracheostomy status; Z93.1 Gastrostomy status; N40.0 Benign prostatic hyperplasia without lower urinary tract symptoms; F25.9 Schizoaffective disorder, unspecified; I11.0 Hypertensive heart disease with heart failure; T17.990A Other foreign object in respiratory tract, part unspecified in causing asphyxiation, initial encounter; B95.2 Enterococcus as the cause of diseases classified elsewhere; Z16.12 Extended spectrum beta lactamase (ESBL) resistance; F10.21 Alcohol dependence, in remission; Z78.1 Physical restraint status; M24.50 Contracture, unspecified joint; I95.9 Hypotension, unspecified; I48.91 Unspecified atrial fibrillation; D50.9 Iron deficiency anemia, unspecified; R00.1 Bradycardia, unspecified; K74.60 Unspecified cirrhosis of liver; Z43.0 Encounter for attention to tracheostomy; R13.10 Dysphagia, unspecified
CPT/HCPCS: 32555; 36415; 36430; 36569; 36600; 71010; 74230; 75984; 76937; 80048; 80053; 80061; 80202; 81001; 81003; 82270; 82550; 82553; 82607; 82668; 82728; 82803; 82945; 82962; 83010; 83540; 83605; 83615; 83735; 83880; 84134; 84155; 84157; 84165; 84443; 84484; 85014; 85018; 85025; 85045; 85049; 85240; 85362; 85378; 85384; 85610; 85613; 85651; 85670; 85730; 86146; 86147; 86850; 86900; 86901; 86920; 87040; 87070; 87081; 87086; 87102; 87116; 88104; 88305; 89050; 92526; 92610; 92611; 93005; 94002; 94003; 94640; 94664; 94667; 94668; 94799; 96372; 96374; 96375; 96376; J1940; A4310; C1769; J0360; J0690; J0692; J0743; J1335; J1650; J2060; J2250; J2270; J2405; J2916; J3010; J3370; J3475; J3480; J7030; J7040; J7042; J7050; P9016; P9035; P9059

== ENCOUNTER 2016-06-16 00:56 | Inpatient (IN) | payer MEDICARE, BC ==
[~2016-06-16] VITALS: Ht 167.6 cm; Wt 49.8 kg
[~2016-06-16 00:56] MED LIST changes: +ENOX30DI2 SC; -LOV30I SC
[2016-06-16 01:30] VITALS: Ht 167.6 cm; Wt 49.8 kg
[2016-06-16 04:09] LABS: ADD SCAN DIFF NO
--- NOTE | 2016-06-16 04:15 | RADRPT ---
PROCEDURE: XR Chest. CLINICAL INDICATION: Chest pain TECHNIQUE: Portable single view of the chest COMPARISON: 05/23/2016 FINDINGS: Tracheostomy tube appears in good position. Left perihilar infiltrate has improved. Basilar infilt rates and right pleural effusion appears similar to prior. No overt congestive heart failure. Aort ic calcification and ectasia again seen. Left PICC line is no longer seen. IMPRESSION: Decreased left perihilar infiltrate. Stable basilar infiltrates and right pleural effusion. RPTAT: HLBE Rachelle Kuhn Physician Date Time Electronically viewed and signed by Rachelle Kuhn Physician on 06/16/2016 04:15 LE/
[2016-06-16 04:20] LABS: BASOPHILS % 0.7 % (0.0-2.0); EOSINOPHILS # 0.1 10^3/ul (0.0-0.5); EOSINOPHILS % 1.7 % (0.0-7.0); HEMATOCRIT 28.8 % (42.0-52.0); HEMOGLOBIN 8.9 g/dl (14.0-18.0); LYMPHOCYTES # 0.9 10^3/ul (0.8-2.9); LYMPHOCYTES % 21.2 % (15.0-51.0); MEAN CORPUSCULAR HEMOGLOBIN 28.3 pg (29.0-33.0); MEAN CORPUSCULAR HGB CONC 30.9 g/dl (32.0-37.0); MEAN CORPUSCULAR VOLUME 91.4 fl (82.0-101.0); MEAN PLATELET VOLUME 10.8 fl (7.4-10.4); MONOCYTE # 0.4 10^3/ul (0.3-0.9); MONOCYTES % 8.9 % (0.0-11.0); NEUTROPHIL # 2.8 10^3/ul (1.6-7.5); NEUTROPHILS % 67.3 % (39.0-77.0); PLATELET COUNT 223 10^3/UL (140-415); RED BLOOD COUNT 3.15 10^6/ul (4.70-6.10); RED CELL DISTRIBUTION WIDTH 17.3 % (11.5-14.5); WHITE BLOOD COUNT 4.2 10^3/ul (4.8-10.8)
[2016-06-16 04:22] LABS: ALBUMIN 2.7 g/dl (3.3-4.9); CHLORIDE 96 mmol/L (97-110); POTASSIUM 4.2 mmol/L (3.5-5.1); SODIUM 135 mmol/L (135-144)
[2016-06-16 04:23] LABS: INR 1.19; PARTIAL THROMBOPLASTIN TIME 42.1 Sec (25.0-35.0); PROTIME 15.2 Sec (12.2-14.2); PT RATIO 1.2
[2016-06-16 04:24] LABS: ANION GAP 10 (8-16); BILIRUBIN,INDIRECT 0.2 mg/dl (0-1.1); BILIRUBIN,TOTAL 0.2 mg/dl (0.2-1.3); CARBON DIOXIDE 33 mmol/L (21-31); CREATININE 0.47 mg/dl (0.61-1.24)
[2016-06-16 04:25] LABS: ALANINE AMINOTRANSFERASE 26 IU/L (13-69); ALBUMIN/GLOBULIN RATIO 0.64; ALKALINE PHOSPHATASE 113 IU/L (42-121); ASPARTATE AMINO TRANSFERASE 28 IU/L (15-46); BLOOD UREA NITROGEN 23 mg/dl (7-20); CALCIUM 8.6 mg/dl (8.4-10.2); GLUCOSE 73 mg/dl (70-220); TOTAL PROTEIN 6.9 g/dl (6.1-8.1)
--- NOTE | 2016-06-16 05:45 | ERA ---
ER Documentation Chief Complaint Date/Time DATE: 06/16/16 TIME: 05:43 Chief Complaint from stevie ivey, pulled out GTube, hickey holding stoma open. vented. HPI This is a 5-year-old while [facility] his G-tube. Hickey holding stoma open. Patient has a chronic trach to vent patient history is limited to EMS run sheet long term transfer sheet ROS All systems reviewed and are negative except as per history of present illness. Medications Home Meds Reported Medications Thiamine* (Thiamine*) 100 Mg Tablet, 100 MG GTB DAILY, TAB 03/30/16 Sennosides* (Senna Lax*) 8.6 Mg Tablet, 1 TAB GTB QHS for CONSTIPATION, TAB HOLD FOR LBM>2 03/30/16 Quetiapine Fumarate* (Quetiapine Fumarate*) 200 Mg Tablet, 200 MG GTB HS, TAB 03/30/16 Quetiapine Fumarate* (Quetiapine Fumarate*) 25 Mg Tablet, 25 MG GTB BID, TAB 03/30/16 Protein Supplement (Promod) 946 Ml Liquid, 30 ML GTB BID 03/30/16 Amino Acids/Protein Hydrolys (Pro-Stat Profile Liquid) 30 Ml Liquid, 30 ML GTB BID 03/30/16 Hydrocodone/Acetaminophen ([place] 5-325 Tablet) 1 Each Tablet, 1 EACH GTB Q4 Y for PAIN LEVEL 6-10, TAB EVERY DAY SHIFT FOR PRIOR TO WOUND CARE 03/30/16 Multivitamin with Minerals (Multivitamins with Minerals) 1 Each Tablet, 1 EACH GTB DAILY, TAB 03/30/16 Lorazepam* (Lorazepam*) 1 Mg Tablet, 1 MG GTB Q6, #60 TAB 03/30/16 Lactulose* (Lactulose*) 20 Gm/30 Ml Solution, 30 ML GTB DAILY for CONSTIPATION, ML HOLD FOR LBM>2 03/30/16 Sod Phosphate/Sod Biphosphate* (Fleet* Enema Pediatric) 66.6 Ml Soln, 66.6 ML [place] DAILY Y for CONSTIPATION, ENEMA 03/30/16 Ferrous Sulfate (Ferrous Sulfate) 300 Mg/5 Ml Liquid, 300 MG GTB BID 03/30/16 Enoxaparin Sodium* (Enoxaparin Sodium*) 30 Mg/0.3 Ml Syringe, 30 MG SC DAILY, SYR 03/30/16 Ipratropium-Albuterol (Ipratropium-Albuterol) 0.5-3 Mg/3 Ml Ampul.neb, 3 ML INHALATION Q2H, #30 VIAL USED Q2H OR Q4H FOR ASTHMA 03/30/16 Chlorhexidine Gluconate (Peridex) 473 Ml Mouthwash, 15 ML MM BID, BOTTLE 03/30/16 Calcium Carbonate (Calcium Carbonate) 500 Mg Tab.chew, 500 MG GTB DAILY, TAB.CHEW 03/30/16 Bisacodyl* (Bisacodyl*) 5 Mg Tablet.dr, 10 MG GTB DAILY Y for CONSTIPATION, TAB 03/30/16 Ascorbic Acid (Vitamin C) 500 Mg Tab, 500 MG GTB DAILY, TAB 03/30/16 Acetaminophen* (Acetaminophen*) 650 Mg Tablet, 650 MG GTB Q6H Y for FEVER >101, #30 TAB 03/30/16 Acetaminophen* (Acetaminophen*) 500 MG Extra Strength Tablet, 1000 MG GTB Q8H Y for PAIN LEVEL 1-5, TAB 03/30/16 Allergies Allergies: Coded Allergies: chlorpromazine (Verified Allergy, Mild, 05/05/16) haloperidol (Verified Allergy, Mild, 05/05/16) aripiprazole (Verified Allergy, Unknown, 05/05/16) valproic acid (Verified Allergy, Unknown, 05/05/16) info taken from [facility] record PMhx/Soc History of Surgery: Yes (trach, peg placement) Hx Neurological Disorder: Yes (dementia) Hx Respiratory Disorders: Yes (copd, resp failure, trach - vent dependant) Hx Cardiac Disorders: Yes (HTN, NSTEMI, AFIB) Hx Psychiatric Problems: Yes (anxiety, schizoaffective) Hx Miscellaneous Medical Probl: Yes (anemia, ESBL UTI, BPH, multiple decubs) Hx Alcohol Use: No Hx Substance Use: No Hx Tobacco Use: No Smoking Status: Former smoker Physical Exam Vitals Vital Signs Date Time Temp Pulse Resp B/P Pulse Ox O2 Delivery O2 Flow Rate FiO2 06/16/16 05:17 60 19 97 40 06/16/16 04:54 61 16 131/86 100 Mechanical Ventilator Trach Collar 06/16/16 03:57 57 14 135/81 98 Trach Collar 06/16/16 03:49 80 17 100 40 06/16/16 01:30 96.9 50 16 155/103 98 06/16/16 01:28 51 21 96 40 Physical Exam Const: [] Head: Atraumatic Eyes: Normal Conjunctiva ENT: Tracheostomy site is clean dry and intact Neck: Full range of motion..~ No meningismus. Resp: Clear to auscultation bilaterally Cardio: Regular rate and rhythm, no murmurs Abd: PEG tube site shows erythema induration surrounding Skin: No petechiae or rashes Back: No midline or flank tenderness Ext: No cyanosis, or edema Neur: Awake and alert Psych: Normal Mood and Affect Result Diagram: 06/16/16 0350 06/16/16 0350 Results 24 hrs Laboratory Tests Test 06/16/16 03:50 White Blood Count 4.210^3/ul Red Blood Count 3.1510^6/ul Hemoglobin 8.9g/dl Hematocrit 28.8% Mean Corpuscular Volume 91.4fl Mean Corpuscular Hemoglobin 28.3pg Mean Corpuscular Hemoglobin Concent 30.9g/dl Red Cell Distribution Width 17.3% Platelet Count 83792^3/UL Mean Platelet Volume 10.8fl Neutrophils % 67.3% Lymphocytes % 21.2% Monocytes % 8.9% Eosinophils % 1.7% Basophils % 0.7% Nucleated Red Blood Cells % 0.0/100WBC Neutrophils # 2.810^3/ul Lymphocytes # 0.910^3/ul Monocytes # 0.410^3/ul Eosinophils # 0.110^3/ul Basophils # 0.010^3/ul Nucleated Red Blood Cells # 0.010^3/ul Prothrombin Time 15.2Sec Prothrombin Time Ratio 1.2 INR International Normalized Ratio 1.19 Activated Partial Thromboplast Time 42.1Sec Sodium Level 135mmol/L Potassium Level 4.2mmol/L Chloride Level 96mmol/L Carbon Dioxide Level 33mmol/L Anion Gap 10 Blood Urea Nitrogen 23mg/dl Creatinine 0.47mg/dl Glucose Level 73mg/dl Calcium Level 8.6mg/dl Total Bilirubin 0.2mg/dl Direct Bilirubin 0.00mg/dl Indirect Bilirubin 0.2mg/dl Aspartate Amino Transf (AST/SGOT) 28IU/L Alanine Aminotransferase (ALT/SGPT) 26IU/L Alkaline Phosphatase 113IU/L Total Protein 6.9g/dl Albumin 2.7g/dl Globulin 4.20g/dl Albumin/Globulin Ratio 0.64 Lipase < 10U/L Procedures/MDM EKG: Rate/Rhythm: Normal Sinus Rhythm QRS, ST, T-waves: No changes consistent w/ acute ischemia Impression: No evidence of ischemia or arrhythmia Chest X-ray 1V Interpreted by me: Soft Tissue: No acute abnormalities Bones: No acute abnormalities Mediastinum/Cardiac Silhouette/Lungs: Left upper lobe pneumonia Medical decision makin-year-old male with a PEG site cellulitis which will need to be treated. Patient's ammonia is from previous admission and is resolving per radiologist. Primary care physician made aware of admission. Departure Diagnosis: Primary Impression: Encounter for gastrojejunal tube placement Additional Impression: G-tube site cellulitis Condition: Serious STEFFANIE WHALEN Jun 16, 2016 05:45
[2016-06-16] MEDS ORDERED: ASPI-664 GTB (06:41)
[2016-06-16] MEDS ORDERED: BENA5TAB2 GTB (06:43)
[2016-06-16] MEDS ORDERED: CLON1PAT2 TD (06:44)
[2016-06-16] MEDS ORDERED: CLON-379 GTB (06:44)
[2016-06-16] MEDS ORDERED: FAMO20TA18 GTB (06:45)
[2016-06-16] MEDS ORDERED: LACTINEX GTB (06:46)
[2016-06-16] MEDS ORDERED: MERO500V2 IV (06:48)
[2016-06-16] MEDS ORDERED: METO-448 GTB (06:50)
[2016-06-16] MEDS ORDERED: LORA0.5T GTB (06:51)
[2016-06-16] MEDS ORDERED: ACETAMINOPHEN 325 MG TAB PO PRN (12:30)
[2016-06-16] MEDS ORDERED: NACL 0.9% 3 ML SYG IV SCH (12:30)
[2016-06-16] MEDS ORDERED: ONDANSETRON 4 MG INJ IV PRN (12:30)
--- NOTE | 2016-06-16 12:36 | CONS ---
Date/Time of Note Date/Time of Note DATE: 06/16/16 TIME: 12:32 Assessment/Plan Assessment/Plan Additional Assessment/Plan Chest x-ray was reviewed from today which is essentially clear. Current ventilator settings; AC of 12, tidal volume 450, PEEP of 5, 30% FiO2. Assessment recommendations; next 1. Patient admitted for G-tube malfunction. GI consultation is pending. 2. Multiple other comorbidities including chronic respiratory failure, alcoholic encephalopathy, history of severe recent pneumonia without any evidence of recurrence. Continue current supportive care. Consultation Date/Type/Reason Admit Date/Time Date of Consultation: Jun 16, 2016 Type of Consultation: Pulmonary/critical care Reason for Consultation Pulmonary consultations requested for chronic respiratory failure/ventilator management. Patient admitted for G-tube malfunction. Apparently pulled it out a residential facility. History of presenting illness; patient is a 65-year-old white male who was discharged to residential after a prolonged stay at [facility] for pneumonia and sepsis at this time patient with respiratory failure requiring him to be on a ventilator chronically. The patient apparently pulled his G-tube out to residential facility requiring him to be transferred to ER over here. Because of underlying dementia as well as history of alcoholic encephalopathy patient is very poor historian. History was obtained from medical records. Past medical history; next 1. Patient with a history of chronic respiratory failure. 2. Tracheostomy. 3. G-tube placement with episodes of multiple removal by the patient himself. 4. Paraplegia. 5. History of severe alcoholic encephalopathy. 6. History of severe pneumonia recently. 7. Systolic dysfunction. Medications; were reviewed. Allergies; are to Haldol, valproic acid. Family history; not available. Patient has apparently no family. Occupational history; not available. Review of systems; unable to be obtained. General exam; elderly male, awake currently in no distress. Able to verbalize somewhat. Social History Smoking Status: Former smoker Exam/Review of Systems Vital Signs Vitals Vital Signs Date Time Temp Pulse Resp B/P Pulse Ox O2 Delivery O2 Flow Rate FiO2 06/16/16 10:30 54 20 127/78 100 Mechanical Ventilator Trach Collar 06/16/16 07:15 40 06/16/16 01:30 96.9 Exam HEENT exam; supple neck, no JVD. No lymphadenopathy. Midline trachea. No thyromegaly. Tracheostomy in place. Pupils are midsize and reactive to light. Patient upper jaw is edentulous. Chest exam is; clear to ulceration. S1-S2 audible, no murmurs. Regular rhythm. Abdomen exam is; soft, G-tube is still in place. Bowel sounds are audible. No organomegaly. Nontender abdomen nondistended. Extremity exam; no peripheral edema. 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 Has stable paraplegia. Results Result Diagram: 06/16/16 0350 06/16/16 0350 Results 24 hrs Laboratory Tests Test 06/16/16 03:50 White Blood Count 4.2 #L Red Blood Count 3.15 L Hemoglobin 8.9 L Hematocrit 28.8 L Mean Corpuscular Volume 91.4 Mean Corpuscular Hemoglobin 28.3 L Mean Corpuscular Hemoglobin Concent 30.9 L Red Cell Distribution Width 17.3 H Platelet Count 223 # Mean Platelet Volume 10.8 H Neutrophils % 67.3 Lymphocytes % 21.2 Monocytes % 8.9 Eosinophils % 1.7 Basophils % 0.7 Nucleated Red Blood Cells % 0.0 Neutrophils # 2.8 Lymphocytes # 0.9 Monocytes # 0.4 Eosinophils # 0.1 Basophils # 0.0 Nucleated Red Blood Cells # 0.0 Prothrombin Time 15.2 H Prothrombin Time Ratio 1.2 INR International Normalized Ratio 1.19 Activated Partial Thromboplast Time 42.1 H Sodium Level 135 Potassium Level 4.2 Chloride Level 96 L Carbon Dioxide Level 33 H Anion Gap 10 Blood Urea Nitrogen 23 H Creatinine 0.47 L Glucose Level 73 Calcium Level 8.6 Total Bilirubin 0.2 Direct Bilirubin 0.00 Indirect Bilirubin 0.2 Aspartate Amino Transf (AST/SGOT) 28 Alanine Aminotransferase (ALT/SGPT) 26 Alkaline Phosphatase 113 Total Protein 6.9 Albumin 2.7 L Globulin 4.20 H Albumin/Globulin Ratio 0.64 Lipase < 10 L Medications Medications Current Medications Potassium Chloride/Dextrose/ Sod Cl (D5-1/2ns + KCl 20 Meq) 1,000 ml @ 70 mls/ hr [id number] IV ; Start 06/16/16 at 12:04 Lorazepam (Ativan) 0.5 mg Q6H PRN IV ANXIETY; Start 06/16/16 at 12:30 Ondansetron HCl (Zofran Inj) 4 mg Q6H PRN IV NAUSEA AND/OR VOMITING; Start at 12:30 Acetaminophen (Tylenol Tab) 650 mg Q6H PRN PO PAIN LEVEL 1-3 OR FEVER; Start at 12:30 Morphine Sulfate (morphine) 2 mg Q4H PRN IV PAIN LEVEL 7-10; Start 06/16/16 at 12:30 Pantoprazole (Protonix Iv) 40 mg DAILY@06 IV ; Start 06/17/16 at 06:00 KATHERYN LAWTON Jun 16, 2016 12:36
[2016-06-16] MEDS ORDERED: BISACODYL (EC) 5 MG TAB PO PRN (13:00)
[2016-06-16] MEDS ORDERED: CLONIDINE 0.2 MG/24 HR PATCH TRANSDERM SCH (13:00)
[2016-06-16] MEDS ORDERED: ALBUTEROL/IPRATROPIUM (NEB) 3 ML AMP INH SCH (13:00)
[2016-06-16] MEDS ORDERED: HYDROCODONE/APAP (5/325) TAB GTB PRN (13:00)
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
[2016-06-16] MEDS: LACTOBACILLUS CHEW TAB GTB SCH ×2 (15:13→21:00)
[2016-06-16] MEDS: D5W-0.45 NACL + KCL 20 MEQ 1,000 ML IV SCH (15:38)
[2016-06-16 18:30] VITALS: TEMP 98.6
--- NOTE | 2016-06-16 20:29 | QN ---
Documentation Comment Observation Note: Time: 4 hours Family Hx: Negative for diabetes Evaluation: Multiple exams showed improving symptoms and no evidence of clinical decompensation. INDIO MARTÍNEZ MD Jun 16, 2016 20:29
[2016-06-16] MEDS: QUETIAPINE 25 MG TAB GTB SCH (21:00)
[2016-06-16] MEDS: METOPROLOL 25 MG TAB GTB SCH (21:00)
[2016-06-16] MEDS: FAMOTIDINE 20 MG TAB GTB SCH (21:00)
[2016-06-16] MEDS: CHLORHEXIDINE GLUCONATE 15 ML UD CUP MM SCH (21:00)
[2016-06-16] MEDS: FERROUS SULFATE 60 MG/ML 5ML CUP GTB SCH (21:00)
[2016-06-16] MEDS: SENNA TAB GTB SCH (21:00)
[2016-06-16] MEDS: QUETIAPINE 100 MG TAB GTB SCH (21:00)
[2016-06-16 23:13] VITALS: PULSE 62
[2016-06-16 23:30] VITALS: RESP 20
[2016-06-16 23:44] VITALS: BP 126/91; RESP 20
[2016-06-17] VITALS (30 sets, daily range): BP systolic 103–156; BP diastolic 56–92; PULSE 49–86; RESP 13–30
[2016-06-17] MEDS ORDERED: ALBUTEROL 18 GM INHALER INH SCH (01:00)
[2016-06-17] MEDS ORDERED: PENDING SANTYL ORDER FOR WOUND CARE XX PRN (02:00)
[2016-06-17] MEDS: morphine 2 MG INJ IV PRN ×2 (02:20→14:38)
[2016-06-17] MEDS: D5W-0.45 NACL + KCL 20 MEQ 1,000 ML IV SCH ×2 (05:19→21:26)
--- NOTE | 2016-06-17 05:57 | CONS ---
DATE OF ADMISSION: 06/16/2016 DATE OF CONSULTATION: 06/16/2016 TYPE OF CONSULTATION: Gastroenterology Dear Dr. Aguilar: Thank you for asking me to see Mr. Ford in GI consultation. HISTORY OF PRESENT ILLNESS: As you know, the patient is a 65-year-old Hispanic gentleman admit smita to the hospital because of dislodgment of the G-tube. The patient is intubated, has got a trach eostomy. He is alert but is unable to communicate. He had a G-tube placed in the past and now [facility] it came out, replacement of G-tube has been requested. REVIEW OF SYSTEM: Positive for chronic respiratory failure, status post tracheostomy, history of PE G placement, paraplegia, history of alcoholic encephalopathy, history of pneumonia recently. PHYSICAL EXAMINATION: GENERAL: The patient is a 65-year-old Asian gentleman who at this time is alert. He is thin b uilt. He has a tracheostomy at this time. VITAL SIGNS: Blood pressure is 140/100, pulse is 84, respirations 20. CARDIOVASCULAR: Normal heart sounds. RESPIRATORY: Normal breath sounds. ABDOMEN: Showed the G-tube is out at this time. He has got a temporary Rae catheter. LABORATORY DATA: Hemoglobin 8.9, WBC 4200, platelets 223,000. Coagulation prothrombin time 15.2. Potassium 4.2, creatinine 0.47, BUN 23. IMAGING STUDIES: Shows evidence of a chest x-ray seeing a decreased left perihilar infiltrate. CLINICAL IMPRESSION: Dislodged G-tube. At this time, he does have dysphagia. Hence, at this time I took the liberty of inserting a #20 replacement G-tube. Stomach contents came out of the G-tube, indicating that we are in the right place and 10 mL of fluid was instilled into the balloon for rete ntion of the balloon and the procedure was terminated. PLAN: Continue G-tube feeding. Dictated By: CICI ALEJANDRA/NTS Conf#: [id number] DID#: [id number] CC: ANNETTA AGUILAR MD; CICI CALIX MD;*EndCC*
[2016-06-17] MEDS: PANTOPRAZOLE 40 MG INJ IV SCH (05:59)
[2016-06-17] MEDS: CHLORHEXIDINE GLUCONATE 15 ML UD CUP MM SCH ×2 (08:58→21:23)
[2016-06-17] MEDS: CALCIUM CARBONATE 1.25 GM TAB GTB SCH (09:00)
[2016-06-17] MEDS: ASCORBIC ACID 500 MG TAB GTB SCH (09:00)
[2016-06-17] MEDS: LACTOBACILLUS CHEW TAB GTB SCH (09:00)
[2016-06-17] MEDS: MULTIVITAMINS/MINERALS TAB GTB SCH (09:00)
[2016-06-17] MEDS: ASPIRIN 81 MG TAB PO SCH (09:00)
[2016-06-17] MEDS: THIAMINE 100 MG TAB GTB SCH (09:00)
[2016-06-17] MEDS: METOPROLOL 25 MG TAB GTB SCH ×2 (09:00→21:22)
[2016-06-17] MEDS: BENAZEPRIL 5 MG TAB GTB SCH (09:00)
[2016-06-17] MEDS ORDERED: COLLAGENASE 30 GM TUBE TOP PRN (09:00)
[2016-06-17] MEDS: FERROUS SULFATE 60 MG/ML 5ML CUP GTB SCH ×2 (09:00→21:23)
[2016-06-17] MEDS: FAMOTIDINE 20 MG TAB GTB SCH ×2 (09:00→21:26)
[2016-06-17] MEDS: QUETIAPINE 25 MG TAB GTB SCH ×2 (09:00→21:23)
--- NOTE | 2016-06-17 11:43 | CONS ---
Date/Time of Note Date/Time of Note DATE: 06/17/16 TIME: 11:40 Assessment/Plan Assessment/Plan Additional Assessment/Plan Ventilator settings; AC of 12, tidal volume 450, PEEP of 5, 30% FiO2. Assessment recommendations; 1. Patient admitted for G-tube dislodgment status post replacement. 2. Chronic respiratory failure due to severe hypoventilation. 3. Recent severe pneumonia with interval resolution. 4. Alcoholic encephalopathy. 5. Paraplegia. 6. Systolic dysfunction. Continue current treatment. Patient can be transferred to [facility]. Consultation Date/Type/Reason Admit Date/Time Jun 16, 2016 at 05:35 Initial Consult Date 06/16/16 Type of Consultation: Pulmonary/critical care 24 HR Interval Summary Free Text/Dictation Patient condition remains stable. Remains awake alert. Remains ventilator dependent. Has remained hemodynamically stable. Patient underwent G-tube replacement yesterday. General exam; elderly male, awake alert currently in no distress. Exam/Review of Systems Vital Signs Vitals Vital Signs Date Time Temp Pulse Resp B/P Pulse Ox O2 Delivery O2 Flow Rate FiO2 06/17/16 11:19 97.9 57 14 154/80 97 Mechanical Ventilator Trach Collar 06/17/16 11:05 50 Intake and Output 06/16/16 06/16/16 06/17/16 15:00 23:00 07:00 Intake Total 420 ml Balance 420 ml Exam HEENT examination; supple neck, no JVD. No lymphadenopathy. Midline trachea. No thyromegaly. Patient upper jaw is edentulous. Pupils are midsize and reactive to light bilaterally. Tracheostomy placed with clean insertion site. Next Chest examination; clear to auscultation. S1-S2 audible, no murmurs. Regular rhythm. Abdomen examination; soft, nondistended. Nontender. Bowel sounds audible. G- tube in place. Extremity examination; no peripheral edema. COATING MANAGER examination; patient is awake alert able to move upper extremities and has stable paraplegia. Results Result Diagram: 06/16/16 0350 06/16/16 0350 Medications Medications Current Medications Potassium Chloride/Dextrose/ Sod Cl (D5-1/2ns + KCl 20 Meq) 1,000 ml @ 70 mls/ hr [id number] IV Last administered on 06/17/16t 05:19; Admin Dose 70 MLS/HR; Start 06/16/16 at 12:04 Lorazepam (Ativan) 0.5 mg Q6H PRN IV ANXIETY; Start 06/16/16 at 12:30 Ondansetron HCl (Zofran Inj) 4 mg Q6H PRN IV NAUSEA AND/OR VOMITING; Start at 12:30 Morphine Sulfate (morphine) 2 mg Q4H PRN IV PAIN LEVEL 7-10 Last administered on 06/17/16 02:20; Admin Dose 2 MG; Start 06/16/16 at 12:30 Pantoprazole (Protonix Iv) 40 mg DAILY@06 IV Last administered on 06/17/16 05: 59; Admin Dose 40 MG; Start 06/17/16 at 06:00 Acetaminophen (Tylenol Liquid) 650 mg Q6H PRN GTB FEVER >101; Start 06/16/16 at 13:00 Ascorbic Acid (Vitamin C) 500 mg DAILY GTB ; Start 06/17/16 at 09:00 Aspirin (Aspirin) 81 mg DAILY PO ; Start 06/17/16 at 09:00 Benazepril HCl (Lotensin) 5 mg DAILY GTB ; Start 06/17/16 at 09:00 Bisacodyl (Dulcolax) 10 mg DAILY PRN PO CONSTIPATION; Start 06/16/16 at 13:00; Status UNV Chlorhexidine Gluconate (Peridex) 15 ml BID MM Last administered on 06/17/16 08:58; Admin Dose 15 ML; Start 06/16/16 at 21:00 Clonidine HCl (Catapres-Tts 2 Patch) 1 patch Q7D TRANSDERM Last administered on 06/16/16 15:37; Admin Dose 1 PATCH; Start 06/16/16 at 13:00 Famotidine (Pepcid) 20 mg BID GTB ; Start 06/16/16 at 21:00 Ferrous Sulfate (Feosol Liquid Cup) 300 mg BID GTB ; Start 06/16/16 at 21:00 Acetaminophen/ Hydrocodone Bitart ([place] (5/325)) 1 tab Q4H PRN GTB PAIN LEVEL 6-10; Start 06/16/16 at 13:00 Lactobacillus Acidoph/Bulgaricus (Floranex) 1 tab TID GTB Last administered on 06/16/16 15:13; Admin Dose 1 TAB; Start 06/16/16 at 13:00 Lorazepam (Ativan) 0.5 mg Q6 PRN GTB ANXIETY; Start 06/16/16 at 13:00 Metoprolol Tartrate (Lopressor) 25 mg BID GTB ; Start 06/16/16 at 21:00 Quetiapine Fumarate (Seroquel) 25 mg BID GTB ; Start 06/16/16 at 21:00 Quetiapine Fumarate (Seroquel) 200 mg HS GTB ; Start 06/16/16 at 21:00 Senna (Senokot) 1 tab QHS GTB ; Start 06/16/16 at 21:00 Thiamine HCl (Vitamin B1) 100 mg DAILY GTB ; Start 06/17/16 at 09:00 Calcium Carbonate (Oyster Shell Calcium) 1.25 gm DAILY GTB ; Start 06/17/16 at 09:00 Multivitamins/ Minerals (Theragran-M) 1 tab DAILY GTB ; Start 06/17/16 at 09:00 Miscellaneous Information (*Order Clarification Bulletin) MEDICATION REQUIRES CLARIFICATION: Q8H XX ; Start 06/16/16 at 13:30 Clonidine (Catapres) 0.1 mg Q6H PRN GTB ELEVATED BLOOD PRESSURE; Start at 08:00 Collagenase (Santyl) 1 applic DAILY TOP ; Start 06/17/16 at 09:00 Collagenase (Santyl) 1 applic DAILY PRN TOP WOUND CARE; Start 06/17/16 at 09:00 KATHERYN LAWTON Jun 17, 2016 11:43
[2016-06-17] MEDS: IPRATROPIUM (HFA) 12.9 GM INHALER INH SCH ×2 (13:00→15:00)
[2016-06-17] MEDS ORDERED: ALBUTEROL/IPRATROPIUM (NEB) 3 ML AMP HHN PRN (13:30)
[2016-06-17] MEDS: L ACIDOPHIL/B LACTIS/B LONGUM CAPSULE PEG SCH ×2 (13:30→21:25)
--- NOTE | 2016-06-17 14:37 | HP ---
Date/Time of Note Date/Time of Note DATE: 06/17/16 TIME: 14:36 Assessment/Plan VTE Prophylaxis VTE Prophylaxis Intervention: other Lines/Catheters IV C[facility]ter Type (from [facility] Saline Lock Urinary Cath still in place: No Assessment/Plan Assessment/Plan - Encounter for gastrojejunal tube placement - per Dr. Marcus, gastroenterology consultation. - Possible G-tube cellulitis. - broad spectrum antibiotics. - Ventilator dependent respiratory failure. - per Dr. Matthews full stack web developer consultation. - Anemia of chronic inflammation. Continue to monitor hemoglobin and hematocrit. - Hypertension. Continue to monitor blood pressure. - Schizoaffective disorder. -no acute issues - Bedbound status. Continue sequential compression device for deep venous thrombosis prophylaxis and Protonix for peptic ulcer disease prophylaxis. Further recommendations based on clinical course. Plan of care discussed with Dr. Colunga. HPI/ROS Admit Date/Time Admit Date/Time Jun 16, 2016 at 05:35 Hx of Present Illness from [facility], pulled out GTube, hickey holding stoma open. vented. HPI This is a 5-year-old while sent in from [facility] for pulling out his G-tube. Hickey holding stoma open. Patient has a chronic trach to vent patient history is limited to EMS run sheet detention transfer sheet ROS All systems reviewed and are negative except as per history of present illness. Medications Home Meds Reported Medications Thiamine* (Thiamine*) 100 Mg Tablet, 100 MG GTB DAILY, TAB 03/30/16 Sennosides* (Senna Lax*) 8.6 Mg Tablet, 1 TAB GTB QHS for CONSTIPATION, TAB HOLD FOR LBM>2 03/30/16 Quetiapine Fumarate* (Quetiapine Fumarate*) 200 Mg Tablet, 200 MG GTB HS, TAB 03/30/16 Quetiapine Fumarate* (Quetiapine Fumarate*) 25 Mg Tablet, 25 MG GTB BID, TAB 03/30/16 Protein Supplement (Promod) 946 Ml Liquid, 30 ML GTB BID 03/30/16 Amino Acids/Protein Hydrolys (Pro-Stat Profile Liquid) 30 Ml Liquid, 30 ML GTB BID 03/30/16 Hydrocodone/Acetaminophen ([place] 5-325 Tablet) 1 Each Tablet, 1 EACH GTB Q4 Y for PAIN LEVEL 6-10, TAB EVERY DAY SHIFT FOR PRIOR TO WOUND CARE 03/30/16 Multivitamin with Minerals (Multivitamins with Minerals) 1 Each Tablet, 1 EACH GTB DAILY, TAB 03/30/16 Lorazepam* (Lorazepam*) 1 Mg Tablet, 1 MG GTB Q6, #60 TAB 03/30/16 Lactulose* (Lactulose*) 20 Gm/30 Ml Solution, 30 ML GTB DAILY for CONSTIPATION, ML HOLD FOR LBM>2 03/30/16 Sod Phosphate/Sod Biphosphate* (Fleet* Enema Pediatric) 66.6 Ml Soln, 66.6 ML DE DAILY Y for CONSTIPATION, ENEMA 03/30/16 Ferrous Sulfate (Ferrous Sulfate) 300 Mg/5 Ml Liquid, 300 MG GTB BID 03/30/16 Enoxaparin Sodium* (Enoxaparin Sodium*) 30 Mg/0.3 Ml Syringe, 30 MG SC DAILY, SYR 03/30/16 Ipratropium-Albuterol (Ipratropium-Albuterol) 0.5-3 Mg/3 Ml Ampul.neb, 3 ML INHALATION Q2H, #30 VIAL USED Q2H OR Q4H FOR ASTHMA 03/30/16 Chlorhexidine Gluconate (Peridex) 473 Ml Mouthwash, 15 ML MM BID, BOTTLE 03/30/16 Calcium Carbonate (Calcium Carbonate) 500 Mg Tab.chew, 500 MG GTB DAILY, TAB.CHEW 03/30/16 Bisacodyl* (Bisacodyl*) 5 Mg Tablet.dr, 10 MG GTB DAILY Y for CONSTIPATION, TAB 03/30/16 Ascorbic Acid (Vitamin C) 500 Mg Tab, 500 MG GTB DAILY, TAB 03/30/16 Acetaminophen* (Acetaminophen*) 650 Mg Tablet, 650 MG GTB Q6H Y for FEVER >101, #30 TAB 03/30/16 Acetaminophen* (Acetaminophen*) 500 MG Extra Strength Tablet, 1000 MG GTB Q8H Y for PAIN LEVEL 1-5, TAB 03/30/16 Allergies Allergies: Coded Allergies: chlorpromazine (Verified Allergy, Mild, 05/05/16) haloperidol (Verified Allergy, Mild, 05/05/16) aripiprazole (Verified Allergy, Unknown, 05/05/16) valproic acid (Verified Allergy, Unknown, 05/05/16) info taken from [facility] PMH/Family/Social Past Medical History History of Surgery: Yes (trach, peg placement) Hx Neurological Disorder: Yes (dementia) Hx Respiratory Disorders: Yes (copd, resp failure, trach - vent dependant) Hx Cardiac Disorders: Yes (HTN, NSTEMI, AFIB) Hx Psychiatric Problems: Yes (anxiety, schizoaffective) Hx Miscellaneous Medical Probl: Yes (anemia, ESBL UTI, BPH, multiple decubs) Hx Alcohol Use: No Hx Substance Use: No Hx Tobacco Use: No Smoking Status: Former smoker Past Surgical History Past Surgical Hx: other (tracheostomy, GT placemnt) Social History Smoking Status: Former smoker Exam/Review of Systems Vital Signs Vitals Vital Signs Date Time Temp Pulse Resp B/P Pulse Ox O2 Delivery O2 Flow Rate FiO2 06/17/16 13:40 52 23 98 50 06/17/16 11:47 98.4 140/71 06/17/16 11:19 Mechanical Ventilator Trach Collar Intake and Output 06/16/16 06/16/16 06/17/16 15:00 23:00 07:00 Intake Total 420 ml Balance 420 ml Exam Constitutional: alert, frail Psych: no complaints Head: normocephalic Eyes: EOMI, nl sclera ENMT: nl external ears & nose, nl nasal mucosa & septum Neck: non-tender Respiratory: normal air movement Cardiovascular: nl pulses Gastrointestinal: non-tender, soft Musculoskeletal: muscle weakness Neurological: other (alert to name, follows simple commands) Skin: other Labs Result Diagram: 06/16/16 0350 06/16/16 0350 Medications Medications Current Medications Potassium Chloride/Dextrose/ Sod Cl (D5-1/2ns + KCl 20 Meq) 1,000 ml @ 70 mls/ hr [id number] IV Last administered on 06/17/16 05:19; Admin Dose 70 MLS/HR; Start 06/16/16 at 12:04 Lorazepam (Ativan) 0.5 mg Q6H PRN IV ANXIETY; Start 06/16/16 at 12:30 Ondansetron HCl (Zofran Inj) 4 mg Q6H PRN IV NAUSEA AND/OR VOMITING; Start at 12:30 Morphine Sulfate (morphine) 2 mg Q4H PRN IV PAIN LEVEL 7-10 Last administered on 06/17/16 02:20; Admin Dose 2 MG; Start 06/16/16 at 12:30 Pantoprazole (Protonix Iv) 40 mg DAILY@06 IV Last administered on 06/17/16 05: 59; Admin Dose 40 MG; Start 06/17/16 at 06:00 Acetaminophen (Tylenol Liquid) 650 mg Q6H PRN GTB FEVER >101; Start 06/16/16 at 13:00 Ascorbic Acid (Vitamin C) 500 mg DAILY GTB ; Start 06/17/16 at 09:00 Aspirin (Aspirin) 81 mg DAILY PO ; Start 06/17/16 at 09:00 Benazepril HCl (Lotensin) 5 mg DAILY GTB ; Start 06/17/16 at 09:00 Bisacodyl (Dulcolax) 10 mg DAILY PRN PO CONSTIPATION; Start 06/16/16 at 13:00 Chlorhexidine Gluconate (Peridex) 15 ml BID MM Last administered on 06/17/16 08:58; Admin Dose 15 ML; Start 06/16/16 at 21:00 Clonidine HCl (Catapres-Tts 2 Patch) 1 patch Q7D TRANSDERM Last administered on 06/16/16 15:37; Admin Dose 1 PATCH; Start 06/16/16 at 13:00 Famotidine (Pepcid) 20 mg BID GTB ; Start 06/16/16 at 21:00 Ferrous Sulfate (Feosol Liquid Cup) 300 mg BID GTB ; Start 06/16/16 at 21:00 Acetaminophen/ Hydrocodone Bitart ([place] (5/325)) 1 tab Q4H PRN GTB PAIN LEVEL 6-10; Start 06/16/16 at 13:00 Lorazepam (Ativan) 0.5 mg Q6 PRN GTB ANXIETY; Start 06/16/16 at 13:00 Metoprolol Tartrate (Lopressor) 25 mg BID GTB ; Start 06/16/16 at 21:00 Quetiapine Fumarate (Seroquel) 25 mg BID GTB ; Start 06/16/16 at 21:00 Quetiapine Fumarate (Seroquel) 200 mg HS GTB ; Start 06/16/16 at 21:00 Senna (Senokot) 1 tab QHS GTB ; Start 06/16/16 at 21:00 Thiamine HCl (Vitamin B1) 100 mg DAILY GTB ; Start 06/17/16 at 09:00 Calcium Carbonate (Oyster Shell Calcium) 1.25 gm DAILY GTB ; Start 06/17/16 at 09:00 Multivitamins/ Minerals (Theragran-M) 1 tab DAILY GTB ; Start 06/17/16 at 09:00 Clonidine (Catapres) 0.1 mg Q6H PRN GTB SBP>160; Start 06/17/16 at 08:00 Collagenase (Santyl) 1 applic DAILY TOP ; Start 06/17/16 at 09:00 Collagenase (Santyl) 1 applic DAILY PRN TOP WOUND CARE; Start 06/17/16 at 09:00 Lactobacillus Acidophilus (Florajen3 Capsule) 1 each TID PEG ; Start 06/17/16 at 13:30 Procedures Procedures EKG: Rate/Rhythm: Normal Sinus Rhythm QRS, ST, T-waves: No changes consistent w/ acute ischemia Impression: No evidence of ischemia or arrhythmia Chest X-ray Soft Tissue: No acute abnormalities Bones: No acute abnormalities Mediastinum/Cardiac Silhouette/Lungs: Left upper lobe pneumonia BRENT KENDRICK Jun 17, 2016 14:37
[2016-06-17] MEDS: COLLAGENASE 30 GM TUBE TOP SCH (14:38)
[2016-06-17] MEDS: SENNA TAB GTB SCH (21:21)
[2016-06-17] MEDS: QUETIAPINE 100 MG TAB GTB SCH (21:22)
[2016-06-18] VITALS (29 sets, daily range): BP systolic 95–161; BP diastolic 51–94; PULSE 40–79; RESP 12–39
[2016-06-18] MEDS: PANTOPRAZOLE 40 MG INJ IV SCH (05:26)
[2016-06-18 06:39] LABS: ADD SCAN DIFF NO
[2016-06-18 06:49] LABS: BASOPHILS % 0.7 % (0.0-2.0); EOSINOPHILS # 0.1 10^3/ul (0.0-0.5); EOSINOPHILS % 1.1 % (0.0-7.0); HEMOGLOBIN 9.8 g/dl (14.0-18.0); LYMPHOCYTES # 1.1 10^3/ul (0.8-2.9); LYMPHOCYTES % 20.9 % (15.0-51.0); MEAN CORPUSCULAR HEMOGLOBIN 28.7 pg (29.0-33.0); MEAN CORPUSCULAR HGB CONC 30.6 g/dl (32.0-37.0); MEAN CORPUSCULAR VOLUME 93.6 fl (82.0-101.0); MONOCYTE # 0.6 10^3/ul (0.3-0.9); MONOCYTES % 11.6 % (0.0-11.0); NEUTROPHIL # 3.6 10^3/ul (1.6-7.5); NEUTROPHILS % 65.3 % (39.0-77.0); RED BLOOD COUNT 3.42 10^6/ul (4.70-6.10); RED CELL DISTRIBUTION WIDTH 17.9 % (11.5-14.5); WHITE BLOOD COUNT 5.5 10^3/ul (4.8-10.8)
[2016-06-18 06:57] LABS: PLATELET COUNT 121 10^3/UL (140-415)
[2016-06-18 07:10] LABS: POTASSIUM 4.5 mmol/L (3.5-5.1)
[2016-06-18 07:13] LABS: CREATININE 0.41 mg/dl (0.61-1.24)
[2016-06-18 07:14] LABS: CALCIUM 8.6 mg/dl (8.4-10.2)
[2016-06-18] MEDS: CHLORHEXIDINE GLUCONATE 15 ML UD CUP MM SCH ×2 (08:12→21:52)
[2016-06-18] MEDS: ASPIRIN 81 MG TAB PO SCH (08:12)
[2016-06-18] MEDS: THIAMINE 100 MG TAB GTB SCH (08:12)
[2016-06-18] MEDS: MULTIVITAMINS/MINERALS TAB GTB SCH (08:12)
[2016-06-18] MEDS: FERROUS SULFATE 60 MG/ML 5ML CUP GTB SCH ×2 (08:12→21:53)
[2016-06-18] MEDS: ASCORBIC ACID 500 MG TAB GTB SCH (08:12)
[2016-06-18] MEDS: BENAZEPRIL 5 MG TAB GTB SCH (08:13)
[2016-06-18] MEDS: FAMOTIDINE 20 MG TAB GTB SCH ×2 (08:13→21:52)
[2016-06-18] MEDS: CALCIUM CARBONATE 1.25 GM TAB GTB SCH (08:13)
[2016-06-18] MEDS: QUETIAPINE 25 MG TAB GTB SCH ×2 (08:18→21:52)
[2016-06-18] MEDS: L ACIDOPHIL/B LACTIS/B LONGUM CAPSULE PEG SCH ×3 (09:50→21:52)
--- NOTE | 2016-06-18 10:31 | CONS ---
Date/Time of Note Date/Time of Note DATE: 06/18/16 TIME: 10:29 Assessment/Plan Assessment/Plan Additional Assessment/Plan Ventilator settings; AC of 12, tidal volume 500, PEEP of 5, 50% FiO2. Assessment recommendations; 1. Patient admitted for G-tube dislodgment status post replacement. 2. Chronic respiratory failure. 3. Alcoholic encephalopathy. 4. History of recent severe pneumonia. 5. Systolic dysfunction. Continue current treatment. Patient can be transferred to the [facility]. Consultation Date/Type/Reason Admit Date/Time Jun 17, 2016 at 15:42 Initial Consult Date 06/16/16 Type of Consultation: Pulmonary/critical care 24 HR Interval Summary Free Text/Dictation Patient condition remains stable. Remains awake alert. Remains confused off and on. Has remained hemodynamically stable. General exam; elderly male, on ventilator via tracheostomy currently in no distress. Exam/Review of Systems Vital Signs Vitals Vital Signs Date Time Temp Pulse Resp B/P Pulse Ox O2 Delivery O2 Flow Rate FiO2 06/18/16 10:14 98.0 68 18 139/76 97 06/18/16 09:15 50 06/18/16 06:00 Mechanical Ventilator Intake and Output 06/17/16 06/17/16 06/18/16 15:00 23:00 07:00 Intake Total 1050 ml Balance 1050 ml Exam HEENT examination; supple neck, no JVD. No lymphadenopathy. Midline trachea. No thyromegaly. Tracheostomy placed with clean insertion site. Patient upper jaw is edentulous. Pupils are midsize and reactive to light. Chest examination; clear to auscultation. S1-S2 audible, no murmurs. Regular rhythm. Abdomen examination; soft, nondistended. No organomegaly. G-tube in place. Bowel sounds audible. Extremity examination; no peripheral edema. SHOE LACER examination; patient is awake alert able to move both upper extremities and has stable paraplegia. Results Result Diagram: 06/18/16 0540 06/18/16 0540 Results 24 hrs Laboratory Tests Test 06/18/16 05:40 White Blood Count 5.5 # Red Blood Count 3.42 L Hemoglobin 9.8 L Hematocrit 32.0 L Mean Corpuscular Volume 93.6 Mean Corpuscular Hemoglobin 28.7 L Mean Corpuscular Hemoglobin Concent 30.6 L Red Cell Distribution Width 17.9 H Platelet Count 121 #L Mean Platelet Volume 12.0 H Neutrophils % 65.3 Lymphocytes % 20.9 Monocytes % 11.6 H Eosinophils % 1.1 Basophils % 0.7 Nucleated Red Blood Cells % 0.0 Neutrophils # 3.6 Lymphocytes # 1.1 Monocytes # 0.6 Eosinophils # 0.1 Basophils # 0.0 Nucleated Red Blood Cells # 0.0 Sodium Level 133 L Potassium Level 4.5 Chloride Level 101 Carbon Dioxide Level 25 Anion Gap 12 Blood Urea Nitrogen 19 Creatinine 0.41 L Glucose Level 94 Calcium Level 8.6 Medications Medications Current Medications Potassium Chloride/Dextrose/ Sod Cl (D5-1/2ns + KCl 20 Meq) 1,000 ml @ 40 mls/ hr Q24H IV Last administered on 06/17/16 21:26; Admin Dose 40 MLS/HR; Start at 12:04 Lorazepam (Ativan) 0.5 mg Q6H PRN IV ANXIETY; Start 06/16/16 at 12:30 Ondansetron HCl (Zofran Inj) 4 mg Q6H PRN IV NAUSEA AND/OR VOMITING; Start at 12:30 Morphine Sulfate (morphine) 2 mg Q4H PRN IV PAIN LEVEL 7-10 Last administered on 06/17/16 14:38; Admin Dose 2 MG; Start 06/16/16 at 12:30 Pantoprazole (Protonix Iv) 40 mg DAILY@06 IV Last administered on 06/18/16 05: 26; Admin Dose 40 MG; Start 06/17/16 at 06:00 Acetaminophen (Tylenol Liquid) 650 mg Q6H PRN GTB FEVER >101; Start 06/16/16 at 13:00 Ascorbic Acid (Vitamin C) 500 mg DAILY GTB Last administered on 06/18/16 08:12 ; Admin Dose 500 MG; Start 06/17/16 at 09:00 Aspirin (Aspirin) 81 mg DAILY PO Last administered on 06/18/16 08:12; Admin Dose 81 MG; Start 06/17/16 at 09:00 Benazepril HCl (Lotensin) 5 mg DAILY GTB Last administered on 06/18/16 08:13; Admin Dose 5 MG; Start 06/17/16 at 09:00 Bisacodyl (Dulcolax) 10 mg DAILY PRN PO CONSTIPATION; Start 06/16/16 at 13:00 Chlorhexidine Gluconate (Peridex) 15 ml BID MM Last administered on 06/18/16 08:12; Admin Dose 15 ML; Start 06/16/16 at 21:00 Famotidine (Pepcid) 20 mg BID GTB Last administered on 06/18/16 08:13; Admin Dose 20 MG; Start 06/16/16 at 21:00 Ferrous Sulfate (Feosol Liquid Cup) 300 mg BID GTB Last administered on 08:12; Admin Dose 300 MG; Start 06/16/16 at 21:00 Acetaminophen/ Hydrocodone Bitart ([place] (5/325)) 1 tab Q4H PRN GTB PAIN LEVEL 6-10; Start 06/16/16 at 13:00 Lorazepam (Ativan) 0.5 mg Q6 PRN GTB ANXIETY; Start 06/16/16 at 13:00 Quetiapine Fumarate (Seroquel) 25 mg BID GTB Last administered on 06/18/16 08: 18; Admin Dose 25 MG; Start 06/16/16 at 21:00 Quetiapine Fumarate (Seroquel) 200 mg HS GTB Last administered on 06/17/16 21: 22; Admin Dose 200 MG; Start 06/16/16 at 21:00 Senna (Senokot) 1 tab QHS GTB Last administered on 06/17/16 21:21; Admin Dose 1 TAB; Start 06/16/16 at 21:00 Thiamine HCl (Vitamin B1) 100 mg DAILY GTB Last administered on 06/18/16 08:12 ; Admin Dose 100 MG; Start 06/17/16 at 09:00 Calcium Carbonate (Oyster Shell Calcium) 1.25 gm DAILY GTB Last administered on 06/18/16 08:13; Admin Dose 1.25 GM; Start 06/17/16 at 09:00 Multivitamins/ Minerals (Theragran-M) 1 tab DAILY GTB Last administered on 06/18 08:12; Admin Dose 1 TAB; Start 06/17/16 at 09:00 Clonidine (Catapres) 0.1 mg Q6H PRN GTB SBP>160; Start 06/17/16 at 08:00 Collagenase (Santyl) 1 applic DAILY TOP Last administered on 06/17/16 14:38; Admin Dose 1 APPLIC; Start 06/17/16 at 09:00 Collagenase (Santyl) 1 applic DAILY PRN TOP WOUND CARE; Start 06/17/16 at 09:00 Lactobacillus Acidophilus (Florajen3 Capsule) 1 each TID PEG Last administered on 06/18/16 09:50; Admin Dose 1 EACH; Start 06/17/16 at 13:30 KATHERYN LAWTON Jun 18, 2016 10:31
[2016-06-18] MEDS: COLLAGENASE 30 GM TUBE TOP SCH (13:24)
[2016-06-18] MEDS: D5W-0.45 NACL + KCL 20 MEQ 1,000 ML IV SCH (16:59)
--- NOTE | 2016-06-18 17:02 | PN ---
Date/Time of Note Date/Time of Note DATE: 06/18/16 TIME: 16:56 Assessment/Plan VTE Prophylaxis VTE Prophylaxis Intervention: SCD's Lines/Catheters [facility]from [facility] Saline Lock Urinary Cath still in place: No Assessment/Plan Chief Complaint/Hosp Course ASSESSMENT AND PLAN: 1. G-tube dislodgement. G-tube in ring inserted by Dr. Marcus, gastroenterology consultation. 2. Possible G-tube cellulitis. We will start patient on broad spectrum antibiotics. 3. Ventilator dependent respiratory failure. Dr. Matthews isfollowing the patient in complaint coordinator consultation. 4. Anemia of chronic inflammation. Continue to monitor hemoglobin and hematocrit. 5. Hypertension. Continue to monitor blood pressure. 6. Schizoaffective disorder. 7. Bedbound status. Continue sequential compression device for deep venous thrombosis prophylaxis and Protonix for peptic ulcer disease prophylaxis. Further recommendations based on clinical course. Plan of care discussed with Dr. Colunga. Problems: Subjective 24 Hr Interval Summary Free Text/Dictation Patient is bradycardic bradycardic with heart rate in the 40s, metoprolol is held, continue to monitor on telemetry, patient tolerates G-tube feeding well. Exam/Review of Systems Vital Signs Vitals Vital Signs Date Time Temp Pulse Resp B/P Pulse Ox O2 Delivery O2 Flow Rate FiO2 06/18/16 16:53 69 06/18/16 16:41 97.9 19 161/88 98 06/18/16 15:15 30 06/18/16 14:46 Mechanical Ventilator Intake and Output 06/17/16 06/17/16 06/18/16 15:00 23:00 07:00 Intake Total 1050 ml Balance 1050 ml Exam GENERAL: Well-developed, cachectic gentleman currently is awake, alert, on ventilatory support. HEENT: Head is atraumatic, normocephalic. PERRLA. NECK: Supple. CHEST: Patient has a tracheostomy site with no bleeding, moderate amount of secretions. LUNGS: Scattered rhonchi bilaterally, diminished at the bases. CARDIOVASCULAR: Normal S1, S2. No murmurs, gallops, clicks, rubs noted. ABDOMEN: Flat, soft, nondistended, nontender. Bowel sounds present. GT. EXTREMITIES: Bilateral lower extremities contracted. Pulses equal bilaterally 2+. SKIN: There is no rash, petechiae noted. NEUROLOGIC: Patient is awake, alert and oriented to name, otherwise, confused. Results Result Diagram: 06/18/16 0540 06/18/16 0540 Results 24 hrs Laboratory Tests Test 06/18/16 05:40 White Blood Count 5.5 # Red Blood Count 3.42 L Hemoglobin 9.8 L Hematocrit 32.0 L Mean Corpuscular Volume 93.6 Mean Corpuscular Hemoglobin 28.7 L Mean Corpuscular Hemoglobin Concent 30.6 L Red Cell Distribution Width 17.9 H Platelet Count 121 #L Mean Platelet Volume 12.0 H Neutrophils % 65.3 Lymphocytes % 20.9 Monocytes % 11.6 H Eosinophils % 1.1 Basophils % 0.7 Nucleated Red Blood Cells % 0.0 Neutrophils # 3.6 Lymphocytes # 1.1 Monocytes # 0.6 Eosinophils # 0.1 Basophils # 0.0 Nucleated Red Blood Cells # 0.0 Sodium Level 133 L Potassium Level 4.5 Chloride Level 101 Carbon Dioxide Level 25 Anion Gap 12 Blood Urea Nitrogen 19 Creatinine 0.41 L Glucose Level 94 Calcium Level 8.6 Medications Medications Current Medications Potassium Chloride/Dextrose/ Sod Cl (D5-1/2ns + KCl 20 Meq) 1,000 ml @ 40 mls/ hr Q24H IV Last administered on 06/17/16 21:26; Admin Dose 40 MLS/HR; Start at 12:04 Lorazepam (Ativan) 0.5 mg Q6H PRN IV ANXIETY; Start 06/16/16 at 12:30 Ondansetron HCl (Zofran Inj) 4 mg Q6H PRN IV NAUSEA AND/OR VOMITING; Start at 12:30 Morphine Sulfate (morphine) 2 mg Q4H PRN IV PAIN LEVEL 7-10 Last administered on 06/17/16 14:38; Admin Dose 2 MG; Start 06/16/16 at 12:30 Pantoprazole (Protonix Iv) 40 mg DAILY@06 IV Last administered on 06/18/16 05: 26; Admin Dose 40 MG; Start 06/17/16 at 06:00 Acetaminophen (Tylenol Liquid) 650 mg Q6H PRN GTB FEVER >101; Start 06/16/16 at 13:00 Ascorbic Acid (Vitamin C) 500 mg DAILY GTB Last administered on 06/18/16 08:12 ; Admin Dose 500 MG; Start 06/17/16 at 09:00 Aspirin (Aspirin) 81 mg DAILY PO Last administered on 06/18/16 08:12; Admin Dose 81 MG; Start 06/17/16 at 09:00 Benazepril HCl (Lotensin) 5 mg DAILY GTB Last administered on 06/18/16 08:13; Admin Dose 5 MG; Start 06/17/16 at 09:00 Bisacodyl (Dulcolax) 10 mg DAILY PRN PO CONSTIPATION; Start 06/16/16 at 13:00 Chlorhexidine Gluconate (Peridex) 15 ml BID MM Last administered on 06/18/16 08:12; Admin Dose 15 ML; Start 06/16/16 at 21:00 Famotidine (Pepcid) 20 mg BID GTB Last administered on 06/18/16 08:13; Admin Dose 20 MG; Start 06/16/16 at 21:00 Ferrous Sulfate (Feosol Liquid Cup) 300 mg BID GTB Last administered on 08:12; Admin Dose 300 MG; Start 06/16/16 at 21:00 Acetaminophen/ Hydrocodone Bitart ([place] (5/325)) 1 tab Q4H PRN GTB PAIN LEVEL 6-10; Start 06/16/16 at 13:00 Lorazepam (Ativan) 0.5 mg Q6 PRN GTB ANXIETY; Start 06/16/16 at 13:00 Quetiapine Fumarate (Seroquel) 25 mg BID GTB Last administered on 06/18/16 08: 18; Admin Dose 25 MG; Start 06/16/16 at 21:00 Quetiapine Fumarate (Seroquel) 200 mg HS GTB Last administered on 06/17/16 21: 22; Admin Dose 200 MG; Start 06/16/16 at 21:00 Senna (Senokot) 1 tab QHS GTB Last administered on 06/17/16 21:21; Admin Dose 1 TAB; Start 06/16/16 at 21:00 Thiamine HCl (Vitamin B1) 100 mg DAILY GTB Last administered on 06/18/16 08:12 ; Admin Dose 100 MG; Start 06/17/16 at 09:00 Calcium Carbonate (Oyster Shell Calcium) 1.25 gm DAILY GTB Last administered on 06/18/16 08:13; Admin Dose 1.25 GM; Start 06/17/16 at 09:00 Multivitamins/ Minerals (Theragran-M) 1 tab DAILY GTB Last administered on 06/18 08:12; Admin Dose 1 TAB; Start 06/17/16 at 09:00 Clonidine (Catapres) 0.1 mg Q6H PRN GTB SBP>160; Start 06/17/16 at 08:00 Collagenase (Santyl) 1 applic DAILY TOP Last administered on 06/18/16 13:24; Admin Dose 1 APPLIC; Start 06/17/16 at 09:00 Collagenase (Santyl) 1 applic DAILY PRN TOP WOUND CARE; Start 06/17/16 at 09:00 Lactobacillus Acidophilus (Florajen3 Capsule) 1 each TID PEG Last administered on 06/18/16 13:24; Admin Dose 1 EACH; Start 06/17/16 at 13:30 SHELBY BUNCH Jun 18, 2016 17:02
[2016-06-18] MEDS: morphine 2 MG INJ IV PRN (17:41)
[2016-06-18] MEDS: SENNA TAB GTB SCH (21:00)
[2016-06-18] MEDS: QUETIAPINE 100 MG TAB GTB SCH (21:52)
[2016-06-19] VITALS (31 sets, daily range): BP systolic 108–174; BP diastolic 64–98; PULSE 62–79; RESP 12–27
[2016-06-19] MEDS: PANTOPRAZOLE 40 MG INJ IV SCH (06:24)
[2016-06-19] MEDS: CHLORHEXIDINE GLUCONATE 15 ML UD CUP MM SCH ×2 (08:54→20:09)
[2016-06-19] MEDS: FERROUS SULFATE 60 MG/ML 5ML CUP GTB SCH ×2 (08:54→20:09)
[2016-06-19] MEDS: L ACIDOPHIL/B LACTIS/B LONGUM CAPSULE PEG SCH ×3 (08:55→21:00)
[2016-06-19] MEDS: ASCORBIC ACID 500 MG TAB GTB SCH (08:55)
[2016-06-19] MEDS: THIAMINE 100 MG TAB GTB SCH (08:55)
[2016-06-19] MEDS: ASPIRIN 81 MG TAB PO SCH (08:55)
[2016-06-19] MEDS: MULTIVITAMINS/MINERALS TAB GTB SCH (08:55)
[2016-06-19] MEDS: CALCIUM CARBONATE 1.25 GM TAB GTB SCH (08:55)
[2016-06-19] MEDS: BENAZEPRIL 5 MG TAB GTB SCH (08:56)
[2016-06-19] MEDS: QUETIAPINE 25 MG TAB GTB SCH ×2 (08:56→20:09)
[2016-06-19] MEDS: COLLAGENASE 30 GM TUBE TOP SCH (08:57)
[2016-06-19] MEDS: morphine 2 MG INJ IV PRN ×2 (10:16→23:56)
[2016-06-19] MEDS: ACETAMINOPHEN 650MG/20.3ML CUP GTB PRN ×2 (10:31→16:44)
[2016-06-19 10:42] LABS: ADD SCAN DIFF NO
[2016-06-19 10:55] LABS: BASOPHILS % 0.4 % (0.0-2.0); EOSINOPHILS % 0.7 % (0.0-7.0); HEMATOCRIT 26.4 % (42.0-52.0); HEMOGLOBIN 8.5 g/dl (14.0-18.0); LYMPHOCYTES # 0.8 10^3/ul (0.8-2.9); LYMPHOCYTES % 14.2 % (15.0-51.0); MEAN CORPUSCULAR HEMOGLOBIN 28.7 pg (29.0-33.0); MEAN CORPUSCULAR HGB CONC 32.2 g/dl (32.0-37.0); MEAN CORPUSCULAR VOLUME 89.2 fl (82.0-101.0); MEAN PLATELET VOLUME 11.4 fl (7.4-10.4); MONOCYTE # 0.4 10^3/ul (0.3-0.9); MONOCYTES % 7.3 % (0.0-11.0); NEUTROPHIL # 4.2 10^3/ul (1.6-7.5); NEUTROPHILS % 77.2 % (39.0-77.0); PLATELET COUNT 203 10^3/UL (140-415); RED BLOOD COUNT 2.96 10^6/ul (4.70-6.10); RED CELL DISTRIBUTION WIDTH 17.2 % (11.5-14.5); WHITE BLOOD COUNT 5.5 10^3/ul (4.8-10.8)
[2016-06-19 11:04] LABS: CALCIUM 8.4 mg/dl (8.4-10.2); CREATININE 0.45 mg/dl (0.61-1.24); POTASSIUM 4.8 mmol/L (3.5-5.1)
--- NOTE | 2016-06-19 11:25 | PN ---
Date/Time of Note Date/Time of Note DATE: 06/19/16 TIME: 11:25 Assessment/Plan VTE Prophylaxis VTE Prophylaxis Intervention: other Lines/Catheters [facility] Saline Lock Urinary Cath still in place: No Assessment/Plan Chief Complaint/Hosp Course 1. G-tube dislodgement. G-tube in ring inserted by Dr. Marcus, gastroenterology consultation. 2. Possible G-tube cellulitis. We will start patient on broad spectrum antibiotics. 3. Ventilator dependent respiratory failure. Dr. Matthews isfollowing the patient in floor space allocator consultation. 4. Anemia of chronic inflammation. Continue to monitor hemoglobin and hematocrit. 5. Hypertension. Continue to monitor blood pressure. 6. Schizoaffective disorder. 7. Bedbound status. Problems: Subjective 24 Hr Interval Summary Free Text/Dictation Patient is doing ok, has no complaints Exam/Review of Systems Vital Signs Vitals Vital Signs Date Time Temp Pulse Resp B/P Pulse Ox O2 Delivery O2 Flow Rate FiO2 06/19/16 11:00 98.8 124/78 06/19/16 10:15 66 19 99 06/19/16 09:25 50 06/19/16 06:00 Mechanical Ventilator Intake and Output 06/18/16 06/18/16 06/19/16 15:00 23:00 07:00 Intake Total 1250 ml Balance 1250 ml Exam Constitutional: well developed Head: atraumatic, normocephalic Neck: supple Respiratory: diminished breath sounds Cardiovascular: regular rate and rhythm Gastrointestinal: non-tender, soft Extremities: normal pulses Results Result Diagram: 06/19/16 1024 06/19/16 1024 Results 24 hrs Laboratory Tests Test 06/19/16 10:24 White Blood Count 5.5 Red Blood Count 2.96 L Hemoglobin 8.5 L Hematocrit 26.4 L Mean Corpuscular Volume 89.2 Mean Corpuscular Hemoglobin 28.7 L Mean Corpuscular Hemoglobin Concent 32.2 Red Cell Distribution Width 17.2 H Platelet Count 203 # Mean Platelet Volume 11.4 H Neutrophils % 77.2 H Lymphocytes % 14.2 L Monocytes % 7.3 Eosinophils % 0.7 Basophils % 0.4 Nucleated Red Blood Cells % 0.0 Neutrophils # 4.2 Lymphocytes # 0.8 Monocytes # 0.4 Eosinophils # 0.0 Basophils # 0.0 Nucleated Red Blood Cells # 0.0 Sodium Level 133 L Potassium Level 4.8 Chloride Level 101 Carbon Dioxide Level 30 Anion Gap 7 L Blood Urea Nitrogen 15 Creatinine 0.45 L Glucose Level 95 Calcium Level 8.4 Medications Medications Current Medications Potassium Chloride/Dextrose/ Sod Cl (D5-1/2ns + KCl 20 Meq) 1,000 ml @ 40 mls/ hr Q24H IV Last administered on 06/18/16 16:59; Admin Dose 40 MLS/HR; Start at 12:04 Lorazepam (Ativan) 0.5 mg Q6H PRN IV ANXIETY; Start 06/16/16 at 12:30 Ondansetron HCl (Zofran Inj) 4 mg Q6H PRN IV NAUSEA AND/OR VOMITING; Start at 12:30 Morphine Sulfate (morphine) 2 mg Q4H PRN IV PAIN LEVEL 7-10 Last administered on 06/19/16 10:16; Admin Dose 2 MG; Start 06/16/16 at 12:30 Pantoprazole (Protonix Iv) 40 mg DAILY@06 IV Last administered on 06/19/16 06: 24; Admin Dose 40 MG; Start 06/17/16 at 06:00 Acetaminophen (Tylenol Liquid) 650 mg Q6H PRN GTB FEVER >101 Last administered on 06/19/16 10:31; Admin Dose 650 MG; Start 06/16/16 at 13:00 Ascorbic Acid (Vitamin C) 500 mg DAILY GTB Last administered on 06/19/16 08:55 ; Admin Dose 500 MG; Start 06/17/16 at 09:00 Aspirin (Aspirin) 81 mg DAILY PO Last administered on 06/19/16 08:55; Admin Dose 81 MG; Start 06/17/16 at 09:00 Benazepril HCl (Lotensin) 5 mg DAILY GTB Last administered on 06/19/16 08:56; Admin Dose 5 MG; Start 06/17/16 at 09:00 Bisacodyl (Dulcolax) 10 mg DAILY PRN PO CONSTIPATION Last administered on 08:55; Admin Dose 10 MG; Start 06/16/16 at 13:00 Chlorhexidine Gluconate (Peridex) 15 ml BID MM Last administered on 06/19/16 08:54; Admin Dose 15 ML; Start 06/16/16 at 21:00 Famotidine (Pepcid) 20 mg BID GTB Last administered on 06/18/16 21:52; Admin Dose 20 MG; Start 06/16/16 at 21:00; Status Future Hold Ferrous Sulfate (Feosol Liquid Cup) 300 mg BID GTB Last administered on 08:54; Admin Dose 300 MG; Start 06/16/16 at 21:00 Acetaminophen/ Hydrocodone Bitart ([place] (5/325)) 1 tab Q4H PRN GTB PAIN LEVEL 6-10; Start 06/16/16 at 13:00 Lorazepam (Ativan) 0.5 mg Q6 PRN GTB ANXIETY; Start 06/16/16 at 13:00 Quetiapine Fumarate (Seroquel) 25 mg BID GTB Last administered on 06/19/16 08: 56; Admin Dose 25 MG; Start 06/16/16 at 21:00 Quetiapine Fumarate (Seroquel) 200 mg HS GTB Last administered on 06/18/16 21: 52; Admin Dose 200 MG; Start 06/16/16 at 21:00 Senna (Senokot) 1 tab QHS GTB Last administered on 06/17/16 21:21; Admin Dose 1 TAB; Start 06/16/16 at 21:00 Thiamine HCl (Vitamin B1) 100 mg DAILY GTB Last administered on 06/19/16 08:55 ; Admin Dose 100 MG; Start 06/17/16 at 09:00 Calcium Carbonate (Oyster Shell Calcium) 1.25 gm DAILY GTB Last administered on 06/19/16 08:55; Admin Dose 1.25 GM; Start 06/17/16 at 09:00 Multivitamins/ Minerals (Theragran-M) 1 tab DAILY GTB Last administered on 06/19 08:55; Admin Dose 1 TAB; Start 06/17/16 at 09:00 Clonidine (Catapres) 0.1 mg Q6H PRN GTB SBP>160; Start 06/17/16 at 08:00 Collagenase (Santyl) 1 applic DAILY TOP Last administered on 06/19/16 08:57; Admin Dose 1 APPLIC; Start 06/17/16 at 09:00 Collagenase (Santyl) 1 applic DAILY PRN TOP WOUND CARE; Start 06/17/16 at 09:00 Lactobacillus Acidophilus (Florajen3 Capsule) 1 each TID PEG Last administered on 06/19/16t 08:55; Admin Dose 1 EACH; Start 06/17/16 at 13:30 NEELAM RIBERA Jun 19, 2016 11:25
--- NOTE | 2016-06-19 12:09 | CONS ---
Date/Time of Note Date/Time of Note DATE: 06/19/16 TIME: 12:07 Assessment/Plan Assessment/Plan Additional Assessment/Plan Ventilator settings; AC of 12, tidal volume 500, PEEP of 5, 50% FiO2. Assessment recommendations; 1. Patient admitted for G-tube displacement status post replacement. 2. Chronic respiratory failure. 3. Severe hypoventilation, patient remains ventilator dependent. 4. History of recent severe pneumonia. 5. Paraplegia. 6. Systolic dysfunction. 7. Alcoholic encephalopathy. Continue current treatment. Patient can be discharged to [facility]. Consultation Date/Type/Reason Admit Date/Time Jun 17, 2016 at 15:42 Initial Consult Date 06/16/16 Type of Consultation: Pulmonary/critical care 24 HR Interval Summary Free Text/Dictation Patient condition remains stable. Remains ventilator dependent. Remains awake and alert. Still exhibiting signs of alcoholic encephalopathy with episodes of confusion. General exam; elderly male, on ventilator via tracheostomy currently in no distress. Exam/Review of Systems Vital Signs Vitals Vital Signs Date Time Temp Pulse Resp B/P Pulse Ox O2 Delivery O2 Flow Rate FiO2 06/19/16 11:59 99.4 72 23 119/71 100 06/19/16 11:20 50 06/19/16 06:00 Mechanical Ventilator Intake and Output 06/18/16 06/18/16 06/19/16 15:00 23:00 07:00 Intake Total 1250 ml Balance 1250 ml Exam HEENT exam is; supple neck, no JVD. No lymphadenopathy. Midline trachea. No thyromegaly. Tracheostomy in place. Pupils are midsize reactive to light. Patient upper jaw is edentulous. Chest examination; clear to auscultation. S1-S2 audible, no murmurs. Regular rhythm. Abdomen examination; soft, G-tube in place. No organomegaly. Nontender. Bowel sounds audible. Extremity examination; no peripheral edema. ASSISTANT MANAGER AIRSIDE OPERATIONS examination; patient has stable paraplegia. Results Result Diagram: 06/19/16 1024 06/19/16 1024 Results 24 hrs Laboratory Tests Test 06/19/16 10:24 White Blood Count 5.5 Red Blood Count 2.96 L Hemoglobin 8.5 L Hematocrit 26.4 L Mean Corpuscular Volume 89.2 Mean Corpuscular Hemoglobin 28.7 L Mean Corpuscular Hemoglobin Concent 32.2 Red Cell Distribution Width 17.2 H Platelet Count 203 # Mean Platelet Volume 11.4 H Neutrophils % 77.2 H Lymphocytes % 14.2 L Monocytes % 7.3 Eosinophils % 0.7 Basophils % 0.4 Nucleated Red Blood Cells % 0.0 Neutrophils # 4.2 Lymphocytes # 0.8 Monocytes # 0.4 Eosinophils # 0.0 Basophils # 0.0 Nucleated Red Blood Cells # 0.0 Sodium Level 133 L Potassium Level 4.8 Chloride Level 101 Carbon Dioxide Level 30 Anion Gap 7 L Blood Urea Nitrogen 15 Creatinine 0.45 L Glucose Level 95 Calcium Level 8.4 Medications Medications Current Medications Potassium Chloride/Dextrose/ Sod Cl (D5-1/2ns + KCl 20 Meq) 1,000 ml @ 40 mls/ hr Q24H IV Last administered on 06/18/16 16:59; Admin Dose 40 MLS/HR; Start at 12:04 Lorazepam (Ativan) 0.5 mg Q6H PRN IV ANXIETY; Start 06/16/16 at 12:30 Ondansetron HCl (Zofran Inj) 4 mg Q6H PRN IV NAUSEA AND/OR VOMITING; Start at 12:30 Morphine Sulfate (morphine) 2 mg Q4H PRN IV PAIN LEVEL 7-10 Last administered on 06/19/16 10:16; Admin Dose 2 MG; Start 06/16/16 at 12:30 Pantoprazole (Protonix Iv) 40 mg DAILY@06 IV Last administered on 06/19/16 06: 24; Admin Dose 40 MG; Start 06/17/16 at 06:00 Acetaminophen (Tylenol Liquid) 650 mg Q6H PRN GTB FEVER >101 Last administered on 06/19/16 10:31; Admin Dose 650 MG; Start 06/16/16 at 13:00 Ascorbic Acid (Vitamin C) 500 mg DAILY GTB Last administered on 06/19/16 08:55 ; Admin Dose 500 MG; Start 06/17/16 at 09:00 Aspirin (Aspirin) 81 mg DAILY PO Last administered on 06/19/16 08:55; Admin Dose 81 MG; Start 06/17/16 at 09:00 Benazepril HCl (Lotensin) 5 mg DAILY GTB Last administered on 06/19/16 08:56; Admin Dose 5 MG; Start 06/17/16 at 09:00 Bisacodyl (Dulcolax) 10 mg DAILY PRN PO CONSTIPATION Last administered on 08:55; Admin Dose 10 MG; Start 06/16/16 at 13:00 Chlorhexidine Gluconate (Peridex) 15 ml BID MM Last administered on 06/19/16 08:54; Admin Dose 15 ML; Start 06/16/16 at 21:00 Famotidine (Pepcid) 20 mg BID GTB Last administered on 06/18/16 21:52; Admin Dose 20 MG; Start 06/16/16 at 21:00; Status Future Hold Ferrous Sulfate (Feosol Liquid Cup) 300 mg BID GTB Last administered on 08:54; Admin Dose 300 MG; Start 06/16/16 at 21:00 Acetaminophen/ Hydrocodone Bitart ([place] (5/325)) 1 tab Q4H PRN GTB PAIN LEVEL 6-10; Start 06/16/16 at 13:00 Lorazepam (Ativan) 0.5 mg Q6 PRN GTB ANXIETY; Start 06/16/16 at 13:00 Quetiapine Fumarate (Seroquel) 25 mg BID GTB Last administered on 06/19/16 08: 56; Admin Dose 25 MG; Start 06/16/16 at 21:00 Quetiapine Fumarate (Seroquel) 200 mg HS GTB Last administered on 06/18/16 21: 52; Admin Dose 200 MG; Start 06/16/16 at 21:00 Senna (Senokot) 1 tab QHS GTB Last administered on 06/17/16 21:21; Admin Dose 1 TAB; Start 06/16/16 at 21:00 Thiamine HCl (Vitamin B1) 100 mg DAILY GTB Last administered on 06/19/16 08:55 ; Admin Dose 100 MG; Start 06/17/16 at 09:00 Calcium Carbonate (Oyster Shell Calcium) 1.25 gm DAILY GTB Last administered on 06/19/16 08:55; Admin Dose 1.25 GM; Start 06/17/16 at 09:00 Multivitamins/ Minerals (Theragran-M) 1 tab DAILY GTB Last administered on 06/19 08:55; Admin Dose 1 TAB; Start 06/17/16 at 09:00 Clonidine (Catapres) 0.1 mg Q6H PRN GTB SBP>160; Start 06/17/16 at 08:00 Collagenase (Santyl) 1 applic DAILY TOP Last administered on 06/19/16 08:57; Admin Dose 1 APPLIC; Start 06/17/16 at 09:00 Collagenase (Santyl) 1 applic DAILY PRN TOP WOUND CARE; Start 06/17/16 at 09:00 Lactobacillus Acidophilus (Florajen3 Capsule) 1 each TID PEG Last administered on 06/19/16 08:55; Admin Dose 1 EACH; Start 06/17/16 at 13:30 KATHERYN LAWTON Jun 19, 2016 12:09
--- NOTE | 2016-06-19 13:06 | PN ---
DATE: CHIEF COMPLAINT: At this time, patient is alert. He is nonverbal. A G-tube was placed because of difficulty in swallowing. PHYSICAL EXAMINATION: GENERAL: The patient is status post trach, alert, ventilator dependent. VITAL SIGNS: Pulse is 78, blood pressure is 110/82. CARDIOVASCULAR: Normal heart sounds. RESPIRATORY: Normal breath sounds. ABDOMEN: Shows soft abdomen with no palpable masses. G-tube is in place. CLINICAL IMPRESSION: The patient tolerating the G-tube feeding. PLAN: Recommend continue current G-tube feeding. Dictated By: CICI CALIX MD NC/NTS Conf#: [id number] DID#: [id number] CC: CICI CALIX MD;*End*
[2016-06-19] MEDS: D5W-0.45 NACL + KCL 20 MEQ 1,000 ML IV SCH (16:44)
[2016-06-19] MEDS: LORAZEPAM 0.5 MG TAB GTB PRN (20:09)
[2016-06-19] MEDS: SENNA TAB GTB SCH (20:10)
[2016-06-19] MEDS: QUETIAPINE 100 MG TAB GTB SCH (20:10)
[2016-06-20] VITALS (30 sets, daily range): BP systolic 100–134; BP diastolic 61–85; PULSE 59–95; RESP 13–33
[2016-06-20 00:08] LABS: AADO2 Arterial 600.5 mmHg (7.0-24.0); Allen Test ACCEPTAB; Arterial Base Excess 4.6 mmol/L (-3.0-3); Arterial COHb 0.3 % (0.0-3.0); Arterial Fraction of Oxyhgb 89.7 % (93.0-99.0); Arterial HCO3 30.3 mmol/L (22.0-26.0); Arterial MetHb 0.3 % (0.0-1.5); Arterial Total Hemglobin 9.6 g/dl (12.0-18.0); MODE VENT - AC
[2016-06-20] MEDS ORDERED: IPRATROPIUM (HFA) 12.9 GM INHALER INH PRN (01:00)
[2016-06-20] MEDS ORDERED: ALBUTEROL 18 GM INHALER INH PRN (01:00)
[2016-06-20] MEDS: LORAZEPAM 2 MG INJ IV PRN ×3 (03:02→19:49)
[2016-06-20] MEDS: PANTOPRAZOLE 40 MG INJ IV SCH (05:17)
[2016-06-20] MEDS: CHLORHEXIDINE GLUCONATE 15 ML UD CUP MM SCH ×2 (08:29→20:08)
[2016-06-20] MEDS: FERROUS SULFATE 60 MG/ML 5ML CUP GTB SCH ×2 (08:29→20:08)
[2016-06-20] MEDS: ASPIRIN 81 MG TAB PO SCH (08:29)
[2016-06-20] MEDS: BENAZEPRIL 5 MG TAB GTB SCH (08:30)
[2016-06-20] MEDS: L ACIDOPHIL/B LACTIS/B LONGUM CAPSULE PEG SCH ×3 (08:30→20:08)
[2016-06-20] MEDS: MULTIVITAMINS/MINERALS TAB GTB SCH (08:30)
[2016-06-20] MEDS: CALCIUM CARBONATE 1.25 GM TAB GTB SCH (08:30)
[2016-06-20] MEDS: QUETIAPINE 25 MG TAB GTB SCH ×2 (08:30→20:08)
[2016-06-20] MEDS: THIAMINE 100 MG TAB GTB SCH (08:30)
[2016-06-20] MEDS: ASCORBIC ACID 500 MG TAB GTB SCH (08:30)
[2016-06-20] MEDS: COLLAGENASE 30 GM TUBE TOP SCH (08:31)
--- NOTE | 2016-06-20 11:28 | PN ---
Date/Time of Note Date/Time of Note DATE: 06/20/16 TIME: 11:27 Assessment/Plan VTE Prophylaxis VTE Prophylaxis Intervention: other Lines/Catheters IV Catheter Type (from [facility]): [place] Urinary Cath still in place: No Assessment/Plan Chief Complaint/Hosp Course 1. G-tube dislodgement. G-tube in ring inserted by Dr. Marcus, gastroenterology consultation. 2. Possible G-tube cellulitis. We will start patient on broad spectrum antibiotics. 3. Ventilator dependent respiratory failure. Dr. Matthews isfollowing the patient in operating engineer apprentice consultation. 4. Anemia of chronic inflammation. Continue to monitor hemoglobin and hematocrit. 5. Hypertension. Continue to monitor blood pressure. 6. Schizoaffective disorder. 7. Bedbound status. Problems: Subjective 24 Hr Interval Summary Free Text/Dictation Patient remains on vent via trach Exam/Review of Systems Vital Signs Vitals Vital Signs Date Time Temp Pulse Resp B/P Pulse Ox O2 Delivery O2 Flow Rate FiO2 06/20/16 09:43 95 14 100 100 06/20/16 07:42 97.3 120/76 06/20/16 06:24 Mechanical Ventilator Intake and Output 06/19/16 06/19/16 06/20/16 15:00 23:00 07:00 Intake Total 1280 ml 900 ml 800 ml Output Total 400 ml Balance 1280 ml 900 ml 400 ml Exam Constitutional: well developed Head: atraumatic, normocephalic Neck: supple Respiratory: diminished breath sounds Cardiovascular: regular rate and rhythm Gastrointestinal: non-tender, soft Extremities: normal pulses Results Result Diagram: 06/19/16 1024 06/19/16 1024 Results 24 hrs Laboratory Tests Test 06/19/16 23:46 Blood Gas Specimen Source Blood arterial Arterial Blood Date Drawn 06/20/2016 12:00:10 AM Arterial Blood pH (Temp corrected) 7.388 Arterial Blood pCO2 (Temp correct) 51.5 H Arterial Blood pO2 (Temp corrected) 61.0 L Arterial Blood HCO3 30.3 H Arterial Blood Base Excess 4.6 H Arterial Blood Oxygen Saturation 90.2 L Vishal Test ACCEPTAB Arterial Blood Gas Puncture Site Left Radial Arterial Blood Carboxyhemoglobin 0.3 Arterial Blood Methemoglobin 0.3 Blood Gas A-a O2 Differential 600.5 H Oxyhemoglobin Percent 89.7 L Total Hemoglobin 9.6 L Blood Gas Temperature 37.0 Blood Gas Respiration Rate 12.0 Blood Gas Actual Respiration Rate 20 Blood Gas Modality VENT - AC FiO2 100.0 Blood Gas Tidal Volume 450.0 Blood Gas Low PEEP Setting 5.0 Blood Gas Notified Whom LW Blood Gas Notified Time 06/20/2016 12:08:01 AM Medications Medications Current Medications Potassium Chloride/Dextrose/ Sod Cl (D5-1/2ns + KCl 20 Meq) 1,000 ml @ 40 mls/ hr Q24H IV Last administered on 06/19/16 16:44; Admin Dose 40 MLS/HR; Start at 12:04 Lorazepam (Ativan) 0.5 mg Q6H PRN IV ANXIETY Last administered on 06/20/16 03: 02; Admin Dose 0.5 MG; Start 06/16/16 at 12:30 Ondansetron HCl (Zofran Inj) 4 mg Q6H PRN IV NAUSEA AND/OR VOMITING; Start at 12:30 Morphine Sulfate (morphine) 2 mg Q4H PRN IV PAIN LEVEL 7-10 Last administered on 06/19/16 23:56; Admin Dose 2 MG; Start 06/16/16 at 12:30 Pantoprazole (Protonix Iv) 40 mg DAILY@06 IV Last administered on 06/20/16 05: 17; Admin Dose 40 MG; Start 06/17/16 at 06:00 Acetaminophen (Tylenol Liquid) 650 mg Q6H PRN GTB FEVER >101 Last administered on 06/19/16 16:44; Admin Dose 650 MG; Start 06/16/16 at 13:00 Ascorbic Acid (Vitamin C) 500 mg DAILY GTB Last administered on 06/20/16 08:30 ; Admin Dose 500 MG; Start 06/17/16 at 09:00 Aspirin (Aspirin) 81 mg DAILY PO Last administered on 06/20/16 08:29; Admin Dose 81 MG; Start 06/17/16 at 09:00 Benazepril HCl (Lotensin) 5 mg DAILY GTB Last administered on 06/20/16 08:30; Admin Dose 5 MG; Start 06/17/16 at 09:00 Bisacodyl (Dulcolax) 10 mg DAILY PRN PO CONSTIPATION Last administered on 08:55; Admin Dose 10 MG; Start 06/16/16 at 13:00 Chlorhexidine Gluconate (Peridex) 15 ml BID MM Last administered on 06/20/16 08:29; Admin Dose 15 ML; Start 06/16/16 at 21:00 Famotidine (Pepcid) 20 mg BID GTB Last administered on 06/18/16 21:52; Admin Dose 20 MG; Start 06/16/16 at 21:00; Status Future Hold Ferrous Sulfate (Feosol Liquid Cup) 300 mg BID GTB Last administered on 08:29; Admin Dose 300 MG; Start 06/16/16 at 21:00 Acetaminophen/ Hydrocodone Bitart ([place] (5/325)) 1 tab Q4H PRN GTB PAIN LEVEL 6-10; Start 06/16/16 at 13:00 Lorazepam (Ativan) 0.5 mg Q6 PRN GTB ANXIETY Last administered on 06/19/16 20: 09; Admin Dose 0.5 MG; Start 06/16/16 at 13:00 Quetiapine Fumarate (Seroquel) 25 mg BID GTB Last administered on 06/20/16 08: 30; Admin Dose 25 MG; Start 06/16/16 at 21:00 Quetiapine Fumarate (Seroquel) 200 mg HS GTB Last administered on 06/19/16 20: 10; Admin Dose 200 MG; Start 06/16/16 at 21:00 Senna (Senokot) 1 tab QHS GTB Last administered on 06/19/16 20:10; Admin Dose 1 TAB; Start 06/16/16 at 21:00 Thiamine HCl (Vitamin B1) 100 mg DAILY GTB Last administered on 06/20/16 08:30 ; Admin Dose 100 MG; Start 06/17/16 at 09:00 Calcium Carbonate (Oyster Shell Calcium) 1.25 gm DAILY GTB Last administered on 06/20/16 08:30; Admin Dose 1.25 GM; Start 06/17/16 at 09:00 Multivitamins/ Minerals (Theragran-M) 1 tab DAILY GTB Last administered on 06/20 08:30; Admin Dose 1 TAB; Start 06/17/16 at 09:00 Clonidine (Catapres) 0.1 mg Q6H PRN GTB SBP>160 Last administered on 06/19/16 20:10; Admin Dose 0.1 MG; Start 06/17/16 at 08:00 Collagenase (Santyl) 1 applic DAILY TOP Last administered on 06/20/16 08:31; Admin Dose 1 APPLIC; Start 06/17/16 at 09:00 Collagenase (Santyl) 1 applic DAILY PRN TOP WOUND CARE; Start 06/17/16 at 09:00 Lactobacillus Acidophilus (Florajen3 Capsule) 1 each TID PEG Last administered on 06/20/16 08:30; Admin Dose 1 EACH; Start 06/17/16 at 13:30 NEELAM RIBERA Jun 20, 2016 11:28
[2016-06-20] MEDS: ACETAMINOPHEN 650MG/20.3ML CUP GTB PRN (12:09)
--- NOTE | 2016-06-20 12:48 | CONS ---
Date/Time of Note Date/Time of Note DATE: 06/20/16 TIME: 12:46 Consultation Date/Type/Reason Admit Date/Time Jun 17, 2016 at 15:42 Initial Consult Date 06/16/16 Type of Consultation: Pulmonary/critical care 24 HR Interval Summary Free Text/Dictation Patient condition remains stable. Has remained hemodynamically stable. General exam; elderly male, on ventilator via tracheostomy currently in no distress. HEENT exam is; supple neck, no JVD. No lymphadenopathy. Midline trachea. Tracheostomy in place. Chest examination; clear to auscultation. S1-S2 audible, no murmurs. Abdomen exam is; soft, G-tube in place. No distended abdomen. Bowel sounds audible. Extremity exam is; no peripheral edema. 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 Ventilator settings; AC of 12, tidal volume 450, PEEP of 5, 50% FiO2. Medications are reviewed. Assessment recommendations; 1. Patient admitted for G-tube replacement. 2. Respiratory failure. 3. Alcoholic encephalopathy. 4. History of recent pneumonia. 5. Systolic dysfunction. Continue current treatment. Patient awaiting transfer to [facility]. Exam/Review of Systems Vital Signs Vitals Vital Signs Date Time Temp Pulse Resp B/P Pulse Ox O2 Delivery O2 Flow Rate FiO2 06/20/16 12:33 92 06/20/16 12:01 98.6 20 134/64 100 06/20/16 11:40 50 06/20/16 06:24 Mechanical Ventilator Intake and Output 06/19/16 06/19/16 06/20/16 15:00 23:00 07:00 Intake Total 1280 ml 900 ml 800 ml Output Total 400 ml Balance 1280 ml 900 ml 400 ml Results Result Diagram: 06/19/16 1024 06/19/16 1024 Results 24 hrs Laboratory Tests Test 06/19/16 23:46 Blood Gas Specimen Source Blood arterial Arterial Blood Date Drawn 06/20/2016 12:00:10 AM Arterial Blood pH (Temp corrected) 7.388 Arterial Blood pCO2 (Temp correct) 51.5 H Arterial Blood pO2 (Temp corrected) 61.0 L Arterial Blood HCO3 30.3 H Arterial Blood Base Excess 4.6 H Arterial Blood Oxygen Saturation 90.2 L Vishal Test ACCEPTAB Arterial Blood Gas Puncture Site Left Radial Arterial Blood Carboxyhemoglobin 0.3 Arterial Blood Methemoglobin 0.3 Blood Gas A-a O2 Differential 600.5 H Oxyhemoglobin Percent 89.7 L Total Hemoglobin 9.6 L Blood Gas Temperature 37.0 Blood Gas Respiration Rate 12.0 Blood Gas Actual Respiration Rate 20 Blood Gas Modality VENT - AC FiO2 100.0 Blood Gas Tidal Volume 450.0 Blood Gas Low PEEP Setting 5.0 Blood Gas Notified Whom LW Blood Gas Notified Time 06/20/2016 12:08:01 AM Medications Medications Current Medications Potassium Chloride/Dextrose/ Sod Cl (D5-1/2ns + KCl 20 Meq) 1,000 ml @ 40 mls/ hr Q24H IV Last administered on 06/19/16 16:44; Admin Dose 40 MLS/HR; Start at 12:04 Lorazepam (Ativan) 0.5 mg Q6H PRN IV ANXIETY Last administered on 06/20/16 12: 10; Admin Dose 0.5 MG; Start 06/16/16 at 12:30 Ondansetron HCl (Zofran Inj) 4 mg Q6H PRN IV NAUSEA AND/OR VOMITING; Start at 12:30 Morphine Sulfate (morphine) 2 mg Q4H PRN IV PAIN LEVEL 7-10 Last administered on 06/19/16 23:56; Admin Dose 2 MG; Start 06/16/16 at 12:30 Pantoprazole (Protonix Iv) 40 mg DAILY@06 IV Last administered on 06/20/16 05: 17; Admin Dose 40 MG; Start 06/17/16 at 06:00 Acetaminophen (Tylenol Liquid) 650 mg Q6H PRN GTB FEVER >101 Last administered on 06/20/16 12:09; Admin Dose 650 MG; Start 06/16/16 at 13:00 Ascorbic Acid (Vitamin C) 500 mg DAILY GTB Last administered on 06/20/16 08:30 ; Admin Dose 500 MG; Start 06/17/16 at 09:00 Aspirin (Aspirin) 81 mg DAILY PO Last administered on 06/20/16 08:29; Admin Dose 81 MG; Start 06/17/16 at 09:00 Benazepril HCl (Lotensin) 5 mg DAILY GTB Last administered on 06/20/16 08:30; Admin Dose 5 MG; Start 06/17/16 at 09:00 Bisacodyl (Dulcolax) 10 mg DAILY PRN PO CONSTIPATION Last administered on 08:55; Admin Dose 10 MG; Start 06/16/16 at 13:00 Chlorhexidine Gluconate (Peridex) 15 ml BID MM Last administered on 06/20/16 08:29; Admin Dose 15 ML; Start 06/16/16 at 21:00 Famotidine (Pepcid) 20 mg BID GTB Last administered on 06/18/16 21:52; Admin Dose 20 MG; Start 06/16/16 at 21:00; Status Future Hold Ferrous Sulfate (Feosol Liquid Cup) 300 mg BID GTB Last administered on 08:29; Admin Dose 300 MG; Start 06/16/16 at 21:00 Acetaminophen/ Hydrocodone Bitart ([place] (5/325)) 1 tab Q4H PRN GTB PAIN LEVEL 6-10; Start 06/16/16 at 13:00 Lorazepam (Ativan) 0.5 mg Q6 PRN GTB ANXIETY Last administered on 06/19/16 20: 09; Admin Dose 0.5 MG; Start 06/16/16 at 13:00 Quetiapine Fumarate (Seroquel) 25 mg BID GTB Last administered on 06/20/16 08: 30; Admin Dose 25 MG; Start 06/16/16 at 21:00 Quetiapine Fumarate (Seroquel) 200 mg HS GTB Last administered on 06/19/16 20: 10; Admin Dose 200 MG; Start 06/16/16 at 21:00 Senna (Senokot) 1 tab QHS GTB Last administered on 06/19/16 20:10; Admin Dose 1 TAB; Start 06/16/16 at 21:00 Thiamine HCl (Vitamin B1) 100 mg DAILY GTB Last administered on 06/20/16 08:30 ; Admin Dose 100 MG; Start 06/17/16 at 09:00 Calcium Carbonate (Oyster Shell Calcium) 1.25 gm DAILY GTB Last administered on 06/20/16 08:30; Admin Dose 1.25 GM; Start 06/17/16 at 09:00 Multivitamins/ Minerals (Theragran-M) 1 tab DAILY GTB Last administered on 06/20 08:30; Admin Dose 1 TAB; Start 06/17/16 at 09:00 Clonidine (Catapres) 0.1 mg Q6H PRN GTB SBP>160 Last administered on 06/19/16 20:10; Admin Dose 0.1 MG; Start 06/17/16 at 08:00 Collagenase (Santyl) 1 applic DAILY TOP Last administered on 06/20/16 08:31; Admin Dose 1 APPLIC; Start 06/17/16 at 09:00 Collagenase (Santyl) 1 applic DAILY PRN TOP WOUND CARE; Start 06/17/16 at 09:00 Lactobacillus Acidophilus (Florajen3 Capsule) 1 each TID PEG Last administered on 06/20/16 12:09; Admin Dose 1 EACH; Start 06/17/16 at 13:30 KATHERYN LAWTON Jun 20, 2016 12:48
[2016-06-20] MEDS: D5W-0.45 NACL + KCL 20 MEQ 1,000 ML IV SCH (16:49)
[2016-06-20] MEDS: morphine 2 MG INJ IV PRN (17:50)
[2016-06-20] MEDS: SENNA TAB GTB SCH (20:08)
[2016-06-20] MEDS: QUETIAPINE 100 MG TAB GTB SCH (20:08)
[2016-06-21] VITALS (27 sets, daily range): BP systolic 95–141; BP diastolic 59–93; PULSE 68–92; RESP 14–31
[2016-06-21] MEDS: LORAZEPAM 2 MG INJ IV PRN ×2 (04:40→15:48)
[2016-06-21] MEDS: PANTOPRAZOLE 40 MG INJ IV SCH (05:26)
[2016-06-21 06:07] LABS: ADD SCAN DIFF NO
[2016-06-21 06:19] LABS: BASOPHILS % 0.1 % (0.0-2.0); EOSINOPHILS # 0.1 10^3/ul (0.0-0.5); EOSINOPHILS % 1.4 % (0.0-7.0); HEMOGLOBIN 8.2 g/dl (14.0-18.0); LYMPHOCYTES # 0.8 10^3/ul (0.8-2.9); LYMPHOCYTES % 11.3 % (15.0-51.0); MEAN CORPUSCULAR HEMOGLOBIN 28.4 pg (29.0-33.0); MEAN CORPUSCULAR HGB CONC 31.5 g/dl (32.0-37.0); MEAN PLATELET VOLUME 11.7 fl (7.4-10.4); MONOCYTE # 0.6 10^3/ul (0.3-0.9); MONOCYTES % 7.8 % (0.0-11.0); NEUTROPHIL # 5.8 10^3/ul (1.6-7.5); NEUTROPHILS % 79.1 % (39.0-77.0); PLATELET COUNT 181 10^3/UL (140-415); RED BLOOD COUNT 2.89 10^6/ul (4.70-6.10); RED CELL DISTRIBUTION WIDTH 17.3 % (11.5-14.5); WHITE BLOOD COUNT 7.3 10^3/ul (4.8-10.8)
[2016-06-21 06:31] LABS: POTASSIUM 4.3 mmol/L (3.5-5.1)
[2016-06-21 06:34] LABS: CREATININE 0.43 mg/dl (0.61-1.24)
[2016-06-21 06:35] LABS: CALCIUM 8.2 mg/dl (8.4-10.2)
[2016-06-21] MEDS: BENAZEPRIL 5 MG TAB GTB SCH (09:29)
[2016-06-21] MEDS: CHLORHEXIDINE GLUCONATE 15 ML UD CUP MM SCH ×2 (09:29→20:53)
[2016-06-21] MEDS: FERROUS SULFATE 60 MG/ML 5ML CUP GTB SCH ×2 (09:29→20:53)
[2016-06-21] MEDS: ASPIRIN 81 MG TAB PO SCH (09:30)
[2016-06-21] MEDS: QUETIAPINE 25 MG TAB GTB SCH ×2 (09:30→20:53)
[2016-06-21] MEDS: THIAMINE 100 MG TAB GTB SCH (09:30)
[2016-06-21] MEDS: L ACIDOPHIL/B LACTIS/B LONGUM CAPSULE PEG SCH ×3 (09:30→20:53)
[2016-06-21] MEDS: ASCORBIC ACID 500 MG TAB GTB SCH (09:30)
[2016-06-21] MEDS: CALCIUM CARBONATE 1.25 GM TAB GTB SCH (09:30)
[2016-06-21] MEDS: MULTIVITAMINS/MINERALS TAB GTB SCH (09:30)
[2016-06-21] MEDS: COLLAGENASE 30 GM TUBE TOP SCH (09:33)
--- NOTE | 2016-06-21 11:43 | CONS ---
Date/Time of Note Date/Time of Note DATE: 06/21/16 TIME: 11:43 Consultation Date/Type/Reason Admit Date/Time Jun 17, 2016 at 15:42 Initial Consult Date 06/16/16 Type of Consultation: Pulmonary/critical care 24 HR Interval Summary Free Text/Dictation dictated Exam/Review of Systems Vital Signs Vitals Vital Signs Date Time Temp Pulse Resp B/P Pulse Ox O2 Delivery O2 Flow Rate FiO2 06/21/16 11:35 98.8 79 20 95/59 97 06/21/16 11:30 50 06/21/16 10:00 Mechanical Ventilator Intake and Output 06/20/16 06/20/16 06/21/16 15:00 23:00 07:00 Intake Total 1340 ml 750 ml Output Total 1500 ml 900 ml Balance -160 ml -150 ml Results Result Diagram: 06/21/16 0540 06/21/16 0540 Results 24 hrs Laboratory Tests Test 06/21/16 05:40 White Blood Count 7.3 # Red Blood Count 2.89 L Hemoglobin 8.2 L Hematocrit 26.0 L Mean Corpuscular Volume 90.0 Mean Corpuscular Hemoglobin 28.4 L Mean Corpuscular Hemoglobin Concent 31.5 L Red Cell Distribution Width 17.3 H Platelet Count 181 Mean Platelet Volume 11.7 H Neutrophils % 79.1 H Lymphocytes % 11.3 L Monocytes % 7.8 Eosinophils % 1.4 Basophils % 0.1 Nucleated Red Blood Cells % 0.0 Neutrophils # 5.8 Lymphocytes # 0.8 Monocytes # 0.6 Eosinophils # 0.1 Basophils # 0.0 Nucleated Red Blood Cells # 0.0 Sodium Level 133 L Potassium Level 4.3 Chloride Level 96 L Carbon Dioxide Level 31 Anion Gap 10 Blood Urea Nitrogen 15 Creatinine 0.43 L Glucose Level 79 Calcium Level 8.2 L Medications Medications Current Medications Potassium Chloride/Dextrose/ Sod Cl (D5-1/2ns + KCl 20 Meq) 1,000 ml @ 40 mls/ hr Q24H IV Last administered on 06/20/16 16:49; Admin Dose 40 MLS/HR; Start at 12:04 Lorazepam (Ativan) 0.5 mg Q6H PRN IV ANXIETY Last administered on 06/21/16 04: 40; Admin Dose 0.5 MG; Start 06/16/16 at 12:30 Ondansetron HCl (Zofran Inj) 4 mg Q6H PRN IV NAUSEA AND/OR VOMITING; Start at 12:30 Morphine Sulfate (morphine) 2 mg Q4H PRN IV PAIN LEVEL 7-10 Last administered on 06/20/16 17:50; Admin Dose 2 MG; Start 06/16/16 at 12:30 Pantoprazole (Protonix Iv) 40 mg DAILY@06 IV Last administered on 06/21/16 05: 26; Admin Dose 40 MG; Start 06/17/16 at 06:00 Acetaminophen (Tylenol Liquid) 650 mg Q6H PRN GTB FEVER >101 Last administered on 06/20/16 12:09; Admin Dose 650 MG; Start 06/16/16 at 13:00 Ascorbic Acid (Vitamin C) 500 mg DAILY GTB Last administered on 06/21/16 09:30 ; Admin Dose 500 MG; Start 06/17/16 at 09:00 Aspirin (Aspirin) 81 mg DAILY PO Last administered on 06/21/16 09:30; Admin Dose 81 MG; Start 06/17/16 at 09:00 Benazepril HCl (Lotensin) 5 mg DAILY GTB Last administered on 06/21/16 09:29; Admin Dose 5 MG; Start 06/17/16 at 09:00 Bisacodyl (Dulcolax) 10 mg DAILY PRN PO CONSTIPATION Last administered on 08:55; Admin Dose 10 MG; Start 06/16/16 at 13:00 Chlorhexidine Gluconate (Peridex) 15 ml BID MM Last administered on 06/21/16 09 :29; Admin Dose 15 ML; Start 06/16/16 at 21:00 Famotidine (Pepcid) 20 mg BID GTB Last administered on 06/18/16 21:52; Admin Dose 20 MG; Start 06/16/16 at 21:00; Status Future Hold Ferrous Sulfate (Feosol Liquid Cup) 300 mg BID GTB Last administered on 09:29; Admin Dose 300 MG; Start 06/16/16 at 21:00 Acetaminophen/ Hydrocodone Bitart ([place] (5/325)) 1 tab Q4H PRN GTB PAIN LEVEL 6-10; Start 06/16/16 at 13:00 Lorazepam (Ativan) 0.5 mg Q6 PRN GTB ANXIETY Last administered on 06/19/16 20: 09; Admin Dose 0.5 MG; Start 06/16/16 at 13:00 Quetiapine Fumarate (Seroquel) 25 mg BID GTB Last administered on 06/21/16 09: 30; Admin Dose 25 MG; Start 06/16/16 at 21:00 Quetiapine Fumarate (Seroquel) 200 mg HS GTB Last administered on 06/20/16 20: 08; Admin Dose 200 MG; Start 06/16/16 at 21:00 Senna (Senokot) 1 tab QHS GTB Last administered on 06/20/16 20:08; Admin Dose 1 TAB; Start 06/16/16 at 21:00 Thiamine HCl (Vitamin B1) 100 mg DAILY GTB Last administered on 06/21/16 09:30 ; Admin Dose 100 MG; Start 06/17/16 at 09:00 Calcium Carbonate (Oyster Shell Calcium) 1.25 gm DAILY GTB Last administered on 06/21/16 09:30; Admin Dose 1.25 GM; Start 06/17/16 at 09:00 Multivitamins/ Minerals (Theragran-M) 1 tab DAILY GTB Last administered on 09:30; Admin Dose 1 TAB; Start 06/17/16 at 09:00 Clonidine (Catapres) 0.1 mg Q6H PRN GTB SBP>160 Last administered on 06/19/16 20:10; Admin Dose 0.1 MG; Start 06/17/16 at 08:00 Collagenase (Santyl) 1 applic DAILY TOP Last administered on 06/21/16 09:33; Admin Dose 1 APPLIC; Start 06/17/16 at 09:00 Collagenase (Santyl) 1 applic DAILY PRN TOP WOUND CARE; Start 06/17/16 at 09:00 Lactobacillus Acidophilus (Florajen3 Capsule) 1 each TID PEG Last administered on 06/21/16 09:30; Admin Dose 1 EACH; Start 06/17/16 at 13:30 KATHERYN LAWTON June 21, 2016 11:43
--- NOTE | 2016-06-21 14:56 | PN ---
DATE: 06/21/2016 PULMONARY PROGRESS NOTE SUBJECTIVE: Mr. Ford' condition is stable. The patient remains awake, but remains confused off an d on due to alcoholic encephalopathy. PHYSICAL EXAMINATION: GENERAL: Elderly male, on ventilator via tracheostomy, currently in no distress, awake and alert. VITAL SIGNS: Temperature is 97.9 degrees Fahrenheit, heart rate of 78 per minute, blood pressure is 95/58, respiratory rate is 18 to 20 per minute, O2 sat 97% on current ventilator settings which are AC of 12, tidal volume 450, PEEP of 5, 50% FIO2. HEENT AND NECK: Supple neck, no JVD, no lymphadenopathy, midline trachea, no thyromegaly. Tracheos neil in place with clean insertion site. Patient's upper jaw is edentulous. Pupils are mid size, r eactive to light. CHEST: Clear to auscultation. HEART: S1, S2 audible, no murmurs, regular rhythm. ABDOMEN: Soft. G-tube in place, scaphoid. No organomegaly. Bowel sounds audible, nontender. EXTREMITIES: No peripheral edema. CENTRAL NERVOUS SYSTEM: The patient is stable, paraplegia. LABORATORY DATA: Yesterday white count is 7.3, hemoglobin 8.2, platelet count of 181. Sodium 133, potassium 4.3, chloride 96, bicarbonate 31, glucose of 79, BUN 15, creatinine 0.4. MEDICATIONS: Reviewed. The patient is off antibiotics. ASSESSMENT AND PLAN: 1. The patient admitted for G-tube dislodgement with subsequent replacement. 2. Chronic respiratory failure due to COPD or hypoventilation. The patient remains ventilator-depe ndent. 3. History of alcoholic encephalopathy. 4. Systolic dysfunction. 5. Recent admission for severe pneumonia with marked radiological improvement. RECOMMENDATIONS: Continue current treatment. The patient can be transferred to shelter. Prog nosis remains guarded. Dictated By: KATHERYN HUGHES/DAVID Conf#: [id number] DID#: [id number]
[2016-06-21] MEDS: D5W-0.45 NACL + KCL 20 MEQ 1,000 ML IV SCH ×2 (16:34→23:40)
--- NOTE | 2016-06-21 19:07 | PN ---
Date/Time of Note Date/Time of Note DATE: 06/21/16 TIME: 19:06 Assessment/Plan VTE Prophylaxis VTE Prophylaxis Intervention: SCD's Lines/Catheters IV C[facility]ter Type (from [facility]): Peripheral IV Urinary Cath still in place: No Assessment/Plan Chief Complaint/Hosp Course ASSESSMENT AND PLAN: 1. G-tube dislodgement. G-tube reinserted by Dr. Marcus, gastroenterology consultation. 2. Possible G-tube cellulitis. We will start patient on broad spectrum antibiotics. 3. Ventilator dependent respiratory failure. Dr. Matthews isfollowing the patient in jigsawyer consultation. 4. Anemia of chronic inflammation. Continue to monitor hemoglobin and hematocrit. 5. Hypertension. Continue to monitor blood pressure. 6. Schizoaffective disorder. 7. Bedbound status. DC planning Continue sequential compression device for deep venous thrombosis prophylaxis and Protonix for peptic ulcer disease prophylaxis. Further recommendations based on clinical course. Plan of care discussed with Dr. [place]. Problems: Subjective 24 Hr Interval Summary Free Text/Dictation Patient tolerates G-tube feeding well, no acute events. Exam/Review of Systems Vital Signs Vitals Vital Signs Date Time Temp Pulse Resp B/P Pulse Ox O2 Delivery O2 Flow Rate FiO2 06/21/16 18:19 85 22 96 50 06/21/16 15:11 98.4 119/71 06/21/16 10:00 Mechanical Ventilator Intake and Output 06/20/16 06/20/16 06/21/16 15:00 23:00 07:00 Intake Total 1340 ml 750 ml Output Total 1500 ml 900 ml Balance -160 ml -150 ml Exam GENERAL: Well-developed, cachectic gentleman currently is awake, alert, on ventilatory support. HEENT: Head is atraumatic, normocephalic. PERRLA. NECK: Supple. CHEST: Patient has a tracheostomy site with no bleeding, moderate amount of secretions. LUNGS: Scattered rhonchi bilaterally, diminished at the bases. CARDIOVASCULAR: Normal S1, S2. No murmurs, gallops, clicks, rubs noted. ABDOMEN: Flat, soft, nondistended, nontender. Bowel sounds present. GT. EXTREMITIES: Bilateral lower extremities contracted. Pulses equal bilaterally 2+. SKIN: There is no rash, petechiae noted. NEUROLOGIC: Patient is awake, alert and oriented to name, otherwise, confused. Results Result Diagram: 5/1/17 0540 06/21/16 0540 Results 24 hrs Laboratory Tests Test 06/21/16 05:40 White Blood Count 7.3 # Red Blood Count 2.89 L Hemoglobin 8.2 L Hematocrit 26.0 L Mean Corpuscular Volume 90.0 Mean Corpuscular Hemoglobin 28.4 L Mean Corpuscular Hemoglobin Concent 31.5 L Red Cell Distribution Width 17.3 H Platelet Count 181 Mean Platelet Volume 11.7 H Neutrophils % 79.1 H Lymphocytes % 11.3 L Monocytes % 7.8 Eosinophils % 1.4 Basophils % 0.1 Nucleated Red Blood Cells % 0.0 Neutrophils # 5.8 Lymphocytes # 0.8 Monocytes # 0.6 Eosinophils # 0.1 Basophils # 0.0 Nucleated Red Blood Cells # 0.0 Sodium Level 133 L Potassium Level 4.3 Chloride Level 96 L Carbon Dioxide Level 31 Anion Gap 10 Blood Urea Nitrogen 15 Creatinine 0.43 L Glucose Level 79 Calcium Level 8.2 L Medications Medications Current Medications Potassium Chloride/Dextrose/ Sod Cl (D5-1/2ns + KCl 20 Meq) 1,000 ml @ 40 mls/ hr Q24H IV Last administered on 06/20/16 16:49; Admin Dose 40 MLS/HR; Start at 12:04 Lorazepam (Ativan) 0.5 mg Q6H PRN IV ANXIETY Last administered on 06/21/16 15: 48; Admin Dose 0.5 MG; Start 06/16/16 at 12:30 Ondansetron HCl (Zofran Inj) 4 mg Q6H PRN IV NAUSEA AND/OR VOMITING; Start at 12:30 Morphine Sulfate (morphine) 2 mg Q4H PRN IV PAIN LEVEL 7-10 Last administered on 06/20/16 17:50; Admin Dose 2 MG; Start 06/16/16 at 12:30 Pantoprazole (Protonix Iv) 40 mg DAILY@06 IV Last administered on 06/21/16 05: 26; Admin Dose 40 MG; Start 06/17/16 at 06:00 Acetaminophen (Tylenol Liquid) 650 mg Q6H PRN GTB FEVER >101 Last administered on 06/20/16 12:09; Admin Dose 650 MG; Start 06/16/16 at 13:00 Ascorbic Acid (Vitamin C) 500 mg DAILY GTB Last administered on 06/21/16 09:30 ; Admin Dose 500 MG; Start 06/17/16 at 09:00 Aspirin (Aspirin) 81 mg DAILY PO Last administered on 06/21/16 09:30; Admin Dose 81 MG; Start 06/17/16 at 09:00 Benazepril HCl (Lotensin) 5 mg DAILY GTB Last administered on 06/21/16 09:29; Admin Dose 5 MG; Start 06/17/16 at 09:00 Bisacodyl (Dulcolax) 10 mg DAILY PRN PO CONSTIPATION Last administered on 08:55; Admin Dose 10 MG; Start 06/16/16 at 13:00 Chlorhexidine Gluconate (Peridex) 15 ml BID MM Last administered on 06/21/16 09 :29; Admin Dose 15 ML; Start 06/16/16 at 21:00 Famotidine (Pepcid) 20 mg BID GTB Last administered on 06/18/16 21:52; Admin Dose 20 MG; Start 06/16/16 at 21:00; Status Future Hold Ferrous Sulfate (Feosol Liquid Cup) 300 mg BID GTB Last administered on 09:29; Admin Dose 300 MG; Start 06/16/16 at 21:00 Acetaminophen/ Hydrocodone Bitart ([place] (5/325)) 1 tab Q4H PRN GTB PAIN LEVEL 6-10; Start 06/16/16 at 13:00 Lorazepam (Ativan) 0.5 mg Q6 PRN GTB ANXIETY Last administered on 06/19/16 20: 09; Admin Dose 0.5 MG; Start 06/16/16 at 13:00 Quetiapine Fumarate (Seroquel) 25 mg BID GTB Last administered on 06/21/16 09: 30; Admin Dose 25 MG; Start 06/16/16 at 21:00 Quetiapine Fumarate (Seroquel) 200 mg HS GTB Last administered on 06/20/16 20: 08; Admin Dose 200 MG; Start 06/16/16 at 21:00 Senna (Senokot) 1 tab QHS GTB Last administered on 06/20/16 20:08; Admin Dose 1 TAB; Start 06/16/16 at 21:00 Thiamine HCl (Vitamin B1) 100 mg DAILY GTB Last administered on 06/21/16 09:30 ; Admin Dose 100 MG; Start 06/17/16 at 09:00 Calcium Carbonate (Oyster Shell Calcium) 1.25 gm DAILY GTB Last administered on 06/21/16 09:30; Admin Dose 1.25 GM; Start 06/17/16 at 09:00 Multivitamins/ Minerals (Theragran-M) 1 tab DAILY GTB Last administered on 09:30; Admin Dose 1 TAB; Start 06/17/16 at 09:00 Clonidine (Catapres) 0.1 mg Q6H PRN GTB SBP>160 Last administered on 06/19/16 20:10; Admin Dose 0.1 MG; Start 06/17/16 at 08:00 Collagenase (Santyl) 1 applic DAILY TOP Last administered on 06/21/16 09:33; Admin Dose 1 APPLIC; Start 06/17/16 at 09:00 Collagenase (Santyl) 1 applic DAILY PRN TOP WOUND CARE; Start 06/17/16 at 09:00 Lactobacillus Acidophilus (Florajen3 Capsule) 1 each TID PEG Last administered on 06/21/16 13:30; Admin Dose 1 EACH; Start 06/17/16 at 13:30 SHELBY BUNCH June 21, 2016 19:07
[2016-06-21] MEDS: SENNA TAB GTB SCH (20:53)
[2016-06-21] MEDS: QUETIAPINE 100 MG TAB GTB SCH (20:53)
[2016-06-22] VITALS (15 sets, daily range): BP systolic 107–131; BP diastolic 59–65; PULSE 104–110; RESP 13–32
[2016-06-22] MEDS: morphine 2 MG INJ IV PRN (02:38)
[2016-06-22] MEDS: PANTOPRAZOLE 40 MG INJ IV SCH (05:15)
[2016-06-22] MEDS: FERROUS SULFATE 60 MG/ML 5ML CUP GTB SCH (09:56)
[2016-06-22] MEDS: CHLORHEXIDINE GLUCONATE 15 ML UD CUP MM SCH (09:56)
[2016-06-22] MEDS: THIAMINE 100 MG TAB GTB SCH (09:57)
[2016-06-22] MEDS: CALCIUM CARBONATE 1.25 GM TAB GTB SCH (09:57)
[2016-06-22] MEDS: LORAZEPAM 0.5 MG TAB GTB PRN (09:57)
[2016-06-22] MEDS: BENAZEPRIL 5 MG TAB GTB SCH (10:02)
[2016-06-22] MEDS: ASCORBIC ACID 500 MG TAB GTB SCH (10:02)
[2016-06-22] MEDS: ASPIRIN 81 MG TAB PO SCH (10:03)
[2016-06-22] MEDS: MULTIVITAMINS/MINERALS TAB GTB SCH (10:03)
[2016-06-22] MEDS: QUETIAPINE 25 MG TAB GTB SCH (10:03)
[2016-06-22] MEDS: L ACIDOPHIL/B LACTIS/B LONGUM CAPSULE PEG SCH ×2 (10:03→13:57)
[2016-06-22] MEDS: COLLAGENASE 30 GM TUBE TOP SCH (10:03)
[2016-06-22] MEDS: ACETAMINOPHEN 650MG/20.3ML CUP GTB PRN (10:04)
--- NOTE | 2016-06-22 10:58 | CONS ---
Date/Time of Note Date/Time of Note DATE: 06/22/16 TIME: 10:56 Assessment/Plan Assessment/Plan Additional Assessment/Plan Ventilator settings; AC of 12, tidal volume 400, PEEP of 5, 50% FiO2. Assessment recommendations; 1. Patient admitted for G-tube displacement status post replacement. 2. Chronic respiratory failure. 3. Alcoholic encephalopathy. 4. Systolic dysfunction. 5. History of paraplegia. 6. History of recent severe bilateral pneumonia. Continue current treatment. Patient can be transferred to assisted. Consultation Date/Type/Reason Admit Date/Time Jun 17, 2016 at 15:42 Initial Consult Date 06/16/16 Type of Consultation: Pulmonary/critical care 24 HR Interval Summary Free Text/Dictation Patient condition stable. Remains awake and alert. Remains ventilator dependent. Exam; elderly male, on ventilator via tracheostomy currently in no distress. Exam/Review of Systems Vital Signs Vitals Vital Signs Date Time Temp Pulse Resp B/P Pulse Ox O2 Delivery O2 Flow Rate FiO2 06/22/16 09:35 100 18 98 50 06/22/16 08:11 100.0 117/65 06/21/16 10:00 Mechanical Ventilator Intake and Output 06/21/16 06/21/16 06/22/16 15:00 23:00 07:00 Intake Total 700 ml 860 ml Output Total 650 ml 800 ml Balance 50 ml 60 ml Exam HEENT exam is; supple neck, no JVD. No lymphadenopathy. Midline trachea. No thyromegaly. Patient upper jaw is edentulous. Tracheostomy placed with clean insertion site. Chest examination; clear to auscultation. S1-S2 audible, no murmurs. Regular rhythm. Abdomen examination; soft, G-tube in place. Bowel sounds audible. Nondistended. Extremity examination; no peripheral edema. [employer] examination; patient has stable paraplegia. Results Result Diagram: 06/21/16 0540 06/21/16 0540 Medications Medications Current Medications Potassium Chloride/Dextrose/ Sod Cl (D5-1/2ns + KCl 20 Meq) 1,000 ml @ 40 mls/ hr Q24H IV Last administered on 06/21/16 23:40; Admin Dose 40 MLS/HR; Start at 12:04 Lorazepam (Ativan) 0.5 mg Q6H PRN IV ANXIETY Last administered on 06/21/16 15: 48; Admin Dose 0.5 MG; Start 06/16/16 at 12:30 Ondansetron HCl (Zofran Inj) 4 mg Q6H PRN IV NAUSEA AND/OR VOMITING; Start at 12:30 Morphine Sulfate (morphine) 2 mg Q4H PRN IV PAIN LEVEL 7-10 Last administered on 06/22/16 02:38; Admin Dose 2 MG; Start 06/16/16 at 12:30 Pantoprazole (Protonix Iv) 40 mg DAILY@06 IV Last administered on 06/22/16 05: 15; Admin Dose 40 MG; Start 06/17/16 at 06:00 Acetaminophen (Tylenol Liquid) 650 mg Q6H PRN GTB FEVER >101 Last administered on 06/22/16 10:04; Admin Dose 650 MG; Start 06/16/16 at 13:00 Ascorbic Acid (Vitamin C) 500 mg DAILY GTB Last administered on 06/22/16 10:02 ; Admin Dose 500 MG; Start 06/17/16 at 09:00 Aspirin (Aspirin) 81 mg DAILY PO Last administered on 06/22/16 10:03; Admin Dose 81 MG; Start 06/17/16 at 09:00 Benazepril HCl (Lotensin) 5 mg DAILY GTB Last administered on 06/22/16 10:02; Admin Dose 5 MG; Start 06/17/16 at 09:00 Bisacodyl (Dulcolax) 10 mg DAILY PRN PO CONSTIPATION Last administered on 08:55; Admin Dose 10 MG; Start 06/16/16 at 13:00 Chlorhexidine Gluconate (Peridex) 15 ml BID MM Last administered on 06/22/16 09 :56; Admin Dose 15 ML; Start 06/16/16 at 21:00 Famotidine (Pepcid) 20 mg BID GTB Last administered on 06/18/16 21:52; Admin Dose 20 MG; Start 06/16/16 at 21:00; Status Future Hold Ferrous Sulfate (Feosol Liquid Cup) 300 mg BID GTB Last administered on 09:56; Admin Dose 300 MG; Start 06/16/16 at 21:00 Acetaminophen/ Hydrocodone Bitart (Anthony (5/325)) 1 tab Q4H PRN GTB PAIN LEVEL 6-10; Start 06/16/16 at 13:00 Lorazepam (Ativan) 0.5 mg Q6 PRN GTB ANXIETY Last administered on 06/22/16 09: 57; Admin Dose 0.5 MG; Start 06/16/16 at 13:00 Quetiapine Fumarate (Seroquel) 25 mg BID GTB Last administered on 06/22/16 10: 03; Admin Dose 25 MG; Start 06/16/16 at 21:00 Quetiapine Fumarate (Seroquel) 200 mg HS GTB Last administered on 06/21/16 20: 53; Admin Dose 200 MG; Start 06/16/16 at 21:00 Senna (Senokot) 1 tab QHS GTB Last administered on 06/21/16 20:53; Admin Dose 1 TAB; Start 06/16/16 at 21:00 Thiamine HCl (Vitamin B1) 100 mg DAILY GTB Last administered on 06/22/16 09:57 ; Admin Dose 100 MG; Start 06/17/16 at 09:00 Calcium Carbonate (Oyster Shell Calcium) 1.25 gm DAILY GTB Last administered on 06/22/16 09:57; Admin Dose 1.25 GM; Start 06/17/16 at 09:00 Multivitamins/ Minerals (Theragran-M) 1 tab DAILY GTB Last administered on 10:03; Admin Dose 1 TAB; Start 06/17/16 at 09:00 Clonidine (Catapres) 0.1 mg Q6H PRN GTB SBP>160 Last administered on 06/19/16 20:10; Admin Dose 0.1 MG; Start 06/17/16 at 08:00 Collagenase (Santyl) 1 applic DAILY TOP Last administered on 06/22/16 10:03; Admin Dose 1 APPLIC; Start 06/17/16 at 09:00 Collagenase (Santyl) 1 applic DAILY PRN TOP WOUND CARE; Start 06/17/16 at 09:00 Lactobacillus Acidophilus (Florajen3 Capsule) 1 each TID PEG Last administered on 06/22/16 10:03; Admin Dose 1 EACH; Start 06/17/16 at 13:30 KATHERYN LAWTON June 22, 2016 10:58
== END 2016-06-22 15:20 | DRG 393 ==
LOC: E/R 00:56 → TEL 05:35 → OBSVTOIN 06-17 15:42
PROVIDERS: ADMIT Internal Medicine; ATTEND Internal Medicine
PROC: 0DH67UZ Insertion of Feeding Device into Stomach, Via Natural or Artificial Opening (ICD-10-PCS; 2016-06-16)
PROC: 5A1955Z Respiratory Ventilation, Greater than 96 Consecutive Hours (ICD-10-PCS; principal; 2016-06-17)
DX: Z43.1 Encounter for attention to gastrostomy (principal); L89.154 Pressure ulcer of sacral region, stage 4; Z99.11 Dependence on respirator [ventilator] status; L89.221 Pressure ulcer of left hip, stage 1; J96.10 Chronic respiratory failure, unspecified whether with hypoxia or hypercapnia; J44.9 Chronic obstructive pulmonary disease, unspecified; K94.22 Gastrostomy infection; F03.90 Unspecified dementia, unspecified severity, without behavioral disturbance, psychotic disturbance, mood disturbance, and anxiety; G82.20 Paraplegia, unspecified; L03.311 Cellulitis of abdominal wall; Z93.0 Tracheostomy status; R13.10 Dysphagia, unspecified; Z66 Do not resuscitate; F10.20 Alcohol dependence, uncomplicated; Z74.01 Bed confinement status; F25.9 Schizoaffective disorder, unspecified; N40.0 Benign prostatic hyperplasia without lower urinary tract symptoms; I25.2 Old myocardial infarction; I48.91 Unspecified atrial fibrillation; Z87.891 Personal history of nicotine dependence; I11.9 Hypertensive heart disease without heart failure; F41.9 Anxiety disorder, unspecified; D63.8 Anemia in other chronic diseases classified elsewhere; Y83.8 Other surgical procedures as the cause of abnormal reaction of the patient, or of later complication, without mention of misadventure at the time of the procedure; Z87.01 Personal history of pneumonia (recurrent); G31.2 Degeneration of nervous system due to alcohol; L89.521 Pressure ulcer of left ankle, stage 1; L89.890 Pressure ulcer of other site, unstageable; Z78.1 Physical restraint status
CPT/HCPCS: 36600; 71010; 80048; 80053; 82803; 83690; 85025; 85610; 85730; 87040; 87081; 94002; 94003; 94640; G0378; C9113; J2060; J2270; J3480